=== PATIENT | female | born 1965 | race Caucasian/White ===

== ENCOUNTER 2020-07-22 09:35 | Outpatient (REF) | payer MEDICAID, SELFPAY ==
--- NOTE | 2020-07-22 09:40 | US_ITS ---
EXAMINATION: US DIAGNOSTIC ULTRASOUND BREAST, RIGHT CLINICAL INFORMATION: Reddish nipple discharge. COMPARISON: Mammography of same day. TECHNIQUE: Ultrasound of the breast is performed with real-time damon scale imaging and color Doppler. FINDINGS: Targeted ultrasound evaluation of the retroareolar region of the right breast did not demonstrate abnormal mass or region of distal sound shadowing. There are some prominent ducts present without abnormal filling defects. Results are discussed with the patient at time of visit. US/US breast RT limited IMPRESSION: 1. No suspicious mammographic or ultrasound findings to suggest malignancy. 2. Continued clinical follow up is recommended. ASSESSMENT: BI-RADS 1: Negative
--- NOTE | 2020-07-22 09:40 | MM_ITS ---
EXAMINATION: MM DIAGNOSTIC DIGITAL BREAST TOMOSYNTHESIS, BILATERAL US BREAST LIMITED, RIGHT CLINICAL INFORMATION: Bloody discharge from the right breast. Patient was questioned about her complaint and, even though the left breast was filled out on the question sheet, she repeatedly stated that it was the right breast that had the reddish discharge and not the left. She has stated that she has milky discharge bilaterally which has been for years. The lifetime risk of breast cancer based on the Tyrer-Cuzick Model is 4.4%. COMPARISON: Mammography: 07/10/2019 and studies dating back to 05/05/2011. TECHNIQUE: Digital breast tomosynthesis was performed in both the craniocaudal and mediolateral oblique views along with computer-aided detection (CAD). Synthesized 2D images were generated from the tomosynthesis. Targeted right breast ultrasound. FINDINGS: There are scattered areas of fibroglandular density (ACR BI-RADS breast composition Category b). There are no significant masses, abnormal calcifications, or other abnormalities. Targeted ultrasound evaluation of the retroareolar region of the right breast did not demonstrate abnormal mass or region of distal sound shadowing. There are some prominent ducts present without abnormal filling defects. Results are discussed with the patient at time of visit. MM/MM tomosynthesis diagnostic BI IMPRESSION: 1. No suspicious mammographic or ultrasound findings to suggest malignancy. 2. Continued clinical follow up is recommended. ASSESSMENT: BI-RADS 1: Negative RECOMMENDATION: 1. Patient should be managed based on the clinical impression. Decision to proceed with biopsy should be based on clinical grounds and degree of clinical concern. 2. Otherwise, routine annual screening mammography. This patient's information was entered into a reminder system with a target due date for their next mammogram.
== END 2020-07-22 09:36 | disposition home or self-care (01) ==
LOC: HO.MAMMO 09:35
PROVIDERS: Visit Provider General Practice
DX: N64.52 Nipple discharge (principal)
CPT/HCPCS: 76642; 77062; 77066

== ENCOUNTER → 2020-07-28 11:41 | Outpatient (BNVA) | payer MEDICAID, SELFPAY | PROVIDERS: PCP Internal Medicine; Visit Provider Urology | DX: Z76.89 Persons encountering health services in other specified circumstances (principal) ==

== ENCOUNTER 2020-08-10 14:03 | Outpatient (REF) | payer MEDICAID, SELFPAY ==
--- NOTE | 2020-08-10 14:06 | CT_ITS ---
EXAMINATION: CT ABDOMEN AND PELVIS WITHOUT CONTRAST CLINICAL INFORMATION: Renal stone. COMPARISON: Multiple priors, most recent renal ultrasound dated 03/12/2020. Most recent CT abdomen/pelvis dated 03/16/2019. TECHNIQUE: Multidetector volumetric imaging was performed from the superior aspect of the liver through the pubic symphysis. Sagittal and coronal reformatted images were obtained on the technologist's workstation. This CT examination was performed using dose optimization techniques as appropriate, variously including the following: *Automated exposure control *Adjustment of mA and/or kV according to patient size (this includes techniques or standardized protocols for targeted exams where dose is matched to indication/reason for exam; i.e. extremities or head) *Use of iterative reconstruction technique DLP: 457 mGy-cm FINDINGS: LUNG BASES: Right middle lobe 0.2 cm pulmonary nodule, likely present on the prior examination (axial image 11/19). The visualized lung bases are otherwise clear. LIVER, GALLBLADDER, AND BILIARY TREE: Mildly lobulated hepatic contour, unchanged. Findings can be seen in the setting of cirrhosis. Redemonstration of a subtle right hepatic hyperdensity (axial image ), poorly evaluated without IV contrast. No new hepatic parenchymal lesion or biliary ductal dilatation. Status post cholecystectomy. PANCREAS: Unremarkable. SPLEEN: Stable splenomegaly. Tiny parenchymal calcifications are unchanged. ADRENAL GLANDS: Unremarkable. KIDNEYS AND URETERS: The kidneys are normal in size, shape, and attenuation. Lower pole renal stone measuring 0.9 cm and 1582 Hounsfield units. This is located approximately 7.8 cm from the posterior axillary line and is not significantly changed when compared to the prior examination. There are additional bilateral 0.2 cm renal stones, similar when compared to the prior examination. No ureteral stone. No hydronephrosis or hydroureter. No perinephric stranding. BLADDER: Nondistended and unremarkable. No associated calcification. GASTROINTESTINAL TRACT: Scattered diverticula without evidence of acute diverticulitis. No bowel wall thickening or associated inflammatory change. No small or large bowel obstruction. Unremarkable appendix. ABDOMINAL WALL: No significant hernia is appreciated. LYMPH NODES: The previously seen periportal lymph node has slightly decreased in size now measuring approximately 1.7 x 0.8 cm (previously 2.1 x 0.8 cm). No new or increasing lymphadenopathy. VASCULAR: No abdominal aortic dilatation. Scattered atherosclerotic calcifications. PELVIC VISCERA: The uterus and adnexa are unremarkable. OSSEOUS STRUCTURES: Unremarkable. CT/CT abdomen pelvis wo con IMPRESSION: 1. Bilateral renal stones are redemonstrated with the largest again noted to be in the lower pole of the left kidney measuring up to 0.9 cm. No ureteral or urinary bladder stone. No hydronephrosis or hydroureter. No perinephric stranding. 2. Minimal diverticulosis without evidence of acute diverticulitis. 3. Hepatic cirrhosis. Stable hyperdense foci partially visualized within the right hepatic lobe. Ultrasound or MR imaging could help further evaluate. No new hepatic parenchymal lesion or biliary ductal dilatation. 4. Additional chronic findings are unchanged.
== END 2020-08-10 14:04 | disposition home or self-care (01) ==
LOC: HO.CT 14:03
PROVIDERS: Visit Provider Urology
DX: N20.0 Calculus of kidney (principal)
CPT/HCPCS: 74176

== ENCOUNTER → 2020-08-27 13:34 | Outpatient (BNVA) | payer MEDICAID, SELFPAY | PROVIDERS: PCP Family Medicine; Visit Provider Urology ==

== ENCOUNTER 2020-09-15 06:37 | Day surgery (SDC) | payer MEDICAID, SELFPAY ==
[2020-09-09 10:09] VITALS: BMI 29.2
--- NOTE | 2020-09-14 11:54 | HO.ANESPROP2 ---
Documented by User: Karmen Jossy 09/14/20 12:11 HPI - Anesthesia Eval Consult details Narrative: 55yo F for L ESWL No prev ESWL on record [facility] Active Problems Active Problems: All Active Problems (Updated 07/28/20 @ 13:25 by David Hawkins III, MD) Flank pain (Acute) Renal stones (Acute) Past Medical History Medical History Abdominal distension (gaseous) Anxiety Asthma Benign neoplasm of pituitary gland and craniopharyngeal duct Bipolar disorder Chronic hepatitis C without hepatic coma Cirrhosis Cirrhosis of liver without ascites Depression Diabetes mellitus, insulin dependent (IDDM), uncontrolled Flank pain GERD (gastroesophageal reflux disease) HTN (hypertension) Hyperlipidemia Kidney stone Mononeuritis Obese Other cirrhosis of liver Panic disorder Renal stones Rheumatoid arthritis Type 2 diabetes mellitus without complication Family History Family History Father No problems noted. Mother Diabetes mellitus Sister Diabetes mellitus Brother No problems noted. Paternal Uncle Colon cancer Surgical History Surgical History History of esophagogastroduodenoscopy (EGD) Hx of cholecystectomy Social History Social History Advance Directives Information Provided: No Meds Allergies Allergy/AdvReac Type Severity Reaction Status Date / Time No Known Allergies Allergy Mild NOT Verified 09/15/20 07:23 APPLICABLE Home Medications Medication Instructions Recorded Confirmed Last Taken Type albuterol sulfate 90 mcg/actuation 2 puff INHALATION Q6H PRN 07/28/20 09/09/20 Unknown History aerosol inhaler aspirin 81 mg tablet,delayed 81 mg PO DAILY 07/28/20 09/09/20 09/12/20 History release benzonatate 100 mg capsule 100 mg PO TID 07/28/20 09/09/20 Unknown History cyclobenzaprine 5 mg tablet 10 mg PO TID 07/28/20 09/09/20 Unknown History gabapentin 300 mg capsule 300 mg PO TID 07/28/20 09/09/20 Unknown History lisinopril 40 mg tablet 40 mg PO DAILY 07/28/20 09/09/20 Unknown History loperamide 2 mg tablet 2 mg PO Q6H PRN 07/28/20 09/09/20 Unknown History omeprazole 20 mg capsule,delayed 20 mg PO DAILY 07/28/20 09/09/20 Unknown History release simvastatin 20 mg tablet 20 mg PO DAILY 07/28/20 09/09/20 Unknown History trazodone 100 mg tablet 100 mg PO DAILY 07/28/20 09/09/20 Unknown History Exam Exam Date and Time: September 14, 2020 1154 Height,Weight and Vital Signs: Height 5 ft 2 in Weight 72.575 kg Narrative Narrative: Stress 01/2020 Nondiagnostic EKG d/t baseline abnormality MIBI shows shows nml perfusion without ischemia or infarction Gasted EF 68% during stress and rest Transient ischemic dilation not present Echo 12/2019 LVEF hyperdynamic, EF >70% Severely increased LV wall thickness Elevated filling pressures No signif valve or pericard pathology EKG 12/2019 SB @ 46 LVH with repol abn Assessment and Plan Assessment Anesthesia Assessment: Chart Reviewed Documented by User: Reshma Miller 09/15/20 08:49 PMFSH Past Medical History Medical History Abdominal distension (gaseous) Anxiety Asthma Benign neoplasm of pituitary gland and craniopharyngeal duct Bipolar disorder Chronic hepatitis C without hepatic coma Cirrhosis Cirrhosis of liver without ascites Depression Diabetes mellitus, insulin dependent (IDDM), uncontrolled Flank pain GERD (gastroesophageal reflux disease) HTN (hypertension) Hyperlipidemia Kidney stone Mononeuritis Obese Other cirrhosis of liver Panic disorder Renal stones Rheumatoid arthritis Type 2 diabetes mellitus without complication Family History Family History Father No problems noted. Mother Diabetes mellitus Sister Diabetes mellitus Brother No problems noted. Paternal Uncle Colon cancer Surgical History Surgical History History of esophagogastroduodenoscopy (EGD) Hx of cholecystectomy Social History Social History Advance Directives Information Provided: No Meds Allergies Allergy/AdvReac Type Severity Reaction Status Date / Time No Known Allergies Allergy Mild NOT Verified 09/15/20 07:23 APPLICABLE Home Medications Medication Instructions Recorded Confirmed Last Taken Type albuterol sulfate 90 mcg/actuation 2 puff INHALATION Q6H PRN 07/28/20 09/09/20 Unknown History aerosol inhaler aspirin 81 mg tablet,delayed 81 mg PO DAILY 07/28/20 09/09/20 09/12/20 History release benzonatate 100 mg capsule 100 mg PO TID 07/28/20 09/09/20 Unknown History cyclobenzaprine 5 mg tablet 10 mg PO TID 07/28/20 09/09/20 Unknown History gabapentin 300 mg capsule 300 mg PO TID 07/28/20 09/09/20 Unknown History lisinopril 40 mg tablet 40 mg PO DAILY 07/28/20 09/09/20 Unknown History loperamide 2 mg tablet 2 mg PO Q6H PRN 07/28/20 09/09/20 Unknown History omeprazole 20 mg capsule,delayed 20 mg PO DAILY 07/28/20 09/09/20 Unknown History release simvastatin 20 mg tablet 20 mg PO DAILY 07/28/20 09/09/20 Unknown History trazodone 100 mg tablet 100 mg PO DAILY 07/28/20 09/09/20 Unknown History Exam Airway Mallampati Class: II TM Dist: >3cm Neck ROM: Full Assessment and Plan Assessment Anesthesia Assessment: Anesthesia Plan Discussed and Chart Reviewed Final Anesthetic Review NPO: Yes ASA Class: III Final Preanesthetic Review: No Changes in Pt Med Stat, Meds/Allgs Chart Reviewed, Consent Obtained/Reviewed and Anes Risks/Benef Reviewed Patient Risk: Intermediate Procedure Risk: Low Assessment/Block/Sedation in SS: Assess/Block/Sedation-SS Anesthetic Plan Anesthetic Plan: MAC: Disposition: Standard PACU
--- NOTE | ~2020-09-15 | XR_ITS ---
EXAMINATION: XR ABDOMEN KUB CLINICAL INDICATION: Stones. COMPARISON: CT of 08/10/2020 TECHNIQUE: AP view of the abdomen. FINDINGS: The bowel gas pattern is normal with no evidence of ileus or obstruction. The bones are unremarkable. There is an approximately 9 x 7 mm calcification seen overlying the lower pole of the left kidney. Multiple vascular clips are seen about the mid right abdomen. No calcific densities are seen overlying the expected contour of the right kidney. Psoas margins are intact. No calculi seen along the expected paths of the ureters. XR/XR KUB IMPRESSION: Left nephrolithiasis without significant change.
[2020-09-15 07:17] LABS: Hematocrit 38.2 % (37-47); Mean Corpuscular Hemoglobin 28.3 pg (27.0-33.0); Mean Platelet Volume 9.9 fL (9.4-12.3); Platelet Count 157 X10*3/uL (160-400); Red Cell Distribution Width 12.7 % (11.0-16.0); White Blood Count 6.6 X10*3/uL (4.8-10.8)
[2020-09-15 07:22] LABS: Prothrombin Time 12.1 SEC (10.8-13.0)
[2020-09-15 07:24] LABS: Glucose, Whole Blood 117 mg/dL (60-115)
[2020-09-15 07:26] VITALS: BP 150/90; PULSE 53; RESP 16; TEMP 36.6; O2SAT 97
[2020-09-15] MEDS: Lactated Ringers 1,000 ML 100 ML IVCONT (07:50)
[2020-09-15 07:54] LABS: Alanine Aminotransferase 80 U/L (0-31); Albumin Level 4.1 g/dL (3.5-5.0); Alkaline Phosphatase 151 U/L (39-117); Anion Gap 10 (12-20); Aspartate Amino Transferase 62 U/L (5-31); Bilirubin Total 0.6 mg/dL (0.0-1.0); Blood Urea Nitrogen 12 mg/dL (9-16); Carbon Dioxide 27 mmol/L (22-29); Chloride 107 mmol/L (96-108); Creatinine Clr Calc Pharmacy 54.6; Estimated Glomerular Filt Rate 53; Glucose Fasting 114 mg/dL (60-99); Potassium 3.6 mmol/L (3.3-5.1); Sodium 140 mmol/L (135-145); Total Protein 7.4 g/dL (6.5-8.0)
--- NOTE | 2020-09-15 08:41 | MHC.SHP ---
Pre-Procedural Eval Section A The patient is an INPATIENT: No Changes since office visit: No Cold of Flu in the past 2 weeks, No New Medical Problems, No Changes in Medication and No Patient answered all questions The History & Physical has been completed within 30 days and I have reviewed it.: Yes Section B Chief Complaint: calculus of kidney Allergies: Allergies Allergy/AdvReac Type Severity Reaction Status Date / Time No Known Allergies Allergy Mild NOT Verified 09/15/20 07:23 APPLICABLE Plan Diagnosis/Plan: Unchanged I have reviewed the history and physical and performed a pertinent physical examination on my patient. No changes have occurred unless specified. Left ESWLl
--- NOTE | 2020-09-15 08:44 | PM.OP ---
Brief Operative Note Date of Service: 09/15/20 Pre-op diagnosis: left renal stone 9mm Post-op diagnosis: same Procedure: left ESWL Surgeon: Lee Hubbard MD Anesthesia: MAC Estimated blood loss (mL): 0 Pathology: none sent Condition: stable Disposition: same day
--- NOTE | 2020-09-15 08:54 | W.PM.OPN ---
Operative Note Operative Note Date of Service: 09/15/20 Narrative: PreOperative Diagnosis: left Renal stones Post Operative Diagnosis: left Renal stones Procedure: left ESWL Surgeon: Dr Lee Hubbard Anesthesia: mac/sedation Indications for procedure: They understand ESWL may be a staged procedure and subsequent intervention may be required based on imaging after ESWL. They also understand there is a risk of bleeding, infection, damage to adjacent organs. 9mm left lower pole Procedure: After informed consent was verified the patient was brought to the operating room and placed in a supine position. Anesthesia was performed per protocol. Safety pause time-out was performed. Imaging was in the room and laterality confirmed. ESWL was performed. The 1st 500 shocks were performed at 60 hertz. These were performed with increasing power. Once maximum power was reached the rate was increased to 180 hertz. A total of 2500 shocks were given. Fluoroscopy showed stone disintegration. They tolerated procedure well and was transferred to the recovery area upon completion.
[2020-09-15 09:12] VITALS: BP 140/68; PULSE 75; RESP 16; TEMP 36.1; O2SAT 98
[2020-09-15 09:27] VITALS: BP 138/83; PULSE 65; RESP 18; TEMP 36.6; O2SAT 99
[2020-09-15] MEDS: Phenazopyridine HCL 100 MG TABLET PO (09:41)
--- NOTE | 2020-09-15 10:07 | HO.POSTANES ---
Post Anesthesia Evaluation Post Anesthesia Evaluation Vital Signs: Vital Signs Temp Pulse Resp BP Pulse Ox 09/15/20 09:27 97.8 F 65 18 138/83 99 09/15/20 09:12 97.0 F 75 16 140/68 H 98 09/15/20 07:26 97.8 F 53 16 150/90 H 97 Anesthesia: Monitored Mental Status: Awake Pain Control: Satisfactory Nausea/Vomiting: None Hydration: Adequate Anesthesia-Related Issues: No Anes. Related Issues
== END 2020-09-15 10:33 | disposition home or self-care (01) ==
PROVIDERS: Nurse Practitioner; Visit Provider Urology
PROC: (CPT 50590; principal; 2020-09-15 08:40)
DX: N20.0 Calculus of kidney (principal); I10 Essential (primary) hypertension; E11.9 Type 2 diabetes mellitus without complications; Z79.4 Long term (current) use of insulin; Z79.82 Long term (current) use of aspirin; Z79.899 Other long term (current) drug therapy
CPT/HCPCS: 50590; 36415; 74018; 80053; 82947; 85027; 85610; J1885; J2405; J3010

== ENCOUNTER 2020-10-03 12:38 | Emergency (ER) | payer MEDICAID, SELFPAY ==
--- NOTE | ~2020-10-03 | CT_ITS ---
EXAMINATION: CT ABDOMEN AND PELVIS WITHOUT CONTRAST CLINICAL INFORMATION: Right flank pain. Status post lithotripsy left side COMPARISON: CT abdomen and pelvis 08/10/2020 TECHNIQUE: Multidetector volumetric imaging was performed from the superior aspect of the liver through the pubic symphysis. Sagittal and coronal reformatted images were obtained on the technologist's workstation. This CT examination was performed using dose optimization techniques as appropriate, variously including the following: *Automated exposure control *Adjustment of mA and/or kV according to patient size (this includes techniques or standardized protocols for targeted exams where dose is matched to indication/reason for exam; i.e. extremities or head) *Use of iterative reconstruction technique DLP: 535 mGy-cm FINDINGS: LUNG BASES: The visualized lung bases are unremarkable. There is mild right para cardiac lymph nodes, nonspecific. LIVER, GALLBLADDER, AND BILIARY TREE: The liver is normal in size, lobulated contour, and normal attenuation. No focal hepatic lesion or biliary ductal dilatation is present. The gallbladder has been surgically removed. PANCREAS: Unremarkable. SPLEEN: The spleen is unremarkable with small accessory splenule at the hilum. ADRENAL GLANDS: Unremarkable. KIDNEYS AND URETERS: The kidneys are normal in size, shape, and attenuation. There is a 1.1 cm nonobstructing radiopaque calculi lower pole calyx left kidney. No additional radiopaque calculi seen. There is no hydronephrosis. BLADDER: The bladder is nondistended with mild anterior bladder wall thickening. GASTROINTESTINAL TRACT: There is scattered stool, gas seen throughout the colon without any distention. The small bowel loops are normal caliber. Appendix is normal. There is no evidence of free fluid. No free air seen. ABDOMINAL WALL: No significant hernia is appreciated. LYMPH NODES: Normal. VASCULAR: Unremarkable. PELVIC VISCERA: The uterus is anteverted and appears unremarkable. No adnexal mass seen. There is no free fluid OSSEOUS STRUCTURES: Mild ventral spondylosis lumbar spine. No lytic or sclerotic process seen. CT/CT abdomen pelvis wo con IMPRESSION: 1.1 cm nonobstructing radiopaque calculi lower pole left kidney. There is no caliectasis or hydronephrosis. Gallbladder has been surgically removed. Mild constipation. Normal appendix.
[2020-10-03 12:41] VITALS: BP 166/68; PULSE 50; RESP 16; TEMP 36.8; BMI 29.9
--- NOTE | 2020-10-03 13:08 | ED_ITS ---
HPI - General Adult General Chief complaint: Back Pain/Injury Stated complaint: left flank pain Time Seen by Provider: 10/03/20 12:54 Source: patient Mode of arrival: ambulatory Limitations: no limitations History of Present Illness HPI narrative: Patient comes emergency room complaining of right-sided flank/back pain. Patient states it has been ongoing since the beginning of August. Patient states that on September 14 she had an ESWL on the left side by Dr. Hubbard. Patient has no pain on the left side, however she continues having pain on the right side. Patient denies fever, no chills, no dysuria or hematuria. Patient states the pain is worse, unrelated to movement, nonradiating. Patient states the pain has not changed since the beginning of August, has not gotten any worse or improved. Related Data Home Medications Medication Instructions Recorded Confirmed albuterol sulfate 90 mcg/actuation 2 puff INHALATION Q6H PRN 07/28/20 09/09/20 aerosol inhaler aspirin 81 mg tablet,delayed 81 mg PO DAILY 07/28/20 09/09/20 release benzonatate 100 mg capsule 100 mg PO TID 07/28/20 09/09/20 cyclobenzaprine 5 mg tablet 10 mg PO TID 07/28/20 09/09/20 gabapentin 300 mg capsule 300 mg PO TID 07/28/20 09/09/20 lisinopril 40 mg tablet 40 mg PO DAILY 07/28/20 09/09/20 loperamide 2 mg tablet 2 mg PO Q6H PRN 07/28/20 09/09/20 omeprazole 20 mg capsule,delayed 20 mg PO DAILY 07/28/20 09/09/20 release simvastatin 20 mg tablet 20 mg PO DAILY 07/28/20 09/09/20 trazodone 100 mg tablet 100 mg PO DAILY 07/28/20 09/09/20 Previous Rx's Medication Instructions Recorded tamsulosin 0.4 mg PO BEDTIME #14 cap 09/15/20 tramadol 50 mg PO Q6H PRN #14 tab 09/15/20 cyclobenzaprine 5 mg PO BEDTIME PRN #10 tab 10/03/20 ibuprofen 600 mg PO TID PRN #14 tab 10/03/20 Allergies Allergy/AdvReac Type Severity Reaction Status Date / Time No Known Allergies Allergy Mild NOT Verified 09/15/20 07:23 APPLICABLE Review of Systems Review of Systems: Constitutional : No Weight loss, No Fever, No Chills, No Night Sweats, No Fatigue, No Malaise ENT/Mouth : No Hearing loss, No Ear Pain, No Nasal Congestion, No Sinus Pain, No Hoarseness, No sore throat, No Rhinorrhea, No Swallowing Difficulty Eyes: No Eye Pain, No Swelling, No Redness, No Foreign Body, No Discharge, No Vision Changes Cardiovascular : No Chest Pain, No SOB, No Dyspnea on Exertion, No Orthopnea, No Edema, No Palpitations Respiratory : No Cough, No Sputum, No Wheezing, No Smoke Exposure, No Dyspnea Gastrointestinal : No Nausea, No Vomiting, No Diarrhea, No Constipation, No abdominal Pain, No Hematochezia, No Melena, complaining of right flank pain Genitourinary : no irregular bleeding, No Dysuria, No Urinary Frequency, No Hematuria, No Urinary Incontinence, No Urgency, No Flank Pain, No Urinary Flow Changes, No Hesitancy Musculoskeletal : No joint pain, complaining of right-sided back pain Skin : No Skin Lesions, No rash Neuro : No Weakness, No Numbness, No Paresthesias, No Loss of Consciousness, No Dizziness, No Headache Psych : No Anxiety/Panic, No Depression, No SI/HI/AH/VH, No Social Issues, Heme/Lymph: No Bruising, No Bleeding,No Lymphadenopathy Endocrine : No Polyuria, No Polydipsia, No Temperature Intolerance [facility] Past Medical History Medical History Abdominal distension (gaseous) Anxiety Asthma Benign neoplasm of pituitary gland and craniopharyngeal duct Bipolar disorder Chronic hepatitis C without hepatic coma Cirrhosis Cirrhosis of liver without ascites Depression Diabetes mellitus, insulin dependent (IDDM), uncontrolled Flank pain GERD (gastroesophageal reflux disease) HTN (hypertension) Hyperlipidemia Kidney stone Mononeuritis Obese Other cirrhosis of liver Panic disorder Renal stones Rheumatoid arthritis Type 2 diabetes mellitus without complication Surgical History History of esophagogastroduodenoscopy (EGD) Hx of cholecystectomy Family History Family History Father No problems noted. Mother Diabetes mellitus Sister Diabetes mellitus Brother No problems noted. Paternal Uncle Colon cancer Social History Social History Advance Directives: No Advance Directives Information Provided: No Physical Exam Vital Signs: Vital Signs: Last Vital Signs Temp 98.2 F 10/03/20 12:41 Pulse 48 L 10/03/20 15:14 Resp 16 10/03/20 15:14 BP 174/97 H 10/03/20 15:14 Pulse Ox 97 10/03/20 15:14 Body Mass Index 29.9 Appearance: Alert. Oriented X3. No acute distress. Eyes: Pupils equal, round and reactive to light. ENT: Pharynx normal. Neck: Normal inspection. Neck supple. No lymph nodes noted. No crepitus CVS: Normal heart rate and rhythm. Pulses normal. Normal S1 and S2 Respiratory: No respiratory distress. Breath sounds normal. No Wheezing. No rales Abdomen: Soft and nontender. No rigidity. No distention. good BS x4 Back: Patient able to flex and extend back, pain does not worsen. Negative CVA tenderness Skin: Skin warm and dry. Normal skin color. Normal skin turgor. Extremities: No lower extremity edema. No lower extremity edema. No Lacerations. No Rash Neuro: Oriented X 3. No motor deficit. No sensory deficit. Moving all extermities. No slurred speech. Course Course Course Narrative: I discussed the labs and CT with the patient, it is possible that the patient's source of back pain on the right side is musculoskeletal. I discussed with the patient that she has a 1.1 cm nonobstructing stone in the left kidney, unlikely to be a source of pain Medical Decision Making Lab Data Result diagrams: 10/03/20 13:18 10/03/20 13:18 Labs: Lab Results 10/03/20 10/03/20 10/03/20 Range/Units 13:18 13:18 13:18 WBC 5.5 (4.8-10.8) X10*3/uL RBC 4.53 (4.20-5.50) X10*6/uL Hgb 12.7 (12.0-16.0) g/dl Hct 38.3 (37-47) % MCV 84.5 (80-98) fL MCH 28.0 (27.0-33.0) pg MCHC 33.2 (31.0-35.0) g/dl RDW 12.6 (11.0-16.0) % Plt Count 169 (160-400) X10*3/uL MPV 10.5 (9.4-12.3) fL Immature Gran % (Auto) 0.2 (0.0-0.4) % Neut % (Auto) 47.9 (45-73) % Lymph % (Auto) 39.0 (20-40) % Hale % (Auto) 10.3 (2-11) % Eos % (Auto) 2.2 (0-4) % Baso % (Auto) 0.4 (0-2) % Lymph # (Auto) 2.1 (1.2-4.9) X10*3/uL Hale # (Auto) 0.6 (0.1-1.2) X10*3/uL Eos # (Auto) 0.1 (0.0-0.4) X10*3/uL Baso # (Auto) 0.0 (0.0-0.2) X10*3/uL Abs Immat Gran (auto) 0.01 (0.00-0.03) X10*3/uL Absolute Neuts (auto) 2.6 (2.0-8.3) X10*3/uL Absolute Nucleated RBC 0.000 (0.0-0.012) X10*3/uL Nucleated RBC % (auto) 0.0 (0.0-0.2) /100WBC Sodium 139 (135-145) mmol/L Potassium 4.1 (3.3-5.1) mmol/L Chloride 105 (96-108) mmol/L Carbon Dioxide 28 (22-29) mmol/L Anion Gap 10 L (12-20) BUN 19 H D (9-16) mg/dL Creatinine 1.19 (0.5-1.4) mg/dL Estim Creat Clear Calc 51.1 Estimated GFR 47 Random Glucose 256 H (60-115) mg/dL Calcium 9.0 (8.4-10.2) mg/dL Urine Color YELLOW Urine Appearance HAZY Urine pH 5.5 (5.0-8.0) Ur Specific [place] >= 1.030 H (1.005-1.025) Urine Protein NEG (NEG-TRACE) MG/DL Urine Glucose (UA) NEG (NEG) MG/DL Urine Ketones NEG (NEG) MG/DL Urine Blood NEG (NEG) Urine Nitrite NEG (NEG) Ur Leukocyte Esterase 1+ H (NEG) Urine RBC 0-2 (0) /HPF Urine WBC 1-4 (0-4) /HPF Ur Squamous Epith Cells 4+ /LPF Ur Renal Epithelial Cell 2+ /LPF Urine Bacteria NONE /LPF Imaging Data CT scan - abdomen: Radiologist's impression: FINDINGS: LUNG BASES: The visualized lung bases are unremarkable. There is mild right para cardiac lymph nodes, nonspecific. LIVER, GALLBLADDER, AND BILIARY TREE: The liver is normal in size, lobulated contour, and normal attenuation. No focal hepatic lesion or biliary ductal dilatation is present. The gallbladder has been surgically removed. PANCREAS: Unremarkable. SPLEEN: The spleen is unremarkable with small accessory splenule at the hilum. ADRENAL GLANDS: Unremarkable. KIDNEYS AND URETERS: The kidneys are normal in size, shape, and attenuation. There is a 1.1 cm nonobstructing radiopaque calculi lower pole calyx left kidney. No additional radiopaque calculi seen. There is no hydronephrosis. BLADDER: The bladder is nondistended with mild anterior bladder wall thickening. GASTROINTESTINAL TRACT: There is scattered stool, gas seen throughout the colon without any distention. The small bowel loops are normal caliber. Appendix is normal. There is no evidence of free fluid. No free air seen. ABDOMINAL WALL: No significant hernia is appreciated. LYMPH NODES: Normal. VASCULAR: Unremarkable. PELVIC VISCERA: The uterus is anteverted and appears unremarkable. No adnexal mass seen. There is no free fluid OSSEOUS STRUCTURES: Mild ventral spondylosis lumbar spine. No lytic or sclerotic process seen. CT/CT abdomen pelvis wo con IMPRESSION: 1.1 cm nonobstructing radiopaque calculi lower pole left kidney. There is no caliectasis or hydronephrosis. Gallbladder has been surgically removed. Mild constipation. Normal appendix. Discharge Plan Discharge Clinical Impression: Chronic back pain Qualifiers: Back pain location: low back pain Back pain laterality: right Sciatica presence: without sciatica Qualified Code(s): M54.5 - Low back pain Patient Disposition: Home, Self-Care Instructions: Chronic Back Pain (DC), Lower Back Exercises (ED) Additional Instructions: Please follow-up with your primary care physician tomorrow. If you have any worsening or new symptoms, please return to the emergency room or call 911 Prescriptions: New cyclobenzaprine 5 mg tablet 5 mg PO BEDTIME PRN (Reason: muscle spasm) Qty: 10 RF: 0 ibuprofen 600 mg tablet 600 mg PO TID PRN (Reason: pain) Qty: 14 RF: 0 No Action tramadol 50 mg tablet 50 mg PO Q6H PRN (Reason: pain) Qty: 14 RF: 0 tamsulosin 0.4 mg capsule 0.4 mg PO BEDTIME Qty: 14 RF: 0 cyclobenzaprine 5 mg tablet 10 mg PO TID RF: 0 albuterol sulfate [Ventolin HFA] 90 mcg/actuation HFA aerosol inhaler 2 puff inhalation Q6H PRN (Reason: Shortness Of Breath) RF: 0 loperamide [Imodium A-D] 2 mg tablet 2 mg PO Q6H PRN (Reason: Loose Stool) RF: 0 benzonatate [Tessalon Perles] 100 mg capsule 100 mg PO TID RF: 0 gabapentin 300 mg capsule 300 mg PO TID RF: 0 simvastatin 20 mg tablet 20 mg PO DAILY RF: 0 trazodone 100 mg tablet 100 mg PO DAILY RF: 0 omeprazole 20 mg capsule,delayed release(DR/EC) 20 mg PO DAILY RF: 0 lisinopril 40 mg tablet 40 mg PO DAILY RF: 0 aspirin [Adult Low Dose Aspirin] 81 mg tablet,delayed release (DR/EC) 81 mg PO DAILY RF: 0
[2020-10-03 13:24] LABS: MANUAL DIFF FLAG NO
[2020-10-03 13:25] LABS: Glucose Urine UA NEG (NEG); Leukocyte Esterase Urine 1+ (NEG); Nitrite Urine NEG (NEG); PH 5.5 (5.0-8.0); Specific Gravity - Urine >= 1.030 (1.005-1.025); UACC Culture Trigger YES; Urine Blood NEG (NEG); Urine Ketones NEG (NEG); Urine Protein NEG (NEG-TRACE)
[2020-10-03 13:26] LABS: Basophils Percent Auto 0.4 % (0-2); Eosinophils Absolute Auto 0.1 X10*3/uL (0.0-0.4); Eosinophils Percent Auto 2.2 % (0-4); Hematocrit 38.3 % (37-47); Hemoglobin 12.7 g/dl (12.0-16.0); Imm Gran Abs Auto 0.01 X10*3/uL (0.00-0.03); Imm Gran Pct Auto 0.2 % (0.0-0.4); Lymphocytes Absolute Auto 2.1 X10*3/uL (1.2-4.9); Mean Corpuscular HGB Conc 33.2 g/dl (31.0-35.0); Mean Corpuscular Volume 84.5 fL (80-98); Mean Platelet Volume 10.5 fL (9.4-12.3); Monocytes Absolute Auto 0.6 X10*3/uL (0.1-1.2); Monocytes Percent Auto 10.3 % (2-11); Neutrophils Absolute Auto 2.6 X10*3/uL (2.0-8.3); Neutrophils Percent Auto 47.9 % (45-73); Platelet Count 169 X10*3/uL (160-400); Red Blood Count 4.53 X10*6/uL (4.20-5.50); Red Cell Distribution Width 12.6 % (11.0-16.0); White Blood Count 5.5 X10*3/uL (4.8-10.8)
[2020-10-03 13:42] LABS: Appearance Urine HAZY; Color Urine YELLOW
[2020-10-03 13:47] LABS: Anion Gap 10 (12-20); Blood Urea Nitrogen 19 mg/dL (9-16); Carbon Dioxide 28 mmol/L (22-29); Chloride 105 mmol/L (96-108); Creatinine Clr Calc Pharmacy 51.1; Estimated Glomerular Filt Rate 47; Glucose Random 256 mg/dL (60-115); Potassium 4.1 mmol/L (3.3-5.1); Sodium 139 mmol/L (135-145)
[2020-10-03 14:05] LABS: RBC Urine 0-2 /HPF (0); Renal Epithelial Cells Urine 2+ /LPF; Squamous Epithelial Cell Urine 4+ /LPF
[2020-10-03 15:14] VITALS: BP 174/97; PULSE 48; RESP 16; O2SAT 97
== END 2020-10-03 16:05 | disposition home or self-care (01) ==
PROVIDERS: Emergency Provider Emergency Medicine
DX: R10.9 Unspecified abdominal pain (principal); K59.00 Constipation, unspecified; M54.5 Low back pain; Z79.899 Other long term (current) drug therapy
CPT/HCPCS: 36415; 74176; 80048; 81001; 81003; 85025; 87086; 96374; 99283; 99284

== ENCOUNTER 2020-10-06 13:03 | Outpatient (REF) | payer MEDICAID, SELFPAY ==
[2020-10-06 14:53] LABS: Alanine Aminotransferase 78 U/L (0-31); Albumin Level 4.3 g/dL (3.5-5.0); Alkaline Phosphatase 137 U/L (39-117); Aspartate Amino Transferase 59 U/L (5-31); Bilirubin Direct 0.2 mg/dL (0.0-0.5); Bilirubin Total 0.4 mg/dL (0.0-1.0); Total Protein 7.6 g/dL (6.5-8.0)
[2020-10-07 05:08] LABS: HBS Num1 29.26 mIU/mL (0-7.99); HBc Num1 0.32 S/CO (0.00-0.79); HIV AB/AG Nonreactive (Nonreactive); HIV Num 1 0.08 S/CO (0.00-0.99); Hepatitis B Core Antibody Nonreactive (Nonreactive); ~Hepatitis B Surface Antibody REACTIVE (Nonreactive)
[2020-10-07 05:14] LABS: Hepatitis B Surface Antigen Negative (Negative)
[2020-10-08 04:42] LABS: Hepatitis A Antibody IgG REACTIVE (Nonreactive); ~Hepatitis A Antibody IgG 8.71 S/CO (0.00-0.99)
[2020-10-08 07:57] LABS: HCV RNA PCR Qn 1390000 IU/mL (NOT DETECTED); HCV RNA PCR Qn 6.14 Log IU/mL (NOT DETECTED)
[2020-10-10 11:21] LABS: FIB-ALT 71 U/L (6-29); FIB-Alpha-2-Macroglobulin 216 mg/dL (106-279); FIB-Apolipoprotein A1 168 mg/dL (101-198); FIB-GGT 68 U/L (3-70); FIB-Haptoglobin <8 mg/dL (43-212); FIB-Total Bilirubin 0.4 mg/dL (0.2-1.2); Liver Fibrosis Score 0.59; Liver Fibrosis Stage F3; Nec Inflam Act Grade A2; Nec Inflam Act Score 0.54
[2020-10-13 09:47] LABS: HCV Genotype LiPA 1a
== END 2020-10-06 13:04 | disposition home or self-care (01) ==
LOC: HO.LAB 13:03
PROVIDERS: Visit Provider Internal Medicine
DX: B18.2 Chronic viral hepatitis C (principal)
CPT/HCPCS: 36415; 80076; 81596; 86704; 86706; 86708; 87340; 87389; 87902; 99202

== ENCOUNTER → 2020-10-07 09:28 | Outpatient (BNVA) | payer MEDICAID, SELFPAY | PROVIDERS: Visit Provider Urology | DX: N20.0 Calculus of kidney (principal) | CPT/HCPCS: 99212 ==

== ENCOUNTER → 2020-10-25 09:37 | Day surgery (SDC) | payer MEDICAID, SELFPAY ==
[2020-10-19 11:23] VITALS: BMI 29.9
[2020-10-25 10:44] LABS: Glucose, Whole Blood 146 mg/dL (60-115)
--- NOTE | 2020-10-25 10:47 | P.CONAN_ITS ---
HPI - Anesthesia Eval Consult details Narrative: 55 F p/f urinary stent laser lithotripsy. controlled asthma PMFSH Active Problems Active Problems: All Active Problems (Updated 10/06/20 @ 15:24 by April Michele MD) Hepatitis C (Acute) Flank pain (Acute) Renal stones (Acute) Past Medical History Medical History Abdominal distension (gaseous) Anxiety Asthma Benign neoplasm of pituitary gland and craniopharyngeal duct Bipolar disorder Chronic hepatitis C without hepatic coma Cirrhosis Cirrhosis of liver without ascites Depression Diabetes mellitus, insulin dependent (IDDM), uncontrolled Flank pain GERD (gastroesophageal reflux disease) Hepatitis C HTN (hypertension) Hyperlipidemia Kidney stone Mononeuritis Obese Other cirrhosis of liver Panic disorder Renal stones Rheumatoid arthritis Type 2 diabetes mellitus without complication Family History Family History Father No problems noted. Mother Diabetes mellitus Sister Diabetes mellitus Brother No problems noted. Paternal Uncle Colon cancer Surgical History Surgical History History of esophagogastroduodenoscopy (EGD) Hx of cholecystectomy Hx of lithotripsy Social History Social History Smoking Status: Current every day smoker Cigarettes Per Day: 2 Use of substances other than those prescribed or required for medical reasons: No Advance Directives: No Advance Directives Information Provided: No Advance Directives on File: No Meds Allergies Allergy/AdvReac Type Severity Reaction Status Date / Time No Known Allergies Allergy Mild NOT Verified 10/19/20 11:23 APPLICABLE Active Medications: Current Medications Generic Name Dose Route Start Last Admin Trade Name Freq PRN Reason Stop Dose Admin Lactated Ringer's 1,000 mls @ 50 mls/hr 10/25/20 07:30 Lr IV .Q20H [facility] Home Medications Medication Instructions Recorded Confirmed Last Taken Type albuterol sulfate 90 mcg/actuation 2 puff INHALATION Q6H PRN 07/28/20 10/19/20 Unknown History aerosol inhaler aspirin 81 mg tablet,delayed 81 mg PO DAILY 07/28/20 10/19/20 09/12/20 History release benzonatate 100 mg capsule 100 mg PO TID 07/28/20 10/19/20 Unknown History cyclobenzaprine 5 mg tablet 10 mg PO TID PRN 07/28/20 10/19/20 Unknown History gabapentin 300 mg capsule 300 mg PO TID 07/28/20 10/19/20 Unknown History lisinopril 40 mg tablet 40 mg PO DAILY 07/28/20 10/19/20 Unknown History loperamide 2 mg tablet 2 mg PO Q6H PRN 07/28/20 10/19/20 Unknown History omeprazole 20 mg capsule,delayed 20 mg PO DAILY 07/28/20 10/19/20 Unknown History release simvastatin 20 mg tablet 20 mg PO DAILY 07/28/20 10/19/20 Unknown History trazodone 100 mg tablet 100 mg PO DAILY 07/28/20 10/19/20 Unknown History amlodipine 1 tab PO QAM 10/19/20 10/19/20 Unknown History fluticasone propionate [Flovent 1 puff PO BID 10/19/20 10/19/20 Unknown History HFA] insulin glargine [Lantus U-100 60 unit SUBCUT BEDTIME 10/19/20 10/19/20 Unknown History Insulin] insulin lispro [Humalog U-100 20 unit SUBCUT TIDAC 10/19/20 10/19/20 Unknown History Insulin] insulin lispro [Humalog U-100 SUBCUT 10/19/20 Unknown History Insulin] Exam Exam Date and Time: October 25, 2020 1047 Height,Weight and Vital Signs: Height 5 ft 3 in Weight 76.657 kg Pertinent Lab Results Pertinent Lab Results: Laboratory Tests 10/25/20 10:40 POC Glucose 146 H Airway Mallampati Class: II TM Dist: >3cm Loose/Missing/Broken Teeth: Yes (multiple missing and decayed teeth pending extraction; poor dentition) Heart: RRR Lungs: Apical wheezing Assessment and Plan Assessment Anesthesia Assessment: Anesthesia Plan Discussed and Chart Reviewed Final Anesthetic Review NPO: Yes ASA Class: III Final Preanesthetic Review: No Changes in Pt Med Stat, Meds/Allgs Chart Reviewed, Consent Obtained/Reviewed and Anes Risks/Benef Reviewed (dental injury, asthma exacerbation) Patient Risk: Intermediate Procedure Risk: Low Anesthetic Plan Anesthetic Plan: GA Disposition: Standard PACU
[2020-10-25 10:51] VITALS: BP 159/79; PULSE 73; RESP 16; TEMP 36.8; O2SAT 96
--- NOTE | 2020-10-25 11:22 | PC.NURSE ---
Addendum entered by Margret Velásquez RN 10/25/20 11:23: PVCS. Original Note: SR ON MONITOR.
[2020-10-25] MEDS: levoFLOXacin 500 MG TABLET PO (11:26)
[2020-10-25] MEDS: Lactated Ringers 1,000 ML 50 ML IV (11:27)
[2020-10-25 12:28] LABS: Glucose, Whole Blood 139 mg/dL (60-115)
== END | disposition home or self-care (01) ==
PROVIDERS: Visit Provider Urology
DX: N20.0 Calculus of kidney (principal); Z53.8 Procedure and treatment not carried out for other reasons; E11.9 Type 2 diabetes mellitus without complications; I10 Essential (primary) hypertension
CPT/HCPCS: 82947; J1100; J2405

== ENCOUNTER → 2020-10-26 10:25 | Outpatient (BNVA) | payer MEDICAID, SELFPAY | PROVIDERS: PCP Family Medicine; Visit Provider Nurse Practitioner Family ==

== ENCOUNTER 2020-10-27 10:15 | Outpatient (REF) | payer MEDICAID, SELFPAY ==
--- NOTE | ~2020-10-27 | US_ITS ---
EXAMINATION: US ABDOMEN COMPLETE CLINICAL INFORMATION: Unspecified viral hepatitis C. COMPARISON: CT abdomen pelvis 10/03/2020. X-ray KUB 09/15/2020. Ultrasound renals 03/12/2020 and 10/02/2019. TECHNIQUE: Real-time imaging of the abdominal viscera. FINDINGS: PANCREAS: Normal. ABDOMINAL AORTA: The proximal, mid, and distal segments are normal in caliber. INFERIOR VENA CAVA: Visualized portions are normal. LIVER: Liver measures 16.5 cm in length. The liver is enlarged. The liver contour is normal. There is increased liver echogenicity with mild nodularity. No focal hepatic lesion. There is no intrahepatic biliary duct dilatation seen. GALLBLADDER: Surgically absent. COMMON BILE DUCT: Normal in caliber measuring 1.03 cm in diameter. RIGHT KIDNEY: Normal. No hydronephrosis. No renal calculi or focal parenchymal lesions. The kidney measures 9.4 cm in maximum dimension. LEFT KIDNEY: There are several echogenic stones. Lower pole stone measures 0.60 x 0.45 x 0.53 cm. Two midpole echogenic stones measure 0.2 x 0.21 x 0.20 cm and 0.18 x 0.20 x 0.1 cm. There is no caliectasis or hydronephrosis. No focal parenchymal lesions. The kidney measures 10.6 cm in maximum dimension. SPLEEN: Normal. The spleen measures 11.7 cm in maximum dimension. FREE FLUID: None. US/US abdomen complete IMPRESSION: Three echogenic nonobstructive stones left kidney. Hepatic steatosis with nodular appearance and mild hepatomegaly most suggestive of cirrhosis. Similar findings were seen on the previous ultrasound exam 12/10/2013.
== END 2020-10-27 10:16 | disposition home or self-care (01) ==
LOC: HO.US 10:15
PROVIDERS: Visit Provider Internal Medicine
DX: B19.20 Unspecified viral hepatitis C without hepatic coma (principal)
CPT/HCPCS: 76700

== ENCOUNTER 2020-10-27 10:51 | Emergency (ER) | payer MEDICAID, SELFPAY ==
--- NOTE | ~2020-10-27 | XR_ITS ---
EXAMINATION: XR CHEST CLINICAL INFORMATION: Chest pain and cough COMPARISON: Previous chest x-ray December 2019 TECHNIQUE: Frontal view of the chest was obtained. FINDINGS: The cardiac and mediastinal contours are normal. The lungs are clear. There is no pleural effusion or pneumothorax. There are degenerative changes of the spine. XR/XR chest 1V IMPRESSION: No evidence for acute disease in the chest.
[2020-10-27 11:18] VITALS: BP 175/104; PULSE 58; RESP 19; TEMP 36.6; O2SAT 98; BMI 30.1
--- NOTE | 2020-10-27 11:27 | ECG_ITS ---
Test Reason : CHEST PAIN Blood Pressure : / mmHG Vent. Rate : 056 BPM Atrial Rate : 056 BPM P-R Int : 144 ms QRS Dur : 090 ms QT Int : 442 ms P-R-T Axes : 030 -23 143 degrees QTc Int : 426 ms Sinus bradycardia with occasional Premature ventricular complexes Left ventricular hypertrophy with repolarization abnormality Cannot rule out Septal infarct , age undetermined Abnormal ECG When compared with ECG of 07-JAN-2020 15:27, Premature ventricular complexes are now Present Referred By: Marce Cook Electronically Signed By:Mamadou Zurita
--- NOTE | 2020-10-27 11:28 | ED.GENADULT ---
HPI - General Adult General Chief complaint: General Medical <QUENTIN Jain - Last Filed: 10/27/20 17:17> Stated complaint: cough, chest tightness, difficulty breathing <QUENTIN Jain - Last Filed: 10/27/20 17:17> Time Seen by Provider: 10/27/20 11:26 <QUENTIN Jain - Last Filed: 10/27/20 17:17> Source: patient <QUENTIN Jain - Last Filed: 10/27/20 17:17> Mode of arrival: ambulatory <QUENTIN Jain - Last Filed: 10/27/20 17:17> Limitations: no limitations <QUENTIN Jain Last Filed: 10/27/20 17:17> History of Present Illness HPI narrative: 55 y/o female with significant PMH including hepatitis C cirrhosis, DM, HTN, HLD, kidney stones, PA, anxiety, bipolar, asthma, GERD who presents to the ED from home with 3 day history of cough and chest tightness. She is bringing up white phlegm. She is asking for a chest x-ray to assess for pnuemonia. She was just at outpatient ultrasound for her liver and developed some right sided flank pain during the exam so she came here for evaluation. She denies fever, chills, N/V, abdominal pain, urinary symptoms including dysuria or hematuria. She has a history of kidney stones requiring intervention on the left side in the past, never on the right. Denies trauma. She reports her chest discomfort is her entire chest and mostly when she is coughing. No radiation. Worse with cough, movement and touching her chest wall. She denies difficulty breathing or SOB. <QUENTIN Jain - Last Filed: 10/27/20 17:17> MD complaint: cough and chest discomfort <QUENTIN Jain - Last Filed: 10/27/20 17:17> Onset (ago): day(s) (3) <QUENTIN Jain - Last Filed: 10/27/20 17:17> Location: head, chest and back <QUENTIN Jain Last Filed: 10/27/20 17:17> Radiation: non-radiation <QUENTIN Jain - Last Filed: 10/27/20 17:17> Severity: moderate <QUENTIN Jain - Last Filed: 10/27/20 17:17> Quality: aching and constant <QUENTIN Jain - Last Filed: 10/27/20 17:17> Pain Consistency: constant <QUENTIN Jain - Last Filed: 10/27/20 17:17> Relieving factors: rest <QUENTIN Jain - Last Filed: 10/27/20 17:17> Exacerbating factors: movement <QUENTIN Jain - Last Filed: 10/27/20 17:17> Associated symptoms: chest pain, cough, headaches and malaise <QUENTIN Jain - Last Filed: 10/27/20 17:17> Treatments prior to arrival: none <QUENTIN Jain - Last Filed: 10/27/20 17:17> Related Data Home medications: Home Medications Medication Instructions Recorded Confirmed albuterol sulfate 90 mcg/actuation 2 puff INHALATION Q6H PRN 07/28/20 10/26/20 aerosol inhaler aspirin 81 mg tablet,delayed 81 mg PO DAILY 07/28/20 10/26/20 release benzonatate 100 mg capsule 100 mg PO TID 07/28/20 10/26/20 cyclobenzaprine 5 mg tablet 10 mg PO TID PRN 07/28/20 10/26/20 gabapentin 300 mg capsule 300 mg PO TID 07/28/20 10/26/20 lisinopril 40 mg tablet 40 mg PO DAILY 07/28/20 10/26/20 loperamide 2 mg tablet 2 mg PO Q6H PRN 07/28/20 10/26/20 omeprazole 20 mg capsule,delayed 20 mg PO DAILY 07/28/20 10/26/20 release simvastatin 20 mg tablet 20 mg PO DAILY 07/28/20 10/26/20 trazodone 100 mg tablet 100 mg PO DAILY 07/28/20 10/26/20 amlodipine 1 tab PO QAM 10/19/20 10/26/20 fluticasone propionate [Flovent 1 puff PO BID 10/19/20 10/26/20 HFA] insulin glargine [Lantus U-100 60 unit SUBCUT BEDTIME 10/19/20 10/26/20 Insulin] insulin lispro [Humalog U-100 20 unit SUBCUT TIDAC 10/19/20 10/26/20 Insulin] insulin lispro [Humalog U-100 SUBCUT 10/19/20 10/26/20 Insulin] metoprolol succinate 0.5 tab PO QAM 10/25/20 10/26/20 Previous Rx's Medication Instructions Recorded tamsulosin 0.4 mg PO BEDTIME #14 cap 09/15/20 tramadol 50 mg PO Q6H PRN #14 tab 09/15/20 ibuprofen 600 mg PO TID PRN #14 tab 10/03/20 oxycodone-acetaminophen 5 mg-325 1 tab PO Q8H PRN #14 tab 10/07/20 mg tablet glecaprevir 100 mg-pibrentasvir 40 3 tab PO DAILY 56 Days #168 tab 10/26/20 mg tablet <QUENTIN Jain - Last Filed: 10/27/20 17:17> Allergies/adverse reactions: Allergies Allergy/AdvReac Type Severity Reaction Status Date / Time No Known Allergies Allergy Mild NOT Verified 10/25/20 11:30 APPLICABLE <QUENTIN Jain - Last Filed: 10/27/20 17:17> Review of Systems Review of Systems: Constitutional: No Fever, No Chills ENT/Mouth: No sore throat, No Rhinorrhea, No Swallowing Difficulty Eyes: No Eye Pain, No Swelling, No Redness Cardiovascular: + Chest Pain, No SOB, No Orthopnea, No Edema Respiratory: + Cough, + Sputum, No Wheezing, No dyspnea Gastrointestinal: No Nausea, No Vomiting, No Diarrhea, No abdominal Pain, No Hematochezia, No Melena Genitourinary: No Dysuria, No Urinary Frequency, No Hematuria Musculoskeletal: No joint pain, + Myalgias Skin: No Skin Lesions, No rash Neuro: + Weakness (mild, generalized), No Numbness, No Dizziness, + Headache Psych: No Anxiety/Panic, No Depression Heme/Lymph: No Bruising, No Lymphadenopathy Endocrine: No Polyuria, No Polydipsia <QUENTIN Jain - Last Filed: 10/27/20 17:17> [facility] Past Medical History Attestation statement: The following information was validated with the patient. <QUENTIN Jain - Last Filed: 10/27/20 17:17> Medical History: Medical History Abdominal distension (gaseous) Anxiety Asthma Asthma Benign neoplasm of pituitary gland and craniopharyngeal duct Bipolar disorder Chronic hepatitis C without hepatic coma Cirrhosis Cirrhosis of liver without ascites Depression Diabetes mellitus, insulin dependent (IDDM), uncontrolled Flank pain GERD (gastroesophageal reflux disease) Hepatitis C HTN (hypertension) Hyperlipidemia Kidney stone Mononeuritis Obese Other cirrhosis of liver Panic disorder Renal stones Rheumatoid arthritis Type 2 diabetes mellitus without complication <QUENTIN Jain - Last Filed: 10/27/20 17:17> Surgical History: Surgical History History of esophagogastroduodenoscopy (EGD) Hx of cholecystectomy Hx of lithotripsy <QUENTIN Jain - Last Filed: 10/27/20 17:17> Family History Family History: Family History Father No problems noted. Mother Diabetes mellitus Sister Diabetes mellitus Brother No problems noted. Paternal Uncle Colon cancer <QUENTIN Jain - Last Filed: 10/27/20 17:17> Social History Social History: Social History Smoking Status: Current every day smoker Cigarettes Per Day: 2 Advance Directives: No Advance Directives Information Provided: No <QUENTIN Jain - Last Filed: 10/27/20 17:17> Physical Exam Vital Signs: Vital Signs: Last Vital Signs Temp 98.6 F 10/27/20 17:51 Pulse 71 10/27/20 18:00 Resp 20 10/27/20 18:00 BP 166/91 H 10/27/20 17:51 Pulse Ox 99 10/27/20 17:51 Body Mass Index 30.1 Appearance: Alert. Oriented X3. No acute distress. Eyes: Pupils equal, round and reactive to light. ENT: Pharynx normal. Neck: Normal inspection. Neck supple. CVS: Normal heart rate and rhythm. Pulses normal. Normal S1S2. Respiratory: No respiratory distress. Breath sounds normal. Anterior chest wall tenderness throughout, mild. Abdomen: Softly distended and nontender. +BS x4. Mild CVA tenderness on the right. Skin: Skin warm and dry. Normal skin color. Normal skin turgor. No rashes. Extremities: No lower extremity edema. Negative Davy's sign. Neuro: Oriented X 3. No motor deficit. No sensory deficit. <QUENTIN Jain - Last Filed: 10/27/20 17:17> Vital Signs: Last Vital Signs Temp 98.6 F 10/27/20 17:51 Pulse 71 10/27/20 18:00 Resp 20 10/27/20 18:00 BP 166/91 H 10/27/20 17:51 Pulse Ox 99 10/27/20 17:51 Body Mass Index 30.1 <Mervat Mo NP - Last Filed: 10/27/20 18:28> Course Course Course Narrative: 55 y/o female with history of HCV cirrhosis, asthma, kidney stones who presents with 3 days of cough/chest discomfort as well as right flank pain that started today. Concern for possible COVID-19 vs pneumonia. Doubt her flank pain is due to kidney stones. Her abdominal ultrasound earlier today included the kidneys, radiology is aware that read is needed today. Will hold off on CT scan for now. She is hemodynamically stable with no respiratory distress or hypoxia. <QUENTIN Jain - Last Filed: 10/27/20 17:17> Second troponin 142 which is an improvement from 154. Prior provider discussed this case with Cardiology. Plan of care is to discharge home for prior providers instructions. <Mervat Mo NP - Last Filed: 10/27/20 18:28> Reevaluation(s) Reevaluation #1: Delay in lab work being obtained due to staffing shortage. CXR is negative. Abd U/S done earlier today Three echogenic nonobstructive stones left kidney. Hepatic steatosis with nodular appearance and mild hepatomegaly most suggestive of cirrhosis. Similar findings were seen on the previous ultrasound exam 12/10/2013. NO kidney stones on the right, no hydronephrosis noted. Urine in negative. Etiology of her flank pain is less liekly urologic and more likely due to the ultrasound exam. <QUENTIN Jain - Last Filed: 10/27/20 17:17> Reevaluation #2: Labs showing baseline transaminitis and elevation of alk phos which are chronic. Her troponin is 152.6 with NO new EKG changes. Will plan for 3 hour repeat. Upon review it appears her prior troponin levels were in similar range. This was discussed with Dr. Zurita - some patient's can have chronically elevated troponin levels with cell turnover that is not consistent with myocardial ischemia. <QUENTIN Jain - Last Filed: 10/27/20 17:17> Medical Decision Making Lab Data Result diagrams: : 10/27/20 14:03 10/27/20 14:04 <QUENTIN Jain - Last Filed: 10/27/20 17:17> Labs: Lab Results 10/27/20 10/27/20 10/27/20 Range/Units 14:03 14:03 14:03 WBC 4.3 L (4.8-10.8) X10*3/uL RBC 4.46 (4.20-5.50) X10*6/uL Hgb 12.5 (12.0-16.0) g/dl Hct 37.6 (37-47) % MCV 84.3 (80-98) fL MCH 28.0 (27.0-33.0) pg MCHC 33.2 (31.0-35.0) g/dl RDW 12.5 (11.0-16.0) % Plt Count 144 L (160-400) X10*3/uL MPV 10.3 (9.4-12.3) fL Immature Gran % (Auto) 0.2 (0.0-0.4) % Neut % (Auto) 33.8 L (45-73) % Lymph % (Auto) 45.9 H (20-40) % [place] % (Auto) 18.4 H (2-11) % Eos % (Auto) 1.2 (0-4) % Baso % (Auto) 0.5 (0-2) % Lymph # (Auto) 2.0 (1.2-4.9) X10*3/uL [place] # (Auto) 0.8 (0.1-1.2) X10*3/uL Eos # (Auto) 0.1 (0.0-0.4) X10*3/uL Baso # (Auto) 0.0 (0.0-0.2) X10*3/uL Abs Immat Gran (auto) 0.01 (0.00-0.03) X10*3/uL Absolute Neuts (auto) 1.5 L (2.0-8.3) X10*3/uL Absolute Nucleated RBC 0.000 (0.0-0.012) X10*3/uL Nucleated RBC % (auto) 0.0 (0.0-0.2) /100WBC Smear Tech's Comments Not Reportable Hold Blue Top SEE NOTE Sodium (135-145) mmol/L Potassium (3.3-5.1) mmol/L Chloride (96-108) mmol/L Carbon Dioxide (22-29) mmol/L Anion Gap (12-20) BUN (9-16) mg/dL Creatinine (0.5-1.4) mg/dL Estim Creat Clear Calc Estimated GFR POC Glucose (60-115) mg/dL Random Glucose (60-115) mg/dL Calcium (8.4-10.2) mg/dL Magnesium (1.6-2.6) mg/dL Total Bilirubin (0.0-1.0) mg/dL Direct Bilirubin (0.0-0.5) mg/dL AST (5-31) U/L ALT (0-31) U/L Alkaline Phosphatase (39-117) U/L Troponin I High Sens (<3.5-17.0) ng/L B-Natriuretic Peptide (<100) pg/mL Total Protein (6.5-8.0) g/dL Albumin (3.5-5.0) g/dL Lipase (8-78) U/L Procalcitonin ng/mL Urine Color Urine Appearance Urine pH (5.0-8.0) Ur Specific [place] (1.005-1.025) Urine Protein (NEG-TRACE) MG/DL Urine Glucose (UA) (NEG) MG/DL Urine Ketones (NEG) MG/DL Urine Blood (NEG) Urine Nitrite (NEG) Ur Leukocyte Esterase (NEG) Coronavirus (PCR) POSITIVE A (Negative) Influenza Type A (PCR) NEGATIVE (Negative) Influenza Type B (PCR) NEGATIVE (Negative) RSV RNA Qual (PCR) NEGATIVE (Negative) 10/27/20 10/27/20 10/27/20 Range/Units 14:04 14:04 14:04 WBC (4.8-10.8) X10*3/uL RBC (4.20-5.50) X10*6/uL Hgb (12.0-16.0) g/dl Hct (37-47) % MCV (80-98) fL MCH (27.0-33.0) pg MCHC (31.0-35.0) g/dl RDW (11.0-16.0) % Plt Count (160-400) X10*3/uL MPV (9.4-12.3) fL Immature Gran % (Auto) (0.0-0.4) % Neut % (Auto) (45-73) % Lymph % (Auto) (20-40) % [place] % (Auto) (2-11) % Eos % (Auto) (0-4) % Baso % (Auto) (0-2) % Lymph # (Auto) (1.2-4.9) X10*3/uL [place] # (Auto) (0.1-1.2) X10*3/uL Eos # (Auto) (0.0-0.4) X10*3/uL Baso # (Auto) (0.0-0.2) X10*3/uL Abs Immat Gran (auto) (0.00-0.03) X10*3/uL Absolute Neuts (auto) (2.0-8.3) X10*3/uL Absolute Nucleated RBC (0.0-0.012) X10*3/uL Nucleated RBC % (auto) (0.0-0.2) /100WBC Smear Tech's Comments Hold Blue Top Sodium 140 (135-145) mmol/L Potassium 3.8 (3.3-5.1) mmol/L Chloride 104 (96-108) mmol/L Carbon Dioxide 27 (22-29) mmol/L Anion Gap 13 (12-20) BUN 12 (9-16) mg/dL Creatinine 0.93 (0.5-1.4) mg/dL Estim Creat Clear Calc 65.6 Estimated GFR > 60 POC Glucose (60-115) mg/dL Random Glucose 157 H D (60-115) mg/dL Calcium 8.8 (8.4-10.2) mg/dL Magnesium 2.1 (1.6-2.6) mg/dL Total Bilirubin 0.4 (0.0-1.0) mg/dL Direct Bilirubin 0.2 (0.0-0.5) mg/dL AST 67 H (5-31) U/L ALT 96 H (0-31) U/L Alkaline Phosphatase 155 H (39-117) U/L Troponin I High Sens 152.6 H (<3.5-17.0) ng/L B-Natriuretic Peptide 40 (<100) pg/mL Total Protein 7.3 (6.5-8.0) g/dL Albumin 4.0 (3.5-5.0) g/dL Lipase 25 (8-78) U/L Procalcitonin 0.11 ng/mL Urine Color Urine Appearance Urine pH (5.0-8.0) Ur Specific [place] (1.005-1.025) Urine Protein (NEG-TRACE) MG/DL Urine Glucose (UA) (NEG) MG/DL Urine Ketones (NEG) MG/DL Urine Blood (NEG) Urine Nitrite (NEG) Ur Leukocyte Esterase (NEG) Coronavirus (PCR) (Negative) Influenza Type A (PCR) (Negative) Influenza Type B (PCR) (Negative) RSV RNA Qual (PCR) (Negative) 10/27/20 10/27/20 10/27/20 Range/Units 15:01 17:35 17:48 WBC (4.8-10.8) X10*3/uL RBC (4.20-5.50) X10*6/uL Hgb (12.0-16.0) g/dl Hct (37-47) % MCV (80-98) fL MCH (27.0-33.0) pg MCHC (31.0-35.0) g/dl RDW (11.0-16.0) % Plt Count (160-400) X10*3/uL MPV (9.4-12.3) fL Immature Gran % (Auto) (0.0-0.4) % Neut % (Auto) (45-73) % Lymph % (Auto) (20-40) % [place] % (Auto) (2-11) % Eos % (Auto) (0-4) % Baso % (Auto) (0-2) % Lymph # (Auto) (1.2-4.9) X10*3/uL [place] # (Auto) (0.1-1.2) X10*3/uL Eos # (Auto) (0.0-0.4) X10*3/uL Baso # (Auto) (0.0-0.2) X10*3/uL Abs Immat Gran (auto) (0.00-0.03) X10*3/uL Absolute Neuts (auto) (2.0-8.3) X10*3/uL Absolute Nucleated RBC (0.0-0.012) X10*3/uL Nucleated RBC % (auto) (0.0-0.2) /100WBC Smear Tech's Comments Hold Blue Top Sodium (135-145) mmol/L Potassium (3.3-5.1) mmol/L Chloride (96-108) mmol/L Carbon Dioxide (22-29) mmol/L Anion Gap (12-20) BUN (9-16) mg/dL Creatinine (0.5-1.4) mg/dL Estim Creat Clear Calc Estimated GFR POC Glucose 115 (60-115) mg/dL Random Glucose (60-115) mg/dL Calcium (8.4-10.2) mg/dL Magnesium (1.6-2.6) mg/dL Total Bilirubin (0.0-1.0) mg/dL Direct Bilirubin (0.0-0.5) mg/dL AST (5-31) U/L ALT (0-31) U/L Alkaline Phosphatase (39-117) U/L Troponin I High Sens 144.1 H (<3.5-17.0) ng/L B-Natriuretic Peptide (<100) pg/mL Total Protein (6.5-8.0) g/dL Albumin (3.5-5.0) g/dL Lipase (8-78) U/L Procalcitonin ng/mL Urine Color YELLOW Urine Appearance CLEAR Urine pH 6.0 (5.0-8.0) Ur Specific [place] 1.015 (1.005-1.025) Urine Protein NEG (NEG-TRACE) MG/DL Urine Glucose (UA) NEG (NEG) MG/DL Urine Ketones NEG (NEG) MG/DL Urine Blood NEG (NEG) Urine Nitrite NEG (NEG) Ur Leukocyte Esterase NEG (NEG) Coronavirus (PCR) (Negative) Influenza Type A (PCR) (Negative) Influenza Type B (PCR) (Negative) RSV RNA Qual (PCR) (Negative) <QUENTIN Jain - Last Filed: 10/27/20 17:17> Lab Results 10/27/20 10/27/20 10/27/20 Range/Units 14:03 14:03 14:03 WBC 4.3 L (4.8-10.8) X10*3/uL RBC 4.46 (4.20-5.50) X10*6/uL Hgb 12.5 (12.0-16.0) g/dl Hct 37.6 (37-47) % MCV 84.3 (80-98) fL MCH 28.0 (27.0-33.0) pg MCHC 33.2 (31.0-35.0) g/dl RDW 12.5 (11.0-16.0) % Plt Count 144 L (160-400) X10*3/uL MPV 10.3 (9.4-12.3) fL Immature Gran % (Auto) 0.2 (0.0-0.4) % Neut % (Auto) 33.8 L (45-73) % Lymph % (Auto) 45.9 H (20-40) % [place] % (Auto) 18.4 H (2-11) % Eos % (Auto) 1.2 (0-4) % Baso % (Auto) 0.5 (0-2) % Lymph # (Auto) 2.0 (1.2-4.9) X10*3/uL [place] # (Auto) 0.8 (0.1-1.2) X10*3/uL Eos # (Auto) 0.1 (0.0-0.4) X10*3/uL Baso # (Auto) 0.0 (0.0-0.2) X10*3/uL Abs Immat Gran (auto) 0.01 (0.00-0.03) X10*3/uL Absolute Neuts (auto) 1.5 L (2.0-8.3) X10*3/uL Absolute Nucleated RBC 0.000 (0.0-0.012) X10*3/uL Nucleated RBC % (auto) 0.0 (0.0-0.2) /100WBC Smear Tech's Comments Not Reportable Hold Blue Top SEE NOTE Sodium (135-145) mmol/L Potassium (3.3-5.1) mmol/L Chloride (96-108) mmol/L Carbon Dioxide (22-29) mmol/L Anion Gap (12-20) BUN (9-16) mg/dL Creatinine (0.5-1.4) mg/dL Estim Creat Clear Calc Estimated GFR POC Glucose (60-115) mg/dL Random Glucose (60-115) mg/dL Calcium (8.4-10.2) mg/dL Magnesium (1.6-2.6) mg/dL Total Bilirubin (0.0-1.0) mg/dL Direct Bilirubin (0.0-0.5) mg/dL AST (5-31) U/L ALT (0-31) U/L Alkaline Phosphatase (39-117) U/L Troponin I High Sens (<3.5-17.0) ng/L B-Natriuretic Peptide (<100) pg/mL Total Protein (6.5-8.0) g/dL Albumin (3.5-5.0) g/dL Lipase (8-78) U/L Procalcitonin ng/mL Urine Color Urine Appearance Urine pH (5.0-8.0) Ur Specific [place] (1.005-1.025) Urine Protein (NEG-TRACE) MG/DL Urine Glucose (UA) (NEG) MG/DL Urine Ketones (NEG) MG/DL Urine Blood (NEG) Urine Nitrite (NEG) Ur Leukocyte Esterase (NEG) Coronavirus (PCR) POSITIVE A (Negative) Influenza Type A (PCR) NEGATIVE (Negative) Influenza Type B (PCR) NEGATIVE (Negative) RSV RNA Qual (PCR) NEGATIVE (Negative) 10/27/20 10/27/20 10/27/20 Range/Units 14:04 14:04 14:04 WBC (4.8-10.8) X10*3/uL RBC (4.20-5.50) X10*6/uL Hgb (12.0-16.0) g/dl Hct (37-47) % MCV (80-98) fL MCH (27.0-33.0) pg MCHC (31.0-35.0) g/dl RDW (11.0-16.0) % Plt Count (160-400) X10*3/uL MPV (9.4-12.3) fL Immature Gran % (Auto) (0.0-0.4) % Neut % (Auto) (45-73) % Lymph % (Auto) (20-40) % [place] % (Auto) (2-11) % Eos % (Auto) (0-4) % Baso % (Auto) (0-2) % Lymph # (Auto) (1.2-4.9) X10*3/uL [place] # (Auto) (0.1-1.2) X10*3/uL Eos # (Auto) (0.0-0.4) X10*3/uL Baso # (Auto) (0.0-0.2) X10*3/uL Abs Immat Gran (auto) (0.00-0.03) X10*3/uL Absolute Neuts (auto) (2.0-8.3) X10*3/uL Absolute Nucleated RBC (0.0-0.012) X10*3/uL Nucleated RBC % (auto) (0.0-0.2) /100WBC Smear Tech's Comments Hold Blue Top Sodium 140 (135-145) mmol/L Potassium 3.8 (3.3-5.1) mmol/L Chloride 104 (96-108) mmol/L Carbon Dioxide 27 (22-29) mmol/L Anion Gap 13 (12-20) BUN 12 (9-16) mg/dL Creatinine 0.93 (0.5-1.4) mg/dL Estim Creat Clear Calc 65.6 Estimated GFR > 60 POC Glucose (60-115) mg/dL Random Glucose 157 H D (60-115) mg/dL Calcium 8.8 (8.4-10.2) mg/dL Magnesium 2.1 (1.6-2.6) mg/dL Total Bilirubin 0.4 (0.0-1.0) mg/dL Direct Bilirubin 0.2 (0.0-0.5) mg/dL AST 67 H (5-31) U/L ALT 96 H (0-31) U/L Alkaline Phosphatase 155 H (39-117) U/L Troponin I High Sens 152.6 H (<3.5-17.0) ng/L B-Natriuretic Peptide 40 (<100) pg/mL Total Protein 7.3 (6.5-8.0) g/dL Albumin 4.0 (3.5-5.0) g/dL Lipase 25 (8-78) U/L Procalcitonin 0.11 ng/mL Urine Color Urine Appearance Urine pH (5.0-8.0) Ur Specific [place] (1.005-1.025) Urine Protein (NEG-TRACE) MG/DL Urine Glucose (UA) (NEG) MG/DL Urine Ketones (NEG) MG/DL Urine Blood (NEG) Urine Nitrite (NEG) Ur Leukocyte Esterase (NEG) Coronavirus (PCR) (Negative) Influenza Type A (PCR) (Negative) Influenza Type B (PCR) (Negative) RSV RNA Qual (PCR) (Negative) 10/27/20 10/27/20 10/27/20 Range/Units 15:01 17:35 17:48 WBC (4.8-10.8) X10*3/uL RBC (4.20-5.50) X10*6/uL Hgb (12.0-16.0) g/dl Hct (37-47) % MCV (80-98) fL MCH (27.0-33.0) pg MCHC (31.0-35.0) g/dl RDW (11.0-16.0) % Plt Count (160-400) X10*3/uL MPV (9.4-12.3) fL Immature Gran % (Auto) (0.0-0.4) % Neut % (Auto) (45-73) % Lymph % (Auto) (20-40) % [place] % (Auto) (2-11) % Eos % (Auto) (0-4) % Baso % (Auto) (0-2) % Lymph # (Auto) (1.2-4.9) X10*3/uL [place] # (Auto) (0.1-1.2) X10*3/uL Eos # (Auto) (0.0-0.4) X10*3/uL Baso # (Auto) (0.0-0.2) X10*3/uL Abs Immat Gran (auto) (0.00-0.03) X10*3/uL Absolute Neuts (auto) (2.0-8.3) X10*3/uL Absolute Nucleated RBC (0.0-0.012) X10*3/uL Nucleated RBC % (auto) (0.0-0.2) /100WBC Smear Tech's Comments Hold Blue Top Sodium (135-145) mmol/L Potassium (3.3-5.1) mmol/L Chloride (96-108) mmol/L Carbon Dioxide (22-29) mmol/L Anion Gap (12-20) BUN (9-16) mg/dL Creatinine (0.5-1.4) mg/dL Estim Creat Clear Calc Estimated GFR POC Glucose 115 (60-115) mg/dL Random Glucose (60-115) mg/dL Calcium (8.4-10.2) mg/dL Magnesium (1.6-2.6) mg/dL Total Bilirubin (0.0-1.0) mg/dL Direct Bilirubin (0.0-0.5) mg/dL AST (5-31) U/L ALT (0-31) U/L Alkaline Phosphatase (39-117) U/L Troponin I High Sens 144.1 H (<3.5-17.0) ng/L B-Natriuretic Peptide (<100) pg/mL Total Protein (6.5-8.0) g/dL Albumin (3.5-5.0) g/dL Lipase (8-78) U/L Procalcitonin ng/mL Urine Color YELLOW Urine Appearance CLEAR Urine pH 6.0 (5.0-8.0) Ur Specific [place] 1.015 (1.005-1.025) Urine Protein NEG (NEG-TRACE) MG/DL Urine Glucose (UA) NEG (NEG) MG/DL Urine Ketones NEG (NEG) MG/DL Urine Blood NEG (NEG) Urine Nitrite NEG (NEG) Ur Leukocyte Esterase NEG (NEG) Coronavirus (PCR) (Negative) Influenza Type A (PCR) (Negative) Influenza Type B (PCR) (Negative) RSV RNA Qual (PCR) (Negative) <Candy Chepe, [employer] - Last Filed: 10/27/20 18:28> ECG Data Attestation: I personally reviewed and interpreted this ECG as follows: <QUENTIN Jain - Last Filed: 10/27/20 17:17> Interpretation: sinus bradycardia, HR 56 bpm, occasional PVC's, normal [place] interval, normal QTc, no ST segment elevation. <QUENTIN Jain - Last Filed: 10/27/20 17:17> Discharge Plan Discharge Clinical Impression: COVID-19, Elevated troponin <QUENTIN Jain - Last Filed: 10/27/20 17:17> Patient Disposition: Home, Self-Care <QUENTIN Jain - Last Filed: 10/27/20 17:17> Instructions: COVID-19 (Coronavirus Disease 2019) (ED) <QUENTNI Jain - Last Filed: 10/27/20 17:17> Additional Instructions: You were found to be COVID-19 POSITIVE today. Your chest x-ray and oxygen levels were normal. Rest. Drink plenty of fluids. Do not go out in public for the next 10 days. Take over the counter cold/flu medications as needed for your symptoms. Take Tylenol and/or Motrin as needed for fevers and body aches. Follow up with your doctor this week. If you shortness of breath worsens , if you develop difficulty breathing or any other concerning symptom come back to the ER for further evaluation. <QUENTIN Jain - Last Filed: 10/27/20 17:17> Prescriptions: No Action Mavyret 100-40 mg tablet 3 tab PO DAILY 56 Days Qty: 168 RF: 0 tramadol 50 mg tablet 50 mg PO Q6H PRN (Reason: pain) Qty: 14 RF: 0 tamsulosin 0.4 mg capsule 0.4 mg PO BEDTIME Qty: 14 RF: 0 ibuprofen 600 mg tablet 600 mg PO TID PRN (Reason: pain) Qty: 14 RF: 0 Lantus U-100 Insulin 100 unit/mL solution 60 unit subcut BEDTIME RF: 0 amlodipine 5 mg tablet 1 tab PO QAM RF: 0 Flovent HFA 220 mcg/actuation HFA aerosol inhaler 1 puff PO BID RF: 0 insulin lispro [Humalog U-100 Insulin] 100 unit/mL solution 20 unit subcut TIDAC RF: 0 insulin lispro [Humalog U-100 Insulin] 100 unit/mL solution subcut RF: 0 metoprolol succinate 25 mg tablet extended release 24 hr 0.5 tab PO QAM RF: 0 cyclobenzaprine 5 mg tablet 10 mg PO TID PRN (Reason: Muscle Spasm) RF: 0 albuterol sulfate [Ventolin HFA] 90 mcg/actuation HFA aerosol inhaler 2 puff inhalation Q6H PRN (Reason: Shortness Of Breath) RF: 0 loperamide [Imodium A-D] 2 mg tablet 2 mg PO Q6H PRN (Reason: Loose Stool) RF: 0 benzonatate [Tessalon Perles] 100 mg capsule 100 mg PO TID RF: 0 gabapentin 300 mg capsule 300 mg PO TID RF: 0 simvastatin 20 mg tablet 20 mg PO DAILY RF: 0 trazodone 100 mg tablet 100 mg PO DAILY RF: 0 omeprazole 20 mg capsule,delayed release(DR/EC) 20 mg PO DAILY RF: 0 lisinopril 40 mg tablet 40 mg PO DAILY RF: 0 aspirin [Adult Low Dose Aspirin] 81 mg tablet,delayed release (DR/EC) 81 mg PO DAILY RF: 0 oxycodone-acetaminophen [Percocet] 5-325 mg tablet 1 tab PO Q8H PRN (Reason: pain) Qty: 14 RF: 0 <QUENTIN Jain - Last Filed: 10/27/20 17:17>
[2020-10-27 14:00] VITALS: BP 132/61; PULSE 51
[2020-10-27 14:14] LABS: Imm Gran Abs Auto 0.01 X10*3/uL (0.00-0.03); Imm Gran Pct Auto 0.2 % (0.0-0.4); MANUAL DIFF FLAG SCAN; Mean Platelet Volume 10.3 fL (9.4-12.3); PLT CLUMP 1; Red Cell Distribution Width 12.5 % (11.0-16.0); SCAN SMEAR FLAG 1
[2020-10-27 14:16] LABS: Basophils Percent Auto 0.5 % (0-2); Eosinophils Absolute Auto 0.1 X10*3/uL (0.0-0.4); Eosinophils Percent Auto 1.2 % (0-4); Hematocrit 37.6 % (37-47); Hemoglobin 12.5 g/dl (12.0-16.0); Lymphocytes Percent Auto 45.9 % (20-40); Mean Corpuscular HGB Conc 33.2 g/dl (31.0-35.0); Mean Corpuscular Volume 84.3 fL (80-98); Monocytes Absolute Auto 0.8 X10*3/uL (0.1-1.2); Monocytes Percent Auto 18.4 % (2-11); Neutrophils Absolute Auto 1.5 X10*3/uL (2.0-8.3); Neutrophils Percent Auto 33.8 % (45-73); Platelet Count 144 X10*3/uL (160-400); Red Blood Count 4.46 X10*6/uL (4.20-5.50); White Blood Count 4.3 X10*3/uL (4.8-10.8)
[2020-10-27 14:43] LABS: Alanine Aminotransferase 96 U/L (0-31); Alkaline Phosphatase 155 U/L (39-117); Anion Gap 13 (12-20); Aspartate Amino Transferase 67 U/L (5-31); Bilirubin Direct 0.2 mg/dL (0.0-0.5); Bilirubin Total 0.4 mg/dL (0.0-1.0); Blood Urea Nitrogen 12 mg/dL (9-16); Calcium 8.8 mg/dL (8.4-10.2); Carbon Dioxide 27 mmol/L (22-29); Chloride 104 mmol/L (96-108); Creatinine Clr Calc Pharmacy 65.6; Estimated Glomerular Filt Rate > 60; Glucose Random 157 mg/dL (60-115); Lipase 25 U/L (8-78); Magnesium 2.1 mg/dL (1.6-2.6); Potassium 3.8 mmol/L (3.3-5.1); Sodium 140 mmol/L (135-145); Total Protein 7.3 g/dL (6.5-8.0)
[2020-10-27 14:54] LABS: B Type Natriuretic Peptide 40 pg/mL (<100); Troponin-I High Sensitivity 152.6 ng/L (<3.5-17.0)
[2020-10-27 15:01] LABS: Procalcitonin 0.11 ng/mL
[2020-10-27 15:15] LABS: Glucose Urine UA NEG (NEG); Leukocyte Esterase Urine NEG (NEG); Nitrite Urine NEG (NEG); Specific Gravity - Urine 1.015 (1.005-1.025); Urine Blood NEG (NEG); Urine Ketones NEG (NEG); Urine Protein NEG (NEG-TRACE)
[2020-10-27 15:17] LABS: Influenza A PCR NEGATIVE (Negative); Influenza B PCR NEGATIVE (Negative); Resp Syncy Virus RNA Qual PCR NEGATIVE (Negative); SARS COV2 PCR INHOUSE POSITIVE (Negative)
[2020-10-27 15:23] LABS: Appearance Urine CLEAR; Color Urine YELLOW
[2020-10-27 15:54] VITALS: BP 164/91; PULSE 64; RESP 18; TEMP 37; O2SAT 98
[2020-10-27] MEDS: Acetaminophen 325 MG TABLET 650 MG PO (17:46)
[2020-10-27 17:51] VITALS: BP 166/91; PULSE 54; RESP 16; TEMP 37; O2SAT 99
[2020-10-27 17:55] LABS: Glucose, Whole Blood 115 mg/dL (60-115)
[2020-10-27 18:00] VITALS: PULSE 71; RESP 20
[2020-10-27 18:28] LABS: Troponin-I High Sensitivity 144.1 ng/L (<3.5-17.0)
== END 2020-10-27 18:54 | disposition home or self-care (01) ==
PROVIDERS: Physician Assistant; Emergency Provider Emergency Medicine
DX: U07.1 COVID-19 (principal); R05 Cough; R51.9 Headache, unspecified; R53.81 Other malaise; R77.8 Other specified abnormalities of plasma proteins; Z79.899 Other long term (current) drug therapy
CPT/HCPCS: 0241U; 36415; 71045; 80048; 80076; 81003; 82947; 83690; 83735; 83880; 84145; 84484; 85025; 93005; 99284

== ENCOUNTER 2020-11-09 14:19 | Outpatient (REF) | payer MEDICAID, SELFPAY ==
[2020-11-09 14:45] LABS: COVID-19 Test Negative (Negative)
== END 2020-11-09 14:20 | disposition home or self-care (01) ==
LOC: HO.LAB 14:19
PROVIDERS: Visit Provider Internal Medicine
DX: Z20.822 Contact with and (suspected) exposure to COVID-19 (principal)
CPT/HCPCS: 36415; 87635; C9803

== ENCOUNTER → 2020-11-23 13:53 | Outpatient (BNVA) | payer MEDICAID, SELFPAY | PROVIDERS: PCP Internal Medicine; Visit Provider Internal Medicine | DX: J45.909 Unspecified asthma, uncomplicated (principal); G47.9 Sleep disorder, unspecified; Z79.899 Other long term (current) drug therapy | CPT/HCPCS: 99202 ==

== ENCOUNTER 2020-12-15 13:50 | Outpatient (REF) | payer MEDICAID, SELFPAY ==
[2020-12-18 13:12] LABS: HCV RNA PCR Qn 1940000 IU/mL (NOT DETECTED); HCV RNA PCR Qn 6.29 Log IU/mL (NOT DETECTED)
[2020-12-22 12:41] LABS: HCV Genotype LiPA 1a
[2020-12-30 20:17] LABS: FIB-ALT 97 U/L (6-29); FIB-Alpha-2-Macroglobulin 241 mg/dL (106-279); FIB-Apolipoprotein A1 152 mg/dL (101-198); FIB-GGT 107 U/L (3-70); FIB-Haptoglobin 13 mg/dL (43-212); FIB-Total Bilirubin 0.6 mg/dL (0.2-1.2); Liver Fibrosis Score 0.73; Liver Fibrosis Stage F3-F4; Nec Inflam Act Grade A3; Nec Inflam Act Score 0.71
== END 2020-12-15 13:51 | disposition home or self-care (01) ==
LOC: HO.LAB 13:50
PROVIDERS: Visit Provider Internal Medicine
DX: B19.20 Unspecified viral hepatitis C without hepatic coma (principal)
CPT/HCPCS: 36415; 81596; 87522; 87902

== ENCOUNTER 2021-01-01 23:39 | Emergency (ER) | payer MEDICAID, SELFPAY ==
[2021-01-01 23:48] VITALS: BP 148/81; PULSE 79; RESP 24; TEMP 36.6; O2SAT 99; BMI 29.9
[2021-01-02 05:24] VITALS: BP 130/70; PULSE 62; RESP 18; TEMP 37.1; O2SAT 98
[2021-01-02 06:12] LABS: MANUAL DIFF FLAG NO
[2021-01-02 06:13] LABS: Basophils Percent Auto 0.5 % (0-2); Eosinophils Percent Auto 0.7 % (0-4); Hematocrit 36.4 % (37-47); Hemoglobin 12.4 g/dl (12.0-16.0); Imm Gran Abs Auto 0.02 X10*3/uL (0.00-0.03); Imm Gran Pct Auto 0.3 % (0.0-0.4); Lymphocytes Absolute Auto 1.8 X10*3/uL (1.2-4.9); Lymphocytes Percent Auto 29.8 % (20-40); Mean Corpuscular HGB Conc 34.1 g/dl (31.0-35.0); Mean Corpuscular Hemoglobin 28.2 pg (27.0-33.0); Mean Corpuscular Volume 82.9 fL (80-98); Mean Platelet Volume 9.8 fL (9.4-12.3); Monocytes Absolute Auto 0.6 X10*3/uL (0.1-1.2); Monocytes Percent Auto 9.8 % (2-11); Neutrophils Absolute Auto 3.6 X10*3/uL (2.0-8.3); Neutrophils Percent Auto 58.9 % (45-73); Platelet Count 173 X10*3/uL (160-400); Red Blood Count 4.39 X10*6/uL (4.20-5.50); Red Cell Distribution Width 13.1 % (11.0-16.0); White Blood Count 6.2 X10*3/uL (4.8-10.8)
[2021-01-02 06:14] LABS: Glucose Urine UA NEG (NEG); Leukocyte Esterase Urine NEG (NEG); Nitrite Urine NEG (NEG); PH 5.5 (5.0-8.0); Specific Gravity - Urine 1.025 (1.005-1.025); Urine Blood NEG (NEG); Urine Ketones NEG (NEG); Urine Protein TRACE MG/DL (NEG-TRACE)
--- NOTE | 2021-01-02 06:16 | ED_ITS ---
HPI - Nausea/Vomiting/Diarrhea General Chief complaint: Nausea/Vomiting/Diarrhea Stated complaint: vomiting/headache Time Seen by Provider: 01/02/21 05:58 Source: patient Mode of arrival: ambulatory History of Present Illness HPI Narrative: This is a 55-year-old female with history of diabetes who states that she received her 2nd COVID-19 vaccine this past Sunday and then states that she had a little bit of a headache that resolved with [id number] Tylenol, but then states that she was drinking Sunday night and woke up yesterda y with a headache a few episodes of nausea and vomiting as well as persistent headache. She states she has had small amounts of diarrhea since then. Otherwise, she denies any fever, chills, shortness of breath/chest pain and denies any urinary pain/burning/frequency. Related Data Home Medications Medication Instructions Recorded Confirmed albuterol sulfate 90 mcg/actuation 2 puff INHALATION Q6H PRN 07/28/20 11/23/20 aerosol inhaler aspirin 81 mg tablet,delayed 81 mg PO DAILY 07/28/20 11/23/20 release cyclobenzaprine 5 mg tablet 10 mg PO TID PRN 07/28/20 11/23/20 gabapentin 300 mg capsule 300 mg PO TID 07/28/20 11/23/20 lisinopril 40 mg tablet 40 mg PO DAILY 07/28/20 11/23/20 loperamide 2 mg tablet 2 mg PO Q6H PRN 07/28/20 11/23/20 omeprazole 20 mg capsule,delayed 20 mg PO DAILY 07/28/20 11/23/20 release simvastatin 20 mg tablet 20 mg PO DAILY 07/28/20 11/23/20 trazodone 100 mg tablet 100 mg PO DAILY 07/28/20 11/23/20 amlodipine 1 tab PO QAM 10/19/20 11/23/20 fluticasone propionate [Flovent 1 puff PO BID 10/19/20 11/23/20 HFA] insulin glargine [Lantus U-100 60 unit SUBCUT BEDTIME 10/19/20 11/23/20 Insulin] insulin lispro [Humalog U-100 20 unit SUBCUT TIDAC 10/19/20 11/23/20 Insulin] metoprolol succinate 0.5 tab PO QAM 10/25/20 11/23/20 Previous Rx's Medication Instructions Recorded ibuprofen 600 mg PO TID PRN #14 tab 10/03/20 glecaprevir 100 mg-pibrentasvir 40 3 tab PO DAILY 56 Days #168 tab 10/26/20 mg tablet oxycodone-acetaminophen 5 mg-325 1 tab PO Q8H PRN 14 Days #30 tab 11/05/20 mg tablet inhalational spacing device #1 ea 11/23/20 Allergies Allergy/AdvReac Type Severity Reaction Status Date / Time No Known Allergies Allergy Mild NOT Verified 11/23/20 14:00 APPLICABLE Review of Systems Review of Systems: Pertinent positives and negatives as stated in HPI 10 point review of systems is otherwise negative. [facility] Past Medical History Source: nursing notes reviewed Medical History Abdominal distension (gaseous) Anxiety Asthma Benign neoplasm of pituitary gland and craniopharyngeal duct Bipolar disorder Chronic hepatitis C without hepatic coma Cirrhosis of liver without ascites Depression Diabetes mellitus, insulin dependent (IDDM), uncontrolled Flank pain GERD (gastroesophageal reflux disease) Hepatitis C HTN (hypertension) Hyperlipidemia Kidney stone Mononeuritis Obese Panic disorder Renal stones Rheumatoid arthritis Surgical History History of esophagogastroduodenoscopy (EGD) Hx of cholecystectomy Hx of lithotripsy Family History Family History Father No problems noted. Mother Diabetes mellitus Sister Diabetes mellitus Brother No problems noted. Paternal Uncle Colon cancer Social History Social History Cigarettes Per Day: 2 Advance Directives: No Advance Directives Information Provided: No Patient : No Physical Exam Vital Signs: Vital Signs: Last Vital Signs Temp 98.8 F 01/02/21 05:24 Pulse 62 01/02/21 05:24 Resp 18 01/02/21 05:24 BP 130/70 01/02/21 05:24 Pulse Ox 98 01/02/21 05:24 Body Mass Index 29.9 VITAL SIGNS: Reviewed. GENERAL: Well developed, well nourished, in no acute distress. HEAD: Normocephalic/atraumatic EYES: PERRLA, EOMI NOSE: Nares patent bilateral OROPHARYNX: no oral lesions noted, posterior pharynx clear, mildly dry mucosa NECK: Supple, no adenopathy LUNGS: Normal breath sounds. No adventitious sounds or accessory muscle use. SpO2<98> CARDIOVASCULAR: Regular rate and rhythm without noted murmurs, no JVD or lower extremity edema. ABDOMEN: Obese, Soft, non-tender, non-distended, no fluid wave with bowel sounds. NEUROLOGIC: Alert and oriented x 4. Strength and sensation to light touch were grossly intact x 4. Course Course Course Narrative: 55-year-old female with history and clinical presentation likely post vaccine in nature, but will rule out symptoms associated with hyperglycemia. Patient was provided with Tylenol for her headache. MDM - Nausea/Vomiting/Diarrhea Lab Data Result diagrams: 01/02/21 06:07 01/02/21 06:07 Labs: Lab Results 01/02/21 01/02/21 01/02/21 Range/Units 06:03 06:07 06:07 WBC 6.2 (4.8-10.8) X10*3/uL RBC 4.39 (4.20-5.50) X10*6/uL Hgb 12.4 (12.0-16.0) g/dl Hct 36.4 L (37-47) % MCV 82.9 (80-98) fL MCH 28.2 (27.0-33.0) pg MCHC 34.1 (31.0-35.0) g/dl RDW 13.1 (11.0-16.0) % Plt Count 173 (160-400) X10*3/uL MPV 9.8 (9.4-12.3) fL Immature Gran % (Auto) 0.3 (0.0-0.4) % Neut % (Auto) 58.9 (45-73) % Lymph % (Auto) 29.8 (20-40) % [place] % (Auto) 9.8 (2-11) % Eos % (Auto) 0.7 (0-4) % Baso % (Auto) 0.5 (0-2) % Lymph # (Auto) 1.8 (1.2-4.9) X10*3/uL [place] # (Auto) 0.6 (0.1-1.2) X10*3/uL Eos # (Auto) 0.0 (0.0-0.4) X10*3/uL Baso # (Auto) 0.0 (0.0-0.2) X10*3/uL Abs Immat Gran (auto) 0.02 (0.00-0.03) X10*3/uL Absolute Neuts (auto) 3.6 (2.0-8.3) X10*3/uL Absolute Nucleated RBC 0.000 (0.0-0.012) X10*3/uL Nucleated RBC % (auto) 0.0 (0.0-0.2) /100WBC Sodium 138 (135-145) mmol/L Potassium 4.2 (3.3-5.1) mmol/L Chloride 106 (96-108) mmol/L Carbon Dioxide 24 (22-29) mmol/L Anion Gap 12 (12-20) BUN 12 (9-16) mg/dL Creatinine 1.05 (0.5-1.4) mg/dL Estim Creat Clear Calc 57.9 Estimated GFR 54 POC Glucose (60-115) mg/dL Random Glucose 217 H D (60-115) mg/dL Calcium 9.2 (8.4-10.2) mg/dL Total Bilirubin 0.6 (0.0-1.0) mg/dL AST 73 H (5-31) U/L ALT 95 H (0-31) U/L Alkaline Phosphatase 182 H (39-117) U/L Total Protein 7.3 (6.5-8.0) g/dL Albumin 3.9 (3.5-5.0) g/dL Urine Color YELLOW Urine Appearance HAZY Urine pH 5.5 (5.0-8.0) Ur Specific [place] 1.025 (1.005-1.025) Urine Protein TRACE (NEG-TRACE) MG/DL Urine Glucose (UA) NEG (NEG) MG/DL Urine Ketones NEG (NEG) MG/DL Urine Blood NEG (NEG) Urine Nitrite NEG (NEG) Ur Leukocyte Esterase NEG (NEG) 01/02/21 Range/Units 06:21 WBC (4.8-10.8) X10*3/uL RBC (4.20-5.50) X10*6/uL Hgb (12.0-16.0) g/dl Hct (37-47) % MCV (80-98) fL MCH (27.0-33.0) pg MCHC (31.0-35.0) g/dl RDW (11.0-16.0) % Plt Count (160-400) X10*3/uL MPV (9.4-12.3) fL Immature Gran % (Auto) (0.0-0.4) % Neut % (Auto) (45-73) % Lymph % (Auto) (20-40) % [place] % (Auto) (2-11) % Eos % (Auto) (0-4) % Baso % (Auto) (0-2) % Lymph # (Auto) (1.2-4.9) X10*3/uL [place] # (Auto) (0.1-1.2) X10*3/uL Eos # (Auto) (0.0-0.4) X10*3/uL Baso # (Auto) (0.0-0.2) X10*3/uL Abs Immat Gran (auto) (0.00-0.03) X10*3/uL Absolute Neuts (auto) (2.0-8.3) X10*3/uL Absolute Nucleated RBC (0.0-0.012) X10*3/uL Nucleated RBC % (auto) (0.0-0.2) /100WBC Sodium (135-145) mmol/L Potassium (3.3-5.1) mmol/L Chloride (96-108) mmol/L Carbon Dioxide (22-29) mmol/L Anion Gap (12-20) BUN (9-16) mg/dL Creatinine (0.5-1.4) mg/dL Estim Creat Clear Calc Estimated GFR POC Glucose 198 H (60-115) mg/dL Random Glucose (60-115) mg/dL Calcium (8.4-10.2) mg/dL Total Bilirubin (0.0-1.0) mg/dL AST (5-31) U/L ALT (0-31) U/L Alkaline Phosphatase (39-117) U/L Total Protein (6.5-8.0) g/dL Albumin (3.5-5.0) g/dL Urine Color Urine Appearance Urine pH (5.0-8.0) Ur Specific [place] (1.005-1.025) Urine Protein (NEG-TRACE) MG/DL Urine Glucose (UA) (NEG) MG/DL Urine Ketones (NEG) MG/DL Urine Blood (NEG) Urine Nitrite (NEG) Ur Leukocyte Esterase (NEG) Discharge Plan Discharge Clinical Impression: Alcohol use, Adverse effect of COVID-19 vaccine Patient Disposition: Home, Self-Care Instructions: Acute Nausea and Vomiting (ED) Additional Instructions: Return to the ER for any worsening of symptoms. Prescriptions: No Action Mavyret 100-40 mg tablet 3 tab PO DAILY 56 Days Qty: 168 RF: 0 oxycodone-acetaminophen [Percocet] 5-325 mg tablet 1 tab PO Q8H PRN (Reason: pain) 14 Days Qty: 30 RF: 0 ibuprofen 600 mg tablet 600 mg PO TID PRN (Reason: pain) Qty: 14 RF: 0 Lantus U-100 Insulin 100 unit/mL solution 60 unit subcut BEDTIME RF: 0 amlodipine 5 mg tablet 1 tab PO QAM RF: 0 Flovent HFA 220 mcg/actuation HFA aerosol inhaler 1 puff PO BID RF: 0 insulin lispro [Humalog U-100 Insulin] 100 unit/mL solution 20 unit subcut TIDAC RF: 0 metoprolol succinate 25 mg tablet extended release 24 hr 0.5 tab PO QAM RF: 0 cyclobenzaprine 5 mg tablet 10 mg PO TID PRN (Reason: Muscle Spasm) RF: 0 albuterol sulfate [Ventolin HFA] 90 mcg/actuation HFA aerosol inhaler 2 puff inhalation Q6H PRN (Reason: Shortness Of Breath) RF: 0 loperamide [Imodium A-D] 2 mg tablet 2 mg PO Q6H PRN (Reason: Loose Stool) RF: 0 gabapentin 300 mg capsule 300 mg PO TID RF: 0 simvastatin 20 mg tablet 20 mg PO DAILY RF: 0 trazodone 100 mg tablet 100 mg PO DAILY RF: 0 omeprazole 20 mg capsule,delayed release(DR/EC) 20 mg PO DAILY RF: 0 lisinopril 40 mg tablet 40 mg PO DAILY RF: 0 aspirin [Adult Low Dose Aspirin] 81 mg tablet,delayed release (DR/EC) 81 mg PO DAILY RF: 0 (DME) inhalational spacing device Spacer See Rx Instructions .ROUTE .MEDPPLY Qty: 1 RF: 0 Referrals: Physician,Unknown [Primary Care Provider] - 2 days
[2021-01-02 06:17] LABS: Appearance Urine HAZY; Color Urine YELLOW
[2021-01-02 06:25] LABS: Glucose, Whole Blood 198 mg/dL (60-115)
[2021-01-02 06:42] LABS: Alanine Aminotransferase 95 U/L (0-31); Albumin Level 3.9 g/dL (3.5-5.0); Alkaline Phosphatase 182 U/L (39-117); Anion Gap 12 (12-20); Aspartate Amino Transferase 73 U/L (5-31); Bilirubin Total 0.6 mg/dL (0.0-1.0); Blood Urea Nitrogen 12 mg/dL (9-16); Calcium 9.2 mg/dL (8.4-10.2); Carbon Dioxide 24 mmol/L (22-29); Chloride 106 mmol/L (96-108); Creatinine Clr Calc Pharmacy 57.9; Estimated Glomerular Filt Rate 54; Glucose Random 217 mg/dL (60-115); Potassium 4.2 mmol/L (3.3-5.1); Sodium 138 mmol/L (135-145); Total Protein 7.3 g/dL (6.5-8.0)
[2021-01-02] MEDS: Acetaminophen 325 MG TABLET 975 MG PO (07:17)
== END 2021-01-02 09:32 | disposition home or self-care (01) ==
PROVIDERS: Student in an Organized Health Care Education/Training Program; Emergency Provider Emergency Medicine Emergency Medical Services
DX: R11.2 Nausea with vomiting, unspecified (principal); R51.9 Headache, unspecified; T50.B95A Adverse effect of other viral vaccines, initial encounter; Y92.039 Unspecified place in apartment as the place of occurrence of the external cause; F10.988 Alcohol use, unspecified with other alcohol-induced disorder; Y90.9 Presence of alcohol in blood, level not specified; E11.9 Type 2 diabetes mellitus without complications; I10 Essential (primary) hypertension; E78.5 Hyperlipidemia, unspecified; K21.9 Gastro-esophageal reflux disease without esophagitis; K74.60 Unspecified cirrhosis of liver; B19.20 Unspecified viral hepatitis C without hepatic coma; F17.210 Nicotine dependence, cigarettes, uncomplicated; J45.909 Unspecified asthma, uncomplicated; Z87.442 Personal history of urinary calculi; Z79.4 Long term (current) use of insulin; Z79.51 Long term (current) use of inhaled steroids; Z79.899 Other long term (current) drug therapy; Z79.82 Long term (current) use of aspirin; Z79.02 Long term (current) use of antithrombotics/antiplatelets
CPT/HCPCS: 36415; 80053; 81003; 82947; 85025; 99283; 99284

== ENCOUNTER 2021-01-13 09:30 | Outpatient (REF) | payer MEDICAID, SELFPAY ==
[2021-01-13 10:35] LABS: MANUAL DIFF FLAG NO
[2021-01-13 10:39] LABS: Basophils Percent Auto 0.4 % (0-2); Eosinophils Absolute Auto 0.1 X10*3/uL (0.0-0.4); Eosinophils Percent Auto 2.4 % (0-4); Hematocrit 38.5 % (37-47); Hemoglobin 12.7 g/dl (12.0-16.0); Imm Gran Abs Auto 0.01 X10*3/uL (0.00-0.03); Imm Gran Pct Auto 0.2 % (0.0-0.4); Lymphocytes Absolute Auto 1.8 X10*3/uL (1.2-4.9); Lymphocytes Percent Auto 33.3 % (20-40); Mean Corpuscular Hemoglobin 27.5 pg (27.0-33.0); Mean Corpuscular Volume 83.5 fL (80-98); Mean Platelet Volume 10.8 fL (9.4-12.3); Monocytes Absolute Auto 0.6 X10*3/uL (0.1-1.2); Monocytes Percent Auto 11.5 % (2-11); Neutrophils Absolute Auto 2.8 X10*3/uL (2.0-8.3); Neutrophils Percent Auto 52.2 % (45-73); Platelet Count 160 X10*3/uL (160-400); Red Blood Count 4.61 X10*6/uL (4.20-5.50); White Blood Count 5.3 X10*3/uL (4.8-10.8)
[2021-01-13 11:09] LABS: Alanine Aminotransferase 95 U/L (0-31); Albumin Level 4.1 g/dL (3.5-5.0); Alkaline Phosphatase 176 U/L (39-117); Anion Gap 11 (12-20); Aspartate Amino Transferase 68 U/L (5-31); Bilirubin Total 0.6 mg/dL (0.0-1.0); Blood Urea Nitrogen 13 mg/dL (9-16); C Reactive Protein 0.17 mg/dL (< or = 0.50); Calcium 9.6 mg/dL (8.4-10.2); Carbon Dioxide 27 mmol/L (22-29); Chloride 106 mmol/L (96-108); Creatinine Clr Calc Pharmacy 58.1; Estimated Glomerular Filt Rate 55; Glucose Random 182 mg/dL (60-115); Potassium 4.1 mmol/L (3.3-5.1); Rheumatoid Factor 29.1 IU/mL (<15.0); Sodium 140 mmol/L (135-145); Total Protein 7.6 g/dL (6.5-8.0)
[2021-01-13 11:17] LABS: Erythrocyte Sedimentation Rate 12 MM/HR (0-20)
== END 2021-01-13 09:31 | disposition home or self-care (01) ==
LOC: HO.LAB 09:30
PROVIDERS: PCP Nurse Practitioner Primary Care; Visit Provider Student in an Organized Health Care Education/Training Program
DX: M79.672 Pain in left foot (principal); M79.641 Pain in right hand; M79.642 Pain in left hand; M13.0 Polyarthritis, unspecified
CPT/HCPCS: 36415; 80053; 85025; 85652; 86140; 86200; 86431; 99202

== ENCOUNTER 2021-02-10 13:07 | Outpatient (REF) | payer MEDICAID, SELFPAY ==
--- NOTE | ~2021-02-10 | XR_ITS ---
EXAMINATION: XR HAND, RIGHT XR HAND, LEFT CLINICAL INFORMATION: Pain. COMPARISON: None TECHNIQUE: AP, oblique, and lateral views of the right and left hand. FINDINGS: Right hand: No acute fracture or dislocation. Normal carpal alignment. Mild joint space narrowing with small marginal osteophytes at the 1st metacarpophalangeal joint. No osseous erosion. No abnormal soft tissue calcification. Left hand: No acute fracture or dislocation. Normal carpal alignment. No joint space narrowing or marginal osteophytes. No osseous erosion. No abnormal soft tissue calcification. 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 Left hand: Unremarkable examination.
--- NOTE | ~2021-02-10 | XR_ITS ---
EXAMINATION: XR HAND, RIGHT XR HAND, LEFT CLINICAL INFORMATION: Pain. COMPARISON: None TECHNIQUE: AP, oblique, and lateral views of the right and left hand. FINDINGS: Right hand: No acute fracture or dislocation. Normal carpal alignment. Mild joint space narrowing with small marginal osteophytes at the 1st metacarpophalangeal joint. No osseous erosion. No abnormal soft tissue calcification. Left hand: No acute fracture or dislocation. Normal carpal alignment. No joint space narrowing or marginal osteophytes. No osseous erosion. No abnormal soft tissue calcification. 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 Left hand: Unremarkable examination.
--- NOTE | ~2021-02-10 | XR_ITS ---
EXAMINATION: XR FOOT, LEFT CLINICAL INFORMATION: Left foot pain. COMPARISON: None TECHNIQUE: AP, lateral, and oblique views of the left foot. FINDINGS: No acute fracture or dislocation. No joint space narrowing or marginal osteophytes. No osseous erosion. Small plantar and dorsal calcaneal enthesophyte. XR/XR foot LT 2V IMPRESSION: Small plantar and dorsal calcaneal spurs.
== END 2021-02-10 13:08 | disposition home or self-care (01) ==
LOC: HO.XRAY 13:07
PROVIDERS: Absent Provider Student in an Organized Health Care Education/Training Program; PCP Nurse Practitioner Primary Care; Visit Provider Internal Medicine
DX: M79.641 Pain in right hand (principal); M79.642 Pain in left hand; M79.672 Pain in left foot; J45.909 Unspecified asthma, uncomplicated; G47.9 Sleep disorder, unspecified
CPT/HCPCS: 73130; 73620; 99212

== ENCOUNTER → 2021-03-17 10:25 | Outpatient (BNVA) | payer MEDICAID, SELFPAY | PROVIDERS: PCP Nurse Practitioner Primary Care; Visit Provider Student in an Organized Health Care Education/Training Program | DX: M79.672 Pain in left foot (principal); M79.641 Pain in right hand; M77.32 Calcaneal spur, left foot; E11.9 Type 2 diabetes mellitus without complications; I10 Essential (primary) hypertension; E78.5 Hyperlipidemia, unspecified; B18.2 Chronic viral hepatitis C; F41.8 Other specified anxiety disorders; F17.210 Nicotine dependence, cigarettes, uncomplicated; Z79.82 Long term (current) use of aspirin; Z79.4 Long term (current) use of insulin; Z79.899 Other long term (current) drug therapy | CPT/HCPCS: 99212 ==

== ENCOUNTER → 2021-05-17 15:03 | Outpatient (BNVA) | payer MEDICAID, SELFPAY | PROVIDERS: Visit Provider Urology ==

== ENCOUNTER 2021-05-19 08:54 | Emergency (ER) | payer MEDICAID, SELFPAY ==
[2021-05-19 09:05] VITALS: BP 150/83; PULSE 55; RESP 20; TEMP 35.3; O2SAT 98; BMI 29.9
--- NOTE | 2021-05-19 09:35 | ED_ITS ---
HPI - Eye Problem General Chief complaint: Eye Problems Stated complaint: Eye swelling/pain Time Seen by Provider: 05/19/21 09:32 Source: patient Limitations: no limitations History of Present Illness HPI Narrative: Patient presents to the ER complaining of left eye lower lid discomfort. Patient states symptoms started approximately 4 days prior after putting some eye makeup on. Patient's nose clear discharge from a bump in the left lower lid line. An obviously some pain associated. Patient denies any vision changes. His symptoms are mild to moderate no other complaints at this time patient has had a similar episode in the past. Related Data Home Medications Medication Instructions Recorded Confirmed albuterol sulfate 90 mcg/actuation 2 puff INHALATION Q6H PRN 07/28/20 03/17/21 aerosol inhaler (Ventolin HFA) aspirin 81 mg tablet,delayed 81 mg PO DAILY 07/28/20 03/17/21 release (Adult Low Dose Aspirin) cyclobenzaprine 5 mg tablet 10 mg PO TID PRN 07/28/20 03/17/21 gabapentin 300 mg capsule 300 mg PO TID 07/28/20 03/17/21 lisinopril 40 mg tablet 40 mg PO DAILY 07/28/20 03/17/21 loperamide 2 mg tablet (Imodium 2 mg PO Q6H PRN 07/28/20 03/17/21 A-D) omeprazole 20 mg capsule,delayed 20 mg PO DAILY 07/28/20 03/17/21 release simvastatin 20 mg tablet 20 mg PO DAILY 07/28/20 03/17/21 trazodone 100 mg tablet 100 mg PO DAILY 07/28/20 03/17/21 amlodipine 5 mg tablet 1 tab PO QAM 10/19/20 03/17/21 fluticasone propionate 220 1 puff PO BID 10/19/20 03/17/21 mcg/actuation HFA aerosol inhaler (Flovent HFA) insulin glargine 100 unit/mL 60 unit SUBCUT BEDTIME 10/19/20 03/17/21 subcutaneous solution (Lantus U-100 Insulin) insulin lispro 100 unit/mL 20 unit SUBCUT TIDAC 10/19/20 03/17/21 subcutaneous solution (Humalog U-100 Insulin) metoprolol succinate 25 mg 0.5 tab PO QAM 10/25/20 03/17/21 tablet,extended release 24 hr Previous Rx's Medication Instructions Recorded ibuprofen 600 mg tablet 600 mg PO TID PRN #14 tab 10/03/20 glecaprevir 100 mg-pibrentasvir 40 3 tab PO DAILY 56 Days #168 tab 10/26/20 mg tablet (Mavyret) inhalational spacing device #1 ea 11/23/20 ondansetron 4 mg disintegrating 4 mg PO Q6-8H PRN #14 tab 01/02/21 tablet bacitracin 500 unit/gram eye 1 appl OPHTHALMIC-LEFT Q8H 7 Days 05/19/21 ointment g Allergies Allergy/AdvReac Type Severity Reaction Status Date / Time No Known Allergies Allergy Mild NOT Verified 03/17/21 10:31 APPLICABLE Review of Systems Constitutional: Constitutional: Denies chills, Denies fever(s) and Denies headache(s) Eyes: Eyes: Denies blurry vision, Denies exophthalmos, Denies change in vision and Reports eye discharge Comments: Left eye lower lid edema ENT: Denies headache(s) and Denies sore throat Cardiovascular: Cardiovascular: Denies chest pain and Denies dyspnea Respiratory: Respiratory: Denies dyspnea Neurologic: Denies headache(s) [facility] Past Medical History Medical History Abdominal distension (gaseous) Anxiety Asthma Benign neoplasm of pituitary gland and craniopharyngeal duct Bipolar disorder Chronic hepatitis C without hepatic coma Cirrhosis of liver without ascites Depression Diabetes mellitus, insulin dependent (IDDM), uncontrolled Flank pain GERD (gastroesophageal reflux disease) Hepatitis C HTN (hypertension) Hyperlipidemia Kidney stone Mononeuritis Obese Panic disorder Renal stones Rheumatoid arthritis Surgical History History of esophagogastroduodenoscopy (EGD) Hx of cholecystectomy Hx of lithotripsy Family History Family History Father No problems noted. Mother Diabetes mellitus Sister Diabetes mellitus Brother No problems noted. Paternal Uncle Colon cancer Social History Social History Household Members: None Housing: Apartment Alcohol intake: current Alcohol intake frequency: does not drink Patient Tobacco Use Status: Current everyday Tobacco user Cigarettes Per Day: 2 Years Smoked: 15 Advance Directives: No Advance Directives Information Provided: Yes Physical Exam Vital Signs: Vital Signs: Last Vital Signs Temp 95.6 F L 05/19/21 09:05 Pulse 55 05/19/21 09:05 Resp 20 05/19/21 09:05 BP 150/83 H 05/19/21 09:05 Pulse Ox 98 05/19/21 09:05 Body Mass Index 29.9 vital signs have been reviewed as normal and appeared to be correct. Blood pressure normal. Heart rate normal. Respiration rate normal. Temperature normal. Oxygen saturation normal. Appearance: Alert. Oriented X3. No acute distress. No Schneider signs noted. No raccoon eyes noted Eyes: PERRLA. EOMI. Left lower eyelid edema noted positive tenderness lateral aspect no obvious purulent discharge ENT: Pharynx normal. Uvula midline. Moist mucous membranes. Neck: Soft full range of motion CVS: Heart regular rate and rhythm no murmurs and rubs Respiratory: Breath sounds are clear to auscultation bilaterally. No accessory muscle use noted. Skin: Skin warm and dry. Normal skin color. Extremities: No lower extremity edema. Extremities exhibit normal range of motion. Extremities nontender. Neuro: Oriented X 3. No motor deficit. No sensory deficit. Reflexes normal. Course Course Course Narrative: Left eye blepharitis Stye Hordeolum Preorbital cellulitis less likely Symptoms seem consistent with blepharitis versus a stye will treat accordingly with topical antibiotics and warm compresses at this time follow-up with ophthalmology as needed. Discharge Plan Discharge Clinical Impression: Blepharitis Qualifiers: Blepharitis type: unspecified type Laterality: left Eyelid: lower Qualified Code(s): H01.005 - Unspecified blepharitis left lower eyelid Patient Disposition: Home, Self-Care Instructions: Blepharitis (ED) Additional Instructions: Warm compresses 3 to 4 times a day Antibiotics as directed use no eye makeup Return if symptoms worsen Prescriptions: New bacitracin 500 unit/gram ointment 1 appl ophthalmic-Left Q8H 7 Days RF: 0 No Action Mavyret 100-40 mg tablet 3 tab PO DAILY 56 Days Qty: 168 RF: 0 ibuprofen 600 mg tablet 600 mg PO TID PRN (Reason: pain) Qty: 14 RF: 0 Lantus U-100 Insulin 100 unit/mL solution 60 unit subcut BEDTIME RF: 0 amlodipine 5 mg tablet 1 tab PO QAM RF: 0 Flovent HFA 220 mcg/actuation HFA aerosol inhaler 1 puff PO BID RF: 0 insulin lispro [Humalog U-100 Insulin] 100 unit/mL solution 20 unit subcut TIDAC RF: 0 metoprolol succinate 25 mg tablet extended release 24 hr 0.5 tab PO QAM RF: 0 ondansetron 4 mg tablet,disintegrating 4 mg PO Q6-8H PRN (Reason: nausea and vomiting) Qty: 14 RF: 0 cyclobenzaprine 5 mg tablet 10 mg PO TID PRN (Reason: Muscle Spasm) RF: 0 albuterol sulfate [Ventolin HFA] 90 mcg/actuation HFA aerosol inhaler 2 puff inhalation Q6H PRN (Reason: Shortness Of Breath) RF: 0 loperamide [Imodium A-D] 2 mg tablet 2 mg PO Q6H PRN (Reason: Loose Stool) RF: 0 gabapentin 300 mg capsule 300 mg PO TID RF: 0 simvastatin 20 mg tablet 20 mg PO DAILY RF: 0 trazodone 100 mg tablet 100 mg PO DAILY RF: 0 omeprazole 20 mg capsule,delayed release(DR/EC) 20 mg PO DAILY RF: 0 lisinopril 40 mg tablet 40 mg PO DAILY RF: 0 aspirin [Adult Low Dose Aspirin] 81 mg tablet,delayed release (DR/EC) 81 mg PO DAILY RF: 0 (DME) inhalational spacing device Spacer See Rx Instructions .ROUTE .MEDSUPPLY Qty: 1 RF: 0 Referrals: Viktor Mauricio [Physician] - 2 days
== END 2021-05-19 09:47 | disposition home or self-care (01) ==
PROVIDERS: Emergency Provider Emergency Medicine Emergency Medical Services
DX: H01.005 Unspecified blepharitis left lower eyelid (principal); F17.210 Nicotine dependence, cigarettes, uncomplicated; Z71.6 Tobacco abuse counseling; Z79.899 Other long term (current) drug therapy
CPT/HCPCS: 99212; 99283

== ENCOUNTER → 2021-05-20 09:28 | Outpatient (BNVA) | payer MEDICAID, SELFPAY | PROVIDERS: Visit Provider Urology ==

== ENCOUNTER 2021-05-26 09:13 | Outpatient (REF) | payer MEDICAID, SELFPAY ==
--- NOTE | ~2021-05-26 | US_ITS ---
EXAMINATION: US ABDOMEN COMPLETE CLINICAL INFORMATION: Right upper quadrant pain. COMPARISON: Ultrasound abdomen complete 10/27/2020. CT abdomen and pelvis 10/03/2020. KUB 09/15/2020. Renal ultrasound 03/12/2020. TECHNIQUE: Real-time imaging of the abdominal viscera. FINDINGS: PANCREAS: Head and body of the pancreas are normal. The tail is not well seen due to bowel gas. ABDOMINAL AORTA: The proximal and mid segments are normal in caliber. The distal abdominal aorta is not well visualized due to bowel gas. INFERIOR VENA CAVA: Visualized portions are normal. LIVER: Liver echotexture is heterogeneous suggestive of hepatocellular disease. The contour of the liver appears irregular or scalloped suggestive of cirrhosis. No focal liver lesion is seen. The liver is slightly enlarged, right lobe measuring 19 cm in length. There is no intrahepatic biliary duct dilatation seen. GALLBLADDER: Surgically absent. COMMON BILE DUCT: Normal in caliber measuring 0.5 cm in diameter. RIGHT KIDNEY: No hydronephrosis. No renal calculi or focal parenchymal lesions. The kidney measures 10.0 cm in maximum dimension. LEFT KIDNEY: There is a 4 mm stone in the lower pole. No hydronephrosis or focal parenchymal lesions. The kidney measures 10.0 cm in maximum dimension. SPLEEN: Upper normal in size. The spleen measures 12.4 cm in maximum dimension. There is a splenule. FREE FLUID: None. US/US abdomen complete IMPRESSION: Cirrhotic-appearing liver. No focal liver lesion seen. Limited visualization of the tail of the pancreas and in the lower abdominal aorta. Left renal stone.
== END 2021-05-26 09:14 | disposition home or self-care (01) ==
LOC: HO.US 09:13
PROVIDERS: Visit Provider Nurse Practitioner Primary Care
DX: R10.11 Right upper quadrant pain (principal)
CPT/HCPCS: 76700

== ENCOUNTER → 2021-06-07 10:56 | Outpatient (BNVA) | payer MEDICAID, SELFPAY | PROVIDERS: PCP Nurse Practitioner Primary Care; Visit Provider Nurse Practitioner Family | DX: M79.641 Pain in right hand (principal); M79.642 Pain in left hand; M77.32 Calcaneal spur, left foot | CPT/HCPCS: 99212 ==

== ENCOUNTER → 2021-09-15 13:29 | Outpatient (BNVA) | payer MEDICAID, SELFPAY | PROVIDERS: Visit Provider Internal Medicine Gastroenterology | DX: K74.60 Unspecified cirrhosis of liver (principal); B19.20 Unspecified viral hepatitis C without hepatic coma | CPT/HCPCS: 99212 ==

== ENCOUNTER 2021-10-03 09:25 | Outpatient (REF) | payer MEDICAID, SELFPAY ==
--- NOTE | ~2021-10-03 | US_ITS ---
EXAMINATION: US RETROPERITONEAL LIMITED (RENAL ONLY) CLINICAL INFORMATION: Calculus of kidney. COMPARISON: Ultrasound abdomen complete 05/26/2021 and 10/27/2020. CT abdomen and pelvis 10/03/2020. X-ray abdomen KUB 09/15/2020. TECHNIQUE: Real-time imaging of the kidneys. FINDINGS: RIGHT KIDNEY: 9.5 x 4.0 x 5.6 cm (SAG x AP x TRV). The kidney is normal in size, contour, and echogenicity. Renal cortical thickness is normal. No focal parenchymal lesions or hydronephrosis. 2 mm nonobstructing calculus in the upper pole. LEFT KIDNEY: 10.8 x 5.8 x 5.3 cm (SAG x AP x TRV). The kidney is normal in size, contour, and echogenicity. Renal cortical thickness is normal. No focal parenchymal lesions or hydronephrosis. 3 mm nonobstructing calculus in the upper pole. US/US renal BI IMPRESSION: Bilateral renal calculi without evidence of obstruction. The 1 cm calculus in the lower pole of the left kidney on prior CT scan 10/03/2020 is not seen on the current study.
== END 2021-10-03 09:26 | disposition home or self-care (01) ==
LOC: HO.US 09:25
PROVIDERS: Visit Provider Urology
DX: N20.0 Calculus of kidney (principal)
CPT/HCPCS: 76775

== ENCOUNTER 2021-11-10 20:16 | Emergency (ER) | payer MEDICAID, SELFPAY ==
[2021-11-10 20:23] VITALS: BP 166/77; PULSE 80; RESP 16; TEMP 36.2; O2SAT 99; BMI 28.1
[2021-11-10 20:30] LABS: MANUAL DIFF FLAG NO
[2021-11-10 20:34] LABS: Glucose, Whole Blood 345 mg/dL (60-115)
[2021-11-10 20:36] LABS: Basophils Percent Auto 0.2 % (0-2); Eosinophils Absolute Auto 0.1 X10*3/uL (0.0-0.4); Eosinophils Percent Auto 2.1 % (0-4); Hematocrit 34.7 % (37.0-47.0); Hemoglobin 11.8 g/dl (12.0-16.0); Imm Gran Abs Auto 0.01 X10*3/uL (0.00-0.03); Imm Gran Pct Auto 0.2 % (0.0-0.4); Lymphocytes Absolute Auto 1.5 X10*3/uL (1.2-4.9); Lymphocytes Percent Auto 31.5 % (20-40); Mean Corpuscular Hemoglobin 27.8 pg (27.0-33.0); Mean Corpuscular Volume 81.6 fL (80.0-98.0); Mean Platelet Volume 10.6 fL (9.4-12.3); Monocytes Absolute Auto 0.5 X10*3/uL (0.1-1.2); Monocytes Percent Auto 11.2 % (2-11); Neutrophils Absolute Auto 2.6 x10*3/uL (2.0-8.3); Neutrophils Percent Auto 54.8 % (45-73); Platelet Count 134 X10*3/uL (160-400); Red Blood Count 4.25 X10*6/uL (4.20-5.50); Red Cell Distribution Width 12.5 % (11.0-16.0); White Blood Count 4.7 X10*3/uL (4.8-10.8)
[2021-11-10 20:42] LABS: Appearance Urine HAZY; Color Urine YELLOW; Glucose Urine UA >=1000 MG/DL (NEG); Leukocyte Esterase Urine NEG (NEG); Nitrite Urine NEG (NEG); Specific Gravity - Urine 1.015 (1.005-1.025); Urine Blood NEG (NEG); Urine Ketones 5 MG/DL (NEG); Urine Protein TRACE MG/DL (NEG-TRACE)
[2021-11-10 20:46] LABS: COVID-19 Test Negative (Negative); IDNOW Serial# 55D5AD1C
[2021-11-10 20:47] LABS: Influenza A Negative (Negative); Influenza B2 Negative (Negative)
[2021-11-10 20:53] LABS: Bacteria Urine 2+ /LPF; Squamous Epithelial Cell Urine 3+ /LPF
[2021-11-10 20:55] LABS: Amorphous Sediment Urine TRACE /LPF; RBC Urine 0-2 /HPF (0)
[2021-11-10 20:56] LABS: Alanine Aminotransferase 126 U/L (0-31); Albumin Level 3.8 g/dL (3.5-5.0); Alkaline Phosphatase 204 U/L (39-117); Anion Gap 13 (12-20); Aspartate Amino Transferase 93 U/L (5-31); Bilirubin Total 0.6 mg/dL (0.0-1.0); Blood Urea Nitrogen 12 mg/dL (9-16); Calcium 9.7 mg/dL (8.4-10.2); Carbon Dioxide 24 mmol/L (22-29); Chloride 105 mmol/L (96-108); Creatinine Clr Calc Pharmacy 38.1; Estimated Glomerular Filt Rate 35; Glucose Random 384 mg/dL (60-115); Potassium 3.9 mmol/L (3.3-5.1); Sodium 138 mmol/L (135-145); Total Protein 7.3 g/dL (6.5-8.0)
[2021-11-10 23:08] LABS: Acetone, serum QL Negative (Negative)
[2021-11-10] MEDS: Acetaminophen 325 MG TABLET 975 MG PO (23:11)
[2021-11-10] MEDS: Ketorolac Tromethamine 15 MG/ML VIAL IM (23:12)
[2021-11-10] MEDS: Ondansetron ODT 4 MG TAB.RAPDIS TRANSLINGU (23:12)
--- NOTE | 2021-11-10 23:14 | ED.GENADULT ---
HPI - General Adult General Chief complaint: Nausea/Vomiting/Diarrhea Stated complaint: headache/ back pain, vomitting Time Seen by Provider: 11/10/21 22:56 Source: patient and family (Daughter) Mode of arrival: ambulatory History of Present Illness HPI narrative: 56-year-old female with presentation for nausea and known history stomach ulcers and gastritis as well as sometimes alcohol drinker. The nausea has also been associated with headache but she states she has been unable to vomit and is status post cholecystectomy and otherwise denies any melena, hematochezia, diarrhea, fevers or chills. Patient does states that her headache is unilateral in the right-sided has not been associated with any speech/visual/extremity numbness/tingling/weakness. Related Data Home Medications Medication Instructions Recorded Confirmed albuterol sulfate 90 mcg/actuation 2 puff INHALATION Q6H PRN 07/28/20 09/15/21 aerosol inhaler (Ventolin HFA) aspirin 81 mg tablet,delayed 81 mg PO DAILY 07/28/20 09/15/21 release (Adult Low Dose Aspirin) cyclobenzaprine 5 mg tablet 10 mg PO TID PRN 07/28/20 09/15/21 gabapentin 300 mg capsule 300 mg PO TID 07/28/20 09/15/21 lisinopril 40 mg tablet 40 mg PO DAILY 07/28/20 09/15/21 loperamide 2 mg tablet (Imodium 2 mg PO Q6H PRN 07/28/20 09/15/21 A-D) omeprazole 20 mg capsule,delayed 20 mg PO DAILY 07/28/20 09/15/21 release simvastatin 20 mg tablet 20 mg PO DAILY 07/28/20 09/15/21 trazodone 100 mg tablet 100 mg PO DAILY 07/28/20 09/15/21 amlodipine 5 mg tablet 1 tab PO QAM 10/19/20 09/15/21 fluticasone propionate 220 1 puff PO BID 10/19/20 09/15/21 mcg/actuation HFA aerosol inhaler (Flovent HFA) insulin glargine 100 unit/mL 60 unit SUBCUT BEDTIME 10/19/20 09/15/21 subcutaneous solution (Lantus U-100 Insulin) insulin lispro 100 unit/mL 20 unit SUBCUT TIDAC 10/19/20 09/15/21 subcutaneous solution (Humalog U-100 Insulin) metoprolol succinate 25 mg 0.5 tab PO QAM 10/25/20 09/15/21 tablet,extended release 24 hr Previous Rx's Medication Instructions Recorded ibuprofen 600 mg tablet 600 mg PO TID PRN #14 tab 10/03/20 glecaprevir 100 mg-pibrentasvir 40 3 tab PO DAILY 56 Days #168 tab 10/26/20 mg tablet (Mavyret) inhalational spacing device #1 ea 11/23/20 ondansetron 4 mg disintegrating 4 mg PO Q6-8H PRN #14 tab 01/02/21 tablet ketorolac 10 mg tablet 10 mg PO Q6H PRN 5 Days #20 tab 11/11/21 Allergies Allergy/AdvReac Type Severity Reaction Status Date / Time No Known Allergies Allergy Mild NOT Verified 09/15/21 13:32 APPLICABLE Review of Systems Review of Systems: Pertinent positives and negatives as stated in HPI 10 point review of systems otherwise negative. [facility] Past Medical History Source: nursing notes reviewed Medical History Abdominal distension (gaseous) Anxiety Asthma Benign neoplasm of pituitary gland and craniopharyngeal duct Bipolar disorder Chronic hepatitis C without hepatic coma Cirrhosis of liver without ascites Depression Diabetes mellitus, insulin dependent (IDDM), uncontrolled Flank pain GERD (gastroesophageal reflux disease) Hepatitis C HTN (hypertension) Hyperlipidemia Kidney stone Mononeuritis Obese Panic disorder Renal stones Rheumatoid arthritis Surgical History History of esophagogastroduodenoscopy (EGD) Hx of cholecystectomy Hx of lithotripsy Family History Family History Father No problems noted. Mother Diabetes mellitus Sister Diabetes mellitus Brother No problems noted. Paternal Uncle Colon cancer Social History Social History Household Members: None Housing: Apartment Alcohol intake: current Alcohol intake frequency: does not drink Patient Tobacco Use Status: Current everyday Tobacco user Cigarettes Per Day: 2 Years Smoked: 15 Advance Directives: No Physical Exam ED Vital Signs: Vital Signs - 24 hr 11/10/21 20:23 Temperature 97.2 F Pulse Rate 80 Respiratory Rate 16 Blood Pressure 166/77 H Pulse Oximetry 99 BMI result Body Mass Index 28.1 VITAL SIGNS: Reviewed. GENERAL: Well developed, well nourished, in no acute distress. HEAD: Normocephalic/atraumatic EYES: PERRLA, EOMI intact without pain, no nystagmus EARS: Ext canals without abnormality OROPHARYNX: no oral lesions noted, posterior pharynx clear and non-erythematous without noted tonsillar enlargement/erythema/exudates NECK: Supple, no adenopathy LUNGS: Normal breath sounds. No adventitious sounds or accessory muscle use. SpO2<99> CARDIOVASCULAR: Regular rate and rhythm without noted murmurs, no JVD or lower extremity edema. ABDOMEN: Soft, slight epigastric pain without rebound, non-distended with bowel sounds. MUSCULOSKELETAL: No tenderness, deformities, or effusions noted on gross inspection. EXTREMITIES: No cyanosis, clubbing or edema. SKIN: Inspection of the skin reveals no rashes NEUROLOGIC: Alert and oriented x 4. Strength and sensation to light touch were grossly intact x 4. Course Course Course Narrative: 56-year-old female with history and clinical presentation suggestive of headache as well as acute on chronic gastritis/ulcer with the possibility of pancreatitis and/or renal colic. Review of all investigations negative for acute findings and on re-evaluation patient feels significantly improved and is requesting to be discharged home. She is otherwise hemodynamically stable. Patient is noted be hyperglycemic without evidence to suggest DKA or HHS and is otherwise tolerating oral intake. Medical Decision Making Lab Data Result diagrams: 11/10/21 20:25 11/10/21 20:25 Labs: Lab Results 11/10/21 11/10/21 11/10/21 Range/Units 20:25 20:25 20:25 WBC 4.7 L (4.8-10.8) X10*3/uL RBC 4.25 (4.20-5.50) X10*6/uL Hgb 11.8 L (12.0-16.0) g/dl Hct 34.7 L (37.0-47.0) % MCV 81.6 (80.0-98.0) fL MCH 27.8 (27.0-33.0) pg MCHC 34.0 (31.0-35.0) g/dl RDW 12.5 (11.0-16.0) % Plt Count 134 L (160-400) X10*3/uL MPV 10.6 (9.4-12.3) fL Immature Gran % (Auto) 0.2 (0.0-0.4) % Neut % (Auto) 54.8 (45-73) % Lymph % (Auto) 31.5 (20-40) % [place] % (Auto) 11.2 H (2-11) % Eos % (Auto) 2.1 (0-4) % Baso % (Auto) 0.2 (0-2) % Lymph # (Auto) 1.5 (1.2-4.9) X10*3/uL [place] # (Auto) 0.5 (0.1-1.2) X10*3/uL Eos # (Auto) 0.1 (0.0-0.4) X10*3/uL Baso # (Auto) 0.0 (0.0-0.2) X10*3/uL Abs Immat Gran (auto) 0.01 (0.00-0.03) X10*3/uL Absolute Neuts (auto) 2.6 (2.0-8.3) x10*3/uL Absolute Nucleated RBC 0.000 (0.0-0.012) X10*3/uL Nucleated RBC % (auto) 0.0 (0.0-0.2) /100WBC Sodium 138 (135-145) mmol/L Potassium 3.9 (3.3-5.1) mmol/L Chloride 105 (96-108) mmol/L Carbon Dioxide 24 (22-29) mmol/L Anion Gap 13 (12-20) BUN 12 (9-16) mg/dL Creatinine 1.53 H (0.5-1.4) mg/dL Estim Creat Clear Calc 38.1 Estimated GFR 35 POC Glucose (60-115) mg/dL Random Glucose 384 H* (60-115) mg/dL Calcium 9.7 (8.4-10.2) mg/dL Total Bilirubin 0.6 (0.0-1.0) mg/dL AST 93 H (5-31) U/L ALT 126 H (0-31) U/L Alkaline Phosphatase 204 H (39-117) U/L Total Protein 7.3 (6.5-8.0) g/dL Albumin 3.8 (3.5-5.0) g/dL Lipase 34 (8-78) U/L Urine Color Urine Appearance Urine pH (5.0-8.0) Ur Specific [place] (1.005-1.025) Urine Protein (NEG-TRACE) MG/DL Urine Glucose (UA) (NEG) MG/DL Urine Ketones (NEG) MG/DL Urine Blood (NEG) Urine Nitrite (NEG) Ur Leukocyte Esterase (NEG) Urine RBC (0) /HPF Urine WBC (0-4) /HPF Ur Squamous Epith Cells /LPF Amorphous Sediment /LPF Urine Bacteria /LPF Acetone, Qual Negative (Negative) COVID-19 (SAMI) (Negative) COVID-19 Clin Com Influenza Type A (FELI) Negative (Negative) Influenza Type B (FELI) Negative (Negative) Influenza A & B Note See Note 11/10/21 11/10/21 11/10/21 Range/Units 20:25 20:29 20:37 WBC (4.8-10.8) X10*3/uL RBC (4.20-5.50) X10*6/uL Hgb (12.0-16.0) g/dl Hct (37.0-47.0) % MCV (80.0-98.0) fL MCH (27.0-33.0) pg MCHC (31.0-35.0) g/dl RDW (11.0-16.0) % Plt Count (160-400) X10*3/uL MPV (9.4-12.3) fL Immature Gran % (Auto) (0.0-0.4) % Neut % (Auto) (45-73) % Lymph % (Auto) (20-40) % [place] % (Auto) (2-11) % Eos % (Auto) (0-4) % Baso % (Auto) (0-2) % Lymph # (Auto) (1.2-4.9) X10*3/uL [place] # (Auto) (0.1-1.2) X10*3/uL Eos # (Auto) (0.0-0.4) X10*3/uL Baso # (Auto) (0.0-0.2) X10*3/uL Abs Immat Gran (auto) (0.00-0.03) X10*3/uL Absolute Neuts (auto) (2.0-8.3) x10*3/uL Absolute Nucleated RBC (0.0-0.012) X10*3/uL Nucleated RBC % (auto) (0.0-0.2) /100WBC Sodium (135-145) mmol/L Potassium (3.3-5.1) mmol/L Chloride (96-108) mmol/L Carbon Dioxide (22-29) mmol/L Anion Gap (12-20) BUN (9-16) mg/dL Creatinine (0.5-1.4) mg/dL Estim Creat Clear Calc Estimated GFR POC Glucose 345 H (60-115) mg/dL Random Glucose (60-115) mg/dL Calcium (8.4-10.2) mg/dL Total Bilirubin (0.0-1.0) mg/dL AST (5-31) U/L ALT (0-31) U/L Alkaline Phosphatase (39-117) U/L Total Protein (6.5-8.0) g/dL Albumin (3.5-5.0) g/dL Lipase (8-78) U/L Urine Color YELLOW Urine Appearance HAZY Urine pH 6.0 (5.0-8.0) Ur Specific [place] 1.015 (1.005-1.025) Urine Protein TRACE (NEG-TRACE) MG/DL Urine Glucose (UA) >=1000 H (NEG) MG/DL Urine Ketones 5 (NEG) MG/DL Urine Blood NEG (NEG) Urine Nitrite NEG (NEG) Ur Leukocyte Esterase NEG (NEG) Urine RBC 0-2 (0) /HPF Urine WBC 1-4 (0-4) /HPF Ur Squamous Epith Cells 3+ /LPF Amorphous Sediment TRACE /LPF Urine Bacteria 2+ /LPF Acetone, Qual (Negative) COVID-19 (SAMI) Negative (Negative) COVID-19 Clin Com See Note Influenza Type A (FELI) (Negative) Influenza Type B (FELI) (Negative) Influenza A & B Note Discharge Plan Discharge Clinical Impression: Gastritis, GERD (gastroesophageal reflux disease), Hyperglycemia Patient Disposition: Home, Self-Care Instructions: Gastritis (ED), Diet for Stomach Ulcers and Gastritis (ED), Gastroesophageal Reflux Disease (ED), Diabetic Hyperglycemia (ED) Additional Instructions: 1. Reanudar todos los medicamentos caseros seg?n lo prescrito. 2. Le purcell recetado [place] para un alivio adicional de los s?ntomas de palmer gastritis. 3. De lo contrario, recomiende el uso de Tylenol/ibuprofeno de venta edward seg?n sea necesario para aliviar los s?ntomas. 4. [place] un seguimiento con palmer proveedor de atenci?n primaria en los pr?ximos 1 a 2 d?as. Para reevaluaci?n y manejo ambulatorio adicional. Regrese a la noelle de emergencias si los s?ntomas empeoran. Prescriptions: New ketorolac 10 mg tablet 10 mg PO Q6H PRN (Reason: pain) 5 Days Qty: 20 0RF Rx Instructions: 1. Patient received Toradol in the emergency room. 2. Patient needs to stop all other NSAIDs: Ibuprofen, Motrin, Aleve, Naprosyn, Mobic No Action Mavyret 100-40 mg tablet 3 tab PO DAILY 56 Days Qty: 168 0RF Rx Instructions: must administer with a meal/food ibuprofen 600 mg tablet 600 mg PO TID PRN (Reason: pain) Qty: 14 0RF Lantus U-100 Insulin 100 unit/mL solution 60 unit subcut BEDTIME 0RF amlodipine 5 mg tablet 1 tab PO QAM 0RF Flovent HFA 220 mcg/actuation HFA aerosol inhaler 1 puff PO BID 0RF insulin lispro [Humalog U-100 Insulin] 100 unit/mL solution 20 unit subcut TIDAC 0RF metoprolol succinate 25 mg tablet extended release 24 hr 0.5 tab PO QAM 0RF ondansetron 4 mg tablet,disintegrating 4 mg PO Q6-8H PRN (Reason: nausea and vomiting) Qty: 14 0RF cyclobenzaprine 5 mg tablet 10 mg PO TID PRN (Reason: Muscle Spasm) 0RF albuterol sulfate [Ventolin HFA] 90 mcg/actuation HFA aerosol inhaler 2 puff inhalation Q6H PRN (Reason: Shortness Of Breath) 0RF loperamide [Imodium A-D] 2 mg tablet 2 mg PO Q6H PRN (Reason: Loose Stool) 0RF gabapentin 300 mg capsule 300 mg PO TID 0RF simvastatin 20 mg tablet 20 mg PO DAILY 0RF trazodone 100 mg tablet 100 mg PO DAILY 0RF omeprazole 20 mg capsule,delayed release(DR/EC) 20 mg PO DAILY 0RF lisinopril 40 mg tablet 40 mg PO DAILY 0RF aspirin [Adult Low Dose Aspirin] 81 mg tablet,delayed release (DR/EC) 81 mg PO DAILY 0RF (DME) inhalational spacing device Spacer See Rx Instructions .ROUTE .MEDSUPPLY Qty: 1 0RF Rx Instructions: As directed Referrals: [place] [Primary Care Provider] - Print Language: Yakut
[2021-11-10] MEDS: Sucralfate Oral Suspension 1 GM/10 ML ORAL.SUSP PO (23:26)
[2021-11-10] MEDS: Lidocaine HCl Viscous 2 % 15 ML SOLUTION 10 ML MUCOUS MEM (23:26)
[2021-11-10] MEDS: Magnesium Hydrox/Alum Hydrox 30 ML ORAL.SUSP PO (23:27)
[2021-11-10 23:55] LABS: Lipase 34 U/L (8-78)
--- NOTE | 2021-11-11 00:09 | PC.NURSE ---
DR LEIGH AWARE OF POC PT WILL GO HOME AND TAKE INSULIN.
== END 2021-11-11 00:10 | disposition home or self-care (01) ==
PROVIDERS: Emergency Provider Student in an Organized Health Care Education/Training Program
DX: K29.70 Gastritis, unspecified, without bleeding (principal); K21.9 Gastro-esophageal reflux disease without esophagitis; E11.65 Type 2 diabetes mellitus with hyperglycemia; Z20.822 Contact with and (suspected) exposure to COVID-19; E78.5 Hyperlipidemia, unspecified; I10 Essential (primary) hypertension; F17.200 Nicotine dependence, unspecified, uncomplicated; Z79.82 Long term (current) use of aspirin; Z79.899 Other long term (current) drug therapy; Z79.02 Long term (current) use of antithrombotics/antiplatelets; Z79.4 Long term (current) use of insulin
CPT/HCPCS: 80053; 81001; 82009; 82947; 83690; 85025; 87502; 87635; 96372; 99284; J1885

== ENCOUNTER 2022-01-12 14:16 | Emergency (ER) | payer MEDICAID, SELFPAY ==
--- NOTE | ~2022-01-12 | CT_ITS ---
EXAMINATION: CT ABDOMEN AND PELVIS WITHOUT CONTRAST CLINICAL INFORMATION: Right flank/abdominal pain. COMPARISON: 10/03/2020 CT scan of the abdomen and pelvis. TECHNIQUE: Multidetector volumetric imaging was performed from the superior aspect of the liver through the pubic symphysis. Sagittal and coronal reformatted images were obtained on the technologist's workstation. Lack of intravenous and oral contrast limits evaluation. This CT examination was performed using dose optimization techniques as appropriate, variously including the following: *Automated exposure control *Adjustment of mA and/or kV according to patient size (this includes techniques or standardized protocols for targeted exams where dose is matched to indication/reason for exam; i.e. extremities or head) *Use of iterative reconstruction technique DLP: 751 mGy-cm FINDINGS: LUNG BASES: The visualized lung bases are unremarkable. LIVER, GALLBLADDER, AND BILIARY TREE: Hepatic cirrhosis without focal abnormality. Status post cholecystectomy. No significant biliary ductal dilatation. PANCREAS: Unremarkable. SPLEEN: 15.3 cm (image 15, series 6). Several tiny calcifications. ADRENAL GLANDS: Unremarkable. KIDNEYS AND URETERS: Left lower pole intrarenal calculus measuring 1.0 cm (image 69, series 7). Multiple punctate intrarenal calculi bilaterally. No hydronephrosis. BLADDER: Unremarkable. GASTROINTESTINAL TRACT: The stomach, small bowel and appendix are unremarkable. The colon shows minimal diverticulosis without surrounding abnormality. The rectum is unremarkable. ABDOMINAL WALL: No significant hernia is appreciated. LYMPH NODES: No lymphadenopathy. VASCULAR: Unremarkable. PELVIC VISCERA: Unremarkable. OSSEOUS STRUCTURES: Unremarkable. CT/CT abdomen pelvis wo con IMPRESSION: 1. No acute intra-abdominal/pelvic abnormality to explain the patient's pain. 2. Hepatic cirrhosis and splenomegaly. 3. Nonobstructing intrarenal calculi bilaterally. No hydronephrosis. 4. Minimal colonic diverticulosis without evidence for acute diverticulitis. Normal appendix without evidence for acute appendicitis. Fleischner guidelines were followed.
[2022-01-12 14:19] VITALS: BP 124/79; PULSE 78; RESP 20; TEMP 35.9; O2SAT 96; BMI 29.9
[2022-01-12 14:30] LABS: MANUAL DIFF FLAG NO
[2022-01-12 14:33] LABS: Basophils Percent Auto 0.2 % (0-2); Eosinophils Absolute Auto 0.1 X10*3/uL (0.0-0.4); Eosinophils Percent Auto 2.5 % (0-4); Hematocrit 36.6 % (37.0-47.0); Hemoglobin 12.1 g/dl (12.0-16.0); Imm Gran Abs Auto 0.01 X10*3/uL (0.00-0.03); Imm Gran Pct Auto 0.2 % (0.0-0.4); Lymphocytes Absolute Auto 1.8 X10*3/uL (1.2-4.9); Lymphocytes Percent Auto 32.5 % (20-40); Mean Corpuscular HGB Conc 33.1 g/dl (31.0-35.0); Mean Corpuscular Hemoglobin 27.4 pg (27.0-33.0); Mean Platelet Volume 10.9 fL (9.4-12.3); Monocytes Absolute Auto 0.5 X10*3/uL (0.1-1.2); Monocytes Percent Auto 9.2 % (2-11); Neutrophils Absolute Auto 3.2 x10*3/uL (2.0-8.3); Neutrophils Percent Auto 55.4 % (45-73); Platelet Count 123 X10*3/uL (160-400); Red Blood Count 4.41 X10*6/uL (4.20-5.50); Red Cell Distribution Width 12.4 % (11.0-16.0); White Blood Count 5.7 X10*3/uL (4.8-10.8)
[2022-01-12 15:16] LABS: Alanine Aminotransferase 121 U/L (0-31); Albumin Level 3.8 g/dL (3.5-5.0); Alkaline Phosphatase 229 U/L (39-117); Anion Gap 10 (12-20); Aspartate Amino Transferase 84 U/L (5-31); Bilirubin Total 0.4 mg/dL (0.0-1.0); Blood Urea Nitrogen 13 mg/dL (9-16); Calcium 9.2 mg/dL (8.4-10.2); Carbon Dioxide 26 mmol/L (22-29); Chloride 103 mmol/L (96-108); Creatinine Clr Calc Pharmacy 50.1; Estimated Glomerular Filt Rate 46; Glucose Random 346 mg/dL (60-115); Potassium 4.4 mmol/L (3.3-5.1); Sodium 135 mmol/L (135-145); Total Protein 7.4 g/dL (6.5-8.0)
[2022-01-12 15:19] LABS: Appearance Urine HAZY; Color Urine YELLOW; Glucose Urine UA >=1000 MG/DL (NEG); Leukocyte Esterase Urine TRACE (NEG); Nitrite Urine NEG (NEG); Urine Blood NEG (NEG); Urine Ketones NEG (NEG); Urine Protein NEG (NEG-TRACE)
[2022-01-12 15:28] LABS: Bacteria Urine 1+ /LPF; RBC Urine 0 /HPF (0); Squamous Epithelial Cell Urine 2+ /LPF; WBC Urine 0-2 /HPF (0-4)
--- NOTE | 2022-01-12 16:38 | ED_ITS ---
HPI - Abdominal Pain General Chief Complaint: Abdominal Pain Stated Complaint: abd pain Time Seen by Provider: 01/12/22 16:28 Source: patient Mode of arrival: ambulatory Limitations: no limitations History of Present Illness HPI narrative: 56 yo female with a past medical history of previous gastric ulcer, gastritis, occasional alcohol drinker, IDDM, hepatitis C cirrhosis, HTN, HLD, renal colic, anxiety, bipolar, asthma, GERD here with complaints of 1 week of right sided abdominal pain with radiation from the back which is constant described as burning and worsened with eating. No nausea, vomiting, diarrhea, constipation, urinary symptoms, fevers, chills. She has history of cholecystectomy. Does have known right sided renal stones and has appt for procedure on 01/23 with urology (Stevie). Has not seen GI in many years but is taking a PPI. No black or bloody stools. Related Data Home Medications Medication Instructions Recorded Confirmed albuterol sulfate 90 mcg/actuation 2 puff inhalation Q6H PRN 07/28/20 09/15/21 aerosol inhaler (Ventolin HFA) Shortness Of Breath aspirin 81 mg tablet,delayed 81 mg PO DAILY 07/28/20 09/15/21 release (Adult Low Dose Aspirin) cyclobenzaprine 5 mg tablet 10 mg PO TID PRN Muscle Spasm 07/28/20 09/15/21 gabapentin 300 mg capsule 300 mg PO TID 07/28/20 09/15/21 lisinopril 40 mg tablet 40 mg PO DAILY 07/28/20 09/15/21 loperamide 2 mg tablet (Imodium 2 mg PO Q6H PRN Loose Stool 07/28/20 09/15/21 A-D) omeprazole 20 mg capsule,delayed 20 mg PO DAILY 07/28/20 09/15/21 release simvastatin 20 mg tablet 20 mg PO DAILY 07/28/20 09/15/21 trazodone 100 mg tablet 100 mg PO DAILY 07/28/20 09/15/21 amlodipine 5 mg tablet 1 tab PO QAM 10/19/20 09/15/21 fluticasone propionate 220 1 puff PO BID 10/19/20 09/15/21 mcg/actuation HFA aerosol inhaler (Flovent HFA) insulin glargine 100 unit/mL 60 unit subcut BEDTIME 10/19/20 09/15/21 subcutaneous solution (Lantus U-100 Insulin) insulin lispro 100 unit/mL 20 unit subcut TIDAC 10/19/20 09/15/21 subcutaneous solution (Humalog U-100 Insulin) metoprolol succinate 25 mg 0.5 tab PO QAM 10/25/20 09/15/21 tablet,extended release 24 hr Previous Rx's Medication Instructions Recorded ibuprofen 600 mg tablet 600 mg PO TID PRN pain #14 tabs 10/03/20 glecaprevir 100 mg-pibrentasvir 40 3 tab PO DAILY 8 weeks #168 tabs 10/26/20 mg tablet (Mavyret) inhalational spacing device #1 ea 11/23/20 ondansetron 4 mg disintegrating 4 mg PO Q6-8H PRN nausea and 01/02/21 tablet vomiting #14 tabs ketorolac 10 mg tablet 10 mg PO Q6H PRN pain 5 days #20 11/11/21 tabs sucralfate 1 gram tablet (Carafate) 1 g PO TID #90 tabs 01/12/22 Allergies Allergy/AdvReac Type Severity Reaction Status Date / Time No Known Allergies Allergy Mild NOT Verified 09/15/21 13:32 APPLICABLE Review of Systems Review of Systems Yes all other systems are reviewed and are negative Constitutional: Reports no additional constitutional complaints, Denies body ache(s), Denies chills, Denies fever(s), Denies headache(s) and Denies weakness Eyes: Reports no additional eye complaints and Denies change in vision Reports system reviewed and no additional complaints, except as documented, Denies dizziness, Denies headache(s), Denies nasal congestion, Denies nasal discharge and Denies neck pain Cardiovascular: Reports no additional cardiovascular complaints, Denies chest pain, Denies leg edema and Denies dyspnea Respiratory: Reports no additional respiratory complaints, Denies cough and Denies dyspnea Gastrointestinal: Reports no additional gastrointestinal complaints, Reports abdominal pain, Denies diarrhea, Denies nausea and Denies vomiting Genitourinary: Reports no additional female genitourinary complaints and Denies urinary incontinence Musculoskeletal: Reports no additional musculoskeletal complaints, Reports back pain, Denies arthralgias, Denies joint swelling, Denies neck pain, Denies numbne ss and Denies tingling Skin/Breast: Reports system reviewed and no additional complaints, except as docu and Denies rash Reports system reviewed and no additional complaints, except as documented, Denies dizziness, Denies headache(s), Denies numbness, Denies tingling and Danny es weakness [facility] Past Medical History Attestation statement: The following information was validated with the patient. Source: old records reviewed and nursing notes reviewed Medical History Abdominal distension (gaseous) Anxiety Benign neoplasm of pituitary gland and craniopharyngeal duct Bipolar disorder Chronic hepatitis C without hepatic coma Cirrhosis of liver without ascites Depression Diabetes mellitus, insulin dependent (IDDM), uncontrolled GERD (gastroesophageal reflux disease) HTN (hypertension) Hyperlipidemia Kidney stone Mononeuritis Obese Panic disorder Rheumatoid arthritis Surgical History History of esophagogastroduodenoscopy (EGD) Hx of cholecystectomy Hx of lithotripsy Family History Family History Father No problems noted. Mother Diabetes mellitus Sister Diabetes mellitus Brother No problems noted. Paternal Uncle Colon cancer Social History Social History Household Members: None Housing: Apartment Alcohol intake: current Alcohol intake frequency: does not drink Patient Tobacco Use Status: Current everyday Tobacco user Cigarettes Per Day: 2 Years Smoked: 15 Advance Directives: No Advance Directives Information Provided: No Physical Exam ED Vital Signs: Vital Signs - 24 hr 01/12/22 14:19 01/12/22 17:14 Temperature 96.7 F L 99.3 F Pulse Rate 78 57 Respiratory Rate 20 16 Blood Pressure 124/79 134/70 Pulse Oximetry 96 97 Oxygen Delivery Method Room Air Room Air BMI result Body Mass Index 29.9 Const General: cooperative, healthy appearing and comfortable Orientation/consciousness: patient oriented x3 Limitations: no limitations HENMT Head: Yes normal to inspection Ears: hearing grossly normal bilaterally Eyes General: appearance normal, both eyes and all related structures Neck Neck: Yes normal visual inspection, Yes full ROM and Yes no lymphadenopathy Chest Chest palpation & inspection: normal inspection of the chest Resp Effort & Inspection: normal respiratory effort Auscultation: clear to auscultation bilaterally Cardio Rate: regular rate Rhythm: regular rhythm Peripheral pulses: Peripheral pulses 2+ throughout GI Inspection: Yes normal to inspection Palpation (GI): Soft to palpation and Tenderness to palpation present (GI) (right sided-no rebound or guarding ) Auscultation: normal bowel sounds Other: patient reports pain to lumbar soft tissue right side General: Yes no CVA tenderness Back/Spine/Pelvis Back: no CVA tenderness Skin General skin exam: no rashes or lesions noted Neuro General: patient oriented x3 and moves all extremities Cognition (Neuro): normal cognition Gait exam (Neuro): Normal gait present Extrem General: Yes normal to inspection Course Course Course Narrative: 56 yo female with history of known renal stones, gastritis, gastric ulcers here with 1 week of right sided low back pain with radiation to right abdomen with no other symptoms. Will check labs, UA, CT Reevaluation(s) Reevaluation #1: CT IMPRESSION: 1. No acute intra-abdominal/pelvic abnormality to explain the patient's pain. 2. Hepatic cirrhosis and splenomegaly. 3. Nonobstructing intrarenal calculi bilaterally. No hydronephrosis. 4. Minimal colonic diverticulosis without evidence for acute diverticulitis. Normal appendix without evidence for acute appendicitis. Labs at baseline. UA negative. GIven GI cocktail with improvement. Tolerating PO. Had appt recently for GI but patient missed appointment. I recommended she follow-up with them outpatient to have an endoscopy/colonoscopy outpatient. Reviewed worrisome signs/symptoms with patient and when to seek additional care. Comfortable with discharge home. Time: 17:56 MDM - Abdominal Pain MDM Narrative Medical decision making narrative: renal colic Medical Records Attestation: I reviewed the patient's medical records. Lab Data Attestation: I reviewed the patient's lab results. Result diagrams: 01/12/22 14:25 01/12/22 14:25 Labs: Lab Results 01/12/22 01/12/22 01/12/22 Range/Units 14:25 14:25 15:07 WBC 5.7 (4.8-10.8) X10*3/uL RBC 4.41 (4.20-5.50) X10*6/uL Hgb 12.1 (12.0-16.0) g/dl Hct 36.6 L (37.0-47.0) % MCV 83.0 (80.0-98.0) fL MCH 27.4 (27.0-33.0) pg MCHC 33.1 (31.0-35.0) g/dl RDW 12.4 (11.0-16.0) % Plt Count 123 L (160-400) X10*3/uL MPV 10.9 (9.4-12.3) fL Immature Gran % (Auto) 0.2 (0.0-0.4) % Neut % (Auto) 55.4 (45-73) % Lymph % (Auto) 32.5 (20-40) % Ross % (Auto) 9.2 (2-11) % Eos % (Auto) 2.5 (0-4) % Baso % (Auto) 0.2 (0-2) % Lymph # (Auto) 1.8 (1.2-4.9) X10*3/uL Ross # (Auto) 0.5 (0.1-1.2) X10*3/uL Eos # (Auto) 0.1 (0.0-0.4) X10*3/uL Baso # (Auto) 0.0 (0.0-0.2) X10*3/uL Abs Immat Gran (auto) 0.01 (0.00-0.03) X10*3/uL Absolute Neuts (auto) 3.2 (2.0-8.3) x10*3/uL Absolute Nucleated RBC 0.000 (0.0-0.012) X10*3/uL Nucleated RBC % (auto) 0.0 (0.0-0.2) /100WBC Sodium 135 (135-145) mmol/L Potassium 4.4 (3.3-5.1) mmol/L Chloride 103 (96-108) mmol/L Carbon Dioxide 26 (22-29) mmol/L Anion Gap 10 L (12-20) BUN 13 (9-16) mg/dL Creatinine 1.20 (0.5-1.4) mg/dL Estim Creat Clear Calc 50.1 Estimated GFR 46 Random Glucose 346 H (60-115) mg/dL Calcium 9.2 (8.4-10.2) mg/dL Total Bilirubin 0.4 (0.0-1.0) mg/dL AST 84 H (5-31) U/L ALT 121 H (0-31) U/L Alkaline Phosphatase 229 H (39-117) U/L Total Protein 7.4 (6.5-8.0) g/dL Albumin 3.8 (3.5-5.0) g/dL Lipase 32 (8-78) U/L Urine Color YELLOW Urine Appearance HAZY Urine pH 6.0 (5.0-8.0) Ur Specific [place] 1.020 (1.005-1.025) Urine Protein NEG (NEG-TRACE) MG/DL Urine Glucose (UA) >=1000 H (NEG) MG/DL Urine Ketones NEG (NEG) MG/DL Urine Blood NEG (NEG) Urine Nitrite NEG (NEG) Ur Leukocyte Esterase TRACE H (NEG) Urine RBC 0 (0) /HPF Urine WBC 0-2 (0-4) /HPF Ur Squamous Epith Cells 2+ /LPF Urine Bacteria 1+ /LPF Imaging Data CT scan - abdomen: Attestation: I personally reviewed and interpreted this imaging study as follows: Radiologist's impression: [place] [id number] CT Scan Report Signed Patient: Tank Max MR#: [id number] : 1965 Acct:[id number] Age/Sex: 56 / F ADM Date: 01/12/22 Loc: .ED Attending Dr: Ordering Physician: Kriss Ibarra NP Date of Service: 01/12/22 Procedure(s): CT abdomen pelvis wo con Accession Number(s): [id number] cc: Kriss Ibarra NP~ EXAMINATION: CT ABDOMEN AND PELVIS WITHOUT CONTRAST? CLINICAL INFORMATION: Right flank/abdominal pain.? COMPARISON: 10/03/2020 CT scan of the abdomen and pelvis.? TECHNIQUE: Multidetector volumetric imaging was performed from the superior aspect of the liver through the pubic symphysis. Sagittal and coronal reformatted images were obtained on the technologist's workstation. Lack of intravenous and oral contrast limits evaluation. This CT examination was performed using dose optimization techniques as appropriate, variously including the following: *Automated exposure control *Adjustment of mA and/or kV according to patient size (this includes techniques or standardized protocols for targeted exams where dose is matched to indication/reason for exam; i.e. extremities or head) *Use of iterative reconstruction technique DLP: 751 mGy-cm FINDINGS: LUNG BASES: The visualized lung bases are unremarkable.? LIVER, GALLBLADDER, AND BILIARY TREE: Hepatic cirrhosis without focal abnormality. Status post cholecystectomy. No significant biliary ductal dilatation. PANCREAS: Unremarkable.? SPLEEN: 15.3 cm (image 15, series 6). Several tiny calcifications. ADRENAL GLANDS: Unremarkable.? KIDNEYS AND URETERS: Left lower pole intrarenal calculus measuring 1.0 cm (image 69, series 7). Multiple punctate intrarenal calculi bilaterally. No hydronephrosis. BLADDER: Unremarkable.? GASTROINTESTINAL TRACT: The stomach, small bowel and appendix are unremarkable. The colon shows minimal diverticulosis without surrounding abnormality. The rectum is unremarkable.? ABDOMINAL WALL: No significant hernia is appreciated.? LYMPH NODES: No lymphadenopathy. VASCULAR: Unremarkable. PELVIC VISCERA: Unremarkable.? OSSEOUS STRUCTURES: Unremarkable.? CT/CT abdomen pelvis wo con IMPRESSION: 1. No acute intra-abdominal/pelvic abnormality to explain the patient's pain. 2. Hepatic cirrhosis and splenomegaly. 3. Nonobstructing intrarenal calculi bilaterally. No hydronephrosis. 4. Minimal colonic diverticulosis without evidence for acute diverticulitis. Normal appendix without evidence for acute appendicitis. Discharge Plan Discharge Clinical Impression: Abdominal pain Patient Disposition: Home, Self-Care Instructions: Abdominal Pain (ED) Additional Instructions: Follow-up with your scheduled appointment with urology You need to follow-up with gastroenterology [place] diet Continue your home medications Prescriptions: New sucralfate [Carafate] 1 gram tablet 1 g PO TID Qty: 90 0RF No Action Mavyret 100-40 mg tablet 3 tab PO DAILY 56 Days Qty: 168 0RF Rx Instructions: must administer with a meal/food ibuprofen 600 mg tablet 600 mg PO TID PRN (Reason: pain) Qty: 14 0RF Lantus U-100 Insulin 100 unit/mL solution 60 unit subcut BEDTIME amlodipine 5 mg tablet 1 tab PO QAM Flovent HFA 220 mcg/actuation HFA aerosol inhaler 1 puff PO BID insulin lispro [Humalog U-100 Insulin] 100 unit/mL solution 20 unit subcut TIDAC metoprolol succinate 25 mg tablet extended release 24 hr 0.5 tab PO QAM ondansetron 4 mg tablet,disintegrating 4 mg PO Q6-8H PRN (Reason: nausea and vomiting) Qty: 14 0RF ketorolac 10 mg tablet 10 mg PO Q6H PRN (Reason: pain) 5 Days Qty: 20 0RF Rx Instructions: 1. Patient received Toradol in the emergency room. 2. Patient needs to stop all other NSAIDs: Ibuprofen, Motrin, Aleve, Naprosyn, Mobic cyclobenzaprine 5 mg tablet 10 mg PO TID PRN (Reason: Muscle Spasm) albuterol sulfate [Ventolin HFA] 90 mcg/actuation HFA aerosol inhaler 2 puff inhalation Q6H PRN (Reason: Shortness Of Breath) loperamide [Imodium A-D] 2 mg tablet 2 mg PO Q6H PRN (Reason: Loose Stool) gabapentin 300 mg capsule 300 mg PO TID simvastatin 20 mg tablet 20 mg PO DAILY trazodone 100 mg tablet 100 mg PO DAILY omeprazole 20 mg capsule,delayed release(DR/EC) 20 mg PO DAILY lisinopril 40 mg tablet 40 mg PO DAILY aspirin [Adult Low Dose Aspirin] 81 mg tablet,delayed release (DR/EC) 81 mg PO DAILY (DME) inhalational spacing device Spacer See Rx Instructions .ROUTE .MEDSUPPLY Qty: 1 0RF Rx Instructions: As directed Referrals: Ashlie Maldonado MD [Physician] - 1 week Interventions: ED Discharge Assessment Last Done: 01/12/22 18:09 Discharge Date/Time: 01/12/22 18:09
[2022-01-12 17:04] LABS: Lipase 32 U/L (8-78)
[2022-01-12 17:14] VITALS: BP 134/70; PULSE 57; RESP 16; TEMP 37.4; O2SAT 97
[2022-01-12] MEDS: Lidocaine HCl Viscous 2 % 15 ML SOLUTION MUCOUS MEM (18:04)
[2022-01-12] MEDS: Magnesium Hydrox/Alum Hydrox 30 ML ORAL.SUSP PO (18:04)
== END 2022-01-12 18:09 | disposition home or self-care (01) ==
PROVIDERS: Nurse Practitioner Family; Student in an Organized Health Care Education/Training Program; Emergency Provider Emergency Medicine Emergency Medical Services
DX: R10.9 Unspecified abdominal pain (principal); N20.0 Calculus of kidney; E11.9 Type 2 diabetes mellitus without complications; I10 Essential (primary) hypertension; E78.5 Hyperlipidemia, unspecified; F17.200 Nicotine dependence, unspecified, uncomplicated; Z79.4 Long term (current) use of insulin; Z79.02 Long term (current) use of antithrombotics/antiplatelets; Z87.442 Personal history of urinary calculi
CPT/HCPCS: 36415; 74176; 80053; 81001; 83690; 85025; 99283; 99284

== ENCOUNTER → 2022-01-23 12:50 | Day surgery (SDC) | payer MEDICAID, SELFPAY ==
[2022-01-17 14:18] VITALS: BMI 29.9
--- NOTE | 2022-01-20 10:38 | HO.ANESPROP2 ---
HPI - Anesthesia Eval Consult details Narrative: 56yo F for Upper Endoscopy PMF Active Problems Active Problems: All Active Problems (Updated 01/13/22 @ 00:02 by Brandy Anthony) Cirrhosis (Acute) Calcaneal spur, left (Acute) Left foot pain (Acute) Bilateral hand pain (Acute) Adverse effect of COVID-19 vaccine (Acute) Sleep disorder, unspecified (Acute) COVID-19 (Acute) Asthma (Acute) Hepatitis C (Acute) Flank pain (Acute) Renal stones (Acute) Past Medical History Medical History Abdominal distension (gaseous) Anxiety Benign neoplasm of pituitary gland and craniopharyngeal duct Bipolar disorder Chronic hepatitis C without hepatic coma Cirrhosis of liver without ascites Depression Diabetes mellitus, insulin dependent (IDDM), uncontrolled GERD (gastroesophageal reflux disease) HTN (hypertension) Hyperlipidemia Kidney stone Mononeuritis Obese Panic disorder Rheumatoid arthritis Family History Family History Father No problems noted. Mother Diabetes mellitus Sister Diabetes mellitus Brother No problems noted. Paternal Uncle Colon cancer Surgical History Surgical History History of esophagogastroduodenoscopy (EGD) Hx of cholecystectomy Hx of lithotripsy Social History Social History Household Members: None Housing: Apartment Alcohol intake: current Alcohol intake frequency: does not drink Patient Tobacco Use Status: Current everyday Tobacco user Cigarettes Per Day: 2 Years Smoked: 15 Advance Directives: No Advance Directives Information Provided: No Meds Allergies Allergy/AdvReac Type Severity Reaction Status Date / Time No Known Allergies Allergy Mild NOT Verified 09/15/21 13:32 APPLICABLE Home Medications Medication Instructions Recorded Confirmed Last Taken Type albuterol sulfate 90 mcg/actuation 2 puff inhalation Q6H PRN 07/28/20 01/17/22 Unknown History aerosol inhaler (Ventolin HFA) Shortness Of Breath aspirin 81 mg tablet,delayed 81 mg PO DAILY 07/28/20 01/17/22 09/12/20 History release (Adult Low Dose Aspirin) cyclobenzaprine 5 mg tablet 10 mg PO TID PRN Muscle Spasm 07/28/20 01/17/22 Unknown History gabapentin 300 mg capsule 300 mg PO TID 07/28/20 01/17/22 Unknown History lisinopril 40 mg tablet 40 mg PO DAILY 07/28/20 01/17/22 10/25/20 08:00 History loperamide 2 mg tablet (Imodium 2 mg PO Q6H PRN Loose Stool 07/28/20 01/17/22 Unknown History A-D) omeprazole 20 mg capsule,delayed 20 mg PO DAILY 07/28/20 01/17/22 Unknown History release simvastatin 20 mg tablet 20 mg PO DAILY 07/28/20 01/17/22 Unknown History trazodone 100 mg tablet 100 mg PO DAILY 07/28/20 01/17/22 Unknown History amlodipine 5 mg tablet 1 tab PO QAM 10/19/20 01/17/22 10/25/20 08:00 History fluticasone propionate 220 1 puff PO BID 10/19/20 01/17/22 Unknown History mcg/actuation HFA aerosol inhaler (Flovent HFA) insulin glargine 100 unit/mL 60 unit subcut BEDTIME 10/19/20 01/17/22 Unknown History subcutaneous solution (Lantus U-100 Insulin) insulin lispro 100 unit/mL 20 unit subcut TIDAC 10/19/20 01/17/22 Unknown History subcutaneous solution (Humalog U-100 Insulin) metoprolol succinate 25 mg 0.5 tab PO QAM 10/25/20 01/17/22 10/25/20 08:00 History tablet,extended release 24 hr Exam Exam Date and Time: January 20, 2022 1038 Height,Weight and Vital Signs: Height 5 ft 3 in Weight 76.657 kg Pertinent Lab Results Pertinent Lab Results: Laboratory Tests 01/12/22 01/12/22 14:25 14:25 WBC 5.7 Hgb 12.1 Hct 36.6 L Plt Count 123 L Sodium 135 Potassium 4.4 Chloride 103 Carbon Dioxide 26 BUN 13 Creatinine 1.20 Calcium 9.2 Total Bilirubin 0.4 AST 84 H ALT 121 H Alkaline Phosphatase 229 H Total Protein 7.4 Albumin 3.8 Narrative Narrative: CT abdomen pelvis wo con 12/2021 IMPRESSION: 1. No acute intra-abdominal/pelvic abnormality to explain the patient's pain. 2. Hepatic cirrhosis and splenomegaly. 3. Nonobstructing intrarenal calculi bilaterally. No hydronephrosis. 4. Minimal colonic diverticulosis without evidence for acute diverticulitis. Normal appendix without evidence for acute appendicitis. ? Fleischner guidelines were followed. Assessment and Plan Assessment Anesthesia Assessment: Chart Reviewed
--- NOTE | 2022-01-23 13:08 | PC.NURSE ---
Patient arrived to Short Stay Surgery an hour late. Track Grinder at bedside. Patient stated I thought the appointment was at 1245 , patient apologetic. When patient was asked what procedure she was having today she stated kidney stone removal with the tall doctor, Dr. Hubbard . This nurse explained that the procedure that was scheduled today was an Upper Endoscopy with Dr. Maldonado. Patient stated She gave me medication months ago for pain in my belly that worked, I do not want this procedure . This nurse asked if she wanted to discuss this with Dr. Maldonado, patient declined. Patient adamant about not wanting upper endoscopy today. Phone number to Dr. Hubbard's office provided for patient to schedule procedure for kidney stones. Patient left to home. Dr. Maldonado aware.
== END ==
PROVIDERS: Visit Provider Internal Medicine Gastroenterology
DX: K74.60 Unspecified cirrhosis of liver (principal); Z53.29 Procedure and treatment not carried out because of patient's decision for other reasons

== ENCOUNTER → 2022-03-02 10:51 | Outpatient (BNVA) | payer MEDICAID, SELFPAY | PROVIDERS: PCP Nurse Practitioner Primary Care; Visit Provider Internal Medicine Gastroenterology | DX: K74.60 Unspecified cirrhosis of liver (principal); B19.20 Unspecified viral hepatitis C without hepatic coma | CPT/HCPCS: 99212 ==

== ENCOUNTER 2022-05-05 12:19 | Day surgery (SDC) | payer MEDICAID, SELFPAY ==
[2022-05-03 10:58] VITALS: BMI 28.8
--- NOTE | 2022-05-04 13:22 | P.CONAN_ITS ---
Documented by User: Karmen Fenton NP 05/04/22 13:29 HPI - Anesthesia Eval Consult details Narrative: 57yo F for Upper Endoscopy Cirrhosis without ascites PMFSH Active Problems Active Problems: All Active Problems (Updated 01/13/22 @ 00:02 by Brandy Anthony) Cirrhosis (Acute) Calcaneal spur, left (Acute) Left foot pain (Acute) Bilateral hand pain (Acute) Adverse effect of COVID-19 vaccine (Acute) Sleep disorder, unspecified (Acute) COVID-19 (Acute) Asthma (Acute) Hepatitis C (Acute) Flank pain (Acute) Renal stones (Acute) Past Medical History Medical History Abdominal distension (gaseous) Anxiety Benign neoplasm of pituitary gland and craniopharyngeal duct Bipolar disorder Chronic hepatitis C without hepatic coma Cirrhosis of liver without ascites Depression Diabetes mellitus, insulin dependent (IDDM), uncontrolled GERD (gastroesophageal reflux disease) HTN (hypertension) Hyperlipidemia Kidney stone Mononeuritis Obese Panic disorder Rheumatoid arthritis Family History Family History Father No problems noted. Mother Diabetes mellitus Sister Diabetes mellitus Brother No problems noted. Paternal Uncle Colon cancer Surgical History Surgical History History of esophagogastroduodenoscopy (EGD) Hx of cholecystectomy Hx of lithotripsy Social History Social History Household Members: None Housing: Apartment Alcohol intake: current Alcohol intake frequency: holidays/special occasions only Patient Tobacco Use Status: Current everyday Tobacco user Tobacco use type: Cigarette Cigarettes Per Day: 2 Years Smoked: 15 Patient Given Instructions on How to Stop Smoking: Yes Date Education Initiated: 05/05/22 Use of substances other than those prescribed or required for medical reasons: No Advance Directives: No Advance Directives Information Provided: Yes Meds Allergies Allergy/AdvReac Type Severity Reaction Status Date / Time No Known Allergies Allergy Mild NOT Verified 03/02/22 10:58 APPLICABLE Home Medications Medication Instructions Recorded Confirmed Last Taken Type albuterol sulfate 90 mcg/actuation 2 puff inhalation Q6H PRN 07/28/20 03/02/22 Unknown History aerosol inhaler (Ventolin HFA) Shortness Of Breath aspirin 81 mg tablet,delayed 81 mg PO DAILY 07/28/20 03/02/22 09/12/20 History release (Adult Low Dose Aspirin) cyclobenzaprine 5 mg tablet 10 mg PO TID PRN Muscle Spasm 07/28/20 03/02/22 Unknown History gabapentin 300 mg capsule 300 mg PO TID 07/28/20 03/02/22 Unknown History lisinopril 40 mg tablet 40 mg PO DAILY 07/28/20 03/02/22 10/25/20 08:00 History loperamide 2 mg tablet (Imodium 2 mg PO Q6H PRN Loose Stool 07/28/20 03/02/22 Unknown History A-D) omeprazole 20 mg capsule,delayed 20 mg PO DAILY 07/28/20 03/02/22 Unknown History release simvastatin 20 mg tablet 20 mg PO DAILY 07/28/20 03/02/22 Unknown History trazodone 100 mg tablet 100 mg PO DAILY 07/28/20 03/02/22 Unknown History amlodipine 5 mg tablet 1 tab PO QAM 10/19/20 03/02/22 10/25/20 08:00 History fluticasone propionate 220 1 puff PO BID 10/19/20 03/02/22 Unknown History mcg/actuation HFA aerosol inhaler (Flovent HFA) insulin glargine 100 unit/mL 60 unit subcut BEDTIME 10/19/20 03/02/22 Unknown History subcutaneous solution (Lantus U-100 Insulin) insulin lispro 100 unit/mL 20 unit subcut TIDAC 10/19/20 03/02/22 Unknown History subcutaneous solution (Humalog U-100 Insulin) metoprolol succinate 25 mg 0.5 tab PO QAM 10/25/20 03/02/22 10/25/20 08:00 History tablet,extended release 24 hr Exam Exam Date and Time: May 04, 2022 1322 Height,Weight and Vital Signs: Height 5 ft 3 in Weight 73.936 kg Pertinent Lab Results Pertinent Lab Results: Laboratory Tests 01/12/22 14:25 Sodium 135 Potassium 4.4 Chloride 103 Carbon Dioxide 26 BUN 13 Creatinine 1.20 Narrative Narrative: EKG 2020 Vent. Rate : 056 BPM ? ? Atrial Rate : 056 BPM ?? P-R Int : 144 ms? QRS Dur : 090 ms ? ? QT Int : 442 ms ? ? ? P-R-T Axes : 030 -23 143 degrees ?? QTc Int : 426 ms ? Sinus bradycardia with occasional Premature ventricular complexes Left ventricular hypertrophy with repolarization abnormality Cannot rule out Septal infarct , age undetermined Abnormal ECG When compared with ECG of 07-JAN-2020 15:27, Premature ventricular complexes are now Present CT abdomen pelvis wo con 12/2021 IMPRESSION: 1. No acute intra-abdominal/pelvic abnormality to explain the patient's pain. 2. Hepatic cirrhosis and splenomegaly. 3. Nonobstructing intrarenal calculi bilaterally. No hydronephrosis. 4. Minimal colonic diverticulosis without evidence for acute diverticulitis. Normal appendix without evidence for acute appendicitis. ? Fleischner guidelines were followed. Assessment and Plan Assessment Anesthesia Assessment: Chart Reviewed Documented by User: Lesley Ballard MD 05/05/22 13:18 [facility] Past Medical History Medical History Abdominal distension (gaseous) Anxiety Benign neoplasm of pituitary gland and craniopharyngeal duct Bipolar disorder Chronic hepatitis C without hepatic coma Cirrhosis of liver without ascites Depression Diabetes mellitus, insulin dependent (IDDM), uncontrolled GERD (gastroesophageal reflux disease) HTN (hypertension) Hyperlipidemia Kidney stone Mononeuritis Obese Panic disorder Rheumatoid arthritis Family History Family History Father No problems noted. Mother Diabetes mellitus Sister Diabetes mellitus Brother No problems noted. Paternal Uncle Colon cancer Family history of problems with anesthesia: No Surgical History Surgical History History of esophagogastroduodenoscopy (EGD) Hx of cholecystectomy Hx of lithotripsy History of Problems with Anesthesia: No Social History Social History Household Members: None Housing: Apartment Alcohol intake: current Alcohol intake frequency: holidays/special occasions only Patient Tobacco Use Status: Current everyday Tobacco user Tobacco use type: Cigarette Cigarettes Per Day: 2 Years Smoked: 15 Patient Given Instructions on How to Stop Smoking: Yes Date Education Initiated: 05/05/22 Use of substances other than those prescribed or required for medical reasons: No Advance Directives: No Advance Directives Information Provided: Yes Meds Allergies Allergy/AdvReac Type Severity Reaction Status Date / Time No Known Allergies Allergy Mild NOT Verified 03/02/22 10:58 APPLICABLE Home Medications Medication Instructions Recorded Confirmed Last Taken Type albuterol sulfate 90 mcg/actuation 2 puff inhalation Q6H PRN 07/28/20 03/02/22 Unknown History aerosol inhaler (Ventolin HFA) Shortness Of Breath aspirin 81 mg tablet,delayed 81 mg PO DAILY 07/28/20 03/02/22 09/12/20 History release (Adult Low Dose Aspirin) cyclobenzaprine 5 mg tablet 10 mg PO TID PRN Muscle Spasm 07/28/20 03/02/22 Unknown History gabapentin 300 mg capsule 300 mg PO TID 07/28/20 03/02/22 Unknown History lisinopril 40 mg tablet 40 mg PO DAILY 07/28/20 03/02/22 10/25/20 08:00 History loperamide 2 mg tablet (Imodium 2 mg PO Q6H PRN Loose Stool 07/28/20 03/02/22 Unknown History A-D) omeprazole 20 mg capsule,delayed 20 mg PO DAILY 07/28/20 03/02/22 Unknown History release simvastatin 20 mg tablet 20 mg PO DAILY 07/28/20 03/02/22 Unknown History trazodone 100 mg tablet 100 mg PO DAILY 07/28/20 03/02/22 Unknown History amlodipine 5 mg tablet 1 tab PO QAM 10/19/20 03/02/22 10/25/20 08:00 History fluticasone propionate 220 1 puff PO BID 10/19/20 03/02/22 Unknown History mcg/actuation HFA aerosol inhaler (Flovent HFA) insulin glargine 100 unit/mL 60 unit subcut BEDTIME 10/19/20 03/02/22 Unknown History subcutaneous solution (Lantus U-100 Insulin) insulin lispro 100 unit/mL 20 unit subcut TIDAC 10/19/20 03/02/22 Unknown History subcutaneous solution (Humalog U-100 Insulin) metoprolol succinate 25 mg 0.5 tab PO QAM 10/25/20 03/02/22 10/25/20 08:00 History tablet,extended release 24 hr Exam Airway Mallampati Class: II (Missing [id number] teeth) TM Dist: >3cm Neck ROM: Full Heart: rrr Lungs: cta Assessment and Plan Assessment Anesthesia Assessment: Anesthesia Plan Discussed Final Anesthetic Review Family History of Problems with Anesthesia: No History of Problems with Anesthesia: No NPO: Yes ASA Class: III Final Preanesthetic Review: No Changes in Pt Med Stat, Meds/Allgs Chart Reviewed and Consent Obtained/Reviewed Patient Risk: Intermediate Procedure Risk: Intermediate Anesthetic Plan Anesthetic Plan: MAC: Disposition: Standard PACU
[2022-05-05 12:32] VITALS: BP 155/87; PULSE 57; RESP 17; TEMP 36.2; O2SAT 97; BMI 30.9
[2022-05-05 12:41] VITALS: BMI 30.9
[2022-05-05] MEDS: Lactated Ringers 1,000 ML 50 ML IVCONT (12:53)
--- NOTE | 2022-05-05 12:55 | MHC.SHP ---
Pre-Procedural Eval Section A Date of Service: 05/08/22 The patient is an INPATIENT: No The History & Physical has been completed within 30 days and I have reviewed it.: No Section B Chief Complaint: cirrhosis screen for varices, follow-up of PUD Details of Present Illness: cirrhosis screen for varices, follow-up of PUD Relevant Family History (Specify if Yes): No Relevant Social History: Tobacco Use Present Medications: see Short Stay Collaborative assessment Medical History: Significant History (Anxiety Benign neoplasm of pituitary gland and craniopharyngeal duct Bipolar disorder Chronic hepatitis C without hepatic coma Cirrhosis of liver without ascites Depression Diabetes mellitus, insulin dependent (IDDM), uncontrolled GERD (gastroesophageal reflux disease) HTN (hypertension) Hyperlipide) History of Previous Operations: Relevant previous surgery/procedure and date(s) (History of esophagogastroduodenoscopy (EGD) Hx of cholecystectomy Hx of lithotripsy) Allergies: Allergies Allergy/AdvReac Type Severity Reaction Status Date / Time No Known Allergies Allergy Mild NOT Verified 03/02/22 10:58 APPLICABLE Review of Systems Sugical H&P ROS: Negative: Constitution, Cardiovascular, Respiratory and Gastrointestinal Exam Surgical H&P Exam: Normal: Heart, Normal: Lungs, Normal: Extremities and Normal: Abdomen Plan Diagnosis/Plan: Unchanged I have reviewed the history and physical and performed a pertinent physical examination on my patient. No changes have occurred unless specified.
--- NOTE | 2022-05-05 12:57 | P.BOP_ITS ---
Brief Operative Note Date of Service: 05/05/22 Pre-op diagnosis: cirrhosis screen for varices, follow-up of PUD Post-op diagnosis: other (Gastritis, mild portal gastropathy, diverticulum duodenal bulb) Procedure: FLEXIBLE TRANSORAL UPPER GASTROINTESTINAL ENDOSCOPY WITH BIOPSIES Consent: Indications for the procedure and potential complications of bleeding, perforation, reaction to medications and missed diagnosis were discussed with the patient and informed consent was obtained. Instrument: Olympus GIF H 190 mid size upper endoscope Monitoring: Vital signs and clinical assessment, continuous EKG monitoring, Pulse oximetry, Carbon Dioxide monitoring and blood pressure monitoring were done throughout the procedure. Procedure: The patient was placed in the left lateral decubitis position and pre-procedure medications were administered and a bite block was placed. The endoscope was inserted into the mouth and advanced under direct vision to the third part of duodenum. Endoscope was removed due to hypoxia. Pt was bagged by the anesthesiologist. Endoscope was reintroduced after patient was stabilized. A careful inspection was made as the upper endoscope was withdrawn including a retroflexed examination of the proximal stomach; Findings and interventions are described below. Findings: Larynx: Normal Esophagus: GE junction at 36 cms. No varices, esophagitis or Harrison's. Stomach: Mild portal gastropathy and antral erythema. Biopsies were obtained. No gastric varices and grade 2 flap valve on retroflexed examination of the cardia. Duodenum: A diverticulum seen in the medial wall of the bulb. Normal descending duodenum - biopsies were obtained to check for celiac sprue. Intervention: Biopsies as noted above Impression and Post Procedure Diagnosis: Endoscopy Findings: ESOPHAGUS: GE junction at 36 cms. No varices, esophagitis or Harrison's. STOMACH: Mild portal gastropathy and antral erythema. Biopsies were obtained. No gastric varices and grade 2 flap valve on retroflexed examination of the cardia. DUODENUM: A diverticulum seen in the medial wall of the bulb. Normal descending duodenum - biopsies were obtained to check for celiac sprue. Plan: Await pathology results Patient has an appointment on 07/27/22 in the GI Clinic with Ashlie Maldonado M.D.. Surgeon: Ashlie Maldonado MD Anesthesia: MAC Was an Motorcycle Technician used for this Procedure?: Yes Motorcycle Technician: Azar Egan Estimated blood loss (mL): 0 Pathology: other (A- SMALL BOWEL BXS R/O CELIAC B- GASTRIC ANTRUM BXS R/O H. PYLORI) Condition: stable Disposition: PACU
--- NOTE | 2022-05-05 12:58 | W.PM.OPN ---
Operative Note Operative Note Date of Service: 05/05/22 Narrative: Pre-op diagnosis: cirrhosis screen for varices, follow-up of PUD Post-op diagnosis:?other (Gastritis, mild portal gastropathy, diverticulum duodenal bulb) Procedure: FLEXIBLE TRANSORAL UPPER GASTROINTESTINAL ENDOSCOPY WITH BIOPSIES Consent:?Indications for the procedure and potential complications of bleeding, perforation, reaction to medications and missed diagnosis were discussed with the patient and informed consent was obtained. Instrument:?Olympus GIF H 190 mid size upper endoscope Monitoring: Vital signs and clinical assessment, continuous EKG monitoring, Pulse oximetry, Carbon Dioxide monitoring and blood pressure monitoring were done throughout the procedure. Procedure:?The patient was placed in the left lateral decubitis position and pre-procedure medications were administered and a bite block was placed. The endoscope was inserted into the mouth and advanced under direct vision to the third part of duodenum. Endoscope was removed due to hypoxia. Pt was bagged by the anesthesiologist.? Endoscope was reintroduced after patient was stabilized.? A careful inspection was made as the upper endoscope was withdrawn including a retroflexed examination of the proximal stomach; Findings and interventions are described below. Findings: Larynx:? Normal Esophagus: GE junction at 36 cms. No varices, esophagitis or Harrison's. Stomach: Mild portal gastropathy and antral erythema. Biopsies were obtained. No gastric varices and grade 2 flap valve on retroflexed examination of the cardia. Duodenum: A diverticulum seen in the medial wall of the bulb. Normal descending duodenum - biopsies were obtained to check for celiac sprue. Intervention: Biopsies as noted above Impression and Post Procedure Diagnosis: Endoscopy Findings: ESOPHAGUS: GE junction at 36 cms. No varices, esophagitis or Harrison's. STOMACH:? Mild portal gastropathy and antral erythema. Biopsies were obtained. No gastric varices and grade 2 flap valve on retroflexed examination of the cardia. DUODENUM: A diverticulum seen in the medial wall of the bulb. Normal descending duodenum - biopsies were obtained to check for celiac sprue. Plan: Await pathology results Patient has an appointment on 07/27/22 in the GI Clinic with? Ashlie Maldonado M.D. Surgeon: Ashlie Maldonado MD Anesthesia:?MAC Was an Accounting Methods Analyst used for this Procedure?:?Yes Accounting Methods Analyst:?Azar Egan Estimated blood loss (mL):?0 Pathology:?other (A- SMALL BOWEL BXS? R/O CELIAC? B- GASTRIC ANTRUM BXS? R/O H. PYLORI) Condition:?stable Disposition:?PACU
[2022-05-05 13:31] LABS: Glucose, Whole Blood 174 mg/dL (60-115)
[2022-05-05 13:45] VITALS: BP 124/74; PULSE 78; RESP 16; TEMP 36.2; O2SAT 94
[2022-05-05 13:53] LABS: Glucose, Whole Blood 153 mg/dL (60-115)
[2022-05-05 14:00] VITALS: BP 129/78; PULSE 82; RESP 18; TEMP 36.2; O2SAT 96
== END 2022-05-05 14:35 | disposition home or self-care (01) ==
PROVIDERS: Visit Provider Internal Medicine Gastroenterology
PROC: 0DJ08ZZ Inspection of Upper Intestinal Tract, Via Natural or Artificial Opening Endoscopic (ICD-10-PCS; CPT 43235; principal; 2022-05-05 12:50)
DX: K74.60 Unspecified cirrhosis of liver (principal); B18.2 Chronic viral hepatitis C; K27.9 Peptic ulcer, site unspecified, unspecified as acute or chronic, without hemorrhage or perforation; K29.50 Unspecified chronic gastritis without bleeding; K57.10 Diverticulosis of small intestine without perforation or abscess without bleeding; K21.9 Gastro-esophageal reflux disease without esophagitis; D35.2 Benign neoplasm of pituitary gland; F31.9 Bipolar disorder, unspecified; E11.9 Type 2 diabetes mellitus without complications; E78.5 Hyperlipidemia, unspecified; K59.00 Constipation, unspecified; Z79.4 Long term (current) use of insulin; Z90.49 Acquired absence of other specified parts of digestive tract; Z79.899 Other long term (current) drug therapy; Z79.82 Long term (current) use of aspirin; Z79.1 Long term (current) use of non-steroidal anti-inflammatories (NSAID)
CPT/HCPCS: 43239; 82947; 88305; 88342

== ENCOUNTER 2022-05-27 13:49 | Emergency (ER) | payer MEDICAID, SELFPAY ==
[2022-05-27 13:53] VITALS: BP 157/84; PULSE 88; RESP 18; TEMP 36.9; O2SAT 98; BMI 29.5
--- OUTSIDE RECORDS SUMMARY | 2022-05-27 14:37 | XMS_ITS | Continuity of Care Document ---
:1965 Author Organization [facility] Address [address] [place] [id number]- Care Team Providers Name Role Phone Alejo AYOUB, Jose Maria Vela Primary Care Physician Encounter [facility] Date(s): 09/26/19 - 11/25/[address] [address]- [facility] Attending Physician: Jitendra Mann MD Admitting Physician: Jitendra Mann MD Referring Physician: Jitendra Mann MD
--- OUTSIDE RECORDS SUMMARY | 2022-05-27 14:37 | XMS_ITS | Continuity of Care Document ---
:1965 Author Organization [facility] Address [address] [place] [id number]- Care Team Providers Name Role Phone Alejo AYOUB, Jose Maria Vela Primary Care Physician Encounter [facility] Date(s): 10/20/19 - 01/19/[address] [address]- [facility] Attending Physician: Not on Staff, Attending MD Admitting Physician: Not on Staff, Admitting MD Referring Physician: Not on Staff, Referring MD
--- NOTE | 2022-05-27 14:46 | ED_ITS ---
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 Patient states that over the last 3 days she has had right ear pain that is getting worse and her chronic back pain is bothering her. Patient states that her PCP started her on antibiotics 3 days ago but it does not seem to be helping. Patient denies any dizziness, lightheadedness, abdominal pain, nausea, vomiting, fever, chills, blurry vision, double vision, loss of vision, chest pain, difficulty breathing, shortness of breath, night sweats, pain with urination, increased urinary frequency, increased urinary urgency, blood in her urine or stool, syncope or a near syncopal episode, recent trauma or falls, bowel incontinence, bladder incontinence, bowel retention, bladder retention, or any other complaints at this time. Onset (ago): day(s) (3) Location: right (ear) Radiation: non-radiation Severity: mild Severity scale (1-10): 3 Quality: dull Pain Consistency: constant Relieving factors: none Exacerbating factors: none Associated symptoms: denies other symptoms Treatments prior to arrival: none Related Data Home Medications Medication Instructions Recorded Confirmed albuterol sulfate 90 mcg/actuation 2 puff inhalation Q6H PRN 07/28/20 03/02/22 aerosol inhaler (Ventolin HFA) Shortness Of Breath aspirin 81 mg tablet,delayed 81 mg PO DAILY 07/28/20 03/02/22 release (Adult Low Dose Aspirin) cyclobenzaprine 5 mg tablet 10 mg PO TID PRN Muscle Spasm 07/28/20 03/02/22 gabapentin 300 mg capsule 300 mg PO TID 07/28/20 03/02/22 lisinopril 40 mg tablet 40 mg PO DAILY 07/28/20 03/02/22 loperamide 2 mg tablet (Imodium 2 mg PO Q6H PRN Loose Stool 07/28/20 03/02/22 A-D) omeprazole 20 mg capsule,delayed 20 mg PO DAILY 12/30/20 08/04/22 release simvastatin 20 mg tablet 20 mg PO DAILY 07/28/20 03/02/22 trazodone 100 mg tablet 100 mg PO DAILY 07/28/20 03/02/22 amlodipine 5 mg tablet 1 tab PO QAM 10/19/20 03/02/22 fluticasone propionate 220 1 puff PO BID 10/19/20 03/02/22 mcg/actuation HFA aerosol inhaler (Flovent HFA) insulin glargine 100 unit/mL 60 unit subcut BEDTIME 10/19/20 03/02/22 subcutaneous solution (Lantus U-100 Insulin) insulin lispro 100 unit/mL 20 unit subcut TIDAC 10/19/20 03/02/22 subcutaneous solution (Humalog U-100 Insulin) metoprolol succinate 25 mg 0.5 tab PO QAM 10/25/20 03/02/22 tablet,extended release 24 hr Previous Rx's Medication Instructions Recorded ibuprofen 600 mg tablet 600 mg PO TID PRN pain #14 tabs 10/03/20 glecaprevir 100 mg-pibrentasvir 40 3 tab PO DAILY 8 weeks #168 tabs 10/26/20 mg tablet (Mavyret) inhalational spacing device #1 ea 11/23/20 ondansetron 4 mg disintegrating 4 mg PO Q6-8H PRN nausea and 01/02/21 tablet vomiting #14 tabs ketorolac 10 mg tablet 10 mg PO Q6H PRN pain 5 days #20 11/11/21 tabs sucralfate 1 gram tablet (Carafate) 1 g PO TID #90 tabs 01/12/22 amoxicillin 875 mg-potassium 1 tab PO BID 7 days #14 tabs 05/27/22 clavulanate 125 mg tablet naproxen 500 mg tablet 500 mg PO BID 7 days #14 tabs 05/27/22 Allergies Allergy/AdvReac Type Severity Reaction Status Date / Time No Known Allergies Allergy Mild NOT Verified 03/02/22 10:58 APPLICABLE Review of Systems Constitutional: Constitutional: Reports no additional constitutional complaints, Denies chills, Denies fever(s) and Denies night sweats Eyes: Eyes: Reports no additional eye complaints, Denies blurry vision, Denies change in vision, Denies diplopia, Denies eye discharge, Denies loss of vision and Denies eye pain ENT: Denies dizziness Comments: right ear pain Cardiovascular: Cardiovascular: Reports no additional cardiovascular complaints, Denies chest pain, Denies lightheadedness, Denies Loss of Consciousness and Denies dyspnea Respiratory: Respiratory: Reports no additional respiratory complaints and Denies dyspnea Gastrointestinal: Gastrointestinal: Reports no additional gastrointestinal complaints, Denies abdominal pain, Denies melena, Denies hematochezia, Denies change in bowel habits and Denies change in stool character Genitourinary: Genitourinary: Denies hematuria, Denies urinary frequency, Denies dysuria, Denies urinary incontinence, Denies urinary hesitancy and Denies urinary urgency Musculoskeletal: Musculoskeletal: Reports no additional musculoskeletal complaints, Reports back pain (chronic), Denies numbness and Denies tingling Neurologic: Denies dizziness, Denies loss of vision, Denies numbness and Denies tingling Psychiatric: Psychiatric: Reports no additional psychiatric complaints Endocrine: Endocrine: Reports no additional endocrine complaints Hematologic/Lymphatic: Hematologic/Lymphatic: Reports no additional hematologic/lymphatic complaints Allergic/Immunologic: Allergic/Immunologic: Reports no additional allergic/immunologic complaints [facility] Past Medical History Attestation statement: The following information was validated with the patient. Source: old records reviewed Medical History Abdominal distension (gaseous) Anxiety Asthma Benign neoplasm of pituitary gland and craniopharyngeal duct Bipolar disorder Chronic hepatitis C without hepatic coma Cirrhosis of liver without ascites Depression Diabetes mellitus, insulin dependent (IDDM), uncontrolled Flank pain GERD (gastroesophageal reflux disease) Hepatitis C HTN (hypertension) Hyperlipidemia Kidney stone Mononeuritis Obese Panic disorder Renal stones Rheumatoid arthritis Surgical History History of esophagogastroduodenoscopy (EGD) Hx of cholecystectomy Hx of lithotripsy Family History Family History Father No problems noted. Mother Diabetes mellitus Sister Diabetes mellitus Brother No problems noted. Paternal Uncle Colon cancer Social History Social History Household Members: None Housing: Apartment Alcohol intake: never Patient Tobacco Use Status: Current someday Tobacco user Tobacco use type: Cigarette Cigarettes Per Day: 2 Years Smoked: 15 Use of substances other than those prescribed or required for medical reasons: No Advance Directives: No Advance Directives Information Provided: Yes Physical Exam ED Vital Signs: Vital Signs - 24 hr 05/27/22 13:53 Temperature 98.5 F Pulse Rate 88 Respiratory Rate 18 Blood Pressure 157/84 H Pulse Oximetry 98 Oxygen Delivery Method Room Air BMI result Body Mass Index 29.5 Const General: cooperative, no acute distress, alert and awake Nutritional Appearance: well nourished Orientation/consciousness: patient oriented x3 Limitations: no limitations HENMT Head: Yes normal to inspection and Yes atraumatic Ears: hearing grossly normal bilaterally, external ears normal and TM abnormal erythematous on the right General nose exam: Normal external nose present, no nasal discharge noted and no epistaxis Face and sinus: Yes normal facial exam, No abrasion and No laceration Mouth: Normal oral and palatal mucosa present, no drooling and no muffled voice Eyes General: appearance normal, both eyes and all related structures Periorbital: periorbital findings normal Eyelids: Yes eyelids normal Conjunctivae: conjunctivae normal Pupils: Equal, round and reactive pupils present EOM: EOMs intact bilaterally Neck Neck: Yes normal visual inspection, Yes full ROM and Yes no lymphadenopathy Chest Chest palpation & inspection: normal inspection of the chest Resp Effort & Inspection: normal respiratory effort and able to speak in complete sentences Auscultation: clear to auscultation bilaterally Cardio Rate: regular rate Rhythm: regular rhythm GI Inspection: Yes normal to inspection General: Yes no CVA tenderness Back/Spine/Pelvis Back: no CVA tenderness Cervical Spine: normal cervical lordosis and cervical ROM normal Thoracic/Lumbar Spine: thoracic and lumbar spine normal to inspection and thoraco-lumbar ROM normal Pelvis: no pain with anterior-posterior compression Neuro General: patient oriented x3 and moves all extremities Cranial nerves: Yes Equal, round and reactive pupils present Cognition (Neuro): normal cognition Motor exam (neuro): 5/5 motor strength present throughout Sensory Exam: Normal double simultaneous stimulation for sensation Coordination: [id number] test normal Extrem General: Yes normal to inspection, Yes full ROM and Yes capillary refill normal Psych Appearance: grossly normal Mental Status: mental status grossly normal Affect: normal affect Attitude: cooperative Thought process: Normal thought process present Thought content: Normal thought content present Insight: Good insight present (Psych) Medical Decision Making MDM Narrative Medical decision making narrative: Patient is a 57 year old assigned female at with a history of chronic back pain presenting to the emergency department today with right ear pain and chronic back pain. Patient's physical exam showed an erythematous right TM but was otherwise unremarkable. Patient's clinical presentation is most consistent with an acute on chronic back pain episode and right otitis media. I explained my physical exam findings to the patient. I answered all questions asked by the patient. I stressed the importance of the patient taking her medication as prescribed. I stressed the importance of the patient following up with her primary care provider, ENT, and a intelligence specialist. I stressed the importance of the patient returning to the emergency department immediately if her symptoms were to worsen or if she were to develop any dizziness, shortness of breath, difficulty breathing, chest pain, blurry vision, loss of vision, nausea, vomiting, abdominal pain, fever, chills, back pain, or any other complaints. Patient verbalized agreement and understanding with this treatment plan and discharge. Medical Records Medical records reviewed: Yes I reviewed the patient's medical records. Discharge Plan Discharge Clinical Impression: Otitis media, Chronic back pain Patient Disposition: Home, Self-Care Instructions: Ear Infection (ED) Additional Instructions: Follow up with your primary care provider, an ENT, and a intelligence specialist. Return to the emergency department immediately if your symptoms worsen or if you develop any dizziness, shortness of breath, difficulty breathing, chest pain, blurry vision, loss of vision, nausea, vomiting, abdominal pain, fever, chills, back pain, or any other complaints. [place]uba un seguimiento con palmer proveedor de atenci?n primaria, un otorrinolaring?logo y un especialista en colum[place]. Regrese al departamento de emergencias de inmediato si katiuska s?ntomas empeoran o si presenta mareos, falta de aire, dificultad para respirar, dolor de pecho, visi?n borrosa, p?rdida de la visi?n, n?useas, v?mitos, dolor abdominal, fiebre, escalofr?os, dolor de espalda o cualquier otras quejas. Prescriptions: New naproxen 500 mg tablet 500 mg PO BID 7 Days Qty: 14 0RF amoxicillin-pot clavulanate 875-125 mg tablet 1 tab PO BID 7 Days Qty: 14 0RF No Action Mavyret 100-40 mg tablet 3 tab PO DAILY 56 Days Qty: 168 0RF Rx Instructions: must administer with a meal/food ibuprofen 600 mg tablet 600 mg PO TID PRN (Reason: pain) Qty: 14 0RF insulin glargine [Lantus U-100 Insulin] 100 unit/mL solution 60 unit subcut BEDTIME amlodipine 5 mg tablet 1 tab PO QAM fluticasone propionate [Flovent HFA] 220 mcg/actuation HFA aerosol inhaler 1 puff PO BID insulin lispro [Humalog U-100 Insulin] 100 unit/mL solution 20 unit subcut TIDAC metoprolol succinate 25 mg tablet extended release 24 hr 0.5 tab PO QAM ondansetron 4 mg tablet,disintegrating 4 mg PO Q6-8H PRN (Reason: nausea and vomiting) Qty: 14 0RF ketorolac 10 mg tablet 10 mg PO Q6H PRN (Reason: pain) 5 Days Qty: 20 0RF Rx Instructions: 1. Patient received Toradol in the emergency room. 2. Patient needs to stop all other NSAIDs: Ibuprofen, Motrin, Aleve, Naprosyn, Mobic sucralfate [Carafate] 1 gram tablet 1 g PO TID Qty: 90 0RF cyclobenzaprine 5 mg tablet 10 mg PO TID PRN (Reason: Muscle Spasm) albuterol sulfate [Ventolin HFA] 90 mcg/actuation HFA aerosol inhaler 2 puff inhalation Q6H PRN (Reason: Shortness Of Breath) loperamide [Imodium A-D] 2 mg tablet 2 mg PO Q6H PRN (Reason: Loose Stool) gabapentin 300 mg capsule 300 mg PO TID simvastatin 20 mg tablet 20 mg PO DAILY trazodone 100 mg tablet 100 mg PO DAILY omeprazole 20 mg capsule,delayed release(DR/EC) 20 mg PO DAILY lisinopril 40 mg tablet 40 mg PO DAILY aspirin [Adult Low Dose Aspirin] 81 mg tablet,delayed release (DR/EC) 81 mg PO DAILY (DME) inhalational spacing device Spacer See Rx Instructions .ROUTE .MEDSUPPLY Qty: 1 0RF Rx Instructions: As directed Referrals: [facility] [Provider Group] Kadeem Chairez [Physician] - Wanda Bonilla NP [Primary Care Provider] - Interventions: ED Discharge Assessment Last Done: 05/27/22 15:35 Discharge Date/Time: 05/27/22 15:35 Print Language: Indonesian
== END 2022-05-27 15:35 | disposition home or self-care (01) ==
PROVIDERS: Emergency Provider Emergency Medicine; PCP Nurse Practitioner Primary Care
DX: H66.93 Otitis media, unspecified, bilateral (principal); H92.01 Otalgia, right ear; M54.50 Low back pain, unspecified; R51.9 Headache, unspecified; Z79.899 Other long term (current) drug therapy; F17.210 Nicotine dependence, cigarettes, uncomplicated; Z71.6 Tobacco abuse counseling
CPT/HCPCS: 99283; 99284

== ENCOUNTER 2022-05-30 15:04 | Outpatient (RCR) | payer MEDICAID, SELFPAY | END 2022-06-19 16:01 | disposition home or self-care (01) | LOC: HO.PT 15:04 | PROVIDERS: PCP Nurse Practitioner Primary Care; Visit Provider Nurse Practitioner Primary Care | DX: M79.604 Pain in right leg (principal) | CPT/HCPCS: 97110; 97162 ==

== ENCOUNTER 2022-07-27 11:45 | Outpatient (REF) | payer MEDICAID, SELFPAY ==
[2022-07-27 13:24] LABS: MANUAL DIFF FLAG NO
[2022-07-27 13:42] LABS: Basophils Percent Auto 0.3 % (0-2); Eosinophils Absolute Auto 0.1 X10*3/uL (0.0-0.4); Eosinophils Percent Auto 1.9 % (0-4); Hematocrit 40.9 % (37.0-47.0); Hemoglobin 13.7 g/dl (12.0-16.0); Imm Gran Abs Auto 0.02 X10*3/uL (0.00-0.03); Imm Gran Pct Auto 0.3 % (0.0-0.4); Lymphocytes Absolute Auto 1.9 X10*3/uL (1.2-4.9); Lymphocytes Percent Auto 32.3 % (20-40); Mean Corpuscular HGB Conc 33.5 g/dl (31.0-35.0); Mean Corpuscular Volume 83.6 fL (80.0-98.0); Mean Platelet Volume 10.8 fL (9.4-12.3); Monocytes Absolute Auto 0.7 X10*3/uL (0.1-1.2); Neutrophils Absolute Auto 3.2 x10*3/uL (2.0-8.3); Neutrophils Percent Auto 54.2 % (45-73); Platelet Count 136 X10*3/uL (160-400); Red Blood Count 4.89 X10*6/uL (4.20-5.50); Red Cell Distribution Width 12.6 % (11.0-16.0); White Blood Count 5.9 X10*3/uL (4.8-10.8)
[2022-07-27 13:46] LABS: Prothrombin Time 11.2 SEC (10.0-13.1)
[2022-07-27 14:22] LABS: Alanine Aminotransferase 133 U/L (0-31); Albumin Level 4.3 g/dL (3.5-5.0); Alkaline Phosphatase 210 U/L (39-117); Anion Gap 11 (12-20); Aspartate Amino Transferase 105 U/L (5-31); Bilirubin Total 0.6 mg/dL (0.0-1.0); Blood Urea Nitrogen 14 mg/dL (9-16); Calcium 9.8 mg/dL (8.4-10.2); Carbon Dioxide 27 mmol/L (22-29); Chloride 106 mmol/L (96-108); Estimated Glomerular Filt Rate 50; Glucose Random 204 mg/dL (60-115); Lipase 29 U/L (8-78); Potassium 3.9 mmol/L (3.3-5.1); Sodium 140 mmol/L (135-145)
[2022-07-29 14:19] LABS: Immunoglobulin A 132 mg/dL (47-310)
[2022-08-01 11:49] LABS: Alpha Fetoprotein 8.2 ng/mL
[2022-08-02 09:19] LABS: Transglutaminase Ab IgG <1.0 U/mL; Transglutaminase IgA <1.0 U/mL
== END 2022-07-27 11:46 | disposition home or self-care (01) ==
LOC: HO.LAB 11:45
PROVIDERS: PCP Nurse Practitioner Primary Care; Referring Provider Nurse Practitioner Primary Care; Visit Provider Internal Medicine Gastroenterology
DX: R10.11 Right upper quadrant pain (principal); K74.60 Unspecified cirrhosis of liver; B19.20 Unspecified viral hepatitis C without hepatic coma; T50.B95A Adverse effect of other viral vaccines, initial encounter
CPT/HCPCS: 36415; 80053; 82105; 82784; 83690; 85025; 85610; 86364; 99212

== ENCOUNTER 2022-08-29 08:27 | Outpatient (REF) | payer MEDICAID, SELFPAY ==
--- NOTE | ~2022-08-29 | US_ITS ---
EXAMINATION: US ABDOMEN COMPLETE CLINICAL INFORMATION: Right upper quadrant pain. COMPARISON: CT abdomen/pelvis 01/12/2022. TECHNIQUE: Real-time imaging of the abdominal viscera. FINDINGS: PANCREAS: Normal. ABDOMINAL AORTA: The proximal, mid, and distal segments are normal in caliber. INFERIOR VENA CAVA: Visualized portions are normal. LIVER: Enlarged, nodular and heterogeneous liver most consistent with cirrhosis. No discrete focal liver lesion. No intrahepatic biliary ductal dilatation. GALLBLADDER: Cholecystectomy. COMMON BILE DUCT: Normal in caliber measuring 0.6 cm in diameter. RIGHT KIDNEY: Multiple tiny hyperechoic foci could represent nonobstructive calculi or vascular calcifications. No hydronephrosis The kidney measures 8.6 cm in maximum dimension. LEFT KIDNEY: Nonobstructive renal calculi largest measuring 0.3 cm. No hydronephrosis or focal parenchymal lesions. The kidney measures 9.6 cm in maximum dimension. SPLEEN: Borderline prostatomegaly. The spleen measures 13.7 cm in maximum dimension. FREE FLUID: None. US/US abdomen complete IMPRESSION: 1. Cirrhotic liver with borderline splenomegaly. 2. Nonobstructive left renal calculi. 3. Nonobstructive right renal calculi versus vascular calcifications. 4. Status post cholecystectomy.
== END 2022-08-29 08:28 | disposition home or self-care (01) ==
LOC: HO.US 08:27
PROVIDERS: PCP Nurse Practitioner Primary Care; Visit Provider Internal Medicine Gastroenterology
DX: R10.11 Right upper quadrant pain (principal)
CPT/HCPCS: 76700

== ENCOUNTER 2022-09-21 09:24 | Emergency (ER) | payer MEDICAID, SELFPAY ==
--- NOTE | ~2022-09-21 | US_ITS ---
EXAMINATION: US PELVIS TRANSVAGINAL CLINICAL INFORMATION: 10 days of severe pelvic pain COMPARISON: CT scan of January 12, 2022 and studies dating back to August 28, 2016 TECHNIQUE: Transcutaneous and transvaginal pelvic ultrasound. Transvaginal scanning was performed after voiding to better evaluate the endometrium and adnexa. FINDINGS: The uterus measures 7.5 x 2.4 x 4.5 cm. The uterus is anteverted. Nabothian cysts are present. No suspicious abnormalities region of the cervix. The uterine contour is smooth. The endometrium measures 0.3 cm. Multiple myometrial calcifications are present without identified circumscribed fibroids. The right ovary measures approximately 2.0 x 1.7 x 2.5 cm. The calculated right ovarian volume is approximately 4.4 mL. Within the right adnexa there is an isoechoic region containing small echogenic focus and shadowing. On prior CT scan of the adnexa. This appear to be possible fat containing structure involving the inferior aspect with the appearance of dermoid cyst without definite calcification within it. Less likely echogenic focus on the periphery may represent a papillary excrescence. No internal vascularity is seen associated with this structure. The left ovary measures 2.4 x 1.6 x 1.9 cm. The calculated left ovarian volume is approximately 3.8 mL. No suspicious left adnexal findings. There is trace fluid seen within the cul-de-sac. US/US pelvic and transvaginal IMPRESSION: Probable right adnexal dermoid tumor measuring 1.1 cm in largest dimension. This would not require follow-up. Myometrial calcifications. Small amount of free fluid within the cul-de-sac. No evidence of ovarian torsion.
[2022-09-21 09:46] VITALS: BP 168/84; PULSE 59; RESP 16; TEMP 36.1; O2SAT 97; BMI 29.9
[2022-09-21 10:03] LABS: MANUAL DIFF FLAG NO
[2022-09-21 10:06] LABS: Appearance Urine Cloudy; Color Urine Yellow; Glucose Urine UA 100 mg/dL (Negative); Leukocyte Esterase Urine Trace (Negative); Nitrite Urine Negative (Negative); PH 5.5 (5.0-9.0); Specific Gravity - Urine 1.025 (1.005-1.025); UMIC TRIGGER UACC YES; Urine Blood Negative (Negative); Urine Ketones Negative (Negative); Urine Protein 30 (1+) mg/dL (Neg-Trace)
[2022-09-21 10:07] LABS: Basophils Percent Auto 0.4 % (0-2); Eosinophils Percent Auto 3.1 % (0-4); Hematocrit 37.5 % (37.0-47.0); Hemoglobin 12.6 g/dl (12.0-16.0); Imm Gran Pct Auto 0.4 % (0.0-0.4); Lymphocytes Percent Auto 31.8 % (20-40); Mean Corpuscular HGB Conc 33.6 g/dl (31.0-35.0); Mean Corpuscular Hemoglobin 28.4 pg (27.0-33.0); Mean Corpuscular Volume 84.7 fL (80.0-98.0); Mean Platelet Volume 10.5 fL (9.4-12.3); Monocytes Percent Auto 10.5 % (2-11); Neutrophils Percent Auto 53.8 % (45-73); Platelet Count 119 X10*3/uL (160-400); Red Blood Count 4.43 X10*6/uL (4.20-5.50); Red Cell Distribution Width 12.4 % (11.0-16.0); White Blood Count 4.9 X10*3/uL (4.8-10.8)
[2022-09-21 10:08] LABS: Eosinophils Absolute Auto 0.2 X10*3/uL (0.0-0.4); Imm Gran Abs Auto 0.02 X10*3/uL (0.00-0.03); Lymphocytes Absolute Auto 1.6 X10*3/uL (1.2-4.9); Monocytes Absolute Auto 0.5 X10*3/uL (0.1-1.2); Neutrophils Absolute Auto 2.6 x10*3/uL (2.0-8.3)
[2022-09-21 10:11] LABS: Bacteria Urine 3+ (None Seen); Hyaline Casts Urine 0-2 /LPF (0-2); RBC Urine 0-2 /HPF (0-2); Squamous Epithelial Cell Urine >20 /HPF (0-2); WBC Urine 0-5 /HPF (0-5)
[2022-09-21 10:53] LABS: Anion Gap 12 (12-20); Blood Urea Nitrogen 12 mg/dL (9-16); Calcium 9.2 mg/dL (8.4-10.2); Carbon Dioxide 26 mmol/L (22-29); Chloride 108 mmol/L (96-108); Creatinine Clr Calc Pharmacy 58.7; Estimated Glomerular Filt Rate 56; Glucose Random 181 mg/dL (60-115); Potassium 4.2 mmol/L (3.3-5.1); Sodium 142 mmol/L (135-145)
[2022-09-21] MEDS: Acetaminophen 325 MG TABLET 975 MG PO (12:22)
[2022-09-21 12:23] VITALS: BP 159/79; PULSE 53; RESP 16; TEMP 36.8; O2SAT 97
--- NOTE | 2022-09-21 14:50 | ED.FEMALEGU ---
HPI - Female Genitourinary General Chief complaint: Urogenital-Female Stated complaint: lower abd groin vaginal pain Time Seen by Provider: 09/21/22 11:44 Source: patient Mode of arrival: ambulatory Limitations: no limitations History of Present Illness HPI Narrative: 57-year-old female presents with lower abdominal pain. The symptoms started approximately 10 days ago associated with urinary frequency and hesitancy. Patient describes the pain as severe in nature. The pain does not radiate. However, patient does have some chronic low back pain worse on the right than left. She reports a history kidney stones which were seen on ultrasound not too long ago. Oral antibiotics by her primary care provider but continued to have persistent and unchanged symptoms. At this time, there is no clear relieving or exacerbating features. There is no vaginal bleeding or discharge. She has no hematuria or burning with urination but does have frequency and hesitancy. She denies any diarrhea or constipation. She denies any blood in her urine. Patient describes the pain as severe and sharp with pressure sensations. Symptoms come and go as well. Related Data Home Medications Medication Instructions Recorded Confirmed albuterol sulfate 90 mcg/actuation 2 puff inhalation Q6H PRN 07/28/20 07/27/22 aerosol inhaler (Ventolin HFA) Shortness Of Breath aspirin 81 mg tablet,delayed 81 mg PO DAILY 07/28/20 07/27/22 release (Adult Low Dose Aspirin) cyclobenzaprine 5 mg tablet 10 mg PO TID PRN Muscle Spasm 07/28/20 07/27/22 gabapentin 300 mg capsule 300 mg PO TID 07/28/20 07/27/22 lisinopril 40 mg tablet 40 mg PO DAILY 07/28/20 07/27/22 loperamide 2 mg tablet (Imodium 2 mg PO Q6H PRN Loose Stool 07/28/20 07/27/22 A-D) omeprazole 20 mg capsule,delayed 20 mg PO DAILY 07/28/20 07/27/22 release simvastatin 20 mg tablet 20 mg PO DAILY 07/28/20 07/27/22 trazodone 100 mg tablet 100 mg PO DAILY 07/28/20 07/27/22 amlodipine 5 mg tablet 1 tab PO QAM 10/19/20 07/27/22 fluticasone propionate 220 1 puff PO BID 10/19/20 07/27/22 mcg/actuation HFA aerosol inhaler (Flovent HFA) insulin glargine 100 unit/mL 60 unit subcut BEDTIME 10/19/20 07/27/22 subcutaneous solution (Lantus U-100 Insulin) insulin lispro 100 unit/mL 20 unit subcut TIDAC 10/19/20 07/27/22 subcutaneous solution (Humalog U-100 Insulin) metoprolol succinate 25 mg 0.5 tab PO QAM 10/25/20 07/27/22 tablet,extended release 24 hr quetiapine 50 mg tablet (Seroquel) 50 mg PO BID PRN 05/29/22 07/27/22 Previous Rx's Medication Instructions Recorded ibuprofen 600 mg tablet 600 mg PO TID PRN pain #14 tabs 10/03/20 glecaprevir 100 mg-pibrentasvir 40 3 tab PO DAILY 8 weeks #168 tabs 10/26/20 mg tablet (Mavyret) inhalational spacing device #1 ea 11/23/20 ondansetron 4 mg disintegrating 4 mg PO Q6-8H PRN nausea and 01/02/21 tablet vomiting #14 tabs ketorolac 10 mg tablet 10 mg PO Q6H PRN pain 5 days #20 11/11/21 tabs sucralfate 1 gram tablet (Carafate) 1 g PO TID #90 tabs 01/12/22 amoxicillin 875 mg-potassium 1 tab PO BID 7 days #14 tabs 05/27/22 clavulanate 125 mg tablet naproxen 500 mg tablet 500 mg PO BID 7 days #14 tabs 05/27/22 tolterodine 2 mg capsule,extended 2 mg PO DAILY #10 caps 09/21/22 release 24 hr (Detrol LA) Allergies Allergy/AdvReac Type Severity Reaction Status Date / Time No Known Allergies Allergy Mild NOT Verified 07/27/22 11:54 APPLICABLE Review of Systems Review of Systems: CONSTITUTIONAL: Denies weight loss, fever and chills. HEENT: Denies changes in vision and hearing. RESPIRATORY: Denies SOB and cough. CV: Denies palpitations no CP. GI: Positive abdominal pain, negative for nausea, vomiting and diarrhea. : See HPI. MSK: Denies myalgia and joint pain. SKIN: Denies rash and pruritus. NEUROLOGICAL: Denies headache and syncope. PSYCHIATRIC: Denies recent changes in mood. Denies anxiety and depression. All other ROS are negative unless in HPI [facility] Past Medical History Medical History Abdominal distension (gaseous) Anxiety Asthma Benign neoplasm of pituitary gland and craniopharyngeal duct Bipolar disorder Chronic hepatitis C without hepatic coma Cirrhosis of liver without ascites Depression Diabetes mellitus, insulin dependent (IDDM), uncontrolled Flank pain GERD (gastroesophageal reflux disease) Hepatitis C HTN (hypertension) Hyperlipidemia Kidney stone Mononeuritis Obese Panic disorder Renal stones Rheumatoid arthritis Surgical History History of esophagogastroduodenoscopy (EGD) Hx of cholecystectomy Hx of lithotripsy Family History Family History Father No problems noted. Mother Diabetes mellitus Sister Diabetes mellitus Brother No problems noted. Paternal Uncle Colon cancer Social History Social History Household Members: None Housing: Apartment Alcohol intake: never Patient Tobacco Use Status: Current someday Tobacco user Tobacco use type: Cigarette Cigarettes Per Day: 2 Years Smoked: 15 Advance Directives: No Physical Exam Vital Signs: Vital Signs: Last Vital Signs Temp 98.2 F 09/21/22 12:23 Pulse 49 L 09/21/22 15:10 Resp 14 09/21/22 15:10 BP 157/77 H 09/21/22 15:10 Pulse Ox 94 09/21/22 15:10 O2 Del Method 09/21/22 15:10 BMI result Body Mass Index 29.9 GEN: Well developed, no acute distress, alert, oriented HEENT: Normocephalic, atraumatic, normal external ears, nose appears normal, no oropharyngeal edema or exudates Eyes: Normal to appearance Neck: Supple, no lymphadenopathy Respiratory: Talks in complete sentences, no respiratory distress, clear to auscultation bilaterally Cardiovascular: Regular rate and rhythm, no murmurs rubs or gallops Abdomen: Soft, nontender, nondistended, no guarding, no rebound Back: No CVA tenderness Extremities: No clubbing cyanosis or edema Neurologic: No focal neurologic deficits, cranial nerves 2-12 intact, strength is 5/5 bilaterally, gait normal Skin: No rash Course Course Course Narrative: 57-year-old female presents with pelvic pain based on location from history. Her exam was benign. There is no abdominal tenderness, rebound or guarding. There is negative Gonzalez sign negative McBurney's point tenderness. Patient did have an outpatient ultrasound recently approximately 2-3 weeks ago. Did identify bilateral nephrolithiasis, no hydronephrosis, evidence of liver cirrhosis, status post cholecystectomy. She has been on antibiotics for 10 days recently stopped for possible UTI. At this time, patient will have routine laboratory analysis, urinalysis, ultrasound pelvic drop pelvic pathology. I will give patient Tylenol as needed for pain. Reevaluation(s) Reevaluation #1: Pain is slightly improved. Discussed all results including the dermoid cyst noted on her ovary. At this point, the most likely diagnosis could be bladder spasms. I will try treating her with something similar to Detrol have her follow-up with a rehab director and primary care provider. Her abdomen remains non acute. Will discharge at this time. Time: 15:54 Medications Administered Discontinued Medications Generic Name Dose Route Start Last Admin Trade Name Freq PRN Reason Stop Dose Admin Acetaminophen 975 mg 09/21/22 12:11 09/21/22 12:22 Acetaminophen 325 Mg Tablet PO 09/21/22 12:12 975 mg ONCE ONE Administration Medical Decision Making Medical Decision Making [facility] Narrative: 57-year-old female presents with pelvic pain based on location from history. Her exam was benign. There is no abdominal tenderness, rebound or guarding. There is negative Gonzalez sign negative McBurney's point tenderness. Patient did have an outpatient ultrasound recently approximately 2-3 weeks ago. Did identify bilateral nephrolithiasis, no hydronephrosis, evidence of liver cirrhosis, status post cholecystectomy. She has been on antibiotics for 10 days recently stopped for possible UTI. At this time, patient will have routine laboratory analysis, urinalysis, ultrasound pelvic drop pelvic pathology. I will give patient Tylenol as needed for pain. Differential Diagnosis Differential Diagnoses: The differential diagnosis associated with the presentation includes (Pelvic pain, UTI, pyelonephritis, uterine pain, ovarian cyst, ovarian cyst rupture) Admission/Observation Consideration of admission/observation: Escalation of care including admission/observation considered Lab Data [facility] Lab Attestation statement: I reviewed the patient's lab results. 09/21/22 09:56 09/21/22 09:56 Labs: Lab Results 09/21/22 09/21/22 09/21/22 Range/Units 09:54 09:56 09:56 WBC 4.9 (4.8-10.8) X10*3/uL RBC 4.43 (4.20-5.50) X10*6/uL Hgb 12.6 (12.0-16.0) g/dl Hct 37.5 (37.0-47.0) % MCV 84.7 (80.0-98.0) fL MCH 28.4 (27.0-33.0) pg MCHC 33.6 (31.0-35.0) g/dl RDW 12.4 (11.0-16.0) % Plt Count 119 L (160-400) X10*3/uL MPV 10.5 (9.4-12.3) fL Immature Gran % (Auto) 0.4 (0.0-0.4) % Neut % (Auto) 53.8 (45-73) % Lymph % (Auto) 31.8 (20-40) % [place] % (Auto) 10.5 (2-11) % Eos % (Auto) 3.1 (0-4) % Baso % (Auto) 0.4 (0-2) % Lymph # (Auto) 1.6 (1.2-4.9) X10*3/uL [place] # (Auto) 0.5 (0.1-1.2) X10*3/uL Eos # (Auto) 0.2 (0.0-0.4) X10*3/uL Baso # (Auto) 0.0 (0.0-0.2) X10*3/uL Abs Immat Gran (auto) 0.02 (0.00-0.03) X10*3/uL Absolute Neuts (auto) 2.6 (2.0-8.3) x10*3/uL Absolute Nucleated RBC 0.000 (0.0-0.012) X10*3/uL Nucleated RBC % (auto) 0.0 (0.0-0.2) /100WBC Sodium 142 (135-145) mmol/L Potassium 4.2 (3.3-5.1) mmol/L Chloride 108 (96-108) mmol/L Carbon Dioxide 26 (22-29) mmol/L Anion Gap 12 (12-20) BUN 12 (9-16) mg/dL Creatinine 1.01 (0.5-1.4) mg/dL Estim Creat Clear Calc 58.7 Estimated GFR 56 Random Glucose 181 H (60-115) mg/dL Calcium 9.2 D (8.4-10.2) mg/dL Urine Color Yellow Urine Appearance Cloudy Urine pH 5.5 (5.0-9.0) Ur Specific [place] 1.025 (1.005-1.025) Urine Protein 30 (1+) H (Neg-Trace) mg/dL Urine Glucose (UA) 100 H (Negative) mg/dL Urine Ketones Negative (Negative) mg/dL Urine Blood Negative (Negative) Urine Nitrite Negative (Negative) Ur Leukocyte Esterase Trace H (Negative) Urine RBC 0-2 (0-2) /HPF Urine WBC 0-5 (0-5) /HPF Ur Squamous Epith Cells >20 (0-2) /HPF Urine Bacteria 3+ (None Seen) Hyaline Casts 0-2 (0-2) /LPF Independent Interpretation I performed an independent interpretation of an: Ultrasound (No obvious acute pelvic pathology) Radiology Impression Discussion of test interpretation with radiology: I have reviewed the radiologist's reading. (IMPRESSION: Probable right adnexal dermoid tumor measuring 1.1 cm in largest dimension. This would not require follow-up. Myometrial calcifications. Small amount of free fluid within the cul-de-sac. No evidence of ovarian torsion. Dictated By:Christopher Alexanderigned By:<Electronically) External Record Review External record reviewed: Prior outpatient radiology (July ultrasound of the abdomen) Tests considered The following testing was considered but not selected: CT abd Prescription Management I considered prescription management with: Pain Medication Chronic Conditions Patient?s care impacted by: Diabetes Discharge Plan Discharge Clinical Impression: Pelvic pain, Dermoid cyst Patient Disposition: Home, Self-Care Instructions: Overactive Bladder (DC), Pelvic Pain (ED), Urinary Urgency and Frequency (DC) Prescriptions: New tolterodine [Detrol LA] 2 mg capsule,extended release 24hr 2 mg PO DAILY Qty: 10 0RF No Action Mavyret 100-40 mg tablet 3 tab PO DAILY 56 Days Qty: 168 0RF Rx Instructions: must administer with a meal/food ibuprofen 600 mg tablet 600 mg PO TID PRN (Reason: pain) Qty: 14 0RF insulin glargine [Lantus U-100 Insulin] 100 unit/mL solution 60 unit subcut BEDTIME amlodipine 5 mg tablet 1 tab PO QAM fluticasone propionate [Flovent HFA] 220 mcg/actuation HFA aerosol inhaler 1 puff PO BID insulin lispro [Humalog U-100 Insulin] 100 unit/mL solution 20 unit subcut TIDAC metoprolol succinate 25 mg tablet extended release 24 hr 0.5 tab PO QAM ondansetron 4 mg tablet,disintegrating 4 mg PO Q6-8H PRN (Reason: nausea and vomiting) Qty: 14 0RF ketorolac 10 mg tablet 10 mg PO Q6H PRN (Reason: pain) 5 Days Qty: 20 0RF Rx Instructions: 1. Patient received Toradol in the emergency room. 2. Patient needs to stop all other NSAIDs: Ibuprofen, Motrin, Aleve, Naprosyn, Mobic sucralfate [Carafate] 1 gram tablet 1 g PO TID Qty: 90 0RF naproxen 500 mg tablet 500 mg PO BID 7 Days Qty: 14 0RF amoxicillin-pot clavulanate 875-125 mg tablet 1 tab PO BID 7 Days Qty: 14 0RF cyclobenzaprine 5 mg tablet 10 mg PO TID PRN (Reason: Muscle Spasm) albuterol sulfate [Ventolin HFA] 90 mcg/actuation HFA aerosol inhaler 2 puff inhalation Q6H PRN (Reason: Shortness Of Breath) loperamide [Imodium A-D] 2 mg tablet 2 mg PO Q6H PRN (Reason: Loose Stool) gabapentin 300 mg capsule 300 mg PO TID simvastatin 20 mg tablet 20 mg PO DAILY trazodone 100 mg tablet 100 mg PO DAILY omeprazole 20 mg capsule,delayed release(DR/EC) 20 mg PO DAILY lisinopril 40 mg tablet 40 mg PO DAILY aspirin [Adult Low Dose Aspirin] 81 mg tablet,delayed release (DR/EC) 81 mg PO DAILY (DME) inhalational spacing device Spacer See Rx Instructions .ROUTE .MEDSUPPLY Qty: 1 0RF Rx Instructions: As directed quetiapine [Seroquel] 50 mg tablet 50 mg PO BID PRN Referrals: Wanda Bonilla NP [Primary Care Provider] - 3 days Herminio Britton MD [Physician] - 1 week Print Language: Armenian
[2022-09-21 15:10] VITALS: BP 157/77; PULSE 49; RESP 14; O2SAT 94
== END 2022-09-21 16:16 | disposition home or self-care (01) ==
PROVIDERS: Emergency Provider Emergency Medicine; PCP Nurse Practitioner Primary Care
DX: R10.2 Pelvic and perineal pain (principal); D27.0 Benign neoplasm of right ovary; E11.9 Type 2 diabetes mellitus without complications; I10 Essential (primary) hypertension; E78.5 Hyperlipidemia, unspecified; Z87.442 Personal history of urinary calculi; Z79.82 Long term (current) use of aspirin; Z79.899 Other long term (current) drug therapy; Z79.02 Long term (current) use of antithrombotics/antiplatelets; Z79.4 Long term (current) use of insulin
CPT/HCPCS: 36415; 76830; 76856; 80048; 81001; 85025; 99284

== ENCOUNTER → 2022-10-12 14:51 | Outpatient (BNVA) | payer MEDICAID, SELFPAY | PROVIDERS: PCP Nurse Practitioner Primary Care; Visit Provider Urology | DX: N20.0 Calculus of kidney (principal); R10.9 Unspecified abdominal pain | CPT/HCPCS: 99212 ==

== ENCOUNTER → 2022-10-26 11:18 | Outpatient (BNVA) | payer MEDICAID, SELFPAY | PROVIDERS: Visit Provider Surgery Vascular Surgery | DX: I73.9 Peripheral vascular disease, unspecified (principal); R10.11 Right upper quadrant pain; R14.0 Abdominal distension (gaseous); K74.60 Unspecified cirrhosis of liver; B19.20 Unspecified viral hepatitis C without hepatic coma; F17.210 Nicotine dependence, cigarettes, uncomplicated; Z79.4 Long term (current) use of insulin | CPT/HCPCS: 99202; 99212 ==

== ENCOUNTER 2022-11-15 12:38 | Outpatient (REF) | payer MEDICAID, SELFPAY ==
--- NOTE | ~2022-11-15 | US_ITS ---
EXAMINATION: Noninvasive assessment of the bilateral lower extremities with ARTERIAL DUPLEX and ANKLE BRACHIAL INDICES (ABIs). CLINICAL INFORMATION: Peripheral vascular disease TECHNIQUE: Duplex Doppler techniques with waveform analysis and measurement of velocities in the bilateral common femoral, profunda femoris, superficial femoral, popliteal and tibial arteries were performed. Additionally, ankle pulse volume recordings, ankle pressure measurements and ankle brachial indices were obtained of the lower extremity arterial system bilaterally. The study was performed only at rest. COMPARISON: None FINDINGS: DIRECT DUPLEX DOPPLER FINDINGS: RIGHT LEG: Common femoral artery: 92.0 cm/s, phasicity: Triphasic Profunda femoris artery: 61.7 cm/s, phasicity: Triphasic Superficial femoral artery (proximal): 98.5 cm/s, phasicity: Triphasic Superficial femoral artery (mid): 92.6 cm/s, phasicity: Triphasic Superficial femoral artery (distal): 69.8 cm/s, phasicity: Triphasic Popliteal artery: 61.6 cm/s, phasicity: Triphasic Posterior tibial artery: 136 cm/s, phasicity: Triphasic Peroneal artery: 50.2 cm/s, phasicity: Triphasic LEFT LEG: Common femoral artery: 111 cm/s, phasicity: Triphasic Profunda femoris artery: 57.8 cm/s, phasicity: Biphasic Superficial femoral artery (proximal): 97.3 cm/s, phasicity: Triphasic Superficial femoral artery (mid): 97.3 cm/s, phasicity: Triphasic Superficial femoral artery (distal): 57.0 cm/s, phasicity: Biphasic Popliteal artery: 60.9 cm/s, phasicity: Triphasic Posterior tibial artery: 324 cm/s cm/s, phasicity: Triphasic. Within the mid segment. The distal segment demonstrates normal velocities and triphasic waveform Peroneal artery: 82.1 cm/s, phasicity: Triphasic ANKLE-BRACHIAL INDEX: Right: 1.12? Left: 1.11 ANKLE PRESSURES: Right: PT 180, DP 173 Left: PT?178, DP?176 ANKLE PVR WAVEFORMS: Right: Normal Left: Normal US/US arterial duplex LE BI IMPRESSION: Right leg: Normal ankle brachial index. Widely patent arterial flow without significant arterial stenosis or occlusion Left leg: Normal ankle brachial index. Widely patent arterial flow. There is focal elevated velocity in the posterior tibial artery consistent with stenosis with normal flow and waveforms distally CLAUDIO Reference: - >1.4 = calcified vessels - 0.9 - 1.4 = normal - no significant arterial disease - 0.7 - 0.89 = mild peripheral arterial disease - 0.51 - 0.69 = moderate peripheral arterial disease - ? 0.50 = severe peripheral arterial disease - < .30 = critical arterial disease
== END 2022-11-15 12:39 | disposition home or self-care (01) ==
LOC: HO.US 12:38
PROVIDERS: Visit Provider Surgery Vascular Surgery
DX: I70.213 Atherosclerosis of native arteries of extremities with intermittent claudication, bilateral legs (principal)
CPT/HCPCS: 93923; 93925

== ENCOUNTER 2022-11-23 08:25 | Outpatient (REF) | payer MEDICAID, SELFPAY ==
--- NOTE | ~2022-11-23 | CT_ITS ---
EXAMINATION: CT ABDOMEN AND PELVIS WITHOUT CONTRAST CLINICAL INFORMATION: [place] of kidney. COMPARISON: CT abdomen and pelvis 01/12/2022. TECHNIQUE: Multidetector volumetric imaging was performed from the superior aspect of the liver through the pubic symphysis. Sagittal and coronal reformatted images were obtained on the technologist's workstation. This CT examination was performed using dose optimization techniques as appropriate, variously including the following: *Automated exposure control *Adjustment of mA and/or kV according to patient size (this includes techniques or standardized protocols for targeted exams where dose is matched to indication/reason for exam; i.e. extremities or head) *Use of iterative reconstruction technique DLP: 367 mGy-cm FINDINGS: LUNG BASES: The visualized lung bases are unremarkable. LIVER, GALLBLADDER, AND BILIARY TREE: Cirrhotic liver. No biliary ductal dilatation. Cholecystectomy. PANCREAS: No pancreatic mass. No ductal dilatation SPLEEN: Spleen is not enlarged. ADRENAL GLANDS: No adrenal mass. KIDNEYS AND URETERS: 7 x 6 mm 1000 Hounsfield unit calculus in the lower pole left kidney 7.8 cm from the posterior skin. No right renal calculi. Bilateral vascular calcifications. No hydroureteronephrosis. No suspicious renal mass. BLADDER: Decompressed GASTROINTESTINAL TRACT: Small bowel is normal in caliber. No mesenteric mass or fluid. The appendix is normal. The large bowel is normal in caliber. No significant diverticular disease. No inflammatory changes. ABDOMINAL WALL: No significant hernia is appreciated. LYMPH NODES: No lymphadenopathy. VASCULAR: No aortic aneurysm. Mild aortoiliac atherosclerosis. PELVIC VISCERA: The uterus and adnexa are unremarkable. OSSEOUS STRUCTURES: No suspicious osseous lesions. CT/CT abdomen pelvis wo IV con IMPRESSION: 7 x 6 mm nonobstructing calculus in the lower left kidney. Cirrhosis. Fleischner guidelines were followed.
== END 2022-11-23 08:26 | disposition home or self-care (01) ==
LOC: HO.CT 08:25
PROVIDERS: Visit Provider Urology
DX: N20.0 Calculus of kidney (principal); R10.9 Unspecified abdominal pain
CPT/HCPCS: 74176

== ENCOUNTER → 2022-11-30 10:36 | Outpatient (BNVA) | payer MEDICAID, SELFPAY | PROVIDERS: Visit Provider Surgery Vascular Surgery | DX: I73.9 Peripheral vascular disease, unspecified (principal) | CPT/HCPCS: 99212 ==

== ENCOUNTER 2022-12-02 08:11 | Outpatient (REF) | payer MEDICAID, SELFPAY ==
--- NOTE | ~2022-12-02 | MM_ITS ---
EXAMINATION: MM SCREENING DIGITAL BREAST TOMOSYNTHESIS, BILATERAL CLINICAL INFORMATION: Screening exam. Technologist notes bloody discharge right nipple during imaging. Patient confirms similar symptoms in past. TC score 6%. COMPARISON: Mammography: 07/22/2020, 07/10/2019, 06/02/2016 TECHNIQUE: Digital breast tomosynthesis is performed in both the craniocaudal and mediolateral oblique views along with computer-aided detection (CAD). Synthesized 2D images are generated from the tomosynthesis. Additional right CC view is provided. Case discussed with registered radiologic technologist. FINDINGS: There are scattered areas of fibroglandular density (ACR BI-RADS breast composition Category b). Parenchymal pattern is similar to prior studies. There is chronic bilateral nipple retraction. There is no interval developing density or significant mass or architectural abnormality. No abnormal calcifications. The axilla are unremarkable. MM/MM tomosynthesis screening BI IMPRESSION: -No significant changes from prior studies. -Bloody nipple discharge on right noted during imaging. ASSESSMENT: BI-RADS 0: Incomplete - Need Additional Imaging Evaluation RECOMMENDATION: 1. Additional views right breast (spot CC nipple in profile; spot ML nipple in profile). 2. Targeted ultrasound right breast. 3. Radiology department staff will contact the patient for additional imaging. This patient's information was entered into a reminder system with a target due date for their next mammogram.
== END 2022-12-02 08:12 | disposition home or self-care (01) ==
LOC: HO.MAMMO 08:11
PROVIDERS: PCP Nurse Practitioner Primary Care; Visit Provider Nurse Practitioner Primary Care
DX: Z12.31 Encounter for screening mammogram for malignant neoplasm of breast (principal)
CPT/HCPCS: 77063; 77067

== ENCOUNTER 2022-12-22 09:39 | Outpatient (REF) | payer MEDICAID, SELFPAY ==
--- NOTE | ~2022-12-22 | MM_ITS ---
EXAMINATION: MM DIAGNOSTIC DIGITAL BREAST TOMOSYNTHESIS, RIGHT US BREAST TARGETED, RIGHT CLINICAL INFORMATION: Right breast discharge which is milky and red. Patient states that it has been there for many years and has been mentioned in previous mammography reports. COMPARISON: Mammography: 10/02/2022 and studies dating back to 06/02/2016 TECHNIQUE: Digital breast tomosynthesis is performed. 2D images are generated from the tomosynthesis. The following views are obtained: Full-field 90 degree right mediolateral view and right spot compression craniocaudal view. Targeted right breast ultrasound. FINDINGS: The breasts are heterogeneously dense, which may obscure small masses (ACR BI-RADS breast composition Category c). There is question of abnormal density about the lateral aspect of the right breast for which spot compression view demonstrated to represent superimposition of fibroglandular tissue. No retroareolar abnormality was appreciated. Targeted right breast ultrasound did not demonstrate any abnormal ducts. No abnormal filling defect within the duct is appreciated. No abnormal cystic or solid mass identified. No edematous change within the parenchyma noted. Results are discussed with the patient at time of visit. MM/MM tomosynthesis added views R IMPRESSION: No significant changes from prior imaging. ASSESSMENT: BI-RADS 1: Negative RECOMMENDATION: 1. Patient should be managed based on the clinical impression. Decision to proceed with biopsy should be based on clinical grounds and degree of clinical concern. The nipple discharge has been chronic. 2. Otherwise, routine annual screening mammography. This patient's information was entered into a reminder system with a target due date for their next mammogram.
== END 2022-12-22 09:40 | disposition home or self-care (01) ==
LOC: HO.MAMMO 09:39
PROVIDERS: PCP Nurse Practitioner Primary Care; Visit Provider Nurse Practitioner Primary Care
DX: N64.52 Nipple discharge (principal)
CPT/HCPCS: 76642; 77061; 77065

== ENCOUNTER → 2023-01-10 13:30 | Outpatient (BNVA) | payer MEDICAID, SELFPAY | PROVIDERS: PCP Nurse Practitioner Primary Care; Visit Provider Internal Medicine | DX: J45.909 Unspecified asthma, uncomplicated (principal); G47.9 Sleep disorder, unspecified; R40.0 Somnolence | CPT/HCPCS: 99212 ==

== ENCOUNTER 2023-01-18 09:28 | Outpatient (AMB) | payer MEDICAID, SELFPAY ==
--- NOTE | 2023-01-18 09:45 | A.OFFVIS_ITS ---
Intake Vital Signs 01/18/23 09:59 Height 5 ft 3 in Weight 170 lb BMI 30.1 BP 144/85 H Blood Pressure Location Lt brachial Position Sitting Pulse 50 Intake Visit Reasons: 6wk f/u hep c treatment Intake Note: Patient follow up for HCV treatment. Patient cc: abdominal pain/bloating, GERD with burning sensation and diarrhea on and off. 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 12/01/22 patient reports she started takin g the Mavyret on November 06 and d/c'd it on November 13 due to throbbing headaches she was constantly getting. patient reports that she was advised to continue taking medication and that headache would subside. patient reports that this was not the case. patient reports that she was taking Tylenol 650mg and there was no improvement. she states that she cannot take too much Tylenol due to her Cirrhosis. patient states she was awaiting appointment to further discuss and receive your recommendation/suggestions. patient also reported fatigue, and trouble sleeping. IMAGING STUDIES:? 07/2022 ABD US SHOWED: 1.? Cirrhotic liver with borderline sple nomegaly. 2.? Nonobstructive left renal calculi. 3.? Nonobstructive right renal calculi v ersus vascular calcifications. 4.? Status post cholecystectomy. 10/27/20 ABD US SHOWED: Three echogenic nonobstructive stones left kidney. Hepatic steatosis with nodular appearance and mild hepatomegaly most suggestive of cirrhosis. Similar findings were seen on the previous ultrasound exam 12/10/2013. ENDOSCOPIC STUDIES:?05/05/22 EGD SHOWED: ESOPHAGUS: GE junction at 36 cms. No varices, esophagitis or Harrison's. STOMACH:? Mild portal gastropathy and antral erythema. Biopsies were obtained. No gastric varices and grade 2 flap valve on retroflexed examination of the ca rdia. DUODENUM: A diverticulum seen in the medial wall of the bulb. Normal descending duodenum - biopsies were obtained to check for celiac sprue. Plan:? Patient has an appointment on 07/27/22 in the GI Clinic with? Ashlie Maldonado M.D. BIOPSES SHOWED: A.? Small bowel, biopsy:? Small intestinal mucosa with focal mildly increased intraepithelial lymphocytes and preserved villous architecture.? See comment. B.? Stomach, antrum, biopsy:? Antral-type and oxyntic mucosa with moderate chronic, focally active, inflammation and focal intestinal metaplasia; no dysplasia identified; no Helicobacter organisms seen. COMMENT: The findings in the duodenum are non-specific.? The differential diagnosis is broad and includes infection (e.g. viral or H. pylori), medication/drugs (e.g. NSAIDs), gluten sensitivity/celiac disease, bacterial overgrowth, tropical sprue, immunodeficiency syndromes (e.g. IgA deficiency, CVID), autoimmune enteropathy, Crohns and collagen vascular disease, among others.? Please correlate with clinical and other laboratory findings. 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 GOMEZ got worse after she started the Mavyret. Usually has HAs at night when she is trying to go to sleep. Takes Tyelenol with partial improvement. Wakes up with GOMEZ the following day. Takes a shower and the GMOEZ goes away. Denies dysphagia to food Takes Esomeprazole twice daily. Pt is being scheduled in [place] for a breast bx due to bleeding from the rt nipple. PAST VISITS: Denies any change in GI symptoms Continues to have burning, bloating, constipation and diarrhea Complains of RUQ pain radiating to the back. Pain is constant and takes tylenol. Notes intermittent diarrhea - usually once a week. Hx of PUD.? No ulcer on FU EGD. Complains of difficulty urinating and advised to schedule a FU appt with Dr Hubbard Complains of right flank pain for the past 4 to 5 days radiating anteriorly - has a hx of renal stones and was advised to FU with Urology. Intermittent abdominal bloating. Has a BM daily and notes occasional diarrhea Scheduled for an EGD in 07/19 and did not come for the appt since she was not feeling good. She would like to reschedule. Pt was seen by Dr Michele (ID) for Hepatitis C and she was prescribed Mavyret x 8 weeks Pt states she unable to start treatment since ? medication was not covered. She will fax the letter from her Insurance to the GI clinic Noted GOMEZ and diarrhea after she was prescribed medications for DM. Diagnosed with Hepatitis C ? 10 yrs ago. Denies IVDA.? Had blood transfusion several yrs ago. Intermittent fatigue and GOMEZ. Patient denies symptoms of heartburn, dysphagia, nausea, vomiting, change in appetite.? Weight fluctuates. Chronic constipation and diet related diarrhea. Denies recent change in bowel habits, black stools or rectal bleeding. Patient denies major cardiac or pulmonary problems, loud snoring or sleep apnea Denies problems with anesthesia in the past. Denies being on chronic anticoagulation. Patient denies known family history of liver disease, colon polyps, or other GI malignancies. Paternal uncle had colon cancer and of the disease. PAST EGD/COLONOSCOPY:? EGD a long time ago showed stomach ulcers. Never had a colonoscopy. PAST GI HISTORY BY REVIEW OF MEDICAL RECORDS: 04/2018 Pt was seen in the GI clinic by QUENTIN Branch: 53 yo female returns for a scheduled off ice visit for cirrhosis and hepatitis? C. ?occupational therapy manager Ingrid Miller interprets for todays'? visit. ?Patient has been seen in the past for treatment of hepatitis C? but was inconsistent in keeping appointments and never received treatment. She? had been scheduled for an EGD in 2016 but study was cancelled due to blood? sugars too high. Has not been seen since 2016. ?Patient comes today as? she is asking for an EGD and colonoscopy to be performed. States that the clinic? she attends has ordered Amanda to treat her Hepatitis C but patient requests? that the EGD be performed before she starts the treatment. States that she's had? an ulcer in the past and wants to make sure her stomach was ok. Additionally she? states that she hasn't had a colonoscopy and would like that to be performed? before starting treatment. ?Patient states that she was recently seen? in the ER for back pain and was told that she had a pinched nerve. Reviewing the? CT notes that she had two kidney stones- a 2 and a 3mm on the right and an 8mm? on the left. Her WBC count was at 17 and there was blood in her urine. The Ct? also noted that the surface of her liver was c/w cirrhosis. Is aware that she? needs a repeat diagnostic study every 6 months for HCC surveillance. Liver labs? reveal AST 41, ALT 54, GGT 55, alk phos 155. ?The CT also reveal that? she has diverticulosis and was unaware. States that she moves her bowels nearly? every day but does have intermittent straining and will have blood on the? tissue. ?No previous colonoscopy. No family h/o colon cancer. Patient? is diabetic and states that she lost a lot of weight and remarks that her? diabetes is better controlled. 1.?Cirrhosis of liver without ascites, u nspecified hepatic cirrhosis? type? Notes: Patient has cirrhosis- most likely from Hep C. Is aware? that she will need q6 months HCC surveillance.?? 2.?H/O gastric ulcer? Notes: Patient has a h/o gastric ulcer? in 2000- is concerned that she wants to make sure her stomach is healthy before? starting Harvoni. 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 Mother Diabetes mellitus Sister Diabetes mellitus Brother No problems noted. Paternal Uncle Colon cancer Social History Household Members: None Housing: Apartment Do you presently have visiting nurse or other home services: No Alcohol intake: current Alcohol intake frequency: a few times a month Alcohol type: beer Patient Tobacco Use Status: Current someday Tobacco user Tobacco use type: Cigarette Cigarettes Per Day: 3 Years Smoked: 15 service: No Review of Systems Const All systems reviewed & are unremarkable except as noted in HPI and below Physical Exam Vital Signs: Last Vital Signs Pulse 50 01/18/23 09:59 BP 144/85 H 01/18/23 09:59 BMI result Body Mass Index 30.1 Const General: healthy appearing and no acute distress Nutritional Appearance: obese Orientation/consciousness: patient oriented x3 Limitations: language barrier HEENT Head: Yes normal to inspection Ears: hearing grossly normal bilaterally Eyes Sclerae: sclerae normal Pupils: Equal, round and reactive pupils present Neck Neck: Yes normal visual inspection Chest Chest palpation & inspection: normal inspection of the chest Resp Effort & Inspection: normal respiratory effort Auscultation: clear to auscultation bilaterally Cardio Palpation: normal PMI Rate: regular rate Rhythm: regular rhythm Heart sounds: S1 normal heart sound present, S2 normal heart sound present and no murmurs GI Palpation (GI): Soft to palpation, nontender and No hepatosplenomegaly present Auscultation: normal bowel sounds Rectal Exam - Female: deferred Skin General skin exam: no rashes or lesions noted Neuro General: patient oriented x3, gait normal and moves all extremities Cranial nerves: Yes Equal, round and reactive pupils present Psych Appearance: grossly normal Mental Status: mental status grossly normal Assessment & Plan Assessment & Plan (1) RUQ abdominal pain: Code(s): R10.11 - Right upper quadrant pain (2) Cirrhosis: Code(s): K74.60 - Unspecified cirrhosis of liver (3) Hepatitis C: Comment: She has chronic active hepatitis-C. She has not completed any treatment. She is concerned about trouble swallowing pills and duration of treatment course. I did explain the severity of hepatitis C and the lack of any intramuscular or IV treatment options so patient said she would try to swallow pills and take pills with food. She is also medication for hypercholesterolemia which may have some interaction with glecaprevir/pibrentasvir which is Mavyret She has no evidence of prior liver damage Code(s): B19.20 - Unspecified viral hepatitis C without hepatic coma (4) Chronic headaches: Code(s): R51.9 - Headache, unspecified; G89.29 - Other chronic pain Plan 57 YF with asthma, Htn, DM followed in GI for cirrhosis complicated by mild thrombocytopenia (Liver Fibrosis score 0.73, Liver Fibrosis stage F3- F4) due to hepatitis-C infection (possibly acquired by a blood transfusion several yrs ago). Patient denies having a colonoscopy in the past. Patient has not had treatment for hepatitis-C since she has trouble swallowing pills. On 12/01/22 @ 13:29 Sarah Haddad Wrote To Ashlie Maldonado telephone call was placed to patient to inquire about below. patient reports she started taking the Mavyret on November 06 and d/c'd it on November 13 due to throbbing headaches she was constantly getting. patient reports that she was advised to continue taking medication and that headache would subside. patient reports that this was not the case. patient reports that she was taking Tylenol 650mg and there was no improvement. she states that she cannot take too much Tylenol due to her Cirrhosis. patient states she was awaiting appointment to further discuss and receive your recommendation/suggestions. patient also reported fatigue, and trouble sleeping. 05/05/22 EGD was performed (FU of PUD) and findings as noted above Pt was seen by Dr Michele (ID) for Hepatitis C and she was prescribed Mavyret x 8 weeks Pt states she unable to start treatment since she is unable to swallow large pills/ ? medication was not covered. (Checked with [facility] pharmacist - Mavyret is available in pellet form containing Glecaprevir 50 mg and pibrentasvir 20 mg Pt can mix with peanut butter or irish yogurt - she will need to take 6 packets daily. New prescription was sent for Mavyret. REDUCING THE RISK OF LIVER PROGRESSION:? patient was advised to completely avoid use of alcohol and lose weight. ?HCC SURVEILLANCE: ? the patient is at risk of developing hepatocellular carcinoma given the presence of cirrhosis and need 6 monthly imaging surveillance with either abdominal ultrasound (US) or multiphase cross-sectional imaging (CT or MRI).? Last Abd CT SCAN in 12/2021 and abd US in Jul, 2022 had shown no focal liver lesions suspicious of HCC.? SURVEILLANCE FOR GASTROESOPHAGEAL VARICES: No varices noted on EGD in 04/2022. QUESTION OF LIVER TRANSPLANTATION: ? As she has never had any hepatic decompensation, and continues to have good hepatic synthetic function with meld score of 7, liver transplantation does not need to be considered at this time. Pt? will be scheduled for a colonoscopy for colon cancer screening. FU in 3 months ? ? ? Medications: New glecaprevir-pibrentasvir 100-40 mg (Mavyret) ?? must administer with a meal/food 3 tabs? PO DAILY 8 weeks 168 tabs 0RF Orders: Referrals Neurology Referral R51.9 - Headache, unspecified, G89.29 - Other chronic pain Coding Level of Care Code Est Pt Level 4 (02529) Diagnoses RUQ abdominal pain R10.11 Cirrhosis K74.60 Hepatitis C B19.20 Chronic headaches R51.9; G89.29 Time Spent (min) 22
[2023-01-18 09:59] VITALS: BP 144/85; PULSE 50; BMI 30.1
== END 2023-01-18 10:53 | disposition home or self-care (01) ==
PROVIDERS: PCP Nurse Practitioner Primary Care; Visit Provider Internal Medicine Gastroenterology
DX: R10.11 Right upper quadrant pain (principal); K74.60 Unspecified cirrhosis of liver; B19.20 Unspecified viral hepatitis C without hepatic coma; R51.9 Headache, unspecified; G89.29 Other chronic pain
CPT/HCPCS: 99499

== ENCOUNTER → 2023-01-18 09:28 | Outpatient (BNVA) | payer MEDICAID, SELFPAY | PROVIDERS: PCP Nurse Practitioner Primary Care; Visit Provider Internal Medicine Gastroenterology ==

== ENCOUNTER → 2023-02-14 14:25 | Outpatient (REF) | payer MEDICAID, SELFPAY | LOC: HO.SL 14:25 | PROVIDERS: PCP Nurse Practitioner Primary Care; Visit Provider Internal Medicine | DX: Z13.89 Encounter for screening for other disorder (principal) ==

== ENCOUNTER 2023-02-16 18:01 | Outpatient (REF) | payer MEDICAID, SELFPAY | END 2023-02-16 18:02 | disposition home or self-care (01) | LOC: HO.HHCLNP 18:01 | PROVIDERS: Visit Provider Internal Medicine Geriatric Medicine | DX: R30.0 Dysuria (principal) | CPT/HCPCS: 87086 ==

== ENCOUNTER 2023-02-23 19:50 | Outpatient (REF) | payer MEDICAID, SELFPAY ==
[2023-02-24 14:35] LABS: BV Int Neg Control Negative (Negative); BV Int Pos Control Positive (Positive)
== END 2023-02-23 19:51 | disposition home or self-care (01) ==
LOC: HO.HHCLNP 19:50
PROVIDERS: Visit Provider Nurse Practitioner Primary Care
DX: N76.0 Acute vaginitis (principal); R30.0 Dysuria
CPT/HCPCS: 87480; 87510; 87660

== ENCOUNTER 2023-02-25 10:55 | Emergency (ER) | payer MEDICAID, SELFPAY ==
--- NOTE | ~2023-02-25 | CT_ITS ---
EXAMINATION: CT ABDOMEN AND PELVIS WITHOUT CONTRAST CLINICAL INFORMATION: History of stones, pain COMPARISON: CT abdomen pelvis 11/23/2022 TECHNIQUE: Multidetector volumetric imaging was performed from the superior aspect of the liver through the pubic symphysis. Sagittal and coronal reformatted images were obtained on the technologist's workstation. This CT examination was performed using dose optimization techniques as appropriate, variously including the following: *Automated exposure control *Adjustment of mA and/or kV according to patient size (this includes techniques or standardized protocols for targeted exams where dose is matched to indication/reason for exam; i.e. extremities or head) *Use of iterative reconstruction technique DLP: 584 mGy-cm FINDINGS: LUNG BASES: Unremarkable. ABDOMINAL AND PELVIC WALL: Minimal subcutaneous fat stranding in the ventral abdominal wall may reflect sequelae of prior injections. LIVER AND BILIARY TREE: Nodular hepatic contour compatible with cirrhosis. Liver is enlarged measuring 20.8 cm in span. GALLBLADDER: Status post cholecystectomy. PANCREAS: Unremarkable. SPLEEN: Few calcified splenic granulomas. Spleen measures 12.3 cm in span which is within upper limits of normal. Accessory splenules. ADRENAL GLANDS: Unremarkable. KIDNEYS AND URETERS: 8 mm nonobstructing left lower pole renal stone. No hydronephrosis or obstructive ureterolithiasis. GASTROINTESTINAL TRACT: Colonic diverticulosis without evidence of diverticulitis. Normal appendix. VASCULAR: Unremarkable. LYMPH NODES/PERITONEUM: No lymphadenopathy. FREE FLUID: None. BLADDER: Urinary bladder is under distended however appears thick-walled relative to degree of underdistention, recommend correlation with symptoms of cystitis. PELVIC VISCERA: Unremarkable. OSSEOUS STRUCTURES: Unremarkable. CT/CT abdomen pelvis wo IV con IMPRESSION: 1. An 8 mm nonobstructing left lower pole renal stone. No hydronephrosis or obstructive ureterolithiasis. 2. Urinary bladder is under distended however appears thick-walled relative to degree of underdistention, recommend correlation with symptoms of cystitis. 3. Hepatomegaly and nodular hepatic contour compatible with cirrhosis.
[2023-02-25 11:00] VITALS: BP 124/76; PULSE 65; RESP 20; TEMP 36.4; O2SAT 95; BMI 31.7
[2023-02-25 11:40] LABS: Appearance Urine Turbid; Color Urine Dark Yellow; Glucose Urine UA 100 mg/dL (Negative); Leukocyte Esterase Urine Small (1+) (Negative); Nitrite Urine Negative (Negative); PH 5.5 (5.0-9.0); Specific Gravity - Urine 1.025 (1.005-1.025); UMIC TRIGGER UACC YES; Urine Blood Trace (Negative); Urine Ketones Trace mg/dL (Negative); Urine Protein 30 (1+) mg/dL (Neg-Trace)
[2023-02-25 11:45] LABS: MANUAL DIFF FLAG NO
--- NOTE | 2023-02-25 11:47 | PC.NURSE ---
pt a&o x4, pleasant, calm, and cooperative. mostly luxembourgish speaking. reports 9/10 abdominal pain. UA obtained, IV established, labs drawn. rr even/unlabored. wctm
--- NOTE | 2023-02-25 11:48 | ED.GENADULT ---
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 Patient states that she is having lower abdominal pain and foul smelling urine. Patient states that she is also having burning pain of the vaginal area. Patient denies any dizziness, lightheadedness, nausea, vomiting, fever, chills, blurry vision, double vision, loss of vision, chest pain, difficulty breathing, shortness of breath, back pain, night sweats, pain with urination, increased urinary frequency, increased urinary urgency, blood in her urine or stool, syncope or a near syncopal episode, recent trauma or falls, bowel incontinence, bladder incontinence, bowel retention, bladder retention, or any other complaints at this time. Onset (ago): day(s) Location: abdomen Radiation: non-radiation Severity: mild Severity scale (1-10): 3 Quality: aching and dull Pain Consistency: constant Relieving factors: none Exacerbating factors: none Associated symptoms: denies other symptoms Treatments prior to arrival: none Related Data Home Medications Medication Instructions Recorded Confirmed albuterol sulfate 90 mcg/actuation 2 puff inhalation Q6H PRN 07/28/20 01/10/23 aerosol inhaler (Ventolin HFA) Shortness Of Breath aspirin 81 mg tablet,delayed 81 mg PO DAILY 07/28/20 01/10/23 release (Adult Low Dose Aspirin) gabapentin 300 mg capsule 300 mg PO TID 07/28/20 01/10/23 lisinopril 40 mg tablet 40 mg PO DAILY 07/28/20 01/10/23 loperamide 2 mg tablet (Imodium 2 mg PO Q6H PRN Loose Stool 07/28/20 01/10/23 A-D) simvastatin 20 mg tablet 20 mg PO DAILY 07/28/20 01/10/23 amlodipine 5 mg tablet 1 tab PO QAM 10/19/20 01/10/23 fluticasone propionate 220 1 puff PO BID 10/19/20 01/10/23 mcg/actuation HFA aerosol inhaler (Flovent HFA) metoprolol succinate 25 mg 0.5 tab PO QAM 10/25/20 01/10/23 tablet,extended release 24 hr albuterol sulfate 2.5 mg/3 mL mg inhalation TID PRN wheezing 10/12/22 01/10/23 (0.083 %) solution for nebulization cholecalciferol (vitamin D3) 25 25 mcg PO QAM 10/12/22 01/10/23 mcg (1,000 unit) capsule (Vitamin D3) insulin glargine 100 unit/mL (3 60 unit subcut DAILY 10/12/22 01/10/23 mL) subcutaneous pen (Lantus Solostar U-100 Insulin) insulin lispro 100 unit/mL 20 unit subcut TID 10/12/22 01/10/23 subcutaneous pen lidocaine 5 % topical patch 0 patch topical 10/12/22 01/10/23 pen needle, diabetic 31 gauge x #1,200 ea 10/12/22 01/10/2312/12 (UltiCare Pen Needle) pioglitazone 15 mg tablet 15 mg PO QAM 10/12/22 01/10/23 prazosin 2 mg capsule 2 mg PO BEDTIME 10/12/22 01/10/23 quetiapine 200 mg tablet 200 mg PO BEDTIME 10/12/22 01/10/23 trazodone 150 mg tablet 150 mg PO BEDTIME PRN insomnia 10/12/22 01/10/23 Previous Rx's Medication Instructions Recorded ibuprofen 600 mg tablet 600 mg PO TID PRN pain #14 tabs 10/03/20 ketorolac 10 mg tablet 10 mg PO Q6H PRN pain 5 days #20 11/11/21 tabs sucralfate 1 gram tablet (Carafate) 1 g PO TID #90 tabs 01/12/22 naproxen 500 mg tablet 500 mg PO BID 7 days #14 tabs 05/27/22 tolterodine 2 mg capsule,extended 2 mg PO DAILY #10 caps 09/21/22 release 24 hr (Detrol LA) pyridoxine (vitamin B6) 100 mg 100 mg PO DAILY #90 tabs 10/12/22 tablet esomeprazole magnesium 20 mg 20 mg PO BID 30 days #60 caps 10/26/22 capsule,delayed release glecaprevir 100 mg-pibrentasvir 40 3 tab PO DAILY 8 weeks #168 tabs 10/26/22 mg tablet (Mavyret) cefdinir 300 mg capsule 300 mg PO BID 7 days #14 caps 02/25/23 fluconazole 150 mg tablet 150 mg PO Q3D 2 doses #2 tabs 02/25/23 (Diflucan) Allergies Allergy/AdvReac Type Severity Reaction Status Date / Time No Known Allergies Allergy Mild NOT Verified 02/25/23 11:04 APPLICABLE Review of Systems Constitutional: Constitutional: Reports no additional constitutional complaints, Denies chills, Denies fever(s) and Denies night sweats Eyes: Eyes: Reports no additional eye complaints, Denies blurry vision, Denies change in vision, Denies diplopia, Denies eye discharge, Denies loss of vision and Denies eye pain ENT: Denies dizziness Cardiovascular: Cardiovascular: Reports no additional cardiovascular complaints, Denies chest pain, Denies lightheadedness, Denies Loss of Consciousness and Denies dyspnea Respiratory: Respiratory: Reports no additional respiratory complaints and Denies dyspnea Gastrointestinal: Gastrointestinal: Reports no additional gastrointestinal complaints, Reports abdominal pain, Denies melena, Denies hematochezia, Denies change in bowel habits and Denies change in stool character Genitourinary: Genitourinary: Denies hematuria, Denies urinary frequency, Denies dysuria, Denies urinary incontinence, Denies urinary hesitancy and Denies urinary urgency Musculoskeletal: Musculoskeletal: Reports no additional musculoskeletal complaints, Denies numbness and Denies tingling Neurologic: Denies dizziness, Denies loss of vision, Denies numbness and Denies tingling Psychiatric: Psychiatric: Reports no additional psychiatric complaints Endocrine: Endocrine: Reports no additional endocrine complaints Hematologic/Lymphatic: Hematologic/Lymphatic: Reports no additional hematologic/lymphatic complaints Allergic/Immunologic: Allergic/Immunologic: Reports no additional allergic/immunologic complaints PMFSH Past Medical History Attestation statement: The following information was validated with the patient. Source: old records reviewed and nursing notes reviewed Medical History Abdominal distension (gaseous) Anxiety Asthma Benign neoplasm of pituitary gland and craniopharyngeal duct Bilateral hand pain Bipolar disorder Chronic hepatitis C without hepatic coma Cirrhosis of liver without ascites COVID-19 Depression Diabetes mellitus, insulin dependent (IDDM), uncontrolled Flank pain Flank pain GERD (gastroesophageal reflux disease) Hepatitis C HTN (hypertension) Hyperlipidemia Kidney stone Left foot pain Mononeuritis Obese Panic disorder Renal stones Rheumatoid arthritis RUQ abdominal pain Somnolence, daytime Surgical History History of esophagogastroduodenoscopy (EGD) Hx of cholecystectomy Hx of lithotripsy Family History Family History Father No problems noted. Mother Diabetes mellitus Sister Diabetes mellitus Brother No problems noted. Paternal Uncle Colon cancer Social History Social History Household Members: None Housing: Apartment Alcohol intake: never Patient Tobacco Use Status: Current someday Tobacco user Tobacco use type: Cigarette Cigarettes Per Day: 2 Years Smoked: 15 Smoked in Last 30 Days: Yes Use of substances other than those prescribed or required for medical reasons: No Advance Directives: No Advance Directives Information Provided: Yes Physical Exam ED Vital Signs: Vital Signs - 24 hr 02/25/23 11:00 02/25/23 12:00 Temperature 97.5 F 97.9 F Pulse Rate 65 53 Respiratory Rate 20 16 Blood Pressure 124/76 137/64 Pulse Oximetry 95 96 Oxygen Delivery Method Room Air Room Air BMI result Body Mass Index 31.7 Const General: cooperative, no acute distress, alert and awake Nutritional Appearance: well nourished Orientation/consciousness: patient oriented x3 Limitations: no limitations [facility] Head: Yes normal to inspection and Yes atraumatic Ears: hearing grossly normal bilaterally and external ears normal General nose exam: Normal external nose present, no nasal discharge noted and no epistaxis Face and sinus: Yes normal facial exam, No abrasion and No laceration Mouth: Normal oral and palatal mucosa present, no drooling and no muffled voice Eyes General: appearance normal, both eyes and all related structures Periorbital: periorbital findings normal Eyelids: Yes eyelids normal Conjunctivae: conjunctivae normal Pupils: Equal, round and reactive pupils present EOM: EOMs intact bilaterally Neck Neck: Yes normal visual inspection, Yes full ROM and Yes no lymphadenopathy Chest Chest palpation & inspection: normal inspection of the chest Resp Effort & Inspection: normal respiratory effort and able to speak in complete sentences Auscultation: clear to auscultation bilaterally Cardio Rate: regular rate Rhythm: regular rhythm GI Inspection: Yes normal to inspection Palpation (GI): Soft to palpation, not firm, nontender and no guarding Neuro General: patient oriented x3 and moves all extremities Cranial nerves: Yes Equal, round and reactive pupils present Cognition (Neuro): normal cognition Motor exam (neuro): 5/5 motor strength present throughout Sensory Exam: Normal double simultaneous stimulation for sensation Coordination: [id number] test normal Extrem General: Yes normal to inspection, Yes full ROM and Yes capillary refill normal Psych Appearance: grossly normal Mental Status: mental status grossly normal Affect: normal affect Attitude: cooperative Thought process: Normal thought process present Thought content: Normal thought content present Insight: Good insight present (Psych) Medications Administered Discontinued Medications Generic Name Dose Route Start Last Admin Trade Name Freq PRN Reason Stop Dose Admin Sodium Chloride 1,000 mls @ 999 mls/hr 02/25/23 12:15 02/25/23 13:38 Ns IV 02/25/23 13:15 Infused .Q1H1M ELISE Infusion Ketorolac Tromethamine 15 mg 02/25/23 12:07 02/25/23 12:28 Ketorolac Tromethamine 15 Mg/Ml Vial IVPUSH 02/25/23 12:08 15 mg ONCE ONE Administration Medical Decision Making Medical Decision Making MDM Narrative: Patient is a 57 year old assigned female at with a history of asthma, PAD, and kidney stones presenting to the emergency department today with lower abdominal pain and foul smelling urine. Patient's physical exam was unremarkable. Patient's blood work was unremarkable. Patient's urine showed an acute infection. Patient's abdomen/pelvis CT showed non-obstructing kidney stones and evidence of cystitis. I explained my physical exam findings as well as all test results to the patient. I answered all questions asked by the patient. I stressed the importance of the patient taking her medication as prescribed. I stressed the importance of the patient following up with her primary care provider and a urologist. I stressed the importance of the patient returning to the emergency department immediately if her symptoms were to worsen or if she were to develop any dizziness, shortness of breath, difficulty breathing, chest pain, blurry vision, loss of vision, nausea, vomiting, abdominal pain, fever, chills, back pain, or any other complaints. Patient verbalized agreement and understanding with this treatment plan and discharge. Differential Diagnosis Differential Diagnoses: The differential diagnosis associated with the presentation includes UTI Cystitis Pyelonephritis Kidney stone Admission/Observation Consideration of admission/observation: Escalation of care including admission/observation considered Patient would have been admitted to the hospital had her work up had any findings where hospital admission was appropriate and her clinical presentation warranted hospital admission. Lab Data MDM Lab Attestation statement: I reviewed the patient's lab results. My interpretation of these studies and their corresponding values is that they are grossly normal with the exception of the evidence of a urinary tract infection. 02/25/23 11:39 02/25/23 11:39 Labs: Lab Results 02/25/23 02/25/23 02/25/23 Range/Units 11:33 11:39 11:39 WBC 5.1 (4.8-10.8) X10*3/uL RBC 4.21 (4.20-5.50) X10*6/uL Hgb 11.9 L (12.0-16.0) g/dl Hct 36.1 L (37.0-47.0) % MCV 85.7 (80.0-98.0) fL MCH 28.3 (27.0-33.0) pg MCHC 33.0 (31.0-35.0) g/dl RDW 12.7 (11.0-16.0) % Plt Count 117 L (160-400) X10*3/uL MPV 9.9 (9.4-12.3) fL Immature Gran % (Auto) 0.2 (0.0-0.4) % Neut % (Auto) 53.0 (45-73) % Lymph % (Auto) 31.8 (20-40) % [place] % (Auto) 12.2 H (2-11) % Eos % (Auto) 2.4 (0-4) % Baso % (Auto) 0.4 (0-2) % Lymph # (Auto) 1.6 (1.2-4.9) X10*3/uL [place] # (Auto) 0.6 (0.1-1.2) X10*3/uL Eos # (Auto) 0.1 (0.0-0.4) X10*3/uL Baso # (Auto) 0.0 (0.0-0.2) X10*3/uL Abs Immat Gran (auto) 0.01 (0.00-0.03) X10*3/uL Absolute Neuts (auto) 2.7 (2.0-8.3) x10*3/uL Absolute Nucleated RBC 0.000 (0.0-0.012) X10*3/uL Nucleated RBC % (auto) 0.0 (0.0-0.2) /100WBC Sodium 139 (135-145) mmol/L Potassium 3.8 (3.3-5.1) mmol/L Chloride 107 (96-108) mmol/L Carbon Dioxide 21 L (22-29) mmol/L Anion Gap 15 (12-20) BUN 12 (9-16) mg/dL Creatinine 0.92 (0.5-1.4) mg/dL Estim Creat Clear Calc 66.4 Estimated GFR > 60 Random Glucose 198 H (60-115) mg/dL Calcium 9.5 (8.4-10.2) mg/dL Magnesium 2.0 (1.6-2.6) mg/dL Total Bilirubin 0.5 (0.0-1.0) mg/dL Direct Bilirubin 0.2 (0.0-0.5) mg/dL AST 64 H (5-31) U/L ALT 73 H (0-31) U/L Alkaline Phosphatase 167 H (39-117) U/L Total Protein 7.2 (6.5-8.0) g/dL Albumin 3.7 (3.5-5.0) g/dL Urine Color Dark Yellow Urine Appearance Turbid Urine pH 5.5 (5.0-9.0) Ur Specific [place] 1.025 (1.005-1.025) Urine Protein 30 (1+) H (Neg-Trace) mg/dL Urine Glucose (UA) 100 H (Negative) mg/dL Urine Ketones Trace (Negative) mg/dL Urine Blood Trace H (Negative) Urine Nitrite Negative (Negative) Ur Leukocyte Esterase Small (1+) H (Negative) Urine RBC 11-20 H (0-2) /HPF Urine WBC 11-20 H (0-5) /HPF Ur Squamous Epith Cells >20 (0-2) /HPF Urine Bacteria 4+ (None Seen) Hyaline Casts 11-20 (0-2) /LPF Independent Interpretation I performed an independent interpretation of an: CT Scan Interpretation: My interpretation is in agreement with the radiologist's impression of this imaging study. EXAMINATION: CT ABDOMEN AND PELVIS WITHOUT CONTRAST? CLINICAL INFORMATION: History of stones, pain? COMPARISON: CT abdomen pelvis 11/23/2022 TECHNIQUE: Multidetector volumetric imaging was performed from the superior aspect of the liver through the pubic symphysis. Sagittal and coronal reformatted images were obtained on the technologist's workstation.? This CT examination was performed using dose optimization techniques as appropriate, variously including the following: *Automated exposure control *Adjustment of mA and/or kV according to patient size (this includes techniques or standardized protocols for targeted exams where dose is matched to indication/reason for exam; i.e. extremities or head) *Use of iterative reconstruction technique DLP: 584 mGy-cm FINDINGS: LUNG BASES: Unremarkable.? ABDOMINAL AND PELVIC WALL:? Minimal subcutaneous fat stranding in the ventral abdominal wall may reflect sequelae of prior injections.? LIVER AND BILIARY TREE: Nodular hepatic contour compatible with cirrhosis. Liver is enlarged measuring 20.8 cm in span.? GALLBLADDER: Status post cholecystectomy.? PANCREAS: Unremarkable.? SPLEEN: Few calcified splenic granulomas. Spleen measures 12.3 cm in span which is within upper limits of normal. Accessory splenules.? ADRENAL GLANDS: Unremarkable.? KIDNEYS AND URETERS: 8 mm nonobstructing left lower pole renal stone. No hydronephrosis or obstructive ureterolithiasis. GASTROINTESTINAL TRACT: Colonic diverticulosis without evidence of diverticulitis.? Normal appendix. VASCULAR: Unremarkable. LYMPH NODES/PERITONEUM: No lymphadenopathy. FREE FLUID: None. BLADDER: Urinary bladder is under distended however appears thick-walled relative to degree of underdistention, recommend correlation with symptoms of cystitis.? PELVIC VISCERA: Unremarkable. OSSEOUS STRUCTURES: Unremarkable.? CT/CT abdomen pelvis wo IV con IMPRESSION: 1.? An 8 mm nonobstructing left lower pole renal stone. No hydronephrosis or obstructive ureterolithiasis. 2.? Urinary bladder is under distended however appears thick-walled relative to degree of underdistention, recommend correlation with symptoms of cystitis. 3.? Hepatomegaly and nodular hepatic contour compatible with cirrhosis. Dictated By: Shruthi Velasco MD Signed By: Electronically signed by Shruthi Velasco MD 02/25/23 7958 Radiology Impression Discussion of test interpretation with radiology: I have reviewed the radiologist's reading. Prescription Management I considered prescription management with: Antibiotic (patient prescribed an antibiotic) Discharge Plan Discharge Clinical Impression: Urinary tract infection Patient Disposition: Home, Self-Care Instructions: Urinary Tract Infection in Women (DC) Additional Instructions: Follow up with your primary care provider and your urologist for your kidney stones. Return to the emergency department immediately if your symptoms worsen or if you develop any dizziness, shortness of breath, difficulty breathing, chest pain, blurry vision, loss of vision, nausea, vomiting, abdominal pain, fever, chills, back pain, or any other complaints. Luba un seguimiento con palmer proveedor de atenci?n primaria y palmer ur?logo para [place] c?lculos renales. Regrese al departamento de emergencias de inmediato si [place] s?ntomas empeoran o si presenta mareos, falta de aire, dificultad para respirar, dolor de pecho, visi?n borrosa, p?rdida de la visi?n, n?useas, v?mitos, dolor abdominal, fiebre, escalofr?os, dolor de espalda o cualquier otras quejas. Prescriptions: New fluconazole [Diflucan] 150 mg tablet 150 mg PO Q3D Qty: 2 0RF cefdinir 300 mg capsule 300 mg PO BID 7 Days Qty: 14 0RF No Action ibuprofen 600 mg tablet 600 mg PO TID PRN (Reason: pain) Qty: 14 0RF amlodipine 5 mg tablet 1 tab PO QAM fluticasone propionate [Flovent HFA] 220 mcg/actuation HFA aerosol inhaler 1 puff PO BID metoprolol succinate 25 mg tablet extended release 24 hr 0.5 tab PO QAM ketorolac 10 mg tablet 10 mg PO Q6H PRN (Reason: pain) 5 Days Qty: 20 0RF Rx Instructions: 1. Patient received Toradol in the emergency room. 2. Patient needs to stop all other NSAIDs: Ibuprofen, Motrin, Aleve, Naprosyn, Mobic sucralfate [Carafate] 1 gram tablet 1 g PO TID Qty: 90 0RF naproxen 500 mg tablet 500 mg PO BID 7 Days Qty: 14 0RF tolterodine [Detrol LA] 2 mg capsule,extended release 24hr 2 mg PO DAILY Qty: 10 0RF albuterol sulfate [Ventolin HFA] 90 mcg/actuation HFA aerosol inhaler 2 puff inhalation Q6H PRN (Reason: Shortness Of Breath) loperamide [Imodium A-D] 2 mg tablet 2 mg PO Q6H PRN (Reason: Loose Stool) gabapentin 300 mg capsule 300 mg PO TID simvastatin 20 mg tablet 20 mg PO DAILY lisinopril 40 mg tablet 40 mg PO DAILY aspirin [Adult Low Dose Aspirin] 81 mg tablet,delayed release (DR/EC) 81 mg PO DAILY esomeprazole magnesium 20 mg capsule,delayed release(DR/EC) 20 mg PO BID 30 Days Qty: 60 3RF Mavyret 100-40 mg tablet 3 tab PO DAILY 56 Days Qty: 168 0RF Rx Instructions: must administer with a meal/food insulin glargine [Lantus Solostar U-100 Insulin] 100 unit/mL (3 mL) insulin pen 60 unit subcut DAILY (DME) pen needle, diabetic [UltiCare Pen Needle] 31 gauge x 5/16 needle See Rx Instructions .ROUTE QID Qty: 1200 Rx Instructions: As directed insulin lispro 100 unit/mL insulin pen 20 unit subcut TID prazosin 2 mg capsule 2 mg PO BEDTIME lidocaine 5 % adhesive patch,medicated 0 patch topical trazodone 150 mg tablet 150 mg PO BEDTIME PRN (Reason: insomnia) quetiapine 200 mg tablet 200 mg PO BEDTIME pioglitazone 15 mg tablet 15 mg PO QAM albuterol sulfate 2.5 mg /3 mL (0.083 %) solution for nebulization inhalation TID PRN (Reason: wheezing) cholecalciferol (vitamin D3) [Vitamin D3] 25 mcg (1,000 unit) capsule 25 mcg PO QAM pyridoxine (vitamin B6) 100 mg tablet 100 mg PO DAILY Qty: 90 3RF Referrals: [facility] [place] [facility] [Provider Group] (Call to establish and follow up with a urologist for your kidney stones. Llame para establecer y hacer un seguimiento con un ur?logo para [place] c?lculos renales.) Wanda Bonilla NP [Primary Care Provider] - Interventions: ED Discharge Assessment Last Done: 02/25/23 13:56 Discharge Date/Time: 02/25/23 13:56 Print Language: Vietnamese
[2023-02-25 11:49] LABS: Basophils Percent Auto 0.4 % (0-2); Eosinophils Absolute Auto 0.1 X10*3/uL (0.0-0.4); Eosinophils Percent Auto 2.4 % (0-4); Hematocrit 36.1 % (37.0-47.0); Hemoglobin 11.9 g/dl (12.0-16.0); Imm Gran Abs Auto 0.01 X10*3/uL (0.00-0.03); Imm Gran Pct Auto 0.2 % (0.0-0.4); Lymphocytes Absolute Auto 1.6 X10*3/uL (1.2-4.9); Lymphocytes Percent Auto 31.8 % (20-40); Mean Corpuscular Hemoglobin 28.3 pg (27.0-33.0); Mean Corpuscular Volume 85.7 fL (80.0-98.0); Mean Platelet Volume 9.9 fL (9.4-12.3); Monocytes Absolute Auto 0.6 X10*3/uL (0.1-1.2); Monocytes Percent Auto 12.2 % (2-11); Neutrophils Absolute Auto 2.7 x10*3/uL (2.0-8.3); Platelet Count 117 X10*3/uL (160-400); Red Blood Count 4.21 X10*6/uL (4.20-5.50); Red Cell Distribution Width 12.7 % (11.0-16.0); White Blood Count 5.1 X10*3/uL (4.8-10.8)
[2023-02-25 11:49] LABS: Bacteria Urine 4+ (None Seen); Squamous Epithelial Cell Urine >20 /HPF (0-2); UACC Culture Trigger YES
[2023-02-25 11:58] LABS: Anion Gap 15 (12-20); Blood Urea Nitrogen 12 mg/dL (9-16); Calcium 9.5 mg/dL (8.4-10.2); Carbon Dioxide 21 mmol/L (22-29); Chloride 107 mmol/L (96-108); Creatinine Clr Calc Pharmacy 66.4; Estimated Glomerular Filt Rate > 60; Glucose Random 198 mg/dL (60-115); Potassium 3.8 mmol/L (3.3-5.1); Sodium 139 mmol/L (135-145)
[2023-02-25 12:00] VITALS: BP 137/64; PULSE 53; RESP 16; TEMP 36.6; O2SAT 96
[2023-02-25] MEDS: 0.9 % Sodium Chloride 1,000 ML 999 ML IV (12:28)
[2023-02-25] MEDS: Ketorolac Tromethamine 15 MG/ML VIAL IVPUSH (12:28)
[2023-02-25 12:40] LABS: Alanine Aminotransferase 73 U/L (0-31); Albumin Level 3.7 g/dL (3.5-5.0); Alkaline Phosphatase 167 U/L (39-117); Aspartate Amino Transferase 64 U/L (5-31); Bilirubin Direct 0.2 mg/dL (0.0-0.5); Bilirubin Total 0.5 mg/dL (0.0-1.0); Total Protein 7.2 g/dL (6.5-8.0)
== END 2023-02-25 13:56 | disposition home or self-care (01) ==
PROVIDERS: Physician Assistant Medical; Emergency Provider Student in an Organized Health Care Education/Training Program; PCP Nurse Practitioner Primary Care
DX: N39.0 Urinary tract infection, site not specified (principal); R10.2 Pelvic and perineal pain; F17.210 Nicotine dependence, cigarettes, uncomplicated; Z71.6 Tobacco abuse counseling; Z79.899 Other long term (current) drug therapy
CPT/HCPCS: 36415; 74176; 80048; 80076; 81001; 83735; 85025; 87086; 96361; 96374; 99284; 99285; J1885

== ENCOUNTER 2023-03-09 19:38 | Outpatient (REF) | payer MEDICAID, SELFPAY | END 2023-03-09 19:39 | disposition home or self-care (01) | LOC: HO.HHCLNP 19:38 | PROVIDERS: Visit Provider Internal Medicine | DX: N39.0 Urinary tract infection, site not specified (principal) | CPT/HCPCS: 87086 ==

== ENCOUNTER 2023-03-14 13:39 | Outpatient (AMB) | payer MEDICAID, SELFPAY ==
--- NOTE | 2023-03-14 13:47 | MHC.OFFVIS ---
Intake Vital Signs 03/14/23 13:48 Weight 177 lb 7.554 oz BP 148/70 H Blood Pressure Location Rt brachial Position Sitting Pulse 60 Pulse Source Pulse Oximeter Pulse Oximetry (%) 98 Oxygen Delivery Method Room Air Intake Visit Reasons: Asthma Allergies No Known Allergies Allergy (Mild, Verified 03/14/23 14:22) NOT APPLICABLE Medication List - Last Reconciled 03/14/23 by Jennifer Amaya MD albuterol sulfate 90 mcg/actuation (Ventolin HFA) 2 puffs inhalation Q6H PRN albuterol sulfate mg inhalation TID PRN amlodipine 1 tab PO QAM aspirin (Adult Low Dose Aspirin) 81 mg PO DAILY cefdinir 300 mg PO BID 7 days cholecalciferol (vitamin D3) (Vitamin D3) 25 mcg PO QAM esomeprazole magnesium 20 mg PO BID 30 days fluconazole (Diflucan) 150 mg PO Q3D 2 doses fluticasone propionate 220 mcg/actuation (Flovent HFA) 1 puff PO BID gabapentin 300 mg PO TID glecaprevir-pibrentasvir 100-40 mg (Mavyret) 3 tabs PO DAILY 8 weeks ibuprofen 600 mg PO TID PRN insulin glargine (Lantus Solostar U-100 Insulin) 60 units subcut DAILY insulin lispro 20 units subcut TID ketorolac 10 mg PO Q6H PRN 5 days lidocaine 5% 0 patches topical lisinopril 40 mg PO DAILY loperamide (Imodium A-D) 2 mg PO Q6H PRN metoprolol succinate ER 0.5 tabs PO QAM naproxen 500 mg PO BID 7 days pen needle, diabetic (UltiCare Pen Needle) As directed pioglitazone 15 mg PO QAM prazosin 2 mg PO BEDTIME pyridoxine (vitamin B6) 100 mg PO DAILY quetiapine 200 mg PO BEDTIME simvastatin 20 mg PO DAILY sucralfate (Carafate) 1 g PO TID tolterodine ER (Detrol LA) 2 mg PO DAILY trazodone 150 mg PO BEDTIME PRN Do you need a note to return to daycare/school/sports/work: No HPI Asthma HPI Details This 57 years old female is here for follow-up for her bronchial asthma, and sleep apnea. She claims that her breathing is fair as long as she uses Flovent 2 puffs twice a day, and she rarely needs to use the rescue inhaler. She was supposed to have a home-based sleep study, she took the study device home, but never used it. She tells me that she is trying to sleep on her sides and sleep s good. She is not interested in completing the sleep test. she still smokes a few cigarettes daily on some days of the week. [facility] Medical History Abdominal distension (gaseous) Anxiety Asthma Benign neoplasm of pituitary gland and craniopharyngeal duct Bilateral hand pain Bipolar disorder Chronic hepatitis C without hepatic coma Cirrhosis of liver without ascites COVID-19 Depression Diabetes mellitus, insulin dependent (IDDM), uncontrolled Flank pain Flank pain GERD (gastroesophageal reflux disease) Hepatitis C HTN (hypertension) Hyperlipidemia Kidney stone Left foot pain Mononeuritis Obese Panic disorder Renal stones Rheumatoid arthritis RUQ abdominal pain Somnolence, daytime Surgical History History of esophagogastroduodenoscopy (EGD) Hx of cholecystectomy Hx of lithotripsy Family History Father No problems noted. Mother Diabetes mellitus Sister Diabetes mellitus Brother No problems noted. Paternal Uncle Colon cancer Social History Household Members: None Housing: Apartment Alcohol intake: current Alcohol intake frequency: a few times a month Alcohol type: beer Patient Tobacco Use Status: Current someday Tobacco user Tobacco use type: Cigarette Cigarettes Per Day: 2 Years Smoked: 15 Review of Systems Const All systems reviewed & are unremarkable except as noted in HPI and below Eyes Reports no additional complaints ENT Reports no additional complaints Card Denies chest pain, Denies irregular heart rhythm and Denies leg edema Resp Reports as per HPI GI Reports dyspepsia and Reports heartburn Reports no additional complaints Musc Reports back pain Skin/Breast Reports system reviewed and no additional complaints, except as documented Neuro Reports no additional complaints Psych Reports no additional complaints Endo Reports other (IDDM ) Aller/Immun Reports no additional complaints Physical Exam Vital Signs: Last Vital Signs Pulse 60 03/14/23 13:48 BP 148/70 H 03/14/23 13:48 Pulse Ox 98 03/14/23 13:48 Oxygen Delivery Method Room Air 03/14/23 13:48 Const General: healthy appearing (except for being slightly over weight ), comfortable, no acute distress, alert and awake Orientation/consciousness: patient oriented x3 HEENT Head: Yes normal to inspection General nose exam: No nasal polyps present and No nasal discharge present Face and sinus: Yes sinuses nontender Mouth: oropharynx normal (Mallampatti class=3) Throat: Yes posterior oropharynx normal Eyes General: appearance normal, both eyes and all related structures Neck Neck: Yes normal visual inspection, Yes no lymphadenopathy, Yes trachea midline, Yes no JVD and Yes other (Neck circumference=15.5 ) Thyroid: Thyroid normal Chest Chest palpation & inspection: normal inspection of the chest, normal palpation of entire chest wall and no tenderness Resp Effort & Inspection: normal respiratory effort Auscultation: no crackles, no wheezes and diminished lung sounds (slightly distant ) Cardio Palpation: normal PMI Rate: regular rate Rhythm: regular rhythm Heart sounds: no gallops and no murmurs Peripheral pulses: Peripheral pulses 2+ throughout GI Palpation (GI): Soft to palpation, nontender, No hepatosplenomegaly present and no masses Auscultation: normal bowel sounds Back/Spine/Pelvis Thoracic/Lumbar Spine: thoracic and lumbar spine normal to inspection Skin General skin exam: no rashes or lesions noted Neuro General: patient oriented x3 and no focal motor deficits Cranial nerves: Yes CN's II-XII intact bilaterally Extrem General: Yes normal to inspection, Yes no clubbing, cyanosis or edema and Yes no calf tenderness Psych Appearance: grossly normal and well kempt Speech and movement: Normal speech and movement present Assessment & Plan Assessment & Plan (1) Asthma: Comment: ASTHMA /COPD, NEEDS TO HAVE PFT s TO SEE IF SHE WILL NEED SOME STRONGER AGENTS . HOWEVER PATIENT HAS NOT BEEN ABLE TO DO THE TEST . TX: CONT. USING FLOVENT-220 2 PUFFS BID ,AND PROAIR 2 PUFFS Q 6 HRS ONLY PRN . Code(s): J45.909 - Unspecified asthma, uncomplicated (2) Sleep disorder, unspecified: Comment: HISTORY OF SNORING, FREQUENT AWAKENING AT NIGHT WITH SHORTNESS OF BREATH,, DAYTIME FATIGUE/SLEEPINESS, OBSTRUCTIVE SLEEP APNEA IS SUSPECTED . PATIENT DID TAKE THE SLEEP TEST DEVICE AT HOME, BUT YOLY DID THE TEST . TODAY SHE TELLS ME THAT SHE IS NOT INTERESTED IN DOING ANY SLEEP, TEST AND SHE IS RETURNING THE TEST DEVICE. SLEEP HYGIENE IS DISCUSSED WITH THE PATIENT, AND SHE WILL CONTINUE TO SLEEP IN LATERAL POSITION. Code(s): G47.9 - Sleep disorder, unspecified Coding Level of Care Code Est Pt Level 3 (50352) Diagnoses Asthma J45.909 Sleep disorder, unspecified G47.9
[2023-03-14 13:48] VITALS: BP 148/70; PULSE 60; O2SAT 98
== END 2023-03-14 14:20 | disposition home or self-care (01) ==
PROVIDERS: PCP Nurse Practitioner Primary Care; Visit Provider Internal Medicine
DX: J45.909 Unspecified asthma, uncomplicated (principal); G47.9 Sleep disorder, unspecified
CPT/HCPCS: 99213

== ENCOUNTER → 2023-03-14 13:39 | Outpatient (BNVA) | payer MEDICAID, SELFPAY | PROVIDERS: PCP Nurse Practitioner Primary Care; Visit Provider Internal Medicine | DX: J45.909 Unspecified asthma, uncomplicated (principal); G47.9 Sleep disorder, unspecified | CPT/HCPCS: 99212 ==

== ENCOUNTER 2023-03-28 14:12 | Outpatient (AMB) | payer MEDICAID, SELFPAY ==
--- NOTE | 2023-03-28 14:18 | A.OFFVIS_ITS ---
Intake Intake Visit Reasons: ER Follow up/ recurrent UTI/cystitis Intake Note: Patient is present for ER follow up/recurrent uti/cystitis Urology Medications: tolterodine Blood Thinner: none Fish Bait Picker Required: Yes Accompanied by: Self / Same As Patient Allergies No Known Allergies Allergy (Mild, Verified 03/28/23 15:04) NOT APPLICABLE Medication List - Last Reconciled 03/28/23 by ADRIANNE Gar-TIGRE albuterol sulfate 90 mcg/actuation (Ventolin HFA) 2 puffs inhalation Q6H PRN albuterol sulfate mg inhalation TID PRN amlodipine 1 tab PO QAM aspirin (Adult Low Dose Aspirin) 81 mg PO DAILY cefdinir 300 mg PO BID 7 days cholecalciferol (vitamin D3) (Vitamin D3) 25 mcg PO QAM esomeprazole magnesium 20 mg PO BID 30 days fluconazole (Diflucan) 150 mg PO Q3D 2 doses fluticasone propionate 220 mcg/actuation (Flovent HFA) 1 puff PO BID gabapentin 300 mg PO TID glecaprevir-pibrentasvir 100-40 mg (Mavyret) 3 tabs PO DAILY 8 weeks ibuprofen 600 mg PO TID PRN insulin glargine (Lantus Solostar U-100 Insulin) 60 units subcut DAILY insulin lispro 20 units subcut TID ketorolac 10 mg PO Q6H PRN 5 days lidocaine 5% 0 patches topical lisinopril 40 mg PO DAILY loperamide (Imodium A-D) 2 mg PO Q6H PRN metoprolol succinate ER 0.5 tabs PO QAM naproxen 500 mg PO BID 7 days pen needle, diabetic (UltiCare Pen Needle) As directed pioglitazone 15 mg PO QAM prazosin 2 mg PO BEDTIME pyridoxine (vitamin B6) 100 mg PO DAILY quetiapine 200 mg PO BEDTIME simvastatin 20 mg PO DAILY sucralfate (Carafate) 1 g PO TID tolterodine ER (Detrol LA) 2 mg PO DAILY trazodone 150 mg PO BEDTIME PRN HPI HPI Comments History of Present Illness Details Tank is a 57-year-old Wolof-speaking female patient of Dr. Bonilla. She has a past medical history of anxiety, asthma, bipolar disorder, chronic hep C, cirrhosis of the liver, depression, diabetes, GERD, hyperlipidemia, rheumatoid arthritis, and kidney stones. She presents to the office today for a follow up of her nephrolithiasis. When asked she reports to be doing and feeling well. Of note, patient was previously seen approximately [address] Miller at which time a CT was ordered for further assessment evaluation and recommendations were made for 8 week follow up however patient reports she was unable to keep scheduled follow up. Recent CT results reviewed with the patient today. 8 mm nonobstructing left lower pole renal stone. No hydronephrosis or obstructive ureterolithiasis. Urinary bladder is under distended however appears thick-walled relative to degree of underdistention, recommend correlation with symptoms of cystitis. When asked she does report having chronic lower back pain. She does report feeling bilateral flank pain. However, no CVA tenderness noted on exam today bilaterally. Discussed surveillance monitoring versus left-sided ESWL. Discussed risks and benefits of surveillance monitoring verses further surgical intervention. In office urinalysis results reviewed with the patient today. She denies urinary urgency, urinary frequency, incontinence, nocturia, hematuria, dysuria, foul smelling urine, changes to urinary stream, flank pain, fever, and or chills. She is happy with her current voiding parameters. Discussed at length importance of drinking plenty of water daily as well as following up as recommended. PFSH Medical History Abdominal distension (gaseous) Anxiety Asthma Benign neoplasm of pituitary gland and craniopharyngeal duct Bilateral hand pain Bipolar disorder Chronic hepatitis C without hepatic coma Cirrhosis of liver without ascites COVID-19 Depression Diabetes mellitus, insulin dependent (IDDM), uncontrolled Flank pain Flank pain GERD (gastroesophageal reflux disease) Hepatitis C HTN (hypertension) Hyperlipidemia Kidney stone Left foot pain Mononeuritis Obese Panic disorder Renal stones Rheumatoid arthritis RUQ abdominal pain Somnolence, daytime Surgical History History of esophagogastroduodenoscopy (EGD) Hx of cholecystectomy Hx of lithotripsy Family History Father No problems noted. Mother Diabetes mellitus Sister Diabetes mellitus Brother No problems noted. Paternal Uncle Colon cancer Social History Household Members: None Housing: Apartment Alcohol intake: current Alcohol intake frequency: a few times a month Alcohol type: beer Patient Tobacco Use Status: Current someday Tobacco user Tobacco use type: Cigarette Cigarettes Per Day: 2 Years Smoked: 15 Review of Systems Const Reports as per [facility] Eyes Reports no additional complaints ENT Reports no additional complaints Card Reports as per HPI Resp Reports as per HPI GI Reports as per HPI Reports as per [facility] Musc Reports as per [facility] Neuro Reports as per [facility] Psych Reports as per HPI Endo Reports as per HPI Physical Exam Const General: cooperative, comfortable, no acute distress, well developed, alert and awake Orientation/consciousness: patient oriented x3 Limitations: no limitations HEENT Head: Yes normal to inspection, Yes normocephalic and Yes atraumatic Ears: hearing grossly normal bilaterally Eyes General: appearance normal, both eyes and all related structures Neck Neck: Yes normal visual inspection and Yes trachea midline Chest Chest palpation & inspection: normal inspection of the chest Resp Effort & Inspection: normal respiratory effort and able to speak in complete sentences Cardio Rate: regular rate GI Inspection: Yes normal to inspection General: Yes no CVA tenderness Back/Spine/Pelvis Back: no CVA tenderness Skin General skin exam: no rashes or lesions noted Neuro General: patient oriented x3 Extrem General: Yes normal to inspection Psych Appearance: grossly normal and well kempt Mental Status: mental status grossly normal Speech and movement: Normal speech and movement present and Clear speech present Affect: normal affect Attitude: cooperative Thought process: Normal thought process present Thought content: Normal thought content present Insight: Fair insight present (Psych) Judgement: Fair judgement present (Psych) Office Procedures Post Void Residual Post Residual Void Post Void Residual (PVR): 23 [id number] Void Residual by ultrasound Results AMB Urinalysis, Automated UA Leukoctes 15 Cailin/uL Last Edit by Lluvia Olson on 03/28/23 14:51 UA Nitrite Negative Last Edit by Chartbeatzhane Olson on 03/28/23 14:51 UA Urobilinogen 0.2 mg/dL Last Edit by Array Bridgepeyman Olson on 03/28/23 14:51 UA Protein 15 mg/dL Last Edit by Lluvia Olson on 03/28/23 14:51 UA pH 6.0 Last Edit by Lluvia Olson on 03/28/23 14:51 UA Blood 10 Chris/uL Last Edit by Lluvia Olson on 03/28/23 14:51 UA Specific [place] 1.020 Last Edit by Lluvia Olson on 03/28/23 14:51 UA Ketone Negative Last Edit by Lluvia Olson on 03/28/23 14:51 UA Bilirubin 0 mg/dL Last Edit by Lluvia Olson on 03/28/23 14:51 UA Glucose 0 mg/dL Last Edit by Lluvia Olson on 03/28/23 14:51 Results Reviewed Results Reviewed: Laboratory Last Values Urine pH (Auto) 6.0 03/28/23 14:49 Specific [place] (Auto) 1.020 03/28/23 14:49 Urine Protein (Auto) 15 mg/dL 03/28/23 14:49 Glucose (UA)(Auto) 0 mg/dL 03/28/23 14:49 Urine Ketones (Auto) Negative 03/28/23 14:49 Urine Blood (Auto) 10 Chris/uL 03/28/23 14:49 Urine Nitrite (Auto) Negative 03/28/23 14:49 Urine Bilirubin (Auto) 0 mg/dL 03/28/23 14:49 Urine Urobilinogen (Auto) 0.2 mg/dL 03/28/23 14:49 Leukocyte Esterase (Auto) 15 Cailin/uL 03/28/23 14:49 Ordering Physician: Eve Desai Date of Service: 02/25/23 Procedure(s): CT abdomen pelvis wo IV con Accession Number(s): [id number] cc: Eve Desai~ EXAMINATION: CT ABDOMEN AND PELVIS WITHOUT CONTRAST? CLINICAL INFORMATION: History of stones, pain? COMPARISON: CT abdomen pelvis 11/23/2022 TECHNIQUE: Multidetector volumetric imaging was performed from the superior aspect of the liver through the pubic symphysis. Sagittal and coronal reformatted images were obtained on the technologist's workstation.? This CT examination was performed using dose optimization techniques as appropriate, variously including the following: *Automated exposure control *Adjustment of mA and/or kV according to patient size (this includes techniques or standardized protocols for targeted exams where dose is matched to indication/reason for exam; i.e. extremities or head) *Use of iterative reconstruction technique DLP: 584 mGy-cm FINDINGS: LUNG BASES: Unremarkable.? ABDOMINAL AND PELVIC WALL:? Minimal subcutaneous fat stranding in the ventral abdominal wall may reflect sequelae of prior injections.? LIVER AND BILIARY TREE: Nodular hepatic contour compatible with cirrhosis. Liver is enlarged measuring 20.8 cm in span.? GALLBLADDER: Status post cholecystectomy.? PANCREAS: Unremarkable.? SPLEEN: Few calcified splenic granulomas. Spleen measures 12.3 cm in span which is within upper limits of normal. Accessory splenules.? ADRENAL GLANDS: Unremarkable.? KIDNEYS AND URETERS: 8 mm nonobstructing left lower pole renal stone. No hydronephrosis or obstructive ureterolithiasis. GASTROINTESTINAL TRACT: Colonic diverticulosis without evidence of diverticulitis.? Normal appendix. VASCULAR: Unremarkable. LYMPH NODES/PERITONEUM: No lymphadenopathy. FREE FLUID: None. BLADDER: Urinary bladder is under distended however appears thick-walled relative to degree of underdistention, recommend correlation with symptoms of cystitis.? PELVIC VISCERA: Unremarkable. OSSEOUS STRUCTURES: Unremarkable.? CT/CT abdomen pelvis wo IV con IMPRESSION: 1.? An 8 mm nonobstructing left lower pole renal stone. No hydronephrosis or obstructive ureterolithiasis. 2.? Urinary bladder is under distended however appears thick-walled relative to degree of underdistention, recommend correlation with symptoms of cystitis. 3.? Hepatomegaly and nodular hepatic contour compatible with cirrhosis. Assessment & Plan Assessment & Plan (1) Flank pain: Comment: CT scan Code(s): R10.9 - Unspecified abdominal pain (2) Renal stones: Code(s): N20.0 - Calculus of kidney Plan: Plan Extracorporeal Shock Wave Lithotripsy We discussed the nature of the decision and reasonable alternatives for performing the above surgery. Interventions include chemical dissolution, ESWL, ureteroscopy with laser lithotripsy and stent placement, PCNL. ? Options such as medical therapy were discussed. The relative uncertainties and benefits related to each alternate procedure were adequately discussed. General surgical risks including, but not limited to, pain, bleeding, infection, myocardial infarction, pulmonary embolus, deep vein thrombosis and cerebrovascular accident which may result in further hospitalization were discussed.? Full disclosure of the procedure as well as all major risks, benefits and complications were discussed including but not limited to risks of bleeding, injury to the kidney with hematoma or dane-hematoma, failure to fragments stone, potential for ureteric obstruction from stone passage and need for secondary procedures.? There is a small long-term risk of hypertension and a question saurav of diabetes.? Success rate of fragmentation and passage is approximately 70- 75%.? This is compared to the risks and benefits for ureteroscopy which has a higher success rate but is a more invasive procedure. The success rate of the procedure was discussed. Success of the procedure in the short-term does not necessarily guarantee that long-term success will be maintained. Suitable follow up will need to be maintained. The patient showed understanding of the discussion as well as the typical recovery time, and the outpatient nature of this procedure. Opportunity was given for questions. Repeat-back protocol used to confirm understanding. They wish to proceed with Left sided ESWL Plan In office urinalysis results reviewed with the patient today; as noted above. Recent CT KUB results reviewed with the patient today; as noted above. Discussed at length surveillance monitoring verses further surgical intervention; discussed risks versus benefits of surveillance monitoring versus surgical intervention. ESWL information pamphlet provided Patient reporting bilateral flank pain however no CVA tenderness noted on exam today Discussed, educated, instructed on the importance of drinking plenty of water daily. All questions were answered. Will schedule for left-sided ESWL with Dr. Flores as discussed and planned Follow-up left-sided ESWL per Dr. Flores's orders and or sooner with any issues, concerns, and or questions. Orders: Orders AMB Urinalysis Automated Today Z13.9 - Encounter for screening, unspecified AMB Post Void Residual by ultrasound Today N20.0 - Calculus of kidney Patient Instructions: The patient had an opportunity to ask questions regarding the treatment plan. All questions were answered. Physical exam, labs, and imaging were discussed and reviewed in detail. As well as risks, benefits, and discussion of treatment choices. No major barriers to understanding were identified. The patient expressed understanding and agreement with the above treatment plan. The patient was made aware they should contact our office by phone for worsening of their current condition, the appearance of new symptoms, or with any questions or concerns. Compliance is encouraged with any medications and follow up testing that is ordered. It is a privilege to be allowed the opportunity to participate in? your urological care.? Again, if you have any questions or concerns If you have any questions or concerns please do not hesitate to contact me. The office is [phone]. This note is constructed using voice recognition software. While every effort has been made to ensure accuracy histological illustrator errors may have been included. Yours sincerely, ADRIANNE Gar-TIGRE Coding Level of Care Code Est Pt Level 4 (13620) Diagnoses Flank pain R10.9 Renal stones N20.0 CPT Codes Post Residual Void - PVR CPT Code: 41318-[place]oyk Void Residual by ultrasound ([id number])
== END 2023-03-28 15:04 | disposition home or self-care (01) ==
PROVIDERS: PCP Nurse Practitioner Primary Care; Visit Provider Nurse Practitioner Family
DX: N20.0 Calculus of kidney (principal); Z13.9 Encounter for screening, unspecified
CPT/HCPCS: 99214

== ENCOUNTER → 2023-03-28 14:12 | Outpatient (BNVA) | payer MEDICAID, SELFPAY | PROVIDERS: PCP Nurse Practitioner Primary Care; Visit Provider Nurse Practitioner Family | DX: N20.0 Calculus of kidney (principal) | CPT/HCPCS: 51798; 81003; 99212 ==

== ENCOUNTER 2023-05-01 11:28 | Outpatient (REF) | payer MEDICAID, SELFPAY ==
[2023-05-01 13:55] LABS: Cholesterol 188 mg/dL (<200); HDL Cholesterol 53 mg/dL (>40); LDL Cholesterol Calculated 98 mg/dL (<100); Triglycerides 189 mg/dL (<150)
[2023-05-01 14:04] LABS: Creatinine Urine 302.38 mg/dL; Microalbum/Creatinine Ratio Ur 35.3 ug/mg cr (<30)
== END 2023-05-01 11:29 | disposition home or self-care (01) ==
LOC: HO.HHCL 11:28
PROVIDERS: Visit Provider Nurse Practitioner Primary Care
DX: E11.69 Type 2 diabetes mellitus with other specified complication (principal); E78.5 Hyperlipidemia, unspecified
CPT/HCPCS: 36415; 80061; 82043; 82570

== ENCOUNTER 2023-05-02 09:34 | Day surgery (SDC) | payer MEDICAID, SELFPAY ==
--- OUTSIDE RECORDS SUMMARY | 2023-05-02 09:38 | XMS_ITS | Continuity of Care Document ---
Author Name Unknown Organization [facility] Address [address] [address]- Care Team Providers Care Direct Service Provider Name Role Phone Wanda Bonilla NP Primary Care Physician Encounter [facility] Date(s): 02/08/23 - 03/10/23 [facility] [address] [address]- Attending Physician: Paulina Mercado Admitting Physician: AdmtrPaulina Referring Physician: Admtr, Ar8 Allergies, Adverse Reactions, Alerts No Known Allergies Medications Amlodipine By Mouth, Daily, 0 Refills, Maintenance, 01/15/23 11:03:00 EDT, Partial fill upon patient request if the prescription is for a schedule II opioid drug. Start Date: 01/15/23 Status: Ordered aspirin 81 mg oral capsule 1 capsule = 81 mg, By Mouth, Every 4 hours, 0 Refills, Maintenance, 01/15/23 11:03:00 EDT, Partial fill upon patient request if the prescription is for a schedule II opioid drug. Start Date: 01/15/23 Status: Ordered Gabapentin By Mouth, 0 Refills, Maintenance, 01/15/23 11:03:00 EDT, Partial fill upon patient request if the prescription is for a schedule II opioid drug. Start Date: 01/15/23 Status: Ordered Humalog 100 u/ml subcutaneous injection = 1 units, Subcutaneous Infusion, 0 Refills, Maintenance, 01/15/23 11:05:00 EDT, Partial fill upon patient request if the prescription is for a schedule II opioid drug. Start Date: 01/15/23 Status: Ordered Lisinopril By Mouth, Daily, 0 Refills, Maintenance, 01/15/23 11:04:00 EDT, Partial fill upon patient request if the prescription is for a schedule II opioid drug. Start Date: 01/15/23 Status: Ordered metoprolol 25 mg oral tablet 25 mg, 1, tablet, By Mouth, 2 times a day, Refills 0, Maintenance, 01/15/23 11:04:00 EDT, Partial fill upon patient request if the prescription is for a schedule II opioid drug. Start Date: 01/15/23 Status: Ordered Pioglitazone By Mouth, Daily, 0 Refills, Maintenance, 01/15/23 11:04:00 EDT, Partial fill upon patient request if the prescription is for a schedule II opioid drug. Start Date: 01/15/23 Status: Ordered Quetiapine By Mouth, Refills 0, Maintenance, 01/15/23 11:04:00 EDT, Partial fill upon patient request if the prescription is for a schedule II opioid drug. Start Date: 01/15/23 Status: Ordered Simvastatin By Mouth, 0 Refills, Maintenance, 01/15/23 11:05:00 EDT, Partial fill upon patient request if the prescription is for a schedule II opioid drug. Start Date: 01/15/23 Status: Ordered Vitamin B6 Daily, 0 Refills, Maintenance, 01/15/23 11:05:00 EDT, Partial fill upon patient request if the prescription is for a schedule II opioid drug. Start Date: 01/15/23 Status: Ordered Vitamin D3 1000 intl units oral capsule 1 capsule = 25 mcg, By Mouth, Daily, 0 Refills, Maintenance, 01/15/23 11:05:00 EDT, Partial fill upon patient request if the prescription is for a schedule II opioid drug. Start Date: 01/15/23 Status: Ordered Social History Social History Type Response Tobacco Use: 4 or less cigar ettes(less than 1/4 pack)/day in last 30 days. Sex Patient Care team information Care Team Personnel Name: Wanda Bonilla NP Position: S Outreach Member Role: PCP Address: Address: [address] [place] [address]- Care Team Related Persons Name: NICHO MART Address: home [address] [place] [address]
--- NOTE | 2023-05-02 10:30 | P.CONAN_ITS ---
[facility] Active Problems Active Problems: All Active Problems (Updated 03/14/23 @ 14:31 by Jennifer Amaya MD) Chronic headaches (Acute) Somnolence, daytime (Acute) PAD (peripheral artery disease) (Acute) Bilateral kidney stones (Acute) Cirrhosis (Acute) Calcaneal spur, left (Acute) Adverse effect of COVID-19 vaccine (Acute) Sleep disorder, unspecified (Acute) Asthma (Acute) Hepatitis C (Acute) Flank pain (Acute) Renal stones (Acute) Past Medical History Medical History Abdominal distension (gaseous) Anxiety Asthma Benign neoplasm of pituitary gland and craniopharyngeal duct Bilateral hand pain Bipolar disorder Chronic hepatitis C without hepatic coma Cirrhosis of liver without ascites COVID-19 Depression Diabetes mellitus, insulin dependent (IDDM), uncontrolled Flank pain Flank pain GERD (gastroesophageal reflux disease) Hepatitis C HTN (hypertension) Hyperlipidemia Kidney stone Left foot pain Mononeuritis Obese Panic disorder Renal stones Rheumatoid arthritis RUQ abdominal pain Somnolence, daytime Family History Family History Father No problems noted. Mother Diabetes mellitus Sister Diabetes mellitus Brother No problems noted. Paternal Uncle Colon cancer Family history of problems with anesthesia: No Surgical History Surgical History History of esophagogastroduodenoscopy (EGD) Hx of cholecystectomy Hx of lithotripsy History of Problems with Anesthesia: No Social History Social History Household Members: None Housing: Apartment Alcohol intake: current Alcohol intake frequency: a few times a month Alcohol type: beer Patient Tobacco Use Status: Current someday Tobacco user Tobacco use type: Cigarette Cigarettes Per Day: 2 Years Smoked: 15 Advance Directives: No Advance Directives Information Provided: Yes Meds Allergies Allergy/AdvReac Type Severity Reaction Status Date / Time No Known Allergies Allergy Mild NOT Verified 03/28/23 15:04 APPLICABLE Home Medications Medication Instructions Recorded Confirmed Last Taken Type albuterol sulfate 90 mcg/actuation 2 puff inhalation Q6H PRN 07/28/20 01/10/23 Unknown History aerosol inhaler (Ventolin HFA) Shortness Of Breath aspirin 81 mg tablet,delayed 81 mg PO DAILY 07/28/20 01/10/23 05/03/22 History release (Adult Low Dose Aspirin) gabapentin 300 mg capsule 300 mg PO TID 07/28/20 01/10/23 Unknown History lisinopril 40 mg tablet 40 mg PO DAILY 07/28/20 01/10/23 10/25/20 08:00 History loperamide 2 mg tablet (Imodium 2 mg PO Q6H PRN Loose Stool 07/28/20 01/10/23 Unknown History A-D) simvastatin 20 mg tablet 20 mg PO DAILY 07/28/20 01/10/23 Unknown History amlodipine 5 mg tablet 1 tab PO QAM 10/19/20 01/10/23 05/02/23 10:26 History fluticasone propionate 220 1 puff PO BID 10/19/20 01/10/23 Unknown History mcg/actuation HFA aerosol inhaler (Flovent HFA) metoprolol succinate 25 mg 0.5 tab PO QAM 10/25/20 01/10/23 10/25/20 08:00 History tablet,extended release 24 hr albuterol sulfate 2.5 mg/3 mL mg inhalation TID PRN wheezing 10/12/22 01/10/23 Unknown History (0.083 %) solution for nebulization cholecalciferol (vitamin D3) 25 25 mcg PO QAM 10/12/22 01/10/23 Unknown History mcg (1,000 unit) capsule (Vitamin D3) insulin glargine 100 unit/mL (3 60 unit subcut DAILY 10/12/22 01/10/23 Unknown History mL) subcutaneous pen (Lantus Solostar U-100 Insulin) insulin lispro 100 unit/mL 20 unit subcut TID 10/12/22 01/10/23 Unknown History subcutaneous pen lidocaine 5 % topical patch 0 patch topical 10/12/22 01/10/23 Unknown History pen needle, diabetic 31 gauge x #1,200 ea 10/12/22 01/10/23 Unknown History 12/12 (UltiCare Pen Needle) pioglitazone 15 mg tablet 15 mg PO QAM 10/12/22 01/10/23 Unknown History prazosin 2 mg capsule 2 mg PO BEDTIME 10/12/22 01/10/23 Unknown History quetiapine 200 mg tablet 200 mg PO BEDTIME 10/12/22 01/10/23 Unknown History trazodone 150 mg tablet 150 mg PO BEDTIME PRN insomnia 10/12/22 01/10/23 Unknown History Exam Exam Date and Time: May 02, 2023 1030 Height,Weight and Vital Signs: Height 5 ft 4 in Weight 79.379 kg Airway Mallampati Class: III TM Dist: >3cm Neck ROM: Full Assessment and Plan Assessment Anesthesia Assessment: Anesthesia Plan Discussed and Chart Reviewed Final Anesthetic Review Family History of Problems with Anesthesia: No History of Problems with Anesthesia: No NPO: Yes ASA Class: III Final Preanesthetic Review: No Changes in Pt Med Stat, Meds/Allgs Chart Reviewed, Consent Obtained/Reviewed and Anes Risks/Benef Reviewed Patient Risk: Intermediate Procedure Risk: Low Anesthetic Plan Anesthetic Plan: GA Disposition: Standard PACU
[2023-05-02 10:46] VITALS: BP 156/84; PULSE 56; RESP 16; TEMP 36.2; O2SAT 96
[2023-05-02 11:13] LABS: Glucose, Whole Blood 131 mg/dL (60-115)
[2023-05-02] MEDS: Lactated Ringers 500 ML 999 ML IV (11:19)
--- NOTE | 2023-05-02 13:48 | W.PM.OPN ---
Operative Note Operative Note Date of Service: 05/02/23 Narrative: PreOperative Diagnosis:? ? Left Renal stone Post Operative Diagnosis:?Left? Renal stone Procedure:?Left? ESWL Surgeon:?Dr Vianey Miller Anesthesia:? General Indications for procedure: The patient understands there is a risk of bruising or hematoma to the kidney, infection, and stone migration following the procedure and subsequent intervention may be required.? - Imaging Pre-procedure KUB Left kidney 9 mm stone lower pole Procedure: After informed consent was verified the patient was brought to the operating room and placed in a supine position.? Anesthesia was performed per protocol. Safety pause time-out was performed. Imaging was displayed in the room and laterality confirmed. ESWL was performed.?The stone was visualized on both fluoroscopy and ultrasound.? Shockwave lithotripsy was performed, the first 300 shocks at 60 hertz.? A pause for 2 minutes.? A total of 2500 shocks to a maximum of power of 18 with a maximum rate of 120 hertz.? Some fragmentation of the stone was appreciated. The patient tolerated the procedure well and was transferred to the recovery area upon completion. Complications: None
[2023-05-02 13:59] VITALS: BP 153/77; PULSE 61; RESP 20; TEMP 36.5; O2SAT 97
[2023-05-02 14:04] VITALS: BP 153/78; PULSE 60; RESP 20; O2SAT 98
[2023-05-02 14:09] VITALS: BP 159/88; PULSE 77; RESP 20; O2SAT 99
[2023-05-02 14:14] VITALS: BP 169/76; PULSE 57; RESP 20; TEMP 36.5; O2SAT 96
[2023-05-02 14:29] VITALS: BP 175/84; PULSE 60; RESP 16; TEMP 36.5; O2SAT 97
== END 2023-05-02 15:30 | disposition home or self-care (01) ==
PROVIDERS: PCP Nurse Practitioner Primary Care; Visit Provider Urology
PROC: (CPT 50590; principal; 2023-05-02 11:30)
DX: N20.0 Calculus of kidney (principal); E11.9 Type 2 diabetes mellitus without complications; E78.5 Hyperlipidemia, unspecified; B18.2 Chronic viral hepatitis C; K74.60 Unspecified cirrhosis of liver; J45.909 Unspecified asthma, uncomplicated; F31.9 Bipolar disorder, unspecified; F17.210 Nicotine dependence, cigarettes, uncomplicated; Z87.440 Personal history of urinary (tract) infections; Z90.49 Acquired absence of other specified parts of digestive tract; Z79.899 Other long term (current) drug therapy; Z79.82 Long term (current) use of aspirin; Z79.4 Long term (current) use of insulin
CPT/HCPCS: 50590; 74018; 82947; J0131; J0690; J1100; J2405

== ENCOUNTER → 2023-05-02 09:34 | Outpatient (BNV) | payer MEDICAID, SELFPAY | PROVIDERS: PCP Nurse Practitioner Primary Care; Visit Provider Urology | DX: N20.0 Calculus of kidney (principal) | CPT/HCPCS: 50590 ==

== ENCOUNTER 2023-05-04 21:17 | Observation (INO) | payer MEDICAID, SELFPAY ==
[2023-05-04 21:30] VITALS: BP 160/76; PULSE 71; RESP 18; O2SAT 98; BMI 31.2
[2023-05-04 22:00] VITALS: BP 145/76; PULSE 60; O2SAT 98
--- NOTE | 2023-05-04 22:19 | PC.NURSE ---
pt a&ox3. respirations even and unlabored. pt reporting lower abdominal pain and left flank pain since yesterday. pt reports having a lithotripsy done for kidney stones on may 02. pt reports urgency to urinate, trouble starting a stream, blood and burining with urination. pt reports pain when palpating the left flank and tenderness in the middle lower abdomen. abdomen soft. active bowel sounds in all 4 quadrants. urine and labs obtained and sent at this time. iv placed in right AC.
[2023-05-05] VITALS (8 sets, daily range): BP systolic 140–161; BP diastolic 61–80; PULSE 50–74; RESP 16–18; TEMP 36.1–37.1; O2SAT 93–98; BMI 31.4
--- NOTE | 2023-05-05 01:06 | ED.ABDPAIN ---
HPI - Abdominal Pain General Chief Complaint: Abdominal Pain Stated Complaint: kidney stone? 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 Patient states that she has been able to passed 2 small stones which she has an a cup, she denies any associated fevers or chills but describes significant discomfort on urination. Related Data Home Medications Medication Instructions Recorded Confirmed albuterol sulfate 90 mcg/actuation 2 puff inhalation Q6H PRN 07/28/20 01/10/23 aerosol inhaler (Ventolin HFA) Shortness Of Breath aspirin 81 mg tablet,delayed 81 mg PO DAILY 07/28/20 01/10/23 release (Adult Low Dose Aspirin) gabapentin 300 mg capsule 300 mg PO TID 07/28/20 01/10/23 lisinopril 40 mg tablet 40 mg PO DAILY 07/28/20 01/10/23 loperamide 2 mg tablet (Imodium 2 mg PO Q6H PRN Loose Stool 07/28/20 01/10/23 A-D) simvastatin 20 mg tablet 20 mg PO DAILY 07/28/20 01/10/23 amlodipine 5 mg tablet 1 tab PO QAM 10/19/20 01/10/23 fluticasone propionate 220 1 puff PO BID 10/19/20 01/10/23 mcg/actuation HFA aerosol inhaler (Flovent HFA) metoprolol succinate 25 mg 0.5 tab PO QAM 10/25/20 01/10/23 tablet,extended release 24 hr albuterol sulfate 2.5 mg/3 mL mg inhalation TID PRN wheezing 10/12/22 01/10/23 (0.083 %) solution for nebulization cholecalciferol (vitamin D3) 25 25 mcg PO QAM 10/12/22 01/10/23 mcg (1,000 unit) capsule (Vitamin D3) insulin glargine 100 unit/mL (3 60 unit subcut DAILY 10/12/22 01/10/23 mL) subcutaneous pen (Lantus Solostar U-100 Insulin) insulin lispro 100 unit/mL 20 unit subcut TID 10/12/22 01/10/23 subcutaneous pen lidocaine 5 % topical patch 0 patch topical 10/12/22 01/10/23 pen needle, diabetic 31 gauge x #1,200 ea 10/12/22 01/10/23/16 (UltiCare Pen Needle) pioglitazone 15 mg tablet 15 mg PO QAM 10/12/22 01/10/23 prazosin 2 mg capsule 2 mg PO BEDTIME 10/12/22 01/10/23 quetiapine 200 mg tablet 200 mg PO BEDTIME 10/12/22 01/10/23 trazodone 150 mg tablet 150 mg PO BEDTIME PRN insomnia 10/12/22 01/10/23 Previous Rx's Medication Instructions Recorded ibuprofen 600 mg tablet 600 mg PO TID PRN pain #14 tabs 10/03/20 sucralfate 1 gram tablet (Carafate) 1 g PO TID #90 tabs 01/12/22 naproxen 500 mg tablet 500 mg PO BID 7 days #14 tabs 05/27/22 tolterodine 2 mg capsule,extended 2 mg PO DAILY #10 caps 09/21/22 release 24 hr (Detrol LA) pyridoxine (vitamin B6) 100 mg 100 mg PO DAILY #90 tabs 10/12/22 tablet esomeprazole magnesium 20 mg 20 mg PO BID 30 days #60 caps 10/26/22 capsule,delayed release glecaprevir 100 mg-pibrentasvir 40 3 tab PO DAILY 8 weeks #168 tabs 10/26/22 mg tablet (Mavyret) cefdinir 300 mg capsule 300 mg PO BID 7 days #14 caps 02/25/23 fluconazole 150 mg tablet 150 mg PO Q3D 2 doses #2 tabs 02/25/23 (Diflucan) hydromorphone 2 mg tablet 2 mg PO Q6H PRN pain 2 days #8 tabs 05/02/23 (Dilaudid) Allergies Allergy/AdvReac Type Severity Reaction Status Date / Time No Known Allergies Allergy Mild NOT Verified 05/04/23 21:30 APPLICABLE Review of Systems Review of Systems Pertinent positives and negatives as stated in [facility] [place] Past Medical History Source: nursing notes reviewed Medical History Somnolence, daytime Flank pain RUQ abdominal pain Left foot pain Bilateral hand pain COVID-19 Hepatitis C Rheumatoid arthritis Flank pain Renal stones Bipolar disorder Panic disorder Depression Anxiety Abdominal distension (gaseous) Asthma Hyperlipidemia 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 Mother Diabetes mellitus Sister Diabetes mellitus Brother No problems noted. Paternal Uncle Colon cancer Social History Social History Household Members: None Housing: Apartment Alcohol intake: current Alcohol intake frequency: a few times a month Alcohol type: beer Patient Tobacco Use Status: Current everyday Tobacco user Tobacco use type: Cigarette Cigarettes Per Day: 3 Years Smoked: 15 Smoked in Last 30 Days: No Use of substances other than those prescribed or required for medical reasons: No Advance Directives: No Advance Directives Information Provided: No Physical Exam ED Vital Signs: Vital Signs - 24 hr 05/04/23 21:30 05/04/23 22:00 05/05/23 00:26 Temperature 98.8 F Pulse Rate 71 60 60 Respiratory Rate 18 16 Blood Pressure 160/76 H 145/76 H 144/71 H Pulse Oximetry 98 98 94 Oxygen Delivery Method Room Air Room Air Room Air BMI result Body Mass Index 31.2 VITAL SIGNS: Reviewed. GENERAL: Well developed, well nourished, in mild distress. HEAD: Normocephalic/atraumatic EYES: PERRLA, EOMI EARS: Ext canals without abnormality NOSE: Nares patent bilateral OROPHARYNX: no oral lesions noted, posterior pharynx clear NECK: Supple, no adenopathy LUNGS: Normal breath sounds. No adventitious sounds or accessory muscle use. SpO2<98> CARDIOVASCULAR: Regular rate and rhythm without noted murmurs ABDOMEN: Soft, non-tender, non-distended with bowel sounds. MUSCULOSKELETAL: No tenderness, deformities, or effusions noted on gross inspection. EXTREMITIES: No cyanosis, clubbing or edema. SKIN: Inspection of the skin reveals no rashes NEUROLOGIC: Alert and oriented x 4. Strength and sensation to light touch were grossly intact x 4. Medical Decision Making Medical Decision Making [facility] Narrative: 58-year-old female with history and clinical presentation, DDX: Renal colic, hydronephrosis, UTI Reviewed all investigations and hematologic indices are negative for leukocytosis or left shift, there is a stable normocytic anemia and stable chronic thrombocytopenia. Chemistry indices are negative for BELLA and otherwise there is no electrolyte or T bili derangements but ALT and alkaline phosphatase are chronically elevated. Urinalysis is significant for gross hematuria, patient offered Toradol which did improve her pain slightly but she still endorses significant discomfort. CT scan consistent for multiple small stones in the left distal ureter with proximal dilatation, there is also a noted subcapsular hematoma with a stable H/H. 0115: I discussed case with Urology, Dr. Miller, who recommends dilaudid and has reviewed the imaging studies and will accept patient as an admission to follow for pain management and stone passage. 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 Please see the discussion above 05/04/23 22:07 05/04/23 22:07 Labs: Lab Results 05/04/23 05/04/23 Range/Units 22:07 22:12 WBC 4.8 (4.8-10.8) X10*3/uL RBC 3.85 L (4.20-5.50) X10*6/uL Hgb 11.3 L (12.0-16.0) g/dl Hct 32.7 L (37.0-47.0) % MCV 84.9 (80.0-98.0) fL MCH 29.4 (27.0-33.0) pg MCHC 34.6 (31.0-35.0) g/dl RDW 12.7 (11.0-16.0) % Plt Count 105 L (160-400) X10*3/uL MPV 10.1 (9.4-12.3) fL Immature Gran % (Auto) 0.2 (0.0-0.4) % Neut % (Auto) 49.3 (45-73) % Lymph % (Auto) 36.9 (20-40) % [place] % (Auto) 11.7 H (2-11) % Eos % (Auto) 1.7 (0-4) % Baso % (Auto) 0.2 (0-2) % Lymph # (Auto) 1.8 (1.2-4.9) X10*3/uL [place] # (Auto) 0.6 (0.1-1.2) X10*3/uL Eos # (Auto) 0.1 (0.0-0.4) X10*3/uL Baso # (Auto) 0.0 (0.0-0.2) X10*3/uL Abs Immat Gran (auto) 0.01 (0.00-0.03) X10*3/uL Absolute Neuts (auto) 2.4 (2.0-8.3) x10*3/uL Absolute Nucleated RBC 0.000 (0.0-0.012) X10*3/uL Nucleated RBC % (auto) 0.0 (0.0-0.2) /100WBC Sodium 141 (135-145) mmol/L Potassium 3.8 (3.3-5.1) mmol/L Chloride 109 H (96-108) mmol/L Carbon Dioxide 23 (22-29) mmol/L Anion Gap 13 (12-20) BUN 12 (9-16) mg/dL Creatinine 1.15 (0.5-1.4) mg/dL Estim Creat Clear Calc 52.0 Estimated GFR 48 Random Glucose 217 H (60-115) mg/dL Calcium 9.1 (8.4-10.2) mg/dL Total Bilirubin 0.3 (0.0-1.0) mg/dL AST 28 (5-31) U/L ALT 35 H (0-31) U/L Alkaline Phosphatase 135 H (39-117) U/L Total Protein 7.0 (6.5-8.0) g/dL Albumin 3.7 (3.5-5.0) g/dL Urine Color Red A Urine Appearance Cloudy Urine pH 5.5 (5.0-9.0) Ur Specific [place] 1.010 (1.005-1.025) Urine Protein 100 (2+) H (Neg-Trace) mg/dL Urine Glucose (UA) Negative (Negative) mg/dL Urine Ketones Negative (Negative) mg/dL Urine Blood Large (3+) H (Negative) Urine Nitrite Negative (Negative) Ur Leukocyte Esterase Small (1+) H (Negative) Urine RBC >20 H (0-2) /HPF Urine WBC 11-20 H (0-5) /HPF Ur Squamous Epith Cells 3-5 (0-2) /HPF Urine Bacteria Trace (None Seen) Hyaline Casts 0-2 (0-2) /LPF Radiology Impression Discussion of test interpretation with radiology: I have reviewed the radiologist's reading. Radiologist Impression: Please see the discussion above External Record Review External record reviewed: Office record, Outpatient record, Prior outpatient labs and Prior outpatient radiology Chronic Conditions Patient?s care impacted by: Diabetes, Hypertension and Other Medications Administered Discontinued Medications Generic Name Dose Route Start Last Admin Trade Name Freq PRN Reason Stop Dose Admin Ketorolac Tromethamine 15 mg 05/05/23 00:24 05/05/23 00:40 Ketorolac Tromethamine 15 Mg/Ml Vial IVPUSH 05/05/23 00:25 15 mg ONCE ONE Administration Critical Care Time Critical Care Time Critical Care Time: Yes Total Critical Care Time: 30 Attestation: I personally attest to this time spent taking care of the patient. Discharge Plan Discharge Clinical Impression: Renal stones, Hematoma of kidney Patient Disposition: Admitted As Inpatient Prescriptions: No Action ibuprofen 600 mg tablet 600 mg PO TID PRN (Reason: pain) Qty: 14 0RF amlodipine 5 mg tablet 1 tab PO QAM fluticasone propionate [Flovent HFA] 220 mcg/actuation HFA aerosol inhaler 1 puff PO BID metoprolol succinate 25 mg tablet extended release 24 hr 0.5 tab PO QAM sucralfate [Carafate] 1 gram tablet 1 g PO TID Qty: 90 0RF naproxen 500 mg tablet 500 mg PO BID 7 Days Qty: 14 0RF tolterodine [Detrol LA] 2 mg capsule,extended release 24hr 2 mg PO DAILY Qty: 10 0RF fluconazole [Diflucan] 150 mg tablet 150 mg PO Q3D Qty: 2 0RF cefdinir 300 mg capsule 300 mg PO BID 7 Days Qty: 14 0RF hydromorphone [Dilaudid] 2 mg tablet 2 mg PO Q6H MDD 4 PRN (Reason: pain) 2 Days Qty: 8 0RF Rx Instructions: Partial Fill upon patient request. albuterol sulfate [Ventolin HFA] 90 mcg/actuation HFA aerosol inhaler 2 puff inhalation Q6H PRN (Reason: Shortness Of Breath) loperamide [Imodium A-D] 2 mg tablet 2 mg PO Q6H PRN (Reason: Loose Stool) gabapentin 300 mg capsule 300 mg PO TID simvastatin 20 mg tablet 20 mg PO DAILY lisinopril 40 mg tablet 40 mg PO DAILY aspirin [Adult Low Dose Aspirin] 81 mg tablet,delayed release (DR/EC) 81 mg PO DAILY esomeprazole magnesium 20 mg capsule,delayed release(DR/EC) 20 mg PO BID 30 Days Qty: 60 3RF Mavyret 100-40 mg tablet 3 tab PO DAILY 56 Days Qty: 168 0RF Rx Instructions: must administer with a meal/food insulin glargine [Lantus Solostar U-100 Insulin] 100 unit/mL (3 mL) insulin pen 60 unit subcut DAILY (DME) pen needle, diabetic [UltiCare Pen Needle] 31 gauge x 5/16 needle See Rx Instructions .ROUTE QID Qty: 1200 Rx Instructions: As directed insulin lispro 100 unit/mL insulin pen 20 unit subcut TID prazosin 2 mg capsule 2 mg PO BEDTIME lidocaine 5 % adhesive patch,medicated 0 patch topical trazodone 150 mg tablet 150 mg PO BEDTIME PRN (Reason: insomnia) quetiapine 200 mg tablet 200 mg PO BEDTIME pioglitazone 15 mg tablet 15 mg PO QAM albuterol sulfate 2.5 mg /3 mL (0.083 %) solution for nebulization inhalation TID PRN (Reason: wheezing) cholecalciferol (vitamin D3) [Vitamin D3] 25 mcg (1,000 unit) capsule 25 mcg PO QAM pyridoxine (vitamin B6) 100 mg tablet 100 mg PO DAILY Qty: 90 3RF
--- NOTE | 2023-05-05 01:13 | PC.NURSE ---
Pt reports minimal pain relief, 7/10. Reports lower abd pain. MD aware.
--- NOTE | 2023-05-05 01:30 | PC.NURSE ---
pt ambultaed to bathroom, pt had steady gait. no dizziness or SOB reported.
--- NOTE | 2023-05-05 01:50 | PM.HPGS ---
History of Present Illness History of Present Illness Date of Service: 05/05/23 Chief complaint: Left flank pain left nephrolithiasis Narrative: Tank Max is a 58 year old female presented to the ED for left flank pain and hematuria. S/P Left ESWL on 05/02/23. On exam minimal flank pain, tenderness Left lower quadrant. On review of CT imaging, small pericapsular hematoma not significant, approximatedly 3 left ureteral stones distal ureter largest. The patient passed a stone overnight which I evaluated, was about 3-4 mm. Patient states she is feeling better this morning. Evaluation with Certified purchasing intern. Plan: IV fluid hydration, pain management. Reevaluate with renal sono tomorrow. CT imaging KIDNEYS AND URETERS: There is a small left pericapsular hematoma. Multiple small stone fragments are present in the distal left ureter, the largest measuring about 4 mm, and this is associated with ureteral dilatation and left-sided pelvocaliectasis. Additional intrarenal calculi are seen the largest measuring 0.7 cm on the left. Calcification near the right renal pelvis may be vascular. 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 Mother Diabetes mellitus Sister Diabetes mellitus Brother No problems noted. Paternal Uncle Colon cancer Surgical History Surgical History Hx of lithotripsy History of esophagogastroduodenoscopy (EGD) Hx of cholecystectomy Social History Social History Household Members: None Housing: Apartment Do you presently have visiting nurse or other home services: No Alcohol intake: current Alcohol intake frequency: a few times a month Alcohol type: beer Patient Tobacco Use Status: Current someday Tobacco user Tobacco use type: Cigarette Cigarettes Per Day: 3 Years Smoked: 15 Smoked in Last 30 Days: No Use of substances other than those prescribed or required for medical reasons: No Have you been hit, kicked, punched, or otherwise hurt by someone within the past year? If so, by whom?: No Do you feel safe in your current relationship?: No Current Relationship Is there a partner from a previous relationship who is making you feel unsafe now?: No Are you made to feel afraid or neglected: No Advance Directives: No Advance Directives Information Provided: No Do you have thoughts of harming others: None Do you have a plan to hurt others: No Plan Recently lost weight without trying: No Nutrition Risks: No Nutritional Risk Patient : No : No Poor oral hygiene: No Meds Allergies Allergy/AdvReac Type Severity Reaction Status Date / Time No Known Allergies Allergy Mild NOT Verified 05/04/23 21:30 APPLICABLE Active Medications: Current Medications Acetaminophen (Acetaminophen 325 Mg Tablet) 650 mg PO Q6H PRN PRN Reason: Pain, Mild (Pain Scale 1-3) Docusate Sodium (Docusate Sodium 100 Mg Capsule) 100 mg PO DAILY PRN PRN Reason: Constipation Hydromorphone HCl (Hydromorphone Hcl 0.5 Mg/0.5 Ml Syringe) 0.5 mg IVPUSH Q3H PRN; Protocol PRN Reason: Pain, Moderate(Pain Scale 4-6) Sodium Chloride (Ns) 1,000 mls @ 999 mls/hr IV .Q1H1M [facility] Stop: 05/05/23 02:30 Last Admin: 05/05/23 01:29 Dose: 999 mls/hr Sodium Chloride (Ns) 1,000 mls @ 100 mls/hr IVCONT .Q10H [facility] Magnesium Hydroxide (Milk Of Magnesia 30 Ml Oral.Susp) 30 ml PO DAILY PRN PRN Reason: Constipation Senna (Sennosides 8.6 Mg Tablet) 17.2 mg PO BEDTIME PRN PRN Reason: Constipation Sodium Chloride (0.9 % Sodium Chloride Flush 3 Ml Syringe) [address] [facility] Home Medications Medication Instructions Recorded Confirmed Last Taken Type albuterol sulfate 90 mcg/actuation 2 puff inhalation Q6H PRN 07/28/20 05/05/23 Unknown History aerosol inhaler (Ventolin HFA) Shortness Of Breath gabapentin 300 mg capsule 300 mg PO BID 07/28/20 05/05/23 Unknown History lisinopril 40 mg tablet 40 mg PO DAILY 07/28/20 05/05/23 10/25/20 08:00 History simvastatin 20 mg tablet 20 mg PO DAILY 07/28/20 05/05/23 Unknown History amlodipine 5 mg tablet 1 tab PO QAM 10/19/20 05/05/23 05/02/23 10:26 History fluticasone propionate 220 1 puff PO BID 10/19/20 05/05/23 Unknown History mcg/actuation HFA aerosol inhaler (Flovent HFA) metoprolol succinate 25 mg 0.5 tab PO QAM 10/25/20 05/05/23 10/25/20 08:00 History tablet,extended release 24 hr cholecalciferol (vitamin D3) 25 25 mcg PO QAM 10/12/22 05/05/23 Unknown History mcg (1,000 unit) capsule (Vitamin D3) insulin glargine 100 unit/mL (3 60 unit subcut DAILY 10/12/22 05/05/23 Unknown History mL) subcutaneous pen (Lantus Solostar U-100 Insulin) insulin lispro 100 unit/mL 20 unit subcut TID 10/12/22 05/05/23 Unknown History subcutaneous pen lidocaine 5 % topical patch 1 patch topical BID PRN Pain 10/12/22 05/05/23 Unknown History pen needle, diabetic 31 gauge x #1,200 ea 10/12/22 01/10/23 Unknown History 12/12 (UltiCare Pen Needle) pioglitazone 15 mg tablet 15 mg PO QAM 10/12/22 05/05/23 Unknown History prazosin 2 mg capsule 2 mg PO BEDTIME 10/12/22 05/05/23 Unknown History quetiapine 100 mg tablet 150 mg PO BEDTIME 05/05/23 05/05/23 Unknown History quetiapine 25 mg tablet 25 mg PO BID PRN Sleep 05/05/23 05/05/23 Unknown History Physical Exam Vital Signs: Vital Signs: Last Vital Signs Temp 98.8 F 05/05/23 00:26 Pulse 60 05/05/23 00:26 Resp 16 05/05/23 00:26 BP 144/71 H 05/05/23 00:26 Pulse Ox 94 05/05/23 00:26 O2 Del Method Room Air 05/05/23 00:26 BMI result Body Mass Index 31.2 Const: General: cooperative, healthy appearing and no acute distress Orientation/consciousness: patient oriented x3 HEENT: Head: Yes normal to inspection, Yes normocephalic and Yes atraumatic Eyes: Conjunctivae: conjunctivae normal Neck: Neck: Yes normal visual inspection and Yes trachea midline Chest: Chest palpation & inspection: normal inspection of the chest Resp: Effort & Inspection: normal respiratory effort Cardio: Rate: regular rate GI: Inspection: Yes normal to inspection Palpation (GI): Soft to palpation and Tenderness to palpation present (GI) in the LLQ : General: Yes CVA tenderness (mild left ) Back/Spine/Pelvis: Back: CVA tenderness (mild left ) Skin: General skin exam: no rashes or lesions noted Neuro: General: patient oriented x3 Extrem: General: No edema Psych: Appearance: grossly normal Results Results Labs: Short CBC 05/04/23 Range/Units 22:07 WBC 4.8 (4.8-10.8) X10*3/uL Hgb 11.3 L (12.0-16.0) g/dl Hct 32.7 L (37.0-47.0) % Plt Count 105 L (160-400) X10*3/uL BMP 05/04/23 22:07 Sodium 141 Potassium 3.8 Chloride 109 H Carbon Dioxide 23 BUN 12 Creatinine 1.15 Calcium 9.1 Liver Function 05/04/23 Range/Units 22:07 Total Bilirubin 0.3 (0.0-1.0) mg/dL AST 28 (5-31) U/L ALT 35 H (0-31) U/L Alkaline Phosphatase 135 H (39-117) U/L Albumin 3.7 (3.5-5.0) g/dL Urine 05/04/23 Range/Units 22:12 Urine Color Red A Urine Appearance Cloudy Urine pH 5.5 (5.0-9.0) Ur Specific [place] 1.010 (1.005-1.025) Urine Protein 100 (2+) H (Neg-Trace) mg/dL Urine Glucose (UA) Negative (Negative) mg/dL CT scan - pelvis: report reviewed and image reviewed Abdominal ultrasound report/results: report reviewed and image reviewed Additional studies: Date of Service: 05/04/23 EXAMINATION: CT ABDOMEN AND PELVIS WITHOUT CONTRAST CLINICAL INFORMATION: Flank pain COMPARISON: CT abdomen pelvis 02/25/2023 TECHNIQUE: Multidetector volumetric imaging was performed from the superior aspect of the liver through the pubic symphysis. Sagittal and coronal reformatted images were obtained on the technologist's workstation. This CT examination was performed using dose optimization techniques as appropriate, variously including the following: *Automated exposure control *Adjustment of mA and/or kV according to patient size (this includes techniques or standardized protocols for targeted exams where dose is matched to indication/reason for exam; i.e. extremities or head) *Use of iterative reconstruction technique DLP: 722 mGy-cm FINDINGS: LUNG BASES: The visualized lung bases are unremarkable. LIVER, GALLBLADDER, AND BILIARY TREE: The liver is cirrhotic in appearance with a nodular border and is mildly enlarged. No liver masses or bile duct dilatation. Status post cholecystectomy PANCREAS: Unremarkable. SPLEEN: Spleen is enlarged at 14.9 cm. ADRENAL GLANDS: Unremarkable. KIDNEYS AND URETERS: There is a small left pericapsular hematoma. Multiple small stone fragments are present in the distal left ureter, the largest measuring about 4 mm, and this is associated with ureteral dilatation and left-sided pelvocaliectasis. Additional intrarenal calculi are seen the largest measuring 0.7 cm on the left. Calcification near the right renal pelvis may be vascular. BLADDER: Other than above, unremarkable GASTROINTESTINAL TRACT: The small and large bowel are unremarkable. The appendix is unremarkable. ABDOMINAL WALL: No significant hernia is appreciated. LYMPH NODES: No retroperitoneal lymphadenopathy VASCULAR: Unremarkable. PELVIC VISCERA: The uterus and adnexa are unremarkable. OSSEOUS STRUCTURES: Unremarkable. IMPRESSION: 1. Multiple small stone fragments in the distal left ureter with associated ureteral dilatation and left-sided pelvocaliectasis. There is a small left pericapsular hematoma. Although history of ESWL was not provided, these findings could be secondary to that if that was in fact performed 2. Additional intrarenal calculi are seen on the left. 3. Cirrhotic appearing liver with splenomegaly. 4. Other incidental findings as described above. Assessment and Plan (1) Flank pain: Status: Acute (2) Renal stones: Status: Acute (3) Left ureteral stone: Status: Acute Plan Plan: The patient was NPO. Will start diet. IV fluid hydration, pain management. Reevaluate with renal sono tomorrow. Time Spent With Patient Time: Total time managing care of this patient today ____ minutes. Quality Stroke Does the patient have a stroke diagnosis?: No VTE Prior VTE?: No VTE Risk Level:: Surgical - low VTE Device Contraindication: N/A - Device Ordered VTE Drug Contraindication: Treatment Not Indicated Procedures Date of Service Date of Service: 05/05/23
--- NOTE | 2023-05-05 02:40 | PC.NURSE ---
Nursing report given to nurse Pineda. Patient being transferred to room 347 and aware of plan of care.
--- NOTE | 2023-05-05 08:36 | PHA.MEDREC ---
Pharmacy Consult ? Medication Reconciliation Pharmacy has completed the medication reconciliation.Med rec completed by nursing, reviewed with patient and pharmacy claim history.
--- NOTE | 2023-05-05 12:49 | PC.NURSE ---
Pt voiding in BR- pink urine. Urine strained, calculi noted and sent to lab. Medicated once this shift with Dilaudid for pain with good effect
[2023-05-05 15:24] LABS: Anion Gap 13 (12-20); Blood Urea Nitrogen 7 mg/dL (9-16); Calcium 9.3 mg/dL (8.4-10.2); Carbon Dioxide 23 mmol/L (22-29); Chloride 110 mmol/L (96-108); Creatinine Clr Calc Pharmacy 72.3; Estimated Glomerular Filt Rate > 60; Glucose Random 143 mg/dL (60-115); Sodium 142 mmol/L (135-145)
--- NOTE | 2023-05-05 18:11 | PC.NURSE ---
Pt passed one stone this shift, sent to lab for analysis
[2023-05-06 03:33] VITALS: RESP 16
[2023-05-06 03:46] VITALS: BP 141/76; PULSE 77; RESP 18; TEMP 36.5; O2SAT 94
[2023-05-06 06:53] VITALS: BP 152/76; PULSE 54; RESP 17; TEMP 36.1; O2SAT 96
--- NOTE | 2023-05-06 09:31 | MHC.CM.PN ---
Interview conducted w/daughter. Pt lives alone in [facility], has elevator access. Pt's daughter is her [employer] TE[employer] 17.5 hrs per week, and transports Pt where she needs to go (appts., groceries, etc). Pt owns a cane. She has never been to a SNF. D/C plan is return to home via daughter/[employer]AD [employer] transport. CM to follow.
--- NOTE | 2023-05-06 09:48 | PM.UROPN ---
Subjective Subjective Date of Service: 05/06/23 Patient reports: feels better, pain is less and tolerating a regular diet Interval history: 58 year old female with c/os left flank pain and hematuria. S/P Left ESWL on 05/02/23. On review of CT imaging, small pericapsular hematoma not significant, approximatedly 3 left ureteral stones distal ureter largest. The patient passed a stone yesterday which was sent for stone analysis. Patient states she is feeling better this morning. Evaluation with Certified french cord binder. Exam is improved. Plan- D/C home, out patient renal US, PO pain meds prn, push fluids, flomax Physical Exam Vital Signs: Vital Signs: Last Vital Signs Temp 97 F 05/06/23 06:53 Pulse 54 05/06/23 06:53 Resp 17 05/06/23 06:53 BP 152/76 H 05/06/23 06:53 Pulse Ox 96 05/06/23 06:53 O2 Del Method Room Air 05/06/23 06:53 BMI result Body Mass Index 31.4 Const: General: cooperative, healthy appearing and no acute distress Orientation/consciousness: patient oriented x3 HEENT: Head: Yes normal to inspection, Yes normocephalic and Yes atraumatic Eyes: Conjunctivae: conjunctivae normal Neck: Neck: Yes normal visual inspection and Yes trachea midline Chest: Chest palpation & inspection: normal inspection of the chest Resp: Effort & Inspection: normal respiratory effort Cardio: Rate: regular rate GI: Other: left lower quadrant tenderness mild Inspection: Yes normal to inspection Palpation (GI): Soft to palpation Skin: General skin exam: no rashes or lesions noted Neuro: General: patient oriented x3 Extrem: General: No edema Psych: Appearance: grossly normal Urology Results Labs 05/04/23 22:07 05/05/23 14:59 Labs: Laboratory Results - last 24 hr 05/05/23 05/05/23 05/05/23 10:51 14:59 16:17 Sodium 142 Potassium 4.0 Chloride 110 H Carbon Dioxide 23 Anion Gap 13 BUN 7 L Creatinine 0.83 Estim Creat Clear Calc 72.3 Estimated GFR > 60 POC Glucose 169 H 140 H Random Glucose 143 H Calcium 9.3 05/05/23 05/06/23 20:05 06:52 Sodium Potassium Chloride Carbon Dioxide Anion Gap BUN Creatinine Estim Creat Clear Calc Estimated GFR POC Glucose 160 H 174 H Random Glucose Calcium Progress Note: A&P Assessment and plan (1) Left ureteral stone: Status: Acute (2) Flank pain: Status: Acute (3) Renal stones: Status: Acute Assessment and Plan: Plan- D/C home, out patient renal US, PO pain meds prn, push fluids, flomax Time Spent With Patient Time: Total time managing care of this patient today ____ minutes. Progress Note: Quality Stroke Does the patient have a stroke diagnosis?: No
--- NOTE | 2023-05-06 10:12 | MHC.CM.PN ---
order for home, self care. CM acknowledge.
[2023-05-16 19:28] LABS: Stone Source KIDNEY STONE
--- NOTE | 2023-09-10 17:27 | PM.DS ---
DS: Providers Provider Date of Service: 05/06/23 Date of admission: 05/05/23 01:28 Date of discharge: 05/06/23 Primary care physician: Wanda Bonilla NP Admitting clinician: Vianey Miller Attending physician on admission: Vianey Miller Attending physician on discharge: Vianey Miller Discharging clinician: Vianey Miller DS: Diagnosis Discharge Diagnosis (1) Left ureteral stone: Status: Resolved (2) Flank pain: Status: Acute (3) Renal stones: Status: Acute DS: Summary Hospital Course Hospital Course: 58 year old female with c/o's left flank pain and hematuria. S/P Left ESWL on 05/02/23. On review of CT imaging, 3 left distal ureteral stones, also small pericapsular hematoma not felt to be clinically significant. The patient passed a one stone during admission, which was sent for stone analysis. The Patient had improvement in pain. Plan- D/C home, out patient renal US, PO pain meds prn, push PO fluids, flomax Status at Discharge Cognitive/behavioral status at discharge: Within normal limits Functional status at discharge: independent ambulation Overall status at discharge: patient is back to baseline Time Attestation Discharge coordination time: Greater than 30 minutes Quality: Safe Use of Opioids Does Pt have an Active Cancer Diagnosis on the Problem List?: No Quality: Stroke Does the patient have a stroke diagnosis?: No Physical Exam Vital Signs: Vital Signs: Last Vital Signs Temp 97 F 05/06/23 06:53 Pulse 54 05/06/23 06:53 Resp 17 05/06/23 06:53 BP 152/76 H 05/06/23 06:53 Pulse Ox 96 05/06/23 06:53 O2 Del Method Room Air 05/06/23 06:53 BMI result Body Mass Index 31.4 Discharge Plan Discharge Patient Disposition: Home, Self-Care Discharge Diagnosis: Left Nephrolithiasis, left ureteral stones Referrals: Wanda Bonilla NP [Primary Care Provider] - 1 Week Discharge Medications: New hydromorphone [Dilaudid] 2 mg tablet 2 mg PO Q4-6H PRN (Reason: pain) Qty: 10 0RF Rx Instructions: Partial Fill upon patient request. Continued amlodipine 5 mg tablet 1 tab PO QAM fluticasone propionate [Flovent HFA] 220 mcg/actuation HFA aerosol inhaler 1 puff PO BID metoprolol succinate 25 mg tablet extended release 24 hr 0.5 tab PO QAM quetiapine 25 mg tablet 25 mg PO BID PRN (Reason: Sleep) quetiapine 100 mg Tablet 150 mg PO BEDTIME albuterol sulfate [Ventolin HFA] 90 mcg/actuation HFA aerosol inhaler 2 puff inhalation Q6H PRN (Reason: Shortness Of Breath) gabapentin 300 mg capsule 300 mg PO BID simvastatin 20 mg tablet 20 mg PO DAILY lisinopril 40 mg tablet 40 mg PO DAILY esomeprazole magnesium 20 mg capsule,delayed release(DR/EC) 20 mg PO BID 30 Days Qty: 60 3RF insulin glargine [Lantus Solostar U-100 Insulin] 100 unit/mL (3 mL) insulin pen 60 unit subcut DAILY (DME) pen needle, diabetic [UltiCare Pen Needle] 31 gauge x 5/16 needle See Rx Instructions .ROUTE QID Qty: 1200 Rx Instructions: As directed insulin lispro 100 unit/mL insulin pen 20 unit subcut TID prazosin 2 mg capsule 2 mg PO BEDTIME lidocaine 5 % adhesive patch,medicated 1 patch topical BID PRN (Reason: Pain) pioglitazone 15 mg tablet 15 mg PO QAM cholecalciferol (vitamin D3) [Vitamin D3] 25 mcg (1,000 unit) capsule 25 mcg PO QAM pyridoxine (vitamin B6) 100 mg tablet 100 mg PO DAILY Qty: 90 3RF Held ibuprofen 600 mg tablet 600 mg PO TID PRN (Reason: pain) Qty: 14 0RF Hold Instructions: Resume on 06/09/23. No Action tamsulosin [Flomax] 0.4 mg capsule 0.4 mg PO DAILY Qty: 14 0RF ketorolac 10 mg tablet 10 mg PO TID PRN (Reason: pain) 5 Days Qty: 15 0RF doxycycline hyclate 100 mg capsule 100 mg PO BID Qty: 14 0RF albuterol sulfate 2.5 mg /3 mL (0.083 %) solution for nebulization 2.5 mg inhalation Q4-6H PRN Discharge Orders: Discharge Order (Routine); Ordered 05/06/23 Ordered By: Vianey Miller Diet: Advance to usual diet Activity on Discharge: No heavy lifting Stand Alone Forms: Patient Portal Discharge page Care Plan Goals: Follow up renal US as outpatient Health Concerns: No heavy lifting over 25 pounds for 2 weeks, drink 32 - 48 ounces water daily, low sodium diet, monitor finger sticks Plan of Treatment: Out patient follow up with Urology, Dr. Antoine Flores Assessment: Left lower pole renal stone, left ureteral stones Discharge Date/Time: 05/06/23 12:39
== END 2023-05-06 12:39 | disposition home or self-care (01) ==
LOC: HO.ED 05-05 01:27 → HO.EDOVER 05-05 01:43 → HO.S3 05-05 02:28
PROVIDERS: Admitting Provider Urology; Emergency Provider Student in an Organized Health Care Education/Training Program; PCP Nurse Practitioner Primary Care; Visit Provider Urology
DX: N20.2 Calculus of kidney with calculus of ureter (principal); S37.019A Minor contusion of unspecified kidney, initial encounter; X58.XXXA Exposure to other specified factors, initial encounter; Y93.9 Activity, unspecified; Y92.9 Unspecified place or not applicable; R10.9 Unspecified abdominal pain; Z98.890 Other specified postprocedural states; R31.9 Hematuria, unspecified; Z79.899 Other long term (current) drug therapy
CPT/HCPCS: 36415; 74176; 80048; 80053; 81001; 82365; 82947; 85025; 87086; 88300; 94640; 96361; 96374; 96375; 96376; 99221; 99285; J1170; J1885

== ENCOUNTER → 2023-05-05 01:28 | Outpatient (BNV) | payer MEDICAID, SELFPAY | PROVIDERS: Admitting Provider Urology; Emergency Provider Student in an Organized Health Care Education/Training Program; PCP Nurse Practitioner Primary Care; Visit Provider Urology | DX: N20.1 Calculus of ureter (principal); R10.9 Unspecified abdominal pain; N20.0 Calculus of kidney | CPT/HCPCS: 99024 ==

== ENCOUNTER 2023-05-16 18:08 | Outpatient (REF) | payer MEDICAID, SELFPAY | END 2023-05-16 18:09 | disposition home or self-care (01) | LOC: HO.HHCLNP 18:08 | PROVIDERS: Visit Provider Internal Medicine | DX: R30.0 Dysuria (principal) | CPT/HCPCS: 87086 ==

== ENCOUNTER 2023-06-22 09:55 | Outpatient (REF) | payer MEDICAID, SELFPAY | END 2023-06-22 09:56 | disposition home or self-care (01) | LOC: HO.US 09:55 | PROVIDERS: PCP Nurse Practitioner Primary Care; Visit Provider Urology | DX: Z13.89 Encounter for screening for other disorder (principal) ==

== ENCOUNTER 2023-06-27 10:27 | Emergency (ER) | payer MEDICAID, SELFPAY ==
--- NOTE | ~2023-06-27 | US_ITS ---
EXAMINATION: US RETROPERITONEAL LIMITED (RENAL ONLY) CLINICAL INFORMATION: Bilateral flank pain. COMPARISON: Baseline CT scan 05/04/2023. TECHNIQUE: Standard bilateral renal ultrasound FINDINGS: RIGHT KIDNEY: 9.6 x 4.8 x 5.4 cm (SAG x AP x TRV). The kidney is normal in size, contour, and echogenicity. Renal cortical thickness is normal. No calculi or focal parenchymal lesions. No hydronephrosis. Vascular calcifications noted. LEFT KIDNEY: 10.7 x 4.8 x 5.5 cm (SAG x AP x TRV). The kidney is normal in size, contour, and echogenicity. Renal cortical thickness is normal. Previous noted perinephric collection has resolved. Low pole stone measures up to 5 mm. US/US renal BI IMPRESSION: Resolved left-sided perinephric collection. Nonobstructing left-sided renal calculus.
[2023-06-27 10:41] VITALS: BP 134/88; PULSE 73; RESP 19; TEMP 36.6; O2SAT 98; BMI 29.7
[2023-06-27 11:52] LABS: MANUAL DIFF FLAG NO
[2023-06-27 11:53] LABS: Appearance Urine Cloudy; Color Urine Yellow; Glucose Urine UA Negative (Negative); Leukocyte Esterase Urine Trace (Negative); Nitrite Urine Negative (Negative); UMIC TRIGGER UACC YES; Urine Blood Negative (Negative); Urine Ketones Negative (Negative); Urine Protein 30 (1+) mg/dL (Neg-Trace)
[2023-06-27 11:55] LABS: Basophils Percent Auto 0.5 % (0-2); Eosinophils Absolute Auto 0.1 X10*3/uL (0.0-0.4); Eosinophils Percent Auto 2.4 % (0-4); Hematocrit 34.9 % (37.0-47.0); Hemoglobin 11.8 g/dl (12.0-16.0); Imm Gran Abs Auto 0.01 X10*3/uL (0.00-0.03); Imm Gran Pct Auto 0.2 % (0.0-0.4); Lymphocytes Absolute Auto 1.4 X10*3/uL (1.2-4.9); Lymphocytes Percent Auto 33.7 % (20-40); Mean Corpuscular HGB Conc 33.8 g/dl (31.0-35.0); Mean Corpuscular Hemoglobin 28.7 pg (27.0-33.0); Mean Corpuscular Volume 84.9 fL (80.0-98.0); Mean Platelet Volume 9.8 fL (9.4-12.3); Monocytes Absolute Auto 0.4 X10*3/uL (0.1-1.2); Monocytes Percent Auto 9.4 % (2-11); Neutrophils Absolute Auto 2.3 x10*3/uL (2.0-8.3); Neutrophils Percent Auto 53.8 % (45-73); Platelet Count 121 X10*3/uL (160-400); Red Blood Count 4.11 X10*6/uL (4.20-5.50); Red Cell Distribution Width 12.5 % (11.0-16.0); White Blood Count 4.2 X10*3/uL (4.8-10.8)
[2023-06-27 12:03] LABS: Bacteria Urine None Seen (None Seen); Hyaline Casts Urine 0-2 /LPF (0-2); WBC Urine 0-5 /HPF (0-5)
[2023-06-27 12:09] LABS: Alanine Aminotransferase 47 U/L (0-31); Albumin Level 3.8 g/dL (3.5-5.0); Alkaline Phosphatase 132 U/L (39-117); Anion Gap 8 (12-20); Aspartate Amino Transferase 40 U/L (5-31); Bilirubin Direct 0.1 mg/dL (0.0-0.5); Bilirubin Total 0.4 mg/dL (0.0-1.0); Blood Urea Nitrogen 12 mg/dL (9-16); Calcium 9.2 mg/dL (8.4-10.2); Carbon Dioxide 26 mmol/L (22-29); Chloride 109 mmol/L (96-108); Creatinine Clr Calc Pharmacy 59.6; Estimated Glomerular Filt Rate 58; Glucose Random 189 mg/dL (60-115); Lipase 29 U/L (8-78); Potassium 3.8 mmol/L (3.3-5.1); Sodium 139 mmol/L (135-145); Total Protein 7.3 g/dL (6.5-8.0)
--- NOTE | 2023-06-27 17:50 | ED.FEMALEGU ---
HPI - Female Genitourinary General Chief complaint: Urogenital-Female Stated complaint: Back pain - kidney stones (?) Time Seen by Provider: 06/27/23 17:49 Source: patient, RN notes reviewed and old records reviewed Mode of arrival: ambulatory History of Present Illness HPI Narrative: 58-year-old female with a past medical history of asthma, HLD, HTN, diabetes, GERD, hepatitis-C, renal stones s/p left ESWL on 05/02/23, w/hospital admission on 05/05 for continued flank pain s/p procedure presenting to the ED today complaining of right flank pain radiating to suprapubic region x3-5 days. Admits has had pain for years however worsened over the past few days. Denies fever, chills, nausea, vomiting, dysuria/hematuria, difficulty or inability to urinate Related Data Home Medications Medication Instructions Recorded Confirmed albuterol sulfate 90 mcg/actuation 2 puff inhalation Q6H PRN 07/28/20 05/05/23 aerosol inhaler (Ventolin HFA) Shortness Of Breath gabapentin 300 mg capsule 300 mg PO BID 07/28/20 05/05/23 lisinopril 40 mg tablet 40 mg PO DAILY 07/28/20 05/05/23 simvastatin 20 mg tablet 20 mg PO DAILY 07/28/20 05/05/23 amlodipine 5 mg tablet 1 tab PO QAM 10/19/20 05/05/23 fluticasone propionate 220 1 puff PO BID 10/19/20 05/05/23 mcg/actuation HFA aerosol inhaler (Flovent HFA) metoprolol succinate 25 mg 0.5 tab PO QAM 10/25/20 05/05/23 tablet,extended release 24 hr cholecalciferol (vitamin D3) 25 25 mcg PO QAM 10/12/22 05/05/23 mcg (1,000 unit) capsule (Vitamin D3) insulin glargine 100 unit/mL (3 60 unit subcut DAILY 10/12/22 05/05/23 mL) subcutaneous pen (Lantus Solostar U-100 Insulin) insulin lispro 100 unit/mL 20 unit subcut TID 10/12/22 05/05/23 subcutaneous pen lidocaine 5 % topical patch 1 patch topical BID PRN Pain 10/12/22 05/05/23 pen needle, diabetic 31 gauge x #1,200 ea 10/12/22 01/10/2316 (UltiCare Pen Needle) pioglitazone 15 mg tablet 15 mg PO QAM 10/12/22 05/05/23 prazosin 2 mg capsule 2 mg PO BEDTIME 10/12/22 05/05/23 quetiapine 100 mg tablet 150 mg PO BEDTIME 05/05/23 05/05/23 quetiapine 25 mg tablet 25 mg PO BID PRN Sleep 05/05/23 05/05/23 Previous Rx's Medication Instructions Recorded ibuprofen 600 mg tablet 600 mg PO TID PRN pain #14 tabs 10/03/20 pyridoxine (vitamin B6) 100 mg 100 mg PO DAILY #90 tabs 10/12/22 tablet esomeprazole magnesium 20 mg 20 mg PO BID 30 days #60 caps 10/26/22 capsule,delayed release hydromorphone 2 mg tablet 2 mg PO Q4-6H PRN pain #10 tabs 05/06/23 (Dilaudid) tamsulosin 0.4 mg capsule (Flomax) 0.4 mg PO DAILY #10 caps 05/06/23 ketorolac 10 mg tablet 10 mg PO TID PRN pain 5 days #15 06/27/23 tabs tamsulosin 0.4 mg capsule (Flomax) 0.4 mg PO DAILY #14 caps 06/27/23 Allergies Allergy/AdvReac Type Severity Reaction Status Date / Time No Known Allergies Allergy Mild NOT Verified 06/27/23 10:41 APPLICABLE Review of Systems Review of Systems: Constitutional: No Fever, No Chills, No Fatigue, No Malaise ENT/Mouth: No Ear Pain, No Nasal Congestion, No sore throat, No Rhinorrhea, No Swallowing Difficulty Eyes: No Eye Pain, No Swelling, No Redness, No Vision Changes Cardiovascular: No Chest Pain, No SOB, No Edema, No Palpitations Respiratory: No Cough, No Sputum, No Dyspnea Gastrointestinal: No Nausea, No Vomiting, No Diarrhea, No Constipation, + Abdominal pain Genitourinary: No irregular bleeding, No Dysuria, No Urinary Frequency, No Hematuria, No Urinary Incontinence/retention, No Urgency, + Flank Pain Musculoskeletal: No joint pain, No Myalgias, No Joint Swelling Skin: No Skin Lesions, No rash Neuro: No Weakness, No Numbness, No Dizziness, No Headache Yes all other systems are reviewed and are negative Constitutional: Constitutional: Reports as per [facility] Past Medical History Attestation statement: The following information was validated with the patient. 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 Mother Diabetes mellitus Sister Diabetes mellitus Brother No problems noted. Paternal Uncle Colon cancer Social History Social History Household Members: None Housing: Apartment Do you presently have visiting nurse or other home services: No Alcohol intake: current Alcohol intake frequency: a few times a month Alcohol type: beer Patient Tobacco Use Status: Current someday Tobacco user Tobacco use type: Cigarette Cigarettes Per Day: 3 Years Smoked: 15 Advance Directives: No service: No Physical Exam Vital Signs: Vital Signs: Last Vital Signs Temp 97.9 F 06/27/23 20:00 Pulse 66 06/27/23 20:00 Resp 16 06/27/23 20:00 BP 148/77 H 06/27/23 20:00 Pulse Ox 96 06/27/23 20:00 O2 Del Method Room Air 06/27/23 20:00 BMI result Body Mass Index 29.7 Const: General: cooperative, healthy appearing and no acute distress Orientation/consciousness: patient oriented x3 Limitations: no limitations HEENT: Head: Yes normal to inspection and Yes atraumatic Ears: hearing grossly normal bilaterally General nose exam: Normal external nose present Face and sinus: Yes normal facial exam Eyes: General: appearance normal, both eyes and all related structures EOM: EOMs intact bilaterally Neck: Neck: Yes normal visual inspection and Yes no meningeal signs Resp: Effort & Inspection: normal respiratory effort and no respiratory distress Auscultation: clear to auscultation bilaterally Cardio: Rate: regular rate Heart sounds: S1 normal heart sound present and S2 normal heart sound present GI: Inspection: Yes normal to inspection Palpation (GI): Soft to palpation, nontender, no guarding and not rigid : General: Yes no CVA tenderness Back/Spine/Pelvis: Back: no CVA tenderness Skin: Rashes: no rashes Wounds: no wounds Neuro: General: patient oriented x3, tone normal and no meningeal signs Cranial nerves: Yes CN's II-XII intact bilaterally Gait exam (Neuro): Normal gait present Extrem: General: Yes normal to inspection Course Course Course Narrative: 1840--chronically leukopenic. H&H at patient's baseline. AST/ALT and alk loss chronically elevated -UA with RBCs, contaminated, not infected US renal BI IMPRESSION: Resolved left-sided perinephric collection. Nonobstructing left-sided renal calculus. --on re-evaluation patient reports symptomatic improvement. Stressed importance of close Urology follow-up. Will discharge home with Toradol and Flomax. Encourage p.o. liquid intake Medications Administered Discontinued Medications Generic Name Dose Route Start Last Admin Trade Name Freq PRN Reason Stop Dose Admin Sodium Chloride 1,000 mls @ 999 mls/hr 06/27/23 18:30 06/27/23 20:13 Ns IV 06/27/23 19:30 Infused .Q1H1M ELISE Infusion Ketorolac Tromethamine 15 mg 06/27/23 18:27 06/27/23 18:55 Ketorolac Tromethamine 15 Mg/Ml Vial IVPUSH 06/27/23 18:28 15 mg ONCE ONE Administration Tamsulosin HCl 0.4 mg 06/27/23 18:32 06/27/23 18:55 Tamsulosin Hcl 0.4 Mg Capsule PO 06/27/23 18:33 0.4 mg ONCE ONE Administration Medical Decision Making Medical Decision Making [facility] Narrative: 58-year-old female with a past medical history of asthma, HLD, HTN, diabetes, GERD, hepatitis-C, renal stones s/p left ESWL on 05/02/23, w/hospital admission on 05/05 for continued flank pain s/p procedure presenting to the ED today complaining of right flank pain radiating to suprapubic region x3-5 days. On exam vital signs stable, NAD, nontoxic appearing, abdomen soft/nontender, no CVAT. Concern for renal colic/stone vs UTI or pyelo. Lower suspicion for appendicitis/diverticulitis or cholecystitis/lithiasis Plan: Labs, UA, renal ultrasound, IVF, pain management Please refer to course for remaining clinical decision making, interpretation of labs/imaging results, and discussions with consultants and/or family members. Differential Diagnosis Differential Diagnoses: The differential diagnosis associated with the presentation includes As above Admission/Observation Consideration of admission/observation: Escalation of care including admission/observation considered Lab Data MDM Lab Attestation statement: I reviewed the patient's lab results. 06/27/23 11:46 06/27/23 11:46 Labs: Lab Results 06/27/23 Range/Units 11:46 WBC 4.2 L (4.8-10.8) X10*3/uL RBC 4.11 L (4.20-5.50) X10*6/uL Hgb 11.8 L (12.0-16.0) g/dl Hct 34.9 L (37.0-47.0) % MCV 84.9 (80.0-98.0) fL MCH 28.7 (27.0-33.0) pg MCHC 33.8 (31.0-35.0) g/dl RDW 12.5 (11.0-16.0) % Plt Count 121 L (160-400) X10*3/uL MPV 9.8 (9.4-12.3) fL Immature Gran % (Auto) 0.2 (0.0-0.4) % Neut % (Auto) 53.8 (45-73) % Lymph % (Auto) 33.7 (20-40) % Edmunds % (Auto) 9.4 (2-11) % Eos % (Auto) 2.4 (0-4) % Baso % (Auto) 0.5 (0-2) % Lymph # (Auto) 1.4 (1.2-4.9) X10*3/uL Edmunds # (Auto) 0.4 (0.1-1.2) X10*3/uL Eos # (Auto) 0.1 (0.0-0.4) X10*3/uL Baso # (Auto) 0.0 (0.0-0.2) X10*3/uL Abs Immat Gran (auto) 0.01 (0.00-0.03) X10*3/uL Absolute Neuts (auto) 2.3 (2.0-8.3) x10*3/uL Absolute Nucleated RBC 0.000 (0.0-0.012) X10*3/uL Nucleated RBC % (auto) 0.0 (0.0-0.2) /100WBC Sodium 139 (135-145) mmol/L Potassium 3.8 (3.3-5.1) mmol/L Chloride 109 H (96-108) mmol/L Carbon Dioxide 26 (22-29) mmol/L Anion Gap 8 L (12-20) BUN 12 (9-16) mg/dL Creatinine 0.98 (0.5-1.4) mg/dL Estim Creat Clear Calc 59.6 Estimated GFR 58 Random Glucose 189 H (60-115) mg/dL Calcium 9.2 (8.4-10.2) mg/dL Total Bilirubin 0.4 (0.0-1.0) mg/dL Direct Bilirubin 0.1 (0.0-0.5) mg/dL AST 40 H (5-31) U/L ALT 47 H (0-31) U/L Alkaline Phosphatase 132 H (39-117) U/L Total Protein 7.3 (6.5-8.0) g/dL Albumin 3.8 (3.5-5.0) g/dL Lipase 29 (8-78) U/L Urine Color Yellow Urine Appearance Cloudy Urine pH 6.0 (5.0-9.0) Ur Specific [place] 1.020 (1.005-1.025) Urine Protein 30 (1+) H (Neg-Trace) mg/dL Urine Glucose (UA) Negative (Negative) mg/dL Urine Ketones Negative (Negative) mg/dL Urine Blood Negative (Negative) Urine Nitrite Negative (Negative) Ur Leukocyte Esterase Trace H (Negative) Urine RBC 3-5 H (0-2) /HPF Urine WBC 0-5 (0-5) /HPF Ur Squamous Epith Cells 6-10 (0-2) /HPF Urine Bacteria None Seen (None Seen) Hyaline Casts 0-2 (0-2) /LPF Radiology Impression Discussion of test interpretation with radiology: I have reviewed the radiologist's reading. External Record Review External record reviewed: Inpatient record, Office record, Outpatient record, Prior outpatient labs, Prior outpatient radiology, Primary care record and Outside ED record Tests considered The following testing was considered but not selected: As above Prescription Management I considered prescription management with: Pain Medication Chronic Conditions Patient?s care impacted by: Other (Renal stones, cirrhosis) Discharge Plan Discharge Clinical Impression: Renal calculi Patient Disposition: Home, Self-Care Instructions: Kidney Stones (ED) Additional Instructions: Your blood work is reassuring. Your ultrasound shows improvement of your left-sided kidney collection. You do have some nonobstructing stones inside her left kidney Flomax to help dilate the ureter to aid with passage of the stones Please drink lots of fluids Toradol as an anti-inflammatory/pain medication, take with food YOU NEED TO FOLLOW-UP WITH THE UROLOGIST. CALL TOMORROW TO MAKE AN APPOINTMENT If symptoms persist or worsen, your unable to urinate, persistent nausea/vomiting return to the emergency department Tu an?lisis de maury es tranquilizador. Hernadez ultrasonido muestra sasha mejora de hernadez colecci?n de ri??n del lado fernanda. Tienes algunos c?lculos que no obstruyen dentro de hernadez ri??n fernanda. Flomax para ayudar a dilatar el ur?ter y facilitar el paso de los c?lculos. Por favor dannie muchos l?quidos. Toradol chris analg?sico/antiinflamatorio, fabiola con alimentos NECESITAS SEGUIMIENTO CON EL UR?LOGO. LLAMA MA?LINDA PARA PEDIR BUCK Si los s?ntomas persisten o empeoran, no puede orinar, n?useas/v?mitos persistentes, regrese al departamento de emergencias. Prescriptions: New tamsulosin [Flomax] 0.4 mg capsule 0.4 mg PO DAILY Qty: 14 0RF ketorolac 10 mg tablet 10 mg PO TID PRN (Reason: pain) 5 Days Qty: 15 0RF No Action ibuprofen 600 mg tablet 600 mg PO TID PRN (Reason: pain) Qty: 14 0RF Hold Instructions: Resume on 06/09/23. amlodipine 5 mg tablet 1 tab PO QAM fluticasone propionate [Flovent HFA] 220 mcg/actuation HFA aerosol inhaler 1 puff PO BID metoprolol succinate 25 mg tablet extended release 24 hr 0.5 tab PO QAM quetiapine 25 mg tablet 25 mg PO BID PRN (Reason: Sleep) quetiapine 100 mg Tablet 150 mg PO BEDTIME hydromorphone [Dilaudid] 2 mg tablet 2 mg PO Q4-6H PRN (Reason: pain) Qty: 10 0RF Rx Instructions: Partial Fill upon patient request. tamsulosin [Flomax] 0.4 mg capsule 0.4 mg PO DAILY Qty: 10 0RF Rx Instructions: take daily at 6 pm albuterol sulfate [Ventolin HFA] 90 mcg/actuation HFA aerosol inhaler 2 puff inhalation Q6H PRN (Reason: Shortness Of Breath) gabapentin 300 mg capsule 300 mg PO BID simvastatin 20 mg tablet 20 mg PO DAILY lisinopril 40 mg tablet 40 mg PO DAILY esomeprazole magnesium 20 mg capsule,delayed release(DR/EC) 20 mg PO BID 30 Days Qty: 60 3RF insulin glargine [Lantus Solostar U-100 Insulin] 100 unit/mL (3 mL) insulin pen 60 unit subcut DAILY (DME) pen needle, diabetic [UltiCare Pen Needle] 31 gauge x 5/16 needle See Rx Instructions .ROUTE QID Qty: 1200 Rx Instructions: As directed insulin lispro 100 unit/mL insulin pen 20 unit subcut TID prazosin 2 mg capsule 2 mg PO BEDTIME lidocaine 5 % adhesive patch,medicated 1 patch topical BID PRN (Reason: Pain) pioglitazone 15 mg tablet 15 mg PO QAM cholecalciferol (vitamin D3) [Vitamin D3] 25 mcg (1,000 unit) capsule 25 mcg PO QAM pyridoxine (vitamin B6) 100 mg tablet 100 mg PO DAILY Qty: 90 3RF [place] [facility] [place] [facility] - 3 days Print Language: Singaporean
[2023-06-27] MEDS: Ketorolac Tromethamine 15 MG/ML VIAL IVPUSH (18:55)
[2023-06-27] MEDS: Tamsulosin HCL 0.4 MG CAPSULE PO (18:55)
[2023-06-27] MEDS: 0.9 % Sodium Chloride 1,000 ML 999 ML IV (18:55)
[2023-06-27 20:00] VITALS: BP 148/77; PULSE 66; RESP 16; TEMP 36.6; O2SAT 96
== END 2023-06-27 21:20 | disposition home or self-care (01) ==
PROVIDERS: Emergency Provider Emergency Medicine; PCP Nurse Practitioner Primary Care
DX: N20.0 Calculus of kidney (principal); R10.9 Unspecified abdominal pain; F17.210 Nicotine dependence, cigarettes, uncomplicated; Z71.6 Tobacco abuse counseling; Z79.899 Other long term (current) drug therapy
CPT/HCPCS: 36415; 76775; 80048; 80076; 81001; 83690; 85025; 96361; 96374; 99284; J1885

== ENCOUNTER 2023-07-05 11:16 | Outpatient (REF) | payer MEDICAID, SELFPAY | END 2023-07-05 11:17 | disposition home or self-care (01) | LOC: HO.HMGCX 11:16 | PROVIDERS: PCP Nurse Practitioner Primary Care; Visit Provider Urology | DX: Z13.89 Encounter for screening for other disorder (principal) ==

== ENCOUNTER 2023-07-10 11:28 | Outpatient (REF) | payer MEDICAID, SELFPAY ==
--- NOTE | ~2023-07-10 | US_ITS ---
EXAMINATION: US PELVIS LIMITED (BLADDER) CLINICAL INFORMATION: Calculus of ureter status post left ESWL on May 02, 2023. CT abdomen and pelvis showed a small left pericapsular hematoma not clinically significant, left ureteral stones, [address]; patient has passed some stones, follow-up imaging. COMPARISON: None available. TECHNIQUE: Real-time imaging of the bladder. FINDINGS: BLADDER: Well distended. Bilateral ureteral jets are demonstrated. Prevoid bladder volume is 329 mL. Postvoid bladder volume is 83 mL. No gross bladder calculi are appreciated. Limited visualization due to bowel gas. US/US bladder IMPRESSION: 1. Postvoid bladder volume is 83 mL. 2. No gross bladder calculi are appreciated. Limited visualization due to bowel gas. This study was presented today July 10, 2023 at 1:00 PM for interpretation. Stat results provided at this time as requested by referring provider.
== END 2023-07-10 11:29 | disposition home or self-care (01) ==
LOC: HO.US 11:28
PROVIDERS: PCP Nurse Practitioner Primary Care; Visit Provider Urology
DX: N20.1 Calculus of ureter (principal); N20.0 Calculus of kidney
CPT/HCPCS: 76857

== ENCOUNTER 2023-07-13 11:30 | Outpatient (AMB) | payer MEDICAID, SELFPAY ==
--- NOTE | 2023-07-13 11:30 | A.OFFVIS_ITS ---
Intake Intake Visit Reasons: follow up/ US Intake Note: Patient is present via telephone for US Results: Urology Medications: Prazosin, Flomax & Vitamin B6 Allergies to Antibiotic: No Known Allergies Blood Thinner: None Cycle Touring Guide Required: Yes Accompanied by: Self / Same As Patient Allergies No Known Allergies Allergy (Mild, Verified 07/13/23 11:32) NOT APPLICABLE HPI HPI Comments History of Present Illness Details Tank is a 58-year-old female patient who presents to the clinic for follow-up of kidney stones. 07/13/23--Telehealth visit - I have revi ewed renal and bladder US results, she was passing left kidney stone fragments, discussed left hydronephrosis is resolved, and fragments passed. 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 Review of chart: s/p Left ESWL on 05/02/23 Results: Abdomen USG results reviewed--08/29/2022- Suggestive of nonobstructive left renal calculi and nonobstructive renal calculi largest measuring 0.3 cm. CAT scan results reviewed--01/12/2022- Showed left lower pole stone 1 cm and bilateral punctuate stones. Evaluation today: Urine blood-0 Chris/uL, Leukocyte Esterase-0 Cailin/uL Plan: 24-hour urine collection. 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 Mother Diabetes mellitus Sister Diabetes mellitus Brother No problems noted. Paternal Uncle Colon cancer Social History Household Members: None Housing: Apartment Do you presently have visiting nurse or other home services: No Alcohol intake: current Alcohol intake frequency: a few times a month Alcohol type: beer Patient Tobacco Use Status: Current someday Tobacco user Tobacco use type: Cigarette Cigarettes Per Day: 3 Years Smoked: 15 service: No Review of Systems Const All systems reviewed & are unremarkable except as noted in HPI and below Reports no additional complaints Eyes Reports no additional complaints ENT Reports no additional complaints Card Denies dyspnea Resp Denies cough and Denies dyspnea GI Reports no additional complaints Reports no additional complaints Musc Reports no additional complaints Skin/Breast Denies rash and Denies unusual bruising Neuro Reports no additional complaints Psych Reports no additional complaints Endo Reports no additional complaints Ayden/Lymph Reports no additional complaints Aller/Immun Reports no additional complaints Results Reviewed Results Reviewed: Date of Service: 05/04/23 EXAMINATION: CT ABDOMEN AND PELVIS WITHOUT CONTRAST CLINICAL INFORMATION: Flank pain COMPARISON: CT abdomen pelvis 02/25/2023 FINDINGS: LUNG BASES: The visualized lung bases are unremarkable. LIVER, GALLBLADDER, AND BILIARY TREE: The liver is cirrhotic in appearance with a nodular border and is mildly enlarged. No liver masses or bile duct dilatation. Status post cholecystectomy PANCREAS: Unremarkable. SPLEEN: Spleen is enlarged at 14.9 cm. ADRENAL GLANDS: Unremarkable. KIDNEYS AND URETERS: There is a small left pericapsular hematoma. Multiple small stone fragments are present in the distal left ureter, the largest measuring about 4 mm, and this is associated with ureteral dilatation and left-sided pelvocaliectasis. Additional intrarenal calculi are seen the largest measuring 0.7 cm on the left. Calcification near the right renal pelvis may be vascular. BLADDER: Other than above, unremarkable GASTROINTESTINAL TRACT: The small and large bowel are unremarkable. The appendix is unremarkable. ABDOMINAL WALL: No significant hernia is appreciated. LYMPH NODES: No retroperitoneal lymphadenopathy VASCULAR: Unremarkable. PELVIC VISCERA: The uterus and adnexa are unremarkable. OSSEOUS STRUCTURES: Unremarkable. IMPRESSION: 1. Multiple small stone fragments in the distal left ureter with associated ureteral dilatation and left-sided pelvocaliectasis. There is a small left pericapsular hematoma. Although history of ESWL was not provided, these findings could be secondary to that if that was in fact performed 2. Additional intrarenal calculi are seen on the left. EXAMINATION: US RETROPERITONEAL LIMITED (RENAL ONLY) CLINICAL INFORMATION: Bilateral flank pain. COMPARISON: Baseline CT scan 05/04/2023. TECHNIQUE: Standard bilateral renal ultrasound FINDINGS: RIGHT KIDNEY: 9.6 x 4.8 x 5.4 cm (SAG x AP x TRV). The kidney is normal in size, contour, and echogenicity. Renal cortical thickness is normal. No calculi or focal parenchymal lesions. No hydronephrosis. Vascular calcifications noted. LEFT KIDNEY: 10.7 x 4.8 x 5.5 cm (SAG x AP x TRV). The kidney is normal in size, contour, and echogenicity. Renal cortical thickness is normal. Previous noted perinephric collection has resolved. Low pole stone measures up to 5 mm. IMPRESSION: Resolved left-sided perinephric collection. Nonobstructing left-sided renal calculus. Date of Service: 07/10/23 EXAMINATION: US PELVIS LIMITED (BLADDER) CLINICAL INFORMATION: Calculus of ureter status post left ESWL on May 02, 2023. CT abdomen and pelvis showed a small left pericapsular hematoma not clinically significant, left ureteral stones, [address]; patient has passed some stones, follow-up imaging. COMPARISON: None available. TECHNIQUE: Real-time imaging of the bladder. FINDINGS: BLADDER: Well distended. Bilateral ureteral jets are demonstrated. Prevoid bladder volume is 329 mL. Postvoid bladder volume is 83 mL. No gross bladder calculi are appreciated. Limited visualization due to bowel gas. IMPRESSION: 1. Postvoid bladder volume is 83 mL. 2. No gross bladder calculi are appreciated. Limited visualization due to bowel gas. Assessment & Plan Assessment & Plan (1) Kidney stone on left side: Code(s): N20.0 - Calculus of kidney (2) Left ureteral stone: Code(s): N20.1 - Calculus of ureter (3) Hydronephrosis: Code(s): N13.30 - Unspecified hydronephrosis Plan 24-hour urine collection. Patient Instructions: The patient had an opportunity to ask questions regarding treatment plan. All questions were answered. Imaging, Laboratory studies and physical exam results were discussed and reviewed in detail. No major barriers to understanding were identified. The patient expressed understanding and agreement with the above treatment plan. The patient is aware they should contact our office by phone for worsening of their current condition or the appearance of new symptoms. Compliance is encouraged with any medications and followup testing that is ordered. It is a privilege to be allowed the opportunity to participate in the urologic care of your patient. If you have any questions or concerns regarding treatment for the above conditions please do not hesitate to contact me. The office telephone contact is [phone]. This note is constructed in part using voice recognition software. While every effort has been made to ensure accuracy buttonhole facer errors may have been included. Yours sincerely, Vianey Miller MD Telehealth Telehealth Location of provider rendering services: practice address Location of patient: address on file Patient Identification confirmed using: Name, : Yes Telehealth method: voice only Patient verbally consented to treatment: Yes Patient verbally consented to billing insurance company: Yes Patient informed of any privacy concerns related to visit: Yes Minutes spent on Phone/Video with Pt.: 15 Coding Level of Care Code Tele Est Pt Level 3 (62728) Diagnoses Kidney stone on left side N20.0 Left ureteral stone N20.1 Hydronephrosis N13.30
== END 2023-07-13 11:40 ==
PROVIDERS: PCP Nurse Practitioner Primary Care; Visit Provider Urology
DX: N20.0 Calculus of kidney (principal); N20.1 Calculus of ureter; N13.30 Unspecified hydronephrosis
CPT/HCPCS: 99024

== ENCOUNTER → 2023-07-13 11:30 | Outpatient (BNVA) | payer MEDICAID, SELFPAY | PROVIDERS: PCP Nurse Practitioner Primary Care; Visit Provider Urology ==

== ENCOUNTER 2023-08-02 13:42 | Outpatient (REF) | payer MEDICAID, SELFPAY | END 2023-08-02 13:43 | disposition home or self-care (01) | LOC: HO.HHCLNP 13:42 | PROVIDERS: Visit Provider Family Medicine | DX: N39.0 Urinary tract infection, site not specified (principal) | CPT/HCPCS: 87086 ==

== ENCOUNTER 2023-08-15 18:55 | Outpatient (REF) | payer MEDICAID, SELFPAY ==
[2023-08-15 19:05] LABS: Appearance Urine Cloudy; Color Urine Yellow; Glucose Urine UA 100 mg/dL (Negative); Leukocyte Esterase Urine Negative (Negative); Nitrite Urine Negative (Negative); PH 5.5 (5.0-9.0); Specific Gravity - Urine >= 1.030 (1.005-1.025); Urine Blood Negative (Negative); Urine Ketones Trace mg/dL (Negative); Urine Protein Trace mg/dL (Neg-Trace)
[2023-08-15 19:51] LABS: Bacteria Urine 3+ (None Seen); RBC Urine 0-2 /HPF (0-2); WBC Urine 0-5 /HPF (0-5)
== END 2023-08-15 18:56 | disposition home or self-care (01) ==
LOC: HO.HHCLNP 18:55
PROVIDERS: Visit Provider Nurse Practitioner Primary Care
DX: R39.11 Hesitancy of micturition (principal)
CPT/HCPCS: 81001; 87086

== ENCOUNTER 2023-08-21 09:25 | Emergency (ER) | payer MEDICAID, SELFPAY ==
[2023-08-21 09:52] VITALS: BP 139/85; PULSE 63; RESP 19; TEMP 36.6; O2SAT 98; BMI 29.9
--- NOTE | 2023-08-21 11:53 | PC.NURSE ---
pt from home reporting onset of a small wound under the right armpit that is causing pain when touching clothes. pt denies nausea, vomiting, fever and chills. pt noted to have small, chung sized wound under the right armpit.
--- NOTE | 2023-08-21 12:14 | ED_ITS ---
HPI - General Adult General Chief complaint: Wound/Laceration Stated complaint: Lump Under R Arm Time Seen by Provider: 08/21/23 11:33 Source: patient Mode of arrival: ambulatory Limitations: no limitations History of Present Illness HPI narrative: Patient is a 58-year-old female with history of DM presenting to the emergency department with complaint of abscess to right axilla which she noted on Sunday. Patient reports the area began to spontaneously drain purulent fluid on its own. Patient is concerned as the area has not fully resolved and she is diabetic. She denies any fevers/chills/body aches. MD complaint: Abscess Onset (ago): day(s) Severity: mild Quality: aching Pain Consistency: colicky Associated symptoms: denies other symptoms Treatments prior to arrival: none Related Data Home Medications Medication Instructions Recorded Confirmed albuterol sulfate 90 mcg/actuation 2 puff inhalation Q6H PRN 07/28/20 05/05/23 aerosol inhaler (Ventolin HFA) Shortness Of Breath gabapentin 300 mg capsule 300 mg PO BID 07/28/20 05/05/23 lisinopril 40 mg tablet 40 mg PO DAILY 07/28/20 05/05/23 simvastatin 20 mg tablet 20 mg PO DAILY 07/28/20 05/05/23 amlodipine 5 mg tablet 1 tab PO QAM 10/19/20 05/05/23 fluticasone propionate 220 1 puff PO BID 10/19/20 05/05/23 mcg/actuation HFA aerosol inhaler (Flovent HFA) metoprolol succinate 25 mg 0.5 tab PO QAM 10/25/20 05/05/23 tablet,extended release 24 hr cholecalciferol (vitamin D3) 25 25 mcg PO QAM 10/12/22 05/05/23 mcg (1,000 unit) capsule (Vitamin D3) insulin glargine 100 unit/mL (3 60 unit subcut DAILY 10/12/22 05/05/23 mL) subcutaneous pen (Lantus Solostar U-100 Insulin) insulin lispro 100 unit/mL 20 unit subcut TID 10/12/22 05/05/23 subcutaneous pen lidocaine 5 % topical patch 1 patch topical BID PRN Pain 10/12/22 05/05/23 pen needle, diabetic 31 gauge x #1,200 ea 10/12/22 01/10/23 5/16 (UltiCare Pen Needle) pioglitazone 15 mg tablet 15 mg PO QAM 10/12/22 05/05/23 prazosin 2 mg capsule 2 mg PO BEDTIME 10/12/22 05/05/23 quetiapine 100 mg tablet 150 mg PO BEDTIME 05/05/23 05/05/23 quetiapine 25 mg tablet 25 mg PO BID PRN Sleep 05/05/23 05/05/23 Previous Rx's Medication Instructions Recorded ibuprofen 600 mg tablet 600 mg PO TID PRN pain #14 tabs 10/03/20 pyridoxine (vitamin B6) 100 mg 100 mg PO DAILY #90 tabs 10/12/22 tablet esomeprazole magnesium 20 mg 20 mg PO BID 30 days #60 caps 10/26/22 capsule,delayed release hydromorphone 2 mg tablet 2 mg PO Q4-6H PRN pain #10 tabs 05/06/23 (Dilaudid) ketorolac 10 mg tablet 10 mg PO TID PRN pain 5 days #15 06/27/23 tabs tamsulosin 0.4 mg capsule (Flomax) 0.4 mg PO DAILY #14 caps 06/27/23 cephalexin 500 mg capsule 500 mg PO QID #28 caps 08/21/23 doxycycline hyclate 100 mg capsule 100 mg PO BID #14 caps 08/21/23 Allergies Allergy/AdvReac Type Severity Reaction Status Date / Time No Known Allergies Allergy Mild NOT Verified 07/13/23 11:32 APPLICABLE Review of Systems Review of Systems: As per HPI. 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 Mother Diabetes mellitus Sister Diabetes mellitus Brother No problems noted. Paternal Uncle Colon cancer Social History Social History Household Members: None Housing: Apartment Do you presently have visiting nurse or other home services: No Alcohol intake: current Alcohol intake frequency: a few times a month Alcohol type: beer Patient Tobacco Use Status: Current someday Tobacco user Tobacco use type: Cigarette Cigarettes Per Day: 3 Years Smoked: 15 Smoked in Last 30 Days: No Use of substances other than those prescribed or required for medical reasons: No Advance Directives: No Advance Directives Information Provided: Yes service: No Physical Exam ED Vital Signs: Vital Signs - 24 hr 08/21/23 09:52 Temperature 98 F Pulse Rate 63 Respiratory Rate 19 Blood Pressure 139/85 Pulse Oximetry 98 Oxygen Delivery Method Room Air BMI result Body Mass Index 29.9 Vital signs have been reviewed and appear to be correct. Blood pressure normal. Heart rate normal. Respiratory rate normal. Temperature normal. Oxygen saturation normal. Const General: cooperative, healthy appearing and no acute distress Orientation/consciousness: oriented to person, oriented to place, oriented to time and patient oriented x3 Limitations: no limitations HENMT Head: Yes normocephalic and Yes atraumatic Ears: external ears normal General nose exam: Normal external nose present Face and sinus: Yes face symmetric Mouth: oropharynx normal and moist mucous membranes Throat: Yes uvula midline Eyes Pupils: Equal, round and reactive pupils present Neck Neck: Yes normal visual inspection and Yes supple Resp Effort & Inspection: normal respiratory effort and able to speak in complete sentences Auscultation: clear to auscultation bilaterally Cardio Rate: regular rate Rhythm: regular rhythm Heart sounds: S1 normal heart sound present and S2 normal heart sound present GI Palpation (GI): Soft to palpation and nontender Auscultation: normoactive bowel sounds General: Yes no CVA tenderness Back/Spine/Pelvis Back: no CVA tenderness Skin Other: 1cm indurated abscess noted to right axilla spontaneously draining scant amount of purulent fluid, no surrounding erythema, warmth, fluctuance General skin exam: elasticity normal and turgor normal Neuro General: oriented to person, oriented to place, oriented to time, patient oriented x3, moves all extremities, no focal motor deficits and CN's II-XI intact bilaterally Cranial nerves: Yes Equal, round and reactive pupils present Cognition (Neuro): normal cognition Extrem General: Yes full ROM, Yes no pedal edema and Yes no calf tenderness Psych Mental Status: mental status grossly normal Affect: normal affect Thought process: Normal thought process present Medical Decision Making Medical Decision Making [facility] [place] Narrative: Patient is a 58-year-old female with history of DM presenting to the emergency department with complaint of abscess to right axilla which she noted on Sunday. On exam patient is awake, A+Ox3, VS WNL, afebrile, normal neurological exam without focal deficits, physical exam findings as above. Given reported symptoms and physical exam findings, initial differential includes abscess, cellulitis. Given the areas draining spontaneously and is indurated, incision and drainage not indicated this time. Will treat patient with doxycycline and Keflex given her history of diabetes. Patient questioning having entire area removed. Will refer to General surgery for further evaluation of this. Return precautions discussed at bedside. Patient verbalized understanding of and agreement with plan. Differential Diagnosis Differential Diagnoses: The differential diagnosis associated with the presentation includes As per [facility] [place] External Record Review External record reviewed: Inpatient record, Office record and Outpatient record Prescription Management I considered prescription management with: Antibiotic Discharge Plan Discharge Clinical Impression: Abscess of axilla, right Patient Disposition: Home, Self-Care Instructions: Abscess (ED), Abscess Follow-up (ED) Additional Instructions: You were evaluated in the ER for an abscess. Please keep the area surrounding the abscess clean and dry. You were given a prescription for antibiotics, please take the antibiotics as directed for the full course of the medication. You should perform a skin check of the area daily. If the abscess progresses you may have to have the abscess incised and drained. You can use Tylenol or ibuprofen per package directions as needed for pain. If necessary, you can alternate these medications so that you take one medication every 3 hours. For instance, at noon take ibuprofen, then at 3:00 p.m. take Tylenol, then at 6:00 p.m. take ibuprofen. Please schedule an appointment with your primary care physician as soon as possible for follow-up. Return to the emergency department if you experience fevers greater than 100.4? F, increased in area of redness or swelling, increasing amount of discharge from the area, increased tenderness around the area, or any other concerning symptoms. Prescriptions: New doxycycline hyclate 100 mg capsule 100 mg PO BID Qty: 14 0RF cephalexin 500 mg capsule 500 mg PO QID Qty: 28 0RF No Action ibuprofen 600 mg tablet 600 mg PO TID PRN (Reason: pain) Qty: 14 0RF Hold Instructions: Resume on 06/09/23. amlodipine 5 mg tablet 1 tab PO QAM fluticasone propionate [Flovent HFA] 220 mcg/actuation HFA aerosol inhaler 1 puff PO BID metoprolol succinate 25 mg tablet extended release 24 hr 0.5 tab PO QAM quetiapine 25 mg tablet 25 mg PO BID PRN (Reason: Sleep) quetiapine 100 mg Tablet 150 mg PO BEDTIME hydromorphone [Dilaudid] 2 mg tablet 2 mg PO Q4-6H PRN (Reason: pain) Qty: 10 0RF Rx Instructions: Partial Fill upon patient request. tamsulosin [Flomax] 0.4 mg capsule 0.4 mg PO DAILY Qty: 14 0RF ketorolac 10 mg tablet 10 mg PO TID PRN (Reason: pain) 5 Days Qty: 15 0RF albuterol sulfate [Ventolin HFA] 90 mcg/actuation HFA aerosol inhaler 2 puff inhalation Q6H PRN (Reason: Shortness Of Breath) gabapentin 300 mg capsule 300 mg PO BID simvastatin 20 mg tablet 20 mg PO DAILY lisinopril 40 mg tablet 40 mg PO DAILY esomeprazole magnesium 20 mg capsule,delayed release(DR/EC) 20 mg PO BID 30 Days Qty: 60 3RF insulin glargine [Lantus Solostar U-100 Insulin] 100 unit/mL (3 mL) insulin pen 60 unit subcut DAILY (DME) pen needle, diabetic [UltiCare Pen Needle] 31 gauge x 5/16 needle See Rx Instructions .ROUTE QID Qty: 1200 Rx Instructions: As directed insulin lispro 100 unit/mL insulin pen 20 unit subcut TID prazosin 2 mg capsule 2 mg PO BEDTIME lidocaine 5 % adhesive patch,medicated 1 patch topical BID PRN (Reason: Pain) pioglitazone 15 mg tablet 15 mg PO QAM cholecalciferol (vitamin D3) [Vitamin D3] 25 mcg (1,000 unit) capsule 25 mcg PO QAM pyridoxine (vitamin B6) 100 mg tablet 100 mg PO DAILY Qty: 90 3RF Referrals: [facility] General Surgeons [Provider Group]
[2023-08-21 12:31] VITALS: BP 133/75; PULSE 59; RESP 15; TEMP 37.2; O2SAT 96
== END 2023-08-21 12:34 | disposition home or self-care (01) ==
PROVIDERS: Emergency Provider Emergency Medicine Emergency Medical Services; PCP Nurse Practitioner Primary Care
DX: L02.411 Cutaneous abscess of right axilla (principal); E11.9 Type 2 diabetes mellitus without complications; I10 Essential (primary) hypertension; E78.5 Hyperlipidemia, unspecified; B19.20 Unspecified viral hepatitis C without hepatic coma; F17.210 Nicotine dependence, cigarettes, uncomplicated
CPT/HCPCS: 99283; 99284

== ENCOUNTER 2023-08-30 08:27 | Outpatient (REF) | payer MEDICAID, SELFPAY ==
--- NOTE | ~2023-08-30 | US_ITS ---
EXAMINATION: US ABDOMEN COMPLETE CLINICAL INFORMATION: HCV. Cirrhosis. COMPARISON: Renal ultrasound 06/27/2023. CT abdomen and pelvis 05/04/2023. X-ray abdomen KUB 05/02/2023. Ultrasound abdomen 08/29/2022. TECHNIQUE: Real-time imaging of the abdominal viscera. FINDINGS: PANCREAS: No abnormal mass or peripancreatic inflammatory change. ABDOMINAL AORTA: The proximal, mid, and distal segments are normal in caliber. INFERIOR VENA CAVA: Visualized portions are normal. LIVER: The liver has a coarsened echotexture without focal mass identified. There is a lobular contour to the liver. This has the appearance of cirrhosis. There is no intrahepatic biliary duct dilatation seen. GALLBLADDER: Surgically absent. COMMON BILE DUCT: Normal in caliber measuring 0.3 cm in diameter. RIGHT KIDNEY: Normal. No hydronephrosis. No renal calculi or focal parenchymal lesions. The kidney measures 8.6 cm in maximum dimension. LEFT KIDNEY: Normal. No hydronephrosis. No renal calculi or focal parenchymal lesions. The kidney measures 10.0 cm in maximum dimension. SPLEEN: The spleen measures 11.2 cm in maximum dimension. Splenic varices are present. ADDITIONAL FINDINGS: There appears to be a left pleural effusion present. US/US abdomen complete IMPRESSION: Findings consistent with hepatic cirrhosis with elevated portal pressures and varices. No focal hepatic mass identified. Left pleural effusion.
== END 2023-08-30 08:28 | disposition home or self-care (01) ==
LOC: HO.US 08:27
PROVIDERS: PCP Nurse Practitioner Primary Care; Visit Provider Nurse Practitioner Primary Care
DX: K74.69 Other cirrhosis of liver (principal); B19.20 Unspecified viral hepatitis C without hepatic coma
CPT/HCPCS: 76700

== ENCOUNTER 2023-09-10 13:44 | Outpatient (AMB) | payer MEDICAID, SELFPAY ==
--- NOTE | 2023-09-10 13:50 | MHC.OFFVIS ---
Intake Vital Signs 09/10/23 13:51 Height 5 ft 3 in Weight 175 lb BMI 31.0 BP 124/72 Blood Pressure Location Lt brachial Position Sitting Pulse 63 Pulse Source Pulse Oximeter Pulse Oximetry (%) 98 Oxygen Delivery Method Room Air Intake Visit Reasons: asthma Intake Note: pt is here for follow up and states she did have a flare of asthma, went to walk in and given prednisone., feeling better Roll Builder Required: No Allergies No Known Allergies Allergy (Mild, Verified 09/10/23 14:03) NOT APPLICABLE Medication List - Last Reconciled 09/10/23 by Jennifer Amaya MD albuterol sulfate 90 mcg/actuation (Ventolin HFA) 2 puffs inhalation Q6H PRN albuterol sulfate 2.5 mg inhalation Q4-6H PRN amlodipine 1 tab PO QAM cholecalciferol (vitamin D3) (Vitamin D3) 25 mcg PO QAM doxycycline hyclate 100 mg PO BID esomeprazole magnesium 20 mg PO BID 30 days fluticasone propionate 220 mcg/actuation (Flovent HFA) 1 puff PO BID gabapentin 300 mg PO BID hydromorphone (Dilaudid) 2 mg PO Q4-6H PRN ibuprofen 600 mg PO TID PRN insulin glargine (Lantus Solostar U-100 Insulin) 60 units subcut DAILY insulin lispro 20 units subcut TID ketorolac 10 mg PO TID PRN 5 days lidocaine 5% 1 patch topical BID PRN lisinopril 40 mg PO DAILY metoprolol succinate ER 0.5 tabs PO QAM pen needle, diabetic (UltiCare Pen Needle) As directed pioglitazone 15 mg PO QAM prazosin 2 mg PO BEDTIME pyridoxine (vitamin B6) 100 mg PO DAILY quetiapine 150 mg PO BEDTIME quetiapine 25 mg PO BID PRN simvastatin 20 mg PO DAILY tamsulosin (Flomax) 0.4 mg PO DAILY Do you need a note to return to daycare/school/sports/work: No HPI asthma HPI Details 58 YEARS OLD FEMALE KNOWN CASE OF BRONCHIAL ASTHMA/ALLERGIC RHINITIS. IS HERE FOR FOLLOW-UP AFTER 6 MONTHS. HER ASTHMA REMAINED UNDER GOOD CONTROL EXCEPT LAST WEEK SHE HAD AN ACUTE EXACERBATION. SHE WAS SEEN IN A WALK-IN CLINIC AND PRESCRIBED A SHORT COURSE OF PREDNISONE, NO ANTIBIOTIC. SHE IS ALREADY GETTING BETTER. DOES NOT HAVE TO USE THE NEBULIZER ARE ALBUTEROL HFA FOR MORE THAN ONCE OR TWICE A DAY. NORMALLY WHEN HER ASTHMA IS UNDER GOOD CONTROL SHE USES THE ALBUTEROL IN THE NEBULIZER ABOUT ONCE A DAY. SHE IS ALSO ON FLOVENT-220 WHICH SHE USES 2 PUFFS TWICE A DAY. TODAY SHE CLAIMS THAT SHE IS DOING WELL EXCEPT FOR ONLY. MILD INTERMITTENT COUGH SHE DENIES ANY WHEEZING. SHE STILL SMOKES ABOUT 3 CIGARETTES A DAY. [facility]LY [facility] Medical History Somnolence, daytime Flank pain RUQ abdominal pain Left foot pain Bilateral hand pain COVID-19 Hepatitis C Rheumatoid arthritis Flank pain Renal stones Bipolar disorder Panic disorder Depression Anxiety Abdominal distension (gaseous) Asthma Hyperlipidemia Benign neoplasm of pituitary gland and craniopharyngeal duct Mononeuritis HTN (hypertension) Diabetes mellitus, insulin dependent (IDDM), uncontrolled Obese GERD (gastroesophageal reflux disease) Kidney stone Chronic hepatitis C without hepatic coma Cirrhosis of liver without ascites Surgical History Hx of lithotripsy History of esophagogastroduodenoscopy (EGD) Hx of cholecystectomy Family History Father No problems noted. Mother Diabetes mellitus Sister Diabetes mellitus Brother No problems noted. Paternal Uncle Colon cancer Social History Household Members: None Housing: Apartment Do you presently have visiting nurse or other home services: No Alcohol intake: current Alcohol intake frequency: a few times a month Alcohol type: beer Patient Tobacco Use Status: Current someday Tobacco user Tobacco use type: Cigarette Cigarettes Per Day: 3 Years Smoked: 15 service: No Review of Systems Const All systems reviewed & are unremarkable except as noted in HPI and below Eyes Reports no additional complaints ENT Reports no additional complaints Card Denies chest pain, Denies irregular heart rhythm and Denies leg edema Resp Reports as per HPI GI Reports dyspepsia and Reports heartburn Reports no additional complaints Musc Reports back pain Skin/Breast Reports system reviewed and no additional complaints, except as documented Neuro Reports no additional complaints Psych Reports no additional complaints Endo Reports other (IDDM ) Aller/Immun Reports no additional complaints Physical Exam Vital Signs: Last Vital Signs Pulse 63 09/10/23 13:51 BP 124/72 09/10/23 13:51 Pulse Ox 98 09/10/23 13:51 Oxygen Delivery Method Room Air 09/10/23 13:51 BMI result Body Mass Index 31.0 Const General: healthy appearing (except for being slightly over weight ), comfortable, no acute distress, alert and awake Orientation/consciousness: patient oriented x3 HEENT Head: Yes normal to inspection General nose exam: No nasal polyps present and No nasal discharge present Face and sinus: Yes sinuses nontender Mouth: oropharynx normal (Mallampatti class=3) Throat: Yes posterior oropharynx normal Eyes General: appearance normal, both eyes and all related structures Neck Neck: Yes normal visual inspection, Yes no lymphadenopathy, Yes trachea midline, Yes no JVD and Yes other (Neck circumference=15.5 ) Thyroid: Thyroid normal Chest Chest palpation & inspection: normal inspection of the chest, normal palpation of entire chest wall and no tenderness Resp Effort & Inspection: normal respiratory effort Auscultation: no crackles, no wheezes and diminished lung sounds (slightly distant ) Cardio Palpation: normal PMI Rate: regular rate Rhythm: regular rhythm Heart sounds: no gallops and no murmurs Peripheral pulses: Peripheral pulses 2+ throughout GI Palpation (GI): Soft to palpation, nontender, No hepatosplenomegaly present and no masses Auscultation: normal bowel sounds Back/Spine/Pelvis Thoracic/Lumbar Spine: thoracic and lumbar spine normal to inspection Skin General skin exam: no rashes or lesions noted Neuro General: patient oriented x3 and no focal motor deficits Cranial nerves: Yes CN's II-XII intact bilaterally Extrem General: Yes normal to inspection, Yes no clubbing, cyanosis or edema and Yes no calf tenderness Psych Appearance: grossly normal and well kempt Speech and movement: Normal speech and movement present Office Procedures Spirometry Testing Spirometry Comments: In office spirometry completed. Results to Dr Amaya. [id number]- Spirometry Results Reviewed Results Reviewed: Spirometry in the office. Patient was able to do the test without any difficulty. FVC= 74 % FEV1==69 % FEV1/FVC= 73 FEF 25-75 = 61 % C/W MILD RESTRICTIVE LUNG DISORDER. MILD OBSTRUCTIVE AIRWAY DISORDER. Assessment & Plan Assessment & Plan (1) Asthma: Comment: ASTHMA /COPD, NEEDS TO HAVE PFT s TO SEE IF SHE WILL NEED SOME STRONGER AGENTS . HOWEVER PATIENT HAS NOT BEEN ABLE TO DO THE TEST . Code(s): J45.909 - Unspecified asthma, uncomplicated Plan: TX: CONT. USING FLOVENT-220 2 PUFFS BID ,AND PROAIR 2 PUFFS Q 6 HRS ONLY PRN . ALTERNATIVELY MAY USE ALBUTEROL SOLUTION IN THE NEBULIZER Q 6 HOURS ONLY P.R.N.. (2) Sleep disorder, unspecified: Comment: HISTORY OF SNORING, FREQUENT AWAKENING AT NIGHT WITH SHORTNESS OF BREATH,, DAYTIME FATIGUE/SLEEPINESS, OBSTRUCTIVE SLEEP APNEA IS SUSPECTED . PATIENT DID TAKE THE SLEEP TEST DEVICE AT HOME, BUT YOLY DID THE TEST . SUBSEQUENTLY PATIENT DECIDED, NOT TO UNDERGO ANY SLEEP TEST AND RETURNED THE SLEEP STUDY DEVICE . SHE TELLS US THAT SHE IS NOW SLEEPING GOOD AND SHE DOES NOT NEED ANY ADDITIONAL HELP. Code(s): G47.9 - Sleep disorder, unspecified Plan: ADVISED TO CONTINUE FOLLOWING SLEEP HYGIENE MEASURES. ADVISED TO ALWAYS SLEEP IN LATERAL POSITION. Orders: Orders AMB Spirometry Testing Today J45.909 - Unspecified asthma, uncomplicated Coding Level of Care Code Est Pt Level 3 (20001) Diagnoses Asthma J45.909 Sleep disorder, unspecified G47.9 CPT Codes Spirometry - CPT: 15453- Spirometry ([id number])
[2023-09-10 13:51] VITALS: BP 124/72; PULSE 63; O2SAT 98; BMI 31.0
== END 2023-09-10 14:25 | disposition home or self-care (01) ==
PROVIDERS: PCP Nurse Practitioner Primary Care; Referring Provider Nurse Practitioner Primary Care; Visit Provider Internal Medicine
DX: J45.909 Unspecified asthma, uncomplicated (principal); G47.9 Sleep disorder, unspecified
CPT/HCPCS: 94010; 99213

== ENCOUNTER → 2023-09-10 13:44 | Outpatient (BNVA) | payer MEDICAID, SELFPAY | PROVIDERS: PCP Nurse Practitioner Primary Care; Visit Provider Internal Medicine | DX: J45.909 Unspecified asthma, uncomplicated (principal); G47.9 Sleep disorder, unspecified | CPT/HCPCS: 94010; 99212 ==

== ENCOUNTER 2023-09-20 11:19 | Outpatient (REF) | payer MEDICAID, SELFPAY ==
--- NOTE | ~2023-09-20 | XR_ITS ---
EXAMINATION: XR CHEST CLINICAL INFORMATION: Question pleural effusion on abdominal ultrasound. COMPARISON: Abdominal ultrasound 08/30/2023, CT chest 10/27/2020. TECHNIQUE: 2 views of the chest were obtained. FINDINGS: Lungs are well expanded. No consolidation or effusion. Mild degenerative changes in the spine. Cholecystectomy. XR/XR chest 2V IMPRESSION: No pleural effusion.
[2023-09-20 13:26] LABS: Basophils Percent Auto 0.3 % (0-2); Eosinophils Absolute Auto 0.2 X10*3/uL (0.0-0.4); Eosinophils Percent Auto 2.4 % (0-4); Hematocrit 37.9 % (37.0-47.0); Hemoglobin 12.5 g/dl (12.0-16.0); Imm Gran Abs Auto 0.03 X10*3/uL (0.00-0.03); Imm Gran Pct Auto 0.5 % (0.0-0.4); Lymphocytes Absolute Auto 1.9 X10*3/uL (1.2-4.9); Lymphocytes Percent Auto 30.2 % (20-40); MANUAL DIFF FLAG SCAN; Mean Corpuscular Hemoglobin 28.2 pg (27.0-33.0); Mean Corpuscular Volume 85.4 fL (80.0-98.0); Monocytes Absolute Auto 0.7 X10*3/uL (0.1-1.2); Monocytes Percent Auto 11.5 % (2-11); Neutrophils Absolute Auto 3.4 x10*3/uL (2.0-8.3); Neutrophils Percent Auto 55.1 % (45-73); PLT CLUMP 1; Red Blood Count 4.44 X10*6/uL (4.20-5.50); Red Cell Distribution Width 13.1 % (11.0-16.0); SCAN SMEAR FLAG 1
[2023-09-20 13:27] LABS: White Blood Count 6.2 X10*3/uL (4.8-10.8)
[2023-09-20 13:29] LABS: Rheumatoid Factor 28.9 IU/mL (<15.0)
[2023-09-20 13:34] LABS: Estimated Average Glucose 166 mg/dL; Hemoglobin A1c % 7.4 % (<6.0)
[2023-09-20 13:51] LABS: Alanine Aminotransferase 78 U/L (0-31); Alkaline Phosphatase 169 U/L (39-117); Anion Gap 13 (12-20); Aspartate Amino Transferase 55 U/L (5-31); Bilirubin Total 0.4 mg/dL (0.0-1.0); Blood Urea Nitrogen 10 mg/dL (9-16); C Reactive Protein 0.18 mg/dL (< or = 0.50); Calcium 9.8 mg/dL (8.4-10.2); Carbon Dioxide 28 mmol/L (22-29); Chloride 105 mmol/L (96-108); Estimated Glomerular Filt Rate > 60; Glucose Random 106 mg/dL (60-115); Potassium 3.9 mmol/L (3.3-5.1); Sodium 142 mmol/L (135-145); Total Protein 7.9 g/dL (6.5-8.0)
[2023-09-20 14:03] LABS: Platelet Count 140 X10*3/uL (160-400)
[2023-09-20 14:04] LABS: SLIDE REVIEW VERIFIED
[2023-09-20 14:07] LABS: TSH reflex Free T4 2.67 uIU/mL (0.32-4.0)
[2023-09-20 14:17] LABS: Erythrocyte Sedimentation Rate 17 MM/HR (0-20)
[2023-09-29 18:28] LABS: ANA Pattern 3 Mitotic, Centrosome; ANA Titer 3 1:40 titer; Anti Nuclear Antibody Pattern Nuclear, Homogeneous; Anti Nuclear Antibody Screen POSITIVE (NEGATIVE)
== END 2023-09-20 11:20 | disposition home or self-care (01) ==
LOC: HO.HHCL 11:19
PROVIDERS: Visit Provider Nurse Practitioner Primary Care
DX: M25.50 Pain in unspecified joint (principal); E11.69 Type 2 diabetes mellitus with other specified complication; E78.5 Hyperlipidemia, unspecified; J90 Pleural effusion, not elsewhere classified
CPT/HCPCS: 36415; 71046; 80053; 83036; 84443; 85025; 85652; 86038; 86039; 86140; 86431

== ENCOUNTER 2023-09-24 07:32 | Outpatient (AMB) | payer MEDICAID, SELFPAY ==
--- NOTE | 2023-09-24 07:36 | A.OFFVIS_ITS ---
Vital Signs 09/24/23 07:43 Height 5 ft 3 in Weight 176 lb 5.917 oz BMI 31.2 BP 149/79 H Blood Pressure Location Lt brachial Position Sitting Pulse 72 Intake Visit Reasons: follow up for results Intake Note: Tank presents in the office as a follow up for her test results. CC: She states that she is here because she is having problems with her intestines. She was told something is going on with her bowels. She feels urgency to go to urine. She is having a burning sensation and she is having pressure around her gall bladder. She was told that her symptoms are due to kidney stones and she feels as though this is something different. 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 12/01/22 patient reports she started taking the Mavyret on November 06 and d/c'd it on November 13 due to throbbing headaches she was constantly getting. patient reports that she was advised to continue taking medication and that headache w ould subside. patient reports that this was not the case. patient reports that she was taking Tylenol 650mg and there was no improvement. she states that she cannot take too much Tylenol due to her Cirrhosis. patient states she was awaiting appointment to further discuss and receive your recommendation/suggestions. patient also reported fatigue, and trouble sleeping. IMAGING STUDIES:? 08/30/23 ABD US SHOWED: Findings consistent with hepatic cirrhosis with elevated portal pressures and varices. No focal hepatic mass identified. Left pleural effusion. 07/2022 ABD US SHOWED: 1.? Cirrhotic liver with borderline splenomegaly. 2.? Nonobstructive left renal calculi. 3.? Nonobstructive right renal calculi versus vascular calcifications. 4.? Status post cholecystectomy. 10/27/20 ABD US SHOWED:Three echogenic nonobstructive stones left kidney. Hepatic steatosis with nodular appearance and mild hepatomegaly most suggestive of cirrhosis. Similar findings were seen on the previous ultrasound exam 12/10/2013. ENDOSCOPIC STUDIES:?05/05/22 EGD SHOWED: ESOPHAGUS: GE junction at 36 cms. No varices, esophagitis or Harrison's. STOMACH:? Mild portal gastropathy and antral erythema. Biopsies were obtained. No gastric varices and grade 2 flap valve on retroflexed examination of the cardia. DUODENUM: A diverticulum seen in the medial wall of the bulb. Normal descending duodenum - biopsies were obtained to check for celiac sprue. Plan:? Patient has an appointment on 07/27/22 in the GI Clinic with? Ashlie Maldonado M.D. BIOPSES SHOWED: A.? Small bowel, biopsy:? Small intestinal mucosa with focal mildly increased intraepithelial lymphocytes and preserved villous architecture.? See comment. B.? Stomach, antrum, biopsy:? Antral-type and oxyntic mucosa with moderate chronic, focally active, inflammation and focal intestinal metaplasia; no dysplasia identified; no Helicobacter organisms seen. COMMENT: The findings in the duodenum are non-specific.? The differential diagnosis is broad and includes infection (e.g. viral or H. pylori), medication/drugs (e.g. NSAIDs), gluten sensitivity/celiac disease, bacterial overgrowth, tropical sprue, immunodeficiency syndromes (e.g. IgA deficiency, CVID), autoimmune enteropathy, Crohns and collagen vascular disease, among others.? Please correlate with clinical and other laboratory findings. TODAY'S VISIT: [facility] [place] [facility] Health ClinicianSharon Pt tearful due to abdominal pain - 04/08 RUQ pain radiating down into the augustus dder. Complains of pain and pressure when she urinates - hx of urinary obstruction due to renal stones. Pt complains of pain since she had a cystoscopy in 05/21. PAST VISITS: Took Mavyret for 1 week and stopped due to persistent GOMEZ's Has a hx of HAs before starting Mavyret. GOMEZ got worse after she started the Mavyret. Usually has HAs at night when she is trying to go to sleep. Takes Tyelenol with partial improvement. Wakes up with GOMEZ the following day. Takes a shower and the GOMEZ goes away. Denies dysphagia to food Takes Esomeprazole twice daily. Pt is being scheduled in [place] for a breast bx due to bleeding from the rt nipple. Denies any change in GI symptoms Continues to have burning, bloating, constipation and diarrhea Complains of RUQ pain radiating to the back. Pain is constant and takes tylenol. Notes intermittent diarrhea - usually once a week. Hx of PUD.? No ulcer on FU EGD. Complains of difficulty urinating and advised to schedule a FU appt with Dr Hubbard Complains of right flank pain for the past 4 to 5 days radiating anteriorly - has a hx of renal stones and was advised to FU with Urology. Intermittent abdominal bloating. Has a BM daily and notes occasional diarrhea Scheduled for an EGD in 07/19 and did not come for the appt since she was not feeling good. She would like to reschedule. Pt was seen by Dr Michele (ID) for Hepatitis C and she was prescribed Mavyret x 8 weeks Pt states she unable to start treatment since ? medication was not covered. She will fax the letter from her Insurance to the GI clinic Noted GOMEZ and diarrhea after she was prescribed medications for DM. Diagnosed with Hepatitis C ? 10 yrs ago. Denies IVDA.? Had blood transfusion several yrs ago. Intermittent fatigue and GOMEZ. Patient denies symptoms of heartburn, dysphagia, nausea, vomiting, change in appetite.? Weight fluctuates. Chronic constipation and diet related diarrhea. Denies recent change in bowel habits, black stools or rectal bleeding. Patient denies major cardiac or pulmonary problems, loud snoring or sleep apnea Denies problems with anesthesia in the past. Denies being on chronic anticoagulation. Patient denies known family history of liver disease, colon polyps, or other GI malignancies. Paternal uncle had colon cancer and of the disease. PAST EGD/COLONOSCOPY:? EGD a long time ago showed stomach ulcers. Never had a colonoscopy. PAST GI HISTORY BY REVIEW OF MEDICAL RECORDS: 04/2018 Pt was seen in the GI clinic by QUENTIN Branch: 53 yo female returns for a scheduled office visit for cirrhosis and hepatitis? C.?manager oncology Ingrid Miller interprets for todays'? visit. ?Patient has been seen in the past for treatment of hepatitis C? but was inconsistent in keeping appointments and never received treatment. She? had been scheduled for an EGD in 2015 but study was cancelled due to blood? sugars too high. Has not been seen since 2016. ?Patient comes today as? she is asking for an EGD and colonoscopy to be performed. States that the clinic? she attends has ordered Harvoni to treat her Hepatitis C but patient requests? that the EGD be performed before she starts the treatment. States that she's had? an ulcer in the past and wants to make sure her stomach was ok. Additionally she? states that she hasn't had a colonoscopy and would like that to be performed? before starting treatment. ?Patient states that she was recently seen? in the ER for back pain and was told that she had a pinched nerve. Reviewing the? CT notes that she had two kidney stones- a 2 and a 3mm on the right and an 8mm? on the left. Her WBC count was at 17 and there was blood in her urine. The Ct? also noted that the surface of her liver was c/w cirrhosis. Is aware that she? needs a repeat diagnostic study every 6 months for HCC surveillance. Liver labs? reveal AST 41, ALT 54, GGT 55, alk phos 155. ?The CT also reveal that? she has diverticulosis and was unaware. States that she moves her bowels nearly? every day but does have intermittent straining and will have blood on the? tissue. ?No previous colonoscopy. No family h/o colon cancer. Patient? is diabetic and states that she lost a lot of weight and remarks that her? diabetes is better controlled. 1.?Cirrhosis of liver without ascites, unspecified hepatic cirrhosis? type ?Notes: Patient has cirrhosis- most likely from Hep C. Is aware? that she will need q6 months HCC surveillance.?? 2.?H/O gastric ulcer?Notes: Patient has a h/o gastric ulcer? in 2000- is concerned that she wants to make sure her stomach is healthy before? starting Harvoni. 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 Mother Diabetes mellitus Sister Diabetes mellitus Brother No problems noted. Paternal Uncle Colon cancer Social History Household Members: None Housing: Apartment Do you presently have visiting nurse or other home services: Yes Alcohol intake: current Alcohol intake frequency: former alcohol drinker Alcohol type: beer Patient Tobacco Use Status: Current everyday Tobacco user Tobacco use type: Cigarette Cigarettes Per Day: 2 Years Smoked: 15 service: No Review of Systems Const All systems reviewed & are unremarkable except as noted in HPI and below Physical Exam Vital Signs: Last Vital Signs Pulse 72 09/24/23 07:43 BP 149/79 H 09/24/23 07:43 BMI result Body Mass Index 31.2 Const General: healthy appearing and no acute distress Nutritional Appearance: obese Orientation/consciousness: patient oriented x3 Limitations: language barrier HEENT Head: Yes normal to inspection Ears: hearing grossly normal bilaterally Eyes Sclerae: sclerae normal Pupils: Equal, round and reactive pupils present Neck Neck: Yes normal visual inspection Chest Chest palpation & inspection: normal inspection of the chest Resp Effort & Inspection: normal respiratory effort Auscultation: clear to auscultation bilaterally Cardio Palpation: normal PMI Rate: regular rate Rhythm: regular rhythm Heart sounds: S1 normal heart sound present, S2 normal heart sound present and no murmurs GI Palpation (GI): Soft to palpation, nontender and No hepatosplenomegaly present Auscultation: normal bowel sounds Rectal Exam - Female: deferred Skin General skin exam: no rashes or lesions noted Neuro General: patient oriented x3, gait normal and moves all extremities Cranial nerves: Yes Equal, round and reactive pupils present Psych Appearance: grossly normal Mental Status: mental status grossly normal Assessment & Plan Assessment & Plan (1) Hepatitis C: Comment: She has chronic active hepatitis-C. She has not completed any treatment. She is concerned about trouble swallowing pills and duration of treatment course. I did explain the severity of hepatitis C and the lack of any intramuscular or IV treatment options so patient said she would try to swallow pills and take pills with food. She is also medication for hypercholesterolemia which may have some interaction with glecaprevir/pibrentasvir which is Mavyret She has no evidence of prior liver damage Code(s): B19.20 - Unspecified viral hepatitis C without hepatic coma Category: Medical (2) Cirrhosis: Code(s): K74.60 - Unspecified cirrhosis of liver Category: Medical (3) Dysuria: Code(s): R30.0 - Dysuria Category: Medical Plan 58 YF with asthma, Htn, DM followed in GI for cirrhosis complicated by mild thrombocytopenia (Liver Fibrosis score 0.73, Liver Fibrosis stage F3- F4) due to hepatitis-C infection (possibly acquired by a blood transfusion several yrs ago). Patient denies having a colonoscopy in the past. Patient has not had treatment for hepatitis-C since she has trouble swallowing pills. On 12/01/22 @ 13:29 Sarah Haddad Wrote To Ashlie Maldonado telephone call was placed to patient to inquire about below. patient reports she started taking the Mavyret on November 06 and d/c'd it on November 13 due to throbbing headaches she was constantly getting. patient reports that she was advised to continue taking medication and that headache would subside. patient reports that this was not the case. patient reports that she was taking Tylenol 650mg and there was no improvement. she states that she cannot take too much Tylenol due to her Cirrhosis. patient states she was awaiting appointment to further discuss and receive your recommendation/suggestions. patient also reported fatigue, and trouble sleeping. 05/05/22 EGD was performed (FU of PUD) and findings as noted above Pt was seen by Dr Michele (ID) for Hepatitis C and she was prescribed Mavyret x 8 weeks Pt states she unable to start treatment since she is unable to swallow large pills/ ? medication was not covered. (Checked with [facility] [place] pharmacist - Mavyret is available in pellet form containing Glecaprevir 50 mg and pibrentasvir 20 mg Pt can mix with peanut butter or tuvaluan yogurt - she will need to take 6 packets daily. New prescription was sent for Mavyret. REDUCING THE RISK OF LIVER PROGRESSION:? patient was advised to completely avoid use of alcohol and lose weight. ?HCC SURVEILLANCE: ? the patient is at risk of developing hepatocellular carcinoma given the presence of cirrhosis and need 6 monthly imaging surveillance with either abdominal ultrasound (US) or multiphase cross-sectional imaging (CT or MRI).? Last Abd CT SCAN in 12/2021 and abd US in Jul, 2022 had shown no focal liver lesions suspicious of HCC.? SURVEILLANCE FOR GASTROESOPHAGEAL VARICES: No varices noted on EGD in 04/2022. QUESTION OF LIVER TRANSPLANTATION: ? As she has never had any hepatic decompensation, and continues to have good hepatic synthetic function with meld score of 7, liver transplantation does not need to be considered at this time. 09/24/23 Complains of pain and pressure when she urinates - hx of urinary obstruction due to renal stones. Pt complains of pain since she had a cystoscopy in 05/21. Pt advised to FU with Urology. Pt? will be scheduled for a colonoscopy for colon cancer screening. FU in 2 months Orders: Orders UA CC w/rflx Micro + Cult 09/24/23 R30.0 - Dysuria Coding Level of Care Code Est Pt Level 4 (32518) Diagnoses Hepatitis C B19.20 Cirrhosis K74.60 Dysuria R30.0 Time Spent (min) 21
[2023-09-24 07:43] VITALS: BP 149/79; PULSE 72; BMI 31.2
== END 2023-09-24 08:26 | disposition home or self-care (01) ==
PROVIDERS: PCP Nurse Practitioner Primary Care; Visit Provider Internal Medicine Gastroenterology
DX: B19.20 Unspecified viral hepatitis C without hepatic coma (principal); K74.60 Unspecified cirrhosis of liver; R30.0 Dysuria
CPT/HCPCS: 99499

== ENCOUNTER 2023-09-24 07:32 | Outpatient (REF) | payer MEDICAID, SELFPAY ==
[2023-09-24 09:59] LABS: Appearance Urine Clear; Color Urine Yellow; Glucose Urine UA Negative (Negative); Leukocyte Esterase Urine Negative (Negative); Nitrite Urine Negative (Negative); PH 5.5 (5.0-9.0); Urine Blood Negative (Negative); Urine Ketones Negative (Negative); Urine Protein Negative (Neg-Trace)
== END 2023-09-24 07:33 | disposition home or self-care (01) ==
LOC: HO.LAB 07:32
PROVIDERS: PCP Nurse Practitioner Primary Care; Visit Provider Internal Medicine Gastroenterology
DX: K74.60 Unspecified cirrhosis of liver (principal); B19.20 Unspecified viral hepatitis C without hepatic coma; R30.0 Dysuria
CPT/HCPCS: 81003

== ENCOUNTER 2023-09-25 09:22 | Emergency (ER) | payer MEDICAID, SELFPAY ==
--- NOTE | ~2023-09-25 | CT_ITS ---
EXAMINATION: CT ABDOMEN AND PELVIS WITHOUT CONTRAST CLINICAL INFORMATION: Right flank pain COMPARISON: 05/04/2023 TECHNIQUE: Multidetector volumetric imaging was performed from the superior aspect of the liver through the pubic symphysis. Sagittal and coronal reformatted images were obtained on the technologist's workstation. This CT examination was performed using dose optimization techniques as appropriate, variously including the following: *Automated exposure control *Adjustment of mA and/or kV according to patient size (this includes techniques or standardized protocols for targeted exams where dose is matched to indication/reason for exam; i.e. 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 Nonobstructive bowel pattern. LUNG BASES: Hyperinflation. Right basilar atelectasis. Nonspecific precardiac lymph nodes. Coronary calcifications. LIVER, GALLBLADDER, AND BILIARY TREE: Liver is enlarged with nodular contour. No focal hepatic lesion on noncontrast enhanced study. No biliary ductal dilatation is present. The gallbladder has been surgically removed. PANCREAS: Unremarkable. SPLEEN: Spleen is enlarged to 15.3 cm with multiple splenules. Splenic calcification. ADRENAL GLANDS: Unremarkable. KIDNEYS AND URETERS: The kidneys are normal in size, shape, and attenuation. No hydronephrosis or hydroureter. Vascular calcifications. Nonobstructing left lower pole calculus/calculi measuring 7 mm in aggregate. These have decreased from prior. No perinephric stranding. BLADDER: Decompressed. GASTROINTESTINAL TRACT: Moderately distended unremarkable stomach. Nonobstructive bowel pattern. Unremarkable appendix. Diverticulosis without diverticulitis.. ABDOMINAL WALL: Likely injection sites anterior abdominal wall. Small fat filled umbilical hernia. LYMPH NODES: No pathologic lymphadenopathy. VASCULAR: Atherosclerotic calcifications nonaneurysmal aorta. Normal caliber inferior vena cava. PELVIC VISCERA: Unremarkable. OSSEOUS STRUCTURES: No suspicious osseous. CT/CT abdomen pelvis wo IV con IMPRESSION: Nonobstructing left renal calculi. Cirrhosis and portal hypertension/splenomegaly. Diverticulosis without diverticulitis. Fleischner guidelines were followed.
[2023-09-25 09:28] VITALS: BP 140/89; PULSE 86; RESP 20; TEMP 37; O2SAT 98; BMI 30.7
--- NOTE | 2023-09-25 10:24 | ED.ABDPAIN ---
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 She comes in again with the same pain and states she cannot take it anymore. No fevers, n/v/d. Notes her bladder hurts and she pees herself all the time. MD elicited complaint: abdominal pain and flank pain Pertinent past history: kidney stones Onset (ago): year(s) (1) Pain Consistency: constant Location: RLQ, R flank and suprapubic Severity: moderate Quality: aching Radiation: none Migration to: no migration Exacerbating factors: other (urination) Relieving factors: nothing Context: history of similar episodes Associated symptoms: dysuria Related Data Home Medications Medication Instructions Recorded Confirmed gabapentin 300 mg capsule 300 mg PO BID 07/28/20 05/05/23 lisinopril 40 mg tablet 40 mg PO DAILY 07/28/20 05/05/23 amlodipine 5 mg tablet 1 tab PO QAM 10/19/20 05/05/23 fluticasone propionate 220 1 puff PO BID 10/19/20 05/05/23 mcg/actuation HFA aerosol inhaler (Flovent HFA) metoprolol succinate 25 mg 0.5 tab PO QAM 10/25/20 05/05/23 tablet,extended release 24 hr cholecalciferol (vitamin D3) 25 25 mcg PO QAM 10/12/22 05/05/23 mcg (1,000 unit) capsule (Vitamin D3) insulin glargine 100 unit/mL (3 60 unit subcut DAILY 10/12/22 05/05/23 mL) subcutaneous pen (Lantus Solostar U-100 Insulin) insulin lispro 100 unit/mL 20 unit subcut TID 10/12/22 05/05/23 subcutaneous pen lidocaine 5 % topical patch 1 patch topical BID PRN Pain 10/12/22 05/05/23 pen needle, diabetic 31 gauge x #1,200 ea 10/12/22 01/10/2312/12 (UltiCare Pen Needle) pioglitazone 15 mg tablet 15 mg PO QAM 10/12/22 05/05/23 prazosin 2 mg capsule 2 mg PO BEDTIME 10/12/22 05/05/23 quetiapine 100 mg tablet 150 mg PO BEDTIME 05/05/23 05/05/23 quetiapine 25 mg tablet 25 mg PO BID PRN Sleep 05/05/23 05/05/23 albuterol sulfate 2.5 mg/3 mL 2.5 mg inhalation Q4-6H PRN 09/10/23 (0.083 %) solution for nebulization aspirin 81 mg tablet,delayed 81 mg PO QPM 09/24/23 release ropinirole 0.5 mg tablet 0.5 mg PO BEDTIME 09/24/23 rosuvastatin 5 mg tablet 5 mg PO QPM 09/24/23 semaglutide 0.25 mg or 0.5 mg (2 0.5 mg subcut QWEEK 09/24/23 mg/3 mL) subcutaneous pen injector ([employer]ars) Previous Rx's Medication Instructions Recorded pyridoxine (vitamin B6) 100 mg 100 mg PO DAILY #90 tabs 10/12/22 tablet esomeprazole magnesium 20 mg 20 mg PO BID 30 days #60 caps 10/26/22 capsule,delayed release hydromorphone 2 mg tablet 2 mg PO Q4-6H PRN pain #10 tabs 05/06/23 (Dilaudid) ketorolac 10 mg tablet 10 mg PO TID PRN pain 5 days #15 06/27/23 tabs tamsulosin 0.4 mg capsule (Flomax) 0.4 mg PO DAILY #14 caps 06/27/23 doxycycline hyclate 100 mg capsule 100 mg PO BID #14 caps 08/21/23 nitrofurantoin 100 mg PO BID 5 days #10 caps 09/25/23 monohydrate/macrocrystals 100 mg capsule (Macrobid) phenazopyridine 100 mg tablet 100 mg PO TID PRN pain 6 doses #6 09/25/23 (Pyridium) tabs Allergies Allergy/AdvReac Type Severity Reaction Status Date / Time morphine AdvReac Abdominal Verified 09/25/23 09:32 Pain Review of Systems Review of Systems Constitutional : No Fever, No Chills ENT/Mouth : No sore throat Eyes: No Eye Pain, No Swelling, No Redness Cardiovascular : No Chest Pain, No SOB Respiratory : No Cough, No Sputum, No Wheezing Gastrointestinal : no Nausea, no Vomiting, No Diarrhea, positive abdominal pain Genitourinary : positive Dysuria, positive urinary frequency, no Hematuria, positive Flank Pain Musculoskeletal : No joint pain, No Myalgias Skin : No Skin Lesions, No rash Neuro : No Weakness, No Numbness, No Headache Psych : No Anxiety/Panic, No Depression Heme/Lymph: No Bruising, No Lymphadenopathy Endocrine : No Polyuria, No Polydipsia All other systems reviewed and are negative [facility] Past Medical History Attestation statement: The following information was validated with the patient. 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 Mother Diabetes mellitus Sister Diabetes mellitus Brother No problems noted. Paternal Uncle Colon cancer Social History Social History Household Members: None Housing: Apartment Do you presently have visiting nurse or other home services: No Alcohol intake: current Alcohol intake frequency: a few times a month Alcohol type: beer Patient Tobacco Use Status: Current someday Tobacco user Tobacco use type: Cigarette Cigarettes Per Day: 3 Years Smoked: 15 Advance Directives: No Advance Directives Information Provided: Yes service: No Physical Exam ED Vital Signs: Vital Signs - 24 hr 09/25/23 09:28 Temperature 98.6 F Pulse Rate 86 Respiratory Rate 20 Blood Pressure 140/89 H Pulse Oximetry 98 Oxygen Delivery Method Room Air BMI result Body Mass Index 30.7 Appearance: Alert. Oriented X3. No acute distress. Eyes: Pupils equal, round and reactive to light. ENT: Pharynx normal. Neck: Normal inspection. Neck supple. CVS: Normal heart rate and rhythm. Pulses normal. Respiratory: No respiratory distress. Breath sounds normal. Abdomen: Soft and moderate suprapubic ttp no rebound or guarding Skin: Skin warm and dry. Normal skin color. Normal skin turgor. Extremities: No lower extremity edema. No calf ttp Neuro: Oriented X 3. No motor deficit. No sensory deficit. Medical Decision Making Medical Decision Making MDM Narrative: PMH of hep C, opiate use disorder, aspiration pneumona, asthma, PUD, anemia, HTN here with 1 year of suprapubic pain, bladder pain, R flank pain at this time labs, UA for infection given her dysuria and urinary frequency along with CT scan for renal colic. Differential Diagnosis Differential Diagnoses: The differential diagnosis associated with the presentation includes chronic pain, chronic cystitis, renal colic Admission/Observation Consideration of admission/observation: Escalation of care including admission/observation considered labs other than plts which we talked about work up reassuring will start on bladder spasm meds and macrobid just in case of cystitis Lab Data [facility] Lab Attestation statement: I reviewed the patient's lab results. Independent Interpretation I performed an independent interpretation of an: CT Scan (no acute cause of her pain) Radiology Impression Discussion of test interpretation with radiology: I have reviewed the radiologist's reading. External Record Review External record reviewed: Inpatient record and Office record Prescription Management I considered prescription management with: Other Discharge Plan Discharge Clinical Impression: Cystitis, Bladder spasms Patient Disposition: Home, Self-Care Instructions: Pelvic Pain in Women (ED) Additional Instructions: return for fevers, worsening pain, no improvement, inability to eat or drink, bleeding, easy bruising. your platelets were low please make sure your doctor monitors this. Regresa por fiebre, empeoramiento del dolor, falta de mejor?a, incapacidad para comer o beber, sangrado y aparici?n de moretones con facilidad. katiuska plaquetas estaban bajas, aseg?rese de que palmer m?dico controle esto. Prescriptions: New nitrofurantoin monohyd/m-cryst [Macrobid] 100 mg capsule 100 mg PO BID 5 Days Qty: 10 0RF Rx Instructions: must administer with a meal/food phenazopyridine [Pyridium] 100 mg tablet 100 mg PO TID PRN (Reason: pain) Qty: 6 0RF No Action amlodipine 5 mg tablet 1 tab PO QAM fluticasone propionate [Flovent HFA] 220 mcg/actuation HFA aerosol inhaler 1 puff PO BID metoprolol succinate 25 mg tablet extended release 24 hr 0.5 tab PO QAM quetiapine 25 mg tablet 25 mg PO BID PRN (Reason: Sleep) quetiapine 100 mg Tablet 150 mg PO BEDTIME hydromorphone [Dilaudid] 2 mg tablet 2 mg PO Q4-6H PRN (Reason: pain) Qty: 10 0RF Rx Instructions: Partial Fill upon patient request. tamsulosin [Flomax] 0.4 mg capsule 0.4 mg PO DAILY Qty: 14 0RF ketorolac 10 mg tablet 10 mg PO TID PRN (Reason: pain) 5 Days Qty: 15 0RF doxycycline hyclate 100 mg capsule 100 mg PO BID Qty: 14 0RF gabapentin 300 mg capsule 300 mg PO BID lisinopril 40 mg tablet 40 mg PO DAILY esomeprazole magnesium 20 mg capsule,delayed release(DR/EC) 20 mg PO BID 30 Days Qty: 60 3RF insulin glargine [Lantus Solostar U-100 Insulin] 100 unit/mL (3 mL) insulin pen 60 unit subcut DAILY (DME) pen needle, diabetic [UltiCare Pen Needle] 31 gauge x 5/16 needle See Rx Instructions .ROUTE QID Qty: 1200 Rx Instructions: As directed insulin lispro 100 unit/mL insulin pen 20 unit subcut TID prazosin 2 mg capsule 2 mg PO BEDTIME lidocaine 5 % adhesive patch,medicated 1 patch topical BID PRN (Reason: Pain) pioglitazone 15 mg tablet 15 mg PO QAM cholecalciferol (vitamin D3) [Vitamin D3] 25 mcg (1,000 unit) capsule 25 mcg PO QAM pyridoxine (vitamin B6) 100 mg tablet 100 mg PO DAILY Qty: 90 3RF albuterol sulfate 2.5 mg /3 mL (0.083 %) solution for nebulization 2.5 mg inhalation Q4-6H PRN ropinirole 0.5 mg tablet 0.5 mg PO BEDTIME Ozempic 0.25 mg or 0.5 mg (2 mg/3 mL) pen injector 0.5 mg subcut QWEEK rosuvastatin 5 mg tablet 5 mg PO QPM aspirin 81 mg tablet,delayed release (DR/EC) 81 mg PO QPM Print Language: Turkmen
[2023-09-25 11:09] VITALS: BP 146/70; PULSE 74; RESP 18; TEMP 36.2; O2SAT 97
[2023-09-25 11:11] LABS: MANUAL DIFF FLAG NO
[2023-09-25 11:12] LABS: Appearance Urine Cloudy; Basophils Percent Auto 0.5 % (0-2); Color Urine Yellow; Eosinophils Absolute Auto 0.1 X10*3/uL (0.0-0.4); Eosinophils Percent Auto 2.4 % (0-4); Glucose Urine UA Negative (Negative); Hematocrit 34.3 % (37.0-47.0); Hemoglobin 11.6 g/dl (12.0-16.0); Imm Gran Abs Auto 0.01 X10*3/uL (0.00-0.03); Imm Gran Pct Auto 0.3 % (0.0-0.4); Leukocyte Esterase Urine Trace (Negative); Lymphocytes Absolute Auto 1.2 X10*3/uL (1.2-4.9); Lymphocytes Percent Auto 31.7 % (20-40); Mean Corpuscular HGB Conc 33.8 g/dl (31.0-35.0); Mean Corpuscular Hemoglobin 28.3 pg (27.0-33.0); Mean Corpuscular Volume 83.7 fL (80.0-98.0); Mean Platelet Volume 9.9 fL (9.4-12.3); Monocytes Absolute Auto 0.5 X10*3/uL (0.1-1.2); Monocytes Percent Auto 13.2 % (2-11); Neutrophils Percent Auto 51.9 % (45-73); Nitrite Urine Negative (Negative); Red Cell Distribution Width 13.2 % (11.0-16.0); Specific Gravity - Urine 1.025 (1.005-1.025); UMIC TRIGGER UACC YES; Urine Blood Negative (Negative); Urine Ketones Negative (Negative); Urine Protein Trace mg/dL (Neg-Trace); White Blood Count 3.8 X10*3/uL (4.8-10.8)
[2023-09-25 11:15] LABS: Bacteria Urine 4+ (None Seen); RBC Urine 0-2 /HPF (0-2); Squamous Epithelial Cell Urine >20 /HPF (0-2); WBC Urine 0-5 /HPF (0-5)
[2023-09-25 11:19] LABS: Platelet Count 96 X10*3/uL (160-400)
[2023-09-25 11:27] LABS: Anion Gap 8 (12-20); Blood Urea Nitrogen 14 mg/dL (9-16); Calcium 9.2 mg/dL (8.4-10.2); Carbon Dioxide 27 mmol/L (22-29); Chloride 108 mmol/L (96-108); Creatinine Clr Calc Pharmacy 64.9; Estimated Glomerular Filt Rate > 60; Glucose Random 153 mg/dL (60-115); Potassium 3.4 mmol/L (3.3-5.1); Sodium 140 mmol/L (135-145)
[2023-09-25 11:28] LABS: Alanine Aminotransferase 61 U/L (0-31); Albumin Level 3.5 g/dL (3.5-5.0); Alkaline Phosphatase 149 U/L (39-117); Aspartate Amino Transferase 45 U/L (5-31); Bilirubin Direct 0.1 mg/dL (0.0-0.5); Bilirubin Total 0.3 mg/dL (0.0-1.0); Lipase 19 U/L (8-78)
== END 2023-09-25 12:41 | disposition home or self-care (01) ==
PROVIDERS: Emergency Provider Emergency Medicine; PCP Nurse Practitioner Primary Care
DX: N30.90 Cystitis, unspecified without hematuria (principal); N32.89 Other specified disorders of bladder; Z79.899 Other long term (current) drug therapy
CPT/HCPCS: 36415; 74176; 80048; 80076; 81001; 83690; 85025; 99283; 99284

== ENCOUNTER 2023-10-22 18:07 | Outpatient (REF) | payer MEDICAID, SELFPAY ==
[2023-10-23 11:56] LABS: BV Int Neg Control Negative (Negative); BV Int Pos Control Positive (Positive)
== END 2023-10-22 18:08 | disposition home or self-care (01) ==
LOC: HO.HHCLNP 18:07
PROVIDERS: Visit Provider Advanced Practice Midwife
DX: N94.9 Unspecified condition associated with female genital organs and menstrual cycle (principal); R35.0 Frequency of micturition
CPT/HCPCS: 87086; 87480; 87510; 87660

== ENCOUNTER 2023-11-01 09:30 | Outpatient (AMB) | payer MEDICAID, SELFPAY ==
--- NOTE | 2023-11-01 09:43 | A.OFFVIS_ITS ---
Vital Signs 11/01/23 09:44 Height 5 ft 4 in Weight 176 lb BMI 30.2 BP 131/73 Blood Pressure Location Lt brachial Position Sitting Pulse 71 Intake Visit Reasons: Gastroesophageal reflux disease (GERD) Intake Note: Patient follow up for GERD, Cirrhosis and UA results. Patient cc: GERD with burning sensation, N/V on and off, abdominal pain with bloating, between diarrhea and constipation. Surgical Brace Maker Required: Yes Surgical Brace Maker Name: [facility] interpeter Accompanied by: Self / Same As Patient Allergies morphine Adverse Reaction (Verified 02/15/24 13:29) Abdominal Pain Medication List - Last Reconciled 11/01/23 by Ashlie Maldonado MD albuterol sulfate 2.5 mg inhalation Q4-6H PRN amlodipine 1 tab PO QAM aspirin 81 mg PO QPM cholecalciferol (vitamin D3) (Vitamin D3) 25 mcg PO QAM doxycycline hyclate 100 mg PO BID esomeprazole magnesium 20 mg PO BID 30 days fluticasone propionate 220 mcg/actuation (Flovent HFA) 1 puff PO BID gabapentin 300 mg PO BID hydromorphone (Dilaudid) 2 mg PO Q4-6H PRN insulin glargine (Lantus Solostar U-100 Insulin) 60 units subcut DAILY insulin lispro 20 units subcut TID ketorolac 10 mg PO TID PRN 5 days lidocaine 5% 1 patch topical BID PRN lisinopril 40 mg PO DAILY metoprolol succinate ER 0.5 tabs PO QAM nitrofurantoin monohyd/m-cryst 100 mg (Macrobid) 100 mg PO BID 5 days pen needle, diabetic (UltiCare Pen Needle) As directed phenazopyridine (Pyridium) 100 mg PO TID PRN 6 doses pioglitazone 15 mg PO QAM prazosin 2 mg PO BEDTIME pyridoxine (vitamin B6) 100 mg PO DAILY quetiapine 150 mg PO BEDTIME quetiapine 25 mg PO BID PRN ropinirole 0.5 mg PO BEDTIME rosuvastatin 5 mg PO QPM semaglutide (Ozempic) 0.5 mg subcut QWEEK tamsulosin (Flomax) 0.4 mg PO DAILY HPI HPI Gastroesophageal reflux disease (GERD): Details: GI clinic visit for this 58 year old Sudanese speaking F (refuses seismic interpreter)for FU of 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 12/01/22 patient reports she started taking the Mavyret on November 06 and d/c'd it on November 13 due to throbbing headaches she was constantly getting. patient r eports that she was advised to continue taking medication and that headache would subside. patient reports that this was not the case. patient reports that she was taking Tylenol 650mg and there was no improvement. she states that she cannot take too much Tylenol due to her Cirrhosis. patient states she was awaiting appointment to further discuss and receive your recommendation/suggestions. patient also reported fatigue, and trouble sleeping. IMAGING STUDIES:? 08/30/23 ABD US SHOWED: Findings consistent with hepatic cirrhosis with elevated portal pressures and varices. No focal hepatic mass identified. Left pleural effusion. 07/2022 ABD US SHOWED: 1.? Cirrhotic liver with borderline splenomegaly. 2.? Nonobstructive left renal calculi. 3.? Nonobstructive right renal calculi versus vascular calcifications. 4.? Status post cholecystectomy. 10/27/20 ABD US SHOWED:Three echogenic nonobstructive stones left kidney.Hepatic steatosis with nodular appearance and mild hepatomegaly most suggestive of cirrhosis. Similar findings were seen on the previous ultrasound exam 12/10/2013. ENDOSCOPIC STUDIES:?05/05/22 EGD SHOWED: ESOPHAGUS: GE junction at 36 cms. No varices, esophagitis or Harrison's. STOMACH:? Mild portal gastropathy and antral erythema. Biopsies were obtained. No gastric varices and grade 2 flap valve on retroflexed examination of the cardia. DUODENUM: A diverticulum seen in the medial wall of the bulb. Normal descending duodenum - biopsies were obtained to check for celiac sprue. Plan:? Patient has an appointment on 07/27/22 in the GI Clinic with? Ashlie Maldonado M.D. BIOPSES SHOWED: A.? Small bowel, biopsy:? Small intestinal mucosa with focal mildly increased intraepithelial lymphocytes and preserved villous architecture.? See comment. B.? Stomach, antrum, biopsy:? Antral-type and oxyntic mucosa with moderate chronic, focally active, inflammation and focal intestinal metaplasia; no dysplasia identified; no Helicobacter organisms seen. COMMENT: The findings in the duodenum are non-specific.? The differential diagnosis is broad and includes infection (e.g. viral or H. pylori), medication/drugs (e.g. NSAIDs), gluten sensitivity/celiac disease, bacterial overgrowth, tropical sprue, immunodeficiency syndromes (e.g. IgA deficiency, CVID), autoimmune enteropathy, Crohns and collagen vascular disease, among others.? Please correlate with clinical and other laboratory findings. TODAY'S VISIT: [facility] Nurses Educator, Macho Patient cc: GERD with burning sensation, N/V on and off, abdominal pain with bloating, between diarrhea and constipation. Not doing too good - burning in the opening of the stomach. Complains of RUQ pain. Prescribed Famotidine which has been helping Takes it in the morning and the afternoon when she notes burning in the stomach - does not take it every day Pain improves after she has a BM She takes a medication if no BM x 3 days. Pt tearful due to abdominal pain - 04/08 RUQ pain radiating down into the bladder. Complains of pain and pressure when she urinates - hx of urinary obstruction due to renal stones. Pt complains of pain since she had a cystoscopy in 05/21. PAST VISITS: Took Mavyret for 1 week and stopped due to persistent GOMEZ's Has a hx of HAs before starting Mavyret. GOMEZ got worse after she started the Mavyret. Usually has HAs at night when she is trying to go to sleep. Takes Tyelenol with partial improvement. Wakes up with GOMEZ the following day. Takes a shower and the GOMEZ goes away. Denies dysphagia to food Takes Esomeprazole twice daily. Pt is being scheduled in [place] for a breast bx due to bleeding from the rt nipple. Denies any change in GI symptoms Continues to have burning, bloating, constipation and diarrhea Complains of RUQ pain radiating to the back. Pain is constant and takes tylenol. Notes intermittent diarrhea - usually once a week. Hx of PUD.? No ulcer on FU EGD. Complains of difficulty urinating and advised to schedule a FU appt with Dr Hubbard Complains of right flank pain for the past 4 to 5 days radiating anteriorly - has a hx of renal stones and was advised to FU with Urology. Intermittent abdominal bloating. Has a BM daily and notes occasional diarrhea Scheduled for an EGD in 07/19 and did not come for the appt since she was not feeling good. She would like to reschedule. Pt was seen by Dr Michele (ID) for Hepatitis C and she was prescribed Mavyret x 8 weeks Pt states she unable to start treatment since ? medication was not covered. She will fax the letter from her Insurance to the GI clinic Noted GOMEZ and diarrhea after she was prescribed medications for DM. Diagnosed with Hepatitis C ? 10 yrs ago. Denies IVDA.? Had blood transfusion several yrs ago. Intermittent fatigue and GOMEZ. Patient denies symptoms of heartburn, dysphagia, nausea, vomiting, change in appetite.? Weight fluctuates. Chronic constipation and diet related diarrhea. Denies recent change in bowel habits, black stools or rectal bleeding. Patient denies major cardiac or pulmonary problems, loud snoring or sleep apnea Denies problems with anesthesia in the past. Denies being on chronic anticoagulation. Patient denies known family history of liver disease, colon polyps, or other GI malignancies. Paternal uncle had colon cancer and of the disease. PAST EGD/COLONOSCOPY:? EGD a long time ago showed stomach ulcers. Never had a colonoscopy. PAST GI HISTORY BY REVIEW OF MEDICAL RECORDS: 04/2018 Pt was seen in the GI clinic by QUENTIN Branch: 53 yo female returns for a scheduled office visit for cirrhosis and hepatitis? C.?track manager Ingrid Miller interprets for todays'? visit.?Patient has been seen in the past for treatment of hepatitis C? but was inconsistent in keeping appointments and never received treatment. She? had been scheduled for an EGD in 2016 but study was cancelled due to blood? sugars too high. Has not been seen since 2016. ?Patient comes today as? she is asking for an EGD and colonoscopy to be performed. States that the clinic? she attends has ordered Amanda to treat her Hepatitis C but patient requests? that the EGD be performed before she starts the treatment. States that she's had? an ulcer in the past and wants to make sure her stomach was ok. Additionally she? states that she hasn't had a colonoscopy and would like that to be performed? before starting treatment. ?Patient states that she was recently seen? in the ER for back pain and was told that she had a pinched nerve. Reviewing the? CT notes that she had two kidney stones- a 2 and a 3mm on the right and an 8mm? on the left. Her WBC count was at 17 and there was blood in her urine. The Ct? also noted that the surface of her liver was c/w cirrhosis. Is aware that she? needs a repeat diagnostic study every 6 months for HCC surveillance. Liver labs? reveal AST 41, ALT 54, GGT 55, alk phos 155. ?The CT also reveal that? she has diverticulosis and was unaware. States that she moves her bowels nearly? every day but does have intermittent straining and will have blood on the? tissue. ?No previous colonoscopy. No family h/o colon cancer. Patient? is diabetic and states that she lost a lot of weight and remarks that her? diabetes is better controlled. 1.?Cirrhosis of liver without ascites, unspecified hepatic cirrhosis? type ?Notes: Patient has cirrhosis- most likely from Hep C. Is aware? that she will need q6 months HCC surveillance.?? 2.?H/O gastric ulcer?Notes: Patient has a h/o gastric ulcer? in 2000- is concerned that she wants to make sure her stomach is healthy before? [facility]. 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 Mother Diabetes mellitus Sister Diabetes mellitus Brother No problems noted. Paternal Uncle Colon cancer Social History Household Members: None Housing: Apartment Do you presently have visiting nurse or other home services: Yes Alcohol intake: current Alcohol intake frequency: former alcohol drinker Alcohol type: beer Patient Tobacco Use Status: Current everyday Tobacco user Tobacco use type: Cigarette Cigarettes Per Day: 2 Years Smoked: 15 service: No Physical Exam Vital Signs: Last Vital Signs Pulse 71 11/01/23 09:44 BP 131/73 11/01/23 09:44 BMI result Body Mass Index 30.2 Const General: healthy appearing and no acute distress Nutritional Appearance: obese Orientation/consciousness: patient oriented x3 Limitations: language barrier HEENT Head: Yes normal to inspection Ears: hearing grossly normal bilaterally Eyes Sclerae: sclerae normal Pupils: Equal, round and reactive pupils present Neck Neck: Yes normal visual inspection Chest Chest palpation & inspection: normal inspection of the chest Resp Effort & Inspection: normal respiratory effort Auscultation: clear to auscultation bilaterally Cardio Palpation: normal PMI Rate: regular rate Rhythm: regular rhythm Heart sounds: S1 normal heart sound present, S2 normal heart sound present and no murmurs GI Palpation (GI): Soft to palpation, nontender and No hepatosplenomegaly present Auscultation: normal bowel sounds Rectal Exam - Female: deferred Skin General skin exam: no rashes or lesions noted Neuro General: patient oriented x3, gait normal and moves all extremities Cranial nerves: Yes Equal, round and reactive pupils present Psych Appearance: grossly normal Mental Status: mental status grossly normal Assessment & Plan Assessment & Plan (1) Hepatitis C: Comment: She has chronic active hepatitis-C. She has not completed any treatment. She is concerned about trouble swallowing pills and duration of treatment course. I did explain the severity of hepatitis C and the lack of any intramuscular or IV treatment options so patient said she would try to swallow pills and take pills with food. She is also medication for hypercholesterolemia which may have some interaction with glecaprevir/pibrentasvir which is Mavyret She has no evidence of prior liver damage Code(s): B19.20 - Unspecified viral hepatitis C without hepatic coma Category: Medical (2) Cirrhosis: Code(s): K74.60 - Unspecified cirrhosis of liver Category: Medical Plan 58 YF with asthma, Htn, DM followed in GI for cirrhosis complicated by mild thrombocytopenia (Liver Fibrosis score 0.73, Liver Fibrosis stage F3- F4) due to hepatitis-C infection (possibly acquired by a blood transfusion several yrs ago). Patient denies having a colonoscopy in the past. Patient has not had treatment for hepatitis-C since she has trouble swallowing pills. On 12/01/22 @ 13:29 Sarah Haddad Wrote To Ashlie Maldonado telephone call was placed to patient to inquire about below. patient reports she started taking the Mavyret on November 06 and d/c'd it on November 13 due to throbbing headaches she was constantly getting. patient repor ts that she was advised to continue taking medication and that headache would subside. patient reports that this was not the case. patient reports that she was taking Tylenol 650mg and there was no improvement. she states that she cannot take too much Tylenol due to her Cirrhosis. patient states she was awaiting appointment to further discuss and receive your recommendation/suggestions. patient also reported fatigue, and trouble sleeping. 05/05/22 EGD was performed (FU of PUD) and findings as noted above Pt was seen by Dr Michele (ID) for Hepatitis C and she was prescribed Mavyret x 8 weeks Pt states she unable to start treatment since she is unable to swallow large pills/ ? medication was not covered. (Checked with [facility] pharmacist - Mavyret is available in pellet form containing Glecaprevir 50 mg and pibrentasvir 20 mg Pt can mix with peanut butter or [place] yogurt - she will need to take 6 packets daily. New prescription was sent for Mavyret. REDUCING THE RISK OF LIVER PROGRESSION:? patient was advised to completely avoid use of alcohol and lose weight. ?HCC SURVEILLANCE: ? the patient is at risk of developing hepatocellular carcinoma given the presence of cirrhosis and need 6 monthly imaging surveillance with either abdominal ultrasound (US) or multiphase cross-sectional imaging (CT or MRI).? Last Abd CT SCAN in 12/2021 and abd US in Jul, 2022 had shown no focal liver lesions suspicious of HCC.? SURVEILLANCE FOR GASTROESOPHAGEAL VARICES: No varices noted on EGD in 04/2022. QUESTION OF LIVER TRANSPLANTATION: ? As she has never had any hepatic decompensation, and continues to have good hepatic synthetic function with meld score of 7, liver transplantation does not need to be considered at this time. 11/01/23 Not doing too good - burning in the opening of the stomach and RUQ pain. Prescribed Famotidine which has been helping - does not take it every day Pt? will be scheduled for a colonoscopy for colon cancer screening - scheduled 02/15/24 FU in 4 month Medications: New famotidine 20 mg PO BID 180 tabs 3RF 90 days K21.9 - Gastro-esophageal reflux disease without esophagitis sennosides-docusate sodium 8.6-50 mg (Senna Plus) 2 tab-caps (2 x 8.6-50 mg) PO BEDTIME 120 caps 1RF 60 days Coding Level of Care Code Est Pt Level 4 (13373) Diagnoses Hepatitis C B19.20 Cirrhosis K74.60 Time Spent (min) 23
[2023-11-01 09:44] VITALS: BP 131/73; PULSE 71; BMI 30.2
== END 2023-11-01 11:19 | disposition home or self-care (01) ==
PROVIDERS: PCP Nurse Practitioner Primary Care; Visit Provider Internal Medicine Gastroenterology
DX: B19.20 Unspecified viral hepatitis C without hepatic coma (principal); K74.60 Unspecified cirrhosis of liver
CPT/HCPCS: 99499

== ENCOUNTER → 2023-11-01 09:30 | Outpatient (BNVA) | payer MEDICAID, SELFPAY | PROVIDERS: PCP Nurse Practitioner Primary Care; Visit Provider Internal Medicine Gastroenterology ==

== ENCOUNTER 2023-11-12 10:45 | Inpatient (IN) | payer MEDICAID, SELFPAY ==
--- NOTE | ~2023-11-12 | XR_ITS ---
EXAMINATION: XR CHEST CLINICAL INFORMATION: NSTEMI. COMPARISON: 09/20/2023. TECHNIQUE: Frontal view of the chest was obtained. FINDINGS: Lung volumes are low. Heart size is normal. There is no gross pneumothorax. No pleural effusion. No focal consolidation to suggest pneumonia. XR/XR chest 1V IMPRESSION: Low lung volumes. No gross evidence of pneumonia.
--- NOTE | ~2023-11-12 | CT_ITS ---
EXAMINATION: CT ABDOMEN AND PELVIS WITHOUT CONTRAST CLINICAL INFORMATION: Left flank pain. History of kidney stone. COMPARISON: CT abdomen pelvis dated 09/25/2023. TECHNIQUE: Multidetector volumetric imaging was performed from the superior aspect of the liver through the pubic symphysis. Sagittal and coronal reformatted images were obtained on the technologist's workstation. This CT examination was performed using dose optimization techniques as appropriate, variously including the following: *Automated exposure control *Adjustment of mA and/or kV according to patient size (this includes techniques or standardized protocols for targeted exams where dose is matched to indication/reason for exam; i.e. extremities or head) *Use of iterative reconstruction technique DLP: 606 mGy-cm FINDINGS: LUNG BASES: There is a 2 mm nodule within the right middle lobe. No consolidation at the lung bases. No pleural effusion. LIVER, GALLBLADDER, AND BILIARY TREE: The liver is cirrhotic. No intrahepatic biliary ductal dilation. The gallbladder is surgically absent. PANCREAS: Unremarkable. SPLEEN: The spleen remains enlarged. ADRENAL GLANDS: Unremarkable. KIDNEYS AND URETERS: The kidneys are normal in size, shape, and attenuation. No hydronephrosis or hydroureter. There is a stable calculus versus cluster of calculi within the lower pole of the left kidney measuring up to 5.4 mm. No perinephric stranding. BLADDER: Unremarkable. GASTROINTESTINAL TRACT: The small bowel and colon are normal in caliber. There is no pericolonic inflammatory stranding. The appendix is normal in appearance. ABDOMINAL WALL: Small fat-containing umbilical hernia. LYMPH NODES: No lymphadenopathy. VASCULAR: No abdominal aortic aneurysm. PELVIC VISCERA: Unremarkable. No adnexal mass. OSSEOUS STRUCTURES: Degenerative changes of the spine are redemonstrated. CT/CT abdomen pelvis wo IV con IMPRESSION: There is a stable nonobstructive calculus versus cluster of calculi within the lower pole of the left kidney measuring up to 5.4 mm. The liver is cirrhotic. There is splenomegaly. There is a 2 mm nodule within the right middle lobe. According to the UPDATED 2017 Fleischner Society recommendations, the advised follow-up imaging for solid nodules < 6 mm is: LOW RISK PATIENT: No routine follow-up. HIGH RISK PATIENT: Optional CT at 12 months. Fleischner guidelines were followed.
--- NOTE | ~2023-11-12 | NM_ITS ---
Myocardial perfusion study Indication: Atypical chest pain with elevated troponins to evaluate for myocardial ischemia Technique: The patient was brought in for a Lexiscan perfusion study on 11/14/2023. Patient performed low-level exercise and was injected 0.4 mg of Lexiscan intravenously. Within a minute of injection, 25 mCi of sestamibi was given intravenously. Images were obtained using the SPECT gamma camera interlaced with the gating device. Images were obtained in supine position. Resting perfusion study was performed on 11/13/2023. Patient was administered 25 mCi of sestamibi intravenously at rest. Images were then obtained in supine position. Images obtained with and without CT attenuation. Total DLP 154 mGy-cm. Images were processed with the software and compared side to side in short axis, horizontal long axis and vertical long axis views. Findings: The stress perfusion study showed non attenuated images show normal uptake of radiotracer in all segments of LV myocardium. Attenuated corrected images show minimal thinning of the distal septum of the LV myocardium. There is suggestion of left ventricle hypertrophy.. The gated study shows reduced LV systolic function with calculated LVEF of 45%, although visually LV ejection fraction appears to be within normal range. LV cavity is normal in size. The gated study shows normal systolic wall thickening and contraction of segments. Resting study shows no change in perfusion compared to stress perfusion study. Gating at rest reveals O systolic wall motion with ejection fraction at 36%. The findings are consistent with normal myocardial perfusion. NM/NM javier perf SPECT rest & str Impression: 1. Myocardial perfusion imaging study shows normal myocardial perfusion 2. Gated LVEF is 45%, although visually there are LV systolic function appears to be within normal range 3. Transient ischemic dilatation not present EKG is nondiagnostic for ischemia
[2023-11-12 10:55] VITALS: BP 171/80; PULSE 69; RESP 18; TEMP 36.6; O2SAT 98; BMI 30.9
--- NOTE | 2023-11-12 10:58 | ECG_ITS ---
Test Reason : CP Blood Pressure : / mmHG Vent. Rate : 058 BPM Atrial Rate : 058 BPM P-R Int : 150 ms QRS Dur : 084 ms QT Int : 428 ms P-R-T Axes : 040 -25 140 degrees QTc Int : 420 ms Sinus bradycardia Left ventricular hypertrophy with repolarization abnormality ( R in aVL , Marquez product , Romhilt-Putnam ) Cannot rule out Septal infarct (cited on or before 27-OCT-2020) Abnormal ECG When compared with ECG of 27-OCT-2020 12:17, Premature ventricular complexes are no longer Present Referred By: Generic ED Physician Electronically Signed By:JENNIE ARCHER
[2023-11-12 14:29] VITALS: BP 146/77; PULSE 66; RESP 13; O2SAT 98
--- NOTE | 2023-11-12 14:40 | ED.CHESTPAIN ---
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 1. Left flank pain that radiates to the right flank and goes around abdomen for few weeks, patient stated she had history of kidney stone that she feels that is moving now, no dysuria, no frequency urination, no hematuria, no fever, chills. 2. Been having pain to bilateral arms mostly at nighttime and feels like Pins and needles affecting the whole arm bilaterally,declined any weakness or numbness, no trauma, no heavy lifting, no neck pain or injury. 3. Headache that is intermittent for the past few months, no slurred speech, no weakness, no numbness, no blurry vision, no syncope or LOC. Patient was evaluated at [facility] 3 weeks ago reported unremarkable ER workup at [facility]. Related Data Home Medications ?Medication ?Instructions ?Recorded ?Confirmed gabapentin 300 mg capsule 300 mg PO BID 07/28/20 11/01/23 lisinopril 40 mg tablet 40 mg PO DAILY 07/28/20 11/01/23 amlodipine 5 mg tablet 1 tab PO QAM 10/19/20 11/01/23 fluticasone propionate 220 1 puff PO BID 10/19/20 11/01/23 mcg/actuation HFA aerosol inhaler (Flovent HFA) metoprolol succinate 25 mg 0.5 tab PO QAM 10/25/20 11/01/23 tablet,extended release 24 hr cholecalciferol (vitamin D3) 25 25 mcg PO QAM 10/12/22 11/01/23 mcg (1,000 unit) capsule (Vitamin D3) insulin glargine 100 unit/mL (3 60 unit subcut DAILY 10/12/22 11/01/23 mL) subcutaneous pen (Lantus Solostar U-100 Insulin) insulin lispro 100 unit/mL 20 unit subcut TID 10/12/22 11/01/23 subcutaneous pen lidocaine 5 % topical patch 1 patch topical BID PRN Pain 10/12/22 11/01/23 pen needle, diabetic 31 gauge x #1,200 ea 10/12/22 11/01/2312/12 (UltiCare Pen Needle) pioglitazone 15 mg tablet 15 mg PO QAM 10/12/22 11/01/23 prazosin 2 mg capsule 2 mg PO BEDTIME 10/12/22 11/01/23 quetiapine 100 mg tablet 150 mg PO BEDTIME 05/05/23 11/01/23 quetiapine 25 mg tablet 25 mg PO BID PRN Sleep 05/05/23 11/01/23 albuterol sulfate 2.5 mg/3 mL 2.5 mg inhalation Q4-6H PRN 09/10/23 11/01/23 (0.083 %) solution for nebulization aspirin 81 mg tablet,delayed 81 mg PO QPM 09/24/23 11/01/23 release ropinirole 0.5 mg tablet 0.5 mg PO BEDTIME 09/24/23 11/01/23 rosuvastatin 5 mg tablet 5 mg PO QPM 09/24/23 11/01/23 semaglutide 0.25 mg or 0.5 mg (2 0.5 mg subcut QWEEK 09/24/23 11/01/23 mg/3 mL) subcutaneous pen injector (Ozempic) Previous Rx's ?Medication ?Instructions ?Recorded pyridoxine (vitamin B6) 100 mg 100 mg PO DAILY #90 tabs 10/12/22 tablet esomeprazole magnesium 20 mg 20 mg PO BID 30 days #60 caps 10/26/22 capsule,delayed release hydromorphone 2 mg tablet 2 mg PO Q4-6H PRN pain #10 tabs 05/06/23 (Dilaudid) ketorolac 10 mg tablet 10 mg PO TID PRN pain 5 days #15 06/27/23 tabs tamsulosin 0.4 mg capsule (Flomax) 0.4 mg PO DAILY #14 caps 06/27/23 doxycycline hyclate 100 mg capsule 100 mg PO BID #14 caps 08/21/23 nitrofurantoin 100 mg PO BID 5 days #10 caps 09/25/23 monohydrate/macrocrystals 100 mg capsule (Macrobid) phenazopyridine 100 mg tablet 100 mg PO TID PRN pain 6 doses #6 09/25/23 (Pyridium) tabs famotidine 20 mg tablet 20 mg PO BID 90 days #180 tabs 11/01/23 sennosides 8.6 mg-docusate sodium 2 tab-cap (2 x 8.6-50 mg) PO 11/01/23 50 mg capsule (Senna Plus) BEDTIME 60 days #120 caps Allergies Allergy/AdvReac Type Severity Reaction Status Date / Time morphine AdvReac Abdominal Verified 11/12/23 10:56 Pain Review of Systems Review of Systems: All other systems are reviewed and are negative Constitutional: Reports as per HPI and Reports no additional constitutional complaints Eyes: Reports as per HPI and Reports no additional eye complaints Reports system reviewed and no additional complaints, except as documented Cardiovascular: Reports as per HPI and Reports no additional cardiovascular complaints Respiratory: Reports as per HPI and Reports no additional respiratory complaints Gastrointestinal: Reports as per HPI and Reports no additional gastrointestinal complaints Genitourinary: Reports no additional female genitourinary complaints Musculoskeletal: Reports no additional musculoskeletal complaints Skin/Breast: Reports system reviewed and no additional complaints, except as docu Psychiatric: Reports no additional psychiatric complaints Endocrine: Reports no additional endocrine complaints Hematologic/Lymphatic: Reports no additional hematologic/lymphatic complaints Allergic/Immunologic: Reports no additional allergic/immunologic complaints Reports system reviewed and no additional complaints, except as documented and Reports Abnormal speech present [facility] Past Medical History Medical History Somnolence, daytime Flank pain RUQ abdominal pain Left foot pain Bilateral hand pain COVID-19 Hepatitis C Rheumatoid arthritis Flank pain Renal stones Bipolar disorder Panic disorder Depression Anxiety Abdominal distension (gaseous) Asthma Hyperlipidemia 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 Mother Diabetes mellitus Sister Diabetes mellitus Brother No problems noted. Paternal Uncle Colon cancer Social History Social History Household Members: None Housing: Apartment Do you presently have visiting nurse or other home services: No Alcohol intake: current Alcohol intake frequency: does not drink Alcohol type: beer Patient Tobacco Use Status: Current someday Tobacco user Tobacco use type: Cigarette Cigarettes Per Day: 3 Years Smoked: 15 Smoked in Last 30 Days: No Use of substances other than those prescribed or required for medical reasons: No Advance Directives: No Advance Directives Information Provided: Yes service: No Physical Exam Vital Signs: Vital Signs: Last Vital Signs Temp 98.4 F 11/12/23 20:00 Pulse 58 11/12/23 20:00 Resp 16 11/12/23 20:00 BP 131/73 11/12/23 20:00 Pulse Ox 97 11/12/23 20:00 O2 Del Method Room Air 11/12/23 20:00 BMI result Body Mass Index 30.9 Vital signs have been reviewed and appear to be correct. Blood pressure elevated. Heart rate normal. Respiratory rate normal. Temperature normal. Oxygen saturation normal. Appearance: Alert. Oriented X3. No acute distress. Head: Normal external exam. Normocephalic. Atraumatic. No Schneider signs noted. No raccoon eyes noted Eyes: PERRLA. EOMI. Conjunctiva and sclera normal. Eyelids normal. ENT: TM's Normal. Pharynx normal. Uvula midline. Moist mucous membranes. No trismus noted. No drooling noted. No muffled voice noted. Neck: Normal inspection. Neck supple. FROM. No adenopathy. Thyroid Normal. No meningeal signs. No neck mass noted. CVS: Normal heart rate and rhythm. Heart sound normal. No murmurs noted. Pulses normal throughout. Respiratory: No respiratory distress. Painless inspiration. Breath sounds normal. No wheezes/rales/rhonchi noted. Chest nontender. No accessory muscle usage noted or decreased air movement noted. Abdomen: Soft and nontender. Bowel sounds normal in all 4 quadrants. No distention noted. No organomegaly noted. No visible injury noted. Back: No CVA tenderness. Full range of motion noted. Skin: Skin warm and dry. Normal skin color. Normal skin turgor. No rashes/lesions/lacerations noted. Extremities: No lower extremity edema. Extremities exhibit normal range of motion. Extremities nontender. Neuro: Oriented X 3. Cranial nerve exam: II-XII are grossly intact No motor deficit. No sensory deficit. Reflexes normal. Course Reevaluation(s) Reevaluation #1: patient feels much improved, VSS, labs are unremarkable, CT of the abdomen and pelvis is unremarkable for acute finding, patient has no chest pain EKG shows no indication for acute ischemic change with 3 troponin value elevated with no delta change. patient has a history of chronic troponin elevation in the past. Bilateral arm pins and needles pain is likely due to uncontrolled diabetes and peripheral neuropathy will start the patient on gabapentin patient was reassured and will be discharged to follow-up with PCP. Time: 20:20 Reevaluation #2: the case was discussed with Dr. Lu who recommended to start the patient on low dose heparin and keep for observation for further cardiology evaluation and stress test. Discussed with the patient agreed to stay in the hospital. Time: 21:10 Medications Administered Discontinued Medications Generic Name Dose Route Start Last Admin Trade Name Freq PRN Reason Stop Dose Admin Aspirin 81 mg 11/12/23 15:18 11/12/23 15:36 Aspirin 81 Mg Tab.Chew PO 11/12/23 15:19 81 mg ONCE ONE Administration Gabapentin 100 mg 11/12/23 20:31 11/12/23 21:09 Gabapentin 100 Mg Capsule PO 11/12/23 20:32 Not Given ONCE ONE Medical Decision Making Differential Diagnosis Differential Diagnoses: The differential diagnosis associated with the presentation includes ( Acute appendicitis, colitis, diverticulitis, acute cholecystitis, pyelonephritis, UTI, electrolyte derangement, severe anemia, ACS, peripheral neuropathy, uncontrolled diabetes.) Admission/Observation Consideration of admission/observation: Escalation of care including admission/observation considered Lab Data MDM Lab Attestation statement: I reviewed the patient's lab results. 11/12/23 14:46 11/12/23 14:46 Labs: Lab Results 11/12/23 11/12/23 11/12/23 Range/Units 14:46 15:32 17:51 WBC 4.8 (4.8-10.8) X10*3/uL RBC 4.32 (4.20-5.50) X10*6/uL Hgb 12.4 (12.0-16.0) g/dl Hct 36.3 L (37.0-47.0) % MCV 84.0 (80.0-98.0) fL MCH 28.7 (27.0-33.0) pg MCHC 34.2 (31.0-35.0) g/dl RDW 12.9 (11.0-16.0) % Plt Count 112 L (160-400) X10*3/uL MPV 9.5 (9.4-12.3) fL Immature Gran % (Auto) 0.2 (0.0-0.4) % Neut % (Auto) 52.9 (45-73) % Lymph % (Auto) 33.6 (20-40) % [place] % (Auto) 11.0 (2-11) % Eos % (Auto) 2.1 (0-4) % Baso % (Auto) 0.2 (0-2) % Lymph # (Auto) 1.6 (1.2-4.9) X10*3/uL [place] # (Auto) 0.5 (0.1-1.2) X10*3/uL Eos # (Auto) 0.1 (0.0-0.4) X10*3/uL Baso # (Auto) 0.0 (0.0-0.2) X10*3/uL Abs Immat Gran (auto) 0.01 (0.00-0.03) X10*3/uL Absolute Neuts (auto) 2.6 (2.0-8.3) x10*3/uL Absolute Nucleated RBC 0.000 (0.0-0.012) X10*3/uL Nucleated RBC % (auto) 0.0 (0.0-0.2) /100WBC Sodium 139 (135-145) mmol/L Potassium 3.6 (3.3-5.1) mmol/L Chloride 106 (96-108) mmol/L Carbon Dioxide 24 (22-29) mmol/L Anion Gap 13 (12-20) BUN 13 (9-16) mg/dL Creatinine 0.92 (0.5-1.4) mg/dL Estim Creat Clear Calc 64.8 Estimated GFR > 60 Random Glucose 274 H (60-115) mg/dL Calcium 9.6 (8.4-10.2) mg/dL Total Bilirubin 0.4 (0.0-1.0) mg/dL Direct Bilirubin 0.1 (0.0-0.5) mg/dL AST 62 H (5-31) U/L ALT 75 H (0-31) U/L Alkaline Phosphatase 161 H (39-117) U/L Total Creatine Kinase 272 H (26-140) U/L Troponin I High Sens 211.3 H* 210.0 H* 226.2 H* (<3.5-17.0) ng/L Total Protein 7.6 (6.5-8.0) g/dL Albumin 3.8 (3.5-5.0) g/dL Lipase 17 (8-78) U/L Urine Color Yellow Urine Appearance Turbid Urine pH 5.5 (5.0-9.0) Ur Specific [place] 1.020 (1.005-1.025) Urine Protein Trace (Neg-Trace) mg/dL Urine Glucose (UA) 250 H (Negative) mg/dL Urine Ketones Negative (Negative) mg/dL Urine Blood Negative (Negative) Urine Nitrite Negative (Negative) Ur Leukocyte Esterase Trace H (Negative) Urine RBC 0-2 (0-2) /HPF Urine WBC 11-20 H (0-5) /HPF Ur Squamous Epith Cells >20 (0-2) /HPF Urine Bacteria 4+ (None Seen) Hyaline Casts 0-2 (0-2) /LPF Independent Interpretation I performed an independent interpretation of an: EKG ( sinus bradycardia at 55 beats per minute, left axis deviation, normal intervals, LVH.) and CT Scan (There is a stable nonobstructive calculus versus cluster of calculi within the lower pole of the left kidney measuring up to 5.4 mm. The liver is cirrhotic. There is splenomegaly. There is a 2 mm nodule within the right middle lobe. ) Radiology Impression Discussion of test interpretation with radiology: I have reviewed the radiologist's reading. Discharge Plan Discharge Clinical Impression: Peripheral neuropathy, Elevated troponin Patient Disposition: Admitted As Inpatient Instructions: Peripheral Neuropathy (ED) Prescriptions: No Action amlodipine 5 mg tablet 1 tab PO QAM fluticasone propionate [Flovent HFA] 220 mcg/actuation HFA aerosol inhaler 1 puff PO BID metoprolol succinate 25 mg tablet extended release 24 hr 0.5 tab PO QAM quetiapine 25 mg tablet 25 mg PO BID PRN (Reason: Sleep) quetiapine 100 mg Tablet 150 mg PO BEDTIME hydromorphone [Dilaudid] 2 mg tablet 2 mg PO Q4-6H PRN (Reason: pain) Qty: 10 0RF Rx Instructions: Partial Fill upon patient request. tamsulosin [Flomax] 0.4 mg capsule 0.4 mg PO DAILY Qty: 14 0RF ketorolac 10 mg tablet 10 mg PO TID PRN (Reason: pain) 5 Days Qty: 15 0RF doxycycline hyclate 100 mg capsule 100 mg PO BID Qty: 14 0RF nitrofurantoin monohyd/m-cryst [Macrobid] 100 mg capsule 100 mg PO BID 5 Days Qty: 10 0RF Rx Instructions: must administer with a meal/food phenazopyridine [Pyridium] 100 mg tablet 100 mg PO TID PRN (Reason: pain) Qty: 6 0RF gabapentin 300 mg capsule 300 mg PO BID lisinopril 40 mg tablet 40 mg PO DAILY esomeprazole magnesium 20 mg capsule,delayed release(DR/EC) 20 mg PO BID 30 Days Qty: 60 3RF insulin glargine [Lantus Solostar U-100 Insulin] 100 unit/mL (3 mL) insulin pen 60 unit subcut DAILY (DME) pen needle, diabetic [UltiCare Pen Needle] 31 gauge x 5/16 needle See Rx Instructions .ROUTE QID Qty: 1200 Rx Instructions: As directed insulin lispro 100 unit/mL insulin pen 20 unit subcut TID prazosin 2 mg capsule 2 mg PO BEDTIME lidocaine 5 % adhesive patch,medicated 1 patch topical BID PRN (Reason: Pain) pioglitazone 15 mg tablet 15 mg PO QAM cholecalciferol (vitamin D3) [Vitamin D3] 25 mcg (1,000 unit) capsule 25 mcg PO QAM pyridoxine (vitamin B6) 100 mg tablet 100 mg PO DAILY Qty: 90 3RF albuterol sulfate 2.5 mg /3 mL (0.083 %) solution for nebulization 2.5 mg inhalation Q4-6H PRN famotidine 20 mg tablet 20 mg PO BID 90 Days Qty: 180 3RF Senna Plus 8.6-50 mg capsule 2 tab-cap PO BEDTIME 60 Days Qty: 120 1RF ropinirole 0.5 mg tablet 0.5 mg PO BEDTIME Ozempic 0.25 mg or 0.5 mg (2 mg/3 mL) pen injector 0.5 mg subcut QWEEK rosuvastatin 5 mg tablet 5 mg PO QPM aspirin 81 mg tablet,delayed release (DR/EC) 81 mg PO QPM Print Language: [place]
[2023-11-12 14:50] LABS: MANUAL DIFF FLAG NO
[2023-11-12 14:57] LABS: Basophils Percent Auto 0.2 % (0-2); Eosinophils Absolute Auto 0.1 X10*3/uL (0.0-0.4); Eosinophils Percent Auto 2.1 % (0-4); Hematocrit 36.3 % (37.0-47.0); Hemoglobin 12.4 g/dl (12.0-16.0); Imm Gran Abs Auto 0.01 X10*3/uL (0.00-0.03); Imm Gran Pct Auto 0.2 % (0.0-0.4); Lymphocytes Absolute Auto 1.6 X10*3/uL (1.2-4.9); Lymphocytes Percent Auto 33.6 % (20-40); Mean Corpuscular HGB Conc 34.2 g/dl (31.0-35.0); Mean Corpuscular Hemoglobin 28.7 pg (27.0-33.0); Mean Platelet Volume 9.5 fL (9.4-12.3); Monocytes Absolute Auto 0.5 X10*3/uL (0.1-1.2); Neutrophils Absolute Auto 2.6 x10*3/uL (2.0-8.3); Neutrophils Percent Auto 52.9 % (45-73); Platelet Count 112 X10*3/uL (160-400); Red Blood Count 4.32 X10*6/uL (4.20-5.50); Red Cell Distribution Width 12.9 % (11.0-16.0); White Blood Count 4.8 X10*3/uL (4.8-10.8)
[2023-11-12 15:03] LABS: Anion Gap 13 (12-20); Blood Urea Nitrogen 13 mg/dL (9-16); Calcium 9.6 mg/dL (8.4-10.2); Carbon Dioxide 24 mmol/L (22-29); Chloride 106 mmol/L (96-108); Creatinine Clr Calc Pharmacy 64.8; Estimated Glomerular Filt Rate > 60; Glucose Random 274 mg/dL (60-115); Potassium 3.6 mmol/L (3.3-5.1); Sodium 139 mmol/L (135-145)
[2023-11-12 15:04] LABS: Alanine Aminotransferase 75 U/L (0-31); Albumin Level 3.8 g/dL (3.5-5.0); Alkaline Phosphatase 161 U/L (39-117); Aspartate Amino Transferase 62 U/L (5-31); Bilirubin Direct 0.1 mg/dL (0.0-0.5); Bilirubin Total 0.4 mg/dL (0.0-1.0); Lipase 17 U/L (8-78); Total Protein 7.6 g/dL (6.5-8.0)
[2023-11-12 15:12] LABS: Troponin-I High Sensitivity 211.3 ng/L (<3.5-17.0)
--- NOTE | 2023-11-12 15:18 | ECG_ITS ---
Test Reason : ELEVATED TROP Blood Pressure : / mmHG Vent. Rate : 056 BPM Atrial Rate : 056 BPM P-R Int : 162 ms QRS Dur : 094 ms QT Int : 440 ms P-R-T Axes : 047 -31 136 degrees QTc Int : 424 ms Sinus bradycardia Left axis deviation Left ventricular hypertrophy with repolarization abnormality ( R in aVL , [place] product , [place] ) Abnormal ECG When compared with ECG of 12-NOV-2023 11:21, No significant change was found Referred By: Miguel Durán Electronically Signed By:JENNIE ARCHER
[2023-11-12] MEDS: Aspirin 81 MG TAB.CHEW PO (15:36)
[2023-11-12 15:51] VITALS: BP 157/79; PULSE 61; RESP 16; TEMP 36.8; O2SAT 99
[2023-11-12 15:51] LABS: Appearance Urine Turbid; Color Urine Yellow; Glucose Urine UA 250 mg/dL (Negative); Leukocyte Esterase Urine Trace (Negative); Nitrite Urine Negative (Negative); PH 5.5 (5.0-9.0); UMIC TRIGGER UACC YES; Urine Blood Negative (Negative); Urine Ketones Negative (Negative); Urine Protein Trace mg/dL (Neg-Trace)
[2023-11-12 15:56] LABS: Bacteria Urine 4+ (None Seen); Hyaline Casts Urine 0-2 /LPF (0-2); RBC Urine 0-2 /HPF (0-2); Squamous Epithelial Cell Urine >20 /HPF (0-2); UACC Culture Trigger YES
[2023-11-12 18:09] VITALS: BP 156/73; PULSE 56; RESP 16; TEMP 36.8; O2SAT 99
[2023-11-12 18:32] LABS: Troponin-I High Sensitivity 226.2 ng/L (<3.5-17.0)
[2023-11-12 20:00] VITALS: BP 131/73; PULSE 58; RESP 16; TEMP 36.9; O2SAT 97
--- NOTE | 2023-11-12 21:40 | P.HPHOSP_ITS ---
History of Present Illness Date of Service: 11/12/23 Attending physician on admission: Louis Cortes Chief Complaint: upper extremities pain Tank Max is a 58 years old woman with past medical history significant for type 2 diabetes mellitus on insulin, hypertension, liver cirrhosis, chronic hepatitis-C infection (untreated) and hyperlipidemia presents to the emergency department complaining of 3 days' history of upper extremity pain. Patient also reported shortness on breath at nighttime and occasional dizziness (loss of balance). She also reported some occasional right-sided headache. She denied nausea, vomiting, fever, chills or diarrhea. She denies abdominal pain, pain with urination or bloody urine. She is a former tobacco smoker. Denies alcohol or illicit drug use. In the ED, she was found to have normal vital signs. Blood workup showed no leukocytosis. There is mild thrombocytopenia and hemoglobin is normal. There are no electrolyte imbalances. Glucose is 274. Transaminases and alk-phos are elevated. Bilirubin is normal. Lipase and albumin are normal. CK is 272. Troponin elevated (211.3--> 210.0--> 226.2. Urinalysis showed trace leukocyte steroids, RBCs 0-2 and WBC 11-20, however there is abundant squamous cells. ECG showed no ischemic changes. Abdomen and pelvis CT scan showed stable nonobstructive calculus versus cluster of calculi within the lower pole of the left kidney and 2 mm nodule within the right middle lobe. It also showed finding consistent with liver cirrhosis and splenomegaly. ED tx: Aspirin 81 mg PO, gabapentin 100 mg PO and heparin infusion. Review of Systems 2 Review of Systems: All 12 systems were reviewed and normal except as noted in HPI. 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 Mother Diabetes mellitus Sister Diabetes mellitus Brother No problems noted. Paternal Uncle Colon cancer Surgical History Hx of lithotripsy History of esophagogastroduodenoscopy (EGD) Hx of cholecystectomy Social History Household Members: None Housing: Apartment Do you presently have visiting nurse or other home services: No Alcohol intake: current Alcohol intake frequency: does not drink Alcohol type: beer Patient Tobacco Use Status: Current someday Tobacco user Tobacco use type: Cigarette Cigarettes Per Day: 3 Years Smoked: 15 Smoked in Last 30 Days: No Use of substances other than those prescribed or required for medical reasons: No Advance Directives: No Advance Directives Information Provided: Yes service: No Meds Allergies Allergy/AdvReac Type Severity Reaction Status Date / Time morphine AdvReac Abdominal Verified 11/12/23 10:56 Pain Active Medications: Current Medications Aspirin (Aspirin Enteric Coated 81 Mg Tablet.Dr) 81 mg PO QPM [facility] Heparin Sodium (Porcine) (Heparin Sodium,Porcine 5,000 Unit/Ml Vial) 3,200 unit 40 unit/kg (3200 unit) IVPUSH PROTOCOL BOLUS PRN; Protocol PRN Reason: 40 unit/kg - Heparin Protocol Heparin Sodium (Porcine) (Heparin Sodium,Porcine 5,000 Unit/Ml Vial) 6,300 unit 80 unit/kg (6300 unit) IVPUSH PROTOCOL BOLUS PRN; Protocol PRN Reason: 80 unit/kg - Heparin Protocol Heparin Sodium/Sodium Chloride (Heparin Sodium,Porcine/1/2ns) 25,000 unit in 250 mls @ 0 mls/hr IVCONT .Q0M [facility]; Protocol Insulin Glargine (Insulin Glargine,Hum.Rec.Anlog 100 Unit/Ml 10 Ml Vial) 60 unit SUBCUT DAILY [facility] Sodium Chloride (0.9 % Sodium Chloride Flush 3 Ml Syringe) 3 ml IVFLUSH QSHIFT [facility] Home Medications ?Medication ?Instructions ?Recorded ?Confirmed ?Last Taken ?Type gabapentin 300 mg capsule 300 mg PO BID 07/28/20 11/01/23 Unknown History lisinopril 40 mg tablet 40 mg PO DAILY 07/28/20 11/01/23 10/25/20 08:00 History amlodipine 5 mg tablet 1 tab PO QAM 10/19/20 11/01/23 05/02/23 10:26 History fluticasone propionate 220 1 puff PO BID 10/19/20 11/01/23 Unknown History mcg/actuation HFA aerosol inhaler (Flovent HFA) metoprolol succinate 25 mg 0.5 tab PO QAM 10/25/20 11/01/23 10/25/20 08:00 History tablet,extended release 24 hr cholecalciferol (vitamin D3) 25 25 mcg PO QAM 10/12/22 11/01/23 Unknown History mcg (1,000 unit) capsule (Vitamin D3) insulin glargine 100 unit/mL (3 60 unit subcut DAILY 10/12/22 11/01/23 Unknown History mL) subcutaneous pen (Lantus Solostar U-100 Insulin) insulin lispro 100 unit/mL 20 unit subcut TID 10/12/22 11/01/23 Unknown History subcutaneous pen lidocaine 5 % topical patch 1 patch topical BID PRN Pain 10/12/22 11/01/23 Unknown History pen needle, diabetic 31 gauge x #1,200 ea 10/12/22 11/01/23 Unknown History 12/12 (UltiCare Pen Needle) pioglitazone 15 mg tablet 15 mg PO QAM 10/12/22 11/01/23 Unknown History prazosin 2 mg capsule 2 mg PO BEDTIME 10/12/22 11/01/23 Unknown History quetiapine 100 mg tablet 150 mg PO BEDTIME 05/05/23 11/01/23 Unknown History quetiapine 25 mg tablet 25 mg PO BID PRN Sleep 05/05/23 11/12/23 Unknown History albuterol sulfate 2.5 mg/3 mL 2.5 mg inhalation Q4-6H PRN 09/10/23 11/01/23 Unknown History (0.083 %) solution for nebulization aspirin 81 mg tablet,delayed 81 mg PO QPM 09/24/23 11/12/23 Unknown History release ropinirole 0.5 mg tablet 0.5 mg PO BEDTIME 09/24/23 11/01/23 Unknown History rosuvastatin 5 mg tablet 5 mg PO QPM 09/24/23 11/01/23 Unknown History semaglutide 0.25 mg or 0.5 mg (2 0.5 mg subcut QWEEK 09/24/23 11/01/23 Unknown History mg/3 mL) subcutaneous pen injector (Ozempic) amlodipine 10 mg tablet 10 mg PO QAM 11/12/23 11/12/23 Unknown History gabapentin 300 mg capsule mg PO 11/12/23 Unknown History insulin glargine 100 unit/mL (3 60 unit subcut DAILY 11/12/23 11/12/23 Unknown History mL) subcutaneous pen (Lantus Solostar U-100 Insulin) lisinopril 40 mg tablet 40 mg PO QPM 11/12/23 11/12/23 Unknown History metoprolol succinate 25 mg 12.5 mg PO QAM 11/12/23 11/12/23 Unknown History tablet,extended release 24 hr quetiapine 100 mg tablet 150 mg PO BEDTIME 11/12/23 11/12/23 Unknown History ropinirole 0.5 mg tablet 0.5 mg PO BEDTIME 11/12/23 11/12/23 Unknown History rosuvastatin 5 mg tablet 5 mg PO QPM 11/12/23 11/12/23 Unknown History Physical Exam 2 Vital Signs and Narrative: Vital Signs: Last Vital Signs Temp 98.4 F 11/12/23 20:00 Pulse 58 11/12/23 20:00 Resp 16 11/12/23 20:00 BP 131/73 11/12/23 20:00 Pulse Ox 97 11/12/23 20:00 O2 Del Method Room Air 11/12/23 20:00 BMI result Body Mass Index 30.9 Constitutional - Awake and Alert, No apparent distress. Afebrile. HEENT - Pupils equally round, normal sclerae. Moist oral mucosa. Heart - S1S2, RRR. Lungs - Normal lung expansion, Normal respiratory effort, No respiratory distress, CTA bilaterally Abdomen - NT / ND; +BS; No rebound or guarding - No CVA tenderness Extremities - no calf tenderness bilaterally, no swelling Musculoskeletal - Normal inspection, normal ROM Skin - Warm/Dry. No pallor. No jaundice. Neurological - Alert & oriented x3. No focal weakness. Normal speech. Psychological - Appropriate affect Results Labs 11/12/23 21:43 11/12/23 14:46 Labs: Laboratory Results - last 24 hr 11/12/23 11/12/23 11/12/23 14:46 15:32 17:51 MCV 84.0 MCH 28.7 MCHC 34.2 RDW 12.9 Plt Count 112 L MPV 9.5 Immature Gran % (Auto) 0.2 Neut % (Auto) 52.9 Lymph % (Auto) 33.6 [place] % (Auto) 11.0 Eos % (Auto) 2.1 Baso % (Auto) 0.2 Lymph # (Auto) 1.6 [place] # (Auto) 0.5 Eos # (Auto) 0.1 Baso # (Auto) 0.0 Abs Immat Gran (auto) 0.01 Absolute Neuts (auto) 2.6 Absolute Nucleated RBC 0.000 Nucleated RBC % (auto) 0.0 Anion Gap 13 Estim Creat Clear Calc 64.8 Estimated GFR > 60 Random Glucose 274 H Calcium 9.6 Total Bilirubin 0.4 Direct Bilirubin 0.1 AST 62 H ALT 75 H Alkaline Phosphatase 161 H Total Creatine Kinase 272 H Troponin I High Sens 211.3 H* 210.0 H* 226.2 H* Total Protein 7.6 Albumin 3.8 Lipase 17 Urine Color Yellow Urine Appearance Turbid Urine pH 5.5 Ur Specific [place] 1.020 Urine Protein Trace Urine Glucose (UA) 250 H Urine Ketones Negative Urine Blood Negative Urine Nitrite Negative Ur Leukocyte Esterase Trace H Urine RBC 0-2 Urine WBC 11-20 H Ur Squamous Epith Cells >20 Urine Bacteria 4+ Hyaline Casts 0-2 Imaging Radiologist's Impressions: Impressions Abdomen/Pelvis CT 11/12/23 15:06 IMPRESSION: There is a stable nonobstructive calculus versus cluster of calculi within the lower pole of the left kidney measuring up to 5.4 mm. The liver is cirrhotic. There is splenomegaly. There is a 2 mm nodule within the right middle lobe. According to the UPDATED 2017 Fleischner Society recommendations, the advised follow-up imaging for solid nodules < 6 mm is: LOW RISK PATIENT: No routine follow-up. HIGH RISK PATIENT: Optional CT at 12 months. Fleischner guidelines were followed. Assessment and Plan (1) NSTEMI (non-ST elevated myocardial infarction): Status: Acute (2) Hepatitis C: Qualifiers: Viral hepatitis chronicity: chronic Hepatic coma status: without hepatic coma Qualified Code(s): B18.2 - Chronic viral hepatitis C Status: Acute (3) Cirrhosis: Qualifiers: Hepatic cirrhosis type: unspecified hepatic cirrhosis Ascites presence: without ascites Qualified Code(s): K74.60 - Unspecified cirrhosis of liver Status: Acute (4) Hyperlipidemia: Qualifiers: Hyperlipidemia type: unspecified Qualified Code(s): E78.5 - Hyperlipidemia, unspecified Status: Acute (5) HTN (hypertension): Qualifiers: Hypertension type: primary hypertension Qualified Code(s): I10 - Essential (primary) hypertension Status: Acute (6) Diabetes mellitus, insulin dependent (IDDM), uncontrolled: Status: Acute Plan Tank Max is a 58 years old woman admitted with: * NSTEMI. Admit to hospitalist service. Telemetry. Continue treatment with aspirin, statin, ACEI and BB. Continue treatment with heparin IV infusion. Obtain TTE. Check lipid panel and hemoglobin A1c. Recheck troponin. Cardiology consult. * Type 2 diabetes mellitus. Continue Lantus and insulin sliding scale. Diabetic diet. Uses Ozempic. * Essential hypertension. Continue metoprolol, Lasix and amlodipine. * Hyperlipidemia. Continue statin. * Chronic thrombocytopenia, at baseline. Likely due to cirrhosis. Continue to monitor. * Chronic hepatitis-C infection. Untreated (pt stated she did not tolerate Hep C tx). * Elevated LFTs. Likely secondary to chronic hepatitis-C infection. Continue to monitor * ?UTI. Abundant epitelial cells. Likely contaminant. Avoid antibiotics for now -will follow urine culture. * Hx of liver cirrhosis. No evidence encephalopathy, ascites or GI bleeding. * GERD. Continue PPI. * Bipolar disorder. Continue Seroquel. * Hx of nephrolithiasis. No microscopic hematuria. No evidence of obstruction on CT scan. DVT prophylaxis: Heparin infusion GI prophylaxis: PPI Code status: Full Patient will need hospitalization for at least 2 midnights for NSTEMI treatment with aspirin, heparin IV infusion, statin, LUKE inhibitor and beta blockers. She will need close monitoring of vital signs and blood workup as well as evaluation by subspecialty. Quality Stroke Does the patient have a stroke diagnosis?: No VTE Prior VTE?: No VTE Risk Level:: Medical - moderate - high VTE Device Contraindication: Treatment Not Indicated VTE Drug Contraindication: N/A - Med Ordered
[2023-11-12 21:49] VITALS: BP 170/81; PULSE 55; RESP 16; TEMP 36.7; O2SAT 95
[2023-11-12 21:55] LABS: INTERNATIONAL NORM RATIO 0.9 (0.9-1.1); Prothrombin Time 11.3 SEC (11.1-13.3)
[2023-11-12 21:58] LABS: PTT Heparin Drip 40.6 SEC (53-77.9)
[2023-11-12 22:01] LABS: Hematocrit 36.8 % (37.0-47.0); Hemoglobin 12.7 g/dl (12.0-16.0); Mean Corpuscular HGB Conc 34.5 g/dl (31.0-35.0); Mean Corpuscular Hemoglobin 28.6 pg (27.0-33.0); Mean Corpuscular Volume 82.9 fL (80.0-98.0); Mean Platelet Volume 10.2 fL (9.4-12.3); Platelet Count 108 X10*3/uL (160-400); Red Blood Count 4.44 X10*6/uL (4.20-5.50); Red Cell Distribution Width 12.9 % (11.0-16.0); White Blood Count 4.5 X10*3/uL (4.8-10.8)
[2023-11-12] MEDS: Heparin Sodium,Porcine 5,000 UNIT/ML VIAL 4000 UNIT IVPUSH (22:03)
[2023-11-12] MEDS: Heparin Sodium,Porcine/1/2NS 25,000 UNIT/250 ML IV.SOLN 9.5 UNIT IVCONT (22:09)
[2023-11-12 22:15] LABS: Glucose, Whole Blood 126 mg/dL (60-115)
[2023-11-12] MEDS: Acetaminophen 325 MG TABLET 650 MG PO (22:18)
[2023-11-13] VITALS (8 sets, daily range): BP systolic 109–159; BP diastolic 69–89; PULSE 54–78; RESP 11–20; TEMP 36.1–36.8; O2SAT 95–99; BMI 31.1
--- NOTE | 2023-11-13 | ECG_ITS ---
Test Reason : ?rythm Blood Pressure : / mmHG Vent. Rate : 050 BPM Atrial Rate : 050 BPM P-R Int : 150 ms QRS Dur : 092 ms QT Int : 440 ms P-R-T Axes : 051 -29 142 degrees QTc Int : 401 ms Sinus bradycardia Left ventricular hypertrophy with repolarization abnormality ( R in aVL , Marquez product , Romhilt-Putnam ) Abnormal ECG When compared with ECG of 12-NOV-2023 15:25, No significant change was found Referred By: Keesha Gillespie Electronically Signed By:JENNIE ARCHER
[2023-11-13] MEDS: Ibuprofen 400 MG TABLET PO ×2 (03:07→20:46)
[2023-11-13 04:42] LABS: Basophils Percent Auto 0.2 % (0-2); Eosinophils Absolute Auto 0.1 X10*3/uL (0.0-0.4); Eosinophils Percent Auto 3.1 % (0-4); Hematocrit 35.5 % (37.0-47.0); Imm Gran Abs Auto 0.01 X10*3/uL (0.00-0.03); Imm Gran Pct Auto 0.2 % (0.0-0.4); Lymphocytes Percent Auto 46.9 % (20-40); MANUAL DIFF FLAG NO; Mean Corpuscular HGB Conc 33.8 g/dl (31.0-35.0); Mean Corpuscular Hemoglobin 28.6 pg (27.0-33.0); Mean Corpuscular Volume 84.5 fL (80.0-98.0); Mean Platelet Volume 9.9 fL (9.4-12.3); Monocytes Absolute Auto 0.5 X10*3/uL (0.1-1.2); Monocytes Percent Auto 11.1 % (2-11); Neutrophils Absolute Auto 1.6 x10*3/uL (2.0-8.3); Neutrophils Percent Auto 38.5 % (45-73); Red Cell Distribution Width 12.9 % (11.0-16.0); White Blood Count 4.2 X10*3/uL (4.8-10.8)
[2023-11-13 04:44] LABS: Platelet Count 98 X10*3/uL (160-400)
[2023-11-13 04:48] LABS: Prothrombin Time 12.1 SEC (11.1-13.3)
[2023-11-13 04:59] LABS: Anion Gap 11 (12-20); Blood Urea Nitrogen 11 mg/dL (9-16); Calcium 9.2 mg/dL (8.4-10.2); Carbon Dioxide 24 mmol/L (22-29); Chloride 107 mmol/L (96-108); Cholesterol 174 mg/dL (<200); Creatinine Clr Calc Pharmacy 69.3; Estimated Glomerular Filt Rate > 60; Glucose Random 166 mg/dL (60-115); HDL Cholesterol 52 mg/dL (>40); LDL Cholesterol Calculated 68 mg/dL (<100); Potassium 3.6 mmol/L (3.3-5.1); Sodium 138 mmol/L (135-145); Triglycerides 274 mg/dL (<150)
[2023-11-13 05:03] LABS: PTT Heparin Drip 119.7 SEC (53-77.9)
--- NOTE | 2023-11-13 05:17 | PC.NURSE ---
PTT 119.7, Heparin drip paused per protocol. Redraw ordered for 06:05. Dr. Smallwood made aware.
[2023-11-13 06:36] LABS: PTT Heparin Drip 63.4 SEC (53-77.9)
--- NOTE | 2023-11-13 07:00 | CA_ITS ---
Transthoracic Echocardiogram Patient (Last, First, Middle): Tank Max, Gender: Female Date of : 1965 Age: 58 Procedure Date: 11/13/2023 Procedure Type: Transthoracic Echocardiogram Location: ER Height: 160.02 cm Weight: 79.38 kg BSA: 1.83 m2 Heart Rate: bpm BP: 124 / 71 mmHg Cytology Manager: Referring MD: Louis Cortes MD Symptoms: NSTEMI Study Quality: Good ECG Rhythm: Sinus Conclusions: - The left ventricular systolic function is normal. The calculated ejection fraction is 60% by biplane method. - There is severely increased left ventricular wall thickness. - No obvious valvular pathology seen on this study. - There is mild dilatation of the ascending aorta measuring 4.00 cm. Findings Left Ventricle Normal left ventricular cavity size. There is severely increased left ventricular wall thickness. The left ventricular systolic function is normal. The calculated ejection fraction is 60% by biplane method. There is no evidence of regional wall motion abnormalities. Evidence suggests grade I (mild) diastolic dysfunction. LV peak GLS -16%. Right Ventricle Normal right ventricular cavity size and systolic function. Atria Both atria are normal in size. Aortic Valve There is a normal trileaflet aortic valve. There is no aortic valve stenosis. There is trace (trivial) aortic valve regurgitation. Mitral Valve The mitral valve appears normal. There is no mitral valve regurgitation. There is no mitral valve stenosis. Pulmonic Valve The pulmonic valve is likely normal. Tricuspid Valve There is no tricuspid valve regurgitation. There is no evidence of pulmonary hypertension. Great Vessels There is mild dilatation of the ascending aorta measuring 4.00 cm. Venous The inferior vena cava is normal in size and collapses greater than 50% with inspiration. Pericardium/Pleural There is no evidence of pericardial effusion. Prior Study Comparison No significant change compared to prior study dated: 01/08/2020. Recommendations, Care & Conclusions No obvious valvular pathology seen on this study. Measurements 2D Linear Measurements IVSd: 2.07 0.6-0.9/0.6-1.0 cm LVIDd: 3.91 3.9-5.3/4.2-5.9 cm LVIDd Index: 2.14 2.4-3.2/2.2-3.1 cm/m2 LVIDs: 2.53 2.0-3.6 cm LVPWd: 1.88 0.7-1.1 cm Ao Root: 3.30 2.1-3.5 cm LA Diam: 3.90 2.7-3.8/3.0-4.0 cm LAIDs Index: 2.13 1.5-2.3 cm/m2 LV Mass: 442.84 67-162/88-224 g LV Mass Index: 241.99 43-95/49-115 g/m2 LVOT Diam: 2.20 3.0+(-)1.3 cm 2D Systolic Function EF 4C: 55.10 >55% EF 2C: 61.70 >55% EF BiP: 59.90 >55% Mitral Valve MV Pk E: 0.69 MV PK A: 1.00 MV Decel Time: 233.00 E/A: 0.70 E'Lateral: 6.20 E'Medial: 3.48 E/E' Med: 19.90 E/E' Lat: 11.20 PHT: 68.00 MVA PHT: 3.24 Decel [place]: 2.98 Aortic Valve AoV Pk Brian: 1.69 AoV Mn Brian: 1.03 AoV VTI: 0.40 AoV Pk Grad: 11.00 Aov Mn Grad: 5.00 AMY Cont.VTI: 2.69 LVOT LVOT Pk Brian: 1.15 LVOT Mn Brian: 0.71 LVOT VTI: 0.28 LVOT Pk Grad: 5.00 LVOT Mn Grad: 3.00 LVOT Diam: 2.20 LVOT Area: 3.80 Diastolic Function MV Pk E: 0.69 MV Pk A: 1.00 E/A: 0.70 E'Medial: 3.48 E/E' Med: 19.90 E' Laterial: 6.20 E/E' Lat: 11.20 Right Ventricle TAPSE (mm): 24.00 TVS' Brian: 11.00 Tricuspid Valve TR Pk Brian: 1.42 TR Pk Grad: 8.00 Great Vessels Aorta Ao Root-2D: 3.30 2.0-3.7 cm Ao Asc: 4.00 2.1-3.4 cm Pulmonary Valve PV Pk Brian: 1.03 Peak PV Grad: 4.00 Updated in Other Vendor System with Status of Final Messi Lu MD electronically signed on 11/13/2023 11:34:30 AM with status of Final
[2023-11-13 07:17] LABS: Glucose, Whole Blood 155 mg/dL (60-115)
[2023-11-13 07:46] LABS: Estimated Average Glucose 174 mg/dL; Hemoglobin A1c % 7.7 % (<6.0)
[2023-11-13] MEDS: Pantoprazole Sodium 40 MG/10 ML VIAL IVPUSH (09:49)
[2023-11-13] MEDS: amLODIPine Besylate 10 MG TABLET PO (09:49)
--- NOTE | 2023-11-13 09:52 | P.CONCA_ITS ---
History of Present Illness History of Present Illness Date of Service: 11/13/23 Chief complaint: NSTEMI Narrative: This is a cardiology consultation regarding elevated troponins and question of non ST elevation myocardial infarction. Patient has history of type 2 diabetes on insulin, hypertension, cirrhosis/hepatitis-C and dyslipidemia. Basically she is here because of bilateral arm discomfort. She states that she has discomfort from both shoulders all the way up to the hands. Sometimes she also feels some tingling/numbness type sensations in the hence. At nights, she has to keep moving hence as otherwise they are bothersome. Seems somewhat neuropathy in nature. She does not have any clear-cut anginal-type symptoms. No known coronary disease. Any case, troponins were checked and they were on the higher side and hence patient is admitted. Currently, she is somewhat tearful and she is worried why she she is having all these symptoms. Otherwise, no angina or other cardiac sounding symptoms at the present time. Nothing in the past either. Review of Systems 2 Review of Systems: Yes all other systems are reviewed and are negative Constitutional: Constitutional: Reports as per HPI and Reports no additional constitutional complaints Eyes: Eyes: Reports as per HPI and Denies no additional eye complaints ENT: Denies system reviewed and no additional complaints, except as documented and Reports as per HPI Cardiovascular: Cardiovascular: Reports as per HPI, Reports no additional cardiovascular complaints, Denies acrocyanosis, Denies cool extremities, Denies chest pain, Denies leg edema, Denies lightheadedness, Denies palpitations and Denies dyspnea Respiratory: Respiratory: Reports as per HPI, Denies no additional respiratory complaints and Denies dyspnea Gastrointestinal: Gastrointestinal: Reports as per HPI and Denies no additional gastrointestinal complaints Genitourinary: Genitourinary: Reports as per HPI Musculoskeletal: Musculoskeletal: Reports no additional musculoskeletal complaints and Reports as per HPI Integumentary/Breasts: Skin/Breast: Reports system reviewed and no additional complaints, except as docu Neurologic: Reports system reviewed and no additional complaints, except as documented and Reports as per HPI Psychiatric: Psychiatric: Reports no additional psychiatric complaints and Reports as per HPI Endocrine: Endocrine: Reports no additional endocrine complaints, Reports as per HPI and Denies palpitations Hematologic/Lymphatic: Hematologic/Lymphatic: Reports no additional hematologic/lymphatic complaints and Reports as per HPI Allergic/Immunologic: Allergic/Immunologic: Reports no additional allergic/immunologic complaints and Reports as per HPI PMFSH Past Medical History Medical History (Updated 11/12/23 @ 22:33 by Loius Cortes MD) HTN (hypertension) Somnolence, daytime Flank pain RUQ abdominal pain Left foot pain Bilateral hand pain COVID-19 Hepatitis C Rheumatoid arthritis Flank pain Renal stones Bipolar disorder Panic disorder Depression Anxiety Abdominal distension (gaseous) Asthma Hyperlipidemia 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 Mother Diabetes mellitus Sister Diabetes mellitus Brother No problems noted. Paternal Uncle Colon cancer Surgical History Surgical History Hx of lithotripsy History of esophagogastroduodenoscopy (EGD) Hx of cholecystectomy Social History Social History Household Members: None Housing: Apartment Do you presently have visiting nurse or other home services: No Alcohol intake: current Alcohol intake frequency: does not drink Alcohol type: beer Patient Tobacco Use Status: Current someday Tobacco user Tobacco use type: Cigarette Cigarettes Per Day: 3 Years Smoked: 15 Smoked in Last 30 Days: No Use of substances other than those prescribed or required for medical reasons: No Advance Directives: No Advance Directives Information Provided: Yes service: No Meds Allergies Allergy/AdvReac Type Severity Reaction Status Date / Time morphine AdvReac Abdominal Verified 11/12/23 10:56 Pain Active Medications: Current Medications Amlodipine Besylate (Amlodipine Besylate 10 Mg Tablet) 10 mg PO DAILY ELISE; Protocol Last Admin: 11/13/23 09:49 Dose: 10 mg Aspirin (Aspirin Enteric Coated 81 Mg Tablet.) 81 mg PO BEDTIME [facility]ISE Atorvastatin Calcium (Atorvastatin Calcium 20 Mg Tablet) 20 mg PO BEDTIME [facility]ISE Glucose (Glucose Gel 15 Gm Gel..Gram.) 15 gm PO Q15M PRN; Protocol PRN Reason: per Hypoglycemia Standing Ord. Heparin Sodium (Porcine) (Heparin Sodium,Porcine 5,000 Unit/Ml Vial) 3,200 unit 40 unit/kg (3200 unit) IVPUSH PROTOCOL BOLUS PRN; Protocol PRN Reason: 40 unit/kg - Heparin Protocol Heparin Sodium (Porcine) (Heparin Sodium,Porcine 5,000 Unit/Ml Vial) 6,300 unit 80 unit/kg (6300 unit) IVPUSH PROTOCOL BOLUS PRN; Protocol PRN Reason: 80 unit/kg - Heparin Protocol Heparin Sodium/Sodium Chloride (Heparin Sodium,Porcine/1/2ns) 25,000 unit in 250 mls @ 0 mls/hr IVCONT .Q0M ELISE; Protocol Last Titration: 11/13/23 07:10 Dose: 8 units/kg/hr, 6.34 mls/hr Dextrose (D10) 250 mls @ 750 mls/hr IV Q15M PRN; Protocol PRN Reason: per Hypoglycemia Standing Ord. Insulin Glargine (Insulin Glargine,Hum.Rec.Anlog 100 Unit/Ml 10 Ml Vial) 60 unit SUBCUT DAILY [facility] Insulin Human Lispro (Insulin Lispro 100 Unit/Ml 3 Ml Vial) 0 unit SUBCUT QIDACHS [facility]; Protocol Last Admin: 11/13/23 07:16 Dose: Not Given Lisinopril (Lisinopril 40 Mg Tablet) 40 mg PO BEDTIME [facility]; Protocol Metoprolol Succinate (Metoprolol Succinate Er 12.5 Mg Halftab.Er.24h) 12.5 mg PO DAILY [facility]; Protocol Pantoprazole Sodium (Pantoprazole Sodium 40 Mg/10 Ml Vial) 40 mg IVPUSH DAILY [facility] Last Admin: 11/13/23 09:49 Dose: 40 mg Quetiapine Fumarate (Quetiapine Fumarate 50 Mg Tablet) 150 mg PO BEDTIME [facility] Last Admin: 11/12/23 23:38 Dose: Not Given Ropinirole HCl (Ropinirole Hcl 0.5 Mg Tablet) 0.5 mg PO BEDTIME PRN PRN Reason: Restless legs Sodium Chloride (0.9 % Sodium Chloride Flush 3 Ml Syringe) 3 ml IVFLUSH QSHIFT [facility] Last Admin: 11/13/23 07:03 Dose: Not Given Home Medications ?Medication ?Instructions ?Recorded ?Confirmed ?Last Taken ?Type gabapentin 300 mg capsule 300 mg PO BID 07/28/20 11/01/23 Unknown History lisinopril 40 mg tablet 40 mg PO DAILY 07/28/20 11/01/23 10/25/20 08:00 History amlodipine 5 mg tablet 1 tab PO QAM 10/19/20 11/01/23 05/02/23 10:26 History fluticasone propionate 220 1 puff PO BID 10/19/20 11/01/23 Unknown History mcg/actuation HFA aerosol inhaler (Flovent HFA) metoprolol succinate 25 mg 0.5 tab PO QAM 10/25/20 11/01/23 10/25/20 08:00 History tablet,extended release 24 hr cholecalciferol (vitamin D3) 25 25 mcg PO QAM 10/12/22 11/01/23 Unknown History mcg (1,000 unit) capsule (Vitamin D3) insulin glargine 100 unit/mL (3 60 unit subcut DAILY 10/12/22 11/01/23 Unknown History mL) subcutaneous pen (Lantus Solostar U-100 Insulin) insulin lispro 100 unit/mL 20 unit subcut TID 10/12/22 11/01/23 Unknown History subcutaneous pen lidocaine 5 % topical patch 1 patch topical BID PRN Pain 10/12/22 11/01/23 Unknown History pen needle, diabetic 31 gauge x #1,200 ea 10/12/22 11/01/23 Unknown History 12/12 (UltiCare Pen Needle) pioglitazone 15 mg tablet 15 mg PO QAM 10/12/22 11/01/23 Unknown History prazosin 2 mg capsule 2 mg PO BEDTIME 10/12/22 11/01/23 Unknown History quetiapine 100 mg tablet 150 mg PO BEDTIME 05/05/23 11/01/23 Unknown History quetiapine 25 mg tablet 25 mg PO BID PRN Sleep 05/05/23 11/12/23 Unknown History albuterol sulfate 2.5 mg/3 mL 2.5 mg inhalation Q4-6H PRN 09/10/23 11/01/23 Unknown History (0.083 %) solution for nebulization aspirin 81 mg tablet,delayed 81 mg PO QPM 09/24/23 11/12/23 Unknown History release ropinirole 0.5 mg tablet 0.5 mg PO BEDTIME 09/24/23 11/01/23 Unknown History rosuvastatin 5 mg tablet 5 mg PO QPM 09/24/23 11/01/23 Unknown History semaglutide 0.25 mg or 0.5 mg (2 0.5 mg subcut QWEEK 09/24/23 11/01/23 Unknown History mg/3 mL) subcutaneous pen injector (Ozempic) amlodipine 10 mg tablet 10 mg PO QAM 11/12/23 11/12/23 Unknown History gabapentin 300 mg capsule mg PO 11/12/23 Unknown History insulin glargine 100 unit/mL (3 60 unit subcut DAILY 11/12/23 11/12/23 Unknown History mL) subcutaneous pen (Lantus Solostar U-100 Insulin) lisinopril 40 mg tablet 40 mg PO QPM 11/12/23 11/12/23 Unknown History metoprolol succinate 25 mg 12.5 mg PO QAM 11/12/23 11/12/23 Unknown History tablet,extended release 24 hr quetiapine 100 mg tablet 150 mg PO BEDTIME 11/12/23 11/12/23 Unknown History ropinirole 0.5 mg tablet 0.5 mg PO BEDTIME 11/12/23 11/12/23 Unknown History rosuvastatin 5 mg tablet 5 mg PO QPM 11/12/23 11/12/23 Unknown History Physical Exam 2 Vital Signs: Vital Signs: Last Vital Signs Temp 98.2 F 11/13/23 08:22 Pulse 56 11/13/23 08:22 Resp 13 11/13/23 08:22 BP 151/85 H 11/13/23 08:22 Pulse Ox 95 11/13/23 08:22 O2 Del Method Room Air 11/13/23 08:22 BMI result Body Mass Index 30.9 Const: General: comfortable and no acute distress O rientation/consciousness: patient oriented x3 HEENT: Other: Unremarkable Head: Yes normal to inspection Neck: Neck: Yes normal visual inspection Chest: Chest palpation & inspection: normal inspection of the chest Resp: Auscultation: clear to auscultation bilaterally Cardio: Palpation: normal PMI Heart sounds: S1 normal heart sound present, S2 normal heart sound present, no gallops, Murmur heart sound present systolic II/ and at the right sternal border and no rubs GI: Palpation (GI): Soft to palpation Back/Spine/Pelvis: Other: unremarkable Skin: General skin exam: no rashes or lesions noted Neuro: General: patient oriented x3 Extrem: General: Yes normal to inspection Psych: Mental Status: mental status grossly normal Objective Labs and Meds 11/13/23 04:30 11/13/23 04:30 Lab results: Laboratory Results - last 24 hr 11/12/23 11/12/23 11/12/23 14:46 15:32 17:51 WBC 4.8 RBC 4.32 Hgb 12.4 Hct 36.3 L MCV 84.0 MCH 28.7 MCHC 34.2 RDW 12.9 Plt Count 112 L MPV 9.5 Immature Gran % (Auto) 0.2 Neut % (Auto) 52.9 Lymph % (Auto) 33.6 [place] % (Auto) 11.0 Eos % (Auto) 2.1 Baso % (Auto) 0.2 Lymph # (Auto) 1.6 [place] # (Auto) 0.5 Eos # (Auto) 0.1 Baso # (Auto) 0.0 Abs Immat Gran (auto) 0.01 Absolute Neuts (auto) 2.6 Absolute Nucleated RBC 0.000 Nucleated RBC % (auto) 0.0 PT INR aPTT Heparin Protocol Sodium 139 Potassium 3.6 Chloride 106 Carbon Dioxide 24 Anion Gap 13 BUN 13 Creatinine 0.92 Estim Creat Clear Calc 64.8 Estimated GFR > 60 POC Glucose Random Glucose 274 H Estimat Average Glucose Hemoglobin A1c % Calcium 9.6 Total Bilirubin 0.4 Direct Bilirubin 0.1 AST 62 H ALT 75 H Alkaline Phosphatase 161 H Total Creatine Kinase 272 H Troponin I High Sens 211.3 H* 210.0 H* 226.2 H* Total Protein 7.6 Albumin 3.8 Triglycerides Cholesterol LDL Cholesterol, Calc HDL Cholesterol Lipase 17 Urine Color Yellow Urine Appearance Turbid Urine pH 5.5 Ur Specific [place] 1.020 Urine Protein Trace Urine Glucose (UA) 250 H Urine Ketones Negative Urine Blood Negative Urine Nitrite Negative Ur Leukocyte Esterase Trace H Urine RBC 0-2 Urine WBC 11-20 H Ur Squamous Epith Cells >20 Urine Bacteria 4+ Hyaline Casts 0-2 11/12/23 11/12/23 11/13/23 21:43 22:12 04:30 WBC 4.5 L 4.2 L RBC 4.44 4.20 Hgb 12.7 12.0 Hct 36.8 L 35.5 L MCV 82.9 84.5 MCH 28.6 28.6 MCHC 34.5 33.8 RDW 12.9 12.9 Plt Count 108 L 98 L MPV 10.2 9.9 Immature Gran % (Auto) 0.2 Neut % (Auto) 38.5 L Lymph % (Auto) 46.9 H [place] % (Auto) 11.1 H Eos % (Auto) 3.1 Baso % (Auto) 0.2 Lymph # (Auto) 2.0 [place] # (Auto) 0.5 Eos # (Auto) 0.1 Baso # (Auto) 0.0 Abs Immat Gran (auto) 0.01 Absolute Neuts (auto) 1.6 L Absolute Nucleated RBC 0.000 0.000 Nucleated RBC % (auto) 0.0 0.0 PT 11.3 12.1 INR 0.9 1.0 aPTT Heparin Protocol 40.6 L 119.7 H* D Sodium 138 Potassium 3.6 Chloride 107 Carbon Dioxide 24 Anion Gap 11 L BUN 11 Creatinine 0.86 Estim Creat Clear Calc 69.3 Estimated GFR > 60 POC Glucose 126 H Random Glucose 166 H Estimat Average Glucose 174 Hemoglobin A1c % 7.7 H Calcium 9.2 Total Bilirubin Direct Bilirubin AST ALT Alkaline Phosphatase Total Creatine Kinase Troponin I High Sens Total Protein Albumin Triglycerides 274 H Cholesterol 174 LDL Cholesterol, Calc 68 HDL Cholesterol 52 Lipase Urine Color Urine Appearance Urine pH Ur Specific [place] Urine Protein Urine Glucose (UA) Urine Ketones Urine Blood Urine Nitrite Ur Leukocyte Esterase Urine RBC Urine WBC Ur Squamous Epith Cells Urine Bacteria Hyaline Casts 11/13/23 11/13/23 06:19 07:14 WBC RBC Hgb Hct MCV MCH MCHC RDW Plt Count MPV Immature Gran % (Auto) Neut % (Auto) Lymph % (Auto) [place] % (Auto) Eos % (Auto) Baso % (Auto) Lymph # (Auto) [place] # (Auto) Eos # (Auto) Baso # (Auto) Abs Immat Gran (auto) Absolute Neuts (auto) Absolute Nucleated RBC Nucleated RBC % (auto) PT INR aPTT Heparin Protocol 63.4 D Sodium Potassium Chloride Carbon Dioxide Anion Gap BUN Creatinine Estim Creat Clear Calc Estimated GFR POC Glucose 155 H Random Glucose Estimat Average Glucose Hemoglobin A1c % Calcium Total Bilirubin Direct Bilirubin AST ALT Alkaline Phosphatase Total Creatine Kinase Troponin I High Sens Total Protein Albumin Triglycerides Cholesterol LDL Cholesterol, Calc HDL Cholesterol Lipase Urine Color Urine Appearance Urine pH Ur Specific [place] Urine Protein Urine Glucose (UA) Urine Ketones Urine Blood Urine Nitrite Ur Leukocyte Esterase Urine RBC Urine WBC Ur Squamous Epith Cells Urine Bacteria Hyaline Casts ECG Interpretation: EKG with sinus bradycardia 58/Min; left ventricle hypertrophy with repolarization changes. Similar to prior EKG. Imaging Radiologist's impression: Impressions Abdomen/Pelvis CT 11/12/23 15:06 IMPRESSION: There is a stable nonobstructive calculus versus cluster of calculi within the lower pole of the left kidney measuring up to 5.4 mm. The liver is cirrhotic. There is splenomegaly. There is a 2 mm nodule within the right middle lobe. According to the UPDATED 2017 Fleischner Society recommendations, the advised follow-up imaging for solid nodules < 6 mm is: LOW RISK PATIENT: No routine follow-up. HIGH RISK PATIENT: Optional CT at 12 months. Fleischner guidelines were followed. Assessment and Plan (1) NSTEMI (non-ST elevated myocardial infarction): Status: Acute Plan Atypical symptoms which could be from peripheral neuropathy rather than anginal. She does have elevated troponins which are 211, 210 and 226. She does have a history of elevated troponins and they were elevated even in 2020 and 2019. She does have risk factors for coronary disease but the presentation does not sound clearly like ACS. The arm discomfort is more likely from neuropathy than cardiac in nature. Considering her risk factors, may still warrant noninvasive workup. She does have a history of cirrhosis and hence they will be elevated bleeding risk with any invasive procedures and hence that will have to be taken into consideration. Will check echocardiogram. Then consider stress test. May stop heparin drip. Procedures Date of Service Date of Service: 11/13/23
--- NOTE | 2023-11-13 10:08 | PC.NURSE ---
assumed care of pt at 0700. pt a&o x4, calm, and cooperative. heparin drip currently infusing at 8/hr. pt uses bedside commode for bleeding risk. pharmacy called and lantus rescheduled for before bedtime per pt request. metoprolol not in ED pyxis. per pharmacy, is on [facility]. inpatient report complete. awaiting transport to room. plan of care ongoing.
--- NOTE | 2023-11-13 11:28 | PHA.MEDREC ---
Pharmacy Consult ? Medication Reconciliation Pharmacy has completed the medication reconciliation. Spoke to patient and confirmed medication list. Patient said she takes Flovent 1 puff BID and Asmanex prn. She injects lantus 60 units qhs and humalog 20 units tid. She takes famotidine 20 mg tid and 2 patches of lidocaine qd.
--- NOTE | 2023-11-13 11:35 | CA_ITS ---
Acquisition Time: 2023-11-14 09:06:11 Total Exercise Time: 00:02:28 Test Indications: nstemi, sob Medications: see h Protocol: SARITHA Max HR: 111 BPM 69% of Pred: 160 BPM Max BP: 158/084 mmHG Max Work Load: 3.8 METS Exercise stress test exercise 2 min 28 sec of Saritha protocol achieving 61% with request to stop due to too fast and mild to moderate SOB, no chest discomfort, with isolated PVCs, with normotensive response to exercise, with nondiagnostic EKGs. Test changed to pharmacological stress test once breathing resolved. Pharmacological stress test with Lexiscan injection while sitting and kicking her legs, with mild SOB, no chest discomfort, with uisolated PVC, with normotensive response to injection, with nondiagnoisitic EKGs. Aminophylline 75mg IVP given to reverse Lexiscan., Nuclear images pending. Test reviewed with Dr. Lu. Referred By: Keesha Gillespie Overread By: Lizzy England
[2023-11-13 12:06] LABS: Glucose, Whole Blood 193 mg/dL (60-115)
[2023-11-13] MEDS: Cholecalciferol (Vitamin D3) 25 MCG TABLET PO (12:17)
[2023-11-13] MEDS: Pyridoxine HCl (Vitamin B6) 50 MG TABLET 100 MG PO (12:17)
[2023-11-13] MEDS: Insulin Lispro 100 UNIT/ML 3 ML VIAL SUBCUT ×3 (12:18→20:35)
[2023-11-13] MEDS: Heparin Sodium,Porcine 5,000 UNIT/ML VIAL 5000 UNIT SUBCUT ×2 (12:18→20:35)
[2023-11-13 13:26] LABS: PTT Heparin Drip 39.4 SEC (53-77.9)
--- NOTE | 2023-11-13 15:04 | MHC.CM.PN ---
Met with pt with assistance from analysis engineer. Pt lives alone at home, she receives ANIMAL TRAINER services from her daughter 17.5hrs/week, and uses a cane. Pts daughter will transport her home at D/C. Pt declined to make a HCP at this time. PCP: Wanda HARTMANN
--- NOTE | 2023-11-13 15:15 | HO.PM.IMPN ---
Subjective Subjective Date of Service: 11/13/23 Interval History: chest pain Review of Systems chest pain seems improving no sob Physical Exam Vital Signs: Vital Signs: Last Vital Signs Temp 97.0 F 11/13/23 11:23 Pulse 56 11/13/23 11:23 Resp 18 11/13/23 11:23 BP 159/89 H 11/13/23 11:23 Pulse Ox 99 11/13/23 11:23 O2 Del Method Room Air 11/13/23 11:23 BMI result Body Mass Index 31.1 Appearance: Alert.? Oriented X3.? cvs: rrr, [id number] , no murmur res: clear to auscultation ,no rhonchii or wheezing abd: no rebound or guarding ,nt, bs present. ext pulses present , no cyanosis . neuro: axo3 , nonfocal. Objective Data Active Medications Albuterol Sulfate (Albuterol Sulfate (0.083%) 2.5 Mg/3 Ml Vial.Neb) 2.5 mg INHALE Q4H PRN PRN Reason: sob Amlodipine Besylate (Amlodipine Besylate 10 Mg Tablet) 10 mg PO DAILY [facility]; Protocol Last Admin: 11/13/23 09:49 Dose: 10 mg Documented By: TONIO Aspirin (Aspirin Enteric Coated 81 Mg Tablet.) 81 mg PO BEDTIME [facility] Atorvastatin Calcium (Atorvastatin Calcium 20 Mg Tablet) 20 mg PO BEDTIME ELISE Famotidine (Famotidine 20 Mg Tablet) 20 mg PO TID [facility] Fluticasone Propionate (Fluticasone Propionate 100 Mcg Blst.W.Dev) 1 puff INHALE RBID [facility] Fluticasone Propionate (Fluticasone Propionate 100 Mcg Blst.W.Dev) 2 puff INHALE Q12H PRN PRN Reason: sob Gabapentin (Gabapentin 300 Mg Capsule) 300 mg PO BID [facility] Glucose (Glucose Gel 15 Gm Gel..Gram.) 15 gm PO Q15M PRN; Protocol PRN Reason: per Hypoglycemia Standing Ord. Heparin Sodium (Porcine) (Heparin Sodium,Porcine 5,000 Unit/Ml Vial) 5,000 unit SUBCUT Q8H [facility] Last Admin: 11/13/23 12:18 Dose: 5,000 unit Documented By: PAULA Dextrose (D10) 250 mls @ 750 mls/hr IV Q15M PRN; Protocol PRN Reason: per Hypoglycemia Standing Ord. Insulin Glargine (Insulin Glargine,Hum.Rec.Anlog 100 Unit/Ml 10 Ml Vial) 60 unit SUBCUT BEDTIME [facility] Insulin Human Lispro (Insulin Lispro 100 Unit/Ml 3 Ml Vial) 0 unit SUBCUT QIDACHS [facility]; Protocol Last Admin: 11/13/23 12:18 Dose: 2 unit Documented By: PAULA Lidocaine (Lidocaine 4 % Patch Adh..Patch) 2 patch TRANSDERMA DAILY PRN PRN Reason: Pain Lisinopril (Lisinopril 40 Mg Tablet) 40 mg PO BEDTIME [facility]; Protocol Metoprolol Succinate (Metoprolol Succinate Er 12.5 Mg Halftab.Er.24h) 12.5 mg PO DAILY [facility]; Protocol Last Admin: 11/13/23 11:10 Dose: Not Given Documented By: PAULA Non-Admin Reason: HR 50 Non-Formulary Medication (Semaglutide [Ozempic]) 0.5 mg SUBCUT MO [facility] Omeprazole (Omeprazole 20 Mg Capsule.) 20 mg PO BID@0630,1630 [facility] Pantoprazole Sodium (Pantoprazole Sodium 40 Mg/10 Ml Vial) 40 mg IVPUSH DAILY [facility] Last Admin: 11/13/23 09:49 Dose: 40 mg Documented By: TONIO Pioglitazone HCl (Pioglitazone Hcl 15 Mg Tablet) 15 mg PO DAILY [facility] Last Admin: 11/13/23 12:17 Dose: 15 mg Documented By: PAULA Pyridoxine HCl (Pyridoxine Hcl (Vitamin B6) 50 Mg Tablet) 100 mg PO DAILY [facility] Last Admin: 11/13/23 12:17 Dose: 100 mg Documented By: PAULA Quetiapine Fumarate (Quetiapine Fumarate 50 Mg Tablet) 150 mg PO BEDTIME [facility] Last Admin: 11/12/23 23:38 Dose: Not Given Documented By: GUZMAN Non-Admin Reason: Patient Refused Quetiapine Fumarate (Quetiapine Fumarate 25 Mg Tablet) 25 mg PO BID PRN PRN Reason: Sleep Ropinirole HCl (Ropinirole Hcl 0.5 Mg Tablet) 0.5 mg PO BEDTIME PRN PRN Reason: Restless legs Senna/Docusate Sodium (Sennosides/Docusate Sodium Tablet) 2 tab PO BEDTIME PRN PRN Reason: Constipation Sodium Chloride (0.9 % Sodium Chloride Flush 3 Ml Syringe) 3 ml IVFLUSH QSHIFT [facility] Last Admin: 11/13/23 07:03 Dose: Not Given Documented By: TONIO Non-Admin Reason: Med Not Available Trazodone HCl (Trazodone Hcl 50 Mg Tablet) 150 mg PO BEDTIME PRN PRN Reason: Sleep Vitamin D (Cholecalciferol (Vitamin D3) 25 Mcg Tablet) 25 mcg PO DAILY [facility] Last Admin: 11/13/23 12:17 Dose: 25 mcg Documented By: PAULA Labs 11/13/23 04:30 11/13/23 04:30 Labs: Laboratory Results - last 24 hr 11/12/23 11/12/23 11/12/23 15:32 17:51 21:43 MCV 82.9 MCH 28.6 MCHC 34.5 RDW 12.9 Plt Count 108 L MPV 10.2 Immature Gran % (Auto) Neut % (Auto) Lymph % (Auto) [place] % (Auto) Eos % (Auto) Baso % (Auto) Lymph # (Auto) [place] # (Auto) Eos # (Auto) Baso # (Auto) Abs Immat Gran (auto) Absolute Neuts (auto) Absolute Nucleated RBC 0.000 Nucleated RBC % (auto) 0.0 PT 11.3 INR 0.9 aPTT Heparin Protocol 40.6 L Anion Gap Estim Creat Clear Calc Estimated GFR POC Glucose Random Glucose Estimat Average Glucose 174 Hemoglobin A1c % 7.7 H Calcium Troponin I High Sens 210.0 H* 226.2 H* Triglycerides Cholesterol LDL Cholesterol, Calc HDL Cholesterol Urine Color Yellow Urine Appearance Turbid Urine pH 5.5 Ur Specific [place] 1.020 Urine Protein Trace Urine Glucose (UA) 250 H Urine Ketones Negative Urine Blood Negative Urine Nitrite Negative Ur Leukocyte Esterase Trace H Urine RBC 0-2 Urine WBC 11-20 H Ur Squamous Epith Cells >20 Urine Bacteria 4+ Hyaline Casts 0-2 11/12/23 11/13/23 11/13/23 22:12 04:30 06:19 MCV 84.5 MCH 28.6 MCHC 33.8 RDW 12.9 Plt Count 98 L MPV 9.9 Immature Gran % (Auto) 0.2 Neut % (Auto) 38.5 L Lymph % (Auto) 46.9 H [place] % (Auto) 11.1 H Eos % (Auto) 3.1 Baso % (Auto) 0.2 Lymph # (Auto) 2.0 [place] # (Auto) 0.5 Eos # (Auto) 0.1 Baso # (Auto) 0.0 Abs Immat Gran (auto) 0.01 Absolute Neuts (auto) 1.6 L Absolute Nucleated RBC 0.000 Nucleated RBC % (auto) 0.0 PT 12.1 INR 1.0 aPTT Heparin Protocol 119.7 H* D 63.4 D Anion Gap 11 L Estim Creat Clear Calc 69.3 Estimated GFR > 60 POC Glucose 126 H Random Glucose 166 H Estimat Average Glucose Hemoglobin A1c % Calcium 9.2 Troponin I High Sens Triglycerides 274 H Cholesterol 174 LDL Cholesterol, Calc 68 HDL Cholesterol 52 Urine Color Urine Appearance Urine pH Ur Specific [place] Urine Protein Urine Glucose (UA) Urine Ketones Urine Blood Urine Nitrite Ur Leukocyte Esterase Urine RBC Urine WBC Ur Squamous Epith Cells Urine Bacteria Hyaline Casts 11/13/23 11/13/23 11/13/23 07:14 11:39 12:58 MCV MCH MCHC RDW Plt Count MPV Immature Gran % (Auto) Neut % (Auto) Lymph % (Auto) [place] % (Auto) Eos % (Auto) Baso % (Auto) Lymph # (Auto) [place] # (Auto) Eos # (Auto) Baso # (Auto) Abs Immat Gran (auto) Absolute Neuts (auto) Absolute Nucleated RBC Nucleated RBC % (auto) PT INR aPTT Heparin Protocol 39.4 L D Anion Gap Estim Creat Clear Calc Estimated GFR POC Glucose 155 H 193 H Random Glucose Estimat Average Glucose Hemoglobin A1c % Calcium Troponin I High Sens Triglycerides Cholesterol LDL Cholesterol, Calc HDL Cholesterol Urine Color Urine Appearance Urine pH Ur Specific [place] Urine Protein Urine Glucose (UA) Urine Ketones Urine Blood Urine Nitrite Ur Leukocyte Esterase Urine RBC Urine WBC Ur Squamous Epith Cells Urine Bacteria Hyaline Casts Microbiology Microbiology Results: Microbiology 11/12/23 Unknown Urine Culture - Final Urine clean catch - Urine damon top No growth. Assessment and Plan (1) NSTEMI (non-ST elevated myocardial infarction): Status: Acute Assessment and Plan: 58 years old woman admitted with: elevated troponins: moniter on Telemetry. trops in 200;s range flat Check lipid panel noted and hemoglobin A1c: 7.7 echo added Cardiology consult-seems chest pain atypical, stop heparin drip , may need stress test. aspirin, statin, ACEI and BB. stop heparin IV infusion,may need stress test . Type 2 diabetes mellitus. Continue Lantus and insulin sliding scale. Diabetic diet. Uses Ozempic. Essential hypertension. Continue metoprolol, Lasix and amlodipine. Hyperlipidemia. Continue statin. Chronic thrombocytopenia, at baseline. Likely due to cirrhosis. Continue to monitor. Chronic hepatitis-C infection. Untreated (pt stated she did not tolerate Hep C tx). Elevated LFTs. Likely secondary to chronic hepatitis-C infection. Continue to monitor. ?UTI. Abundant epitelial cells. Likely contaminant. Avoid antibiotics for now -will follow urine culture-negative. Hx of liver cirrhosis. No evidence encephalopathy, ascites or GI bleeding. GERD. Continue PPI. Bipolar disorder. Continue Seroquel. Hx of nephrolithiasis. No microscopic hematuria. No evidence of obstruction on CT scan. ongoing need for hospitisation- for chest pain/elevated trop-need cardiac workup incuding stress test and tele monitering,expert follow up. Quality Stroke Does the patient have a stroke diagnosis?: No VTE Prior VTE?: No VTE Risk Level:: Medical - moderate - high VTE Device Contraindication: Treatment Not Indicated VTE Drug Contraindication: N/A - Med Ordered
[2023-11-13] MEDS: Famotidine 20 MG TABLET PO ×2 (15:33→20:28)
[2023-11-13 16:05] LABS: Glucose, Whole Blood 162 mg/dL (60-115)
--- NOTE | 2023-11-13 16:26 | PC.NURSE ---
Patient arrived to unit from ED on stretcher able to ambulate steady to bed. Refusing bed alarm even with education, Dr Gillespie aware. Pt A&OX4. QUARLES to command 4/5 per pt baseline numbness/tingling to BUE and BLE occasionally, c/o intermittent pain to bilat arms ongoing. [facility] [place] denies SOB or CP. SB on tele in low 50's metoprolol held per parameter. Approximately 1400 patient had few brief episodes junctional rhythm in low 30's while asleep Dr Gillespie notified and EKG completed per order. Off unit for testing in afternoon.
[2023-11-13] MEDS: Omeprazole 20 MG CAPSULE.DR PO (17:00)
[2023-11-13] MEDS: 0.9 % Sodium Chloride Flush 3 ML SYRINGE IVFLUSH (17:01)
[2023-11-13 17:43] LABS: Thyroid Stimulating Hormone 3.15 uIU/mL (0.32-4.0)
[2023-11-13] MEDS: Fluticasone Propionate 100 MCG BLST.W.DEV 1 PUFF INHALE (19:39)
[2023-11-13 19:48] LABS: Glucose, Whole Blood 168 mg/dL (60-115)
[2023-11-13] MEDS: Aspirin Enteric Coated 81 MG TABLET.DR PO (20:28)
[2023-11-13] MEDS: lisinopriL 40 MG TABLET PO (20:30)
[2023-11-13] MEDS: Atorvastatin Calcium 20 MG TABLET PO (20:34)
[2023-11-13] MEDS: Insulin Glargine,Hum.rec.anlog 100 UNIT/ML 10 ML VIAL 60 UNIT SUBCUT (20:36)
--- NOTE | 2023-11-13 22:16 | MHC.PIE ---
p; pt refusing gabapentin and seroquel asking for tylenol for pain and sleep i; dr patton notified; new order - motrin 400 mg po - hx of cirrhosis e; will cont to monitor
[2023-11-14 03:07] VITALS: BP 117/85; PULSE 67; RESP 20; TEMP 35.8; O2SAT 95
[2023-11-14] MEDS: Heparin Sodium,Porcine 5,000 UNIT/ML VIAL 5000 UNIT SUBCUT ×2 (03:44→11:21)
[2023-11-14] MEDS: Omeprazole 20 MG CAPSULE.DR PO (05:56)
[2023-11-14 07:19] VITALS: BP 117/68; PULSE 56; RESP 18; TEMP 36.1; O2SAT 94
[2023-11-14] MEDS: Cholecalciferol (Vitamin D3) 25 MCG TABLET PO (08:00)
[2023-11-14] MEDS: Famotidine 20 MG TABLET PO (08:00)
[2023-11-14 08:01] VITALS: BP 117/68
[2023-11-14] MEDS: amLODIPine Besylate 10 MG TABLET PO (08:01)
[2023-11-14] MEDS: Pyridoxine HCl (Vitamin B6) 50 MG TABLET 100 MG PO (08:01)
[2023-11-14] MEDS: Pantoprazole Sodium 40 MG/10 ML VIAL IVPUSH (08:01)
[2023-11-14] MEDS: 0.9 % Sodium Chloride Flush 3 ML SYRINGE IVFLUSH ×2 (08:04)
[2023-11-14] MEDS: Fluticasone Propionate 100 MCG BLST.W.DEV 1 PUFF INHALE (08:07)
[2023-11-14 08:08] VITALS: PULSE 70; RESP 16; O2SAT 97
--- NOTE | 2023-11-14 10:37 | P.PNCA_ITS ---
Subjective Subjective Date of Service: 11/14/23 Interval history: She states she feels okay. She still gets some tingling in the hands when she is lying down in certain positions that sounds neurological. However, no clear- cut angina. Review of Systems Review of Systems Yes all other systems are reviewed and are negative Constitutional: Reports as per HPI and Reports no additional constitutional complaints Eyes: Reports as per HPI and Denies no additional eye complaints Denies system reviewed and no additional complaints, except as documented and Reports as per HPI Cardiovascular: Reports as per HPI, Reports no additional cardiovascular complaints, Denies acrocyanosis, Denies cool extremities, Denies chest pain, Denies leg edema, Denies lightheadedness, Denies palpitations and Denies dyspnea Respiratory: Reports as per HPI, Denies no additional respiratory complaints and Denies dyspnea Gastrointestinal: Reports as per HPI and Denies no additional gastrointestinal complaints Genitourinary: Reports as per HPI Musculoskeletal: Reports no additional musculoskeletal complaints and Reports as per HPI Skin/Breast: Reports system reviewed and no additional complaints, except as docu Reports system reviewed and no additional complaints, except as documented and Reports as per HPI Psychiatric: Reports no additional psychiatric complaints and Reports as per HPI Endocrine: Reports no additional endocrine complaints, Reports as per HPI and Denies palpitations Hematologic/Lymphatic: Reports no additional hematologic/lymphatic complaints and Reports as per HPI Allergic/Immunologic: Reports no additional allergic/immunologic complaints and Reports as per HPI Physical Exam Vital Signs: Last Vital Signs Temp 97.0 F 11/14/23 07:19 Pulse 70 11/14/23 08:08 Resp 16 11/14/23 08:08 BP 117/68 11/14/23 08:01 Pulse Ox 94 11/14/23 07:19 O2 Del Method Room Air 11/14/23 07:19 BMI result Body Mass Index 31.1 Const General: comfortable and no acute distress Orientation/consciousness: patient oriented x3 HEENT Other: Unremarkable Head: Yes normal to inspection Neck Neck: Yes normal visual inspection Chest Chest palpation & inspection: normal inspection of the chest Resp Auscultation: clear to auscultation bilaterally Cardio Palpation: normal PMI Heart sounds: S1 normal heart sound present, S2 normal heart sound present, no gallops, no murmurs and no rubs GI Palpation (GI): Soft to palpation Back/Spine/Pelvis Other: unremarkable Skin General skin exam: no rashes or lesions noted Neuro General: patient oriented x3 Extrem General: Yes normal to inspection Psych Mental Status: mental status grossly normal Objective Labs and Meds 11/13/23 04:30 11/13/23 04:30 Lab results: Laboratory Results - last 24 hr 11/13/23 11/13/23 11/13/23 04:30 11:39 12:58 aPTT Heparin Protocol 39.4 L D POC Glucose 193 H TSH 3.15 11/13/23 11/13/23 16:00 19:42 aPTT Heparin Protocol POC Glucose 162 H 168 H TSH Imaging Radiologist's impression: Impressions Chest X-Ray 11/12/23 21:55 IMPRESSION: Low lung volumes. No gross evidence of pneumonia. Progress Note: A&P Assessment and plan (1) NSTEMI (non-ST elevated myocardial infarction): Status: Acute Plan Elevated troponins; risk factors; atypical symptoms. Echocardiogram with LVEF of 60%; severe left ventricular hypertrophy. Ascending aortic size 4 cm. Left ventricular hypertrophy could also additionally contrinute to elevated troponins due to increased mass. Await stress perfusion imaging study. Otherwise, she has a history of cirrhosis which will increase bleeding risk and this will need to be taken into account before any invasive plans-if necessary. Time Spent With Patient Time: Total time managing care of this patient today ____ minutes. Progress Note: Quality Stroke Does the patient have a stroke diagnosis?: No Procedures Date of Service Date of Service: 11/14/23
[2023-11-14 11:09] LABS: Glucose, Whole Blood 138 mg/dL (60-115)
[2023-11-14 11:09] LABS: Glucose, Whole Blood 239 mg/dL (60-115)
[2023-11-14 11:17] VITALS: BP 127/73; PULSE 63; RESP 20; TEMP 36.2; O2SAT 96
[2023-11-14] MEDS: Insulin Lispro 100 UNIT/ML 3 ML VIAL SUBCUT (11:20)
--- NOTE | 2023-11-14 14:13 | PM.DS ---
DS: Providers Provider Date of Service: 11/14/23 Date of admission: 11/12/23 21:33 Date of discharge: 11/14/23 Primary care physician: Wanda Bonilla NP Consults: 11/12/23 21:35 Consult to Cardiology Routine Consulting Provider: [facility] Reason for consultation: NSTEMI Has provider been notified: Yes Attending physician on discharge: Keesha Gillespie Discharging clinician: Keesha Gillespie DS: Diagnosis Discharge Diagnosis (1) NSTEMI (non-ST elevated myocardial infarction): Status: Acute DS: Summary Hospital Course Hospital Course: 58 years old woman with past medical history significant for type 2 diabetes mellitus on insulin, hypertension, liver cirrhosis, chronic hepatitis-C infection (untreated) and hyperlipidemia presents to the emergency department complaining of 3 days' history of upper extremity pain. Patient also reported shortness on breath at nighttime and occasional dizziness (loss of balance). She also reported some occasional right-sided headache. She denied nausea, vomiting, fever, chills or diarrhea. She denies abdominal pain, pain with urination or bloody urine. She is a former tobacco smoker. Denies alcohol or illicit drug use. In the ED, she was found to have normal vital signs. Blood workup showed no leukocytosis. There is mild thrombocytopenia and hemoglobin is normal. There are no electrolyte imbalances. Glucose is 274. Transaminases and alk-phos are elevated. Bilirubin is normal. Lipase and albumin are normal. CK is 272. Troponin elevated (211.3--> 210.0--> 226.2. Urinalysis showed trace leukocyte steroids, RBCs 0-2 and WBC 11-20, however there is abundant squamous cells. ECG showed no ischemic changes. Abdomen and pelvis CT scan showed stable nonobstructive calculus versus cluster of calculi within the lower pole of the left kidney and 2 mm nodule within the right middle lobe. It also showed finding consistent with liver cirrhosis and splenomegaly. ED tx: Aspirin 81 mg PO, gabapentin 100 mg PO and heparin infusion. Hospital course: Patient was admitted to the hospital because of chest pain found to have mild elevation troponin: Initially started on heparin drip, troponin flat, echo was done : ef 60% ,no evidence of regional wall motion abnormalities. Myocardial perfusion imaging study shows normal myocardial perfusion. Chest pain seems to be resolved,Left ventricular hypertrophy could also additionally contrinute to elevated troponins . Patient will be going home-continue aspirin, statin, beta-blockers at home. Follow-up with PCP ,consider outpatient cardiology follow-up. Above management discussed with the patient detail length she understand and in agreement with the plan, time spent 40 minute. Time Attestation Total time managing care of this patient today: 40 mintues. Discharge Coordination Time (in mins): 40 min Quality: Safe Use of Opioids Does Pt have an Active Cancer Diagnosis on the Problem List?: No Quality: Stroke Does the patient have a stroke diagnosis?: No Physical Exam Vital Signs: Vital Signs: Last Vital Signs Temp 97.1 F 11/14/23 11:17 Pulse 63 11/14/23 11:17 Resp 20 11/14/23 11:17 BP 127/73 11/14/23 11:17 Pulse Ox 96 11/14/23 11:17 O2 Del Method Room Air 11/14/23 11:17 BMI result Body Mass Index 31.1 Appearance: Alert.? Oriented X3.? cvs: rrr, [id number] , no murmur res: clear to auscultation ,no rhonchii or wheezing abd: no rebound or guarding ,nt, bs present. ext pulses present , no cyanosis . neuro: axo3 , nonfocal. DS: Data Data Completed and Pending Labs on day of discharge: Laboratory Results - last 24 hr 11/13/23 11/13/23 11/13/23 04:30 16:00 19:42 POC Glucose 162 H 168 H TSH 3.15 11/14/23 11/14/23 07:08 11:05 POC Glucose 138 H 239 H TSH Imaging Chest x-ray: Radiologist's impression: ITS Impressions Abdomen/Pelvis CT 11/12/23 15:06 IMPRESSION: There is a stable nonobstructive calculus versus cluster of calculi within the lower pole of the left kidney measuring up to 5.4 mm. The liver is cirrhotic. There is splenomegaly. There is a 2 mm nodule within the right middle lobe. According to the UPDATED 2017 Fleischner Society recommendations, the advised follow-up imaging for solid nodules < 6 mm is: LOW RISK PATIENT: No routine follow-up. HIGH RISK PATIENT: Optional CT at 12 months. Fleischner guidelines were followed. Chest X-Ray 11/12/23 21:55 IMPRESSION: Low lung volumes. No gross evidence of pneumonia. Myocardial Perfusion Scan Nuc Med 11/14/23 10:36 Impression: 1. Myocardial perfusion imaging study shows normal myocardial perfusion 2. Gated LVEF is 45%, although visually there are LV systolic function appears to be within normal range 3. Transient ischemic dilatation not present EKG is nondiagnostic for ischemia echo: The left ventricular systolic function is normal. The calculated ejection fraction is 60% by biplane method. - There is severely increased left ventricular wall thickness. - No obvious valvular pathology seen on this study. - There is mild dilatation of the ascending aorta measuring 4.00 cm. Discharge Plan Discharge Anticipated Discharge Date/Time: 11/14/23 14:06 Patient Disposition: Home, Self-Care Discharge Diagnosis: elevated tropnins and chest pain Referrals: Wanda Bonilla, WHAT JOB TITLES MEAN [Primary Care Provider] - 1 Week Discharge Medications: Continued quetiapine 25 mg tablet 25 mg PO BID PRN (Reason: Sleep) insulin glargine [Lantus Solostar U-100 Insulin] 100 unit/mL (3 mL) insulin pen 60 unit subcut BEDTIME quetiapine 100 mg tablet 150 mg PO BEDTIME lisinopril 40 mg tablet 40 mg PO QPM amlodipine 10 mg tablet 10 mg PO QAM metoprolol succinate 25 mg tablet extended release 24 hr 12.5 mg PO QAM ropinirole 0.5 mg tablet 0.5 mg PO BEDTIME rosuvastatin 5 mg tablet 5 mg PO BEDTIME famotidine 20 mg tablet 20 mg PO TID pyridoxine (vitamin B6) 100 mg tablet 100 mg PO QAM Senna Plus 8.6-50 mg capsule 2 cap PO BEDTIME PRN (Reason: Constipation) fluticasone propionate 110 mcg/actuation HFA aerosol inhaler 1 puff INHALATION Q12H Asmanex HFA 100 mcg/actuation HFA aerosol inhaler 2 puff INHALATION Q12H PRN (Reason: sob) trazodone 150 mg Tablet 150 mg PO BEDTIME PRN (Reason: Sleep) gabapentin 300 mg capsule 300 mg PO BID esomeprazole magnesium 20 mg capsule,delayed release(DR/EC) 20 mg PO BID 30 Days Qty: 60 3RF (DME) pen needle, diabetic [UltiCare Pen Needle] 31 gauge x 5/16 needle See Rx Instructions .ROUTE QID Qty: 1200 Rx Instructions: As directed insulin lispro 100 unit/mL insulin pen 20 unit subcut TID lidocaine 5 % adhesive patch,medicated 2 patch topical DAILY PRN (Reason: Pain) pioglitazone 15 mg tablet 15 mg PO QAM cholecalciferol (vitamin D3) [Vitamin D3] 25 mcg (1,000 unit) capsule 25 mcg PO QAM albuterol sulfate 2.5 mg /3 mL (0.083 %) solution for nebulization 2.5 mg inhalation Q4H PRN (Reason: sob) Ozempic 0.25 mg or 0.5 mg (2 mg/3 mL) pen injector 0.5 mg subcut MO aspirin 81 mg tablet,delayed release (DR/EC) 81 mg PO QPM Discharge Orders: Discharge Order (Routine); Ordered 11/14/23 Ordered By: Keesha Gillespie Diet: Advance to usual diet Activity on Discharge: As tolerated Stand Alone Forms: Patient Portal Discharge page Print Language: Pashto Care Plan Goals: Patient was admitted to the hospital because of chest pain found to have mild elevation troponin: Initially started on heparin drip, troponin flat, echo was done : ef 60% ,no evidence of regional wall motion abnormalities. Myocardial perfusion imaging study shows normal myocardial perfusion. Chest pain seems to be resolved,Left ventricular hypertrophy could also additionally contrinute to elevated troponins . Patient will be going home-continue aspirin, statin, beta-blockers at home. Follow-up with PCP ,consider outpatient cardiology follow-up. Health Concerns: As above. Plan of Treatment: As above. Assessment: As above. Patient Instructions: Peripheral Neuropathy (ED)
== END 2023-11-14 15:15 | disposition home or self-care (01) | DRG 203 ==
LOC: HO.ED 21:13 → HO.EDOVER 21:49 → HO.IMC 11-13 07:53
PROVIDERS: Admitting Provider Internal Medicine; Emergency Provider Emergency Medicine; PCP Nurse Practitioner Primary Care; Visit Provider Internal Medicine
DX: R07.9 Chest pain, unspecified (principal); E11.42 Type 2 diabetes mellitus with diabetic polyneuropathy; D69.59 Other secondary thrombocytopenia; B18.2 Chronic viral hepatitis C; E78.5 Hyperlipidemia, unspecified; K74.60 Unspecified cirrhosis of liver; K21.9 Gastro-esophageal reflux disease without esophagitis; F31.9 Bipolar disorder, unspecified; R79.89 Other specified abnormal findings of blood chemistry; Z87.442 Personal history of urinary calculi; Z79.4 Long term (current) use of insulin; Z79.82 Long term (current) use of aspirin; Z79.85 Long-term (current) use of injectable non-insulin antidiabetic drugs; Z79.899 Other long term (current) drug therapy
CPT/HCPCS: 36415; 71045; 74176; 78452; 80048; 80061; 80076; 81001; 82550; 82947; 83036; 83690; 84443; 84484; 85025; 85027; 85610; 85730; 87086; 93005; 93017; 93306; 93356; 99285; A9500; C9113; J0280; J1644; J2785; Q9957

== ENCOUNTER 2023-11-12 21:33 | Outpatient (BNV) | payer MEDICAID, SELFPAY | END 2023-11-13 07:00 | PROVIDERS: Admitting Provider Internal Medicine; Emergency Provider Emergency Medicine; PCP Nurse Practitioner Primary Care; Visit Provider Internal Medicine | DX: R06.02 Shortness of breath (principal); I49.3 Ventricular premature depolarization; R07.9 Chest pain, unspecified | CPT/HCPCS: 78452; 93010; 93016; 93018; 93306; 93356 ==

== ENCOUNTER → 2023-11-12 21:33 | Outpatient (BNV) | payer MEDICAID, SELFPAY | PROVIDERS: Admitting Provider Internal Medicine; Emergency Provider Emergency Medicine; PCP Nurse Practitioner Primary Care; Visit Provider Internal Medicine | DX: I21.4 Non-ST elevation (NSTEMI) myocardial infarction (principal) | CPT/HCPCS: 99223; 99231; 99239 ==

== ENCOUNTER → 2023-11-12 21:33 | Outpatient (BNV) | payer MEDICAID, SELFPAY | PROVIDERS: Admitting Provider Internal Medicine; Emergency Provider Emergency Medicine; PCP Nurse Practitioner Primary Care; Visit Provider Internal Medicine | DX: I21.4 Non-ST elevation (NSTEMI) myocardial infarction (principal) | CPT/HCPCS: 93010; 99223; 99233 ==

== ENCOUNTER 2023-12-20 13:34 | Outpatient (AMB) | payer MEDICAID, SELFPAY ==
--- NOTE | 2023-12-20 14:16 | A.OFFVIS_ITS ---
Vital Signs 12/20/23 14:17 Height 5 ft 3 in Weight 176 lb 5.917 oz BMI 31.2 BP 130/68 Blood Pressure Location Lt brachial Position Sitting Pulse 61 Pulse Source Pulse Oximeter Intake Visit Reasons: [facility] f/u per HS Allergies morphine Adverse Reaction (Verified 11/12/23 10:56) Abdominal Pain Medication List - Last Reconciled 12/21/23 by Lizzy England NP albuterol sulfate 2.5 mg inhalation Q4H PRN amlodipine 10 mg PO QAM aspirin 81 mg PO QPM carvedilol 6.25 mg PO cholecalciferol (vitamin D3) (Vitamin D3) 25 mcg PO QAM esomeprazole magnesium 20 mg PO BID 30 days famotidine 20 mg PO TID fluticasone propionate 110 mcg/actuation 1 puff inhalation Q12H gabapentin 300 mg PO BID insulin glargine (Lantus Solostar U-100 Insulin) 60 units subcut BEDTIME insulin lispro 20 units subcut TID lidocaine 5% 2 patches topical DAILY PRN lisinopril 40 mg PO QPM mometasone 100 mcg/actuation (Asmanex HFA) 2 puffs inhalation Q12H PRN pen needle, diabetic (UltiCare Pen Needle) As directed pioglitazone 15 mg PO QAM pyridoxine (vitamin B6) 100 mg PO QAM quetiapine 25 mg PO BID PRN quetiapine 150 mg PO BEDTIME ropinirole 0.5 mg PO BEDTIME rosuvastatin 5 mg PO BEDTIME semaglutide (Ozempic) 0.5 mg subcut MO sennosides-docusate sodium 8.6-50 mg (Senna Plus) 2 caps PO BEDTIME PRN trazodone 150 mg PO BEDTIME PRN HPI Comments Details: 58-year-old female presents today for a follow-up after being at [facility] on 11/13. She had a NSTEMI. Echo showed severe LV hypertrophy. She had myocardial perfusion imaging which shows normal perfusion. She has a medical history of type 2 diabetes, hypertension, and dyslipidemia. She reports she overall feels good. No chest pains or shortness of breath. She reports she has a lot of neuropathy pain. Sates her blood pressures are up and down a lot. 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 Mother Diabetes mellitus Sister Diabetes mellitus Brother No problems noted. Paternal Uncle Colon cancer Social History Household Members: None Housing: Apartment Do you presently have visiting nurse or other home services: Yes Alcohol intake: current Alcohol intake frequency: does not drink Alcohol type: beer Patient Tobacco Use Status: Former Tobacco user Tobacco use type: Cigarette Cigarettes Per Day: 3 Years Smoked: 15 service: No Review of Systems Const Denies weakness ENT Denies dizziness Card Denies chest pain, Denies chest pain with activity, Denies syncope, Denies rapid heart rate, Denies pedal edema, Denies edema, Denies leg edema, Denies lighthe adedness, Denies palpitations, Denies dyspnea, Denies dyspnea on exertion and Denies orthopnea Resp Denies cough, Denies dyspnea and Denies dyspnea on exertion GI Denies hematochezia and Denies change in stool character Musc Denies abnormal gait, Denies muscle cramps, Denies muscle weakness, Denies numbness, Denies radiating pain into limb and Denies tingling Neuro Denies abnormal gait, Denies dizziness, Denies syncope, Denies numbness, Denies tingling and Denies weakness Endo Denies palpitations Physical Exam Vital Signs: Last Vital Signs Pulse 61 12/20/23 14:17 BP 130/68 12/20/23 14:17 BMI result Body Mass Index 31.2 Assessment & Plan Assessment & Plan (1) NSTEMI (non-ST elevated myocardial infarction): Code(s): I21.4 - Non-ST elevation (NSTEMI) myocardial infarction Category: Medical Plan Elevated troponins while in-patient. Myocardial perfusion showed normal perfusion. Echocardiogram showed LV hypertrophy. Will order sleep study to assess for PANDA and hypersomnia. Possibly causing stress to the heart. She was stopped on metoprolol and started on coreg 3.125mg BID at [facility] [place]. Patient states she is going to follow up with us. Advised to monitor blood pressures and record them to bring to the next appointment as tight blood pressure control is important. Patient reports understanding. Orders: Orders RT home sleep study 12/20/23 G47.10 - Hypersomnia, unspecified Coding Level of Care Code Est Pt Level 3 (75286) Diagnoses NSTEMI (non-ST elevated myocardial infarction) I21.4
[2023-12-20 14:17] VITALS: BP 130/68; PULSE 61; BMI 31.2
== END 2023-12-20 14:45 | disposition home or self-care (01) ==
PROVIDERS: PCP Nurse Practitioner Primary Care; Visit Provider Nurse Practitioner
DX: I21.4 Non-ST elevation (NSTEMI) myocardial infarction (principal)
CPT/HCPCS: 99213

== ENCOUNTER → 2023-12-20 13:34 | Outpatient (BNVA) | payer MEDICAID, SELFPAY | PROVIDERS: PCP Nurse Practitioner Primary Care; Visit Provider Nurse Practitioner | DX: I21.4 Non-ST elevation (NSTEMI) myocardial infarction (principal) | CPT/HCPCS: 99212 ==

== ENCOUNTER 2024-01-09 09:25 | Emergency (ER) | payer MEDICAID, SELFPAY ==
--- NOTE | ~2024-01-09 | CT_ITS ---
EXAMINATION: CT ABDOMEN AND PELVIS WITH CONTRAST CLINICAL INFORMATION: Right lower quadrant pain and epigastric pain COMPARISON: 11/12/2023 TECHNIQUE: Multidetector volumetric images were obtained from the superior aspect of the liver through the pubic symphysis following administration 85 mL of Omnipaque 350 intravenous contrast. Sagittal and coronal reformatted images were obtained on the technologist's workstation. Oral contrast: No This CT examination was performed using dose optimization techniques as appropriate, variously including the following: *Automated exposure control *Adjustment of mA and/or kV according to patient size (this includes techniques or standardized protocols for targeted exams where dose is matched to indication/reason for exam; i.e. extremities or head) *Use of iterative reconstruction technique DLP: 584 mGy-cm FINDINGS: LUNG BASES: The visualized lung bases are unremarkable. LIVER, GALLBLADDER, AND BILIARY TREE: Moderate hepatic steatosis with a nodular contour suggestive of underlying cirrhotic change. No focal hepatic mass. No intrahepatic biliary dilatation. The gallbladder is absent. Surgical clips seen along the inferior margin of the liver as well as in the gallbladder fossa. PANCREAS: Unremarkable. SPLEEN: Enlarged spleen indicative of splenomegaly. No splenic masses or perisplenic collection. A few tiny subcentimeter splenule's are seen near the hilum. ADRENAL GLANDS: Unremarkable. KIDNEYS AND URETERS: Punctate stones in the left kidney and near the left and right renal pelvis are observed the latter possibly vascular. No suspicious mass. 2 mm probable cyst in the left mid kidney. No hydronephrosis or perinephric collection. BLADDER: Decompressed. GASTROINTESTINAL TRACT: Appendix normal. No bowel obstruction or right or left lower quadrant inflammatory change. Stomach is thick walled but decompressed. There appears to be circumferential thickening in the region of the duodenum and pylorus. I would recommend endoscopy. ABDOMINAL WALL: No significant hernia is appreciated. LYMPH NODES: Normal. VASCULAR: Aorta atherosclerotic but nonaneurysmal. PELVIC VISCERA: Uterus appears heterogeneous. No adnexal masses. OSSEOUS STRUCTURES: Mild spondylitic change in the lower lumbar spine but no fracture or destructive process. CT/CT abdomen pelvis w IV con IMPRESSION: No appendicitis. There is however, thickening of the stomach and in particular the region of the pylorus and duodenum. I would recommend endoscopy given the patient's symptoms. Other comments as above regarding the liver and spleen. Fleischner guidelines were followed.
[2024-01-09 09:27] VITALS: BP 112/75; PULSE 64; RESP 18; TEMP 35.8; O2SAT 98; BMI 30.8
--- OUTSIDE RECORDS SUMMARY | 2024-01-09 09:35 | XMS_ITS | Continuity of Care Document ---
Author Organization [facility] Address [address] [place] [address]- Care Team Providers Care Vamp Liner Name Role Phone Wanda Bonilla NP Primary Care Physician En[place] [facility] [place] Date(s): 05/08/23 - 06/07/23 [facility] [address] [place] [address]- Allergies, Adverse Reactions, Alerts No Known Allergies [...] opioid drug. Start Date: 01/15/23 Status: Ordered Flovent HFA 110 mcg/inh inhalation aerosol INHALE 2 PUFFS EVERY TWELVE HOURS. RINSE MOUTH AFTER USING. Start Date: 04/11/23 Status: Ordered Gabapentin By Mouth, 0 Refills, [...] opioid drug. Start Date: 01/15/23 Status: Ordered Lantus Solostar Pen 100 units/mL subcutaneous solution INJECT 60 UNITS SUBCUTANEOUSLY ONCE DAILY Start Date: 04/11/23 Status: Ordered Lisinopril By Mouth, Daily, 0 Refills, Maintenance, 01/15/23 11:04:00 EDT, Partial fill upon patient request if the prescription is for a schedule II opioid drug. Start Date: 01/15/23 Status: Ordered lisinopril 40 mg oral tablet TAKE 1 TABLET BY MOUTH EVERY MORNING Start Date: 04/11/23 Status: Ordered metoprolol 25 mg oral tablet 25 mg, 1, tablet, By Mouth, 2 times a day, Refills 0, Maintenance, 01/15/23 11:04:00 EDT, Partial fill upon patient request if the prescription is for a schedule II opioid drug. Start Date: 01/15/23 Status: Ordered naproxen 250 mg oral tablet TAKE 1 TABLET BY MOUTH TWICE DAILY IN THE MORNING AND IN THE EVENING WITH FOOD FOR PAIN OR FOR FEVER Start Date: 04/11/23 Status: Ordered prazosin 2 mg oral capsule TAKE 1 CAPSULE BY MOUTH AT BEDTIME Start Date: 04/11/23 Status: Ordered Quetiapine By Mouth, Refills 0, Maintenance, 01/15/23 11:04:00 EDT, Partial fill upon patient request if the prescription is for a schedule II opioid drug. Start Date: 01/15/23 Status: Ordered Simvastatin By Mouth, 0 Refills, Maintenance, 01/15/23 11:05:00 EDT, Partial fill upon patient request if the prescription is for a schedule II opioid drug. Start Date: 01/15/23 Status: Ordered traMADol 50 mg oral tablet 1 tablet = 50 mg, By Mouth, Every 6 hours, PRN Pain , Severe, # 12 tablet, 0 Refills, Acute 06/10/23 15:40:00 EST, 06/06/23 15:40:00 EST, [facility]/pharmacy #[id number], Partial fill upon patient request if the prescription is for a schedule II opioid drug., 160,... Start Date: 06/06/23 Stop Date: 06/10/23 Status: Ordered traZODone 150 mg oral tablet TAKE 1 TABLET BY MOUTH AT BEDTIME NEEDED FOR SLEEP Start Date: 04/11/23 Status: Ordered Vitamin B6 Daily, 0 Refills, [...] opioid drug. Start Date: 01/15/23 Status: Ordered Problem List Condition Confirmation Course Effective Dates Status H ealth Status Informant Anxiety Confirmed Active Asthma Confirmed Active Bipolar disease in Confirmed Active Breast mass Confirmed Active Chronic hepatitis Confirmed Active Cirrhosis Confirmed Active Hyperlipidemia Confirmed Active Hypertension Confirmed Active Renal stones Confirmed Active Obese class I Confirmed Active Diabetic retinopathy Confirmed Active Insulin dependent type 1 diabetes mellitus Confirmed Active UTI symptoms Confirmed Active Social History Social History Type Response Tobacco Use: 4 or less cigar ettes(less than 1/4 pack)/day in last 30 days. Sex Patient Care team information Care Team Personnel Name: Wanda Bonilla NP Position: S Outreach Member Role: PCP Address: Address: [address] [place] [address]- Care Team Related Persons Name: NICHO MART Address: home [address] [place] [address] Name: DASIA MART
--- OUTSIDE RECORDS SUMMARY | 2024-01-09 09:38 | XMS_ITS | Continuity of Care Document ---
Author Organization [facility] Address [address] [facility] [place] [address]- Care Team Providers Care Data Integrity Consultant Name Role Phone Wanda Bonilla NP Primary Care Physician [phone] Encounter [facility] [id number] Date(s): 06/19/23 - 07/19/23 [facility] [address] [facility] [place] [address]- Attending Physician: Paulina Mercado Admitting Physician: AdmPaulina clayton Referring Physician: Admtr ArCandida Allergies, Adverse Reactions, Alerts No Known Allergies [...] opioid drug. Start Date: 01/15/23 Status: Ordered traZODone 150 mg oral tablet [...] Team Personnel Name: Wanda Bonilla NP Position: [facility] Outreach Member Role: PCP Address: Address: [address] [place] [address]- Care Team Related Persons Name: NICHO MART Address: [address] [place] [address] Name: DASIA MART
--- OUTSIDE RECORDS SUMMARY | 2024-01-09 09:40 | XMS_ITS | Continuity of Care Document ---
Author Organization [facility] Address [address] [place] [address]- Care Team Providers Care Professor/Nurse Anesthetist Name Role Phone Wanda Bonilla NP Primary Care Physician [phone] Encounter [facility] [place] Date(s): 04/11/23 - 05/11/23 [facility] [address] [place] [address]- Attending Physician: Paulina Mercado Admitting Physician: AdmtrPaulina [...] Outreach Member Role: PCP Address: Address: [address] [place] [address]- [place] Care Team Related Persons Name: NICHO MART Address: [address] [place] [address] Name: DASIA MART
--- OUTSIDE RECORDS SUMMARY | 2024-01-09 09:40 | XMS_ITS | Continuity of Care Document ---
Author Organization [facility] ter Address [address] [place] [address]- Care Team Providers Care Clinical Data Assistant Name Role Phone Irene HARTMANN, Wanda Deras Primary Care Physician Encounter [facility] Date(s): 08/07/23 - 09/17/[address] [address] Attending Physician: Nuvia Qiu DO Admitting Physician: Nuvia Qiu DO Referring Physician: Nuvia Qiu DO Allergies, Adverse Reactions, Alerts No Known Allergies [...] Team Personnel Name: Wanda Bonilla NP Position: [facility] Outreach Member Role: PCP Address: Address: [address] [place] [address]- Care Team Related Persons Name: NICHO MART Address: home [address] [place] [address] Name: DASIA MART
--- OUTSIDE RECORDS SUMMARY | 2024-01-09 09:41 | XMS_ITS | Continuity of Care Document ---
Author Organization [facility] Address [address] [place] [address]- Care Team Providers Care Geopolitics Teacher Name Role Phone Irene HARTMANN, Wanda Deras Primary Care Physician [place] [facility] [place]23 [place] 07/05/23 [facility] [address] [place] [address]- Allergies, Adverse Reactions, Alerts No Known Allergies [...] Team Personnel Name: Wanda Bonilla NP Position: [facility] Outreach Member Role: PCP Address: Address: [address] [place] [address]- Care Team Related Persons Name: NICHO MART Address: [address] [place] [address] Name: DASIA MART
--- OUTSIDE RECORDS SUMMARY | 2024-01-09 09:42 | XMS_ITS | Continuity of Care Document ---
Author Organization [facility] ter Address [address] [place] [address]- Care Team Providers Care Burner Hand Name Role Phone Wanda Bonilla NP Primary Care Physician [place] [facility] [place]23 - 10/22/[address] [address]- Encounter Diagnosis Chest pain(Final) - 10/22/23 Chest pain(Final) - 10/22/23 Chest pain(Final) - 10/22/23 Discharge Disposition: A-D/C Home Attending Physician: Iwona Gay DO Admitting Physician: Iwona Gay DO Referring Physician: Not on Staff, Referring MD Allergies, Adverse Reactions, Alerts No Known Allergies [...] mellitus Confirmed Active UTI symptoms Confirmed Active Results Radiology Reports * Exam Date Time Procedure Performing Provider Status 10/22/23 10:59 AM Chest 2 Views Frontal and Lat Edmundo , Gisella; Auth (Verified) Notes: (Chest 2 Views Frontal and Lat) Reason For Exam: Chest Pain;Other: RESULT: Chest 2 Views Frontal and Lat Chest 2 Views Frontal and Lat HX OF PRESENT ILLNESS: Pt states she has had chest pain for 2 days, went to pcp today and was told to come to the ED due to an abnormal EKG. Got ASA x4 and nitro x1 at pcp office; Reason: Chest pain COMPARISON: None. FINDINGS: LINES AND TUBES: None. LUNGS AND PLEURA: Clear lungs. Normal pulmonary vascularity. No pleural effusion. No pneumothorax. HEART, MEDIASTINUM AND STACEY: Heart is normal in size. Normal mediastinal and hilar contour. BONES AND SOFT TISSUES: No acute abnormality. There are surgical clips in the right upper quadrant. IMPRESSION: No evidence of acute abnormality. WSN: [id number] Ordering Physician: Gio Basurto Dictated By: Mario Mari MD Dictated Date/Time: 10/22/23 11:02 a Reviewed By: Mario Mari MD Signed By: Mario Mari MD Signed Date/Time: 10/22/23 11:02 am Transcribed By: PETEY Transcribed Date/Time: 10/22/23 11:01 am Vital Signs Most recent to oldest [Reference Range]: 1 2 3 Oxygen Saturation [94-100 %] 100 % (10/22/23 4:57 PM) 100 % (10/22/23 1:49 PM) 100 % (10/22/23 11:38 AM) Pulse Rate [55-90 bpm] 55 bpm (10/22/23 4:57 PM) 64 bpm (10/22/23 1:49 PM) 57 bpm (10/22/23 11:38 AM) Blood Pressure [90-138/55-84 mm Hg] 132/69mm Hg (3/25/24 4:57 PM) 104/63mm Hg (10/22/23 1:49 PM) 153/79mm Hg *H* (10/22/23 11:38 AM) Respiratory Rate [16-30 br/min] 16 br/min (10/22/23 4:57 PM) 21 br/min (10/22/23 1:49 PM) 20 br/min (10/22/23 11:38 AM) Temperature [96.8-100.4 DegF] 98.2 DegF (10/22/23 11:38 AM) Mode of Delivery (Oxygen) Room air (10/22/23 4:57 PM) Room air (10/22/23 1:49 PM) Room air (10/22/23 11:38 AM) Temperature Route Oral (10/22/23 11:38 AM) Social History Social History Type Response Tobacco Use: 4 or less cigar ettes(less than 1/4 pack)/day in last 30 days. Sex EKG study * Event Display: ECG 12-Lead Authored Date: Please click on pdf link to open report * Event Display: ECG 12-Lead Authored Date: Ventricular Rate: 55 BPM Atrial Rate: 55 BPM P-R Interval: 144 ms QRS Duration: 86 ms Q-T Interval: 418 ms QTC Calculation(Bazett): 399 ms P [place]: 44 degrees R [place]: -13 degrees T [place]: 136 degrees Sinus bradycardia Left ventricular hypertrophy with repolarization abnormality ( R in aVL , Marquez product ) Cannot rule out Septal infarct (cited on or before 11-APR-2023) Abnormal ECG Confirmed by EMERITA CASTILLO ([id number]) on 10/22/2023 10:51:57 AM [place]: EMERITA CASTILLO Note * Americo Escoto DO W: PERFORM Event Display: Patient Education Leaflets Authored Date: Chest Pain, Uncertain Cause ?? [id number] Causas inciertas de dolor de pecho El dolor de pecho puede producirse por numerosas razones. En algunos casos, no se puede determinar la causa. Si palmer afecci??n no parece grave y el dolor no parece venir del coraz??n, palmer proveedor de atenci??n m??dica puede recomendar un seguimiento de cerca. A veces, los signos de un problema grave tardan m??s en aparecer. Muchas afecciones no relacionadas con el coraz??n pueden causar dolor de pecho. Por ejemplo: ??? Musculoesquel??terence. Costocondritis, sasha inflamaci??n de los tejidos alrededor de las costillas que puede ocurrir por trauma o lesiones por uso excesivo, o sasha distensi??n de los m??sculos de lapared tor??cica. ??? Respiratorias. Neumon??a, pulm??n colapsado (neumot??rax) o inflamaci??n del re vestimiento del pecho y los pulmones (pleuritis). ??? Gastrointestinales. Reflujo esof??gico, acidez estomacal, ??lceras o enfermedad de la ves??cula biliar. ??? Ansiedad y ataques de p??toñito ??? Compresi??n e inflamaci??n de un nervio ??? Afecciones poco frecuentes chris aneurisma a??rtico o disecci??n a??rtica (sasha hinchaz??n de la arteria alessandro que sale del coraz??n o un desgarro en la pared de la arteria) o embolia pulmonar (co??gulos de maury en los pulmones). Cuidados en el hogar Luego de palmer visita, preste atenci??n a las siguientes recomendaciones: ??? Descanse hoy y evite toda actividad agotadora. ??? [place] el medicamento recetado seg??n le hayan indicado. ??? Est?? atento acualquier dolor de pecho recurrente y observe cualquier cambio ?? Visita de seguimiento Programe sasha visita de control con palmer proveedor de atenci??n m??dica si no empieza a sentirse mejoren las siguientes 24??horas, o seg??n lo que le indiquen. ?? Cu??ndo llamar al?? 911 Llame al?? 911 si ocurre algo de lo siguiente: ??? Cambio en el tipo de dolor: se siente diferente,se kaur vuelto m??s grave, dura m??s o comienza a esparcirse hacia el hombro, el brazo, el debra, lamand??bula o la espalda ??? Falta de aire o dolor creciente al respirar ??? Debilidad, mareos o desmayos ??? Ritmo card??aco acelerado ??? Sensaci??n de aplastamiento en el pecho ??? Tos con cantidadabundante de maury ?? Cu??ndo buscar atenci??n m??dica Llame a palmer proveedor de atenci??n m??dica de inmediato ante cualquiera de los siguientes signos o s??ntomas: ??? Tos con expulsi??n de esputo (flema) de color oscuro o con un poco de maury ??? Fiebre de 100.4?F (38?C) o superior, o seg??n le haya indicado palmer proveedor de atenci??n m??dica ??? Dolor, enrojecimiento o hinchaz??n de sasha pierna ?? Last Reviewed Date: 2021 ?? [id number] [employer]. Todos los derechos reservados. Esta informaci??n no pretende sustituir la atenci??n m??dica profesional. S??lo palmer m??dico puede diagnosticar y tratar un problema de janett. ?? Patient Care team information Care Team Personnel Name: Wanda Bonilla NP Position: [facility] Outreach Member Role: PCP Address: Address: [address] [place] [address]- Care Team Related Persons Name: NICHO MART Address: [address] [place] [address] Name: DASIA MART
[2024-01-09 09:54] LABS: MANUAL DIFF FLAG NO
[2024-01-09 09:57] LABS: Basophils Percent Auto 0.4 % (0-2); Eosinophils Absolute Auto 0.1 X10*3/uL (0.0-0.4); Eosinophils Percent Auto 2.7 % (0-4); Hematocrit 35.7 % (37.0-47.0); Hemoglobin 12.2 g/dl (12.0-16.0); Imm Gran Abs Auto 0.02 X10*3/uL (0.00-0.03); Imm Gran Pct Auto 0.4 % (0.0-0.4); Lymphocytes Absolute Auto 1.8 X10*3/uL (1.2-4.9); Lymphocytes Percent Auto 33.3 % (20-40); Mean Corpuscular HGB Conc 34.2 g/dl (31.0-35.0); Monocytes Absolute Auto 0.6 X10*3/uL (0.1-1.2); Monocytes Percent Auto 10.5 % (2-11); Neutrophils Absolute Auto 2.8 x10*3/uL (2.0-8.3); Neutrophils Percent Auto 52.7 % (45-73); Platelet Count 131 X10*3/uL (160-400); Red Cell Distribution Width 12.9 % (11.0-16.0); White Blood Count 5.3 X10*3/uL (4.8-10.8)
[2024-01-09 10:11] LABS: Alanine Aminotransferase 45 U/L (0-31); Albumin Level 3.9 g/dL (3.5-5.0); Alkaline Phosphatase 142 U/L (39-117); Anion Gap 10 (12-20); Aspartate Amino Transferase 37 U/L (5-31); Bilirubin Total 0.5 mg/dL (0.0-1.0); Blood Urea Nitrogen 13 mg/dL (9-16); Calcium 9.5 mg/dL (8.4-10.2); Carbon Dioxide 27 mmol/L (22-29); Chloride 110 mmol/L (96-108); Creatinine Clr Calc Pharmacy 53.1; Estimated Glomerular Filt Rate 50; Glucose Random 143 mg/dL (60-115); Potassium 4.2 mmol/L (3.3-5.1); Sodium 143 mmol/L (135-145); Total Protein 7.5 g/dL (6.5-8.0)
[2024-01-09 12:01] VITALS: BP 144/64; PULSE 59; RESP 16; O2SAT 98
--- NOTE | 2024-01-09 12:24 | ED.GENADULT ---
HPI - General Adult General Chief complaint: Abdominal Pain Stated complaint: Abd pain Time Seen by Provider: 01/09/24 11:59 History of Present Illness ED Provider: Dr. Soto HPI narrative: 58 y/o F patient; PMH T2DM, HTN, HLD, hx NSTEMI, PAD, asthma, liver cirrhosis, chronic hepatitis C, cholecystectomy; presenting from home with report of two days of epigastric and RLQ abdominal pain. The patient states this is associated with constipation and rectal bleeding that is possibly hemorrhoidal. She denies: fever or chills, chest pain, SOB, cough/congestion, nausea/vomiting, syncope. Patient is not anti-coagulated. Related Data Home Medications ?Medication ?Instructions ?Recorded ?Confirmed gabapentin 300 mg capsule 300 mg PO BID 07/28/20 12/21/23 cholecalciferol (vitamin D3) 25 25 mcg PO QAM 10/12/22 12/21/23 mcg (1,000 unit) capsule (Vitamin D3) insulin lispro 100 unit/mL 20 unit subcut TID 10/12/22 12/21/23 subcutaneous pen lidocaine 5 % topical patch 2 patch topical DAILY PRN Pain 10/12/22 12/21/23 pen needle, diabetic 31 gauge x #1,200 ea 10/12/22 12/21/2312/12 (UltiCare Pen Needle) pioglitazone 15 mg tablet 15 mg PO QAM 10/12/22 12/21/23 quetiapine 25 mg tablet 25 mg PO BID PRN Sleep 05/05/23 12/21/23 albuterol sulfate 2.5 mg/3 mL 2.5 mg inhalation Q4H PRN sob 09/10/23 12/21/23 (0.083 %) solution for nebulization aspirin 81 mg tablet,delayed 81 mg PO QPM 09/24/23 12/21/23 release semaglutide 0.25 mg or 0.5 mg (2 0.5 mg subcut MO 09/24/23 12/21/23 mg/3 mL) subcutaneous pen injector (Ozempic) amlodipine 10 mg tablet 10 mg PO QAM 11/12/23 12/21/23 insulin glargine 100 unit/mL (3 60 unit subcut BEDTIME 11/12/23 12/21/23 mL) subcutaneous pen (Lantus Solostar U-100 Insulin) lisinopril 40 mg tablet 40 mg PO QPM 11/12/23 12/21/23 quetiapine 100 mg tablet 150 mg PO BEDTIME 11/12/23 12/21/23 ropinirole 0.5 mg tablet 0.5 mg PO BEDTIME 11/12/23 12/21/23 rosuvastatin 5 mg tablet 5 mg PO BEDTIME 11/12/23 12/21/23 famotidine 20 mg tablet 20 mg PO TID 11/13/23 12/21/23 fluticasone propionate 110 1 puff inhalation Q12H 11/13/23 12/21/23 mcg/actuation HFA aerosol inhaler mometasone 100 mcg/actuation HFA 2 puff inhalation Q12H PRN sob 11/13/23 12/21/23 aerosol inhaler (Asmanex HFA) sennosides 8.6 mg-docusate sodium 2 cap PO BEDTIME PRN Constipation 11/13/23 12/21/23 50 mg capsule (Senna Plus) trazodone 150 mg tablet 150 mg PO BEDTIME PRN Sleep 11/13/23 12/21/23 carvedilol 6.25 mg tablet 6.25 mg PO 12/21/23 12/21/23 Previous Rx's ?Medication ?Instructions ?Recorded esomeprazole magnesium 20 mg 20 mg PO BID 30 days #60 caps 10/26/22 capsule,delayed release pyridoxine (vitamin B6) 100 mg 100 mg PO QAM #90 tabs 12/31/23 tablet Allergies Allergy/AdvReac Type Severity Reaction Status Date / Time morphine AdvReac Abdominal Verified 01/09/24 09:30 Pain Review of Systems Review of Systems: Yes all other systems are reviewed and are negative [facility] Past Medical History Attestation statement: The following information was validated with the patient. 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 Mother Diabetes mellitus Sister Diabetes mellitus Brother No problems noted. Paternal Uncle Colon cancer Social History Social History Household Members: None Housing: Apartment Do you presently have visiting nurse or other home services: Yes Alcohol intake: current Alcohol intake frequency: does not drink Alcohol type: beer Patient Tobacco Use Status: Former Tobacco user Tobacco use type: Cigarette Cigarettes Per Day: 3 Years Smoked: 15 Advance Directives: No Advance Directives Information Provided: Yes service: No Physical Exam ED Vital Signs: Vital Signs - 24 hr 01/09/24 09:27 01/09/24 12:01 01/09/24 14:26 Temperature 96.5 F L Pulse Rate 64 59 55 Respiratory Rate 18 16 18 Blood Pressure 112/75 144/64 H 128/65 Pulse Oximetry 98 98 96 Oxygen Delivery Method Room Air Room Air Room Air 01/09/24 16:11 Temperature Pulse Rate 62 Respiratory Rate 15 Blood Pressure 142/75 H Pulse Oximetry 95 Oxygen Delivery Method Room Air BMI result Body Mass Index 30.8 Patient is afebrile, hemodynamically stable. Const General: cooperative HENMT Head: Yes normal to inspection and Yes atraumatic Eyes Pupils: Equal, round and reactive pupils present EOM: EOMs intact bilaterally Neck Neck: Yes full ROM, Yes supple and No tender Chest Chest palpation & inspection: normal inspection of the chest and normal palpation of entire chest wall Resp Effort & Inspection: normal respiratory effort, able to speak in complete sentences and no respiratory distress Auscultation: clear to auscultation bilaterally Cardio Rate: regular rate Rhythm: regular rhythm GI Other: Epigastric abdominal tenderness, RUQ tenderness, RLQ tenderness Inspection: No distended Palpation (GI): Soft to palpation, not firm, Tenderness to palpation present (GI), no guarding and not rigid Auscultation: normal bowel sounds Neuro Cranial nerves: Yes Equal, round and reactive pupils present Course Course Course Narrative: Patient is afebrile and hemodynamically stable. Reviewed triage work up. Baseline thrombocytopenia. No leukocytosis. No significant anemia. Mild baseline transaminitis. UA unremarkable. Will obtain CT Abdomen/Pelvis W IV Contrast and perform rectal examination looking for anal fissures/hemorrhoids. Rectal exam with multiple external hemorrhoids without clear source of trauma/bleeding. No significant erythema to rectum or surrounding area. CT with evidence of thickening of the stomach in the region of the pylrus and duodenum. Endoscopy was recommended. Patient currently follows with GI for pending EGD on 01/16/2024. Last seen in office 11/01/2023. She was started on Famotidine 20mg BID at that time. Last endoscopy on record was 05/05/2022 with mild portal gastropathy and antral erythema. Despite described mild rectal bleeding, patient is hemodynamically stable with appropriate Hgb and without symptomatic anemia. She is appropriate for outpatient endoscopy/colonoscopy with GI which she already has planned for 01/16/2024. Patient voiced understanding and agreement with this plan. Patient is tolerating PO at this time. Ambulating without difficulty. Plan: Discharge to home with PCP and GI follow up within the next 24 - 48 hours Condition: stable Medications Administered Discontinued Medications Generic Name Dose Route Start Last Admin Trade Name Freq PRN Reason Stop Dose Admin Iohexol 100 ml 01/09/24 13:55 01/09/24 13:56 Iohexol 350 Mg/Ml 100 Ml Infus..Btl IV 01/09/24 13:56 85 ml ONCE ONE Administration Medical Decision Making Lab Data 01/09/24 09:49 01/09/24 09:49 Labs: Lab Results 01/09/24 01/09/24 01/09/24 Range/Units 09:49 12:26 16:16 WBC 5.3 (4.8-10.8) X10*3/uL RBC 4.20 (4.20-5.50) X10*6/uL Hgb 12.2 (12.0-16.0) g/dl Hct 35.7 L (37.0-47.0) % MCV 85.0 (80.0-98.0) fL MCH 29.0 (27.0-33.0) pg MCHC 34.2 (31.0-35.0) g/dl RDW 12.9 (11.0-16.0) % Plt Count 131 L D (160-400) X10*3/uL MPV 10.0 (9.4-12.3) fL Immature Gran % (Auto) 0.4 (0.0-0.4) % Neut % (Auto) 52.7 (45-73) % Lymph % (Auto) 33.3 (20-40) % [place] % (Auto) 10.5 (2-11) % Eos % (Auto) 2.7 (0-4) % Baso % (Auto) 0.4 (0-2) % Lymph # (Auto) 1.8 (1.2-4.9) X10*3/uL [place] # (Auto) 0.6 (0.1-1.2) X10*3/uL Eos # (Auto) 0.1 (0.0-0.4) X10*3/uL Baso # (Auto) 0.0 (0.0-0.2) X10*3/uL Abs Immat Gran (auto) 0.02 (0.00-0.03) X10*3/uL Absolute Neuts (auto) 2.8 (2.0-8.3) x10*3/uL Absolute Nucleated RBC 0.000 (0.0-0.012) X10*3/uL Nucleated RBC % (auto) 0.0 (0.0-0.2) /100WBC Sodium 143 (135-145) mmol/L Potassium 4.2 (3.3-5.1) mmol/L Chloride 110 H (96-108) mmol/L Carbon Dioxide 27 (22-29) mmol/L Anion Gap 10 L (12-20) BUN 13 (9-16) mg/dL Creatinine 1.12 (0.5-1.4) mg/dL Estim Creat Clear Calc 53.1 Estimated GFR 50 POC Glucose 83 (60-115) mg/dL Random Glucose 143 H (60-115) mg/dL Calcium 9.5 (8.4-10.2) mg/dL Total Bilirubin 0.5 (0.0-1.0) mg/dL AST 37 H (5-31) U/L ALT 45 H (0-31) U/L Alkaline Phosphatase 142 H (39-117) U/L Total Protein 7.5 (6.5-8.0) g/dL Albumin 3.9 (3.5-5.0) g/dL Lipase 17 (8-78) U/L Urine Color Yellow Urine Appearance Clear Urine pH 7.5 (5.0-9.0) Ur Specific [place] 1.020 (1.005-1.025) Urine Protein Trace (Neg-Trace) mg/dL Urine Glucose (UA) Negative (Negative) mg/dL Urine Ketones Negative (Negative) mg/dL Urine Blood Small (1+) H (Negative) Urine Nitrite Negative (Negative) Ur Leukocyte Esterase Small (1+) H (Negative) Urine RBC 0-2 (0-2) /HPF Urine WBC 0-5 (0-5) /HPF Ur Squamous Epith Cells 11-20 (0-2) /HPF Urine Bacteria 1+ (None Seen) Hyaline Casts 0-2 (0-2) /LPF Discharge Plan Discharge Clinical Impression: Abdominal pain Patient Disposition: Home, Self-Care Instructions: Abdominal Pain (ED) Additional Instructions: As we discussed, you were seen today for abdominal pain. Your labs did not show any new changes - you have mildly low platelets and mildly elevated liver function tests at baseline. Your CT showed a thickened area in part of your stomach - you have been recommended to get an endoscopy with GI. Called Dr. Maldonado for an appointment within the next 2 days. Return to the emergency department for: Worsening abdominal pain Passing out Nausea/vomiting Prescriptions: No Action pyridoxine (vitamin B6) 100 mg tablet 100 mg PO QAM Qty: 90 3RF quetiapine 25 mg tablet 25 mg PO BID PRN (Reason: Sleep) insulin glargine [Lantus Solostar U-100 Insulin] 100 unit/mL (3 mL) insulin pen 60 unit subcut BEDTIME quetiapine 100 mg tablet 150 mg PO BEDTIME lisinopril 40 mg tablet 40 mg PO QPM amlodipine 10 mg tablet 10 mg PO QAM ropinirole 0.5 mg tablet 0.5 mg PO BEDTIME rosuvastatin 5 mg tablet 5 mg PO BEDTIME famotidine 20 mg tablet 20 mg PO TID Senna Plus 8.6-50 mg capsule 2 cap PO BEDTIME PRN (Reason: Constipation) fluticasone propionate 110 mcg/actuation HFA aerosol inhaler 1 puff INHALATION Q12H Asmanex HFA 100 mcg/actuation HFA aerosol inhaler 2 puff INHALATION Q12H PRN (Reason: sob) trazodone 150 mg Tablet 150 mg PO BEDTIME PRN (Reason: Sleep) gabapentin 300 mg capsule 300 mg PO BID esomeprazole magnesium 20 mg capsule,delayed release(DR/EC) 20 mg PO BID 30 Days Qty: 60 3RF (DME) pen needle, diabetic [UltiCare Pen Needle] 31 gauge x 5/16 needle See Rx Instructions .ROUTE QID Qty: 1200 Rx Instructions: As directed insulin lispro 100 unit/mL insulin pen 20 unit subcut TID lidocaine 5 % adhesive patch,medicated 2 patch topical DAILY PRN (Reason: Pain) pioglitazone 15 mg tablet 15 mg PO QAM cholecalciferol (vitamin D3) [Vitamin D3] 25 mcg (1,000 unit) capsule 25 mcg PO QAM albuterol sulfate 2.5 mg /3 mL (0.083 %) solution for nebulization 2.5 mg inhalation Q4H PRN (Reason: sob) carvedilol 6.25 mg tablet 6.25 mg PO Ozempic 0.25 mg or 0.5 mg (2 mg/3 mL) pen injector 0.5 mg subcut MO aspirin 81 mg tablet,delayed release (DR/EC) 81 mg PO QPM Referrals: Ashlie Maldonado MD [Physician] - 2 days Print Language: Djiboutian
[2024-01-09 12:32] LABS: Appearance Urine Clear; Color Urine Yellow; Glucose Urine UA Negative (Negative); Leukocyte Esterase Urine Small (1+) (Negative); Nitrite Urine Negative (Negative); PH 7.5 (5.0-9.0); UMIC TRIGGER UACC YES; Urine Blood Small (1+) (Negative); Urine Ketones Negative (Negative); Urine Protein Trace mg/dL (Neg-Trace)
[2024-01-09 12:39] LABS: Bacteria Urine 1+ (None Seen); Hyaline Casts Urine 0-2 /LPF (0-2); RBC Urine 0-2 /HPF (0-2); UACC Culture Trigger YES; WBC Urine 0-5 /HPF (0-5)
[2024-01-09 13:08] LABS: Lipase 17 U/L (8-78)
[2024-01-09] MEDS: iohexoL 350 MG/ML 100 ML INFUS..BTL IV (13:56)
[2024-01-09 14:26] VITALS: BP 128/65; PULSE 55; RESP 18; O2SAT 96
[2024-01-09 16:11] VITALS: BP 142/75; PULSE 62; RESP 15; O2SAT 95
[2024-01-09 16:20] LABS: Glucose, Whole Blood 83 mg/dL (60-115)
[2024-01-09 17:06] VITALS: BP 142/75; PULSE 62; RESP 15; TEMP 35.8; O2SAT 95
== END 2024-01-09 17:08 | disposition home or self-care (01) ==
PROVIDERS: Emergency Provider Emergency Medicine; PCP Nurse Practitioner Primary Care
DX: R10.31 Right lower quadrant pain (principal); K62.5 Hemorrhage of anus and rectum; K59.00 Constipation, unspecified; I10 Essential (primary) hypertension; E11.9 Type 2 diabetes mellitus without complications; B19.20 Unspecified viral hepatitis C without hepatic coma; Z79.899 Other long term (current) drug therapy
CPT/HCPCS: 36415; 74177; 80053; 81001; 82947; 83690; 85025; 87086; 99284; Q9967

== ENCOUNTER 2024-01-17 08:57 | Outpatient (AMB) | payer MEDICAID, SELFPAY ==
[2024-01-17 08:58] VITALS: BP 126/62; PULSE 55; O2SAT 97; BMI 30.6
--- NOTE | 2024-01-17 08:58 | A.OFFVIS_ITS ---
Vital Signs 01/17/24 08:58 Height 5 ft 3 in Weight 172 lb 13.478 oz BMI 30.6 BP 126/62 Blood Pressure Location Rt brachial Position Sitting Pulse 55 Pulse Source Pulse Oximeter Pulse Oximetry (%) 97 Oxygen Delivery Method Room Air Intake Visit Reasons: Polyarthralgia/CM Allergies morphine Adverse Reaction (Verified 01/17/24 09:01) Abdominal Pain Medication List - Last Reconciled 01/17/24 by Erasmo Hall MD albuterol sulfate 2.5 mg inhalation Q4H PRN amlodipine 10 mg PO QAM aspirin 81 mg PO QPM carvedilol 6.25 mg PO cholecalciferol (vitamin D3) (Vitamin D3) 25 mcg PO QAM esomeprazole magnesium 20 mg PO BID 30 days famotidine 20 mg PO TID fluticasone propionate 110 mcg/actuation 1 puff inhalation Q12H gabapentin 300 mg PO BID insulin glargine (Lantus Solostar U-100 Insulin) 60 units subcut BEDTIME insulin lispro 20 units subcut TID lidocaine 5% 2 patches topical DAILY PRN lisinopril 40 mg PO QPM mometasone 100 mcg/actuation (Asmanex HFA) 2 puffs inhalation Q12H PRN pen needle, diabetic (UltiCare Pen Needle) As directed pioglitazone 15 mg PO QAM pyridoxine (vitamin B6) 100 mg PO QAM quetiapine 25 mg PO BID PRN quetiapine 150 mg PO BEDTIME ropinirole 0.5 mg PO BEDTIME rosuvastatin 5 mg PO BEDTIME semaglutide (Ozempic) 0.5 mg subcut MO sennosides-docusate sodium 8.6-50 mg (Senna Plus) 2 caps PO BEDTIME PRN trazodone 150 mg PO BEDTIME PRN HPI Comments Details: This is a 58-year-old female with history of chronic hepatitis-C who presents as a new patient for me. She was last seen by Kelsie Tsai 05/2021. She was initially evaluated for a positive rheumatoid factor and polyarthralgias. Patient states that she gets pain and stiffness in her hands, feet as well as numbness. Tylenol almost daily as needed for joint pain. Patient was evaluated by Infectious Disease in the past and was advised to start hepatitis C antiviral treatment but she could not tolerate it as the pills were too big. 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 Mother Diabetes mellitus Sister Diabetes mellitus Brother No problems noted. Paternal Uncle Colon cancer Social History Household Members: None Housing: Apartment Do you presently have visiting nurse or other home services: Yes Alcohol intake: current Alcohol intake frequency: does not drink Alcohol type: beer Patient Tobacco Use Status: Former Tobacco user Tobacco use type: Cigarette Cigarettes Per Day: 3 Years Smoked: 15 service: No Review of Systems Const Reports headache(s) Eyes Reports blurry vision ENT Reports headache(s) and Reports tinnitus Card Reports chest pain and Reports dyspnea Resp Reports dyspnea and Reports wheezing GI Reports nausea Musc Reports arthralgias, Reports joint swelling, Reports numbness, Reports stiffness and Reports tingling Neuro Reports headache(s), Reports numbness and Reports tingling Psych Reports abnormal sleep pattern, Reports anxiety and Reports depression Aller/Immun Reports wheezing Physical Exam Vital Signs: Last Vital Signs Pulse 55 01/17/24 08:58 BP 126/62 01/17/24 08:58 Pulse Ox 97 01/17/24 08:58 Oxygen Delivery Method Room Air 01/17/24 08:58 BMI result Body Mass Index 30.6 Const General: cooperative, healthy appearing and comfortable Nutritional Appearance: obese Orientation/consciousness: patient oriented x3 Limitations: no limitations HEENT Head: Yes normocephalic and Yes atraumatic Mouth: moist mucous membranes Resp Effort & Inspection: normal respiratory effort and able to speak in complete sentences Auscultation: clear to auscultation bilaterally Cardio Rate: regular rate Rhythm: regular rhythm Skin General skin exam: no rashes or lesions noted Neuro General: patient oriented x3 Extrem Other: Osteoarthritic changes of both hands with prominent Heberden's and Jaiden's nodes No swollen joints noted Minimal bilateral wrist pain with full flexion and extension Bilateral diffusely tender MCPs, PIPs and DIPs Normal range of motion without pain No knee pain with full flexion extension No ankle swelling or tenderness Negative MTP squeeze test Normal nailfold capillaroscopy Assessment & Plan Assessment & Plan (1) Rheumatoid factor positive: Code(s): R76.8 - Other specified abnormal immunological findings in serum Category: Medical Plan: This is a 58-year-old female who presents for evaluation of polyarthralgias in the setting of chronic untreated hepatitis-C with low titer positive rheumatoid factor and LINDA. On exam I do not see any clarence inflammatory arthritis, symptoms are likely related to chronic immune stimulation related to chronic untreated hepatitis-C. This can also cause positive rheumatoid factor and positive LINDA. Patient could not tolerate hepatitis-C treatment in the past as she stated that the tablets were too large I suggest re-evaluation by Infectious Disease/film processing shift supervisor Follow-up p.r.n. Plan I spent 20 minutes reviewing patient's chart, evaluating patient, counseling patient and documenting in the chart Coding Level of Care Code Est Pt Level 4 (43363) Diagnoses Rheumatoid factor positive R76.8
--- OUTSIDE RECORDS SUMMARY | 2024-01-24 06:10 | XMS_ITS | Continuity of Care Document ---
Author Organization [facility] Address [address] [place] [id number]- Care Team Providers Care Marketing Systems Analyst Name Role Phone Irene HARTMANN, Wanda Deras Primary Care Physician [phone] Encounter [facility] ACCT R [id number] Date(s): 11/30/23 - 01/05/24 [facility] [address] [place] [id number]- Attending Physician: Twin Becker MD Admitting Physician: Twin Becker MD Referring Physician: Wanda Bonilla NP Allergies, Adverse Reactions, Alerts No Known Allergies Medications amLODIPine 10 mg oral tablet TAKE 1 TABLET BY MOUTH EVERY MORNING Start Date: 11/28/23 Status: Ordered Asmanex HFA 100 mcg/inh inhalation aerosol INHALE 2 PUFFS BY MOUTH EVERY TWELVE HOURS DIRECTED Start Date: 11/28/23 Status: Ordered aspirin 81 mg oral capsule 1 capsule = 81 mg, By Mouth, Every 4 hours, 0 Refills, Maintenance, 01/15/23 11:03:00 EDT, Partial fill upon patient request if the prescription is for a schedule II opioid drug. Start Date: 01/15/23 Status: Ordered carvedilol 6.25 mg oral tablet 6.25 mg, 1, tablet, By Mouth, 2 times a day, # 60 tablet, Refills 6, Tot. Refills 6, Maintenance, 11/28/23 13:55:00 EDT, Route to Pharmacy Electronically, [facility], Partial fillupon patient request if the prescription is for a s... Start Date: 11/28/23 Stop Date: 06/25/24 Status: Ordered estradiol 0.1 mg/g vaginal cream INSERT 1 GRAM VAGINALLY IN THE MORNING. THEN USE 2 TIMES PER WEEK DIRECTED. Start Date: 11/28/23 Status: Ordered famotidine 20 mg oral tablet TAKE 1 TABLET BY MOUTH TWICE DAILY NEEDED HEARTBURN Start Date: 11/28/23 Status: Ordered Flovent HFA 110 mcg/inh inhalation [...] EVERY MORNING Start Date: 04/11/23 Status: Ordered naproxen 250 mg oral tablet TAKE 1 TABLET BY MOUTH TWICE DAILY IN THE MORNING AND IN THE EVENING WITH FOOD FOR PAIN OR FOR FEVER Start Date: 04/11/23 Status: Ordered Ozempic 2 mg/3 mL (0.25 mg or 0.5 mg dose) subcutaneous solution INJECT 0.5 MG SUBCUTANEOUSLY ONCE A WEEK Start Date: 11/28/23 Status: Ordered prazosin 2 mg oral capsule TAKE 1 CAPSULE BY MOUTH AT BEDTIME Start Date: 04/11/23 Status: Ordered QUEtiapine 25 mg oral tablet TAKE 1 TABLET BY MOUTH TWICE DAILY NEEDED Start Date: 11/28/23 Status: Ordered rOPINIRole 0.5 mg oral tablet TAKE 1 TABLET BY MOUTH 1-3 HOURS BEFORE BEDTIME Start Date: 11/28/23 Status: Ordered Simvastatin By Mouth, 0 Refills, [...] Team Personnel Name: Wanda Bonilla NP Position: [facility] Outreach Member Role: PCP Address: Address: [address], [place] [address]- Care Team Related Persons Name: NICHO MART Address: home [address] [place] [address] Name: DASIA MART Name: JEREMY CEDILLO Address: home [address] [address]
--- OUTSIDE RECORDS SUMMARY | 2024-01-24 06:10 | XMS_ITS | Continuity of Care Document ---
Author Organization [facility] ter Address [address] [place] [address]- Care Team Providers Care Fire Sprinkler Designer Name Role Phone Wanda Bonilla NP Primary Care Physician Encounter [facility] Date(s): 06/06/23 - 06/06/[address] [address]- Discharge Disposition: A-D/C Home Attending Physician: Jonathan Delgado DO Admitting Physician: Jonathan Delgado DO Referring Physician: Jonathan Delgado DO Allergies, Adverse Reactions, Alerts No Known [...] Acute 06/10/23 15:40:00 EST, 06/06/23 15:40:00 EST, [facility]/pharmacy #[id number], Partial fill upon patient request if the [...] mellitus Confirmed Active UTI symptoms Confirmed Active Vital Signs Most recent to oldest [Reference Range]: 1 2 3 Weight 75.7 kg (06/06/23 12:57 PM) Oxygen Saturation [94-100 %] 98 % (06/06/23 4:45 PM) 96 % (06/06/23 4:30 PM) 100 % (06/06/23 4:15 PM) Pulse Rate [55-90 bpm] 53 bpm *L* (06/06/23 12:57 PM) Blood Pressure [90-138/55-84 mm Hg] 166/81mm Hg *H* (06/06/23 4:30 PM) 179/93mm Hg *H* (06/06/23 4:15 PM) 167/85mm Hg *H* (06/06/23 4:00 PM) Respiratory Rate [16-30 br/min] 14 br/min *L* (06/06/23 4:45 PM) 16 br/min (06/06/23 4:30 PM) 16 br/min (06/06/23 4:15 PM) Temperature [96.8-100.4 DegF] 97.2 DegF (06/06/23 3:45 PM) 97.6 DegF (06/06/23 12:57 PM) Liters per Minute 6 L/min (06/06/23 3:45 PM) Mode of Delivery (Oxygen) Room air (06/06/23 4:45 PM) Room air (06/06/23 4:30 PM) Room air (06/06/23 4:00 PM) Blood pressure sites Arm, left (06/06/23 3:45 PM) Arm, right (06/06/23 12:57 PM) Temperature Route Temporal (06/06/23 3:45 PM) Temporal (06/06/23 12:57 PM) Dry Weight 75.7 kg (06/06/23 12:57 PM) Social History Social History Type Response Tobacco Use: 4 or less cigar ettes(less than 1/4 pack)/day in last 30 days. Sex Note * Iwona Dhaliwal RN: PERFORM Event Display: Discharge/Transfer Note Hospital Authored Date: [id number] Nursing Discharge Note Entered On: 06/06/2023 17:34 EST Performed On: 06/06/2023 17:34 EST by Iwona Dhaliwal RN Nursing Discharge Note 2 Discharge Time : 06/06/2023 17:31 EST Discharge Level of Care at Discharge : Home/Snf/Foster Care Patient Left Unit Via : Wheelchair Patient Accompanied Off Unit with : Significant other DC Instructions Provided & Signed by Pt : Yes Patient Understands D/C Instructions : Yes Patient Instructions Discharge Signed : Yes Did Pt have Specialty Bed or Wound Vac : No Iwona Dhaliwal RN - 06/06/2023 17:34 EST * Iwona Dhaliwal RN: MODIFY, PERFORM Event Display: Patient Education/Instruction Authored Date: [id number] Inpatient Adult Discharge Instructions [address] [address] Name: CHARLENE MART : 1965 Visit: 06/06/2023 11:50:00 Current Date: 06/06/2023 16:06 Account: [id number] Inpatient Adult Discharge Instructions We would like to thank you for allowing us to assist you with your healthcare needs. The following includes patient education materials and information regarding your injury/illness. Our entire staffstrives to provide an excellent experience for our patients and their families. PLEASE ENSURE YOU FOLLOW-UP PER THE INSTRUCTIONS BELOW! ?? YOUR OPINION IS IMPORTANT TO US! Please complete the survey you may receive by mail or email. Your feedback will be used to make improvements to the healthcare experiences of our patients and their families. Surveys are administered by [employer] ?? If further treatment with your primary care physician or another doctor is recommended, it is important for you to keep the appointment. Call your primary care physician or return to the Emergency Department immediately if your condition worsens, fails to improve, or new symptoms develop. If you need to find a doctor, you can call [facility] Link for a referral at [phone] or toll free at [phone] ([phone]) or log in to [email or web address].. ?? [facility], in keeping with [facility] guidance, no longer requires face masks for staff, patientsor visitors in most situations. Similiar to time spent indoors at other locations, there is the chance that you were exposed to repiratory viruses during your time with us (such as flu or COVID-19). If you develop symptoms concerning for a viral respiratory infection, please seek testing (and treatment if indicated) from your medical provider or home test kit. ?? You can view and manage your care through the patient portal or by using a health care matias of your choosing. [employer] is a website that allows you to securely view your medical information including your hospital discharge summary, office visit summaries, medications and follow-up visits. You can also request appointments, renew medications, and request access to your medical information using a health care matias of your choosing, or just ask a question. You can enroll at [email or web address] or register during your next office visit. You have been discharged from [facility], Patient Care Unit: [facility]. If you have any questions regarding these instructions after you leave, please call us and we will be happy to assist you. [facility] Your Care Team Attending Physician Jonathan Delgado DO Discharging Providers Jonathan Delgado DO Reason for Admission NIPPLE DISCHARGE CS DS Tests Performed Below is a partial list of the tests performed during your hospitalization. You may have had other tests and procedures not included in this list. Please discuss all test results with your provider. GLUCOSE POC Primary Care Provider Wanda Bonilla NP Advance Directive Health Care Proxy on File No Discharge Vitals Temperature: 97.2 DegF Weight: 75.7 kg Pulse Rate:??53 bpm??Low ?? Respiratory Rate:??7 br/min??Low ?? Systolic Blood Pressure:??180 mm Hg??High ?? Diastolic Blood Pressure:??87 mm Hg??High ?? Oxygen Saturation: 100 % ?? Studies Pending All tests and labs ordered during this hospital stay have been completed unless listed below. Please discuss all pending results with your provider listed above in these instructions. ?? No incomplete studies found What to do next Instructions From Your Doctor Discharge Orders Scheduled Follow-Up Appointments Sunday 10:30 AM EST ?? With: Karmen Davison NP Where: [facility] [address] [place] [address]- Status: Pending You Need to Schedule the Following Appointments Follow Up with??Jonathan Delgado Where: [address] [facility] [address] [facility] [place] [address]- Business (1) Follow Up with??Wanda Bonilla When:??In 0 days Where: [address] [place] [address]- Business (1) Discharge Medications CHARLENE MART :1965 Visit Date:06/06/2023 Medications: Please continue your medications until treatment is completed or stopped by your provider. Medications not listed below should be discontinued. Discuss any questions related to medications with your provider. What How Much When Instructions Next Dose New Tramadol (traMADol 50 mg oral tablet) 1 tab(s) Oral Every 6 hours as needed for Pain , Severe Pickup at [facility]/pharmacy #[id number] Unchanged Amlodipine Oral Daily Unchanged Aspirin (aspirin 81 mg oral capsule) 1 capsule Oral Every 4 hours Unchanged Cholecalciferol (Vitamin D3 1000 intl units oral capsule) 1 capsule Oral Daily Unchanged Fluticasone (Flovent HFA 110 mcg/ inh inhalation aerosol) INHALE 2 PUFFS EVERY TWELVE HOURS. RINSE MOUTH AFTER USING. ?? Unchanged Gabapentin Oral Unchanged Insulin Glargine (Lantus Solostar Pen 100 units/ mL subcutaneous solution) INJECT 60 UNITS SUBCUTANEOUSLY ONCE DAILY ?? Unchanged Insulin Lispro (Humalog 100 u/ ml subcutaneous injection) 1 unit(s) Subcutaneous Infusion Unchanged Lisinopril Oral Daily Unchanged Lisinopril (lisinopril 40 mg oral tablet) TAKE 1 TABLET BY MOUTH EVERY MORNING ?? Unchanged Metoprolol (metoprolol 25 mg oral tablet) 1 tab(s) Oral Twice a day Unchanged Naproxen (naproxen 250 mg oral tablet) TAKE 1 TABLET BY MOUTH TWICE DAILY IN THE MORNING AND IN THE EVENING WITH FOOD FOR PAIN OR FOR FEVER ?? Unchanged Prazosin (prazosin 2 mg oral capsule) TAKE 1 CAPSULE BY MOUTH AT BEDTIME ?? Unchanged Pyridoxine (Vitamin B6) Daily Unchanged Quetiapine Oral Unchanged Simvastatin Oral Unchanged Trazodone (traZODone 150 mg oral tablet) TAKE 1 TABLET BY MOUTH AT BEDTIME NEEDED FOR SLEEP ?? Pharmacy Information [facility]/pharmacy #[id number]: [address] [place], [place] [id number] [phone] Test Results Below is a partial list of the most recent Laboratory test results done prior to this discharge. You may have had other tests and procedures not included in this list. Please discuss all test resultswith your provider. GLUCOSE POC (06/06/2023) ???Glucose, POC - 99 mg/dL Allergies (NKA means No Known Allergies) NKA Problems Active Problems??(13) Anxiety?? Asthma?? Bipolar disease in ?? Breast mass?? Chronic hepatitis?? Cirrhosis?? Diabetic retinopathy?? Hyperlipidemia?? Hypertension?? Insulin dependent type 1 diabetes mellitus?? Obese class I?? Renal stones?? UTI symptoms?? Education Materials Below is the list of Educational Leaflet Providered with your Discharge Instructions. Surgery Medical Daystay Surgical Overnight Discharge Instructions?? Valuables and Belongings I fully understand and agree that [facility] accepts no responsibility for all my personal property including clothing, toilet articles, radios, jewelry, dentures, hearing aids, rings, money, or any other property that is in my possession or is brought to me after admission. I understand certain valuables may be placed in a hospital safe for a short period of time. I understand that the hospital is not liable for loss or damage due to accident, fire, or other natural occurrence while said property is in the safe. I accept full responsibility for any personal property that I keep with me, and will not hold the hospital responsible in case of loss or disappearance. I acknowledge that i have been encouraged to send valuables and belongings home. ? Other Discharge Information ? Pulmonary Rehab Status?? Pulmonary Rehab Discharge Status?? Respiratory Rate:??7 br/min??Low ? Common Emergency Awareness Tips IS IT A STROKE? Act FAST and Check for these signs: FACE Does the face look uneven? ARM Does one arm drift down? SPEECH Does their speech sound strange? TIME Call at any sign of stroke ?? Heart Attack Signs Chest discomfort: Most heart attacks involve discomfort in the center of the chest and lasts more than a few minutes, or goes away and comes back. It can feel like uncomfortable pressure, squeezing, fullness or pain. Discomfort in upper body: Symptoms can include pain or discomfort in one or both arms, back, neck, jaw or stomach. Shortness of breath: With or without discomfort. Other signs: Breaking out in a cold sweat, nausea, or lightheaded. Remember, MINUTES DO MATTER. If you experience any of these heart attack warning signs, call to get immediate medical attention! ?? Smoking can increase your chances of developing chronic health problems and can cause harmful effects to other family members in your house. If you smoke, you are strongly encouraged to quit. Please call [facility] Link at [phone] or 2-919-185-[employer].com ([phone]) or log in to [email or web address] for referrals to smoking cessation programs. ?? 267 Suicide & Crisis Lifeline is available 19/02 if you or someone you know needs to find a reason to keep living. By calling 106 you'll be connected to a skilled, trained counselor at a crisis center in your area. INPATIENT DISCHARGE INSTRUCTIONS SIGNATURE CHARLENE MCKEON Location:[facility] Registration Date and Time:06/06/2023 11:50 EST Primary Care Physician: Wanda Bonilla NP, Attending Physician: Jonathan Delgado DO, CHARLENE LOWE, have received the above patient education materials/instructions and have verbalized understanding. If ambulance or transport services are being used I further acknowledge being givena choice of service. ?? If you need to contact me, please call me at this number: CIS . Patient/Bunk House Worker Name: Milsa Colon Patient/Bunk House Worker Signature: Relationship to Patient: Patient Witness Name/Signature: Date: 06/06/23 * Iwona Dhaliwal RN: PERFORM, SIGN, VERIFY Event Display: Patient Education Handout Authored Date: [id number] * Iwona Dhaliwal RN: PERFORM Event Display: Patient Education Leaflets Authored Date: [id number] Surgery Medical Daystay Surgical Overnight Discharge Instructions ?? 295 Medical Daystay/Surgical Overnight Discharge Instructions ? Since your coordination and judgment may be altered by medication and/or anesthesia, a responsible adult must drive you home from the hospital. ? If you have received medication for pain or sedation while under our care, you should not drive, operate machinery, drink alcohol, or sign any legal documents for 24 hours.?? You should have someone with you at home tonight. ? Remain at home the day of discharge.?? You may be up and about unless otherwise instructed by your physician. ? You may resume your daily prescription medication schedule.?? Any depressant medication should be avoided for 24 hours unless otherwise instructed by your surgeon or anesthesiologist. ? Call your physician for a follow-up appointment.? If you experience unusual or severe pain not relied by your pain medication, excessive bleedingor drainage, persistent nausea and vomiting, excessive swelling or redness, foul odor from incisionsite or fever over 100.6F, you need to call your physician. ? A follow-up phone call by a nurse will be made the day after your procedure.?? If you have stayed with us over night, you will not be receiving a follow-up phone call. ? Nausea and vomiting are a common side effect of prescription pain medication.?? We recommend that pills are not taken on an empty stomach.?? While taking any prescription pain medication you should not drive or drink alcohol. ? Patient Care team information Care Team Personnel Name: Wanda Bonilla NP Position: S Outreach Member Role: PCP Address: Address: [address] [facility] [address], [place] [address]- Care Team Related Persons Name: NICHO MART Address: home [address] [place] [address] Name: DASIA MART
--- OUTSIDE RECORDS SUMMARY | 2024-01-24 06:10 | XMS_ITS | Continuity of Care Document ---
Author Organization [facility] Address [address] [place] [address]- Care Team Providers Care Electronic Semiconductor Processor Name Role Phone Wanda Bonilla NP Primary Care Physician En[place] [facility] [id number] Date(s): 09/05/23 - 10/05/23 [facility] [address] [place] [address]- Attending Physician: Paulina Mercado Admitting Physician: AdmPaulina [place] Referring Physician: AdmtrPaulina Allergies, Adverse Reactions, Alerts No Known Allergies [...] Team Personnel Name: Wanda Bonilla NP Position: [facility] Outreach Member Role: PCP Address: Address: [address] [place] [address]- Care Team Related Persons Name: NICHO MART Address: home [address] [place] [address] Name: DASIA MART
--- OUTSIDE RECORDS SUMMARY | 2024-01-24 06:10 | XMS_ITS | Continuity of Care Document ---
Author Organization [facility] ter Address [address] [place] [address]- Care Team Providers Care Ecological Risk Assessor Name Role Phone Wanda Bonilla NP Primary Care Physician [place] [facility] [place] Date[place] 04/24/23 - 06/08/[address] [address]- Attending Physician: Jonathan Delgado DO Admitting Physician: Jonathan Delgado DO Allergies, Adverse Reactions, [...] 06/10/23 15:40:00 EST, 06/06/23 15:40:00 EST, [facility]/pharmacy #[id number], Partial fill upon patient request if the [...] Team Personnel Name: Wanda Bonilla NP Position: [facility] Outreach Member Role: PCP Address: Address: [address] [place] [address]- Care Team Related Persons Name: NICHO MART Address: home [address] [place] [address] Name: DASIA MART
--- OUTSIDE RECORDS SUMMARY | 2024-01-24 06:10 | XMS_ITS | Continuity of Care Document ---
Author Organization [facility] Address [address] [facility] [place] [address]- Care Team Providers Care Gyro Mechanic Name Role Phone Irene HARTMANN, Wanda Deras Primary Care Physician En[place] [facility] [place] [place] [id number] Date(s): 04/20/23 - 06/21/23 [facility] [address] [place] [address]- Attending Physician: Saman HARTMANN, Karmen Admitting Physician: Saman HARTMANN, Karmen Referring Physician: Jonathan Delgado DO Allergies, Adverse [...] Team Personnel Name: Wanda Bonilla NP Position: [facility] Outreach Member Role: PCP Address: Address: [address] [place] [address]- Care Team Related Persons Name: NICHO MART Address: home [address] [place] [address] Name: DASIA MART
--- OUTSIDE RECORDS SUMMARY | 2024-01-24 06:10 | XMS_ITS | Continuity of Care Document ---
Author Organization [facility] Address [address] [place] [address]- Care Team Providers Care Emergency Medical Tech Name Role Phone Irene HARTMANN, Wanda Deras Primary Care Physician Encounter [facility] [place] Date(s): 10/31/23 - 11/30/23 [facility] [address] [place] [address] [place] Allergies, Adverse Reactions, Alerts No Known Allergies [...] 11/28/23 13:55:00 EDT, Route to Pharmacy Electronically, [facility], Partial fillupon patient request if [...] Team Personnel Name: Wanda Bonilla NP Position: [facility] Outreach Member Role: PCP Address: Address: [address] [facility], [place] [address]- Care Team Related Persons Name: NICHO MART Address: home [address] [place] [address] Name: DASIA MART Name: JEREMY CEDILLO Address: home [address] [address]
== END 2024-01-17 09:20 | disposition home or self-care (01) ==
LOC: HO.RHE 08:58
PROVIDERS: PCP Nurse Practitioner Primary Care; Visit Provider Student in an Organized Health Care Education/Training Program
DX: R76.8 Other specified abnormal immunological findings in serum (principal)
CPT/HCPCS: 99214

== ENCOUNTER → 2024-01-17 08:57 | Outpatient (BNVA) | payer MEDICAID, SELFPAY | PROVIDERS: PCP Nurse Practitioner Primary Care; Visit Provider Student in an Organized Health Care Education/Training Program | DX: R76.8 Other specified abnormal immunological findings in serum (principal) | CPT/HCPCS: 99212 ==

== ENCOUNTER 2024-02-15 13:01 | Day surgery (SDC) | payer MEDICAID, SELFPAY ==
--- NOTE | 2024-02-14 08:54 | P.CONAN_ITS ---
HPI - Anesthesia Eval Consult details Narrative: 58yo F for Upper Endoscopy [facility] admit 10/2023 with CP. Negative cardiac w/u. Likely r/t neuropathy and chest pain had resolved completely with brandin at time of [facility] cardiology outpatient f/u.. Cirrhosis d/t hep C. No paracentesis on record. Anesthesia Pre-Procedure Meds Is the patient on any of the following meds?: GLP1/DPP4 PMFSH Active Problems Active Problems: All Active Problems Rheumatoid factor positive (Acute) Diabetes mellitus, insulin dependent (IDDM), uncontrolled (Acute) Hyperlipidemia (Acute) NSTEMI (non-ST elevated myocardial infarction) (Acute) Elevated troponin (Acute) Peripheral neuropathy (Acute) Dysuria (Acute) Hydronephrosis (Acute) Kidney stone on left side (Acute) Hematoma of kidney (Acute) Chronic headaches (Acute) Somnolence, daytime (Acute) PAD (peripheral artery disease) (Acute) Bilateral kidney stones (Acute) Cirrhosis (Acute) Calcaneal spur, left (Acute) Adverse effect of COVID-19 vaccine (Acute) Sleep disorder, unspecified (Acute) Asthma (Acute) Hepatitis C (Acute) Flank pain (Acute) Renal stones (Acute) Past Medical History Medical History (Updated 02/28/24 @ 13:54 by Ashlie Maldonado MD) Neuropathy Somnolence, daytime Flank pain RUQ abdominal pain Left foot pain Bilateral hand pain COVID-19 Hepatitis C Rheumatoid arthritis Flank pain Renal stones Bipolar disorder Panic disorder Depression Anxiety Abdominal distension (gaseous) Asthma Hyperlipidemia Benign neoplasm of pituitary gland and craniopharyngeal duct Mononeuritis HTN (hypertension) Diabetes mellitus, insulin dependent (IDDM), uncontrolled Obese GERD (gastroesophageal reflux disease) Kidney stone Chronic hepatitis C without hepatic coma Cirrhosis of liver without ascites Family History Family History Father No problems noted. Mother Diabetes mellitus Sister Diabetes mellitus Brother No problems noted. Paternal Uncle Colon cancer Family history of problems with anesthesia: No Surgical History Surgical History (Updated 02/28/24 @ 12:55 by Shelli García) H/O colonoscopy Hx of lithotripsy History of esophagogastroduodenoscopy (EGD) Hx of cholecystectomy History of Problems with Anesthesia: No Social History Social History Household Members: None Housing: Apartment Do you presently have visiting nurse or other home services: Yes Alcohol intake: current Alcohol intake frequency: former alcohol drinker Alcohol type: beer Patient Tobacco Use Status: Current everyday Tobacco user Tobacco use type: Cigarette Cigarettes Per Day: 2 Years Smoked: 15 service: No Meds Allergies Allergy/AdvReac Type Severity Reaction Status Date / Time morphine AdvReac Abdominal Verified 02/15/24 13:29 Pain Home Medications ?Medication ?Instructions ?Recorded ?Confirmed ?Last Taken ?Type gabapentin 300 mg capsule 300 mg PO BID 07/28/20 01/17/24 11/12/23 History cholecalciferol (vitamin D3) 25 25 mcg PO QAM 10/12/22 01/17/24 11/12/23 History mcg (1,000 unit) capsule (Vitamin D3) insulin lispro 100 unit/mL 20 unit subcut TID 10/12/22 01/17/24 11/12/23 History subcutaneous pen lidocaine 5 % topical patch 2 patch topical DAILY PRN Pain 10/12/22 01/17/24 Unknown History pen needle, diabetic 31 gauge x #1,200 ea 10/12/22 01/17/24 Unknown History 12/12 (UltiCare Pen Needle) pioglitazone 15 mg tablet 15 mg PO QAM 10/12/22 01/17/24 11/12/23 History quetiapine 25 mg tablet 25 mg PO BID PRN Sleep 05/05/23 01/17/24 Unknown History albuterol sulfate 2.5 mg/3 mL 2.5 mg inhalation Q4H PRN sob 09/10/23 01/17/24 Unknown History (0.083 %) solution for nebulization aspirin 81 mg tablet,delayed 81 mg PO QPM 09/24/23 01/17/24 11/11/23 History release semaglutide 0.25 mg or 0.5 mg (2 0.5 mg subcut MO 09/24/23 01/17/24 02/04/24 History mg/3 mL) subcutaneous pen injector (Ozempic) amlodipine 10 mg tablet 10 mg PO QAM 11/12/23 01/17/24 02/15/24 09:00 History insulin glargine 100 unit/mL (3 60 unit subcut BEDTIME 11/12/23 01/17/2424 History mL) subcutaneous pen (Lantus Solostar U-100 Insulin) lisinopril 40 mg tablet 40 mg PO QPM 11/12/23 01/17/24 Unknown History quetiapine 100 mg tablet 150 mg PO BEDTIME 11/12/23 01/17/24 11/11/23 History ropinirole 0.5 mg tablet 0.5 mg PO BEDTIME 11/12/23 01/17/24 11/11/23 History rosuvastatin 5 mg tablet 5 mg PO BEDTIME 11/12/23 01/17/24 11/11/23 History famotidine 20 mg tablet 20 mg PO TID 11/13/23 01/17/24 11/12/23 History fluticasone propionate 110 1 puff inhalation Q12H 11/13/23 01/17/24 11/11/23 History mcg/actuation HFA aerosol inhaler mometasone 100 mcg/actuation HFA 2 puff inhalation Q12H PRN sob 11/13/23 01/17/24 Unknown History aerosol inhaler (Asmanex HFA) sennosides 8.6 mg-docusate sodium 2 cap PO BEDTIME PRN Constipation 11/13/23 01/17/24 Unknown History 50 mg capsule (Senna Plus) trazodone 150 mg tablet 150 mg PO BEDTIME PRN Sleep 11/13/23 01/17/24 Unknown History carvedilol 6.25 mg tablet 6.25 mg PO 12/21/23 01/17/24 02/15/24 09:00 History Exam Pertinent Lab Results Pertinent Lab Results: Laboratory Tests 01/09/24 09:49 WBC 5.3 Hgb 12.2 Hct 35.7 L Plt Count 131 L D Sodium 143 Potassium 4.2 Chloride 110 H Carbon Dioxide 27 BUN 13 Creatinine 1.12 Narrative Narrative: EKG 10/2023 Vent. Rate : 056 BPM Atrial Rate : 056 BPM P-R Int : 162 ms QRS Dur : 094 ms QT Int : 440 ms P-R-T Axes : 047 -31 136 degrees QTc Int : 424 ms Sinus bradycardia Left axis deviation Left ventricular hypertrophy with repolarization abnormality ( R in aVL , Marquez product , Romhilt-Putnam ) Abnormal ECG When compared with ECG of 12-NOV-2023 11:21, No significant change was found NM javier perf SPECT rest & str 10/2023 Impression: 1. Myocardial perfusion imaging study shows normal myocardial perfusion 2. Gated LVEF is 45%, although visually there are LV systolic function appears to be within normal range 3. Transient ischemic dilatation not present ECHO 10/2023 Conclusions: - The left ventricular systolic function is normal. The calculated ejection fraction is 60% by biplane method. - There is severely increased left ventricular wall thickness. - No obvious valvular pathology seen on this study. - There is mild dilatation of the ascending aorta measuring 4.00 cm. US abdomen complete 08/2023 IMPRESSION: Findings consistent with hepatic cirrhosis with elevated portal pressures and varices. No focal hepatic mass identified. Assessment and Plan Assessment Anesthesia Assessment: Chart Reviewed Final Anesthetic Review Family History of Problems with Anesthesia: No History of Problems with Anesthesia: No
--- OUTSIDE RECORDS SUMMARY | 2024-02-15 13:05 | XMS_ITS | Continuity of Care Document ---
Author Organization [facility] Janelle Rdoarte [facility] Address [address] [facility] [address] [place] [address]- Care Team Providers Care Atm Manager Name Role Phone Wanda Bonilla NP Primary Care Physician Encounter [facility] Date(s): 12/22/23 - 01/21/[address] [address]- Allergies, Adverse Reactions, Alerts No Known Allergies [...] 11/28/23 13:55:00 EDT, Route to Pharmacy Electronically, [facility], Partial fillupon patient request if [...] Team Personnel Name: Wanda Bonilla NP Position: [facility] Outreach Member Role: PCP Address: Address: [address] [facility], [place] [address]- Care Team Related Persons Name: NICHO MART Address: home [address] [place] [address] Name: DASIA MART Name: JEREMY CEDILLO Address: home [address] [address]
--- OUTSIDE RECORDS SUMMARY | 2024-02-15 13:05 | XMS_ITS | Continuity of Care Document ---
Author Organization [facility] Address [address] [place] [address]- Care Team Providers Care Hand Carver Name Role Phone Irene HARTMANN, Wanda Deras Primary Care Physician Encounter [facility] Date(s): 12/18/23 - 01/17/24 [facility] [address] [place] [address]- [place] Allergies, Adverse Reactions, Alerts No Known [...] 11/28/23 13:55:00 EDT, Route to Pharmacy Electronically, [facility], Partial fillupon patient request if the [...] Team Personnel Name: Wanda Bonilla NP Position: [facility] Outreach Member Role: PCP Address: Address: [address] [facility], [place] [address]- Care Team Related Persons Name: NICHO MART Address: home [address] [place] [address] Name: DASIA MART Name: JEREMY CEDILLO Address: home [address] [address]
--- OUTSIDE RECORDS SUMMARY | 2024-02-15 13:05 | XMS_ITS | Continuity of Care Document ---
Author Organization [facility] Address [address] [place] [address]- Care Team Providers Care Vocational Rehabilitation Technician Name Role Phone Irene HARTMANN, Wanda Deras Primary Care Physician Encounter [facility] ACCT R [id number] Date(s): 12/18/23 - 01/26/24 [facility] [address] [place] [address]- Attending Physician: Twin Becker MD Admitting Physician: [...] 11/28/23 13:55:00 EDT, Route to Pharmacy Electronically, [facility], Partial fillupon patient request if [...] Team Personnel Name: Wanda Bonilla NP Position: [facility] Outreach Member Role: PCP Address: Address: [address] [facility], [place] [address]- Care Team Related Persons Name: NICHO MART Address: home [address] [place] [address] Name: DASIA MART Name: JEREMY CEDILLO Address: home [address] [address]
--- OUTSIDE RECORDS SUMMARY | 2024-02-15 13:05 | XMS_ITS | Continuity of Care Document ---
Author Organization [facility] Address [address] [place] [address]- Care Team Providers Care Pastry Cook Name Role Phone Irene HARTMANN, Wanda Deras Primary Care Physician [phone] Encounter [facility] ACCT R [id number] Date(s): 12/27/23 - 01/26/24 [facility] [address] [place] [address]- Attending Physician: Paulina Mercado Admitting Physician: Paulina Mercado Referring Physician: Paulina Mercado Allergies, Adverse Reactions, Alerts No Known Allergies [...] 11/28/23 13:55:00 EDT, Route to Pharmacy Electronically, [facility], Partial fillupon patient request if [...] days. Sex EKG study * Event Display: EKG Authored Date: Patient Care team information Care Team Personnel Name: Irene HARTMANN, Wanda Deras Position: [facility] Outreach Member Role: PCP Address: Address: [address] [facility], [place] [address]- Care Team Related Persons Name: NICHO MART Address: home [address] [place] [address] Name: DASIA MART Name: JEREMY CEDILLO Address: home [address] [address]
[2024-02-15 13:33] VITALS: BMI 29.4
[2024-02-15 13:56] VITALS: BP 165/46; PULSE 40; RESP 16; TEMP 35.9; O2SAT 97
[2024-02-15 13:57] LABS: Glucose, Whole Blood 120 mg/dL (60-115)
[2024-02-15] MEDS: Lactated Ringers 1,000 ML 100 ML IVCONT (13:57)
--- NOTE | 2024-02-15 14:08 | P.HPSUR_ITS ---
Pre-Procedural Eval Section A - 24 Hr Update-Section A only Date of Service: 02/15/24 The patient is an INPATIENT: No The patient has been examined within 24 hours of the surgical procedure. The History & Physical has been completed within 30 days and I have reviewed it.: No Section B - Complete if H&P > 30 days Chief Complaint: screening Details of Present Illness: cirrhosis screen for varices, follow-up of PUD Relevant Family History (Specify if Yes): No Relevant Social History: Tobacco Use Present Medications: see Short Stay Collaborative assessment Medical History: Significant History (Anxiety Benign neoplasm of pituitary gland and craniopharyngeal duct Bipolar disorder Chronic hepatitis C without hepatic coma Cirrhosis of liver without ascites Depression Diabetes mellitus, insulin dependent (IDDM), uncontrolled GERD (gastroesophageal reflux disease) HTN (hypertension) Hyperlipide) History of Previous Operations: Relevant previous surgery/procedure and date(s) (History of esophagogastroduodenoscopy (EGD) Hx of cholecystectomy Hx of lithotripsy) Allergies: Allergies Allergy/AdvReac Type Severity Reaction Status Date / Time morphine AdvReac Abdominal Verified 02/15/24 13:29 Pain Review of Systems Sugical H&P ROS: Negative: Constitution, Cardiovascular, Respiratory and Gastrointestinal Exam Surgical H&P Exam: Normal: Heart, Normal: Lungs, Normal: Extremities and Normal: Abdomen Plan Diagnosis/Plan: Change (Proceed with EGD. Pt requested to reschedule her col onoscopy for a later date) I have reviewed the history and physical and performed a pertinent physical examination on my patient. No changes have occurred unless specified. Time Spent With Patient Time: Total time managing care of this patient today ____ minutes.
--- NOTE | 2024-02-15 14:24 | PC.NURSE ---
when pt first placed on monitor, heart rate in 50's. upon resting for a few minutes, heart rate went all the way down to 39. anesthesia made aware and ok'd to proceed. per pt request, info written on paper what her heart rate was in preop. anes assured pt they could give her meds to increase heart rate during procedure. encouraged to possibly get montiroed at night with holter.
--- NOTE | 2024-02-15 14:52 | HO.ANESPROP2 ---
[facility] Active Problems Active Problems: All Active Problems Rheumatoid factor positive (Acute) NSTEMI (non-ST elevated myocardial infarction) (Acute) Elevated troponin (Acute) Peripheral neuropathy (Acute) Dysuria (Acute) Hydronephrosis (Acute) Kidney stone on left side (Acute) Hematoma of kidney (Acute) Chronic headaches (Acute) PAD (peripheral artery disease) (Acute) Bilateral kidney stones (Acute) Cirrhosis (Acute) Calcaneal spur, left (Acute) Adverse effect of COVID-19 vaccine (Acute) Sleep disorder, unspecified (Acute) Diabetes mellitus, insulin dependent (IDDM), uncontrolled (Acute) Hyperlipidemia (Acute) Somnolence, daytime (Acute) Asthma (Acute) Hepatitis C (Acute) Flank pain (Acute) Renal stones (Acute) Past Medical History Medical History Neuropathy Somnolence, daytime Flank pain RUQ abdominal pain Left foot pain Bilateral hand pain COVID-19 Hepatitis C Rheumatoid arthritis Flank pain Renal stones Bipolar disorder Panic disorder Depression Anxiety Abdominal distension (gaseous) Asthma Hyperlipidemia Benign neoplasm of pituitary gland and craniopharyngeal duct Mononeuritis HTN (hypertension) Diabetes mellitus, insulin dependent (IDDM), uncontrolled Obese GERD (gastroesophageal reflux disease) Kidney stone Chronic hepatitis C without hepatic coma Cirrhosis of liver without ascites Functional capacity: independent ambulation Patient : No Family History Family History Father No problems noted. Mother Diabetes mellitus Sister Diabetes mellitus Brother No problems noted. Paternal Uncle Colon cancer Family history of problems with anesthesia: No Surgical History Surgical History H/O colonoscopy Hx of lithotripsy History of esophagogastroduodenoscopy (EGD) Hx of cholecystectomy History of Problems with Anesthesia: No Social History Social History Household Members: None Housing: Apartment Do you presently have visiting nurse or other home services: Yes Alcohol intake: current Alcohol intake frequency: former alcohol drinker Alcohol type: beer Patient Tobacco Use Status: Current everyday Tobacco user Tobacco use type: Cigarette Cigarettes Per Day: 2 Years Smoked: 15 Use of substances other than those prescribed or required for medical reasons: No Are you DNR?: No Advance Directives: No Advance Directives Information Provided: Yes service: No Meds Allergies Allergy/AdvReac Type Severity Reaction Status Date / Time morphine AdvReac Abdominal Verified 02/15/24 13:29 Pain Active Medications: Current Medications Albuterol Sulfate (Albuterol Sulfate (0.083%) 2.5 Mg/3 Ml Vial.Neb) 2.5 mg INHALE ONCE PRN PRN Reason: Shortness of Breath/Wheezing Lactated Ringer's (Lr) 1,000 mls @ 100 mls/hr IVCONT .Q10H ELISE Last Admin: 02/15/24 13:57 Dose: 100 mls/hr Home Medications ?Medication ?Instructions ?Recorded ?Confirmed ?Last Taken ?Type gabapentin 300 mg capsule 300 mg PO BID 07/28/20 01/17/24 11/12/23 History cholecalciferol (vitamin D3) 25 25 mcg PO QAM 10/12/22 01/17/24 11/12/23 History mcg (1,000 unit) capsule (Vitamin D3) insulin lispro 100 unit/mL 20 unit subcut TID 10/12/22 01/17/24 11/12/23 History subcutaneous pen lidocaine 5 % topical patch 2 patch topical DAILY PRN Pain 10/12/22 01/17/24 Unknown History pen needle, diabetic 31 gauge x #1,200 ea 10/12/22 01/17/24 Unknown History 12/12 (UltiCare Pen Needle) pioglitazone 15 mg tablet 15 mg PO QAM 10/12/22 01/17/24 11/12/23 History quetiapine 25 mg tablet 25 mg PO BID PRN Sleep 05/05/23 01/17/24 Unknown History albuterol sulfate 2.5 mg/3 mL 2.5 mg inhalation Q4H PRN sob 09/10/23 01/17/24 Unknown History (0.083 %) solution for nebulization aspirin 81 mg tablet,delayed 81 mg PO QPM 09/24/23 01/17/24 11/11/23 History release semaglutide 0.25 mg or 0.5 mg (2 0.5 mg subcut MO 09/24/23 01/17/24 02/04/24 History mg/3 mL) subcutaneous pen injector (Ozempic) amlodipine 10 mg tablet 10 mg PO QAM 11/12/23 01/17/24 02/15/24 09:00 History insulin glargine 100 unit/mL (3 60 unit subcut BEDTIME 11/12/23 01/17/24 11/11/23 History mL) subcutaneous pen (Lantus Solostar U-100 Insulin) lisinopril 40 mg tablet 40 mg PO QPM 11/12/23 01/17/24 Unknown History quetiapine 100 mg tablet 150 mg PO BEDTIME 11/12/23 01/17/24 11/11/23 History ropinirole 0.5 mg tablet 0.5 mg PO BEDTIME 11/12/23 01/17/24 11/11/23 History rosuvastatin 5 mg tablet 5 mg PO BEDTIME 11/12/23 01/17/24 11/11/23 History famotidine 20 mg tablet 20 mg PO TID 11/13/23 01/17/24 11/12/23 History fluticasone propionate 110 1 puff inhalation Q12H 11/13/23 01/17/24 11/11/23 History mcg/actuation HFA aerosol inhaler mometasone 100 mcg/actuation HFA 2 puff inhalation Q12H PRN sob 11/13/23 01/17/24 Unknown History aerosol inhaler (Asmanex HFA) sennosides 8.6 mg-docusate sodium 2 cap PO BEDTIME PRN Constipation 11/13/23 01/17/24 Unknown History 50 mg capsule (Senna Plus) trazodone 150 mg tablet 150 mg PO BEDTIME PRN Sleep 11/13/23 01/17/24 Unknown History carvedilol 6.25 mg tablet 6.25 mg PO 12/21/23 01/17/24 02/15/24 09:00 History Exam Height,Weight and Vital Signs: Height 5 ft 3 in Weight 75.296 kg Last Vital Signs Temp 96.6 F L 02/15/24 13:56 Pulse 40 L 02/15/24 13:56 Resp 16 02/15/24 13:56 BP 165/46 H 02/15/24 13:56 Pulse Ox 97 02/15/24 13:56 O2 Del Method Room Air 02/15/24 13:56 Pertinent Lab Results Pertinent Lab Results: Laboratory Tests 02/15/24 13:45 POC Glucose 120 H Airway Mallampati Class: III TM Dist: >3cm Neck ROM: Full Heart: RRR Lungs: CT Assessment and Plan Assessment Anesthesia Assessment: Anesthesia Plan Discussed and Smoking Cess. Discussed Final Anesthetic Review Family History of Problems with Anesthesia: No History of Problems with Anesthesia: No NPO: Yes ASA Class: III Final Preanesthetic Review: Meds/Allgs Chart Reviewed, Consent Obtained/Reviewed and Anes Risks/Benef Reviewed Patient Risk: Intermediate Procedure Risk: Low Anesthetic Plan Anesthetic Plan: MAC: Disposition: Standard PACU
--- NOTE | 2024-02-15 15:56 | W.PM.OPN ---
Operative Note Operative Note Date of Service: 02/15/24 Narrative: FLEXIBLE TRANSORAL UPPER GASTROINTESTINAL ENDOSCOPY Pre-op diagnosis: Cirrhosis - screen for varices Post-op diagnosis: Gastritis, Endoscopist:? Ashlie Maldonado MD Anesthesia:?MAC (Dr Payton) UPPER ENDOSCOPY Consent: Indications for the procedure and potential complications of bleeding, perforation, reaction to medications and missed diagnosis were discussed with the patient and informed consent was obtained. Instrument: Olympus GIF H 190 mid size upper endoscope Monitoring: Vital signs and clinical assessment, continuous EKG monitoring, Pulse oximetry, Carbon Dioxide monitoring and blood pressure monitoring were done throughout the procedure. Pt had bradycardia with HR ranging between 40 and 50 prior to the procedure and denied any symptoms She was given glyco 0.2 mg with improvement in HR to 70. Pt developed hypoxia and an LMA was placed with resolution of hypoxia Procedure: The patient was placed in the left lateral decubitis position and pre-procedure medications were administered and a bite block was placed. The endoscope was inserted into the mouth and advanced under direct vision to the third part of duodenum. A careful inspection was made as the upper endoscope was withdrawn including a retroflexed examination of the proximal stomach; Pt desaturated during the EGD before any biopsies could be obtained. The upper endoscope was removed and an LMA was placed with resolution of hypoxia Findings and interventions are described below. Findings: Larynx: Normal Esophagus: GE junction at 36 cms. No varices, esophagitis or Harrison's. Stomach: Mild portal gastropathy and antral erythema. No gastric varices and grade 2 flap valve on retroflexed examination of the cardia. Duodenum: A diverticulum seen in the medial wall of the bulb. Intervention: None Impression and Post Procedure Diagnosis: Endoscopy Findings: ESOPHAGUS: No varices, esophagitis or Harrison's. STOMACH: Gastritis DUODENUM: A large diverticulum seen in the medial wall of the bulb. Plan: Pt has a FU appointment on 02/28/[address] Maldonado She will be scheduled for a colonoscopy (Needs GA with endotracheal intubation for future procedures). Above findings were reviewed with the patient and relevant handouts were given and the discharge area.
[2024-02-15 16:06] VITALS: BP 146/71; PULSE 76; RESP 16; TEMP 36.2; O2SAT 95
[2024-02-15 16:11] VITALS: BP 151/63; PULSE 77; RESP 16; O2SAT 97
[2024-02-15 16:16] VITALS: BP 155/96; PULSE 74; RESP 16; O2SAT 97
[2024-02-15 16:21] VITALS: BP 143/89; PULSE 75; RESP 18; TEMP 36.3; O2SAT 97
--- NOTE | 2024-02-15 18:45 | HO.POSTANES ---
Post Anesthesia Evaluation Post Anesthesia Evaluation Date of Service: 02/15/24 Vital Signs: Vital Signs Temp Pulse Resp BP Pulse Ox O2 Del Method 02/15/24 16:21 97.4 F 75 18 143/89 H 97 Room Air 02/15/24 16:16 74 16 155/96 H 97 Room Air 02/15/24 16:11 77 16 151/63 H 97 Room Air 02/15/24 16:06 97.2 F 76 16 146/71 H 95 Room Air 02/15/24 13:56 96.6 F L 40 L 16 165/46 H 97 Room Air Anesthesia: Monitored Mental Status: Awake Pain Control: Satisfactory Nausea/Vomiting: None Hydration: Adequate Anesthesia-Related Issues: No Anes. Related Issues
== END 2024-02-15 16:33 | disposition home or self-care (01) ==
PROVIDERS: PCP Nurse Practitioner Primary Care; Visit Provider Internal Medicine Gastroenterology
PROC: 0DJ08ZZ Inspection of Upper Intestinal Tract, Via Natural or Artificial Opening Endoscopic (ICD-10-PCS; CPT 43235; principal; 2024-02-15 14:10)
DX: K91.81 Other intraoperative complications of digestive system (principal); Y65.8 Other specified misadventures during surgical and medical care; Y73.0 Diagnostic and monitoring gastroenterology and urology devices associated with adverse incidents; Y92.234 Operating room of hospital as the place of occurrence of the external cause; R09.02 Hypoxemia; R00.1 Bradycardia, unspecified; K31.89 Other diseases of stomach and duodenum; K57.10 Diverticulosis of small intestine without perforation or abscess without bleeding; K21.9 Gastro-esophageal reflux disease without esophagitis; K74.60 Unspecified cirrhosis of liver; B18.2 Chronic viral hepatitis C; K29.70 Gastritis, unspecified, without bleeding; K31.9 Disease of stomach and duodenum, unspecified; J45.909 Unspecified asthma, uncomplicated; I10 Essential (primary) hypertension; E11.9 Type 2 diabetes mellitus without complications; Z79.4 Long term (current) use of insulin; Z79.85 Long-term (current) use of injectable non-insulin antidiabetic drugs; Z79.82 Long term (current) use of aspirin; Z79.51 Long term (current) use of inhaled steroids; Z79.899 Other long term (current) drug therapy; Z88.5 Allergy status to narcotic agent; F17.210 Nicotine dependence, cigarettes, uncomplicated
CPT/HCPCS: 43235; 82947; J1596; J2704

== ENCOUNTER → 2024-02-15 13:01 | Outpatient (BNV) | payer MEDICAID, SELFPAY | PROVIDERS: PCP Nurse Practitioner Primary Care; Visit Provider Internal Medicine Gastroenterology | DX: K29.70 Gastritis, unspecified, without bleeding (principal); K31.89 Other diseases of stomach and duodenum; K57.11 Diverticulosis of small intestine without perforation or abscess with bleeding | CPT/HCPCS: 43235 ==

== ENCOUNTER 2024-02-25 13:48 | Outpatient (REF) | payer MEDICAID, SELFPAY ==
--- NOTE | ~2024-02-25 | XR_ITS ---
EXAMINATION: XR ABDOMEN KUB CLINICAL INDICATION: Pain, low back pain COMPARISON: CT scan abdomen and pelvis 01/09/2024 TECHNIQUE: AP view of the abdomen. FINDINGS: The bowel gas pattern is normal with no evidence of ileus or obstruction. Several calcifications project over the left kidney. Question of punctate calcifications in the left upper ureter. Surgical clips in right upper quadrant are likely consistent with prior cholecystectomy. No acute osseous abnormality. XR/XR KUB IMPRESSION: 1. Nonobstructive bowel gas pattern. 2. Several calcifications project over the left kidney. Question of punctate calcifications in the left upper ureter.
== END 2024-02-25 13:49 | disposition home or self-care (01) ==
LOC: HO.HHCX 13:48
PROVIDERS: Visit Provider Student in an Organized Health Care Education/Training Program
DX: M54.50 Low back pain, unspecified (principal)
CPT/HCPCS: 74018

== ENCOUNTER 2024-03-07 16:10 | Outpatient (REF) | payer MEDICAID, SELFPAY ==
[2024-03-07 16:23] LABS: Appearance Urine Clear; Color Urine Yellow; Glucose Urine UA 100 mg/dL (Negative); Leukocyte Esterase Urine Trace (Negative); Nitrite Urine Negative (Negative); Specific Gravity - Urine 1.025 (1.005-1.025); UMIC TRIGGER UACC YES; Urine Blood Negative (Negative); Urine Ketones Trace mg/dL (Negative); Urine Protein Trace mg/dL (Neg-Trace)
[2024-03-07 16:26] LABS: Bacteria Urine 1+ (None Seen); Hyaline Casts Urine 0-2 /LPF (0-2); RBC Urine 0-2 /HPF (0-2); WBC Urine 0-5 /HPF (0-5)
[2024-03-12 11:45] LABS: Bacterial Vaginosis PCR NEGATIVE (Negative); Candida Group PCR NOT DETECTED (Not Detect); Candida glab krusei PCR NOT DETECTED (Not Detect); Trichomonas vaginalis PCR NOT DETECTED (Not Detect)
== END 2024-03-07 16:11 | disposition home or self-care (01) ==
LOC: HO.HHCLNP 16:10
PROVIDERS: Visit Provider Nurse Practitioner Primary Care
DX: N89.8 Other specified noninflammatory disorders of vagina (principal)
CPT/HCPCS: 0352U; 81001

== ENCOUNTER → 2024-03-13 12:45 | Outpatient (BNVA) | payer MEDICAID, SELFPAY | PROVIDERS: PCP Nurse Practitioner Primary Care; Visit Provider Nurse Practitioner | DX: Z13.89 Encounter for screening for other disorder (principal) ==

== ENCOUNTER 2024-03-24 14:23 | Outpatient (AMB) | payer MEDICAID, SELFPAY ==
--- NOTE | 2024-03-24 14:19 | A.OFFVIS_ITS ---
Vital Signs 03/24/24 14:25 Height 5 ft 3 in Weight 175 lb BMI 31.0 Pulse 65 Pulse Source Pulse Oximeter Pulse Oximetry (%) 97 Oxygen Delivery Method Room Air Intake Visit Reasons: reff c hep c treatment Photographer Still Required: Yes Photographer Still Services: Photographer Still Present Photographer Still Name: Leticia Haddad CMA Information Interpreted: clinical only International Exchange Coordinator: International Exchange Coordinator Present Allergies morphine Adverse Reaction (Verified 03/24/24 14:26) Abdominal Pain HPI HPI reff [facility] hep c treatment: Details: She has been doing well. She has Hepatitis C viral load undetectable on 03/07. She has no Hepatitis C treatment now. [facility] Medical History Neuropathy Somnolence, daytime Flank pain RUQ abdominal pain Left foot pain Bilateral hand pain COVID-19 Hepatitis C Rheumatoid arthritis Flank pain Renal stones Bipolar disorder Panic disorder Depression Anxiety Abdominal distension (gaseous) Asthma Hyperlipidemia Benign neoplasm of pituitary gland and craniopharyngeal duct Mononeuritis HTN (hypertension) Diabetes mellitus, insulin dependent (IDDM), uncontrolled Obese GERD (gastroesophageal reflux disease) Kidney stone Chronic hepatitis C without hepatic coma Cirrhosis of liver without ascites Surgical History (Updated 02/28/24 @ 12:55 by Shelli García) H/O colonoscopy Hx of lithotripsy History of esophagogastroduodenoscopy (EGD) Hx of cholecystectomy Family History Father No problems noted. Mother Diabetes mellitus Sister Diabetes mellitus Brother No problems noted. Paternal Uncle Colon cancer Social History Household Members: None Housing: Apartment Do you presently have visiting nurse or other home services: Yes Alcohol intake: current Alcohol intake frequency: former alcohol drinker Alcohol type: beer Patient Tobacco Use Status: Current everyday Tobacco user Tobacco use type: Cigarette Cigarettes Per Day: 2 Years Smoked: 15 service: No Review of Systems Const All systems reviewed & are unremarkable except as noted in HPI and below Physical Exam Vital Signs: Last Vital Signs Pulse 65 03/24/24 14:25 Pulse Ox 97 03/24/24 14:25 Oxygen Delivery Method Room Air 03/24/24 14:25 BMI result Body Mass Index 31.0 Const General: cooperative Orientation/consciousness: patient oriented x3 HEENT Head: Yes normal to inspection Mouth: Normal oral and palatal mucosa present Eyes General: appearance normal, both eyes and all related structures Pupils: Equal, round and reactive pupils present Resp Effort & Inspection: normal respiratory effort Cardio Rate: regular rate Rhythm: regular rhythm GI Palpation (GI): Soft to palpation and nontender General: Yes no CVA tenderness Back/Spine/Pelvis Back: no CVA tenderness Skin General skin exam: no rashes or lesions noted Neuro General: patient oriented x3 Cranial nerves: Yes CN's II-XII intact bilaterally and Yes Equal, round and reactive pupils present Extrem General: Yes normal to inspection Psych Appearance: grossly normal Assessment & Plan Assessment & Plan (1) Hepatitis C: Comment: She has viral load undetectable Code(s): B19.20 - Unspecified viral hepatitis C without hepatic coma Category: Medical Qualifiers: Hepatic coma status: without hepatic coma Viral hepatitis chronicity: chronic Qualified Code(s): B18.2 - Chronic viral hepatitis C Plan: no further treatment Check hepatitis c viral load in six months Orders: Orders Liver Fibrosis Pnl 03/24/24 B18.2 - Chronic viral hepatitis C Prothrombin Time INR 03/24/24 B18.2 - Chronic viral hepatitis C HIV Ab/Ag 03/24/24 B18.2 - Chronic viral hepatitis C Hepatitis C Viral Load 03/24/24 B18.2 - Chronic viral hepatitis C Hepatitis C Genotype 03/24/24 B18.2 - Chronic viral hepatitis C Coding Level of Care Code Est Pt Level 3 (36940) Diagnoses Chronic hepatitis C without hepatic coma B18.2 Hepatic coma status: without hepatic coma Viral hepatitis chronicity: chronic
[2024-03-24 14:25] VITALS: PULSE 65; O2SAT 97; BMI 31.0
--- OUTSIDE RECORDS SUMMARY | 2024-03-24 14:25 | XMS_ITS | Continuity of Care Document ---
Author Organization [facility] Address [address] [place] [id number]- Care Team Providers Care Bronze Chaser Name Role Phone Irene HARTMANN, Wanda Deras Primary Care Physician [phone] Encounter [facility] [place] Date(s): 02/18/24 - 03/19/24 [facility] [address] [place] [id number]- Allergies, Adverse Reactions, Alerts No Known Allergies [...] 11/28/23 13:55:00 EDT, Route to Pharmacy Electronically, [facility], Partial fillupon patient request if [...] opioid drug. Start Date: 01/15/23 Status: Ordered gabapentin 300 mg oral capsule TAKE 1 CAPSULE BY MOUTH TWICE DAILY IN THE MORNING AND IN THE EVENING and TAKE 2 CAPSULES EVERY DAYAT BEDTIME Start Date: 03/12/24 Status: Ordered Humalog 100 u/ml subcutaneous injection [...] EVERY MORNING Start Date: 04/11/23 Status: Ordered lisinopril 40 mg oral tablet TAKE 1 TABLET BY MOUTH EVERY EVENING Start Date: 03/12/24 Status: Ordered naproxen 250 mg oral tablet [...] Outreach Member Role: PCP Address: Address: [address] [facility], [place] [address]- Care Team Related Persons Name: NICHO MART Address: home [address] [place] [address] Name: DASIA MART Name: JEREMY CEDILLO Address: home [address] [address]
== END 2024-03-24 15:22 | disposition home or self-care (01) ==
LOC: HO.HID 14:23
PROVIDERS: PCP Nurse Practitioner Primary Care; Visit Provider Internal Medicine
DX: B18.2 Chronic viral hepatitis C (principal)
CPT/HCPCS: 99213

== ENCOUNTER 2024-03-24 14:23 | Outpatient (REF) | payer MEDICAID, SELFPAY ==
[2024-03-24 15:55] LABS: Prothrombin Time 12.1 SEC (11.1-13.3)
[2024-03-25 04:59] LABS: HIV AB/AG Nonreactive (Nonreactive); HIV Num 1 0.09 S/CO (0.00-0.99)
[2024-03-25 15:23] LABS: HCV Log PCR 6.21 Log IU/mL (NOT DETECTED); HepC Viral Load 1620000 IU/mL (NOT DETECTED)
[2024-03-28 10:44] LABS: Hepatitis C Genotype 1a
[2024-04-01 16:43] LABS: FIB-ALT 46 U/L (6-29); FIB-Alpha-2-Macroglobulin 246 mg/dL (106-279); FIB-Apolipoprotein A1 171 mg/dL (101-198); FIB-GGT 83 U/L (3-65); FIB-Haptoglobin <8 mg/dL (43-212); FIB-Total Bilirubin 0.4 mg/dL (0.2-1.2); Liver Fibrosis Score 0.69; Liver Fibrosis Stage F3; Nec Inflam Act Grade A1-A2; Nec Inflam Act Score 0.39
== END 2024-03-24 14:24 | disposition home or self-care (01) ==
LOC: HO.LAB 14:23
PROVIDERS: PCP Nurse Practitioner Primary Care; Visit Provider Internal Medicine
DX: B18.2 Chronic viral hepatitis C (principal)
CPT/HCPCS: 36415; 81596; 85610; 87389; 87522; 87902; 99212

== ENCOUNTER 2024-04-01 10:26 | Outpatient (REF) | payer MEDICAID, SELFPAY ==
--- NOTE | ~2024-04-01 | US_ITS ---
EXAMINATION: US PELVIS CLINICAL INFORMATION: Pelvic pain. COMPARISON: CT abdomen and pelvis 01/09/2024. TECHNIQUE: Ultrasound of the pelvis is performed using both transabdominal and transvaginal transducers along with Doppler. Transvaginal imaging is performed due to inadequate visualization transabdominally. FINDINGS: Uterus: The uterus is anteverted and measures 6.6 x 2.6 x 3.2 cm. The double wall endometrial thickness is 4 mm. The uterus is smooth in contour and has normal myometrial echogenicity. No visible fibroid. Adnexa: Both ovaries are visualized. There is normal color flow to the adnexa. There is no ovarian torsion. There is no pelvic ascites or fluid collection. Right ovary measures 2.2 x 1.3 x 2.1 cm for a volume of 3.1 mL. There is an isoechoic mass present measuring 1.9 x 1.2 x 1.7 cm with some areas of shadowing, possibly a dermoid. Left ovary measures 2.1 x 1.5 x 1.2 cm for a volume of 2.0 mL. US/US pelvic and transvaginal IMPRESSION: 1. Normal-appearing uterus and left ovary. 2. Right ovarian mass with some areas of shadowing, possibly a dermoid. Pelvic MRI is recommended for further evaluation. Electronically signed by: Elgin Arevalo MD 04/03/2024 09:57 PM EDT
== END 2024-04-01 10:27 | disposition home or self-care (01) ==
LOC: HO.NEURO 10:26
PROVIDERS: PCP Nurse Practitioner Primary Care; Visit Provider Nurse Practitioner Primary Care
DX: R10.2 Pelvic and perineal pain (principal)
CPT/HCPCS: 76830; 76856

== ENCOUNTER 2024-04-22 17:41 | Outpatient (REF) | payer MEDICAID, SELFPAY | END 2024-04-22 17:42 | disposition home or self-care (01) | LOC: HO.HHCLNP 17:41 | PROVIDERS: Visit Provider Nurse Practitioner Primary Care | DX: R39.9 Unspecified symptoms and signs involving the genitourinary system (principal) | CPT/HCPCS: 87086 ==

== ENCOUNTER 2024-05-01 12:36 | Outpatient (REF) | payer MEDICAID, SELFPAY ==
--- NOTE | 2024-05-01 12:41 | EMG_ITS ---
Chief complaint: Bilateral hand pain and numbness History of poorly-controlled diabetes with neuropathy Reason for referral: Evaluate for Carpal Tunnel Syndrome Referred by: Wanda Bonilla NP Procedure done: Bilateral upper extremities NCS/EMG Precautions and/or limitations: None The limb temperature was monitored continuously and remained between 32-36 degrees C during the performance of the NCS. Nerve Conduction Studies Anti Sensory Summary Table ?Stim Site NR Onset (ms) Norm Onset (ms) Peak (ms) Norm Peak (ms) O-P Amp (?V) Norm O-P Amp Site1 Site2 Delta-0 (ms) Dist (cm) Brian (m/s) Norm Brian (m/s) Left Median Anti Sensory (2nd Digit) Wrist ? 3.9 4.7 <3.6 10.0 >10 Wrist 2nd Digit 3.9 14.0 36 Right Median Anti Sensory (2nd Digit) Wrist ? 4.6 5.2 <3.6 4.1 >10 Wrist 2nd Digit 4.6 14.0 30 Left Radial Anti Sensory (Thumb) Forearm NR <3.1 Forearm Thumb 0.0 Right Radial Anti Sensory (Thumb) Forearm NR <3.1 Forearm Thumb 0.0 Left Ulnar Anti Sensory (5th Digit) Wrist ? 2.3 3.1 <3.7 24.9 >15.0 Wrist 5th Digit 2.3 14.0 61 Right Ulnar Anti Sensory (5th Digit) Wrist ? 2.2 3.1 <3.7 17.3 >15.0 Wrist 5th Digit 2.2 14.0 64 Motor Summary Table ?Stim Site NR Onset (ms) Norm Onset (ms) O-P Amp (mV) Norm O-P Amp iAmp (mV) Amp (1st) (%) Site1 Site2 Delta-0 (ms) Dist (cm) Brian (m/s) Norm Brian (m/s) Left Median Motor (Abd Poll Brev) Wrist ? 5.1 <3.9 9.3 >4.5 11.3 100.0 Elbow Wrist 3.8 18.0 47 >45 Elbow ? 8.9 7.1 9.2 76.3 Right Median Motor (Abd Poll Brev) Wrist ? 5.4 <3.9 7.9 >4.5 10.0 100.0 Elbow Wrist 4.1 20.0 49 >45 Elbow ? 9.5 7.2 9.0 91.1 Left Radial Motor (Arm) Wrist ? 13.8 <2.5 0.0 >1.7 0.0 100.0 Wrist Arm 13.8 0.0 Left Ulnar Motor (Abd Dig Minimi) Wrist ? 3.0 <3.0 9.2 >5 11.7 100.0 B Elbow Wrist 2.9 16.0 55 >45 B Elbow ? 5.9 9.1 11.7 98.9 A Elbow B Elbow 2.0 10.0 50 >45 A Elbow ? 7.9 8.4 11.1 91.3 Right Ulnar Motor (Abd Dig Minimi) Wrist ? 2.9 <3.0 9.5 >5 11.7 100.0 B Elbow Wrist 3.0 17.0 57 >45 B Elbow ? 5.9 9.4 11.8 98.9 A Elbow B Elbow 1.9 10.0 53 >45 A Elbow ? 7.8 9.2 11.5 96.8 EMG ?Side Muscle Nerve Root Ins Act Fibs Psw Amp Dur Poly Recrt Int Pat Comment Right 1stDorInt Ulnar C8-T1 Nml Nml Nml Nml Nml 0 Nml Complete Right FlexCarRad Median C6-7 Nml Nml Nml Nml Nml 0 Nml Complete Right Biceps Musculocut C5-6 Nml Nml Nml Nml Nml 0 Nml Complete Right Triceps Radial C6-7-8 Nml Nml Nml Nml Nml 0 Nml Complete Right Deltoid Axillary C5-6 Nml Nml Nml Nml Nml 0 Nml Complete Left 1stDorInt Ulnar C8-T1 Nml Nml Nml Nml Nml 0 Nml Complete Left FlexCarRad Median C6-7 Nml Nml Nml Nml Nml 0 Nml Complete Left Biceps Musculocut C5-6 Nml Nml Nml Nml Nml 0 Nml Complete Left Triceps Radial C6-7-8 Nml Nml Nml Nml Nml 0 Nml Complete Left Deltoid Axillary C5-6 Nml Nml Nml Nml Nml 0 Nml Complete FINDINGS: Bilateral median motor nerves showed prolonged distal latency, normal amplitude and normal conduction velocity. Right median sensory nerve showed prolonged peak latency and small amplitude. Left median sensory nerve showed prolonged peak latency. Bilateral radial sensory nerves no response. All other nerves tested were within normal. Concentric needle EMG was performed in selected muscles of the bilateral upper extremities. Study did not reveal signs of electric abnormalities as shown in the table above. IMPRESSION: 1. This is an abnormal study. 2. There is electrodiagnostic evidence for bilateral moderate-severe median neuropathy at the wrist, consistent with carpal tunnel syndrome. 3. There is no electrodiagnostic evidence for ulnar neuropathy, brachial plexopathy, or cervical radiculopathy. 4. Absent radial sensory nerves could be consistent with underlying diabetic polyneuropathy. CLINICAL COMMENT: Known diabetic neuropathy per patient. Can send patient for bilateral lower extremity EMG for confirmation. Thank you for your kind referral. Carina Morgan MD, ADITI Board Certified, [place] [employer] and [employer] (ABPMR) Board Certified, [place] Board of Electro[employer]ostic Medicine (ABEM) CODIN 30677 x 2 MTDD
== END 2024-05-01 12:37 | disposition home or self-care (01) ==
LOC: HO.NEURO 12:36
PROVIDERS: PCP Nurse Practitioner Primary Care; Visit Provider Nurse Practitioner Primary Care
DX: M79.641 Pain in right hand (principal); M79.642 Pain in left hand
CPT/HCPCS: 95886; 95911

== ENCOUNTER → 2024-05-01 12:41 | Outpatient (BNV) | payer MEDICAID, SELFPAY | PROVIDERS: PCP Nurse Practitioner Primary Care; Visit Provider Physical Medicine & Rehabilitation | DX: G56.03 Carpal tunnel syndrome, bilateral upper limbs (principal) | CPT/HCPCS: 95886; 95912 ==

== ENCOUNTER 2024-05-13 10:49 | Outpatient (REF) | payer MEDICAID, SELFPAY | END 2024-05-13 10:50 | disposition home or self-care (01) | LOC: HO.MRI 10:49 | PROVIDERS: PCP Nurse Practitioner Primary Care; Visit Provider Nurse Practitioner Primary Care | DX: Z13.89 Encounter for screening for other disorder (principal) ==

== ENCOUNTER 2024-05-20 09:27 | Emergency (ER) | payer MEDICAID, SELFPAY ==
--- NOTE | ~2024-05-20 | US_ITS ---
STUDY: Pelvic ultrasound with color Doppler and spectral waveform analysis INDICATION: Rule out torsion TECHNIQUE: Transabdominal and transvaginal technique was employed. Permanent documented images obtained. FINDINGS: Uterus is anteverted measuring 6.6 x 2.5 x 4.1 cm. Endometrium measures 0.2 cm. There is limited evaluation of the right ovary/adnexa due to dirty shadowing. Right ovary measures 2.4 x 1.8 x 2.7 cm for volume of 6.1 mm. Previous measurement was 2.2 x 1.3 x 1.2 cm. On previous study, right ovarian dermoid was questioned and MRI follow-up recommended. Finding not reproduced on today's limited study. Venous and arterial flow documented in the right adnexa but it is not entirely clear if right adnexal arterial flow is within or adjacent to the right ovary due to study limitations. Left ovary measures 2.1 x 1.3 x 1.6 cm for volume of 0.3 mL. Left ovary seen transabdominally only. Previous measurement was 2.15 x 1.2 cm. Left venous flow seen. Arterial flow to the left ovary not documented. No free fluid seen. US/US pelvic and transvaginal IMPRESSION: 1. Limited study due to dirty shadowing. 2. Consider MRI and/or short term follow-up ultrasound. Electronically signed by: Nancy Burt MD 05/20/2024 01:15 PM EDT
--- NOTE | ~2024-05-20 | US_ITS ---
STUDY: Pelvic ultrasound with color Doppler and spectral waveform analysis INDICATION: Rule out torsion TECHNIQUE: Transabdominal and transvaginal technique was employed. Permanent documented images obtained. FINDINGS: Uterus is anteverted measuring 6.6 x 2.5 x 4.1 cm. Endometrium measures 0.2 cm. There is limited evaluation of the right ovary/adnexa due to dirty shadowing. Right ovary measures 2.4 x 1.8 x 2.7 cm for volume of 6.1 mm. Previous measurement was 2.2 x 1.3 x 1.2 cm. On previous study, right ovarian dermoid was questioned and MRI follow-up recommended. Finding not reproduced on today's limited study. Venous and arterial flow documented in the right adnexa but it is not entirely clear if right adnexal arterial flow is within or adjacent to the right ovary due to study limitations. Left ovary measures 2.1 x 1.3 x 1.6 cm for volume of 0.3 mL. Left ovary seen transabdominally only. Previous measurement was 2.15 x 1.2 cm. Left venous flow seen. Arterial flow to the left ovary not documented. No free fluid seen. US/US pelvic ovarian doppler IMPRESSION: 1. Limited study due to dirty shadowing. 2. Consider MRI and/or short term follow-up ultrasound. Electronically signed by: Nancy Burt MD 05/20/2024 01:15 PM EDT
--- NOTE | ~2024-05-20 | CT_ITS ---
EXAMINATION: CT ABDOMEN AND PELVIS WITHOUT IV CONTRAST CLINICAL INFORMATION: Right-sided pain, questionable stone COMPARISON: CT abdomen/pelvis January 09, 2024 TECHNIQUE: Multiple axial images were obtained from the superior aspect of the liver through the pubic symphysis without intravenous contrast. Images were evaluated on independent dedicated 3-D workstation and 3-D images were reconstructed with concurrent radiologist supervision and subsequently interpreted. Oral contrast was not administered. This CT examination was performed using dose optimization techniques as appropriate, variously including the following: *Automated exposure control *Adjustment of mA and/or kV according to patient size (this includes techniques or standardized protocols for targeted exams where dose is matched to indication/reason for exam; i.e. extremities or head) *Use of iterative reconstruction technique DLP: 517 mGy-cm FINDINGS: LUNG BASES: The visualized lung bases are clear. CARDIOMEDIASTINUM: The visualized heart is normal in size without pericardial effusion. No coronary artery calcification. LIVER: Nodular in contour. Homogeneous in attenuation. Enlarged in size measuring 19 cm in the midclavicular line. GALLBLADDER: Absent BILIARY SYSTEM: No intrahepatic or extrahepatic biliary dilation. PANCREAS: Homogeneous in attenuation. SPLEEN: Normal in size. GENITOURINARY: No contour deforming masses. No perinephric fluid collection. Left lower pole 3 mm nonobstructing renal calculus. No hydroureteronephrosis. ADRENAL GLANDS: Unremarkable. REPRODUCTIVE: Uterus and and bilateral adnexa are unremarkable. GASTROINTESTINAL: The visualized alimentary tract is normal in course. No evidence of obstruction. APPENDIX: The appendix is not visualized; however, no pericecal inflammatory changes are seen in the right lower quadrant. PERITONEUM: No pneumoperitoneum. No intra-abdominal fluid collection. VASCULATURE: No abdominal aortic aneurysm. LYMPH NODES: No pathologically enlarged abdominal or pelvic lymph nodes. SOFT TISSUES/MUSCULOSKELETAL: There is no acute fracture or significant focal osseous lesion. CT/CT abdomen pelvis wo IV con IMPRESSION: Left lower pole 3 mm nonobstructing renal calculus. Fleischner guidelines were followed. Electronically signed by: Soren Presley DO 05/20/2024 01:30 PM EDT
[2024-05-20 09:48] VITALS: BP 143/62; PULSE 62; RESP 16; TEMP 35.9; O2SAT 94; BMI 26.6
[2024-05-20 10:13] LABS: MANUAL DIFF FLAG NO
[2024-05-20 10:17] LABS: Appearance Urine Cloudy; Color Urine Yellow; Glucose Urine UA Negative (Negative); Leukocyte Esterase Urine Small (1+) (Negative); Nitrite Urine Negative (Negative); UMIC TRIGGER UACC YES; Urine Blood Negative (Negative); Urine Ketones Trace mg/dL (Negative); Urine Protein Trace mg/dL (Neg-Trace)
[2024-05-20 10:23] LABS: Bacteria Urine 4+ (None Seen); Hyaline Casts Urine 0-2 /LPF (0-2); RBC Urine 0-2 /HPF (0-2); Squamous Epithelial Cell Urine >20 /HPF (0-2); UACC Culture Trigger YES
[2024-05-20 10:30] LABS: Basophils Percent Auto 0.3 % (0-2); Eosinophils Absolute Auto 0.1 X10*3/uL (0.0-0.4); Eosinophils Percent Auto 2.3 % (0-4); Hematocrit 35.4 % (37.0-47.0); Hemoglobin 11.9 g/dl (12.0-16.0); Imm Gran Abs Auto 0.01 X10*3/uL (0.00-0.03); Imm Gran Pct Auto 0.3 % (0.0-0.4); Lymphocytes Absolute Auto 1.2 X10*3/uL (1.2-4.9); Lymphocytes Percent Auto 30.4 % (20-40); Mean Corpuscular HGB Conc 33.6 g/dl (31.0-35.0); Mean Corpuscular Hemoglobin 28.4 pg (27.0-33.0); Mean Corpuscular Volume 84.5 fL (80.0-98.0); Mean Platelet Volume 10.1 fL (9.4-12.3); Monocytes Absolute Auto 0.5 X10*3/uL (0.1-1.2); Monocytes Percent Auto 13.3 % (2-11); Neutrophils Absolute Auto 2.1 x10*3/uL (2.0-8.3); Neutrophils Percent Auto 53.4 % (45-73); Platelet Count 101 X10*3/uL (160-400); Red Blood Count 4.19 X10*6/uL (4.20-5.50); Red Cell Distribution Width 13.4 % (11.0-16.0)
[2024-05-20 10:34] LABS: Alanine Aminotransferase 56 U/L (0-31); Albumin Level 3.9 g/dL (3.5-5.0); Alkaline Phosphatase 134 U/L (39-117); Anion Gap 10 (12-20); Aspartate Amino Transferase 44 U/L (5-31); Bilirubin Total 0.4 mg/dL (0.0-1.0); Blood Urea Nitrogen 12 mg/dL (9-16); Calcium 9.8 mg/dL (8.4-10.2); Carbon Dioxide 27 mmol/L (22-29); Chloride 109 mmol/L (96-108); Creatinine Clr Calc Pharmacy 58.8; Estimated Glomerular Filt Rate > 60; Glucose Random 171 mg/dL (60-115); Potassium 3.9 mmol/L (3.3-5.1); Sodium 142 mmol/L (135-145); Total Protein 7.3 g/dL (6.5-8.0)
--- OUTSIDE RECORDS SUMMARY | 2024-05-20 11:02 | XMS_ITS | Continuity of Care Document ---
Author Organization [facility] Address [address] [place] [address]- Care Team Providers Care Ladle Pourer Name Role Phone Irene HARTMANN, Wanda Deras Primary Care Physician [phone] Encounter [facility] [place] Date(s): 03/19/24 - 04/18/24 [facility] [address] [place] [id number]- Allergies, Adverse Reactions, Alerts No Known Allergies [...] 11/28/23 13:55:00 EDT, Route to Pharmacy Electronically, [facility], Partial fillupon patient request if the [...] Team Personnel Name: Wanda Bonilla NP Position: [facility] Outreach Member Role: PCP Address: Address: [address] [facility], [place] [address]- Care Team Related Persons Name: NICHO MART Address: [address] [place] [address] Name: DASIA MART Name: JEREMY CEDILLO Address: home [address] [address]
--- NOTE | 2024-05-20 11:11 | ED_ITS ---
HPI - General Adult General Chief complaint: General Medical Stated complaint: Back pain, pain upon urination Time Seen by Provider: 05/20/24 11:04 Source: patient Mode of arrival: ambulatory Limitations: no limitations History of Present Illness HPI narrative: THIS IS 59 YEARS OLD FEMALE PRESENTED TO THE EMERGENCY DEPARTMENT WITH A CHIEF COMPLAINT OF ABDOMINAL PAIN SHE HAS BEEN HAVING ABDOMINAL PAIN FOR WEEKS SHE WAS DIAGNOSED WITH OVARIASN MASS, SHE DENIES ANY FEVER CHILLS VOMITING OR DIARRHEA SHE HAS MULTIPLE COMORBIDITY INCLUDING DIABETES, HYPERTENSION, CAD, CHRONIC HEP C Onset (ago): week(s) Location: abdomen Radiation: non-radiation Severity: moderate Quality: burning Pain Consistency: constant Relieving factors: none Exacerbating factors: none Related Data Home Medications ?Medication ?Instructions ?Recorded ?Confirmed gabapentin 300 mg capsule 300 mg PO BID 07/28/20 01/17/24 cholecalciferol (vitamin D3) 25 25 mcg PO QAM 10/12/22 01/17/24 mcg (1,000 unit) capsule (Vitamin D3) insulin lispro 100 unit/mL 20 unit subcut TID 10/12/22 01/17/24 subcutaneous pen lidocaine 5 % topical patch 2 patch topical DAILY PRN Pain 10/12/22 01/17/24 pen needle, diabetic 31 gauge x #1,200 ea 10/12/22 01/17/2412/12 (UltiCare Pen Needle) pioglitazone 15 mg tablet 15 mg PO QAM 10/12/22 01/17/24 quetiapine 25 mg tablet 25 mg PO BID PRN Sleep 05/05/23 01/17/24 albuterol sulfate 2.5 mg/3 mL 2.5 mg inhalation Q4H PRN sob 09/10/23 01/17/24 (0.083 %) solution for nebulization aspirin 81 mg tablet,delayed 81 mg PO QPM 09/24/23 01/17/24 release semaglutide 0.25 mg or 0.5 mg (2 0.5 mg subcut MO 09/24/23 01/17/24 mg/3 mL) subcutaneous pen injector (Ozempic) amlodipine 10 mg tablet 10 mg PO QAM 11/12/23 01/17/24 insulin glargine 100 unit/mL (3 60 unit subcut BEDTIME 11/12/23 01/17/24 mL) subcutaneous pen (Lantus Solostar U-100 Insulin) lisinopril 40 mg tablet 40 mg PO QPM 11/12/23 01/17/24 quetiapine 100 mg tablet 150 mg PO BEDTIME 11/12/23 01/17/24 ropinirole 0.5 mg tablet 0.5 mg PO BEDTIME 11/12/23 01/17/24 rosuvastatin 5 mg tablet 5 mg PO BEDTIME 11/12/23 01/17/24 famotidine 20 mg tablet 20 mg PO TID 11/13/23 01/17/24 fluticasone propionate 110 1 puff inhalation Q12H 11/13/23 01/17/24 mcg/actuation HFA aerosol inhaler mometasone 100 mcg/actuation HFA 2 puff inhalation Q12H PRN sob 11/13/23 01/17/24 aerosol inhaler (Asmanex HFA) sennosides 8.6 mg-docusate sodium 2 cap PO BEDTIME PRN Constipation 11/13/23 01/17/24 50 mg capsule (Senna Plus) trazodone 150 mg tablet 150 mg PO BEDTIME PRN Sleep 11/13/23 01/17/24 carvedilol 6.25 mg tablet 6.25 mg PO 12/21/23 01/17/24 Previous Rx's ?Medication ?Instructions ?Recorded esomeprazole magnesium 20 mg 20 mg PO BID 30 days #60 caps 10/26/22 capsule,delayed release pyridoxine (vitamin B6) 100 mg 100 mg PO QAM #90 tabs 12/31/23 tablet bisacodyl 5 mg tablet,delayed 10 mg (2 x 5 mg) PO ONCE Colon 02/07/24 release (Dulcolax (bisacodyl)) prep 2 days #4 tabs polyethylene glycol 3350 17 17 g PO DAILY 1 day #238 grams 02/07/24 gram/dose oral powder (Miralax) oxycodone 5 mg capsule 5 mg PO Q8H PRN pain #12 caps 05/20/24 Allergies Allergy/AdvReac Type Severity Reaction Status Date / Time morphine AdvReac Abdominal Verified 05/20/24 09:53 Pain Review of Systems 2 Constitutional: Constitutional: Reports no additional constitutional complaints Cardiovascular: Cardiovascular: Reports no additional cardiovascular complaints Neurologic: Reports system reviewed and no additional complaints, except as documented PMFSH Past Medical History Source: unable to obtain Medical History Neuropathy Somnolence, daytime Flank pain RUQ abdominal pain Left foot pain Bilateral hand pain COVID-19 Hepatitis C Rheumatoid arthritis Flank pain Renal stones Bipolar disorder Panic disorder Depression Anxiety Abdominal distension (gaseous) Asthma Hyperlipidemia 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 Mother Diabetes mellitus Sister Diabetes mellitus Brother No problems noted. Paternal Uncle Colon cancer Social History Social History Household Members: None Housing: Apartment Do you presently have visiting nurse or other home services: Yes Alcohol intake: current Alcohol intake frequency: former alcohol drinker Alcohol type: beer Patient Tobacco Use Status: Current everyday Tobacco user Tobacco use type: Cigarette Cigarettes Per Day: 2 Years Smoked: 15 Smoked in Last 30 Days: No Advance Directives: No Advance Directives Information Provided: Yes Do you have a plan to hurt others: No Plan Patient : No service: No Physical Exam ED Vital Signs: Vital Signs - 24 hr 05/20/24 09:48 05/20/24 14:00 Temperature 96.6 F L 98.7 F Pulse Rate 62 64 Respiratory Rate 16 15 Blood Pressure 143/62 H 137/69 Pulse Oximetry 94 92 Oxygen Delivery Method Room Air Room Air BMI result Body Mass Index 26.6 SHE IS NOT TOXIC-APPEARING SHE LOOKS WELL Const General: cooperative and well developed Nutritional Appearance: well nourished Orientation/consciousness: patient oriented x3 HENMT Head: Yes normal to inspection General nose exam: Normal external nose present Face and sinus: Yes normal facial exam Mouth: Normal oral and palatal mucosa present Throat: Yes posterior oropharynx normal Neck Neck: Yes normal visual inspection and Yes full ROM Chest Chest palpation & inspection: normal inspection of the chest Resp Effort & Inspection: normal respiratory effort Cardio Jugular venous distension: no JVD Palpation: normal PMI Rate: regular rate GI Other: SOFT NO PERITONEAL SIGN NO GUARDING NO REBOUND Palpation (GI): Soft to palpation Skin General skin exam: no rashes or lesions noted Neuro General: patient oriented x3 Course Reevaluation(s) Reevaluation #1: Patient remain stable normotensive afebrile, a pelvic ultrasound the day showed right ovary 2 x 1.8 x 2.7 cm appear to be flow documented, in the radiology today the finding from prior ultrasound not reproduced on today study. CT scan of the abdomen and pelvis showed no inflammatory changes in the right lower quadrant the appendix is not visualized (but she has a normal white count she is afebrile and no inflammation in the right lower quadrant) It is interesting that by CT the bilateral adnexa are unremarkable. At this point I think the patient can be safely discharged home follow-up with the primary care physician Time: 14:18 Medications Administered Discontinued Medications Generic Name Dose Route Start Last Admin Trade Name Freq PRN Reason Stop Dose Admin Acetaminophen 975 mg 05/20/24 11:14 05/20/24 12:24 Acetaminophen 325 Mg Tablet PO 05/20/24 11:15 Not Given ONCE ONE Medical Decision Making Medical Decision Making [facility] Narrative: PATIENT PRESENTED WITH ABDOMINAL PAIN WILL OBTAIN LABS UA IMAGING Differential Diagnosis Differential Diagnoses: The differential diagnosis associated with the presentation includes OVARIAN TORSION/KIDNEY STONE/SMALL BOWEL OBSTRUCTION Lab Data [facility] Lab Attestation statement: I reviewed the patient's lab results. 05/20/24 10:09 05/20/24 10:09 Labs: Lab Results 05/20/24 Range/Units 10:09 WBC 4.0 L (4.8-10.8) X10*3/uL RBC 4.19 L (4.20-5.50) X10*6/uL Hgb 11.9 L (12.0-16.0) g/dl Hct 35.4 L (37.0-47.0) % MCV 84.5 (80.0-98.0) fL MCH 28.4 (27.0-33.0) pg MCHC 33.6 (31.0-35.0) g/dl RDW 13.4 (11.0-16.0) % Plt Count 101 L (160-400) X10*3/uL MPV 10.1 (9.4-12.3) fL Immature Gran % (Auto) 0.3 (0.0-0.4) % Neut % (Auto) 53.4 (45-73) % Lymph % (Auto) 30.4 (20-40) % [place] % (Auto) 13.3 H (2-11) % Eos % (Auto) 2.3 (0-4) % Baso % (Auto) 0.3 (0-2) % Lymph # (Auto) 1.2 (1.2-4.9) X10*3/uL [place] # (Auto) 0.5 (0.1-1.2) X10*3/uL Eos # (Auto) 0.1 (0.0-0.4) X10*3/uL Baso # (Auto) 0.0 (0.0-0.2) X10*3/uL Abs Immat Gran (auto) 0.01 (0.00-0.03) X10*3/uL Absolute Neuts (auto) 2.1 (2.0-8.3) x10*3/uL Absolute Nucleated RBC 0.000 (0.0-0.012) X10*3/uL Nucleated RBC % (auto) 0.0 (0.0-0.2) /100WBC Sodium 142 (135-145) mmol/L Potassium 3.9 (3.3-5.1) mmol/L Chloride 109 H (96-108) mmol/L Carbon Dioxide 27 (22-29) mmol/L Anion Gap 10 L (12-20) BUN 12 (9-16) mg/dL Creatinine 0.93 (0.5-1.4) mg/dL Estim Creat Clear Calc 58.8 Estimated GFR > 60 Random Glucose 171 H (60-115) mg/dL Calcium 9.8 (8.4-10.2) mg/dL Total Bilirubin 0.4 (0.0-1.0) mg/dL AST 44 H (5-31) U/L ALT 56 H (0-31) U/L Alkaline Phosphatase 134 H (39-117) U/L Total Protein 7.3 (6.5-8.0) g/dL Albumin 3.9 (3.5-5.0) g/dL Urine Color Yellow Urine Appearance Cloudy Urine pH 6.0 (5.0-9.0) Ur Specific [place] 1.020 (1.005-1.025) Urine Protein Trace (Neg-Trace) mg/dL Urine Glucose (UA) Negative (Negative) mg/dL Urine Ketones Trace (Negative) mg/dL Urine Blood Negative (Negative) Urine Nitrite Negative (Negative) Ur Leukocyte Esterase Small (1+) H (Negative) Urine RBC 0-2 (0-2) /HPF Urine WBC 6-10 H (0-5) /HPF Ur Squamous Epith Cells >20 (0-2) /HPF Urine Bacteria 4+ (None Seen) Hyaline Casts 0-2 (0-2) /LPF Independent Interpretation I performed an independent interpretation of an: Ultrasound and CT Scan Interpretation: No SBO no free air Radiology Impression Discussion of test interpretation with radiology: I have reviewed the radiologist's reading. External Record Review External record reviewed: Inpatient record Prescription Management I considered prescription management with: Pain Medication Discharge Plan Discharge Clinical Impression: Abdominal pain Qualifiers: Abdominal location: right lower quadrant Qualified Code(s): R10.31 - Right lower quadrant pain Patient Disposition: Home, Self-Care Instructions: Abdominal Pain (ED) Prescriptions: New oxycodone 5 mg capsule 5 mg PO Q8H PRN (Reason: pain) Qty: 12 0RF Rx Instructions: Partial Fill upon patient request. No Action pyridoxine (vitamin B6) 100 mg tablet 100 mg PO QAM Qty: 90 3RF bisacodyl [Dulcolax (bisacodyl)] 5 mg tablet,delayed release (DR/EC) 10 mg PO ONCE 2 Days Qty: 4 0RF Rx Instructions: Take 2 tablets at 12 pm daily starting 2 days before colonoscopy appointment polyethylene glycol 3350 [Miralax] 17 gram/dose powder 17 g PO DAILY 1 Days Qty: 238 0RF Rx Instructions: Mix Miralax with 64 oz(8 cups) of Crystal light. Take 2 tablets of Dulcolax qt 12 pm. Wait to have your 1st bowel movement, then begin drinking Miralax. Drink a glass of Miralax every 10-15 minutes until you are finished. You will drink at least another 4 cups of clear liquid of your choice over the next 2 hours. Please drink as many clear liquids as possible You may have clear liquids up to four hours before your procedure quetiapine 25 mg tablet 25 mg PO BID PRN (Reason: Sleep) insulin glargine [Lantus Solostar U-100 Insulin] 100 unit/mL (3 mL) insulin pen 60 unit subcut BEDTIME quetiapine 100 mg tablet 150 mg PO BEDTIME lisinopril 40 mg tablet 40 mg PO QPM amlodipine 10 mg tablet 10 mg PO QAM ropinirole 0.5 mg tablet 0.5 mg PO BEDTIME rosuvastatin 5 mg tablet 5 mg PO BEDTIME famotidine 20 mg tablet 20 mg PO TID Senna Plus 8.6-50 mg capsule 2 cap PO BEDTIME PRN (Reason: Constipation) fluticasone propionate 110 mcg/actuation HFA aerosol inhaler 1 puff INHALATION Q12H Asmanex HFA 100 mcg/actuation HFA aerosol inhaler 2 puff INHALATION Q12H PRN (Reason: sob) trazodone 150 mg Tablet 150 mg PO BEDTIME PRN (Reason: Sleep) gabapentin 300 mg capsule 300 mg PO BID esomeprazole magnesium 20 mg capsule,delayed release(DR/EC) 20 mg PO BID 30 Days Qty: 60 3RF (DME) pen needle, diabetic [UltiCare Pen Needle] 31 gauge x 5/16 needle See Rx Instructions .ROUTE QID Qty: 1200 Rx Instructions: As directed insulin lispro 100 unit/mL insulin pen 20 unit subcut TID lidocaine 5 % adhesive patch,medicated 2 patch topical DAILY PRN (Reason: Pain) pioglitazone 15 mg tablet 15 mg PO QAM cholecalciferol (vitamin D3) [Vitamin D3] 25 mcg (1,000 unit) capsule 25 mcg PO QAM albuterol sulfate 2.5 mg /3 mL (0.083 %) solution for nebulization 2.5 mg inhalation Q4H PRN (Reason: sob) carvedilol 6.25 mg tablet 6.25 mg PO Ozempic 0.25 mg or 0.5 mg (2 mg/3 mL) pen injector 0.5 mg subcut MO aspirin 81 mg tablet,delayed release (DR/EC) 81 mg PO QPM Print Language: Icelandic
--- NOTE | 2024-05-20 11:11 | ED_ITS ---
HPI - General Adult General Chief complaint: General Medical Stated complaint: Back pain, pain upon urination Time Seen by Provider: 05/20/24 11:04 Related Data Home Medications ?Medication ?Instructions ?Recorded ?Confirmed gabapentin 300 mg capsule 300 mg PO BID 07/28/20 01/17/24 cholecalciferol (vitamin D3) 25 25 mcg PO QAM 10/12/22 01/17/24 mcg (1,000 unit) capsule (Vitamin D3) insulin lispro 100 unit/mL 20 unit subcut TID 10/12/22 01/17/24 subcutaneous pen lidocaine 5 % topical patch 2 patch topical DAILY PRN Pain 10/12/22 01/17/24 pen needle, diabetic 31 gauge x #1,200 ea 10/12/22 01/17/2412/12 (UltiCare Pen Needle) pioglitazone 15 mg tablet 15 mg PO QAM 10/12/22 01/17/24 quetiapine 25 mg tablet 25 mg PO BID PRN Sleep 05/05/23 01/17/24 albuterol sulfate 2.5 mg/3 mL 2.5 mg inhalation Q4H PRN sob 09/10/23 01/17/24 (0.083 %) solution for nebulization aspirin 81 mg tablet,delayed 81 mg PO QPM 09/24/23 01/17/24 release semaglutide 0.25 mg or 0.5 mg (2 0.5 mg subcut MO 09/24/23 01/17/24 mg/3 mL) subcutaneous pen injector (Ozempic) amlodipine 10 mg tablet 10 mg PO QAM 11/12/23 01/17/24 insulin glargine 100 unit/mL (3 60 unit subcut BEDTIME 11/12/23 01/17/24 mL) subcutaneous pen (Lantus Solostar U-100 Insulin) lisinopril 40 mg tablet 40 mg PO QPM 11/12/23 01/17/24 quetiapine 100 mg tablet 150 mg PO BEDTIME 11/12/23 01/17/24 ropinirole 0.5 mg tablet 0.5 mg PO BEDTIME 11/12/23 01/17/24 rosuvastatin 5 mg tablet 5 mg PO BEDTIME 11/12/23 01/17/24 famotidine 20 mg tablet 20 mg PO TID 11/13/23 01/17/24 fluticasone propionate 110 1 puff inhalation Q12H 11/13/23 01/17/24 mcg/actuation HFA aerosol inhaler mometasone 100 mcg/actuation HFA 2 puff inhalation Q12H PRN sob 11/13/23 01/17/24 aerosol inhaler (Asmanex HFA) sennosides 8.6 mg-docusate sodium 2 cap PO BEDTIME PRN Constipation 11/13/23 01/17/24 50 mg capsule (Senna Plus) trazodone 150 mg tablet 150 mg PO BEDTIME PRN Sleep 11/13/23 01/17/24 carvedilol 6.25 mg tablet 6.25 mg PO 12/21/23 01/17/24 Previous Rx's ?Medication ?Instructions ?Recorded esomeprazole magnesium 20 mg 20 mg PO BID 30 days #60 caps 10/26/22 capsule,delayed release pyridoxine (vitamin B6) 100 mg 100 mg PO QAM #90 tabs 12/31/23 tablet bisacodyl 5 mg tablet,delayed 10 mg (2 x 5 mg) PO ONCE Colon 02/07/24 release (Dulcolax (bisacodyl)) prep 2 days #4 tabs polyethylene glycol 3350 17 17 g PO DAILY 1 day #238 grams 02/07/24 gram/dose oral powder (Miralax) Allergies Allergy/AdvReac Type Severity Reaction Status Date / Time morphine AdvReac Abdominal Verified 05/20/24 09:53 Pain PMFSH Past Medical History Medical History Neuropathy Somnolence, daytime Flank pain RUQ abdominal pain Left foot pain Bilateral hand pain COVID-19 Hepatitis C Rheumatoid arthritis Flank pain Renal stones Bipolar disorder Panic disorder Depression Anxiety Abdominal distension (gaseous) Asthma Hyperlipidemia 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 Mother Diabetes mellitus Sister Diabetes mellitus Brother No problems noted. Paternal Uncle Colon cancer Social History Social History Household Members: None Housing: Apartment Do you presently have visiting nurse or other home services: Yes Alcohol intake: current Alcohol intake frequency: former alcohol drinker Alcohol type: beer Patient Tobacco Use Status: Current everyday Tobacco user Tobacco use type: Cigarette Cigarettes Per Day: 2 Years Smoked: 15 Advance Directives: No Advance Directives Information Provided: Yes Do you have a plan to hurt others: No Plan service: No Physical Exam ED Vital Signs: Vital Signs - 24 hr 05/20/24 09:48 Temperature 96.6 F L Pulse Rate 62 Respiratory Rate 16 Blood Pressure 143/62 H Pulse Oximetry 94 Oxygen Delivery Method Room Air BMI result Body Mass Index 26.6 Medical Decision Making Lab Data 05/20/24 10:09 05/20/24 10:09 Labs: Lab Results 05/20/24 Range/Units 10:09 WBC 4.0 L (4.8-10.8) X10*3/uL RBC 4.19 L (4.20-5.50) X10*6/uL Hgb 11.9 L (12.0-16.0) g/dl Hct 35.4 L (37.0-47.0) % MCV 84.5 (80.0-98.0) fL MCH 28.4 (27.0-33.0) pg MCHC 33.6 (31.0-35.0) g/dl RDW 13.4 (11.0-16.0) % Plt Count 101 L (160-400) X10*3/uL MPV 10.1 (9.4-12.3) fL Immature Gran % (Auto) 0.3 (0.0-0.4) % Neut % (Auto) 53.4 (45-73) % Lymph % (Auto) 30.4 (20-40) % [place] % (Auto) 13.3 H (2-11) % Eos % (Auto) 2.3 (0-4) % Baso % (Auto) 0.3 (0-2) % Lymph # (Auto) 1.2 (1.2-4.9) X10*3/uL [place] # (Auto) 0.5 (0.1-1.2) X10*3/uL Eos # (Auto) 0.1 (0.0-0.4) X10*3/uL Baso # (Auto) 0.0 (0.0-0.2) X10*3/uL Abs Immat Gran (auto) 0.01 (0.00-0.03) X10*3/uL Absolute Neuts (auto) 2.1 (2.0-8.3) x10*3/uL Absolute Nucleated RBC 0.000 (0.0-0.012) X10*3/uL Nucleated RBC % (auto) 0.0 (0.0-0.2) /100WBC Sodium 142 (135-145) mmol/L Potassium 3.9 (3.3-5.1) mmol/L Chloride 109 H (96-108) mmol/L Carbon Dioxide 27 (22-29) mmol/L Anion Gap 10 L (12-20) BUN 12 (9-16) mg/dL Creatinine 0.93 (0.5-1.4) mg/dL Estim Creat Clear Calc 58.8 Estimated GFR > 60 Random Glucose 171 H (60-115) mg/dL Calcium 9.8 (8.4-10.2) mg/dL Total Bilirubin 0.4 (0.0-1.0) mg/dL AST 44 H (5-31) U/L ALT 56 H (0-31) U/L Alkaline Phosphatase 134 H (39-117) U/L Total Protein 7.3 (6.5-8.0) g/dL Albumin 3.9 (3.5-5.0) g/dL Urine Color Yellow Urine Appearance Cloudy Urine pH 6.0 (5.0-9.0) Ur Specific [place] 1.020 (1.005-1.025) Urine Protein Trace (Neg-Trace) mg/dL Urine Glucose (UA) Negative (Negative) mg/dL Urine Ketones Trace (Negative) mg/dL Urine Blood Negative (Negative) Urine Nitrite Negative (Negative) Ur Leukocyte Esterase Small (1+) H (Negative) Urine RBC 0-2 (0-2) /HPF Urine WBC 6-10 H (0-5) /HPF Ur Squamous Epith Cells >20 (0-2) /HPF Urine Bacteria 4+ (None Seen) Hyaline Casts 0-2 (0-2) /LPF Discharge Plan Discharge Prescriptions: No Action pyridoxine (vitamin B6) 100 mg tablet 100 mg PO QAM Qty: 90 3RF bisacodyl [Dulcolax (bisacodyl)] 5 mg tablet,delayed release (DR/EC) 10 mg PO ONCE 2 Days Qty: 4 0RF Rx Instructions: Take 2 tablets at 12 pm daily starting 2 days before colonoscopy appointment polyethylene glycol 3350 [Miralax] 17 gram/dose powder 17 g PO DAILY 1 Days Qty: 238 0RF Rx Instructions: Mix Miralax with 64 oz(8 cups) of Crystal light. Take 2 tablets of Dulcolax qt 12 pm. Wait to have your 1st bowel movement, then begin drinking Miralax. Drink a glass of Miralax every 10-15 minutes until you are finished. You will drink at least another 4 cups of clear liquid of your choice over the next 2 hours. Please drink as many clear liquids as possible You may have clear liquids up to four hours before your procedure quetiapine 25 mg tablet 25 mg PO BID PRN (Reason: Sleep) insulin glargine [Lantus Solostar U-100 Insulin] 100 unit/mL (3 mL) insulin pen 60 unit subcut BEDTIME quetiapine 100 mg tablet 150 mg PO BEDTIME lisinopril 40 mg tablet 40 mg PO QPM amlodipine 10 mg tablet 10 mg PO QAM ropinirole 0.5 mg tablet 0.5 mg PO BEDTIME rosuvastatin 5 mg tablet 5 mg PO BEDTIME famotidine 20 mg tablet 20 mg PO TID Senna Plus 8.6-50 mg capsule 2 cap PO BEDTIME PRN (Reason: Constipation) fluticasone propionate 110 mcg/actuation HFA aerosol inhaler 1 puff INHALATION Q12H Asmanex HFA 100 mcg/actuation HFA aerosol inhaler 2 puff INHALATION Q12H PRN (Reason: sob) trazodone 150 mg Tablet 150 mg PO BEDTIME PRN (Reason: Sleep) gabapentin 300 mg capsule 300 mg PO BID esomeprazole magnesium 20 mg capsule,delayed release(DR/EC) 20 mg PO BID 30 Days Qty: 60 3RF (DME) pen needle, diabetic [UltiCare Pen Needle] 31 gauge x 5/16 needle See Rx Instructions .ROUTE QID Qty: 1200 Rx Instructions: As directed insulin lispro 100 unit/mL insulin pen 20 unit subcut TID lidocaine 5 % adhesive patch,medicated 2 patch topical DAILY PRN (Reason: Pain) pioglitazone 15 mg tablet 15 mg PO QAM cholecalciferol (vitamin D3) [Vitamin D3] 25 mcg (1,000 unit) capsule 25 mcg PO QAM albuterol sulfate 2.5 mg /3 mL (0.083 %) solution for nebulization 2.5 mg inhalation Q4H PRN (Reason: sob) carvedilol 6.25 mg tablet 6.25 mg PO Ozempic 0.25 mg or 0.5 mg (2 mg/3 mL) pen injector 0.5 mg subcut MO aspirin 81 mg tablet,delayed release (DR/EC) 81 mg PO QPM Print Language: Wolof
[2024-05-20 14:00] VITALS: BP 137/69; PULSE 64; RESP 15; TEMP 37.1; O2SAT 92
[2024-05-20 14:39] VITALS: BP 137/69; PULSE 64; RESP 15; TEMP 37.1; O2SAT 92
== END 2024-05-20 14:40 | disposition home or self-care (01) ==
PROVIDERS: Emergency Provider Emergency Medicine; PCP Nurse Practitioner Primary Care
DX: R10.31 Right lower quadrant pain (principal); M54.50 Low back pain, unspecified; R30.0 Dysuria; E11.9 Type 2 diabetes mellitus without complications; R10.2 Pelvic and perineal pain; Z79.4 Long term (current) use of insulin; Z79.899 Other long term (current) drug therapy
CPT/HCPCS: 36415; 74176; 76830; 76856; 80053; 81001; 85025; 87086; 93975; 99284

== ENCOUNTER 2024-06-08 11:23 | Emergency (ER) | payer MEDICAID, SELFPAY ==
--- NOTE | 2024-06-08 11:25 | ECG_ITS ---
Test Reason : ARM PAIN Blood Pressure : / mmHG Vent. Rate : 067 BPM Atrial Rate : 067 BPM P-R Int : 150 ms QRS Dur : 088 ms QT Int : 410 ms P-R-T Axes : 034 -22 141 degrees QTc Int : 433 ms Normal sinus rhythm with sinus arrhythmia Left ventricular hypertrophy with repolarization abnormality ( R in aVL , Marquez product , Romhilt-Putnam ) Cannot rule out Septal infarct , age undetermined Abnormal ECG When compared with ECG of 13-NOV-2023 14:01, Minimal criteria for Septal infarct are now Present Referred By: Generic ED Physician Electronically Signed By:Mamadou Zurita
[2024-06-08 11:26] VITALS: BP 109/71; PULSE 69; RESP 18; TEMP 36.2; O2SAT 99; BMI 30.5
--- NOTE | 2024-06-08 12:08 | ED_ITS ---
HPI - General Adult General Chief complaint: General Medical Stated complaint: cp-l shoulder pain-l face pain Time Seen by Provider: 06/08/24 11:39 Source: patient Mode of arrival: ambulatory Limitations: no limitations History of Present Illness ED Provider: Kriss Deluca APRN HPI narrative: 59 y/o F patient; PMH T2DM, HTN, HLD, hx NSTEMI, PAD, asthma, liver cirrhosis, chronic hepatitis C, cholecystectomy presents to the ER with multiple complaints. Patient reports for the last 4 days she has had pain in her left ear and left jaw which is worsened with chewing. She feels clicking at times. She denies any drainage from the ear. She denies any tinnitus. Denies any injury or trauma. She reports she was seen by her primary care doctor for this pain and was told she did not have an ear infection. She was referred to see ear nose and throat and she has an appointment on Sunday with ENT on [facility] in [place], [place]. She has been taking a antibiotic that she had left over at home. She denies any recent upper respiratory symptoms. No coughing, sneezing, sore throat. No fevers or chills. She has not tried any euvv-kow-bbvbmel medications for this. She also reports some left upper extremity pain which is worsened in the morning. She feels that this pain may be secondary to sleeping on her left side. She denies any injury or trauma. No associated weakness, numbness or tingling of the extremity. She is right-hand dominant. Declined clinical lab assistant Related Data Home Medications ?Medication ?Instructions ?Recorded ?Confirmed gabapentin 300 mg capsule 300 mg PO BID 07/28/20 01/17/24 cholecalciferol (vitamin D3) 25 25 mcg PO QAM 10/12/22 01/17/24 mcg (1,000 unit) capsule (Vitamin D3) insulin lispro 100 unit/mL 20 unit subcut TID 10/12/22 01/17/24 subcutaneous pen lidocaine 5 % topical patch 2 patch topical DAILY PRN Pain 10/12/22 01/17/24 pen needle, diabetic 31 gauge x #1,200 ea 10/12/22 01/17/2416 (UltiCare Pen Needle) pioglitazone 15 mg tablet 15 mg PO QAM 10/12/22 01/17/24 quetiapine 25 mg tablet 25 mg PO BID PRN Sleep 05/05/23 01/17/24 albuterol sulfate 2.5 mg/3 mL 2.5 mg inhalation Q4H PRN sob 09/10/23 01/17/24 (0.083 %) solution for nebulization aspirin 81 mg tablet,delayed 81 mg PO QPM 09/24/23 01/17/24 release semaglutide 0.25 mg or 0.5 mg (2 0.5 mg subcut MO 09/24/23 01/17/24 mg/3 mL) subcutaneous pen injector (Ozempic) amlodipine 10 mg tablet 10 mg PO QAM 11/12/23 01/17/24 insulin glargine 100 unit/mL (3 60 unit subcut BEDTIME 11/12/23 01/17/24 mL) subcutaneous pen (Lantus Solostar U-100 Insulin) lisinopril 40 mg tablet 40 mg PO QPM 11/12/23 01/17/24 quetiapine 100 mg tablet 150 mg PO BEDTIME 11/12/23 01/17/24 ropinirole 0.5 mg tablet 0.5 mg PO BEDTIME 11/12/23 01/17/24 rosuvastatin 5 mg tablet 5 mg PO BEDTIME 11/12/23 01/17/24 famotidine 20 mg tablet 20 mg PO TID 11/13/23 01/17/24 fluticasone propionate 110 1 puff inhalation Q12H 11/13/23 01/17/24 mcg/actuation HFA aerosol inhaler mometasone 100 mcg/actuation HFA 2 puff inhalation Q12H PRN sob 11/13/23 01/17/24 aerosol inhaler (Asmanex HFA) sennosides 8.6 mg-docusate sodium 2 cap PO BEDTIME PRN Constipation 11/13/23 01/17/24 50 mg capsule (Senna Plus) trazodone 150 mg tablet 150 mg PO BEDTIME PRN Sleep 11/13/23 01/17/24 carvedilol 6.25 mg tablet 6.25 mg PO 12/21/23 01/17/24 Previous Rx's ?Medication ?Instructions ?Recorded esomeprazole magnesium 20 mg 20 mg PO BID 30 days #60 caps 10/26/22 capsule,delayed release pyridoxine (vitamin B6) 100 mg 100 mg PO QAM #90 tabs 12/31/23 tablet bisacodyl 5 mg tablet,delayed 10 mg (2 x 5 mg) PO ONCE Colon 02/07/24 release (Dulcolax (bisacodyl)) prep 2 days #4 tabs polyethylene glycol 3350 17 17 g PO DAILY 1 day #238 grams 02/07/24 gram/dose oral powder (Miralax) oxycodone 5 mg capsule 5 mg PO Q8H PRN pain #12 caps 05/20/24 cyclobenzaprine 10 mg tablet 10 mg PO TID PRN muscle spasm #15 06/08/24 tabs loratadine 10 mg tablet (Claritin) 10 mg PO DAILY #30 tabs 06/08/24 naproxen 500 mg tablet 500 mg PO BID PRN pain #14 tabs 06/08/24 Allergies Allergy/AdvReac Type Severity Reaction Status Date / Time morphine AdvReac Abdominal Verified 06/08/24 11:29 Pain Review of Systems Review of Systems: Yes all other systems are reviewed and are negative Constitutional: Constitutional: Reports no additional constitutional complaints, Denies body ache(s), Denies chills, Denies fever(s), Denies headache(s) and Denies weakness Eyes: Eyes: Reports no additional eye complaints and Denies change in vision ENT: Reports system reviewed and no additional complaints, except as documented, Denies dizziness, Denies ear discharge, Reports otalgia, Reports facial pain, Denies headache(s), Denies nasal congestion, Denies nasal discharge, Denies neck pain and Denies tinnitus Cardiovascular: Cardiovascular: Reports no additional cardiovascular complaints, Denies chest pain, Denies leg edema and Denies dyspnea Respiratory: Respiratory: Reports no additional respiratory complaints, Denies cough and Denies dyspnea Gastrointestinal: Gastrointestinal: Reports no additional gastrointestinal complaints, Denies abdominal pain, Denies diarrhea, Denies nausea and Denies vomiting Genitourinary: Genitourinary: Reports no additional female genitourinary complaints and Denies urinary incontinence Musculoskeletal: Musculoskeletal: Reports no additional musculoskeletal complaints, Denies back pain, Reports arthralgias, Denies joint swelling, Denies limited range of motion, Denies neck pain, Denies numbness and Denies tingling Integumentary/Breasts: Skin/Breast: Reports system reviewed and no additional complaints, except as docu and Denies rash Neurologic: Reports system reviewed and no additional complaints, except as documented, Denies Abnormal speech present, Denies dizziness, Denies headache(s), Denies numbness, Denies tingling and Denies weakness PMFSH Past Medical History Attestation statement: The following information was validated with the patient. Source: old records reviewed and nursing notes reviewed Medical History Neuropathy Somnolence, daytime Flank pain RUQ abdominal pain Left foot pain Bilateral hand pain COVID-19 Hepatitis C Rheumatoid arthritis Flank pain Renal stones Bipolar disorder Panic disorder Depression Anxiety Abdominal distension (gaseous) Asthma Hyperlipidemia 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 Mother Diabetes mellitus Sister Diabetes mellitus Brother No problems noted. Paternal Uncle Colon cancer Social History Social History Household Members: None Housing: Apartment Do you presently have visiting nurse or other home services: Yes Alcohol intake: current Alcohol intake frequency: former alcohol drinker Alcohol type: beer Patient Tobacco Use Status: Current everyday Tobacco user Tobacco use type: Cigarette Cigarettes Per Day: 2 Years Smoked: 15 Advance Directives: No Advance Directives Information Provided: Yes service: No Physical Exam ED Vital Signs: Vital Signs - 24 hr 06/08/24 11:26 06/08/24 12:27 06/08/24 12:34 Temperature 97.2 F 97.9 F 97.9 F Pulse Rate 69 67 67 Respiratory Rate 18 20 20 Blood Pressure 109/71 122/61 122/61 Pulse Oximetry 99 95 95 Oxygen Delivery Method Room Air Room Air Room Air BMI result Body Mass Index 30.5 Const General: cooperative, healthy appearing, comfortable and no acute distress Orientation/consciousness: patient oriented x3 Limitations: no limitations HENMT Other: No trismus Head: Yes normal to inspection Ears: hearing grossly normal bilaterally, TM normal on the right, mastoids normal, no periauricular adenopathy and TM abnormal bulging on the left; not erythematous General nose exam: Normal external nose present Face and sinus: Yes normal facial exam Mouth: Normal oral and palatal mucosa present and abnormal TMJ (Discomfort over L TMJ, clicking felt with mastication ) Throat: Yes posterior oropharynx normal Eyes General: appearance normal, both eyes and all related structures Pupils: Equal, round and reactive pupils present Neck Neck: Yes normal visual inspection Chest Chest palpation & inspection: normal inspection of the chest Resp Effort & Inspection: normal respiratory effort Auscultation: clear to auscultation bilaterally Cardio Rate: regular rate Rhythm: regular rhythm Peripheral pulses: Peripheral pulses 2+ throughout GI Inspection: Yes normal to inspection Palpation (GI): Soft to palpation and nontender Auscultation: normal bowel sounds Back/Spine/Pelvis Thoracic/Lumbar Spine: thoracic and lumbar spine normal to inspection Skin General skin exam: no rashes or lesions noted Neuro General: patient oriented x3, no focal motor deficits and normal sensation to monofilament Cranial nerves: Yes Equal, round and reactive pupils present Cognition (Neuro): normal cognition Speech: No Abnormal speech present Gait exam (Neuro): Normal gait present Motor exam (neuro): 5/5 motor strength present throughout Extrem Other: Unable to illicit any tenderness on exam over the LUE. Full active/passive ROM. 2+radial/ulnar pulses. Normal sensation General: Yes normal to inspection, Yes no pedal edema and Yes no calf tenderness Medical Decision Making Medical Decision Making MDM Narrative: 59 yo female here with multiple complaints 1. Left otalgia with jaw pain. Exam is not c/w with AOM, otitis externa, malignant otitis externa or mastoiditis. She does have a small effusion in the ear. She does have tenderness over the TMJ. Will discharge with claritin, NSAID, muscle relaxant. She is seeing ENT in 3 days. 2. Atraumatic LUE pain-vague, unable to illicit pain, patient more focused on her ear and jaw and as I am examining her she states it doesn't even hurt, don't worry about it. CMS is normal. ROM normal. Offered x-ray but declined by patient. She feels it is secondary to laying on the affected side. Will review EKG from triage however this does not sound like an ischemic story. Differential Diagnosis Differential Diagnoses: The differential diagnosis associated with the presentation includes See discussion above Admission/Observation Consideration of admission/observation: Escalation of care including admission/observation considered Low concern for mastoiditis, malignant otitis externa requiring advanced imaging, urgent ENT consultation from the emergency room. Low concern for ACS with with vague symptoms, no exertional quality and an EKG unchanged from baseline Independent Interpretation I performed an independent interpretation of an: EKG Interpretation: I independently reviewed the EKG which shows normal sinus rhythm with a rate of 67, LVH, patient does have some flipped T-waves in leads 1 V5 and V6 which is unchanged from her EKG in October of 2023. Tests considered The following testing was considered but not selected: see course of care Prescription Management I considered prescription management with: Pain Medication Discharge Plan Discharge Clinical Impression: Eustachian tube dysfunction, TMJ (temporomandibular joint disorder) Patient Disposition: Home, Self-Care Instructions: Temporomandibular Disorder (ED), Earache (ED) Additional Instructions: Keep your appointment with your ear nose and throat doctor on Sunday Take the medications as prescribed Follow-up with your primary care for any continued symptoms Prescriptions: New loratadine [Claritin] 10 mg tablet 10 mg PO DAILY Qty: 30 0RF naproxen 500 mg tablet 500 mg PO BID PRN (Reason: pain) Qty: 14 0RF cyclobenzaprine 10 mg tablet 10 mg PO TID PRN (Reason: muscle spasm) Qty: 15 0RF No Action pyridoxine (vitamin B6) 100 mg tablet 100 mg PO QAM Qty: 90 3RF bisacodyl [Dulcolax (bisacodyl)] 5 mg tablet,delayed release (DR/EC) 10 mg PO ONCE 2 Days Qty: 4 0RF Rx Instructions: Take 2 tablets at 12 pm daily starting 2 days before colonoscopy appointment polyethylene glycol 3350 [Miralax] 17 gram/dose powder 17 g PO DAILY 1 Days Qty: 238 0RF Rx Instructions: Mix Miralax with 64 oz(8 cups) of Crystal light. Take 2 tablets of Dulcolax qt 12 pm. Wait to have your 1st bowel movement, then begin drinking Miralax. Drink a glass of Miralax every 10-15 minutes until you are finished. You will drink at least another 4 cups of clear liquid of your choice over the next 2 hours. Please drink as many clear liquids as possible You may have clear liquids up to four hours before your procedure quetiapine 25 mg tablet 25 mg PO BID PRN (Reason: Sleep) insulin glargine [Lantus Solostar U-100 Insulin] 100 unit/mL (3 mL) insulin pen 60 unit subcut BEDTIME quetiapine 100 mg tablet 150 mg PO BEDTIME lisinopril 40 mg tablet 40 mg PO QPM amlodipine 10 mg tablet 10 mg PO QAM ropinirole 0.5 mg tablet 0.5 mg PO BEDTIME rosuvastatin 5 mg tablet 5 mg PO BEDTIME famotidine 20 mg tablet 20 mg PO TID Senna Plus 8.6-50 mg capsule 2 cap PO BEDTIME PRN (Reason: Constipation) fluticasone propionate 110 mcg/actuation HFA aerosol inhaler 1 puff INHALATION Q12H Asmanex HFA 100 mcg/actuation HFA aerosol inhaler 2 puff INHALATION Q12H PRN (Reason: sob) trazodone 150 mg Tablet 150 mg PO BEDTIME PRN (Reason: Sleep) oxycodone 5 mg capsule 5 mg PO Q8H PRN (Reason: pain) Qty: 12 0RF Rx Instructions: Partial Fill upon patient request. gabapentin 300 mg capsule 300 mg PO BID esomeprazole magnesium 20 mg capsule,delayed release(DR/EC) 20 mg PO BID 30 Days Qty: 60 3RF (DME) pen needle, diabetic [UltiCare Pen Needle] 31 gauge x 5/16 needle See Rx Instructions .ROUTE QID Qty: 1200 Rx Instructions: As directed insulin lispro 100 unit/mL insulin pen 20 unit subcut TID lidocaine 5 % adhesive patch,medicated 2 patch topical DAILY PRN (Reason: Pain) pioglitazone 15 mg tablet 15 mg PO QAM cholecalciferol (vitamin D3) [Vitamin D3] 25 mcg (1,000 unit) capsule 25 mcg PO QAM albuterol sulfate 2.5 mg /3 mL (0.083 %) solution for nebulization 2.5 mg inhalation Q4H PRN (Reason: sob) carvedilol 6.25 mg tablet 6.25 mg PO Ozempic 0.25 mg or 0.5 mg (2 mg/3 mL) pen injector 0.5 mg subcut MO aspirin 81 mg tablet,delayed release (DR/EC) 81 mg PO QPM Referrals: Wanda Bonilla, UNIFORM CAP OPERATOR [Primary Care Provider] - 1 week Interventions: ED Discharge Assessment Last Done: 06/08/24 12:34 Discharge Date/Time: 06/08/24 12:34 Print Language: Iranian
[2024-06-08 12:27] VITALS: BP 122/61; PULSE 67; RESP 20; TEMP 36.6; O2SAT 95
[2024-06-08 12:34] VITALS: BP 122/61; PULSE 67; RESP 20; TEMP 36.6; O2SAT 95
== END 2024-06-08 12:34 | disposition home or self-care (01) ==
PROVIDERS: Emergency Provider Emergency Medicine; PCP Nurse Practitioner Primary Care
DX: H68.102 Unspecified obstruction of Eustachian tube, left ear (principal); M26.602 Left temporomandibular joint disorder, unspecified; R07.89 Other chest pain; E11.9 Type 2 diabetes mellitus without complications; I10 Essential (primary) hypertension; Z79.899 Other long term (current) drug therapy
CPT/HCPCS: 93005; 99284

== ENCOUNTER → 2024-06-08 11:25 | Outpatient (BNV) | payer MEDICAID, SELFPAY | PROVIDERS: Emergency Provider Emergency Medicine; PCP Nurse Practitioner Primary Care; Visit Provider Internal Medicine Cardiovascular Disease | DX: I49.8 Other specified cardiac arrhythmias (principal); R94.31 Abnormal electrocardiogram [ECG] [EKG] | CPT/HCPCS: 93010 ==

== ENCOUNTER 2024-06-17 09:46 | Outpatient (AMB) | payer MEDICAID, SELFPAY ==
[2024-06-17 09:50] VITALS: BP 126/80; BMI 30.5
--- NOTE | 2024-06-17 09:50 | MHC.OFFVIS ---
Vital Signs 06/17/24 09:50 Height 5 ft 3 in Weight 171 lb 15.369 oz BMI 30.5 BP 126/80 Intake Visit Reasons: pelvic pain/Referral Health Policy Manager Required: Yes Health Policy Manager Language: Housekeeper Supervisor Services: Health Policy Manager Present (in person) Health Policy Manager Name: Jesi DIEGO Information Interpreted: non-clinical & clinical Electro Mechanical Technician: Electro Mechanical Technician Present (Jesi DIEGO) Accompanied by: Self / Same As Patient Allergies morphine Adverse Reaction (Verified 06/17/24 09:51) Abdominal Pain Post menopausal: Yes HPI Comments Details: Presenting referred from PCP regarding right sided pelvic pain with no associated vaginal bleeding nausea or vomiting or other GI or symptoms. 04/22 pelvic ultrasound showed the following: IMPRESSION: 1. Normal-appearing uterus and left ovary. 2. Right ovarian mass with some areas of shadowing, possibly a dermoid. Pelvic MRI is recommended for further evaluation. 05/22 CT scan of abdomen and pelvis showed the following: IMPRESSION: Left lower pole 3 mm nonobstructing renal calculus. Pelvic viscera portion of the CT scan was unremarkable Last mammogram was in 12/19 was BI-RADS 1 Last co testing? [facility], [facility]–1983 Medical History Neuropathy Somnolence, daytime Flank pain RUQ abdominal pain Left foot pain Bilateral hand pain COVID-19 Hepatitis C Rheumatoid arthritis Flank pain Renal stones Bipolar disorder Panic disorder Depression Anxiety Abdominal distension (gaseous) Asthma Hyperlipidemia 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 Mother Diabetes mellitus Sister Diabetes mellitus Brother No problems noted. Paternal Uncle Colon cancer Social History Household Members: None Housing: Apartment Do you presently have visiting nurse or other home services: Yes Alcohol intake: current Alcohol intake frequency: former alcohol drinker Alcohol type: beer Patient Tobacco Use Status: Current everyday Tobacco user Tobacco use type: Cigarette Cigarettes Per Day: 2 Years Smoked: 15 service: No Review of Systems Const All systems reviewed & are unremarkable except as noted in HPI and below Physical Exam Vital Signs: Last Vital Signs BP 126/80 06/17/24 09:50 BMI result Body Mass Index 30.5 General: Yes no CVA tenderness External Female Exam: normal external appearance and normal appearance of the urethra Speculum Exam - Vagina: normal appearance of the vagina, normal palpation, no lesions and no masses Speculum Exam - Cervix: normal appearance of the cervix, normal palpation, no lesions, no masses and nontender Bimanual exam- vagina & uterus: normal bimanual exam, normal palpation, uterine size normal, normal palpation, uterine shape normal, No Cervical tenderness present and non-tender Bimanual Exam- Adnexa, other: normal adnexae Back/Spine/Pelvis Back: no CVA tenderness Assessment & Plan Assessment & Plan (1) Complex ovarian cyst: Code(s): N83.299 - Other ovarian cyst, unspecified side Category: Medical Plan: Since ultrasound showed the right adnexal complex cyst possible dermoid and CT scan pelvic viscera portion was unremarkable will proceed with MRI of the pelvis with and without contrast. Screening mammogram ordered Instructions given the patient to schedule pelvic MRI in mammogram and follow-up appointment within a week Orders: Orders MM screening mammo BI Today Z12.31 - Encounter for screening mammogram for malignant neoplasm of breast MR pelvis wo/w con Today N83.299 - Other ovarian cyst, unspecified side Coding Level of Care Code New Pt Level 3 (11038) Diagnoses Complex ovarian cyst N83.299
== END 2024-06-17 10:30 | disposition home or self-care (01) ==
LOC: HO.HWS 09:46
PROVIDERS: PCP Nurse Practitioner Primary Care; Visit Provider Obstetrics & Gynecology
DX: N83.299 Other ovarian cyst, unspecified side (principal)
CPT/HCPCS: 99203

== ENCOUNTER 2024-06-17 09:46 | Outpatient (REF) | payer MEDICAID, SELFPAY ==
[2024-06-18 11:19] LABS: HPV 16,18/45 See PAP report
== END 2024-06-17 09:47 | disposition home or self-care (01) ==
LOC: HO.LNP 09:46
PROVIDERS: PCP Nurse Practitioner Primary Care; Visit Provider Obstetrics & Gynecology
DX: N83.299 Other ovarian cyst, unspecified side (principal); R10.2 Pelvic and perineal pain; Z12.4 Encounter for screening for malignant neoplasm of cervix; Z11.51 Encounter for screening for human papillomavirus (HPV)
CPT/HCPCS: 87624; 88175; 99202

== ENCOUNTER 2024-06-20 13:51 | Outpatient (AMB) | payer MEDICAID, SELFPAY ==
--- NOTE | 2024-06-20 12:15 | A.OFFVIS_ITS ---
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 She was treated with Left ESWL last year. She was in the ED on 05/20/24--for abdominal and back pain, ovarian cyst was discussed with the patient at that time as well. Currently she is asymptomatic. 05/20/24--CTAP--report stated Left lower pole 3 mm nonobstructing renal calculus. However in review of imaging --- Review of imaging 05/20/2024--2 stones visualized in the left kidney about 4 mm upper pole and 3 mm lower pole. Discussed treatment options to include repeat ESWL versus ureteroscopy and laser lithotripsy. The patient would like to proceed with repeat ESWL at this time. Review of chart 07/13/23--Telehealth visit - I have reviewed renal and bladder US results, she was passing left kidney stone fragments, discussed left hydronephrosis is resolved, and fragments passed. 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 s/p Left ESWL on 05/02/23 Results: Abdomen USG results reviewed--08/29/2022- Suggestive of nonobstructive left renal calculi and nonobstructive renal calculi largest measuring 0.3 cm. CAT scan results reviewed--01/12/2022- Showed left lower pole stone 1 cm and bilateral punctuate stones. Evaluation today: Urine blood-0 Chris/uL, Leukocyte Esterase-0 Cailin/uL PFSH Medical History Neuropathy Somnolence, daytime Flank pain RUQ abdominal pain Left foot pain Bilateral hand pain COVID-19 Hepatitis C Rheumatoid arthritis Flank pain Renal stones Bipolar disorder Panic disorder Depression Anxiety Abdominal distension (gaseous) Asthma Hyperlipidemia 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 Mother Diabetes mellitus Sister Diabetes mellitus Brother No problems noted. Paternal Uncle Colon cancer Social History Household Members: None Housing: Apartment Do you presently have visiting nurse or other home services: Yes Alcohol intake: current Alcohol intake frequency: former alcohol drinker Alcohol type: beer Patient Tobacco Use Status: Current everyday Tobacco user Tobacco use type: Cigarette Cigarettes Per Day: 2 Years Smoked: 15 service: No Review of Systems Const All systems reviewed & are unremarkable except as noted in HPI and below Reports no additional complaints Eyes Reports no additional complaints ENT Reports no additional complaints Card Reports no additional complaints Resp Reports no additional complaints GI Reports no additional complaints Reports as per HPI Musc Reports no additional complaints Skin/Breast Reports system reviewed and no additional complaints, except as documented Neuro Reports no additional complaints Psych Reports no additional complaints Endo Reports no additional complaints Ayden/Lymph Reports no additional complaints Aller/Immun Reports no additional complaints Office Procedures Post Void Residual Post Residual Void Post Void Residual (PVR): 0 [id number] Void Residual by ultrasound Results Reviewed Results Reviewed: Date of Service: 05/20/24 CT ABDOMEN AND PELVIS WITHOUT IV CONTRAST CLINICAL INFORMATION: Right-sided pain, questionable stone COMPARISON: CT abdomen/pelvis January 09, 2024 TECHNIQUE: Multiple axial images were obtained from the superior aspect of the liver through the pubic symphysis without intravenous contrast. Images were evaluated on independent dedicated 3-D workstation and 3-D images were reconstructed with concurrent radiologist supervision and subsequently interpreted. Oral contrast was not administered. This CT examination was performed using dose optimization techniques as appropriate, variously including the following: *Automated exposure control *Adjustment of mA and/or kV according to patient size (this includes techniques or standardized protocols for targeted exams where dose is matched to indication/reason for exam; i.e. extremities or head) *Use of iterative reconstruction technique DLP: 517 mGy-cm FINDINGS: LUNG BASES: The visualized lung bases are clear. CARDIOMEDIASTINUM: The visualized heart is normal in size without pericardial effusion. No coronary artery calcification. LIVER: Nodular in contour. Homogeneous in attenuation. Enlarged in size measuring 19 cm in the midclavicular line. GALLBLADDER: Absent BILIARY SYSTEM: No intrahepatic or extrahepatic biliary dilation. PANCREAS: Homogeneous in attenuation. SPLEEN: Normal in size. GENITOURINARY: No contour deforming masses. No perinephric fluid collection. Left lower pole 3 mm nonobstructing renal calculus. No hydroureteronephrosis. ADRENAL GLANDS: Unremarkable. REPRODUCTIVE: Uterus and and bilateral adnexa are unremarkable. GASTROINTESTINAL: The visualized alimentary tract is normal in course. No evidence of obstruction. APPENDIX: The appendix is not visualized; however, no pericecal inflammatory changes are seen in the right lower quadrant. PERITONEUM: No pneumoperitoneum. No intra-abdominal fluid collection. VASCULATURE: No abdominal aortic aneurysm. LYMPH NODES: No pathologically enlarged abdominal or pelvic lymph nodes. SOFT TISSUES/MUSCULOSKELETAL: There is no acute fracture or significant focal osseous lesion. IMPRESSION: Left lower pole 3 mm nonobstructing renal calculus. Date of Service: 05/04/23 EXAMINATION: CT ABDOMEN AND PELVIS WITHOUT CONTRAST CLINICAL INFORMATION: Flank pain COMPARISON: CT abdomen pelvis 02/25/2023 FINDINGS: LUNG BASES: The visualized lung bases are unremarkable. LIVER, GALLBLADDER, AND BILIARY TREE: The liver is cirrhotic in appearance with a nodular border and is mildly enlarged. No liver masses or bile duct dilatation. Status post cholecystectomy PANCREAS: Unremarkable. SPLEEN: Spleen is enlarged at 14.9 cm. ADRENAL GLANDS: Unremarkable. KIDNEYS AND URETERS: There is a small left pericapsular hematoma. Multiple small stone fragments are present in the distal left ureter, the largest measuring about 4 mm, and this is associated with ureteral dilatation and left-sided pelvocaliectasis. Additional intrarenal calculi are seen the largest measuring 0.7 cm on the left. Calcification near the right renal pelvis may be vascular. BLADDER: Other than above, unremarkable GASTROINTESTINAL TRACT: The small and large bowel are unremarkable. The appendix is unremarkable. ABDOMINAL WALL: No significant hernia is appreciated. LYMPH NODES: No retroperitoneal lymphadenopathy VASCULAR: Unremarkable. PELVIC VISCERA: The uterus and adnexa are unremarkable. OSSEOUS STRUCTURES: Unremarkable. IMPRESSION: 1. Multiple small stone fragments in the distal left ureter with associated ureteral dilatation and left-sided pelvocaliectasis. There is a small left pericapsular hematoma. Although history of ESWL was not provided, these findings could be secondary to that if that was in fact performed 2. Additional intrarenal calculi are seen on the left. EXAMINATION: US RETROPERITONEAL LIMITED (RENAL ONLY) CLINICAL INFORMATION: Bilateral flank pain. COMPARISON: Baseline CT scan 05/04/2023. TECHNIQUE: Standard bilateral renal ultrasound FINDINGS: RIGHT KIDNEY: 9.6 x 4.8 x 5.4 cm (SAG x AP x TRV). The kidney is normal in size, contour, and echogenicity. Renal cortical thickness is normal. No calculi or focal parenchymal lesions. No hydronephrosis. Vascular calcifications noted. LEFT KIDNEY: 10.7 x 4.8 x 5.5 cm (SAG x AP x TRV). The kidney is normal in size, contour, and echogenicity. Renal cortical thickness is normal. Previous noted perinephric collection has resolved. Low pole stone measures up to 5 mm. IMPRESSION: Resolved left-sided perinephric collection. Nonobstructing left-sided renal calculus. Date of Service: 07/10/23 EXAMINATION: US PELVIS LIMITED (BLADDER) CLINICAL INFORMATION: Calculus of ureter status post left ESWL on May 02, 2023. CT abdomen and pelvis showed a small left pericapsular hematoma not clinically significant, left ureteral stones, Stein[address]; patient has passed some stones, follow-up imaging. COMPARISON: None available. TECHNIQUE: Real-time imaging of the bladder. FINDINGS: BLADDER: Well distended. Bilateral ureteral jets are demonstrated. Prevoid bladder volume is 329 mL. Postvoid bladder volume is 83 mL. No gross bladder calculi are appreciated. Limited visualization due to bowel gas. IMPRESSION: 1. Postvoid bladder volume is 83 mL. 2. No gross bladder calculi are appreciated. Limited visualization due to bowel gas. Assessment & Plan Assessment & Plan (1) Kidney stone on left side: Code(s): N20.0 - Calculus of kidney Category: Medical Plan Left ESWL. The patient states she is having w/u for ovarian cyst and wants to wait until that is done. Orders: Orders AMB Urinalysis Automated 06/20/24 Z13.9 - Encounter for screening, unspecified Patient Instructions: The patient had an opportunity to ask questions regarding treatment plan. The patient expressed understanding and agreement with the above treatment plan. The patient is aware they should contact our office by phone for worsening of their current condition or the appearance of new symptoms. Compliance is encouraged with any medications and followup testing that is ordered. It is a privilege to be allowed the opportunity to participate in the urologic care of your patient. If you have any questions or concerns regarding treatment for the above conditions please do not hesitate to contact me. The office telephone contact is [phone]. This note is constructed in part using voice recognition software. While every effort has been made to ensure accuracy side trimmer errors may have been included. Yours sincerely, Vianey Miller MD Coding Level of Care Code Est Pt Level 4 (33457) Diagnoses Kidney stone on left side N20.0 CPT Codes Post Residual Void - PVR CPT Code: 11649-Sjgg Void Residual by ultrasound ([id number])
== END 2024-06-20 14:38 | disposition home or self-care (01) ==
PROVIDERS: PCP Nurse Practitioner Primary Care; Visit Provider Urology
DX: N20.0 Calculus of kidney (principal)
CPT/HCPCS: 99214

== ENCOUNTER → 2024-06-20 13:51 | Outpatient (BNVA) | payer MEDICAID, SELFPAY | PROVIDERS: PCP Nurse Practitioner Primary Care; Visit Provider Urology | DX: N20.0 Calculus of kidney (principal) | CPT/HCPCS: 51798; 99212 ==

== ENCOUNTER 2024-07-03 09:50 | Outpatient (REF) | payer MEDICAID, SELFPAY ==
--- NOTE | ~2024-07-03 | MM_ITS ---
EXAMINATION: MM SCREENING DIGITAL BREAST TOMOSYNTHESIS, BILATERAL CLINICAL INFORMATION: Screening. Asymptomatic. COMPARISON: Mammography: Comparison is made with available priors TECHNIQUE: Digital breast mammography with tomosynthesis is performed in both the craniocaudal and mediolateral oblique views along with computer-aided detection (CAD). FINDINGS: The breasts are heterogeneously dense, which may obscure small masses (ACR BI-RADS breast composition Category c). There are no significant masses, abnormal calcifications, or other abnormalities. MM/MM tomosynthesis screening BI IMPRESSION: No mammographic evidence of malignancy. ASSESSMENT: BI-RADS BI-RADS 1 - Negative RECOMMENDATION: Routine annual mammography screening. 1 year F/U This examination should not preclude the clinical evaluation of a suspicious palpable abnormality. This patient's information was entered into a reminder system with a target due date for their next mammogram. Electronically signed by: Alysa Faith DO 07/09/2024 10:54 AM DOTTIE
== END 2024-07-03 09:51 | disposition home or self-care (01) ==
LOC: HO.MAMMO 09:50
PROVIDERS: PCP Nurse Practitioner Primary Care; Visit Provider Obstetrics & Gynecology
DX: Z12.31 Encounter for screening mammogram for malignant neoplasm of breast (principal)
CPT/HCPCS: 77063; 77067

== ENCOUNTER → 2024-07-03 09:53 | Outpatient (BNV) | payer MEDICAID, SELFPAY | PROVIDERS: PCP Nurse Practitioner Primary Care; Visit Provider Internal Medicine | DX: Z12.31 Encounter for screening mammogram for malignant neoplasm of breast (principal) | CPT/HCPCS: 77063; 77067 ==

== ENCOUNTER 2024-07-04 10:28 | Outpatient (AMB) | payer MEDICAID, SELFPAY ==
[2024-07-04 10:32] VITALS: BP 134/80; BMI 30.3
--- NOTE | 2024-07-04 10:32 | MHC.OFFVIS ---
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 MRI of the pelvis done on 06/25/2024 showed no ovarian cyst or masses identified, normal uterus. The patient had a pelvic ultrasound in 04/22 which showed the followin/24 pelvic ultrasound showed the following: IMPRESSION: 1. Normal-appearing uterus and left ovary. 2. Right ovarian mass with some areas of shadowing, possibly a dermoid. Pelvic MRI is recommended for further evaluation. Follow-up ultrasound in 05/22 showed the following IMPRESSION: 1. Limited study due to dirty shadowing. 2. Consider MRI and/or short term follow-up ultrasound. REPLACED BY [facility] Medical History Neuropathy Somnolence, daytime Flank pain RUQ abdominal pain Left foot pain Bilateral hand pain COVID-19 Hepatitis C Rheumatoid arthritis Flank pain Renal stones Bipolar disorder Panic disorder Depression Anxiety Abdominal distension (gaseous) Asthma Hyperlipidemia 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 Mother Diabetes mellitus Sister Diabetes mellitus Brother No problems noted. Paternal Uncle Colon cancer Social History Household Members: None Housing: Apartment Do you presently have visiting nurse or other home services: Yes Alcohol intake: current Alcohol intake frequency: former alcohol drinker Alcohol type: beer Patient Tobacco Use Status: Current everyday Tobacco user Tobacco use type: Cigarette Cigarettes Per Day: 2 Years Smoked: 15 service: No Review of Systems Const All systems reviewed & are unremarkable except as noted in HPI and below Reports as per HPI and Reports no additional complaints GI Reports no additional complaints Reports no additional complaints Assessment & Plan Assessment & Plan (1) Complex ovarian cyst: Code(s): N83.299 - Other ovarian cyst, unspecified side Category: Medical Plan: Discussed with the patient the results the MRI showing normal bilateral ovaries with no ovarian cyst or masses and normal uterus. The patient was reassured. All questions answered, the patient verbalized understanding Coding Level of Care Code Est Pt Level 3 (57917) Diagnoses Complex ovarian cyst N83.299
== END 2024-07-04 10:42 | disposition home or self-care (01) ==
LOC: HO.HWS 10:28
PROVIDERS: PCP Nurse Practitioner Primary Care; Visit Provider Obstetrics & Gynecology
DX: N83.299 Other ovarian cyst, unspecified side (principal)
CPT/HCPCS: 99213

== ENCOUNTER → 2024-07-04 10:28 | Outpatient (BNVA) | payer MEDICAID, SELFPAY | PROVIDERS: PCP Nurse Practitioner Primary Care; Visit Provider Obstetrics & Gynecology | DX: N83.299 Other ovarian cyst, unspecified side (principal) | CPT/HCPCS: 99212 ==

== ENCOUNTER 2024-07-24 17:53 | Outpatient (REF) | payer MEDICAID, SELFPAY ==
[2024-07-24 18:17] LABS: Appearance Urine Cloudy; Color Urine Dark Yellow; Glucose Urine UA 100 mg/dL (Negative); Leukocyte Esterase Urine Small (1+) (Negative); Nitrite Urine Negative (Negative); PH 5.5 (5.0-9.0); Specific Gravity - Urine 1.025 (1.005-1.025); UMIC TRIGGER UACC YES; Urine Blood Negative (Negative); Urine Ketones Trace mg/dL (Negative); Urine Protein Trace mg/dL (Neg-Trace)
[2024-07-24 18:51] LABS: Bacteria Urine 4+ (None Seen); Calcium Oxalate Crystals Urine Present; RBC Urine 0-2 /HPF (0-2); Squamous Epithelial Cell Urine >20 /HPF (0-2); UACC Culture Trigger YES
== END 2024-07-24 17:54 | disposition home or self-care (01) ==
LOC: HO.HHCLNP 17:53
PROVIDERS: Visit Provider Nurse Practitioner Primary Care
DX: R30.0 Dysuria (principal)
CPT/HCPCS: 81001; 87086

== ENCOUNTER 2024-08-07 10:35 | Outpatient (AMB) | payer MEDICAID, SELFPAY ==
--- NOTE | 2024-08-07 10:53 | MHC.OFFVIS ---
Vital Signs 08/07/24 10:55 Height 5 ft 3 in Weight 175 lb BMI 31.0 BP 108/57 L Blood Pressure Location Lt brachial Position Sitting Pulse 65 Intake Visit Reasons: S/P [place]; Dr. Maldonado Intake Note: Patient followup for GERD and EGD results Patient cc: abdominal pain/bloating on and off, acid reflex with burning sensation come and go, some diarrhea andshe denies any other GI issues for today. Patient is going to start with Epclusa/HCV treatment soon. Kid Club Attendant Required: Yes Kid Club Attendant Name: [facility] Accompanied by: Self / Same As Patient Allergies morphine Adverse Reaction (Verified 03/19/25 11:03) Abdominal Pain Medication List - Last Reconciled 08/07/24 by Ashlie Maldonado MD albuterol sulfate 2.5 mg inhalation Q4H PRN amlodipine 10 mg PO QAM aspirin 81 mg PO QPM carvedilol 6.25 mg PO cholecalciferol (vitamin D3) (Vitamin D3) 25 mcg PO QAM cyclobenzaprine 10 mg PO TID PRN famotidine 20 mg PO TID fluticasone propionate 110 mcg/actuation 1 puff inhalation Q12H gabapentin 300 mg PO BID insulin glargine (Lantus Solostar U-100 Insulin) 60 units subcut BEDTIME insulin lispro 20 units subcut TID lidocaine 5% 2 patches topical DAILY PRN lisinopril 40 mg PO QPM loratadine (Claritin) 10 mg PO DAILY mometasone 100 mcg/actuation (Asmanex HFA) 2 puffs inhalation Q12H PRN naproxen 500 mg PO BID PRN oxycodone 5 mg PO Q8H PRN pen needle, diabetic (UltiCare Pen Needle) As directed pioglitazone 15 mg PO QAM polyethylene glycol 3350 (Miralax) 17 grams PO DAILY 1 day pyridoxine (vitamin B6) 100 mg PO QAM quetiapine 25 mg PO BID PRN quetiapine 150 mg PO BEDTIME ropinirole 0.5 mg PO BEDTIME rosuvastatin 5 mg PO BEDTIME semaglutide (Ozempic) 0.5 mg subcut MO sennosides-docusate sodium 8.6-50 mg (Senna Plus) 2 caps PO BEDTIME PRN sofosbuvir-velpatasvir 400-100 mg (Epclusa) 1 tab PO DAILY 12 weeks trazodone 150 mg PO BEDTIME PRN HPI HPI S/P [place]; Dr. 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 12/01/22 patient reports she started taking the Mavyret on November 06 and d/c'd it on November 13 due to throbbing headaches she was constantly getting. patient reports that she was advised to continue taking medication and that headache would subside. patient reports that this was not the case. patient reports that she was taking Tylenol 650mg and there was no improvement. she states that she cannot take too much Tylenol due to her Cirrhosis. patient states she was awaiting appointment to further discuss and receive your recommendation/suggestions. patient also reported fatigue, and trouble sleeping. TODAY'S VISIT: [facility] Remod[employer], Patient cc: abdominal pain/bloating on and off, acid reflex with burning sensation come and go, some diarrhea and she denies any other GI issues for today Intermittent abdominal pain - when she eats foods that she is not supposed to eat. waiting to start Epclusa for Hep C - prescribed by Dr Harding Concerned about taking the prep for the colon - advised to have a Cologuard test instead. PAST VISITS: Not doing too good - burning in the opening of the stomach. Complains of RUQ pain. Prescribed Famotidine which has been helping Takes it in the morning and the afternoon when she notes burning in the stomach - does not take it every day Pain improves after she has a BM She takes a medication if no BM x 3 days. Pt tearful due to abdominal pain - 04/08 RUQ pain radiating down into the bladder. Complains of pain and pressure when she urinates - hx of urinary obstruction due to renal stones. Pt complains of pain since she had a cystoscopy in 05/21. PAST VISITS: Took Mavyret for 1 week and stopped due to persistent GOMEZ's Has a hx of HAs before starting Mavyret. GOMZE got worse after she started the Mavyret. Usually has HAs at night when she is trying to go to sleep. Takes Tyelenol with partial improvement. Wakes up with GOMEZ the following day. Takes a shower and the GOMEZ goes away. Denies dysphagia to food Takes Esomeprazole twice daily. Pt is being scheduled in [place] for a breast bx due to bleeding from the rt nipple. Denies any change in GI symptoms Continues to have burning, bloating, constipation and diarrhea Complains of RUQ pain radiating to the back. Pain is constant and takes tylenol. Notes intermittent diarrhea - usually once a week. Hx of PUD.? No ulcer on FU EGD. Complains of difficulty urinating and advised to schedule a FU appt with Dr Hubbard Complains of right flank pain for the past 4 to 5 days radiating anteriorly - has a hx of renal stones and was advised to FU with Urology. Intermittent abdominal bloating. Has a BM daily and notes occasional diarrhea Scheduled for an EGD in 07/19 and did not come for the appt since she was not feeling good. She would like to reschedule. Pt was seen by Dr Michele (ID) for Hepatitis C and she was prescribed Mavyret x 8 weeks Pt states she unable to start treatment since ? medication was not covered. She will fax the letter from her Insurance to the GI clinic Noted GOMEZ and diarrhea after she was prescribed medications for DM. Diagnosed with Hepatitis C ? 10 yrs ago. Denies IVDA.? Had blood transfusion several yrs ago. Intermittent fatigue and GOMEZ. Patient denies symptoms of heartburn, dysphagia, nausea, vomiting, change in appetite.? Weight fluctuates. Chronic constipation and diet related diarrhea. Denies recent change in bowel habits, black stools or rectal bleeding. Patient denies major cardiac or pulmonary problems, loud snoring or sleep apnea Denies problems with anesthesia in the past. Denies being on chronic anticoagulation. Patient denies known family history of liver disease, colon polyps, or other GI malignancies. Paternal uncle had colon cancer and of the disease. PAST EGD/COLONOSCOPY:? EGD a long time ago showed stomach ulcers. Never had a colonoscopy. PAST GI HISTORY BY REVIEW OF MEDICAL RECORDS: 04/2018 Pt was seen in the GI clinic by QUENTIN Branch: 53 yo female returns for a scheduled office visit for cirrhosis and hepatitis? C.? accounting office manager Ingrid Miller interprets for todays'? visit.? Patient has been seen in the past for treatment of hepatitis C? but was inconsistent in keeping appointments and never received treatment. She? had been scheduled for an EGD in 2016 but study was cancelled due to blood? sugars too high. Has not been seen since 2016. Patient comes today as? she is asking for an EGD and colonoscopy to be performed. States that the clinic? she attends has ordered Harvoni to treat her Hepatitis C but patient requests? that the EGD be performed before she starts the treatment. States that she's had? an ulcer in the past and wants to make sure her stomach was ok. Additionally she? states that she hasn't had a colonoscopy and would like that to be performed? before starting treatment. Patient states that she was recently seen? in the ER for back pain and was told that she had a pinched nerve. Reviewing the? CT notes that she had diverculosis and two kidney stones- a 2 and a 3mm on the right and an 8mm? on the left. The Ct? also noted that the surface of her liver was c/w cirrhosis. Is aware that she? needs a repeat diagnostic study every 6 months for HCC surveillance. Liver labs? reveal AST 41, ALT 54, GGT 55, alk phos 155. Her WBC count was at 17 and there was blood in her urine. States that she moves her bowels nearly? every day but does have intermittent straining and will have blood on the? tissue. No previous colonoscopy. No family h/o colon cancer. Patient? is diabetic and states that she lost a lot of weight and remarks that her? diabetes is better controlled. 1.?Cirrhosis of liver without ascites, unspecified hepatic cirrhosis? type?Notes: Patient has cirrhosis- most likely from Hep C. Is aware? that she will need q6 months HCC surveillance.?? 2.?H/O gastric ulcer?Notes: Patient has a h/o gastric ulcer? in 2000- is concerned that she wants to make sure her stomach is healthy before? starting Harvoni. Will schedule an?EGD IMAGING STUDIES:? 08/30/23 ABD US SHOWED: Findings consistent with hepatic cirrhosis with elevated portal pressures and varices. No focal hepatic mass identified. Left pleural effusion. 07/2022 ABD US SHOWED: 1.? Cirrhotic liver with borderline splenomegaly. 2.? Nonobstructive left renal calculi. 3.? Nonobstructive right renal calculi versus vascular calcifications. 4.? Status post cholecystectomy. 10/27/20 ABD US SHOWED:Three echogenic nonobstructive stones left kidney.Hepatic steatosis with nodular appearance and mild hepatomegaly most suggestive of cirrhosis. Similar findings were seen on the previous ultrasound exam 12/10/2013. ENDOSCOPIC STUDIES:?05/05/22 EGD SHOWED: ESOPHAGUS: GE junction at 36 cms. No varices, esophagitis or Harrison's. STOMACH:? Mild portal gastropathy and antral erythema. Biopsies were obtained. No gastric varices and grade 2 flap valve on retroflexed examination of the cardia. DUODENUM: A diverticulum seen in the medial wall of the bulb. Normal descending duodenum - biopsies were obtained to check for celiac sprue. Plan:? Patient has an appointment on 07/27/22 in the GI Clinic with? Ashlie Maldonado M.D. BIOPSES SHOWED: A.? Small bowel, biopsy:? Small intestinal mucosa with focal mildly increased intraepithelial lymphocytes and preserved villous architecture.? See comment. B.? Stomach, antrum, biopsy:? Antral-type and oxyntic mucosa with moderate chronic, focally active, inflammation and focal intestinal metaplasia; no dysplasia identified; no Helicobacter organisms seen. COMMENT: The findings in the duodenum are non-specific.? The differential diagnosis is broad and includes infection (e.g. viral or H. pylori), medication/drugs (e.g. NSAIDs), gluten sensitivity/celiac disease, bacterial overgrowth, tropical sprue, immunodeficiency syndromes (e.g. IgA deficiency, CVID), autoimmune enteropathy, Crohns and collagen vascular disease, among others.? Please correlate with clinical and other laboratory findings. [facility] Medical History Bilateral hand pain Disc disease, degenerative, cervical Neuropathy Somnolence, daytime Flank pain RUQ abdominal pain Left foot pain COVID-19 Hepatitis C Rheumatoid arthritis Flank pain Renal stones Bipolar disorder Panic disorder Depression Anxiety Abdominal distension (gaseous) Asthma Hyperlipidemia 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 Mother Diabetes mellitus Sister Diabetes mellitus Brother No problems noted. Paternal Uncle Colon cancer Social History Household Members: None Housing: Apartment Do you presently have visiting nurse or other home services: Yes Unable to assess alcohol history related to: Unknown Alcohol intake: current Alcohol intake frequency: former alcohol drinker Alcohol type: beer Patient Tobacco Use Status: Current everyday Tobacco user Tobacco use type: Cigarette Cigarettes Per Day: 2 Years Smoked: 15 service: No Review of Systems Const All systems reviewed & are unremarkable except as noted in HPI and below Physical Exam Vital Signs: Last Vital Signs Pulse 65 08/07/24 10:55 BP 108/57 L 08/07/24 10:55 BMI result Body Mass Index 31.0 Const General: healthy appearing and no acute distress Nutritional Appearance: obese Orientation/consciousness: patient oriented x3 Limitations: language barrier HEENT Head: Yes normal to inspection Ears: hearing grossly normal bilaterally Eyes Sclerae: sclerae normal Pupils: Equal, round and reactive pupils present Neck Neck: Yes normal visual inspection Chest Chest palpation & inspection: normal inspection of the chest Resp Effort & Inspection: normal respiratory effort Auscultation: clear to auscultation bilaterally Cardio Palpation: normal PMI Rate: regular rate Rhythm: regular rhythm Heart sounds: S1 normal heart sound present, S2 normal heart sound present and no murmurs GI Palpation (GI): Soft to palpation, nontender and No hepatosplenomegaly present Auscultation: normal bowel sounds Rectal Exam - Female: deferred Skin General skin exam: no rashes or lesions noted Neuro General: patient oriented x3, gait normal and moves all extremities Cranial nerves: Yes Equal, round and reactive pupils present Psych Appearance: grossly normal Mental Status: mental status grossly normal Assessment & Plan Assessment & Plan (1) Hepatitis C: Comment: She has viral load undetectable Code(s): B19.20 - Unspecified viral hepatitis C without hepatic coma Category: Medical Qualifiers: Hepatic coma status: without hepatic coma Viral hepatitis chronicity: chronic Qualified Code(s): B18.2 - Chronic viral hepatitis C (2) Cirrhosis: Code(s): K74.60 - Unspecified cirrhosis of liver Category: Medical Qualifiers: Ascites presence: without ascites Hepatic cirrhosis type: unspecified hepatic cirrhosis Qualified Code(s): K74.60 - Unspecified cirrhosis of liver Plan 59 YF with asthma, Htn, DM followed in GI for cirrhosis complicated by mild thrombocytopenia (Liver Fibrosis score 0.73, Liver Fibrosis stage F3- F4) due to hepatitis-C infection (possibly acquired by a blood transfusion several yrs ago). Patient denies having a colonoscopy in the past. Patient has not had treatment for hepatitis-C since she has trouble swallowing pills. On 12/01/22 @ 13:29 Sarah Haddad Wrote To Ashlie Maldonado telephone call was placed to patient to inquire about below. patient reports she started taking the Mavyret on November 06 and d/c'd it on November 13 due to throbbing headaches she was constantly getting. patient reports that she was advised to continue taking medication and that headache would subside. patient reports that this was not the case. patient reports that she was taking Tylenol 650mg and there was no improvement. she states that she cannot take too much Tylenol due to her Cirrhosis. patient states she was awaiting appointment to further discuss and receive your recommendation/suggestions. patient also reported fatigue, and trouble sleeping. 05/05/22 EGD was performed (FU of PUD) and findings as noted above Pt was seen by Dr Michele (ID) for Hepatitis C and she was prescribed Mavyret x 8 weeks Pt states she unable to start treatment since she is unable to swallow large pills/ ? medication was not covered. (Checked with [facility] [place] - Mavyret is available in pellet form containing Glecaprevir 50 mg and pibrentasvir 20 mg Pt can mix with peanut butter or sao tomean yogurt - she will need to take 6 packets daily. New prescription was sent for Mavyret. REDUCING THE RISK OF LIVER PROGRESSION:? patient was advised to completely avoid use of alcohol and lose weight. ?HCC SURVEILLANCE: ? the patient is at risk of developing hepatocellular carcinoma given the presence of cirrhosis and need 6 monthly imaging surveillance with either abdominal ultrasound (US) or multiphase cross-sectional imaging (CT or MRI).? Last Abd CT SCAN in 12/2021 and abd US in Jul, 2022 had shown no focal liver lesions suspicious of HCC.? SURVEILLANCE FOR GASTROESOPHAGEAL VARICES: No varices noted on EGD in 04/2022. QUESTION OF LIVER TRANSPLANTATION: ? As she has never had any hepatic decompensation, and continues to have good hepatic synthetic function with meld score of 7, liver transplantation does not need to be considered at this time. 11/01/23 Not doing too good - burning in the opening of the stomach and RUQ pain. Prescribed Famotidine which has been helping - does not take it every day Pt? will be scheduled for a colonoscopy for colon cancer screening - scheduled 02/15/24 EGD showed gastritis, no esophageal varices and a large duodenal diverticulum. Pt did not want same day colon 08/07/24 Intermittent abdominal pain - when she eats foods that she is not supposed to eat. waiting to start Epclusa for Hep C - prescribed by Dr Harding Concerned about taking the prep for the colon - advised to have a Cologuard test instead. Pt advised to check a stool cologard and schedule an abd US for Fu of cirrhosis FU in 4 months Orders: Orders US abdomen limited 08/07/24 K74.60 - Unspecified cirrhosis of liver Referrals Cologuard Test Z12.11 - Encounter for screening for malignant neoplasm of colon Coding Level of Care Code Est Pt Level 4 (73633) Diagnoses Chronic hepatitis C without hepatic coma B18.2 Hepatic coma status: without hepatic coma Viral hepatitis chronicity: chronic Cirrhosis of liver without ascites, unspecified hepatic cirrhosis type K74.60 Ascites presence: without ascites Hepatic cirrhosis type: unspecified hepatic cirrhosis Time Spent (min) 21
[2024-08-07 10:55] VITALS: BP 108/57; PULSE 65; BMI 31.0
== END 2024-08-07 12:11 | disposition home or self-care (01) ==
PROVIDERS: PCP Nurse Practitioner Primary Care; Visit Provider Internal Medicine Gastroenterology
DX: B18.2 Chronic viral hepatitis C (principal); K74.60 Unspecified cirrhosis of liver
CPT/HCPCS: 99499

== ENCOUNTER 2024-08-29 09:26 | Outpatient (REF) | payer MEDICAID, SELFPAY ==
--- NOTE | ~2024-08-29 | US_ITS ---
CLINICAL HISTORY: K74.60 - Unspecified cirrhosis of liver US abdomen limited Comparison: None Findings: The visualized pancreas is normal. The aorta and inferior vena cava are normal caliber. Coarse hepatic echotexture with lobulated contour ccompatible with known cirrhosis. Mild hepatomegaly measuring 16.7 cm in length. No hepatic mass lesion seen. There is no intrahepatic bile duct dilatation. The common duct is 7 mm in diameter. Cholecystectomy. The main portal vein is antegrade. The right kidney is 9.3 cm in length. Unremarkable right kidney. No ascites. IMPRESSION: Hepatic cirrhosis. No hepatic mass lesion. This document has been electronically signed by: Della Hand MD on 09/03/2024 09:53:53
--- OUTSIDE RECORDS SUMMARY | 2024-08-29 09:53 | XMS_ITS | Encounter Summary ---
Author Organization [employer] Address [address] [place] [address] Care Team Providers Care Code Inspector Name Role Phone Wanda Bonilla Primary Care Provider [phone] Reason for Visit * Reason Onset Date Comments Appointment Request 06/12/2023 Encounter Details Date Type Department Care Team ([facility] Contact Info) Description 06/12/2023 Telephone [facility] [address] [place] [address] Wanda Bonilla ANP [address] [place] [address] Appointment Request Social History Tobacco Use Types Packs/Day Years Used Date Smoking Tobacco: Every Day Cigarettes Passive Smoke Exposure: Current Smokeless Tobacco: Never Alcohol Use Standard Drinks/Week Comments Not Currently 0 (1 standard drink = 0.6 oz pur e alcohol) Depression Answer Date Recorded Patient Health Questionnaire-9 Score 0 08/25/2022 Housing Stability Answer Date Recorded What is your housing situation today? I have dhaval lozada 05/14/[address] you li ve. Do you have problems with any of the following? None of the above 05/14/2023 Food Insecurity Answer Date Recorded Within the past 12 months, y ou worried that your food would run out before you got money to buy more: Never True 05/14/2023 Within the past 12 months,th e food you bought just didn't last and you didn't have enough money to get more: Never True Transportation Answer Date Recorded In the past 12 months, has l ack of transportation kept you from medical appts, meetings, work or from getting things needed for daily living? No 05/14/2023 Utilities Answer Date Recorded In the past 12 months, has t he electric, gas, oil or water company threatened to shut off services in your home? No 05/14/2023 Depression Answer Date Recorded Patient Health Questionnaire-2 Score 0 08/25/2022 Comments Unknown Sex and Gender Information Value Date Recorded Sex Assigned at Female 05/29/2022 10:15 AM EDT Legal Sex Female 10:15 AM EDT Gender Identity Female 05/29/2022 10:15 AM EDT Sexual Orientation Straight 05/29/2022 10 :15 AM EDT documented as of this encounter Miscellaneous Notes * Telephone Encounter - Pita Call - 06/12/2023 8:34 AM EST Tc from pt requesting f/u appt with PCP in regards 06/06/2023 biopsy. documented in this encounter Plan of Treatment Upcoming Encounters Date Type Department Care Team (Late st Contact Info) Description 09/25/2024 2:00 PM EST Office Visit [facility] [address] [place] [id number] Wanda Bonilla ANP [address] [place] [address] 10/21/2024 10:00 AM EDT Office Visit [address] [address] Shivani Small CNM [address] [place] [address] documented as of this encounter Visit Diagnoses Not on filedocumented in this encounter Additional Health Concerns Assessment Noted Time PHQ-9 Depression Total Score: 0 08/25/19 23 1:48 PM EST documented as of this encounter Care Teams Code Inspector Relationship Specialty Start Date End Date Wanda Bonilla ANP [address] [place] [id number] PCP - General Family Medicine 09/03/20 documented as of this encounter
--- OUTSIDE RECORDS SUMMARY | 2024-08-29 09:53 | XMS_ITS | Encounter Summary ---
Author Organization [employer] Address [address] [place] [address] Care Team Providers Care Criminal Psychologist Name Role Phone Wanda Bonilla Primary Care Provider [phone] Reason for Visit * Reason Onset Date Comments Referral 08/30/2022 Encounter Details Date Type Department Care Team ([facility] st Contact Info) Description 08/30/2022 Telephone [facility] [address] [place] [address] Wanda Bonilla ANP [address] [place] [address] Referral Social History Tobacco Use Types Packs/Day Years Used Date Smoking Tobacco: Every Day Cigarettes Passive Smoke Exposure: Current Smokeless Tobacco: Never Alcohol Use Standard Drinks/Week Comments Never 0 (1 standard drink = 0.6 oz pur e alcohol) Depression Answer Date Recorded Patient Health Questionnaire-9 Score 0 08/25/2022 Depression Answer Date Recorded Patient Health Questionnaire-2 Score 0 08/25/2022 Comments Unknown Sex and Gender Information Value Date Recorded Sex Assigned at Female 05/29/2022 10:15 AM EDT Legal Sex Female 10:15 AM EDT Gender Identity Female 05/29/2022 10:15 AM EDT Sexual Orientation Straight 05/29/2022 10 :15 AM EDT COVID-19 Exposure Response Date Recorded In the last 10 days, have yo u been in contact with someone who was confirmed or suspected to have Coronavirus/COVID-19? No / Unsure 08/25/2022 1:32 PM EST documented as of this encounter Miscellaneous Notes * Telephone Encounter - Ish Cartwright - 08/30/2022 11:27 AM EST Tc from pt requesting a referral to see a neurologist Please contact pt at [phone] documented in this encounter Plan of Treatment Upcoming Encounters Date Type Department Care Team (Late st Contact Info) Description 09/25/2024 2:00 PM EST Office Visit [address] [address] Wanda Bonilla ANP [address] [place] [address] 10/21/2024 10:00 AM EDT Office Visit [address] [address] Shivani Small CNM [address] [place] [address] documented as of this encounter Visit Diagnoses Not on filedocumented in this encounter Additional Health Concerns Assessment Noted Time PHQ-9 Depression Total Score: 0 08/25/19 23 1:48 PM EST documented as of this encounter Care Teams Criminal Psychologist Relationship Specialty Start Date End Date Wanda Bonilla ANP [address] [place] [address] [id number] PCP - General Family Medicine 09/03/20 documented as of this encounter
--- OUTSIDE RECORDS SUMMARY | 2024-08-29 09:53 | XMS_ITS | Encounter Summary ---
Author Organization [employer] Address [address] [facility] 7t [place] [address] Care Team Providers Care Manager Audit Name Role Phone Wanda Bonilla Primary Care Provider [phone] Encounter Details Date Type Department Care Team (Late st Contact Info) Description 08/28/2023 Orders Only [facility] MEDICINE 230 [place] [address] Wanda Bonilla ANP 230 [place] [address] Social History Tobacco Use Types Packs/Day Years [...] before you got money to buy more: Sometimes True 2023 Within the past 12 months,th e food you bought just didn't last and you didn't have enough money to get more: Sometimes True 08/30/2023 Transportation Answer Date Recorded In the past 12 months, has l ack of transportation kept you from medical appts, meetings, work or from getting things needed for daily living? No 05/14/2023 Utilities Answer Date Recorded In the past 12 months, has t he [employer], gas, oil or water [employer] threatened to shut off services in your home? No 05/14/2023 Depression Answer Date Recorded Patient Health Questionnaire-2 Score 0 08/25/2022 Comments Unknown Sex and Gender Information Value Date Recorded Sex Assigned at Female 05/29/2022 10:15 AM EDT Legal Sex Female 10:15 AM EDT Gender Identity Female 05/29/2022 10:15 AM EDT Sexual Orientation Straight 05/29/2022 10 :15 AM EDT documented as of this encounter Plan of Treatment Upcoming Encounters Date Type Department Care Team (Late st Contact Info) Description 09/25/2024 2:00 PM EST Office Visit [address] [address] Wanda Bonilla ANP 230 [place] [address] 10/21/2024 10:00 AM EDT Office Visit [address] [address] Shivani Small CNM 230 [place] [address] documented as of this encounter Visit Diagnoses Not on filedocumented in this encounter Additional Health Concerns Assessment Noted Time PHQ-9 Depression Total Score: 0 08/25/19 23 1:48 PM EST documented as of this encounter Care Teams Manager Audit Relationship Specialty Start Date End Date Wanda Bonilla ANP [address] [place] [address] PCP - General Family Medicine 09/03/20 documented as of this encounter
--- OUTSIDE RECORDS SUMMARY | 2024-08-29 09:53 | XMS_ITS | Encounter Summary ---
Author Organization [employer] Address [address] [facility] 7t [place] [address] Care Team Providers Care Enrollment Processor Name Role Phone Wanda Bonilla Primary Care Provider Reason for Visit * Reason Onset Date Comments Med Refill 08/28/2023 Encounter Details Date Type Department Care Team ([facility] st Contact Info) Description 08/28/2023 Telephone [facility] MEDICINE 230 [place] [address] Wanda Bonilla ANP 230 [place] [address] Med Refill Social History Tobacco Use Types Packs/Day Years [...] encounter Miscellaneous Notes * Telephone Encounter - Shanna Lopez LPN - 08/28/2023 1:06 PM EST Med not pended as she has an appointment tomorrow.Please review * Telephone Encounter - Antonio Haddad - 08/28/2023 12:39 PM EST TC from pt requesting medication refill. Medications needing refill: semaglutide (Ozempic) 2 MG/1.5ML solution pen-injector To be sent to: [facility] documented in this encounter Plan of Treatment Upcoming Encounters Date Type Department Care Team (Late st Contact Info) Description 09/25/2024 2:00 PM EST Office Visit [facility] [address] [place] [address] Wanda Bonilla ANP 230 [place] [address] 10/21/2024 10:00 AM EDT Office Visit [facility] [address] [place] [address] Shivani Small CNM 230 [place] [address] documented as of this encounter Visit Diagnoses Not on filedocumented in this encounter Additional Health Concerns Assessment Noted Time PHQ-9 Depression Total Score: 0 08/25/19 23 1:48 PM EST documented as of this encounter Care Teams Enrollment Processor Relationship Specialty Start Date End Date Wanda Bonilla ANP [address] [place] [address] PCP - General Family Medicine 09/03/20 documented as of this encounter
--- OUTSIDE RECORDS SUMMARY | 2024-08-29 09:53 | XMS_ITS | Encounter Summary ---
Author Organization [employer] Address 75 [facility] 7t [place] [address] Care Team Providers Care Print Room Worker Name Role Phone Wanda Bonilla TAHIR Primary Care Provider [phone] Reason for Visit * Reason Comments Med Refill Encounter Details Date Type Department Care Team ([facility] st Contact Info) Description 03/20/2024 Refill [facility] MEDICINE 230 [place], [place] [phone] Shivani Small CNM 230 [place] [address] Social History Tobacco Use Types Packs/Day Years Used Date Smoking Tobacco: Some Days Cigarettes Passive Smoke Exposure: Past Smokeless Tobacco: Never Alcohol Use Standard Drinks/Week Comments Not Currently 0 (1 standard drink = 0.6 oz pur e alcohol) Depression Answer Date Recorded Patient Health Questionnaire-9 Score 5 11/23/2023 Patient Health Questionnaire-9 Score 5 11/23/2023 Last PHQ-9: Questionnaire Data Not on file 0 11/23/2023 Housing Stability Answer Date Recorded What is [...] Answer Date Recorded Patient Health Questionnaire-2 Score 2 11/23/2023 Comments No Sex and Gender Information Value Date Recorded Sex Assigned at Female 05/29/2022 10:15 AM EDT Legal Sex Female 10:15 AM EDT Gender Identity Female 05/29/2022 10:15 AM EDT Sexual Orientation Straight 05/29/2022 10 :15 AM EDT documented as of this encounter Plan of Treatment Upcoming Encounters Date Type Department Care Team (Late st Contact Info) Description 09/25/2024 2:00 PM EST Office Visit [facility] MED[facility]INE [address] [place] [address] Wanda Bonilla ANP [address] [place] [address] 10/21/2024 10:00 AM EDT Office Visit [facility] [address] [place] [address] Shivani Small CNM [address] [place] [address] documented as of this encounter Visit Diagnoses Not on filedocumented in this encounter Additional Health Concerns Assessment Noted Time PHQ-9 Depression Total Score: 5 11/23/19 24 1:33 PM EDT documented as of this encounter Care Teams Print Room Worker Relationship Specialty Start Date End Date Wanda Bonilla ANP [address] [place] [address] PCP - General Family Medicine 09/03/20 documented as of this encounter
--- OUTSIDE RECORDS SUMMARY | 2024-08-29 09:53 | XMS_ITS | Encounter Summary ---
Author Organization [employer] Address 75 [facility] 7t [place] [address] Care Team Providers Care Structural Drafter Name Role Phone Wanda Bonilla TAHIR Primary Care Provider [phone] Reason for Visit * Reason Comments Med Refill Encounter Details Date Type Department Care Team ([facility] st Contact Info) Description 03/14/2024 Refill [facility] MEDICINE 230 [place], [place] [phone] Shivani Small CNM 230 [place] [address] Social History Tobacco Use Types Packs/Day Years [...] Description 09/25/2024 2:00 PM EST Office Visit [facility] MED[facility]INE [address] [place] [address] Wanda Bonilla ANP [address] [place] [address] 10/21/2024 10:00 AM EDT Office Visit [facility] [address] [place] [address] Shivani Small CNM [address] [place] [address] documented as of this encounter Visit Diagnoses Not on filedocumented in this encounter Additional Health Concerns Assessment Noted Time PHQ-9 Depression Total Score: 5 11/23/19 24 1:33 PM EDT documented as of this encounter Care Teams Structural Drafter Relationship Specialty Start Date End Date Wanda Bonilla ANP [address] [place] [address] PCP - General Family Medicine 09/03/20 documented as of this encounter
--- OUTSIDE RECORDS SUMMARY | 2024-08-29 09:53 | XMS_ITS | Encounter Summary ---
Author Organization [employer] Address 75 [facility] 7t [place] [address] Care Team Providers Care Lay Out Carpenter Name Role Phone Wanda Bonilla Primary Care Provider [phone] Reason for Visit * Reason Comments Med Refill Encounter Details Date Type Department Care Team ([facility] st Contact Info) Description 08/26/2024 Refill [facility] MEDICINE [address] [place] [address] Wanda Bonilla ANP [address] [place] [address] Primary hypertension Social History Tobacco Use Types Packs/Day Years [...] Description 09/25/2024 2:00 PM EST Office Visit [facility] MEDICINE [address] [place] [address] Wanda Bonilla ANP [address] [place] [address] 10/21/2024 10:00 AM EDT Office Visit [facility] MED[facility]INE [address] [place] [address] Shivani Small CNM [address] [place] [address] documented as of this encounter Visit Diagnoses Diagnosis Primary hypertension Unspecified essential hypertension documented in this encounter Additional Health Concerns Assessment Noted Time PHQ-9 Depression Total Score: 5 11/23/19 24 1:33 PM EDT documented as of this encounter Care Teams Lay Out Carpenter Relationship Specialty Start Date End Date Wanda Bonilla ANP [address] [place] [address] PCP - General Family Medicine 09/03/20 documented as of this encounter
--- OUTSIDE RECORDS SUMMARY | 2024-08-29 09:53 | XMS_ITS | Encounter Summary ---
Author Organization [employer] Address 75 [facility] 7t [place] [address] Care Team Providers Care Fuller Brush Worker Name Role Phone Wanda Bonilla Primary Care Provider [phone] Reason for Visit * Reason Onset Date Comments dx order 03/19/2024 Encounter Details Date Type Department Care Team ([facility] st Contact Info) Description 03/19/2024 Telephone [facility] MEDICINE [address] [place] [address] Wanda Bonilla ANP 230 [place] [address] dx order Social History Tobacco Use Types Packs/Day Years [...] encounter Miscellaneous Notes * Telephone Encounter - Seanbipin Chance - 03/19/2024 10:31 AM EDT Tc from pt requesting a call back in regards to MRI order, states they received a call to confirm ascheduled appt [place] [facility] [place] however pt attempted to call to confirm appt again and was advised pt does not have an appt and does not have any orders for MRI. Please contact at [phone] Icelandic documented in this encounter Plan of Treatment Upcoming Encounters Date Type Department Care Team (Late st Contact Info) Description 09/25/2024 2:00 PM EST Office Visit [facility] MED[facility]INE [address] [place] [address] Wanda Bonilla ANP 230 [place] [address] 10/21/2024 10:00 AM EDT Office Visit [facility] MEDICINE [address] [place] [address] Shivani Small CNM [address] [place] [address] documented as of this encounter Visit Diagnoses Not on filedocumented in this encounter Additional Health Concerns Assessment Noted Time PHQ-9 Depression Total Score: 5 11/23/19 24 1:33 PM EDT documented as of this encounter Care Teams Fuller Brush Worker Relationship Specialty Start Date End Date Wanda Bonilla ANP 230 [place] [address] PCP - General Family Medicine 09/03/20 documented as of this encounter
--- OUTSIDE RECORDS SUMMARY | 2024-08-29 09:54 | XMS_ITS | Encounter Summary ---
Author Organization [employer] Address 75 [facility] 7t [place] [address] Care Team Providers Care Strap Folding Machine Operator Name Role Phone Wanda Bonilla Primary Care Provider [phone] Reason for Visit * Reason Comments Med Refill Encounter Details Date Type Department Care Team ([facility] st Contact Info) Description 08/01/2024 Refill [facility] MEDICINE 230 [place] [address] Wanda Bonilla ANP 230 [place] [address] Diabetic polyneuropathy associated with type 2 diabetes mellitus (CMS/HCC) Social History Tobacco Use Types Packs/Day Years [...] Description 09/25/2024 2:00 PM EST Office Visit [address] [address] Wanda Bonilla ANP [address] [place] [address] 10/21/2024 10:00 AM EDT Office Visit [address] [address] Shivani Small CNM [address] [place] [address] documented as of this encounter Visit Diagnoses Diagnosis Diabetic polyneuropathy associated with type 2 diabetes mellitus (CMS/HCC) documented in this encounter Additional Health Concerns Assessment Noted Time PHQ-9 Depression Total Score: 5 11/23/19 24 1:33 PM EDT documented as of this encounter Care Teams Strap Folding Machine Operator Relationship Specialty Start Date End Date Wanda Bonilla ANP [address] [place] [address] PCP - General Family Medicine 09/03/20 documented as of this encounter
--- OUTSIDE RECORDS SUMMARY | 2024-08-29 09:54 | XMS_ITS | Encounter Summary ---
Author Organization [employer] Address [address] [facility] 7t [place] [address] Care Team Providers Care Wire Technician Name Role Phone Wanda Bonilla TAHIR Primary Care Provider [phone] Reason for Visit * Reason Comments Cough Nasal Congestion Encounter Details Date Type Department Care Team ([facility] st Contact Info) Description 08/04/2024 9:40 AM EST Office Visit [facility] 230 [place], [place] [phone] Adolfo Benitez MD 230 [place], [place] [phone] Mild persistent asthma with acute exacerbation (Primary Dx); Hypertension, unspecified type; Viral URI Social History Tobacco Use Types Packs/Day Years [...] AM EDT documented as of this encounter Last Filed Vital Signs Vital Sign Reading Time Taken Comments Blood Pressure 161/90 08/04/2024 9:32 AM EST Pulse 80 08/04/2024 9:32 AM EST Temperature 36.3 ??C (97.4 ??F) 08/04/2024 9:32 AM ES T Respiratory Rate 18 08/04/2024 9:32 AM EST Oxygen Saturation 97% 08/04/2024 9:32 AM EST Inhaled Oxygen Concentration - - Weight 79.6 kg (175 lb 6.4 oz) 08/04/2024 9:32 A M EST Height - - Body Mass Index 31.07 04/30/2024 2:48 PM EDT documented in this encounter Progress Notes * Adolfo Benitez MD - 08/04/2024 9:40 AM EST Subjective Patient ID: Tank Max is a 59 y.o. female. HPI Tank has 2 day h/o productive cough with pain over left lower chest only when cough, wheezing, occasional SOB. Has no pain with inspiration. No fever, Albuterol HFA 2x/day, albuterol neb 2x/day, budesonide. Lives alone. Not employed. Smokes 2 cigarettes/day. Declines NRT. 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) Type 2 diabetes mellitus, uncontrolled Perforating dermatosis History of prolactinoma Bloody discharge from right nipple Adverse effect of COVID-19 vaccine Calcaneal spur, left Renal stones Chronic headaches PAD (peripheral artery disease) ([facility]) Sleep disorder, unspecified Somnolence, daytime Class 1 obesity Diabetic retinopathy ([facility]/HCC) Carpal tunnel syndrome Benign neoplasm of pituitary gland ([facility]) Type 2 diabetes mellitus with hyperlipidemia ([facility]/HCC) ([facility]) Chest pain Other microscopic hematuria Dysuria The following portions of the chart were reviewed this encounter and updated as appropriate: Tobacco Allergies Meds Problems Med Hx Surg Hx Fam Hx Review of Systems Constitutional: Negative for fever. Respiratory: Positive for cough, shortness of breath and wheezing. Cardiovascular: Positive for chest pain. Gastrointestinal: Negative for abdominal pain. Skin: Negative for rash. Neurological: Negative for headaches. Objective Physical Exam Constitutional: Appearance: Normal appearance. HENT: Right Ear: Tympanic membrane, ear canal and external ear normal. Left Ear: Tympanic membrane, ear canal and external ear normal. Nose: Nose normal. Mouth/Throat: Mouth: Mucous membranes are moist. Pharynx: Oropharynx is clear. Eyes: Conjunctiva/sclera: Conjunctivae normal. Pupils: Pupils are equal, round, and reactive to light. Cardiovascular: Rate and Rhythm: Normal rate and regular rhythm. Heart sounds: No murmur heard. Pulmonary: Effort: Pulmonary effort is normal. Breath sounds: Normal breath sounds. Chest: Comments: Mild tenderness over left lower posterolat chest wall. Musculoskeletal: General: Normal range of motion. Cervical back: No tenderness. Skin: Findings: No rash. Neurological: Mental Status: She is alert. Gait: Gait is intact. Psychiatric: Mood and Affect: Mood normal. Behavior: Behavior normal. Procedures Assessment/Plan Diagnoses and all orders for this visit: Mild persistent asthma with acute exacerbation Negative rapid Covid and Influenza tests. Covid PCR and Flu tests pending. Prescribed prednisone, monitor BG levels. Continue albuterol and budesonide. Uses lidocaine patches for LBP; advised may used for left chest wall pain. Rtc if not improving. Hypertension, unspecified type Prescribed home BP monitor. Reviewed BP parameters, given written BP log that includes BP parameters, to keep daily. Call if BP readings are elevated. - POCT Rapid COVID Ag - Influenza A (ID NOW Rapid Molecular) - Influenza B (ID NOW Rapid Molecular) Other orders - predniSONE (Deltasone) 20 MG tablet; Take 2 tablets (40 mg) by mouth Once per day for 5 days. documented in this encounter Plan of Treatment Upcoming Encounters Date Type Department Care Team (Late st Contact Info) Description 09/25/2024 2:00 PM EST Office Visit [facility] [address] [place] [address] Wanda Bonilla ANP 230 [place] [address] 10/21/2024 10:00 AM EDT Office Visit [facility] [address] [place] [address] Shivani Small CNM [address] [place] [address] documented as of this encounter Procedures Procedure Name Priority Date/Time Associated Diagnosis Comments POCT INFLUENZA B (ID NOW RAPID MOLECULAR) Routine 08/04/2024 9:46 AM EST Viral URI POCT INFLUENZA A (ID NOW RAPID MOLECULAR) Routine 08/04/2024 9:46 AM EST Viral URI POCT RAPID COVID ANTIGEN Routine 08/04/2024 9:46 AM EST Viral URI documented in this encounter Results * Influenza B (ID NOW Rapid Molecular) (08/04/2024 9:46 AM EST) Influenza B Negative Negative, Indeterminate [facility] Swab 08/04/2024 9:46 AM EST us Adolfo Benitez MD POINT OF CARE TEST ENTER/EDIT OR DERABLES Final Result [facility] [address] [place] [address] [phone] * Influenza A (ID NOW Rapid Molecular) (08/04/2024 9:46 AM EST) Influenza A Negative Negative, Indeterminate [facility] Swab 08/04/2024 9:46 AM EST us Adolfo Benitez MD POINT OF CARE TEST ENTER/EDIT OR DERABLES Final Result Performing Organization Address [facility] de Phone Number [facility] [address] [place] [address] [phone] * POCT Rapid COVID Ag (08/04/2024 9:46 AM EST) Rapid COVID Ag Negative [facility] Swab 08/04/2024 9:46 AM EST us Adolfo Benitez MD POINT OF CARE TEST ENTER/EDIT OR DERABLES Final Result Performing Organization Address [facility] de Phone Number [facility] [address] [place] [phone] documented in this encounter Visit Diagnoses Diagnosis Mild persistent asthma with acute exacerbation- Primary Hypertension, unspecified type Viral URI Acute upper respiratory infections of unspecified site documented in this encounter Additional Health Concerns Assessment Noted Time PHQ-9 Depression Total Score: 5 11/23/19 24 1:33 PM EDT documented as of this encounter Care Teams Wire Technician Relationship Specialty Start Date End Date Wanda Bonilla ANP [address] [place] [address] PCP - General Family Medicine 09/03/20 documented as of this encounter
--- OUTSIDE RECORDS SUMMARY | 2024-08-29 09:54 | XMS_ITS | Encounter Summary ---
Author Organization [employer] Address [address] [facility] 7t [place] [address] Care Team Providers Care Experience Planning Strategist Name Role Phone Wanda Bonilla Primary Care Provider [phone] Reason for Visit * Reason Comments Med Refill Encounter Details Date Type Department Care Team ([facility] st Contact Info) Description 08/13/2024 Refill [facility] MEDICINE [address] [place] [address] Wanda Bonilla ANP [address] [place] [address] Type 2 diabetes mellitus with hyperglycemia, with long-term current use of insulin ([facility]) Social History Tobacco Use Types Packs/Day Years [...] Description 09/25/2024 2:00 PM EST Office Visit [facility] [address] [place] [address] Wanda Bonilla ANP [address] [place] [address] 10/21/2024 10:00 AM EDT Office Visit [address] [address] Shivani Small CNM [address] [place] [address] documented as of this encounter Visit Diagnoses Diagnosis Type 2 diabetes mellitus with hyperglycemia, with long-term current use of insulin ([facility]) documented in this encounter Additional Health Concerns Assessment Noted Time PHQ-9 Depression Total Score: 5 11/23/19 24 1:33 PM EDT documented as of this encounter Care Teams Experience Planning Strategist Relationship Specialty Start Date End Date Wanda Bonilla ANP [address] [place] [address] PCP - General Family Medicine 09/03/20 documented as of this encounter
--- OUTSIDE RECORDS SUMMARY | 2024-08-29 09:54 | XMS_ITS | Encounter Summary ---
Author Organization [employer] Address 75 [facility] 7t [place] [address] Care Team Providers Care Automotive Parts Coordinator Name Role Phone Wanda Bonilla Primary Care Provider [phone] Reason for Visit * Reason Comments Med Refill Encounter Details Date Type Department Care Team ([facility] st Contact Info) Description 08/11/2024 Refill [facility] MEDICINE 230 [place] [address] Wanda Bonilla ANP 230 [place] [address] Diabetic polyneuropathy associated with type 2 diabetes [...] Description 09/25/2024 2:00 PM EST Office Visit [address] [address] Wanda Bonilla ANP [address] [place] [address] 10/21/2024 10:00 AM EDT Office Visit [address] [address] Shivani Small CNM [address] [place] [address] documented as of this encounter Visit Diagnoses Diagnosis Diabetic polyneuropathy associated with type 2 diabetes mellitus (CMS/HCC) documented in this encounter Additional Health Concerns Assessment Noted Time PHQ-9 Depression Total Score: 5 11/23/19 24 1:33 PM EDT documented as of this encounter Care Teams Automotive Parts Coordinator Relationship Specialty Start Date End Date Wanda Bonilla ANP [address] [place] [address] PCP - General Family Medicine 09/03/20 documented as of this encounter
--- OUTSIDE RECORDS SUMMARY | 2024-08-29 09:54 | XMS_ITS | Encounter Summary ---
Author Organization [employer] Address [address] 7t [place] [address] Care Team Providers Care Music Rehabilitation Therapist Name Role Phone Wanda Bonilla Primary Care Provider [phone] Encounter Details Date Type Department Care Team (Late st Contact Info) Description 08/14/2024 Telephone [facility] MEDICINE [address] [place], [place] [phone] Adolfo Fernando, VishnuD Social History Tobacco Use Types Packs/Day Years [...] t he electric, gas, oil or water [employer] threatened to shut off services in your [...] encounter Miscellaneous Notes * Telephone Encounter - Adolfo Fernando PharmD - 08/14/2024 10:27 AM EST .Patient picked up 1st refill of Epclusa on 08/14/2024. Patient received their medication today despite claiming they will be starting on the 30 of August. Went over the correct method of storage and administration, possible side effects, and the importance of adherence. Thanks Justino documented in this encounter Plan of Treatment Upcoming Encounters Date Type Department Care Team (Late st Contact Info) Description 09/25/2024 2:00 PM EST Office Visit [address] [address] Wanda Bonilla ANP 230 [place] [address] 10/21/2024 10:00 AM EDT Office Visit [address] [address] Shivani Small CNM 230 [place] [address] documented as of this encounter Visit Diagnoses Not on filedocumented in this encounter Additional Health Concerns Assessment Noted Time PHQ-9 Depression Total Score: 5 11/23/19 24 1:33 PM EDT documented as of this encounter Care Teams Music Rehabilitation Therapist Relationship Specialty Start Date End Date Wanda Bonilla ANP [address] [place] [address] PCP - General Family Medicine 09/03/20 documented as of this encounter
--- OUTSIDE RECORDS SUMMARY | 2024-08-29 09:54 | XMS_ITS | Encounter Summary ---
Author Organization [employer] Address [address] [facility] 7t [place] [address] Care Team Providers Care Parts Cataloger Name Role Phone Wanda Bonilla Primary Care Provider [phone] Reason for Visit * Reason Comments Med Refill Encounter Details Date Type Department Care Team ([facility] st Contact Info) Description 08/03/2024 Refill [facility] MEDICINE 230 [place] [address] Wanda Bonilla ANP 230 [place] [address] Essential hypertension Social History Tobacco Use Types Packs/Day [...] Description 09/25/2024 2:00 PM EST Office Visit [facility] [address] [place] [address] Wanda Bonilla ANP [address] [place] [address] 10/21/2024 10:00 AM EDT Office Visit [facility]INE [address] [place] [address] Shivani Small CNM [address] [place] [address] documented as of this encounter Visit Diagnoses Diagnosis Essential hypertension Unspecified essential hypertension documented in this encounter Additional Health Concerns Assessment Noted Time PHQ-9 Depression Total Score: 5 11/23/19 24 1:33 PM EDT documented as of this encounter Care Teams Parts Cataloger Relationship Specialty Start Date End Date Wanda Bonilla ANP [address] [place] [address] PCP - General Family Medicine 09/03/20 documented as of this encounter
--- OUTSIDE RECORDS SUMMARY | 2024-08-29 09:54 | XMS_ITS | Encounter Summary ---
Author Organization [employer] Address [address] [facility] 7t [place] [address] Care Team Providers Care Drying Supervisor Name Role Phone Wanda Bonilla Primary Care Provider [phone] Reason for Visit * Reason Onset Date Comments Nurse Triage 08/04/2024 Encounter Details Date Type Department Care Team ([facility] st Contact Info) Description 08/04/2024 Telephone [facility] MEDICINE 230 [place] [address] Wanda Bonilla ANP 230 [place] [address] Nurse Triage Social History Tobacco Use Types Packs/Day Years [...] encounter Miscellaneous Notes * Telephone Encounter - Kristin Dias LPN - 08/04/2024 9:02 AM EST Triage call returned to patient who reports onset of cough and wheezing two days ago. Patient is onher way into walk in center at [facility] at time of call. Sounds SOB. Has used inhalers this morning reports only that phlegm is yellow. Call ended with patient approaching [facility]. Protocol Used: Asthma Attack (Adult) Protocol-Based Disposition: Go to Office or Video Visit Now Video visit not offered Positive Triage Question: * Quick-relief asthma medicine (e.g., albuterol /salbutamol, levalbuterol by inhaler or nebulizer) is needed more frequently than every 4 hours to keep you comfortable * All higher-acuity triage questions were negative * Telephone Encounter - Liv Marrero - 08/04/2024 8:27 AM EST Symptom: Wheezing, Phlegm Outcome: Talk to a nurse or provider within 15 minutes Reason: Any trouble breathing through the mouth The caller accepted this outcome. [phone] documented in this encounter Plan of Treatment Upcoming Encounters Date Type Department Care Team (Late st Contact Info) Description 09/25/2024 2:00 PM EST Office Visit [facility] MEDICINE [address] [place] [address] Wanda Bonilla ANP 230 [place], [place] [phone] 10/21/2024 10:00 AM EDT Office Visit [facility] 230 [place], [place] [phone] Shivani Small CNM 230 [place], [place] [phone] documented as of this encounter Visit Diagnoses Not on filedocumented in this encounter Additional Health Concerns Assessment Noted Time PHQ-9 Depression Total Score: 5 11/23/19 24 1:33 PM EDT documented as of this encounter Care Teams Drying Supervisor Relationship Specialty Start Date End Date Wanda Bonilla ANP [address] [place] [phone] PCP - General Family Medicine 09/03/20 documented as of this encounter
--- OUTSIDE RECORDS SUMMARY | 2024-08-29 09:54 | XMS_ITS | Encounter Summary ---
Author Organization [employer] Address [address] [facility] 7t [place] [address] Care Team Providers Care Intravenous Therapy Nurse Name Role Phone Wanda Bonilla Primary Care Provider [phone] Encounter Details Date Type Department Care Team (Latest Contact Info) Description 08/15/2024 Travel Social History Tobacco Use Types Packs/Day Years [...] Description 09/25/2024 2:00 PM EST Office Visit [address] [address] Wanda Bonilla ANP 230 [place] [address] 10/21/2024 10:00 AM EDT Office Visit [address] [address] Shivani Small CNM 230 [place] [address] documented as of this encounter Visit Diagnoses Not on filedocumented in this encounter Additional Health Concerns Assessment Noted Time PHQ-9 Depression Total Score: 5 11/23/19 24 1:33 PM EDT documented as of this encounter Care Teams Intravenous Therapy Nurse Relationship Specialty Start Date End Date Wanda Bonilla ANP [address] [place] [address] PCP - General Family Medicine 09/03/20 documented as of this encounter
--- OUTSIDE RECORDS SUMMARY | 2024-08-29 09:54 | XMS_ITS | Encounter Summary ---
Author Organization [employer] Address [address] [facility] 7t [place] [address] Care Team Providers Care Buoy Tender Name Role Phone Wanda Bonilla Primary Care Provider [phone] Reason for Visit * Reason Onset Date Comments Returning Call 01/08/2024 Encounter Details Date Type Department Care Team ([facility] st Contact Info) Description 01/08/2024 Telephone [facility] MEDICINE 230 [place] [address] Wanda Bonilla ANP 230 [place] [address] Returning Call Social History Tobacco Use Types Packs/Day Years [...] encounter Miscellaneous Notes * Telephone Encounter - Antonio Haddad - 01/08/2024 9:44 AM EDT Tc from pt stated she received a call from child care coordinator regarding new program in [facility], typewriter mechanic did not see anything documented but advised will forward message. documented in this encounter Plan of Treatment Upcoming Encounters Date Type Department Care Team (Late st Contact Info) Description 09/25/2024 2:00 PM EST Office Visit [facility] MEDICINE [address] [place] [address] Wanda Bonilla ANP 230 [place] [address] 10/21/2024 10:00 AM EDT Office Visit [facility]INE [address] [place] [address] Shivani Small CNM [address] [place] [address] documented as of this encounter Visit Diagnoses Not on filedocumented in this encounter Additional Health Concerns Assessment Noted Time PHQ-9 Depression Total Score: 5 11/23/19 24 1:33 PM EDT documented as of this encounter Care Teams Buoy Tender Relationship Specialty Start Date End Date Wanda Bonilla ANP [address] [place] [address] PCP - General Family Medicine 09/03/20 documented as of this encounter
--- OUTSIDE RECORDS SUMMARY | 2024-08-29 09:54 | XMS_ITS | Encounter Summary ---
Author Organization [employer] [facility] Address [address] [place] [address] 7t [place] [address] Care Team Providers Care Pattern Gater Name Role Phone Wanda Bonilla Primary Care Provider [phone] Reason for Visit * Reason Onset Date Comments triage 07/13/2022 Encounter Details Date Type Department Care Team (Late st Contact Info) Description 07/13/2022 Telephone [facility] MEDICINE [address] [place] [address] Wanda Bonilla ANP [address] [place] [address] triage Social History Tobacco Use Types Packs/Day Years Used Date Smoking Tobacco: Never Assessed Comments Unknown Sex and Gender Information Value Date Recorded Sex Assigned at Female 05/29/2022 10:15 AM EDT Legal Sex Female 10:15 AM EDT Gender Identity Female 05/29/2022 10:15 AM EDT Sexual Orientation Straight 05/29/2022 10 :15 AM EDT documented as of this encounter Miscellaneous Notes * Telephone Encounter - Ish Cartwright - 07/13/2022 4:27 PM EST Symptom: Medication Question Outcome: Schedule a same-day appointment or talk to a nurse or provider today Reason: No high acuity concerns reported by caller The caller accepted this outcome speaks vietnamese documented in this encounter Plan of Treatment Upcoming Encounters Date Type Department Care Team (Late st Contact Info) Description 09/25/2024 2:00 PM EST Office Visit [facility] MEDICINE [address] [place] [address] Wanda Bonilla ANP 230 [place] [address] 10/21/2024 10:00 AM EDT Office Visit [facility] MEDICINE 230 [place], [place] [phone] Shivani Small CNM 230 [place], [place] [phone] documented as of this encounter Visit Diagnoses Not on filedocumented in this encounter Care Teams Pattern Gater Relationship Specialty Start Date End Date Wanda Bonilla ANP [address] [place] [address] PCP - General Family Medicine 09/03/20 documented as of this encounter
--- OUTSIDE RECORDS SUMMARY | 2024-08-29 09:54 | XMS_ITS | Encounter Summary ---
Author Organization [employer] Address [address] 7t [place] [address] Care Team Providers Care Rn Correctional Name Role Phone Wanda Bonilla Primary Care Provider [phone] Reason for Visit * Reason Comments Med Refill Encounter Details Date Type Department Care Team ([facility] st Contact Info) Description 08/16/2024 Refill [facility] 230 [place], [place] [phone] Wanda Bonilla ANP 230 [place], [place] [phone] Restless legs Social History Tobacco Use Types Packs/Day Years [...] Description 09/25/2024 2:00 PM EST Office Visit [facility] MED[facility]INE [address] [place] [address] Wanda Bonilla ANP 230 [place] [address] 10/21/2024 10:00 AM EDT Office Visit [facility] MED[facility]INE [address] [place] [address] Shivani Small CNM [address] [place] [address] documented as of this encounter Visit Diagnoses Diagnosis Restless legs Restless legs syndrome (RLS) documented in this encounter Additional Health Concerns Assessment Noted Time PHQ-9 Depression Total Score: 5 11/23/19 24 1:33 PM EDT documented as of this encounter Care Teams Rn Correctional Relationship Specialty Start Date End Date Wanda Bonilla ANP [address] [place] [phone] PCP - General Family Medicine 09/03/20 documented as of this encounter
--- OUTSIDE RECORDS SUMMARY | 2024-08-29 09:54 | XMS_ITS | Encounter Summary ---
Author Organization [employer] [facility] Address [address] [place] [address] 7t [place] [address] Care Team Providers Care Float Tender Name Role Phone Wanda Bonilla Primary Care Provider [phone] Encounter Details Date Type Department Care Team (Late st Contact Info) Description 08/09/2022 Orders Only [facility] MEDICINE [address] [place] [address] Shanna Lopez LPN Social History Tobacco Use Types Packs/Day Years [...] Description 09/25/2024 2:00 PM EST Office Visit [facility] MEDICINE [address] [place] [address] Wanda Bonilla ANP [address] [place] [address] 10/21/2024 10:00 AM EDT Office Visit [facility] MEDICINE [address] [place] [address] Shivani Small CNM [address] [place] [address] documented as of this encounter Visit Diagnoses Not on filedocumented in this encounter Care Teams Float Tender Relationship Specialty Start Date End Date Wanda Bonilla ANP [address] [place] [address] PCP - General Family Medicine 09/03/20 documented as of this encounter
--- OUTSIDE RECORDS SUMMARY | 2024-08-29 09:55 | XMS_ITS | Encounter Summary ---
Author Organization [facility] Address [address] [place] [address] 7t [place] [address] Care Team Providers Care Medical Records Coordinator Name Role Phone Wanda Bonilla Primary Care Provider [phone] Reason for Visit * Reason Comments Med Refill Encounter Details Date Type Department Care Team (Late Contact Info) Description 01/11/2023 Refill [facility] MEDICINE [address] [place] [address] Wanda Bonilla ANP [address] [place] [address] Social History Tobacco Use Types Packs/Day Years [...] suspected to have Coronavirus/COVID-19? No / Unsure 12/29/2022 10:49 AM EDT documented as of this encounter Plan of Treatment Upcoming Encounters Date Type Department Care Team (Late Contact Info) Description 09/25/2024 2:00 PM EST Office Visit [facility] MEDICINE 230 [place] [address] Wanda Bonilla ANP 230 [place], [place] [phone] 10/21/2024 10:00 AM EDT Office Visit [facility] MEDICINE 230 [place], [place] [phone] Shivani Small CNM 230 [place], [place] [phone] documented as of this encounter Visit Diagnoses Not on filedocumented in this encounter Additional Health Concerns Assessment Noted Time PHQ-9 Depression Total Score: 0 08/25/19 23 1:48 PM EST documented as of this encounter Care Teams Medical Records Coordinator Relationship Specialty Start Date End Date Wanda Bonilla ANP [address] [place] [phone] PCP - General Family Medicine 09/03/20 documented as of this encounter
--- OUTSIDE RECORDS SUMMARY | 2024-08-29 09:55 | XMS_ITS | Encounter Summary ---
Author Organization [employer] Address [address] [facility] 7t [place] [address] Care Team Providers Care Magnetic Tape Winder Name Role Phone Wanda Bonilla Primary Care Provider Reason for Visit * Reason Onset Date Comments Med Refill 10/01/2023 Encounter Details Date Type Department Care Team ([facility] st Contact Info) Description 10/01/2023 Telephone [facility] MEDICINE 230 [place] [address] Wanda Bonilla ANP 230 [place] [address] Med Refill Social History Tobacco Use Types [...] Patient Health Questionnaire-2 Score 0 08/25/2022 Comments No Sex and Gender Information Value Date Recorded Sex Assigned at Female 05/29/2022 10:15 AM EDT Legal Sex Female 10:15 AM EDT Gender Identity Female 05/29/2022 10:15 AM EDT Sexual Orientation Straight 05/29/2022 10 :15 AM EDT documented as of this encounter Miscellaneous Notes * Telephone Encounter - Nuvia Guardado LPN - 10/01/2023 9:34 AM EST Medication pended to PCP. * Telephone Encounter - Antonio Haddad - 10/01/2023 9:18 AM EST TC from pt requesting medication refill. Medications needing refill: naproxen (Naprosyn) 250 MG tablet To be sent to: [facility] pharmacy documented in this encounter Plan of Treatment Upcoming Encounters Date Type Department Care Team (Late st Contact Info) Description 09/25/2024 2:00 PM EST Office Visit [facility] MEDICINE [address] [place] [address] Wanda Bonilla ANP 230 [place] [address] 10/21/2024 10:00 AM EDT Office Visit [facility] MEDICINE [address] [place] [address] Shivani Small CNM 230 [place] [address] documented as of this encounter Visit Diagnoses Not on filedocumented in this encounter Additional Health Concerns Assessment Noted Time PHQ-9 Depression Total Score: 0 08/25/19 23 1:48 PM EST documented as of this encounter Care Teams Magnetic Tape Winder Relationship Specialty Start Date End Date Wanda Bonilla ANP 230 [place] [address] PCP - General Family Medicine 09/03/20 documented as of this encounter
--- OUTSIDE RECORDS SUMMARY | 2024-08-29 09:55 | XMS_ITS | Encounter Summary ---
Author Organization [employer] Address [address] [facility] 7t [place] [address] Care Team Providers Care Global Director Air And Climate Change Name Role Phone Wanda Bonilla Primary Care Provider [phone] Reason for Visit * Reason Onset Date Comments Nurse Triage 03/09/2023 Encounter Details Date Type Department Care Team ([facility] st Contact Info) Description 03/09/2023 Telephone [facility] MEDICINE 230 [place] [address] Wanda Bonilla ANP 230 [place] [address] Nurse Triage Social History Tobacco Use Types [...] Patient Health Questionnaire-2 Score 2 11/23/2023 Comments Unknown Sex and Gender Information Value Date Recorded Sex Assigned at Female 05/29/2022 10:15 AM EDT Legal Sex Female 10:15 AM EDT Gender Identity Female 05/29/2022 10:15 AM EDT Sexual Orientation Straight 05/29/2022 10 :15 AM EDT documented as of this encounter Miscellaneous Notes * Telephone Encounter - Karen King RN - 03/09/2023 9:53 AM EDT Triage call with [employer] Glass Cleaning Machine Tender ID [id number] Pt was seen in ED 02/25 for UTI and started on fluconazole and cefdinir 300mg for 7 days. Pt is finished with antibiotics and is reporting bladder discomfort , burning with urination and frequency which continues. Pt is advised to come to [facility] today open till 4pm to be seen by provider and to check urine again. Pt agrees with disposition. Pt only drinks juice no water. Pt just got some cranberry juice but, doesn't like the taste. Pt will mix cranberry with pineapple juice to be able to drink it more. Advised to cut juices with water as well. Pt also reports pain with insertion of vag gel Pt hasn't been using that gel appropriately and advised to insert gel into vaginal area for most effectiveness. Pt agrees to try. Home care reviewed. Insurance is verified as active prior to booking. Protocol Used: Urinary Tract Infection on Antibiotic Follow-up Call - Female (Adult) Protocol-Based Disposition: See in Office or Video Visit Today or Tomorrow Positive Triage Questions: * Taking antibiotic > 72 hours (3 days) for UTI and painful urination or frequency not improved * Patient wants to be seen * All higher-acuity triage questions were negative Care Advice Discussed: * Reassurance and Education - Urinary Tract Infection * Drink Extra Fluids * Fluids - Extra Notes and Warnings * Phenazopyridine for Severe Urination Pain and Frequency * Phenazopyridine - Extra Notes and Warnings * Pain Medicines * Pain Medicines - Extra Notes and Warnings * Reasons To Call Back - Fever lasts over 24 hours on antibiotics - Pain does not improve by day 4 on antibiotics - Urine symptoms do not improve by day 4 on antibiotics - You become worse. * Telephone Encounter - Kermit Chance - 03/09/2023 8:56 AM EDT Symptom: Urination Pain Outcome: Schedule an urgent appointment (within 1 hour) or talk to a nurse or provider soon Reason: Severe pain now, ( bladder Pain ) pt stated finished all antibiotics. The caller accepted this outcome Please contact at [phone] Malian documented in this encounter Plan of Treatment Upcoming Encounters Date Type Department Care Team (Late st Contact Info) Description 09/25/2024 2:00 PM EST Office Visit [address] [address] Wanda Bonilla ANP [address] [place] [address] 10/21/2024 10:00 AM EDT Office Visit [address] [address] Shivani Small CNM 230 [place] [address] documented as of this encounter Visit Diagnoses Not on filedocumented in this encounter Additional Health Concerns Assessment Noted Time PHQ-9 Depression Total Score: 0 08/25/19 23 1:48 PM EST documented as of this encounter Care Teams Global Director Air And Climate Change Relationship Specialty Start Date End Date Wanda Bonilla ANP [address] [place] [address] PCP - General Family Medicine 09/03/20 documented as of this encounter
--- OUTSIDE RECORDS SUMMARY | 2024-08-29 09:55 | XMS_ITS | Encounter Summary ---
Author Organization [employer] Address [address] [facility] 7t [place] [address] Care Team Providers Care Bench Assembler Operator Name Role Phone Wanda Bonilla Primary Care Provider [phone] Reason for Visit * Reason Comments Med Refill Encounter Details Date Type Department Care Team ([facility] st Contact Info) Description 12/03/2023 Telephone [facility] MEDICINE 230 [place], [place] [phone] Shelli Vo MD 230 [place], [place] [phone] Med Refill Social History Tobacco Use Types [...] encounter Miscellaneous Notes * Telephone Encounter - Flora Meyers - 12/06/2023 8:19 AM EDT Tc from pt requesting status on meds. documented in this encounter Plan of Treatment Upcoming Encounters Date Type Department Care Team (Late st Contact Info) Description 09/25/2024 2:00 PM EST Office Visit [facility] MEDICINE [address] [place] [address] Wanda Bonilla ANP 230 [place] [address] 10/21/2024 10:00 AM EDT Office Visit [facility] MED[facility]INE [address] [place] [address] Shivani Small CNM 230 [place] [address] documented as of this encounter Visit Diagnoses Diagnosis Asthma, unspecified asthma severity, unspecified whether complicated, unspecified whether persistent documented in this encounter Additional Health Concerns Assessment Noted Time PHQ-9 Depression Total Score: 5 11/23/19 24 1:33 PM EDT documented as of this encounter Care Teams Bench Assembler Operator Relationship Specialty Start Date End Date Wanda Bonilla ANP [address] [place] [address] PCP - General Family Medicine 09/03/20 documented as of this encounter
--- OUTSIDE RECORDS SUMMARY | 2024-08-29 09:55 | XMS_ITS | Encounter Summary ---
Author Organization [employer] Address [address] [facility] [address] [place] [address] Care Team Providers Care Network/Telecom Engineer Name Role Phone Wanda Bonilla Primary Care Provider [phone] Reason for Visit * Reason Onset Date Comments Results 09/12/2023 Encounter Details Date Type Department Care Team ([facility] st Contact Info) Description 09/12/2023 Telephone [facility] [address] [place] [address] Wanda Bonilla ANP [address] [place] [address] Results Social History Tobacco Use Types Packs/Day Years [...] encounter Miscellaneous Notes * Telephone Encounter - Sarah Tovar - 09/13/2023 9:24 AM EST Pt called in requesting status on last message . * Telephone Encounter - Rose Mary García - 09/12/2023 9:27 AM EST TC from pt requesting call back regarding Results. Type of results: US abdomen (in chart) Date when done: 08/30 [place] [facility] [place] of results: [place] neck Date when done: sometime last week per pt Facility: [facility] Please contact pt at [phone] documented in this encounter Plan of Treatment Upcoming Encounters Date Type Department Care Team (Late st Contact Info) Description 09/25/2024 2:00 PM EST Office Visit [facility] [address] [place] [address] Wanda Bonilla ANP [address] [place] [address] 10/21/2024 10:00 AM EDT Office Visit [facility] [address] [place] [address] Shivani Small CNM [address] [place] [address] documented as of this encounter Visit Diagnoses Not on filedocumented in this encounter Additional Health Concerns Assessment Noted Time PHQ-9 Depression Total Score: 0 08/25/19 23 1:48 PM EST documented as of this encounter Care Teams Network/Telecom Engineer Relationship Specialty Start Date End Date Wanda Bonilla ANP [address] [place] [address] PCP - General Family Medicine 09/03/20 documented as of this encounter
--- OUTSIDE RECORDS SUMMARY | 2024-08-29 09:55 | XMS_ITS | Clinical Summary ---
Author Organization [address] [facility] Address [address] [place] [address] Phone Care Team Providers Care Curriculum Coordinator Name Role Phone Regina Su ADRIANNE Primary Care Provider [phone] Allergies No known active allergies Medications Medication Sig Dispensed Refills Start Date End Date Status insulin glargine,hum.rec.anlo g (INSULIN GLARGINE SUBQ) Active omeprazole (PriLOSEC) [address] capsule Take 1 capsule (20 mg total) by mouth 1 (one) time each day. Active omega-3 fatty acids 1,000 mg capsule Take by mouth 2 times daily. 2 capsules BID Active albuterol HFA (Proventil HFA) 90 mcg/actuation inhaler Inhale 2 puffs by mouth every 4 (four) hours if needed. Active fluticasone HFA (FLOVENT HFA) 110 mcg/actuation inhaler Inhale 1 puff by mouth 2 (two) times a day. Active insulin lispro (HUMALOG PEN SUBQ) Inject under the skin. Active lisinopriL (PRINIVIL,ZESTRIL) 10 mg tablet Take 1 tablet (10 mg total) by mouth 1 (one) time each day. Active amLODIPine (NORVASC) 10 mg tablet Take by mouth 1 (one) time each day. Active ibuprofen (ADVIL,MOTRIN) 800 mg tablet Take 1 tablet (800 mg total) by mouth every 8 (eight) hours if needed. Active aspirin 81 mg chewable tablet Chew 1 tablet (81 mg total) 1 (one) time each day. Active Active Problems Problem Noted Date Diagnosed Date Asthma Benign neoplasm of pituitary gland and craniopharyngeal duct Carpal tunnel syndrome DM2 (diabetes mellitus, type 2) Hepatitis C Hyperlipidemia LDL goal <70 Hypertension Obesity Social History Tobacco Use Types Packs/Day Years Used Date Smoking Tobacco: Never Assessed Sex and Gender Information Value Date Recorded Sex Assigned at Not on file Gender Identity Not on file Sexual Orientation Not on file Plan of Treatment Upcoming Encounters Date Type Department Care Team ([facility] Contact Info) Description 09/22/2024 3:30 PM EST Office Visit [facility] - [place] [address] [id number] Mario Robbins, DPM [address] [address] Health Maintenance Due Date Last Done Comments Breast Cancer Screening 1965 Diabetes: Annual GFR (Glomer ular Filtration Rate) 1963 Pneumococcal Vaccine: Pediat rics (0 to 5 Years) and At-Risk Patients (6 to 64 Years) (1 of 2 - PCV) 1969 Diabetes: Annual Foot Exam 1973 Diabetes: Annual Retina Eye Exam 1973 DTaP,Tdap,and Td Vaccines (1 - Tdap) 1982 Cervical Cancer Screening: P ap Smear 1984 Zoster Vaccines (1 of 2) 2013 RSV Immunization Patients 60 + Years Old (1 - Risk 60-74 years 1-dose series) 2023 COVID-19 Vaccine (1 - 2023-2 5 season) 2024 Influenza Vaccine (#1) 2024 Cholesterol Screening (Lipid Panel) 06/13/2024 Colorectal Cancer Screening: Colonoscopy 06/13/2024 Depression Screening 06/13/2024 HIV Screening 06/13/2024 Hepatitis C Screening 06/13/2024 Social Influencers of Health Screening 06/13/2024 Diabetes: Annual Urine Albumin-Creatinine Ratio (uACR) 07/11/2024 Diabetes: Blood Sugar Contro l Test (HGBA1C) 07/11/2024 Hypertension/CHF/CAD Annual BMP Blood Test 07/11/2024 HIB Vaccines Aged Out No longer eligi ble based on patient's age to complete this topic HPV Vaccines Aged Out No longer eligi ble based on patient's age to complete this topic Hepatitis A Vaccines Aged Out No long er eligible based on patient's age to complete this topic Hepatitis B Vaccines Aged Out No long er eligible based on patient's age to complete this topic IPV Vaccines Aged Out No longer eligi ble based on patient's age to complete this topic MMR Vaccines Aged Out No longer eligi ble based on patient's age to complete this topic Meningococcal ACWY Vaccine Aged Out N o longer eligible based on patient's age to complete this topic RSV Immunization Patients Un tamera 20 months Aged Out No longer eligible b ased on patient's age to complete this topic Varicella Vaccines Aged Out No longer eligible based on patient's age to complete this topic Care Teams Curriculum Coordinator Relationship Specialty Start Date End Date Regina Su FNP [address] [place] [address] PCP - General Nurse Practitioner 07/11/24
--- OUTSIDE RECORDS SUMMARY | 2024-08-29 09:55 | XMS_ITS | Encounter Summary ---
Author Organization [employer] Address [address] [facility] [address] [place] [address] Care Team Providers Care Pool Cleaner Name Role Phone Wanda Bonilla Primary Care Provider [phone] Encounter Details Date Type Department Care Team (Late st Contact Info) Description 09/26/2023 Telephone [facility] [address] [place] [address] Wanda Bonilla ANP [address] [place] [address] Social History Tobacco Use Types Packs/Day Years [...] * Telephone Encounter - Antonio Haddad - 09/26/2023 10:51 AM EST Tc from pt stated received a call but when they picked up the call hung up, pt unsure on who called. documented in this encounter Plan of Treatment Upcoming Encounters Date Type Department Care Team (Late st Contact Info) Description 09/25/2024 2:00 PM EST Office Visit [facility] [address] [place] [address] Wanda Bonilla ANP [address] [place] [address] 10/21/2024 10:00 AM EDT Office Visit [address] [address] Shivani Small CNM [address] [place] [address] documented as of this encounter Visit Diagnoses Not on filedocumented in this encounter Additional Health Concerns Assessment Noted Time PHQ-9 Depression Total Score: 0 08/25/19 23 1:48 PM EST documented as of this encounter Care Teams Pool Cleaner Relationship Specialty Start Date End Date Wanda Bonilla ANP [address] [place] [address] PCP - General Family Medicine 09/03/20 documented as of this encounter
--- OUTSIDE RECORDS SUMMARY | 2024-08-29 09:55 | XMS_ITS | Encounter Summary ---
Author Organization [employer] Address [address] [facility] 7t [place] [address] Care Team Providers Care Reducing Machine Operator Name Role Phone Wanda Bonilla Primary Care Provider Reason for Visit * Reason Onset Date Comments Hospital Follow-up 11/15/2023 Encounter Details Date Type Department Care Team ([facility] st Contact Info) Description 11/15/2023 Telephone [facility] [address] [place] [address] Wanda Bonilla ANP [address] [place] [address] Hospital Follow-up Social History Tobacco Use Types Packs/Day Years Used Date Smoking Tobacco: Former Cigarettes Passive Smoke Exposure: Past Smokeless Tobacco: [...] * Telephone Encounter - Antonio Haddad - 11/15/2023 9:25 AM EDT Tc from pt requesting a HDF appt. Hospital: [facility] Date of admission: 11/09 Discharge date: 11/13 Diagnosed: Neuropathy documented in this encounter Plan of Treatment Upcoming Encounters Date Type Department Care Team (Late st Contact Info) Description 09/25/2024 2:00 PM EST Office Visit [address] [address] Wanda Bonilla ANP [address] [place] [address] 10/21/2024 10:00 AM EDT Office Visit [address] [address] Shivani Small CNM [address] [place] [address] documented as of this encounter Visit Diagnoses Not on filedocumented in this encounter Additional Health Concerns Assessment Noted Time PHQ-9 Depression Total Score: 0 08/25/19 23 1:48 PM EST documented as of this encounter Care Teams Reducing Machine Operator Relationship Specialty Start Date End Date Wanda Bonilla ANP [address] [place] [address] PCP - General Family Medicine 09/03/20 documented as of this encounter
--- OUTSIDE RECORDS SUMMARY | 2024-08-29 09:55 | XMS_ITS | Encounter Summary ---
Author Organization [employer] Address [address] [facility] [address] [place] [address] Care Team Providers Care Hspt Tutor Name Role Phone Wanda Bonilla Primary Care Provider [phone] Reason for Visit * Reason Comments Med Refill Encounter Details Date Type Department Care Team ([facility] st Contact Info) Description 11/05/2023 Refill [facility] [address] [place] [address] Wanda Bonilla ANP [address] [place] [address] Social History Tobacco Use Types Packs/Day Years [...] Description 09/25/2024 2:00 PM EST Office Visit [address] [address] Wanda Bonilla ANP [address] [place] [address] 10/21/2024 10:00 AM EDT Office Visit [address] [address] Shivani Small CNM [address] [place] [address] documented as of this encounter Visit Diagnoses Not on filedocumented in this encounter Additional Health Concerns Assessment Noted Time PHQ-9 Depression Total Score: 0 08/25/19 23 1:48 PM EST documented as of this encounter Care Teams Hspt Tutor Relationship Specialty Start Date End Date Wanda Bonilla ANP [address] [place] [address] PCP - General Family Medicine 09/03/20 documented as of this encounter
--- OUTSIDE RECORDS SUMMARY | 2024-08-29 09:55 | XMS_ITS | Encounter Summary ---
Author Organization [employer] Address [address] [facility] [address] [place] [address] Care Team Providers Care Trade Clerk Name Role Phone Wanda Bonilla Primary Care Provider [phone] Reason for Visit * Reason Onset Date Comments Appointment Request 02/04/2024 Encounter Details Date Type Department Care Team ([facility] st Contact Info) Description 02/04/2024 Telephone [facility] [address] [place] [address] Wanda Bonilla ANP [address] [place] [address] Appointment Request Social History Tobacco Use Types [...] encounter Miscellaneous Notes * Telephone Encounter - Kermit Chance - 02/04/2024 10:47 AM EDT Tc from pt requesting a sooner appt with PCP, pt is scheduled for 03/07/24, pt stated spoke to RN fora sooner date. Appt is still expected. Please contact at [phone] documented in this encounter Plan of Treatment Upcoming Encounters Date Type Department Care Team (Late st Contact Info) Description 09/25/2024 2:00 PM EST Office Visit [facility] [address] [place] [address] Wanda Bonilla ANP [address] [place] [address] 10/21/2024 10:00 AM EDT Office Visit [facility] [address] [place] [address] Shivani Small CNM [address] [place] [address] documented as of this encounter Visit Diagnoses Not on filedocumented in this encounter Additional Health Concerns Assessment Noted Time PHQ-9 Depression Total Score: 5 11/23/19 24 1:33 PM EDT documented as of this encounter Care Teams Trade Clerk Relationship Specialty Start Date End Date Wanda Bonilla ANP [address] [place] [address] PCP - General Family Medicine 09/03/20 documented as of this encounter
--- OUTSIDE RECORDS SUMMARY | 2024-08-29 09:55 | XMS_ITS | Clinical Summary ---
Author Organization [employer] Address [address] [place] [address] Care Team Providers Care Legal Cashier Name Role Phone Sandra Vieira Primary Care Provider [phone] Allergies Active Allergy Reactions Criticality Noted Date Comments Dulaglutide 04/21/2021 Other reaction(s): GI Problems Morphine Abdominal Pain 02/15/2024 Medications Emollient (Eucerin Original Healing) lotion use twice daily 022 Active traZODone (Desyrel) 150 MG tablet take 1 tablet by oral route at bedtime as needed Active triamcinolone (Kenalog) 0.1 % creamIndications: Perforating dermatosis Apply topically if needed in the morning and at bedtime (pain and swelling). 45 g 2 023 Active hydrOXYzine HCl (Atarax) 25 MG tablet TAKE 1 TABLET BY MOUTH THREE TIMES DAILY IN THE MORNING, AT NOON, AND AT BEDTIME FOR ITCHING 90 tablet 023 Active albuterol (2.5 MG/3ML) 0.083% nebulizer solutionIndicatio ns:Asthma, unspecified asthma severity, unspecified whether complicated, unspecified whether persistent INHALE 1 AMPULE USING A NEBULIZER THREE TIMES DAILY NEEDED FOR WHEEZING OR SHORTNESS OF BREATH 90 mL 023 Active tamsulosin (Flomax) 0.4 MG 24 hr capsule TAKE 1 CAPSULE BY MOUTH EVERY DAY AT 6 IN THE EVENING 30 capsule 023 Active albuterol (Ventolin HFA) 108 (90 Base) MCG/ACT inhalerIndication s:Moderate persistent asthma without complication INHALE 2 PUFFS EVERY 4 TO 6 HOURS NEEDED 18 g 1 Active prazosin (Minipress) 2 MG capsule Take 2 mg by mouth at bedtime. Active pyridoxine (Vitamin B-6) 100 MG tablet Take 100 mg by mouth in the morning. Active QUEtiapine (SEROquel) 100 MG tablet Take 150 mg by mouth at bedtime. Active QUEtiapine (SEROquel) 25 MG tablet Take 25 mg by mouth if needed in the morning and at bedtime. Active meclizine (Antivert) 25 MG tablet TAKE 1 TABLET BY MOUTH THREE TIMES DAILY IN THE MORNING, EVENING, AND BEDTIME NEEDED FOR DIZZINESS 30 tablet Active famotidine (Pepcid) 20 MG tabletIndications :Heartburn Take 1 tablet twice daily as needed for acid reflux 60 tablet Active insulin lispro (HumaLOG) 100 UNIT/ML injectionIndicati ons:Type 2 diabetes mellitus with hyperlipidemia ([facility]/HCC) ([facility]) INJECT 20 UNITS SUBCUTANEOUSLY THREE TIMES DAILY WITH MEALS 15 mL Active estradiol (Estrace) 0.1 MG/GM vaginal cream Insert 1 g into the vagina in the morning. 1g vaginally x 14d, then twice weekly thereafter 45 g Active Blood Pressure Monitoring (Omron 3 Series BP Monitor) device USE TO CHECK BLOOD PRESSURE DIRECTED Active hydrocortisone 1 % creamIndications: Rash Apply topically 2 times daily. 45 g Active FREESTYLE LITE test strip TEST BLOOD SUGAR THREE TIMES DAILY 100 strip Active budesonide (Pulmicort Flexhaler) 180 MCG/ACT inhalerIndication s:Asthma, unspecified asthma severity, unspecified whether complicated, unspecified whether persistent Inhale 2 puffs 2 times daily. Rinse mouth after use. 1 each 024 2024 Active lansoprazole (Prevacid) [address] capsuleIndication s:Heartburn TAKE 1 CAPSULE BY MOUTH EVERY DAY BEFORE BREAKFAST. DO NOT BREAK, CRUSH, DISSOLVE OR CHEW 90 capsule Active Stool Softener/Laxative 50-8.6 MG tablet TAKE 2 TABLETS BY MOUTH EVERY DAY AT BEDTIME Active Diclofenac Sodium 1 % gel APPLY 2 GRAMS TOPICALLY EVERY 6 HOURS 100 g 024 Active D3-1000 25 MCG (1000 UT) capsuleIndication s:Low vitamin D level TAKE 1 CAPSULE BY MOUTH EVERY MORNING 90 capsule 2 024 Active rosuvastatin (Crestor) 5 MG tabletIndications :Type 2 diabetes mellitus with hyperlipidemia (CMS/HCC) ([facility]) TAKE 1 TABLET BY MOUTH EVERY EVENING 90 tablet 3 024 Active pioglitazone (Actos) 15 MG tabletIndications :Type 2 diabetes mellitus with hyperlipidemia (CMS/HCC) ([facility]) TAKE 1 TABLET BY MOUTH EVERY MORNING 90 tablet 3 024 Active lisinopril 40 MG tablet TAKE 1 TABLET BY MOUTH EVERY EVENING 90 tablet 3 024 Active Aspirin Low Dose 81 MG EC tablet TAKE 1 TABLET BY MOUTH EVERY EVENING 90 tablet 3 024 Active TRUEplus Lancets 33G [facility] [place] BLOOD SUGAR THREE TIMES DAILY 100 each 11 024 Active lidocaine (Lidoderm) 5 % patchIndications: Pain APPLY 1 PATCH TOPICALLY TO SKIN, LEAVE ON FOR 12 HOURS AND OFF FOR 12 HOURS DIRECTED 30 patch 2 024 Active amLODIPine (Norvasc) 10 MG tabletIndications :Essential hypertension TAKE 1 TABLET BY MOUTH EVERYDAY AT NOON 90 tablet 3 024 Active Ozempic, 0.25 or 0.5 MG/DOSE, 2 MG/3ML solution pen-injectorIndic ations:Diabetic polyneuropathy associated with type 2 diabetes mellitus ([facility]) INJECT 0.5 MG SUBCUTANEOUSLY EVERY 7 DAYS IN THE ABDOMEN, THIGHS, OR UPPER ARM, ROTATE INJECTION SITES. 3 mL 1 025 Active insulin pen needle (Easy Touch Pen [place]) 31G X 8 mm miscIndications:D iabetic polyneuropathy associated with type 2 diabetes mellitus ([facility]) USE DIRECTED FOUR TIMES DAILY 100 each 025 Active Lantus SoloStar 100 UNIT/ML penIndications:Ty pe 2 diabetes mellitus with hyperglycemia, with long-term current use of insulin ([facility]) INJECT 54 UNITS SUBCUTANEOUSLY EVERY DAY 15 mL 3 025 Active gabapentin (Neurontin) 300 MG capsule TAKE 1 CAPSULE BY MOUTH TWICE DAILY IN THE MORNING AND IN THE EVENING and TAKE 2 CAPSULES BY MOUTH EVERY DAY AT BEDTIME 120 capsule 3 025 Active rOPINIRole (Requip) 0.5 MG tabletIndications :Restless legs TAKE 1 TABLET BY MOUTH AT BEDTIME 1-3 HOURS BEFORE BEDTIME 30 tablet 2 025 Active carvedilol (Coreg) 6.25 MG tabletIndications :Primary hypertension TAKE 1 TABLET BY MOUTH TWICE DAILY AT NOON AND BEDTIME 180 tablet 025 Active insulin pen needle (UltiCare Short Pen [place]) 31G X 8 mm miscIndications:D iabetic polyneuropathy associated with type 2 diabetes mellitus (CMS/HCC) USE FOUR TIMES DAILY WITH INSULIN 100 each 11 024 2024 Discontinued insulin glargine (Lantus SoloStar) 100 UNIT/ML penIndications:Ty pe 2 diabetes mellitus with hyperglycemia, with long-term current use of insulin (CMS/HCC) INJECT 54 UNITS SUBCUTANEOUSLY EVERY DAY 15 mL 3 024 2024 Discontinued gabapentin (Neurontin) 300 MG capsule TAKE 1 CAPSULE BY MOUTH TWICE DAILY IN THE MORNING AND IN THE EVENING and TAKE 2 CAPSULES BY MOUTH EVERY DAY AT BEDTIME 120 capsule 3 024 2024 Discontinued Ozempic, 0.25 or 0.5 MG/DOSE, 2 MG/3ML solution pen-injectorIndic ations:Diabetic polyneuropathy associated with type 2 diabetes mellitus (CMS/HCC) INJECT 0.5 MG SUBCUTANEOUSLY EVERY 7 DAYS IN THE ABDOMEN, THIGHS, OR UPPER ARM, ROTATE INJECTION SITES. 3 mL 1 024 2024 Discontinued rOPINIRole (Requip) 0.5 MG tabletIndications :Restless legs TAKE 1 TABLET BY MOUTH 1 TO 3 HOURS BEFORE BEDTIME 30 tablet 2 024 2024 Discontinued carvedilol (Coreg) 6.25 MG tabletIndications :Primary hypertension Take 1 tablet (6.25 mg) by mouth 2 times daily. 60 tablet 2 024 2024 Discontinued predniSONE (Deltasone) 20 MG tablet Take 2 tablets (40 mg) by mouth Once per day for 5 days. 10 tablet 025 2024 Hospital, Clinic, or Other Facility Administered Medication Ordered Dose Route Frequency Start Date End Date Status nitroglycerin (Nitrostat) SL tablet 0.4 mgIndications:Chest pain, unspecified type 0.4 mg SL Every 5 min PRN 10/22/2023 Active Active Problems Problem Noted Date Diagnosed Date Other microscopic hematuria 04/30/2024 Assessment & Plan (04/30/2024 3:29 PM EDT): Given recurrent UTI sxs and significant bacteriuria, I will rx with Cipro x 5d for UTI. I will send a rx clotrimazole vaginal cream x 7 nights prn vaginitis sxs associated to abs use. Encouraged to increase PO water, cranberry juice I told her that she should filter urine in case of kidney stone , I will refer to urology She will fu with PCP after MRI to fu on ovarian mass Dysuria 04/30/2024 Chest pain 12/07/2023 Overview (12/07/2023): [place] [facility] [place] ?NSTEMI Optimize BP, DM, minimize risk of recurrence She tells me she has cards follow-up in place. Continue aspirin, statin, beta-blockers. She is not on DAPT nor was she sent for cath while admitted as far as I can tell. I will wait for her to see cards b/f adding ticagrelor or similar, as I suspect there was a reason. Perhaps cirrhosis? Will hold off on adding NSTEMI dx to be reflected on her list. Type 2 diabetes mellitus with hyperlipidemia ([facility]/HCC) 08/29/2023 Class 1 obesity 08/02/2023 08/02/2023 Diabetic retinopathy 08/02/2023 08/02/2023 Adverse effect of COVID-19 vaccine 04/24/2023 Calcaneal spur, left 04/24/2023 Renal stones 04/24/2023 Chronic headaches 04/24/2023 PAD (peripheral artery disease) 04/24/2023 Sleep disorder, unspecified 04/24/2023 Somnolence, daytime 04/24/2023 Bloody discharge from right nipple 02/23/2023 Overview (08/02/2023): [facility]ADS 0 mammo 12/02/22, then diag mammo and R breast US 12/22/22. These did not reveal concerning findings, but they also did not provide explanation for discharge. Psychiatrist decreased seroquel. She was referred to [facility] for further eval. History of prolactinoma 12/19/2022 Overview (12/19/2022): From original endo referral made in 2014 patient w/ elevated prolactin, per paper chart MRI 2000, 2001 not definitive for defined microadenoma but suggested by persistent enlargement of right side of pituitary patient refuses additional imaging, ? could benefit from cabergoline. Perforating dermatosis 08/18/2022 Assessment & Plan (08/18/2022 9:37 AM EST): Informed patient this may be related to her diabetes, recommended Triamcinolone 0.1% ointment 2x daily, -Patient to RTC in 3 months Onychomycosis 05/13/2018 Anxiety 02/04/2018 Depressed bipolar I disorder 12/21/2017 Cirrhosis of liver 07/27/2017 Overview (10/01/2023): [facility] D/t HCV (suspect s/p blood transfusion years ago) Has not been able to tolerate HCV medications thus far tried incl mavyret. EGD 04/2022 GE junction at 36 cms. No varices, esophagitis or Harrison's. stomach w/ Mild portal gastropathy and antral erythema. Then had US 08/30/23 IMPRESSION: Findings consistent with hepatic cirrhosis with elevated portal pressures and [splenic] varices. No focal hepatic mass identified. Dystrophia unguium 05/12/2015 Prolactinoma 05/12/2015 Diabetic polyneuropathy 07/09/2014 Carpal tunnel syndrome 06/03/2013 4 Benign neoplasm of pituitary gland 06/03/2013 08/29/2023 Hyperlipidemia 04/29/2013 Type 2 diabetes mellitus, uncontrolled 3 Panic disorder without agoraphobia 02/25/2013 Asthma 02/28/2012 Assessment & Plan (09/05/2023 2:48 PM EST): Rapid viral tests are negative. Has acute bronchospasm despite albuterol nebs Start medrol pack, continue albuterol neb q6h x 5d then prn Counseled to quit smoking Use Tylenol bid Or diclofenac gel bid prn pleuritic CP. Chronic hepatitis C 01/02/2012 Overview (02/23/2023): Last US 07/2022 ABD US SHOWED: 1. Cirrhotic liver with borderline splenomegaly. 2. Nonobstructive left renal calculi. 3. Nonobstructive right renal calculi versus vascular calcifications. 4. Status post cholecystectomy. Hypertension 12/14/2011 Resolved Problems Problem Noted Date Diagnosed Date Resolved Date Bipolar disease in 08/02/2023 08/02/2023 08/02/2023 Breast mass 08/02/2023 08/02/2023 08/02/2023 UTI symptoms 08/02/2023 08/02/2023 08/02/2023 Flank pain 04/24/2023 08/02/2023 Hepatitis C 04/24/2023 08/02/2023 Urinary tract infection 04/24/2023 01/0 10/2023 Chronic hepatitis 04/24/2023 08/02/2023 UTI (urinary tract infection) 03/09/2023 08/02/2023 Assessment & Plan (03/09/2023 2:36 PM EDT): Drink plenty of water Do not hold the urine Insulin dependent type 1 diabetes mellitus 09/24/2018 08/02/2023 Encounters Date Type Department Care Team Description 08/26/2024 Refill [facility] [address] [place] [address] Sandra Vieira ANP Primary hypertension 08/16/2024 Refill [facility] [address] [place], [place] [phone] Sandra Vieira ANP Restless legs 08/15/2024 Travel 08/14/2024 Telephone [facility] [address] [place], [place] [phone] Adolfo Fernando, PharmD 08/13/2024 Refill [facility] [address] [place] [address] Sandra Vieira ANP Type 2 diabetes mellitus with hyperglycemia, with long-term current use of insulin ([facility]) 08/11/2024 Refill [facility] [address] [place] [address] Sandra Vieira ANP Diabetic polyneuropathy associated with type 2 diabetes mellitus ([facility]/HCC) 08/04/2024 9:40 AM EST Office Visit [facility] [address] Adolfo Benitez MD Mild persistent asthma with acute exacerbation (Primary Dx); Hypertension, unspecified type; Viral URI 08/04/2024 Telephone [facility] [place] [place] [address] Sandra Vieira ANP Nurse Triage 08/03/2024 Refill [facility] [place] [place] [address] Sandra Vieira ANP Essential hypertension 08/01/2024 Refill [facility] [place] [place] [address] Sandra Vieira ANP Diabetic polyneuropathy associated with type 2 diabetes mellitus ([facility]) 07/28/2024 Telephone [facility] [place] [place] [address] Erika Rosa [place] August recall 07/28/2024 Refill [facility] [place] [address] Sandra Vieira ANP Essential hypertension 07/25/2024 Telephone [facility] [place] [place] [address] Sandra Vieira ANP Results 07/24/2024 1:15 PM EST Office Visit [facility] [place] [place] [address] Sandra Vieira ANP Diabetic polyneuropathy associated with type 2 diabetes mellitus ([facility]) (Primary Dx); Primary hypertension; Renal stones; Dysuria 07/24/2024 Orders Only [facility] [address] [place] [address] Sandra Vieira ANP 07/24/2024 Travel 07/18/2024 Refill [facility] [place] [place] [address] Sandra Vieira ANP Pain 07/08/2024 Telephone [facility] [address] [facility] [place] [address] Sandra Vieira ANP Appointment Request 07/03/2024 Orders Only [facility] External Provider, [facility] 06/30/2024 Telephone [facility] [address] [facility] [place] [address] Sandra Vieira ANP Results 06/18/2024 Telephone [facility] [address] [place] [address] Sandra Vieira ANP c/b requested 06/17/2024 Orders Only GENERIC EXTERNAL DATA DEPARTMENT Provider, Generic External Data 06/16/2024 Telephone [facility] [address] [place] [address] Smiley Scott, OD 06/11/2024 Telephone [facility] [place] [address] Sandra Vieira ANP 06/10/2024 Telephone [facility] [place] [address] Erika Rosa MA PA for Ozempic 2mg/3ml 06/09/2024 Telephone [facility] [place] [address] Sandra Vieira ANP 06/06/2024 Telephone [facility] [place] [address] Janelle Cordova RN Ozempic PA 06/05/2024 2:30 PM EST Office Visit [facility] [place] [address] Sandra Vieira ANP Diabetic polyneuropathy associated with type 2 diabetes mellitus (CMS/HCC) (Primary Dx); Chronic hepatitis C without hepatic coma (CMS/HCC); UTI symptoms; Bilateral carpal tunnel syndrome; Foot mass, left; Low back pain at multiple sites; Ovarian mass, right; Pituitary microadenoma (CMS/HCC) 06/05/2024 Travel 06/05/2024 Refill [facility] [address] [place] [address] Sandra Vieira ANP 06/04/2024 Orders Only [facility] [address] [place] [id number] Sandra Vieira, TAHIR Primary hypertension (Primary Dx) from Last 3 Months Immunizations Name Administration Dates Next Due Hep A, Adult 02/26/2020 Hep A, ped/adol, 2 dose 07/08/2009,07/14/2008 Hep B, Adolescent or Pediatric 07/14/2008,2007,01/26/2004 Hep B, adult 02/26/2020, 7,11/10/2016,03/05 Influenza injectable quadriv alent IIV4 with preservative 05/13/2018 Influenza injectable quadriv alent preservative free 07/20/2017 Moderna Covid-19 Vaccine 12+ 12/29/2020,12/02/19 21 Pneumococcal Polysaccharide PPSV23 07/09/2014 TD (adult), 2 Lf tetanus tox oid, preservative free, adsorbed 07/24/2024,01/25/2004 Tdap 07/09/2014 Family History Medical History Relation Name Comments Colon cancer Father's Brother Relation Name Status Comments Father's Brother Social History Tobacco Use Types Packs/Day Years Used Date Smoking Tobacco: Some Days Cigarettes Passive Smoke Exposure: Past Smokeless Tobacco: Never Tobacco Cessation:Ready to Q uit: Not Asked; Counseling Given: Not Answered Alcohol Use Standard Drinks/Week Comments Not Currently [...] Orientation Straight 05/29/2022 10 :15 AM EDT Last Filed Vital Signs Vital Sign Reading [...] oz) 08/04/2024 9:32 A M EST Height 160 cm (5' 3 ) 04/30/2024 2:48 PM EDT Body Mass Index 31.07 04/30/2024 2:48 PM EDT Plan of Treatment Upcoming Encounters Date Type Department Care Team (Late st Contact Info) Description 09/25/2024 2:00 PM EST Office Visit [facility] [address] [place] [phone] Sandra Vieira ANP [address] [place] [phone] 10/21/2024 10:00 AM EDT Office Visit [facility] [address] [place] [phone] Shivani Small CNM [address] [place] [address] Health Maintenance Due Date Last Done Comments CT Colonography 1963 Colonoscopy 1963 Colorectal Cancer Screening 1963 FIT DNA/Cologuard 1963 FIT 1963 FOBT 1963 Sigmoidoscopy 1963 Zoster Vaccines (1 of 2) 2013 Pneumococcal Vaccine: 50+ Years (2 of 2 - PCV) 07/09/2015 07/09/2014 Pneumococcal Vaccine: Pediatrics (0 to 5 Years) and At-Risk Patients (6 to 49) Years) (2 of 2 - PCV) 07/09/2015 07/09/2014 Hepatitis A Vaccines (2 of 2 - Risk 2-dose series) 08/28/2020 02/26/2020, 07/08/2009, 07/14/2008 RSV Patients and Patients Aged 60 years or older (1 - Risk 60-74 years 1-dose series) 2023 COVID-19 Vaccine ( - season) 2024 12/29/2020, 12/01/2020 Influenza Vaccine (#1) 2024 05/13/2018, 2016 Diabetes: Foot Exam 04/26/2024 04/26/2023, 04/26/2023, 04/26/2023, Additional history exists Diabetes: Urine Protein Screening 05/01/2024 05/01/2023, 04/30/2023, 04/13/2022, Additional history exists Lipid Panel 05/01/2024 05/01/2023, 05/20/2021 SDOH Screening 08/30/2024 08/30/2023 Diabetes: Hemoglobin A1C 09/05/2024 024, 03/07/2024, 09/20/2023, Additional history exists Eye Exam 09/26/2024 09/27/2023, 08/31, 09/27/2023, Additional history exists Depression Screening 11/22/2024 11/23/2023, 11/23/19 24 Alcohol/Substance Use Screening 07/24/2025 07/24/2024 Tobacco Screening 08/04/2025 08/04/2024 Cervical Cancer Screening 05/02/2026 HPV/Cotest 05/02/2026 05/02/2021 Mammogram 07/03/2026 07/03/2024, 11/2023, 01/04/2024, Additional history exists Pap Smear 06/17/2029 06/17/2024, 05/02/2021 DTaP/Tdap/Td Vaccines (3 - Td or Tdap) 07/24/2034 07/24/2024, 07/09/2014, 01/25/2004 Hepatitis B Vaccines Completed 02/26/2020, 07/20/2017, 11/10/2016, Additional history exists HIV Screening Completed 03/24/2024, 04/30, 10/06/2020 HIB Vaccines Aged Out No longer eligi ble based on patient's age to complete this topic HPV Vaccines Aged Out No longer eligi ble based on patient's age to complete this topic IPV Vaccines Aged Out No longer eligi ble based on patient's age to complete this topic Meningococcal Vaccine Aged Out No willy tona eligible based on patient's age to complete this topic RSV under 20 months Aged Out No longe r eligible based on patient's age to complete this topic Rotavirus Vaccines Aged Out No longer eligible based on patient's age to complete this topic Procedures Procedure Name Priority Date/Time Associated Diagnosis Comments POCT INFLUENZA B (ID NOW RAPID MOLECULAR) Routine 08/04/2024 9:46 AM EST Viral URI POCT INFLUENZA A (ID NOW RAPID MOLECULAR) Routine 08/04/2024 9:46 AM EST Viral URI POCT RAPID COVID ANTIGEN Routine 08/04/2024 9:46 AM EST Viral URI CULTURE, URINE, ROUTINE Routine 07/24/2024 9:51 PM EST URINALYSIS, COMPLETE, WITH REFLEX TO CULTURE Routine 07/24/2024 2:48 PM EST Dysuria BI MAMMOGRAM SCREENING TOMOSYNTHESIS BILATERAL Routine 07/03/2024 9:53 AM EST PAP SMEAR Routine 06/17/2024 10:30 AM EST POCT URINALYSIS DIPSTICK Routine 06/05/2024 3:34 PM EST UTI symptoms POCT GLYCATED HEMOGLOBIN, TOTAL Routine 06/05/2024 3:27 PM EST Diabetic polyneuropathy associated with type 2 diabetes mellitus (CMS/HCC) POCT GLUCOSE Routine 06/05/2024 3:26 PM EST Diabetic polyneuropathy associated with type 2 diabetes mellitus (CMS/HCC) HIV 1/2 ANTIGEN/ANTIBODY, FOURTH GENERATION W/RFL Routine 03/24/2024 3:20 PM EDT ALBUMIN, RANDOM URINE W/CREATININE Routine 05/01/2023 11:30 AM EDT Type 2 diabetes mellitus with hyperlipidemia (CMS/HCC) LIPID PANEL, STANDARD Routine 05/01/2023 11:30 AM EDT Type 2 diabetes mellitus with hyperlipidemia (CMS/HCC) HPV MRNA E6/E7 Routine 05/02/2021 12:00 AM EDT from Last 3 Months or Most Recently Relevant to Health Maintenance Results * Influenza B (ID NOW Rapid Molecular) (08/04/2024 9:46 AM EST) Pathologist [facility] Influenza B Negative Negative, Indeterminate [facility] Swab 08/04/2024 9:46 AM EST us Adolfo Benitez MD POINT OF CARE TEST ENTER/EDIT OR DERABLES Final Result Performing Organization Address [facility] Co de Phone Number [facility] [address] [place] [phone] * Influenza A (ID NOW Rapid Molecular) (08/04/2024 9:46 AM EST) Pathologist [facility] Influenza A Negative Negative, Indeterminate [facility] Swab 08/04/2024 9:46 AM EST us Adolfo Benitez MD POINT OF CARE TEST ENTER/EDIT OR DERABLES Final Result [facility] [address] [place] [address] [phone] * POCT Rapid COVID Ag (08/04/2024 9:46 AM EST) Rapid COVID Ag Negative [facility] Swab 08/04/2024 9:46 AM EST Adolfo Benitez MD POINT OF CARE TEST ENTER/EDIT OR DERABLES Final Result Performing Organization Address City/[facility]/ZIP Co de Phone Number [facility] [address] [place] [address] [phone] * Culture, Urine, Routine (07/24/2024 9:51 PM EST) Urine Urine specimen obtained by clean catch procedure / Unknown 07/24/2024 9:51 PM EST 07/24/2024 9:51 PM EST Comment:UACC Narrative [facility] - 07/26/2024 11:19 AM EST Urine Culture Report Result Urine Culture > 100,000 cfu/ml Urine Culture Mixed bacterial nova characteristic of Urine Culture urogenital contamination. Specimen Source: Urine clean catch Sandra [facility] MICROBIOLOGY - GENERAL ORDER RAY Final Result Performing Organization Address [facility] Co de Phone Number [facility] [address] [place] [address] [phone] * (ABNORMAL) Urinalysis, Complete, with Reflex to Culture (07/24/2024 2:48 PM EST) Color Urine Dark Yellow [facility] Appearance Urine Cloudy [facility] PH 5.5 5.0 - 9.0 [facility] Glucose Urine UA 100(A) Negative mg/dL [facility] Urine Blood Negative Negative [facility] Specific [place] - Urine 1.025 1.005 - 1.025 [facility] Urine Protein Trace Neg-Trace mg/dL [facility] Urine Ketones Trace Negative mg/dL [facility] Nitrite Urine Negative Negative [facility] Leukocyte Esterase Urine Small (1+)(A) Negative [facility] RBC Urine 0-2 0 - 2 /HPF [facility] Urine WBC 11-20(A) 0 - 5 /HPF [facility] Urine Squamous Epithelial Cell >20 0 - 2 /HPF [facility] CALCIUM OXALATE CRYSTAL, UR Present [facility] Urine Bacteria 4+ None Seen [facility] Hyaline Casts, Urine 3-5 0 - 2 /LPF [facility] Urine 07/24/2024 2:48 PM EST 07/24/2024 6:01 PM EST Narrative [facility] - 07/24/2024 6:55 PM EST Urine, Clean Catch us Sandra Vieira [facility] URINE ORDERABLES Final Resul t [facility] [address] [place] [address] [phone] * BI Mammogram Screening Tomosynthesis Bilateral (07/03/2024 9:53 AM EST) Anatomical Region Laterality Modality Breast Bilateral Mammography 07/03/2024 9:53 AM EST Narrative 07/09/2024 10:57 AM EST ? [facility] [place] ? [address] ?[place] [address] ? Mammography Report ? Signed ? Patient: Colon,Milsa ?MR#: [id number] ? : 1965 ?Acct:[id number] ? Age/Sex: 59 / F ?ADM Date: 12/05/24 ? Loc: HO.MAMMO ? Attending Dr: Herminio Britton MD ? Ordering Physician: Herminio Britton MD ?Results: 1Negativ ?? e ? Date of Service: 07/03/24 ?Follow Up: 1 Year From Orig ?? inal Mammogram ? Procedure(s): MM tomosynthesis screening BI ?? Accession Number(s): [id number] ? cc: SANDRA VIEIRA NP; Herminio Britton MD ? EXAMINATION: ?? MM SCREENING DIGITAL BREAST TOMOSYNTHESIS, BILATERAL ? CLINICAL INFORMATION: ? Screening. Asymptomatic. ? COMPARISON: ?? Mammography: Comparison is made with available priors ? TECHNIQUE: ?? Digital breast mammography with tomosynthesis is performed in both the ?? craniocaudal and mediolateral oblique views along with computer-aided ?? detection (CAD). ? FINDINGS: ?? The breasts are heterogeneously dense, which may obscure small masses ?? (ACR BI-RADS breast composition Category c). ? There are no significant masses, abnormal calcifications, or other ?? abnormalities. ? MM/MM tomosynthesis screening BI ?? IMPRESSION: ?? No mammographic evidence of malignancy. ? ASSESSMENT: ? BI-RADS BI-RADS 1 - Negative ? RECOMMENDATION: ?? Routine annual mammography screening. ? 1 year F/U ? This examination should not preclude the clinical evaluation of a ?? suspicious palpable abnormality. ? This patient's information was entered into a reminder system with a ?? target due date for their next mammogram. ? Electronically signed by: ??Alysa Faith DO ??07/09/2024 10:54 AM EST ?? RP ? Dictated By: ?Alysa Faith DO ? Signed By: ?<Electronically signed by Alysa Faith, DO in OV> ? 07/09/24 1054 ? DD/ 0953 ? TD/TT: 07/03/24 1018 ? Coding Coordinator: ? Procedure Note Donotuseinterpreter, Image - 07/09/2024 [facility] [address] [place], [place] [address] Mammography Report Signed Patient: Barrera Max#: [id number] : 1965Acct:[id number] Age/Sex: 59 / FADM Date: 07/03/24 Loc: HO.MAMMO Attending Dr: Herminio Britton MD Ordering Physician: Herminio Britton MDResults: 1Negativ e Date of Service: 07/03/24Follow Up: 1 Year From Orig inal Mammogram Procedure(s): MM tomosynthesis screening BI Accession Number(s): [id number] cc: SANDRA VIEIRA CHARGE ACCOUNTS AUDIT CLERK; Herminio Britton MD EXAMINATION: MM SCREENING DIGITAL BREAST TOMOSYNTHESIS, BILATERAL CLINICAL INFORMATION: Screening. Asymptomatic. COMPARISON: Mammography: Comparison is made with available priors TECHNIQUE: Digital breast mammography with tomosynthesis is performed in both the craniocaudal and mediolateral oblique views along with computer-aided detection (CAD). FINDINGS: The breasts are heterogeneously dense, which may obscure small masses (ACR BI-RADS breast composition Category c). There are no significant masses, abnormal calcifications, or other abnormalities. MM/MM tomosynthesis screening BI IMPRESSION: No mammographic evidence of malignancy. ASSESSMENT: BI-RADS BI-RADS 1 - Negative RECOMMENDATION: Routine annual mammography screening. 1 year F/U This examination should not preclude the clinical evaluation of a suspicious palpable abnormality. This patient's information was entered into a reminder system with a target due date for their next mammogram. Electronically signed by: Alysa Faith DO 07/09/2024 10:54 AM EST Dictated By: Alysa Faith DO Signed By: <Electronically signed by Alysa Faith DO in OV> 07/09/24 1054 DD/ 0953 TD/TT: 07/03/24 1018 Coding Coordinator: [facility] External Provider IMG BI PROCEDURES Edited Result - Final * Pap Smear (06/17/2024 10:30 AM EST) 06/17/2024 10:3 0 AM EST 06/18/2024 9:15 AM EST [facility] - 06/20/2024 9:28 AM EST ----- ------- Name: Colon,Milsa ?Age/Sex: 59/F ? : 1965 Unit#: [id number] ?? Attend Dr: Herminio Britton MD ?Re06/17/24 ?Status: DEP REF ? Location: HO.LNP ?Disch: ? ----- ------- SPEC : [id number] ?RECD: 06/18/24-914 ? STATUS: ??SOUT ? REQ NUM: [id number] ? MILY: 06/17/24-1030 ? SUBM DR: Herminio Britton MD ? ENTERED: ??06/18/24-1104 ?SP TYPE: Pap Smr ?OTHR DR: SANDRA VIEIRA NP ? ORDERED: ??Pap Smear ? Interpretation ?? Satisfactory for evaluation. ?? Negative for intraepithelial lesion or malignancy. ?? No endocervical cells seen. ? HPV High Risk: ??Negative ? HPV Genotyping 16: ??Negative ?? HPV Genotyping 18: ??Negative ?Clinical Information LMP: Postmenopausal Previous PAP test: Unknown date/findings ? Material Received ?? ThinPrep-Cervical Copies To: ?? SANDRA VIEIRA NP ?? [facility] ?? [address] ?? [place] [address] ?? [phone] ?? Herminio Britton MD ?? [facility] ?? [address] ?? [place] [address] ?? [phone] ----- ------- Signed (signature on file) AVELINO Romero (ASCP) 06/20/24 0928 ? ----- ------- ? END OF REPORT ? Generic External Data Provider LAB CYTOLOGY ORDE RABLES Final Result [facility] [address] [place] [address] [phone] * POCT Urinalysis (06/05/2024 3:34 PM EST) Color, UA Yellow Clarity, UA Clear Glucose, UA Negative Bilirubin, UA Negative Ketones, UA Negative Spec Grav, UA 1.030 Blood, UA Negative Negative, None Detected pH, UA 6.0 Protein, UA Trace Urobilinogen, UA 0.2 Leukocytes, UA Negative Negative, Rare, Trace Nitrite, UA Negative Negative, None Detected Appearance, UA yellow QC Media Lot # [id number] Lot# Expiration Date ,025 Urine 06/05/2024 3:34 PM EST Sandra HARO POINT OF CARE TEST ENTER/EDIT OR DERABLES Final Result * (ABNORMAL) POCT HGB A1C (06/05/2024 3:27 PM EST) Hemoglobin A1C 7.6(A) 4.0 - 6.0 % QC Media Lot # [id number] Lot# Expiration Date , Blood 06/05/2024 3:27 PM EST Sandra HARO POINT OF CARE TEST ENTER/EDIT OR DERABLES Final Result * POCT Glucose (06/05/2024 3:26 PM EST) Pathologist [facility] Glucose Blood, POC 137 60 - 200 mg/dL QC Media Lot # [id number] Lot# Expiration Date Blood Capillary blood specimen / Unknown 06/05/2024 3:26 PM EST Count includes the [facility] POINT OF CARE TEST ENTER/EDIT OR DERABLES Final Result * HIV-1/2 Antigen and Antibodies, Fourth Generation, with Reflexes (03/24/2024 3:20 PM EDT) Pathologist [facility] HIV AB/AG Nonreactive Nonreactive [facility] Comment:HIV-1 p24 Ag and/or HIV-1/HIV-2 Ab not detected.A test result that is nonreactive does not exclude thepossibility of exposure to or infection with HIV-1 and/orHIV-2. Nonreactive results in this assay for individualswith prior exposure to HIV-1 and/or HIV-2 may be due toantigen and antibody levels that are below the limit ofdetection of this assay.The [employer] HIV Ag/Ab Combo assay result andsupplemental assay results should be interpreted inconjunction with the patient's clinical presentation,history and other laboratory results. If the results areinconsistent with clinical evidence, additional testing issuggested to confirm the result. 03/24/2024 3:20 PM EDT 03/24/2024 3:20 PM EDT Generic External Data Provider LAB BLOOD ORDERAB LES Final Result [facility] [address] [place] [address] [phone] * (ABNORMAL) Albumin, Random Urine W/Creatinine (05/01/2023 11:30 AM EDT) Pathologist [facility] Creatinine, Urine 302.38 mg/dL [facility] Microalbumin Urine 107.0 mg/L [facility] Microalbum Creatinine Ratio Ur 35.3(H) <30 ug/mg cr [facility] Comment:Albumin/Creatinine R atio Reference Ranges: Normal: < 30 ug/mg creatinine Microalbuminuria: 30 - 300 ug/mg creatinineClinical Albuminuria: > 300 ug/mg creatinine Urine (Urine, Random) 05/01/2023 11:30 AM EDT 05/01/2023 1:17 PM EDT Sandra Vieira ANP LAB URINE ORDERABLES Final Resul t Performing Organization Address [facility] de Phone Number [facility] [address] [place] [phone] * (ABNORMAL) Lipid Panel, Standard (05/01/2023 11:30 AM EDT) Triglycerides 189(H) <150 mg/dL [facility] Comment:Desirable Triglyceri de: less than 150 mg/dLBorderline High Triglyceride 150-199 mg/dLHigh Triglyceride: 200-499 mg/dLVery High Triglyceride: greater than or equal to 5OO mg/dL Cholesterol 188 <200 mg/dL [facility] Comment:Desirable Cholestero l: less than 200 mg/dLBorderline High Cholesterol: 200-239 mg/dLHigh Cholesterol: greater than 239 mg/dL LDL Cholesterol Calculated 98 <100 mg/dL [facility] Comment:Desirable LDL: less than 100 mg/dLNear Optimal/Above Optimal LDL: 110- 129 mg/dLBorderline High LDL: 130-159 mg/dLHigh LDL: 160-189 mg/dLVery High LDL: greater than or equal to 190 mg/dL HDL Cholesterol 53 >40 mg/dL [facility] Comment:Desirable HDL: great er than 40 mg/dL Note: This HDL assay may give artificially low results in patients with liver disease. Blood Venous blood specimen / Unknown 05/01/2023 11:30 AM EDT 05/01/2023 1:23 PM EDT us Sandra Vieira ANP LAB BLOOD ORDERABLES Final Resul t Performing Organization Address [facility] Co de Phone Number [facility] [address] [place] [address] [phone] * HPV mRNA E6/E7 (05/02/2021 12:00 AM EDT) HPV nRNA E6/E7 Not Detected Not Detected [facility] Comment: Methodology: Material Mover-Mediated Amplification This assay detects E6/E7 viral messenger RNA (mRNA) from 14 high-risk HPV types (16,18,31,33,35,39,45,51,52,56,58,59,66,68). ? The analytical performance characteristics of this assay have been determined by [employer]. The modifications have not been cleared or approved by the FDA. This assay has been validated pursuant to the CLIA regulations and is used for clinical purposes. ?? For additional information, please refer to http://education.Trumin[employer]/faq/UNH940q5 (This link if provided for information/ educational purposes only.) 05/02/2021 Count includes the [facility] LAB BLOOD ORDERABLES Final Resul t [facility] [address] from Last 3 Months or Most Recently Relevant to Health Maintenance [place] [address] [place] [address] C3 Care Teams Legal Cashier Relationship Specialty Start Date End Date Sandra Vieira ANP [address] [place] [phone] PCP - General Family Medicine 09/03/20
--- OUTSIDE RECORDS SUMMARY | 2024-08-29 09:55 | XMS_ITS | Encounter Summary ---
Author Organization [facility] Address [address] [place] [address] [address] [place] [address] Care Team Providers Care Log Chipper Name Role Phone Irene Wanda HARO Primary Care Provider [phone] Reason for Visit * Reason Comments Med Refill Encounter Details Date Type Department Care Team (Late Contact Info) Description 04/03/2023 Refill [facility] [address] [place] [address] [phone] Brenda Lopez MD [address] [place] [address] [phone] Social History Tobacco Use Types Packs/Day Years [...] Description 09/25/2024 2:00 PM EST Office Visit [facility] [address] [place] [address] [phone] Wanda Bonilla ANP [address] [place], [place] [phone] 10/21/2024 10:00 AM EDT Office Visit [facility] [address] [place] [address] Shivani Small CNM [address] [place] [address] documented as of this encounter Visit Diagnoses Not on filedocumented in this encounter Additional Health Concerns Assessment Noted Time PHQ-9 Depression Total Score: 0 08/25/19 23 1:48 PM EST documented as of this encounter Care Teams Log Chipper Relationship Specialty Start Date End Date Wanda Bonilla ANP [address] [place], [place] [phone] PCP - General Family Medicine 09/03/20 documented as of this encounter
== END 2024-08-29 09:27 | disposition home or self-care (01) ==
LOC: HO.US 09:26
PROVIDERS: PCP Nurse Practitioner Primary Care; Visit Provider Internal Medicine Gastroenterology
DX: K74.60 Unspecified cirrhosis of liver (principal)
CPT/HCPCS: 76705

== ENCOUNTER → 2024-08-29 09:29 | Outpatient (BNV) | payer MEDICAID, SELFPAY | PROVIDERS: PCP Nurse Practitioner Primary Care; Visit Provider Radiology Diagnostic Radiology | DX: K74.60 Unspecified cirrhosis of liver (principal); N20.0 Calculus of kidney; Z95.5 Presence of coronary angioplasty implant and graft | CPT/HCPCS: 76705 ==

== ENCOUNTER 2024-09-01 13:22 | Emergency (ER) | payer MEDICAID, SELFPAY ==
--- NOTE | 2024-09-01 | ECG_ITS ---
Test Reason : chest pain Blood Pressure : */* mmHG Vent. Rate : 84 BPM Atrial Rate : 84 BPM P-R Int : 148 ms QRS Dur : 82 ms QT Int : 402 ms P-R-T Axes : 37 -23 129 degrees QTcB Int : 475 ms Normal sinus rhythm Left ventricular hypertrophy with repolarization abnormality ( R in aVL , Marquez product , Romhilt-Putnam ) Cannot rule out Septal infarct (cited on or before 08-Jun-2024) Abnormal ECG When compared with ECG of 08-Jun-2024 11:25, Questionable change in initial forces of Septal leads Referred By: Generic ED Physician Electronically Signed By: Mamadou Zurita
--- NOTE | ~2024-09-01 | XR_ITS ---
EXAMINATION: XR CHEST CLINICAL INFORMATION: cp COMPARISON: None available. TECHNIQUE: 2 views of the chest were obtained. FINDINGS: The cardiac, hilar, and mediastinal contours are normal. Mild aortic calcification. The lungs are clear bilaterally. There is no pneumothorax or pleural effusion. There is no focal soft tissue abnormality. Cholecystectomy clips noted. Slightly abnormal appearance to the right greater than left shoulder joints, new from prior. This may be projectional from technique. XR/XR chest 2V IMPRESSION: 1. No active pulmonary disease. 2. Abnormal appearance to both shoulder joints which is new from prior, possibly secondary to technical differences/positioning, although developing AVN is a concern. Consider correlating with dedicated shoulder plain films. Electronically signed by: Mundo England MD 09/01/2024 02:20 PM DOTTIE GUSTAFSON
[2024-09-01 13:47] VITALS: BP 155/79; PULSE 90; RESP 18; TEMP 36.4; O2SAT 97; BMI 30.7
--- NOTE | 2024-09-01 13:47 | ED.URI ---
HPI - URI/Sore Throat General Chief Complaint: General Medical Stated Complaint: Chest pain, SOB, back pain Time Seen by Provider: 09/01/24 16:43 Source: patient, RN notes reviewed and old records reviewed Mode of arrival: ambulatory Limitations: no limitations (Declined Angolan interpreting services) History of Present Illness ED Provider: Alexandre HPI Narrative: 59-year-old female with a past medical history significant for coronary artery disease, chronic headaches, peripheral artery disease, diabetes, liver cirrhosis due to and she had hepatitis-C presents for evaluation of right-sided headache and chest pain. Patient reports that she has had pain for the last 2-3 days. She has most pain in the right side of her head. She was mild right-sided neck pain and some pain in the chest She reports that she occasionally feels short of breath but denies any coughing, fevers, chills She reports some nausea but no vomiting or diarrhea She has a history of asthma and reports that her symptoms are unrelieved with her inhalers Denies any recent travel or leg swelling Related Data Home Medications ?Medication ?Instructions ?Recorded ?Confirmed gabapentin 300 mg capsule 300 mg PO BID 07/28/20 08/07/24 cholecalciferol (vitamin D3) 25 25 mcg PO QAM 10/12/22 08/07/24 mcg (1,000 unit) capsule (Vitamin D3) insulin lispro 100 unit/mL 20 unit subcut TID 10/12/22 08/07/24 subcutaneous pen lidocaine 5 % topical patch 2 patch topical DAILY PRN Pain 10/12/22 08/07/24 pen needle, diabetic 31 gauge x #1,200 ea 10/12/22 08/07/24/16 (UltiCare Pen Needle) pioglitazone 15 mg tablet 15 mg PO QAM 10/12/22 08/07/24 quetiapine 25 mg tablet 25 mg PO BID PRN Sleep 05/05/23 08/07/24 albuterol sulfate 2.5 mg/3 mL 2.5 mg inhalation Q4H PRN sob 09/10/23 08/07/24 (0.083 %) solution for nebulization aspirin 81 mg tablet,delayed 81 mg PO QPM 09/24/23 08/07/24 release semaglutide 0.25 mg or 0.5 mg (2 0.5 mg subcut MO 09/24/23 08/07/24 mg/3 mL) subcutaneous pen injector (Ozempic) amlodipine 10 mg tablet 10 mg PO QAM 11/12/23 08/07/24 insulin glargine 100 unit/mL (3 60 unit subcut BEDTIME 11/12/23 08/07/24 mL) subcutaneous pen (Lantus Solostar U-100 Insulin) lisinopril 40 mg tablet 40 mg PO QPM 11/12/23 08/07/24 quetiapine 100 mg tablet 150 mg PO BEDTIME 11/12/23 08/07/24 ropinirole 0.5 mg tablet 0.5 mg PO BEDTIME 11/12/23 08/07/24 rosuvastatin 5 mg tablet 5 mg PO BEDTIME 11/12/23 08/07/24 famotidine 20 mg tablet 20 mg PO TID 11/13/23 08/07/24 fluticasone propionate 110 1 puff inhalation Q12H 11/13/23 08/07/24 mcg/actuation HFA aerosol inhaler mometasone 100 mcg/actuation HFA 2 puff inhalation Q12H PRN sob 11/13/23 08/07/24 aerosol inhaler (Asmanex HFA) sennosides 8.6 mg-docusate sodium 2 cap PO BEDTIME PRN Constipation 11/13/23 08/07/24 50 mg capsule (Senna Plus) trazodone 150 mg tablet 150 mg PO BEDTIME PRN Sleep 11/13/23 08/07/24 carvedilol 6.25 mg tablet 6.25 mg PO 12/21/23 08/07/24 Previous Rx's ?Medication ?Instructions ?Recorded pyridoxine (vitamin B6) 100 mg 100 mg PO QAM #90 tabs 12/31/23 tablet polyethylene glycol 3350 17 17 g PO DAILY 1 day #238 grams 02/07/24 gram/dose oral powder (Miralax) oxycodone 5 mg capsule 5 mg PO Q8H PRN pain #12 caps 05/20/24 cyclobenzaprine 10 mg tablet 10 mg PO TID PRN muscle spasm #15 06/08/24 tabs loratadine 10 mg tablet (Claritin) 10 mg PO DAILY #30 tabs 06/08/24 naproxen 500 mg tablet 500 mg PO BID PRN pain #14 tabs 06/08/24 sofosbuvir 400 mg-velpatasvir 100 1 tab PO DAILY 12 weeks #84 tabs 07/28/24 mg tablet (Epclusa) Allergies Allergy/AdvReac Type Severity Reaction Status Date / Time morphine AdvReac Abdominal Verified 09/01/24 13:51 Pain Review of Systems Constitutional: Constitutional: Denies body ache(s), Denies chills, Denies fever(s) and Reports headache(s) Eyes: Eyes: Denies blurry vision ENT: Reports headache(s) Cardiovascular: Cardiovascular: Reports chest pain and Reports dyspnea Respiratory: Respiratory: Denies cough and Reports dyspnea Gastrointestinal: Gastrointestinal: Denies nausea and Denies vomiting Musculoskeletal: Musculoskeletal: Reports back pain Integumentary/Breasts: Skin/Breast: Denies rash Neurologic: Reports headache(s) [facility] Past Medical History Medical History Neuropathy Somnolence, daytime Flank pain RUQ abdominal pain Left foot pain Bilateral hand pain COVID-19 Hepatitis C Rheumatoid arthritis Flank pain Renal stones Bipolar disorder Panic disorder Depression Anxiety Abdominal distension (gaseous) Asthma Hyperlipidemia 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 Mother Diabetes mellitus Sister Diabetes mellitus Brother No problems noted. Paternal Uncle Colon cancer Social History Social History Household Members: None Housing: Apartment Do you presently have visiting nurse or other home services: Yes Alcohol intake: current Alcohol intake frequency: former alcohol drinker Alcohol type: beer Patient Tobacco Use Status: Current everyday Tobacco user Tobacco use type: Cigarette Cigarettes Per Day: 2 Years Smoked: 15 Advance Directives: No Advance Directives Information Provided: No Do you have a plan to hurt others: No Plan service: No Physical Exam Vital Signs: Vital Signs: Last Vital Signs Temp 98.6 F 09/01/24 17:59 Pulse 70 09/01/24 17:59 Resp 18 09/01/24 17:59 BP 168/83 H 09/01/24 17:59 Pulse Ox 98 09/01/24 17:59 O2 Del Method Room Air 09/01/24 17:59 BMI result Body Mass Index 30.7 Const: General: healthy appearing, comfortable, no acute distress, alert and awake Nutritional Appearance: well nourished Orientation/consciousness: patient oriented x3 HEENT: Head: Yes normocephalic and Yes atraumatic Eyes: Eyelids: Yes eyelids normal Conjunctivae: conjunctivae normal Sclerae: sclerae normal Corneas: corneas normal Pupils: Equal, round and reactive pupils present EOM: EOMs intact bilaterally Neck: Neck: Yes full ROM Resp: Effort & Inspection: normal respiratory effort, able to speak in complete sentences, no audible wheezes and not labored Auscultation: clear to auscultation bilaterally Cardio: Rate: regular rate Rhythm: regular rhythm Skin: General skin exam: elasticity normal Neuro: General: patient oriented x3 Cranial nerves: Yes CN's II-XII intact bilaterally, Yes Equal, round and reactive pupils present and Yes Bilaterally intact EOM present Cognition (Neuro): normal cognition Course Course Course Narrative: This is a Rapid Medical Exam performed in triage by Angela Reyes PA-C. Full HPI, ROS and PE to be performed by primary ED provider. 59-year-old female with a past medical history of NSTEMI, PAD, cirrhosis, HLD, diabetes, asthma, hepatitis-C presenting to the ED c/o headache, chest pain, abdominal pain, SOB, nausea, back pain x3 days. +chills. denies fever PE: Talking in complete sentences, ambulating with steady gait, nontoxic appeaering Plan: EKG, labs, UA, CXR, viral testing Reevaluation(s) Reevaluation #1: Patient reports that her symptoms have improved greatly, she still has a mild headache but otherwise has symptoms have resolved. Time: 18:47 Medications Administered Discontinued Medications Generic Name Dose Route Start Last Admin Trade Name Freq PRN Reason Stop Dose Admin Ketorolac Tromethamine 15 mg 09/01/24 16:59 09/01/24 17:36 Ketorolac Tromethamine 15 Mg/Ml Vial IVPUSH 09/01/24 17:00 15 mg ONCE ONE Administration Medical Decision Making Medical Decision Making [facility] Narrative: 59-year-old female with past medical history as documented above presents for evaluation of headache and right-sided chest pain. She does have a history of chronic headaches, she has no focal neuro deficits, there was no trauma. No indication for emergent imaging at this time. Plan to treat her headache with Toradol. This may be related to her chronic headaches. She also has some right-sided neck pain, her headache may be related to a tension headache. Given her significant past medical history and complaints of right-sided chest pain a cardiac workup was ordered. She would have an elevated troponin but has a chronically elevated troponin. We will repeat the troponin to assess for a delta change. The patient's EKG is normal sinus rhythm with LVH. The rate is 84 beats minute. No significant change when compared to previous from June 08, 2024. The patient's chest x-ray shows abnormal appearance of the both showed was which is new from prior. This could be related to positional changes versus developing avascular necrosis. This is less likely to be bilateral avascular necrosis. The patient has no current shoulder pain. She has a history of arthritis Differential Diagnosis Differential Diagnoses: The differential diagnosis associated with the presentation includes Chest pain ACS Muscle strain DVT PE Tension headache Admission/Observation Consideration of admission/observation: Escalation of care including admission/observation considered Patient ruled out for ACS with a flat troponin Lab Data [facility] Lab Attestation statement: I reviewed the patient's lab results. No leukocytosis. No significant anemia. Platelet count is 110 and likely related to the liver cirrhosis. No significant chemistry abnormalities with the exception of an elevated troponin to 143.5. Again, she has a history of this 09/01/24 15:51 09/01/24 15:51 Labs: Lab Results 09/01/24 09/01/24 Range/Units 15:51 18:13 WBC 4.9 (4.8-10.8) X10*3/uL RBC 4.25 (4.20-5.50) X10*6/uL Hgb 12.0 (12.0-16.0) g/dl Hct 34.9 L (37.0-47.0) % MCV 82.1 (80.0-98.0) fL MCH 28.2 (27.0-33.0) pg MCHC 34.4 (31.0-35.0) g/dl RDW 12.6 (11.0-16.0) % Plt Count 110 L (160-400) X10*3/uL MPV 10.3 (9.4-12.3) fL Immature Gran % (Auto) 0.2 (0.0-0.4) % Neut % (Auto) 61.2 (45-73) % Lymph % (Auto) 26.4 (20-40) % Cataño % (Auto) 11.0 (2-11) % Eos % (Auto) 1.0 (0-4) % Baso % (Auto) 0.2 (0-2) % Lymph # (Auto) 1.3 (1.2-4.9) X10*3/uL Cataño # (Auto) 0.5 (0.1-1.2) X10*3/uL Eos # (Auto) 0.1 (0.0-0.4) X10*3/uL Baso # (Auto) 0.0 (0.0-0.2) X10*3/uL Abs Immat Gran (auto) 0.01 (0.00-0.03) X10*3/uL Absolute Neuts (auto) 3.0 (2.0-8.3) x10*3/uL Absolute Nucleated RBC 0.000 (0.0-0.012) X10*3/uL Nucleated RBC % (auto) 0.0 (0.0-0.2) /100WBC PT 11.5 (10.9-12.4) SEC INR 1.0 (0.9-1.1) D-Dimer High Sensitivty < 150 NG/ML Sodium 141 (135-145) mmol/L Potassium 3.9 (3.3-5.1) mmol/L Chloride 110 H (96-108) mmol/L Carbon Dioxide 26 (22-29) mmol/L Anion Gap 9 L (12-20) BUN 12 (9-16) mg/dL Creatinine 0.93 (0.5-1.4) mg/dL Estim Creat Clear Calc 63.0 Estimated GFR > 60 Random Glucose 112 (60-115) mg/dL Calcium 9.5 (8.4-10.2) mg/dL Magnesium 2.1 (1.6-2.6) mg/dL Total Bilirubin 0.4 (0.0-1.0) mg/dL Direct Bilirubin 0.1 (0.0-0.5) mg/dL AST 54 H (5-31) U/L ALT 65 H (0-31) U/L Alkaline Phosphatase 159 H (39-117) U/L Troponin I High Sens 143.5 H* 142.2 H* (<3.5-17.0) ng/L B-Natriuretic Peptide 104 H (<100) pg/mL Total Protein 7.7 (6.5-8.0) g/dL Albumin 3.8 (3.5-5.0) g/dL Lipase 13 (8-78) U/L Urine Color Yellow Urine Appearance Cloudy Urine pH 7.0 (5.0-9.0) Ur Specific [place] 1.015 (1.005-1.025) Urine Protein Negative (Neg-Trace) mg/dL Urine Glucose (UA) Negative (Negative) mg/dL Urine Ketones Negative (Negative) mg/dL Urine Blood Negative (Negative) Urine Nitrite Negative (Negative) Ur Leukocyte Esterase Negative (Negative) Influenza Type A (PCR) NEGATIVE (Negative) Influenza Type B (PCR) NEGATIVE (Negative) RSV RNA Qual (PCR) NEGATIVE (Negative) SARS-CoV-2 RNA (RT-PCR) NEGATIVE (Negative) Independent Interpretation I performed an independent interpretation of an: EKG Interpretation: As above Radiology Impression Discussion of test interpretation with radiology: I have reviewed the radiologist's reading. Radiologist Impression: FINDINGS: The cardiac, hilar, and mediastinal contours are normal. Mild aortic calcification. The lungs are clear bilaterally. There is no pneumothorax or pleural effusion. There is no focal soft tissue abnormality. Cholecystectomy clips noted. Slightly abnormal appearance to the right greater than left shoulder joints, new from prior. This may be projectional from technique. XR/XR chest 2V IMPRESSION: 1. No active pulmonary disease. 2. Abnormal appearance to both shoulder joints which is new from prior, possibly secondary to technical differences/positioning, although developing AVN is a concern. Consider correlating with dedicated shoulder plain films. Electronically signed by: Mundo England MD 09/01/2024 02:20 PM [facility] Workstation: [id number] Discharge Plan Discharge Clinical Impression: Acute headache Patient Disposition: Home, Self-Care Instructions: Acute Headache (ED) Additional Instructions: Your workup in the ER today was reassuring. Use ibuprofen/Tylenol as needed for your headaches. Follow-up with your primary doctor, return for new or worsening symptom Prescriptions: No Action pyridoxine (vitamin B6) 100 mg tablet 100 mg PO QAM Qty: 90 3RF polyethylene glycol 3350 [Miralax] 17 gram/dose powder 17 g PO DAILY 1 Days Qty: 238 0RF Rx Instructions: Mix Miralax with 64 oz(8 cups) of Crystal light. Take 2 tablets of Dulcolax qt 12 pm. Wait to have your 1st bowel movement, then begin drinking Miralax. Drink a glass of Miralax every 10-15 minutes until you are finished. You will drink at least another 4 cups of clear liquid of your choice over the next 2 hours. Please drink as many clear liquids as possible You may have clear liquids up to four hours before your procedure sofosbuvir-velpatasvir [Epclusa] 400-100 mg tablet 1 tab PO DAILY 84 Days Qty: 84 0RF quetiapine 25 mg tablet 25 mg PO BID PRN (Reason: Sleep) insulin glargine [Lantus Solostar U-100 Insulin] 100 unit/mL (3 mL) insulin pen 60 unit subcut BEDTIME quetiapine 100 mg tablet 150 mg PO BEDTIME lisinopril 40 mg tablet 40 mg PO QPM amlodipine 10 mg tablet 10 mg PO QAM ropinirole 0.5 mg tablet 0.5 mg PO BEDTIME rosuvastatin 5 mg tablet 5 mg PO BEDTIME famotidine 20 mg tablet 20 mg PO TID Senna Plus 8.6-50 mg capsule 2 cap PO BEDTIME PRN (Reason: Constipation) fluticasone propionate 110 mcg/actuation HFA aerosol inhaler 1 puff INHALATION Q12H Asmanex HFA 100 mcg/actuation HFA aerosol inhaler 2 puff INHALATION Q12H PRN (Reason: sob) trazodone 150 mg Tablet 150 mg PO BEDTIME PRN (Reason: Sleep) oxycodone 5 mg capsule 5 mg PO Q8H PRN (Reason: pain) Qty: 12 0RF Rx Instructions: Partial Fill upon patient request. loratadine [Claritin] 10 mg tablet 10 mg PO DAILY Qty: 30 0RF naproxen 500 mg tablet 500 mg PO BID PRN (Reason: pain) Qty: 14 0RF cyclobenzaprine 10 mg tablet 10 mg PO TID PRN (Reason: muscle spasm) Qty: 15 0RF gabapentin 300 mg capsule 300 mg PO BID (DME) pen needle, diabetic [UltiCare Pen Needle] 31 gauge x 5/16 needle See Rx Instructions .ROUTE QID Qty: 1200 Rx Instructions: As directed insulin lispro 100 unit/mL insulin pen 20 unit subcut TID lidocaine 5 % adhesive patch,medicated 2 patch topical DAILY PRN (Reason: Pain) pioglitazone 15 mg tablet 15 mg PO QAM cholecalciferol (vitamin D3) [Vitamin D3] 25 mcg (1,000 unit) capsule 25 mcg PO QAM albuterol sulfate 2.5 mg /3 mL (0.083 %) solution for nebulization 2.5 mg inhalation Q4H PRN (Reason: sob) carvedilol 6.25 mg tablet 6.25 mg PO Ozempic 0.25 mg or 0.5 mg (2 mg/3 mL) pen injector 0.5 mg subcut MO aspirin 81 mg tablet,delayed release (DR/EC) 81 mg PO QPM Print Language: Angolan
[2024-09-01 15:55] LABS: MANUAL DIFF FLAG NO
[2024-09-01 16:00] LABS: Basophils Percent Auto 0.2 % (0-2); Eosinophils Absolute Auto 0.1 X10*3/uL (0.0-0.4); Hematocrit 34.9 % (37.0-47.0); Imm Gran Abs Auto 0.01 X10*3/uL (0.00-0.03); Imm Gran Pct Auto 0.2 % (0.0-0.4); Lymphocytes Absolute Auto 1.3 X10*3/uL (1.2-4.9); Lymphocytes Percent Auto 26.4 % (20-40); Mean Corpuscular HGB Conc 34.4 g/dl (31.0-35.0); Mean Corpuscular Hemoglobin 28.2 pg (27.0-33.0); Mean Corpuscular Volume 82.1 fL (80.0-98.0); Mean Platelet Volume 10.3 fL (9.4-12.3); Monocytes Absolute Auto 0.5 X10*3/uL (0.1-1.2); Neutrophils Percent Auto 61.2 % (45-73); Platelet Count 110 X10*3/uL (160-400); Red Blood Count 4.25 X10*6/uL (4.20-5.50); Red Cell Distribution Width 12.6 % (11.0-16.0); White Blood Count 4.9 X10*3/uL (4.8-10.8)
[2024-09-01 16:17] LABS: Prothrombin Time 11.5 SEC (10.9-12.4)
[2024-09-01 16:21] LABS: B Type Natriuretic Peptide 104 pg/mL (<100)
[2024-09-01 16:26] LABS: Alanine Aminotransferase 65 U/L (0-31); Albumin Level 3.8 g/dL (3.5-5.0); Anion Gap 9 (12-20); Aspartate Amino Transferase 54 U/L (5-31); Bilirubin Direct 0.1 mg/dL (0.0-0.5); Bilirubin Total 0.4 mg/dL (0.0-1.0); Blood Urea Nitrogen 12 mg/dL (9-16); Calcium 9.5 mg/dL (8.4-10.2); Carbon Dioxide 26 mmol/L (22-29); Chloride 110 mmol/L (96-108); Estimated Glomerular Filt Rate > 60; Glucose Random 112 mg/dL (60-115); Lipase 13 U/L (8-78); Magnesium 2.1 mg/dL (1.6-2.6); Potassium 3.9 mmol/L (3.3-5.1); Sodium 141 mmol/L (135-145); Total Protein 7.7 g/dL (6.5-8.0)
[2024-09-01 16:29] LABS: Troponin-I High Sensitivity 143.5 ng/L (<3.5-17.0)
[2024-09-01 16:38] LABS: Influenza A PCR NEGATIVE (Negative); Influenza B PCR NEGATIVE (Negative); Resp Syncy Virus RNA Qual PCR NEGATIVE (Negative); SARS COV2 PCR INHOUSE NEGATIVE (Negative)
[2024-09-01 16:44] VITALS: BP 173/77; PULSE 69; RESP 16; O2SAT 98
--- OUTSIDE RECORDS SUMMARY | 2024-09-01 17:22 | XMS_ITS | Encounter Summary ---
Author Organization [employer] Address [address] [facility] [address] [place] [address] Care Team Providers Care Apprentice Funeral Director Name Role Phone Wanda Bonilla Primary Care Provider [phone] Encounter Details Date Type Department Care Team (Late st Contact Info) Description 08/28/2023 Orders Only [facility] [address] [place] [address] Wanda Bonilla ANP [address] [place] [address] Social History Tobacco Use Types Packs/Day Years [...] the past 12 months, has t he [employer], gas, oil or water [employer] threatened to shut off services in your [...] Description 09/25/2024 2:00 PM EST Office Visit [address] [address] Wanda Bonilla ANP [address] [place] [address] 10/21/2024 10:00 AM EDT Office Visit [address] [address] Shivani Small CNM [address] [place] [address] documented as of this encounter Visit Diagnoses Not on filedocumented in this encounter Additional Health Concerns Assessment Noted Time PHQ-9 Depression Total Score: 0 08/25/19 23 1:48 PM EST documented as of this encounter Care Teams Apprentice Funeral Director Relationship Specialty Start Date End Date Wanda Bonilla ANP [address] [place] [phone] PCP - General Family Medicine 09/03/20 documented as of this encounter
--- OUTSIDE RECORDS SUMMARY | 2024-09-01 17:22 | XMS_ITS | Encounter Summary ---
Author Organization [employer] Address [address] [facility] 7[address] [place] [address] Care Team Providers Care Refrigeration Operator Name Role Phone Wanda Bonilla Primary Care Provider [phone] Reason for Visit * Reason Onset Date Comments Med Refill 08/28/2023 Encounter Details Date Type Department Care Team ([facility] st Contact Info) Description 08/28/2023 Telephone [facility] [address] [place] [address] Wanda Bonilla ANP [address] [place] [address] Med Refill Social History Tobacco Use Types [...] MG/1.5ML solution pen-injector To be sent to: [facility] documented in this encounter Plan of Treatment Upcoming Encounters Date Type Department Care Team (Late st Contact Info) Description 09/25/2024 2:00 PM EST Office Visit [facility] [address] [place] [address] Wanda Bonilla ANP [address] [place] [address] 10/21/2024 10:00 AM EDT Office Visit [facility] [address] [place] [address] Shivani Small CNM [address] [place] [address] documented as of this encounter Visit Diagnoses Not on filedocumented in this encounter Additional Health Concerns Assessment Noted Time PHQ-9 Depression Total Score: 0 08/25/19 23 1:48 PM EST documented as of this encounter Care Teams Refrigeration Operator Relationship Specialty Start Date End Date Wanda Bonilla ANP [address] [place] [address] PCP - General Family Medicine 09/03/20 documented as of this encounter
--- OUTSIDE RECORDS SUMMARY | 2024-09-01 17:22 | XMS_ITS | Encounter Summary ---
Author Organization [employer] [facility] Address [address] [place] [address] 7t [place] [address] Care Team Providers Care Admissions Representative Name Role Phone Wanda Bonilla Primary Care Provider [phone] Encounter Details Date Type Department Care Team (Late st Contact Info) Description 08/09/2022 Orders Only [facility] [address] [place] [phone] Shanna Lopez LPN Social History Tobacco Use [...] Description 09/25/2024 2:00 PM EST Office Visit [facility] [address] [place] [phone] Wanda Bonilla ANP [address] [place] [address] 10/21/2024 10:00 AM EDT Office Visit [facility] [address] [place] [address] Shivani Small CNM [address] [place] [phone] documented as of this encounter Visit Diagnoses Not on filedocumented in this encounter Care Teams Admissions Representative Relationship Specialty Start Date End Date Wanda Bonilla ANP [address] [place] [phone] PCP - General Family Medicine 09/03/20 documented as of this encounter
--- OUTSIDE RECORDS SUMMARY | 2024-09-01 17:22 | XMS_ITS | Encounter Summary ---
Author Organization [employer] Address [address] [facility] 7t [place] [address] Care Team Providers Care Printer Assistant Name Role Phone Wanda Bonilla Primary Care Provider [phone] Reason for Visit * Reason Onset Date Comments dx order 03/19/2024 Encounter Details Date Type Department Care Team ([facility] st Contact Info) Description 03/19/2024 Telephone [facility] [address] [place] [address] Wanda Bonilla ANP [address] [place] [address] dx order Social History Tobacco Use Types [...] a call to confirm ascheduled appt at [facility] for 03/28/24 however pt attempted to call to confirm appt again and was advised pt does not have an appt and does not have any orders for MRI. Please contact at [phone] Syri[place] documented in this encounter Plan of Treatment Upcoming Encounters Date Type Department Care Team (Late st Contact Info) Description 09/25/2024 2:00 PM EST Office Visit [facility] [address] [place] [address] Wanda Bonilla ANP [address] [place] [address] 10/21/2024 10:00 AM EDT Office Visit [facility] [address] [place] [address] Shivani Small CNM [address] [place] [address] documented as of this encounter Visit Diagnoses Not on filedocumented in this encounter Additional Health Concerns Assessment Noted Time PHQ-9 Depression Total Score: 5 11/23/19 24 1:33 PM EDT documented as of this encounter Care Teams Printer Assistant Relationship Specialty Start Date End Date Wanda Bonilla ANP [address] [place] [address] PCP - General Family Medicine 09/03/20 documented as of this encounter
--- OUTSIDE RECORDS SUMMARY | 2024-09-01 17:22 | XMS_ITS | Encounter Summary ---
Author Organization [employer] Address [address] [facility] 7t [place] [address] Care Team Providers Care Fire Alarm Installer Name Role Phone Wanda Bonilla Primary Care Provider [phone] Reason for Visit * Reason Onset Date Comments Referral 08/30/2022 Encounter Details Date Type Department Care Team ([facility] st Contact Info) Description 08/30/[address] [facility] MED[facility]INE [address] [place] [address] Wanda Bonilla ANP [address] [place] [address] Referral Social History Tobacco Use Types Packs/Day [...] see a neurologist Please contact pt at [phone] documented in this encounter Plan of Treatment Upcoming Encounters Date Type Department Care Team (Late st Contact Info) Description 09/25/2024 2:00 PM EST Office Visit [address] [address] Wanda Bonilla ANP [address] [place] [address] 10/21/2024 10:00 AM EDT Office Visit [address] [address] Shivani Small CNM [address] [place] [address] documented as of this encounter Visit Diagnoses Not on filedocumented in this encounter Additional Health Concerns Assessment Noted Time PHQ-9 Depression Total Score: 0 08/25/19 23 1:48 PM EST documented as of this encounter Care Teams Fire Alarm Installer Relationship Specialty Start Date End Date Wanda Bonilla ANP [address] [place] [id number] PCP - General Family Medicine 09/03/20 documented as of this encounter
--- OUTSIDE RECORDS SUMMARY | 2024-09-01 17:22 | XMS_ITS | Encounter Summary ---
Author Organization [employer] Address 75 [facility] 7t [place] [address] Care Team Providers Care Parachute Manufacturing Supervisor Name Role Phone Wanda Bonilla Primary Care Provider [phone] Reason for Visit * Reason Comments Med Refill Encounter Details Date Type Department Care Team ([facility] st Contact Info) Description 08/11/2024 Refill [facility] MEDICINE [address] [place] [address] Wanda Bonilla ANP 230 [place] [address] Diabetic polyneuropathy associated with type 2 diabetes [...] Description 09/25/2024 2:00 PM EST Office Visit [address] [address] Wanda Bonilla ANP [address] [place] [address] 10/21/2024 10:00 AM EDT Office Visit [address] [address] Shivani Small CNM [address] [place] [address] documented as of this encounter Visit Diagnoses Diagnosis Diabetic polyneuropathy associated with type 2 diabetes mellitus (CMS/HCC) documented in this encounter Additional Health Concerns Assessment Noted Time PHQ-9 Depression Total Score: 5 11/23/19 24 1:33 PM EDT documented as of this encounter Care Teams Parachute Manufacturing Supervisor Relationship Specialty Start Date End Date Wanda Bonilla ANP [address] [place] [address] PCP - General Family Medicine 09/03/20 documented as of this encounter
--- OUTSIDE RECORDS SUMMARY | 2024-09-01 17:22 | XMS_ITS | Encounter Summary ---
Author Organization [employer] Address 75 [facility] 7t [place] [address] Care Team Providers Care Transportation Operations Manager Name Role Phone Wanda Bonilla Primary Care Provider [phone] Reason for Visit * Reason Comments Med Refill Encounter Details Date Type Department Care Team ([facility] st Contact Info) Description 08/26/2024 Refill [facility] MEDICINE 230 [place] [address] Wanda Bonilla ANP 230 [place] [address] Primary hypertension Social History Tobacco Use Types [...] 2:00 PM EST Office Visit [facility] MED[facility]INE [address] [place] [address] Wanda Bonilla ANP [address] [place] [address] 10/21/2024 10:00 AM EDT Office Visit [facility] MED[facility]INE [address] [place] [address] Shivani Small CNM [address] [place] [address] documented as of this encounter Visit Diagnoses Diagnosis Primary hypertension Unspecified essential hypertension documented in this encounter Additional Health Concerns Assessment Noted Time PHQ-9 Depression Total Score: 5 11/23/19 24 1:33 PM EDT documented as of this encounter Care Teams Transportation Operations Manager Relationship Specialty Start Date End Date Wanda Bonilla ANP [address] [place] [address] PCP - General Family Medicine 09/03/20 documented as of this encounter
--- OUTSIDE RECORDS SUMMARY | 2024-09-01 17:22 | XMS_ITS | Encounter Summary ---
Author Organization [employer] Address 75 [facility] 7t [place] [address] Care Team Providers Care Telegraphic Service Dispatcher Name Role Phone Wanda Bonilla TAHIR Primary Care Provider [phone] Reason for Visit * Reason Comments Cough Nasal Congestion Encounter Details Date Type Department Care Team ([facility] st Contact Info) Description 08/04/2024 9:40 AM EST Office Visit [facility] 230 [place], [place] [phone] Adolfo Benitez MD 230 [place], [place] [phone] Mild persistent asthma with acute exacerbation (Primary [...] Hyperlipidemia Onychomycosis Panic disorder without agoraphobia 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) Sleep disorder, unspecified Somnolence, daytime Class 1 obesity Diabetic retinopathy ([facility]/HCC) Carpal tunnel syndrome Benign neoplasm of pituitary gland ([facility]) Type 2 diabetes mellitus with hyperlipidemia ([facility]/HCC) ([facility]) Chest pain Other microscopic hematuria Dysuria The [...] Description 09/25/2024 2:00 PM EST Office Visit [facility] [address] [place] [address] Wanda Bonilla ANP 230 [place] [address] 10/21/2024 10:00 AM EDT Office Visit [facility] [address] [place] [address] Shivani Small CNM 230 [place] [address] documented as of this encounter Procedures Procedure [...] AM EST) Influenza B Negative Negative, Indeterminate [facility] Swab 08/04/2024 9:46 AM EST us Adolfo Benitez MD POINT OF CARE TEST ENTER/EDIT OR DERABLES Final Result [facility] [address] [place] [address] [phone] * Influenza A (ID NOW Rapid Molecular) (08/04/2024 9:46 AM EST) Influenza A Negative Negative, Indeterminate [facility] Swab 08/04/2024 9:46 AM EST us Adolfo Benitez MD POINT OF CARE TEST ENTER/EDIT OR DERABLES Final Result Performing Organization Address [facility] de Phone Number [facility] [address] [place] [address] [phone] * POCT Rapid COVID Ag (08/04/2024 9:46 AM EST) Rapid COVID Ag Negative [facility] Swab 08/04/2024 9:46 AM EST us Adolfo Benitez MD POINT OF CARE TEST ENTER/EDIT OR DERABLES Final Result Performing Organization Address [facility] de Phone Number [facility] [address] [place] [phone] documented in this encounter Visit Diagnoses Diagnosis Mild persistent asthma with acute exacerbation- Primary Hypertension, unspecified type Viral URI Acute upper respiratory infections of unspecified site documented in this encounter Additional Health Concerns Assessment Noted Time PHQ-9 Depression Total Score: 5 11/23/19 24 1:33 PM EDT documented as of this encounter Care Teams Telegraphic Service Dispatcher Relationship Specialty Start Date End Date Wanda Bonilla ANP [address] [place] [phone] PCP - General Family Medicine 09/03/20 documented as of this encounter
--- OUTSIDE RECORDS SUMMARY | 2024-09-01 17:22 | XMS_ITS | Encounter Summary ---
Author Organization [employer] Address 75 [facility] 7t [place] [address] Care Team Providers Care Food Service Substitute Name Role Phone Wanda Bonilla Primary Care Provider [phone] Reason for Visit * Reason Onset Date Comments Appointment Request 06/12/2023 Encounter Details Date Type Department Care Team ([facility] Contact Info) Description 06/12/2023 Telephone [facility] MEDICINE 230 [place] [address] Wanda Bonilla ANP 230 [place] [address] Appointment Request Social History Tobacco Use Types [...] Description 09/25/2024 2:00 PM EST Office Visit [facility] [address] [place] [address] Wanda Bonilla ANP 230 [place] [address] 10/21/2024 10:00 AM EDT Office Visit [address] [address] Shivani Small CNM 230 [place] [address] documented as of this encounter Visit Diagnoses Not on filedocumented in this encounter Additional Health Concerns Assessment Noted Time PHQ-9 Depression Total Score: 0 08/25/19 23 1:48 PM EST documented as of this encounter Care Teams Food Service Substitute Relationship Specialty Start Date End Date Wanda Bonilla ANP [address] [place] [phone] PCP - General Family Medicine 09/03/20 documented as of this encounter
--- OUTSIDE RECORDS SUMMARY | 2024-09-01 17:22 | XMS_ITS | Encounter Summary ---
Author Organization [employer] Address 75 [facility] 7t [place] [address] Care Team Providers Care Cosmetology Professor Name Role Phone Wanda Bonilla Primary Care Provider [phone] Reason for Visit * Reason Onset Date Comments Returning Call 01/08/2024 Encounter Details Date Type Department Care Team ([facility] st Contact Info) Description 01/08/2024 Telephone [facility] MEDICINE 230 [place] [address] Wanda Bonilla ANP 230 [place] [address] Returning Call Social History Tobacco Use Types [...] pt stated she received a call from vp care management regarding new program in [facility], comic writer did not see anything documented but advised will forward message. documented in this encounter Plan of Treatment Upcoming Encounters Date Type Department Care Team (Late st Contact Info) Description 09/25/2024 2:00 PM EST Office Visit [facility] MED[facility] [address] [place] [address] Wanda Bonilla ANP 230 [place] [address] 10/21/2024 10:00 AM EDT Office Visit [facility] [address] [place] [address] Shivani Small CNM [address] [place] [address] documented as of this encounter Visit Diagnoses Not on filedocumented in this encounter Additional Health Concerns Assessment Noted Time PHQ-9 Depression Total Score: 5 11/23/19 24 1:33 PM EDT documented as of this encounter Care Teams Cosmetology Professor Relationship Specialty Start Date End Date Wanda Bonilla ANP [address] [place] [address] PCP - General Family Medicine 09/03/20 documented as of this encounter
--- OUTSIDE RECORDS SUMMARY | 2024-09-01 17:22 | XMS_ITS | Encounter Summary ---
Author Organization [employer] Address [address] [facility] 7t [place] [address] Care Team Providers Care Decorator Inspector Name Role Phone Wanda Bonilla Primary Care Provider [phone] Encounter Details Date Type Department Care Team [...] Description 09/25/2024 2:00 PM EST Office Visit [address] [address] Wanda Bonilla ANP 230 [place] [address] 10/21/2024 10:00 AM EDT Office Visit [address] [address] Shivani Small CNM 230 [place] [address] documented as of this encounter Visit Diagnoses Not on filedocumented in this encounter Additional Health Concerns Assessment Noted Time PHQ-9 Depression Total Score: 5 11/23/19 24 1:33 PM EDT documented as of this encounter Care Teams Decorator Inspector Relationship Specialty Start Date End Date Wanda Bonilla ANP [address] [place] [phone] PCP - General Family Medicine 09/03/20 documented as of this encounter
--- OUTSIDE RECORDS SUMMARY | 2024-09-01 17:22 | XMS_ITS | Encounter Summary ---
Author Organization [employer] Address 75 [facility] 7t [place] [address] Care Team Providers Care Picking Table Worker Name Role Phone Wanda Bonilla Primary Care Provider [phone] Reason for Visit * Reason Comments Med Refill Encounter Details Date Type Department Care Team ([facility] st Contact Info) Description 08/03/2024 Refill [facility] MEDICINE 230 [place] [address] Wanda Bonilla ANP 230 [place] [address] Essential hypertension Social History Tobacco Use Types [...] Description 09/25/2024 2:00 PM EST Office Visit [facility] MEDICINE [address] [place] [address] Wanda Bonilla ANP [address] [place] [address] 10/21/2024 10:00 AM EDT Office Visit [facility] MEDICINE [address] [place] [address] Shivani Small CNM [address] [place] [address] documented as of this encounter Visit Diagnoses Diagnosis Essential hypertension Unspecified essential hypertension documented in this encounter Additional Health Concerns Assessment Noted Time PHQ-9 Depression Total Score: 5 11/23/19 24 1:33 PM EDT documented as of this encounter Care Teams Picking Table Worker Relationship Specialty Start Date End Date Wanda Bonilla ANP [address] [place] [address] PCP - General Family Medicine 09/03/20 documented as of this encounter
--- OUTSIDE RECORDS SUMMARY | 2024-09-01 17:22 | XMS_ITS | Encounter Summary ---
Author Organization [employer] Address 75 [facility] 7t [place] [address] Care Team Providers Care Multifold Operator Name Role Phone Wanda Bonilla Primary Care Provider [phone] Reason for Visit * Reason Onset Date Comments Nurse Triage 08/04/2024 Encounter Details Date Type Department Care Team ([facility] st Contact Info) Description 08/04/2024 Telephone [facility] MEDICINE 230 [place] [address] Wanda Bonilla ANP 230 [place] [address] Nurse Triage Social History Tobacco Use Types [...] onher way into walk in center at [facility] at time of call. Sounds SOB. Has used inhalers this morning reports only that phlegm is yellow. Call ended with patient approaching [facility]. Protocol Used: Asthma Attack (Adult) Protocol-Based Disposition: [...] the mouth The caller accepted this outcome. [phone] documented in this encounter Plan of Treatment Upcoming Encounters Date Type Department Care Team (Late st Contact Info) Description 09/25/2024 2:00 PM EST Office Visit [facility] MEDICINE [address] [place] [address] Wanda Bonilla ANP 230 [place], [place] [phone] 10/21/2024 10:00 AM EDT Office Visit [facility] 230 [place], [place] [phone] Shivani Small CNM 230 [place], [place] [phone] documented as of this encounter Visit Diagnoses Not on filedocumented in this encounter Additional Health Concerns Assessment Noted Time PHQ-9 Depression Total Score: 5 11/23/19 24 1:33 PM EDT documented as of this encounter Care Teams Multifold Operator Relationship Specialty Start Date End Date Wanda Bonilla ANP [address] [place] [phone] PCP - General Family Medicine 09/03/20 documented as of this encounter
--- OUTSIDE RECORDS SUMMARY | 2024-09-01 17:22 | XMS_ITS | Encounter Summary ---
Author Organization [employer] Address [address] [place] [address] 7t [place] [address] Care Team Providers Care Supervisor [address] Name Role Phone Wanda Bonilla Primary Care Provider [phone] Reason for Visit * Reason Onset Date Comments triage 07/13/2022 Encounter Details Date Type Department Care Team (Late st Contact Info) Description 07/13/2022 Telephone [facility] MEDICINE [address] [place] [address] Wanda Bonilla ANP [address] [place] [phone] triage Social History Tobacco Use Types Packs/Day [...] caller The caller accepted this outcome speaks croatian documented in this encounter Plan of Treatment Upcoming Encounters Date Type Department Care Team (Late st Contact Info) Description 09/25/2024 2:00 PM EST Office Visit [facility] MEDICINE [address] [place] [address] Wanda Bonilla ANP 230 [place] [address] 10/21/2024 10:00 AM EDT Office Visit [facility] MEDICINE [address] [place], [place] [phone] Shivani Small CNM [address] [place], [place] [phone] documented as of this encounter Visit Diagnoses Not on filedocumented in this encounter Care Teams Supervisor [address] Relationship Specialty Start Date End Date Wanda Bonilla ANP [address] [place] [address] PCP - General Family Medicine 09/03/20 documented as of this encounter
--- OUTSIDE RECORDS SUMMARY | 2024-09-01 17:22 | XMS_ITS | Encounter Summary ---
Author Organization [employer] Address 75 [facility] 7t [place] [address] Care Team Providers Care Repairer Maintenance Building Name Role Phone Wanda Bonilla TAHIR Primary Care Provider [phone] Reason for Visit * Reason Comments Med Refill Encounter Details Date Type Department Care Team ([facility] st Contact Info) Description 03/20/2024 Refill [facility] MEDICINE 230 [place], [place] [phone] Shivani Small CNM [address] [place] [address] Social History Tobacco Use Types Packs/Day Years [...] 09/25/2024 2:00 PM EST Office Visit [facility] MEDICINE [address] [place] [address] Wanda Bonilla ANP [address] [place] [address] 10/21/2024 10:00 AM EDT Office Visit [facility] MEDICINE [address] [place] [address] Shivani Small CNM [address] [place] [address] documented as of this encounter Visit Diagnoses Not on filedocumented in this encounter Additional Health Concerns Assessment Noted Time PHQ-9 Depression Total Score: 5 11/23/19 24 1:33 PM EDT documented as of this encounter Care Teams Repairer Maintenance Building Relationship Specialty Start Date End Date Wanda Bonilla ANP [address] [place] [address] PCP - General Family Medicine 09/03/20 documented as of this encounter
--- OUTSIDE RECORDS SUMMARY | 2024-09-01 17:22 | XMS_ITS | Encounter Summary ---
Author Organization [employer] Address [address] [facility] [address] 7t [place] [address] Care Team Providers Care Integrated Circuits Inspector Name Role Phone Sandra Vieira Primary Care Provider [phone] Encounter Details Date Type Department Care Team (Late st Contact Info) Description 09/01/2024 Orders Only [facility] External Provider, [facility] Social History Tobacco Use Types Packs/Day Years [...] Description 09/25/2024 2:00 PM EST Office Visit [facility] [address] [place], [place] [phone] Sandra Vieira, ANP [address] [place], [place] [phone] 10/21/2024 10:00 AM EDT Office Visit [facility] [address] [place], [place] [phone] Shivani Small, XIMENAM [address] [place], [place] [phone] Pending Results Name Type Priority Associated Diagnoses Date /Time Hepatic Function Panel Lab Routine 3:51 PM EST Basic Metabolic Panel Lab Routine 09/2024 3:51 PM EST Magnesium Lab Routine 09/01/2024 3:5 1 PM EST Lipase Lab Routine 09/01/2024 3:5 1 PM EST documented as of this encounter Procedures Procedure Name Priority Date/Time Associated Diagnosis Comments HIGH SENSITIVITY TROPONIN I Routine 09/01/2024 3:51 PM EST SARS COV2/INFLUENZA A/B AND RSV RNA QL NAAT Routine 09/01/2024 3:51 PM EST CBC WITH AUTO DIFFERENTIAL Routine 09/01/2024 3:51 PM EST PROTHROMBIN TIME-INR Routine 09/01/2024 3:51 PM EST B TYPE NATRIURETIC PEPTIDE (BNP) Routine 09/01/2024 3:51 PM EST MAGNESIUM Routine 09/01/2024 3:51 PM EST LIPASE Routine 09/01/2024 3:51 PM EST HEPATIC FUNCTION PANEL Routine 09/01/2024 3:51 PM EST BASIC METABOLIC PANEL Routine 09/01/2024 3:51 PM EST XR CHEST 2 VIEWS Routine 09/01/2024 1:48 PM EST documented in this encounter Results * SARS-CoV-2 RNA, Influenza A/B, and RSV RNA, Ql NAAT (09/01/2024 3:51 PM EST) Pathologist [facility] Influenza A PCR NEGATIVE Negative [facility] Influenza B PCR NEGATIVE Negative [facility] Resp Syncy Virus RNA Qual PCR NEGATIVE Negative [facility] SARS COV2 PCR NEGATIVE Negative [facility] Comment:All test results mus t be correlated with clinical findings.Negative results do not preclude SARS-CoV2, influenza Avirus, influenza B virus and/or RSV infectionand should not be used as the sole basis for treatment orother patient management decisions. Negative results must becombined with clinical observations, patient history, andepidemiological information.This test has not been evaluated for monitoring treatment ofinfection.This test has been authorized by the FDA under an EmergencyUse Authorization (EUA) for use by authorized laboratories.Testing performed on the [employer] GeneXpert utilizingreal-time RT-PCR.All SARS CoV2 and positive influenza A/B results arereported to [facility]. 09/01/2024 3:51 PM EST 09/01/2024 3:53 PM EST us Generic External Data Provider LAB MICROBIOLOGY - GENERAL ORDERABLES Final Result [facility] [address] [place] [phone] * (ABNORMAL) High Sensitivity Troponin I (09/01/2024 3:51 PM EST) Pathologist [facility] TROPONIN I HIGH SENSITIVITY 143.5(HH) <3.5 - 17.0 ng/L [facility] Comment:Critical value for t est(s):TROP-IHS Results called to em back by: RENNY Person calling:DOROTHY Date:[id number] Jimenes high sensitivity Troponin-I results should beused in conjunction with other diagnostic information suchas ECG, clinical observations and information, and patientsymptoms to aid in the diagnosis of NV. 09/01/2024 3:51 PM EST 09/01/2024 3:53 PM EST Generic External Data Provider LAB BLOOD ORDERAB LES Final Result Performing Organization Address [facility]/ZIP Co de Phone Number [facility] [address] [place] [phone] * (ABNORMAL) B Type Natriuretic Peptide (BNP) (09/01/2024 3:51 PM EST) Pathologist [facility] B Type Natriuretic Peptide 104(H) <100 pg/mL [facility] Comment:For those patients w ho are being treated with Natrecor(nesiritide, recombinant BNP), BNP testing should beperformed at least two hours post treatment in order toensure that only endogenous levels of BNP are detected. 09/01/2024 3:51 PM EST 09/01/2024 3:53 PM EST Generic External Data Provider LAB BLOOD ORDERAB LES Final Result Performing Organization Address [facility] Co de Phone Number [facility] [address] [place] [phone] * Prothrombin Time-INR (09/01/2024 3:51 PM EST) Prothrombin Time 11.5 10.9 - 12.4 SEC [facility] INTERNATIONAL NORM RATIO 1.0 0.9 - 1.1 [facility] Comment:INTERNATIONAL NORMAL IZED RATIO (INR) REFERENCE RANGES Reference RangeFor patients not on anticoagulant therapy: 0.9 - 1.1INR ranges for oral anticoagulanttherapy:For prevention and treatment of venous thrombosis and pulmonary embolism: 2.0 - 3.0For acute myocardial infarction with aspirin therapy: 2.0 - 3.0For acute myocardial infarction without aspirin therapy: 3.0 - 4.0For patients with mechanical prosthetic heart valves: 2.5 - 3.5 09/01/2024 3:51 PM EST 09/01/2024 3:53 PM EST us Generic External Data Provider LAB BLOOD ORDERAB LES Final Result [facility] [address] [place] [phone] * (ABNORMAL) CBC auto differential (09/01/2024 3:51 PM EST) White Blood Count 4.9 4.8 - 10.8 X10*3/uL [facility] Red Blood Count 4.25 4.20 - 5.50 X10*6/uL [facility] Hemoglobin 12.0 12.0 - 16.0 g/dl [facility] Hematocrit 34.9(L) 37.0 - 47.0 % [facility] Mean Corpuscular Volume 82.1 80.0 - 98.0 fL [facility] Mean Corpuscular Hemoglobin 28.2 27.0 - 33.0 pg [facility] Mean Corpuscular HGB Conc 34.4 31.0 - 35.0 g/dl [facility] Red Cell Distribution Width 12.6 11.0 - 16.0 % [facility] Platelet Count 110(L) 160 - 400 X10*3/uL [facility] Mean Platelet Volume 10.3 9.4 - 12.3 fL [facility] Neutrophils Percent Auto 61.2 45 - 73 % [facility] Imm Gran Pct Auto 0.2 0.0 - 0.4 % [facility] Lymphocytes Percent Auto 26.4 20 - 40 % [facility] Monocytes Percent Auto 11.0 2 - 11 % [facility] Eosinophils Percent Auto 1.0 0 - 4 % [facility] Basophils Percent Auto 0.2 0 - 2 % [facility] NRBC Pct Auto 0.0 0.0 - 0.2 /100WBC [facility] Neutrophils Absolute Auto 3.0 2.0 - 8.3 x10*3/uL [facility] Imm Gran Abs Auto 0.01 0.00 - 0.03 X10*3/uL [facility] Lymphocytes Absolute Auto 1.3 1.2 - 4.9 X10*3/uL [facility] Monocytes Absolute Auto 0.5 0.1 - 1.2 X10*3/uL [facility] Eosinophils Absolute Auto 0.1 0.0 - 0.4 X10*3/uL [facility] Basophils Absolute Auto 0.0 0.0 - 0.2 X10*3/uL [facility] NRBC Abs Auto 0.000 0.0 - 0.012 X10*3/uL [facility] 09/01/2024 3:51 PM EST 09/01/2024 3:53 PM EST us Generic External Data Provider LAB BLOOD ORDERAB LES Final Result [facility] [address] [place] [phone] * XR Chest 2 Views (09/01/2024 1:48 PM EST) Anatomical Region Laterality Modality Chest Radiographic Nina ging 09/01/2024 1:48 PM EST Narrative 09/01/2024 2:23 PM EST ? [facility] ?[address] ?[place] [address] ?XRay Report ? Signed ? Patient: Colon,Milsa ?MR#: [id number] ? : 1965 ?Acct:[id number] ? Age/Sex: 59 / F ?ADM Date: 02/03/25 ? Loc: HO.ED ? Attending Dr: ? Ordering Physician: Angela Reyes ?? Date of Service: 09/01/24 ?? Procedure(s): XR chest 2V ?? Accession Number(s): [id number] ? cc: Angela Reyes; SANDRA VIEIRA NP ? EXAMINATION: ?? XR CHEST ? CLINICAL INFORMATION: ?? cp ? COMPARISON: ?? None available. ? TECHNIQUE: ?? 2 views of the chest were obtained. ? FINDINGS: ?? The cardiac, hilar, and mediastinal contours are normal. Mild aortic ?? calcification. ? The lungs are clear bilaterally. There is no pneumothorax or pleural ?? effusion. ? There is no focal soft tissue abnormality. Cholecystectomy clips noted. ? Slightly abnormal appearance to the right greater than left shoulder ?? joints, new from prior. This may be projectional from technique. ? XR/XR chest 2V ?? IMPRESSION: ?? 1. No active pulmonary disease. ?? 2. Abnormal appearance to both shoulder joints which is new from prior, ?? possibly secondary to technical differences/positioning, although ?? developing AVN is a concern. Consider correlating with dedicated ?? shoulder plain films. ? Electronically signed by: ??Mundo England MD ??09/01/2024 02:20 PM EST RP ? Dictated By: ?Mundo England MD ? Signed By: ?<Electronically signed by Mundo England MD in OV> ?09/01/24 1420 ? DD/ 1348 ? TD/TT: 09/01/24 1410 ? Baccarat Manager: ? Procedure Note Concepción Ndiaye - 09/01/2024 [place] [address] XRay Report Signed Patient: Barrera Max#: [id number] : 1965Acct:[id number] Age/Sex: 59 / FADM Date: 09/01/24 Loc: HO.ED Attending Dr: Ordering Physician: Angela Reyes Date of Service: 09/01/24 Procedure(s): XR chest 2V Accession Number(s): [id number] cc: Angela Reyes; SANDRA VIEIRA NP EXAMINATION: XR CHEST CLINICAL INFORMATION: cp COMPARISON: None available. TECHNIQUE: 2 views of the chest were obtained. FINDINGS: The cardiac, hilar, and mediastinal contours are normal. Mild aortic calcification. The lungs are clear bilaterally. There is no pneumothorax or pleural effusion. There is no focal soft tissue abnormality. Cholecystectomy clips noted. Slightly abnormal appearance to the right greater than left shoulder joints, new from prior. This may be projectional from technique. XR/XR chest 2V IMPRESSION: 1. No active pulmonary disease. 2. Abnormal appearance to both shoulder joints which is new from prior, possibly secondary to technical differences/positioning, although developing AVN is a concern. Consider correlating with dedicated shoulder plain films. Electronically signed by: Mundo England MD 09/01/2024 02:20 PM EST Dictated By: Mundo England MD Signed By: <Electronically signed by Mundo England MD in OV> 09/01/24 1420 DD/ 1348 TD/TT: 09/01/24 1410 Baccarat Manager: [facility] External Provider IMG XR PROCEDURES Final Result documented in this encounter Visit Diagnoses Not on filedocumented in this encounter Additional Health Concerns Assessment Noted Time PHQ-9 Depression Total Score: 5 11/23/19 24 1:33 PM EDT documented as of this encounter Care Teams Integrated Circuits Inspector Relationship Specialty Start Date End Date Sandra Vieira ANP [address] [place] [address] PCP - General Family Medicine 09/03/20 documented as of this encounter
--- OUTSIDE RECORDS SUMMARY | 2024-09-01 17:22 | XMS_ITS | Encounter Summary ---
Author Organization [employer] Address [address] [facility] [address] 7[address] [place] [address] Care Team Providers Care Cooker Soda Name Role Phone Wanda Bonilla Primary Care Provider [phone] Reason for Visit * Reason Comments Med Refill Encounter Details Date Type Department Care Team ([facility] st Contact Info) Description 08/16/2024 Refill [facility] [address] [place], [place] [phone] Wanda Bonilla ANP [address] [place], [place] [phone] Restless legs Social History Tobacco Use Types [...] 09/25/2024 2:00 PM EST Office Visit [facility] [address] [place] [phone] Wanda Bonilla ANP [address] [place] [address] 10/21/2024 10:00 AM EDT Office Visit [facility] [address] [place] [phone] Shivani Small CNM [address] [place] [phone] documented as of this encounter Visit Diagnoses Diagnosis Restless legs Restless legs syndrome (RLS) documented in this encounter Additional Health Concerns Assessment Noted Time PHQ-9 Depression Total Score: 5 11/23/19 24 1:33 PM EDT documented as of this encounter Care Teams Cooker Soda Relationship Specialty Start Date End Date Wanda Bonilla ANP [address] [place] [phone] PCP - General Family Medicine 09/03/20 documented as of this encounter
--- OUTSIDE RECORDS SUMMARY | 2024-09-01 17:22 | XMS_ITS | Encounter Summary ---
Author Organization [employer] Address [address] [facility] [address] 7[address] Floor [address] Care Team Providers Care Baby Counselor Name Role Phone Wanda Bonilla Primary Care Provider [phone] Encounter Details Date Type Department Care Team (Late st Contact Info) Description 08/14/2024 Telephone [facility] [address] [place], [place] [phone] Adolfo Fernando, VishnuD Social History Tobacco Use [...] t he electric, gas, oil or water [employer] threatened to shut off services in your [...] Description 09/25/2024 2:00 PM EST Office Visit [address] [phone] Wanda Bonilla ANP [address] [place] [address] 10/21/2024 10:00 AM EDT Office Visit [address] [address] Shivani Small CNM [address] [place] [address] documented as of this encounter Visit Diagnoses Not on filedocumented in this encounter Additional Health Concerns Assessment Noted Time PHQ-9 Depression Total Score: 5 11/23/19 24 1:33 PM EDT documented as of this encounter Care Teams Baby Counselor Relationship Specialty Start Date End Date Wanda Bonilla ANP [address] [place] [phone] PCP - General Family Medicine 09/03/20 documented as of this encounter
--- OUTSIDE RECORDS SUMMARY | 2024-09-01 17:22 | XMS_ITS | Encounter Summary ---
Author Organization [employer] Address [address] [facility] 7t [place] [address] Care Team Providers Care Tariff Inspector Name Role Phone Wanda Bonilla Primary Care Provider [phone] Reason for Visit * Reason Comments Med Refill Encounter Details Date Type Department Care Team ([facility] st Contact Info) Description 08/13/2024 Refill [facility] [address] [place] [address] Wanda Bonilla ANP [address] [place] [address] Type 2 diabetes mellitus with hyperglycemia, with long-term current use of insulin ([facility]) Social History Tobacco Use Types Packs/Day [...] Description 09/25/2024 2:00 PM EST Office Visit [facility] [address] [place] [address] Wanda Bonilla ANP [address] [place] [address] 10/21/2024 10:00 AM EDT Office Visit [address] [address] Shivani Small CNM [address] [place] [phone] documented as of this encounter Visit Diagnoses Diagnosis Type 2 diabetes mellitus with hyperglycemia, with long-term current use of insulin ([facility]) documented in this encounter Additional Health Concerns Assessment Noted Time PHQ-9 Depression Total Score: 5 11/23/19 24 1:33 PM EDT documented as of this encounter Care Teams Tariff Inspector Relationship Specialty Start Date End Date Wanda Bonilla ANP [address] [place] [address] PCP - General Family Medicine 09/03/20 documented as of this encounter
--- OUTSIDE RECORDS SUMMARY | 2024-09-01 17:22 | XMS_ITS | Encounter Summary ---
Author Organization [employer] Address [address] [facility] 7t [place] [address] Care Team Providers Care Business Services Officer Name Role Phone Wanda Bonilla TAHIR Primary Care Provider [phone] Reason for Visit * Reason Comments Med Refill Encounter Details Date Type Department Care Team ([facility] st Contact Info) Description 03/14/2024 Refill [facility] [address] [place], [place] [phone] Shivani Small CNM [address] [place] [address] Social History Tobacco Use Types Packs/Day Years [...] 2:00 PM EST Office Visit [facility] [address] [place] [phone] Wanda Bonilla ANP [address] [place] [phone] 10/21/2024 10:00 AM EDT Office Visit [facility] [address] [place] [address] Shivani Small CNM [address] [place] [address] documented as of this encounter Visit Diagnoses Not on filedocumented in this encounter Additional Health Concerns Assessment Noted Time PHQ-9 Depression Total Score: 5 11/23/19 24 1:33 PM EDT documented as of this encounter Care Teams Business Services Officer Relationship Specialty Start Date End Date Wanda Bonilla ANP [address] [place] [phone] PCP - General Family Medicine 09/03/20 documented as of this encounter
--- OUTSIDE RECORDS SUMMARY | 2024-09-01 17:23 | XMS_ITS | Clinical Summary ---
Author Organization [address] [facility] Address [address] [place] [address] Phone Care Team Providers Care Semiconductor Manufacturing Technician Name Role Phone Regina Su ADRIANNE Primary Care Provider [phone] Allergies No known active allergies Medications Medication [...] Upcoming Encounters Date Type Department Care Team ([facility] Contact Info) Description 09/22/2024 3:30 PM EST Office Visit [facility] - [place] [address] [phone] Mario Robbins, DPM [address] [address] Health Maintenance Due Date Last Done Comments [...] age to complete this topic Care Teams Semiconductor Manufacturing Technician Relationship Specialty Start Date End Date Regina Su FNP [address] [place] [address] PCP - General Nurse Practitioner 07/11/24
--- OUTSIDE RECORDS SUMMARY | 2024-09-01 17:23 | XMS_ITS | Encounter Summary ---
Author Organization [employer] Address [address] [facility] 7t [place] [address] Care Team Providers Care Event Decorator And Designer Name Role Phone Wanda Bonilla Primary Care Provider [phone] Reason for Visit * Reason Comments Female Dysuria Encounter Details Date Type Department Care Team ([facility] st Contact Info) Description 08/29/2024 11:20 AM EST Office Visit [facility] [address] [place] [phone] Name, MD Jaxson [address] [place], [place] [phone] Dysuria (Primary Dx); Suprapubic discomfort; History of hematuria Social History Tobacco Use Types Packs/Day Years [...] Sign Reading Time Taken Comments Blood Pressure 151/89 08/29/2024 11:18 AM EST Pulse 67 08/29/2024 11:18 AM EST Temperature 36.7 ??C (98 ??F) 08/29/2024 11:18 AM EST Respiratory Rate 18 08/29/2024 11:18 AM EST Oxygen Saturation - - Inhaled Oxygen Concentration - - Weight 80.9 kg (178 lb 6.4 oz) 08/29/2024 11:18 AM EST Height 160 cm (5' 3 ) 08/29/2024 11:18 AM EST Body Mass Index 31.6 08/29/2024 11:18 AM EST documented in this encounter Progress Notes * Jaxson Roman MD - 08/29/2024 11:20 AM EST Subjective Patient ID: Tank Max is a 59 y.o. female who presents for Female Dysuria. Patient comes for a sick visit. She complains of several days of dysuria, suprapubic discomfort, low back discomfort. No fever or chills. Symptoms with the patient are a chronic recurrent problem forher. She has personal history of kidney stones and atrophic vaginitis. The patient follows regularly with urology. The patient has vaginal estrogens that she does not use regularly. She is not sexually active. Urine dip today is normal but she described having hematuria last week. Female Dysuria Pertinent negatives include no abdominal pain, chills or fever. Review of Systems Constitutional: Negative for chills and fever. Gastrointestinal: Negative for abdominal pain. Genitourinary: Positive for difficulty urinating and dysuria. Negative for flank pain, vaginal bleeding and vaginal discharge. Visit Vitals BP (!) 151/89 (BP Location: Left arm, Patient Position: Sitting, BP Cuff Size: Adult) Pulse 67 Temp 98 ??F (36.7 ??C) (Oral) Resp 18 Ht 5' 3 (1.6 m) Wt 178 lb 6.4 oz (80.9 kg) BMI 31.60 kg/m?? OB Status Postmenopausal Smoking Status Some Days BSA 1.9 m?? Objective Physical Exam Constitutional: General: She is not in acute distress. Appearance: She is not toxic-appearing. Cardiovascular: Rate and Rhythm: Normal rate and regular rhythm. Pulmonary: Effort: Pulmonary effort is normal. No respiratory distress. Abdominal: Tenderness: There is no abdominal tenderness. Assessment/Plan Diagnoses and all orders for this visit: Dysuria Comments: Urine dip is not suggestive of UTI. Symptoms could be secondary to atrophic vaginitis or passing renal stone. She is recommended to restart using her vaginal estrogen. I recommended to drink plenty of water. I recommended to restart Flomax to facilitate passage of kidney stones. Keep upcoming appointment with urology. Call or come back if symptoms persist next week. Suprapubic discomfort History of hematuria Other orders - tamsulosin (Flomax) 0.4 MG 24 hr capsule; Take 1 capsule (0.4 mg) by mouth Once per day. - estradiol (Estrace) 0.1 MG/GM vaginal cream; Insert 1 g into the vagina Once per day. 1g vaginally x 14d, then twice weekly thereafter documented in this encounter Miscellaneous Notes * Addendum Note - Verona Robb MA - 08/29/2024 11:20 AM ESTAddended by: VERONA ROBB on: 08/29/2024 11:38 AM Modules accepted: Orders documented in this encounter Plan of Treatment Upcoming Encounters Date Type Department Care Team (Late st Contact Info) Description 09/25/2024 2:00 PM EST Office Visit [facility] [address] [place] [phone] Wanda Bonilla ANP [address] [place] [address] 10/21/2024 10:00 AM EDT Office Visit [address] [phone] Shivani Small, CINTHIA [address] [place] [address] documented as of this encounter Procedures Procedure Name Priority Date/Time Associated Diagnosis Comments POCT URINALYSIS DIPSTICK Routine 08/29/2024 11:38 AM EST Dysuria documented in this encounter Results * POCT urinalysis dipstick manually resulted (08/29/2024 11:38 AM EST) Color, UA Yellow Clarity, UA Clear Glucose, UA Negative Bilirubin, UA Negative Ketones, UA Negative Spec Grav, UA 1.025 Blood, UA Negative Negative, None Detected pH, UA 5.5 Protein, UA Trace Comment:30 mg/dl Urobilinogen, UA 0.2 Leukocytes, UA Negative Negative, Rare, Trace Nitrite, UA Negative Negative, None Detected Urine 08/29/2024 11:3 8 AM EST [facility] Name POINT OF CARE TEST ENTER/EDIT OR DERABLES Final Result documented in this encounter Visit Diagnoses Diagnosis Dysuria- Primary Suprapubic discomfort Abdominal pain, other specified site History of hematuria Personal history of other disorder of urinary system documented in this encounter Additional Health Concerns Assessment Noted Time PHQ-9 Depression Total Score: 5 11/23/19 24 1:33 PM EDT documented as of this encounter Care Teams Event Decorator And Designer Relationship Specialty Start Date End Date Wanda Bonilla ANP [address] [place] [phone] PCP - General Family Medicine 09/03/20 documented as of this encounter
--- OUTSIDE RECORDS SUMMARY | 2024-09-01 17:23 | XMS_ITS | Encounter Summary ---
Author Organization [facility] [employer] Address [address] [facility] [address] [place] [address] Care Team Providers Care Process Manager Name Role Phone Wanda Bonilla Primary Care Provider Reason for Visit * Reason Onset Date Comments Hospital Follow-up 11/15/2023 Encounter Details Date Type Department Care Team ([facility] st Contact Info) Description 11/15/2023 Telephone [facility] [address] [place] [address] Wanda Bonilla ANP [address] [place] [address] Hospital Follow-up Social History Tobacco Use Types [...] from pt requesting a HDF appt. Hospital: [facility] Date of admission: 11/09 Discharge date: 11/13 Diagnosed: Neuropathy documented in this encounter Plan of Treatment Upcoming Encounters Date Type Department Care Team (Late st Contact Info) Description 09/25/2024 2:00 PM EST Office Visit [address] [address] Wanda Bonilla ANP [address] [place] [address] 10/21/2024 10:00 AM EDT Office Visit [address] [address] Shivani Small CNM [address] [place] [address] documented as of this encounter Visit Diagnoses Not on filedocumented in this encounter Additional Health Concerns Assessment Noted Time PHQ-9 Depression Total Score: 0 08/25/19 23 1:48 PM EST documented as of this encounter Care Teams Process Manager Relationship Specialty Start Date End Date Wanda Bonilla ANP [address] [place] [id number] PCP - General Family Medicine 09/03/20 documented as of this encounter
--- OUTSIDE RECORDS SUMMARY | 2024-09-01 17:23 | XMS_ITS | Encounter Summary ---
Author Organization [employer] Address [address] 7[address] [place] [address] Care Team Providers Care It Analyst Name Role Phone Wanda Bonilla Primary Care Provider [phone] Encounter Details Date Type Department Care Team (Late st Contact Info) Description 09/26/2023 Telephone [facility] [address] [place] [address] Wanda Bonilla ANP [address] [place] [address] Social History Tobacco Use Types Packs/Day Years [...] 2:00 PM EST Office Visit [facility] [address] [place] [phone] Wanda Bonilla ANP [address] [place] [address] 10/21/2024 10:00 AM EDT Office Visit [address] [address] Shivani Small CNM [address] [place] [address] documented as of this encounter Visit Diagnoses Not on filedocumented in this encounter Additional Health Concerns Assessment Noted Time PHQ-9 Depression Total Score: 0 08/25/19 23 1:48 PM EST documented as of this encounter Care Teams It Analyst Relationship Specialty Start Date End Date Wanda Bonilla ANP [address] [place] [id number] PCP - General Family Medicine 09/03/20 documented as of this encounter
--- OUTSIDE RECORDS SUMMARY | 2024-09-01 17:23 | XMS_ITS | Encounter Summary ---
Author Organization [employer] Address [address] [facility] [address] [place] [address] Care Team Providers Care Sponsorship Manager Name Role Phone Wanda Bonilla Primary Care Provider [phone] Reason for Visit * Reason Onset Date Comments Appointment Request 02/04/2024 Encounter Details Date Type Department Care Team ([facility] st Contact Info) Description 02/04/2024 Telephone [facility] [address] [place] [address] Wanda Bonilla ANP [address] [place] [address] Appointment Request Social History Tobacco Use Types [...] Appt is still expected. Please contact at [phone] documented in this encounter Plan of Treatment Upcoming Encounters Date Type Department Care Team (Late st Contact Info) Description 09/25/2024 2:00 PM EST Office Visit [facility] [address] [place] [phone] Wanda Bonilla ANP [address] [place] [address] 10/21/2024 10:00 AM EDT Office Visit [facility] [address] [place] [address] Shivani Small CNM [address] [place] [address] documented as of this encounter Visit Diagnoses Not on filedocumented in this encounter Additional Health Concerns Assessment Noted Time PHQ-9 Depression Total Score: 5 11/23/19 24 1:33 PM EDT documented as of this encounter Care Teams Sponsorship Manager Relationship Specialty Start Date End Date Wanda Bonilla ANP [address] [place] [address] PCP - General Family Medicine 09/03/20 documented as of this encounter
--- OUTSIDE RECORDS SUMMARY | 2024-09-01 17:23 | XMS_ITS | Clinical Summary ---
Author Organization [employer] Address [address] [facility] [address] [place] [address] Care Team Providers Care Repairer Switchgear Name Role Phone Sandra Vieira Primary Care Provider [phone] Allergies Active Allergy Reactions Criticality Noted Date Comments Dulaglutide 04/21/2021 Other reaction(s): GI Problems Morphine Abdominal Pain 02/15/2024 Medications Emollient (Eucerin Original Healing) lotion use twice daily 022 Active traZODone (Desyrel) 150 MG tablet take 1 tablet by oral route at bedtime as needed Active triamcinolone (Kenalog) 0.1 % creamIndications :Perforating dermatosis Apply topically if needed in the morning and at bedtime (pain and swelling). 45 g 2 023 Active hydrOXYzine HCl (Atarax) 25 MG tablet TAKE 1 TABLET BY MOUTH THREE TIMES DAILY IN THE MORNING, AT NOON, AND AT BEDTIME FOR ITCHING 90 tablet 023 Active albuterol (2.5 MG/3ML) 0.083% nebulizer solutionIndicati ons:Asthma, unspecified asthma severity, unspecified whether complicated, unspecified whether persistent INHALE 1 AMPULE USING A NEBULIZER THREE TIMES DAILY NEEDED FOR WHEEZING OR SHORTNESS OF BREATH 90 mL 023 Active tamsulosin (Flomax) 0.4 MG 24 hr capsule TAKE 1 CAPSULE BY MOUTH EVERY DAY AT 6 IN THE EVENING 30 capsule 023 Active albuterol (Ventolin HFA) 108 (90 Base) MCG/ACT inhalerIndicatio ns:Moderate persistent asthma without complication INHALE 2 PUFFS [...] 30 tablet Active famotidine (Pepcid) 20 MG tabletIndication s:Heartburn Take 1 tablet twice daily as needed for acid reflux 60 tablet 1 Active insulin lispro (HumaLOG) 100 UNIT/ML injectionIndicat ions:Type 2 diabetes mellitus with hyperlipidemia (CMS/HCC) ([facility]) INJECT 20 UNITS SUBCUTANEOUSLY THREE TIMES DAILY WITH MEALS 15 mL Active Blood Pressure Monitoring (Omron 3 Series BP Monitor) device USE TO CHECK BLOOD PRESSURE DIRECTED Active hydrocortisone 1 % creamIndications :Rash Apply topically 2 times daily. 45 g Active FREESTYLE LITE test strip TEST BLOOD SUGAR THREE TIMES DAILY 100 strip Active budesonide (Pulmicort Flexhaler) 180 MCG/ACT inhalerIndicatio ns:Asthma, unspecified asthma severity, unspecified whether complicated, unspecified whether persistent Inhale 2 puffs 2 times daily. Rinse mouth after use. 1 each 2024 Active lansoprazole (Prevacid) [address] capsuleIndicatio ns:Heartburn TAKE 1 CAPSULE BY MOUTH EVERY DAY BEFORE BREAKFAST. DO NOT BREAK, CRUSH, DISSOLVE OR CHEW 90 capsule 1 Active Stool Softener/Laxativ e 50-8.6 MG tablet TAKE 2 TABLETS BY MOUTH EVERY DAY AT BEDTIME Active Diclofenac Sodium 1 % gel APPLY 2 GRAMS TOPICALLY EVERY 6 HOURS 100 g Active D3-1000 25 MCG (1000 UT) capsuleIndicatio ns:Low vitamin D level TAKE 1 CAPSULE BY MOUTH EVERY MORNING 90 capsule 2 024 Active rosuvastatin (Crestor) 5 MG tabletIndication s:Type 2 diabetes mellitus with hyperlipidemia ([facility]/HCC) ([facility]) TAKE 1 TABLET BY MOUTH EVERY EVENING 90 tablet 3 024 Active pioglitazone (Actos) 15 MG tabletIndication s:Type 2 diabetes mellitus with hyperlipidemia ([facility]/HCC) ([facility]) TAKE 1 TABLET BY MOUTH EVERY MORNING 90 tablet 3 024 Active lisinopril 40 MG tablet TAKE 1 TABLET BY MOUTH EVERY EVENING 90 tablet 3 024 Active Aspirin Low Dose 81 MG EC tablet TAKE 1 TABLET BY MOUTH EVERY EVENING 90 tablet 3 024 Active TRUEplus Lancets 33G [facility] TEST BLOOD SUGAR THREE TIMES DAILY 100 each 11 024 Active lidocaine (Lidoderm) 5 % patchIndications :Pain APPLY 1 PATCH TOPICALLY TO SKIN, LEAVE ON FOR 12 HOURS AND OFF FOR 12 HOURS DIRECTED 30 patch 2 024 Active amLODIPine (Norvasc) 10 MG tabletIndication s:Essential hypertension TAKE 1 TABLET BY MOUTH EVERYDAY AT NOON 90 tablet 3 024 Active Ozempic, 0.25 or 0.5 MG/DOSE, 2 MG/3ML solution pen-injectorIndi cations:Diabetic polyneuropathy associated with type 2 diabetes mellitus ([facility]) INJECT 0.5 MG SUBCUTANEOUSLY EVERY 7 DAYS IN THE ABDOMEN, THIGHS, OR UPPER ARM, ROTATE INJECTION SITES. 3 mL 1 025 Active insulin pen needle (Easy Touch Pen Tolstoy) 31G X 8 mm miscIndications: Diabetic polyneuropathy associated with type 2 diabetes mellitus ([facility]) USE DIRECTED FOUR TIMES DAILY 100 each 025 Active Lantus SoloStar 100 UNIT/ML penIndications:T ype 2 diabetes mellitus with hyperglycemia, with long-term current use of insulin ([facility]) INJECT 54 UNITS SUBCUTANEOUSLY EVERY DAY 15 mL 3 025 Active gabapentin (Neurontin) 300 MG capsule TAKE 1 CAPSULE BY MOUTH TWICE DAILY IN THE MORNING AND IN THE EVENING and TAKE 2 CAPSULES BY MOUTH EVERY DAY AT BEDTIME 120 capsule 3 025 Active rOPINIRole (Requip) 0.5 MG tabletIndication s:Restless legs TAKE 1 TABLET BY MOUTH AT BEDTIME 1-3 HOURS BEFORE BEDTIME 30 tablet 2 025 Active carvedilol (Coreg) 6.25 MG tabletIndication s:Primary hypertension TAKE 1 TABLET BY MOUTH TWICE DAILY AT NOON AND BEDTIME 180 tablet 025 Active tamsulosin (Flomax) 0.4 MG 24 hr capsule Take 1 capsule (0.4 mg) by mouth Once per day. 30 capsule 025 Active estradiol (Estrace) 0.1 MG/GM vaginal cream Insert 1 g into the vagina Once per day. 1g vaginally x 14d, then twice weekly thereafter 45 g 2 025 Active insulin pen needle (UltiCare Short Pen Tolstoy) 31G X 8 mm miscIndications: Diabetic polyneuropathy associated with type 2 diabetes mellitus ([facility]) USE FOUR TIMES DAILY WITH INSULIN 100 each 11 024 2024 Discontinued estradiol (Estrace) 0.1 MG/GM vaginal cream Insert 1 g into the vagina in the morning. 1g vaginally x 14d, then twice weekly thereafter 45 g 2 024 2024 Discontinued(R eorder (will not trigger notification to Pharmacy)) insulin glargine (Lantus SoloStar) 100 UNIT/ML penIndications:T ype 2 diabetes mellitus with hyperglycemia, with long-term current use of insulin ([facility]) INJECT 54 UNITS SUBCUTANEOUSLY EVERY DAY 15 mL 3 024 2024 Discontinued gabapentin (Neurontin) 300 MG capsule TAKE 1 CAPSULE BY MOUTH TWICE DAILY IN THE MORNING AND IN THE EVENING and TAKE 2 CAPSULES BY MOUTH EVERY DAY AT BEDTIME 120 capsule 3 024 2024 Discontinued rOPINIRole (Requip) 0.5 MG tabletIndication s:Restless legs TAKE 1 TABLET BY MOUTH 1 TO 3 HOURS BEFORE BEDTIME 30 tablet 2 024 2024 Discontinued carvedilol (Coreg) 6.25 MG tabletIndication s:Primary hypertension Take 1 tablet (6.25 mg) by mouth 2 times daily. 60 tablet 2 024 01/28/ 2025 Discontinued predniSONE (Deltasone) 20 MG tablet Take [...] Chest pain 12/07/2023 Overview (12/07/2023): Admitted at [facility] 11/11/-11/14/23 ?NSTEMI Optimize BP, DM, minimize risk [...] Psychiatrist decreased seroquel. She was referred to [facility] for further eval. History [...] 12/21/2017 Cirrhosis of liver 07/27/2017 Overview (10/01/2023): [facility] GI D/t HCV (suspect s/p blood transfusion years ago) Has not been able to tolerate HCV medications thus far tried incl meli. EGD 04/2022 GE junction at 36 cms. [...] Hepatitis C 04/24/2023 08/02/2023 Urinary tract infection 04/24/202310/2023 Chronic hepatitis 04/24/2023 08/02/2023 UTI (urinary tract infection) 03/09/2023 08/02/2023 Assessment & Plan (03/09/2023 2:36 PM EDT): Drink plenty of water Do not hold the urine Insulin dependent type 1 diabetes mellitus 09/24/2018 08/02/2023 Encounters Date Type Department Care Team Description 09/01/2024 Orders Only [facility] External Provider, [facility] 08/29/2024 11:20 AM EST Office Visit [facility] [address] [place] [phone] Name, MD Jaxson Dysuria (Primary Dx); Suprapubic discomfort; History of hematuria 08/26/2024 Refill [facility] [address] [place] [address] Sandra Vieira ANP Primary hypertension 08/16/2024 Refill [facility] [address] [place] [address] Sandra Vieira ANP Restless legs 08/15/2024 Travel 08/14/2024 Telephone [facility] [address] [place] [address] Adolfo Fernando, Carine 08/13/2024 Refill [facility] [address] [place] [address] Sandra Vieira ANP Type 2 diabetes mellitus with hyperglycemia, with long-term current use of insulin ([facility]) 08/11/2024 Refill [facility] [address] [place] [address] Sandra Vieira ANP Diabetic polyneuropathy associated with type 2 diabetes mellitus ([facility]) 08/04/2024 9:40 AM EST Office Visit [facility] [address] [place] [address] Adolfo Benitez MD Mild persistent asthma with acute exacerbation (Primary Dx); Hypertension, unspecified type; Viral URI 08/04/2024 Telephone [facility] [address] [place] [address] Sandra Vieira ANP Nurse Triage 08/03/2024 Refill [facility] [address] [place] [address] Sandra Vieira ANP Essential hypertension 08/01/2024 Refill [facility] [address] [place] [address] Sandra Vieira ANP Diabetic polyneuropathy associated with type 2 diabetes mellitus ([facility]) 07/28/2024 Telephone [facility] [address] [place] [phone] Erika Rosa, [place] August recall 07/28/2024 Refill [facility] [address] [place] [address] Sandra Vieira ANP Essential hypertension 07/25/2024 Telephone [facility] [address] [place] [address] Sandra Vieira ANP Results 07/24/2024 1:15 PM EST Office Visit [facility] [address] [place] [address] Sandra Vieira ANP Diabetic polyneuropathy associated with type 2 diabetes mellitus (CMS/HCC) (Primary Dx); Primary hypertension; Renal stones; Dysuria 07/24/2024 Orders Only [facility] [address] [place] [phone] Sandra Vieira ANP 07/24/2024 Travel 07/18/2024 Refill [facility] [address] [place] [phone] Sandra Vieira ANP Pain 07/08/2024 Telephone [facility] [address] [place] [phone] Sandra Vieira ANP Appointment Request 07/03/2024 Orders Only [facility] External Provider, [facility] 06/30/2024 Telephone [facility] [address] [place] [phone] Sandra Vieira ANP Results 06/18/2024 Telephone [facility] [address] [place] [address] Sandra Vieira ANP c/b requested 06/17/2024 Orders Only GENERIC EXTERNAL DATA DEPARTMENT Provider, Generic External Data 06/16/2024 Telephone [facility] [address] [place] [address] Smiley Scott, OD 06/11/2024 Telephone [facility] [address] [place] [phone] Sandra Vieira ANP 06/10/2024 Telephone [facility] [address] [place] [address] Erika Rosa MA PA for Ozempic 2mg/3ml 06/09/2024 Telephone [facility] [address] [place] [address] Sandra Vieira ANP 06/06/2024 Telephone [facility] [address] [place] [phone] Janelle Cordova RN Ozempic PA 06/05/2024 2:30 PM EST Office Visit [facility] [address] [place] [phone] Sandra Vieira ANP Diabetic polyneuropathy associated with type 2 diabetes mellitus (CMS/HCC) (Primary Dx); Chronic hepatitis C without hepatic coma (CMS/HCC); UTI symptoms; Bilateral carpal tunnel syndrome; Foot mass, left; Low back pain at multiple sites; Ovarian mass, right; Pituitary microadenoma (CMS/HCC) 06/05/2024 Travel 06/05/2024 Refill [facility] [address] [place] [address] Sandra Vieira ANP 06/04/2024 Orders Only [facility] [address] [place] [address] Sandra Vieira ANP Primary hypertension (Primary Dx) from Last 3 [...] 18 08/29/2024 11:18 AM EST Oxygen Saturation 97% 08/04/2024 9:32 AM EST Inhaled Oxygen Concentration - - Weight 80.9 kg (178 lb 6.4 oz) 08/29/2024 11:18 AM EST Height 160 cm (5' 3 ) 08/29/2024 11:18 AM EST Body Mass Index 31.6 08/29/2024 11:18 AM EST Plan of Treatment Upcoming Encounters Date Type Department Care Team (Late st Contact Info) Description 09/25/2024 2:00 PM EST Office Visit [facility] [address] [place] [address] Sandra Vieira ANP [address] [place] [address] 10/21/2024 10:00 AM EDT Office Visit [facility] [address] [place] [address] Staci Shivani, CNM [address] [place] [address] Health Maintenance Due Date Last Done Comments [...] years 1-dose series) 2023 COVID-19 Vaccine ( season) 2024 12/29/2020, 12/01/2020 Influenza Vaccine (#1) [...] Alcohol/Substance Use Screening 07/24/2025 07/24/2024 Tobacco Screening 08/29/2025 08/29/2024 Cervical Cancer Screening 05/02/2026 HPV/Cotest 05/02/2026 05/02/2021 [...] TROPONIN I Routine 09/01/2024 3:51 PM EST LIPASE Routine 09/01/2024 3:51 PM EST MAGNESIUM Routine 09/01/2024 3:51 PM EST BASIC METABOLIC PANEL Routine 09/01/2024 3:51 PM EST HEPATIC FUNCTION PANEL Routine 09/01/2024 3:51 PM EST B TYPE NATRIURETIC PEPTIDE (BNP) Routine 09/01/2024 3:51 PM EST PROTHROMBIN TIME-INR Routine 09/01/2024 3:51 PM EST CBC WITH AUTO DIFFERENTIAL Routine 09/01/2024 3:51 PM EST SARS COV2/INFLUENZA A/B AND RSV RNA QL NAAT Routine 09/01/2024 3:51 PM EST XR CHEST 2 VIEWS Routine 09/01/2024 1:48 PM EST POCT URINALYSIS DIPSTICK Routine 08/29/2024 11:38 AM EST Dysuria POCT INFLUENZA B (ID NOW RAPID MOLECULAR) [...] Recently Relevant to Health Maintenance Results * (ABNORMAL) High Sensitivity Troponin I (09/01/2024 3:51 PM EST) Pathologist [facility] TROPONIN I HIGH SENSITIVITY 143.5(HH) <3.5 - 17.0 ng/L [facility] Comment:Critical value for t est(s):TROP-IHS Results called to em back by: RENNY Person calling:[email or web address] Date:[id number]:[id number] [place] high sensitivity Troponin-I results should beused in conjunction with other diagnostic information suchas ECG, clinical observations and information, and patientsymptoms to aid in the diagnosis of AR. 09/01/2024 3:51 PM EST 09/01/2024 3:53 PM EST us Generic External Data Provider LAB BLOOD ORDERAB LES Final Result [facility] [address] [place] [phone] * SARS-CoV-2 RNA, Influenza A/B, and RSV RNA, Ql NAAT (09/01/2024 3:51 PM EST) [facility] Influenza A PCR NEGATIVE Negative [facility] Influenza B PCR NEGATIVE Negative [facility] Resp Syncy Virus RNA Qual PCR NEGATIVE Negative [facility] SARS COV2 PCR NEGATIVE Negative [facility] Comment:All test results mus t be [...] use by authorized laboratories.Testing performed on the [employer] GeneXpert utilizingreal-time RT-PCR.All SARS CoV2 and positive influenza A/B results arereported to [facility]. 09/01/2024 3:51 PM EST 09/01/2024 3:53 PM EST us Generic External Data Provider LAB MICROBIOLOGY - GENERAL ORDERABLES Final Result [facility] [address] [place] [address] [phone] * (ABNORMAL) CBC auto differential (09/01/2024 3:51 PM EST) White Blood Count 4.9 4.8 - 10.8 X10*3/uL [facility] Red Blood Count 4.25 4.20 - 5.50 X10*6/uL [facility] Hemoglobin 12.0 12.0 - 16.0 g/dl [facility] Hematocrit 34.9(L) 37.0 - 47.0 % [facility] Mean Corpuscular Volume 82.1 80.0 - 98.0 fL [facility] Mean Corpuscular Hemoglobin 28.2 27.0 - 33.0 pg [facility] Mean Corpuscular HGB Conc 34.4 31.0 - 35.0 g/dl [facility] Red Cell Distribution Width 12.6 11.0 - 16.0 % [facility] Platelet Count 110(L) 160 - 400 X10*3/uL [facility] Mean Platelet Volume 10.3 9.4 - 12.3 fL [facility] Neutrophils Percent Auto 61.2 45 - 73 % [facility] Imm Gran Pct Auto 0.2 0.0 - 0.4 % [facility] Lymphocytes Percent Auto 26.4 20 - 40 % [facility] Monocytes Percent Auto 11.0 2 - 11 % [facility] Eosinophils Percent Auto 1.0 0 - 4 % [facility] Basophils Percent Auto 0.2 0 - 2 % [facility] NRBC Pct Auto 0.0 0.0 - 0.2 /100WBC [facility] Neutrophils Absolute Auto 3.0 2.0 - 8.3 x10*3/uL [facility] Imm Gran Abs Auto 0.01 0.00 - 0.03 X10*3/uL [facility] Lymphocytes Absolute Auto 1.3 1.2 - 4.9 X10*3/uL [facility] Monocytes Absolute Auto 0.5 0.1 - 1.2 X10*3/uL [facility] Eosinophils Absolute Auto 0.1 0.0 - 0.4 X10*3/uL [facility] Basophils Absolute Auto 0.0 0.0 - 0.2 X10*3/uL [facility] NRBC Abs Auto 0.000 0.0 - 0.012 X10*3/uL [facility] 09/01/2024 3:51 PM EST 09/01/2024 3:53 PM EST us Generic External Data Provider LAB BLOOD ORDERAB LES Final Result Performing Organization Address City/State/[facility] Co de Phone Number [facility] [address] [place] [phone] * Prothrombin Time-INR (09/01/2024 3:51 PM EST) Prothrombin Time 11.5 10.9 - 12.4 SEC [facility] INTERNATIONAL NORM RATIO 1.0 0.9 - 1.1 [facility] Comment:INTERNATIONAL NORMAL IZED RATIO (INR) [...] ORDERAB LES Final Result Performing Organization Address [facility] de Phone Number [facility] [address] [place] [address] [phone] * (ABNORMAL) B Type Natriuretic Peptide (BNP) (09/01/2024 3:51 PM EST) B Type Natriuretic Peptide 104(H) <100 pg/mL [facility] Comment:For those patients w ho are being treated with Natrecor(nesiritide, recombinant BNP), BNP testing should beperformed at least two hours post treatment in order toensure that only endogenous levels of BNP are detected. 09/01/2024 3:51 PM EST 09/01/2024 3:53 PM EST Generic External Data Provider LAB BLOOD ORDERAB LES Final Result Performing Organization Address [facility] de Phone Number [facility] [address] [place] [phone] [phone] * XR Chest 2 Views (09/01/2024 1:48 PM EST) Anatomical Region Laterality Modality Chest Radiographic Nina ging 09/01/2024 1:48 PM EST Narrative 09/01/2024 2:23 PM EST ? [facility] ?[address] ?[place] [address] ?XRay Report ? Signed ? Patient: Colon,Milsa ?MR#: [id number] ? : 1965 ?Acct:[id number] ? Age/Sex: 59 / F ?ADM Date: 02/03/25 ? Loc: HO.ED ? Attending Dr: ? Ordering Physician: Angela Reyes ?? Date of Service: 09/01/24 ?? Procedure(s): XR chest 2V ?? Accession Number(s): [id number] ? cc: Angela Reyes; SANDRA VIEIRA NP [...] shoulder plain films. ? Electronically signed by: ??Mudno England MD ??09/01/2024 02:20 PM EST RP ? Dictated By: ?Mundo England MD ? Signed By: ?<Electronically signed by Mundo England MD in OV> ?09/01/24 1420 ? DD/ 1348 ? TD/TT: 09/01/24 1410 ? Container Finishing Inspector: ? Procedure Note Concepción Ndiaye - 09/01/2024 [place] [address] XRay Report Signed Patient: Tank MaxMR#: [id number] : 1965Acct:[id number] Age/Sex: 59 / FADM Date: 09/01/24 Loc: HO.ED Attending Dr: Ordering Physician: Angela Reyes Date of Service: 09/01/24 Procedure(s): XR chest 2V Accession Number(s): [id number] cc: Angela Reyes; SANDRA VIEIRA NP EXAMINATION: [...] 09/01/24 1420 DD/ 1348 TD/TT: 09/01/24 1410 Container Finishing Inspector: [facility] External Provider IMG XR PROCEDURES Final Result * POCT urinalysis dipstick manually resulted (08/29/2024 11:38 AM EST) Only the most recent of2 resultswithin the time period is included. Color, UA Yellow Clarity, UA Clear Glucose, UA Negative Bilirubin, UA Negative Ketones, UA Negative Spec Grav, UA 1.025 Blood, UA Negative Negative, None Detected pH, UA 5.5 Protein, UA Trace Comment:30 mg/dl Urobilinogen, UA 0.2 Leukocytes, UA Negative Negative, Rare, Trace Nitrite, UA Negative Negative, None Detected Urine 08/29/2024 11:3 8 AM EST Jaxson Roman MD POINT OF CARE TEST ENTER/EDIT OR DERABLES Final Result * Influenza B (ID NOW Rapid Molecular) (08/04/2024 9:46 AM EST) Influenza B Negative Negative, Indeterminate [facility] Swab 08/04/2024 9:46 AM EST Adolfo Benitez MD POINT OF CARE TEST ENTER/EDIT OR DERABLES Final Result [facility] [address] [place] [phone] * Influenza A (ID NOW Rapid Molecular) (08/04/2024 9:46 AM EST) Influenza A Negative Negative, Indeterminate [facility] Swab 08/04/2024 9:46 AM EST us Adolfo Benitez MD POINT OF CARE TEST ENTER/EDIT OR DERABLES Final Result Performing Organization Address [facility] Co de Phone Number [facility] [address] [place] [phone] * POCT Rapid COVID Ag (08/04/2024 9:46 AM EST) Rapid COVID Ag Negative [facility] Swab 08/04/2024 9:46 AM EST us Adolfo Benitez MD POINT OF CARE TEST ENTER/EDIT OR DERABLES Final Result Performing Organization Address [facility] Phone Number [facility] [address] [place] [phone] * Culture, Urine, Routine (07/24/2024 9:51 PM EST) Urine Urine specimen obtained by clean catch procedure / Unknown 07/24/2024 9:51 PM EST 07/24/2024 9:51 PM EST Comment:UACC Narrative [facility] - 07/26/2024 11:19 AM EST Urine Culture Report Result Urine Culture > 100,000 cfu/ml Urine Culture Mixed bacterial nova characteristic of Urine Culture urogenital contamination. Specimen Source: Urine clean catch us Sandra HARO LAB MICROBIOLOGY - GENERAL ORDER RAY Final Result Performing Organization Address [facility] Co de Phone Number [facility] [address] [place] [phone] * (ABNORMAL) Urinalysis, Complete, with Reflex to Culture (07/24/2024 2:48 PM EST) Color Urine Dark Yellow [facility] Appearance Urine Cloudy [facility] PH 5.5 5.0 - 9.0 [facility] Glucose Urine UA 100(A) Negative mg/dL [facility] Urine Blood Negative Negative [facility] Specific Palmer - Urine 1.025 1.005 - 1.025 [facility] Urine Protein Trace Neg-Trace mg/dL [facility] Urine Ketones Trace Negative mg/dL [facility] Nitrite Urine Negative Negative [facility] Leukocyte Esterase Urine Small (1+)(A) Negative [facility] RBC Urine 0-2 0 - 2 /HPF [facility] Urine WBC 11-20(A) 0 - 5 /HPF [facility] Urine Squamous Epithelial Cell >20 0 - 2 /HPF [facility] CALCIUM OXALATE CRYSTAL, UR Present [facility] Urine Bacteria 4+ None Seen [facility] Hyaline Casts, Urine 3-5 0 - 2 /LPF [facility] Urine 07/24/2024 2:48 PM EST 07/24/2024 6:01 PM EST Narrative [facility] - 07/24/2024 6:55 PM EST Urine, Clean Catch Sandra Vieira [facility] URINE ORDERABLES Final Resul t Performing Organization Address City/State/[facility] Co de Phone Number [facility] [address] [place] [phone] * BI Mammogram Screening Tomosynthesis Bilateral (07/03/2024 9:53 AM EST) Anatomical Region Laterality Modality Breast Bilateral Mammography 07/03/2024 9:53 AM EST Narrative 07/09/2024 10:57 AM EST ? [facility] ? [address] ?[place] [address] ? Mammography Report ? Signed ? Patient: Colon,Milsa ?MR#: [id number] ? : 1965 ?Acct:[id number] ? Age/Sex: 59 / F ?ADM Date: 12/05/24 ? Loc: HO.MAMMO ? Attending Dr: Herminio Britton MD ? Ordering Physician: Herminio Britton MD ?Results: 1Negativ ?? e ? Date of Service: 07/03/24 ?Follow Up: 1 Year From Orig ?? inal Mammogram ? Procedure(s): MM tomosynthesis screening BI ?? Accession Number(s): [id number] ? cc: SANDRA VIEIRA NP; Herminio Britton [...] by Alysa Faith, DO in OV> ? 07/09/241053 ? DD/ 0953 ? TD/TT: 07/03/24 1018 ? Container Finishing Inspector: ? Procedure Note Donotuseinterpreter, Image - 07/09/2024 [facility] [address] [place], [place] [address] Mammography Report Signed Patient: Barrera Max#: [id number] : 1965Acct:[id number] Age/Sex: 59 / FADM Date: 07/03/24 Loc: HO.MAMMO Attending Dr: Herminio Britton MD Ordering Physician: Herminio Britton MDResults: 1Negativ e Date of Service: 07/03/24Follow Up: 1 Year From Orig inal Mammogram Procedure(s): MM tomosynthesis screening BI Accession Number(s): [id number] cc: SANDRA VIEIRA NP; Herminio Britton MD EXAMINATION: MM SCREENING DIGITAL [...] 07/09/24 1054 DD/ 0953 TD/TT: 07/03/24 1018 Container Finishing Inspector: [facility] External Provider IMG BI PROCEDURES Edited Result - Final * Pap Smear (06/17/2024 10:30 AM EST) 06/17/2024 10:3 0 AM EST 06/18/2024 9:15 AM EST [facility] - 06/20/2024 9:28 AM EST ----- ------- Name: Colon,Milsa ?Age/Sex: 59/F ? : 1965 Unit#: [id number] ?? Attend Dr: Herminio Britton MD ?Re06/17/24 ?Status: DEP REF ? Location: HO.LNP ?Disch: ? ----- ------- SPEC : [id number] ?RECD: 06/18/24 ? STATUS: ??SOUT ? REQ NUM: [id number] ? MILY: 06/17/24 ? SUBM DR: Herminio Britton MD ? ENTERED: ??06/18/24 ?SP TYPE: Pap Smr ?OTHR DR: SANDRA [...] Copies To: ?? SANDRA VIEIRA NP ?? [facility] ?? [address] ?? [place] [address] ?? [phone] ?? Herminio Britton MD ?? [facility] ?? [address] ?? [place] [address] ?? [phone] ----- ------- Signed (signature on file) AVELINO Romero (ASCP) 06/20/2428 ? ----- ------- ? END OF REPORT ? Generic External Data Provider LAB CYTOLOGY ORDE RABLES Final Result [facility] [address] [place] [phone] * (ABNORMAL) POCT HGB A1C (06/05/2024 3:27 PM EST) Pathologist [facility] Hemoglobin A1C 7.6(A) 4.0 - 6.0 % QC Media Lot # [id number] Lot# Expiration Date , Blood 06/05/2024 3:27 PM EST Sandra Vieira [facility] POINT OF CARE TEST ENTER/EDIT OR DERABLES Final Result * POCT Glucose (06/05/2024 3:26 PM EST) Pathologist [facility] Glucose Blood, POC 137 60 - 200 mg/dL QC Media Lot # [id number] Lot# Expiration Date ,025 Blood Capillary blood specimen / Unknown 06/05/2024 3:26 PM EST [facility] POINT OF CARE TEST ENTER/EDIT OR DERABLES Final Result * HIV-1/2 Antigen and Antibodies, Fourth Generation, with Reflexes (03/24/2024 3:20 PM EDT) HIV AB/AG Nonreactive Nonreactive [facility] Comment:HIV-1 p24 Ag and/or HIV-1/HIV-2 Ab not detected.A test result that is nonreactive does not exclude thepossibility of exposure to or infection with HIV-1 and/orHIV-2. Nonreactive results in this assay for individualswith prior exposure to HIV-1 and/or HIV-2 may be due toantigen and antibody levels that are below the limit ofdetection of this assay.The Adreima HIV Ag/Ab Combo assay result andsupplemental assay results should be interpreted inconjunction with the patient's clinical presentation,history and other laboratory results. If the results areinconsistent with clinical evidence, additional testing issuggested to confirm the result. 03/24/2024 3:20 PM EDT 03/24/2024 3:20 PM EDT Generic External Data Provider LAB BLOOD ORDERAB LES Final Result [facility] [address] [place] [phone] * (ABNORMAL) Albumin, Random Urine W/Creatinine (05/01/2023 11:30 AM EDT) Creatinine, Urine 302.38 mg/dL [facility] Microalbumin Urine 107.0 mg/L H [facility] Microalbum Creatinine Ratio Ur 35.3(H) <30 ug/mg cr [facility] Comment:Albumin/Creatinine R atio Reference Ranges: Normal: < 30 ug/mg creatinine Microalbuminuria: 30 - 300 ug/mg creatinineClinical Albuminuria: > 300 ug/mg creatinine Urine (Urine, Random) 05/01/2023 11:30 AM EDT 05/01/2023 1:17 PM EDT Sandra Vieira [facility] URINE ORDERABLES Final Resul t Performing Organization Address [facility] de Phone Number [facility] [address] [place] [phone] * (ABNORMAL) Lipid Panel, Standard (05/01/2023 11:30 AM EDT) Triglycerides 189(H) <150 mg/dL [facility] Comment:Desirable Triglyceri de: less than 150 mg/dLBorderline High Triglyceride 150-199 mg/dLHigh Triglyceride: 200-499 mg/dLVery High Triglyceride: greater than or equal to 5OO mg/dL Cholesterol 188 <200 mg/dL [facility] Comment:Desirable Cholestero l: less than 200 mg/dLBorderline High Cholesterol: 200-239 mg/dLHigh Cholesterol: greater than 239 mg/dL LDL Cholesterol Calculated 98 <100 mg/dL [facility] Comment:Desirable LDL: less than 100 mg/dLNear Optimal/Above Optimal LDL: 110- 129 mg/dLBorderline High LDL: 130-159 mg/dLHigh LDL: 160-189 mg/dLVery High LDL: greater than or equal to 190 mg/dL HDL Cholesterol 53 >40 mg/dL [facility] Comment:Desirable HDL: great er than 40 mg/dL Note: This HDL assay may give artificially low results in patients with liver disease. Blood Venous blood specimen / Unknown 05/01/2023 11:30 AM EDT 05/01/2023 1:23 PM EDT us Sandra Vieira ANP LAB BLOOD ORDERABLES Final Resul t Performing Organization Address [facility] Co de Phone Number [facility] [address] [place] [phone] * HPV mRNA E6/E7 (05/02/2021 12:00 AM EDT) HPV nRNA E6/E7 Not Detected Not Detected [facility] Comment: Methodology: Power Chisel Operator-Mediated Amplification This assay detects E6/E7 viral messenger RNA (mRNA) from 14 high-risk HPV types (16,18,31,33,35,39,45,51,52,56,58,59,66,68). ? The analytical performance characteristics of this assay have been determined by [employer]. The modifications have not been cleared or approved by the FDA. This assay has been validated pursuant to the CLIA regulations and is used for clinical purposes. ?? For additional information, please refer to http://education.Wiser (formerly [employer])/faq/UTS664y9 (This link if provided for information/ educational purposes only.) 05/02/2021 [facility] Vieira [facility] BLOOD ORDERABLES Final Resul t Performing Organization Address City/State/[facility] Co de Phone Number [facility] [address] from Last 3 Months or Most Recently Relevant to Health Maintenance Insurance [address] [place], [place] [address]Widdle C3 Care Teams Repairer Switchgear Relationship Specialty Start Date End Date Sandra Vieira ANP [address] [place] [address] PCP - General Family Medicine 09/03/20
--- OUTSIDE RECORDS SUMMARY | 2024-09-01 17:23 | XMS_ITS | Encounter Summary ---
Author Organization [employer] Address [address] [facility] 7t [place] [address] Care Team Providers Care Fire Equipment Repairer Inspector Name Role Phone Wanda Bonilla Primary Care Provider [phone] Reason for Visit * Reason Comments Med Refill Encounter Details Date Type Department Care Team ([facility] st Contact Info) Description 12/03/2023 Telephone [facility] [address] [place], [place] [phone] Shelli Vo MD [address] [place], [place] [phone] Med Refill Social History Tobacco Use Types [...] your housing situation today? I have dhaval lozaad 05/14/[address] you li [...] 2:00 PM EST Office Visit [facility] [address] [place] [address] Wanda Bonilla ANP [address] [place] [address] 10/21/2024 10:00 AM EDT Office Visit [facility] [address] [place] [address] Shivani Small CNM [address] [place] [address] documented as of this encounter Visit Diagnoses Diagnosis Asthma, unspecified asthma severity, unspecified whether complicated, unspecified whether persistent documented in this encounter Additional Health Concerns Assessment Noted Time PHQ-9 Depression Total Score: 5 11/23/19 24 1:33 PM EDT documented as of this encounter Care Teams Fire Equipment Repairer Inspector Relationship Specialty Start Date End Date Wanda Bonilla ANP [address] [place] [phone] PCP - General Family Medicine 09/03/20 documented as of this encounter
--- OUTSIDE RECORDS SUMMARY | 2024-09-01 17:23 | XMS_ITS | Encounter Summary ---
Author Organization [employer] [facility] Address [address] [place] [address] 7 [place] [address] Care Team Providers Care Food Safety Officer Name Role Phone Irene Wanda HARO Primary Care Provider [phone] Reason for Visit * Reason Comments Med Refill Encounter Details Date Type Department Care Team (Late Contact Info) Description 04/03/[address] [facility] MED[facility]INE [address] [place] [address] [phone] Brenda Lopez MD [address] [place] [address] [phone] Social History Tobacco Use Types Packs/Day Years [...] Description 09/25/2024 2:00 PM EST Office Visit [facility] [address] [place] [address] [phone] Wanda Bonilla ANP 230 [place], [place] [phone] 10/21/2024 10:00 AM EDT Office Visit [facility] [address] [place] [address] Shivani Small CNM [address] [place] [address] documented as of this encounter Visit Diagnoses Not on filedocumented in this encounter Additional Health Concerns Assessment Noted Time PHQ-9 Depression Total Score: 0 08/25/19 23 1:48 PM EST documented as of this encounter Care Teams Food Safety Officer Relationship Specialty Start Date End Date Wanda Bonilla ANP [address] [place], [place] [phone] PCP - General Family Medicine 09/03/20 documented as of this encounter
--- OUTSIDE RECORDS SUMMARY | 2024-09-01 17:23 | XMS_ITS | Encounter Summary ---
Author Organization [employer] Address [address] [facility] 7t [place] [address] Care Team Providers Care Stone Layout Marker Name Role Phone Wanda Bonilla Primary Care Provider [phone] Reason for Visit * Reason Onset Date Comments Nurse Triage 03/09/2023 Encounter Details Date Type Department Care Team ([facility] st Contact Info) Description 03/09/2023 Telephone [facility] MED[facility]INE 230 [place] [address] Wanda Bonilla ANP 230 [place] [address] Nurse Triage Social History Tobacco Use Types [...] 03/09/2023 9:53 AM EDT Triage call with [employer] Nursing Program Coordinator ID [id number] Pt was seen in ED 02/25 for UTI and started on fluconazole and cefdinir 300mg for 7 days. Pt is finished with antibiotics and is reporting bladder discomfort , burning with urination and frequency which continues. Pt is advised to come to [facility] today open till 4pm to be seen [...] caller accepted this outcome Please contact at [phone] Ghanaian documented in this encounter Plan of Treatment Upcoming Encounters Date Type Department Care Team (Late st Contact Info) Description 09/25/2024 2:00 PM EST Office Visit [address] [address] Wanda Bonilla ANP [address] [place] [address] 10/21/2024 10:00 AM EDT Office Visit [address] [address] Shivani Small CNM [address] [place] [address] documented as of this encounter Visit Diagnoses Not on filedocumented in this encounter Additional Health Concerns Assessment Noted Time PHQ-9 Depression Total Score: 0 08/25/19 23 1:48 PM EST documented as of this encounter Care Teams Stone Layout Marker Relationship Specialty Start Date End Date Wanda Bonilla ANP [address] [place] [phone] PCP - General Family Medicine 09/03/20 documented as of this encounter
--- OUTSIDE RECORDS SUMMARY | 2024-09-01 17:23 | XMS_ITS | Encounter Summary ---
Author Organization [employer] Address [address] [facility] 7t [place] [address] Care Team Providers Care Mandrel Cleaner Name Role Phone Wanda Bonilla Primary Care Provider [phone] Reason for Visit * Reason Comments Med Refill Encounter Details Date Type Department Care Team ([facility] st Contact Info) Description 11/05/2023 Refill [facility]INE [address] [place] [address] Wanda Bonilla ANP 230 [place] [address] Social History Tobacco Use Types Packs/Day Years [...] Description 09/25/2024 2:00 PM EST Office Visit [address] [address] Wanda Bonilla ANP [address] [place] [address] 10/21/2024 10:00 AM EDT Office Visit [address] [address] Shivani Small CNM [address] [place] [address] documented as of this encounter Visit Diagnoses Not on filedocumented in this encounter Additional Health Concerns Assessment Noted Time PHQ-9 Depression Total Score: 0 08/25/19 23 1:48 PM EST documented as of this encounter Care Teams Mandrel Cleaner Relationship Specialty Start Date End Date Wanda Bonilla ANP [address] [place] [phone] PCP - General Family Medicine 09/03/20 documented as of this encounter
--- OUTSIDE RECORDS SUMMARY | 2024-09-01 17:23 | XMS_ITS | Encounter Summary ---
Author Organization [employer] Address [address] [facility] 7t [place] [address] Care Team Providers Care Whipper Name Role Phone Wanda Bonilla Primary Care Provider [phone] Reason for Visit * Reason Onset Date Comments Results 09/12/2023 Encounter Details Date Type Department Care Team ([facility] st Contact Info) Description 09/12/2023 Telephone [facility] [address] [place] [address] Wanda Bonilla ANP [address] [place] [address] Results Social History Tobacco Use Types Packs/Day [...] (in chart) Date when done: 08/30 Facility: [facility] Type of results: US neck Date when done: sometime last week per pt Facility: [facility] Please contact pt at [phone] documented in this encounter Plan of Treatment Upcoming Encounters Date Type Department Care Team (Late st Contact Info) Description 09/25/2024 2:00 PM EST Office Visit [facility] [address] [place] [address] Wanda Bonilla ANP [address] [place] [address] 10/21/2024 10:00 AM EDT Office Visit [facility] [address] [place] [address] Shivani Small CNM 230 [place] [address] documented as of this encounter Visit Diagnoses Not on filedocumented in this encounter Additional Health Concerns Assessment Noted Time PHQ-9 Depression Total Score: 0 08/25/19 23 1:48 PM EST documented as of this encounter Care Teams Whipper Relationship Specialty Start Date End Date Wanda Bonilla ANP 230 [place] [address] PCP - General Family Medicine 09/03/20 documented as of this encounter
--- OUTSIDE RECORDS SUMMARY | 2024-09-01 17:23 | XMS_ITS | Encounter Summary ---
Author Organization [employer] [facility] Address [address] [place] [address] 7t [place] [address] Care Team Providers Care Mold Press Operator Name Role Phone Wanda Bonilla Primary Care Provider [phone] Reason for Visit * Reason Comments Med Refill Encounter Details Date Type Department Care Team (Late Contact Info) Description 01/11/2023 Refill [facility] MED[facility]INE [address] [place] [address] Wanda Bonilla ANP [address] [place] [phone] Social History Tobacco Use Types Packs/Day Years [...] Description 09/25/2024 2:00 PM EST Office Visit [facility] [address] [place] [address] Wanda Bonilla ANP [address] [place], [place] [phone] 10/21/2024 10:00 AM EDT Office Visit [facility] 230 [place], [place] [phone] Shivani Small CNM [address] [place], [place] [phone] documented as of this encounter Visit Diagnoses Not on filedocumented in this encounter Additional Health Concerns Assessment Noted Time PHQ-9 Depression Total Score: 0 08/25/19 23 1:48 PM EST documented as of this encounter Care Teams Mold Press Operator Relationship Specialty Start Date End Date Wanda Bonilla ANP [address] [place] [address] [phone] PCP - General Family Medicine 09/03/20 documented as of this encounter
--- OUTSIDE RECORDS SUMMARY | 2024-09-01 17:23 | XMS_ITS | Encounter Summary ---
Author Organization [employer] Address [address] [facility] 7t [place] [address] Care Team Providers Care Tufting Machine Fixer Name Role Phone Wanda Bonilla Primary Care Provider [phone] Reason for Visit * Reason Onset Date Comments Med Refill 10/01/2023 Encounter Details Date Type Department Care Team ([facility] st Contact Info) Description 10/01/2023 Telephone [facility] MEDICINE 230 [place] [address] Wanda Bonilla ANP [address] [place] [address] Med Refill Social History Tobacco Use Types [...] 250 MG tablet To be sent to: [facility] pharmacy documented in this encounter Plan of Treatment Upcoming Encounters Date Type Department Care Team (Late st Contact Info) Description 09/25/2024 2:00 PM EST Office Visit [facility] MEDICINE [address] [place] [address] Wanda Bonilla ANP [address] [place] [address] 10/21/2024 10:00 AM EDT Office Visit [facility] MED[facility] [address] [place] [address] Shivani Small CNM 230 [place] [address] documented as of this encounter Visit Diagnoses Not on filedocumented in this encounter Additional Health Concerns Assessment Noted Time PHQ-9 Depression Total Score: 0 08/25/19 23 1:48 PM EST documented as of this encounter Care Teams Tufting Machine Fixer Relationship Specialty Start Date End Date Wanda Bonilla ANP [address] [place] [address] PCP - General Family Medicine 09/03/20 documented as of this encounter
[2024-09-01 17:36] LABS: D Dimer High Sensitivity < 150 NG/ML
[2024-09-01] MEDS: Ketorolac Tromethamine 15 MG/ML VIAL IVPUSH (17:36)
--- NOTE | 2024-09-01 17:41 | PC.NURSE ---
pt ambulated with brisk steady gait to tx area @approx 1700. pt has a symmetrical face and is moving all ext = and brisk she reports her chest discomfort is nonreporducable but localized to her R shoulder. she has a strong and regular radial pulse, nonlabored resps and wpd skin.
[2024-09-01 17:59] VITALS: BP 168/83; PULSE 70; RESP 18; TEMP 37; O2SAT 98
[2024-09-01 18:19] LABS: Alkaline Phosphatase 159 U/L (39-117)
[2024-09-01 18:21] LABS: Appearance Urine Cloudy; Color Urine Yellow; Glucose Urine UA Negative (Negative); Leukocyte Esterase Urine Negative (Negative); Nitrite Urine Negative (Negative); Specific Gravity - Urine 1.015 (1.005-1.025); Urine Blood Negative (Negative); Urine Ketones Negative (Negative); Urine Protein Negative (Neg-Trace)
[2024-09-01 18:41] LABS: Troponin-I High Sensitivity 142.2 ng/L (<3.5-17.0)
[2024-09-01 18:55] VITALS: BP 168/65; PULSE 78; RESP 16; TEMP 36.9; O2SAT 98
== END 2024-09-01 18:56 | disposition home or self-care (01) ==
PROVIDERS: Physician Assistant; Emergency Provider Emergency Medicine; PCP Nurse Practitioner Primary Care
DX: J06.9 Acute upper respiratory infection, unspecified (principal); R51.9 Headache, unspecified; R06.02 Shortness of breath; M54.50 Low back pain, unspecified; R07.89 Other chest pain; E11.9 Type 2 diabetes mellitus without complications; I25.10 Atherosclerotic heart disease of native coronary artery without angina pectoris; M54.2 Cervicalgia; Z03.818 Encounter for observation for suspected exposure to other biological agents ruled out; Z79.899 Other long term (current) drug therapy; Z79.4 Long term (current) use of insulin
CPT/HCPCS: 0241U; 36415; 71046; 80048; 80076; 81003; 83690; 83735; 83880; 84484; 85025; 85379; 85610; 93005; 96374; 99284; J1885

== ENCOUNTER → 2024-09-01 13:48 | Outpatient (BNV) | payer MEDICAID, SELFPAY | PROVIDERS: PCP Nurse Practitioner Primary Care; Visit Provider Radiology Diagnostic Radiology | DX: R07.9 Chest pain, unspecified (principal) | CPT/HCPCS: 71046 ==

== ENCOUNTER 2024-09-08 13:28 | Outpatient (REF) | payer MEDICAID, SELFPAY ==
--- OUTSIDE RECORDS SUMMARY | 2024-09-08 14:35 | XMS_ITS | Encounter Summary ---
Author Organization [employer] Address [address] [facility] 7t [place] [address] Care Team Providers Care Shot Coat Tender Name Role Phone Wanda Bonilla Primary Care Provider [phone] Reason for Visit * Reason Comments Med Refill Encounter Details Date Type Department Care Team ([facility] st Contact Info) Description 08/13/2024 Refill [facility] MED[facility]INE [address] [place] [address] Wanda Bonilla ANP [address] [place] [address] Type 2 diabetes mellitus with hyperglycemia, with long-term current use of insulin ([facility]) Social History Tobacco Use Types Packs/Day [...] Care Team (Late st Contact Info) Description 09/23/2024 11:15 AM EST Office Visit [facility] MEDICINE [address] [place] [address] Wanda Bonilla ANP [address] [place] [address] 10/21/2024 10:00 AM EDT Office Visit [address] [address] Shivani Small CNM [address] [place] [phone] documented as of this encounter Visit Diagnoses Diagnosis Type 2 diabetes mellitus with hyperglycemia, with long-term current use of insulin ([facility]) documented in this encounter Additional Health Concerns Assessment Noted Time PHQ-9 Depression Total Score: 5 11/23/19 24 1:33 PM EDT documented as of this encounter Care Teams Shot Coat Tender Relationship Specialty Start Date End Date Wanda Bonilla ANP [address] [place] [address] PCP - General Family Medicine 09/03/20 documented as of this encounter
--- OUTSIDE RECORDS SUMMARY | 2024-09-08 14:35 | XMS_ITS | Encounter Summary ---
Author Organization [employer] Address [address] [facility] 7t [place] [address] Care Team Providers Care Psych Nurse Name Role Phone Wanda Bonilla Primary Care Provider [phone] Encounter Details Date Type Department Care Team (Late st Contact Info) Description 08/28/2023 Orders Only [facility] MEDICINE [address] [place] [address] Wanda Bonilla ANP [address] [place] [address] Social History Tobacco Use Types Packs/Day Years [...] the past 12 months, has t he [employer], gas, oil or water [employer] threatened to shut off services in your [...] Description 09/23/2024 11:15 AM EST Office Visit [address] [address] Wanda Bonilla ANP [address] [place] [address] 10/21/2024 10:00 AM EDT Office Visit [address] [address] Shivani Small CNM [address] [place] [address] documented as of this encounter Visit Diagnoses Not on filedocumented in this encounter Additional Health Concerns Assessment Noted Time PHQ-9 Depression Total Score: 0 08/25/19 23 1:48 PM EST documented as of this encounter Care Teams Psych Nurse Relationship Specialty Start Date End Date Wanda Bonilla ANP [address] [place] [address] PCP - General Family Medicine 09/03/20 documented as of this encounter
--- OUTSIDE RECORDS SUMMARY | 2024-09-08 14:35 | XMS_ITS | Encounter Summary ---
Author Organization [employer] Address 75 [facility] 7t [place] [address] Care Team Providers Care Hydrologic Modeler Name Role Phone Wanda Bonilla Primary Care Provider [phone] Reason for Visit * Reason Comments Med Refill Encounter Details Date Type Department Care Team ([facility] st Contact Info) Description 08/26/2024 Refill [facility] [address] [place] [address] Wanda Bonilla ANP 230 [place] [address] Primary hypertension Social History Tobacco Use Types [...] Description 09/23/2024 11:15 AM EST Office Visit [facility] [address] [place] [address] Wanda Bonilla ANP [address] [place] [address] 10/21/2024 10:00 AM EDT Office Visit [facility] [address] [place] [address] Shivani Small CNM [address] [place] [address] documented as of this encounter Visit Diagnoses Diagnosis Primary hypertension Unspecified essential hypertension documented in this encounter Additional Health Concerns Assessment Noted Time PHQ-9 Depression Total Score: 5 11/23/19 24 1:33 PM EDT documented as of this encounter Care Teams Hydrologic Modeler Relationship Specialty Start Date End Date Wanda Bonilla ANP [address] [place] [address] PCP - General Family Medicine 09/03/20 documented as of this encounter
--- OUTSIDE RECORDS SUMMARY | 2024-09-08 14:35 | XMS_ITS | Encounter Summary ---
Author Organization [employer] Address [address] [facility] [address] 7t [place] [address] Care Team Providers Care Artist'S Representative Name Role Phone Wanda Bonilla Primary Care Provider [phone] Reason for Visit * Reason Comments Med Refill Encounter Details Date Type Department Care Team ([facility] st Contact Info) Description 08/16/2024 Refill [facility] 230 [place], [place] [phone] Wanda Bonilla ANP 230 [place], [place] [phone] Restless legs Social History Tobacco Use Types [...] Description 09/23/2024 11:15 AM EST Office Visit [facility] [address] [place] [address] Wanda Bonilla ANP 230 [place] [address] 10/21/2024 10:00 AM EDT Office Visit [facility] [address] [place] [address] Shivani Small CNM [address] [place] [address] documented as of this encounter Visit Diagnoses Diagnosis Restless legs Restless legs syndrome (RLS) documented in this encounter Additional Health Concerns Assessment Noted Time PHQ-9 Depression Total Score: 5 11/23/19 24 1:33 PM EDT documented as of this encounter Care Teams Artist'S Representative Relationship Specialty Start Date End Date Wanda Bonilla ANP [address] [place] [address] PCP - General Family Medicine 09/03/20 documented as of this encounter
--- OUTSIDE RECORDS SUMMARY | 2024-09-08 14:35 | XMS_ITS | Encounter Summary ---
Author Organization [employer] Address 75 [facility] 7t [place] [address] Care Team Providers Care Branch Service Leader Name Role Phone Wanda Bonilla Primary Care Provider [phone] Reason for Visit * Reason Comments Med Refill Encounter Details Date Type Department Care Team ([facility] st Contact Info) Description 08/03/2024 Refill [facility] 230 [place] [address] Wanda Bonilla ANP 230 [place] [address] Essential hypertension Social History Tobacco Use Types [...] Description 09/23/2024 11:15 AM EST Office Visit [facility] [address] [place] [address] Wanda Bonilla ANP [address] [place] [address] 10/21/2024 10:00 AM EDT Office Visit [facility] [address] [place] [address] Shivani Small CNM [address] [place] [address] documented as of this encounter Visit Diagnoses Diagnosis Essential hypertension Unspecified essential hypertension documented in this encounter Additional Health Concerns Assessment Noted Time PHQ-9 Depression Total Score: 5 11/23/19 24 1:33 PM EDT documented as of this encounter Care Teams Branch Service Leader Relationship Specialty Start Date End Date Wanda Bonilla ANP [address] [place] [address] PCP - General Family Medicine 09/03/20 documented as of this encounter
--- OUTSIDE RECORDS SUMMARY | 2024-09-08 14:35 | XMS_ITS | Encounter Summary ---
Author Organization [facility] Address [address] [place] [address] 7t [place] [address] Care Team Providers Care Children'S Program Coordinator Name Role Phone Wanda Bonilla Primary Care Provider [phone] Encounter Details Date Type Department Care Team (Late st Contact Info) Description 08/09/2022 Orders Only [facility] [address] [place] [address] Shanna Lopez LPN Social History Tobacco Use [...] Description 09/23/2024 11:15 AM EST Office Visit [facility] [address] [place] [address] Wanda Bonilla ANP [address] [place] [address] 10/21/2024 10:00 AM EDT Office Visit [facility] [address] [place] [address] Shivani Small CNM [address] [place] [address] documented as of this encounter Visit Diagnoses Not on filedocumented in this encounter Care Teams Children'S Program Coordinator Relationship Specialty Start Date End Date Wanda Bonilla ANP [address] [place] [address] PCP - General Family Medicine 09/03/20 documented as of this encounter
--- OUTSIDE RECORDS SUMMARY | 2024-09-08 14:35 | XMS_ITS | Encounter Summary ---
Author Organization [employer] Address [address] [facility] [address] 7t [place] [address] Care Team Providers Care Railroad Repairer Name Role Phone Wanda Bonilla Primary Care Provider [phone] Encounter Details Date Type Department Care Team (Late st Contact Info) Description 08/14/2024 Telephone [facility] 230 [place], [place] [phone] Adolfo Fernando, VishnuD Social History Tobacco Use [...] t he electric, gas, oil or water [employer] threatened to shut off services in your [...] Description 09/23/2024 11:15 AM EST Office Visit [facility] [address] [place] [address] Wanda Bonilla ANP 230 [place] [address] 10/21/2024 10:00 AM EDT Office Visit [address] [address] Shivani Small CNM 230 [place] [address] documented as of this encounter Visit Diagnoses Not on filedocumented in this encounter Additional Health Concerns Assessment Noted Time PHQ-9 Depression Total Score: 5 11/23/19 24 1:33 PM EDT documented as of this encounter Care Teams Railroad Repairer Relationship Specialty Start Date End Date Wanda Bonilla ANP [address] [place] [address] PCP - General Family Medicine 09/03/20 documented as of this encounter
--- OUTSIDE RECORDS SUMMARY | 2024-09-08 14:35 | XMS_ITS | Encounter Summary ---
Author Organization [employer] Address [address] [facility] [address] [address] 7t [place] [address] Care Team Providers Care Tie Presser Name Role Phone Sandra Vieira Primary Care Provider [phone] Encounter Details Date Type Department Care Team (Late st Contact Info) Description 08/29/2024 Orders Only [facility] External Provider, [facility] Social History Tobacco Use Types [...] Description 09/23/2024 11:15 AM EST Office Visit [facility] [address] [employer], [place] [phone] Sandra Vieira, ANP 230 [place] [address] 10/21/2024 10:00 AM EDT Office Visit [facility] [address] [place] [address] Shivani Small, CINTHIA [address] [place] [address] documented as of this encounter Procedures Procedure Name Priority Date/Time Associated Diagnosis Comments US ABDOMEN LIMITED Routine 09/03/2024 9: 53 AM EST documented in this encounter Results * US Abdomen Limited (09/03/2024 9:53 AM EST) Anatomical Region Laterality Modality Abdomen Ultrasound 09/03/2024 9:53 AM EST Narrative 09/03/2024 9:55 AM EST ? [facility] ?[address] ?[place] [address] ? Ultrasound Report ? Signed ? Patient: Colon,Milsa ?MR#: [id number] ? : 1965 ?Acct:[id number] ? Age/Sex: 59 / F ?ADM Date: 01/31/25 ? Loc: HO.US ? Attending Dr: Ashlie Maldonado MD ? Ordering Physician: Ashlie Maldonado MD ?? Date of Service: 08/29/24 ?? Procedure(s): US abdomen limited ?? Accession Number(s): [id number] ? cc: Ashlie Maldonado MD; SANDRA VIEIRA NP ? CLINICAL HISTORY: K74.60 - Unspecified cirrhosis of liver ? US abdomen limited ? Comparison: None ? Findings: ?? The visualized pancreas is normal. ?? The aorta and inferior vena cava are normal caliber. ? Coarse hepatic echotexture with lobulated contour ccompatible with known ?? cirrhosis. Mild hepatomegaly measuring 16.7 cm in length. No hepatic mass ?? lesion seen. ?? There is no intrahepatic bile duct dilatation. ?? The common duct is 7 mm in diameter. ?? Cholecystectomy. ?? The main portal vein is antegrade. ? The right kidney is 9.3 cm in length. Unremarkable right kidney. ?? No ascites. ? IMPRESSION: ?? Hepatic cirrhosis. No hepatic mass lesion. ? This document has been electronically signed by: Della Hand MD on ?? 09/03/2024 09:53:53 ? Dictated By: ?Della Hand MD ? Signed By: ?<Electronically signed by Della Hand MD in OV> ? 09/03/24 0955 ? DD/ 2 ? TD/TT: 09/03/24952 ? Impregnator And Drier: ? Procedure Note Concepción Ndiaye - 09/03/2024 [place] [address] Ultrasound Report Signed Patient: Barrera Max#: [id number] : 1965Acct:[id number] Age/Sex: 59 / FADM Date: 08/29/24 Loc: HO.US Attending Dr: Ashlie Maldonado MD Ordering Physician: Ashlie Maldonado MD Date of Service: 08/29/24 Procedure(s): US abdomen limited Accession Number(s): [id number] cc: Ashlie Maldonado MD; SANDRA VIEIRA NP CLINICAL HISTORY: K74.60 - Unspecified cirrhosis of liver US abdomen limited Comparison: None Findings: The visualized pancreas is normal. The aorta and inferior vena cava are normal caliber. Coarse hepatic echotexture with lobulated contour ccompatible with known cirrhosis. Mild hepatomegaly measuring 16.7 cm in length. No hepatic mass lesion seen. There is no intrahepatic bile duct dilatation. The common duct is 7 mm in diameter. Cholecystectomy. The main portal vein is antegrade. The right kidney is 9.3 cm in length. Unremarkable right kidney. No ascites. IMPRESSION: Hepatic cirrhosis. No hepatic mass lesion. This document has been electronically signed by: Della Hand MD on 09/03/2024 09:53:53 Dictated By: Della Hand MD Signed By: <Electronically signed by Della Hand MD in OV> 09/03/2455 DD/ 2 TD/TT: 09/03/24952 Impregnator And Drier: [facility] External Provider IMG US PROCEDURES Edited Result - Final documented in this encounter Visit Diagnoses Not on filedocumented in this encounter Additional Health Concerns Assessment Noted Time PHQ-9 Depression Total Score: 5 11/23/19 24 1:33 PM EDT documented as of this encounter Care Teams Tie Presser Relationship Specialty Start Date End Date Sandra Vieira ANP [address] [place] [address] PCP - General Family Medicine 09/03/20 documented as of this encounter
--- OUTSIDE RECORDS SUMMARY | 2024-09-08 14:35 | XMS_ITS | Encounter Summary ---
Author Organization [employer] Address 75 [facility] 7t [place] [address] Care Team Providers Care Director Of Quality Improvement Name Role Phone Wanda Bonilla Primary Care Provider [phone] Reason for Visit * Reason Onset Date Comments Appointment Request 06/12/2023 Encounter Details Date Type Department Care Team ([facility] Contact Info) Description 06/12/2023 Telephone [facility] 230 [place] [address] Wanda Bonilla ANP 230 [place] [address] Appointment Request Social History Tobacco Use Types [...] Description 09/23/2024 11:15 AM EST Office Visit [facility] [address] [place] [address] Wanda Bonilla ANP 230 [place] [address] 10/21/2024 10:00 AM EDT Office Visit [address] [address] Shivani Small CNM 230 [place] [address] documented as of this encounter Visit Diagnoses Not on filedocumented in this encounter Additional Health Concerns Assessment Noted Time PHQ-9 Depression Total Score: 0 08/25/19 23 1:48 PM EST documented as of this encounter Care Teams Director Of Quality Improvement Relationship Specialty Start Date End Date Wanda Bonilla ANP [address] [place] [address] PCP - General Family Medicine 09/03/20 documented as of this encounter
--- OUTSIDE RECORDS SUMMARY | 2024-09-08 14:35 | XMS_ITS | Encounter Summary ---
Author Organization [employer] Address 75 [facility] 7t [place] [address] Care Team Providers Care Oiler Helper Name Role Phone Wanda Bonilla Primary Care Provider [phone] Reason for Visit * Reason Onset Date Comments Med Refill 08/28/2023 Encounter Details Date Type Department Care Team ([facility] st Contact Info) Description 08/28/2023 Telephone [facility] 230 [place] [address] Wanda Bonilla ANP 230 [place] [address] Med Refill Social History Tobacco Use Types [...] MG/1.5ML solution pen-injector To be sent to: [facility] documented in this encounter Plan of Treatment Upcoming Encounters Date Type Department Care Team (Late st Contact Info) Description 09/23/2024 11:15 AM EST Office Visit [facility] [address] [place] [address] Wanda Bonilla ANP 230 [place] [address] 10/21/2024 10:00 AM EDT Office Visit [facility] [address] [place] [address] Shivani Small CNM 230 [place] [address] documented as of this encounter Visit Diagnoses Not on filedocumented in this encounter Additional Health Concerns Assessment Noted Time PHQ-9 Depression Total Score: 0 08/25/19 23 1:48 PM EST documented as of this encounter Care Teams Oiler Helper Relationship Specialty Start Date End Date Wanda Bonilla ANP 230 [place] [address] PCP - General Family Medicine 09/03/20 documented as of this encounter
--- OUTSIDE RECORDS SUMMARY | 2024-09-08 14:35 | XMS_ITS | Encounter Summary ---
Author Organization [employer] Address 75 [facility] 7t [place] [address] Care Team Providers Care Shower Maid Name Role Phone Wanda Bonilla TAHIR Primary Care Provider [phone] Reason for Visit * Reason Comments Med Refill Encounter Details Date Type Department Care Team ([facility] st Contact Info) Description 03/14/[address] [facility] 230 [place], [place] [phone] Shivani Small CNM 230 [place] [address] Social History Tobacco Use Types Packs/Day Years [...] Description 09/23/2024 11:15 AM EST Office [address] [facility] [address] [place] [address] Wanda Bonilla ANP [address] [place] [address] 10/21/2024 10:00 AM EDT Office Visit [facility] [address] [place] [address] Shivani Small CNM [address] [place] [address] documented as of this encounter Visit Diagnoses Not on filedocumented in this encounter Additional Health Concerns Assessment Noted Time PHQ-9 Depression Total Score: 5 11/23/19 24 1:33 PM EDT documented as of this encounter Care Teams Shower Maid Relationship Specialty Start Date End Date Wanda Bonilla ANP [address] [place] [address] PCP - General Family Medicine 09/03/20 documented as of this encounter
--- OUTSIDE RECORDS SUMMARY | 2024-09-08 14:35 | XMS_ITS | Encounter Summary ---
Author Organization [employer] Address 75 [facility] 7t [place] [address] Care Team Providers Care Reimbursement Director Name Role Phone Wanda Bonilla Primary Care Provider [phone] Reason for Visit * Reason Comments Care Coordination CM/CHW outreach Encounter Details Date Type Department Care Team (Latest Contact Info) Description 09/02/2024 Patient Outreach [facility]INE 230 [place] [address] Wanda Bonilla ANP [address] [place] [address] Care Coordination (CM/CHW outreach) Social History Tobacco Use Types Packs/Day Years [...] AM EDT documented as of this encounter Progress Notes * La Haddad - 09/02/2024 9:05 AM EST CHW La Haddad, placed outbound call to patient introducing herself from [facility] CM Department, in regard to offering services. Patient's name and was confirmed. Patient agrees to participate in program. Appt. for initial assessment scheduled for 09/18/24 @ 1PM tele appt with CM Rajni García RN. CHW reinforced direct contact information or CM [phone] for any additional questions or concerns and extended clinic hours on Mondays and Wednesdays, and Walk-In Urgent Care Located in [facility]. Patient provided with after-hours line for [facility], , which offer nighttime triage service and option to transfer to maori liaison adviser provider if needed. Patient verbalizes understanding, and able to repeat back to automobile and property underwriter. documented in this encounter Plan of Treatment Upcoming Encounters Date Type Department Care Team (Late st Contact Info) Description 09/23/2024 11:15 AM EST Office Visit [facility] MED[facility]INE [address] [place] [address] Wanda Bonilla ANP 230 [place] [address] 10/21/2024 10:00 AM EDT Office Visit [facility]INE 230 [place] [address] Shivani Small CNM 230 [place] [address] documented as of this encounter Visit Diagnoses Not on filedocumented in this encounter Additional Health Concerns Assessment Noted Time PHQ-9 Depression Total Score: 5 11/23/19 24 1:33 PM EDT documented as of this encounter Care Teams Reimbursement Director Relationship Specialty Start Date End Date Wanda Bonilla ANP [address] [place] [address] PCP - General Family Medicine 09/03/20 documented as of this encounter
--- OUTSIDE RECORDS SUMMARY | 2024-09-08 14:35 | XMS_ITS | Encounter Summary ---
Author Organization [employer] Address 75 [facility] 7t [place] [address] Care Team Providers Care Diamond Wheel Edger Name Role Phone Wanda Bonilla Primary Care Provider [phone] Reason for Visit * Reason Onset Date Comments ER Follow-up 09/03/2024 Encounter Details Date Type Department Care Team ([facility] Contact Info) Description 09/03/2024 Telephone [facility] MEDICINE 230 [place] [address] Wanda Bonilla ANP 230 [place] [address] ER Follow-up Social History Tobacco Use Types Packs/Day [...] encounter Miscellaneous Notes * Telephone Encounter - Yola Smallwood RN - 09/03/2024 9:55 AM EST Per chart review pt seen at [facility] 09/01/24 for GOMEZ and Right sided CP. Per notes CXR XR/XR chest 2V IMPRESSION: 1. No active pulmonary disease. 2. Abnormal appearance to both shoulder joints which is new from prior, possibly secondary to technical differences/positioning, although developing AVN is a concern. Consider correlating with dedicated shoulder plain films. Pt discharged home with dx of acute GOMEZ. To use Tylenol and Motrin PRN for pain. PCP follow up PRN if sx do not improve. Call returned to [facility] via [employer] Capacity Planning Manager as this journalists and other writers is working remote to triage below. No answer, LVM to return call to [facility] prn. No spanish medical interpreter needed as this journalists and other writers speaks Georgian. * Telephone Encounter - Antonio Haddad - 09/03/2024 9:47 AM EST Patient calling to report ED visit on : Date: 09/02/24 Hospital: [facility] Seen for: Chest Pain Symptomatic Yes *if yes message should go to Triage Symptom: Chest Pain - Adult Outcome: Transfer to a nurse or provider NOW! Reason: Severe pain now Please contact pt at [phone]. (Georgian Speaker) documented in this encounter Plan of Treatment Upcoming Encounters Date Type Department Care Team (Late st Contact Info) Description 09/23/2024 11:15 AM EST Office Visit [address] [address] Wanda Bonilla ANP [address] [place] [address] 10/21/2024 10:00 AM EDT Office Visit [address] [address] Shivani Small CNM [address] [place] [address] documented as of this encounter Visit Diagnoses Not on filedocumented in this encounter Additional Health Concerns Assessment Noted Time PHQ-9 Depression Total Score: 5 11/23/19 24 1:33 PM EDT documented as of this encounter Care Teams Diamond Wheel Edger Relationship Specialty Start Date End Date Wanda Bonilla ANP [address] [place] [address] PCP - General Family Medicine 09/03/20 documented as of this encounter
--- OUTSIDE RECORDS SUMMARY | 2024-09-08 14:35 | XMS_ITS | Encounter Summary ---
Author Organization [employer] Address [address] [facility] 7t [place] [address] Care Team Providers Care Digital Product Specialist Name Role Phone Wanda Bonilla Primary Care Provider [phone] Reason for Visit * Reason Comments Shortness of Breath Headache Encounter Details Date Type Department Care Team ([facility] st Contact Info) Description 09/08/2024 9:00 AM EST Office Visit [facility] [address] [place] [address] Brenda Lopez MD [address] [place], [place] [phone] KAY (dyspnea on exertion) (Primary Dx); Primary hypertension; Other microscopic hematuria Social History Tobacco Use Types Packs/Day [...] Sign Reading Time Taken Comments Blood Pressure 120/90 09/08/2024 11:48 AM EST Pulse 66 09/08/2024 8:43 AM EST Temperature 36.8 ??C (98.3 ??F) 09/08/2024 8:43 AM ES T Respiratory Rate 21 09/08/2024 8:43 AM EST Oxygen Saturation 96% 09/08/2024 8:43 AM EST Inhaled Oxygen Concentration - - Weight 78.7 kg (173 lb 9.6 oz) 09/08/2024 8:43 A M EST Height 160 cm (5' 3 ) 09/08/2024 8:43 AM EST Body Mass Index 30.75 09/08/2024 8:43 AM EST documented in this encounter Progress Notes * Brenda Lopez MD - 09/08/2024 9:00 AM EST SUBJECTIVE: Tank Max is a 59 y.o. year old female who presents for Walk In Center/KAY/GOMEZ . Denies recent illness, injury, or hospitalization. Acute Concerns: Patient here for follow-up on ED visit on 09 01 related to shortness of breath, chest pain. She was found with high troponins which apparently had been chronically elevated on the 200 (unclear if she had an and NSTEMI last year). She tells me that she has continued with intermittent right sided and central chest pain not related to exertion. She also complains of lower abdominal pain and some back pain on and off for couple of months, she denies dysuria, fever, chills but does say that the back pain is radiated to the right leg. Labs on 09/01/2024 showed troponins 142 and 143 with a BNP of 106.previous troponins last year were in the 200s, she did not have any other EKG changes. She had normal GFR and in general normal labs except for mildly elevated (stable from previous) LFTs She has not been taking amlodipine for the past few weeks due to leg swelling, cardiology was supposed to be sending another medication to pharmacy but she has not gotten it yet. Otherwise she is taking lisinopril and carvedilol Social History Social History Narrative Not on file Patient Active Problem List Diagnosis Anxiety Asthma Chronic hepatitis C (CMS/HCC) Cirrhosis of liver (CMS/HCC) Depressed bipolar I disorder (CMS/HCC) Diabetic polyneuropathy (CMS/HCC) Dystrophia unguium Hypertension Hyperlipidemia Onychomycosis Panic disorder without agoraphobia Prolactinoma (CMS/HCC) Type 2 diabetes mellitus, uncontrolled Perforating dermatosis History of prolactinoma Bloody discharge from right nipple Adverse effect of COVID-19 vaccine Calcaneal spur, left Renal stones Chronic headaches PAD (peripheral artery disease) (CMS/HCC) Sleep disorder, unspecified Somnolence, daytime Class 1 obesity Diabetic retinopathy (CMS/HCC) Carpal tunnel syndrome Benign neoplasm of pituitary gland (CMS/HCC) Type 2 diabetes mellitus with hyperlipidemia (CMS/HCC) (CMS/HCC) Chest pain Other microscopic hematuria Dysuria KAY (dyspnea on exertion) Family History Problem Relation Name Age of Onset Colon cancer Father's Brother Review of Systems Constitutional: Negative for chills, fatigue and fever. HENT: Negative for congestion, ear pain, nosebleeds, rhinorrhea, sinus pressure, sore throat and trouble swallowing. Eyes: Negative for pain and discharge. Respiratory: Positive for shortness of breath. Negative for cough and chest tightness. Cardiovascular: Negative for chest pain, palpitations and leg swelling. Gastrointestinal: Negative for abdominal pain, blood in stool, constipation, diarrhea and nausea. Endocrine: Negative for polydipsia and polyuria. Genitourinary: Negative for dysuria, frequency, genital sores, pelvic pain and vaginal discharge. Musculoskeletal: Positive for arthralgias and back pain. Negative for neck pain. Skin: Negative for rash. Allergic/Immunologic: Negative for environmental allergies. Neurological: Positive for headaches. Negative for dizziness, seizures, weakness and light-headedness. Hematological: Negative for adenopathy. Psychiatric/Behavioral: Negative for agitation, behavioral problems, self-injury and suicidal ideas. OBJECTIVE: Vitals: 09/08/24 0843 09/08/24 1148 BP: (!) 152/90 (!) 120/90 BP Location: Left arm Right arm Patient Position: Sitting Sitting BP Cuff Size: Adult Adult Pulse: 66 Resp: 21 Temp: 98.3 ??F (36.8 ??C) TempSrc: Oral SpO2: 96% Weight: 173 lb 9.6 oz (78.7 kg) Height: 5' 3 (1.6 m) Physical Exam HENT: Right Ear: Tympanic membrane and ear canal normal. Left Ear: Tympanic membrane and ear canal normal. Mouth/Throat: Mouth: Mucous membranes are moist. Pharynx: No oropharyngeal exudate or posterior oropharyngeal erythema. Eyes: Pupils: Pupils are equal, round, and reactive to light. Cardiovascular: Rate and Rhythm: Regular rhythm. Pulses: Normal pulses. Heart sounds: Normal heart sounds. No murmur heard. Pulmonary: Breath sounds: Normal breath sounds. Abdominal: General: Bowel sounds are normal. Palpations: Abdomen is soft. Tenderness: There is abdominal tenderness in the suprapubic area. There is left CVA tenderness. Musculoskeletal: General: Normal range of motion. Cervical back: Neck supple. Skin: General: Skin is warm. Neurological: General: No focal deficit present. Mental Status: She is alert and oriented to person, place, and time. Psychiatric: Mood and Affect: Mood normal. Behavior: Behavior normal. Problem List Items Addressed This Visit Hypertension - Primary Slightly uncontrolled, likely to pain Advised to take all meds including amlodipine until she sees cardiology. Take tylenol + ibuprofen bid then tylenol q8h prn pain. Other microscopic hematuria Unclear if related to kidney stone or UTI? Will rx w bactrim bid and she will continue Flomax for now. Encouraged to increase PO water, cranberry juice I told her that she should filter urine in case of kidney stone, fu w urology Relevant Orders POCT urinalysis dipstick manually resulted (Completed) Culture, Urine, Routine KAY (dyspnea on exertion) Unclear if related to pain, probably from kidney stones or uncontrolled hypertension. Patient had cardiac workup in the emergency room recently and ACS was ruled out. Advised regarding tight control of hypertension and pain (unfortunately she is allergic to opiates)with Tylenol and ibuprofen I called [facility] cardiology clinic and they will call patient back for an earlier appointment regarding abnormally elevated troponins. Follow Up: Current Outpatient Medications on File Prior to Visit Medication Sig Dispense Refill albuterol (2.5 MG/3ML) 0.083% nebulizer solution INHALE 1 AMPULE USING A NEBULIZER THREE TIMES DAILY NEEDED FOR WHEEZING OR SHORTNESS OF BREATH 90 mL 0 albuterol (Ventolin HFA) 108 (90 Base) MCG/ACT inhaler INHALE 2 PUFFS EVERY 4 TO 6 HOURS NEEDED 18 g 1 amLODIPine (Norvasc) 10 MG tablet TAKE 1 TABLET BY MOUTH EVERYDAY AT NOON 90 tablet 3 Aspirin Low Dose 81 MG EC tablet TAKE 1 TABLET BY MOUTH EVERY EVENING 90 tablet 3 budesonide (Pulmicort Flexhaler) 180 MCG/ACT inhaler Inhale 2 puffs 2 times daily. Rinse mouth after use. 1 each 11 carvedilol (Coreg) 6.25 MG tablet TAKE 1 TABLET BY MOUTH TWICE DAILY AT NOON AND BEDTIME 180 tablet0 D3-1000 25 MCG (1000 UT) capsule TAKE 1 CAPSULE BY MOUTH EVERY MORNING 90 capsule 2 Diclofenac Sodium 1 % gel APPLY 2 GRAMS TOPICALLY EVERY 6 HOURS 100 g 0 Emollient (Eucerin Original Healing) lotion use twice daily estradiol (Estrace) 0.1 MG/GM vaginal cream Insert 1 g into the vagina Once per day. 1g vaginally x14d, then twice weekly thereafter 45 g 2 famotidine (Pepcid) 20 MG tablet Take 1 tablet twice daily as needed for acid reflux 60 tablet 1 FREESTYLE LITE test strip TEST BLOOD SUGAR THREE TIMES DAILY 100 strip 11 gabapentin (Neurontin) 300 MG capsule TAKE 1 CAPSULE BY MOUTH TWICE DAILY IN THE MORNING AND IN THEEVENING and TAKE 2 CAPSULES BY MOUTH EVERY DAY AT BEDTIME 120 capsule 3 hydrocortisone 1 % cream Apply topically 2 times daily. 45 g 0 hydrOXYzine HCl (Atarax) 25 MG tablet TAKE 1 TABLET BY MOUTH THREE TIMES DAILY IN THE MORNING, AT NOON, AND AT BEDTIME FOR ITCHING 90 tablet 0 insulin lispro (HumaLOG) 100 UNIT/ML injection INJECT 20 UNITS SUBCUTANEOUSLY THREE TIMES DAILY WITH MEALS 15 mL 11 insulin pen needle (Easy Touch Pen [place]) 31G X 8 mm [facility] USE DIRECTED FOUR TIMES DAILY 100 each 11 lansoprazole (Prevacid) [address] capsule TAKE 1 CAPSULE BY MOUTH EVERY DAY BEFORE BREAKFAST. DO NOTBREAK, CRUSH, DISSOLVE OR CHEW 90 capsule 1 Lantus SoloStar 100 UNIT/ML pen INJECT 54 UNITS SUBCUTANEOUSLY EVERY DAY 15 mL 3 lidocaine (Lidoderm) 5 % patch APPLY 1 PATCH TOPICALLY TO SKIN, LEAVE ON FOR 12 HOURS AND OFF FOR 12 HOURS DIRECTED 30 patch 2 lisinopril 40 MG tablet TAKE 1 TABLET BY MOUTH EVERY EVENING 90 tablet 3 meclizine (Antivert) 25 MG tablet TAKE 1 TABLET BY MOUTH THREE TIMES DAILY IN THE MORNING, EVENING,AND BEDTIME NEEDED FOR DIZZINESS 30 tablet 1 Ozempic, 0.25 or 0.5 MG/DOSE, 2 MG/3ML solution pen-injector INJECT 0.5 MG SUBCUTANEOUSLY EVERY 7 DAYS IN THE ABDOMEN, THIGHS, OR UPPER ARM, ROTATE INJECTION SITES. 3 mL 1 pioglitazone (Actos) 15 MG tablet TAKE 1 TABLET BY MOUTH EVERY MORNING 90 tablet 3 prazosin (Minipress) 2 MG capsule Take 2 mg by mouth at bedtime. pyridoxine (Vitamin B-6) 100 MG tablet Take 100 mg by mouth in the morning. QUEtiapine (SEROquel) 100 MG tablet Take 150 mg by mouth at bedtime. QUEtiapine (SEROquel) 25 MG tablet Take 25 mg by mouth if needed in the morning and at bedtime. rOPINIRole (Requip) 0.5 MG tablet TAKE 1 TABLET BY MOUTH AT BEDTIME 1-3 HOURS BEFORE BEDTIME 30 tablet 2 rosuvastatin (Crestor) 5 MG tablet TAKE 1 TABLET BY MOUTH EVERY EVENING 90 tablet 3 Stool Softener/Laxative 50-8.6 MG tablet TAKE 2 TABLETS BY MOUTH EVERY DAY AT BEDTIME tamsulosin (Flomax) 0.4 MG 24 hr capsule TAKE 1 CAPSULE BY MOUTH EVERY DAY AT 6 IN THE EVENING 30 capsule 0 tamsulosin (Flomax) 0.4 MG 24 hr capsule Take 1 capsule (0.4 mg) by mouth Once per day. 30 capsule 0 traZODone (Desyrel) 150 MG tablet take 1 tablet by oral route at bedtime as needed triamcinolone (Kenalog) 0.1 % cream Apply topically if needed in the morning and at bedtime (pain and swelling). 45 g 2 TRUEplus Lancets 33G misc TEST BLOOD SUGAR THREE TIMES DAILY 100 each 11 [DISCONTINUED] Blood Pressure Monitoring (Omron 3 Series BP Monitor) device USE TO CHECK BLOOD PRESSURE DIRECTED Current Facility-Administered Medications on File Prior to Visit Medication Dose Route Frequency Provider Last Rate Last Admin nitroglycerin (Nitrostat) SL tablet 0.4 mg 0.4 mg Sublingual q5 min PRN Brittany Frazier MD 0.4 mg at 10/22/23 1008 documented in this encounter Miscellaneous Notes * Assessment & Plan Note - Brenda Lopez MD - 09/08/2024 11:55 AM EST Associated Problem(s): KAY (dyspnea on exertion) Unclear if related to pain, probably from kidney stones or uncontrolled hypertension. Patient had cardiac workup in the emergency room recently and ACS was ruled out. Advised regarding tight control of hypertension and pain (unfortunately she is allergic to opiates)with Tylenol and ibuprofen I called [facility] cardiology clinic and they will call patient back for an earlier appointment regarding abnormally elevated troponins. * Assessment & Plan Note - Brenda Lopez MD - 09/08/2024 11:50 AM EST Associated Problem(s): Hypertension Slightly uncontrolled, likely to pain Advised to take all meds including amlodipine until she sees cardiology. Take tylenol + ibuprofen bid then tylenol q8h prn pain. * Assessment & Plan Note - Brenda Lopez MD - 09/08/2024 11:47 AM EST Associated Problem(s): Other microscopic hematuria Unclear if related to kidney stone or UTI? Will rx w bactrim bid and she will continue Flomax for now. Encouraged to increase PO water, cranberry juice I told her that she should filter urine in case of kidney stone, fu w urology documented in this encounter Plan of Treatment Upcoming Encounters Date Type Department Care Team (Late st Contact Info) Description 09/23/2024 11:15 AM EST Office Visit [facility] [address] [place], [place] [phone] Wanda Bonilla, ANP [address] [place] [address] 10/21/2024 10:00 AM EDT Office Visit [facility] [address] [place] [address] Shivani Small CNM [address] [place] [address] Scheduled Orders Name Type Priority Associated Diagnoses Orde r Schedule Culture, Urine, Routine Microbiology Routine Other microscopic hematuria Ordered: 09/08/2024 documented as of this encounter Procedures Procedure Name Priority Date/Time Associated Diagnosis Comments POCT URINALYSIS DIPSTICK Routine 09/08/2024 9:21 AM EST Other microscopic hematuria documented in this encounter Results * POCT urinalysis dipstick manually resulted (09/08/2024 9:21 AM EST) Color, UA Yellow Clarity, UA Clear Glucose, UA Negative Bilirubin, UA Negative Ketones, UA Negative Spec Grav, UA 1.025 Blood, UA Negative Negative, None Detected pH, UA 5.5 Protein, UA Trace Urobilinogen, UA 0.2 Leukocytes, UA Trace Negative, Rare, Trace Nitrite, UA Negative Negative, None Detected Urine 09/08/2024 9:21 AM EST us Brenda Lopez MD POINT OF CARE TEST ENTER /EDIT ORDERABLES Final Result documented in this encounter Visit Diagnoses Diagnosis KAY (dyspnea on exertion)- Primary Other dyspnea and respiratory abnormality Primary hypertension Unspecified essential hypertension Other microscopic hematuria documented in this encounter Additional Health Concerns Assessment Noted Time PHQ-9 Depression Total Score: 5 11/23/19 24 1:33 PM EDT documented as of this encounter Care Teams Digital Product Specialist Relationship Specialty Start Date End Date Wanda Bonilla ANP [address] [place] [address] PCP - General Family Medicine 09/03/20 documented as of this encounter
--- OUTSIDE RECORDS SUMMARY | 2024-09-08 14:35 | XMS_ITS | Encounter Summary ---
Author Organization [employer] Address [address] [facility] 7t [place] [address] Care Team Providers Care Professor Computer Science Name Role Phone Wanda Bonilla Primary Care Provider [phone] Reason for Visit * Reason Onset Date Comments dx order 03/19/2024 Encounter Details Date Type Department Care Team ([facility] st Contact Info) Description 03/19/2024 Telephone [facility] [address] [place] [address] Wanda Bonilla ANP [address] [place] [address] dx order Social History Tobacco Use Types [...] a call to confirm ascheduled appt at [facility] for 03/28/24 however pt attempted to call to confirm appt again and was advised pt does not have an appt and does not have any orders for MRI. Please contact at [phone] Italian documented in this encounter Plan of Treatment Upcoming Encounters Date Type Department Care Team (Late st Contact Info) Description 09/23/2024 11:15 AM EST Office Visit [facility] [address] [place] [phone] Wanda Bonilla ANP [address] [place] [address] 10/21/2024 10:00 AM EDT Office Visit [facility] [address] [place] [address] Shivani Small CNM [address] [place] [address] documented as of this encounter Visit Diagnoses Not on filedocumented in this encounter Additional Health Concerns Assessment Noted Time PHQ-9 Depression Total Score: 5 11/23/19 24 1:33 PM EDT documented as of this encounter Care Teams Professor Computer Science Relationship Specialty Start Date End Date Wanda Bonilla ANP [address] [place] [address] PCP - General Family Medicine 09/03/20 documented as of this encounter
--- OUTSIDE RECORDS SUMMARY | 2024-09-08 14:35 | XMS_ITS | Encounter Summary ---
Author Organization [employer] Address [address] [facility] [address] [place] [address] Care Team Providers Care Rail Doweling Machine Operator Name Role Phone Wanda Bonilla Primary Care Provider [phone] Reason for Visit * Reason Onset Date Comments Care Management 09/02/2024 [facility]- chart revi ew Encounter Details Date Type Department Care Team ([facility] st Contact Info) Description 09/02/[address] [facility] [address] [place] [address] Rajni García RN [address] [place], [place] [phone] Care Management ([facility]- chart review) Social History Tobacco Use Types Packs/Day Years [...] encounter Miscellaneous Notes * Telephone Encounter - Rajni García RN - 09/02/2024 8:29 AM EST KAREN García RN, performed chart review, in anticipation of initial assessment with patient, as patient has stratified for Adult Complex Care through the ADT feed. History significant for anxiety, asthma, chronic Hep C, cirrhosis of liver, depressed bipolar 1 disorder, diabetic polyneuropathy, dystrophia unguium, HTN, hyperlipidemia, onychomycosis, panic disorder without agoraphobia, prolactinoma, Type 2 DM, perforating dermatosis, bloody discharge from right nipple, adverse effect of COVID-19 vaccine, calcaneal spur, renal stones, chronic headaches, PAD, sleep disorder, somnolence, class 1 obesity, diabetic retinopathy, carpal tunnel syndrome, benign neoplasm of pituitary gland, Type 2 DM, chest pain, hematuria, and dysuria. Specialists include Orthopedic Surgery, Podiatry, [facility], [facility]YS[facility], Infectious Disease, Rheumatology, ENT, Optometry, [facility], Dermatology, and Vascular Surgery. ED visits within the last 12 months include [facility] 09/01/24. Last appointment in PCP office on 08/29/24. Next appointment scheduled for 09/22/24 at 3:30pm with Podiatry and 09/25/24 at2:00pm with PCP for follow up. documented in this encounter Plan of Treatment Upcoming Encounters Date Type Department Care Team (Perri Contact Info) Description 09/23/2024 11:15 AM EST Office Visit [facility] [address] [place] [address] Wanda Bonilla ANP [address] [place] [address] 10/21/2024 10:00 AM EDT Office Visit [facility] [address] [place], [place] [phone] Shivani Small CNM [address] [place] [address] documented as of this encounter Visit Diagnoses Not on filedocumented in this encounter Additional Health Concerns Assessment Noted Time PHQ-9 Depression Total Score: 5 11/23/19 24 1:33 PM EDT documented as of this encounter Care Teams Rail Doweling Machine Operator Relationship Specialty Start Date End Date Wanda Bonilla ANP [address] [place] [phone] PCP - General Family Medicine 09/03/20 documented as of this encounter
--- OUTSIDE RECORDS SUMMARY | 2024-09-08 14:35 | XMS_ITS | Encounter Summary ---
Author Organization [employer] Address [address] [facility] 7t [place] [address] Care Team Providers Care Dust Operator Name Role Phone Wanda Bonilla Primary Care Provider [phone] Encounter Details Date Type Department Care Team [...] Description 09/23/2024 11:15 AM EST Office Visit [address] [address] Wanda Bonilla ANP [address] [place] [address] 10/21/2024 10:00 AM EDT Office Visit [address] [address] Shivani Small CNM [address] [place] [address] documented as of this encounter Visit Diagnoses Not on filedocumented in this encounter Additional Health Concerns Assessment Noted Time PHQ-9 Depression Total Score: 5 11/23/19 24 1:33 PM EDT documented as of this encounter Care Teams Dust Operator Relationship Specialty Start Date End Date Wanda Bonilla ANP [address] [place] [phone] PCP - General Family Medicine 09/03/20 documented as of this encounter
--- OUTSIDE RECORDS SUMMARY | 2024-09-08 14:35 | XMS_ITS | Encounter Summary ---
Author Organization [employer] Address [address] [facility] 7t [place] [address] Care Team Providers Care Military Technology Manager Name Role Phone Wanda Bonilla Primary Care Provider [phone] Reason for Visit * Reason Comments Med Refill Encounter Details Date Type Department Care Team ([facility] st Contact Info) Description 08/11/2024 Refill [facility] [address] [place] [address] Wanda Bonilla ANP [address] [place] [address] Diabetic polyneuropathy associated with type 2 diabetes [...] Description 09/23/2024 11:15 AM EST Office Visit [address] [address] Wanda Bonilla ANP [address] [place] [phone] 10/21/2024 10:00 AM EDT Office Visit [address] [address] Shivani Small CNM [address] [place] [phone] documented as of this encounter Visit Diagnoses Diagnosis Diabetic polyneuropathy associated with type 2 diabetes mellitus (CMS/HCC) documented in this encounter Additional Health Concerns Assessment Noted Time PHQ-9 Depression Total Score: 5 11/23/19 24 1:33 PM EDT documented as of this encounter Care Teams Military Technology Manager Relationship Specialty Start Date End Date Wanda Bonilla ANP [address] [place] [phone] PCP - General Family Medicine 09/03/20 documented as of this encounter
--- OUTSIDE RECORDS SUMMARY | 2024-09-08 14:35 | XMS_ITS | Encounter Summary ---
Author Organization [employer] Address [address] [facility] 7t [place] [address] Care Team Providers Care Community Services Coordinator Name Role Phone Wanda Bonilla TAHIR Primary Care Provider [phone] Reason for Visit * Reason Comments Med Refill Encounter Details Date Type Department Care Team ([facility] st Contact Info) Description 03/20/2024 Refill [facility] [address] [place], [place] [phone] Shivani Small CNM [address] [place] [address] Social History Tobacco Use Types Packs/Day Years [...] Description 09/23/2024 11:15 AM EST Office Visit [facility] [address] [place] [address] Wanda Bonilla ANP [address] [place] [address] 10/21/2024 10:00 AM EDT Office Visit [facility] [address] [place] [address] Shivani Small CNM [address] [place] [address] documented as of this encounter Visit Diagnoses Not on filedocumented in this encounter Additional Health Concerns Assessment Noted Time PHQ-9 Depression Total Score: 5 11/23/19 24 1:33 PM EDT documented as of this encounter Care Teams Community Services Coordinator Relationship Specialty Start Date End Date Wanda Bonilla ANP [address] [place] [phone] PCP - General Family Medicine 09/03/20 documented as of this encounter
--- OUTSIDE RECORDS SUMMARY | 2024-09-08 14:35 | XMS_ITS | Encounter Summary ---
Author Organization [employer] Address [address] [facility] 7t [place] [address] Care Team Providers Care Relief Salesperson Name Role Phone Wanda Bonilla Primary Care Provider [phone] Reason for Visit * Reason Onset Date Comments Referral 08/30/2022 Encounter Details Date Type Department Care Team ([facility] st Contact Info) Description 08/30/2022 Telephone [facility] MEDICINE [address] [place] [address] Wanda Bonilla ANP 230 [place] [address] Referral Social History Tobacco Use Types Packs/Day [...] see a neurologist Please contact pt at [phone] documented in this encounter Plan of Treatment Upcoming Encounters Date Type Department Care Team (Late st Contact Info) Description 09/23/2024 11:15 AM EST Office Visit [address] [address] Wanda Bonilla ANP [address] [place] [phone] 10/21/2024 10:00 AM EDT Office Visit [address] [address] Shivani Small CNM [address] [place] [address] documented as of this encounter Visit Diagnoses Not on filedocumented in this encounter Additional Health Concerns Assessment Noted Time PHQ-9 Depression Total Score: 0 08/25/19 23 1:48 PM EST documented as of this encounter Care Teams Relief Salesperson Relationship Specialty Start Date End Date Wanda Bonilla ANP [address] [place] [phone] PCP - General Family Medicine 09/03/20 documented as of this encounter
--- OUTSIDE RECORDS SUMMARY | 2024-09-08 14:36 | XMS_ITS | Encounter Summary ---
Author Organization [employer] Address [address] [facility] [address] 7t [place] [address] Care Team Providers Care Home Economist Consumer Service Name Role Phone Sandra Vieira Primary Care Provider [phone] Encounter Details Date Type Department Care Team (Late st Contact Info) Description 09/01/2024 Orders Only [facility] External Provider, [facility] Social History Tobacco Use Types Packs/Day Years [...] Description 09/23/2024 11:15 AM EST Office Visit [facility] MEDICINE [address] [place], [place] [phone] Sandra Vieira, ANP [address] [place], [place] [phone] 10/21/2024 10:00 AM EDT Office Visit [facility] MEDICINE [address] [place], [place] [phone] Shivani Small, CNM [address] [place], [place] [phone] documented as of this encounter Procedures Procedure Name Priority Date/Time Associated Diagnosis Comments HIGH SENSITIVITY TROPONIN I Routine 09/01/2024 6:13 PM EST URINALYSIS WITH REFLEX MICROSCOPIC Routine 09/01/2024 6:13 PM EST D DIMER HIGH SENSITIVITY Routine 09/01/2024 3:51 PM EST HIGH SENSITIVITY TROPONIN I Routine 09/01/2024 3:51 [...] EST documented in this encounter Results * (ABNORMAL) High Sensitivity Troponin I (09/01/2024 6:13 PM EST) TROPONIN I HIGH SENSITIVITY 142.2(HH) <3.5 - 17.0 ng/L [facility] Comment:Critical value for t est(s): TROP-IHS Results called to em back by:BOWEN Person calling: WANDERSF Date:56-10-14Nsez:1839The Jimenes high sensitivity Troponin-I results should beused in conjunction with other diagnostic information suchas ECG, clinical observations and information, and patientsymptoms to aid in the diagnosis of [place]. 09/01/2024 6:13 PM EST 09/01/2024 6:17 PM EST us Generic External Data Provider LAB BLOOD ORDERAB LES Final Result [facility] [address] [place] [phone] * Urinalysis w/reflex microscopic (09/01/2024 6:13 PM EST) Color Urine Yellow [facility] Appearance Urine Cloudy [facility] PH 7.0 5.0 - 9.0 [facility] Glucose Urine UA Negative Negative mg/dL [facility] Urine Blood Negative Negative [facility] Specific [place] - Urine 1.015 1.005 - 1.025 [facility] Urine Protein Negative Neg-Trace mg/dL [facility] Urine Ketones Negative Negative mg/dL [facility] Nitrite Urine Negative Negative [facility] Leukocyte Esterase Urine Negative Negative [facility] 09/01/2024 6:13 PM EST 09/01/2024 6:17 PM EST Narrative [facility] - 09/01/2024 6:25 PM EST [id number], Clean Catch Generic External Data Provider LAB URINE ORDERAB LES Final Result Performing Organization Address [facility] de Phone Number [facility] [address] [place] [phone] * D Dimer High Sensitivity (09/01/2024 3:51 PM EST) [facility] D Dimer High Sensitivity <150 NG/ML [facility] Comment:D-DIMER HS REFERENCE RANGENote: Our assay reports D-Dimer Units (D- DU).The cut-off value for venous thromboembolic (VTE) disease is230 ng/mL. This value has a very high negative predictivevalue when the patient has a low to moderate clinicalprobability of VTE.The upper limit of normal is 243 ng/mL. 09/01/2024 3:51 PM EST 09/01/2024 3:53 PM EST Generic External Data Provider LAB BLOOD ORDERAB LES Final Result Performing Organization Address [facility] de Phone Number [facility] [address] [place] [phone] * SARS-CoV-2 RNA, Influenza A/B, and RSV RNA, Ql NAAT (09/01/2024 3:51 PM EST) [facility] Influenza A PCR NEGATIVE Negative [facility] Influenza B PCR NEGATIVE Negative [facility] Resp Syncy Virus RNA Qual PCR NEGATIVE Negative [facility] SARS COV2 PCR NEGATIVE Negative [facility] Comment:All test results mus t [...] use by authorized laboratories.Testing performed on the [employer] GeneXpert utilizingreal-time RT-PCR.All SARS CoV2 and positive influenza A/B results arereported to [facility]. 09/01/2024 3:51 PM EST 09/01/2024 3:53 PM EST Generic External Data Provider LAB MICROBIOLOGY - GENERAL ORDERABLES Final Result Performing Organization Address [facility] Co de Phone Number [facility] [address] [place] [phone] * (ABNORMAL) High Sensitivity Troponin I (09/01/2024 3:51 PM EST) [facility] TROPONIN I HIGH SENSITIVITY 143.5(HH) <3.5 - 17.0 ng/L [facility] Comment:Critical value for t est(s):TROP-IHS Results called to em back by: RENNY Person calling:KUS Date:09-03-56Qyvm:1627The Jimenes high sensitivity Troponin-I results should beused in conjunction with other diagnostic information suchas ECG, clinical observations and information, and patientsymptoms to aid in the diagnosis of [place]. 09/01/2024 3:51 PM EST 09/01/2024 3:53 PM EST Generic External Data Provider LAB BLOOD ORDERAB LES Final Result Performing Organization Address [facility] Co de Phone Number [facility] [address] [place] [phone] * Lipase (09/01/2024 3:51 PM EST) Pathologist [facility] Lipase 13 8 - 78 U/L [facility] 09/01/2024 3:51 PM EST 09/01/2024 3:53 PM EST Generic External Data Provider LAB BLOOD ORDERAB LES Final Result Performing Organization Address [facility]/ZIP Co de Phone Number [facility] [address] [place] [phone] * Magnesium (09/01/2024 3:51 PM EST) [facility] Magnesium 2.1 1.6 - 2.6 mg/dL [facility] 09/01/2024 3:51 PM EST 09/01/2024 3:53 PM EST Serus External Data Provider LAB BLOOD ORDERAB LES Final Result Performing Organization Address [facility] Co de Phone Number [facility] [address] [place] [phone] * (ABNORMAL) Basic Metabolic Panel (09/01/2024 3:51 PM EST) [facility] Sodium 141 135 - 145 mmol/L [facility] Potassium 3.9 3.3 - 5.1 mmol/L [facility] Chloride 110(H) 96 - 108 mmol/L [facility] Carbon Dioxide 26 22 - 29 mmol/L [facility] Anion Gap 9(L) 12 - 20 [facility] Urea Nitrogen (BUN) 12 9 - 16 mg/dL [facility] Creatinine, Serum 0.93 0.5 - 1.4 mg/dL [facility] Creatinine Clr Calc Pharmacy 63.0 [facility] Comment:Provided height and weight: 160.02 cm,78.6 kg.eGFR (calculated from the MDRD study equation) and eCrCl(calculated from the Cockcroft-Gault equation) are based ondifferent parameters and may not yield comparable results.If eCrCl result is absurd, please check patient'sheight/weight. Estimated Glomerular Filt Rate >60 [facility] Comment:Chronic Kidney Disea se: Estimated GFR < 60 mL/min/1.89m3Hgkvrr Kidney Disease: Estimated GFR < 15 mL/min/1.73m2 Glucose 112 60 - 115 mg/dL [facility] Calcium 9.5 8.4 - 10.2 mg/dL [facility] 09/01/2024 3:51 PM EST 09/01/2024 3:53 PM EST Generic External Data Provider LAB BLOOD ORDERAB LES Final Result Performing Organization Address [facility]/ZIP Co de Phone Number [facility] [address] [place] [phone] * (ABNORMAL) Hepatic Function Panel (09/01/2024 3:51 PM EST) Bilirubin, Total 0.4 0.0 - 1.0 mg/dL [facility] Bilirubin, Direct 0.1 0.0 - 0.5 mg/dL [facility] Aspartate Amino Transferase 54(H) 5 - 31 U/L [facility] Alanine Aminotransferase 65(H) 0 - 31 U/L [facility] Total Protein 7.7 6.5 - 8.0 g/dL [facility] Albumin Level 3.8 3.5 - 5.0 g/dL [facility] Alkaline Phosphatase 159(H) 39 - 117 U/L [facility] 09/01/2024 3:51 PM EST 09/01/2024 3:53 PM EST us Generic External Data Provider LAB BLOOD ORDERAB LES Final Result Performing Organization Address [facility] Co de Phone Number [facility] [address] [place] [phone] * (ABNORMAL) B Type Natriuretic Peptide (BNP) (09/01/2024 3:51 PM EST) B Type Natriuretic Peptide 104(H) <100 pg/mL [facility] Comment:For those patients w ho are being treated with Natrecor(nesiritide, recombinant BNP), BNP testing should beperformed at least two hours post treatment in order toensure that only endogenous levels of BNP are detected. 09/01/2024 3:51 PM EST 09/01/2024 3:53 PM EST Generic External Data Provider LAB BLOOD ORDERAB LES Final Result Performing Organization Address [facility] de Phone Number [facility] [address] [place] [phone] * Prothrombin Time-INR (09/01/2024 3:51 PM EST) Pathologist [facility] Prothrombin Time 11.5 10.9 - 12.4 SEC [facility] INTERNATIONAL NORM RATIO 1.0 0.9 - 1.1 [facility] Comment:INTERNATIONAL NORMAL IZED RATIO (INR) [...] 3:51 PM EST 09/01/2024 3:53 PM EST Serus External Data Provider LAB BLOOD ORDERAB LES Final Result Performing Organization Address [facility] de Phone Number [facility] [address] [place] [phone] * (ABNORMAL) CBC auto differential (09/01/2024 3:51 PM EST) Pathologist [facility] White Blood Count 4.9 4.8 - 10.8 X10*3/uL [facility] Red Blood Count 4.25 4.20 - 5.50 X10*6/uL [facility] Hemoglobin 12.0 12.0 - 16.0 g/dl [facility] Hematocrit 34.9(L) 37.0 - 47.0 % [facility] Mean Corpuscular Volume 82.1 80.0 - 98.0 fL [facility] Mean Corpuscular Hemoglobin 28.2 27.0 - 33.0 pg [facility] Mean Corpuscular HGB Conc 34.4 31.0 - 35.0 g/dl [facility] Red Cell Distribution Width 12.6 11.0 - 16.0 % [facility] Platelet Count 110(L) 160 - 400 X10*3/uL [facility] Mean Platelet Volume 10.3 9.4 - 12.3 fL [facility] Neutrophils Percent Auto 61.2 45 - 73 % [facility] Imm Gran Pct Auto 0.2 0.0 - 0.4 % [facility] Lymphocytes Percent Auto 26.4 20 - 40 % [facility] Monocytes Percent Auto 11.0 2 - 11 % [facility] Eosinophils Percent Auto 1.0 0 - 4 % [facility] Basophils Percent Auto 0.2 0 - 2 % [facility] NRBC Pct Auto 0.0 0.0 - 0.2 /100WBC [facility] Neutrophils Absolute Auto 3.0 2.0 - 8.3 x10*3/uL [facility] Imm Gran Abs Auto 0.01 0.00 - 0.03 X10*3/uL [facility] Lymphocytes Absolute Auto 1.3 1.2 - 4.9 X10*3/uL [facility] Monocytes Absolute Auto 0.5 0.1 - 1.2 X10*3/uL [facility] Eosinophils Absolute Auto 0.1 0.0 - 0.4 X10*3/uL [facility] Basophils Absolute Auto 0.0 0.0 - 0.2 X10*3/uL [facility] NRBC Abs Auto 0.000 0.0 - 0.012 X10*3/uL [facility] 09/01/2024 3:51 PM EST 09/01/2024 3:53 PM EST us Generic External Data Provider LAB BLOOD ORDERAB LES Final Result [facility] [address] [place] [phone] [phone] * XR Chest 2 Views (09/01/2024 1:48 PM EST) Anatomical Region Laterality Modality Chest Radiographic Nina ging 09/01/2024 1:48 PM EST Narrative 09/01/2024 2:23 PM EST ? [facility] ?[address] ?[place] [address] ?XRay Report ? Signed ? Patient: Colon,Milsa ?MR#: [id number] ? : 1965 ?Acct:[id number] ? Age/Sex: 59 / F ?ADM Date: 09/01/24 ? Loc: HO.ED ? Attending Dr: ? Ordering Physician: Angela Reyes ?? Date of Service: 09/01/24 ?? Procedure(s): XR chest 2V ?? Accession Number(s): [id number] ? cc: Angela Reyes; SANDRA VIEIRA NP [...] DD/ 1348 ? TD/TT: 09/01/24 1410 ? Applier: ? Procedure Note Donotuseinterpreter, Image - 09/01/[address] [address] XRay Report Signed Patient: Barrera Max#: [id number] : 1965Acct:[id number] Age/Sex: 59 / FADM Date: 09/01/24 Loc: .ED Attending Dr: Ordering Physician: Angela Reyes Date of Service: 09/01/24 Procedure(s): XR chest 2V Accession Number(s): [id number] cc: Angela Reyes; SANDRA VIEIRA NP EXAMINATION: [...] by: Mundo England MD 09/01/2024 02:20 PM [facility] Dictated By: Mundo England MD Signed By: <Electronically signed by Mundo England MD in OV> 09/01/24 1420 DD/ 1348 TD/TT: 09/01/24 1410 Applier: [facility] External Provider IMG XR PROCEDURES Final Result documented in this encounter Visit Diagnoses Not on filedocumented in this encounter Additional Health Concerns Assessment Noted Time PHQ-9 Depression Total Score: 5 11/23/19 24 1:33 PM EDT documented as of this encounter Care Teams Home Economist Consumer Service Relationship Specialty Start Date End Date Sandra Vieira ANP [address] [place] [address] PCP - General Family Medicine 09/03/20 documented as of this encounter
--- OUTSIDE RECORDS SUMMARY | 2024-09-08 14:36 | XMS_ITS | Encounter Summary ---
Author Organization [employer] Address [address] [facility] 7t [place] [address] Care Team Providers Care Robotic Welding Operator Name Role Phone Wanda Bonilla Primary Care Provider [phone] Reason for Visit * Reason Onset Date Comments Nurse Triage 03/09/2023 Encounter Details Date Type Department Care Team ([facility] st Contact Info) Description 03/09/2023 Telephone [facility] MEDICINE [address] [place] [address] Wanda Bonilla ANP 230 [place] [address] Nurse Triage Social History Tobacco Use Types [...] 03/09/2023 9:53 AM EDT Triage call with [employer] [place] [id number] Pt was seen in ED 02/25 for UTI and started on fluconazole and cefdinir 300mg for 7 days. Pt is finished with antibiotics and is reporting bladder discomfort , burning with urination and frequency which continues. Pt is advised to come to [facility] today open till 4pm to be [...] caller accepted this outcome Please contact at [phone] Sinhala documented in this encounter Plan of Treatment Upcoming Encounters Date Type Department Care Team (Late st Contact Info) Description 09/23/2024 11:15 AM EST Office Visit [address] [address] Wanda Bonilla ANP [address] [place] [address] 10/21/2024 10:00 AM EDT Office Visit [address] [address] Shivani Small CNM [address] [place] [phone] documented as of this encounter Visit Diagnoses Not on filedocumented in this encounter Additional Health Concerns Assessment Noted Time PHQ-9 Depression Total Score: 0 08/25/19 23 1:48 PM EST documented as of this encounter Care Teams Robotic Welding Operator Relationship Specialty Start Date End Date Wanda Bonilla ANP [address] [place] [phone] PCP - General Family Medicine 09/03/20 documented as of this encounter
--- OUTSIDE RECORDS SUMMARY | 2024-09-08 14:36 | XMS_ITS | Encounter Summary ---
Author Organization [employer] Address [address] [facility] [address] 7t [place] [address] Care Team Providers Care Line Patroller Name Role Phone Wanda Bonilla Primary Care Provider [phone] Encounter Details Date Type Department Care Team ([facility] st Contact Info) Description 09/26/2023 Telephone [facility] MEDICINE [address] [place] [address] Wanda Bonilla ANP [address] [place] [address] Social History Tobacco Use Types Packs/Day Years [...] Description 09/23/2024 11:15 AM EST Office Visit [facility] [address] [place] [address] Wanda Bonilla ANP [address] [place] [address] 10/21/2024 10:00 AM EDT Office Visit [address] [address] Shivani Small CNM [address] [place] [address] documented as of this encounter Visit Diagnoses Not on filedocumented in this encounter Additional Health Concerns Assessment Noted Time PHQ-9 Depression Total Score: 0 08/25/19 23 1:48 PM EST documented as of this encounter Care Teams Line Patroller Relationship Specialty Start Date End Date Wanda Bonilla ANP [address] [place] [address] PCP - General Family Medicine 09/03/20 documented as of this encounter
--- OUTSIDE RECORDS SUMMARY | 2024-09-08 14:36 | XMS_ITS | Encounter Summary ---
Author Organization [employer] Address [address] [facility] 7t [place] [address] Care Team Providers Care Point Of Sale Associate Name Role Phone Wanda Bonilla Primary Care Provider Reason for Visit * Reason Onset Date Comments Med Refill 10/01/2023 Encounter Details Date Type Department Care Team ([facility] st Contact Info) Description 10/01/2023 Telephone [facility] MEDICINE [address] [place] [address] Wanda Bonilla ANP [address] [place] [address] Med Refill Social History Tobacco Use Types [...] 250 MG tablet To be sent to: [facility] pharmacy documented in this encounter Plan of Treatment Upcoming Encounters Date Type Department Care Team (Late st Contact Info) Description 09/23/2024 11:15 AM EST Office Visit [facility] MEDICINE [address] [place] [address] Wanda Bonilla ANP [address] [place] [address] 10/21/2024 10:00 AM EDT Office Visit [facility] MEDICINE [address] [place] [address] Shivani Small CNM 230 [place] [address] documented as of this encounter Visit Diagnoses Not on filedocumented in this encounter Additional Health Concerns Assessment Noted Time PHQ-9 Depression Total Score: 0 08/25/19 23 1:48 PM EST documented as of this encounter Care Teams Point Of Sale Associate Relationship Specialty Start Date End Date Wanda Bonilla ANP [address] [place] [address] PCP - General Family Medicine 09/03/20 documented as of this encounter
--- OUTSIDE RECORDS SUMMARY | 2024-09-08 14:36 | XMS_ITS | Encounter Summary ---
Author Organization [employer] Address [address] [facility] 7t [place] [address] Care Team Providers Care Screen Vent Binder Name Role Phone Wanda Bonilla Primary Care Provider [phone] Reason for Visit * Reason Comments Female Dysuria Encounter Details Date Type Department Care Team ([facility] st Contact Info) Description 08/29/2024 11:20 AM EST Office Visit [facility] [address] [place] [phone] Name, MD Jaxson [address] [place], [place] [phone] Dysuria (Primary Dx); Suprapubic discomfort; History of [...] Description 09/23/2024 11:15 AM EST Office Visit [facility] MEDICINE [address] [place] [address] Wanda Bonilla ANP [address] [place] [address] 10/21/2024 10:00 AM EDT Office Visit [address] [address] Shivani Small, CINTHIA [address] [place] [address] documented as of this encounter Procedures Procedure [...] Detected Urine 08/29/2024 11:3 8 AM EST [facility] Name POINT OF CARE TEST ENTER/EDIT [...] documented as of this encounter Care Teams Screen Vent Binder Relationship Specialty Start Date End Date Wanda Bonilla ANP [address] [place] [phone] PCP - General Family Medicine 09/03/20 documented as of this encounter
--- OUTSIDE RECORDS SUMMARY | 2024-09-08 14:36 | XMS_ITS | Encounter Summary ---
Author Organization [employer] [facility] Address [address] [place] [address] 7t [place] [address] Care Team Providers Care Rivet Passer Name Role Phone Wanda Bonilla Primary Care Provider [phone] Reason for Visit * Reason Onset Date Comments triage 07/13/2022 Encounter Details Date Type Department Care Team (Late st Contact Info) Description 07/13/2022 Telephone [facility] MEDICINE [address] [place] [address] Wanda Bonilla ANP [address] [place] [phone] triage Social History Tobacco Use Types Packs/Day [...] caller The caller accepted this outcome speaks kazakh documented in this encounter Plan of Treatment Upcoming Encounters Date Type Department Care Team (Late st Contact Info) Description 09/23/2024 11:15 AM EST Office Visit [facility] MEDICINE [address] [place] [address] Wanda Bonilla ANP [address] [place] [address] 10/21/2024 10:00 AM EDT Office Visit [facility] MEDICINE [address] [place], [place] [phone] Shivani Small CNM [address] [place], [place] [phone] documented as of this encounter Visit Diagnoses Not on filedocumented in this encounter Care Teams Rivet Passer Relationship Specialty Start Date End Date Wanda Bonilla ANP [address] [place] [phone] PCP - General Family Medicine 09/03/20 documented as of this encounter
--- OUTSIDE RECORDS SUMMARY | 2024-09-08 14:36 | XMS_ITS | Encounter Summary ---
Author Organization [employer] Address 75 [facility] 7t [place] [address] Care Team Providers Care Supervisor Electronics Testing Name Role Phone Wanda Bonilla Primary Care Provider Reason for Visit * Reason Onset Date Comments Appointment Request 02/04/2024 Encounter Details Date Type Department Care Team ([facility] st Contact Info) Description 02/04/2024 Telephone [facility] MED[facility]INE [address] [place] [address] Wanda Bonilla ANP 230 [place] [address] Appointment Request Social History Tobacco Use Types [...] Appt is still expected. Please contact at [phone] documented in this encounter Plan of Treatment Upcoming Encounters Date Type Department Care Team (Late st Contact Info) Description 09/23/2024 11:15 AM EST Office Visit [facility] MEDICINE [address] [place] [address] Wnada Bonilla ANP [address] [place] [address] 10/21/2024 10:00 AM EDT Office Visit [facility] MED[facility]INE [address] [place] [address] Shivani Small CNM [address] [place] [address] documented as of this encounter Visit Diagnoses Not on filedocumented in this encounter Additional Health Concerns Assessment Noted Time PHQ-9 Depression Total Score: 5 11/23/19 24 1:33 PM EDT documented as of this encounter Care Teams Supervisor Electronics Testing Relationship Specialty Start Date End Date Wanda Bonilla ANP [address] [place] [address] PCP - General Family Medicine 09/03/20 documented as of this encounter
--- OUTSIDE RECORDS SUMMARY | 2024-09-08 14:36 | XMS_ITS | Encounter Summary ---
Author Organization [employer] Address 75 [facility] 7t [place] [address] Care Team Providers Care Animal Husbandry Worker Name Role Phone Wanda Bonilla Primary Care Provider [phone] Reason for Visit * Reason Onset Date Comments Hospital Follow-up 11/15/2023 Encounter Details Date Type Department Care Team ([facility] st Contact Info) Description 11/15/2023 Telephone [facility]INE [address] [place] [address] Wanda Bonilla ANP [address] [place] [address] Hospital Follow-up Social History Tobacco Use Types [...] from pt requesting a HDF appt. Hospital: [facility] Date of admission: 11/09 Discharge date: 11/13 Diagnosed: Neuropathy documented in this encounter Plan of Treatment Upcoming Encounters Date Type Department Care Team (Late st Contact Info) Description 09/23/2024 11:15 AM EST Office Visit [address] [address] Wanda Bonilla ANP [address] [place] [address] 10/21/2024 10:00 AM EDT Office Visit [address] [address] Shivani Small CNM [address] [place] [address] documented as of this encounter Visit Diagnoses Not on filedocumented in this encounter Additional Health Concerns Assessment Noted Time PHQ-9 Depression Total Score: 0 08/25/19 23 1:48 PM EST documented as of this encounter Care Teams Animal Husbandry Worker Relationship Specialty Start Date End Date Wanda Bonilla ANP [address] [place] [address] PCP - General Family Medicine 09/03/20 documented as of this encounter
--- OUTSIDE RECORDS SUMMARY | 2024-09-08 14:36 | XMS_ITS | Clinical Summary ---
Author Organization 175 [facility] Address 175 [place] [address] Phone Care Team Providers Care Surveillance Agent Name Role Phone Regina Su PLASTICS PATTERNMAKER Primary Care Provider [phone] Allergies No known active allergies Medications insulin glargine,hum.re c.anlog (INSULIN GLARGINE SUBQ) Activ e omeprazole (PriLOSEC) [address] capsule Take [...] SUBQ) Inject under the skin. Active lisinopriL (PRINIVIL,ZESTR IL) 10 mg tablet Take 1 tablet (10 [...] Recorded Sex Assigned at Not on file Legal Sex Female 3:47 PM EST Gender Identity Not on file Sexual Orientation Not on file Plan of Treatment Upcoming Encounters Date Type Department Care Team ([facility] st Contact Info) Description 09/22/2024 3:30 PM EST Office Visit [facility] [place] [address] [phone] Mario Robbins, DPM [address] [address] Health Maintenance Due Date Last Done Comments Breast Cancer Screening 1963 Diabetes: Annual GFR (Glomer ular Filtration Rate) 1963 DTaP,Tdap,and Td Vaccines (1 - Tdap) 1970 Diabetes: Annual Foot Exam 1973 Diabetes: Annual Retina Eye Exam 1973 Pneumococcal Vaccine: 50+ Ye ars (1 of 2 - PCV) 1982 Pneumococcal Vaccine: Pediat rics (0 to 5 Years) and At-Risk Patients (6 to 64 Years) (1 of 2 - PCV) 1982 Cervical Cancer Screening: P ap Smear 1984 Zoster Vaccines (1 of 2) 2013 RSV Immunization Patients 60 + Years Old (1 - Risk 60-74 years 1-dose series) 2023 COVID-19 Vaccine ( - 2023-2 5 season) 2024 Influenza Vaccine [...] patient's age to complete this topic Meningococcal B Vacine Aged Out No lo nger eligible based on patient's age to complete this topic RSV Immunization Patients Un tamera 20 months Aged Out No longer eligible b ased on patient's age to complete this topic Varicella Vaccines Aged Out No longer eligible based on patient's age to complete this topic Insurance MEDICAID - [place] Care Teams Surveillance Agent Relationship Specialty Start Date End Date Regina Su FNP [address] [place] [address] PCP - General Nurse Practitioner 07/11/24
--- OUTSIDE RECORDS SUMMARY | 2024-09-08 14:36 | XMS_ITS | Encounter Summary ---
Author Organization [employer] Address 75 [facility] 7t [place] [address] Care Team Providers Care Machine Hose Cutter Name Role Phone Wanda Bonilla Primary Care Provider [phone] Reason for Visit * Reason Comments Med Refill Encounter Details Date Type Department Care Team ([facility] st Contact Info) Description 12/03/[address] [facility] MEDICINE 230 [place], [place] [phone] Shelli Vo MD [address] [place], [place] [phone] Med Refill Social History Tobacco Use Types [...] Description 09/23/2024 11:15 AM EST Office Visit [facility] MEDICINE [address] [place] [address] Wanda Bonilla ANP [address] [place] [address] 10/21/2024 10:00 AM EDT Office Visit [facility] MEDICINE [address] [place] [address] Shivani Small CNM [address] [place] [address] documented as of this encounter Visit Diagnoses Diagnosis Asthma, unspecified asthma severity, unspecified whether complicated, unspecified whether persistent documented in this encounter Additional Health Concerns Assessment Noted Time PHQ-9 Depression Total Score: 5 11/23/19 24 1:33 PM EDT documented as of this encounter Care Teams Machine Hose Cutter Relationship Specialty Start Date End Date Wanda Bonilla ANP [address] [place] [phone] PCP - General Family Medicine 09/03/20 documented as of this encounter
--- OUTSIDE RECORDS SUMMARY | 2024-09-08 14:36 | XMS_ITS | Encounter Summary ---
Author Organization [employer] Address 75 [facility] 7t [place] [address] Care Team Providers Care Fire Captain Name Role Phone Wanda Bonilla Primary Care Provider [phone] Reason for Visit * Reason Onset Date Comments Results 09/12/2023 Encounter Details Date Type Department Care Team ([facility] st Contact Info) Description 09/12/2023 Telephone [facility] MEDICINE [address] [place] [address] Wanda Bonilla ANP 230 [place] [address] Results Social History Tobacco Use Types Packs/Day [...] (in chart) Date when done: 08/30 Facility: [facility] Type of results: US neck Date when done: sometime last week per pt Facility: [facility] Please contact pt at [phone] documented in this encounter Plan of Treatment Upcoming Encounters Date Type Department Care Team (Late st Contact Info) Description 09/23/2024 11:15 AM EST Office Visit [facility] MED[facility]INE [address] [place] [address] Wanda Bonilla ANP [address] [place] [address] 10/21/2024 10:00 AM EDT Office Visit [facility] [address] [place] [address] Shivani Small CNM [address] [place] [address] documented as of this encounter Visit Diagnoses Not on filedocumented in this encounter Additional Health Concerns Assessment Noted Time PHQ-9 Depression Total Score: 0 08/25/19 23 1:48 PM EST documented as of this encounter Care Teams Fire Captain Relationship Specialty Start Date End Date Wanda Bonilla ANP [address] [place] [address] PCP - General Family Medicine 09/03/20 documented as of this encounter
--- OUTSIDE RECORDS SUMMARY | 2024-09-08 14:36 | XMS_ITS | Encounter Summary ---
Author Organization [facility] Address [address] [place] [address] 7t [place] [address] Care Team Providers Care Air Conditioner Installer Helper Name Role Phone Wanda Bonilla Primary Care Provider [phone] Reason for Visit * Reason Comments Med Refill Encounter Details Date Type Department Care Team (Late Contact Info) Description 01/11/2023 Refill [facility] MEDICINE [address] [place] [address] Wanda Bonilla ANP [address] [place] [address] Social History Tobacco Use Types Packs/Day Years [...] Department Care Team (Late Contact Info) Description 09/23/2024 11:15 AM EST Office Visit [facility] MEDICINE [address] [place] [address] Wanda Bonilla ANP [address] [place], [place] [phone] 10/21/2024 10:00 AM EDT Office Visit [facility] [address] [place], [place] [phone] Shivani Small CNM [address] [place], [place] [phone] documented as of this encounter Visit Diagnoses Not on filedocumented in this encounter Additional Health Concerns Assessment Noted Time PHQ-9 Depression Total Score: 0 08/25/19 23 1:48 PM EST documented as of this encounter Care Teams Air Conditioner Installer Helper Relationship Specialty Start Date End Date Wanda Bonilla ANP [address] [place] [phone] PCP - General Family Medicine 09/03/20 documented as of this encounter
--- OUTSIDE RECORDS SUMMARY | 2024-09-08 14:36 | XMS_ITS | Encounter Summary ---
Author Organization [employer] [facility] Address [address] [place] [address] 7 [place] [address] Care Team Providers Care Guest Service Supervisor Name Role Phone Irene Wanda HARO Primary Care Provider [phone] Reason for Visit * Reason Comments Med Refill Encounter Details Date Type Department Care Team (Late Contact Info) Description 04/03/2023 Refill [facility] [address] [place] [address] [phone] Brenda Lopez MD [address] [place] [address] [phone] Social History Tobacco Use Types Packs/Day Years [...] Description 09/23/2024 11:15 AM EST Office Visit [facility] [address] [place] [phone] Wanda Bonilla ANP [address] [place], [place] [phone] 10/21/2024 10:00 AM EDT Office Visit [facility] [address] [place] [address] Shivani Small CNM [address] [place] [address] documented as of this encounter Visit Diagnoses Not on filedocumented in this encounter Additional Health Concerns Assessment Noted Time PHQ-9 Depression Total Score: 0 08/25/19 23 1:48 PM EST documented as of this encounter Care Teams Guest Service Supervisor Relationship Specialty Start Date End Date Wanda Bonilla ANP [address] [place], [place] [phone] PCP - General Family Medicine 09/03/20 documented as of this encounter
--- OUTSIDE RECORDS SUMMARY | 2024-09-08 14:36 | XMS_ITS | Encounter Summary ---
Author Organization [employer] Address 75 [facility] 7t [place] [address] Care Team Providers Care Metal Dealer Name Role Phone Wanda Bonilla Primary Care Provider [phone] Reason for Visit * Reason Onset Date Comments Returning Call 01/08/2024 Encounter Details Date Type Department Care Team ([facility] st Contact Info) Description 01/08/2024 Telephone [facility] MEDICINE [address] [place] [address] Wanda Bonilla ANP 230 [place] [address] Returning Call Social History Tobacco Use Types [...] pt stated she received a call from day care director regarding new program in [facility], commercial lines underwriter did not see anything documented but advised will forward message. documented in this encounter Plan of Treatment Upcoming Encounters Date Type Department Care Team (Late st Contact Info) Description 09/23/2024 11:15 AM EST Office Visit [facility] MEDICINE [address] [place] [address] Wanda Bonilla ANP [address] [place] [address] 10/21/2024 10:00 AM EDT Office Visit [facility] MEDICINE [address] [place] [address] Shivani Small CNM [address] [place] [address] documented as of this encounter Visit Diagnoses Not on filedocumented in this encounter Additional Health Concerns Assessment Noted Time PHQ-9 Depression Total Score: 5 11/23/19 24 1:33 PM EDT documented as of this encounter Care Teams Metal Dealer Relationship Specialty Start Date End Date Wanda Bonilla ANP [address] [place] [address] PCP - General Family Medicine 09/03/20 documented as of this encounter
--- OUTSIDE RECORDS SUMMARY | 2024-09-08 14:36 | XMS_ITS | Encounter Summary ---
Author Organization [employer] Address 75 [facility] 7t [place] [address] Care Team Providers Care Legal Analyst Name Role Phone Wanda Bonilla Primary Care Provider [phone] Reason for Visit * Reason Comments Med Refill Encounter Details Date Type Department Care Team ([facility] st Contact Info) Description 11/05/2023 Refill [facility] MEDICINE [address] [place] [address] Wanda Bonilla ANP [address] [place] [address] Social History Tobacco Use Types Packs/Day Years [...] Description 09/23/2024 11:15 AM EST Office Visit [address] [address] Wanda Bonilla ANP [address] [place] [address] 10/21/2024 10:00 AM EDT Office Visit [address] [address] Shivani Small CNM [address] [place] [address] documented as of this encounter Visit Diagnoses Not on filedocumented in this encounter Additional Health Concerns Assessment Noted Time PHQ-9 Depression Total Score: 0 08/25/19 23 1:48 PM EST documented as of this encounter Care Teams Legal Analyst Relationship Specialty Start Date End Date Wanda Bonilla ANP [address] [place] [phone] PCP - General Family Medicine 09/03/20 documented as of this encounter
--- OUTSIDE RECORDS SUMMARY | 2024-09-08 14:36 | XMS_ITS | Clinical Summary ---
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 Name Role Phone Sandra Vieira Primary Care Provider [phone] Allergies Active Allergy Reactions Criticality Noted Date [...] AND BEDTIME NEEDED FOR DIZZINESS 30 tablet 1 Active famotidine (Pepcid) 20 MG tabletIndication s:Heartburn Take 1 tablet twice daily as needed for acid reflux 60 tablet 1 Active insulin lispro (HumaLOG) 100 UNIT/ML injectionIndicat ions:Type 2 diabetes mellitus with hyperlipidemia (CMS/HCC) ([facility]) INJECT 20 UNITS SUBCUTANEOUSLY THREE TIMES DAILY WITH MEALS 15 mL Active hydrocortisone 1 % creamIndications :Rash Apply [...] tabletIndication s:Type 2 diabetes mellitus with hyperlipidemia ([facility]/HCC) ([facility]) TAKE 1 TABLET BY MOUTH EVERY EVENING 90 tablet 3 024 Active pioglitazone (Actos) 15 MG tabletIndication s:Type 2 diabetes mellitus with hyperlipidemia ([facility]/HCC) ([facility]) TAKE 1 TABLET BY MOUTH [...] polyneuropathy associated with type 2 diabetes mellitus ([facility]) INJECT 0.5 MG SUBCUTANEOUSLY EVERY 7 DAYS IN THE ABDOMEN, THIGHS, OR UPPER ARM, ROTATE INJECTION SITES. 3 mL 1 025 Active insulin pen needle (Easy Touch Pen [place]) 31G X 8 mm miscIndications: Diabetic polyneuropathy associated with type 2 diabetes mellitus ([facility]) USE DIRECTED FOUR TIMES DAILY 100 each 025 Active Lantus SoloStar 100 UNIT/ML penIndications:T ype 2 diabetes mellitus with hyperglycemia, with long-term current use of insulin ([facility]) INJECT 54 UNITS SUBCUTANEOUSLY EVERY [...] weekly thereafter 45 g 2 025 Active sulfamethoxazole -trimethoprim (Bactrim DS) 800-160 MG tablet Take 1 tablet by mouth 2 times daily for 5 days. 10 tablet 025 2024 Active Blood Pressure Monitoring (Omron 3 Series BP Monitor) device Use as directed 1x/d 1 each 025 Active Blood Glucose Monitoring Suppl (Expedit.us Lite) w/Device kit Use to test blood sugar 1x times daily 1 kit Active insulin pen needle (UltiCare Short Pen [place]) 31G X 8 mm miscIndications: Diabetic polyneuropathy associated with type 2 diabetes mellitus ([facility]) USE FOUR TIMES DAILY WITH INSULIN 100 each 11 024 2024 Discontinued estradiol (Estrace) 0.1 MG/GM vaginal cream Insert 1 g into the vagina in the morning. 1g vaginally x 14d, then twice weekly thereafter 45 g 2 024 2024 Discontinued(R eorder (will not trigger notification to Pharmacy)) Blood Pressure Monitoring (Omron 3 Series BP Monitor) device USE TO CHECK BLOOD PRESSURE DIRECTED 024 2024 Discontinued(R eorder (will not trigger notification to Pharmacy)) insulin glargine (Lantus SoloStar) 100 UNIT/ML penIndications:T ype 2 diabetes mellitus with hyperglycemia, with long-term current use of insulin ([facility]) INJECT 54 UNITS SUBCUTANEOUSLY EVERY DAY 15 mL 3 04/28/ 024 2024 Discontinued gabapentin (Neurontin) 300 MG [...] Active Problems Problem Noted Date Diagnosed Date KAY (dyspnea on exertion) 09/08/2024 Assessment & Plan (09/08/2024 11:55 AM EST): Unclear if related to pain, probably from kidney stones or uncontrolled hypertension. Patient had cardiac workup in the emergency room recently and ACS was ruled out. Advised regarding tight control of hypertension and pain (unfortunately she is allergic to opiates) with Tylenol and ibuprofen I called [facility] cardiology clinic and they will call patient back for an earlier appointment regarding abnormally elevated troponins. Other microscopic hematuria 04/30/2024 Assessment & Plan (09/08/2024 11:47 AM EST): Unclear if related to kidney stone or UTI? Will rx w bactrim bid and she will continue Flomax for now. Encouraged to increase PO water, cranberry juice I told her that she should filter urine in case of kidney stone, fu w urology Assessment & Plan (04/30/2024 3:29 PM EDT): [...] Chest pain 12/07/2023 Overview (12/07/2023): Admitted at [facility] 11/11/-11/14/23 ?NSTEMI Optimize BP, DM, minimize risk [...] Psychiatrist decreased seroquel. She was referred to [facility] for further eval. History [...] 12/21/2017 Cirrhosis of liver 07/27/2017 Overview (10/01/2023): [facility] D/t HCV (suspect s/p blood transfusion [...] calcifications. 4. Status post cholecystectomy. Hypertension 12/14/2011 Assessment & Plan (09/08/2024 11:50 AM EST): Slightly uncontrolled, likely to pain Advised to take all meds including amlodipine until she sees cardiology. Take tylenol + ibuprofen bid then tylenol q8h prn pain. Resolved Problems Problem Noted Date Diagnosed Date [...] Encounters Date Type Department Care Team Description 09/08/2024 9:00 AM EST Office Visit [address] [address] Brenda Lopez MD DOE (dyspnea on exertion) (Primary Dx); Primary hypertension; Other microscopic hematuria 09/03/[address] [address] Sandra Vieira ANP ER Follow-up 09/02/2024 Patient Outreach [address] [address] Sandra Vieira ANP Care Coordination (CM/CHW outreach) 09/02/[address] [address] Rajni García, TIM Care Management (C3CM- chart review) 09/01/2024 Orders Only [facility] External Provider, [facility] 08/29/2024 11:20 AM EST Office Visit [facility] [address] [place] [phone] Jaxson Roman MD Dysuria (Primary Dx); Suprapubic discomfort; History of hematuria 08/29/2024 Orders Only [facility] External Provider, [facility] 08/26/2024 Refill [facility] [address] [place] [address] Sandra Vieira ANP Primary hypertension 08/16/2024 Refill [facility] [address] [place] [phone] Sandra Vieira ANP Restless legs 08/15/2024 Travel 08/14/2024 Telephone [facility] [address] [place] [phone] Adolfo Fernando, PharmD 08/13/2024 Refill [facility] [address] [place] [phone] Sandra Vieira ANP Type 2 diabetes mellitus with hyperglycemia, with long-term current use of insulin ([facility]) 08/11/2024 Refill [facility] [address] [place] [phone] Sandra Vieira ANP Diabetic polyneuropathy associated with type 2 diabetes mellitus (CMS/[facility]) 08/04/2024 9:40 AM EST Office Visit [facility] [address] [place] [phone] Adolfo Benitez MD Mild persistent asthma with acute exacerbation (Primary Dx); Hypertension, unspecified type; Viral URI 08/04/2024 Telephone [facility] [address] [place] [phone] Sandra Vieira ANP Nurse Triage 08/03/2024 Refill [facility] [address] [place] [address] Sandra Vieira ANP Essential hypertension 08/01/2024 Refill [facility] [address] [place] [phone] Sandra Vieira ANP Diabetic polyneuropathy associated with type 2 diabetes mellitus ([facility]/HCC) 07/28/2024 Telephone [facility] [address] [place] [phone] Erika Rosa MA February recall 07/28/2024 Refill [facility] [address] [facility] [place] [address] Sandra Vieira ANP Essential hypertension 07/25/2024 Telephone [facility] [address] [facility] [place] [address] Sandra Vieira ANP Results 07/24/2024 1:15 PM EST Office Visit [facility] [address] [facility] [place] [address] Sandra Vieira ANP Diabetic polyneuropathy associated with type 2 diabetes mellitus ([facility]/HCC) (Primary Dx); Primary hypertension; Renal stones; Dysuria 07/24/2024 Orders Only [facility] [address] [place] [address] Sandra Vieira ANP 07/24/2024 Travel 07/18/2024 Refill [facility] [place] [address] Sandra Vieira ANP Pain 07/08/2024 Telephone [facility] [place] [address] Sandra Vieira ANP Appointment Request 07/03/2024 Orders Only [facility] External Provider, [facility] 06/30/2024 Telephone [facility] [place] [address] Sandra Vieira ANP Results 06/18/2024 Telephone [facility] [place] [address] Sandra Vieira ANP c/b requested 06/17/2024 Orders Only GENERIC EXTERNAL DATA DEPARTMENT Provider, Generic External Data 06/16/2024 Telephone [facility] [address] [place] [address] TylerSmiley rowe, OD 06/11/2024 Telephone [facility] [address] [place] [address] Sandra Vieira ANP 06/10/2024 Telephone [facility] [address] [place] [address] Erika Rosa MA PA for Ozempic 2mg/3ml 06/09/2024 Telephone [facility] [address] [place] [address] Sandra Vieira ANP from Last 3 Months Immunizations Name Administration [...] Mass Index 30.75 09/08/2024 8:43 AM EST Plan of Treatment Upcoming Encounters Date Type Department Care Team (Late st Contact Info) Description 09/23/2024 11:15 AM EST Office Visit [facility] [address] [place] [phone] Sandra Vieira ANP [address] [place] [address] 10/21/2024 10:00 AM EDT Office Visit [facility] [address] [place] [phone] Shivani Small, CINTHIA [address] [place] [address] Health Maintenance Due Date Last Done Comments [...] 60-74 years 1-dose series) 2023 COVID-19 Vaccine (3 - season) 2024 12/29/2020, 12/01/2020 Influenza Vaccine [...] Alcohol/Substance Use Screening 07/24/2025 07/24/2024 Tobacco Screening 09/08/2025 09/08/2024 Cervical Cancer Screening 05/02/2026 HPV/Cotest 05/02/2026 05/02/2021 [...] 09/08/2024 9:21 AM EST Other microscopic hematuria US ABDOMEN LIMITED Routine 09/03/2024 9: 53 AM EST HIGH SENSITIVITY TROPONIN I Routine 09/01/2024 6:13 [...] SMEAR Routine 06/17/2024 10:30 AM EST POCT GLYCATED HEMOGLOBIN, TOTAL Routine 06/05/2024 3:27 [...] Recently Relevant to Health Maintenance Results * POCT urinalysis dipstick manually resulted (09/08/2024 9:21 AM EST) Only the most recent of2 [...] CARE TEST ENTER /EDIT ORDERABLES Final Result * US Abdomen Limited (09/03/2024 9:53 AM EST) Anatomical Region Laterality Modality Abdomen Ultrasound 09/03/2024 9:53 AM EST Narrative 09/03/2024 9:55 AM EST ? [facility] ?[address] ?[place] [address] ? Ultrasound Report ? Signed ? Patient: Colon,Milsa ?MR#: [id number] ? : 1965 ?Acct:[id number] ? Age/Sex: 59 / F ?ADM Date: /31/25 ? Loc: HO.US ? Attending Dr: Ashlie Maldonado MD ? Ordering Physician: Ashlie Maldonado MD ?? Date of Service: 08/29/24 ?? Procedure(s): US abdomen limited ?? Accession Number(s): [id number] ? cc: Ashlie Maldonado MD; SANDRA VIEIRA [...] in OV> ? 09/03/24 0955 ? DD/ ? TD/TT: 09/03/2453 ? Door Person: ? Procedure Note Dondylan, Image - 09/03/2024 [place] [address] Ultrasound Report Signed Patient: Barrera Max#: [id number] : 1965Acct:[id number] Age/Sex: 59 / FADM Date: 08/29/24 Loc: HO.US Attending Dr: Ashlie Maldonado MD Ordering Physician: Ashlie Maldonado MD Date of Service: 08/29/24 Procedure(s): US abdomen limited Accession Number(s): [id number] cc: Ashlie Maldonado MD; SANDRA VIEIRA NP [...] in OV> 09/03/2455 DD/ 2 TD/TT: 09/03/24952 Door Person: us [facility] External Provider IMG US PROCEDURES Edited Result - Final * (ABNORMAL) High Sensitivity Troponin I (09/01/2024 6:13 PM EST) Only the most recent of2 resultswithin the time period is included. TROPONIN I HIGH SENSITIVITY 142.2(HH) <3.5 - 17.0 ng/L [facility] Comment:Critical value for t est(s): TROP-IHS Results called to manniearnie back by:BOWEN Person calling: KUSF Date:[id number]:1839The [place] high sensitivity Troponin-I results should beused in conjunction with other diagnostic information suchas ECG, clinical observations and information, and patientsymptoms to aid in the diagnosis of [place]. 09/01/2024 6:13 PM EST 09/01/2024 6:17 PM EST Generic External Data Provider LAB BLOOD ORDERAB LES Final Result [facility] [address] [place] [address] [phone] * Urinalysis w/reflex microscopic (09/01/2024 6:13 PM EST) Color Urine Yellow [facility] Appearance Urine Cloudy [facility] PH 7.0 5.0 - 9.0 [facility] Glucose Urine UA Negative Negative mg/dL [facility] Urine Blood Negative Negative [facility] Specific [place] - Urine 1.015 1.005 - 1.025 [facility] Urine Protein Negative Neg-Trace mg/dL [facility] Urine Ketones Negative Negative mg/dL [facility] Nitrite Urine Negative Negative [facility] Leukocyte Esterase Urine Negative Negative [facility] 09/01/2024 6:13 PM EST 09/01/2024 6:17 PM EST Narrative [facility] - 09/01/2024 6:25 PM EST [id number], Clean Catch Generic External Data Provider LAB URINE ORDERAB LES Final Result Performing Organization Address [facility] Phone Number [facility] [address] [place] [phone] * D Dimer High Sensitivity (09/01/2024 3:51 PM EST) D Dimer High Sensitivity <150 NG/ML [facility] Comment:D-DIMER HS REFERENCE RANGENote: Our [...] Performing Organization Address [facility] Number [facility] [address] [place] [phone] * SARS-CoV-2 RNA, Influenza A/B, and RSV RNA, Ql NAAT (09/01/2024 3:51 PM EST) Influenza A PCR NEGATIVE Negative [facility] Influenza B PCR NEGATIVE Negative [facility] Resp Syncy Virus RNA Qual PCR NEGATIVE Negative [facility] SARS COV2 PCR NEGATIVE Negative [facility] Comment:All test results mus t [...] use by authorized laboratories.Testing performed on the [employer] GeneXpert utilizingreal-time RT-PCR.All SARS CoV2 and positive influenza A/B results arereported to [facility]. 09/01/2024 3:51 PM EST 09/01/2024 3:53 PM EST us Generic External Data Provider LAB MICROBIOLOGY - GENERAL ORDERABLES Final Result [facility] [address] [place] [phone] * (ABNORMAL) CBC auto differential (09/01/2024 3:51 PM EST) White Blood Count 4.9 4.8 - 10.8 X10*3/uL [facility] Red Blood Count 4.25 4.20 - 5.50 X10*6/uL [facility] Hemoglobin 12.0 12.0 - 16.0 g/dl [facility] Hematocrit 34.9(L) 37.0 - 47.0 % [facility] Mean Corpuscular Volume 82.1 80.0 - 98.0 fL [facility] Mean Corpuscular Hemoglobin 28.2 27.0 - 33.0 pg [facility] Mean Corpuscular HGB Conc 34.4 31.0 - 35.0 g/dl [facility] Red Cell Distribution Width 12.6 11.0 - 16.0 % [facility] Platelet Count 110(L) 160 - 400 X10*3/uL [facility] Mean Platelet Volume 10.3 9.4 - 12.3 fL [facility] Neutrophils Percent Auto 61.2 45 - 73 % [facility] Imm Gran Pct Auto 0.2 0.0 - 0.4 % [facility] Lymphocytes Percent Auto 26.4 20 - 40 % [facility] Monocytes Percent Auto 11.0 2 - 11 % [facility] Eosinophils Percent Auto 1.0 0 - 4 % [facility] Basophils Percent Auto 0.2 0 - 2 % [facility] NRBC Pct Auto 0.0 0.0 - 0.2 /100WBC [facility] Neutrophils Absolute Auto 3.0 2.0 - 8.3 x10*3/uL [facility] Imm Gran Abs Auto 0.01 0.00 - 0.03 X10*3/uL [facility] Lymphocytes Absolute Auto 1.3 1.2 - 4.9 X10*3/uL [facility] Monocytes Absolute Auto 0.5 0.1 - 1.2 X10*3/uL [facility] Eosinophils Absolute Auto 0.1 0.0 - 0.4 X10*3/uL [facility] Basophils Absolute Auto 0.0 0.0 - 0.2 X10*3/uL [facility] NRBC Abs Auto 0.000 0.0 - 0.012 X10*3/uL [facility] 09/01/2024 3:51 PM EST 09/01/2024 3:53 PM EST us Generic External Data Provider LAB BLOOD ORDERAB LES Final Result Performing Organization Address City/State/[facility] Co de Phone Number [facility] [address] [place] [phone] * Prothrombin Time-INR (09/01/2024 3:51 PM EST) Prothrombin Time 11.5 10.9 - 12.4 SEC [facility] INTERNATIONAL NORM RATIO 1.0 0.9 - 1.1 [facility] Comment:INTERNATIONAL NORMAL IZED RATIO [...] ORDERAB LES Final Result Performing Organization Address [facility]/ZIP Co de Phone Number [facility] [address] [place] [phone] * (ABNORMAL) B Type Natriuretic Peptide (BNP) (09/01/2024 3:51 PM EST) Pathologist [facility] B Type Natriuretic Peptide 104(H) <100 pg/mL [facility] Comment:For those patients w ho are being treated with Natrecor(nesiritide, recombinant BNP), BNP testing should beperformed at least two hours post treatment in order toensure that only endogenous levels of BNP are detected. 09/01/2024 3:51 PM EST 09/01/2024 3:53 PM EST us Generic External Data Provider LAB BLOOD ORDERAB LES Final Result Performing Organization Address [facility] Phone Number [facility] [address] [place] [phone] * Magnesium (09/01/2024 3:51 PM EST) Pathologist [facility] Magnesium 2.1 1.6 - 2.6 mg/dL [facility] 09/01/2024 3:51 PM EST 09/01/2024 3:53 PM EST Generic External Data Provider LAB BLOOD ORDERAB LES Final Result Performing Organization Address [facility] Co de Phone Number [facility] [address] [place] [phone] * Lipase (09/01/2024 3:51 PM EST) Lipase 13 8 - 78 U/L [facility] 09/01/2024 3:51 PM EST 09/01/2024 3:53 PM EST us Generic External Data Provider LAB BLOOD ORDERAB LES Final Result Performing Organization Address [facility]/ZIP Co de Phone Number [facility] [address] [place] [phone] * (ABNORMAL) Hepatic Function Panel (09/01/2024 3:51 PM EST) Bilirubin, Total 0.4 0.0 - 1.0 mg/dL [facility] Bilirubin, Direct 0.1 0.0 - 0.5 mg/dL [facility] Aspartate Amino Transferase 54(H) 5 - 31 U/L [facility] Alanine Aminotransferase 65(H) 0 - 31 U/L [facility] Total Protein 7.7 6.5 - 8.0 g/dL [facility] Albumin Level 3.8 3.5 - 5.0 g/dL [facility] Alkaline Phosphatase 159(H) 39 - 117 U/L [facility] 09/01/2024 3:51 PM EST 09/01/2024 3:53 PM EST us Generic External Data Provider LAB BLOOD ORDERAB LES Final Result Performing Organization Address [facility]/ZIP Co de Phone Number [facility] [address] [place] [phone] * (ABNORMAL) Basic Metabolic Panel (09/01/2024 3:51 PM EST) Sodium 141 135 - 145 mmol/L [facility] Potassium 3.9 3.3 - 5.1 mmol/L [facility] Chloride 110(H) 96 - 108 mmol/L [facility] Carbon Dioxide 26 22 - 29 mmol/L [facility] Anion Gap 9(L) 12 - 20 [facility] Urea Nitrogen (BUN) 12 9 - 16 mg/dL [facility] Creatinine, Serum 0.93 0.5 - 1.4 mg/dL [facility] Creatinine Clr Calc Pharmacy 63.0 [facility] Comment:Provided height and weight: 160.02 cm,78.6 kg.eGFR (calculated from the MDRD study equation) and eCrCl(calculated from the Cockcroft-Gault equation) are based ondifferent parameters and may not yield comparable results.If eCrCl result is absurd, please check patient'sheight/weight. Estimated Glomerular Filt Rate >60 [facility] Comment:Chronic Kidney Disea se: Estimated GFR < 60 mL/min/1.03l2Kqguie Kidney Disease: Estimated GFR < 15 mL/min/1.73m2 Glucose 112 60 - 115 mg/dL [facility] Calcium 9.5 8.4 - 10.2 mg/dL [facility] 09/01/2024 3:51 PM EST 09/01/2024 3:53 PM EST us Generic External Data Provider LAB BLOOD ORDERAB LES Final Result [facility] [address] [place] [phone] * XR Chest 2 Views (09/01/2024 1:48 PM EST) Anatomical Region Laterality Modality Chest Radiographic Nina ging 09/01/2024 1:48 PM EST Narrative 09/01/2024 2:23 PM EST ? [facility] ?[address] ?[place] [address] ?XRay Report ? Signed ? Patient: Colon,Milsa ?MR#: [id number] ? : 1965 ?Acct:[id number] ? Age/Sex: 59 / F ?ADM Date: 02/03/25 ? Loc: HO.ED ? Attending Dr: ? Ordering Physician: Angela Reyes ?? Date of Service: 09/01/24 ?? Procedure(s): XR chest 2V ?? Accession Number(s): [id number] ? cc: Angela Reyes; SANDRA VIEIRA NP [...] DD/ 1348 ? TD/TT: 09/01/24 1410 ? Door Person: ? Procedure Note Concepción Ndiaye - 09/01/2024 [place] [address] XRay Report Signed Patient: Barrera Max#: [id number] : 1965Acct:[id number] Age/Sex: 59 / FADM Date: 09/01/24 Loc: HO.ED Attending Dr: Ordering Physician: Angela Reyes Date of Service: 09/01/24 Procedure(s): XR chest 2V Accession Number(s): [id number] cc: Angela Reyes; SANDRA VIEIRA NP EXAMINATION: [...] 09/01/24 1420 DD/ 1348 TD/TT: 09/01/24 1410 Door Person: [facility] External Provider IMG XR PROCEDURES Final Result * Influenza B (ID NOW Rapid Molecular) (08/04/2024 9:46 AM EST) Influenza B Negative Negative, Indeterminate [facility] Swab 08/04/2024 9:46 AM EST Adolfo Benitez MD POINT OF CARE TEST ENTER/EDIT OR DERABLES Final Result Performing Organization Address [facility] Co de Phone Number [facility] [address] [place] [phone] * Influenza A (ID NOW Rapid Molecular) (08/04/2024 9:46 AM EST) Influenza A Negative Negative, Indeterminate [facility] Swab 08/04/2024 9:46 AM EST Adolfo Benitez MD POINT OF CARE TEST ENTER/EDIT OR DERABLES Final Result Performing Organization Address [facility]/ZIP Co de Phone Number [facility] [address] [place] [phone] * POCT Rapid COVID Ag (08/04/2024 9:46 AM EST) Rapid COVID Ag Negative [facility] Swab 08/04/2024 9:46 AM EST Adolfo Benitez MD POINT OF CARE TEST ENTER/EDIT OR DERABLES Final Result [facility] [address] [place] [phone] * Culture, Urine, Routine (07/24/2024 9:51 PM EST) Urine Urine specimen obtained by clean catch procedure / Unknown 07/24/2024 9:51 PM EST 07/24/2024 9:51 PM EST Comment:UACC Narrative [facility] - 07/26/2024 11:19 AM EST Urine Culture Report Result Urine Culture > 100,000 cfu/ml Urine Culture Mixed bacterial nova characteristic of Urine Culture urogenital contamination. Specimen Source: Urine clean catch Sandra Vieira [facility] MICROBIOLOGY - GENERAL ORDER RAY Final Result Performing Organization Address City/[facility]/ZIP Co de Phone Number [facility] [address] [place] [phone] * (ABNORMAL) Urinalysis, Complete, with Reflex to Culture (07/24/2024 2:48 PM EST) Color Urine Dark Yellow [facility] Appearance Urine Cloudy [facility] PH 5.5 5.0 - 9.0 [facility] Glucose Urine UA 100(A) Negative mg/dL [facility] Urine Blood Negative Negative [facility] Specific [place] - Urine 1.025 1.005 - 1.025 [facility] Urine Protein Trace Neg-Trace mg/dL [facility] Urine Ketones Trace Negative mg/dL [facility] Nitrite Urine Negative Negative [facility] Leukocyte Esterase Urine Small (1+)(A) Negative [facility] RBC Urine 0-2 0 - 2 /HPF [facility] Urine WBC 11-20(A) 0 - 5 /HPF [facility] Urine Squamous Epithelial Cell >20 0 - 2 /HPF [facility] CALCIUM OXALATE CRYSTAL, UR Present [facility] Urine Bacteria 4+ None Seen [facility] Hyaline Casts, Urine 3-5 0 - 2 /LPF [facility] Urine 07/24/2024 2:48 PM EST 07/24/2024 6:01 PM EST Narrative [facility] - 07/24/2024 6:55 PM EST Urine, Clean Catch us Sandra [facility] URINE ORDERABLES Final Resul t [facility] [address] [place] [address] [phone] * BI Mammogram Screening Tomosynthesis Bilateral (07/03/2024 9:53 AM EST) Anatomical Region Laterality Modality Breast Bilateral Mammography 07/03/2024 9:53 AM EST Narrative 07/09/2024 10:57 AM EST ? [facility] ? [address] ?[place] [address] ? Mammography Report ? Signed ? Patient: Colon,Milsa ?MR#: [id number] ? : 1965 ?Acct:[id number] ? Age/Sex: 59 / F ?ADM Date: 12/05/24 ? Loc: HO.MAMMO ? Attending Dr: Herminio Britton MD ? Ordering Physician: Herminio Britton MD ?Results: 1Negativ ?? e ? Date of Service: 07/03/24 ?Follow Up: 1 Year From Orig ?? inal Mammogram ? Procedure(s): MM tomosynthesis screening BI ?? Accession Number(s): [id number] ? cc: SANDRA VIEIRA NP; Herminio Britton [...] DD/ 0953 ? TD/TT: 07/03/24 1018 ? Door Person: ? Procedure Note Zelda, Image - 07/09/2024 [facility] [address] [place], [place] [address] Mammography Report Signed Patient: Barrera Max#: [id number] : 1965Acct:[id number] Age/Sex: 59 / FADM Date: 07/03/24 Loc: HO.MAMMO Attending Dr: Herminio Britton MD Ordering Physician: Herminio Britton MDResults: 1Negativ e Date of Service: 07/03/24Follow Up: 1 Year From Orig inal Mammogram Procedure(s): MM tomosynthesis screening BI Accession Number(s): [id number] cc: SANDRA VIEIRA STATUARY PAINTER; Herminio Britton MD EXAMINATION: MM SCREENING DIGITAL [...] 07/09/24 1054 DD/ 0953 TD/TT: 07/03/24 1018 Door Person: [facility] External Provider IMG BI PROCEDURES Edited Result - Final * Pap Smear (06/17/2024 10:30 AM EST) 06/17/2024 10:3 0 AM EST 06/18/2024 9:15 AM EST Narrative [facility] - 06/20/2024 9:28 AM EST ----- ------- Name: Colon,Milsa ?Age/Sex: 59/F ? : 1965 Unit#: [id number] ?? Attend Dr: Herminio Britton MD ?Re06/17/24 ?Status: DEP REF ? Location: HO.LNP ?Disch: ? ----- ------- SPEC : [id number] ?RECD: 06/18/24-914 ? STATUS: ??SOUT ? REQ NUM: [id number] ? MILY: 06/17/24-1030 ? SUBM DR: Herminio [...] Copies To: ?? SANDRA VIEIRA NP ?? [facility] ?? [address] ?? [place] [address] ?? [phone] ?? Herminio Britton MD ?? [facility] ?? [address] ?? [place] [address] ?? [phone] ----- ------- Signed (signature on file) AVELINO Romero (ASCP) 06/20/24 0928 ? ----- ------- ? END OF REPORT ? Generic External Data Provider LAB CYTOLOGY ORDE RABLES Final Result [facility] [address] [place] [phone] * (ABNORMAL) POCT HGB A1C (06/05/2024 3:27 PM EST) Pathologist [facility] Hemoglobin A1C 7.6(A) 4.0 - 6.0 % QC Media Lot # [id number] Lot# Expiration Date Blood 06/05/2024 3:27 PM EST [facility] POINT OF CARE TEST ENTER/EDIT OR DERABLES Final Result * HIV-1/2 Antigen and Antibodies, Fourth Generation, with Reflexes (03/24/2024 3:20 PM EDT) Pathologist [facility] HIV AB/AG Nonreactive Nonreactive [facility] Comment:HIV-1 p24 Ag and/or HIV-1/HIV-2 Ab not detected.A test result that is nonreactive does not exclude thepossibility of exposure to or infection with HIV-1 and/orHIV-2. Nonreactive results in this assay for individualswith prior exposure to HIV-1 and/or HIV-2 may be due toantigen and antibody levels that are below the limit ofdetection of this assay.The Smart [email or web address] HIV Ag/Ab Combo assay result andsupplemental assay results should be interpreted inconjunction with the patient's clinical presentation,history and other laboratory results. If the results areinconsistent with clinical evidence, additional testing issuggested to confirm the result. 03/24/2024 3:20 PM EDT 03/24/2024 3:20 PM EDT Generic External Data Provider LAB BLOOD ORDERAB LES Final Result Performing Organization Address [facility] Co de Phone Number [facility] [address] [place] [phone] * (ABNORMAL) Albumin, Random Urine W/Creatinine (05/01/2023 11:30 AM EDT) Creatinine, Urine 302.38 mg/dL [facility] Microalbumin Urine 107.0 mg/L H [facility] Microalbum Creatinine Ratio Ur 35.3(H) <30 ug/mg cr [facility] Comment:Albumin/Creatinine R atio Reference Ranges: Normal: < 30 ug/mg creatinine Microalbuminuria: 30 - 300 ug/mg creatinineClinical Albuminuria: > 300 ug/mg creatinine Urine (Urine, Random) 05/01/2023 11:30 AM EDT 05/01/2023 1:17 PM EDT us [facility] ANP LAB URINE ORDERABLES Final Resul t Performing Organization Address [facility] Co de Phone Number [facility] [address] [place] [phone] * (ABNORMAL) Lipid Panel, Standard (05/01/2023 11:30 AM EDT) Triglycerides 189(H) <150 mg/dL [facility] Comment:Desirable Triglyceri de: less than 150 mg/dLBorderline High Triglyceride 150-199 mg/dLHigh Triglyceride: 200-499 mg/dLVery High Triglyceride: greater than or equal to 5OO mg/dL Cholesterol 188 <200 mg/dL [facility] Comment:Desirable Cholestero l: less than 200 mg/dLBorderline High Cholesterol: 200-239 mg/dLHigh Cholesterol: greater than 239 mg/dL LDL Cholesterol Calculated 98 <100 mg/dL [facility] Comment:Desirable LDL: less than 100 mg/dLNear Optimal/Above Optimal LDL: 110- 129 mg/dLBorderline High LDL: 130-159 mg/dLHigh LDL: 160-189 mg/dLVery High LDL: greater than or equal to 190 mg/dL HDL Cholesterol 53 >40 mg/dL [facility] Comment:Desirable HDL: great er than 40 mg/dL Note: This HDL assay may give artificially low results in patients with liver disease. Blood Venous blood specimen / Unknown 05/01/2023 11:30 AM EDT 05/01/2023 1:23 PM EDT Sandra Vieira ANP LAB BLOOD ORDERABLES Final Resul t [facility] [address] [place] [address] [phone] * HPV mRNA E6/E7 (05/02/2021 12:00 AM EDT) HPV nRNA E6/E7 Not Detected Not Detected [facility] Comment: Methodology: Floor Renovator-Mediated Amplification This assay detects E6/E7 viral messenger RNA (mRNA) from 14 high-risk HPV types (16,18,31,33,35,39,45,51,52,56,58,59,66,68). ? The analytical performance characteristics of this assay have been determined by [employer]. The modifications have not been cleared or approved by the FDA. This assay has been validated pursuant to the CLIA regulations and is used for clinical purposes. ?? For additional information, please refer to http://education.[employer] / TLL[employer]/faq/LYH744t2 (This link if provided for information/ educational purposes only.) 05/02/2021 Sandra Vieira ANP LAB BLOOD ORDERABLES Final Resul t Performing Organization Address City/[facility]/ZIP Co de Phone Number [facility] [address] from Last 3 Months or Most Recently Relevant to Health Maintenance Insurance [facility] C3 Care Teams Industrial Boilermaker Relationship Specialty Start Date End Date Sandra Vieira ANP [address] [place] [address] PCP - General Family Medicine 09/03/20
== END 2024-09-08 13:29 | disposition home or self-care (01) ==
LOC: HO.HHCLNP 13:28
PROVIDERS: Visit Provider Internal Medicine
DX: R31.29 Other microscopic hematuria (principal)
CPT/HCPCS: 87086

== ENCOUNTER 2024-09-23 12:46 | Outpatient (REF) | payer MEDICAID, SELFPAY ==
--- NOTE | ~2024-09-23 | XR_ITS ---
EXAMINATION: XR CERVICAL SPINE CLINICAL INFORMATION: neck pain radiating to shoulders/arms COMPARISON: None available. TECHNIQUE: 6 views of the cervical spine, inclusive of flexion and extension views, were obtained. FINDINGS: No significant scoliosis. Normal lordosis. Normal sagittal alignment. No subluxations. No fracture, compression deformities, or suspicious bone lesions. Craniocervical junction and C1-2 articulation intact and aligned. Mild degenerative disc change C3-C7, without significant loss of disc height. Normal facet alignment. No significant facet arthrosis. Oblique views demonstrate no significant bony neural foraminal narrowing bilaterally. Prevertebral soft tissues are normal. There are bilateral mild carotid bulb calcifications. Imaged lung apices clear. XR/XR cervical spine 4V IMPRESSION: 1. No acute finding of the cervical spine. 2. Mild multilevel disc degeneration. Electronically signed by: Mundo England MD 09/23/2024 02:02 PM DOTTIE GUSTAFSON
--- NOTE | ~2024-09-23 | XR_ITS ---
EXAMINATION: XR SHOULDER, LEFT CLINICAL INFORMATION: r/o AVN, question of AVN on XR from ED 09/03/24 COMPARISON: Chest x-ray dated 09/01/2024 TECHNIQUE: AP external rotation, Grashey, scapular Y, and axillary views of the left shoulder. FINDINGS: Normal bone mineralization. No fracture, dislocation, or suspicious bone lesion. Normal alignment. The glenohumeral joint is normal. No evidence of AVN. The AC joint is normal. Mild spurring of the greater tuberosity. There is a neutral lateral acromion. No undersurface spurring. The subacromial space is preserved. Remainder of the soft tissue and bony structures appear normal. XR/XR shoulder LT min 2V IMPRESSION: Essentially normal left shoulder. No evidence of AVN. Electronically signed by: Mundo England MD 09/23/2024 01:57 PM DOTTIE
--- NOTE | ~2024-09-23 | XR_ITS ---
EXAMINATION: XR SHOULDER, RIGHT CLINICAL INFORMATION: r/o AVN, question of AVN on XR from ED 09/03/24 COMPARISON: 09/01/24 chest x-ray. TECHNIQUE: AP external rotation, Grashey, scapular Y, and axillary views of the right shoulder. FINDINGS: Normal bone mineralization. No fracture, dislocation, or suspicious bone lesion. Normal alignment. The glenohumeral joint is normal. No evidence of AVN. The AC joint is normal. Mild spurring of the greater tuberosity. There is a neutral lateral acromion. No undersurface spurring. The subacromial space is preserved. Remainder of the soft tissue and bony structures appear normal. XR/XR shoulder RT min 2V IMPRESSION: Essentially normal right shoulder. No evidence of AVN. Electronically signed by: Mundo England MD 09/23/2024 01:55 PM EST
--- OUTSIDE RECORDS SUMMARY | 2024-09-23 15:29 | XMS_ITS | Encounter Summary ---
Author Organization [employer] Address [address] [facility] [address] [place] [address] Care Team Providers Care Casting Trucker Name Role Phone Wanda Bonilla Primary Care Provider [phone] Rajni García RN Unavailable [phone] Encounter Details Date Type Department Care Team (Latest Contact Info) Description 09/23/2024 Travel Social History Tobacco Use Types Packs/Day [...] housing situation today? I have dhaval lozada 09/23/[address] you li ve. Do you have problems with any of the following? Not on file 09/23/2024 Food Insecurity Answer Date Recorded Within the past 12 months, y ou worried that your food would run out before you got money to buy more: Sometimes True 2024 Within the past 12 months,th e food you bought just didn't last and you didn't have enough money to get more: Sometimes True 09/23/2024 Transportation Answer Date Recorded In the past [...] Recorded Patient Health Questionnaire-2 Score 2 11/23/2023 Internet Access Answer Date Recorded Internet Access Q1 Yes 09/23/2024 Internet Access Q2 Not on file 09/23/2024 Comments No Sex and Gender Information Value Date Recorded Sex Assigned at Female 05/29/2022 10:15 AM EDT Legal Sex Female 10:15 AM EDT Gender Identity Female 05/29/2022 10:15 AM EDT Sexual Orientation Straight 05/29/2022 10 :15 AM EDT documented as of this encounter Plan of Treatment Upcoming Encounters Date Type Department Care Team (Late st Contact Info) Description 10/21/2024 10:00 AM EDT Office Visit [facility] [address] [place] [address] Shivani Small CNM [address] [place] [address] 12/08/2024 1:00 PM EDT Office Visit [facility] OPTOMETRY [address] [place] [address] Tyler, Smiley, OD [address] [place] [address] documented as of this encounter Visit Diagnoses Not on filedocumented in this encounter Additional Health Concerns Assessment Noted Time PHQ-9 Depression Total Score: 5 11/23/19 24 1:33 PM EDT documented as of this encounter Care Teams Casting Trucker Relationship Specialty Start Date End Date Wanda Bonilla ANP [address] [place] [address] PCP - General Family Medicine 09/03/20 Rajni García, TIM [address] [place] [phone] Director Of Vocational GuidancePlaster Caster 09/18/24 documented as of this encounter
--- OUTSIDE RECORDS SUMMARY | 2024-09-23 15:29 | XMS_ITS | Encounter Summary ---
Author Organization [employer] Address [address] [facility] [address] [place] [address] Care Team Providers Care Medical Resident Name Role Phone Wanda Bonilla Primary Care Provider [phone] Reason for Visit * Reason Comments Care Coordination CM/CHW appt reminder Encounter Details Date Type Department Care Team (Latest Contact Info) Description 09/17/2024 Patient Outreach [facility] [address] [place] [address] Wanda Bonilla ANP [address] [place] [address] Care Coordination (CM/CHW appt reminder) Social History Tobacco Use Types Packs/Day Years [...] encounter Progress Notes * La Haddad - 09/17/2024 11:14 AM EST CHW [place]ad placed outbound call to patient introducing herself from [facility] CM Department, in regard to remind patient of Adult Complex Care program initial assessment appt for tomorrow 09/18/24 @ 1PM via telephone with CM Rajni García RN. Patient's name and was confirmed. Patient is aware and confirmed will be available for call and has no barriers on attending call. Patient verbalized understanding and agreed with plan. documented in this encounter Plan of Treatment Upcoming Encounters Date Type Department Care Team (Late st Contact Info) Description 10/21/2024 10:00 AM EDT Office Visit [facility] [address] [place] [address] Shivani Small CNM [address] [place] [address] 12/08/2024 1:00 PM EDT Office Visit [facility] OPTOMETRY [address] [place] [address] Smiley Scott, OD [address] [place] [address] documented as of this encounter Visit Diagnoses Not on filedocumented in this encounter Additional Health Concerns Assessment Noted Time PHQ-9 Depression Total Score: 5 04/26/20 24 1:33 PM EDT documented as of this encounter Care Teams Medical Resident Relationship Specialty Start Date End Date Wanda Bonilla ANP [address] [place] [address] PCP - General Family Medicine 09/03/20 documented as of this encounter
--- OUTSIDE RECORDS SUMMARY | 2024-09-23 15:29 | XMS_ITS | Encounter Summary ---
Author Organization [email or web address] Address [address] [facility] 7t [place] [address] Care Team Providers Care Nut Sorter Name Role Phone Sandra Vieira Primary Care Provider [phone] Rajni García RN Unavailable [phone] Reason for Visit * Reason Comments Follow-up Encounter Details Date Type Department Care Team (Latest Contact Info) Description 09/23/2024 11:15 AM EST Office Visit [facility] MEDICINE [address] [place] [address] Sandra Vieira ANP [address] [place] [address] Chronic pain of both shoulders (Primary Dx); Type 2 diabetes mellitus with hyperlipidemia (CMS/HCC) (CMS/HCC); Neck pain; Nonintractable episodic headache, unspecified headache type Social History Tobacco Use Types Packs/Day Years [...] the past 12 months, has t he [employer] gas, oil or water company threatened to [...] Sign Reading Time Taken Comments Blood Pressure 108/67 09/23/2024 11:53 AM EST Pulse 63 09/23/2024 11:53 AM EST Temperature 36.3 ??C (97.4 ??F) 09/23/2024 11:[address] Respiratory Rate 14 09/23/2024 11:53 AM EST Oxygen Saturation 97% 09/23/2024 11:53 AM EST Inhaled Oxygen Concentration - - Weight 78.9 kg (174 lb) 09/23/2024 11:53 AM EST Height - - Body Mass Index 30.82 09/08/2024 8:43 AM EST documented in this encounter Miscellaneous Notes * Result Encounter Note - TAHIR Garcia - 09/23/2024 11:15 AM EST Please let Tank know that her XR of her shoulders and her neck looks good - mild arthritis but no concerning findings. Would recommend PT or possibly ortho eval for her shoulders if she would like. Sandra Bentley documented in this encounter Plan of Treatment Upcoming Encounters Date Type Department Care Team (Late st Contact Info) Description 10/21/2024 10:00 AM EDT Office Visit [facility] [address] [place] [address] Shivani Small, CNM [address] [place] [address] 12/08/2024 1:00 PM EDT Office Visit [facility] OPTOMETRY [address] [place] [address] Tyler, Smiley, OD [address] [place] [address] documented as of this encounter Procedures Procedure Name Priority Date/Time Associated Diagnosis Comments XR CERVICAL SPINE 4V Routine 09/23/2024 12:46 PM EST Neck pain XR SHOULDER 2+ VIEWS RIGHT Routine 09/23/2024 12:46 PM EST Chronic pain of both shoulders XR SHOULDER 2+ VIEWS LEFT Routine 09/23/2024 12:46 PM EST Chronic pain of both shoulders POCT GLYCATED HEMOGLOBIN, TOTAL Routine 09/23/2024 11:59 AM EST Type 2 diabetes mellitus with hyperlipidemia (CMS/HCC) (CMS/HCC) POCT GLUCOSE Routine 09/23/2024 11:54 AM EST Type 2 diabetes mellitus with hyperlipidemia (CMS/HCC) (CMS/HCC) documented in this encounter Results * XR CERVICAL SPINE 4V (09/23/2024 12:46 PM EST) Anatomical Region Laterality Modality Abdomen Radiographic Nina ging 09/23/2024 12:4 6 PM EST Narrative 09/23/2024 2:05 PM EST ?[facility] ?[address] ?[place] [address] ?XRay Report ? Signed ? Patient: Colon,Milsa ?MR#: [id number] ? : 1965 ?Acct:[id number] ? Age/Sex: 59 / F ?ADM Date: 09/23/24 ? Loc: HO.HHCX ? Attending Dr: Sandra Vieira FIRST GRADE TEACHER ? Ordering Physician: SANDRA VIEIRA NP ?? Date of Service: 09/23/24 ?? Procedure(s): XR cervical spine 4V ?? Accession Number(s): [id number] ? cc: SANDRA VIEIRA NP ? EXAMINATION: ?? XR CERVICAL SPINE ? CLINICAL INFORMATION: ?? neck pain radiating to shoulders/arms ? COMPARISON: ?? None available. ? TECHNIQUE: ?? 6 views of the cervical spine, inclusive of flexion and extension ?? views, were obtained. ? FINDINGS: ?? No significant scoliosis. Normal lordosis. ?? Normal sagittal alignment. No subluxations. ?? No fracture, compression deformities, or suspicious bone lesions. ?? Craniocervical junction and C1-2 articulation intact and aligned. ? Mild degenerative disc change C3-C7, without significant loss of disc ?? height. ?? Normal facet alignment. No significant facet arthrosis. ? Oblique views demonstrate no significant bony neural foraminal ?? narrowing bilaterally. ? Prevertebral soft tissues are normal. There are bilateral mild carotid ?? bulb calcifications. Imaged lung apices clear. ? XR/XR cervical spine 4V ?? IMPRESSION: ?? 1. No acute finding of the cervical spine. ?? 2. Mild multilevel disc degeneration. ? Electronically signed by: ??Mundo England MD ??09/23/2024 02:02 PM EST RP ? Dictated By: ?Mundo England MD ? Signed By: ?<Electronically signed by Mundo England MD in OV> ?09/23/24 1402 ? DD/ 1246 ? TD/TT: 09/23/24 1300 ? Account Resolution Analyst: ? Procedure Note Zelda, Concepción - 09/23/[address] [address] XRay Report Signed Patient: Barrera Max#: [id number] : 1965Acct:[id number] Age/Sex: 59 / FADM Date: 09/23/24 [facility] Dr: Sandra Vieira FIRST GRADE TEACHER Ordering Physician: SANDRA VIEIRA NP Date of Service: 09/23/24 Procedure(s): XR cervical spine 4V Accession Number(s): [id number] cc: SANDRA VIEIRA NP EXAMINATION: XR CERVICAL SPINE CLINICAL INFORMATION: neck pain radiating to shoulders/arms COMPARISON: None available. TECHNIQUE: 6 views of the cervical spine, inclusive of flexion and extension views, were obtained. FINDINGS: No significant scoliosis. Normal lordosis. Normal sagittal alignment. No subluxations. No fracture, compression deformities, or suspicious bone lesions. Craniocervical junction and C1-2 articulation intact and aligned. Mild degenerative disc change C3-C7, without significant loss of disc height. Normal facet alignment. No significant facet arthrosis. Oblique views demonstrate no significant bony neural foraminal narrowing bilaterally. Prevertebral soft tissues are normal. There are bilateral mild carotid bulb calcifications. Imaged lung apices clear. XR/XR cervical spine 4V IMPRESSION: 1. No acute finding of the cervical spine. 2. Mild multilevel disc degeneration. Electronically signed by: Mundo England MD 09/23/2024 02:02 PM EST Dictated By: Mundo England MD Signed By: <Electronically signed by Mundo England MD in OV> 09/23/24 1402 DD/ 1246 TD/TT: 09/23/24 1300 Account Resolution Analyst: Sandra Vieira ANP IMG XR PROCEDURES Final Result * XR Shoulder 2+ Views Left (09/23/2024 12:46 PM EST) Anatomical Region Laterality Modality Upper Extremities, Shoulder Left Radi ographic Imaging 09/23/2024 12:4 6 PM EST Narrative 09/23/2024 2:00 PM EST ?[facility] ?[address] ?[place] [address] ?XRay Report ? Signed ? Patient: Colon,Milsa ?MR#: [id number] ? : 1965 ?Acct:[id number] ? Age/Sex: 59 / F ?ADM Date: 02/25/25 ? Loc: HO.HHCX ? Attending Dr: Sandra Vieira FIRST GRADE TEACHER ? Ordering Physician: SANDRA VIEIRA NP ?? Date of Service: 09/23/24 ?? Procedure(s): XR shoulder LT min 2V ?? Accession Number(s): [id number] ? cc: SANDRA VIEIRA NP ? EXAMINATION: ?? XR SHOULDER, LEFT ? CLINICAL INFORMATION: ?? r/o AVN, question of AVN on XR from ED 09/03/24 ? COMPARISON: ?? Chest x-ray dated 09/01/2024 ? TECHNIQUE: ?? AP external rotation, Grashey, scapular Y, and axillary views of the ?? left shoulder. ? FINDINGS: ?? Normal bone mineralization. No fracture, dislocation, or suspicious ?? bone lesion. Normal alignment. ?? The glenohumeral joint is normal. No evidence of AVN. ?? The AC joint is normal. ?? Mild spurring of the greater tuberosity. ?? There is a neutral lateral acromion. No undersurface spurring. ?? The subacromial space is preserved. ? Remainder of the soft tissue and bony structures appear normal. ? XR/XR shoulder LT min 2V ?? IMPRESSION: ?? Essentially normal left shoulder. No evidence of AVN. ? Electronically signed by: ??Mundo England MD ??09/23/2024 01:57 PM EST RP ? Dictated By: ?Mundo England MD ? Signed By: ?<Electronically signed by Mundo England MD in OV> ?09/23/24 1357 ? DD/ 1246 ? TD/TT: 09/23/24 1300 ? Account Resolution Analyst: ? Procedure Note Concepción Ndiaye - 09/23/2024 [facility] [address] [place] [address] XRay Report Signed Patient: Barrera Max#: [id number] : 1965Acct:[id number] Age/Sex: 59 / FADM Date: 09/23/24 Loc: HO.HHCX Attending Dr: Sandra Vieira FIRST GRADE TEACHER Ordering Physician: SANDRA VIEIRA NP Date of Service: 09/23/24 Procedure(s): XR shoulder LT min 2V Accession Number(s): [id number] cc: SANDRA VIEIRA FIRST GRADE TEACHER EXAMINATION: XR SHOULDER, LEFT CLINICAL INFORMATION: r/o AVN, question of AVN on XR from ED 09/03/24 COMPARISON: Chest x-ray dated 09/01/2024 TECHNIQUE: AP external rotation, Grashey, scapular Y, and axillary views of the left shoulder. FINDINGS: Normal bone mineralization. No fracture, dislocation, or suspicious bone lesion. Normal alignment. The glenohumeral joint is normal. No evidence of AVN. The AC joint is normal. Mild spurring of the greater tuberosity. There is a neutral lateral acromion. No undersurface spurring. The subacromial space is preserved. Remainder of the soft tissue and bony structures appear normal. XR/XR shoulder LT min 2V IMPRESSION: Essentially normal left shoulder. No evidence of AVN. Electronically signed by: Mundo England MD 09/23/2024 01:57 PM EST RP Dictated By: Mundo England MD Signed By: <Electronically signed by Mundo England MD in OV> 09/23/24 1357 DD/ 1246 TD/TT: 09/23/24 1300 Account Resolution Analyst: Sandra Vieira ANP IMG XR PROCEDURES Final Result * XR Shoulder 2+ Views Right (09/23/2024 12:46 PM EST) Anatomical Region Laterality Modality Upper Extremities, Shoulder Right Radi ographic Imaging 09/23/2024 12:4 6 PM EST Narrative 09/23/2024 1:58 PM EST ?[facility] ?[address] ?[place] [address] ?XRay Report ? Signed ? Patient: Colon,Milsa ?MR#: [id number] ? : 1965 ?Acct:[id number] ? Age/Sex: 59 / F ?ADM Date: 02/25/25 ? Loc: HO.HHCX ? Attending Dr: Sandra Vieira FIRST GRADE TEACHER ? Ordering Physician: SANDRA VIEIRA NP ?? Date of Service: 09/23/24 ?? Procedure(s): XR shoulder RT min 2V ?? Accession Number(s): [id number] ? cc: SANDRA VIEIRA NP ? EXAMINATION: ?? XR SHOULDER, RIGHT ? CLINICAL INFORMATION: ?? r/o AVN, question of AVN on XR from ED 09/03/24 ? COMPARISON: ?? 09/01/24 chest x-ray. ? TECHNIQUE: ?? AP external rotation, Grashey, scapular Y, and axillary views of the ?? right shoulder. ? FINDINGS: ?? Normal bone mineralization. No fracture, dislocation, or suspicious ?? bone lesion. Normal alignment. ?? The glenohumeral joint is normal. No evidence of AVN. ?? The AC joint is normal. ?? Mild spurring of the greater tuberosity. ?? There is a neutral lateral acromion. No undersurface spurring. ?? The subacromial space is preserved. ? Remainder of the soft tissue and bony structures appear normal. ? XR/XR shoulder RT min 2V ?? IMPRESSION: ?? Essentially normal right shoulder. No evidence of AVN. ? Electronically signed by: ??Mundo England MD ??09/23/2024 01:55 PM EST RP ? Dictated By: ?Mundo England MD ? Signed By: ?<Electronically signed by Mundo England MD in OV> ?09/23/24 1355 ? DD/ 1246 ? TD/TT: 09/23/24 1300 ? Account Resolution Analyst: ? Procedure Note Donwilliamter, Image - 09/23/[address] [address] XRay Report Signed Patient: Barrera Max#: [id number] : 1965Acct:[id number] Age/Sex: 59 / FADM Date: 09/23/24 Loc: HO.HHCX Attending Dr: Sandra Vieira NP Ordering Physician: SANDRA VIEIRA NP Date of Service: 09/23/24 Procedure(s): XR shoulder RT min 2V Accession Number(s): [id number] cc: SANDRA VIEIRA NP EXAMINATION: XR SHOULDER, RIGHT CLINICAL INFORMATION: r/o AVN, question of AVN on XR from ED 09/03/24 COMPARISON: 09/01/24 chest x-ray. TECHNIQUE: AP external rotation, Grashey, scapular Y, and axillary views of the right shoulder. FINDINGS: Normal bone mineralization. No fracture, dislocation, or suspicious bone lesion. Normal alignment. The glenohumeral joint is normal. No evidence of AVN. The AC joint is normal. Mild spurring of the greater tuberosity. There is a neutral lateral acromion. No undersurface spurring. The subacromial space is preserved. Remainder of the soft tissue and bony structures appear normal. XR/XR shoulder RT min 2V IMPRESSION: Essentially normal right shoulder. No evidence of AVN. Electronically signed by: Mundo England MD 09/23/2024 01:55 PM EST Dictated By: Mundo England MD Signed By: <Electronically signed by Mundo England MD in OV> 09/23/24 1355 DD/ 1246 TD/TT: 09/23/24 1300 Account Resolution Analyst: us Sandra HARO IMG XR PROCEDURES Final Result * (ABNORMAL) POCT HGB A1C (09/23/2024 11:59 AM EST) Hemoglobin A1C 7.5(A) 4.0 - 6.0 % QC Media Lot # [id number] Lot# Expiration Date Blood 09/23/2024 11:5 9 AM EST us Sandra HARO POINT OF CARE TEST ENTER/EDIT OR DERABLES Final Result * (ABNORMAL) POCT Glucose (09/23/2024 11:54 AM EST) Glucose Blood, POC 288(A) 60 - 200 mg/dL QC Media Lot # [id number] Lot# Expiration Date Blood Capillary blood specimen / Unknown 09/23/2024 11:54 AM EST us Sandra HARO POINT OF CARE TEST ENTER/EDIT OR DERABLES Final Result documented in this encounter Visit Diagnoses Diagnosis Chronic pain of both shoulders- Primary Type 2 diabetes mellitus with hyperlipidemia (CMS/HCC) (CMS/HCC) Neck pain Cervicalgia Nonintractable episodic headache, unspecified headache type documented in this encounter Additional Health Concerns Assessment Noted Time PHQ-9 Depression Total Score: 5 11/23/19 24 1:33 PM EDT documented as of this encounter Care Teams Nut Sorter Relationship Specialty Start Date End Date Sandra Vieira ANP [address] [place] [address] PCP - General Family Medicine 09/03/20 Rajni García RN [address] [place] [address] Multineedle ShirrerCommunity Manager 09/18/24 documented as of this encounter
--- OUTSIDE RECORDS SUMMARY | 2024-09-23 15:29 | XMS_ITS | Encounter Summary ---
Author Organization [employer] Address [address] [facility] 7t [place] [address] Care Team Providers Care Thermo Processor Name Role Phone Wanda Bonilla Primary Care Provider [phone] Reason for Visit * Reason Onset Date Comments Med Refill 09/11/2024 Encounter Details Date Type Department Care Team ([facility] Contact Info) Description 09/11/2024 Telephone [facility] [address] [place] [address] Wanda Bonilla ANP [address] [place] [address] Med Refill Social History Tobacco Use Types [...] encounter Miscellaneous Notes * Telephone Encounter - Massiel Peterson RN - 09/11/2024 10:00 AM EST Called [facility], pt has 1 refill on file. First filled 08/29/24. Called pt to advise, pt verbalized understanding, to leaf size picker today. * Telephone Encounter - Nuvia Guardado LPN - 09/11/2024 9:40 AM EST Medication was sent to [facility] on 07/18/24 #30 with 2 refills. * Telephone Encounter - Anne Max - 09/11/2024 9:28 AM EST TC from pt requesting medication refill. Medications needing refill : lidocaine (Lidoderm) 5 % patch To be sent to: [facility] pharmacy documented in this encounter Plan of Treatment Upcoming Encounters Date Type Department Care Team (Late st Contact Info) Description 10/21/2024 10:00 AM EDT Office Visit [facility] [address] [place] [address] Shivani Small CNM [address] [place], [place] [phone] 12/08/2024 1:00 PM EDT Office Visit [facility] [address] [place], [place] [phone] Smiley Scott, OD [address] [place], [place] [phone] documented as of this encounter Visit Diagnoses Not on filedocumented in this encounter Additional Health Concerns Assessment Noted Time PHQ-9 Depression Total Score: 5 11/23/19 24 1:33 PM EDT documented as of this encounter Care Teams Thermo Processor Relationship Specialty Start Date End Date Wanda Bonilla ANP [address] [place], [place] [phone] PCP - General Family Medicine 09/03/20 documented as of this encounter
--- OUTSIDE RECORDS SUMMARY | 2024-09-23 15:29 | XMS_ITS | Encounter Summary ---
Author Organization [employer] Address [address] [place] [address] Care Team Providers Care Sat Math Tutor Name Role Phone Wanda Bonilla Primary Care Provider Rajni García RN Unavailable [phone] Reason for Visit * Reason Onset Date Comments Results 09/23/2024 Encounter Details Date Type Department Care Team ([facility] st Contact Info) Description 09/23/[address] [facility] MEDICINE [address] [place] [address] Janelle Cordova RN Results Social History Tobacco Use Types Packs/Day [...] encounter Miscellaneous Notes * Telephone Encounter - Janelle Cordova RN - 09/23/2024 3:13 PM EST TC placed to pt with S glass fitter Cristiana #[id number] to inform of Wanda Bonilla's message below regarding pt most recent shoulder XR results. Pt advised of the findings showing mild arthritis and recommendations by Wanda include possible physical therapy or an orthopedics evaluation to help with pt ongoing shoulder discomfort. Pt was agreeable to the referral for physical therapy and advised that Wanda willbe informed to place this. Pt stated understanding and had no further questions or concerns. ----- Message from Wanda Bonilla sent at 09/23/2024 3:08 PM EST ----- Please let Tank know that her XR of her shoulders and her neck looks good - mild arthritis but no concerning findings. Would recommend PT or possibly ortho eval for her shoulders if she would like. Thanks, Wanda documented in this encounter Plan of Treatment Upcoming Encounters Date Type Department Care Team (Late st Contact Info) Description 10/21/2024 10:00 AM EDT Office Visit [facility]ICINE [address] [place] [address] Shivani Small CNM [address] [place] [address] 12/08/2024 1:00 PM EDT Office Visit [facility] OPTOMETRY [address] [place], [place] [phone] Smiley Scott, OD [address] [place] [address] documented as of this encounter Visit Diagnoses Not on filedocumented in this encounter Additional Health Concerns Assessment Noted Time PHQ-9 Depression Total Score: 5 11/23/19 24 1:33 PM EDT documented as of this encounter Care Teams Sat Math Tutor Relationship Specialty Start Date End Date Wanda Bonilla ANP [address] [place] [address] PCP - General Family Medicine 09/03/20 Rajni García, TIM [address] [place] [address] Clinical Resource CoordinatorRail Grinder 09/18/24 documented as of this encounter
--- OUTSIDE RECORDS SUMMARY | 2024-09-23 15:29 | XMS_ITS | Encounter Summary ---
Author Organization [employer] Address [address] [facility] 7t [place] [address] Care Team Providers Care Yarn Worker Name Role Phone Wanda Bonilla TAHIR Primary Care Provider [phone] Reason for Visit * Reason Comments Med Refill Encounter Details Date Type Department Care Team ([facility] st Contact Info) Description 09/10/2024 Refill [facility] [address] [place], [place] [phone] Celina Salas MD [address] [place], [place] [phone] Type 2 diabetes mellitus with hyperlipidemia ([facility]/HCC) ([facility]) Social History Tobacco Use Types Packs/Day [...] Description 10/21/2024 10:00 AM EDT Office Visit [facility] [address] [place] [address] Shivani Small CNM [address] [place] [address] 12/08/2024 1:00 PM EDT Office Visit [facility] OPTOMETRY [address] [place] [address] Smiley Scott, OD [address] [place] [address] documented as of this encounter Visit Diagnoses Diagnosis Type 2 diabetes mellitus with hyperlipidemia (CMS/HCC) (CMS/HCC) documented in this encounter Additional Health Concerns Assessment Noted Time PHQ-9 Depression Total Score: 5 11/23/19 24 1:33 PM EDT documented as of this encounter Care Teams Yarn Worker Relationship Specialty Start Date End Date Wanda Bonilla ANP [address] [place] [address] PCP - General Family Medicine 09/03/20 documented as of this encounter
--- OUTSIDE RECORDS SUMMARY | 2024-09-23 15:29 | XMS_ITS | Encounter Summary ---
Author Organization [employer] Address [address] [facility] [address] [place] [address] Care Team Providers Care Film Mounter Name Role Phone Wanda Bonilla Primary Care Provider [phone] Reason for Visit * Reason Onset Date Comments Chart Prep 09/17/2024 Encounter Details Date Type Department Care Team ([facility] st Contact Info) Description 09/17/2024 Telephone [facility] MEDICINE [address] [place] [address] Wanda Bonilla ANP [address] [place] [address] Chart Prep Social History Tobacco Use Types Packs/Day Years [...] encounter Miscellaneous Notes * Telephone Encounter - Maida Quinones MA - 09/17/2024 12:51 PM EST Chart Prep Labs: done Images: not applicable Vaccines due: Covid Due, Hep A Due, PCV20 Due, Flu Due, RSV in Pharmacy Due, and Shingles in pharmacy Due Referrals: Podiatry Pending appointment on 09/22/2024 Screenings: Colonoscopy and Eye Exam Overdue care gaps: A1C, Glucose, SDOH, PHQ-9, and Oral Health documented in this encounter Plan of Treatment Upcoming Encounters Date Type Department Care Team (Late st Contact Info) Description 10/21/2024 10:00 AM EDT Office Visit [facility] MED[facility]INE [address] [place] [address] Shivani Small CNM [address] [place] [address] 12/08/2024 1:00 PM EDT Office Visit [facility] OPTOMETRY [address] [place] [address] Smiley Scott, JUDITH [address] [place] [address] documented as of this encounter Visit Diagnoses Not on filedocumented in this encounter Additional Health Concerns Assessment Noted Time PHQ-9 Depression Total Score: 5 11/23/19 24 1:33 PM EDT documented as of this encounter Care Teams Film Mounter Relationship Specialty Start Date End Date Wanda Bonilla ANP [address] [place] [address] PCP - General Family Medicine 09/03/20 documented as of this encounter
--- OUTSIDE RECORDS SUMMARY | 2024-09-23 15:29 | XMS_ITS | Encounter Summary ---
Author Organization [employer] Address [address] [facility] [address] [place] [address] Care Team Providers Care Manager Registration Name Role Phone Wanda Bonilla Primary Care Provider [phone] Rajni García RN Unavailable [phone] Reason for Visit * Reason Comments Med Refill Encounter Details Date Type Department Care Team ([facility] Contact Info) Description 09/23/2024 Refill [facility] [address] [place] [address] Wanda Bonilla ANP [address] [place] [address] Heartburn Social History Tobacco Use Types Packs/Day Years [...] Description 10/21/2024 10:00 AM EDT Office Visit [facility] [address] [place] [address] Shivani Small CNM [address] [place] [address] 12/08/2024 1:00 PM EDT Office Visit [facility] OPTOMETRY [address] [place] [address] Tyler, Smiley, OD [address] [place] [address] documented as of this encounter Visit Diagnoses Diagnosis Heartburn documented in this encounter Additional Health Concerns Assessment Noted Time PHQ-9 Depression Total Score: 5 11/23/19 24 1:33 PM EDT documented as of this encounter Care Teams Manager Registration Relationship Specialty Start Date End Date Wanda Bonilla ANP [address] [place] [address] PCP - General Family Medicine 09/03/20 Rajni García RN [address] [place] [address] Food ExpeditorOutboard Motors Experimental Mechanic 09/18/24 documented as of this encounter
--- OUTSIDE RECORDS SUMMARY | 2024-09-23 15:29 | XMS_ITS | Encounter Summary ---
Author Organization [employer] Address [address] [facility] 7t [place] [address] Care Team Providers Care Power Plant Superintendent Name Role Phone Wanda Bonilla Primary Care Provider [phone] Rajni García RN Unavailable Reason for Visit * Reason Comments Care Coordination Appt reminders Encounter Details Date Type Department Care Team (Latest Contact Info) Description 09/19/2024 Patient Outreach [facility] MEDICINE [address] [place] [address] Wanda Bonilla ANP [address] [place] [address] Care Coordination (Appt reminders) Social History Tobacco Use Types Packs/Day Years [...] encounter Progress Notes * La Haddad - 09/19/2024 9:44 AM EST CHW La Haddad placed call to patient, no answer at this time LVM with details of upcoming appts Podiatry 09/22 at 3:30pm [address] [place] [address]. PCP f/u 09/23 at 11:15am. documented in this encounter Plan of Treatment Upcoming Encounters Date Type Department Care Team (Late st Contact Info) Description 10/21/2024 10:00 AM EDT Office Visit [facility] MEDICINE [address] [place] [address] Shivani Small, CINTHIA [address] [place] [address] 12/08/2024 1:00 PM EDT Office Visit [facility] OPTOMETRY [address] [place] [address] Smiley Scott, OD [address] [place] [address] documented as of this encounter Visit Diagnoses Not on filedocumented in this encounter Additional Health Concerns Assessment Noted Time PHQ-9 Depression Total Score: 5 11/23/19 24 1:33 PM EDT documented as of this encounter Care Teams Power Plant Superintendent Relationship Specialty Start Date End Date Wanda Bonilla ANP [address] [place] [address] PCP - General Family Medicine 09/03/20 Rajni García RN [address] [place] [address] Account Support SpecialistBaccarat Manager 09/18/24 documented as of this encounter
--- OUTSIDE RECORDS SUMMARY | 2024-09-23 15:29 | XMS_ITS | Encounter Summary ---
Author Organization [employer] Address 75 [facility] 7t [place] [address] Care Team Providers Care Baggage Checker Name Role Phone Wanda Bonilla Primary Care Provider [phone] Rajni García RN Unavailable [phone] Reason for Visit * Reason Onset Date Comments Care Management 09/18/2024 C3CM- initial as sessment/ enrollment Encounter Details Date Type Department Care Team ([facility] st Contact Info) Description 09/18/2024 Telephone [facility] MEDICINE [address] [place] [address] Wanda Bonilla ANP [address] [place] [address] Care Management (C3CM- initial assessment/ enrollment) Social History Tobacco Use Types Packs/Day Years [...] Telephone Encounter - Rajni García RN - 09/18/2024 2:49 PM EST KAREN García RN, provided notification to PCP TAHIR Garcia of patient's enrollment into [facility]3 Complex Care Program. KAREN García RN, completed care plan and sent to HIM to be scanned into the medical record. PCP notified and awaiting review from provider. CM plan: -assist with scheduling visits with specialists and ensuring compliance to visits -provide patient with appt reminders and transportation to visits as needed -provide education on disease processes and management of chronic conditions -provide patient with resources based on positive SDOH needs * Telephone Encounter - Rajni García RN - 09/18/2024 2:47 PM EST KAREN García RN placed outbound call to patient for agreed upon time for initial assessment for enrollment into Adult Care Management Program. Patient's name, , and address were verified. Tank is a 59 year old female with Hx DM type 2, diabetic polyneuropathy, chronic headaches, sleep disorder, asthma, PAD, chronic Hep C, cirrhosis of liver, anxiety, depressed bipolar 1 disorder, panic disorder without agoraphobia, and prolactinoma. Patient reports following several specialists such [facility], [facility], [facility]iat[facility], [facility] Pul[facility], and [facility] Urology. Patient also reports following up with behavioral health at [facility]. Patient states she sees a therapist and a psychiatrist once a week or more often as needed. Per patient, is scheduled to see psych on 10/08. Per patient, doing well emotionally. She denies SI/HI and confirms having the number to crisis. Patient reports recent visit to [facility] ED for eval of chest pain and elevated troponin. She states she then f/u with [facility]iology on 09/11/24. Per patient, plan is to complete a CTA. She states she was informed that she will be contacted with an appt once scheduled. Per patient, taking all medications as prescribed. CM unable to reconcile meds as patient is not home now and does not have her meds or med list with her. Will reconcile at next f/u call. Per patient, no side effects or concerns with current regimen. Patient states she has a working BP monitor and glucometer. She states she knowsBP parameters as well as glucose parameters. Per patient, able to recognize s/s of hypo/hypertension and hypo/hyperglycemia. She states she monitors her sugars TID and confirms having all of the supplies that she needs. Patient states she has a nebulizer machine as well as inhalers for her asthma. S he also states she has a cane and walker which she uses for ambulation. Patient has not yet picked up the wrist braces from [facility]. CM provided her with the office contact information. She agrees tof/u with [facility]. Per patient, not sure if she suffers from sleep apnea. She states her provider ordered a sleep study for her which she has not yet completed. Per patient, not sure that she would like to complete the sleep study at this time. CM provided education and informed patient that we can assist with scheduling when she is ready to complete it. She agrees. Per patient, receving SENIOR ELECTRONICS DESIGN ENGINEER services through [employer]. She states her daughter in law is her SENIOR ELECTRONICS DESIGN ENGINEER. Per patient, SENIOR ELECTRONICS DESIGN ENGINEER assists herwith ADLs and accompanies her to all of her visits. She states she is happy with the services that are currently in place. She denies having a VNA. Patient is aware of her upcoming visits with Podiatry (09/22), PCP 09/23, and Urology (09/26). She reports having transportation and denies any barriers to attending these visits. Patient denies any immediate needs or concerns at this time. Care management program explained and contact information given. Patient verbalizes understanding, and able to repeat back to senior grant writer. A follow up call will be placed within 10 days, patient agrees with plan. documented in this encounter Plan of Treatment Upcoming Encounters Date Type Department Care Team (Late st Contact Info) Description 10/21/2024 10:00 AM EDT Office Visit [facility] MEDICINE [address] [place] [address] Shivani Small CNM [address] [place] [address] 12/08/2024 1:00 PM EDT Office Visit [facility] OPTOMETRY [address] [place], [place] [phone] Smiley Scott, OD 230 [place] [address] documented as of this encounter Visit Diagnoses Not on filedocumented in this encounter Additional Health Concerns Assessment Noted Time PHQ-9 Depression Total Score: 5 11/23/19 24 1:33 PM EDT documented as of this encounter Care Teams Baggage Checker Relationship Specialty Start Date End Date Wanda Bonilla ANP [address] [place] [address] PCP - General Family Medicine 09/03/20 Rajni García, TIM [address] [place] [address] Cigar BinderImplementation Specialist Payroll 09/18/24 documented as of this encounter
--- OUTSIDE RECORDS SUMMARY | 2024-09-23 15:29 | XMS_ITS | Encounter Summary ---
Author Organization [employer] Address [address] [facility] [address] 7t [place] [address] Care Team Providers Care Tire Repairman Name Role Phone Wanda Bonilla Primary Care Provider Rajni García RN Unavailable [phone] Reason for Visit * Reason Comments Med Refill Encounter Details Date Type Department Care Team ([facility] st Contact Info) Description 09/23/2024 Refill [facility] [address] [place] [address] Name, MD Jaxson [address] [place] [address] Social History Tobacco Use Types Packs/Day Years [...] Description 10/21/2024 10:00 AM EDT Office Visit [facility] MED[facility]INE [address] [place] [address] Shivani Small CNM [address] [place] [address] 12/08/2024 1:00 PM EDT Office Visit [facility] OPTOMETRY [address] [place] [address] Tyler, Smiley, OD [address] [place] [address] documented as of this encounter Visit Diagnoses Not on filedocumented in this encounter Additional Health Concerns Assessment Noted Time PHQ-9 Depression Total Score: 5 11/23/19 24 1:33 PM EDT documented as of this encounter Care Teams Tire Repairman Relationship Specialty Start Date End Date Wanda Bonilla ANP [address] [place] [address] PCP - General Family Medicine 09/03/20 Rajni García RN [address] [place] [address] Residential Lawn SpecialistPolice Commanding Officer 09/18/24 documented as of this encounter
--- OUTSIDE RECORDS SUMMARY | 2024-09-23 15:30 | XMS_ITS | Encounter Summary ---
Author Organization [employer] Address 75 [facility] 7t [place] [address] Care Team Providers Care Pantograph Ii Engraver Name Role Phone Wanda Bonilla Primary Care Provider Reason for Visit * Reason Comments Female Dysuria Encounter Details Date Type Department Care Team ([facility] st Contact Info) Description 08/29/2024 11:20 AM EST Office Visit [facility] [address] [place] [id number] Name, MD Jaxson [address] [place], [place] [phone] Dysuria (Primary Dx); Suprapubic discomfort; History of [...] 10:00 AM EDT Office Visit [facility] MED[facility] [address] [place] [address] Staci Shivani, CNM [address] [place] [address] 12/08/2024 1:00 PM EDT Office Visit [facility] OPTOMETRY [address] [place] [address] Tyler, Smiley, OD [address] [place] [address] documented as of this encounter Procedures Procedure [...] Detected Urine 08/29/2024 11:3 8 AM EST [facility] Name POINT OF CARE TEST ENTER/EDIT [...] documented as of this encounter Care Teams Pantograph Ii Engraver Relationship Specialty Start Date End Date Wanda Bonilla ANP [address] [place] [address] PCP - General Family Medicine 09/03/20 documented as of this encounter
--- OUTSIDE RECORDS SUMMARY | 2024-09-23 15:30 | XMS_ITS | Encounter Summary ---
Author Organization [employer] Address 75 [facility] 7t [place] [address] Care Team Providers Care Dietary Director Name Role Phone Wanda Bonilla Primary Care Provider [phone] Reason for Visit * Reason Comments Med Refill Encounter Details Date Type Department Care Team ([facility] st Contact Info) Description 09/15/2024 Refill [facility] MEDICINE [address] [place] [address] Wanda Bonilla ANP [address] [place] [address] Diabetic polyneuropathy associated with type 2 diabetes [...] Description 10/21/2024 10:00 AM EDT Office Visit [facility] MEDICINE [address] [place] [address] Shivani Small CNM [address] [place] [address] 12/08/2024 1:00 PM EDT Office Visit [facility] OPTOMETRY [address] [place] [address] Smiley Scott, OD 230 [place] [address] documented as of this encounter Visit Diagnoses Diagnosis Diabetic polyneuropathy associated with type 2 diabetes mellitus (CMS/HCC) documented in this encounter Additional Health Concerns Assessment Noted Time PHQ-9 Depression Total Score: 5 11/23/19 24 1:33 PM EDT documented as of this encounter Care Teams Dietary Director Relationship Specialty Start Date End Date Wanda Bonilla ANP [address] [place] [address] PCP - General Family Medicine 09/03/20 documented as of this encounter
--- OUTSIDE RECORDS SUMMARY | 2024-09-23 15:30 | XMS_ITS | Encounter Summary ---
Author Organization [employer] Address [address] [facility] 7t [place] [address] Care Team Providers Care Managing Attorney Name Role Phone Wanda Bonilla Primary Care Provider [phone] Rajni García RN Unavailable [phone] Reason for Visit * Reason Comments Med Refill Encounter Details Date Type Department Care Team ([facility] st Contact Info) Description 11/05/2023 Refill [facility] MEDICINE [address] [place], [place] [phone] Wanda Bonilla ANP [address] [place] [address] Social History Tobacco Use Types Packs/Day Years [...] 10:00 AM EDT Office Visit [facility] MEDICINE [address] [place] [address] Shivani Small CNM [address] [place] [address] 12/08/2024 1:00 PM EDT Office Visit [facility] OPTOMETRY [address] [place] [address] Tyler, Smiley, OD [address] [place] [address] documented as of this encounter Visit Diagnoses Not on filedocumented in this encounter Additional Health Concerns Assessment Noted Time PHQ-9 Depression Total Score: 0 08/25/19 23 1:48 PM EST documented as of this encounter Care Teams Managing Attorney Relationship Specialty Start Date End Date Wanda Bonilla ANP [address] [place] [address] PCP - General Family Medicine 09/03/20 Rajni García, TIM [address] [place] [address] Sandwich ArtistStatistical Assistant 09/18/24 documented as of this encounter
--- OUTSIDE RECORDS SUMMARY | 2024-09-23 15:30 | XMS_ITS | Encounter Summary ---
Author Organization [employer] Address [address] [facility] 7t [place] [address] Care Team Providers Care Appeals Reviewer Veteran Name Role Phone Wanda Bonilla Primary Care Provider [phone] Rajni García RN Unavailable [phone] Reason for Visit * Reason Onset Date Comments Results 09/12/2023 Encounter Details Date Type Department Care Team ([facility] Contact Info) Description 09/12/2023 Telephone [facility] MEDICINE [address] [place] [address] Wanda Bonilla ANP [address] [place] [address] Results Social History Tobacco Use Types Packs/Day [...] (in chart) Date when done: 08/30 Facility[place] [facility] Type of results: US neck Date when done: sometime last week per pt Facility: [facility] Please contact pt at [phone] documented in this encounter Plan of Treatment Upcoming Encounters Date Type Department Care Team (Late st Contact Info) Description 10/21/2024 10:00 AM EDT Office Visit [facility] MEDICINE [address] [place] [address] Shivani Small, CINTHIA 230 [place] [address] 12/08/2024 1:00 PM EDT Office Visit [facility] OPTOMETRY [address] [place] [address] Smiley Scott, OD [address] [place] [address] documented as of this encounter Visit Diagnoses Not on filedocumented in this encounter Additional Health Concerns Assessment Noted Time PHQ-9 Depression Total Score: 0 08/25/19 23 1:48 PM EST documented as of this encounter Care Teams Appeals Reviewer Veteran Relationship Specialty Start Date End Date Wanda Bonilla ANP [address] [place] [address] PCP - General Family Medicine 09/03/20 Rajni García RN [address] [place] [address] Teacher CitizenshipHemmer Lockstitch 09/18/24 documented as of this encounter
--- OUTSIDE RECORDS SUMMARY | 2024-09-23 15:30 | XMS_ITS | Encounter Summary ---
Author Organization [employer] Address [address] [facility] [address] 7t [place] [address] Care Team Providers Care Lead Injection Mold Technician Name Role Phone Wanda Bonilla Primary Care Provider [phone] Rajni García RN Unavailable [phone] Reason for Visit * Reason Comments Med Refill Encounter Details Date Type Department Care Team ([facility] st Contact Info) Description 03/20/2024 Refill [facility] MEDICINE [address] [place] [address] Shivani Small, CINTHIA [address] [place] [address] Social History Tobacco Use Types Packs/Day Years [...] Office Visit [facility] MEDICINE [address] [place] [address] Shivani Small CNM [address] [place] [address] 12/08/2024 1:00 PM EDT Office Visit [facility] OPTOMETRY [address] [place] [address] Smiley Scott, OD [address] [place] [address] documented as of this encounter Visit Diagnoses Not on filedocumented in this encounter Additional Health Concerns Assessment Noted Time PHQ-9 Depression Total Score: 5 11/23/19 24 1:33 PM EDT documented as of this encounter Care Teams Lead Injection Mold Technician Relationship Specialty Start Date End Date Wanda Bonilla ANP [address] [place] [address] PCP - General Family Medicine 09/03/20 Rajni García, TIM [address] [place] [address] Music ManagerConstruction Rigger 09/18/24 documented as of this encounter
--- OUTSIDE RECORDS SUMMARY | 2024-09-23 15:30 | XMS_ITS | Encounter Summary ---
Author Organization [employer] Address [address] [facility] 7t [place] [address] Care Team Providers Care Check Out Cashier Name Role Phone Wanda Bonilla Primary Care Provider [phone] Rajni García RN Unavailable [phone] Reason for Visit * Reason Onset Date Comments Returning Call 01/08/2024 Encounter Details Date Type Department Care Team ([facility] st Contact Info) Description 01/08/2024 Telephone [facility] MEDICINE [address] [place] [address] Wanda Bonilla ANP [address] [place] [address] Returning Call Social History Tobacco Use Types [...] Miscellaneous Notes * Telephone Encounter - Antonio Boo - 01/08/2024 9:44 AM EDT Tc from pt stated she received a call from manager long term care regarding new program in [facility], grant writer did not see anything documented but advised will forward message. documented in this encounter Plan of Treatment Upcoming Encounters Date Type Department Care Team (Late st Contact Info) Description 10/21/2024 10:00 AM EDT Office Visit [facility] MEDICINE [address] [place] [address] Shivani Small, CNM [address] [place] [address] 12/08/2024 1:00 PM EDT Office Visit [facility] OPTOMETRY [address] [place] [address] Tyler, Smiley, OD [address] [place] [address] documented as of this encounter Visit Diagnoses Not on filedocumented in this encounter Additional Health Concerns Assessment Noted Time PHQ-9 Depression Total Score: 5 11/23/19 24 1:33 PM EDT documented as of this encounter Care Teams Check Out Cashier Relationship Specialty Start Date End Date Wanda Bonilla ANP [address] [place] [address] PCP - General Family Medicine 09/03/20 Rajni García RN [address] [place] [address] Mixing Machine Tender Cork RodDeveloping Machine Operator 09/18/24 documented as of this encounter
--- OUTSIDE RECORDS SUMMARY | 2024-09-23 15:30 | XMS_ITS | Encounter Summary ---
Author Organization [employer] Address [address] [facility] [address]t [place] [address] Care Team Providers Care Transverse Abdominal Muscle Surgeon Name Role Phone Wanda Bonilla Primary Care Provider [phone] Rajni García RN Unavailable [phone] Reason for Visit * Reason Comments Med Refill Encounter Details Date Type Department Care Team ([facility] st Contact Info) Description 03/14/2024 Refill [facility] MEDICINE [address] [place] [address] Shivani Small, CINTHIA [address] [place] [address] Social History Tobacco Use Types Packs/Day Years [...] Description 10/21/2024 10:00 AM EDT Office Visit [facility] MEDICINE [address] [place] [address] Shivani Small CNM [address] [place] [address] 12/08/2024 1:00 PM EDT Office Visit [facility] OPTOMETRY [address] [place] [address] Smiley Scott, OD [address] [place] [address] documented as of this encounter Visit Diagnoses Not on filedocumented in this encounter Additional Health Concerns Assessment Noted Time PHQ-9 Depression Total Score: 5 11/23/19 24 1:33 PM EDT documented as of this encounter Care Teams Transverse Abdominal Muscle Surgeon Relationship Specialty Start Date End Date Wanda Bonilla ANP [address] [place] [address] PCP - General Family Medicine 09/03/20 Rajni García, TIM [address] [place] [address] Communications ConsultantAsbestos Cloth Inspector 09/18/24 documented as of this encounter
--- OUTSIDE RECORDS SUMMARY | 2024-09-23 15:30 | XMS_ITS | Encounter Summary ---
Author Organization [employer] Address [address] [facility] [address] [place] [address] Care Team Providers Care Clerk Entry Level Name Role Phone Wanda Bonilla Primary Care Provider [phone] Rajni García RN Unavailable [phone] Encounter Details Date Type Department Care Team ([facility] st Contact Info) Description 08/14/2024 Telephone [facility] MEDICINE [address] [place], [place] [phone] Adolfo Fernando, VishnuD Social History Tobacco Use [...] side effects, and the importance of adherence. Mc Badillo documented in this encounter Plan of Treatment Upcoming Encounters Date Type Department Care Team (Late st Contact Info) Description 10/21/2024 10:00 AM EDT Office Visit [facility] MEDICINE [address] [place] [address] Shivani Small CNM [address] [place] [address] 12/08/2024 1:00 PM EDT Office Visit [facility] OPTOMETRY [address] [place] [address] Smiley Scott, OD [address] [place] [address] documented as of this encounter Visit Diagnoses Not on filedocumented in this encounter Additional Health Concerns Assessment Noted Time PHQ-9 Depression Total Score: 5 11/23/19 24 1:33 PM EDT documented as of this encounter Care Teams Clerk Entry Level Relationship Specialty Start Date End Date Wanda Bonilla ANP [address] [place] [address] PCP - General Family Medicine 09/03/20 Rajni García RN [address] [place] [id number] Boring Machine Operator ProductionGamb Cutter 09/18/24 documented as of this encounter
--- OUTSIDE RECORDS SUMMARY | 2024-09-23 15:30 | XMS_ITS | Encounter Summary ---
Author Organization [employer] Address [address] [facility] 7t [place] [address] Care Team Providers Care Cloth Mercerizing Supervisor Name Role Phone Wanda Bonilla Primary Care Provider [phone] Rajni García RN Unavailable [phone] Reason for Visit * Reason Onset Date Comments triage 07/13/2022 Encounter Details Date Type Department Care Team (Late st Contact Info) Description 07/13/[address] [facility] MEDICINE [address] [place] [address] Wanda Bonilla ANP [address] [place] [address] triage Social History Tobacco Use Types Packs/Day [...] caller The caller accepted this outcome speaks [email or web address] documented in this encounter Plan of Treatment Upcoming Encounters Date Type Department Care Team (Late st Contact Info) Description 10/21/2024 10:00 AM EDT Office Visit [facility] MEDICINE [address] [place] [address] Shivani Small, CINTHIA [address] [place] [address] 12/08/2024 1:00 PM EDT Office Visit [facility] OPTOMETRY [address] [place] [address] Smiley Scott, OD [address] [place] [address] documented as of this encounter Visit Diagnoses Not on filedocumented in this encounter Care Teams Cloth Mercerizing Supervisor Relationship Specialty Start Date End Date Wanda Bonilla ANP [address] [place] [address] PCP - General Family Medicine 09/03/20 Rajni García, TIM [address] [place] [address] Circle Shear OperatorFurniture Painter 09/18/24 documented as of this encounter
--- OUTSIDE RECORDS SUMMARY | 2024-09-23 15:30 | XMS_ITS | Clinical Summary ---
Author Organization [employer] Address [address] [facility] [address] [place] [address] Care Team Providers Care Design Project Manager Name Role Phone Irene Sandra HARO Primary Care Provider Rajni García RN Unavailable [phone] Allergies Active Allergy Reactions Criticality Noted Date [...] TO 6 HOURS NEEDED 18 g 1 023 Active prazosin (Minipress) 2 MG capsule Take 2 mg by mouth at bedtime. 023 Active pyridoxine (Vitamin B-6) 100 MG tablet Take 100 mg by mouth in the morning. 023 Active QUEtiapine (SEROquel) 100 MG tablet Take 150 mg by mouth at bedtime. 023 Active QUEtiapine (SEROquel) 25 MG tablet Take 25 mg by mouth if needed in the morning and at bedtime. 023 Active meclizine (Antivert) 25 MG tablet TAKE 1 TABLET BY MOUTH THREE TIMES DAILY IN THE MORNING, EVENING, AND BEDTIME NEEDED FOR DIZZINESS 30 tablet 1 024 Active famotidine (Pepcid) 20 MG tabletIndication s:Heartburn Take 1 tablet twice daily as needed for acid reflux 60 tablet 1 024 Active hydrocortisone 1 % creamIndications :Rash Apply topically 2 times daily. 45 g 024 Active FREESTYLE LITE test strip TEST BLOOD SUGAR THREE TIMES DAILY 100 strip 11 024 Active budesonide (Pulmicort Flexhaler) 180 MCG/ACT inhalerIndicatio ns:Asthma, unspecified asthma severity, unspecified whether complicated, unspecified whether persistent Inhale 2 puffs 2 times daily. Rinse mouth after use. 1 each 024 2024 Active lansoprazole (Prevacid) [address] capsuleIndicatio ns:Heartburn TAKE 1 CAPSULE BY MOUTH EVERY DAY BEFORE BREAKFAST. DO NOT BREAK, CRUSH, DISSOLVE OR CHEW 90 capsule 1 024 Active Stool Softener/Laxativ e 50-8.6 MG tablet TAKE 2 TABLETS BY MOUTH EVERY DAY AT BEDTIME 024 Active Diclofenac Sodium 1 % gel APPLY 2 GRAMS TOPICALLY EVERY 6 HOURS 100 g 024 Active D3-1000 25 MCG (1000 UT) capsuleIndicatio ns:Low vitamin D level TAKE 1 CAPSULE BY MOUTH EVERY MORNING 90 capsule 2 024 Active rosuvastatin (Crestor) 5 MG tabletIndication s:Type 2 diabetes mellitus with hyperlipidemia (CMS/HCC) (CMS/HCC) TAKE 1 TABLET BY MOUTH EVERY EVENING 90 tablet 3 024 Active pioglitazone (Actos) 15 MG tabletIndication s:Type 2 diabetes mellitus with hyperlipidemia ([facility]) ([facility]) TAKE 1 TABLET BY MOUTH EVERY MORNING 90 tablet 3 024 Active lisinopril 40 MG tablet TAKE 1 TABLET BY MOUTH EVERY EVENING 90 tablet 3 024 Active Aspirin Low Dose 81 MG EC tablet TAKE 1 TABLET BY MOUTH EVERY EVENING 90 tablet 3 024 Active TRUEplus Lancets 33G misc TEST BLOOD SUGAR THREE TIMES DAILY 100 each 11 024 Active lidocaine (Lidoderm) 5 % patchIndications :Pain APPLY 1 PATCH TOPICALLY TO SKIN, LEAVE ON FOR 12 HOURS AND OFF FOR 12 HOURS DIRECTED 30 patch 2 024 Active amLODIPine (Norvasc) 10 MG tabletIndication s:Essential hypertension TAKE 1 TABLET BY MOUTH EVERYDAY AT NOON 90 tablet 3 024 Active insulin pen needle (Easy Touch Pen [place]) 31G X 8 mm miscIndications: Diabetic polyneuropathy associated with type 2 diabetes mellitus ([facility]) USE DIRECTED FOUR TIMES DAILY 100 each 11 025 Active Lantus SoloStar 100 UNIT/ML penIndications:T ype 2 diabetes mellitus with hyperglycemia, with long-term current use of insulin ([facility]) INJECT 54 UNITS SUBCUTANEOUSLY EVERY DAY 15 [...] weekly thereafter 45 g 2 025 Active Blood Pressure Monitoring (Omron 3 Series BP Monitor) device Use as directed 1x/d 1 each Active Blood Glucose Monitoring Suppl (FreeStyle [place] Lite) w/Device kit Use to test blood sugar 1x times daily 1 kit Active insulin lispro (HumaLOG) 100 UNIT/ML injectionIndicat ions:Type 2 diabetes mellitus with hyperlipidemia ([facility]/HCC) ([facility]) INJECT 20 UNITS SUBCUTANEOUSLY THREE TIMES DAILY WITH MEALS 15 mL 11 025 Active Ozempic, 0.25 or 0.5 MG/DOSE, 2 MG/3ML solution pen-injectorIndi cations:Diabetic polyneuropathy associated with type 2 diabetes mellitus ([facility]) INJECT 0.5 MG SUBCUTANEOUSLY EVERY 7 DAYS IN THE ABDOMEN, THIGHS, OR UPPER ARM, ROTATE INJECTION SITES. 3 mL 1 025 Active butalbital-aceta minophen-caffein e 50-325-40 MG tabletIndication s:Nonintractable episodic headache, unspecified headache type Take 1 tablet as needed for migraine once, can repeat after 2 hours, do not exceed more than 4 tablets in 24 hours or use more than 3 days in 1 month 18 tablet Active insulin lispro (HumaLOG) 100 UNIT/ML injectionIndicat ions:Type 2 diabetes mellitus with hyperlipidemia ([facility]/HCC) ([facility]) INJECT 20 UNITS SUBCUTANEOUSLY THREE TIMES DAILY WITH MEALS 15 mL 024 2024 Discontinued estradiol (Estrace) 0.1 MG/GM [...] eorder (will not trigger notification to Pharmacy)) carvedilol (Coreg) 6.25 MG tabletIndication s:Primary hypertension Take 1 tablet (6.25 mg) by mouth 2 times daily. 60 tablet 2 024 2024 Discontinued Ozempic, 0.25 or 0.5 MG/DOSE, 2 MG/3ML solution pen-injectorIndi cations:Diabetic polyneuropathy associated with type 2 diabetes mellitus (CMS/HCC) INJECT 0.5 MG SUBCUTANEOUSLY EVERY 7 DAYS IN THE ABDOMEN, THIGHS, OR UPPER ARM, ROTATE INJECTION SITES. 3 mL 1 025 2024 Discontinued sulfamethoxazole -trimethoprim (Bactrim DS) 800-160 MG tablet [...] opiates) with Tylenol and ibuprofen I called [facility] cardiology clinic and they will call [...] Chest pain 12/07/2023 Overview (12/07/2023): Admitted at [facility] 11/11/-11/14/23 ?NSTEMI Optimize BP, [...] Psychiatrist decreased seroquel. She was referred to [facility] Breast Specialist for further eval. [...] 12/21/2017 Cirrhosis of liver 07/27/2017 Overview (10/01/2023): [facility] GI D/t HCV (suspect [...] Hepatitis C 04/24/2023 08/02/2023 Urinary tract infection 04/24/2023/10/2023 Chronic hepatitis 04/24/2023 08/02/2023 UTI (urinary tract infection) 03/09/2023 08/02/2023 Assessment & Plan (03/09/2023 2:36 PM EDT): Drink plenty of water Do not hold the urine Insulin dependent type 1 diabetes mellitus 09/24/2018 08/02/2023 Encounters Date Type Department Care Team Description 09/23/2024 11:15 AM EST Office Visit [facility] [address] [place] [phone] Sandra Vieira ANP Chronic pain of both shoulders (Primary Dx); Type 2 diabetes mellitus with hyperlipidemia (CMS/HCC) ([facility]/HCC); Neck pain; Nonintractable episodic headache, unspecified headache type 09/23/[address] [address] aJnelle Cordova RN Results 09/23/2024 Travel 09/23/2024 Refill [facility] [address] [place] [phone] Name, MD Jaxson 09/23/2024 Refill [facility] [address] [place] [phone] Sandra Vieira ANP Heartburn 09/19/2024 Patient Outreach [address] [address] Sandra Vieira ANP Care Coordination (Appt reminders) 09/18/[address] [address] Sandra Vieira ANP Care Management (C3- initial assessment/ enrollment) 09/17/[address] [address] Sandra Vieira ANP Chart Prep 09/17/2024 Patient Outreach [address] [address] Sandra Vieira ANP Care Coordination (CM/CHW appt reminder) 09/15/[address] [address] Sandra Vieira ANP Diabetic polyneuropathy associated with type 2 diabetes mellitus ([facility]) 09/11/[address] [address] Sandra Vieira ANP Med Refill 09/10/[address] [address] Celina Salas MD Type 2 diabetes mellitus with hyperlipidemia ([facility]) ([facility]) 09/08/2024 9:00 AM EST [facility] [address] [address] Brenda Lopez MD DOE (dyspnea on exertion) (Primary Dx); Primary hypertension; Other microscopic hematuria 09/03/[address] [address] Sandra Vieira ANP ER Follow-up 09/02/2024 Patient Outreach [address] [address] Sandra Vieira ANP Care Coordination (CM/CHW outreach) 09/02/[address] [address] Rajni García RN Care Management (C3- chart review) 09/01/2024 Orders Only [facility] External Provider, [facility] 08/29/2024 11:20 AM EST [facility] [address] [address] Jaxson Roman MD Dysuria (Primary Dx); Suprapubic discomfort; History of hematuria 08/29/2024 Orders Only [facility] External Provider, [facility] 08/26/2024 Refill [facility] [address] [place] [address] Sandra Vieira ANP Primary hypertension 08/16/2024 Refill [facility] [address] [place] [address] Sandra Vieira ANP Restless legs 08/15/2024 Travel 08/14/2024 Telephone [facility] [address] [place] [address] Adolfo Fernando PharmD 08/13/2024 Refill [facility] [address] [place] [address] Sandra Vieira ANP Type 2 diabetes mellitus with hyperglycemia, with long-term current use of insulin ([facility]) 08/11/2024 Refill [facility] [address] [place] [address] Sandra Vieira ANP Diabetic polyneuropathy associated with type 2 diabetes mellitus ([facility]) 08/04/2024 9:40 AM EST Office Visit [facility] [address] [place] [address] Adolfo Benitez MD Mild persistent asthma with acute exacerbation (Primary Dx); Hypertension, unspecified type; Viral URI 08/04/2024 Telephone [facility] [address] [place] [address] Sandra Vieira ANP Nurse Triage 08/03/2024 Refill [facility] [address] [place] [address] Sandra Vieira ANP Essential hypertension 08/01/2024 Refill [facility] [address] [place] [address] Sandra Vieira ANP Diabetic polyneuropathy associated with type 2 diabetes mellitus ([facility]) 07/28/2024 Telephone [facility] [address] [place] [phone] Erika Rosa [place] February recall 07/28/2024 Refill [facility] [address] [place] [address] Sandra Vieira ANP Essential hypertension 07/25/[address] [address] Sandra Vieira ANP Results 07/24/2024 1:15 PM EST Office Visit [address] [address] Sandra Vieira ANP Diabetic polyneuropathy associated with type 2 diabetes mellitus (CMS/HCC) (Primary Dx); Primary hypertension; Renal stones; Dysuria 07/24/2024 Orders Only [facility] [address] [place] [phone] Sandra Vieira ANP 07/24/2024 Travel 07/18/[address] [address] Sandra Vieira ANP Pain 07/08/[address] [address] Sandra Vieira ANP Appointment Request 07/03/2024 Orders Only [facility] External Provider, [facility] 06/30/[address] [address] Sandra Vieira ANP Results from Last 3 Months Immunizations Name Administration [...] (174 lb) 09/23/2024 11:53 AM EST Height 160 cm (5' 3 ) 09/08/2024 8:43 AM EST Body Mass Index 30.82 09/08/2024 8:43 AM EST Plan of Treatment Upcoming Encounters Date Type Department Care Team (Late st Contact Info) Description 10/21/2024 10:00 AM EDT Office Visit [facility] [address] [place] [address] Shivani Small, CNM [address] [place] [address] 12/08/2024 1:00 PM EDT Office Visit [facility] [address] [place] [address] Tyler, Smiley, OD [address] [place] [address] Health Maintenance Due Date Last Done Comments [...] 05/01/2024 05/01/2023, 05/20/2021 SDOH Screening 08/30/2024 08/30/2023 Eye Exam 09/26/2024 09/27/2023, 08/31, 09/27/2023, Additional history exists Depression Screening 11/22/2024 11/23/2023, 11/23/19 24 Diabetes: Hemoglobin A1C 12/21/2024 025, 06/05/2024, 03/07/2024, Additional history exists Alcohol/Substance Use Screening 07/24/2025 07/24/2024 Tobacco Screening 09/23/2025 09/23/2024 Cervical Cancer Screening 05/02/2026 HPV/Cotest 05/02/2026 05/02/2021 Mammogram 07/03/2026 07/03/2024, 1211/2023, 01/04/2024, Additional history exists Pap Smear 06/17/2029 [...] EST Neck pain XR SHOULDER 2+ VIEWS LEFT Routine 09/23/2024 12:46 PM EST Chronic pain of both shoulders XR SHOULDER 2+ VIEWS RIGHT Routine 09/23/2024 12:46 PM EST Chronic pain of both shoulders POCT GLYCATED HEMOGLOBIN, TOTAL Routine 09/23/2024 11:59 AM EST Type 2 diabetes mellitus with hyperlipidemia (CMS/HCC) (CMS/HCC) POCT GLUCOSE Routine 09/23/2024 11:54 AM EST Type 2 diabetes mellitus with hyperlipidemia (CMS/HCC) (CMS/HCC) POCT URINALYSIS DIPSTICK Routine 09/08/2024 9:21 AM EST Other microscopic hematuria CULTURE, URINE, ROUTINE Routine 09/08/2024 9:21 AM EST Other microscopic [...] PAP SMEAR Routine 06/17/2024 10:30 AM EST HIV 1/2 ANTIGEN/ANTIBODY, FOURTH GENERATION W/RFL Routine 03/24/2024 3:20 PM EDT ALBUMIN, RANDOM URINE W/CREATININE Routine 05/01/2023 11:30 AM EDT Type 2 diabetes mellitus with hyperlipidemia (CMS/HCC) LIPID PANEL, STANDARD Routine 05/01/2023 11:30 AM EDT Type 2 diabetes mellitus with hyperlipidemia (CMS/HCC) HPV MRNA E6/E7 Routine 05/02/2021 12:00 AM EDT from Last 3 Months or Most Recently Relevant to Health Maintenance Results * XR CERVICAL SPINE 4V (09/23/2024 12:46 PM EST) Anatomical Region Laterality Modality Abdomen Radiographic Nina ging 09/23/2024 12:4 6 PM EST Narrative 09/23/2024 2:05 PM EST ?[facility] ?[address] ?[place] [address] ?XRay Report ? Signed ? Patient: Colon,Milsa ?MR#: [id number] ? : 1965 ?Acct:[id number] ? Age/Sex: 59 / F ?ADM Date: 09/23/24 ? Loc: HO.HHCX ? Attending Dr: Sandra Vieira NP ? Ordering Physician: SANDRA VIEIRA NP ?? Date of Service: 09/23/24 ?? Procedure(s): XR cervical spine 4V ?? Accession Number(s): [id number] ? cc: SANDRA VIEIRA NP ? EXAMINATION: [...] DD/ 1246 ? TD/TT: 09/23/24 1300 ? Coke Drawer: ? Procedure Note Donotuseinterpreter, Image - 09/23/[address] [address] XRay Report Signed Patient: Barrera Max#: [id number] : 1965Acct:[id number] Age/Sex: 59 / FADM Date: 09/23/24 Loc: HO.HHCX Attending Dr: Sandra Vieira NP Ordering Physician: SANDRA VIEIRA NP Date of Service: 09/23/24 Procedure(s): XR cervical spine 4V Accession Number(s): [id number] cc: SANDRA VIEIRA NP EXAMINATION: XR CERVICAL [...] by: Mundo England MD 09/23/2024 02:02 PM [facility] Dictated By: Mundo England MD Signed By: <Electronically signed by Mundo England MD in OV> 09/23/24 1402 DD/ 1246 TD/TT: 09/23/24 1300 Coke Drawer: Sandra Vieira ANP IMG XR PROCEDURES Final Result * XR Shoulder 2+ Views Right (09/23/2024 12:46 PM EST) Anatomical Region Laterality Modality Upper Extremities, Shoulder Right Radi ographic Imaging 09/23/2024 12:4 6 PM EST Narrative 09/23/2024 1:58 PM EST ?[facility] ?[address] ?[place] [address] ?XRay Report ? Signed ? Patient: Colon,Milsa ?MR#: [id number] ? : 1965 ?Acct:[id number] ? Age/Sex: 59 / F ?ADM Date: 09/23/24 ? Loc: HO.HHCX ? Attending Dr: Sandra Vieira NP ? Ordering Physician: SANDRA VIEIRA NP ?? Date of Service: 09/23/24 ?? Procedure(s): XR shoulder RT min 2V ?? Accession Number(s): [id number] ? cc: SANDRA VIEIRA NP ? EXAMINATION: [...] DD/ 1246 ? TD/TT: 09/23/24 1300 ? Coke Drawer: ? Procedure Note Donotuseinterpreter, Image - 09/23/2024 [facility] [address] [place] [address] XRay Report Signed Patient: Barrera Max#: [id number] : 1965Acct:[id number] Age/Sex: 59 / FADM Date: 09/23/24 Loc: HO.HHCX Attending Dr: Sandra Vieira RECOVERY OPERATOR Ordering Physician: SANDRA VIEIRA NP Date of Service: 09/23/24 Procedure(s): XR shoulder RT min 2V Accession Number(s): [id number] cc: SANDRA VIEIRA NP EXAMINATION: XR SHOULDER, [...] 09/23/24 1355 DD/ 1246 TD/TT: 09/23/24 1300 Coke Drawer: Sandra Vieira ANP IMG XR PROCEDURES Final Result * XR Shoulder 2+ Views Left (09/23/2024 12:46 PM EST) Anatomical Region Laterality Modality Upper Extremities, Shoulder Left Radi ographic Imaging 09/23/2024 12:4 6 PM EST Narrative 09/23/2024 2:00 PM EST ?[facility] ?[address] ?[place] [address] ?XRay Report ? Signed ? Patient: Colon,Milsa ?MR#: [id number] ? : 1965 ?Acct:[id number] ? Age/Sex: 59 / F ?ADM Date: 09/23/24 ? Loc: HO.HHCX ? Attending Dr: Sandra Vieira NP ? Ordering Physician: SANDRA VIEIRA NP ?? Date of Service: 09/23/24 ?? Procedure(s): XR shoulder LT min 2V ?? Accession Number(s): [id number] ? cc: SANDRA VIEIRA NP ? EXAMINATION: [...] DD/ 1246 ? TD/TT: 09/23/24 1300 ? Coke Drawer: ? Procedure Note Zelda, Image - 09/23/2024 [facility] [address] [place] [address] XRay Report Signed Patient: Barrera Max#: [id number] : 1965Acct:[id number] Age/Sex: 59 / FADM Date: 09/23/24 Loc: HO.HHCX Attending Dr: Sandra Vieira RECOVERY OPERATOR Ordering Physician: SANDRA VIEIRA NP Date of Service: 09/23/24 Procedure(s): XR shoulder LT min 2V Accession Number(s): [id number] cc: SANDRA VIEIRA NP EXAMINATION: XR SHOULDER, LEFT CLINICAL INFORMATION: r/o [...] Mundo England MD 09/23/2024 01:57 PM EST Dictated By: Mundo England MD Signed By: <Electronically signed by Mundo England MD in OV> 09/23/24 1357 DD/ 1246 TD/TT: 09/23/24 1300 Coke Drawer: Sandra Vieira ANP IMG XR PROCEDURES Final Result * (ABNORMAL) POCT HGB A1C (09/23/2024 11:59 AM EST) Hemoglobin A1C 7.5(A) 4.0 - 6.0 % QC Media Lot # [id number] Lot# Expiration Date Blood 09/23/2024 11:5 9 AM EST Sandra Vieira ANP POINT OF CARE TEST ENTER/EDIT OR DERABLES Final Result * (ABNORMAL) POCT Glucose (09/23/2024 11:54 AM EST) Glucose Blood, POC 288(A) 60 - 200 mg/dL QC Media Lot # [id number] Lot# Expiration Date Blood Capillary blood specimen / Unknown 09/23/2024 11:54 AM EST Sandra Vieira ANP POINT OF CARE TEST ENTER/EDIT OR DERABLES Final Result * POCT urinalysis dipstick manually resulted (09/08/2024 [...] None Detected Urine 09/08/2024 9:21 AM EST Brenda Lopez MD POINT OF CARE TEST ENTER /EDIT ORDERABLES Final Result * Culture, Urine, Routine (09/08/2024 9:21 AM EST) Only the most recent of2 resultswithin the time period is included. Urine Urine specimen obtained by clean catch procedure / Unknown 09/08/2024 9:21 AM EST 09/08/2024 1:29 PM EST Comment:UACC Narrative [facility] - 09/09/2024 9:54 AM EST Urine Culture Report Result Urine Culture < 10,000 cfu/ml Specimen Source: Urine clean catch Brenda Lopez MD LAB MICROBIOLOGY - GENER AL ORDERABLES Final Result [facility] [address] [place] [address] [phone] * US Abdomen Limited (09/03/2024 9:53 AM EST) Anatomical Region Laterality Modality Abdomen Ultrasound 09/03/2024 9:53 AM EST Narrative 09/03/2024 9:55 AM EST ? [facility] ?[address] ?[place] [address] ? Ultrasound Report ? Signed ? Patient: Colon,Milsa ?MR#: [id number] ? : 1965 ?Acct:[id number] ? Age/Sex: 59 / F ?ADM Date: 08/29/24 ? Loc: HO.US ? Attending Dr: Ashlie Maldonado MD ? Ordering Physician: Ashlie Maldonado MD ?? Date of Service: 08/29/24 ?? Procedure(s): US abdomen limited ?? Accession Number(s): [id number] ? cc: Ashlie Maldonado MD; SANDRA VIEIRA [...] Della Hand MD in OV> ? 09/03/24 09 ? DD/ 0953 ? TD/TT: 09/03/24 09 ? Coke Drawer: ? Procedure Note Concepción Ndiaye - 09/03/[address] [place] [address] Ultrasound Report Signed Patient: Barrera Max#: [id number] : 1965Acct:[id number] Age/Sex: 59 / FADM Date: 08/29/24 Loc: HO.US Attending Dr: Ashlie Maldonado MD Ordering Physician: Ashlie Maldonado MD Date of Service: 08/29/24 Procedure(s): US abdomen limited Accession Number(s): [id number] cc: Ashlie Maldonado MD; SANDRA VIEIRA NP [...] signed by Della Hand MD in OV> 09/03/24 0955 DD/ 2 TD/TT: 09/03/24952 Coke Drawer: [facility] External Provider IMG US PROCEDURES Edited Result - Final * (ABNORMAL) High Sensitivity Troponin I (09/01/2024 6:13 PM EST) Only the most recent of2 resultswithin the time period is included. TROPONIN I HIGH SENSITIVITY 142.2(HH) <3.5 - 17.0 ng/L [facility] Comment:Critical value for t est(s): TROP-IHS Results called to em back by:BOWEN Person calling: KUSF Date:72-26-37Rocd:1840The [place] high sensitivity Troponin-I results should beused in conjunction with other diagnostic information suchas ECG, clinical observations and information, and patientsymptoms to aid in the diagnosis of [place]. 09/01/2024 6:13 PM EST 09/01/2024 6:17 PM EST Generic External Data Provider LAB BLOOD ORDERAB LES Final Result Performing Organization Address [facility] de Phone Number [facility] [address] [place] [phone] * Urinalysis w/reflex microscopic (09/01/2024 6:13 PM EST) Color Urine Yellow [facility] Appearance Urine Cloudy [facility] PH 7.0 5.0 - 9.0 [facility] Glucose Urine UA Negative Negative mg/dL [facility] Urine Blood Negative Negative [facility] Specific [place] - Urine 1.015 1.005 - 1.025 [facility] Urine Protein Negative Neg-Trace mg/dL [facility] Urine Ketones Negative Negative mg/dL [facility] Nitrite Urine Negative Negative [facility] Leukocyte Esterase Urine Negative Negative [facility] 09/01/2024 6:13 PM EST 09/01/2024 6:17 PM EST Narrative [facility] - 09/01/2024 6:25 PM EST [id number], Clean Catch Generic External Data Provider LAB URINE ORDERAB LES Final Result Performing Organization Address [facility] Co de Phone Number [facility] [address] [place] [phone] * D Dimer High Sensitivity (09/01/2024 3:51 PM EST) Pathologist [facility] D Dimer High Sensitivity <150 NG/ML [facility] Comment:D-DIMER HS REFERENCE RANGENote: Our [...] ORDERAB LES Final Result Performing Organization Address [facility] Co de Phone Number [facility] [address] [place] [phone] * SARS-CoV-2 RNA, Influenza A/B, and RSV RNA, Ql NAAT (09/01/2024 3:51 PM EST) [facility] Influenza A PCR NEGATIVE Negative [facility] Influenza B PCR NEGATIVE Negative [facility] Resp Syncy Virus RNA Qual PCR NEGATIVE Negative [facility] SARS COV2 PCR NEGATIVE Negative [facility] Comment:All test results mus t [...] use by authorized laboratories.Testing performed on the [employer] GeneXpert utilizingreal-time RT-PCR.All SARS CoV2 and positive influenza A/B results arereported to [facility]. 09/01/2024 3:51 PM EST 09/01/2024 3:53 PM EST Generic External Data Provider LAB MICROBIOLOGY - GENERAL ORDERABLES Final Result Performing Organization Address [facility] de Phone Number [facility] [address] [place] [phone] * (ABNORMAL) CBC auto differential (09/01/2024 3:51 PM EST) [facility] White Blood Count 4.9 4.8 - 10.8 X10*3/uL [facility] Red Blood Count 4.25 4.20 - 5.50 X10*6/uL [facility] Hemoglobin 12.0 12.0 - 16.0 g/dl [facility] Hematocrit 34.9(L) 37.0 - 47.0 % [facility] Mean Corpuscular Volume 82.1 80.0 - 98.0 fL [facility] Mean Corpuscular Hemoglobin 28.2 27.0 - 33.0 pg [facility] [facility] Mean Corpuscular HGB Conc 34.4 31.0 - 35.0 g/dl [facility] Red Cell Distribution Width 12.6 11.0 - 16.0 % [facility] Platelet Count 110(L) 160 - 400 X10*3/uL [facility] Mean Platelet Volume 10.3 9.4 - 12.3 fL [facility] Neutrophils Percent Auto 61.2 45 - 73 % [facility] Imm Gran Pct Auto 0.2 0.0 - 0.4 % [facility] Lymphocytes Percent Auto 26.4 20 - 40 % [facility] Monocytes Percent Auto 11.0 2 - 11 % [facility] Eosinophils Percent Auto 1.0 0 - 4 % [facility] Basophils Percent Auto 0.2 0 - 2 % [facility] NRBC Pct Auto 0.0 0.0 - 0.2 /100WBC [facility] Neutrophils Absolute Auto 3.0 2.0 - 8.3 x10*3/uL [facility] Imm Gran Abs Auto 0.01 0.00 - 0.03 X10*3/uL [facility] Lymphocytes Absolute Auto 1.3 1.2 - 4.9 X10*3/uL [facility] Monocytes Absolute Auto 0.5 0.1 - 1.2 X10*3/uL [facility] Eosinophils Absolute Auto 0.1 0.0 - 0.4 X10*3/uL [facility] Basophils Absolute Auto 0.0 0.0 - 0.2 X10*3/uL [facility] NRBC Abs Auto 0.000 0.0 - 0.012 X10*3/uL [facility] 09/01/2024 3:51 PM EST 09/01/2024 3:53 PM EST Generic External Data Provider LAB BLOOD ORDERAB LES Final Result Performing Organization Address [facility] Co de Phone Number [facility] [address] [place] [phone] * Prothrombin Time-INR (09/01/2024 3:51 PM EST) Prothrombin Time 11.5 10.9 - 12.4 SEC [facility] INTERNATIONAL NORM RATIO 1.0 0.9 - 1.1 [facility] Comment:INTERNATIONAL NORMAL IZED RATIO (INR) [...] ORDERAB LES Final Result Performing Organization Address [facility] Co de Phone Number [facility] [address] [place] [phone] * (ABNORMAL) B Type Natriuretic Peptide (BNP) (09/01/2024 3:51 PM EST) B Type Natriuretic Peptide 104(H) <100 pg/mL [facility] Comment:For those patients w ho are being treated with Natrecor(nesiritide, recombinant BNP), BNP testing should beperformed at least two hours post treatment in order toensure that only endogenous levels of BNP are detected. 09/01/2024 3:51 PM EST 09/01/2024 3:53 PM EST us Generic External Data Provider LAB BLOOD ORDERAB LES Final Result Performing Organization Address [facility] Phone Number [facility] [address] [place] [phone] * Magnesium (09/01/2024 3:51 PM EST) Magnesium 2.1 1.6 - 2.6 mg/dL [facility] 09/01/2024 3:51 PM EST 09/01/2024 3:53 PM EST Generic External Data Provider LAB BLOOD ORDERAB LES Final Result Performing Organization Address [facility] Phone Number [facility] [address] [place] [phone] * Lipase (09/01/2024 3:51 PM EST) Lipase 13 8 - 78 U/L [facility] 09/01/2024 3:51 PM EST 09/01/2024 3:53 PM EST Generic External Data Provider LAB BLOOD ORDERAB LES Final Result Performing Organization Address [facility] Phone Number [facility] [address] [place] [phone] * (ABNORMAL) Hepatic Function Panel (09/01/2024 3:51 PM EST) Bilirubin, Total 0.4 0.0 - 1.0 mg/dL [facility] Bilirubin, Direct 0.1 0.0 - 0.5 mg/dL [facility] Aspartate Amino Transferase 54(H) 5 - 31 U/L [facility] Alanine Aminotransferase 65(H) 0 - 31 U/L [facility] Total Protein 7.7 6.5 - 8.0 g/dL [facility] Albumin Level 3.8 3.5 - 5.0 g/dL [facility] Alkaline Phosphatase 159(H) 39 - 117 U/L [facility] 09/01/2024 3:51 PM EST 09/01/2024 3:53 PM EST us Generic External Data Provider LAB BLOOD ORDERAB LES Final Result [facility] [address] [place] [phone] [phone] * (ABNORMAL) Basic Metabolic Panel (09/01/2024 3:51 PM EST) Sodium 141 135 - 145 mmol/L [facility] Potassium 3.9 3.3 - 5.1 mmol/L [facility] Chloride 110(H) 96 - 108 mmol/L [facility] Carbon Dioxide 26 22 - 29 mmol/L [facility] Anion Gap 9(L) 12 - 20 [facility] Urea Nitrogen (BUN) 12 9 - 16 mg/dL [facility] Creatinine, Serum 0.93 0.5 - 1.4 mg/dL [facility] Creatinine Clr Calc Pharmacy 63.0 [facility] Comment:Provided height and weight: 160.02 cm,78.6 kg.eGFR (calculated from the MDRD study equation) and eCrCl(calculated from the Cockcroft-Gault equation) are based ondifferent parameters and may not yield comparable results.If eCrCl result is absurd, please check patient'sheight/weight. Estimated Glomerular Filt Rate >60 [facility] Comment:Chronic Kidney Disea se: Estimated GFR < 60 mL/min/1.09l5Dmiafe Kidney Disease: Estimated GFR < 15 mL/min/1.73m2 Glucose 112 60 - 115 mg/dL [facility] Calcium 9.5 8.4 - 10.2 mg/dL [facility] 09/01/2024 3:51 PM EST 09/01/2024 3:53 PM EST us Generic External Data Provider LAB BLOOD ORDERAB LES Final Result [facility] [address] [facility] [place] [phone] * XR Chest 2 Views (09/01/2024 1:48 PM EST) Anatomical Region Laterality Modality Chest Radiographic Nina ging 09/01/2024 1:48 PM EST Narrative 09/01/2024 2:23 PM EST ? [facility] ?[address] ?[place] [address] ?XRay Report ? Signed ? Patient: Colon,Milsa ?MR#: [id number] ? : 1965 ?Acct:[id number] ? Age/Sex: 59 / F ?ADM Date: 09/01/24 ? Loc: HO.ED ? Attending Dr: ? Ordering Physician: Angela Reyes ?? Date of Service: 09/01/24 ?? Procedure(s): XR chest 2V ?? Accession Number(s): [id number] ? cc: Angela Reyes; SANDRA VIEIRA NP [...] DD/ 1348 ? TD/TT: 09/01/24 1410 ? Coke Drawer: ? Procedure Note Zelda, Concepción - 09/01/[address] [address] XRay Report Signed Patient: Barrera Max#: [id number] : 1965Acct:[id number] Age/Sex: 59 / FADM Date: 09/01/24 Loc: HO.ED Attending Dr: Ordering Physician: Angela Reyes Date of Service: 09/01/24 Procedure(s): XR chest 2V Accession Number(s): [id number] cc: Angela Reyes; SANDRA VIEIRA NP EXAMINATION: [...] 09/01/24 1420 DD/ 1348 TD/TT: 09/01/24 1410 Coke Drawer: [facility] External Provider IMG XR PROCEDURES Final Result * Influenza B (ID NOW Rapid Molecular) (08/04/2024 9:46 AM EST) Pathologist [facility] Influenza B Negative Negative, Indeterminate [facility] Swab 08/04/2024 9:46 AM EST us Adolfo Bneitez MD POINT OF CARE TEST ENTER/EDIT OR DERABLES Final Result Performing Organization Address [facility] de Phone Number [facility] [address] [place] [phone] * Influenza A (ID NOW Rapid Molecular) (08/04/2024 9:46 AM EST) [facility] Influenza A Negative Negative, Indeterminate [facility] Swab 08/04/2024 9:46 AM EST us Adolfo Benitez MD POINT OF CARE TEST ENTER/EDIT OR DERABLES Final Result Performing Organization Address [facility] Phone Number [facility] [address] [place] [phone] * POCT Rapid COVID Ag (08/04/2024 9:46 AM EST) [facility] Rapid COVID Ag Negative [facility] Swab 08/04/2024 9:46 AM EST us Adolfo Benitez MD POINT OF CARE TEST ENTER/EDIT OR DERABLES Final Result Performing Organization Address [facility] de Phone Number [facility] [address] [place] [phone] * (ABNORMAL) Urinalysis, Complete, with Reflex to Culture (07/24/2024 2:48 PM EST) [facility] Color Urine Dark Yellow [facility] Appearance Urine Cloudy [facility] PH 5.5 5.0 - 9.0 [facility] Glucose Urine UA 100(A) Negative mg/dL [facility] Urine Blood Negative Negative [facility] Specific [place] - Urine 1.025 1.005 - 1.025 [facility] Urine Protein Trace Neg-Trace mg/dL [facility] Urine Ketones Trace Negative mg/dL [facility] Nitrite Urine Negative Negative [facility] Leukocyte Esterase Urine Small (1+)(A) Negative [facility] RBC Urine 0-2 0 - 2 /HPF [facility] Urine WBC 11-20(A) 0 - 5 /HPF [facility] Urine Squamous Epithelial Cell >20 0 - 2 /HPF [facility] CALCIUM OXALATE CRYSTAL, UR Present [facility] Urine Bacteria 4+ None Seen [facility] Hyaline Casts, Urine 3-5 0 - 2 /LPF [facility] Urine 07/24/2024 2:48 PM EST 07/24/2024 6:01 PM EST Narrative [facility] - 07/24/2024 6:55 PM EST Urine, Clean Catch [facility] URINE ORDERABLES Final Resul t [facility] [address] [place] [phone] * BI Mammogram Screening Tomosynthesis Bilateral (07/03/2024 9:53 AM EST) Anatomical Region Laterality Modality Breast Bilateral Mammography 07/03/2024 9:53 AM EST Narrative 07/09/2024 10:57 AM EST ? [facility] [place] ? [address] ?[place] [address] ? Mammography Report ? Signed ? Patient: Colon,Milsa ?MR#: [id number] ? : 1965 ?Acct:[id number] ? Age/Sex: 59 / F ?ADM Date: 12/05/24 ? Loc: HO.MAMMO ? Attending Dr: Herminio Britton MD ? Ordering Physician: Herminio Britton MD ?Results: 1Negativ ?? e ? Date of Service: 07/03/24 ?Follow Up: 1 Year From Orig ?? inal Mammogram ? Procedure(s): MM tomosynthesis screening BI ?? Accession Number(s): [id number] ? cc: SANDRA VIEIRA NP; Herminio Britton [...] by Alysa Faith, DO in OV> ? 07/09/244 ? DD/ 2 ? TD/TT: 07/03/24 1018 ? Coke Drawer: ? Procedure Note Donotsammieter, Image - 07/09/2024 [facility] [address] [place] [address] Mammography Report Signed Patient: Barrera Max#: [id number] : 1965Acct:[id number] Age/Sex: 59 / FADM Date: 07/03/24 Loc: HO.MAMMO Attending Dr: Herminio Britton MD Ordering Physician: Herminio Brittonesults: 1Negativ e Date of Service: 07/03/24Follow Up: 1 Year From Orig inal Mammogram Procedure(s): MM tomosynthesis screening BI Accession Number(s): [id number] cc: SANDRA VIEIRA NP; Herminio Britton MD [...] 07/09/24 1054 DD/ 0953 TD/TT: 07/03/24 1018 Coke Drawer: [facility] External Provider IMG BI PROCEDURES Edited Result - Final * Pap Smear (06/17/2024 10:30 AM EST) 06/17/2024 10:3 0 AM EST 06/18/2024 9:15 AM EST Narrative [facility] - 06/20/2024 9:28 AM EST ----- ------- Name: Colon,Milsa ?Age/Sex: 59/F ? : 1965 Unit#: [id number] ?? Attend Dr: Herminio Britton MD ?Re06/17/24 ?Status: DEP REF ? Location: HO.LNP ?Disch: ? ----- ------- SPEC : [id number] ?RECD: 06/18/24-914 ? STATUS: ??SOUT ? REQ NUM: [id number] ? MILY: 06/17/24-0 ? SUBM DR: Herminio Britton MD ? [...] Copies To: ?? SANDRA VIEIRA NP ?? [facility] ?? [address] ?? [place] [address] ?? [phone] ?? Herminio Britton MD ?? [facility] ?? [address] ?? [place] [address] ?? [phone] ----- ------- Signed (signature on file) Azar AVELINO Franklin (ASCP) 06/20/24 0928 ? ----- ------- ? END OF REPORT ? Generic External Data Provider LAB CYTOLOGY ORDE RABLES Final Result Performing Organization Address [facility] de Phone Number [facility] [address] [place] [phone] * HIV-1/2 Antigen and Antibodies, Fourth Generation, with Reflexes (03/24/2024 3:20 PM EDT) [facility] HIV AB/AG Nonreactive Nonreactive [facility] Comment:HIV-1 p24 Ag and/or HIV-1/HIV-2 Ab not detected.A test result that is nonreactive does not exclude thepossibility of exposure to or infection with HIV-1 and/orHIV-2. Nonreactive results in this assay for individualswith prior exposure to HIV-1 and/or HIV-2 may be due toantigen and antibody levels that are below the limit ofdetection of this assay.The [employer] HIV Ag/Ab Combo assay result andsupplemental assay results should be interpreted inconjunction with the patient's clinical presentation,history and other laboratory results. If the results areinconsistent with clinical evidence, additional testing issuggested to confirm the result. 03/24/2024 3:20 PM EDT 03/24/2024 3:20 PM EDT us Generic External Data Provider LAB BLOOD ORDERAB LES Final Result Performing Organization Address [facility] de Phone Number [facility] [address] [place] [phone] * (ABNORMAL) Albumin, Random Urine W/Creatinine (05/01/2023 11:30 AM EDT) Creatinine, Urine 302.38 mg/dL [facility] Microalbumin Urine 107.0 mg/L H [facility] Microalbum Creatinine Ratio Ur 35.3(H) <30 ug/mg cr [facility] Comment:Albumin/Creatinine R atio Reference Ranges: Normal: < 30 ug/mg creatinine Microalbuminuria: 30 - 300 ug/mg creatinineClinical Albuminuria: > 300 ug/mg creatinine Urine (Urine, Random) 05/01/2023 11:30 AM EDT 05/01/2023 1:17 PM EDT [facility] URINE ORDERABLES Final Resul t Performing Organization Address [facility] de Phone Number [facility] [address] [place] [phone] * (ABNORMAL) Lipid Panel, Standard (05/01/2023 11:30 AM EDT) Triglycerides 189(H) <150 mg/dL [facility] Comment:Desirable Triglyceri de: less than 150 mg/dLBorderline High Triglyceride 150-199 mg/dLHigh Triglyceride: 200-499 mg/dLVery High Triglyceride: greater than or equal to 5OO mg/dL Cholesterol 188 <200 mg/dL [facility] Comment:Desirable Cholestero l: less than 200 mg/dLBorderline High Cholesterol: 200-239 mg/dLHigh Cholesterol: greater than 239 mg/dL LDL Cholesterol Calculated 98 <100 mg/dL [facility] Comment:Desirable LDL: less than 100 mg/dLNear Optimal/Above Optimal LDL: 110- 129 mg/dLBorderline High LDL: 130-159 mg/dLHigh LDL: 160-189 mg/dLVery High LDL: greater than or equal to 190 mg/dL HDL Cholesterol 53 >40 mg/dL [facility] Comment:Desirable HDL: great er than 40 mg/dL Note: This HDL assay may give artificially low results in patients with liver disease. Blood Venous blood specimen / Unknown 05/01/2023 11:30 AM EDT 05/01/2023 1:23 PM EDT Sandra Vieira [facility] BLOOD ORDERABLES Final Resul t Performing Organization Address [facility]/ZIP Co de Phone Number [facility] [address] [place] [phone] * HPV mRNA E6/E7 (05/02/2021 12:00 AM EDT) HPV nRNA E6/E7 Not Detected Not Detected [facility] Comment: Methodology: Collection Analyst-Mediated Amplification This assay detects E6/E7 viral messenger RNA (mRNA) from 14 high-risk HPV types (16,18,31,33,35,39,45,51,52,56,58,59,66,68). ? The analytical performance characteristics of this assay have been determined by [employer]. The modifications have not been cleared or approved by the FDA. This assay has been validated pursuant to the CLIA regulations and is used for clinical purposes. ?? For additional information, please refer to http://education.[employer]/faq/FAA063e8 (This link if provided for information/ educational purposes only.) 05/02/2021 Sandra Vieira ANP LAB BLOOD ORDERABLES Final Resul t [facility] [address] from Last 3 Months or Most Recently Relevant to Health Maintenance Insurance [facility] Care Teams Design Project Manager Relationship Specialty Start Date End Date Sandra Vieira ANP [address] [place] [phone] PCP - General Family Medicine 09/03/20 Rajni García RN [address] [place] [phone] Flotation TenderPrinter Floor Covering Assistant 09/18/24
--- OUTSIDE RECORDS SUMMARY | 2024-09-23 15:30 | XMS_ITS | Encounter Summary ---
Author Organization [facility] Address [address] [place] [address] Care Team Providers Care Senior Validation Engineer Name Role Phone Regina Su DRIVER TRAINEE Primary Care Provider [phone] Reason for Visit * Reason Comments DM Foot Care Heel Pain * Orthopedic (Routine) - Closed Specialty Diagnoses / Procedures Referred By Contact Referred To Contact Podiatry / Orthopaedic Surgery Diagnoses Localized swelling, mass and lump, left lower limb Type 2 diabetes mellitus with diabetic polyneuropathy Procedures AMB Referral to Podiatry. Wanda Bonilla NP [address] [address] Phone: tel:[phone] Mario Robbins DPM [address] [address] Phone: tel: fax: Referral ID Status Reason Start Date Expiration Date V isits Requested Visits Authorized [id number] Closed Consult and Treat 06/11/2024 06/11/2025 6 6 Encounter Details Date Type Department Care Team (Late st Contact Info) Description 09/22/2024 3:30 PM EST Office Visit Orthopedic Surgery - [place] [address] [address] Mario Robbins DPM [address] [address] Mass of left foot (Primary Dx); Dermatophytosis of nail; Pain in toe of right foot; Pain in toe of left foot; Diabetic mononeuropathy simplex (CMS/HCC); Type II diabetes mellitus with peripheral circulatory disorder (CMS/HCC) Social History Tobacco Use Types Packs/Day Years Used Date Smoking Tobacco: Never Assessed Comments Unknown Sex and Gender Information Value Date Recorded Sex Assigned at Not on file Legal Sex Female 3:47 PM EST Gender Identity Not on file Sexual Orientation Not on file documented as of this encounter Last Filed Vital Signs Vital Sign Reading Time Taken Comments Blood Pressure - - Pulse - - Temperature - - Respiratory Rate - - Oxygen Saturation - - Inhaled Oxygen Concentration - - Weight 79.4 kg (175 lb) 09/22/2024 2:52 PM EST Height 160 cm (5' 3 ) 09/22/2024 2:52 PM EST Body Mass Index 31 09/22/2024 2:52 PM EST documented in this encounter Progress Notes * Mario Robbins DPM - 09/22/2024 3:30 PM EST Last PCP visit:Referring MD: Wanda Bonilla NP 09/08/24 IDENTIFIER: Dong is a 59 y.o. year old female who presents for consultation. CC: Foot pain HPI: Patient presents with multiple complaints reports a type II diabetic reports that she has a soft tissue mass of her left heel she states she has had this on other parts of her body they were removed diagnosis lipomas states that been slowly growing painful achy states she like to know if it can be removed also reports her nails are longer painful thickened she is a type II diabetic reports numbness burning tingling to her feet last A1c was 7.4 ROS: GENERAL: Pt denies nausea, fever, vomiting, chills, or shortness of breath. Pt in NAD. CARDIOLOGY: pt denies chest pain, palpitations LUNGS: pt denies shortness of breath MUSCULOSKELETAL: See HPI, otherwise no joint pain or swelling, back pain, or muscle pain. 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 ALLERGIES: Allergies Allergen Reactions Morphine PHYSICAL EXAM: Visit Vitals Ht 1.6 m (63 ) Wt 79.4 kg (175 lb) BMI 31.00 kg/m?? BSA 1.83 m?? PODIATRIC EXAMINATION: GENERAL: Patient appears well nourished, with NAD. VASCULAR: Dorsalis pedis pulses are 1/4 bilaterally and Posterior tibial pulses are 1/4 bilaterally. Capillary filling time within normal limits the digits. No pallor on elevation or rubor on dependency. No varicosities. Denies rest pain or claudication pain. NEUROLOGICAL: Sharp/dull sensation diminished, protective sensation intact 10/10 with 5.07 semmes paola bilaterally, vibratory sensation with tuning fork intact to the tibial tuberosity. ORTHOPEDIC: Good muscle strength 5/5 of all flexors and extensors. Dorsi flexion of ankle ,10 degrees, plantar flexion WNL. No muscle atrophy. DERMATOLOGICAL:. Toenails: Left Toenail(s) 1-5: Crumbling upon debridement, subungual debris, discoloration, dystrophy, elongation, mycotic appearance, onychomycosis, pain and thickening. Right Toenail(s) 1-5: Crumbling upon debridement, subungual debris, discoloration, dystrophy, elongation, mycotic appearance, onychomycosis, pain and thickening. Annular scaling bilateral feet moccasin distribution Skin thinning texture shiny appearance diffuse hyperpigmentation bilaterally pedal hair decreased Soft tissue mass left foot heel measures 2.3 cm x 1.7 cm rased non tender non firm BIOMECHANICS: Ankle ROM WNL, STJ ROM wnl, MTJ ROM wnl, 1st MPJ ROM wnl. IMAGING: IMPRESSION: 1. Mass of left foot 2. Dermatophytosis of nail 3. Pain in toe of right foot 4. Pain in toe of left foot 5. Diabetic mononeuropathy simplex (CMS/HCC) 6. Type II diabetes mellitus with peripheral circulatory disorder (CMS/HCC) PLAN: Pt was seen and examined, history reviewed. X-ray order left foot 3 views Discussed further workup including MRI Soft tissue mass measurements taken During today???s visit we discussed at great length the etiology, prognosis, and treatment options for the patient???s condition. Risks and benefits of operative and non operative treatment options were discussed. Treatment options for surgical excision soft tissue mass left foot correction were discussed, non-operative treatment would involve monitoring accommodative shoe gear. Surgery has added risks including but not limited to infection, incision pain, neuritis or numbness reoccurance of deformity, scar tissue contracture, worsening of deformity and loss of limb or life. surgical excision soft tissue mass left foot healing was discussed in relation to operative treatment. Recovery and post operative immobilization was discussed based on the various treatment options. Weight bearing status: NWB x 4 weeks followed Pain medication: Tylenol Oxycodone Discussed with patient regarding proper glucose control, exercise, and diet. Explained to patient proper shoe gear, and importance of daily foot checks. I reviewed neuropathy and why it occurs in diabetics. I educated the patient on proper blood sugar control and the importance of an HgBA1c of less than 7.0%. I reviewed the signs and symptoms of neuropathy with the patient Pt to return for another evaluation in 3 months. Debridement of mycotic toenails 6-10: Verbal informed consent was obtained from the patient. Greater than 6 nails were aseptically debrided in thickness and length with nail nippers Mario Robbins DPM documented in this encounter Plan of Treatment Upcoming Encounters Date Type Department Care Team (Late st Contact Info) Description 12/23/2024 11:00 AM EDT Office Visit Orthopedic Surgery - [place] [address] [phone] Mario Robbins DPM [address] [address] documented as of this encounter Visit Diagnoses Diagnosis Mass of left foot- Primary Dermatophytosis of nail Pain in toe of right foot Pain in soft tissues of limb Pain in toe of left foot Pain in soft tissues of limb Diabetic mononeuropathy simplex (CMS/HCC) Type II or unspecified type diabetes mellitus with neurological manifestations, not stated as uncontrolled Type II diabetes mellitus with peripheral circulatory disorder (CMS/HCC) Type II or unspecified type diabetes mellitus with peripheral circulatory disorders, not stated as uncontrolled documented in this encounter Care Teams Senior Validation Engineer Relationship Specialty Start Date End Date Regina Su FNP [address] [place] [address] PCP - General Nurse Practitioner 07/11/24 documented as of this encounter
--- OUTSIDE RECORDS SUMMARY | 2024-09-23 15:30 | XMS_ITS | Encounter Summary ---
Author Organization [employer] Address [address] [place] [address] Care Team Providers Care Field Service Technician Poultry Name Role Phone Sandra Vieira Primary Care Provider Encounter Details Date Type Department Care Team (Late st Contact Info) Description 08/29/2024 Orders Only [facility] External Provider, [facility] Social History Tobacco Use Types Packs/Day [...] Description 10/21/2024 10:00 AM EDT Office Visit [facility] [address] [place] [address] Shivani Small, XIMENAM [address] [place] [address] 12/08/2024 1:00 PM EDT Office Visit [facility] [address] [place] [address] Smiley Scott, OD [address] [place] [address] documented as of this encounter Procedures Procedure Name Priority Date/Time Associated Diagnosis Comments US ABDOMEN LIMITED Routine 09/03/2024 9: 53 AM EST documented in this encounter Results * US Abdomen Limited (09/03/2024 9:53 AM EST) Anatomical Region Laterality Modality Abdomen Ultrasound 09/03/2024 9:53 AM EST Narrative 09/03/2024 9:55 AM EST ? [facility] ?[address] ?[place] [address] ? Ultrasound Report ? Signed ? Patient: Colon,Milsa ?MR#: [id number] ? : 1965 ?Acct:[id number] ? Age/Sex: 59 / F ?ADM Date: 01/31/25 ? Loc: HO.US ? Attending Dr: Ashlie Maldonado MD ? Ordering Physician: Ashlie Maldonado MD ?? Date of Service: 08/29/24 ?? Procedure(s): US abdomen limited ?? Accession Number(s): [id number] ? cc: Ashlie Maldonado MD; SANDRA VIEIRA [...] ? DD/ 2 ? TD/TT: 09/03/24952 ? Cae Engineer: ? Procedure Note Concepción Ndiaye - 09/03/2024 [place] [address] Ultrasound Report Signed Patient: Barrera Max#: [id number] : 1965Acct:[id number] Age/Sex: 59 / FADM Date: 08/29/24 Loc: HO.US Attending Dr: Ashlie Maldonado MD Ordering Physician: Ashlie Maldonado MD Date of Service: 08/29/24 Procedure(s): US abdomen limited Accession Number(s): [id number] cc: Ashlie Maldonado MD; SANDRA VIEIRA NP [...] in OV> 09/03/2455 DD/ 2 TD/TT: 09/03/24952 Cae Engineer: [facility] External Provider IMG US PROCEDURES Edited Result - Final documented in this encounter Visit Diagnoses Not on filedocumented in this encounter Additional Health Concerns Assessment Noted Time PHQ-9 Depression Total Score: 5 11/23/19 24 1:33 PM EDT documented as of this encounter Care Teams Field Service Technician Poultry Relationship Specialty Start Date End Date Sandra Vieria ANP [address] [place] [address] PCP - General Family Medicine 09/03/20 documented as of this encounter
--- OUTSIDE RECORDS SUMMARY | 2024-09-23 15:30 | XMS_ITS | Encounter Summary ---
Author Organization [employer] Address [address] [facility] [address] [place] [address] Care Team Providers Care Supervisor Customer Records Division Name Role Phone Wanda Bonilla Primary Care Provider [phone] Rajin García RN Unavailable [phone] Reason for Visit * Reason Onset Date Comments Hospital Follow-up 11/15/2023 Encounter Details Date Type Department Care Team ([facility] st Contact Info) Description 11/15/2023 Telephone [facility] [address] [place] [address] Wanda Bonilla ANP 230 [place] [address] Hospital Follow-up Social History Tobacco Use Types [...] pt requesting a HDF appt. Hospital: [facility] Date of admission: 11/09 Discharge date: 11/13 Diagnosed: Neuropathy documented in this encounter Plan of Treatment Upcoming Encounters Date Type Department Care Team (Late st Contact Info) Description 10/21/2024 10:00 AM EDT Office Visit [facility] [address] [place] [address] Shivani Small CNM [address] [place] [address] 12/08/2024 1:00 PM EDT Office Visit [facility] [address] [place] [address] Tyler, Smiley, OD [address] [place] [address] documented as of this encounter Visit Diagnoses Not on filedocumented in this encounter Additional Health Concerns Assessment Noted Time PHQ-9 Depression Total Score: 0 08/25/19 23 1:48 PM EST documented as of this encounter Care Teams Supervisor Customer Records Division Relationship Specialty Start Date End Date Wanda Bonilla ANP [address] [place] [address] PCP - General Family Medicine 09/03/20 Rajni García RN [address] [place] [address] [employer]er BlastingClay Grinder 09/18/24 documented as of this encounter
--- OUTSIDE RECORDS SUMMARY | 2024-09-23 15:30 | XMS_ITS | Encounter Summary ---
Author Organization [employer] Address [address] [facility] [address] 7[address] [place] [address] Care Team Providers Care Powerhouse Electrician Name Role Phone Sandra Vieira Primary Care Provider [phone] Encounter Details Date Type Department Care Team (Late st Contact Info) Description 09/01/2024 Orders Only [facility] External Provider, [facility] Social History Tobacco Use Types Packs/Day [...] Description 10/21/2024 10:00 AM EDT Office Visit [facility] MEDICINE [address] [place], [place] [phone] Shivani Small, XIMENAM [address] [place] [address] 12/08/2024 1:00 PM EDT Office Visit [facility] OPTOMETRY [address] [place], [place] [phone] TylerSmiley rowe, OD [address] [place] [address] documented as of this encounter Procedures Procedure [...] HIGH SENSITIVITY 142.2(HH) <3.5 - 17.0 ng/L [facility] Comment:Critical value for t est(s): TROP-IHS Results called to em back by:BOWEN Person calling: DOROTHY Date:07-73-04Qphb:1839The Jimenes high sensitivity Troponin-I results should beused in conjunction with other diagnostic information suchas ECG, clinical observations and information, and patientsymptoms to aid in the diagnosis of [place]. 09/01/2024 6:13 PM EST 09/01/2024 6:17 PM EST us Generic External Data Provider LAB BLOOD ORDERAB LES Final Result [facility] [address] [place] [phone] * Urinalysis w/reflex microscopic (09/01/2024 6:13 PM EST) Color Urine Yellow [facility] Appearance Urine Cloudy [facility] PH 7.0 5.0 - 9.0 [facility] Glucose Urine UA Negative Negative mg/dL [facility] Urine Blood Negative Negative [facility] Specific Jonancy - Urine 1.015 1.005 - 1.025 [facility] Urine Protein Negative Neg-Trace mg/dL [facility] Urine Ketones Negative Negative mg/dL [facility] Nitrite Urine Negative Negative [facility] Leukocyte Esterase Urine Negative Negative [facility] 09/01/2024 6:13 PM EST 09/01/2024 6:17 PM EST Narrative [facility] - 09/01/2024 6:25 PM EST [id number], Clean Catch Generic External Data Provider LAB URINE ORDERAB LES Final Result Performing Organization Address [facility] de Phone Number [facility] [address] [place] [address] [phone] * D Dimer High Sensitivity (09/01/2024 3:51 PM EST) [facility] D Dimer High Sensitivity <150 NG/ML [facility] Comment:D-DIMER HS REFERENCE RANGENote: Our [...] ORDERAB LES Final Result Performing Organization Address [facility] Co de Phone Number [facility] [address] [place] [address] [phone] * SARS-CoV-2 RNA, Influenza A/B, and RSV RNA, Ql NAAT (09/01/2024 3:51 PM EST) [facility] Influenza A PCR NEGATIVE Negative [facility] Influenza B PCR NEGATIVE Negative [facility] Resp Syncy Virus RNA Qual PCR NEGATIVE Negative [facility] SARS COV2 PCR NEGATIVE Negative [facility] Comment:All test results mus t [...] use by authorized laboratories.Testing performed on the fypio GeneXpert utilizingreal-time RT-PCR.All SARS CoV2 and positive influenza A/B results arereported to [facility]. 09/01/2024 3:51 PM EST 09/01/2024 3:53 PM EST Generic External Data Provider LAB MICROBIOLOGY - GENERAL ORDERABLES Final Result Performing Organization Address [facility] Co de Phone Number [facility] [address] [place] [phone] * (ABNORMAL) High Sensitivity Troponin I (09/01/2024 3:51 PM EST) Pathologist [facility] TROPONIN I HIGH SENSITIVITY 143.5(HH) <3.5 - 17.0 ng/L [facility] Comment:Critical value for t est(s):TROP-IHS Results called to em back by: RENNY Person calling:KUS Date:05-14-73Duvs:1627The Jimenes high sensitivity Troponin-I results should beused in conjunction with other diagnostic information suchas ECG, clinical observations and information, and patientsymptoms to aid in the diagnosis of [place]. 09/01/2024 3:51 PM EST 09/01/2024 3:53 PM EST Generic External Data Provider LAB BLOOD ORDERAB LES Final Result Performing Organization Address [facility]/ZIP Co de Phone Number [facility] [address] [place] [address] [phone] * Lipase (09/01/2024 3:51 PM EST) Lipase 13 8 - 78 U/L [facility] 09/01/2024 3:51 PM EST 09/01/2024 3:53 PM EST Generic External Data Provider LAB BLOOD ORDERAB LES Final Result Performing Organization Address [facility]/ZIP Co de Phone Number [facility] [address] [place] [address] [phone] * Magnesium (09/01/2024 3:51 PM EST) [facility] Magnesium 2.1 1.6 - 2.6 mg/dL [facility] 09/01/2024 3:51 PM EST 09/01/2024 3:53 PM EST Generic External Data Provider LAB BLOOD ORDERAB LES Final Result Performing Organization Address [facility] de Phone Number [facility] [address] [place] [address] [phone] * (ABNORMAL) Basic Metabolic Panel (09/01/2024 3:51 PM EST) [facility] Sodium 141 135 - 145 mmol/L [facility] Potassium 3.9 3.3 - 5.1 mmol/L [facility] Chloride 110(H) 96 - 108 mmol/L [facility] Carbon Dioxide 26 22 - 29 mmol/L [facility] Anion Gap 9(L) 12 - 20 [facility] Urea Nitrogen (BUN) 12 9 - 16 mg/dL [facility] Creatinine, Serum 0.93 0.5 - 1.4 mg/dL [facility] Creatinine Clr Calc Pharmacy 63.0 [facility] Comment:Provided height and weight: 160.02 cm,78.6 kg.eGFR (calculated from the MDRD study equation) and eCrCl(calculated from the Cockcroft-Gault equation) are based ondifferent parameters and may not yield comparable results.If eCrCl result is absurd, please check patient'sheight/weight. Estimated Glomerular Filt Rate >60 [facility] Comment:Chronic Kidney Disea se: Estimated GFR < 60 mL/min/1.10c3Vqsowh Kidney Disease: Estimated GFR < 15 mL/min/1.73m2 Glucose 112 60 - 115 mg/dL [facility] Calcium 9.5 8.4 - 10.2 mg/dL [facility] 09/01/2024 3:51 PM EST 09/01/2024 3:53 PM EST us Generic External Data Provider LAB BLOOD ORDERAB LES Final Result Performing Organization Address [facility]/ZIP Co de Phone Number [facility] [address] [place] [phone] * (ABNORMAL) Hepatic Function Panel (09/01/2024 3:51 PM EST) Bilirubin, Total 0.4 0.0 - 1.0 mg/dL [facility] Bilirubin, Direct 0.1 0.0 - 0.5 mg/dL [facility] Aspartate Amino Transferase 54(H) 5 - 31 U/L [facility] Alanine Aminotransferase 65(H) 0 - 31 U/L [facility] Total Protein 7.7 6.5 - 8.0 g/dL [facility] Albumin Level 3.8 3.5 - 5.0 g/dL [facility] Alkaline Phosphatase 159(H) 39 - 117 U/L [facility] 09/01/2024 3:51 PM EST 09/01/2024 3:53 PM EST us Generic External Data Provider LAB BLOOD ORDERAB LES Final Result Performing Organization Address [facility] Co de Phone Number [facility] [address] [place] [address] [phone] * (ABNORMAL) B Type Natriuretic Peptide (BNP) (09/01/2024 3:51 PM EST) B Type Natriuretic Peptide 104(H) <100 pg/mL [facility] Comment:For those patients w ho are being treated with Natrecor(nesiritide, recombinant BNP), BNP testing should beperformed at least two hours post treatment in order toensure that only endogenous levels of BNP are detected. 09/01/2024 3:51 PM EST 09/01/2024 3:53 PM EST Generic External Data Provider LAB BLOOD ORDERAB LES Final Result Performing Organization Address [facility] de Phone Number [facility] [address] [place] [address] [phone] * Prothrombin Time-INR (09/01/2024 3:51 PM EST) Prothrombin Time 11.5 10.9 - 12.4 SEC [facility] INTERNATIONAL NORM RATIO 1.0 0.9 - 1.1 [facility] Comment:INTERNATIONAL NORMAL IZED RATIO (INR) [...] 3:51 PM EST 09/01/2024 3:53 PM EST [employer] External Data Provider LAB BLOOD ORDERAB LES Final Result Performing Organization Address [facility] de Phone Number [facility] [address] [place] [address] [phone] * (ABNORMAL) CBC auto differential (09/01/2024 3:51 PM EST) White Blood Count 4.9 4.8 - 10.8 X10*3/uL [facility] Red Blood Count 4.25 4.20 - 5.50 X10*6/uL [facility] Hemoglobin 12.0 12.0 - 16.0 g/dl [facility] Hematocrit 34.9(L) 37.0 - 47.0 % [facility] Mean Corpuscular Volume 82.1 80.0 - 98.0 fL [facility] Mean Corpuscular Hemoglobin 28.2 27.0 - 33.0 pg [facility] Mean Corpuscular HGB Conc 34.4 31.0 - 35.0 g/dl [facility] Red Cell Distribution Width 12.6 11.0 - 16.0 % [facility] Platelet Count 110(L) 160 - 400 X10*3/uL [facility] Mean Platelet Volume 10.3 9.4 - 12.3 fL [facility] Neutrophils Percent Auto 61.2 45 - 73 % [facility] Imm Gran Pct Auto 0.2 0.0 - 0.4 % [facility] Lymphocytes Percent Auto 26.4 20 - 40 % [facility] Monocytes Percent Auto 11.0 2 - 11 % [facility] Eosinophils Percent Auto 1.0 0 - 4 % [facility] Basophils Percent Auto 0.2 0 - 2 % [facility] NRBC Pct Auto 0.0 0.0 - 0.2 /100WBC [facility] Neutrophils Absolute Auto 3.0 2.0 - 8.3 x10*3/uL [facility] Imm Gran Abs Auto 0.01 0.00 - 0.03 X10*3/uL [facility] Lymphocytes Absolute Auto 1.3 1.2 - 4.9 X10*3/uL [facility] Monocytes Absolute Auto 0.5 0.1 - 1.2 X10*3/uL [facility] Eosinophils Absolute Auto 0.1 0.0 - 0.4 X10*3/uL [facility] Basophils Absolute Auto 0.0 0.0 - 0.2 X10*3/uL [facility] NRBC Abs Auto 0.000 0.0 - 0.012 X10*3/uL [facility] 09/01/2024 3:51 PM EST 09/01/2024 3:53 PM EST us Generic External Data Provider LAB BLOOD ORDERAB LES Final Result [facility] [address] [facility] [place] [phone] * XR Chest 2 Views (09/01/2024 1:48 PM EST) Anatomical Region Laterality Modality Chest Radiographic Nina ging 09/01/2024 1:48 PM EST Narrative 09/01/2024 2:23 PM EST ? [facility] ?[address] ?[place] [address] ?XRay Report ? Signed ? Patient: Colon,Milsa ?MR#: [id number] ? : 1965 ?Acct:[id number] ? Age/Sex: 59 / F ?ADM Date: 09/01/24 ? Loc: HO.ED ? Attending Dr: ? Ordering Physician: Angela Reyes ?? Date of Service: 09/01/24 ?? Procedure(s): XR chest 2V ?? Accession Number(s): [id number] ? cc: Angela Reyes; SANDRA VIEIRA NP [...] DD/ 1348 ? TD/TT: 09/01/24 1410 ? Ophthalmic Medical Technologist: ? Procedure Note Donotuseinterpreter, Image - 09/01/[address] [address] XRay Report Signed Patient: Barrera Max#: [id number] : 1965Acct:[id number] Age/Sex: 59 / FADM Date: 09/01/24 Loc: HO.ED Attending Dr: Ordering Physician: Angela Reyes Date of Service: 09/01/24 Procedure(s): XR chest 2V Accession Number(s): [id number] cc: Angela Reyes; SANDRA VIEIRA NP EXAMINATION: [...] by: Mundo England MD 09/01/2024 02:20 PM [facility] Dictated By: Mundo England MD Signed By: <Electronically signed by Mundo England MD in OV> 09/01/24 1420 DD/ 1348 TD/TT: 09/01/24 1410 Ophthalmic Medical Technologist: [facility] External Provider IMG XR PROCEDURES Final Result documented in this encounter Visit Diagnoses Not on filedocumented in this encounter Additional Health Concerns Assessment Noted Time PHQ-9 Depression Total Score: 5 11/23/19 24 1:33 PM EDT documented as of this encounter Care Teams Powerhouse Electrician Relationship Specialty Start Date End Date Sandra Vieira ANP [address] [place] [address] PCP - General Family Medicine 09/03/20 documented as of this encounter
--- OUTSIDE RECORDS SUMMARY | 2024-09-23 15:30 | XMS_ITS | Encounter Summary ---
Author Organization [employer] Address [address] [place] [address] 7t [place] [address] Care Team Providers Care Treating Engineer Helper Name Role Phone Bonilla Wanda HARO Primary Care Provider [phone] Rajni García RN Unavailable [phone] Encounter Details Date Type Department Care Team (Late st Contact Info) Description 08/09/2022 Orders Only [facility] MEDICINE [address] [place] [address] Shanna Lopez LPN Social History Tobacco Use [...] Description 10/21/2024 10:00 AM EDT Office Visit [facility] MEDICINE [address] [place] [address] Shivani Small CNM [address] [place] [address] 12/08/2024 1:00 PM EDT Office Visit [facility] OPTOMETRY [address] [place] [address] Tyler, Smiley, OD [address] [place] [address] documented as of this encounter Visit Diagnoses Not on filedocumented in this encounter Care Teams Treating Engineer Helper Relationship Specialty Start Date End Date Wanda Bonilla ANP [address] [place] [address] PCP - General Family Medicine 09/03/20 Rajni García RN [address] [place] [address] [employer] DirectorJava Programmer 09/18/24 documented as of this encounter
--- OUTSIDE RECORDS SUMMARY | 2024-09-23 15:30 | XMS_ITS | Encounter Summary ---
Author Organization [employer] Address [address] [facility] 7t [place] [address] Care Team Providers Care Industrial Engineering Manager Name Role Phone Wanda Bonilla Primary Care Provider [phone] Rajni García RN Unavailable [phone] Reason for Visit * Reason Comments Med Refill Encounter Details Date Type Department Care Team (Late Contact Info) Description 01/11/2023 Refill [facility] MEDICINE [address] [place] [address] Wanda Bonilla ANP [address] [place] [address] Social History Tobacco Use Types Packs/Day Years [...] Description 10/21/2024 10:00 AM EDT Office Visit [facility] MEDICINE [address] [place] [address] Shivani Small CNM [address] [place] [address] 12/08/2024 1:00 PM EDT Office Visit [facility] OPTOMETRY [address] [place] [address] Smiley Scott, OD [address] [place] [address] documented as of this encounter Visit Diagnoses Not on filedocumented in this encounter Additional Health Concerns Assessment Noted Time PHQ-9 Depression Total Score: 0 08/25/19 23 1:48 PM EST documented as of this encounter Care Teams Industrial Engineering Manager Relationship Specialty Start Date End Date Wanda Bonilla ANP [address] [place] [address] PCP - General Family Medicine 09/03/20 Rajni García, TIM [address] [place] [address] Finish PainterSorting Machine Attendant 09/18/24 documented as of this encounter
--- OUTSIDE RECORDS SUMMARY | 2024-09-23 15:30 | XMS_ITS | Encounter Summary ---
Author Organization [employer] Address [address] [facility] 7t [place] [address] Care Team Providers Care Top Frame Fitter Name Role Phone Wanda Bonilla Primary Care Provider [phone] Reason for Visit * Reason Comments Med Refill Encounter Details Date Type Department Care Team ([facility] st Contact Info) Description 08/26/2024 Refill [facility] MEDICINE [address] [place] [address] Wanda Bonilla ANP [address] [place] [address] Primary hypertension Social History Tobacco Use Types [...] Office Visit [facility] MEDICINE [address] [place] [address] Shivani Small CNM [address] [place] [address] 12/08/2024 1:00 PM EDT Office Visit [facility] OPTOMETRY [address] [place] [address] Tyler, Smiley, OD [address] [place] [address] documented as of this encounter Visit Diagnoses Diagnosis Primary hypertension Unspecified essential hypertension documented in this encounter Additional Health Concerns Assessment Noted Time PHQ-9 Depression Total Score: 5 11/23/19 24 1:33 PM EDT documented as of this encounter Care Teams Top Frame Fitter Relationship Specialty Start Date End Date Wanda Bonilla ANP [address] [place] [address] PCP - General Family Medicine 09/03/20 documented as of this encounter
--- OUTSIDE RECORDS SUMMARY | 2024-09-23 15:30 | XMS_ITS | Encounter Summary ---
Author Organization [employer] Address [address] [facility] [address] 7t [place] [address] Care Team Providers Care Investigator Narcotics Name Role Phone Wanda Bonilla Primary Care Provider [phone] Reason for Visit * Reason Onset Date Comments Care Management 09/02/2024 [facility]- chart revi ew Encounter Details Date Type Department Care Team ([facility] st Contact Info) Description 09/02/2024 Telephone [facility] MEDICINE [address] [place] [address] Rajni García RN [address] [place], [place] [phone] Care Management ([facility]- chart review) Social History Tobacco [...] and dysuria. Specialists include Orthopedic Surgery, Podiatry, [facility] Urology, [facility] ESE TEACHER, Infectious Disease, Rheumatology, ENT, Optometry, [facility], Dermatology, and Vascular Surgery. ED visits within the last 12 months include [facility] ED 09/01/24. Last appointment in PCP office on 08/29/24. Next appointment scheduled for 09/22/24 at 3:30pm with Podiatry and 09/25/24 at2:00pm with PCP for follow up. documented in this encounter Plan of Treatment Upcoming Encounters Date Type Department Care Team (Perri Contact Info) Description 10/21/2024 10:00 AM EDT Office Visit [facility] MEDICINE [address] [place] [address] Shivani Small CNM [address] [place] [address] 12/08/2024 1:00 PM EDT Office Visit [facility] OPTOMETRY [address] [place] [address] Smiley Scott, OD [address] [place] [address] documented as of this encounter Visit Diagnoses Not on filedocumented in this encounter Additional Health Concerns Assessment Noted Time PHQ-9 Depression Total Score: 5 11/23/19 24 1:33 PM EDT documented as of this encounter Care Teams Investigator Narcotics Relationship Specialty Start Date End Date Wanda Bonilla ANP [address] [place], [place] [phone] PCP - General Family Medicine 09/03/20 documented as of this encounter
--- OUTSIDE RECORDS SUMMARY | 2024-09-23 15:30 | XMS_ITS | Encounter Summary ---
Author Organization [employer] Address [address] [facility] 7t [place] [address] Care Team Providers Care Scientific Database Curator Name Role Phone Wanda Bonilla Primary Care Provider [phone] Reason for Visit * Reason Onset Date Comments ER Follow-up 09/03/2024 Encounter Details Date Type Department Care Team ([facility] Contact Info) Description 09/03/2024 Telephone [facility] MEDICINE [address] [place] [address] Wanda Bonilla ANP [address] [place] [address] ER Follow-up Social History Tobacco Use Types [...] EST Per chart review [place] [facility] [place] for GOMEZ and Right sided CP. [...] sx do not improve. Call returned to [facility] via [employer] Program Scheduler as this medical technical writer is working remote to triage below. No answer, LVM to return call to [facility] prn. No wellhead pumper needed as this medical technical writer speaks Serbian. * Telephone Encounter - Antonio Haddad - 09/03/2024 9:47 AM EST Patient calling to report ED visit on : Date: 09/02/24 Hospital: [facility] Seen for: Chest Pain Symptomatic Yes *if yes message should go to Triage Symptom: Chest Pain - Adult Outcome: Transfer to a nurse or provider NOW! Reason: Severe pain now Please contact pt at [phone]. (Serbian Speaker) documented in this encounter Plan of Treatment Upcoming Encounters Date Type Department Care Team (Late st Contact Info) Description 10/21/2024 10:00 AM EDT Office Visit [facility] MEDICINE [address] [place] [address] Shivani Small CNM [address] [place] [address] 12/08/2024 1:00 PM EDT Office Visit [facility] OPTOMETRY [address] [place], [place] [phone] Smiley Scott, OD [address] [place] [address] documented as of this encounter Visit Diagnoses Not on filedocumented in this encounter Additional Health Concerns Assessment Noted Time PHQ-9 Depression Total Score: 5 11/23/19 24 1:33 PM EDT documented as of this encounter Care Teams Scientific Database Curator Relationship Specialty Start Date End Date Wanda Bonilla ANP [address] [place], [place] [phone] PCP - General Family Medicine 09/03/20 documented as of this encounter
--- OUTSIDE RECORDS SUMMARY | 2024-09-23 15:30 | XMS_ITS | Encounter Summary ---
Author Organization [employer] Address [address] [facility] 7t [place] [address] Care Team Providers Care Firmware Test Engineer Name Role Phone Wanda Bonilla Primary Care Provider [phone] Rajni García RN Unavailable [phone] Reason for Visit * Reason Onset Date Comments Med Refill 08/28/2023 Encounter Details Date Type Department Care Team ([facility] st Contact Info) Description 08/28/2023 Telephone [facility] MEDICINE [address] [place] [address] Wanda Bonilla ANP [address] [place] [address] Med Refill Social History Tobacco Use Types [...] MG/1.5ML solution pen-injector To be sent to: [facility] documented in this encounter Plan of Treatment Upcoming Encounters Date Type Department Care Team (Late st Contact Info) Description 10/21/2024 10:00 AM EDT Office Visit [facility] MEDICINE [address] [place] [address] Shivani Small CNM [address] [place] [address] 12/08/2024 1:00 PM EDT Office Visit [facility] OPTOMETRY [address] [place] [address] Smiley Scott, OD [address] [place] [address] documented as of this encounter Visit Diagnoses Not on filedocumented in this encounter Additional Health Concerns Assessment Noted Time PHQ-9 Depression Total Score: 0 08/25/19 23 1:48 PM EST documented as of this encounter Care Teams Firmware Test Engineer Relationship Specialty Start Date End Date Wanda Bonilla ANP [address] [place] [address] PCP - General Family Medicine 09/03/20 Rajni García RN [address] [place] [address] Outdoor Adventure LeaderEmergency Worker 09/18/24 documented as of this encounter
--- OUTSIDE RECORDS SUMMARY | 2024-09-23 15:30 | XMS_ITS | Encounter Summary ---
Author Organization [employer] Address [address] [facility] 7t [place] [address] Care Team Providers Care Pasting Inspector Name Role Phone Wanda Bonilla Primary Care Provider [phone] Rajni García RN Unavailable [phone] Reason for Visit * Reason Onset Date Comments Appointment Request 06/12/2023 Encounter Details Date Type Department Care Team ([facility] Contact Info) Description 06/12/2023 Telephone [facility] MEDICINE [address] [place] [address] Wanda Bonilla ANP 230 [place] [address] Appointment Request Social History Tobacco Use Types [...] 10/21/2024 10:00 AM EDT Office Visit [facility] MEDICINE [address] [place] [address] Shivani Small CNM 230 [place] [address] 12/08/2024 1:00 PM EDT Office Visit [facility] OPTOMETRY [address] [place] [address] Tyler, Smiley, OD 230 [place] [address] documented as of this encounter Visit Diagnoses Not on filedocumented in this encounter Additional Health Concerns Assessment Noted Time PHQ-9 Depression Total Score: 0 08/25/19 23 1:48 PM EST documented as of this encounter Care Teams Pasting Inspector Relationship Specialty Start Date End Date Wanda Bonilla ANP 230 [place] [address] PCP - General Family Medicine 09/03/20 Rajni García RN [address] [place] [address] Tubing Mill SetterTeacher Visually Impaired 09/18/24 documented as of this encounter
--- OUTSIDE RECORDS SUMMARY | 2024-09-23 15:30 | XMS_ITS | Encounter Summary ---
Author Organization [employer] Address [address] [facility] 7t [place] [address] Care Team Providers Care Human Resource Consultant Name Role Phone Wanda Bonilla Primary Care Provider [phone] Rajni García RN Unavailable [phone] Reason for Visit * Reason Onset Date Comments Referral 08/30/2022 Encounter Details Date Type Department Care Team ([facility] st Contact Info) Description 08/30/2022 Telephone [facility] MEDICINE 230 [place] [address] Wanda Bonilla ANP 230 [place] [address] Referral Social History Tobacco Use Types Packs/Day [...] see a neurologist Please contact pt at [phone] documented in this encounter Plan of Treatment Upcoming Encounters Date Type Department Care Team (Late st Contact Info) Description 10/21/2024 10:00 AM EDT Office Visit [facility] MEDICINE [address] [place] [address] Shivani Small CNM [address] [place] [address] 12/08/2024 1:00 PM EDT Office Visit [facility] OPTOMETRY [address] [place] [address] Tyler, Smiley, OD 230 [place] [address] documented as of this encounter Visit Diagnoses Not on filedocumented in this encounter Additional Health Concerns Assessment Noted Time PHQ-9 Depression Total Score: 0 08/25/19 23 1:48 PM EST documented as of this encounter Care Teams Human Resource Consultant Relationship Specialty Start Date End Date Wanda Bonilla ANP 230 [place] [address] PCP - General Family Medicine 09/03/20 Rajni García RN [address] [place] [address] Supervising DeputyPerishable Freight Inspector 09/18/24 documented as of this encounter
--- OUTSIDE RECORDS SUMMARY | 2024-09-23 15:30 | XMS_ITS | Encounter Summary ---
Author Organization [employer] Address 75 [facility] 7t [place] [address] Care Team Providers Care Steam Hoist Operator Name Role Phone Wanda Bonilla Primary Care Provider Rajni García RN Unavailable [phone] Encounter Details Date Type Department Care Team ([facility] st Contact Info) Description 08/28/2023 Orders Only [facility] MEDICINE [address] [place] [address] Wanda Bonilla ANP [address] [place] [address] Social History Tobacco Use Types Packs/Day Years [...] Description 10/21/2024 10:00 AM EDT Office Visit [facility] MEDICINE [address] [place] [address] Shivani Small CNM 230 [place] [address] 12/08/2024 1:00 PM EDT Office Visit [facility] OPTOMETRY [address] [place] [address] Tyler, Smiley, OD 230 [place] [address] documented as of this encounter Visit Diagnoses Not on filedocumented in this encounter Additional Health Concerns Assessment Noted Time PHQ-9 Depression Total Score: 0 08/25/19 23 1:48 PM EST documented as of this encounter Care Teams Steam Hoist Operator Relationship Specialty Start Date End Date Wanda Bonilla ANP 230 [place] [address] PCP - General Family Medicine 09/03/20 Rajni García, TIM [address] [place] [address] Radiation EngineerBitumen Plant Operator 09/18/24 documented as of this encounter
--- OUTSIDE RECORDS SUMMARY | 2024-09-23 15:30 | XMS_ITS | Encounter Summary ---
Author Organization [employer] Address 75 [facility] 7t [place] [address] Care Team Providers Care Adobe Architect Name Role Phone Wanda Bonilla Primary Care Provider [phone] Rajni García RN Unavailable [phone] Reason for Visit * Reason Comments Med Refill Encounter Details Date Type Department Care Team ([facility] Contact Info) Description 12/03/2023 Telephone [facility] MEDICINE 230 [place] [address] Shelli Vo MD 230 [place], [place] [phone] Med Refill Social History Tobacco Use Types [...] Description 10/21/2024 10:00 AM EDT Office Visit [facility] MEDICINE [address] [place] [address] Shivani Small CNM 230 [place] [address] 12/08/2024 1:00 PM EDT Office Visit [facility] OPTOMETRY [address] [place] [address] Tyler, Smiley, OD 230 [place] [address] documented as of this encounter Visit Diagnoses Diagnosis Asthma, unspecified asthma severity, unspecified whether complicated, unspecified whether persistent documented in this encounter Additional Health Concerns Assessment Noted Time PHQ-9 Depression Total Score: 5 11/23/19 24 1:33 PM EDT documented as of this encounter Care Teams Adobe Architect Relationship Specialty Start Date End Date Wanda Bonilla ANP [address] [place] [address] PCP - General Family Medicine 09/03/20 Rajni García RN [address] [place] [address] Salon LeaderCafe Operator 09/18/24 documented as of this encounter
--- OUTSIDE RECORDS SUMMARY | 2024-09-23 15:30 | XMS_ITS | Encounter Summary ---
Author Organization [employer] Address 75 [facility] 7t [place] [address] Care Team Providers Care Supervisor Cutting And Sewing Room Name Role Phone Wanda Bonilla Primary Care Provider [phone] Reason for Visit * Reason Comments Care Coordination CM/CHW outreach Encounter Details Date Type Department Care Team (Latest Contact Info) Description 09/02/2024 Patient Outreach [facility] MEDICINE 230 [place] [address] Wanda Bonilla ANP 230 [place] [address] Care Coordination (CM/CHW outreach) Social History Tobacco [...] outbound call to patient introducing herself from [facility] CM Department, in regard to offering services. Patient's name and was confirmed. Patient agrees to participate in program. Appt. for initial assessment scheduled for 09/18/24 @ 1PM tele appt with CM Rajni García RN. CHW reinforced direct contact information or CM [phone] for any additional questions or concerns and extended clinic hours on Mondays and Wednesdays, and Walk-In Urgent Care Located in [facility] of [facility]. Patient provided with after-hours line for [facility], , which offer nighttime triage service and option to transfer to regional administrative assistant provider if needed. Patient verbalizes understanding, and able to repeat back to senior grant writer. documented in this encounter Plan of Treatment Upcoming Encounters Date Type Department Care Team (Late st Contact Info) Description 10/21/2024 10:00 AM EDT Office Visit [facility] MEDICINE 230 [place], [place] [phone] Shivani Small CNM 230 [place], [place] [phone] 12/08/2024 1:00 PM EDT Office Visit [facility] OPTOMETRY [address] [place] [address] Smiley Scott, JUDITH 230 [place] [address] documented as of this encounter Visit Diagnoses Not on filedocumented in this encounter Additional Health Concerns Assessment Noted Time PHQ-9 Depression Total Score: 5 11/23/19 24 1:33 PM EDT documented as of this encounter Care Teams Supervisor Cutting And Sewing Room Relationship Specialty Start Date End Date Wanda Bonilla ANP 230 [place] [address] PCP - General Family Medicine 09/03/20 documented as of this encounter
--- OUTSIDE RECORDS SUMMARY | 2024-09-23 15:30 | XMS_ITS | Encounter Summary ---
Author Organization [employer] Address 75 [facility] 7t [place] [address] Care Team Providers Care In Flight Technician Name Role Phone Wanda Bonilla Primary Care Provider [phone] Rajni García RN Unavailable [phone] Reason for Visit * Reason Comments Med Refill Encounter Details Date Type Department Care Team ([facility] st Contact Info) Description 08/03/2024 Refill [facility] MEDICINE 230 [place], [place] [phone] Wanda Bonilla ANP 230 [place] [address] Essential hypertension Social History Tobacco Use Types [...] Description 10/21/2024 10:00 AM EDT Office Visit [facility] MEDICINE [address] [place] [address] Shivani Small CNM 230 [place] [address] 12/08/2024 1:00 PM EDT Office Visit [facility] OPTOMETRY [address] [place] [address] Smiley Scott, OD 230 [place] [address] documented as of this encounter Visit Diagnoses Diagnosis Essential hypertension Unspecified essential hypertension documented in this encounter Additional Health Concerns Assessment Noted Time PHQ-9 Depression Total Score: 5 11/23/19 24 1:33 PM EDT documented as of this encounter Care Teams In Flight Technician Relationship Specialty Start Date End Date Wanda Bonilla ANP 230 [place] [address] PCP - General Family Medicine 09/03/20 Rajni García RN 505 [place] [address] Rn Physician OfficeShading Painter 09/18/24 documented as of this encounter
--- OUTSIDE RECORDS SUMMARY | 2024-09-23 15:30 | XMS_ITS | Encounter Summary ---
Author Organization [employer] Address [address] [place] [address] 7t [place] [address] Care Team Providers Care Coke Worker Name Role Phone Irene Wanda HARO Primary Care Provider [phone] Rajni García RN Unavailable [phone] Reason for Visit * Reason Comments Med Refill Encounter Details Date Type Department Care Team (Late st Contact Info) Description 04/03/[address] [facility] MEDICINE [address] [place] [address] Brenda Lopez MD [address] [place], [place] [phone] Social History Tobacco Use Types Packs/Day Years [...] Description 10/21/2024 10:00 AM EDT Office Visit [facility] MEDICINE [address] [place] [phone] Shivani Small CNM 230 [place], [place] [phone] 12/08/2024 1:00 PM EDT Office Visit [facility] OPTOMETRY [address] [place], [place] [phone] Smiley Scott, OD 230 [place] [address] documented as of this encounter Visit Diagnoses Not on filedocumented in this encounter Additional Health Concerns Assessment Noted Time PHQ-9 Depression Total Score: 0 08/25/19 23 1:48 PM EST documented as of this encounter Care Teams Coke Worker Relationship Specialty Start Date End Date Wanda Bonilla ANP [address] [place], [place] [phone] PCP - General Family Medicine 09/03/20 Rajni García RN [address] [place] [address] Manager Real EstateMechanical Integrity Specialist 09/18/24 documented as of this encounter
--- OUTSIDE RECORDS SUMMARY | 2024-09-23 15:30 | XMS_ITS | Clinical Summary ---
Author Organization [facility] Address [address] [place] [address] Phone Care Team Providers Care Licensed Physical Therapist Name Role Phone Regina Su ADRIANNE Primary Care Provider [phone] Allergies Active Allergy Reactions Criticality Noted Date Comments Morphine 09/22/2024 Medications insulin glargine,hum.re c.anlog (INSULIN GLARGINE SUBQ) [...] C Hyperlipidemia LDL goal <70 Hypertension Obesity Encounters Date Type Department Care Team Description 09/22/2024 3:30 PM EST Office Visit Orthopedic Surgery [facility] [address] [phone] Mario Robbins DPM Mass of left foot (Primary Dx); Dermatophytosis of nail; Pain in toe of right foot; Pain in toe of left foot; Diabetic mononeuropathy simplex (CMS/HCC); Type II diabetes mellitus with peripheral circulatory disorder (CMS/HCC) from Last 3 Months Social History Tobacco Use Types Packs/Day Years Used Date Smoking Tobacco: Never Assessed Comments Unknown Sex and Gender Information Value Date Recorded Sex Assigned at Not on file Legal Sex Female 3:47 PM EST Gender Identity Not on file Sexual Orientation Not on file Last Filed Vital Signs Vital Sign Reading Time Taken Comments Blood Pressure - - Pulse - - Temperature - - Respiratory Rate - - Oxygen Saturation - - Inhaled Oxygen Concentration - - Weight 79.4 kg (175 lb) 09/22/2024 2:52 PM EST Height 160 cm (5' 3 ) 09/22/2024 2:52 PM EST Body Mass Index 31 09/22/2024 2:52 PM EST Plan of Treatment Upcoming Encounters Date Type Department Care Team (Late st Contact Info) Description 12/23/2024 11:00 AM EDT Office Visit Orthopedic [facility] [address] [phone] Mario Robbins DPM [address] [address] Health Maintenance Due Date Last Done Comments Breast Cancer Screening 1963 Diabetes: Annual Foot Exam 1973 Diabetes: Annual Retina Eye Exam 1973 Zoster Vaccines (1 of 2) 2013 Pneumococcal Vaccine: 50+ Years (2 of 2 - PCV) 07/09/2015 07/09/2014 Pneumococcal Vaccine: Pediatrics (0 to 5 Years) and At-Risk Patients (6 to 64 Years) (2 of 2 - PCV) 07/09/2015 07/09/2014 Hepatitis A Vaccines (2 of 2 - Risk 2-dose series) 08/28/2020 02/26/2020, 07/08/2009, 07/14/2008 RSV Immunization Patients 60+ Years Old (1 - Risk 60-74 years 1-dose series) 2023 COVID-19 Vaccine ( season) 2024 12/29/2020, 12/01/2020 Influenza Vaccine (#1) 2024 05/13/2018, 2016 Colorectal Cancer Screening: Colonoscopy 06/13/2024 Hepatitis C Screening 06/13/2024 Social Influencers of Health Screening 06/13/2024 Diabetes: Annual Urine Albumin-Creatinine Ratio (uACR) 07/11/2024 Depression Screening 11/22/2024 11/23/2023 Diabetes: Blood Sugar Control Test (HGBA1C) 12/03/2024 06/05/2024 Diabetes: Annual GFR (Glomerular Filtration Rate) 09/01/2025 09/01/2024 Hypertension/CHF/CAD Annual BMP Blood Test 09/01/2025 09/01/2024 Cervical Cancer Screening: Pap Smear 06/17/2027 06/17/2024 Cholesterol Screening (Lipid Panel) 05/01/2028 05/01/2023 DTaP,Tdap,and Td Vaccines (4 - Td or Tdap) 07/24/2034 07/24/2024, 07/09/2014, 01/25/2004 Hepatitis B Vaccines Completed 02/26/2020, 07/20/2017, 11/10/2016, Additional history exists HIV Screening Completed 03/24/2024 HIB Vaccines Aged Out No longer eligi [...] to complete this topic RSV Immunization Patients Under 20 months Aged Out No longer eligible based on patient's age to complete this topic Varicella Vaccines Aged Out No longer eligible based on patient's age to complete this topic Insurance MEDICAID - [place] Care Teams Licensed Physical Therapist Relationship Specialty Start Date End Date Regina Su FNP [address] [place] [address] PCP - General Nurse Practitioner 07/11/24
--- OUTSIDE RECORDS SUMMARY | 2024-09-23 15:30 | XMS_ITS | Encounter Summary ---
Author Organization [employer] Address 75 [facility] 7t [place] [address] Care Team Providers Care Chain Saw Driver Name Role Phone Wanda Bonilla Primary Care Provider [phone] Rajni García RN Unavailable [phone] Reason for Visit * Reason Onset Date Comments Med Refill 10/01/2023 Encounter Details Date Type Department Care Team ([facility] st Contact Info) Description 10/01/2023 Telephone [facility] MEDICINE [address] [place] [address] Wanda Bonilla ANP [address] [place] [address] Med Refill Social History Tobacco Use Types [...] 250 MG tablet To be sent to: [facility] pharmacy documented in this encounter Plan of Treatment Upcoming Encounters Date Type Department Care Team (Late st Contact Info) Description 10/21/2024 10:00 AM EDT Office Visit [facility] MEDICINE [address] [place] [address] Shivani Small CNM [address] [place] [address] 12/08/2024 1:00 PM EDT Office Visit [facility] OPTOMETRY [address] [place] [address] Smiley Scott OD 230 [place] [address] documented as of this encounter Visit Diagnoses Not on filedocumented in this encounter Additional Health Concerns Assessment Noted Time PHQ-9 Depression Total Score: 0 08/25/19 23 1:48 PM EST documented as of this encounter Care Teams Chain Saw Driver Relationship Specialty Start Date End Date Wanda Bonilla ANP [address] [place] [address] PCP - General Family Medicine 09/03/20 Rajni García RN [address] [place] [address] Legger Press OperatorVascular Neurologist 09/18/24 documented as of this encounter
--- OUTSIDE RECORDS SUMMARY | 2024-09-23 15:30 | XMS_ITS | Encounter Summary ---
Author Organization [employer] Address 75 [facility] 7t [place] [address] Care Team Providers Care Catering Sales Manager Name Role Phone Wanda Bonilla Primary Care Provider [phone] Reason for Visit * Reason Comments Shortness of Breath Headache Encounter Details Date Type Department Care Team ([facility] st Contact Info) Description 09/08/2024 9:00 AM EST Office Visit [facility] 230 [place] [address] Brenda Lopez MD 230 [place], [place] [phone] KAY (dyspnea on exertion) (Primary Dx); Primary [...] to opiates)with Tylenol and ibuprofen I called [facility] and they will call patient [...] 11 insulin pen needle (Easy Touch Pen Hale) 31G X 8 mm [facility] USE DIRECTED FOUR TIMES DAILY 100 each [...] to opiates)with Tylenol and ibuprofen I called [facility] and they will call patient [...] Description 10/21/2024 10:00 AM EDT Office Visit [facility] MEDICINE [address] [place] [address] Shivani Small, CINTHIA [address] [place] [address] 12/08/2024 1:00 PM EDT Office Visit [facility] OPTOMETRY [address] [place] [address] Smiley Scott, OD 230 [place] [address] documented as of this encounter Procedures Procedure Name Priority Date/Time Associated Diagnosis Comments POCT URINALYSIS DIPSTICK Routine 09/08/2024 9:21 AM EST Other microscopic hematuria CULTURE, URINE, ROUTINE Routine 09/08/2024 9:21 AM EST Other microscopic hematuria documented in this encounter Results * Culture, Urine, Routine (09/08/2024 9:21 AM EST) Urine Urine specimen obtained by clean catch procedure / Unknown 09/08/2024 9:21 AM EST 09/08/2024 1:29 PM EST Comment:[facility] LABS - 09/09/2024 9:54 AM EST Urine Culture Report Result Urine Culture < 10,000 cfu/ml Specimen Source: Urine clean catch us Brenda Lopez MD LAB MICROBIOLOGY - GENER AL ORDERABLES Final Result [facility] [address] [place] [address] [phone] * POCT urinalysis dipstick manually resulted (09/08/2024 [...] documented as of this encounter Care Teams Catering Sales Manager Relationship Specialty Start Date End Date Wanda Bonilla ANP [address] [place] [address] PCP - General Family Medicine 09/03/20 documented as of this encounter
--- OUTSIDE RECORDS SUMMARY | 2024-09-23 15:31 | XMS_ITS | Encounter Summary ---
Author Organization [employer] Address [address] [facility] [address] 7[address] [place] [address] Care Team Providers Care Php Mysql Web Developer Name Role Phone Wanda Bonilla Primary Care Provider [phone] Rajni García RN Unavailable [phone] Encounter Details Date Type Department Care Team ([facility] st Contact Info) Description 09/26/2023 Telephone [facility] MEDICINE [address] [place] [address] Wanda Bonilla ANP [address] [place] [address] Social History Tobacco Use Types Packs/Day Years [...] * Telephone Encounter - Antonio Boo - 09/26/2023 10:51 AM EST Tc from pt stated received a call but when they picked up the call hung up, pt unsure on who called. documented in this encounter Plan of Treatment Upcoming Encounters Date Type Department Care Team (Late st Contact Info) Description 10/21/2024 10:00 AM EDT Office Visit [facility] MEDICINE [address] [place] [address] Shivani Small, CNM 230 [place] [address] 12/08/2024 1:00 PM EDT Office Visit [facility] OPTOMETRY [address] [place] [address] TylerSmiley rowe, OD [address] [place] [address] documented as of this encounter Visit Diagnoses Not on filedocumented in this encounter Additional Health Concerns Assessment Noted Time PHQ-9 Depression Total Score: 0 08/25/19 23 1:48 PM EST documented as of this encounter Care Teams Php Mysql Web Developer Relationship Specialty Start Date End Date Wanda Bonilla ANP [address] [place] [address] PCP - General Family Medicine 09/03/20 Rajni García, TIM [address] [place] [address] Waste Water OperatorMaking Machine Operator 09/18/24 documented as of this encounter
== END 2024-09-23 12:47 | disposition home or self-care (01) ==
LOC: HO.HHCX 12:46
PROVIDERS: Visit Provider Nurse Practitioner Primary Care
DX: G89.29 Other chronic pain (principal); M25.511 Pain in right shoulder; M25.512 Pain in left shoulder; M54.2 Cervicalgia
CPT/HCPCS: 72050; 73030

== ENCOUNTER → 2024-09-23 12:46 | Outpatient (BNV) | payer MEDICAID, SELFPAY | PROVIDERS: Visit Provider Radiology Diagnostic Radiology | DX: Z03.89 Encounter for observation for other suspected diseases and conditions ruled out (principal); M54.2 Cervicalgia | CPT/HCPCS: 72050; 73030 ==

== ENCOUNTER 2024-10-20 08:26 | Emergency (ER) | payer MEDICAID, SELFPAY ==
--- NOTE | ~2024-10-20 | CT_ITS ---
CLINICAL HISTORY: History of kidney stones, evaluate for hydronephro CT abdomen and pelvis with contrast Comparison: CT - CT ABDOMEN PELVIS W IV CON - 10/20/24 19:19 EDT Findings: The lung bases are clear. Status post cholecystectomy. Extensive nodularity of the liver with mild atrophic changes concerning for hepatic cirrhosis. No hydronephrosis. Stable 3-4 mm left kidney lower pole nonobstructing stones. No bowel obstruction, pneumoperitoneum, or pneumatosis. Pelvic contents unremarkable. Normal appendix. No acute fracture. IMPRESSION: No acute findings. No hydronephrosis. Stable 3-4 mm left kidney lower pole nonobstructing stones. Extensive nodularity of the liver with mild atrophic changes concerning for hepatic cirrhosis. Status post cholecystectomy. This document has been electronically signed by: Devan Mata MD on 10/20/2024 20:32:45
[2024-10-20 09:10] VITALS: BP 158/68; PULSE 54; RESP 16; TEMP 36.1; O2SAT 98; BMI 30.6
[2024-10-20 10:01] LABS: MANUAL DIFF FLAG NO
[2024-10-20 10:02] LABS: Appearance Urine Clear; Color Urine Yellow; Glucose Urine UA Negative (Negative); Leukocyte Esterase Urine Negative (Negative); Nitrite Urine Negative (Negative); Urine Blood Negative (Negative); Urine Ketones Negative (Negative); Urine Protein Trace mg/dL (Neg-Trace)
[2024-10-20 10:06] LABS: Basophils Percent Auto 0.2 % (0-2); Eosinophils Absolute Auto 0.1 X10*3/uL (0.0-0.4); Eosinophils Percent Auto 2.2 % (0-4); Hematocrit 35.4 % (37.0-47.0); Hemoglobin 12.1 g/dl (12.0-16.0); Imm Gran Abs Auto 0.01 X10*3/uL (0.00-0.03); Imm Gran Pct Auto 0.2 % (0.0-0.4); Lymphocytes Absolute Auto 1.4 X10*3/uL (1.2-4.9); Lymphocytes Percent Auto 32.5 % (20-40); Mean Corpuscular HGB Conc 34.2 g/dl (31.0-35.0); Mean Corpuscular Hemoglobin 28.3 pg (27.0-33.0); Mean Corpuscular Volume 82.9 fL (80.0-98.0); Mean Platelet Volume 10.2 fL (9.4-12.3); Monocytes Absolute Auto 0.5 X10*3/uL (0.1-1.2); Monocytes Percent Auto 11.6 % (2-11); Neutrophils Absolute Auto 2.2 x10*3/uL (2.0-8.3); Neutrophils Percent Auto 53.3 % (45-73); Platelet Count 100 X10*3/uL (160-400); Red Blood Count 4.27 X10*6/uL (4.20-5.50); Red Cell Distribution Width 13.2 % (11.0-16.0); White Blood Count 4.2 X10*3/uL (4.8-10.8)
[2024-10-20 10:22] LABS: Alanine Aminotransferase 60 U/L (0-31); Albumin Level 3.8 g/dL (3.5-5.0); Alkaline Phosphatase 151 U/L (39-117); Anion Gap 11 (12-20); Aspartate Amino Transferase 50 U/L (5-31); Bilirubin Total 0.5 mg/dL (0.0-1.0); Blood Urea Nitrogen 10 mg/dL (9-16); Carbon Dioxide 25 mmol/L (22-29); Chloride 110 mmol/L (96-108); Creatinine Clr Calc Pharmacy 66.5; Estimated Glomerular Filt Rate > 60; Glucose Random 138 mg/dL (60-115); Potassium 4.1 mmol/L (3.3-5.1); Sodium 142 mmol/L (135-145); Total Protein 7.3 g/dL (6.5-8.0)
--- NOTE | 2024-10-20 11:21 | ED_ITS ---
HPI - Female Genitourinary General Chief complaint: Urogenital-Female Stated complaint: back and abd pain Time Seen by Provider: 10/20/24 17:21 Source: patient Mode of arrival: ambulatory Limitations: no limitations History of Present Illness ED Provider: Elgin Escobar DO HPI Narrative: 59-year-old female with past medical history of ureteral stones treated with lithotripsy without stenting in the past, complex ovarian cyst, insulin- dependent diabetes, hyperlipidemia, asthma and cirrhosis secondary to hepatitis- C presents to the ED due to persistent and progressively worsening right-sided flank pain that radiates to the groin on the right side for the past 2 months. Patient states the symptoms worsened over the past few days and reports dark urine with small void volumes without dysuria, fevers, chills or other symptoms including chest pain, difficulty breathing or cough. Patient states symptoms are similar to previous kidney stones. She has been taking ibuprofen and acetaminophen at home without relief. She has not taken any opiates. History obtained with the assistance of in-person registered pharmacy technician, Good. Related Data Home Medications ?Medication ?Instructions ?Recorded ?Confirmed gabapentin 300 mg capsule 300 mg PO BID 07/28/20 08/07/24 cholecalciferol (vitamin D3) 25 25 mcg PO QAM 10/12/22 08/07/24 mcg (1,000 unit) capsule (Vitamin D3) insulin lispro 100 unit/mL 20 unit subcut TID 10/12/22 08/07/24 subcutaneous pen lidocaine 5 % topical patch 2 patch topical DAILY PRN Pain 10/12/22 08/07/24 pen needle, diabetic 31 gauge x #1,200 ea 10/12/22 08/07/24/16 (UltiCare Pen Needle) pioglitazone 15 mg tablet 15 mg PO QAM 10/12/22 08/07/24 quetiapine 25 mg tablet 25 mg PO BID PRN Sleep 05/05/23 08/07/24 albuterol sulfate 2.5 mg/3 mL 2.5 mg inhalation Q4H PRN sob 09/10/23 08/07/24 (0.083 %) solution for nebulization aspirin 81 mg tablet,delayed 81 mg PO QPM 09/24/23 08/07/24 release semaglutide 0.25 mg or 0.5 mg (2 0.5 mg subcut MO 09/24/23 08/07/24 mg/3 mL) subcutaneous pen injector (Ozempic) amlodipine 10 mg tablet 10 mg PO QAM 11/12/23 08/07/24 insulin glargine 100 unit/mL (3 60 unit subcut BEDTIME 11/12/23 08/07/24 mL) subcutaneous pen (Lantus Solostar U-100 Insulin) lisinopril 40 mg tablet 40 mg PO QPM 11/12/23 08/07/24 quetiapine 100 mg tablet 150 mg PO BEDTIME 11/12/23 08/07/24 ropinirole 0.5 mg tablet 0.5 mg PO BEDTIME 11/12/23 08/07/24 rosuvastatin 5 mg tablet 5 mg PO BEDTIME 11/12/23 08/07/24 famotidine 20 mg tablet 20 mg PO TID 11/13/23 08/07/24 fluticasone propionate 110 1 puff inhalation Q12H 11/13/23 08/07/24 mcg/actuation HFA aerosol inhaler mometasone 100 mcg/actuation HFA 2 puff inhalation Q12H PRN sob 11/13/23 08/07/24 aerosol inhaler (Asmanex HFA) sennosides 8.6 mg-docusate sodium 2 cap PO BEDTIME PRN Constipation 11/13/23 08/07/24 50 mg capsule (Senna Plus) trazodone 150 mg tablet 150 mg PO BEDTIME PRN Sleep 11/13/23 08/07/24 carvedilol 6.25 mg tablet 6.25 mg PO 12/21/23 08/07/24 Previous Rx's ?Medication ?Instructions ?Recorded pyridoxine (vitamin B6) 100 mg 100 mg PO QAM #90 tabs 12/31/23 tablet polyethylene glycol 3350 17 17 g PO DAILY 1 day #238 grams 02/07/24 gram/dose oral powder (Miralax) oxycodone 5 mg capsule 5 mg PO Q8H PRN pain #12 caps 05/20/24 cyclobenzaprine 10 mg tablet 10 mg PO TID PRN muscle spasm #15 06/08/24 tabs loratadine 10 mg tablet (Claritin) 10 mg PO DAILY #30 tabs 06/08/24 naproxen 500 mg tablet 500 mg PO BID PRN pain #14 tabs 06/08/24 sofosbuvir 400 mg-velpatasvir 100 1 tab PO DAILY 12 weeks #84 tabs 07/28/24 mg tablet (Epclusa) Allergies Allergy/AdvReac Type Severity Reaction Status Date / Time morphine AdvReac Abdominal Verified 10/20/24 09:11 Pain Review of Systems 2 Review of Systems: Yes all other systems are reviewed and are negative [facility] Past Medical History Medical History Neuropathy Somnolence, daytime Flank pain RUQ abdominal pain Left foot pain Bilateral hand pain COVID-19 Hepatitis C Rheumatoid arthritis Flank pain Renal stones Bipolar disorder Panic disorder Depression Anxiety Abdominal distension (gaseous) Asthma Hyperlipidemia 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 Mother Diabetes mellitus Sister Diabetes mellitus Brother No problems noted. Paternal Uncle Colon cancer Social History Social History Household Members: None Housing: Apartment Do you presently have visiting nurse or other home services: Yes Alcohol intake: current Alcohol intake frequency: former alcohol drinker Alcohol type: beer Patient Tobacco Use Status: Current everyday Tobacco user Tobacco use type: Cigarette Cigarettes Per Day: 2 Years Smoked: 15 service: No Physical Exam 2 Vital Signs: Vital Signs: Last Vital Signs Temp 98.7 F 10/20/24 21:12 Pulse 56 10/20/24 21:12 Resp 16 10/20/24 21:12 BP 156/88 H 10/20/24 21:12 Pulse Ox 98 10/20/24 21:12 O2 Del Method Room Air 10/20/24 21:12 BMI result Body Mass Index 30.6 Constitutional: ?Alert, oriented, speaking in full sentences HEENT: ?Normocephalic, atraumatic. ?Moist mucous membranes Eyes: ?PERRL, EOMI Neck: ?Supple, nontender Chest: ?No chest wall tenderness Respiratory: ?Lungs clear to auscultation, no increased work of breathing Cardio: ?Regular rate and rhythm, no murmur, 2+ radial and DP pulses symmetrically GI: ?Soft, nondistended, nontender Back: ?Normal range of motion, no midline tenderness, mild right-sided CVA tenderness to palpation and percussion. Skin: ?No rash, no lesions Neuro: ?Alert and oriented to person, place and time, moves all 4 extremities, no focal deficits Extremities: ?No swelling or tenderness, full range of motion Psych: ?Calm, alert and cooperative, appropriate behavior Medications Administered Discontinued Medications Generic Name Dose Route Start Last Admin Trade Name Freq PRN Reason Stop Dose Admin Acetaminophen 1,000 mg in 100 mls @ 400 mls/hr 10/20/24 17:51 10/20/24 18:03 Ofirmev IV 10/20/24 18:05 400 mls/hr ONCE ONE Administration Iohexol 85 ml 10/20/24 19:30 10/20/24 19:39 Iohexol 350 Mg/Ml 100 Ml Infus..Btl IV 10/20/24 19:31 85 ml ONCE ONE Administration Ketorolac Tromethamine 15 mg 10/20/24 17:51 10/20/24 18:02 Ketorolac Tromethamine 15 Mg/Ml Vial IVPUSH 10/20/24 17:52 15 mg ONCE ONE Administration Medical Decision Making Medical Decision Making MDM Narrative: This is a well-appearing patient presenting with concerns for right-sided flank pain and urinary symptoms consistent with previous ureteral stones. Although she does not appear uncomfortable, she is reporting 7/10 pain and is treated with ketorolac and acetaminophen here. Given her age and comorbidities, she will be further evaluated with CT imaging of the abdomen and pelvis with contrast to search for other potential causes of flank pain including pyelonephritis or perinephric abscess. However, low likelihood of these etiologies and more likely pain is secondary to ureteral stone, especially due to the waxing and waning component of pain. Her labs were reviewed and show no concerning findings including an unremarkable CBC, unremarkable BMP with no renal impairment, baseline mild elevation in LFTs, and unremarkable urine without blood. Given the lack of microscopic hematuria, this raises the possibility of other etiologies of the patient's symptoms. CT imaging shows no remarkable findings and the patient has no recurrence of her pain. At this time it is unclear as to the etiology of the patient's symptoms but given her well appearance, stable vital signs and improvement in pain with unremarkable labs and CT imaging, she is stable for discharge and is encouraged to follow up with her primary care provider and return here as soon as possible if she has any other changes at home. Patient agrees with this plan. Admission/Observation Consideration of admission/observation: Escalation of care including admission/observation considered Lab Data MDM Lab Attestation statement: I reviewed the patient's lab results. 10/20/24 09:50 10/20/24 09:50 Labs: Lab Results 10/20/24 10/20/24 Range/Units 09:50 09:53 WBC 4.2 L (4.8-10.8) X10*3/uL RBC 4.27 (4.20-5.50) X10*6/uL Hgb 12.1 (12.0-16.0) g/dl Hct 35.4 L (37.0-47.0) % MCV 82.9 (80.0-98.0) fL MCH 28.3 (27.0-33.0) pg MCHC 34.2 (31.0-35.0) g/dl RDW 13.2 (11.0-16.0) % Plt Count 100 L (160-400) X10*3/uL MPV 10.2 (9.4-12.3) fL Immature Gran % (Auto) 0.2 (0.0-0.4) % Neut % (Auto) 53.3 (45-73) % Lymph % (Auto) 32.5 (20-40) % [place] % (Auto) 11.6 H (2-11) % Eos % (Auto) 2.2 (0-4) % Baso % (Auto) 0.2 (0-2) % Lymph # (Auto) 1.4 (1.2-4.9) X10*3/uL [place] # (Auto) 0.5 (0.1-1.2) X10*3/uL Eos # (Auto) 0.1 (0.0-0.4) X10*3/uL Baso # (Auto) 0.0 (0.0-0.2) X10*3/uL Abs Immat Gran (auto) 0.01 (0.00-0.03) X10*3/uL Absolute Neuts (auto) 2.2 (2.0-8.3) x10*3/uL Absolute Nucleated RBC 0.000 (0.0-0.012) X10*3/uL Nucleated RBC % (auto) 0.0 (0.0-0.2) /100WBC Sodium 142 (135-145) mmol/L Potassium 4.1 (3.3-5.1) mmol/L Chloride 110 H (96-108) mmol/L Carbon Dioxide 25 (22-29) mmol/L Anion Gap 11 L (12-20) BUN 10 (9-16) mg/dL Creatinine 0.88 (0.5-1.4) mg/dL Estim Creat Clear Calc 66.5 Estimated GFR > 60 Random Glucose 138 H (60-115) mg/dL Calcium 9.0 (8.4-10.2) mg/dL Total Bilirubin 0.5 (0.0-1.0) mg/dL AST 50 H (5-31) U/L ALT 60 H (0-31) U/L Alkaline Phosphatase 151 H (39-117) U/L Total Protein 7.3 (6.5-8.0) g/dL Albumin 3.8 (3.5-5.0) g/dL Urine Color Yellow Urine Appearance Clear Urine pH 6.0 (5.0-9.0) Ur Specific [place] 1.020 (1.005-1.025) Urine Protein Trace (Neg-Trace) mg/dL Urine Glucose (UA) Negative (Negative) mg/dL Urine Ketones Negative (Negative) mg/dL Urine Blood Negative (Negative) Urine Nitrite Negative (Negative) Ur Leukocyte Esterase Negative (Negative) Radiology Impression Discussion of test interpretation with radiology: I have reviewed the radiologist's reading. Radiologist Impression: IMPRESSION: No acute findings. No hydronephrosis. Stable 3-4 mm left kidney lower pole nonobstructing stones. Extensive nodularity of the liver with mild atrophic changes concerning for hepatic cirrhosis. Status post cholecystectomy. Discharge Plan Discharge Clinical Impression: Abdominal pain Patient Disposition: Home, Self-Care Instructions: Flank Pain (ED) Additional Instructions: Le evaluamos por dolor en el costado y dolor abdominal. Los an?lisis de maury y orina y el TAC no mostraron anomal?as que explicaran [place] s?ntomas. Le tratamos con medicamentos rhoda paracetamol y ketorolaco. Rhoda ya hemos comentado, llame ma?lina a palmer m?dico de cabecera para concertar un seguimiento estrecho y vuelva aqu? lo antes posible si empeora el dolor o aparecen otros s?ntomas rhoda fiebre, escalofr?os, ardor al orinar o cualquier otro problema dusty. Traducci?n realizada con la versi?n gratuita del traductor [email or web address] Prescriptions: No Action pyridoxine (vitamin B6) 100 mg tablet 100 mg PO QAM Qty: 90 3RF polyethylene glycol 3350 [Miralax] 17 gram/dose powder 17 g PO DAILY 1 Days Qty: 238 0RF Rx Instructions: Mix Miralax with 64 oz(8 cups) of Crystal light. Take 2 tablets of Dulcolax qt 12 pm. Wait to have your 1st bowel movement, then begin drinking Miralax. Drink a glass of Miralax every 10-15 minutes until you are finished. You will drink at least another 4 cups of clear liquid of your choice over the next 2 hours. Please drink as many clear liquids as possible You may have clear liquids up to four hours before your procedure sofosbuvir-velpatasvir [Epclusa] 400-100 mg tablet 1 tab PO DAILY 84 Days Qty: 84 0RF quetiapine 25 mg tablet 25 mg PO BID PRN (Reason: Sleep) insulin glargine [Lantus Solostar U-100 Insulin] 100 unit/mL (3 mL) insulin pen 60 unit subcut BEDTIME quetiapine 100 mg tablet 150 mg PO BEDTIME lisinopril 40 mg tablet 40 mg PO QPM amlodipine 10 mg tablet 10 mg PO QAM ropinirole 0.5 mg tablet 0.5 mg PO BEDTIME rosuvastatin 5 mg tablet 5 mg PO BEDTIME famotidine 20 mg tablet 20 mg PO TID Senna Plus 8.6-50 mg capsule 2 cap PO BEDTIME PRN (Reason: Constipation) fluticasone propionate 110 mcg/actuation HFA aerosol inhaler 1 puff INHALATION Q12H Asmanex HFA 100 mcg/actuation HFA aerosol inhaler 2 puff INHALATION Q12H PRN (Reason: sob) trazodone 150 mg Tablet 150 mg PO BEDTIME PRN (Reason: Sleep) oxycodone 5 mg capsule 5 mg PO Q8H PRN (Reason: pain) Qty: 12 0RF Rx Instructions: Partial Fill upon patient request. loratadine [Claritin] 10 mg tablet 10 mg PO DAILY Qty: 30 0RF naproxen 500 mg tablet 500 mg PO BID PRN (Reason: pain) Qty: 14 0RF cyclobenzaprine 10 mg tablet 10 mg PO TID PRN (Reason: muscle spasm) Qty: 15 0RF gabapentin 300 mg capsule 300 mg PO BID (DME) pen needle, diabetic [UltiCare Pen Needle] 31 gauge x 5/16 needle See Rx Instructions .ROUTE QID Qty: 1200 Rx Instructions: As directed insulin lispro 100 unit/mL insulin pen 20 unit subcut TID lidocaine 5 % adhesive patch,medicated 2 patch topical DAILY PRN (Reason: Pain) pioglitazone 15 mg tablet 15 mg PO QAM cholecalciferol (vitamin D3) [Vitamin D3] 25 mcg (1,000 unit) capsule 25 mcg PO QAM albuterol sulfate 2.5 mg /3 mL (0.083 %) solution for nebulization 2.5 mg inhalation Q4H PRN (Reason: sob) carvedilol 6.25 mg tablet 6.25 mg PO Ozempic 0.25 mg or 0.5 mg (2 mg/3 mL) pen injector 0.5 mg subcut MO aspirin 81 mg tablet,delayed release (DR/EC) 81 mg PO QPM Interventions: ED Discharge Assessment Last Done: 10/20/24 21:12 Discharge Date/Time: 10/20/24 21:13 Print Language: Panamanian
[2024-10-20] MEDS: Ketorolac Tromethamine 15 MG/ML VIAL IVPUSH (18:02)
[2024-10-20] MEDS: Acetaminophen 1,000 MG/100 ML PIGGYBACK 400 MG IV (18:03)
[2024-10-20] MEDS: iohexoL 350 MG/ML 100 ML INFUS..BTL 85 ML IV (19:39)
[2024-10-20 21:10] VITALS: BP 156/88; PULSE 56; RESP 16; TEMP 37.1; O2SAT 98
[2024-10-20 21:12] VITALS: BP 156/88; PULSE 56; RESP 16; TEMP 37.1; O2SAT 98
== END 2024-10-20 21:13 | disposition home or self-care (01) ==
PROVIDERS: Emergency Medicine Emergency Medical Services; Emergency Provider Emergency Medicine; PCP Nurse Practitioner Primary Care
DX: M54.50 Low back pain, unspecified (principal); R10.2 Pelvic and perineal pain; E11.9 Type 2 diabetes mellitus without complications; Z79.899 Other long term (current) drug therapy; Z79.4 Long term (current) use of insulin
CPT/HCPCS: 36415; 74177; 80053; 81003; 85025; 87086; 96374; 96375; 99284; J0131; J1885; Q9967

== ENCOUNTER → 2024-10-20 17:51 | Outpatient (BNV) | payer MEDICAID, SELFPAY | PROVIDERS: Emergency Provider Emergency Medicine; PCP Nurse Practitioner Primary Care; Visit Provider Student in an Organized Health Care Education/Training Program | DX: N20.0 Calculus of kidney (principal) | CPT/HCPCS: 74177 ==

== ENCOUNTER 2024-12-16 13:52 | Outpatient (REF) | payer MEDICAID, SELFPAY ==
--- OUTSIDE RECORDS SUMMARY | 2024-12-16 15:11 | XMS_ITS | Encounter Summary ---
Author Organization [employer] Address [address] [facility] 7t [place] [address] Care Team Providers Care Sport Psychologist Name Role Phone Wanda Bonilla Primary Care Provider [phone] Rajni García RN Unavailable [phone] April Michele MD Unavailable [phone] Lee Hubbard MD Unavailable [phone] Reason for Visit * Reason Onset Date Comments Med Refill 08/28/2023 Encounter Details Date Type Department Care Team (Late st Contact Info) Description 08/28/2023 Telephone [facility] MEDICINE [address] [place], [place] [phone] Wanda Bonilla ANP [address] [place], [place] [phone] Med Refill Social History Tobacco Use Types [...] MG/1.5ML solution pen-injector To be sent to: [facility] documented in this encounter Plan of Treatment Upcoming Encounters Date Type Department Care Team (Late st Contact Info) Description 12/25/2024 11:00 AM EDT Office Visit [facility] MEDICINE [address] [place], [place] [phone] Wanda Bonilla ANP [address] [place] [address] 04/20/2025 2:30 PM EDT Office Visit [facility] OPTOMETRY [address] [place] [address] Smiley Scott, OD [address] [place] [address] documented as of this encounter Visit Diagnoses Not on filedocumented in this encounter Additional Health Concerns Assessment Noted Time PHQ-9 Depression Total Score: 0 08/25/19 23 1:48 PM EST documented as of this encounter Care Teams Sport Psychologist Relationship Specialty Start Date End Date Wanda Bonilla ANP [address] [place] [address] PCP - General Family Medicine 09/03/20 Rajni García, TIM [address] [place] [address] Casket TrimmerLuster Repairer 09/18/24 12/15/24 April Michele MD [address] [facility] [place] [address] Referring Physician Infectious Diseases 10/09/24 Lee Hubbard MD [address] [place] [address] Urology 10/09/24 [facility] cardiology 11/12/23 documented as of this encounter
--- OUTSIDE RECORDS SUMMARY | 2024-12-16 15:11 | XMS_ITS | Encounter Summary ---
Author Organization [employer] Address [address] [place] [address] 7t [place] [address] Care Team Providers Care Leadership Coach Name Role Phone Wanda Bonilla Primary Care Provider Rajni García RN Unavailable [phone] April Michele MD Unavailable [phone] Lee Hubbard MD Unavailable [phone] Reason for Visit * Reason Onset Date Comments Referral 08/30/2022 Encounter Details Date Type Department Care Team ([facility] st Contact Info) Description 08/30/2022 Telephone [facility] MEDICINE [address] [place], [place] [phone] Wanda Bonilla ANP [address] [place], [place] [phone] Referral Social History Tobacco Use Types Packs/Day [...] see a neurologist Please contact pt at [phone] documented in this encounter Plan of Treatment Upcoming Encounters Date Type Department Care Team (Late st Contact Info) Description 12/25/2024 11:00 AM EDT Office Visit [facility] MEDICINE [address] [place] [address] Wanda Bonilla ANP [address] [place] [address] 04/20/2025 2:30 PM EDT Office Visit [facility] OPTOMETRY [address] [place] [address] Tyler, Smiley, OD [address] [place] [address] documented as of this encounter Visit Diagnoses Not on filedocumented in this encounter Additional Health Concerns Assessment Noted Time PHQ-9 Depression Total Score: 0 08/25/19 23 1:48 PM EST documented as of this encounter Care Teams Leadership Coach Relationship Specialty Start Date End Date Wanda Bonilla ANP [address] [place] [address] PCP - General Family Medicine 09/03/20 Rajni García, TIM [address] [place] [address] Filler InViolin Maker Hand 09/18/24 12/15/24 April Michele MD [address] [facility] [address] [place] [address] Referring Physician Infectious Diseases 10/09/24 Lee Hubbard MD [address] [place] [address] Urology 10/09/24 [facility] cardiology 11/12/23 documented as of this encounter
--- OUTSIDE RECORDS SUMMARY | 2024-12-16 15:12 | XMS_ITS | Encounter Summary ---
Author Organization [employer] Address [address] [place] [address] Care Team Providers Care Clothing Cutter Name Role Phone Irene Wanda HARO Primary Care Provider [phone] Rajni García RN Unavailable [phone] April Michele MD Unavailable [phone] Lee Hubbard MD Unavailable [phone] Encounter Details Date Type Department Care Team (Late st Contact Info) Description 11/25/2024 Orders Only [facility] MED & PEDS [address] [place] [address] Dina Crawford Social History Tobacco Use Types Packs/Day Years [...] Description 12/25/2024 11:00 AM EDT Office Visit [facility] MEDICINE [address] [place] [address] Wanda Bonilla, ANP [address] [place] [address] 04/20/2025 2:30 PM EDT Office Visit [facility] OPTOMETRY [address] [place] [address] Tyler, Smiley, OD [address] [place] [address] documented as of this encounter Procedures Procedure Name Priority Date/Time Associated Diagnosis Comments HPV MRNA E6/E7 REFLEX TO HPV 16, 18/45 Routine 06/17/2024 12:00 AM EST documented in this encounter Results * HPV mRNA E6/E7 w/Reflex to HPV Genotypes 16, 18/45 (06/17/2024 12:00 AM EST) us Historical Provider LAB CYTOLOGY ORDERABLES F inal Result [facility] [address] [place] [address] [phone] documented in this encounter Visit Diagnoses Not on filedocumented in this encounter Additional Health Concerns Assessment Noted Time PHQ-9 Depression Total Score: 5 11/23/19 24 1:33 PM EDT documented as of this encounter Care Teams Clothing Cutter Relationship Specialty Start Date End Date Wanda Bonilla ANP [address] [place] [address] PCP - General Family Medicine 09/03/20 Rajni García RN [address] [place] [address] Heel GummerDirector Records Management 09/18/24 12/15/24 April Michele MD [address] [facility] [address] [place] [address] Referring Physician Infectious Diseases 10/09/24 Lee Hubbard MD [address] [place] [address] Urology 10/09/24 [facility] cardiology 11/12/23 documented as of this encounter
--- OUTSIDE RECORDS SUMMARY | 2024-12-16 15:12 | XMS_ITS | Encounter Summary ---
Author Organization [employer] Address [address] [facility] 7t [place] [address] Care Team Providers Care Pyridine Operator Name Role Phone Irene Wanda HARO Primary Care Provider Rajni García RN Unavailable [phone] April Michele MD Unavailable [phone] Lee Hubbard MD Unavailable [phone] Reason for Visit * Reason Comments Med Refill Encounter Details Date Type Department Care Team (Late st Contact Info) Description 03/14/2024 Refill [facility] MEDICINE [address] [place] [address] Shivani Small CNM [address] [place], [place] [phone] Social History Tobacco Use Types Packs/Day Years [...] Description 12/25/2024 11:00 AM EDT Office Visit [facility] MEDICINE [address] [place] [address] Wanda Bonilla ANP [address] [place] [address] 04/20/2025 2:30 PM EDT Office Visit [facility] OPTOMETRY [address] [place] [address] Tyler, Smiley, OD [address] [place] [address] documented as of this encounter Visit Diagnoses Not on filedocumented in this encounter Additional Health Concerns Assessment Noted Time PHQ-9 Depression Total Score: 5 11/23/19 24 1:33 PM EDT documented as of this encounter Care Teams Pyridine Operator Relationship Specialty Start Date End Date Wanda Bonilla ANP [address] [place] [address] PCP - General Family Medicine 09/03/20 Rajni García RN [address] [place] [address] Transportation Project ManagerMarketing Traffic Manager 09/18/24 12/15/24 April Michele MD [address] [facility] [address] [place] [address] Referring Physician Infectious Diseases 10/09/24 Lee Hubbard MD [address] [facility] [address] [place] [address] Urology 10/09/24 [facility] cardiology 11/12/23 documented as of this encounter
--- OUTSIDE RECORDS SUMMARY | 2024-12-16 15:12 | XMS_ITS | Encounter Summary ---
Author Organization [employer] Address [address] [facility] 7t [place] [address] Care Team Providers Care Power Line Installer Name Role Phone Wanda Bonilla Primary Care Provider [phone] Rajni García RN Unavailable [phone] April Michele MD Unavailable [phone] Lee Hubbard MD Unavailable [phone] Reason for Visit * Reason Comments Med Refill Encounter Details Date Type Department Care Team (Late st Contact Info) Description 12/13/2024 Refill [facility] [address] [place] [address] Wanda Bonilla ANP 230 [place], [place] [phone] Social History Tobacco Use Types Packs/Day Years [...] Description 12/25/2024 11:00 AM EDT Office Visit [facility] [address] [place] [address] Wanda Bonilla ANP 230 [place] [address] 04/20/2025 2:30 PM EDT Office Visit [facility] [address] [place] [address] Tyler, Smiley, OD 230 [place] [address] documented as of this encounter Visit Diagnoses Not on filedocumented in this encounter Additional Health Concerns Assessment Noted Time PHQ-9 Depression Total Score: 5 11/23/19 24 1:33 PM EDT documented as of this encounter Care Teams Power Line Installer Relationship Specialty Start Date End Date Wanda Bonilla ANP 230 [place] [address] PCP - General Family Medicine 09/03/20 Rajni García, RN 505 [place] [address] Aircraft Cleaning SupervisorTax Director 09/18/24 12/15/24 April Michele MD [address] [facility] [address] [place] [address] Referring Physician Infectious Diseases 10/09/24 Lee Hubbard MD [address] [place] [address] Urology 10/09/24 [facility] cardiology 11/12/23 documented as of this encounter
--- OUTSIDE RECORDS SUMMARY | 2024-12-16 15:12 | XMS_ITS | Encounter Summary ---
Author Organization [employer] Address [address] [facility] [address] 7t [place] [address] Care Team Providers Care Cutting Machine Fixer Name Role Phone Irene Wanda HARO Primary Care Provider [phone] Rajni García RN Unavailable [phone] April Michele MD Unavailable [phone] Lee Hubbard MD Unavailable [phone] Encounter Details Date Type Department Care Team (Late st Contact Info) Description 08/14/2024 Telephone [facility] [address] [place] [address] Adolfo Fernando, VishnuD Social History Tobacco Use [...] Description 12/25/2024 11:00 AM EDT Office Visit [facility] [address] [place] [address] Wanda Bonilla ANP 230 [place] [address] 04/20/2025 2:30 PM EDT Office Visit [facility] [address] [place] [address] Smiley Scott, OD 230 [place] [address] documented as of this encounter Visit Diagnoses Not on filedocumented in this encounter Additional Health Concerns Assessment Noted Time PHQ-9 Depression Total Score: 5 11/23/19 24 1:33 PM EDT documented as of this encounter Care Teams Cutting Machine Fixer Relationship Specialty Start Date End Date Wanda Bonilla ANP [address] [place] [address] PCP - General Family Medicine 09/03/20 Rajni García, RN 505 [place] [address] Transformation CoachMexican Food Machine Tender 09/18/24 12/15/24 April Michele MD [address] [facility] [address] [place] [address] Referring Physician Infectious Diseases 10/09/24 Lee Hubbard MD [address] [place] [address] Urology 10/09/24 [facility] cardiology 11/12/23 documented as of this encounter
--- OUTSIDE RECORDS SUMMARY | 2024-12-16 15:12 | XMS_ITS | Encounter Summary ---
Author Organization [employer] Address [address] [facility] 7t [place] [address] Care Team Providers Care Communications Administrator Name Role Phone Wanda Bonilla Primary Care Provider [phone] Rajni García RN Unavailable [phone] April Michele MD Unavailable [phone] Lee Hubbard MD Unavailable [phone] Reason for Visit * Reason Onset Date Comments Appointment Request 06/12/2023 Encounter Details Date Type Department Care Team ([facility] st Contact Info) Description 06/12/2023 Telephone [facility] [address] [place], [place] [phone] Wanda Bonilla ANP 230 [place], [place] [phone] Appointment Request Social History Tobacco Use Types Packs/Day Years Used Date Smoking Tobacco: Every Day Cigarettes Passive Smoke Exposure: Current Smokeless Tobacco: Never Alcohol Use Standard Drinks/Week Comments Not Currently 0 (1 standard drink = 0.6 oz pur e alcohol) Depression Answer Date Recorded Patient Health Questionnaire-9 Score 0 08/25/2022 Housing Stability Answer Date Recorded What is your housing situation today? I have dhavalmana lozada 05/14/[address] you [...] Description 12/25/2024 11:00 AM EDT Office Visit [facility] [address] [place] [address] Wanda Bonilla ANP [address] [place] [address] 04/20/2025 2:30 PM EDT Office Visit [facility] OPT[facility] [address] [place] [address] Tyler, Smiley, OD 230 [place] [address] documented as of this encounter Visit Diagnoses Not on filedocumented in this encounter Additional Health Concerns Assessment Noted Time PHQ-9 Depression Total Score: 0 08/25/19 23 1:48 PM EST documented as of this encounter Care Teams Communications Administrator Relationship Specialty Start Date End Date Wanda Bonilla ANP [address] [place] [address] PCP - General Family Medicine 09/03/20 Rajni García, RN [address] [place] [address] Motion Graphics DesignerHead Of Digital Advertising & Integration 09/18/24 12/15/24 April Michele MD [address] [place] [address] [address] [place] [address] Referring Physician Infectious Diseases 10/09/24 Lee Hubbard MD [address] [place] [address] Drive [address] [place] [address] Urology 10/09/24 [facility] cardiology 11/12/23 documented as of this encounter
--- OUTSIDE RECORDS SUMMARY | 2024-12-16 15:12 | XMS_ITS | Encounter Summary ---
Author Organization [employer] Address [address] [facility] 7t [place] [address] Care Team Providers Care Clinical Training Specialist Name Role Phone Wanda Bonilla Primary Care Provider [phone] Rajni García RN Unavailable [phone] April Michele MD Unavailable [phone] Lee Hubbard MD Unavailable Reason for Visit * Reason Comments Med Refill Encounter Details Date Type Department Care Team (Late st Contact Info) Description 12/10/2024 Refill [facility] 230 [place] [address] Wanda Bonilla ANP 230 [place] [address] Type 2 diabetes mellitus with hyperglycemia, with long-term current use of insulin ([facility]) Social History Tobacco Use Types [...] Description 12/25/2024 11:00 AM EDT Office Visit [facility] [address] [place] [address] Wanda Bonilla ANP [address] [place] [address] 04/20/2025 2:30 PM EDT Office Visit [facility] [address] [place] [address] Tyler, Smiley, OD 230 [place] [address] documented as of this encounter Visit Diagnoses Diagnosis Type 2 diabetes mellitus with hyperglycemia, with long-term current use of insulin ([facility]) documented in this encounter Additional Health Concerns Assessment Noted Time PHQ-9 Depression Total Score: 5 11/23/19 24 1:33 PM EDT documented as of this encounter Care Teams Clinical Training Specialist Relationship Specialty Start Date End Date Wanda Bonilla ANP [address] [place] [address] PCP - General Family Medicine 09/03/20 Rajni García RN 505 [facility] [place] [address] Healthcare Risk Control ConsultantManager Transportation 09/18/24 12/15/24 April Michele MD [address] [facility] [address] [place] [address] Referring Physician Infectious Diseases 10/09/24 Lee Hubbard MD [address] [place] [address] Urology 10/09/24 [facility] cardiology 11/12/23 documented as of this encounter
--- OUTSIDE RECORDS SUMMARY | 2024-12-16 15:12 | XMS_ITS | Encounter Summary ---
Author Organization [employer] Address [address] [facility] 7t [place] [address] Care Team Providers Care Track Production Engineer Name Role Phone Wanda Bonilla Primary Care Provider [phone] April Michele MD Unavailable [phone] Lee Hubbard MD Unavailable [phone] Reason for Visit * Reason Comments Care Coordination SDOH/graduate Encounter Details Date Type Department Care Team (Latest Contact Info) Description 12/16/2024 Patient Outreach [facility] [address] [place] [address] Wanda Bonilla ANP [address] [place] [address] Care Coordination (SDOH/graduate) Social History Tobacco Use Types Packs/Day Years [...] encounter Progress Notes * [place] - 12/16/2024 11:50 AM EDT CHW [place]/CM Rajni García RN placed outbound call to patient for follow up on SDOH needs. Patient's name, and address confirmed. Patient states is doing well. Patient is aware of upcoming appts but will still like to have appt reminders. Patient is aware that program will close today, but will like to continue, patient will ask PCP for another referral to CM program. No further questions or concerns. CHW reinforced direct contact information for any additional questions or concerns and extended clinic hours on Mondays and Wednesdays, and Walk-In Urgent Care Located in [facility]. Patient provided with after-hours line for [facility], , which offer nighttime triage service and option to transfer to retail center receptionist provider if needed. CHW discussed with the patient progress made in the CHW Program. Patient notified is being graduated from the Care Management-CHW Program. Patient was educated on how to receive SDOH services in the future. Patient agrees with the plan and will contact us if any future needs arise. documented in this encounter Plan of Treatment Upcoming Encounters Date Type Department Care Team (Late st Contact Info) Description 12/25/2024 11:00 AM EDT Office Visit [facility] [address] [place] [address] Wanda Bonilla ANP [address] [place] [address] 04/20/2025 2:30 PM EDT Office Visit [facility] OPT[facility] [address] [place] [address] Tyler, Smiley, OD 230 [place] [address] documented as of this encounter Visit Diagnoses Not on filedocumented in this encounter Additional Health Concerns Assessment Noted Time PHQ-9 Depression Total Score: 5 11/23/19 24 1:33 PM EDT documented as of this encounter Care Teams Track Production Engineer Relationship Specialty Start Date End Date Wanda Bonilla ANP [address] [place] [address] PCP - General Family Medicine 09/03/20 April Michele MD [address] [facility] [address] [place] [address] Referring Physician Infectious Diseases 10/09/24 Lee Hubbard MD [address] [place] [address] Urology 10/09/24 [facility] cardiology 11/12/23 documented as of this encounter
--- OUTSIDE RECORDS SUMMARY | 2024-12-16 15:12 | XMS_ITS | Encounter Summary ---
Author Organization [employer] Address [address] 7t [place] [address] Care Team Providers Care Instructional Technology Coach Name Role Phone Wanda Bonilla Primary Care Provider [phone] Rajni García RN Unavailable [phone] April Michele MD Unavailable [phone] Lee Hubbard MD Unavailable [phone] Encounter Details Date Type Department Care Team (Late st Contact Info) Description 09/26/2023 Telephone [facility] 230 [place] [address] Wanda Bonilla ANP 230 [place] [address] Social History Tobacco Use Types Packs/Day Years [...] Description 12/25/2024 11:00 AM EDT Office Visit [facility] [address] [place] [address] Wanda Bonilla ANP 230 [place] [address] 04/20/2025 2:30 PM EDT Office Visit [facility] OPT[facility] [address] [place] [address] Smiley Scott, OD 230 [place] [address] documented as of this encounter Visit Diagnoses Not on filedocumented in this encounter Additional Health Concerns Assessment Noted Time PHQ-9 Depression Total Score: 0 08/25/19 23 1:48 PM EST documented as of this encounter Care Teams Instructional Technology Coach Relationship Specialty Start Date End Date Wanda Bonilla ANP 230 [place] [address] PCP - General Family Medicine 09/03/20 Rajni García, RN 505 [place] [address] Resistor WinderElevator Operator 09/18/24 12/15/24 April Michele MD [address] [facility] [address] [place] [address] Referring Physician Infectious Diseases 10/09/24 Lee Hubbard MD [address] [place] [address] Drive [address] [place] [address] Urology 10/09/24 [facility] cardiology 11/12/23 documented as of this encounter
--- OUTSIDE RECORDS SUMMARY | 2024-12-16 15:12 | XMS_ITS | Encounter Summary ---
Author Organization [employer] Address [address] [place] [address] 7t [place] [address] Care Team Providers Care Iv Technician Name Role Phone Wanda Bonilla Primary Care Provider [phone] Rajni García RN Unavailable [phone] April Michele MD Unavailable [phone] Lee Hubbard MD Unavailable [phone] Reason for Visit * Reason Onset Date Comments Med Refill 10/01/2023 Encounter Details Date Type Department Care Team (Late st Contact Info) Description 10/01/2023 Telephone [facility] 230 [place], [place] [phone] Wanda Bonilla ANP 230 [place], [place] [phone] Med Refill Social History Tobacco Use Types [...] 250 MG tablet To be sent to: [facility] pharmacy documented in this encounter Plan of Treatment Upcoming Encounters Date Type Department Care Team (Late st Contact Info) Description 12/25/2024 11:00 AM EDT Office Visit [facility] [address] [place] [address] Wanda Bonilla ANP [address] [place] [address] 04/20/2025 2:30 PM EDT Office Visit [facility] [address] [place] [address] Smiley Scott, OD 230 [place] [address] documented as of this encounter Visit Diagnoses Not on filedocumented in this encounter Additional Health Concerns Assessment Noted Time PHQ-9 Depression Total Score: 0 08/25/19 23 1:48 PM EST documented as of this encounter Care Teams Iv Technician Relationship Specialty Start Date End Date Wanda Bonilla ANP 230 [place] [address] PCP - General Family Medicine 09/03/20 Rajni García, TIM 505 [place] [address] Facing End TrimmerCasing Trimmer 09/18/24 12/15/24 April Michele MD [address] [place] [address] [address] [place] [address] Referring Physician Infectious Diseases 10/09/24 Lee Hubbard MD [address] [place] [address] Urology 10/09/24 [facility] cardiology 11/12/23 documented as of this encounter
--- OUTSIDE RECORDS SUMMARY | 2024-12-16 15:12 | XMS_ITS | Encounter Summary ---
Author Organization [employer] Address [address] [facility] 7t [place] [address] Care Team Providers Care Forklift Wheel Loader Name Role Phone Wanda Bonilla Primary Care Provider Rajni García RN Unavailable [phone] April Michele MD Unavailable [phone] Lee Hubbard MD Unavailable [phone] Reason for Visit * Reason Onset Date Comments Returning Call 01/08/2024 Encounter Details Date Type Department Care Team (Late st Contact Info) Description 01/08/2024 Telephone [facility] [address] [place], [place] [phone] Wanda Bonilla ANP [address] [place], [place] [phone] Returning Call Social History Tobacco Use Types [...] she received a call from day care supervisor regarding new program in [facility], bond writer did not see anything documented but advised will forward message. documented in this encounter Plan of Treatment Upcoming Encounters Date Type Department Care Team (Late st Contact Info) Description 12/25/2024 11:00 AM EDT Office Visit [facility] 230 [place] [address] Wanda Bonilla, ANP [address] [place] [address] 04/20/2025 2:30 PM EDT Office Visit [facility] [address] [place], [place] [phone] Smiley Scott OD 230 [place] [address] documented as of this encounter Visit Diagnoses Not on filedocumented in this encounter Additional Health Concerns Assessment Noted Time PHQ-9 Depression Total Score: 5 11/23/19 24 1:33 PM EDT documented as of this encounter Care Teams Forklift Wheel Loader Relationship Specialty Start Date End Date Wanda Bonilla ANP 230 [place] [address] PCP - General Family Medicine 09/03/20 Rajni García, TIM 505 [place] [address] Pst SpecialistLime Burner 09/18/24 12/15/24 April Michele MD [address] [facility] [address] [place] [address] Referring Physician Infectious Diseases 10/09/24 Lee Hubbard MD [address] [place] [address] Urology 10/09/24 [facility] cardiology 11/12/23 documented as of this encounter
--- OUTSIDE RECORDS SUMMARY | 2024-12-16 15:12 | XMS_ITS | Encounter Summary ---
Author Organization [employer] Address [address] [facility] 7t [place] [address] Care Team Providers Care Flow Floor Attendant Name Role Phone Wanda Bonilla Primary Care Provider Rajni García RN Unavailable [phone] April Michele MD Unavailable [phone] Lee Hubbard MD Unavailable [phone] Reason for Visit * Reason Comments Med Refill Encounter Details Date Type Department Care Team (Late st Contact Info) Description 08/03/2024 Refill [facility] MED[facility]INE 230 [place] [address] Wanda Bonilla ANP 230 [place] [address] Essential hypertension Social History Tobacco Use Types [...] Description 12/25/2024 11:00 AM EDT Office Visit [facility] MEDICINE [address] [place] [address] Wanda Bonilla ANP 230 [place] [address] 04/20/2025 2:30 PM EDT Office Visit [facility] OPTOMETRY [address] [place] [address] Tyler, Smiley, OD 230 [place] [address] documented as of this encounter Visit Diagnoses Diagnosis Essential hypertension Unspecified essential hypertension documented in this encounter Additional Health Concerns Assessment Noted Time PHQ-9 Depression Total Score: 5 11/23/19 24 1:33 PM EDT documented as of this encounter Care Teams Flow Floor Attendant Relationship Specialty Start Date End Date Wanda Bonilla ANP 230 [place] [address] PCP - General Family Medicine 09/03/20 Rajni García RN [address] [place] [address] Filling Machine TenderFood Inspector 09/18/24 12/15/24 April Michele MD [address] [facility] [address] [place] [address] Referring Physician Infectious Diseases 10/09/24 Lee Hubbard MD [address] [facility] [address] [place] [address] Urology 10/09/24 [facility] cardiology 11/12/23 documented as of this encounter
--- OUTSIDE RECORDS SUMMARY | 2024-12-16 15:12 | XMS_ITS | Encounter Summary ---
Author Organization [employer] Address [address] [facility] 7t [place] [address] Care Team Providers Care Furniture Removalist Name Role Phone Wanda Bonilla Primary Care Provider [phone] Rajni García RN Unavailable [phone] April Michele MD Unavailable [phone] Lee Hubbard MD Unavailable [phone] Reason for Visit * Reason Onset Date Comments Results 09/12/2023 Encounter Details Date Type Department Care Team ([facility] st Contact Info) Description 09/12/[address] [facility] MEDICINE [address] [place], [place] [phone] Wanda Bonilla ANP 230 [place], [place] [phone] Results Social History Tobacco Use Types Packs/Day [...] (in chart) Date when done: 08/30 Facility: [facility] Type of results: US neck Date when done: sometime last week per pt Facility: [facility] vascular services Please contact pt at [phone] documented in this encounter Plan of Treatment Upcoming Encounters Date Type Department Care Team (Late st Contact Info) Description 12/25/2024 11:00 AM EDT Office Visit [facility] MEDICINE [address] [place], [place] [phone] Wanda Bonilla ANP 230 [place] [address] 04/20/2025 2:30 PM EDT Office Visit [facility] OPTOMETRY [address] [place] [address] Smiley Scott, OD 230 [place] [address] documented as of this encounter Visit Diagnoses Not on filedocumented in this encounter Additional Health Concerns Assessment Noted Time PHQ-9 Depression Total Score: 0 08/25/19 23 1:48 PM EST documented as of this encounter Care Teams Furniture Removalist Relationship Specialty Start Date End Date Wanda Bonilla ANP 230 [place] [address] PCP - General Family Medicine 09/03/20 Rajni García, TIM [address] [place] [address] Lining InserterJunior Linux Systems Administrator 09/18/24 12/15/24 April Michele MD [address] [facility] [address] [place] [address] Referring Physician Infectious Diseases 10/09/24 Lee Hubbard MD [address] [place] [address] Urology 10/09/24 [facility] cardiology 11/12/23 documented as of this encounter
--- OUTSIDE RECORDS SUMMARY | 2024-12-16 15:12 | XMS_ITS | Encounter Summary ---
Author Organization [employer] Address [address] [place] [address] [address] [place] [address] Care Team Providers Care Greens Or Grounds Superintendent Name Role Phone Bonilla Wanda HARO Primary Care Provider [phone] April Michele MD Unavailable [phone] Lee Hubbard MD Unavailable [phone] Reason for Referral * Consultation (Routine) - Authorized Specialty Diagnoses / Procedures Referred By Contac t Referred To Contact Pain Medicine Diagnoses Chronic pain of both shoulders Adolfo Benitez MD [address] [place] [address] Phone: tel: fax: [address] Phone: tel: fax: Referral ID Status Reason Start Date Expiration Date Visits Requested Visits Authorized [id number] Authorized Specialty Services Required 12/16/2024 12/16/2025 6 6 Reason for Visit * Reason Comments Arthritis pain when urinating Earache Encounter Details Date Type Department Care Team (Late st Contact Info) Description 12/16/2024 8:40 AM EDT Office Visit [facility] [address] [place] [address] Adolfo Benitez MD [address] [place] [address] Chronic pain of both shoulders (Primary Dx); Acute otitis externa of right ear, unspecified type; Dysuria; Hypertension, unspecified type; Pain Social History Tobacco Use Types Packs/Day Years [...] your housing situation today? I have dhaval [place] 09/23/[address] you li [...] Sign Reading Time Taken Comments Blood Pressure 149/84 12/16/2024 8:42 AM EDT Pulse 65 12/16/2024 8:42 AM EDT Temperature 37.1 ??C (98.7 ??F) 12/16/2024 8:42 AM ED T Respiratory Rate 20 12/16/2024 8:42 AM EDT Oxygen Saturation 98% 12/16/2024 8:42 AM EDT Inhaled Oxygen Concentration - - Weight 78.7 kg (173 lb 9.6 oz) 12/16/2024 8:42 A M EDT Height - - Body Mass Index 30.75 09/08/2024 8:43 AM EST documented in this encounter Progress Notes * Adolfo Benitez MD - 12/16/2024 8:40 AM EDT Subjective Patient ID: Tank Max is a 59 y.o. female. Visitor Services Information Assistant: Lawrence. NATIVIDAD Zacarias came to [facility] today with several concerns: 1) Bilat shoulder pain started months ago due to arthritis and neuropathy , tried Tylenol, Tramadol with no relief, unable to sleep, pain also worse with ROM of shoulders that radiates to hands. 2) right ear pain that started 2 days ago, stabbing, radiates down the right side of body. No hearing deficit or ear drainage. Does not use Q-tips. 3) Starting 1 week ago, she had onset of burning on urination, no urgency, frequency, hematuria, flank pain, fever, chills, n/v. States has had vaginal swabs done several times, and no infections were found. PCP office note from 09/23/2024 included dx chronic pain of both shoulders . X-rays of bilat shoulders done 09/23/2024 read as essentially normal Cervical spine x-rays read as: IMPRESSION: 1. No acute finding of the cervical spine. 2. Mild multilevel disc degeneration. Lives alone. Not employed. Smokes 2 cigarettes/day. Declines NRT. Patient Active Problem List Diagnosis Date Noted Elevated troponin 10/09/2024 KAY (dyspnea on exertion) 09/08/2024 Other microscopic hematuria 04/30/2024 Dysuria 04/30/2024 Chest pain 12/07/2023 Type 2 diabetes mellitus with hyperlipidemia ([facility]) ([facility]) 08/29/2023 Adverse effect of COVID-19 vaccine 04/24/2023 Calcaneal spur, left 04/24/2023 Renal stones 04/24/2023 Chronic headaches 04/24/2023 PAD (peripheral artery disease) ([facility]) 04/24/2023 Sleep disorder, unspecified 04/24/2023 Somnolence, daytime 04/24/2023 Onychomycosis 05/13/2018 Anxiety 02/04/2018 Depressed bipolar I disorder ([facility]) 12/21/2017 Cirrhosis of liver ([facility]) 07/27/2017 Dystrophia unguium 05/12/2015 Prolactinoma ([facility]) 05/12/2015 Diabetic polyneuropathy ([facility]) 07/09/2014 Carpal tunnel syndrome 06/03/2013 Benign neoplasm of pituitary gland ([facility]) 06/03/2013 Hyperlipidemia 04/29/2013 Type 2 diabetes mellitus, uncontrolled 04/29/2013 Panic disorder without agoraphobia 02/25/2013 Asthma 02/28/2012 Chronic hepatitis C ([facility]) 01/02/2012 Hypertension 12/14/2011 Class 1 obesity 08/02/2023 Diabetic retinopathy ([facility]) 08/02/2023 Bloody discharge from right nipple 02/23/2023 History of prolactinoma 12/19/2022 Perforating dermatosis 08/18/2022 The following portions of the chart were reviewed this encounter and updated as appropriate: Tobacco Allergies Meds Problems Med Hx Surg Hx Fam Hx Review of Systems Constitutional: Negative for fever. HENT: Positive for ear pain. Respiratory: Negative for shortness of breath. Cardiovascular: Negative for chest pain. Gastrointestinal: Negative for abdominal pain. Musculoskeletal: Positive for arthralgias. Skin: Negative for rash. Neurological: Negative for headaches. Objective Physical Exam Constitutional: Appearance: Normal appearance. HENT: Right Ear: Tympanic membrane and external ear normal. Left Ear: Tympanic [...] is normal. Breath sounds: Normal breath sounds. Musculoskeletal: General: Normal range of motion. Cervical back: No tenderness. Comments: Abduction of both shoulders limited to 90 degrees due to pain. Skin: Findings: No rash. Neurological: Mental Status: She is alert. Sensory: Sensation is intact. Motor: Motor function is intact. Gait: Gait is intact. Psychiatric: Mood and Affect: Mood normal. Behavior: Behavior normal. Procedures Assessment/Plan Diagnoses and all orders for this visit: Chronic pain of both shoulders Prescribed lidocaine patches, which she states has helped in the past. Continue Tylenol. Try ice or heat. Referred to pain management. Acute otitis externa of right ear, unspecified type Prescribed Cipro HC eardrops. Return to clinic if not improving Dysuria Urine C&S is pending. She declined vaginal swabbing to check for vaginitis. Return to clinic if not improving Hypertension, unspecified type She did not take her BP meds this morning. States home BP readings are normal with systolics in the 120s and diastolics in the 70s. Advised to take her medication when she returns home. - lidocaine (Lidoderm) 5 % patch; APPLY 1 PATCH TOPICALLY TO SKIN, LEAVE ON FOR 12 HOURS AND OFF FOR 12 HOURS DIRECTED. May use 2 patches at once. - POCT urinalysis dipstick manually resulted - Culture, Urine, Routine Other orders - ciprofloxacin-hydrocortisone (Cipro HC Otic) otic suspension; Administer 3 drops into the right ear 2 times daily for 7 days. documented in this encounter Plan of Treatment Upcoming Encounters Date Type Department Care Team (Late st Contact Info) Description 12/25/2024 11:00 AM EDT Office Visit [facility] [address] [place] [address] Wanda Bonilla ANP [address] [place] [address] 04/20/2025 2:30 PM EDT Office Visit [facility] [address] [place] [address] Smiley Scott, OD [address] [place] [address] Scheduled Orders Name Type Priority Associated Diagnoses Orde r Schedule Culture, Urine, Routine Microbiology Routine Pain Ordered: 12/16/2024 Scheduled Referrals Name Type Priority Associated Diagnoses Orde r Schedule Referral to Pain Medicine Outpatient Referral Routine Chronic pain of both shoulders Expected: 12/16/2024 (Approximate), Expires: 12/16/2025 documented as of this encounter Procedures Procedure Name Priority Date/Time Associated Diagnosis Comments POCT URINALYSIS DIPSTICK Routine 12/16/2024 9:12 AM EDT Pain documented in this encounter Results * POCT urinalysis dipstick manually resulted (12/16/2024 9:12 AM EDT) Color, UA Yellow Clarity, UA Clear Glucose, UA Negative Bilirubin, UA Negative Ketones, UA Negative Spec Grav, UA 1.015 Blood, UA Negative Negative, None Detected pH, UA 6.5 Protein, UA Trace Urobilinogen, UA 0.2 Leukocytes, UA Negative Negative, Rare, Trace Nitrite, UA Negative Negative, None Detected Urine 12/16/2024 9:12 AM EDT Adolfo Benitez MD POINT OF CARE TEST ENTER/EDIT OR DERABLES Final Result documented in this encounter Visit Diagnoses Diagnosis Chronic pain of both shoulders- Primary Acute otitis externa of right ear, unspecified type Dysuria Hypertension, unspecified type Pain Generalized pain documented in this encounter Additional Health Concerns Assessment Noted Time PHQ-9 Depression Total Score: 5 11/23/19 24 1:33 PM EDT documented as of this encounter Care Teams Greens Or Grounds Superintendent Relationship Specialty Start Date End Date Wanda Bonilla ANP [address] [place] [address] PCP - General Family Medicine 09/03/20 April Michele MD [address] [place] [address] Referring Physician Infectious Diseases 10/09/24 Lee Hubbard MD [address] [place] [address] Urology 10/09/24 [facility] cardiology 11/12/23 documented as of this encounter
--- OUTSIDE RECORDS SUMMARY | 2024-12-16 15:12 | XMS_ITS | Encounter Summary ---
Author Organization [employer] Address [address] [facility] [address] [place] [address] Care Team Providers Care Pearl Digger Name Role Phone Irene Wanda HARO Primary Care Provider [phone] Rajni García RN Unavailable [phone] April Michele MD Unavailable [phone] Lee Hubbard MD Unavailable [phone] Reason for Visit * Reason Comments Med Refill Encounter Details Date Type Department Care Team (Late st Contact Info) Description 03/20/2024 Refill [facility] [address] [place] [address] Shivani Small CNM [address] [place], [place] [id number] Social History Tobacco Use Types Packs/Day Years [...] Description 12/25/2024 11:00 AM EDT Office Visit [facility] [address] [place] [address] Wanda Bonilla ANP [address] [place] [address] 04/20/2025 2:30 PM EDT Office Visit [facility] [address] [place] [address] Tyler, Smiley, OD [address] [place] [address] documented as of this encounter Visit Diagnoses Not on filedocumented in this encounter Additional Health Concerns Assessment Noted Time PHQ-9 Depression Total Score: 5 11/23/19 24 1:33 PM EDT documented as of this encounter Care Teams Pearl Digger Relationship Specialty Start Date End Date Wanda Bonilla ANP [address] [place] [address] PCP - General Family Medicine 09/03/20 Rajni García RN [address] [place] [id number] [employer] 09/18/24 12/15/24 April Michele MD [address] [facility] [address] [place] [address] Referring Physician Infectious Diseases 10/09/24 Lee Hubbard MD [address] [facility] [address] [place] [address] Urology 10/09/24 [facility] cardiology 11/12/23 documented as of this encounter
--- OUTSIDE RECORDS SUMMARY | 2024-12-16 15:12 | XMS_ITS | Clinical Summary ---
Author Organization [employer] Address [address] [place] [address] [address] [place] [address] Care Team Providers Care Gypsum Roofer Name Role Phone Irene Sandra HARO Primary Care Provider [phone] April Michele MD Unavailable Lee Hubbard MD Unavailable [phone] Allergies Active Allergy Reactions Criticality Noted Date Comments Dulaglutide 04/21/2021 Other reaction(s): GI Problems Morphine Abdominal Pain 02/15/2024 Tramadol Other Low 10/09/2024 nightmares Medications Emollient (Eucerin Original Healing) lotion use [...] SHORTNESS OF BREATH 90 mL 023 Active albuterol (Ventolin HFA) 108 (90 [...] for acid reflux 60 tablet 1 Active hydrocortisone 1 % creamIndications :Rash Apply topically 2 times daily. 45 g 024 Active budesonide (Pulmicort Flexhaler) 180 MCG/ACT inhalerIndicatio ns:Asthma, unspecified asthma severity, unspecified whether complicated, unspecified whether persistent Inhale 2 puffs 2 times daily. Rinse mouth after use. 1 each 024 2024 Active Stool Softener/Laxativ e 50-8.6 MG tablet TAKE 2 TABLETS BY MOUTH EVERY DAY AT BEDTIME Active Diclofenac Sodium 1 % gel APPLY 2 GRAMS TOPICALLY EVERY 6 HOURS 100 g 024 Active rosuvastatin (Crestor) 5 MG tabletIndication s:Type 2 diabetes mellitus with hyperlipidemia (CMS/HCC) ([facility]) TAKE 1 TABLET BY MOUTH EVERY EVENING 90 tablet 3 024 Active pioglitazone (Actos) 15 MG tabletIndication s:Type 2 diabetes mellitus with hyperlipidemia (CMS/HCC) ([facility]) TAKE 1 TABLET BY MOUTH EVERY MORNING 90 tablet 3 024 Active lisinopril 40 MG tablet TAKE 1 TABLET BY MOUTH EVERY EVENING 90 tablet 3 Active Aspirin Low Dose 81 MG EC tablet TAKE 1 TABLET BY MOUTH EVERY EVENING 90 tablet 3 024 Active TRUEplus Lancets 33G misc TEST BLOOD SUGAR THREE TIMES DAILY 100 each 11 024 Active amLODIPine (Norvasc) 10 MG tabletIndication s:Essential hypertension TAKE 1 TABLET BY MOUTH EVERYDAY AT NOON 90 tablet 3 024 Active insulin pen needle (Easy Touch Pen [place]) 31G X 8 mm miscIndications: Diabetic polyneuropathy associated with type 2 diabetes mellitus ([facility]) USE DIRECTED FOUR TIMES DAILY 100 each 11 025 Active estradiol (Estrace) 0.1 MG/GM vaginal cream Insert 1 g into the vagina Once per day. 1g vaginally x 14d, then twice weekly thereafter 45 g 2 025 Active Blood Pressure Monitoring (Omron 3 Series BP Monitor) device Use as directed 1x/d 1 each 025 Active Blood Glucose Monitoring Suppl (LearnSprout [place] Lite) w/Device kit Use to test blood sugar 1x times daily 1 kit 025 Active insulin lispro (HumaLOG) 100 UNIT/ML injectionIndicat ions:Type 2 diabetes mellitus with hyperlipidemia (CMS/HCC) ([facility]) INJECT 20 UNITS SUBCUTANEOUSLY THREE TIMES DAILY WITH MEALS 15 mL 11 025 Active lansoprazole (Prevacid) [address] capsuleIndicatio ns:Heartburn TAKE 1 CAPSULE BY MOUTH EVERY MORNING BEFORE BREAKFAST DO NOT BREAK, CRUSH, DISSOLVE OR CHEW 90 capsule 1 025 Active butalbital-aceta minophen-caffein e 50-325-40 MG tabletIndication s:Nonintractable episodic headache, unspecified headache type Take 1 tablet as needed for migraine once, can repeat after 2 hours, do not exceed more than 4 tablets in 24 hours or use more than 3 days in 1 month 18 tablet 025 Active Ozempic, 0.25 or 0.5 MG/DOSE, 2 MG/3ML solution pen-injectorIndi cations:Diabetic polyneuropathy associated with type 2 diabetes mellitus ([facility]/HCC) INJECT 0.5 MG SUBCUTANEOUSLY EVERY 7 DAYS IN THE ABDOMEN, THIGHS, OR UPPER ARM, ROTATE INJECTION SITES. ROTATE INJECTION SITES 3 mL 1 025 Active rOPINIRole (Requip) 0.5 MG tabletIndication s:Restless legs TAKE 1 TABLET BY MOUTH AT BEDTIME 1-3 HOURS BEFORE BEDTIME 30 tablet 2 Active carvedilol (Coreg) 6.25 MG tabletIndication s:Primary hypertension TAKE 1 TABLET BY MOUTH TWICE DAILY AT NOON AND BEDTIME 180 tablet Active tamsulosin (Flomax) 0.4 MG 24 hr capsule TAKE 1 CAPSULE BY MOUTH EVERY DAY 30 capsule Active glucose blood (FREESTYLE LITE) test strip TEST BLOOD SUGAR THREE TIMES DAILY 100 strip 11 Active Lantus SoloStar 100 UNIT/ML penIndications:T ype 2 diabetes mellitus with hyperglycemia, with long-term current use of insulin ([facility]) INJECT 54 UNITS SUBCUTANEOUSLY EVERY DAY 15 mL 3 Active gabapentin (Neurontin) 300 MG capsule TAKE 1 CAPSULE BY MOUTH TWICE DAILY IN THE MORNING AND IN THE EVENING and TAKE 2 CAPSULES BY MOUTH EVERY DAY AT BEDTIME 120 capsule 3 Active D3-1000 25 MCG (1000 UT) capsuleIndicatio ns:Low vitamin D level TAKE 1 CAPSULE BY MOUTH EVERY MORNING 90 capsule 2 Active lidocaine (Lidoderm) 5 % patchIndications :Pain APPLY 1 PATCH TOPICALLY TO SKIN, LEAVE ON FOR 12 HOURS AND OFF FOR 12 HOURS DIRECTED. May use 2 patches at once. 60 patch 2 Active ciprofloxacin-hy drocortisone (Cipro HC Otic) otic suspension Administer 3 drops into the right ear 2 times daily for 7 days. 10 mL 025 2024 Active FREESTYLE LITE test strip TEST BLOOD SUGAR THREE TIMES DAILY 100 strip 11 024 2024 Discontinued(R eorder (will not trigger notification to Pharmacy)) D3-1000 25 MCG (1000 UT) capsuleIndicatio ns:Low vitamin D level TAKE 1 CAPSULE BY MOUTH EVERY MORNING 90 capsule 2 024 2024 Discontinued Lantus SoloStar 100 UNIT/ML penIndications:T ype 2 diabetes mellitus with hyperglycemia, with long-term current use of insulin (CMS/HCC) INJECT 54 UNITS SUBCUTANEOUSLY EVERY DAY 15 mL 3 025 2024 Discontinued gabapentin (Neurontin) 300 MG capsule TAKE 1 CAPSULE BY MOUTH TWICE DAILY IN THE MORNING AND IN THE EVENING and TAKE 2 CAPSULES BY MOUTH EVERY DAY AT BEDTIME 120 capsule 3 025 2024 Discontinued carvedilol (Coreg) 6.25 MG tabletIndication s:Primary hypertension TAKE 1 TABLET BY MOUTH TWICE DAILY AT NOON AND BEDTIME 180 tablet 025 2024 Discontinued tamsulosin (Flomax) 0.4 MG 24 hr capsule Take 1 capsule (0.4 mg) by mouth Once per day. 30 capsule 025 2024 Discontinued lidocaine (Lidoderm) 5 % patchIndications :Pain APPLY 1 PATCH TOPICALLY TO SKIN, LEAVE ON FOR 12 HOURS AND OFF FOR 12 HOURS DIRECTED 30 patch 2 025 2024 Discontinued(R eorder (will not trigger notification to Pharmacy)) Hospital, Clinic, or Other Facility Administered Medication Ordered Dose Route Frequency Start Date End Date Status nitroglycerin (Nitrostat) SL tablet 0.4 mgIndications:Chest pain, unspecified type 0.4 mg SL Every 5 min PRN 10/22/2023 Active Active Problems Problem Noted Date Diagnosed Date Elevated troponin 10/09/2024 Overview (10/09/2024): Regarding her elevated troponins she was briefly hospitalized in October 2023 for this in context of chest pain and discharge diagnosis was NSTEMI however they did not give patient DAPT nor send her for cardiac cath so I am not confident in this diagnosis. She did have stress test while admitted. She did get established with [facility] cardiology. I will request updated notes. Patient was admitted to the hospital because of chest pain found to have mild elevation troponin: Initially started on heparin drip, troponin flat, echo was done : ef 60% ,no evidence of regional wall motion abnormalities. Myocardial perfusion imaging study shows normal myocardial perfusion. Chest pain seems to be resolved,Left ventricular hypertrophy could also additionally contribute to elevated troponins . Patient will be going home-continue aspirin, statin, beta-blockers at home. Follow-up with PCP ,consider outpatient cardiology follow-up. She had a stress test I believe inpatient at time of admission 11/12/2023. Had stress test inpt Myocardial Perfusion Scan Nuc Med 11/14/23 10:36 Impression: 1. Myocardial perfusion imaging study shows normal myocardial perfusion 2. Gated LVEF is 45%, although visually there are LV systolic function appears to be within normal range 3. Transient ischemic dilatation not present EKG is nondiagnostic for ischemia echo: The left ventricular systolic function is normal. The calculated ejection fraction is 60% by biplane method. - There is severely increased left ventricular wall thickness. - No obvious valvular pathology seen on this study. - There is mild dilatation of the ascending aorta measuring 4.00 cm. KAY (dyspnea on exertion) 09/08/2024 Assessment & Plan (09/08/2024 11:55 AM EST): Unclear if related to pain, probably from kidney stones or uncontrolled hypertension. Patient had cardiac workup in the emergency room recently and ACS was ruled out. Advised regarding tight control of hypertension and pain (unfortunately she is allergic to opiates) with Tylenol and ibuprofen I called [facility] cardiology clinic and they will call [...] Chest pain 12/07/2023 Overview (12/07/2023): Admitted at [facility] 11/11/-11/14/23 ?NSTEMI Optimize BP, DM, minimize risk [...] Psychiatrist decreased seroquel. She was referred to [facility] Breast Specialist for further eval. History [...] 12/21/2017 Cirrhosis of liver 07/27/2017 Overview (10/01/2023): [facility] GI D/t HCV (suspect s/p blood transfusion [...] Encounters Date Type Department Care Team Description 12/16/2024 8:40 AM EDT Office Visit [facility] WALK-IN [address] [address] Adolfo Benitez MD Chronic pain of both shoulders (Primary Dx); Acute otitis externa of right ear, unspecified type; Dysuria; Hypertension, unspecified type; Pain 12/16/2024 Patient Outreach [address] [address] Sandra Vieira ANP Care Coordination (SDOH/graduate) 12/16/[address] [address] Sandra Vieira ANP Care Management (C3CM- f/u call) 12/15/2024 Refill [facility] MEDICINE [address] [place] [phone] Sandra Vieira ANP Low vitamin D level 12/13/2024 Refill [facility] W[facility]-IN [address] [address] Sandra Vieira ANP 12/11/2024 Patient Outreach [facility] [address] [place] [phone] Sandra Vieira ANP Care Coordination (Appt reminder) 12/10/2024 Refill [facility] [address] [place] [phone] Sandra Vieira ANP Type 2 diabetes mellitus with hyperglycemia, with long-term current use of insulin ([facility]) 12/05/2024 Telephone [facility] [address] [place] [phone] Sandra Vieira ANP Care Management (C3CM- f/u call lvm) 12/04/2024 Refill [facility] [address] [place] [phone] Sandra Vieira ANP 12/02/2024 Patient Outreach [address] [address] Sandra Vieira ANP Care Coordination (Appt reminder) 11/25/2024 Orders Only [facility] PEDS [address] [place] [address] Yvette, Dina 11/20/2024 Refill [facility] [address] [place] [phone] Sandra Vieira ANP Primary hypertension 11/20/[address] [address] Sandra Vieira ANP Care Management (C3CM- f/u call) 11/18/2024 Patient Outreach [address] [address] Sandra Vieira ANP Care Coordination (Appt reminder) 11/14/2024 Refill [facility] W[facility] CENTER [address] [place] [phone] Sandra Vieira ANP Restless legs 11/12/2024 Refill [facility] [address] [place] [phone] Celina Salas MD Diabetic polyneuropathy associated with type 2 diabetes mellitus ([facility]) 11/07/[address] [address] Sandra Vieira ANP Care Management (C3CM- f/u call) 11/06/2024 Patient Outreach [address] [address] Sandra Vieira ANP Care Coordination (SDOH f/u) 10/27/2024 Patient Outreach [address] [address] Sandra Vieira ANP Care Coordination (SDOH) 10/27/[address] [address] Sandra Vieira ANP Care Management (C3CM- f/u call lvm) 10/20/2024 Orders Only GENERIC EXTERNAL DATA DEPARTMENT Provider, Generic External Data 10/20/2024 Patient Outreach [facility] [address] [place] [phone] Sandra Vieira ANP Care Coordination (Appt reminder) 10/15/2024 Refill [facility] [address] [place] [phone] Sandra Vieira ANP Pain 10/10/[address] [address] Sandra Vieira ANP 10/10/2024 Telephone [facility] [address] [place] [phone] Sandra Vieira ANP Care Management (C3CM- f/u call) 10/10/2024 Patient Outreach [facility] [address] [place] [address] Sandra Vieira ANP Care Coordination (SDOH) 10/10/2024 Population Health Risk Score [facility] () Department [address] [place] [phone] Provider, Population Health Generic 10/01/2024 Telephone [facility] [address] [place] [phone] Sandra Vieira ANP Care Management (C3CM- f/u call lvm) 09/25/2024 Patient Outreach [address] [address] Sandra Vieira ANP Care Coordination (Appt reminder) 09/23/2024 11:15 AM EST Office Visit [address] [address] Sandra Vieira ANP Chronic pain of both shoulders (Primary Dx); Type 2 diabetes mellitus with hyperlipidemia (CMS/HCC) (CMS/HCC); Neck pain; Nonintractable episodic headache, unspecified headache type; Elevated troponin; Chronic nonintractable headache, unspecified headache type 09/23/2024 Telephone [facility] [address] [place] [phone] Janelle Cordova RN Results 09/23/2024 Travel 09/23/2024 Refill [facility] WALK[facility]IN CENTER [address] [place] [phone] Name, MD Jaxson 09/23/2024 Refill [facility] W[facility]-IN CENTER [address] [place] [address] Sandra Vieira ANP Heartburn 09/19/2024 Patient Outreach [facility] [address] [place] [phone] Sandar Vieira ANP Care Coordination (Appt reminders) 09/18/2024 Telephone [facility] [address] [place] [phone] Sandra Vieira ANP Care Management (C3CM- initial assessment/ enrollment) from Last 3 Months Immunizations Immunization Administration Dates Next Due Hep A, Adult [...] oz) 12/16/2024 8:42 A M EDT Height 160 cm (5' 3 ) 09/08/2024 8:43 AM EST Body Mass Index 30.75 09/08/2024 8:43 AM EST Plan of Treatment Upcoming Encounters Date Type Department Care Team (Late st Contact Info) Description 12/25/2024 11:00 AM EDT Office Visit [facility] MEDICINE [address] [place] [address] Sandra Vieira, ANP [address] [place] [address] 04/20/2025 2:30 PM EDT Office Visit [facility] OPTOMETRY [address] [place] [address] Smiley Scott, OD [address] [place] [address] Health Maintenance Due Date Last Done Comments CT Colonography 1965 Colonoscopy 1965 Colorectal Cancer Screening 1965 FIT DNA/Cologuard 1965 FIT 1965 FOBT 1965 Sigmoidoscopy 1965 Disability Screening 1965 Zoster Vaccines (1 of 2) 2013 [...] Alcohol/Substance Use Screening 07/24/2025 07/24/2024 Tobacco Screening 12/16/2025 12/16/2024 Mammogram 07/03/2026 07/03/2024, 1211/2023, 01/04/2024, Additional history exists Cervical Cancer Screening 06/17/2029 HPV/Cotest 06/17/2029 06/17/2024, 05/02/2021 Pap Smear 06/17/2029 06/17/2024, 05/02/2021 DTaP/Tdap/Td Vaccines [...] age to complete this topic Meningococcal B Vaccine Aged Out No l onger eligible based on patient's age to complete [...] DIPSTICK Routine 12/16/2024 9:12 AM EDT Pain AMB REFERRAL TO CARDIOLOGY Urgent 12/03/2024 Abnormal EKG Chest pain, unspecified type CT ABDOMEN PELVIS W CONTRAST Routine 10/20/2024 8:32 PM EDT URINALYSIS WITH REFLEX MICROSCOPIC Routine 10/20/2024 9:53 AM EDT CULTURE, URINE, ROUTINE Routine 10/20/2024 9:53 AM EDT COMPREHENSIVE METABOLIC PANEL Routine 10/20/2024 9:50 AM EDT CBC WITH AUTO DIFFERENTIAL Routine 10/20/2024 9:50 AM EDT XR CERVICAL SPINE 4V Routine 09/23/2024 12:46 [...] 2 diabetes mellitus with hyperlipidemia (CMS/HCC) (CMS/HCC) BI MAMMOGRAM SCREENING TOMOSYNTHESIS BILATERAL Routine 07/03/2024 9:53 AM EST PAP SMEAR Routine 06/17/2024 10:30 AM EST HPV MRNA E6/E7 REFLEX TO HPV 16, 18/45 Routine 06/17/2024 12:00 AM EST HIV 1/2 ANTIGEN/ANTIBODY, FOURTH GENERATION W/RFL Routine 03/24/2024 3:20 PM EDT ALBUMIN, RANDOM URINE W/CREATININE Routine 05/01/2023 11:30 AM EDT Type 2 diabetes mellitus with hyperlipidemia (CMS/HCC) LIPID PANEL, STANDARD Routine 05/01/2023 11:30 AM EDT Type 2 diabetes mellitus with hyperlipidemia (CMS/HCC) from Last 3 Months or Most Recently [...] None Detected Urine 12/16/2024 9:12 AM EDT us Adolfo Benitez MD POINT OF CARE TEST ENTER/EDIT OR DERABLES Final Result * Referral to Cardiology (12/03/2024) us Sandra HARO OUTPATIENT REFERRAL ORDERABLES F inal Result * CT Abdomen Pelvis w/ Contrast (10/20/2024 8:32 PM EDT) Anatomical Region Laterality Modality Body, Pelvis, Abdomen Computed T omography 10/20/2024 8:32 PM EDT Narrative 10/20/2024 8:34 PM EDT ? [facility] ?[address] ?[place] [address] ? CT Scan Report ? Signed ? Patient: Colon,Milsa ?MR#: [id number] ? : 1965 ?Acct:[id number] ? Age/Sex: 59 / F ?ADM Date: 10/20/24 ? Loc: HO.ED ? Attending Dr: ? Ordering Physician: Elgin Escobar DO ?? Date of Service: 10/20/24 ?? Procedure(s): CT abdomen pelvis w IV con ?? Accession Number(s): [id number] ? cc: Elgin Escobar DO; SANDRA VIEIRA NP ? Report Number: ?? [id number]: Total DLP = ??572.00 mGy-cm ? CLINICAL HISTORY: History of kidney stones, evaluate for hydronephro ? CT abdomen and pelvis with contrast ? Comparison: CT - CT ABDOMEN PELVIS W IV CON - 10/20/24 19:19 EDT ? Findings: ?? The lung bases are clear. ? Status post cholecystectomy. Extensive nodularity of the liver with mild ?? atrophic changes concerning for hepatic cirrhosis. No hydronephrosis. ?? Stable 3-4 mm left kidney lower pole nonobstructing stones. ?? No bowel obstruction, pneumoperitoneum, or pneumatosis. ? Pelvic contents unremarkable. Normal appendix. ?? No acute fracture. ? IMPRESSION: ?? No acute findings. No hydronephrosis. Stable 3-4 mm left kidney lower pole ?? nonobstructing stones. ?? Extensive nodularity of the liver with mild atrophic changes concerning ?? for hepatic cirrhosis. ?? Status post cholecystectomy. ? This document has been electronically signed by: Devan Mata MD on ?? 10/20/2024 20:32:45 ? Dictated By: ?Devan Mata MD ? Signed By: ?<Electronically signed by Devan Mata MD in OV> ?10/20/242033 ? DD/ 31 ? TD/TT: 10/20/242031 ? [employer]isher: ? Procedure Note Donotuseinterpreter, Image - 10/20/[address] [place] [address] [address] Scan Report Signed Patient: Barrera Max#: [id number] : 1965Acct:[id number] Age/Sex: 59 / FADM Date: 10/20/24 Loc: HO.ED Attending Dr: Ordering Physician: Elgin Escobar DO Date of Service: 10/20/24 Procedure(s): CT abdomen pelvis w IV con Accession Number(s): [id number] cc: Elgin Escobar DO; SANDRA VIEIRA NP Report Number: [id number]: Total DLP = 572.00 mGy-cm CLINICAL HISTORY: History of kidney stones, evaluate for hydronephro CT abdomen and pelvis with contrast Comparison: CT - CT ABDOMEN PELVIS W IV CON - 10/20/24 19:19 EDT Findings: The lung bases are clear. Status post cholecystectomy. Extensive nodularity of the liver with mild atrophic changes concerning for hepatic cirrhosis. No hydronephrosis. Stable 3-4 mm left kidney lower pole nonobstructing stones. No bowel obstruction, pneumoperitoneum, or pneumatosis. Pelvic contents unremarkable. Normal appendix. No acute fracture. IMPRESSION: No acute findings. No hydronephrosis. Stable 3-4 mm left kidney lower pole nonobstructing stones. Extensive nodularity of the liver with mild atrophic changes concerning for hepatic cirrhosis. Status post cholecystectomy. This document has been electronically signed by: Devan Mata MD on 10/20/2024 20:32:45 Dictated By: Devan Mata MD Signed By: <Electronically signed by Devan Mata MD in OV> 10/20/242033 DD/ 31 TD/TT: 10/20/242031 [employer]isher: us [facility] External Provider IMG CT PROCEDURES Edited Result - Final * Urinalysis w/reflex microscopic (10/20/2024 9:53 AM EDT) Color Urine Yellow [facility] Appearance Urine Clear [facility] PH 6.0 5.0 - 9.0 [facility] Glucose Urine UA Negative Negative mg/dL [facility] Urine Blood Negative Negative [facility] Specific [place] - Urine 1.020 1.005 - 1.025 [facility] Urine Protein Trace Neg-Trace mg/dL [facility] Urine Ketones Negative Negative mg/dL [facility] Nitrite Urine Negative Negative [facility] Leukocyte Esterase Urine Negative Negative [facility] 10/20/2024 9:53 AM EDT 10/20/2024 9:58 AM EDT Narrative [facility] - 10/20/2024 10:04 AM EDT [id number], Clean Catch Generic External Data Provider LAB URINE ORDERAB LES Final Result [facility] [address] [place] [phone] * Culture, Urine, Routine (10/20/2024 9:53 AM EDT) Urine Urine specimen obtained by clean catch procedure / Unknown 10/20/2024 9:53 AM EDT 10/20/2024 5:58 PM EDT Comment:UACC Narrative [facility] - 10/22/2024 11:14 AM EDT Urine Culture No growth. Specimen Source: Urine clean catch us Generic External Data Provider LAB MICROBIOLOGY - GENERAL ORDERABLES Final Result [facility] [address] [place] [address] [phone] * (ABNORMAL) CBC auto differential (10/20/2024 9:50 AM EDT) White Blood Count 4.2(L) 4.8 - 10.8 X10*3/uL [facility] Red Blood Count 4.27 4.20 - 5.50 X10*6/uL [facility] Hemoglobin 12.1 12.0 - 16.0 g/dl [facility] Hematocrit 35.4(L) 37.0 - 47.0 % [facility] Mean Corpuscular Volume 82.9 80.0 - 98.0 fL [facility] Mean Corpuscular Hemoglobin 28.3 27.0 - 33.0 pg [facility] Mean Corpuscular HGB Conc 34.2 31.0 - 35.0 g/dl [facility] Red Cell Distribution Width 13.2 11.0 - 16.0 % [facility] Platelet Count 100(L) 160 - 400 X10*3/uL [facility] Mean Platelet Volume 10.2 9.4 - 12.3 fL [facility] Neutrophils Percent Auto 53.3 45 - 73 % [facility] Imm Gran Pct Auto 0.2 0.0 - 0.4 % [facility] Lymphocytes Percent Auto 32.5 20 - 40 % [facility] Monocytes Percent Auto 11.6(H) 2 - 11 % [facility] Eosinophils Percent Auto 2.2 0 - 4 % [facility] Basophils Percent Auto 0.2 0 - 2 % [facility] NRBC Pct Auto 0.0 0.0 - 0.2 /100WBC [facility] Neutrophils Absolute Auto 2.2 2.0 - 8.3 x10*3/uL [facility] Imm Gran Abs Auto 0.01 0.00 - 0.03 X10*3/uL [facility] Lymphocytes Absolute Auto 1.4 1.2 - 4.9 X10*3/uL [facility] Monocytes Absolute Auto 0.5 0.1 - 1.2 X10*3/uL [facility] Eosinophils Absolute Auto 0.1 0.0 - 0.4 X10*3/uL [facility] Basophils Absolute Auto 0.0 0.0 - 0.2 X10*3/uL [facility] NRBC Abs Auto 0.000 0.0 - 0.012 X10*3/uL [facility] 10/20/2024 9:50 AM EDT 10/20/2024 10:00 AM EDT us Generic External Data Provider LAB BLOOD ORDERAB LES Final Result [facility] [address], [place] [phone] * (ABNORMAL) Comprehensive Metabolic Panel (10/20/2024 9:50 AM EDT) Sodium 142 135 - 145 mmol/L [facility] Potassium 4.1 3.3 - 5.1 mmol/L [facility] Chloride 110(H) 96 - 108 mmol/L [facility] Carbon Dioxide 25 22 - 29 mmol/L [facility] Anion Gap 11(L) 12 - 20 [facility] Urea Nitrogen (BUN) 10 9 - 16 mg/dL [facility] Creatinine, Serum 0.88 0.5 - 1.4 mg/dL [facility] Creatinine Clr Calc Pharmacy 66.5 [facility] Comment:Provided height and weight: 160.02 cm,78.3 kg.eGFR (calculated from the MDRD study equation) and eCrCl(calculated from the Cockcroft-Gault equation) are based ondifferent parameters and may not yield comparable results.If eCrCl result is absurd, please check patient'sheight/weight. Estimated Glomerular Filt Rate >60 [facility] Comment:Chronic Kidney Disea se: Estimated GFR < 60 mL/min/1.83j8Slckxz Kidney Disease: Estimated GFR < 15 mL/min/1.73m2 Glucose 138(H) 60 - 115 mg/dL [facility] Calcium 9.0 8.4 - 10.2 mg/dL [facility] Bilirubin, Total 0.5 0.0 - 1.0 mg/dL [facility] Aspartate Amino Transferase 50(H) 5 - 31 U/L [facility] Alanine Aminotransferase 60(H) 0 - 31 U/L [facility] Total Protein 7.3 6.5 - 8.0 g/dL [facility] Albumin Level 3.8 3.5 - 5.0 g/dL [facility] Alkaline Phosphatase 151(H) 39 - 117 U/L [facility] 10/20/2024 9:50 AM EDT 10/20/2024 10:00 AM EDT us Generic External Data Provider LAB BLOOD ORDERAB LES Final Result Performing Organization Address [facility]/State/[facility] Co de Phone Number [facility] [address] [place] [phone] * XR CERVICAL SPINE 4V (09/23/2024 12:46 PM EST) Anatomical Region Laterality Modality Abdomen Radiographic Nina ging 09/23/2024 12:4 6 PM EST Narrative 09/23/2024 2:05 PM EST ?[facility] ?[address] ?[place] [address] ?XRay Report ? Signed ? Patient: Colon,Milsa ?MR#: [id number] ? : 1965 ?Acct:[id number] ? Age/Sex: 59 / F ?ADM Date: 02/25/25 ? Loc: HO.HHCX ? Attending Dr: Sandra Vieira HOUSEPERSON ? Ordering Physician: SANDRA VIEIRA NP ?? Date of Service: 09/23/24 ?? Procedure(s): XR cervical spine 4V ?? Accession Number(s): [id number] ? cc: SANDRA VIEIRA NP ? EXAMINATION: [...] DD/ 1246 ? TD/TT: 09/23/24 1300 ? Fiberglass Boat Finisher: ? Procedure Note Concepción Ndiaye - 09/23/[address] [address] XRay Report Signed Patient: Barrera Max#: [id number] : 1965Acct:[id number] Age/Sex: 59 / FADM Date: 09/23/24 Loc: HO.HHCX Attending Dr: Sandra Vieira HOUSEPERSON Ordering Physician: SANDRA VIEIRA NP Date of Service: 09/23/24 Procedure(s): XR cervical spine 4V Accession Number(s): [id number] cc: SANDRA VIEIRA HOUSEPERSON EXAMINATION: XR CERVICAL SPINE CLINICAL INFORMATION: neck [...] Mundo England MD 09/23/2024 02:02 PM EST RP Dictated By: Mundo England MD Signed By: <Electronically signed by Mundo England MD in OV> 09/23/24 1402 DD/ 1246 TD/TT: 09/23/24 1300 Fiberglass Boat Finisher: Sandra HARO IMLia XR PROCEDURES Final Result * XR Shoulder 2+ Views Right (09/23/2024 12:46 PM EST) Anatomical Region Laterality Modality Upper Extremities, Shoulder Right Radi ographic Imaging 09/23/2024 12:4 6 PM EST Narrative 09/23/2024 1:58 PM EST ?[facility] ?[address] ?[place] [address] ?XRay Report ? Signed ? Patient: Colon,Milsa ?MR#: [id number] ? : 1965 ?Acct:[id number] ? Age/Sex: 59 / F ?ADM Date: 02/25/25 ? Loc: HO.HHCX ? Attending Dr: Sandra Vieira HOUSEPERSON ? Ordering Physician: SANDRA VIEIRA NP ?? Date of Service: 09/23/24 ?? Procedure(s): XR shoulder RT min 2V ?? Accession Number(s): [id number] ? cc: SANDRA VIEIRA NP ? EXAMINATION: [...] DD/ 1246 ? TD/TT: 09/23/24 1300 ? Fiberglass Boat Finisher: ? Procedure Note Zelda, Concepción - 09/23/2024 [place] [address] XRay Report Signed Patient: Tank Max#: [id number] : 1965Acct:[id number] Age/Sex: 59 / FADM Date: 09/23/24 Loc: HO.HHCX Attending Dr: Sandra Vieira NP Ordering Physician: SANDRA VIEIRA NP Date of Service: 09/23/24 Procedure(s): XR shoulder RT min 2V Accession Number(s): [id number] cc: SANDRA VIIERA NP EXAMINATION: XR SHOULDER, RIGHT CLINICAL INFORMATION: [...] Mundo England MD 09/23/2024 01:55 PM EST RP Dictated By: Mundo England MD Signed By: <Electronically signed by Mundo England MD in OV> 09/23/24 1355 DD/ 1246 TD/TT: 09/23/24 1300 Fiberglass Boat Finisher: Sandra HARO IMLia XR PROCEDURES Final Result * XR Shoulder 2+ Views Left (09/23/2024 12:46 PM EST) Anatomical Region Laterality Modality Upper Extremities, Shoulder Left Radi ographic Imaging 09/23/2024 12:4 6 PM EST Narrative 09/23/2024 2:00 PM EST ?[facility] ?[address] ?[place] [address] ?XRay Report ? Signed ? Patient: Colon,Milsa ?MR#: [id number] ? : 1965 ?Acct:[id number] ? Age/Sex: 59 / F ?ADM Date: 09/23/24 ? Loc: HO.HHCX ? Attending Dr: Sandra Vieira HOUSEPERSON ? Ordering Physician: SANDRA VIEIRA NP ?? Date of Service: 09/23/24 ?? Procedure(s): XR shoulder LT min 2V ?? Accession Number(s): [id number] ? cc: SANDRA VIEIRA NP ? EXAMINATION: [...] DD/ 1246 ? TD/TT: 09/23/24 1300 ? Fiberglass Boat Finisher: ? Procedure Note Donwilliamter, Image - 09/23/2024 [place] [address] XRay Report Signed Patient: Barrera Max#: [id number] : 1965Acct:[id number] Age/Sex: 59 / FADM Date: 09/23/24 Loc: HO.HHCX Attending Dr: Sandra Vieira NP Ordering Physician: SANDRA VIEIRA NP Date of Service: 09/23/24 Procedure(s): XR shoulder LT min 2V Accession Number(s): [id number] cc: SANDRA VIEIRA NP EXAMINATION: XR SHOULDER, [...] 09/23/24 1357 DD/ 1246 TD/TT: 09/23/24 1300 Fiberglass Boat Finisher: us Sandra Vieira ANP IMG XR PROCEDURES Final Result * (ABNORMAL) POCT HGB A1C (09/23/2024 11:59 AM EST) Hemoglobin A1C 7.5(A) 4.0 - 6.0 % QC [employer] Lot # [id number] Lot# Expiration Date Blood 09/23/2024 11:5 9 AM EST us Sandra Vieira ANP POINT OF CARE TEST ENTER/EDIT OR DERABLES Final Result * (ABNORMAL) POCT Glucose (09/23/2024 11:54 AM EST) Glucose Blood, POC 288(A) 60 - 200 mg/dL QC [employer] Lot # [id number] Lot# Expiration Date 197910 Blood Capillary blood specimen / Unknown 09/23/2024 11:54 AM EST us Sandra Vieira ANP POINT OF CARE TEST ENTER/EDIT OR DERABLES Final Result * BI Mammogram Screening Tomosynthesis Bilateral (07/03/2024 9:53 AM EST) Anatomical Region Laterality Modality Breast Bilateral Mammography 07/03/2024 9:53 AM EST Narrative 07/09/2024 10:57 AM EST ? [place] [facility] ? [address] ?[place] [address] ? Mammography Report ? Signed ? Patient: Colon,Milsa ?MR#: [id number] ? : 1965 ?Acct:[id number] ? Age/Sex: 59 / F ?ADM Date: 07/03/24 ? Loc: HO.MAMMO ? Attending Dr: Herminio Britton MD ? Ordering Physician: Herminio Britton MD ?Results: 1Negativ ?? e ? Date of Service: 07/03/24 ?Follow Up: 1 Year From Orig ?? inal Mammogram ? Procedure(s): MM tomosynthesis screening BI ?? Accession Number(s): [id number] ? cc: SANDRA VIEIRA NP; Herminio Britton [...] next mammogram. ? Electronically signed by: ??Alysa Fatih DO ??07/09/2024 10:54 AM EST ?? RP ? Dictated By: ?Alysa Faith DO ? Signed By: ?<Electronically signed by Alysa Faith, DO in OV> ? 07/09/241053 ? DD/ 0953 ? TD/TT: 07/03/24 1018 ? Fiberglass Boat Finisher: ? Procedure Note Donotcherylinterpreter, Image - 07/09/2024 [place] [facility] [address] [place] [address] Mammography Report Signed Patient: Barrera Max#: [id number] : 1965Acct:[id number] Age/Sex: 59 / FADM Date: 07/03/24 Loc: HO.MAMMO Attending Dr: Herminio Britton MD Ordering Physician: Herminio Britton MDResults: 1Negativ e Date of Service: 07/03/24Follow Up: 1 Year From Orig inal Mammogram Procedure(s): MM tomosynthesis screening BI Accession Number(s): [id number] cc: SANDRA VIEIRA HOUSEPERSON; Herminio Britton MD EXAMINATION: MM SCREENING DIGITAL [...] 07/09/24 1054 DD/ 0953 TD/TT: 07/03/24 1018 Fiberglass Boat Finisher: [facility] External Provider IMG BI PROCEDURES Edited Result - Final * Pap Smear (06/17/2024 10:30 AM EST) 06/17/2024 10:3 0 AM EST 06/18/2024 9:15 AM EST [facility] - 06/20/2024 9:28 AM EST ----- ------- Name: Colon,Milsa ?Age/Sex: 59/F ? : 1965 Unit#: [id number] ?? Attend Dr: Herminio Britton MD ?Re06/17/24 ?Status: DEP REF ? Location: HO.LNP ?Disch: ? ----- ------- SPEC : [id number] ?RECD: 06/18/24 ? STATUS: ??SOUT ? REQ NUM: [id number] ? MILY: 06/17/24 ? SUBM DR: Herminio [...] Copies To: ?? SANDRA VIEIRA NP ?? [facility] ?? [address] ?? [place] [address] ?? [phone] ?? Herminio Britton MD ?? [facility] ?? [address] ?? [place] [address] ?? [phone] ----- ------- Signed (signature on file) AVELINO Romero (ASCP) 06/20/24927 ? ----- ------- ? END OF REPORT ? us Generic External Data Provider LAB CYTOLOGY ORDE RABLES Final Result Performing Organization Address [facility] Co de Phone Number [facility] [address] [place], [place] [phone] * HPV mRNA E6/E7 w/Reflex to HPV Genotypes 16, 18/45 (06/17/2024 12:00 AM EST) us Historical Provider MD LAB CYTOLOGY ORDERABLES F inal Result Performing Organization Address [facility] Co de Phone Number [facility] [address] [place], [place] [phone] * HIV-1/2 Antigen and Antibodies, Fourth Generation, with Reflexes (03/24/2024 3:20 PM EDT) Pathologist [facility] HIV AB/AG Nonreactive Nonreactive [facility] Comment:HIV-1 p24 Ag and/or HIV-1/HIV-2 Ab not detected.A test result that is nonreactive does not exclude thepossibility of exposure to or infection with HIV-1 and/orHIV-2. Nonreactive results in this assay for individualswith prior exposure to HIV-1 and/or HIV-2 may be due toantigen and antibody levels that are below the limit ofdetection of this assay.The [email or web address] HIV Ag/Ab Combo assay result andsupplemental assay results should be interpreted inconjunction with the patient's clinical presentation,history and other laboratory results. If the results areinconsistent with clinical evidence, additional testing issuggested to confirm the result. 03/24/2024 3:20 PM EDT 03/24/2024 3:20 PM EDT Generic External Data Provider LAB BLOOD ORDERAB LES Final Result Performing Organization Address City/[facility]/ZIP Co de Phone Number [facility] [address] [place] [phone] * (ABNORMAL) Albumin, Random Urine W/Creatinine (05/01/2023 11:30 AM EDT) Creatinine, Urine 302.38 mg/dL [facility] Microalbumin Urine 107.0 mg/L [facility] Microalbum Creatinine Ratio Ur 35.3(H) <30 ug/mg cr [facility] Comment:Albumin/Creatinine R atio Reference Ranges: Normal: < 30 ug/mg creatinine Microalbuminuria: 30 - 300 ug/mg creatinineClinical Albuminuria: > 300 ug/mg creatinine Urine (Urine, Random) 05/01/2023 11:30 AM EDT 05/01/2023 1:17 PM EDT us Sandra Vieira [facility] URINE ORDERABLES Final Resul t Performing Organization Address City/[facility]/ZIP Co de Phone Number [facility] [address] [place] [phone] * (ABNORMAL) Lipid Panel, Standard (05/01/2023 11:30 AM EDT) Triglycerides 189(H) <150 mg/dL [facility] Comment:Desirable Triglyceri de: less than 150 mg/dLBorderline High Triglyceride 150-199 mg/dLHigh Triglyceride: 200-499 mg/dLVery High Triglyceride: greater than or equal to 5OO mg/dL Cholesterol 188 <200 mg/dL [facility] Comment:Desirable Cholestero l: less than 200 mg/dLBorderline High Cholesterol: 200-239 mg/dLHigh Cholesterol: greater than 239 mg/dL LDL Cholesterol Calculated 98 <100 mg/dL [facility] Comment:Desirable LDL: less than 100 mg/dLNear Optimal/Above Optimal LDL: 110- 129 mg/dLBorderline High LDL: 130-159 mg/dLHigh LDL: 160-189 mg/dLVery High LDL: greater than or equal to 190 mg/dL HDL Cholesterol 53 >40 mg/dL [facility] Comment:Desirable HDL: great er than 40 mg/dL Note: This HDL assay may give artificially low results in patients with liver disease. Blood Venous blood specimen / Unknown 05/01/2023 11:30 AM EDT 05/01/2023 1:23 PM EDT Sandra Vieira [facility] BLOOD ORDERABLES Final Resul t [facility] [address] [place] [address] [phone] from Last 3 Months or Most Recently Relevant to Health Maintenance Insurance [facility] C3 Care Teams Gypsum Roofer Relationship Specialty Start Date End Date Sandra Vieira ANP [address] [place] [address] PCP - General Family Medicine 09/03/20 April Michele MD [address] [place] [address] Referring Physician Infectious Diseases 10/09/24 Lee Hubbard MD [address] [place] [address] Urology 10/09/24 [facility] cardiology 11/12/23
--- OUTSIDE RECORDS SUMMARY | 2024-12-16 15:12 | XMS_ITS | Encounter Summary ---
Author Organization [employer] Address [address] [place] [address] 7[address] [place] [address] Care Team Providers Care Construction Ironworker Name Role Phone Wanad Bonilla Primary Care Provider [phone] Rajni García RN Unavailable [phone] April Michele MD Unavailable [phone] Lee Hubbard MD Unavailable Reason for Visit * Reason Comments Med Refill Encounter Details Date Type Department Care Team (Late st Contact Info) Description 01/11/[address] [facility] [address] [place] [address] Wanda Bonilla ANP [address] [place] [address] Social History Tobacco Use Types Packs/Day Years [...] Description 12/25/2024 11:00 AM EDT Office [address] [facility] [address] [place] [address] Wanda Bonilla ANP [address] [place] [address] 04/20/2025 2:30 PM EDT Office Visit [facility] [address] [place] [address] Tyler, Smiley, OD [address] [place] [address] documented as of this encounter Visit Diagnoses Not on filedocumented in this encounter Additional Health Concerns Assessment Noted Time PHQ-9 Depression Total Score: 0 08/25/19 23 1:48 PM EST documented as of this encounter Care Teams Construction Ironworker Relationship Specialty Start Date End Date Wanda Bonilla ANP [address] [place] [address] PCP - General Family Medicine 09/03/20 Rajni García, TIM [address] [place] [address] Rn CirculatingHelicopter Pilot Instructor 09/18/24 12/15/24 April Michele MD [address] [place] [address] Referring Physician Infectious Diseases 10/09/24 Lee Hubbard MD [address] [place] [address] Urology 10/09/24 [facility] cardiology 11/12/23 documented as of this encounter
--- OUTSIDE RECORDS SUMMARY | 2024-12-16 15:12 | XMS_ITS | Encounter Summary ---
Author Organization [employer] Address [address] [place] [address] 7t [place] [address] Care Team Providers Care Retail Loss Prevention Specialist Name Role Phone Wanda Bonilla Primary Care Provider Rajni García RN Unavailable [phone] April Michele MD Unavailable [phone] Lee Hubbard MD Unavailable [phone] Encounter Details Date Type Department Care Team (Late st Contact Info) Description 08/09/2022 Orders Only [facility] MEDICINE [address] [place] [phone] Shanna Lopez LPN Social History Tobacco Use [...] Description 12/25/2024 11:00 AM EDT Office Visit [facility] [address] [place] [address] [phone] Wanda Bonilla ANP [address] [place] [address] 04/20/2025 2:30 PM EDT Office Visit [facility] OPTOMETRY [address] [place] [phone] Smiley Scott, OD [address] [place] [address] documented as of this encounter Visit Diagnoses Not on filedocumented in this encounter Care Teams Retail Loss Prevention Specialist Relationship Specialty Start Date End Date Wanda Bonilla ANP [address] [place] [address] PCP - General Family Medicine 09/03/20 Rajni García, TIM [address] [place] [address] Mill Roll OperatorHand Screen Printer 09/18/24 12/15/24 April Michele MD [address] [place] [address] Referring Physician Infectious Diseases 10/09/24 Lee Hubbard MD [address] [place] [address] Urology 10/09/24 [facility] cardiology 11/12/23 documented as of this encounter
--- OUTSIDE RECORDS SUMMARY | 2024-12-16 15:12 | XMS_ITS | Encounter Summary ---
Author Organization [employer] Address [address] [place] [address] 7[address] [place] [address] Care Team Providers Care Plywood Factory Worker Name Role Phone Wanda Bonilla Primary Care Provider [phone] April Michele MD Unavailable [phone] Lee Hubbard MD Unavailable [phone] Reason for Visit * Reason Onset Date Comments Care Management 12/16/2024 C3CM- f/u call Encounter Details Date Type Department Care Team ([facility] st Contact Info) Description 12/16/2024 Telephone [facility] MEDICINE [address] [place] [address] Wanda Bonilla ANP [address] [place] [address] Care Management (C3CM- f/u call) Social History Tobacco Use Types Packs/Day Years [...] Telephone Encounter - Rajni García RN - 12/16/2024 12:11 PM EDT KAREN García RN, sent notification to PCP TAHIR Garcia to inform that patient has completed C3 Adult Complex Care program with goals partially/fully met at this time. * Telephone Encounter - Rajni García RN - 12/16/2024 11:49 AM EDT KAREN García RN and YULIANA Haddad placed outbound call to patient. Patient's name, and address confirmed. Patient states she was seen at the walk in center today for eval of arthritic pain, dysuria, and ear pain. Per patient, prescribed drops for her ear which she reports picking up from her pharmacy. Patient agrees to take Rx as directed and will follow up if no improvement. Patient also completed a Urine C&S and is awaiting results. Patient states she is aware of the referral that was placed to pain medicine today. KAREN advised she will be contacted with appt details once the visit is scheduled. She agrees. Per patient, visit with Urology from 12/12 was rescheduled to another date. [facility] visit scheduled for 12/25/24 at 2:30pm. Patient also scheduled to see GI on 12/25 at 11:00am and PCP f/u on 12/25 at 11:00am. patient states she intends on attending the visits with PCP and Urology. She is requesting to reschedule the appt with GI. CM called the office. Patient is scheduled for the next available GI visit on 03/19/25 at 11:00am. CM also reminded patient of her scheduled f/u with Podiatry on 12/23/24 at 11:00am. Patient verbalizes understanding and states she isaware of the visit and denies any barriers to attending. Patient will be contacted with appt reminders the day prior. Patient confirms attending the visit with Cardiology as scheduled on 12/03/24. She is scheduled for CTA on 01/01/25 at 2:00pm at [address] [facility]- light meal prior to test, no caffeine or decaf prior to testing no smoking 24 hours prior to procedure, and Cardiology f/u on 01/07/25 at 3:45pm at [address] [facility] [place] [address]. No further questions or concerns. CM reinforced direct contact information or CHW for any additional questions or concerns. Education provided on Walk-In Urgent Care located in [facility] of [facility]. Patient provided with after-hours line for [facility], , which offer night time triage service and option to transfer to motion picture camera lens technician provider if needed. CM discussed with the patient progress made towards established goals. Patient notified is being graduated from the Care Management Program. Patient was educated on how to receive care management services in the future. Patient agrees with the plan and will contact us if any future needs arise. documented in this encounter Plan of Treatment Upcoming Encounters Date Type Department Care Team ([facility] st Contact Info) Description 12/25/2024 11:00 AM EDT Office Visit [facility] [address] [place] [address] Wanda Bonilla ANP [address] [place] [address] 04/20/2025 2:30 PM EDT Office Visit [facility] OPTOMETRY [address] [place] [address] Smiley Scott, OD [address] [place] [address] documented as of this encounter Visit Diagnoses Not on filedocumented in this encounter Additional Health Concerns Assessment Noted Time PHQ-9 Depression Total Score: 5 11/23/19 24 1:33 PM EDT documented as of this encounter Care Teams Plywood Factory Worker Relationship Specialty Start Date End Date Wanda Bonilla ANP [address] [place] [address] PCP - General Family Medicine 09/03/20 April Michele MD [address] [place] [address] Referring Physician Infectious Diseases 10/09/24 Lee Hubbard MD [address] [place] [address] Urology 10/09/24 [facility] cardiology 11/12/23 documented as of this encounter
--- OUTSIDE RECORDS SUMMARY | 2024-12-16 15:12 | XMS_ITS | Encounter Summary ---
Author Organization [employer] Address [address] [place] [address] Care Team Providers Care Program Engagement Director Name Role Phone Wanda Bonilla Primary Care Provider [phone] Rajni García RN Unavailable [phone] April Michele MD Unavailable [phone] Lee Hubbard MD Unavailable [phone] Encounter Details Date Type Department Care Team (Late st Contact Info) Description 08/28/2023 Orders Only [facility] [address] [place] [address] Wanda Bonilla ANP [address] [place] [address] Social History Tobacco Use Types Packs/Day Years [...] Description 12/25/2024 11:00 AM EDT Office Visit [facility] [address] [place] [address] Wanda Bonilla ANP [address] [place] [address] 04/20/2025 2:30 PM EDT Office Visit [facility] OPTOMETRY [address] [place] [address] Tyler, Smiley, OD [address] [place] [address] documented as of this encounter Visit Diagnoses Not on filedocumented in this encounter Additional Health Concerns Assessment Noted Time PHQ-9 Depression Total Score: 0 08/25/19 23 1:48 PM EST documented as of this encounter Care Teams Program Engagement Director Relationship Specialty Start Date End Date Wanda Bonilla ANP [address] [place] [address] PCP - General Family Medicine 09/03/20 Rajni García RN [address] [place] [address] Supervisor Assembly StockCashier General 09/18/24 12/15/24 April Michele MD [address] [facility] [address] [facility] [address] [place] [address] Referring Physician Infectious Diseases 10/09/24 Lee Hubbard MD [address] [place] [address] [address] [place] [address] Urology 10/09/24 [facility] cardiology 11/12/23 documented as of this encounter
--- OUTSIDE RECORDS SUMMARY | 2024-12-16 15:12 | XMS_ITS | Encounter Summary ---
Author Organization [employer] Address [address] [facility] 7t [place] [address] Care Team Providers Care Software Tools Developer Name Role Phone Wanda Bonilla Primary Care Provider Rajni García RN Unavailable [phone] April Michele MD Unavailable [phone] Lee Hubbard MD Unavailable [phone] Reason for Visit * Reason Comments Med Refill Encounter Details Date Type Department Care Team (Late st Contact Info) Description 12/15/2024 Refill [facility] MEDICINE [address] [place] [address] Wanda Bonilla ANP 230 [place] [address] Low vitamin D level Social History Tobacco Use Types Packs/Day Years [...] Description 12/25/2024 11:00 AM EDT Office Visit [facility] MEDICINE [address] [place] [address] Wanda Bonilla ANP [address] [place] [address] 04/20/2025 2:30 PM EDT Office Visit [facility] OPTOMETRY [address] [place] [address] Tyler, Smiley, OD 230 [place] [address] documented as of this encounter Visit Diagnoses Diagnosis Low vitamin D level documented in this encounter Additional Health Concerns Assessment Noted Time PHQ-9 Depression Total Score: 5 11/23/19 24 1:33 PM EDT documented as of this encounter Care Teams Software Tools Developer Relationship Specialty Start Date End Date Wanda Bonilla ANP 230 [place] [address] PCP - General Family Medicine 09/03/20 Rajni García RN [address] [place] [address] Chef ManagerManager Community Relations 09/18/24 12/15/24 April Michele MD [address] [facility] [address] [place] [address] Referring Physician Infectious Diseases 10/09/24 Lee Hubbard MD [address] [place] [address] Urology 10/09/24 [facility] cardiology 11/12/23 documented as of this encounter
--- OUTSIDE RECORDS SUMMARY | 2024-12-16 15:12 | XMS_ITS | Encounter Summary ---
Author Organization [employer] Address [address] [place] [address] 7t [place] [address] Care Team Providers Care Medical Imaging Technician Name Role Phone Wanda Bonilla Primary Care Provider [phone] Rajni García RN Unavailable [phone] April Michele MD Unavailable [phone] Lee Hubbard MD Unavailable Reason for Visit * Reason Onset Date Comments triage 07/13/2022 Encounter Details Date Type Department Care Team (Late st Contact Info) Description 07/13/2022 Telephone [facility] MEDICINE 230 [place] [address] Wanda Bonilla ANP [address] [place], [place] [phone] triage Social History Tobacco Use Types Packs/Day [...] caller The caller accepted this outcome speaks greek documented in this encounter Plan of Treatment Upcoming Encounters Date Type Department Care Team (Late st Contact Info) Description 12/25/2024 11:00 AM EDT Office Visit [facility] MEDICINE [address] [place] [address] Wanda Bonilla ANP [address] [place] [address] 04/20/2025 2:30 PM EDT Office Visit [facility] OPTOMETRY [address] [place] [address] Tyler, Smiley, OD 230 [place] [address] documented as of this encounter Visit Diagnoses Not on filedocumented in this encounter Care Teams Medical Imaging Technician Relationship Specialty Start Date End Date Wanda Bonilla ANP [address] [place] [address] PCP - General Family Medicine 09/03/20 Rajni García RN 505 [place] [address] Education ConsultantNozzle Cement Sprayer Helper 09/18/24 12/15/24 April Michele MD [address] [facility] [address] [place] [address] Referring Physician Infectious Diseases 10/09/24 Lee Hubbard MD [address] [place] [address] Urology 10/09/24 [facility] cardiology 11/12/23 documented as of this encounter
--- OUTSIDE RECORDS SUMMARY | 2024-12-16 15:12 | XMS_ITS | Encounter Summary ---
Author Organization [employer] Address [address] [place] [address] 7t h Floor [place] [id number] Care Team Providers Care Benefits Representative Name Role Phone Irene Wanda HARO Primary Care Provider [phone] Rajni García RN Unavailable [phone] April Michele MD Unavailable [phone] Lee Hubbard MD Unavailable [phone] Reason for Visit * Reason Comments Med Refill Encounter Details Date Type Department Care Team (Late Contact Info) Description 04/03/2023 Refill [facility] MEDICINE [address] [place] [address] Brenda Lopez MD 230 [place] [address] Social History Tobacco Use Types Packs/Day Years [...] Department Care Team (Late Contact Info) Description 12/25/2024 11:00 AM EDT Office Visit [facility] MEDICINE 230 [place] [address] Wanda Bonilla ANP 230 [place] [address] 04/20/2025 2:30 PM EDT Office Visit [facility] OPTOMETRY [address] [place] [address] Tyler, Smiley, OD 230 [place] [address] documented as of this encounter Visit Diagnoses Not on filedocumented in this encounter Additional Health Concerns Assessment Noted Time PHQ-9 Depression Total Score: 0 08/25/19 23 1:48 PM EST documented as of this encounter Care Teams Benefits Representative Relationship Specialty Start Date End Date Wanda Bonilla ANP 230 [place] [address] PCP - General Family Medicine 09/03/20 Rajni García, TIM [address] [place] [address] Rn SpineCarton Inspector 09/18/24 12/15/24 April Michele MD [address] [facility] [address] [place] [address] Referring Physician Infectious Diseases 10/09/24 Lee Hubbard MD [address] [place] [address] Urology 10/09/24 [facility] cardiology 11/12/23 documented as of this encounter
--- OUTSIDE RECORDS SUMMARY | 2024-12-16 15:12 | XMS_ITS | Encounter Summary ---
Author Organization [employer] Address [address] [facility] 7t [place] [address] Care Team Providers Care Harm Reduction Worker Name Role Phone Wanda Bonilla Primary Care Provider [phone] Rajni García RN Unavailable [phone] April Michele MD Unavailable [phone] Lee Hubbard MD Unavailable [phone] Reason for Visit * Reason Onset Date Comments Hospital Follow-up 11/15/2023 Encounter Details Date Type Department Care Team (Late st Contact Info) Description 11/15/2023 Telephone [facility] MEDICINE 230 [place], [place] [phone] Wanda Bonilla ANP 230 [place], [place] [phone] Hospital Follow-up Social History Tobacco Use Types [...] from pt requesting a HDF appt. Hospital: [facility] Date of admission: 11/09 Discharge date: 11/13 Diagnosed: Neuropathy documented in this encounter Plan of Treatment Upcoming Encounters Date Type Department Care Team (Late st Contact Info) Description 12/25/2024 11:00 AM EDT Office Visit [facility] MEDICINE 230 [place] [address] Wanda Bonilla ANP [address] [place] [address] 04/20/2025 2:30 PM EDT Office Visit [facility] OPTOMETRY [address] [place] [address] Tyler, Smiley, OD 230 [place] [address] documented as of this encounter Visit Diagnoses Not on filedocumented in this encounter Additional Health Concerns Assessment Noted Time PHQ-9 Depression Total Score: 0 08/25/19 23 1:48 PM EST documented as of this encounter Care Teams Harm Reduction Worker Relationship Specialty Start Date End Date Wanda Bonilla ANP 230 [place] [address] PCP - General Family Medicine 09/03/20 Rajni García, RN 505 [place] [address] Computer Game TesterHospital Monitor 09/18/24 12/15/24 April Michele MD [address] [place] [address] 404 [place] [address] Referring Physician Infectious Diseases 10/09/24 Lee Hubbard MD [address] [place] [address] Urology 10/09/24 [facility] cardiology 11/12/23 documented as of this encounter
--- OUTSIDE RECORDS SUMMARY | 2024-12-16 15:12 | XMS_ITS | Encounter Summary ---
Author Organization [employer] Address [address] [facility] 7t [place] [address] Care Team Providers Care Agricultural Extension Agent Name Role Phone Wanda Bonilla Primary Care Provider [phone] Rajni García RN Unavailable [phone] April Michele MD Unavailable [phone] Lee Hubbard MD Unavailable [phone] Reason for Visit * Reason Comments Med Refill Encounter Details Date Type Department Care Team (Late st Contact Info) Description 11/05/2023 Refill [facility] MEDICINE 230 [place] [address] Wanda Bonilla ANP [address] [place] [address] Social History Tobacco Use Types Packs/Day Years [...] Description 12/25/2024 11:00 AM EDT Office Visit [facility] MEDICINE 230 [place] [address] Wanda Bonilla ANP [address] [place] [address] 04/20/2025 2:30 PM EDT Office Visit [facility] OPTOMETRY [address] [place] [address] Tyler, Smiley, OD 230 [place] [address] documented as of this encounter Visit Diagnoses Not on filedocumented in this encounter Additional Health Concerns Assessment Noted Time PHQ-9 Depression Total Score: 0 08/25/19 23 1:48 PM EST documented as of this encounter Care Teams Agricultural Extension Agent Relationship Specialty Start Date End Date Wanda Bonilla ANP [address] [place] [address] PCP - General Family Medicine 09/03/20 Rajni García RN [address] [place] [address] Subgrade TesterLifter 09/18/24 12/15/24 April Michele MD [address] [facility] [address] [place] [address] Referring Physician Infectious Diseases 10/09/24 Lee Hubbard MD [address] [facility] [address] [place] [address] Urology 10/09/24 [facility] cardiology 11/12/23 documented as of this encounter
--- OUTSIDE RECORDS SUMMARY | 2024-12-16 15:12 | XMS_ITS | Clinical Summary ---
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 (CMS/HCC V24, CMS/HCC V28) Carpal tunnel syndrome DM2 (diabetes mellitus, type 2) (CMS/HCC V24, S/[facility] V28) Hepatitis C Hyperlipidemia LDL goal <70 Hypertension Obesity Encounters Date Type Department Care Team Description 09/22/2024 3:30 PM EST Office Visit [facility] [address] [phone] Mario Robbins DPM Mass of left foot (Primary Dx); Dermatophytosis of nail; Pain in toe of right foot; Pain in toe of left foot; Diabetic mononeuropathy simplex ([facility] V24, [facility] V28); Type II diabetes mellitus with peripheral circulatory disorder ([facility] V24, [facility] V28) from Last 3 Months Social History Tobacco [...] 12/23/2024 11:00 AM EDT Office Visit [facility] [address] [phone] Mario Robbins DPM [address] [address] Health Maintenance Due Date Last Done Comments [...] series) 08/28/2020 02/26/2020, 07/08/2009, 07/14/2008 RSV Immunization Adult Patients (1 - Risk 60-74 years 1-dose series) 2023 COVID-19 Vaccine ( - season) 2024 12/29/2020, 12/01/2020 Colorectal Cancer Screening: Colonoscopy 06/13/2024 Hepatitis C Screening 06/13/2024 Social Influencers of Health Screening 06/13/2024 Diabetes: Annual Urine Albumin-Creatinine Ratio (uACR) 07/11/2024 Depression Screening 11/22/2024 11/23/2023 Diabetes: Blood Sugar Control Test (HGBA1C) 12/03/2024 06/05/2024 Influenza Vaccine (Season Ended) 2025 05/13/2018, 07/20/2017 Diabetes: Annual GFR (Glomerular Filtration Rate) 09/01/2025 [...] topic Insurance MEDICAID - [place] Care Teams Floor Grinder Relationship Specialty Start Date End Date Regina Su FNP [address] [place] [address] PCP - General Nurse Practitioner 07/11/24
--- OUTSIDE RECORDS SUMMARY | 2024-12-16 15:12 | XMS_ITS | Encounter Summary ---
Author Organization [employer] Address [address] [place] [address] 7t [place] [address] Care Team Providers Care Collection Administrator Name Role Phone Wanda Bonilla Primary Care Provider Rajni García RN Unavailable [phone] April Michele MD Unavailable [phone] Lee Hubbard MD Unavailable [phone] Reason for Visit * Reason Comments Care Coordination Appt reminder Encounter Details Date Type Department Care Team (Latest Contact Info) Description 12/11/2024 Patient Outreach [facility] MEDICINE [address] [place] [address] Wanda Bonilla ANP [address] [place] [address] Care Coordination (Appt reminder) Social History Tobacco Use Types Packs/Day [...] encounter Progress Notes * [place] - 12/11/2024 9:20 AM EDT [facility]W [place] placed call to patient to remind of appt for [facility] 12/12/24 at 10:15am, patient stated she has r/s her appt and she will get a reminder letter from them in the mail. No concerns at this time. documented in this encounter Plan of Treatment Upcoming Encounters Date Type Department Care Team (Late st Contact Info) Description 12/25/2024 11:00 AM EDT Office Visit [facility] MEDICINE [address] [place] [address] Wanda Bonilla, TAHIR [address] [place] [address] 04/20/2025 2:30 PM EDT Office Visit [facility] OPTOMETRY [address] [place] [address] Smiley Scott, OD 230 [place] [address] documented as of this encounter Visit Diagnoses Not on filedocumented in this encounter Additional Health Concerns Assessment Noted Time PHQ-9 Depression Total Score: 5 11/23/19 24 1:33 PM EDT documented as of this encounter Care Teams Collection Administrator Relationship Specialty Start Date End Date Wanda Bonilla ANP [address] [place] [address] PCP - General Family Medicine 09/03/20 Rajni García, TIM [address] [place] [address] Detective Automobile SectionSnack Steward 09/18/24 12/15/24 April Michele MD [address] [facility] [address] [place] [address] Referring Physician Infectious Diseases 10/09/24 Lee Hubbard MD [address] [place] [address] Urology 10/09/24 [facility] cardiology 11/12/23 documented as of this encounter
--- OUTSIDE RECORDS SUMMARY | 2024-12-16 15:12 | XMS_ITS | Encounter Summary ---
Author Organization [employer] Address [address] [facility] 7t [place] [address] Care Team Providers Care Business Process Expert Name Role Phone Irene Wanda HARO Primary Care Provider Rajni García RN Unavailable [phone] April Michele MD Unavailable [phone] Lee Hubbard MD Unavailable [phone] Reason for Visit * Reason Comments Med Refill Encounter Details Date Type Department Care Team ([facility] st Contact Info) Description 12/03/2023 Telephone [facility] MEDICINE 230 [place] [address] Shelli Vo MD 230 [place], [place] [phone] Med Refill Social History Tobacco Use Types [...] Description 12/25/2024 11:00 AM EDT Office Visit [facility] MEDICINE [address] [place] [address] Wanda Bonilla, TAHIR 230 [place] [address] 04/20/2025 2:30 PM EDT Office Visit [facility] OPTOMETRY [address] [place] [address] Smiley Scott, JUDITH 230 [place] [address] documented as of this encounter Visit Diagnoses Diagnosis Asthma, unspecified asthma severity, unspecified whether complicated, unspecified whether persistent documented in this encounter Additional Health Concerns Assessment Noted Time PHQ-9 Depression Total Score: 5 11/23/19 24 1:33 PM EDT documented as of this encounter Care Teams Business Process Expert Relationship Specialty Start Date End Date Wanda Bonilla ANP 230 [place] [address] PCP - General Family Medicine 09/03/20 Rajni García RN 505 [place] [address] Instrument AssemblerOracle Fusion Middleware Developer 09/18/24 12/15/24 April Michele MD [address] [facility] [address] [place] [address] Referring Physician Infectious Diseases 10/09/24 Lee Hubbard MD [address] [facility] [place] [address] Urology 10/09/24 [facility] cardiology 11/12/23 documented as of this encounter
== END 2024-12-16 13:53 | disposition home or self-care (01) ==
LOC: HO.LNP 13:52
PROVIDERS: Visit Provider Emergency Medicine
DX: R52 Pain, unspecified (principal)
CPT/HCPCS: 87086

== ENCOUNTER 2024-12-25 15:30 | Outpatient (AMB) | payer MEDICAID, SELFPAY ==
--- OUTSIDE RECORDS SUMMARY | 2024-12-25 15:33 | XMS_ITS | Encounter Summary ---
Author Organization [employer] Address [address] [place] [address] 7t [place] [address] Care Team Providers Care Paper Handler Name Role Phone Wanda Bonilla Primary Care Provider Rajni García RN Unavailable [phone] April Michele MD Unavailable [phone] Lee Hubbard MD Unavailable Reason for Visit * Reason Onset Date Comments Referral 08/30/2022 Encounter Details Date Type Department Care Team ([facility] st Contact Info) Description 08/30/2022 Telephone [facility] MEDICINE 230 [place], [place] [phone] Wanda Bonilla ANP 230 [place], [place] [phone] Referral Social History Tobacco Use Types Packs/Day [...] see a neurologist Please contact pt at [phone] documented in this encounter Plan of Treatment Upcoming Encounters Date Type Department Care Team (Late st Contact Info) Description 04/20/2025 2:30 PM EDT Office Visit [facility] OPTOMETRY [address] [place] [address] TylerSmiley rowe, OD 230 [place] [address] documented as of this encounter Visit Diagnoses Not on filedocumented in this encounter Additional Health Concerns Assessment Noted Time PHQ-9 Depression Total Score: 0 08/25/19 23 1:48 PM EST documented as of this encounter Care Teams Paper Handler Relationship Specialty Start Date End Date Wanda Bonilla ANP [address] [place] [address] PCP - General Family Medicine 09/03/20 Rajni García, RN 505 [place] [address] Open Hearth HelperDirector Of Maternity Services 09/18/24 12/15/24 April Michele MD [address] [facility] [address] [place] [address] Referring Physician Infectious Diseases 10/09/24 Lee Hubbard MD [address] [place] [address] Urology 10/09/24 [facility] cardiology 11/12/23 documented as of this encounter
--- NOTE | 2024-12-25 15:44 | MHC.OFFVIS ---
Intake Visit Reasons: ESWL discussion(reschedule 2x) Intake Note: Patient is present for ESWL Discussion Urology Medication:VITAMIN B6 Antibiotic Allergy:NONE Blood Thinner:ASPIRIN TODAY'S PVR: 10ML'S Etl Architect Paper Folder Required: Yes Paper Folder Name: Virgil--[id number] Information Interpreted: non-clinical & clinical Allergies morphine Adverse Reaction (Verified 10/20/24 09:11) Abdominal Pain Medication List - Last Reconciled 12/25/24 by Vianey Miller MD albuterol sulfate 2.5 mg inhalation Q4H PRN amlodipine 10 mg PO QAM aspirin 81 mg PO QPM carvedilol 6.25 mg PO cholecalciferol (vitamin D3) (Vitamin D3) 25 mcg PO QAM cyclobenzaprine 10 mg PO TID PRN famotidine 20 mg PO TID fluticasone propionate 110 mcg/actuation 1 puff inhalation Q12H gabapentin 300 mg PO BID insulin glargine (Lantus Solostar U-100 Insulin) 60 units subcut BEDTIME insulin lispro 20 units subcut TID lidocaine 5% 2 patches topical DAILY PRN lisinopril 40 mg PO QPM loratadine (Claritin) 10 mg PO DAILY mometasone 100 mcg/actuation (Asmanex HFA) 2 puffs inhalation Q12H PRN naproxen 500 mg PO BID PRN naproxen 500 mg PO BID oxycodone 5 mg PO Q8H PRN pen needle, diabetic (UltiCare Pen Needle) As directed pioglitazone 15 mg PO QAM polyethylene glycol 3350 (Miralax) 17 grams PO DAILY 1 day pyridoxine (vitamin B6) 100 mg PO QAM quetiapine 25 mg PO BID PRN quetiapine 150 mg PO BEDTIME ropinirole 0.5 mg PO BEDTIME rosuvastatin 5 mg PO BEDTIME semaglutide (Ozempic) 0.5 mg subcut MO sennosides-docusate sodium 8.6-50 mg (Senna Plus) 2 caps PO BEDTIME PRN sofosbuvir-velpatasvir 400-100 mg (Epclusa) 1 tab PO DAILY 12 weeks tamsulosin (Flomax) 0.4 mg PO BEDTIME trazodone 150 mg PO BEDTIME PRN HPI Comments Details: 12/25/24-- Jovanna is a 59-year-old female who has been followed for kidney stones she is here in follow-up she had a CT scan which notes persistent 3 mm stone in the left kidney. History of Present Illness The patient is a 59-year-old female presenting with nephrolithiasis and hematuria. She has a history of kidney stones, with a recent CT scan confirming a 3 mm stone in the left kidney. The patient reports blood in her urine for a few days and significant back and left flank pain. She was informed previously that there was no urinary infection. No blood was noted in the urine sample provided earlier in the day. Urinary Symptoms Review - Blood in urine for the past couple of days - Significant back pain - Occasional left flank and ovarian area pain - No blood noted in urine sample provided earlier in the day - Use of cream for vaginal discomfort Results - CT scan: Persistent 3 mm stone in the left kidney Discussion Notes I discussed with the patient the presence of a small 3 mm stone in the left kidney, as revealed by the CT scan. We reviewed the symptoms of hematuria and her back pain. I explained that the small size of the stone typically does not cause severe symptoms but may lead to hematuria. I recommended prescribing Flomax to facilitate the passage of the stone and Naproxen to manage her discomfort. We agreed upon a follow-up visit in a few months to reassess her condition. I also addressed her concerns about the staff at the check-in desk and assured her that the matter would be looked into. Plan I will prescribe Tamsulosin (Flomax) to assist with the passage of the kidney stone and Naproxen for pain management. The patient will be monitored for symptom changes. A urine sample will be analyzed for any signs of infection. Follow-up is planned in a few months to evaluate her condition and treatment effectiveness. Patient Instructions - Take prescribed medications as directed: Flomax for stone passage and Naproxen for pain. - Monitor for changes in symptoms and report any increased pain or difficulty urinating. - Provide a urine sample today before leaving for further analysis. - Follow up in a few months to reassess condition. - Report any issues with staff to the truck leasing manager if needed. Patient was informed and verbally consented to the use of an ambient scribe for clinic note documentation during this visit. 06/20/24--Tank is a 59-year-old female patient who presents to the clinic for follow-up of kidney stones. She was treated with Left ESWL last year. She was in the ED on 05/20/24--for abdominal and back pain, ovarian cyst was discussed with the patient at that time as well. Currently she is asymptomatic. 05/20/24--CTAP--report stated Left lower pole 3 mm nonobstructing renal calculus. However in review of imaging --- Review of imaging 05/20/2024--2 stones visualized in the left kidney about 4 mm upper pole and 3 mm lower pole. Discussed treatment options to include repeat ESWL versus ureteroscopy and laser lithotripsy. The patient would like to proceed with repeat ESWL at this time. Review of chart 07/13/23--Telehealth visit - I have reviewed renal and bladder US results, she was passing left kidney stone fragments, discussed left hydronephrosis is resolved, and fragments passed. 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 historic interpreter present. s/p Left ESWL on 05/02/23 Results: Abdomen USG results reviewed--08/29/2022- Suggestive of nonobstructive left renal calculi and nonobstructive renal calculi largest measuring 0.3 cm. CAT scan results reviewed--01/12/2022- Showed left lower pole stone 1 cm and bilateral punctuate stones. Evaluation today: Urine blood-0 Chris/uL, Leukocyte Esterase-0 Cailin/uL PFSH Medical History Neuropathy Somnolence, daytime Flank pain RUQ abdominal pain Left foot pain Bilateral hand pain COVID-19 Hepatitis C Rheumatoid arthritis Flank pain Renal stones Bipolar disorder Panic disorder Depression Anxiety Abdominal distension (gaseous) Asthma Hyperlipidemia 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 Mother Diabetes mellitus Sister Diabetes mellitus Brother No problems noted. Paternal Uncle Colon cancer Social History Household Members: None Housing: Apartment Do you presently have visiting nurse or other home services: Yes Alcohol intake: current Alcohol intake frequency: former alcohol drinker Alcohol type: beer Patient Tobacco Use Status: Current everyday Tobacco user Tobacco use type: Cigarette Cigarettes Per Day: 2 Years Smoked: 15 service: No Results AMB Urinalysis, Automated UA Leukoctes 0 Cailin/uL Last Edit by Amber Ruiz CMA on 12/25/24 15:49 UA Nitrite Negative Last Edit by Amber Ruiz, [employer]ER on 12/25/24 15:49 UA Urobilinogen 0.2 mg/dL Last Edit by Amber Ruiz, FRANCO on 12/25/24 15:49 UA Protein 15 mg/dL Last Edit by Amber Ruiz, [employer]ER on 12/25/24 15:49 UA pH 5.5 Last Edit by Amber Ruiz, [employer] OFFICER on 12/25/24 15:49 UA Blood 0 Chris/uL Last Edit by Amber Ruiz, [facility] on 12/25/24 15:49 UA Specific Blanchard 1.020 Last Edit by Amber Ruiz, FRANCO on 12/25/24 15:49 UA Ketone Negative Last Edit by Amber Ruiz CMA on 12/25/24 15:49 UA Bilirubin 0 mg/dL Last Edit by Amber Ruiz, FRANCO on 12/25/24 15:49 UA Glucose 0 mg/dL Last Edit by Amber Ruiz, [facility] on 12/25/24 15:49 Results Reviewed Results Reviewed: Laboratory Last Values Urine pH (Auto) 5.5 12/25/24 15:43 Specific Blanchard (Auto) 1.020 12/25/24 15:43 Urine Protein (Auto) 15 mg/dL 12/25/24 15:43 Glucose (UA)(Auto) 0 mg/dL 12/25/24 15:43 Urine Ketones (Auto) Negative 12/25/24 15:43 Urine Blood (Auto) 0 Chris/uL 12/25/24 15:43 Urine Nitrite (Auto) Negative 12/25/24 15:43 Urine Bilirubin (Auto) 0 mg/dL 12/25/24 15:43 Urine Urobilinogen (Auto) 0.2 mg/dL 12/25/24 15:43 Leukocyte Esterase (Auto) 0 Cailin/uL 12/25/24 15:43 Date of Service: 10/20/24 CLINICAL HISTORY: History of kidney stones, evaluate for hydronephro CT abdomen and pelvis with contrast Comparison: CT - CT ABDOMEN PELVIS W IV CON - 10/20/24 19:19 EDT Findings: The lung bases are clear. Status post cholecystectomy. Extensive nodularity of the liver with mild atrophic changes concerning for hepatic cirrhosis. No hydronephrosis. Stable 3-4 mm left kidney lower pole nonobstructing stones. No bowel obstruction, pneumoperitoneum, or pneumatosis. Pelvic contents unremarkable. Normal appendix. No acute fracture. IMPRESSION: No acute findings. No hydronephrosis. Stable 3-4 mm left kidney lower pole nonobstructing stones. Extensive nodularity of the liver with mild atrophic changes concerning for hepatic cirrhosis. Status post cholecystectomy. Date of Service: 05/20/24 CT ABDOMEN AND PELVIS WITHOUT IV CONTRAST CLINICAL INFORMATION: Right-sided pain, questionable stone COMPARISON: CT abdomen/pelvis January 09, 2024 TECHNIQUE: Multiple axial images were obtained from the superior aspect of the liver through the pubic symphysis without intravenous contrast. Images were evaluated on independent dedicated 3-D workstation and 3-D images were reconstructed with concurrent radiologist supervision and subsequently interpreted. Oral contrast was not administered. This CT examination was performed using dose optimization techniques as appropriate, variously including the following: *Automated exposure control *Adjustment of mA and/or kV according to patient size (this includes techniques or standardized protocols for targeted exams where dose is matched to indication/reason for exam; i.e. extremities or head) *Use of iterative reconstruction technique DLP: 517 mGy-cm FINDINGS: LUNG BASES: The visualized lung bases are clear. CARDIOMEDIASTINUM: The visualized heart is normal in size without pericardial effusion. No coronary artery calcification. LIVER: Nodular in contour. Homogeneous in attenuation. Enlarged in size measuring 19 cm in the midclavicular line. GALLBLADDER: Absent BILIARY SYSTEM: No intrahepatic or extrahepatic biliary dilation. PANCREAS: Homogeneous in attenuation. SPLEEN: Normal in size. GENITOURINARY: No contour deforming masses. No perinephric fluid collection. Left lower pole 3 mm nonobstructing renal calculus. No hydroureteronephrosis. ADRENAL GLANDS: Unremarkable. REPRODUCTIVE: Uterus and and bilateral adnexa are unremarkable. GASTROINTESTINAL: The visualized alimentary tract is normal in course. No evidence of obstruction. APPENDIX: The appendix is not visualized; however, no pericecal inflammatory changes are seen in the right lower quadrant. PERITONEUM: No pneumoperitoneum. No intra-abdominal fluid collection. VASCULATURE: No abdominal aortic aneurysm. LYMPH NODES: No pathologically enlarged abdominal or pelvic lymph nodes. SOFT TISSUES/MUSCULOSKELETAL: There is no acute fracture or significant focal osseous lesion. IMPRESSION: Left lower pole 3 mm nonobstructing renal calculus. Date of Service: 05/04/23 EXAMINATION: CT ABDOMEN AND PELVIS WITHOUT CONTRAST CLINICAL INFORMATION: Flank pain COMPARISON: CT abdomen pelvis 02/25/2023 FINDINGS: LUNG BASES: The visualized lung bases are unremarkable. LIVER, GALLBLADDER, AND BILIARY TREE: The liver is cirrhotic in appearance with a nodular border and is mildly enlarged. No liver masses or bile duct dilatation. Status post cholecystectomy PANCREAS: Unremarkable. SPLEEN: Spleen is enlarged at 14.9 cm. ADRENAL GLANDS: Unremarkable. KIDNEYS AND URETERS: There is a small left pericapsular hematoma. Multiple small stone fragments are present in the distal left ureter, the largest measuring about 4 mm, and this is associated with ureteral dilatation and left-sided pelvocaliectasis. Additional intrarenal calculi are seen the largest measuring 0.7 cm on the left. Calcification near the right renal pelvis may be vascular. BLADDER: Other than above, unremarkable GASTROINTESTINAL TRACT: The small and large bowel are unremarkable. The appendix is unremarkable. ABDOMINAL WALL: No significant hernia is appreciated. LYMPH NODES: No retroperitoneal lymphadenopathy VASCULAR: Unremarkable. PELVIC VISCERA: The uterus and adnexa are unremarkable. OSSEOUS STRUCTURES: Unremarkable. IMPRESSION: 1. Multiple small stone fragments in the distal left ureter with associated ureteral dilatation and left-sided pelvocaliectasis. There is a small left pericapsular hematoma. Although history of ESWL was not provided, these findings could be secondary to that if that was in fact performed 2. Additional intrarenal calculi are seen on the left. EXAMINATION: US RETROPERITONEAL LIMITED (RENAL ONLY) CLINICAL INFORMATION: Bilateral flank pain. COMPARISON: Baseline CT scan 05/04/2023. TECHNIQUE: Standard bilateral renal ultrasound FINDINGS: RIGHT KIDNEY: 9.6 x 4.8 x 5.4 cm (SAG x AP x TRV). The kidney is normal in size, contour, and echogenicity. Renal cortical thickness is normal. No calculi or focal parenchymal lesions. No hydronephrosis. Vascular calcifications noted. LEFT KIDNEY: 10.7 x 4.8 x 5.5 cm (SAG x AP x TRV). The kidney is normal in size, contour, and echogenicity. Renal cortical thickness is normal. Previous noted perinephric collection has resolved. Low pole stone measures up to 5 mm. IMPRESSION: Resolved left-sided perinephric collection. Nonobstructing left-sided renal calculus. Date of Service: 07/10/23 EXAMINATION: US PELVIS LIMITED (BLADDER) CLINICAL INFORMATION: Calculus of ureter status post left ESWL on May 02, 2023. CT abdomen and pelvis showed a small left pericapsular hematoma not clinically significant, left ureteral stones, Stein[address]; patient has passed some stones, follow-up imaging. COMPARISON: None available. TECHNIQUE: Real-time imaging of the bladder. FINDINGS: BLADDER: Well distended. Bilateral ureteral jets are demonstrated. Prevoid bladder volume is 329 mL. Postvoid bladder volume is 83 mL. No gross bladder calculi are appreciated. Limited visualization due to bowel gas. IMPRESSION: 1. Postvoid bladder volume is 83 mL. 2. No gross bladder calculi are appreciated. Limited visualization due to bowel gas. Assessment & Plan Assessment & Plan Orders: Orders AMB Urinalysis Automated Today Z13.9 - Encounter for screening, unspecified Medications: New tamsulosin (Flomax) 0.4 mg PO BEDTIME 20 caps 0RF to help pass kidney stones naproxen 500 mg PO BID 40 tabs 0RF pain Coding
== END 2024-12-25 16:24 | disposition home or self-care (01) ==
LOC: HO.HUSH 15:30
PROVIDERS: PCP Nurse Practitioner Primary Care; Visit Provider Urology
DX: Z13.9 Encounter for screening, unspecified (principal)

== ENCOUNTER 2024-12-25 16:06 | Outpatient (REF) | payer MEDICAID, SELFPAY ==
[2024-12-25 21:30] LABS: Bacterial Vaginosis PCR POSITIVE (Negative); Candida Group PCR NOT DETECTED (Not Detect); Candida glab krusei PCR NOT DETECTED (Not Detect); Trichomonas vaginalis PCR NOT DETECTED (Not Detect)
== END 2024-12-25 16:07 | disposition home or self-care (01) ==
LOC: HO.HHCLNP 16:06
PROVIDERS: Visit Provider Nurse Practitioner Primary Care
DX: N20.0 Calculus of kidney (principal); R31.9 Hematuria, unspecified; N89.8 Other specified noninflammatory disorders of vagina; Z13.9 Encounter for screening, unspecified
CPT/HCPCS: 81003; 81515

== ENCOUNTER 2024-12-30 12:54 | Outpatient (AMB) | payer MEDICAID, SELFPAY ==
--- NOTE | 2024-12-30 13:01 | A.OFFVIS_ITS ---
Vital Signs 12/30/24 13:02 Height 5 ft 3 in Weight 175 lb BMI 31.0 BP 137/76 Blood Pressure Location Lt brachial Position Sitting Respiration 16 Pulse 55 Pulse Source Pulse Oximeter Pulse Oximetry (%) 97 Oxygen Delivery Method Room Air Intake Visit Reasons: Chronic pain of both shoulders Casting Supervisor Required: No Casting Supervisor Services: Casting Supervisor Offered & Declined Allergies morphine Adverse Reaction (Verified 12/30/24 13:08) Abdominal Pain HPI Comments Details: The patient is a 59-year-old female presenting with chronic shoulder and neck pain. Her primary concern is bilateral hand pain which she attributes to diabetic neuropathy and arthritis. I have informed patient that she also has moderate to severe bilateral carpal tunnel syndrome as indicated by a nerve conduction test last year. The pain often radiates up her upper arms, impairing her ability to perform daily functions and disturbing her sleep, especially at night. She also experiences pain due to arthritic changes and cervical disc degeneration in the neck, which is most painful when looking upward and to sides. The presence of diabetic polyneuropathy adds to her pain complexity. Despite using Tylenol, ibuprofen, and gabapentin for pain management, she reports limited relief and side effects affecting her quality of life. She has tried cyclobenzaprine in the past but reports it caused her significant drowsiness. Attempts at physical therapy have not been pursued consistently due to significant and disabling pain. Denies prevous hand, shoulder or spine surgery or injections or evaluation by Hand Specialist. - Pain onset: Chronic; significant for over a year - Quality and character: Moderate to severe; radiating from hands to neck; stabbing, tingling, numbness, burning, pinching, aching - Primary location: Hands, with radiation towards neck and shoulders; constant 9/10 - Exacerbating factors: Nighttime, specific neck movements (looking upward) - Relieving factors: None notably effective, tried wrist bracing, no relief - Interference: Daily activities, hand function, sleep - Affect: Pain impacts the patient's mood due to sleep disturbances and functional limitations - Analgesia: Currently using Tylenol, ibuprofen, gabapentin, though reports limited relief - Adverse Effects: Experience side effects impairing daily function - Activities of Daily Living: Pain hinders daily activities, particularly with hand functions and sleep - Aberrant Drug-Related Behaviors: No signs of medication misuse reported ON LICENSE OF [facility] Medical History (Updated 12/30/24 @ 13:41 by ADRIANNE Siddiqui) Bilateral hand pain Disc disease, degenerative, cervical Neuropathy Somnolence, daytime Flank pain RUQ abdominal pain Left foot pain COVID-19 Hepatitis C Rheumatoid arthritis Flank pain Renal stones Bipolar disorder Panic disorder Depression Anxiety Abdominal distension (gaseous) Asthma Hyperlipidemia 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 Mother Diabetes mellitus Sister Diabetes mellitus Brother No problems noted. Paternal Uncle Colon cancer Social History Household Members: None Housing: Apartment Do you presently have visiting nurse or other home services: Yes Alcohol intake: current Alcohol intake frequency: former alcohol drinker Alcohol type: beer Patient Tobacco Use Status: Current everyday Tobacco user Tobacco use type: Cigarette Cigarettes Per Day: 2 Years Smoked: 15 service: No Review of Systems Const Details: - Musculoskeletal: Reports neck pain with certain movements; denies significant shoulder pain - Neurological: Reports bilateral hand pain, impaired function - Endocrine: Reports managing blood sugar with insulin - General: Reports disrupted sleep due to pain All systems reviewed & are unremarkable except as noted in HPI and below Reports as per HPI, Denies body aches, Denies chills, Reports difficulty sleeping, Reports fatigue, Denies fever(s), Denies headache(s), Denies malaise, Reports weakness (both hands) and Denies weight loss ENT Denies headache(s) Neuro Denies headache(s) and Reports weakness (both hands) Endo Reports fatigue Physical Exam Vital Signs: Last Vital Signs Pulse 55 12/30/24 13:02 Resp 16 12/30/24 13:02 BP 137/76 12/30/24 13:02 Pulse Ox 97 12/30/24 13:02 Oxygen Delivery Method Room Air 12/30/24 13:02 General: Appears afebrile. Moderate distress due to pain. Alert and oriented. Mood and affect appropriate. Follows and participates in conversation appropriately. Respiratory effort is unlabored. No cough. Able to transition from sit to stand unassisted. Ambulates with bilaterally normal heel strike and toe off. Neck Other: Patient with decreased cervical ROM in all planes/especially with bilateral lateral rotation. Reports increased pain with cervical extension. Spurling compression test negative. Pain is unchanged by Spurling maneuver with retraction. Elvey's tension test positive bilaterally, with radiation of pain from neck to wrist. Lhermitte's test was negative. DTRs diminished. Patient demonstrated 4/5 motor strength of bilateral upper extremities due to pain. 2 + radial pulses. Significant tightness throughout right upper trapezius as well as TTP throughout bilateral upper trapezius muscles. No paravertebral tenderness over facet joints bilaterally. Multiple taut bands palpated throughout bilateral upper trapezius muscles. +Tinel's, +Phalen's tests positive bilaterally. Neck: Yes normal visual inspection, Yes no lymphadenopathy, Yes supple, No anterior neck swelling, Yes no JVD, No prominent supraclavicular fat pad and Yes prominent dorsocervical fat pad Back/Spine/Pelvis Cervical Spine: No collar present, No Lhermitte's sign positive, loss of normal cervical lordosis, cervical muscular tenderness, pain with cervical ROM, No Cervical spine scars present, cervical spasm (bilateral), No Cervical spine tenderness and No step off deformity Extrem Right upper extremity: shoulder/upper arm Details: normal to inspection, tenderness Location: over the subacromial bursa, normal ROM and warmth; no swelling, no ecchymosis and no crepitus Left upper extremity: shoulder/upper arm Details: inspection abnormal, tenderness Location: of the A-C joint and over the subacromial bursa and normal ROM; no ecchymosis, no crepitus and no unsual warmth Results Reviewed Results Reviewed: XR SHOULDER, RIGHT 09/23/24 CLINICAL INFORMATION: r/o AVN, question of AVN on XR from ED 09/03/24 COMPARISON: 09/01/24 chest x-ray. TECHNIQUE: AP external rotation, Grashey, scapular Y, and axillary views of the right shoulder. FINDINGS: Normal bone mineralization. No fracture, dislocation, or suspicious bone lesion. Normal alignment. The glenohumeral joint is normal. No evidence of AVN. The AC joint is normal. Mild spurring of the greater tuberosity. There is a neutral lateral acromion. No undersurface spurring. The subacromial space is preserved. Remainder of the soft tissue and bony structures appear normal. IMPRESSION: Essentially normal right shoulder. No evidence of AVN. XR SHOULDER, LEFT 09/23/24 CLINICAL INFORMATION: r/o AVN, question of AVN on XR from ED 09/03/24 COMPARISON: Chest x-ray dated 09/01/2024 TECHNIQUE: AP external rotation, Grashey, scapular Y, and axillary views of the left shoulder. FINDINGS: Normal bone mineralization. No fracture, dislocation, or suspicious bone lesion. Normal alignment. The glenohumeral joint is normal. No evidence of AVN. The AC joint is normal. Mild spurring of the greater tuberosity. There is a neutral lateral acromion. No undersurface spurring. The subacromial space is preserved. Remainder of the soft tissue and bony structures appear normal. IMPRESSION: Essentially normal left shoulder. No evidence of AVN. XR CERVICAL SPINE 09/23/24 CLINICAL INFORMATION: neck pain radiating to shoulders/arms COMPARISON: None available. TECHNIQUE: 6 views of the cervical spine, inclusive of flexion and extension views, were obtained. FINDINGS: No significant scoliosis. Normal lordosis. Normal sagittal alignment. No subluxations. No fracture, compression deformities, or suspicious bone lesions. Craniocervical junction and C1-2 articulation intact and aligned. Mild degenerative disc change C3-C7, without significant loss of disc height. Normal facet alignment. No significant facet arthrosis. Oblique views demonstrate no significant bony neural foraminal narrowing bilaterally. Prevertebral soft tissues are normal. There are bilateral mild carotid bulb calcifications. Imaged lung apices clear. IMPRESSION: 1. No acute finding of the cervical spine. 2. Mild multilevel disc degeneration. NE electromyogram (EMG); NE nerve conduction velocity 05/01/24 FINDINGS: Bilateral median motor nerves showed prolonged distal latency, normal amplitude and normal conduction velocity. Right median sensory nerve showed prolonged peak latency and small amplitude. Left median sensory nerve showed prolonged peak latency. Bilateral radial sensory nerves no response. All other nerves tested were within normal. Concentric needle EMG was performed in selected muscles of the bilateral upper extremities. Study did not reveal signs of electric abnormalities as shown in the table above. IMPRESSION: 1. This is an abnormal study. 2. There is electrodiagnostic evidence for bilateral moderate-severe median neuropathy at the wrist, consistent with carpal tunnel syndrome. 3. There is no electrodiagnostic evidence for ulnar neuropathy, brachial plexopathy, or cervical radiculopathy. 4. Absent radial sensory nerves could be consistent with underlying diabetic polyneuropathy. Assessment & Plan Assessment & Plan (1) Cervical spondylosis: Code(s): M47.812 - Spondylosis without myelopathy or radiculopathy, cervical region Category: Medical (2) Bilateral carpal tunnel syndrome: Code(s): G56.03 - Carpal tunnel syndrome, bilateral upper limbs Category: Medical (3) Bilateral hand pain: Code(s): M79.641 - Pain in right hand; M79.642 - Pain in left hand Category: Medical (4) Bilateral shoulder pain: Code(s): M25.511 - Pain in right shoulder; M25.512 - Pain in left shoulder Category: Medical (5) Disc disease, degenerative, cervical: Code(s): M50.30 - Other cervical disc degeneration, unspecified cervical region Category: Medical Plan Patient will be referred to a Hand Specialist for further evaluation and management of her bilateral carpal tunnel syndrome, considering significant and disabling bilateral hand pain. Continue bracing especially at night, gabapentin, NSAIDs short term, and avoid painful repetitive wrist movements. For her neck pain attributed to arthritis and disc degeneration, we will schedule diagnostic neck injections to confirm axial cervical spine pain for potential Sprint PNS trial vs RFA procedures. Alleviating strategies including acupuncture via [facility] may offer additional benefit. For diabetic polyneuropathy, tight glycemic control with insulin and dietary guidance will be reinforced. Schedule Bilateral Diagnostic C4-C5-C6 MBB with local and fluoroscopy. Expectations, risks and benefits were reviewed. Patient is aware she will be contacted to schedule this procedure. We will pause Aspirin for 7 days with prescribing physician permission. All questions and concerns have been answered and patient agreed with the plan. Follow up after injections and sooner as needed. Patient was informed and verbally consented to the use of an ambient scribe for clinic note documentation during this visit. Orders: Referrals Hand Surgery Referral G56.03 - Carpal tunnel syndrome, bilateral upper limbs Medications: New lidocaine 5% 2 patches topical DAILY PRN 30 ea 0RF Pain M47.812 - Spondylosis without myelopathy or radiculopathy, cervical region Patient Instructions: - Attend the appointment with the Hand Specialist for carpal tunnel release evaluation. - Schedule diagnostic neck injections for arthritis pain assessment. - Continue managing diabetes with diet, regular physical activity and insulin as instructed. - Consider acupuncture for additional musculoskeletal relief via [facility]. - Monitor for any changes in symptoms and report if they worsen. Coding Level of Care Code New Pt Level 4 (82028) Diagnoses Cervical spondylosis M47.812 Bilateral carpal tunnel syndrome G56.03 Bilateral hand pain M79.641; M79.642 Bilateral shoulder pain M25.511; M25.512 Disc disease, degenerative, cervical M50.30
[2024-12-30 13:02] VITALS: BP 137/76; PULSE 55; RESP 16; O2SAT 97; BMI 31.0
--- OUTSIDE RECORDS SUMMARY | 2024-12-30 14:13 | XMS_ITS | Encounter Summary ---
Author Organization [employer] Address [address] [place] [address] [address] [place] [address] Care Team Providers Care Nail Tech Name Role Phone Wanda Bonilla Primary Care Provider Rajni García RN Unavailable [phone] April Michele MD Unavailable [phone] Lee Hubbard MD Unavailable [phone] Reason for Visit * Reason Onset Date Comments Referral 08/30/2022 Encounter Details Date Type Department Care Team ([facility] st Contact Info) Description 08/30/[address] [facility] MEDICINE [address] [place], [place] [id number] Wanda Bonilla ANP [address] [place], [place] [id number] Referral Social History Tobacco Use Types Packs/Day [...] see a neurologist Please contact pt at [phone] documented in this encounter Plan of Treatment Upcoming Encounters Date Type Department Care Team (Late st Contact Info) Description 01/20/2025 3:00 PM EDT Clinical Support [facility] MEDICINE [address] [place] [address] 04/20/2025 2:30 PM EDT Office Visit [facility] OPTOMETRY [address] [place] [address] Tyler, Smiley, OD [address] [place] [address] documented as of this encounter Visit Diagnoses Not on filedocumented in this encounter Additional Health Concerns Assessment Noted Time PHQ-9 Depression Total Score: 0 08/25/19 23 1:48 PM EST documented as of this encounter Care Teams Nail Tech Relationship Specialty Start Date End Date Wanda Bonilla ANP [address] [place] [address] PCP - General Family Medicine 09/03/20 Rajni García RN [address] [place] [address] Electric WelderAgricultural Engineering Teacher 09/18/24 12/15/24 April Michele MD [address] [place] [address] Referring Physician Infectious Diseases 10/09/24 Lee Hubbard MD [address] [place] [address] Urology 10/09/24 [facility] cardiology 11/12/23 documented as of this encounter
== END 2024-12-30 13:35 | disposition home or self-care (01) ==
PROVIDERS: PCP Nurse Practitioner Primary Care; Referring Provider Emergency Medicine; Visit Provider Nurse Practitioner Family
DX: M47.812 Spondylosis without myelopathy or radiculopathy, cervical region (principal); G56.03 Carpal tunnel syndrome, bilateral upper limbs; M79.641 Pain in right hand; M79.642 Pain in left hand; M25.511 Pain in right shoulder; M25.512 Pain in left shoulder; M50.30 Other cervical disc degeneration, unspecified cervical region
CPT/HCPCS: 99204

== ENCOUNTER → 2024-12-30 12:54 | Outpatient (BNVA) | payer MEDICAID, SELFPAY | PROVIDERS: PCP Nurse Practitioner Primary Care; Referring Provider Emergency Medicine; Visit Provider Nurse Practitioner Family | DX: M47.812 Spondylosis without myelopathy or radiculopathy, cervical region (principal); M50.30 Other cervical disc degeneration, unspecified cervical region; M25.512 Pain in left shoulder; M79.641 Pain in right hand; M79.642 Pain in left hand; M25.511 Pain in right shoulder; E11.40 Type 2 diabetes mellitus with diabetic neuropathy, unspecified; G56.03 Carpal tunnel syndrome, bilateral upper limbs | CPT/HCPCS: 99212 ==

== ENCOUNTER 2025-01-19 08:30 | Emergency (ER) | payer MEDICAID, SELFPAY ==
--- NOTE | ~2025-01-19 | CT_ITS ---
EXAMINATION: CT ABDOMEN PELVIS WITHOUT IV CONTRAST HISTORY: right flank pain rad to groin COMPARISON: Comparison is made with the prior examination dated 10/20/2024. TECHNIQUE: CT scan of the abdomen and pelvis was performed without contrast using standard departmental protocol. Coronal and sagittal reformatted images were generated and reviewed. Oral contrast material was not administered per department protocol. This CT exam was performed with one or more of the following dose reduction techniques: automated exposure control, adjustment of the mA and/or kV according to patient size, use of iterative reconstruction technique. DLP: 517 mGy-cm FINDINGS: LOWER CHEST: The visualized lung bases are clear. There is no pleural effusion. CARDIOVASCULATURE: The heart is normal in size. There is no pericardial effusion. LIVER: The liver again demonstrates a nodular contour, consistent with cirrhosis. There is a recannulized paraumbilical vein. Evaluation for masses is limited by lack of intravenous contrast material. GALLBLADDER / BILE DUCTS: The gallbladder is surgically absent. There is no intra or extrahepatic biliary ductal dilatation. SPLEEN: Spleen is enlarged. PANCREAS: The pancreas has an unremarkable unenhanced appearance. ADRENAL GLANDS: Unremarkable. KIDNEYS/RETROPERITONEUM: Again seen is a 3 mm nonobstructing calculus at the lower pole of the left kidney. No right renal calculi are identified. There is no hydronephrosis or hydroureter. No ureteral calculi are identified.. LYMPH NODES: No retroperitoneal lymphadenopathy is identified in the abdomen or pelvis. VASCULATURE: The abdominal aorta demonstrates atherosclerotic calcification, but is normal in caliber. MESENTERY/PERITONEUM: No free fluid. No masses. There is no free intraperitoneal gas. STOMACH: The stomach is collapsed, limiting evaluation. SMALL BOWEL: The small bowel is normal in caliber. COLON: The colon is unremarkable. APPENDIX: Normal. URINARY BLADDER/PELVIC ORGANS: The urinary bladder is collapsed, limiting evaluation. The uterus and ovaries have an unremarkable unenhanced appearance. BONES / SOFT TISSUES: No suspicious bony or soft tissue abnormalities. CT/CT abdomen pelvis wo IV con IMPRESSION: 1. 3 mm nonobstructing left lower pole renal calculus. No evidence of right nephrolithiasis or ureteral obstruction. 2. Cirrhosis of the liver with splenomegaly. 4. The urinary bladder is collapsed, limiting evaluation. 5. The uterus and ovaries have an unremarkable unenhanced appearance. Electronically signed by: Javier Landin MD 01/19/2025 10:06 AM EDT
[2025-01-19 08:38] VITALS: BP 155/84; PULSE 67; RESP 18; TEMP 35.9; O2SAT 97; BMI 31.0
--- NOTE | 2025-01-19 09:07 | ED.BACK ---
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 No radiation. Denies fever, chills, N/V, urinary sx. No blunt injury/trauma. No bowel bladder incontinence or retention, saddle anesthesia, numbness/tingling/weakness of the LEs. [facility] supervisor pastry utilized throughout visit to communicate with patient. Related Data Home Medications ?Medication ?Instructions ?Recorded ?Confirmed gabapentin 300 mg capsule 300 mg PO BID 07/28/20 01/22/25 cholecalciferol (vitamin D3) 25 25 mcg PO QAM 10/12/22 01/22/25 mcg (1,000 unit) capsule (Vitamin D3) insulin lispro 100 unit/mL 20 unit subcut TID 10/12/22 01/22/25 subcutaneous pen pen needle, diabetic 31 gauge x #1,200 ea 10/12/22 01/22/2512/12 (UltiCare Pen Needle) pioglitazone 15 mg tablet 15 mg PO QAM 10/12/22 01/22/25 quetiapine 25 mg tablet 25 mg PO BID PRN Sleep 05/05/23 01/22/25 albuterol sulfate 2.5 mg/3 mL 2.5 mg inhalation Q4H PRN sob 09/10/23 01/22/25 (0.083 %) solution for nebulization aspirin 81 mg tablet,delayed 81 mg PO QPM 09/24/23 01/22/25 release semaglutide 0.25 mg or 0.5 mg (2 0.5 mg subcut MO 09/24/23 01/22/25 mg/3 mL) subcutaneous pen injector (Ozempic) amlodipine 10 mg tablet 10 mg PO QAM 11/12/23 01/22/25 insulin glargine 100 unit/mL (3 60 unit subcut BEDTIME 11/12/23 01/22/25 mL) subcutaneous pen (Lantus Solostar U-100 Insulin) lisinopril 40 mg tablet 40 mg PO QPM 11/12/23 01/22/25 quetiapine 100 mg tablet 150 mg PO BEDTIME 11/12/23 01/22/25 ropinirole 0.5 mg tablet 0.5 mg PO BEDTIME 11/12/23 01/22/25 rosuvastatin 5 mg tablet 5 mg PO BEDTIME 11/12/23 01/22/25 famotidine 20 mg tablet 20 mg PO TID 11/13/23 01/22/25 fluticasone propionate 110 1 puff inhalation Q12H 11/13/23 01/22/25 mcg/actuation HFA aerosol inhaler sennosides 8.6 mg-docusate sodium 2 cap PO BEDTIME PRN Constipation 11/13/23 01/22/25 50 mg capsule (Senna Plus) trazodone 150 mg tablet 150 mg PO BEDTIME PRN Sleep 11/13/23 01/22/25 carvedilol 6.25 mg tablet 6.25 mg PO 12/21/23 01/22/25 Previous Rx's ?Medication ?Instructions ?Recorded polyethylene glycol 3350 17 17 g PO DAILY 1 day #238 grams 02/07/24 gram/dose oral powder (Miralax) cyclobenzaprine 10 mg tablet 10 mg PO TID PRN muscle spasm #15 06/08/24 tabs loratadine 10 mg tablet (Claritin) 10 mg PO DAILY #30 tabs 06/08/24 naproxen 500 mg tablet 500 mg PO BID PRN pain #14 tabs 06/08/24 sofosbuvir 400 mg-velpatasvir 100 1 tab PO DAILY 12 weeks #84 tabs 07/28/24 mg tablet (Epclusa) naproxen 500 mg tablet 500 mg PO BID pain #40 tabs 12/25/24 tamsulosin 0.4 mg capsule (Flomax) 0.4 mg PO BEDTIME to help pass 12/25/24 kidney stones #20 caps oxycodone 5 mg tablet 5 mg PO Q8H PRN pain (scale score 01/19/25 7-10) 3 days #9 tabs lidocaine 5 % topical patch 2 patch topical DAILY PRN Pain #30 01/29/25 ea pyridoxine (vitamin B6) 100 mg 100 mg PO QAM #90 tabs 02/11/25 tablet Allergies Allergy/AdvReac Type Severity Reaction Status Date / Time morphine AdvReac Abdominal Verified 01/22/25 14:17 Pain Review of Systems Review of Systems: Yes all other systems are reviewed and are negative PMFSH Past Medical History Attestation statement: The following information was validated with the patient. Source: old records reviewed and nursing notes reviewed Medical History Bilateral hand pain Disc disease, degenerative, cervical Neuropathy Somnolence, daytime Flank pain RUQ abdominal pain Left foot pain COVID-19 Hepatitis C Rheumatoid arthritis Flank pain Renal stones Bipolar disorder Panic disorder Depression Anxiety Abdominal distension (gaseous) Asthma Hyperlipidemia 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 Mother Diabetes mellitus Sister Diabetes mellitus Brother No problems noted. Paternal Uncle Colon cancer Social History Social History Household Members: None Housing: Apartment Do you presently have visiting nurse or other home services: Yes Unable to assess alcohol history related to: Unknown Alcohol intake: current Alcohol intake frequency: former alcohol drinker Alcohol type: beer Patient Tobacco Use Status: Current everyday Tobacco user Tobacco use type: Cigarette Cigarettes Per Day: 2 Years Smoked: 15 service: No Physical Exam Vital Signs: Vital Signs: Last Vital Signs Temp 98.7 F 01/19/25 12:42 Pulse 53 01/19/25 12:42 Resp 18 01/19/25 12:42 BP 186/77 H 01/19/25 12:42 Pulse Ox 98 01/19/25 12:42 O2 Del Method Room Air 01/19/25 12:42 BMI result Body Mass Index 31.0 Hypertensive, vitals are otherwise WNL General: Well appearing, in no acute distress. Skin: Warm, dry, intact. No rashes or lesions. Head: Normocephalic, atraumatic. EENT: Hearing is intact b/l. Conjunctiva clear. Sclera is anicteric. PERRLA. EOM intact. Moist mucous membranes.? Neck: Supple without LAD Cardiac: Chest wall symmetric. RRR Lungs: Normal respiratory effort without accessory muscle use. CTA bilaterally Abdomen: Soft, non-tender, non-distended. No rebound tenderness or guarding. Positive BS x4. no cvat. Back: No midline spinous tenderness or step-off deformity. No paraspinal muscle tenderness to palpation. Ext: Upper and lower extremities atraumatic, without tenderness, deformity, swelling or erythema Neuro: AOx3. Normal speech. Strength 5/5 intact throughout. No saddle anesthesia. Sensation intact to light touch. NV intact distally. Ambulating with steady gait. Course Course Course Narrative: 1233 -- CBC with slight leukopenia to 3.6, appears to be around patient's baseline. Normocytic anemia, H&H above transfusion threshold. Chemistry without acute electrolyte abnormality requiring intervention. No BELLA. Random glucose 140. Liver function around patient's baseline. Total bilirubin WNL at 0.4. Urine negative for infection, blood. CT abdomen/pelvis showing 3 mm nonobstructing left lower pole renal calculi without evidence of obstruction. No right nephrolithiasis or ureteral obstruction. There is cirrhosis of the liver with splenomegaly, evident on prior scans. Unremarkable uterus/ovaries. > patient reports resolution of pain after receiving IV Tylenol and lidocaine patch. At this time, there is no clear etiology for her symptoms. I feel she is stable for discharge with outpatient follow up. Patient has remained stable throughout ED visit today. Discussed worrisome signs and symptoms and when to return to the ED. All questions answered at this time. Patient is agreeable with disposition and stable for discharge. Medications Administered Discontinued Medications Generic Name Dose Route Start Last Admin Trade Name Freq PRN Reason Stop Dose Admin Sodium Chloride 1,000 mls @ 999 mls/hr 01/19/25 11:00 01/19/25 12:26 Ns IV 01/19/25 12:00 Infused .Q1H1M ELISE Infusion Acetaminophen 1,000 mg in 100 mls @ 400 mls/hr 01/19/25 10:55 01/19/25 11:44 Ofirmev IV 01/19/25 11:09 Infused ONCE ONE Infusion Lidocaine 1 patch 01/19/25 10:56 01/19/25 11:19 Lidocaine 4 % Patch Adh..Patch TRANSDERMA 01/19/25 10:57 1 patch ONCE ONE Administration Protocol Medical Decision Making Medical Decision Making [facility] Narrative: 59 year old Argentine speaking female with pmhx significant for ureteral stones treated with lithotripsy without stenting in the past, complex ovarian cyst, insulin-dependent diabetes, hyperlipidemia, asthma, and 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 Hypertensive, vitals are otherwise WNL. exam is benign. Differential diagnosis includes MSK sprain/strain, renal colic, nephrolithiasis, hydronephrosis. Less likely pyelonephritis. Unlikely cauda equina, Guillain-Quinton, epidural abscess, cord compression. Plan for labs, imaging, pain control, re-evaluation. Differential Diagnosis Differential Diagnoses: The differential diagnosis associated with the presentation includes as above. Admission/Observation not indicated. Lab Data [facility] Lab Attestation statement: I reviewed the patient's lab results. as above. 01/19/25 10:02 01/19/25 10:02 Labs: Lab Results 01/19/25 01/19/25 Range/Units 10:02 10:19 WBC 3.6 L (4.8-10.8) X10*3/uL RBC 3.80 L (4.20-5.50) X10*6/uL Hgb 11.0 L (12.0-16.0) g/dl Hct 32.1 L (37.0-47.0) % MCV 84.5 (80.0-98.0) fL MCH 28.9 (27.0-33.0) pg MCHC 34.3 (31.0-35.0) g/dl RDW 13.2 (11.0-16.0) % Plt Count 89 L (160-400) X10*3/uL MPV 10.0 (9.4-12.3) fL Immature Gran % (Auto) 0.3 (0.0-0.4) % Neut % (Auto) 50.1 (45-73) % Lymph % (Auto) 34.3 (20-40) % [place] % (Auto) 12.5 H (2-11) % Eos % (Auto) 2.5 (0-4) % Baso % (Auto) 0.3 (0-2) % Lymph # (Auto) 1.2 (1.2-4.9) X10*3/uL [place] # (Auto) 0.5 (0.1-1.2) X10*3/uL Eos # (Auto) 0.1 (0.0-0.4) X10*3/uL Baso # (Auto) 0.0 (0.0-0.2) X10*3/uL Abs Immat Gran (auto) 0.01 (0.00-0.03) X10*3/uL Absolute Neuts (auto) 1.8 L (2.0-8.3) x10*3/uL Absolute Nucleated RBC 0.000 (0.0-0.012) X10*3/uL Nucleated RBC % (auto) 0.0 (0.0-0.2) /100WBC Sodium 142 (135-145) mmol/L Potassium 3.9 (3.3-5.1) mmol/L Chloride 111 H (96-108) mmol/L Carbon Dioxide 25 (22-29) mmol/L Anion Gap 10 L (12-20) BUN 13 (9-16) mg/dL Creatinine 0.92 (0.5-1.4) mg/dL Estim Creat Clear Calc 64.0 Estimated GFR > 60 Random Glucose 140 H (60-115) mg/dL Calcium 9.1 (8.4-10.2) mg/dL Magnesium 2.1 (1.6-2.6) mg/dL Total Bilirubin 0.4 (0.0-1.0) mg/dL AST 41 H (5-31) U/L ALT 50 H (0-31) U/L Alkaline Phosphatase 134 H (39-117) U/L Total Protein 6.7 (6.5-8.0) g/dL Albumin 3.7 (3.5-5.0) g/dL Urine Color Yellow Urine Appearance Cloudy Urine pH 5.5 (5.0-9.0) Ur Specific [place] 1.020 (1.005-1.025) Urine Protein Trace (Neg-Trace) mg/dL Urine Glucose (UA) Negative (Negative) mg/dL Urine Ketones Negative (Negative) mg/dL Urine Blood Negative (Negative) Urine Nitrite Negative (Negative) Ur Leukocyte Esterase Negative (Negative) Independent Interpretation I performed an independent interpretation of an: CT Scan Interpretation: ct a/p without obstructing ureteral stone Radiology Impression Discussion of test interpretation with radiology: I have reviewed the radiologist's reading. Radiologist Impression: Procedure(s): CT abdomen pelvis wo IV con Accession Number(s): [id number] cc: Audrey Urrutia; SANDRA VIEIRA NP~ Report Number: [id number]: Total DLP = 517.00 mGy-cm EXAMINATION: CT ABDOMEN PELVIS WITHOUT IV CONTRAST HISTORY: right flank pain rad to groin COMPARISON: Comparison is made with the prior examination dated 10/20/2024. TECHNIQUE: CT scan of the abdomen and pelvis was performed without contrast using standard departmental protocol. Coronal and sagittal reformatted images were generated and reviewed. Oral contrast material was not administered per department protocol. This CT exam was performed with one or more of the following dose reduction techniques: automated exposure control, adjustment of the mA and/or kV according to patient size, use of iterative reconstruction technique. DLP: 517 mGy-cm FINDINGS: LOWER CHEST: The visualized lung bases are clear. There is no pleural effusion. CARDIOVASCULATURE: The heart is normal in size. There is no pericardial effusion. LIVER: The liver again demonstrates a nodular contour, consistent with cirrhosis. There is a recannulized paraumbilical vein. Evaluation for masses is limited by lack of intravenous contrast material. GALLBLADDER / BILE DUCTS: The gallbladder is surgically absent. There is no intra or extrahepatic biliary ductal dilatation. SPLEEN: Spleen is enlarged. PANCREAS: The pancreas has an unremarkable unenhanced appearance. ADRENAL GLANDS: Unremarkable. KIDNEYS/RETROPERITONEUM: Again seen is a 3 mm nonobstructing calculus at the lower pole of the left kidney. No right renal calculi are identified. There is no hydronephrosis or hydroureter. No ureteral calculi are identified.. LYMPH NODES: No retroperitoneal lymphadenopathy is identified in the abdomen or pelvis. VASCULATURE: The abdominal aorta demonstrates atherosclerotic calcification, but is normal in caliber. MESENTERY/PERITONEUM: No free fluid. No masses. There is no free intraperitoneal gas. STOMACH: The stomach is collapsed, limiting evaluation. SMALL BOWEL: The small bowel is normal in caliber. COLON: The colon is unremarkable. APPENDIX: Normal. URINARY BLADDER/PELVIC ORGANS: The urinary bladder is collapsed, limiting evaluation. The uterus and ovaries have an unremarkable unenhanced appearance. BONES / SOFT TISSUES: No suspicious bony or soft tissue abnormalities. CT/CT abdomen pelvis wo IV con IMPRESSION: 1. 3 mm nonobstructing left lower pole renal calculus. No evidence of right nephrolithiasis or ureteral obstruction. 2. Cirrhosis of the liver with splenomegaly. 4. The urinary bladder is collapsed, limiting evaluation. 5. The uterus and ovaries have an unremarkable unenhanced appearance. Electronically signed by: Javier Landin MD 01/19/2025 10:06 AM EDT External Record Review External record reviewed: Inpatient record Prescription Management I considered prescription management with: Pain Medication Social Determinants Patient?s care significantly limited by Social Determinants of Health including: Other Social Determinant of Health Critical Care Time Critical Care Time Critical Care Time: No Discharge Plan Discharge Clinical Impression: Right flank pain Patient Disposition: Home, Self-Care Instructions: Flank Pain (ED) Additional Instructions: Your workup today is reassuring. Your urine is negative for infection. Your blood work is at your baseline. The CT scan of your abdomen redemonstrates your known cirrhosis. It also shows a 3 mm stone within your left kidney that has been evident on prior scans. There is no kidney stone causing obstruction. Your ovaries appear normal without masses. At this time there is no clear etiology of your pain. You say that oxycodone helps you at home however you ran out of your prescription. I am sending a 3 day supply to your pharmacy. Please contact your primary care provider to set up a follow up visit. Return with new or worsening symptoms. In the case of an emergency call 911. Prescriptions: New oxycodone 5 mg tablet 5 mg PO Q8H PRN (Reason: pain (scale score 7-10)) 3 Days Qty: 9 0RF Rx Instructions: Partial Fill upon patient request. No Action polyethylene glycol 3350 [Miralax] 17 gram/dose powder 17 g PO DAILY 1 Days Qty: 238 0RF Rx Instructions: Mix Miralax with 64 oz(8 cups) of Crystal light. Take 2 tablets of Dulcolax qt 12 pm. Wait to have your 1st bowel movement, then begin drinking Miralax. Drink a glass of Miralax every 10-15 minutes until you are finished. You will drink at least another 4 cups of clear liquid of your choice over the next 2 hours. Please drink as many clear liquids as possible You may have clear liquids up to four hours before your procedure sofosbuvir-velpatasvir [Epclusa] 400-100 mg tablet 1 tab PO DAILY 84 Days Qty: 84 0RF lidocaine 5 % adhesive patch,medicated 2 patch topical DAILY PRN (Reason: Pain) Qty: 30 3RF pyridoxine (vitamin B6) 100 mg tablet 100 mg PO QAM Qty: 90 3RF quetiapine 25 mg tablet 25 mg PO BID PRN (Reason: Sleep) insulin glargine [Lantus Solostar U-100 Insulin] 100 unit/mL (3 mL) insulin pen 60 unit subcut BEDTIME quetiapine 100 mg tablet 150 mg PO BEDTIME lisinopril 40 mg tablet 40 mg PO QPM amlodipine 10 mg tablet 10 mg PO QAM ropinirole 0.5 mg tablet 0.5 mg PO BEDTIME rosuvastatin 5 mg tablet 5 mg PO BEDTIME famotidine 20 mg tablet 20 mg PO TID Senna Plus 8.6-50 mg capsule 2 cap PO BEDTIME PRN (Reason: Constipation) fluticasone propionate 110 mcg/actuation HFA aerosol inhaler 1 puff INHALATION Q12H trazodone 150 mg Tablet 150 mg PO BEDTIME PRN (Reason: Sleep) loratadine [Claritin] 10 mg tablet 10 mg PO DAILY Qty: 30 0RF naproxen 500 mg tablet 500 mg PO BID PRN (Reason: pain) Qty: 14 0RF cyclobenzaprine 10 mg tablet 10 mg PO TID PRN (Reason: muscle spasm) Qty: 15 0RF gabapentin 300 mg capsule 300 mg PO BID (DME) pen needle, diabetic [UltiCare Pen Needle] 31 gauge x 5/16 needle See Rx Instructions .ROUTE QID Qty: 1200 Rx Instructions: As directed insulin lispro 100 unit/mL insulin pen 20 unit subcut TID pioglitazone 15 mg tablet 15 mg PO QAM cholecalciferol (vitamin D3) [Vitamin D3] 25 mcg (1,000 unit) capsule 25 mcg PO QAM albuterol sulfate 2.5 mg /3 mL (0.083 %) solution for nebulization 2.5 mg inhalation Q4H PRN (Reason: sob) carvedilol 6.25 mg tablet 6.25 mg PO tamsulosin [Flomax] 0.4 mg capsule 0.4 mg PO BEDTIME Qty: 20 0RF naproxen 500 mg tablet 500 mg PO BID Qty: 40 0RF Ozempic 0.25 mg or 0.5 mg (2 mg/3 mL) pen injector 0.5 mg subcut MO aspirin 81 mg tablet,delayed release (DR/EC) 81 mg PO QPM Referrals: Sandra Vieira, FITNESS AND WELLNESS DIRECTOR [Primary Care Provider, Internal Medicine] Interventions: ED Discharge Assessment Last Done: 01/19/25 12:42 Discharge Date/Time: 01/19/25 12:42 Print Language: Argentine
--- OUTSIDE RECORDS SUMMARY | 2025-01-19 09:53 | XMS_ITS | Encounter Summary ---
Author Organization [employer] Address [address] [place] [address] [address] [place] [address] Care Team Providers Care Senior Chemist Name Role Phone Wanda Bonilla Primary Care Provider Rajni García RN Unavailable [phone] April Michele MD Unavailable [phone] Lee Hubbard MD Unavailable Reason for Visit * Reason Onset Date Comments Referral 08/30/2022 Encounter Details Date Type Department Care Team ([facility] st Contact Info) Description 08/30/2022 Telephone [facility] [address] [place], [place] [phone] Wanda Bonilla ANP [address] [place], [place] [phone] Referral Social History Tobacco Use Types Packs/Day [...] see a neurologist Please contact pt at [phone] documented in this encounter Plan of Treatment Upcoming Encounters Date Type Department Care Team (Late st Contact Info) Description 01/20/2025 3:00 PM EDT Clinical Support [facility] [address] [place] [address] 04/02/2025 2:30 PM EDT Office Visit [facility] [address] [place] [address] Wanda Bonilla ANP [address] [place] [address] 04/20/2025 2:30 PM EDT Office Visit [facility] OPTOMETRY [address] [place] [address] Tyler, Smiley, OD [address] [place] [address] documented as of this encounter Visit Diagnoses Not on filedocumented in this encounter Additional Health Concerns Assessment Noted Time PHQ-9 Depression Total Score: 0 08/25/19 23 1:48 PM EST documented as of this encounter Care Teams Senior Chemist Relationship Specialty Start Date End Date Wanda Bonilla ANP [address] [place] [address] PCP - General Family Medicine 09/03/20 Rajni García RN [address] [place] [address] Urban AnthropologistDynamics Ax Consultant 09/18/24 12/15/24 April Michele MD [address] [place] [id number] Referring Physician Infectious Diseases 10/09/24 Lee Hubbard MD [address] [place] [address] Urology 10/09/24 [facility] cardiology 11/12/23 documented as of this encounter
[2025-01-19 09:59] VITALS: BP 140/57; PULSE 53; RESP 18; O2SAT 99
[2025-01-19 10:10] LABS: MANUAL DIFF FLAG NO
[2025-01-19 10:20] LABS: Basophils Percent Auto 0.3 % (0-2); Eosinophils Absolute Auto 0.1 X10*3/uL (0.0-0.4); Eosinophils Percent Auto 2.5 % (0-4); Hematocrit 32.1 % (37.0-47.0); Imm Gran Abs Auto 0.01 X10*3/uL (0.00-0.03); Imm Gran Pct Auto 0.3 % (0.0-0.4); Lymphocytes Absolute Auto 1.2 X10*3/uL (1.2-4.9); Lymphocytes Percent Auto 34.3 % (20-40); Mean Corpuscular HGB Conc 34.3 g/dl (31.0-35.0); Mean Corpuscular Hemoglobin 28.9 pg (27.0-33.0); Mean Corpuscular Volume 84.5 fL (80.0-98.0); Monocytes Absolute Auto 0.5 X10*3/uL (0.1-1.2); Monocytes Percent Auto 12.5 % (2-11); Neutrophils Absolute Auto 1.8 x10*3/uL (2.0-8.3); Neutrophils Percent Auto 50.1 % (45-73); Red Cell Distribution Width 13.2 % (11.0-16.0); White Blood Count 3.6 X10*3/uL (4.8-10.8)
[2025-01-19 10:21] LABS: Platelet Count 89 X10*3/uL (160-400)
[2025-01-19 10:30] LABS: Color Urine Yellow; Glucose Urine UA Negative (Negative); Leukocyte Esterase Urine Negative (Negative); Nitrite Urine Negative (Negative); PH 5.5 (5.0-9.0); Urine Blood Negative (Negative); Urine Ketones Negative (Negative); Urine Protein Trace mg/dL (Neg-Trace)
[2025-01-19 10:32] LABS: Appearance Urine Cloudy
[2025-01-19 10:36] LABS: Alanine Aminotransferase 50 U/L (0-31); Albumin Level 3.7 g/dL (3.5-5.0); Alkaline Phosphatase 134 U/L (39-117); Anion Gap 10 (12-20); Aspartate Amino Transferase 41 U/L (5-31); Bilirubin Total 0.4 mg/dL (0.0-1.0); Blood Urea Nitrogen 13 mg/dL (9-16); Calcium 9.1 mg/dL (8.4-10.2); Carbon Dioxide 25 mmol/L (22-29); Chloride 111 mmol/L (96-108); Estimated Glomerular Filt Rate > 60; Glucose Random 140 mg/dL (60-115); Magnesium 2.1 mg/dL (1.6-2.6); Potassium 3.9 mmol/L (3.3-5.1); Sodium 142 mmol/L (135-145); Total Protein 6.7 g/dL (6.5-8.0)
[2025-01-19] MEDS: Acetaminophen 1,000 MG/100 ML PIGGYBACK 400 MG IV (11:18)
[2025-01-19] MEDS: 0.9 % Sodium Chloride 1,000 ML 999 ML IV (11:19)
[2025-01-19] MEDS: Lidocaine 4 % Patch ADH..PATCH 1 PATCH TRANSDERMA (11:19)
--- NOTE | 2025-01-19 11:42 | PC.NURSE ---
This Nurse obtained 20G IV access in Right AC, PT medicated per MAR, patient repositioned herself, lights dimmed, call villalba within reach.
[2025-01-19 12:40] VITALS: BP 186/77; PULSE 53; RESP 18; O2SAT 98
[2025-01-19 12:42] VITALS: BP 186/77; PULSE 53; RESP 18; TEMP 37.1; O2SAT 98
== END 2025-01-19 12:42 | disposition home or self-care (01) ==
PROVIDERS: Physician Assistant Medical; Emergency Provider Emergency Medicine; PCP Nurse Practitioner Primary Care
DX: M54.50 Low back pain, unspecified (principal); R10.2 Pelvic and perineal pain; E11.9 Type 2 diabetes mellitus without complications; F17.210 Nicotine dependence, cigarettes, uncomplicated; Z79.4 Long term (current) use of insulin; Z79.899 Other long term (current) drug therapy
CPT/HCPCS: 36415; 74176; 80053; 81003; 83735; 85025; 96365; 99284; J0131

== ENCOUNTER → 2025-01-19 09:27 | Outpatient (BNV) | payer MEDICAID, SELFPAY | PROVIDERS: Emergency Provider Emergency Medicine; PCP Nurse Practitioner Primary Care; Visit Provider Radiology Diagnostic Radiology | DX: N20.0 Calculus of kidney (principal) | CPT/HCPCS: 74176 ==

== ENCOUNTER 2025-01-22 13:32 | Outpatient (AMB) | payer MEDICAID, SELFPAY ==
[2025-01-22 13:54] VITALS: BP 130/68; PULSE 59; O2SAT 97; BMI 30.7
--- NOTE | 2025-01-22 13:54 | MHC.OFFVIS ---
Vital Signs 01/22/25 13:54 Height 5 ft 3 in Weight 173 lb 1.006 oz BMI 30.7 BP 130/68 Blood Pressure Location Lt brachial Position Sitting Pulse 59 Pulse Source Pulse Oximeter Pulse Oximetry (%) 97 Oxygen Delivery Method Room Air Intake Visit Reasons: Asthma Intake Note: pt is here for follow up of asthma and is feeling well today Dough Mixer Helper Required: No Allergies morphine Adverse Reaction (Verified 01/22/25 14:17) Abdominal Pain Medication List - Last Reconciled 01/22/25 by Jennifer Amaya MD albuterol sulfate 2.5 mg inhalation Q4H PRN amlodipine 10 mg PO QAM aspirin 81 mg PO QPM carvedilol 6.25 mg PO cholecalciferol (vitamin D3) (Vitamin D3) 25 mcg PO QAM cyclobenzaprine 10 mg PO TID PRN famotidine 20 mg PO TID fluticasone propionate 110 mcg/actuation 1 puff inhalation Q12H gabapentin 300 mg PO BID insulin glargine (Lantus Solostar U-100 Insulin) 60 units subcut BEDTIME insulin lispro 20 units subcut TID lidocaine 5% 2 patches topical DAILY PRN lisinopril 40 mg PO QPM loratadine (Claritin) 10 mg PO DAILY naproxen 500 mg PO BID PRN naproxen 500 mg PO BID oxycodone 5 mg PO Q8H PRN 3 days pen needle, diabetic (UltiCare Pen Needle) As directed pioglitazone 15 mg PO QAM polyethylene glycol 3350 (Miralax) 17 grams PO DAILY 1 day pyridoxine (vitamin B6) 100 mg PO QAM quetiapine 25 mg PO BID PRN quetiapine 150 mg PO BEDTIME ropinirole 0.5 mg PO BEDTIME rosuvastatin 5 mg PO BEDTIME semaglutide (Ozempic) 0.5 mg subcut MO sennosides-docusate sodium 8.6-50 mg (Senna Plus) 2 caps PO BEDTIME PRN sofosbuvir-velpatasvir 400-100 mg (Epclusa) 1 tab PO DAILY 12 weeks tamsulosin (Flomax) 0.4 mg PO BEDTIME trazodone 150 mg PO BEDTIME PRN Do you need a note to return to daycare/school/sports/work: No HPI HPI Asthma: Details: THIS 59 YEARS OLD FEMALE IS HERE FOR FOLLOW-UP FOR HER BRONCHIAL ASTHMA. IN THE LAST 4 MONTHS SHE HAS REMAINED FAIRLY STABLE WITH ONLY OCCASIONAL NEED TO USE THE RESCUE INHALER, OR THE NEBULIZER. SHE IS SMOKING ONLY ABOUT 2 CIGARETTES A DAY . DOES HAVE MILD INTERMITTENT COUGH WHICH IS MOSTLY DRY. [facility] Medical History Bilateral hand pain Disc disease, degenerative, cervical Neuropathy Somnolence, daytime Flank pain RUQ abdominal pain Left foot pain COVID-19 Hepatitis C Rheumatoid arthritis Flank pain Renal stones Bipolar disorder Panic disorder Depression Anxiety Abdominal distension (gaseous) Asthma Hyperlipidemia 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 Mother Diabetes mellitus Sister Diabetes mellitus Brother No problems noted. Paternal Uncle Colon cancer Social History Household Members: None Housing: Apartment Do you presently have visiting nurse or other home services: Yes Unable to assess alcohol history related to: Unknown Alcohol intake: current Alcohol intake frequency: former alcohol drinker Alcohol type: beer Patient Tobacco Use Status: Current everyday Tobacco user Tobacco use type: Cigarette Cigarettes Per Day: 2 Years Smoked: 15 service: No Review of Systems Const All systems reviewed & are unremarkable except as noted in HPI and below Eyes Reports no additional complaints ENT Reports no additional complaints Card Denies chest pain, Denies irregular heart rhythm and Denies leg edema Resp Reports as per HPI GI Reports dyspepsia and Reports heartburn Reports no additional complaints Musc Reports back pain Skin/Breast Reports system reviewed and no additional complaints, except as documented Neuro Reports no additional complaints Psych Reports no additional complaints Endo Reports other (IDDM ) Aller/Immun Reports no additional complaints Physical Exam Vital Signs: Last Vital Signs Pulse 59 01/22/25 13:54 BP 130/68 01/22/25 13:54 Pulse Ox 97 01/22/25 13:54 Oxygen Delivery Method Room Air 01/22/25 13:54 BMI result Body Mass Index 30.7 Const General: healthy appearing (except for being slightly over weight ), comfortable, no acute distress, alert and awake Orientation/consciousness: patient oriented x3 HEENT Head: Yes normal to inspection General nose exam: No nasal polyps present and No nasal discharge present Face and sinus: Yes sinuses nontender Mouth: oropharynx normal (Mallampatti class=3) Throat: Yes posterior oropharynx normal Eyes General: appearance normal, both eyes and all related structures Neck Neck: Yes normal visual inspection, Yes no lymphadenopathy, Yes trachea midline, Yes no JVD and Yes other (Neck circumference=15.5 ) Thyroid: Thyroid normal Chest Chest palpation & inspection: normal inspection of the chest, normal palpation of entire chest wall and no tenderness Resp Other: PERCUSSION NOTE RESONANT, HAS GOOD BREATH SOUNDS ON BOTH SIDES, EQUAL, NO WHEEZES OR CREPITATIONS Effort & Inspection: normal respiratory effort Auscultation: no crackles, no wheezes and diminished lung sounds (slightly distant ) Cardio Palpation: normal PMI Rate: regular rate Rhythm: regular rhythm Heart sounds: no gallops and no murmurs Peripheral pulses: Peripheral pulses 2+ throughout GI Palpation (GI): Soft to palpation, nontender, No hepatosplenomegaly present and no masses Auscultation: normal bowel sounds Back/Spine/Pelvis Thoracic/Lumbar Spine: thoracic and lumbar spine normal to inspection Skin General skin exam: no rashes or lesions noted Neuro General: patient oriented x3 and no focal motor deficits Cranial nerves: Yes CN's II-XII intact bilaterally Extrem General: Yes normal to inspection, Yes no clubbing, cyanosis or edema and Yes no calf tenderness Psych Appearance: grossly normal and well kempt Speech and movement: Normal speech and movement present Assessment & Plan Assessment & Plan (1) Asthma: Comment: ASTHMA /COPD, NEEDS TO HAVE PFT s TO SEE IF SHE WILL NEED SOME STRONGER AGENTS . HOWEVER PATIENT HAS NOT BEEN ABLE TO DO THE TEST . CLINICALLY SHE HAS ASTHMA/COPD, WHICH IS WELL CONTROLLED AT THIS TIME. SMOKING ONLY ABOUT 2 CIGARETTES A DAY Code(s): J45.909 - Unspecified asthma, uncomplicated Category: Medical Plan: ADVISED TO CONTINUE USING FLOVENT -110, 2 PUFFS B.I.D.. USE ALBUTEROL SOLUTION 2.5 MG IN THE NEBULIZER Q 4-6 HOURS ONLY P.R.N./ ALTERNATIVELY USE ALBUTEROL HFA 2 PUFFS Q 4-6 HOURS P.R.N. WHEN OUTDOORS. ADVISED TO STOP SMOKING COMPLETELY. Coding Level of Care Code Est Pt Level 3 (13314) Diagnoses Asthma J45.909
--- OUTSIDE RECORDS SUMMARY | 2025-01-22 16:21 | XMS_ITS | Encounter Summary ---
Author Organization [employer] Address [address] [place] [address] [address] [place] [address] Care Team Providers Care Customer Assistance Associate Name Role Phone Wanda Bonilla Primary Care Provider [phone] Rajni García RN Unavailable [phone] April Michele MD Unavailable [phone] Lee Hubbard MD Unavailable Reason for Visit * Reason Onset Date Comments Referral 08/30/2022 Encounter Details Date Type Department Care Team ([facility] st Contact Info) Description 08/30/2022 Telephone [facility] MEDICINE [address] [place], [place] [phone] Wanda Bonilla ANP [address] [place], [place] [phone] Referral Social History Tobacco Use Types Packs/Day [...] see a neurologist Please contact pt at [phone] documented in this encounter Plan of Treatment Upcoming Encounters Date Type Department Care Team (Late st Contact Info) Description 04/02/2025 2:30 PM EDT Office Visit [facility] MEDICINE [address] [place] [address] Wanda Bonilla ANP [address] [place] [address] 04/20/2025 2:30 PM EDT Office Visit [facility] OPTOMETRY [address] [place] [address] Tyler, Smiley, OD [address] [place] [address] documented as of this encounter Visit Diagnoses Not on filedocumented in this encounter Additional Health Concerns Assessment Noted Time PHQ-9 Depression Total Score: 0 08/25/19 23 1:48 PM EST documented as of this encounter Care Teams Customer Assistance Associate Relationship Specialty Start Date End Date Wanda Bonilla ANP [address] [place] [address] PCP - General Family Medicine 09/03/20 Rajni García, TIM [address] [place] [address] Internet Technology ManagerMask Layout Designer 09/18/24 12/15/24 April Michele MD [address] [place] [address] Referring Physician Infectious Diseases 10/09/24 Lee Hubbard MD [address] [place] [address] Urology 10/09/24 [facility] cardiology 11/12/23 documented as of this encounter
== END 2025-01-22 14:18 | disposition home or self-care (01) ==
LOC: HO.HPS 13:33
PROVIDERS: PCP Nurse Practitioner Primary Care; Visit Provider Internal Medicine
DX: J45.909 Unspecified asthma, uncomplicated (principal)
CPT/HCPCS: 99213

== ENCOUNTER → 2025-01-22 13:32 | Outpatient (BNVA) | payer MEDICAID, SELFPAY | PROVIDERS: PCP Nurse Practitioner Primary Care; Visit Provider Internal Medicine | DX: J44.89 Other specified chronic obstructive pulmonary disease (principal); F17.200 Nicotine dependence, unspecified, uncomplicated; J45.909 Unspecified asthma, uncomplicated; R05.9 Cough, unspecified | CPT/HCPCS: 99212 ==

== ENCOUNTER 2025-02-24 10:40 | Outpatient (AMB) | payer MEDICAID, SELFPAY ==
--- NOTE | 2025-02-24 10:46 | MHC.OFFVIS ---
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 States she is having numbness and tingling that are constant in the day. Patient reports symptoms are worse at night time and in the morning and is not able to get a good night sleep. Reports she has to leave her hand running under hot water at night time and this helps a little. EMG done in [place] was done 3-4 months ago but is not sure where it was done. 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 She complains of numbness in the median nerve distribution bilaterally, R>L. Symptoms constant, worse at night and first thing in the morning. She also has pain in her wrists from this. She also has painful locking of her right ring finger. She has a Hx of Diabetic Polyneuropathy & Cervical DDD. She follows with Pain Management for this. She has a hx of RA, Bipolar disorder, Hepatitis C, and PAD. She says she is being evaluated for a heart condition next month and is hesitant to discuss surgery until after this testing is done. [facility] Medical History Bilateral hand pain Disc disease, degenerative, cervical Neuropathy Somnolence, daytime Flank pain RUQ abdominal pain Left foot pain COVID-19 Hepatitis C Rheumatoid arthritis Flank pain Renal stones Bipolar disorder Panic disorder Depression Anxiety Abdominal distension (gaseous) Asthma Hyperlipidemia 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 Mother Diabetes mellitus Sister Diabetes mellitus Brother No problems noted. Paternal Uncle Colon cancer Social History Household Members: None Housing: Apartment Do you presently have visiting nurse or other home services: Yes Unable to assess alcohol history related to: Unknown Alcohol intake: current Alcohol intake frequency: former alcohol drinker Alcohol type: beer Patient Tobacco Use Status: Current everyday Tobacco user Tobacco use type: Cigarette Cigarettes Per Day: 2 Years Smoked: 15 service: No Review of Systems Const All systems reviewed & are unremarkable except as noted in HPI and below Physical Exam Vital Signs: BMI result Body Mass Index 30.6 Const General: cooperative, healthy appearing and no acute distress Orientation/consciousness: patient oriented x3 HEENT Head: Yes normocephalic and Yes atraumatic Eyes EOM: EOMs intact bilaterally Resp Effort & Inspection: normal respiratory effort and able to speak in complete sentences Cardio Jugular venous distension: no JVD Skin General skin exam: turgor normal Rashes: no rashes Neuro General: patient oriented x3 Extrem Other: Evaluation of Bilateral Upper Extremity: The patient is alert, oriented, and in no acute distress Neuro: Dense numbness in the median nerve distribution bilaterally. No thenar or intrinsic wasting Good APB muscle belly firing and good finger cross Vascular: Cap refill brisk ROM: She can make a fist and extend all her digits Visible & palpable locking & catching of the right ring finger Tender over the right ring finger a1 soham Skin: No lacerations or abrasions. General: No Ecchymosis. No Erythema or evidence of infection. Nerve Conduction Study: IMPRESSION: 1. This is an abnormal study. 2. There is electrodiagnostic evidence for bilateral moderate-severe median neuropathy at the wrist, consistent with carpal tunnel syndrome. 3. There is no electrodiagnostic evidence for ulnar neuropathy, brachial plexopathy, or cervical radiculopathy. 4. Absent radial sensory nerves could be consistent with underlying diabetic polyneuropathy. CLINICAL COMMENT: Known diabetic neuropathy per patient. Can send patient for bilateral lower extremity EMG for confirmation. Carina Morgan MD, ADITI 05/01/24 Psych Appearance: grossly normal Affect: normal affect Attitude: cooperative Assessment & Plan Assessment & Plan (1) Bilateral carpal tunnel syndrome: Code(s): G56.03 - Carpal tunnel syndrome, bilateral upper limbs Category: Medical (2) Trigger ring finger of right hand: Code(s): M65.341 - Trigger finger, right ring finger Category: Medical (3) Peripheral neuropathy: Code(s): G62.9 - Polyneuropathy, unspecified Category: Medical (4) Hepatitis C: Comment: She has viral load undetectable Code(s): B19.20 - Unspecified viral hepatitis C without hepatic coma Category: Medical Qualifiers: Hepatic coma status: without hepatic coma Viral hepatitis chronicity: chronic Qualified Code(s): B18.2 - Chronic viral hepatitis C (5) Diabetes mellitus, insulin dependent (IDDM), uncontrolled: Category: Medical (6) PAD (peripheral artery disease): Code(s): I73.9 - Peripheral vascular disease, unspecified Category: Medical Plan Assessment & Plan: 1. Right carpal tunnel syndrome, moderate-severe With dense numbness 2. Right ring finger trigger finger 3. Left carpal tunnel syndrome, moderate-severe With dense numbness I educated her about this condition I discussed operative and non-operative treatment options The patient would like to proceed with surgery, beginning with the right side The risks and benefits of operative treatment were discussed with the patient and the patient wishes to proceed with surgery. These risks include, but are not limited to risk of damage to blood vessels, nerves, tendons, infection, recurrence, incomplete relief of preoperative symptoms, persistent pain, possible need for further surgery and the risks associated with regional blocks and anesthesia. The plan is to take the patient to the operating room sometime in the next few weeks for the following procedures: 1. Right carpal tunnel release, under local 2. Right ring finger trigger release, under local All of the preoperative paperwork including the consent was reviewed today. All the patient's questions were answered. The patient understands that they will be contacted by our manager surgery soon to schedule this procedure She denies blood thinners, asthma, heart, lung, kidney issues She is a Diabetic with no HgA1c on file. They will need an updated HgA1c that is <8.1% in order to proceed with surgery, and they expressed understanding She has a Hx of bipolar disorder & Hepatitis C, which is now listed as undetectable Scribed for Kelsie Gates MD by Vishnu Montanez, medical records secretary, on 02/24/25 at 11:10 AM, EST. Coding Level of Care Code New Pt Level 4 (09964) Diagnoses Bilateral carpal tunnel syndrome G56.03 Trigger ring finger of right hand M65.341 Peripheral neuropathy G62.9 Chronic hepatitis C without hepatic coma B18.2 Hepatic coma status: without hepatic coma Viral hepatitis chronicity: chronic Diabetes mellitus, insulin dependent (IDDM), uncontrolled PAD (peripheral artery disease) I73.9
[2025-02-24 10:50] VITALS: BMI 30.6
--- OUTSIDE RECORDS SUMMARY | 2025-02-24 11:48 | XMS_ITS | Encounter Summary ---
Author Organization [employer] Address [address] [place] [address] 7[address] [place] [address] Care Team Providers Care Mastic Man Name Role Phone Wanda Bonilla Primary Care Provider [phone] Rajni García RN Unavailable [phone] April Michele MD Unavailable [phone] Lee Hubbard MD Unavailable Reason for Visit * Reason Onset Date Comments Referral 08/30/2022 Encounter Details Date Type Department Care Team ([facility] st Contact Info) Description 08/30/2022 Telephone [facility] MEDICINE [address] [place], [place] [phone] Wanda Bonilla ANP [address] [place], [place] [phone] Referral Social History Tobacco Use Types Packs/Day [...] see a neurologist Please contact pt at [phone] documented in this encounter Plan of Treatment Upcoming Encounters Date Type Department Care Team (Late st Contact Info) Description 04/02/2025 2:30 PM EDT Office Visit [facility] MEDICINE [address] [place] [address] Wanda Bonilla ANP [address] [place] [address] 04/20/2025 2:30 PM EDT Office Visit [facility] OPTOMETRY [address] [place] [address] Tyler, Smiley, OD [address] [place] [address] documented as of this encounter Visit Diagnoses Not on filedocumented in this encounter Additional Health Concerns Assessment Noted Time PHQ-9 Depression Total Score: 0 08/25/19 23 1:48 PM EST documented as of this encounter Care Teams Mastic Man Relationship Specialty Start Date End Date Wanda Bonilla ANP [address] [place] [address] PCP - General Family Medicine 09/03/20 Rajni García, TIM [address] [place] [address] Knife EdgerTransformation Consultant 09/18/24 12/15/24 April Michele MD [address] [place] [address] Referring Physician Infectious Diseases 10/09/24 Lee Hubbard MD [address] [place] [address] Urology 10/09/24 [facility] cardiology 11/12/23 documented as of this encounter
--- OUTSIDE RECORDS SUMMARY | 2025-02-24 11:48 | XMS_ITS | Clinical Summary ---
Author Organization [facility] Address [address] [place] [address] Phone Care Team Providers Care Emergency Management Coordinator Name Role Phone Regina Su ADRIANNE Primary Care Provider Allergies Active Allergy Reactions Criticality Noted Date [...] DM2 (diabetes mellitus, type 2) (CMS/HCC V24, S/[facility] V28) Hepatitis C Hyperlipidemia LDL goal <70 Hypertension Obesity Encounters Date Type Department Care Team Description 12/31/2024 3:15 PM EDT - 12/31/2024 11:59 PM EDT Hospital Encounter [facility] MRI [address] [place] [id number] Mass of left foot Discharge Disposition: Home or Self Care 12/23/2024 11:00 AM EDT Office Visit [facility] - [place] [address] [facility] [address] [place] [phone] Mario Robbins, DPM Mass of left foot (Primary Dx); Follow-up exam; Dermatophytosis of nail; Pain in toe of right foot; Type II diabetes mellitus with peripheral circulatory disorder ([facility] V24, [facility] V28); Diabetic mononeuropathy simplex ([facility] V24, [facility] V28); Pain in toe of left foot from Last 3 Months Social History Tobacco [...] - - Weight 79.4 kg (175 lb) 12/31/2024 4:39 PM EDT Height 160 cm (5' 2.99 ) 12/23/2024 10:48 AM EDT Body Mass Index 31.01 12/23/2024 10:48 AM EDT Plan of Treatment Health Maintenance Due Date Last Done Comments [...] COVID-19 Vaccine ( season) 2024 12/29/2020, 12/01/2020 Colorectal Cancer Screening: Colonoscopy 06/13/2024 Hepatitis C Screening 06/13/2024 Social Influencers of Health Screening 06/13/2024 Diabetes: Annual Urine Albumin-Creatinine Ratio (uACR) 07/11/2024 Depression Screening 07/30/2024 Influenza Vaccine (#1) 2025 05/13/2018, 2016 Diabetes: Blood Sugar Control Test (HGBA1C) 06/27/2025 12/25/2024, 09/23/2024, 06/05/2024 Diabetes: Annual GFR (Glomerular Filtration Rate) 10/20/2025 10/20/2024, 09/01/2024 Hypertension/CHF/CAD Annual BMP Blood Test 10/20/2025 10/20/2024, 09/01/2024 Cervical Cancer Screening: Pap Smear 06/17/2027 [...] Procedure Name Priority Date/Time Associated Diagnosis Comments MR FOOT WO AND W CONTRAST LEFT Routine 12/31/2024 6:37 PM EDT Mass of left foot XR FOOT 3+ VIEWS LEFT Routine 12/23/2024 11:14 AM EDT Follow-up exam from Last 3 Months Results * MR Foot wo and w Contrast Left (12/31/2024 6:37 PM EDT) Anatomical Region Laterality Modality Lower Extremities, Foot Left Magnetic Resonance 01/01/2025 3:23 AM EDT Impressions 01/01/2025 3:40 AM EDT 15 x 7 mm lipoma along the heel. -------- FINAL REPORT -------- Dictated By: Chanelle Mccoy Dictated Date: 01/01/2025 03:23 ET Assigned Physician: Chanelle Mccoy Reviewed and Electronically Signed By: Chanelle Mccoy Signed Date: 01/01/2025 03:40 ET Workstation ID: [id number] Transcribed By: Self Edit Transcribed Date: 01/01/2025 03:23 ET Narrative 01/01/2025 3:40 AM EDT INDICATION: mass left heel COMPARISON: None TECHNIQUE: Multiplanar, multisequence MRI was performed of the left foot without and after the uneventful intravenous contrast administration of 15 mL Dotarem. FINDINGS: Bone: No acute fracture or dislocation. After intravenous contrast administration, patchy areas of heterogeneous foci of enhancement within the bone marrow. No osteochondral lesion. Small posterior plantar calcaneal spur. Soft Tissues: Along the heel, fat-containing lesion measuring approximately 15 x 7 mm which does not demonstrate any nodular or masslike enhancement after intravenous contrast administration. Left ankle joint fluid. Procedure Note Chanelle Mccoy MD - 01/01/2025 INDICATION: mass left heel COMPARISON: None TECHNIQUE: Multiplanar, multisequence MRI was performed of the left footwithout and after the uneventful intravenous contrast administration of 15mL Dotarem. FINDINGS: Bone: No acute fracture or dislocation. After intravenous contrastadministration, patchy areas of heterogeneous foci of enhancement withinthe bone marrow. No osteochondral lesion. Small posterior plantarcalcaneal spur. Soft Tissues: Along the heel, fat-containing lesion measuringapproximately 15 x 7 mm which does not demonstrate any nodular or masslikeenhancement after intravenous contrast administration. Left ankle jointfluid. IMPRESSION: 15 x 7 mm lipoma along the heel. -------- FINAL REPORT -------- Dictated By: Chanelle Mccoy Dictated Date: 01/01/2025 03:23 ET Assigned Physician: Chanelle Mccoy Reviewed and Electronically Signed By: Chanelle Mccoy Signed Date: 01/01/2025 03:40 ET Workstation ID: [id number] Transcribed By: Self Edit Transcribed Date: 01/01/2025 03:23 ET Mario Robbins DPM IM MRI PROCEDURES Final Result * XR Foot 3+ Views Left (12/23/2024 11:14 AM EDT) Anatomical Region Laterality Modality Lower Extremities, Foot Left Computed Radiography Narrative 12/23/2024 12:05 PM EDT Left foot 3 views No osseous erosions of the left heel normal. Radiographs Mario Robbins DPM [facility] XR PROCEDURES Final R esult from Last 3 Months Insurance MEDICAID - [place] Care Teams Emergency Management Coordinator Relationship Specialty Start Date End Date Regina Su FNP [address] [place] [address] PCP - General Nurse Practitioner 07/11/24
== END 2025-02-24 12:16 | disposition home or self-care (01) ==
LOC: HO.HOS 10:41
PROVIDERS: PCP Nurse Practitioner Primary Care; Visit Provider Orthopaedic Surgery
DX: G56.03 Carpal tunnel syndrome, bilateral upper limbs (principal); M65.341 Trigger finger, right ring finger; G62.9 Polyneuropathy, unspecified; B18.2 Chronic viral hepatitis C; I73.9 Peripheral vascular disease, unspecified
CPT/HCPCS: 99204

== ENCOUNTER → 2025-02-24 10:40 | Outpatient (BNVA) | payer MEDICAID, SELFPAY | PROVIDERS: PCP Nurse Practitioner Primary Care; Visit Provider Orthopaedic Surgery | DX: G56.03 Carpal tunnel syndrome, bilateral upper limbs (principal); M65.341 Trigger finger, right ring finger; G62.9 Polyneuropathy, unspecified; I73.9 Peripheral vascular disease, unspecified; B18.2 Chronic viral hepatitis C; E11.9 Type 2 diabetes mellitus without complications | CPT/HCPCS: 99202 ==

== ENCOUNTER 2025-03-19 10:29 | Outpatient (AMB) | payer MEDICAID, SELFPAY ==
[2025-03-19 10:59] VITALS: BP 156/81; PULSE 51; O2SAT 98; BMI 30.5
--- NOTE | 2025-03-19 10:59 | MHC.OFFVIS ---
Vital Signs 03/19/25 10:59 Height 5 ft 3 in Weight 172 lb BMI 30.5 BP 156/81 H Blood Pressure Location Lt brachial Position Sitting Pulse 51 Pulse Oximetry (%) 98 Oxygen Delivery Method Room Air Intake Visit Reasons: 4 mo f/u r/s 12/25/24 Intake Note: Patient follow up for Cirrhosis, US/CT and Cologuard results. Patient cc: abdominal burning sensation, pain on her intestine when she is doing BM and also she can not stop doing BM, acid reflux, and denies any other GI issues. Rn Sexual Assault Required: No Accompanied by: Self / Same As Patient Allergies morphine Adverse Reaction (Verified 09/10/25 09:00) Abdominal Pain Medication List - Last Reconciled 03/19/25 by Ashlie Maldonado MD albuterol sulfate 2.5 mg inhalation Q4H PRN amlodipine 10 mg PO QAM aspirin 81 mg PO QPM carvedilol 6.25 mg PO cholecalciferol (vitamin D3) (Vitamin D3) 25 mcg PO QAM cyclobenzaprine 10 mg PO TID PRN famotidine 20 mg PO TID fluticasone propionate 110 mcg/actuation 1 puff inhalation Q12H gabapentin 300 mg PO BID insulin glargine (Lantus Solostar U-100 Insulin) 60 units subcut BEDTIME insulin lispro 20 units subcut TID lidocaine 5% 2 patches topical DAILY PRN lisinopril 40 mg PO QPM loratadine (Claritin) 10 mg PO DAILY naproxen 500 mg PO BID oxycodone 5 mg PO Q8H PRN 3 days pen needle, diabetic (UltiCare Pen Needle) As directed pioglitazone 15 mg PO QAM polyethylene glycol 3350 (Miralax) 17 grams PO DAILY 1 day pyridoxine (vitamin B6) 100 mg PO QAM quetiapine 25 mg PO BID PRN quetiapine 150 mg PO BEDTIME ropinirole 0.5 mg PO BEDTIME rosuvastatin 5 mg PO BEDTIME semaglutide (Ozempic) 0.5 mg subcut MO sennosides-docusate sodium 8.6-50 mg (Senna Plus) 2 caps PO BEDTIME PRN sofosbuvir-velpatasvir 400-100 mg (Epclusa) 1 tab PO DAILY 12 weeks tamsulosin (Flomax) 0.4 mg PO BEDTIME trazodone 150 mg PO BEDTIME PRN HPI HPI 4 mo f/u r/s 12/25/24: Details: 59 year old [place] speaking F (refuses deportation examiner)for FU of 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 12/01/22 patient reports she started taking the Mavyret on November 06 and d/c'd it on November 13 due to throbbing headaches she was constantly getting. patient reports that she was advised to continue taking medication and that headache would subside. patient reports that this was not the case. patient reports that she was taking Tylenol 650mg and there was no improvement. she states that she cannot take too much Tylenol due to her Cirrhosis. Patient states she was awaiting appointment to further discuss and receive your recommendation/suggestions. patient also reported fatigue, and trouble sleeping. [place]IS[place] [facility] [place] [employer], Patient reports abdominal burning sensation, pain during a BM and also she can not stop doing BM, acid reflux, Complains of abdominal pain with burning sensation and bloating Feels better after she has a BM If no BM x 3 days, she takes a medication Denies heartburn or dysphagia Did not complete Hep C treatment ? due to cardiac problems Had Cardiology evaluation and my heart is good PAST VISITS: Intermittent abdominal pain - when she eats foods that she is not supposed to eat. Pt is waiting to start Epclusa for Hep C - prescribed by Dr Harding Concerned about taking the prep for the colon - advised to have a Cologuard test instead. Not doing too good - burning in the opening of the stomach. Complains of RUQ pain. Prescribed Famotidine which has been helping Takes it in the morning and the afternoon when she notes burning in the stomach - does not take it every day Pain improves after she has a BM She takes a medication if no BM x 3 days. Pt tearful due to abdominal pain - 04/08 RUQ pain radiating down into the bladder. Complains of pain and pressure when she urinates - hx of urinary obstruction due to renal stones. Pt complains of pain since she had a cystoscopy in 05/21. PAST VISITS: Took Mavyret for 1 week and stopped due to persistent GOMEZ's Has a hx of HAs before starting Mavyret. GOMEZ got worse after she started the Mavyret. Usually has HAs at night when she is trying to go to sleep. Takes Tyelenol with partial improvement. Wakes up with GOMEZ the following day. Takes a shower and the GOMEZ goes away. Denies dysphagia to food Takes Esomeprazole twice daily. Pt is being scheduled in [place] for a breast bx due to bleeding from the rt nipple. Denies any change in GI symptoms Continues to have burning, bloating, constipation and diarrhea Complains of RUQ pain radiating to the back. Pain is constant and takes tylenol. Notes intermittent diarrhea - usually once a week. Hx of PUD.? No ulcer on FU EGD. Complains of difficulty urinating and advised to schedule a FU appt with Dr Hubbard Complains of right flank pain for the past 4 to 5 days radiating anteriorly - has a hx of renal stones and was advised to FU with Urology. Intermittent abdominal bloating. Has a BM daily and notes occasional diarrhea Scheduled for an EGD in 07/19 and did not come for the appt since she was not feeling good. She would like to reschedule. Pt was seen by Dr Michele (ID) for Hepatitis C and she was prescribed Mavyret x 8 weeks Pt states she unable to start treatment since ? medication was not covered. She will fax the letter from her Insurance to the GI clinic Noted GOMEZ and diarrhea after she was prescribed medications for DM. Diagnosed with Hepatitis C ? 10 yrs ago. Denies IVDA.? Had blood transfusion several yrs ago. Intermittent fatigue and GOMEZ. Patient denies symptoms of heartburn, dysphagia, nausea, vomiting, change in appetite.? Weight fluctuates. Chronic constipation and diet related diarrhea. Denies recent change in bowel habits, black stools or rectal bleeding. Patient denies major cardiac or pulmonary problems, loud snoring or sleep apnea Denies problems with anesthesia in the past. Denies being on chronic anticoagulation. Patient denies known family history of liver disease, colon polyps, or other GI malignancies. Paternal uncle had colon cancer and of the disease. PAST EGD/COLONOSCOPY:? EGD a long time ago showed stomach ulcers. Never had a colonoscopy. PAST GI HISTORY BY REVIEW OF MEDICAL RECORDS: 04/2018 Pt was seen in the GI clinic by QUENTIN Branch: 53 yo female returns for a scheduled office visit for cirrhosis and hepatitis? C.? corporate training manager Ingrid Miller interprets for todays'? visit.? Patient has been seen in the past for treatment of hepatitis C? but was inconsistent in keeping appointments and never received treatment. She? had been scheduled for an EGD in 2016 but study was cancelled due to blood? sugars too high. Has not been seen since 2016. Patient comes today as? she is asking for an EGD and colonoscopy to be performed. States that the clinic? she attends has ordered Harvoni to treat her Hepatitis C but patient requests? that the EGD be performed before she starts the treatment. States that she's had? an ulcer in the past and wants to make sure her stomach was ok. Additionally she? states that she hasn't had a colonoscopy and would like that to be performed? before starting treatment. Patient states that she was recently seen? in the ER for back pain and was told that she had a pinched nerve. Reviewing the? CT notes that she had diverculosis and two kidney stones- a 2 and a 3mm on the right and an 8mm? on the left. The Ct? also noted that the surface of her liver was c/w cirrhosis. Is aware that she? needs a repeat diagnostic study every 6 months for HCC surveillance. Liver labs? reveal AST 41, ALT 54, GGT 55, alk phos 155. Her WBC count was at 17 and there was blood in her urine. States that she moves her bowels nearly? every day but does have intermittent straining and will have blood on the? tissue. No previous colonoscopy. No family h/o colon cancer. Patient? is diabetic and states that she lost a lot of weight and remarks that her? diabetes is better controlled. 1.?Cirrhosis of liver without ascites, unspecified hepatic cirrhosis? type?Notes: Patient has cirrhosis- most likely from Hep C. Is aware? that she will need q6 months HCC surveillance.?? 2.?H/O gastric ulcer?Notes: Patient has a h/o gastric ulcer? in 2000- is concerned that she wants to make sure her stomach is healthy before? starting Harvoni. Will schedule an?EGD IMAGING STUDIES:? 08/30/23 ABD US SHOWED: Findings consistent with hepatic cirrhosis with elevated portal pressures and varices. No focal hepatic mass identified. Left pleural effusion. 07/2022 ABD US SHOWED: 1.? Cirrhotic liver with borderline splenomegaly. 2.? Nonobstructive left renal calculi. 3.? Nonobstructive right renal calculi versus vascular calcifications. 4.? Status post cholecystectomy. 10/27/20 ABD US SHOWED:Three echogenic nonobstructive stones left kidney.Hepatic steatosis with nodular appearance and mild hepatomegaly most suggestive of cirrhosis. Similar findings were seen on the previous ultrasound exam 12/10/2013. ENDOSCOPIC STUDIES:?05/05/22 EGD SHOWED: ESOPHAGUS: GE junction at 36 cms. No varices, esophagitis or Harrison's. STOMACH:? Mild portal gastropathy and antral erythema. Biopsies were obtained. No gastric varices and grade 2 flap valve on retroflexed examination of the cardia. DUODENUM: A diverticulum seen in the medial wall of the bulb. Normal descending duodenum - biopsies were obtained to check for celiac sprue. Plan:? Patient has an appointment on 07/27/22 in the GI Clinic with? Ashlie Maldonado M.D. BIOPSES SHOWED: A.? Small bowel, biopsy:? Small intestinal mucosa with focal mildly increased intraepithelial lymphocytes and preserved villous architecture.? See comment. B.? Stomach, antrum, biopsy:? Antral-type and oxyntic mucosa with moderate chronic, focally active, inflammation and focal intestinal metaplasia; no dysplasia identified; no Helicobacter organisms seen. COMMENT: The findings in the duodenum are non-specific.? The differential diagnosis is broad and includes infection (e.g. viral or H. pylori), medication/drugs (e.g. NSAIDs), gluten sensitivity/celiac disease, bacterial overgrowth, tropical sprue, immunodeficiency syndromes (e.g. IgA deficiency, CVID), autoimmune enteropathy, Crohns and collagen vascular disease, among others.? Please correlate with clinical and other laboratory findings [facility] Medical History Bilateral hand pain Disc disease, degenerative, cervical Neuropathy Somnolence, daytime Flank pain RUQ abdominal pain Left foot pain COVID-19 Hepatitis C Rheumatoid arthritis Flank pain Renal stones Bipolar disorder Panic disorder Depression Anxiety Abdominal distension (gaseous) Asthma Hyperlipidemia 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 Mother Diabetes mellitus Sister Diabetes mellitus Brother No problems noted. Paternal Uncle Colon cancer Social History Household Members: None Housing: Apartment Do you presently have visiting nurse or other home services: Yes Alcohol intake: current Alcohol intake frequency: former alcohol drinker Alcohol type: beer Patient Tobacco Use Status: Former Tobacco user Tobacco use type: Cigarette Cigarettes Per Day: 2 Years Smoked: 15 service: No Review of Systems Const All systems reviewed & are unremarkable except as noted in HPI and below Physical Exam Vital Signs: Last Vital Signs Pulse 51 03/19/25 10:59 BP 156/81 H 03/19/25 10:59 Pulse Ox 98 03/19/25 10:59 Oxygen Delivery Method Room Air 03/19/25 10:59 BMI result Body Mass Index 30.5 Const General: healthy appearing and no acute distress Nutritional Appearance: obese Orientation/consciousness: patient oriented x3 Limitations: language barrier HEENT Head: Yes normal to inspection Ears: hearing grossly normal bilaterally Eyes Sclerae: sclerae normal Pupils: Equal, round and reactive pupils present Neck Neck: Yes normal visual inspection Chest Chest palpation & inspection: normal inspection of the chest Resp Effort & Inspection: normal respiratory effort Auscultation: clear to auscultation bilaterally Cardio Palpation: normal PMI Rate: regular rate Rhythm: regular rhythm Heart sounds: S1 normal heart sound present, S2 normal heart sound present and no murmurs GI Palpation (GI): Soft to palpation, nontender and No hepatosplenomegaly present Auscultation: normal bowel sounds Rectal Exam - Female: deferred Skin General skin exam: no rashes or lesions noted Neuro General: patient oriented x3, gait normal and moves all extremities Cranial nerves: Yes Equal, round and reactive pupils present Psych Appearance: grossly normal Mental Status: mental status grossly normal Assessment & Plan Assessment & Plan (1) Hepatitis C: Comment: She has viral load undetectable Code(s): B19.20 - Unspecified viral hepatitis C without hepatic coma Category: Medical Qualifiers: Hepatic coma status: without hepatic coma Viral hepatitis chronicity: chronic Qualified Code(s): B18.2 - Chronic viral hepatitis C (2) Cirrhosis: Code(s): K74.60 - Unspecified cirrhosis of liver Category: Medical Qualifiers: Ascites presence: without ascites Hepatic cirrhosis type: unspecified hepatic cirrhosis Qualified Code(s): K74.60 - Unspecified cirrhosis of liver Plan 59 YF with asthma, Htn, DM followed in GI for cirrhosis complicated by mild thrombocytopenia (Liver Fibrosis score 0.73, Liver Fibrosis stage F3- F4) due to hepatitis-C infection (possibly acquired by a blood transfusion several yrs ago). Patient denies having a colonoscopy in the past. Patient has not had treatment for hepatitis-C since she has trouble swallowing pills. On 12/01/22 @ 13:29 Sarah Haddad Wrote To Ashlie Maldonado telephone call was placed to patient to inquire about below. patient reports she started taking the Mavyret on November 06 and d/c'd it on November 13 due to throbbing headaches she was constantly getting. patient reports that she was advised to continue taking medication and that headache would subside. patient reports that this was not the case. patient reports that she was taking Tylenol 650mg and there was no improvement. she states that she cannot take too much Tylenol due to her Cirrhosis. patient states she was awaiting appointment to further discuss and receive your recommendation/suggestions. patient also reported fatigue, and trouble sleeping. 05/05/22 EGD was performed (FU of PUD) and findings as noted above Pt was seen by Dr Michele (ID) for Hepatitis C and she was prescribed Mavyret x 8 weeks Pt states she unable to start treatment since she is unable to swallow large pills/ ? medication was not covered. (Checked with [facility] - Mavyret is available in pellet form containing Glecaprevir 50 mg and pibrentasvir 20 mg Pt can mix with peanut butter or georgian yogurt - she will need to take 6 packets daily. New prescription was sent for Mavyret. REDUCING THE RISK OF LIVER PROGRESSION:? patient was advised to completely avoid use of alcohol and lose weight. ?HCC SURVEILLANCE: ? the patient is at risk of developing hepatocellular carcinoma given the presence of cirrhosis and need 6 monthly imaging surveillance with either abdominal ultrasound (US) or multiphase cross-sectional imaging (CT or MRI).? Last Abd CT SCAN in 12/2021 and abd US in Jul, 2022 had shown no focal liver lesions suspicious of HCC.? SURVEILLANCE FOR GASTROESOPHAGEAL VARICES: No varices noted on EGD in 04/2022 and 2023. QUESTION OF LIVER TRANSPLANTATION: ? As she has never had any hepatic decompensation, and continues to have good hepatic synthetic function with meld score of 7, liver transplantation does not need to be considered at this time. 11/01/23 Not doing too good - burning in the opening of the stomach and RUQ pain. Prescribed Famotidine which has been helping - does not take it every day Pt? will be scheduled for a colonoscopy for colon cancer screening - scheduled 02/15/24 EGD showed gastritis, no esophageal varices and a large duodenal diverticulum. Pt did not want same day colon 08/07/24 Intermittent abdominal pain - when she eats foods that she is not supposed to eat. waiting to start Epclusa for Hep C - prescribed by Dr Harding Concerned about taking the prep for the colon - advised to have a Cologuard test instead. Pt advised to check a stool cologard and schedule an abd US for Fu of cirrhosis 03/19/25 Complains of abdominal pain with burning sensation and bloating If no BM x 3 days, she takes a medication Did not complete Hep C treatment ? due to cardiac problems Pt advised to check labs and abd US FU in 4 months Orders: Orders Hepatitis C Viral Load 03/19/25 B18.2 - Chronic viral hepatitis C US abdomen limited 03/19/25 K74.60 - Unspecified cirrhosis of liver Complete Blood Count no Diff 03/19/25 K74.60 - Unspecified cirrhosis of liver Alpha Fetoprotein 03/19/25 K74.60 - Unspecified cirrhosis of liver Coding Level of Care Code Est Pt Level 4 (23880) Diagnoses Chronic hepatitis C without hepatic coma B18.2 Hepatic coma status: without hepatic coma Viral hepatitis chronicity: chronic Cirrhosis of liver without ascites, unspecified hepatic cirrhosis type K74.60 Ascites presence: without ascites Hepatic cirrhosis type: unspecified hepatic cirrhosis Time Spent (min) 24
--- OUTSIDE RECORDS SUMMARY | 2025-03-19 12:00 | XMS_ITS | Clinical Summary ---
Author Organization [facility] Address [address] [place] [address] Phone Care Team Providers Care Associate Professor Of Literature Name Role Phone Regina Su ADRIANNE Primary [...] DM2 (diabetes mellitus, type 2) (CMS/HCC V24, S/[facility] V28) Hepatitis C Hyperlipidemia LDL goal <70 Hypertension Obesity Encounters Date Type Department Care Team Description 12/31/2024 3:15 PM EDT - 12/31/2024 11:59 PM EDT Hospital Encounter [facility] MRI [address] [place] [id number] Mass of left foot Discharge Disposition: Home or Self Care 12/23/2024 11:00 AM EDT Office Visit Orthopedic Surgery - [place] [address] [facility] [address] [place] [id number] Mario Robbins, DPM Mass of left foot (Primary Dx); Follow-up exam; Dermatophytosis of nail; Pain in toe of right foot; Type II diabetes mellitus with peripheral circulatory disorder ([facility] V24, [facility] V28); Diabetic mononeuropathy simplex ([facility] V24, [facility] V28); Pain in toe of left foot [...] Signed Date: 01/01/2025 03:40 ET Workstation ID: [id number] Transcribed By: Self Edit Transcribed Date: 01/01/2025 [...] Signed Date: 01/01/2025 03:40 ET Workstation ID: [id number] Transcribed By: Self Edit Transcribed Date: 01/01/2025 [...] Months Insurance MEDICA[place] - [place] Care Teams Associate Professor Of Literature Relationship Specialty Start Date End Date Regnia Su FNP [address] [place] [address] PCP - General Nurse Practitioner 07/11/24
--- OUTSIDE RECORDS SUMMARY | 2025-03-19 12:00 | XMS_ITS | Encounter Summary ---
Author Organization [employer] Address [address] [place] [address] [address] [place] [address] Care Team Providers Care Vp Director Of Creative Strategy Name Role Phone Wanda Bonilla Primary Care Provider [phone] Rajni García RN Unavailable [phone] April Michele MD Unavailable [phone] Lee Hubbard MD Unavailable Reason for Visit * Reason Onset Date Comments Referral 08/30/2022 Encounter Details Date Type Department Care Team ([facility] st Contact Info) Description 08/30/2022 Telephone [facility] MEDIC[facility] [address] [place], [place] [phone] Wanda Bonilla ANP [address] [place], [place] [phone] Referral Social History Tobacco Use Types Packs/Day [...] see a neurologist Please contact pt at [phone] documented in this encounter Plan of Treatment Upcoming Encounters Date Type Department Care Team (Late st Contact Info) Description 04/02/2025 2:30 PM EDT Office Visit [facility] [address] [place] [address] Wanda Bonilla ANP [address] [place] [address] 04/20/2025 2:30 PM EDT Office Visit [facility] OPTOMETRY [address] [place] [address] Tyler, Smiley, OD [address] [place] [address] documented as of this encounter Visit Diagnoses Not on filedocumented in this encounter Additional Health Concerns Assessment Noted Time PHQ-9 Depression Total Score: 0 08/25/19 23 1:48 PM EST documented as of this encounter Care Teams Vp Director Of Creative Strategy Relationship Specialty Start Date End Date Wanda Bonilla ANP [address] [place] [address] PCP - General Family Medicine 09/03/20 Rajni García, TIM [address] [place] [address] Director [employer] Account Coordinator 09/18/24 12/15/24 April Michele MD [address] [place] [address] Referring Physician Infectious Diseases 10/09/24 Lee Hubbard MD [address] [place] [address] Urology 10/09/24 [facility] cardiology 11/12/23 documented as of this encounter
== END 2025-03-19 11:32 | disposition home or self-care (01) ==
LOC: HO.HGI 10:30
PROVIDERS: PCP Nurse Practitioner Primary Care; Visit Provider Internal Medicine Gastroenterology
DX: B18.2 Chronic viral hepatitis C (principal); K74.60 Unspecified cirrhosis of liver
CPT/HCPCS: 99499

== ENCOUNTER 2025-03-19 10:29 | Outpatient (REF) | payer MEDICAID, SELFPAY ==
[2025-03-19 12:56] LABS: Hematocrit 35.6 % (37.0-47.0); Hemoglobin 11.8 g/dl (12.0-16.0); Mean Corpuscular HGB Conc 33.1 g/dl (31.0-35.0); Mean Corpuscular Hemoglobin 28.7 pg (27.0-33.0); Mean Corpuscular Volume 86.6 fL (80.0-98.0); NRBC Abs Auto 0.000 X10*3/uL (0.0-0.012); NRBC Pct Auto 0.0 /100WBC (0.0-0.2); Red Blood Count 4.11 X10*6/uL (4.20-5.50); White Blood Count 4.5 X10*3/uL (4.8-10.8)
[2025-03-19 12:58] LABS: Platelet Count 96 X10*3/uL (160-400)
[2025-03-20 14:58] LABS: HCV Log PCR 6.20 Log IU/mL (NOT DETECTED); HepC Viral Load 1570000 IU/mL (NOT DETECTED)
== END 2025-03-19 10:30 | disposition home or self-care (01) ==
LOC: HO.LAB 10:29
PROVIDERS: PCP Nurse Practitioner Primary Care; Visit Provider Internal Medicine Gastroenterology
DX: B18.2 Chronic viral hepatitis C (principal); K74.60 Unspecified cirrhosis of liver; Z79.4 Long term (current) use of insulin; Z79.82 Long term (current) use of aspirin; Z79.899 Other long term (current) drug therapy; Z79.51 Long term (current) use of inhaled steroids; Z11.59 Encounter for screening for other viral diseases
CPT/HCPCS: 36415; 82105; 85027; 87522

== ENCOUNTER 2025-03-26 13:47 | Outpatient (AMB) | payer MEDICAID, SELFPAY ==
--- NOTE | 2025-03-26 13:50 | MHC.OFFVIS ---
Intake Visit Reasons: 3 Month f/u Intake Note: Patient is present for: 3mo follow up Urology Medication:VITAMIN B6, tamsulosin Blood Thinner:ASPIRIN Postal Service Clerk Required: Yes Accompanied by: Self / Same As Patient Allergies morphine Adverse Reaction (Verified 03/26/25 13:51) Abdominal Pain HPI Comments Details: 03/26/2025--Tank is here for follow-up. I have reviewed recent CT imaging 01/19/25--3 mm left kidney lower pole nonobstructing stone. The patient complains of lower back pain and right-sided pain. I have discussed that this is unrelated to the left nonobstructing kidney stone. She will follow-up with her PCP regarding these symptoms. We will continue to monitor left kidney stone. Follow-up in 8 months renal ultrasound prior. 12/25/24-- Tank is a 59-year-old female who has been followed for kidney stones she is here in follow-up. She had a CT scan which notes persistent 3 mm stone in the left kidney. The patient is a 59-year-old female presenting with nephrolithiasis and hematuria. She has a history of kidney stones, with a recent CT scan confirming a 3 mm stone in the left kidney. The patient reports blood in her urine for a few days and significant back and left flank pain. She was informed previously that there was no urinary infection. No blood was noted in the urine sample provided earlier in the day. Results - CT scan: Persistent 3 mm stone in the left kidney Plan - Flomax for stone passage and Naproxen for pain. - Monitor for changes in symptoms and report any increased pain or difficulty urinating. - Provide a urine sample today before leaving for further analysis. - Follow up in a few months to reassess condition. 06/20/24--Tank is a 59-year-old female patient who presents to the clinic for follow-up of kidney stones. She was treated with Left ESWL last year. She was in the ED on 05/20/24--for abdominal and back pain, ovarian cyst was discussed with the patient at that time as well. Currently she is asymptomatic. 05/20/24--CTAP--report stated Left lower pole 3 mm nonobstructing renal calculus. However in review of imaging --- Review of imaging 05/20/2024--2 stones visualized in the left kidney about 4 mm upper pole and 3 mm lower pole. Discussed treatment options to include repeat ESWL versus ureteroscopy and laser lithotripsy. The patient would like to proceed with repeat ESWL at this time. Review of chart 07/13/23--Telehealth visit - I have reviewed renal and bladder US results, she was passing left kidney stone fragments, discussed left hydronephrosis is resolved, and fragments passed. 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 emergency medical technician basic present. s/p Left ESWL on 05/02/23 Results: Abdomen USG results reviewed--08/29/2022- Suggestive of nonobstructive left renal calculi and nonobstructive renal calculi largest measuring 0.3 cm. CAT scan results reviewed--01/12/2022- Showed left lower pole stone 1 cm and bilateral punctuate stones. Evaluation today: Urine blood-0 Chris/uL, Leukocyte Esterase-0 Cailin/uL PFSH Medical History Bilateral hand pain Disc disease, degenerative, cervical Neuropathy Somnolence, daytime Flank pain RUQ abdominal pain Left foot pain COVID-19 Hepatitis C Rheumatoid arthritis Flank pain Renal stones Bipolar disorder Panic disorder Depression Anxiety Abdominal distension (gaseous) Asthma Hyperlipidemia 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 Mother Diabetes mellitus Sister Diabetes mellitus Brother No problems noted. Paternal Uncle Colon cancer Social History Household Members: None Housing: Apartment Do you presently have visiting nurse or other home services: Yes Unable to assess alcohol history related to: Unknown Alcohol intake: current Alcohol intake frequency: former alcohol drinker Alcohol type: beer Patient Tobacco Use Status: Current everyday Tobacco user Tobacco use type: Cigarette Cigarettes Per Day: 2 Years Smoked: 15 service: No Review of Systems Const All systems reviewed & are unremarkable except as noted in HPI and below Reports no additional complaints Eyes Reports no additional complaints ENT Reports no additional complaints Card Reports no additional complaints Resp Reports no additional complaints GI Reports no additional complaints Reports as per HPI Musc Reports no additional complaints Skin/Breast Reports system reviewed and no additional complaints, except as documented Neuro Reports no additional complaints Psych Reports no additional complaints Endo Reports no additional complaints Ayden/Lymph Reports no additional complaints Aller/Immun Reports no additional complaints Results AMB Urinalysis, Automated UA Leukoctes 15 Cailin/uL Last Edit by GABY Vazquez on 03/26/25 14:38 UA Nitrite Negative Last Edit by GABY Vazquez on 03/26/25 14:38 UA Urobilinogen 3.5 mg/dL Last Edit by GABY Vazquez on 03/26/25 14:38 UA Protein 3 mg/dL Last Edit by Nellie Soares CCM on 03/26/25 14:38 UA pH 5.0 Last Edit by Nellie Soares CCM on 03/26/25 14:38 UA Blood 0 Chris/uL Last Edit by GABY Vazquez on 03/26/25 14:38 UA Specific Sutton 1.025 Last Edit by GABY Vazquez on 03/26/25 14:38 UA Ketone Negative Last Edit by GABY Vazquez on 03/26/25 14:38 UA Bilirubin 0 mg/dL Last Edit by GABY Vazquez on 03/26/25 14:38 UA Glucose 0 mg/dL Last Edit by Nellie Soares CCM on 03/26/25 14:38 Results Reviewed Results Reviewed: Laboratory Last Values Urine pH (Auto) 5.0 03/26/25 14:37 Specific Sutton (Auto) 1.025 03/26/25 14:37 Urine Protein (Auto) 3 mg/dL 03/26/25 14:37 Glucose (UA)(Auto) 0 mg/dL 03/26/25 14:37 Urine Ketones (Auto) Negative 03/26/25 14:37 Urine Blood (Auto) 0 Chris/uL 03/26/25 14:37 Urine Nitrite (Auto) Negative 03/26/25 14:37 Urine Bilirubin (Auto) 0 mg/dL 03/26/25 14:37 Urine Urobilinogen (Auto) 3.5 mg/dL 03/26/25 14:37 Leukocyte Esterase (Auto) 15 Cailin/uL 03/26/25 14:37 Date of Service: 01/19/25 EXAMINATION: CT ABDOMEN PELVIS WITHOUT IV CONTRAST HISTORY: right flank pain rad to groin COMPARISON: Comparison is made with the prior examination dated 10/20/2024. TECHNIQUE: CT scan of the abdomen and pelvis was performed without contrast using standard departmental protocol. Coronal and sagittal reformatted images were generated and reviewed. Oral contrast material was not administered per department protocol. This CT exam was performed with one or more of the following dose reduction techniques: automated exposure control, adjustment of the mA and/or kV according to patient size, use of iterative reconstruction technique. DLP: 517 mGy-cm FINDINGS: LOWER CHEST: The visualized lung bases are clear. There is no pleural effusion. CARDIOVASCULATURE: The heart is normal in size. There is no pericardial effusion. LIVER: The liver again demonstrates a nodular contour, consistent with cirrhosis. There is a recannulized paraumbilical vein. Evaluation for masses is limited by lack of intravenous contrast material. GALLBLADDER / BILE DUCTS: The gallbladder is surgically absent. There is no intra or extrahepatic biliary ductal dilatation. SPLEEN: Spleen is enlarged. PANCREAS: The pancreas has an unremarkable unenhanced appearance. ADRENAL GLANDS: Unremarkable. KIDNEYS/RETROPERITONEUM: Again seen is a 3 mm nonobstructing calculus at the lower pole of the left kidney. No right renal calculi are identified. There is no hydronephrosis or hydroureter. No ureteral calculi are identified.. LYMPH NODES: No retroperitoneal lymphadenopathy is identified in the abdomen or pelvis. VASCULATURE: The abdominal aorta demonstrates atherosclerotic calcification, but is normal in caliber. MESENTERY/PERITONEUM: No free fluid. No masses. There is no free intraperitoneal gas. STOMACH: The stomach is collapsed, limiting evaluation. SMALL BOWEL: The small bowel is normal in caliber. COLON: The colon is unremarkable. APPENDIX: Normal. URINARY BLADDER/PELVIC ORGANS: The urinary bladder is collapsed, limiting evaluation. The uterus and ovaries have an unremarkable unenhanced appearance. BONES / SOFT TISSUES: No suspicious bony or soft tissue abnormalities. IMPRESSION: 1. 3 mm nonobstructing left lower pole renal calculus. No evidence of right nephrolithiasis or ureteral obstruction. 2. Cirrhosis of the liver with splenomegaly. 4. The urinary bladder is collapsed, limiting evaluation. Date of Service: 10/20/24 CLINICAL HISTORY: History of kidney stones, evaluate for hydronephro CT abdomen and pelvis with contrast Comparison: CT - CT ABDOMEN PELVIS W IV CON - 10/20/24 19:19 EDT Findings: The lung bases are clear. Status post cholecystectomy. Extensive nodularity of the liver with mild atrophic changes concerning for hepatic cirrhosis. No hydronephrosis. Stable 3-4 mm left kidney lower pole nonobstructing stones. No bowel obstruction, pneumoperitoneum, or pneumatosis. Pelvic contents unremarkable. Normal appendix. No acute fracture. IMPRESSION: No acute findings. No hydronephrosis. Stable 3-4 mm left kidney lower pole nonobstructing stones. Extensive nodularity of the liver with mild atrophic changes concerning for hepatic cirrhosis. Status post cholecystectomy. Date of Service: 05/20/24 CT ABDOMEN AND PELVIS WITHOUT IV CONTRAST CLINICAL INFORMATION: Right-sided pain, questionable stone COMPARISON: CT abdomen/pelvis January 09, 2024 TECHNIQUE: Multiple axial images were obtained from the superior aspect of the liver through the pubic symphysis without intravenous contrast. Images were evaluated on independent dedicated 3-D workstation and 3-D images were reconstructed with concurrent radiologist supervision and subsequently interpreted. Oral contrast was not administered. This CT examination was performed using dose optimization techniques as appropriate, variously including the following: *Automated exposure control *Adjustment of mA and/or kV according to patient size (this includes techniques or standardized protocols for targeted exams where dose is matched to indication/reason for exam; i.e. extremities or head) *Use of iterative reconstruction technique DLP: 517 mGy-cm FINDINGS: LUNG BASES: The visualized lung bases are clear. CARDIOMEDIASTINUM: The visualized heart is normal in size without pericardial effusion. No coronary artery calcification. LIVER: Nodular in contour. Homogeneous in attenuation. Enlarged in size measuring 19 cm in the midclavicular line. GALLBLADDER: Absent BILIARY SYSTEM: No intrahepatic or extrahepatic biliary dilation. PANCREAS: Homogeneous in attenuation. SPLEEN: Normal in size. GENITOURINARY: No contour deforming masses. No perinephric fluid collection. Left lower pole 3 mm nonobstructing renal calculus. No hydroureteronephrosis. ADRENAL GLANDS: Unremarkable. REPRODUCTIVE: Uterus and and bilateral adnexa are unremarkable. GASTROINTESTINAL: The visualized alimentary tract is normal in course. No evidence of obstruction. APPENDIX: The appendix is not visualized; however, no pericecal inflammatory changes are seen in the right lower quadrant. PERITONEUM: No pneumoperitoneum. No intra-abdominal fluid collection. VASCULATURE: No abdominal aortic aneurysm. LYMPH NODES: No pathologically enlarged abdominal or pelvic lymph nodes. SOFT TISSUES/MUSCULOSKELETAL: There is no acute fracture or significant focal osseous lesion. IMPRESSION: Left lower pole 3 mm nonobstructing renal calculus. Date of Service: 05/04/23 EXAMINATION: CT ABDOMEN AND PELVIS WITHOUT CONTRAST CLINICAL INFORMATION: Flank pain COMPARISON: CT abdomen pelvis 02/25/2023 FINDINGS: LUNG BASES: The visualized lung bases are unremarkable. LIVER, GALLBLADDER, AND BILIARY TREE: The liver is cirrhotic in appearance with a nodular border and is mildly enlarged. No liver masses or bile duct dilatation. Status post cholecystectomy PANCREAS: Unremarkable. SPLEEN: Spleen is enlarged at 14.9 cm. ADRENAL GLANDS: Unremarkable. KIDNEYS AND URETERS: There is a small left pericapsular hematoma. Multiple small stone fragments are present in the distal left ureter, the largest measuring about 4 mm, and this is associated with ureteral dilatation and left-sided pelvocaliectasis. Additional intrarenal calculi are seen the largest measuring 0.7 cm on the left. Calcification near the right renal pelvis may be vascular. BLADDER: Other than above, unremarkable GASTROINTESTINAL TRACT: The small and large bowel are unremarkable. The appendix is unremarkable. ABDOMINAL WALL: No significant hernia is appreciated. LYMPH NODES: No retroperitoneal lymphadenopathy VASCULAR: Unremarkable. PELVIC VISCERA: The uterus and adnexa are unremarkable. OSSEOUS STRUCTURES: Unremarkable. IMPRESSION: 1. Multiple small stone fragments in the distal left ureter with associated ureteral dilatation and left-sided pelvocaliectasis. There is a small left pericapsular hematoma. Although history of ESWL was not provided, these findings could be secondary to that if that was in fact performed 2. Additional intrarenal calculi are seen on the left. EXAMINATION: US RETROPERITONEAL LIMITED (RENAL ONLY) CLINICAL INFORMATION: Bilateral flank pain. COMPARISON: Baseline CT scan 05/04/2023. TECHNIQUE: Standard bilateral renal ultrasound FINDINGS: RIGHT KIDNEY: 9.6 x 4.8 x 5.4 cm (SAG x AP x TRV). The kidney is normal in size, contour, and echogenicity. Renal cortical thickness is normal. No calculi or focal parenchymal lesions. No hydronephrosis. Vascular calcifications noted. LEFT KIDNEY: 10.7 x 4.8 x 5.5 cm (SAG x AP x TRV). The kidney is normal in size, contour, and echogenicity. Renal cortical thickness is normal. Previous noted perinephric collection has resolved. Low pole stone measures up to 5 mm. IMPRESSION: Resolved left-sided perinephric collection. Nonobstructing left-sided renal calculus. Date of Service: 07/10/23 EXAMINATION: US PELVIS LIMITED (BLADDER) CLINICAL INFORMATION: Calculus of ureter status post left ESWL on May 02, 2023. CT abdomen and pelvis showed a small left pericapsular hematoma not clinically significant, left ureteral stones, [address]; patient has passed some stones, follow-up imaging. COMPARISON: None available. TECHNIQUE: Real-time imaging of the bladder. FINDINGS: BLADDER: Well distended. Bilateral ureteral jets are demonstrated. Prevoid bladder volume is 329 mL. Postvoid bladder volume is 83 mL. No gross bladder calculi are appreciated. Limited visualization due to bowel gas. IMPRESSION: 1. Postvoid bladder volume is 83 mL. 2. No gross bladder calculi are appreciated. Limited visualization due to bowel gas. Assessment & Plan Assessment & Plan (1) Kidney stone on left side: Code(s): N20.0 - Calculus of kidney Category: Medical Plan We will continue to monitor left kidney stone. Follow-up in 8 months renal ultrasound prior. Orders: Orders AMB Urinalysis Automated Today Z13.9 - Encounter for screening, unspecified US renal BI 7 Months N20.0 - Calculus of kidney Patient Instructions: The patient had an opportunity to ask questions regarding treatment plan. The patient expressed understanding and agreement with the above treatment plan. The patient is aware they should contact our office by phone for worsening of their current condition or the appearance of new symptoms. Compliance is encouraged with any medications and followup testing that is ordered. It is a privilege to be allowed the opportunity to participate in the urologic care of your patient. If you have any questions or concerns regarding treatment for the above conditions please do not hesitate to contact me. The office telephone contact is [phone]. This note is constructed in part using voice recognition software. While every effort has been made to ensure accuracy printed circuit boards stripper etcher errors may have been included. Yours sincerely, Vianey Miller MD Coding Level of Care Code Est Pt Level 3 (24808) Complex EM visit Add On G2211 Diagnoses Kidney stone on left side N20.0
--- OUTSIDE RECORDS SUMMARY | 2025-03-26 14:32 | XMS_ITS | Encounter Summary ---
Author Organization [employer] Address [address] [facility] [place] [address] Care Team Providers Care Squadron Worker Name Role Phone Wanda Bonilla Primary Care Provider [phone] Rajni García RN Unavailable [phone] April Michele MD Unavailable [phone] Lee Hubbard MD Unavailable [phone] Reason for Visit * Reason Onset Date Comments Results 09/12/2023 Encounter Details Date Type Department Care Team ([facility] st Contact Info) Description 09/12/2023 Telephone [facility] MEDICINE [address] [place], [place] [phone] Wanda Bonilla ANP [address] [place], [place] [phone] Results Social History Tobacco Use Types Packs/Day [...] (in chart) Date when done: 08/30 Facility: [facility] [place] Type of results: US neck Date when done: sometime last week per pt Facility: [facility] vascular services Please contact pt at [phone] documented in this encounter Plan of Treatment Upcoming Encounters Date Type Department Care Team (Late st Contact Info) Description 04/02/2025 2:30 PM EDT Office Visit [facility] MEDICINE [address] [place], [place] [phone] Wanda Bonilla ANP [address] [place] [address] 04/20/2025 2:30 PM EDT Office Visit [facility] OPTOMETRY [address] [place] [address] Smiley Scott, OD [address] [place] [address] documented as of this encounter Visit Diagnoses Not on filedocumented in this encounter Additional Health Concerns Assessment Noted Time PHQ-9 Depression Total Score: 0 08/25/19 23 1:48 PM EST documented as of this encounter Care Teams Squadron Worker Relationship Specialty Start Date End Date Wanda Bonilla ANP [address] [place] [address] PCP - General Family Medicine 09/03/20 Rajni García, TIM [address] [place] [address] Business Services TechCoil Cleaner 09/18/24 12/15/24 April Michele MD [address] [place] [address] Referring Physician Infectious Diseases 10/09/24 Lee Hubbard MD [address] [place] [address] Urology 10/09/24 [facility] cardiology 11/12/23 documented as of this encounter
--- OUTSIDE RECORDS SUMMARY | 2025-03-26 14:32 | XMS_ITS | Encounter Summary ---
Author Organization [employer] Address [address] [facility] [address] [place] [address] Care Team Providers Care Assistant Education Director Name Role Phone Wanda Bonilla Primary Care Provider [phone] Rajni García RN Unavailable [phone] April Michele MD Unavailable [phone] Lee Hubbard MD Unavailable [phone] Encounter Details Date Type Department Care Team (Late st Contact Info) Description 08/28/2023 Orders Only [facility] MEDICINE [address] [place] [address] Wanda Bonilla ANP [address] [place] [address] Social History Tobacco Use Types Packs/Day Years [...] Description 04/02/2025 2:30 PM EDT Office Visit [facility] MEDICINE [address] [place] [address] Wanda Bonilla ANP [address] [place] [address] 04/20/2025 2:30 PM EDT Office Visit [facility] OPTOMETRY [address] [place] [address] Tyler, Smiley, OD [address] [place] [address] documented as of this encounter Visit Diagnoses Not on filedocumented in this encounter Additional Health Concerns Assessment Noted Time PHQ-9 Depression Total Score: 0 08/25/19 23 1:48 PM EST documented as of this encounter Care Teams Assistant Education Director Relationship Specialty Start Date End Date Wanda Bonilla ANP [address] [place] [address] PCP - General Family Medicine 09/03/20 Rajni García RN [address] [place] [address] Stock Or Delivery ClerkPackage Line Relief Operator 09/18/24 12/15/24 April Michele MD [address] [facility] [address] [place] [address] Referring Physician Infectious Diseases 10/09/24 Lee Hubbard MD [address] [place] [address] [address] [place] [address] Urology 10/09/24 [facility] cardiology 11/12/23 documented as of this encounter
--- OUTSIDE RECORDS SUMMARY | 2025-03-26 14:32 | XMS_ITS | Encounter Summary ---
Author Organization [employer] Address [address] [place] [address] Care Team Providers Care Owner Operator Name Role Phone Irene Wanda HARO Primary Care Provider [phone] Rajni García RN Unavailable April Michele MD Unavailable [phone] Lee Hubbard MD Unavailable [phone] Encounter Details Date Type Department Care Team (Late st Contact Info) Description 08/14/2024 Telephone [facility] MEDICINE [address] [place] [address] Adolfo Fernando, VishnuD Social History Tobacco Use [...] Description 04/02/2025 2:30 PM EDT Office Visit [facility] MEDICINE [address] [place] [address] Wanda Bonilla ANP [address] [place] [address] 04/20/2025 2:30 PM EDT Office Visit [facility] OPTOMETRY [address] [place] [address] Smiley Scott, OD [address] [place] [address] documented as of this encounter Visit Diagnoses Not on filedocumented in this encounter Additional Health Concerns Assessment Noted Time PHQ-9 Depression Total Score: 5 11/23/19 24 1:33 PM EDT documented as of this encounter Care Teams Owner Operator Relationship Specialty Start Date End Date Wanda Bonilla ANP [address] [place] [address] PCP - General Family Medicine 09/03/20 Rajni García, RN [address] [place] [address] Emergency MedicineHarness Brusher 09/18/24 12/15/24 April Michele MD [address] [facility] [address] [place] [address] Referring Physician Infectious Diseases 10/09/24 Lee Hubbard MD [address] [place] [address] Urology 10/09/24 [facility] cardiology 11/12/23 documented as of this encounter
--- OUTSIDE RECORDS SUMMARY | 2025-03-26 14:32 | XMS_ITS | Encounter Summary ---
Author Organization [employer] Address [address] [facility] [address] [place] [address] Care Team Providers Care Office Mail Clerk Name Role Phone Wanda Bonilla Primary Care Provider [phone] Rajni García RN Unavailable [phone] April Michele MD Unavailable [phone] Lee Hubbard MD Unavailable [phone] Reason for Visit * Reason Comments Med Refill Encounter Details Date Type Department Care Team (Late st Contact Info) Description 11/05/2023 Refill [facility] MEDICINE [address] [place] [address] Wanda Bonilla ANP [address] [place] [address] Social History Tobacco Use Types Packs/Day Years [...] Description 04/02/2025 2:30 PM EDT Office Visit [facility] MEDICINE [address] [place] [address] Wanda Bonilla ANP [address] [place] [address] 04/20/2025 2:30 PM EDT Office Visit [facility] OPTOMETRY [address] [place] [address] Tyler, Smiley, OD [address] [place] [address] documented as of this encounter Visit Diagnoses Not on filedocumented in this encounter Additional Health Concerns Assessment Noted Time PHQ-9 Depression Total Score: 0 08/25/19 23 1:48 PM EST documented as of this encounter Care Teams Office Mail Clerk Relationship Specialty Start Date End Date Wanda Bonilla ANP [address] [place] [address] PCP - General Family Medicine 09/03/20 Rajni García RN [address] [place] [address] Special Education AideCommercial Lawn Specialist 09/18/24 12/15/24 April Michele MD [address] [facility] [address] [place] [address] Referring Physician Infectious Diseases 10/09/24 Lee Hubbard MD [address] [facility] [address] [place] [address] Urology 10/09/24 [facility] cardiology 11/12/23 documented as of this encounter
--- OUTSIDE RECORDS SUMMARY | 2025-03-26 14:32 | XMS_ITS | Encounter Summary ---
Author Organization [employer] Address [address] [facility] 7t [place] [address] Care Team Providers Care Principal Clerk Name Role Phone Wanda Bonilla Primary Care Provider Rajni García RN Unavailable [phone] April Michele MD Unavailable [phone] Lee Hubbard MD Unavailable [phone] Reason for Visit * Reason Comments Med Refill Encounter Details Date Type Department Care Team (Late st Contact Info) Description 08/03/2024 Refill [facility] MEDICINE [address] [place] [address] Wanda Bonilla ANP [address] [place] [address] Essential hypertension Social History Tobacco Use Types [...] 2:30 PM EDT Office Visit [facility] MEDICINE [address] [place] [address] Wanda Bonilla ANP [address] [place] [address] 04/20/2025 2:30 PM EDT Office Visit [facility] OPTOMETRY [address] [place] [address] [place], Smiley, OD [address] [place] [address] documented as of this encounter Visit Diagnoses Diagnosis Essential hypertension Unspecified essential hypertension documented in this encounter Additional Health Concerns Assessment Noted Time PHQ-9 Depression Total Score: 5 11/23/19 24 1:33 PM EDT documented as of this encounter Care Teams Principal Clerk Relationship Specialty Start Date End Date Wanda Bonilla ANP [address] [place] [address] PCP - General Family Medicine 09/03/20 Rajni García RN [address] [place] [address] Retail Loan OfficerStatistical Methods Professor 09/18/24 12/15/24 April Michele MD [address] [facility] [address] [place] [address] Referring Physician Infectious Diseases 10/09/24 Lee Hubbard MD [address] [facility] [address] [place] [address] Urology 10/09/24 [facility] cardiology 11/12/23 documented as of this encounter
--- OUTSIDE RECORDS SUMMARY | 2025-03-26 14:32 | XMS_ITS | Encounter Summary ---
Author Organization [employer] Address [address] [facility] 7t [place] [address] Care Team Providers Care Bellows Filler Name Role Phone Wanda Bonilla Primary Care Provider Rajni García RN Unavailable [phone] April Michele MD Unavailable [phone] Lee Hubbard MD Unavailable [phone] Reason for Visit * Reason Onset Date Comments Med Refill 10/01/2023 Encounter Details Date Type Department Care Team (Late st Contact Info) Description 10/01/2023 Telephone [facility] MEDICINE [address] [place], [place] [phone] Wanda Bonilla ANP [address] [place], [place] [phone] Med Refill Social History Tobacco Use Types [...] 250 MG tablet To be sent to: [facility] pharmacy documented in this encounter Plan of Treatment Upcoming Encounters Date Type Department Care Team (Late st Contact Info) Description 04/02/2025 2:30 PM EDT Office Visit [facility] MEDICINE [address] [place] [address] Wanda Bonilla ANP [address] [place] [address] 04/20/2025 2:30 PM EDT Office Visit [facility] OPTOMETRY [address] [place] [address] Tyler, Smiley, OD 230 [place] [address] documented as of this encounter Visit Diagnoses Not on filedocumented in this encounter Additional Health Concerns Assessment Noted Time PHQ-9 Depression Total Score: 0 08/25/19 23 1:48 PM EST documented as of this encounter Care Teams Bellows Filler Relationship Specialty Start Date End Date Wanda Bonilla ANP [address] [place] [address] PCP - General Family Medicine 09/03/20 Rajni García, TIM [address] [place] [address] Assistant Professor Of PhysicsSpecial Ed Assistant 09/18/24 12/15/24 April Michele MD [address] [place] [address] [address] [place] [address] Referring Physician Infectious Diseases 10/09/24 Lee Hubbard MD [address] [place] [address] Urology 10/09/24 [facility] cardiology 11/12/23 documented as of this encounter
--- OUTSIDE RECORDS SUMMARY | 2025-03-26 14:32 | XMS_ITS | Encounter Summary ---
Author Organization [employer] Address [address] [facility] 7t [place] [address] Care Team Providers Care Spray Painter Name Role Phone Wanda Bonilla Primary Care Provider Rajni García RN Unavailable [phone] April Michele MD Unavailable [phone] Lee Hubbard MD Unavailable [phone] Reason for Visit * Reason Onset Date Comments Med Refill 08/28/2023 Encounter Details Date Type Department Care Team (Late st Contact Info) Description 08/28/2023 Telephone [facility] MEDICINE [address] [place], [place] [phone] Wanda Bonilla ANP [address] [place], [place] [phone] Med Refill Social History Tobacco Use Types [...] MG/1.5ML solution pen-injector To be sent to: [facility] documented in this encounter Plan of Treatment Upcoming Encounters Date Type Department Care Team (Late st Contact Info) Description 04/02/2025 2:30 PM EDT Office Visit [facility] MEDICINE [address] [place], [place] [phone] Wanda Bonilla ANP [address] [place] [address] 04/20/2025 2:30 PM EDT Office Visit [facility] OPTOMETRY [address] [place] [address] Smiley Scott, OD 230 [place] [address] documented as of this encounter Visit Diagnoses Not on filedocumented in this encounter Additional Health Concerns Assessment Noted Time PHQ-9 Depression Total Score: 0 08/25/19 23 1:48 PM EST documented as of this encounter Care Teams Spray Painter Relationship Specialty Start Date End Date Wanda Bonilla ANP [address] [place] [address] PCP - General Family Medicine 09/03/20 Rajni García, TIM [address] [place] [address] Garment WorkerCafeteria Manager 09/18/24 12/15/24 April Michele MD [address] [facility] [address] [place] [address] Referring Physician Infectious Diseases 10/09/24 Lee Hubbard MD [address] [place] [address] Urology 10/09/24 [facility] cardiology 11/12/23 documented as of this encounter
--- OUTSIDE RECORDS SUMMARY | 2025-03-26 14:32 | XMS_ITS | Encounter Summary ---
Author Organization [employer] Address [address] [place] [address] 7t [place] [address] Care Team Providers Care Blow Molding Machine Operator Name Role Phone Wanda Bonilla Primary Care Provider [phone] Rajni García RN Unavailable [phone] April Michele MD Unavailable [phone] Lee Hubbard MD Unavailable Reason for Visit * Reason Comments Med Refill Encounter Details Date Type Department Care Team (Late st Contact Info) Description 01/11/2023 Refill [facility] MEDICINE [address] [place] [address] Wanda Bonilla ANP [address] [place] [address] Social History Tobacco Use Types Packs/Day Years [...] Description 04/02/2025 2:30 PM EDT Office Visit [facility] MEDICINE [address] [place] [address] Wanda Bonilla ANP [address] [place] [address] 04/20/2025 2:30 PM EDT Office Visit [facility] OPTOMETRY [address] [place] [address] Tyler, Smiley, OD 230 [place] [address] documented as of this encounter Visit Diagnoses Not on filedocumented in this encounter Additional Health Concerns Assessment Noted Time PHQ-9 Depression Total Score: 0 08/25/19 23 1:48 PM EST documented as of this encounter Care Teams Blow Molding Machine Operator Relationship Specialty Start Date End Date Wanda Bonilla ANP [address] [place] [address] PCP - General Family Medicine 09/03/20 Rajni García, TIM [address] [place] [address] Administrative Assistant ReceptionistOutside Sales Executive 09/18/24 12/15/24 April Michele MD [address] [facility] [address] [place] [address] Referring Physician Infectious Diseases 10/09/24 Lee Hubbard MD [address] [place] [address] Urology 10/09/24 [facility] cardiology 11/12/23 documented as of this encounter
--- OUTSIDE RECORDS SUMMARY | 2025-03-26 14:32 | XMS_ITS | Encounter Summary ---
Author Organization [employer] Address [address] [facility] 7t [place] [address] Care Team Providers Care Change Room Attendant Name Role Phone Wanda Bonilla Primary Care Provider [phone] Rajni García RN Unavailable [phone] April Michele MD Unavailable [phone] Lee Hubbard MD Unavailable [phone] Reason for Visit * Reason Onset Date Comments Appointment Request 06/12/2023 Encounter Details Date Type Department Care Team ([facility] st Contact Info) Description 06/12/[address] [facility] MEDICINE [address] [place], [place] [phone] Wanda Bonilla ANP [address] [place], [place] [phone] Appointment Request Social History Tobacco Use Types [...] Description 04/02/2025 2:30 PM EDT Office Visit [facility] MEDICINE [address] [place] [address] Wanda Bonilla ANP [address] [place] [address] 04/20/2025 2:30 PM EDT Office Visit [facility] OPTOMETRY [address] [place] [address] [place], Smiley, OD [address] [place] [address] documented as of this encounter Visit Diagnoses Not on filedocumented in this encounter Additional Health Concerns Assessment Noted Time PHQ-9 Depression Total Score: 0 08/25/19 23 1:48 PM EST documented as of this encounter Care Teams Change Room Attendant Relationship Specialty Start Date End Date Wanda Bonilla ANP [address] [place] [address] PCP - General Family Medicine 09/03/20 Rajni García, RN [address] [place] [address] Administrative Job TitlesCan Piler 09/18/24 12/15/24 April Michele MD [address] [place] [address] [address] [place] [address] Referring Physician Infectious Diseases 10/09/24 Lee Hubbard MD [address] [place] [address] Drive [address] [place] [address] Urology 10/09/24 [facility] cardiology 11/12/23 documented as of this encounter
--- OUTSIDE RECORDS SUMMARY | 2025-03-26 14:32 | XMS_ITS | Clinical Summary ---
Author Organization [employer] Address [address] [place] [address] [address] [place] [address] Care Team Providers Care Supply Teacher Name Role Phone Irene Sandra HARO Primary Care Provider [phone] April Michele MD Unavailable [phone] Lee Hubbard MD Unavailable [phone] Allergies Active Allergy Reactions Criticality Noted Date Comments Dulaglutide 04/21/2021 Other reaction(s): GI Problems Morphine Abdominal Pain 02/15/2024 Tramadol Other Low 10/09/2024 nightmares Medications Emollient (Eucerin Original Healing) lotion use twice daily 022 Active traZODone (Desyrel) 150 MG tablet take 1 tablet by oral route at bedtime as needed Active hydrOXYzine HCl (Atarax) 25 MG tablet [...] the morning and at bedtime. 023 Active famotidine (Pepcid) 20 MG tabletIndications :Heartburn Take 1 tablet twice daily as needed for acid reflux 60 tablet 1 024 Active hydrocortisone 1 % creamIndications: Rash Apply topically 2 times daily. 45 g 024 Active budesonide (Pulmicort Flexhaler) 180 MCG/ACT inhalerIndication s:Asthma, unspecified asthma severity, unspecified whether complicated, unspecified whether persistent Inhale 2 puffs 2 times daily. Rinse mouth after use. 1 each 024 Active rosuvastatin (Crestor) 5 MG tabletIndications :Type 2 diabetes mellitus with hyperlipidemia (CMS/HCC) ([facility]) TAKE 1 TABLET BY MOUTH EVERY EVENING 90 tablet 3 024 Active lisinopril 40 MG tablet TAKE 1 TABLET BY MOUTH EVERY EVENING 90 tablet 3 024 Active Aspirin Low Dose 81 MG EC tablet TAKE 1 TABLET BY MOUTH EVERY EVENING 90 tablet 3 024 Active TRUEplus Lancets 33G misc TEST BLOOD SUGAR THREE TIMES DAILY 100 each 024 Active insulin pen needle (Easy Touch Pen [place]) 31G X 8 mm miscIndications:D iabetic polyneuropathy associated with type 2 diabetes mellitus ([facility]) USE DIRECTED FOUR TIMES DAILY 100 each 025 Active Blood Pressure Monitoring (Omron 3 Series BP Monitor) device Use as directed 1x/d 1 each 025 Active Blood Glucose Monitoring Suppl (FreeStyle Ekwok Lite) w/Device kit Use to test blood sugar 1x times daily 1 kit 025 Active insulin lispro (HumaLOG) 100 UNIT/ML injectionIndicati ons:Type 2 diabetes mellitus with hyperlipidemia (CMS/HCC) ([facility]) INJECT 20 UNITS SUBCUTANEOUSLY THREE TIMES DAILY WITH MEALS 15 mL 11 025 Active butalbital-acetam inophen-caffeine 50-325-40 MG tabletIndications :Nonintractable episodic headache, unspecified headache type Take 1 tablet as needed for migraine once, can repeat after 2 hours, do not exceed more than 4 tablets in 24 hours or use more than 3 days in 1 month 18 tablet Active tamsulosin (Flomax) 0.4 MG 24 hr capsule TAKE 1 CAPSULE BY MOUTH EVERY DAY 30 capsule Active glucose blood (FREESTYLE LITE) test strip TEST BLOOD SUGAR THREE TIMES DAILY 100 strip 11 Active Lantus SoloStar 100 UNIT/ML penIndications:Ty pe 2 diabetes mellitus with hyperglycemia, with long-term current use of insulin ([facility]) INJECT 54 UNITS SUBCUTANEOUSLY EVERY DAY 15 mL 3 Active gabapentin (Neurontin) 300 MG capsule TAKE 1 CAPSULE BY MOUTH TWICE DAILY IN THE MORNING AND IN THE EVENING and TAKE 2 CAPSULES BY MOUTH EVERY DAY AT BEDTIME 120 capsule 3 Active D3-1000 25 MCG (1000 UT) capsuleIndication s:Low vitamin D level TAKE 1 CAPSULE BY MOUTH EVERY MORNING 90 capsule 2 Active lidocaine (Lidoderm) 5 % patchIndications: Pain APPLY 1 PATCH TOPICALLY TO SKIN, LEAVE ON FOR 12 HOURS AND OFF FOR 12 HOURS DIRECTED. May use 2 patches at once. 60 patch 2 Active estradiol (Estrace) 0.1 MG/GM vaginal creamIndications: Vaginal itching 1g vaginally daily for 1-2 weeks, then twice weekly thereafter 45 g 2 Active NIFEdipine CC (Adalat CC) 60 MG 24 hr tabletIndications :Benign essential HTN Take 1 tablet (60 mg) by mouth before breakfast. Do not crush, chew, or split. 90 tablet 1 025 2025 Active triamcinolone (Kenalog) 0.1 % ointment Apply topically if needed in the morning and at bedtime for rash. 30 g 1 Active NIFEdipine XL (Procardia XL) 60 MG 24 hr tabletIndications :Primary hypertension TAKE 1 TABLET BY MOUTH EVERY MORNING BEFORE BREAKFAST DO NOT BREAK, CRUSH, DISSOLVE OR CHEW Active sofosbuvir-velpat asvir (Epclusa) 400-100 MG tabletIndications :Chronic hepatitis C without hepatic coma (CMS/HCC) Take 1 tablet by mouth. 024 Active carvedilol (Coreg) 6.25 MG tabletIndications :Primary hypertension TAKE 1 TABLET BY MOUTH TWICE DAILY AT NOON AND BEDTIME 180 tablet 025 Active pioglitazone (Actos) 15 MG tabletIndications :Type 2 diabetes mellitus with hyperlipidemia (CMS/HCC) (CMS/HCC) TAKE 1 TABLET BY MOUTH EVERY MORNING 90 tablet 3 025 Active lansoprazole (Prevacid) [address] capsuleIndication s:Heartburn TAKE 1 CAPSULE BY MOUTH EVERY MORNING BEFORE BREAKFAST DO NOT BREAK, CRUSH, DISSOLVE OR CHEW 90 capsule 1 025 Active rOPINIRole (Requip) 0.5 MG tabletIndications :Restless legs TAKE 1 TABLET BY MOUTH AT BEDTIME 1-3 HOURS BEFORE BEDTIME 30 tablet 2 025 Active Ozempic, 0.25 or 0.5 MG/DOSE, 2 MG/3ML solution pen-injectorIndic ations:Diabetic polyneuropathy associated with type 2 diabetes mellitus (CMS/HCC) INJECT 0.5 MG SUBCUTANEOUSLY EVERY 7 DAYS IN THE ABDOMEN, THIGHS, OR UPPER ARM, ROTATE INJECTION SITES. 3 mL 1 025 Active pioglitazone (Actos) 15 MG tabletIndications :Type 2 diabetes mellitus with hyperlipidemia (CMS/HCC) (CMS/HCC) TAKE 1 TABLET BY MOUTH EVERY MORNING 90 tablet 3 024 2024 Discontinued lansoprazole (Prevacid) [address] capsuleIndication s:Heartburn TAKE 1 CAPSULE BY MOUTH EVERY MORNING BEFORE BREAKFAST DO NOT BREAK, CRUSH, DISSOLVE OR CHEW 90 capsule 1 025 2024 Discontinued rOPINIRole (Requip) 0.5 MG tabletIndications :Restless legs TAKE 1 TABLET BY MOUTH AT BEDTIME 1-3 HOURS BEFORE BEDTIME 30 tablet 2 025 2024 Discontinued Semaglutide,0.25 or 0.5MG/DOS, (Ozempic, 0.25 or 0.5 MG/DOSE,) 2 MG/3ML solution pen-injectorIndic ations:Diabetic polyneuropathy associated with type 2 diabetes mellitus (CMS/HCC) Inject 0.5 mg under the skin 1 (one) time per week. 3 mL 1 025 2024 Discontinued Hospital, Clinic, or Other Facility Administered Medication Ordered Dose Route Frequency Start Date End Date Status nitroglycerin (Nitrostat) SL tablet 0.4 mgIndications:Chest pain, unspecified type 0.4 mg SL Every 5 min PRN 10/22/2023 Active Active Problems Problem Noted Date Diagnosed Date Right flank pain 02/06/2025 Pelvic pain 02/06/2025 Assessment & Plan (02/10/2025 8:12 AM EDT): Treating symptomatically with Flexeril and miconazole intravaginal cream RUQ abdominal pain 02/06/2025 Rheumatoid factor positive 02/06/2025 Peripheral neuropathy 02/06/2025 GERD (gastroesophageal reflux disease) Fatty liver 02/06/2025 Complex ovarian cyst 02/06/2025 Cervical spondylosis 02/06/2025 Benign neoplasm of pituitary gland and craniopharyngeal duct 02/06/2025 Alcohol use 02/06/2025 Abnormal LFTs 02/06/2025 Elevated troponin 10/09/2024 Overview (10/09/2024): Regarding her elevated troponins she was briefly hospitalized in October 2023 for this in context of chest pain and discharge diagnosis was NSTEMI however they did not give patient DAPT nor send her for cardiac cath so I am not confident in this diagnosis. She did have stress test while admitted. She did get established with [facility] cardiology. I will request updated notes. Patient [...] opiates) with Tylenol and ibuprofen I called [facility] cardiology clinic and they will call patient [...] Chest pain 12/07/2023 Overview (12/07/2023): [place] [facility] [place] ?NSTEMI Optimize BP, DM, minimize risk [...] Calcaneal spur, left 04/24/2023 Renal stones 04/24/2023 Assessment & Plan (02/10/2025 8:11 AM EDT): Currently one non-obstructing renal stone L lower pole of kidney, advised to increase fluid intake, acidify urine with lemon juice water, and take NSAIDs for pain Chronic headaches 04/24/2023 PAD (peripheral artery disease) 04/24/2023 Sleep disorder, unspecified 04/24/2023 Somnolence, daytime 04/24/2023 Bloody discharge from right nipple 02/23/2023 Overview (08/02/2023): BIRADS 0 mammo 12/02/22, then diag mammo and R breast US 12/22/22. These did not reveal concerning findings, but they also did not provide explanation for discharge. Psychiatrist decreased seroquel. She was referred to [facility] Breast Specialist for further eval. History of [...] 12/21/2017 Cirrhosis of liver 07/27/2017 Overview (10/01/2023): [facility] [place] D/[place] HCV (suspect s/p blood transfusion [...] polyneuropathy 07/09/2014 Carpal tunnel syndrome 06/03/2013 4 Hyperlipidemia 04/29/2013 Type 2 diabetes mellitus, uncontrolled 3 Panic disorder without agoraphobia 02/25/2013 Asthma 02/28/2012 Assessment & Plan (09/05/2023 2:48 PM EST): Rapid viral tests are negative. Has acute bronchospasm despite albuterol nebs Start medrol pack, continue albuterol neb q6h x 5d then prn Counseled to quit smoking Use Tylenol bid Or diclofenac gel bid prn pleuritic CP. Chronic hepatitis C without hepatic coma 012 Overview (02/23/2023): Last US 07/2022 ABD US SHOWED: 1. Cirrhotic liver with borderline splenomegaly. 2. Nonobstructive left renal calculi. 3. Nonobstructive right renal calculi versus vascular calcifications. 4. Status post cholecystectomy. Hypertension 12/14/2011 Assessment & Plan (02/10/2025 8:10 AM EDT): Slightly uncontrolled, likely due to pelvic/back pain Advised to take all meds including amlodipine until she sees cardiology. Assessment & Plan (09/08/2024 11:50 AM EST): [...] dependent type 1 diabetes mellitus 09/24/2018 08/02/2023 Benign neoplasm of pituitary gland 06/03/2013202302/10/2025 Encounters Date Type Department Care Team Description 03/20/2025 Refill [facility] [address] [place] [address] Sandra Vieira ANP Diabetic polyneuropathy associated with type 2 diabetes mellitus ([facility]/HCC) 03/19/2025 Orders Only GENERIC EXTERNAL DATA DEPARTMENT Provider, Generic External Data 03/14/2025 Refill [facility] WALK-IN CENTER [address] [place] [address] Sandra Vieira ANP Restless legs 03/12/2025 Refill [facility] MEDICINE [address] [place], [place] [phone] Sandra Vieira ANP Type 2 diabetes mellitus with hyperlipidemia (CMS/HCC) ([facility]/HCC); Heartburn 03/04/2025 Telephone [facility] MEDICINE [address] [place], [place] [phone] Sandra Vieira ANP imaging question 02/12/2025 Refill [facility] MED[facility] [address] [place], [place] [phone] Sandra Vieira ANP Primary hypertension 02/06/2025 11:20 AM EDT Office Visit [facility]ALK[facility] [address] [address] Merced Chávez MD Other cirrhosis of liver ([facility]/HCC) (Primary Dx); Dietary counseling; Exercise counseling; Class 1 obesity with serious comorbidity and body mass index (BMI) of 30.0 to 30.9 in adult, unspecified obesity type; Pituitary microadenoma (CMS/HCC); Depressed bipolar I disorder ([facility]/HCC); Primary hypertension; Type 2 diabetes mellitus with hyperlipidemia (CMS/HCC) (CMS/HCC); Chronic hepatitis C without hepatic coma ([facility]/HCC); Renal stones; Pelvic pain 02/06/2025 Travel 02/06/2025 Telephone [facility] MED [facility] [address] [place] [address] Pam Samson RN 01/28/2025 9:20 AM EDT [facility] [address] [address] Jaxson Roman MD Exacerbation of intermittent asthma, unspecified asthma severity (Primary Dx); Cough in adult patient; Wheezing 01/28/[address] [address] Sandra Vieira ANP Med Refill; Medication Question 01/28/2025 Travel 01/27/[address] [phone] Sandra Vieira ANP ER Follow-up 01/27/2025 Refill [facility] [address] [place] [address] Sandra Vieira ANP Diabetic polyneuropathy associated with type 2 diabetes mellitus ([facility]/HCC) 01/20/2025 Telephone [facility] MEDICINE [address] [place] [phone] Sandra Vieira ANP No Show 01/19/2025 Orders Only [facility] External Provider, [facility] 01/07/2025 Telephone [facility] MED[facility]INE [address] [place] [phone] Sandra Vieira ANP Georgette recall 01/06/2025 Telephone [facility] [address] [place] [phone] Sandra Vieira ANP Referral 01/02/2025 Telephone [facility] [address] [place] [phone] Sandra Vieira ANP Referral 12/31/2024 11:20 AM EDT Office Visit [facility] [address] [place] [phone] Nuvia Qiu, Dermatitis (Primary Dx) 12/31/2024 Patient Outreach [facility] [address] [place] [address] Sandra Vieira ANP Care Coordination (Appt reminder) 12/31/2024 Travel 12/26/2024 Results Follow-Up [facility] [address] [place] [phone] Sandra Vieira ANP POCT Glucose, POCT HGB A1C, POCT Urinalysis, Bacterial Vaginosis Panel 12/25/2024 11:00 AM EDT Office Visit [facility] [address] [place] [phone] Sandra Vieira ANP Vaginal itching (Primary Dx); Type 2 diabetes mellitus with hyperlipidemia ([facility]/HCC) ([facility]); Benign essential HTN 12/25/2024 Telephone [facility] [address] [place] [address] Sandra Vieira ANP Med Refill; Appointment Request 12/25/2024 Travel 12/24/2024 Patient Outreach [facility] [address] [place] [phone] Sandra Vieira ANP Care Coordination (Appt reminders) from Last 3 Months Immunizations Immunization Administration [...] Sign Reading Time Taken Comments Blood Pressure 160/80 02/06/2025 11:28 AM EDT Pulse 76 02/06/2025 11:28 AM EDT Temperature 36.6 C (97.8 F) 02/06/2025 11:28 AM EDT Respiratory Rate 18 01/28/2025 9:12 AM EDT Oxygen Saturation 98% 01/28/2025 9:12 AM EDT Inhaled Oxygen Concentration - - Weight 78.5 kg (173 lb) 02/06/2025 11:28 AM EDT Height 158 cm (5' 2.21 ) 02/06/2025 11:28 AM EDT Body Mass Index 31.43 02/06/2025 11:28 AM EDT Plan of Treatment Upcoming Encounters Date Type Department Care Team (Late st Contact Info) Description 04/02/2025 2:30 PM EDT Office Visit [facility] MEDIC[facility] [address] [place] [address] Sandra Vieira, ANP [address] [place] [address] 04/20/2025 2:30 PM EDT Office Visit [facility] OPTOMETRY [address] [place] [address] Smiley Scott, OD [address] [place] [address] Health Maintenance Due Date Last Done Comments [...] COVID-19 Vaccine ( season) 2024 12/29/2020, 12/01/2020 Diabetes: Foot Exam 04/26/2024 04/26/2023, 04/26/2023, 04/26/2023, Additional history exists Diabetes: Urine Protein Screening 05/01/2024 05/01/2023, 04/30/2023, 04/13/2022, Additional history exists Lipid Panel 05/01/2024 05/01/2023, 05/20/2021 SDOH Screening 08/30/2024 08/30/2023 Eye Exam 09/26/2024 09/27/2023, 08/31, 09/27/2023, Additional history exists Depression Screening 11/22/2024 11/23/2023, 11/23/19 Diabetes: Hemoglobin A1C 03/27/2025 025, 09/23/2024, 06/05/2024, Additional history exists Influenza Vaccine (#1) 2025 05/13/2018, 2016 Alcohol/Substance Use Screening 07/24/2025 07/24/2024 Tobacco Screening 02/06/2026 02/06/2025 Mammogram 07/03/2026 07/03/2024, 1211/2023, 01/04/2024, Additional history [...] Procedure Name Priority Date/Time Associated Diagnosis Comments HEPATITIS C VIRAL RNA, QUANTITATIVE, REAL-TIME PCR Routine 03/19/2025 12:13 PM EDT ALPHA FETOPROTEIN, TUMOR MARKER Routine 03/19/2025 12:13 PM EDT CBC Routine 03/19/2025 12:13 PM EDT POCT URINALYSIS DIPSTICK Routine 02/06/2025 3:32 PM EDT Pelvic pain POCT INFLUENZA B (ID NOW RAPID MOLECULAR) Routine 01/28/2025 9:23 AM EDT Cough in adult patient POCT INFLUENZA A (ID NOW RAPID MOLECULAR) Routine 01/28/2025 9:23 AM EDT Cough in adult patient POCT RAPID COVID ANTIGEN Routine 01/28/2025 9:15 AM EDT Cough in adult patient URINALYSIS WITH REFLEX MICROSCOPIC Routine 01/19/2025 10:19 AM EDT MAGNESIUM Routine 01/19/2025 10:02 AM EDT COMPREHENSIVE METABOLIC PANEL Routine 01/19/2025 10:02 AM EDT CBC WITH AUTO DIFFERENTIAL Routine 01/19/2025 10:[address] ABDOMEN PELVIS WO CONTRAST Routine 01/19/2025 8:43 AM EDT BACTERIAL VAGINOSIS PANEL Routine 12/25/2024 11:45 AM EDT Vaginal itching POCT URINALYSIS DIPSTICK Routine 12/25/2024 11:36 AM EDT Vaginal itching POCT GLYCATED HEMOGLOBIN, TOTAL Routine 12/25/2024 11:35 AM EDT Type 2 diabetes mellitus with hyperlipidemia (CMS/HCC) (CMS/HCC) POCT GLUCOSE Routine 12/25/2024 11:35 AM EDT Type 2 diabetes mellitus with [...] Relevant to Health Maintenance Results * (ABNORMAL) Hepatitis C Viral RNA, Quantitative, Real-Time PCR (03/19/2025 12:13 PM EDT) Hepatitis C Viral Load [id number] ) NOT DETECTED IU/mL [facility] HCV Log PCR 6.20(A) NOT DETECTED Log IU/mL [facility] Comment:For additional infor caleb, please refer [email or web address].Selleroutlet/faq/[email or web address](This link is being provided for informational/educational purposes only.)THIS TEST WAS PERFORMED AT:[employer] [place] [id number] YO MD 03/19/2025 12:1 3 PM EDT 03/19/2025 12:19 PM EDT Generic External Data Provider LAB BLOOD ORDERAB LES Final Result Performing Organization Address [facility] de Phone Number [facility] [address] [place] [phone] * Alpha-Fetoprotein, Tumor Marker (03/19/2025 12:13 PM EDT) Pathologist Rebeca Alpha Fetoprotein 4.8 ng/mL [facility] Comment:Reference Range: <6. 1The use of AFP as a tumor marker in females is not recommended.This test was performed using the Jeanine Coulterchemiluminescent method. Values obtained fromdifferent assay methods cannot be usedinterchangeably. AFP levels, regardless ofvalue, should not be interpreted as absoluteevidence of the presence or absence of disease.THIS TEST WAS PERFORMED AT:[employer] [address] [phone] YO MD 03/19/2025 12:1 3 PM EDT 03/19/2025 12:19 PM EDT Generic External Data Provider LAB BLOOD ORDERAB LES Final Result Performing Organization Address [facility] de Phone Number [facility] [address] [place] [phone] * (ABNORMAL) CBC (03/19/2025 12:13 PM EDT) Pathologist Rebeca White Blood Count 4.5(L) 4.8 - 10.8 X10*3/uL [facility] Red Blood Count 4.11(L) 4.20 - 5.50 X10*6/uL [facility] Hemoglobin 11.8(L) 12.0 - 16.0 g/dl [facility] Hematocrit 35.6(L) 37.0 - 47.0 % [facility] Mean Corpuscular Volume 86.6 80.0 - 98.0 fL [facility] Mean Corpuscular Hemoglobin 28.7 27.0 - 33.0 pg [facility] Mean Corpuscular HGB Conc 33.1 31.0 - 35.0 g/dl [facility] Red Cell Distribution Width 13.1 11.0 - 16.0 % [facility] Platelet Count 96(L) 160 - 400 X10*3/uL [facility] Mean Platelet Volume 11.1 9.4 - 12.3 fL [facility] NRBC Pct Auto 0.0 0.0 - 0.2 /100WBC [facility] NRBC Abs Auto 0.000 0.0 - 0.012 X10*3/uL [facility] 03/19/2025 12:1 3 PM EDT 03/19/2025 12:19 PM EDT us Generic External Data Provider LAB BLOOD ORDERAB LES Final Result [facility] [address] [place] [phone] * POCT Urinalysis (02/06/2025 3:32 PM EDT) Only the most recent of2 resultswithin the time period is included. Color, UA Yellow Clarity, UA Clear Glucose, UA Negative Bilirubin, UA Negative Ketones, UA Negative Spec Grav, UA 1.030 Blood, UA Negative Negative, None Detected pH, UA 6.0 Protein, UA Negative Urobilinogen, UA 0.2 Leukocytes, UA Negative Negative, Rare, Trace Nitrite, UA Negative Negative, None Detected Appearance, UA clear QC Media Lot # [id number] Lot# Expiration Date [id number] Urine 02/06/2025 3:32 PM EDT Merced Chávez MD POINT OF CARE TEST ENTER/EDIT ORDERABLES Final Result * Influenza B (ID NOW Rapid Molecular) (01/28/2025 9:23 AM EDT) [facility] Influenza B Negative Negative, Indeterminate [facility] Swab 01/28/2025 9:23 AM EDT us Jaxson Roman MD POINT OF CARE TEST ENTER/EDIT OR DERABLES Final Result Performing Organization Address [facility]/ZIP Co de Phone Number [facility] [address] [place] [phone] * Influenza A (ID NOW Rapid Molecular) (01/28/2025 9:23 AM EDT) [facility] Influenza A Negative Negative, Indeterminate [facility] Swab 01/28/2025 9:23 AM EDT Jaxson Roman MD POINT OF CARE TEST ENTER/EDIT OR DERABLES Final Result Performing Organization Address [facility] Co de Phone Number [facility] [address] [place] [phone] * POCT Rapid COVID Ag (01/28/2025 9:15 AM EDT) [facility] Rapid COVID Ag Negative Swab 01/28/2025 9:15 AM EDT Jaxson Roman MD POINT OF CARE TEST ENTER/EDIT OR DERABLES Final Result * Urinalysis w/reflex microscopic (01/19/2025 10:19 AM EDT) [facility] Color Urine Yellow [facility] Appearance Urine Cloudy [facility] PH 5.5 5.0 - 9.0 [facility] Glucose Urine UA Negative Negative mg/dL [facility] Urine Blood Negative Negative [facility] Specific [place] - Urine 1.020 1.005 - 1.025 [facility] Urine Protein Trace Neg-Trace mg/dL [facility] Urine Ketones Negative Negative mg/dL [facility] Nitrite Urine Negative Negative [facility] Leukocyte Esterase Urine Negative Negative [facility] 01/19/2025 10:1 9 AM EDT 01/19/2025 10:23 AM EDT Narrative [facility] - 01/19/2025 10:32 AM EDT [id number], [employer] us Generic External Data Provider LAB URINE ORDERAB LES Final Result [facility] [address] [place] [phone] * (ABNORMAL) CBC auto differential (01/19/2025 10:02 AM EDT) White Blood Count 3.6(L) 4.8 - 10.8 X10*3/uL [facility] Red Blood Count 3.80(L) 4.20 - 5.50 X10*6/uL [facility] Hemoglobin 11.0(L) 12.0 - 16.0 g/dl [facility] Hematocrit 32.1(L) 37.0 - 47.0 % [facility] Mean Corpuscular Volume 84.5 80.0 - 98.0 fL [facility] Mean Corpuscular Hemoglobin 28.9 27.0 - 33.0 pg [facility] Mean Corpuscular HGB Conc 34.3 31.0 - 35.0 g/dl [facility] Red Cell Distribution Width 13.2 11.0 - 16.0 % [facility] Platelet Count 89(L) 160 - 400 X10*3/uL [facility] Mean Platelet Volume 10.0 9.4 - 12.3 fL [facility] Neutrophils Percent Auto 50.1 45 - 73 % [facility] Imm Gran Pct Auto 0.3 0.0 - 0.4 % [facility] Lymphocytes Percent Auto 34.3 20 - 40 % [facility] Monocytes Percent Auto 12.5(H) 2 - 11 % [facility] Eosinophils Percent Auto 2.5 0 - 4 % [facility] Basophils Percent Auto 0.3 0 - 2 % [facility] NRBC Pct Auto 0.0 0.0 - 0.2 /100WBC [facility] Neutrophils Absolute Auto 1.8(L) 2.0 - 8.3 x10*3/uL [facility] Imm Gran Abs Auto 0.01 0.00 - 0.03 X10*3/uL [facility] Lymphocytes Absolute Auto 1.2 1.2 - 4.9 X10*3/uL [facility] Monocytes Absolute Auto 0.5 0.1 - 1.2 X10*3/uL [facility] Eosinophils Absolute Auto 0.1 0.0 - 0.4 X10*3/uL [facility] Basophils Absolute Auto 0.0 0.0 - 0.2 X10*3/uL [facility] NRBC Abs Auto 0.000 0.0 - 0.012 X10*3/uL [facility] 01/19/2025 10:0 2 AM EDT 01/19/2025 10:09 AM EDT us Generic External Data Provider LAB BLOOD ORDERAB LES Final Result Performing Organization Address [facility]/ZIP Co de Phone Number [facility] [address] [place] [address] [phone] * Magnesium (01/19/2025 10:02 AM EDT) Magnesium 2.1 1.6 - 2.6 mg/dL [facility] 01/19/2025 10:0 2 AM EDT 01/19/2025 10:09 AM EDT us Generic External Data Provider LAB BLOOD ORDERAB LES Final Result Performing Organization Address [facility]/ZIP Co de Phone Number [facility] [address] [place] [address] [phone] * (ABNORMAL) Comprehensive Metabolic Panel (01/19/2025 10:02 AM EDT) Sodium 142 135 - 145 mmol/L [facility] Potassium 3.9 3.3 - 5.1 mmol/L [facility] Chloride 111(H) 96 - 108 mmol/L [facility] Carbon Dioxide 25 22 - 29 mmol/L [facility] Anion Gap 10(L) 12 - 20 [facility] Urea Nitrogen (BUN) 13 9 - 16 mg/dL [facility] Creatinine, Serum 0.92 0.5 - 1.4 mg/dL [facility] Creatinine Clr Calc Pharmacy 64.0 [facility] Comment:Provided height and weight: 160.02 cm,79.379 kg.eGFR (calculated from the MDRD study equation) and eCrCl(calculated from the Cockcroft-Gault equation) are based ondifferent parameters and may not yield comparable results.If eCrCl result is absurd, please check patient'sheight/weight. Estimated Glomerular Filt Rate >60 [facility] Comment:Chronic Kidney Disea se: Estimated GFR < 60 mL/min/1.78z0Pqmpln Kidney Disease: Estimated GFR < 15 mL/min/1.73m2 Glucose 140(H) 60 - 115 mg/dL [facility] Calcium 9.1 8.4 - 10.2 mg/dL [facility] Bilirubin, Total 0.4 0.0 - 1.0 mg/dL [facility] Aspartate Amino Transferase 41(H) 5 - 31 U/L [facility] Alanine Aminotransferase 50(H) 0 - 31 U/L [facility] Total Protein 6.7 6.5 - 8.0 g/dL [facility] Albumin Level 3.7 3.5 - 5.0 g/dL [facility] Alkaline Phosphatase 134(H) 39 - 117 U/L [facility] 01/19/2025 10:0 2 AM EDT 01/19/2025 10:09 AM EDT us Generic External Data Provider LAB BLOOD ORDERAB LES Final Result [facility] [address] [place] [phone] * CT Abdomen Pelvis w/o Contrast (01/19/2025 8:43 AM EDT) Anatomical Region Laterality Modality Body, Pelvis, Abdomen Computed T omography 01/19/2025 8:43 AM EDT Narrative 01/19/2025 10:10 AM EDT [address] [address] [address] Scan Report Signed Patient: Tank Max MR#: [id number] : 1965 Acct:[id number] Age/Sex: 59 / F ADM Date: 01/19/25 Loc: HO.ED Attending Dr: Ordering Physician: Audrey Urrutia Date of Service: 01/19/25 Procedure(s): CT abdomen pelvis wo IV con Accession Number(s): [id number] cc: Audrey Urrutia; SANDRA VIEIRA NP Report Number: [id number]: Total DLP = 517.00 mGy-cm EXAMINATION: CT ABDOMEN PELVIS WITHOUT IV CONTRAST HISTORY: right flank pain rad to groin COMPARISON: Comparison is made with the prior examination dated 10/20/2024. TECHNIQUE: CT scan of the abdomen and pelvis was performed without contrast using standard departmental protocol. Coronal and sagittal reformatted images were generated and reviewed. Oral contrast material was not administered per department protocol. This CT exam was performed with one or more of the following dose reduction techniques: automated exposure control, adjustment of the mA and/or kV according to patient size, use of iterative reconstruction technique. DLP: 517 mGy-cm FINDINGS: LOWER CHEST: The visualized lung bases are clear. There is no pleural effusion. CARDIOVASCULATURE: The heart is normal in size. There is no pericardial effusion. LIVER: The liver again demonstrates a nodular contour, consistent with cirrhosis. There is a recannulized paraumbilical vein. Evaluation for masses is limited by lack of intravenous contrast material. GALLBLADDER / BILE DUCTS: The gallbladder is surgically absent. There is no intra or extrahepatic biliary ductal dilatation. SPLEEN: Spleen is enlarged. PANCREAS: The pancreas has an unremarkable unenhanced appearance. ADRENAL GLANDS: Unremarkable. KIDNEYS/RETROPERITONEUM: Again seen is a 3 mm nonobstructing calculus at the lower pole of the left kidney. No right renal calculi are identified. There is no hydronephrosis or hydroureter. No ureteral calculi are identified.. LYMPH NODES: No retroperitoneal lymphadenopathy is identified in the abdomen or pelvis. VASCULATURE: The abdominal aorta demonstrates atherosclerotic calcification, but is normal in caliber. MESENTERY/PERITONEUM: No free fluid. No masses. There is no free intraperitoneal gas. STOMACH: The stomach is collapsed, limiting evaluation. SMALL BOWEL: The small bowel is normal in caliber. COLON: The colon is unremarkable. APPENDIX: Normal. URINARY BLADDER/PELVIC ORGANS: The urinary bladder is collapsed, limiting evaluation. The uterus and ovaries have an unremarkable unenhanced appearance. BONES / SOFT TISSUES: No suspicious bony or soft tissue abnormalities. CT/CT abdomen pelvis wo IV con IMPRESSION: 1. 3 mm nonobstructing left lower pole renal calculus. No evidence of right nephrolithiasis or ureteral obstruction. 2. Cirrhosis of the liver with splenomegaly. 4. The urinary bladder is collapsed, limiting evaluation. 5. The uterus and ovaries have an unremarkable unenhanced appearance. Electronically signed by: Javier Landin MD 01/19/2025 10:06 AM EDT Dictated By: Javier Landin MD Signed By: <Electronically signed by Javier Landin MD in OV> 01/19/25 1006 DD/ 0843 TD/TT: 01/19/25 0951 Lead Level Designer: Procedure Note Donotuseinterpreter, Image - 01/19/[address] [address] [address] Scan Report Signed Patient: Barrera Max#: [id number] : 1965Acct:[id number] Age/Sex: 59 / FADM Date: 01/19/25 Loc: HO.ED Attending Dr: Ordering Physician: Audrey Urrutia Date of Service: 01/19/25 Procedure(s): CT abdomen pelvis wo IV con Accession Number(s): [id number] cc: Audrey Urrutia; SANDRA VIEIRA NP Report Number: [id number]: Total DLP = 517.00 mGy-cm EXAMINATION: CT ABDOMEN PELVIS WITHOUT IV CONTRAST HISTORY: right flank pain rad to groin COMPARISON: Comparison is made with the prior examination dated 10/20/2024. TECHNIQUE: CT scan of the abdomen and pelvis was performed without contrast using standard departmental protocol. Coronal and sagittal reformatted images were generated and reviewed. Oral contrast material was not administered per department protocol. This CT exam was performed with one or more of the following dose reduction techniques: automated exposure control, adjustment of the mA and/or kV according to patient size, use of iterative reconstruction technique. DLP: 517 mGy-cm FINDINGS: LOWER CHEST: The visualized lung bases are clear. There is no pleural effusion. CARDIOVASCULATURE: The heart is normal in size. There is no pericardial effusion. LIVER: The liver again demonstrates a nodular contour, consistent with cirrhosis. There is a recannulized paraumbilical vein. Evaluation for masses is limited by lack of intravenous contrast material. GALLBLADDER / BILE DUCTS: The gallbladder is surgically absent. There is no intra or extrahepatic biliary ductal dilatation. SPLEEN: Spleen is enlarged. PANCREAS: The pancreas has an unremarkable unenhanced appearance. ADRENAL GLANDS: Unremarkable. KIDNEYS/RETROPERITONEUM: Again seen is a 3 mm nonobstructing calculus at the lower pole of the left kidney. No right renal calculi are identified. There is no hydronephrosis or hydroureter. No ureteral calculi are identified.. LYMPH NODES: No retroperitoneal lymphadenopathy is identified in the abdomen or pelvis. VASCULATURE: The abdominal aorta demonstrates atherosclerotic calcification, but is normal in caliber. MESENTERY/PERITONEUM: No free fluid. No masses. There is no free intraperitoneal gas. STOMACH: The stomach is collapsed, limiting evaluation. SMALL BOWEL: The small bowel is normal in caliber. COLON: The colon is unremarkable. APPENDIX: Normal. URINARY BLADDER/PELVIC ORGANS: The urinary bladder is collapsed, limiting evaluation. The uterus and ovaries have an unremarkable unenhanced appearance. BONES / SOFT TISSUES: No suspicious bony or soft tissue abnormalities. CT/CT abdomen pelvis wo IV con IMPRESSION: 1. 3 mm nonobstructing left lower pole renal calculus. No evidence of right nephrolithiasis or ureteral obstruction. 2. Cirrhosis of the liver with splenomegaly. 4. The urinary bladder is collapsed, limiting evaluation. 5. The uterus and ovaries have an unremarkable unenhanced appearance. Electronically signed by: Javier Landin MD 01/19/2025 10:06 AM EDT Dictated By: Javier Landin MD Signed By: <Electronically signed by Javier Landin MD in OV> 01/19/25 1006 DD/ 0843 TD/TT: 01/19/25 0951 Lead Level Designer: [facility] External Provider IMG CT PROCEDURES Final Result * (ABNORMAL) Bacterial Vaginosis Panel (12/25/2024 11:45 AM EDT) TRICHOMONAS VAGINALIS DETECTION BY PCR NOT DETECTED Not Detect [facility] BACTERIAL VAGINOSIS DETECTION BY PCR POSITIVE(A) Negative [facility] Comment:The BV organism targ ets of the Xpert Xpress MVP test can becommensal in women; Xpert Xpress MVP positive results forbacterial vaginosis should be considered in conjunction withother clinical and patient information to determine thedisease status. Organisms that are not detected by the XpertXpress MVP test have also been reported to be associatedwith BV and aerobic vaginitis.The Xpert Xpress MVP test performance has not been evaluatedin patients under the age of 14. ELIANA GROUP DETECTION BY PCR NOT DETECTED Not Detect [facility] Eliana glab krusei PCR NOT DETECTED Not Detect [facility] Swab Vaginal structure / Unknown 12/25/2024 11:45 AM EDT 12/25/2024 4:06 PM EDT Sandra HARO LAB MICROBIOLOGY - GENERAL ORDER RAY Final Result [facility] [address] [place] [phone] * (ABNORMAL) POCT HGB A1C (12/25/2024 11:35 AM EDT) Hemoglobin A1C 7.5(A) 4.0 - 6.0 % QC Media Lot # [id number] Lot# Expiration Date Blood 12/25/2024 11:3 5 AM EDT us Sandra Vieira ANP POINT OF CARE TEST ENTER/EDIT OR DERABLES Final Result * POCT Glucose (12/25/2024 11:35 AM EDT) Glucose Blood, POC 174 60 - 200 mg/dL QC Media Lot # [id number] Lot# Expiration Date 101,425 Blood Capillary blood specimen / Unknown 12/25/2024 11:35 AM EDT us Sandra Vieira ANP POINT OF CARE TEST ENTER/EDIT OR DERABLES Final Result * BI Mammogram Screening Tomosynthesis Bilateral (07/03/2024 9:53 AM EST) Anatomical Region Laterality Modality Breast Bilateral Mammography 07/03/2024 9:53 AM EST Narrative 07/09/2024 10:57 AM EST [address] [place] [address] Mammography Report Signed Patient: Tank Max MR#: [id number] : 1965 Acct:[id number] Age/Sex: 59 / F ADM Date: 07/03/24 Loc: HO.MAMMO Attending Dr: Herminio Britton MD Ordering Physician: Herminio Britton MD Results: 1Negativ e Date of Service: 07/03/24 Follow Up: 1 Year From Orig inal Mammogram Procedure(s): MM tomosynthesis screening BI Accession Number(s): [id number] cc: SANDRA VIEIRA EPIC BEACON ANALYST; Herminio Britton MD EXAMINATION: MM SCREENING DIGITAL [...] 07/09/24 1054 DD/ 0953 TD/TT: 07/03/24 1018 Lead Level Designer: Procedure Note Donotuseinterpreter, Image - 07/09/2024 [facility] [address] [place] [address] Mammography Report Signed Patient: Barrera Max#: [id number] : 1965Acct:[id number] Age/Sex: 59 / FADM Date: 07/03/24 Loc: HO.MAMMO Attending Dr: Herminio Britton MD Ordering Physician: Herminio Britton MDResults: 1Negativ e Date of Service: 07/03/24Follow Up: 1 Year From Orig inal Mammogram Procedure(s): MM tomosynthesis screening BI Accession Number(s): [id number] cc: SANDRA VIEIRA NP; Herminio Britton MD [...] 07/09/24 1054 DD/ 0953 TD/TT: 07/03/24 1018 Lead Level Designer: [facility] External Provider IMG BI PROCEDURES Edited Result - Final * Pap Smear (06/17/2024 10:30 AM EST) 06/17/2024 10:3 0 AM EST 06/18/2024 9:15 AM EST [facility] - 06/20/2024 9:28 AM EST ----- ------- Name: Tank Max Age/Sex: 59/F : 1965 Unit#: [id number] Attend Dr: Herminio Britton MD Re06/17/24 Status: DEP REF Location: [facility] Disch: ----- ------- SPEC : [id number] RECD: 06/18/24 STATUS: MARCELINO CHAMBERS NUM: [id number] MILY: 06/17/[address] [facility] [address]: Herminio Britton MD ENTERED: 06/18/241 SP TYPE: Pap Smr OTHR DR: SANDRA VIEIRA NP ORDERED: Pap Smear Interpretation Satisfactory for evaluation. Negative for intraepithelial lesion or malignancy. No endocervical cells seen. HPV High Risk: Negative HPV Genotyping 16: Negative HPV Genotyping 18: Negative Clinical Information LMP: Postmenopausal Previous PAP test: Unknown date/findings Material Received ThinPrep-Cervical Copies To: SANDRA VIEIRA NP [address] [place] [address] Herminio Britton MD [facility] [address] [facility] [address] [place] [address] ----- ------- Signed (signature on file) AVELINO Romero (ASC) 06/20/24 0928 ----- ------- END OF REPORT Generic External Data Provider LAB CYTOLOGY ORDE RABLES Final Result Performing Organization Address City/[facility]/ZIP Co de Phone Number [facility] [address] [place] [phone] * HPV mRNA E6/E7 w/Reflex to HPV Genotypes 16, 18/45 (06/17/2024 12:00 AM EST) Historical Provider LAB CYTOLOGY ORDERABLES F inal Result Performing Organization Address [facility] Co de Phone Number [facility] [address] [place] [phone] * HIV-1/2 Antigen and Antibodies, Fourth Generation, with Reflexes (03/24/2024 3:20 PM EDT) Pathologist [facility] HIV AB/AG Nonreactive Nonreactive [facility] Comment:HIV-1 p24 Ag and/or HIV-1/HIV-2 Ab not detected.A test result that is nonreactive does not exclude thepossibility of exposure to or infection with HIV-1 and/orHIV-2. Nonreactive results in this assay for individualswith prior exposure to HIV-1 and/or HIV-2 may be due toantigen and antibody levels that are below the limit ofdetection of this assay.The Red Cond[employer] HIV Ag/Ab Combo assay result andsupplemental assay results should be interpreted inconjunction with the patient's clinical presentation,history and other laboratory results. If the results areinconsistent with clinical evidence, additional testing issuggested to confirm the result. 03/24/2024 3:20 PM EDT 03/24/2024 3:20 PM EDT Generic External Data Provider LAB BLOOD ORDERAB LES Final Result Performing Organization Address [facility] Co de Phone Number [facility] [address] [place] [phone] * (ABNORMAL) Albumin, Random Urine W/Creatinine (05/01/2023 11:30 AM EDT) Pathologist [facility] Creatinine, Urine 302.38 mg/dL [facility] Microalbumin Urine 107.0 mg/L H [facility] Microalbum Creatinine Ratio Ur 35.3(H) <30 ug/mg cr [facility] Comment:Albumin/Creatinine R atio Reference Ranges: Normal: < 30 ug/mg creatinine Microalbuminuria: 30 - 300 ug/mg creatinineClinical Albuminuria: > 300 ug/mg creatinine Urine (Urine, Random) 05/01/2023 11:30 AM EDT 05/01/2023 1:17 PM EDT us Sandra Vieira [facility] LAB URINE ORDERABLES Final Resul t [facility] [address] [place] [phone] * (ABNORMAL) Lipid Panel, Standard (05/01/2023 11:30 AM EDT) Triglycerides 189(H) <150 mg/dL [facility] Comment:Desirable Triglyceri de: less than 150 mg/dLBorderline High Triglyceride 150-199 mg/dLHigh Triglyceride: 200-499 mg/dLVery High Triglyceride: greater than or equal to 5OO mg/dL Cholesterol 188 <200 mg/dL [facility] Comment:Desirable Cholestero l: less than 200 mg/dLBorderline High Cholesterol: 200-239 mg/dLHigh Cholesterol: greater than 239 mg/dL LDL Cholesterol Calculated 98 <100 mg/dL [facility] Comment:Desirable LDL: less than 100 mg/dLNear Optimal/Above Optimal LDL: 110- 129 mg/dLBorderline High LDL: 130-159 mg/dLHigh LDL: 160-189 mg/dLVery High LDL: greater than or equal to 190 mg/dL HDL Cholesterol 53 >40 mg/dL [facility] Comment:Desirable HDL: great er than 40 mg/dL Note: This HDL assay may give artificially low results in patients with liver disease. Blood Venous blood specimen / Unknown 05/01/2023 11:30 AM EDT 05/01/2023 1:23 PM EDT Sandra HARO LAB BLOOD ORDERABLES Final Resul t [facility] [address] [place] [phone] [phone] from Last 3 Months or Most Recently Relevant to Health Maintenance Insurance [address] [place] [phone] [facility] [address] [place] [phone] [place] [phone] [place] [phone] Care Teams Supply Teacher Relationship Specialty Start Date End Date Sandra Vieira ANP [address] [place] [address] PCP - General Family Medicine 09/03/20 April Michele MD [address] [facility] [address] [place] [address] Referring Physician Infectious Diseases 10/09/24 Lee Hubbard MD [address] [place] [address] Urology 10/09/24 [facility] cardiology 11/12/23
--- OUTSIDE RECORDS SUMMARY | 2025-03-26 14:32 | XMS_ITS | Encounter Summary ---
Author Organization [employer] Address [address] [place] [address] [address] [place] [address] Care Team Providers Care Hotel Yardperson Name Role Phone Wanda Bonilla Primary Care Provider Rajni García RN Unavailable [phone] April Michele MD Unavailable [phone] Lee Hubbard MD Unavailable [phone] Reason for Visit * Reason Onset Date Comments Referral 08/30/2022 Encounter Details Date Type Department Care Team ([facility] st Contact Info) Description 08/30/2022 Telephone [facility] [address] [place], [place] [phone] Wanda Bonilla ANP [address] [place], [place] [phone] Referral Social History Tobacco Use Types Packs/Day [...] see a neurologist Please contact pt at [phone] documented in this encounter Plan of Treatment Upcoming Encounters Date Type Department Care Team (Late st Contact Info) Description 04/02/2025 2:30 PM EDT Office Visit [facility] [address] [place] [address] Wanda Bonilla ANP [address] [place] [address] 04/20/2025 2:30 PM EDT Office Visit [facility] [address] [place] [address] Tyler, Smiley, OD [address] [place] [address] documented as of this encounter Visit Diagnoses Not on filedocumented in this encounter Additional Health Concerns Assessment Noted Time PHQ-9 Depression Total Score: 0 08/25/19 23 1:48 PM EST documented as of this encounter Care Teams Hotel Yardperson Relationship Specialty Start Date End Date Wanda Bonilla ANP [address] [place] [address] PCP - General Family Medicine 09/03/20 Rajni García, TIM [address] [place] [address] Seam Press OperatorDecision Support Manager 09/18/24 12/15/24 April Michele MD [address] [place] [address] Referring Physician Infectious Diseases 10/09/24 Lee Hubbard MD [address] [place] [address] Urology 10/09/24 [facility] cardiology 11/12/23 documented as of this encounter
--- OUTSIDE RECORDS SUMMARY | 2025-03-26 14:32 | XMS_ITS | Encounter Summary ---
Author Organization [employer] Address [address] [facility] [address] [place] [address] Care Team Providers Care Word Processing Machine Operator Name Role Phone Irene Wanda HARO Primary Care Provider [phone] Rajni García RN Unavailable [phone] April Michele MD Unavailable [phone] Lee Hubbard MD Unavailable [phone] Reason for Visit * Reason Comments Med Refill Encounter Details Date Type Department Care Team (Late st Contact Info) Description 03/14/2024 Refill [facility] [address] [place] [address] Shivani Small CNM [address] [place], [place] [phone] Social History Tobacco Use Types Packs/Day Years [...] Description 04/02/2025 2:30 PM EDT Office Visit [facility] [address] [place] [address] Wanda Bonilla ANP [address] [place] [address] 04/20/2025 2:30 PM EDT Office Visit [facility] OPTOMETRY [address] [place] [address] Tyler, Smiley, OD [address] [place] [address] documented as of this encounter Visit Diagnoses Not on filedocumented in this encounter Additional Health Concerns Assessment Noted Time PHQ-9 Depression Total Score: 5 11/23/19 24 1:33 PM EDT documented as of this encounter Care Teams Word Processing Machine Operator Relationship Specialty Start Date End Date Wanda Bonilla ANP [address] [place] [address] PCP - General Family Medicine 09/03/20 Rajni García RN [address] [place] [phone] Lactation ConsultantWire Tester 09/18/24 12/15/24 April Michele MD [address] [facility] [address] [place] [address] Referring Physician Infectious Diseases 10/09/24 Lee Hubbard MD [address] [facility] [address] [place] [address] Urology 10/09/24 [facility] cardiology 11/12/23 documented as of this encounter
--- OUTSIDE RECORDS SUMMARY | 2025-03-26 14:32 | XMS_ITS | Encounter Summary ---
Author Organization [employer] Address 75 [facility] 7t [place] [address] Care Team Providers Care Mail Handlers Supervisor Name Role Phone Wanda Bonilla Primary Care Provider [phone] Rajni García RN Unavailable [phone] April Michele MD Unavailable [phone] Lee Hubbard MD Unavailable [phone] Reason for Visit * Reason Onset Date Comments Returning Call 01/08/2024 Encounter Details Date Type Department Care Team (Late st Contact Info) Description 01/08/2024 Telephone [facility] MEDICINE [address] [place], [place] [phone] Wanda Bonilla ANP 230 [place], [place] [phone] Returning Call Social History Tobacco Use Types [...] pt stated she received a call from rn care manager regarding new program in [facility], software writer did not see anything documented but advised will forward message. documented in this encounter Plan of Treatment Upcoming Encounters Date Type Department Care Team (Late st Contact Info) Description 04/02/2025 2:30 PM EDT Office Visit [facility] MEDICINE 230 [place] [address] Wanda Bonilla, ANP 230 [place] [address] 04/20/2025 2:30 PM EDT Office Visit [facility] OPTOMETRY [address] [place], [place] [phone] Smiley Scott OD 230 [place] [address] documented as of this encounter Visit Diagnoses Not on filedocumented in this encounter Additional Health Concerns Assessment Noted Time PHQ-9 Depression Total Score: 5 11/23/19 24 1:33 PM EDT documented as of this encounter Care Teams Mail Handlers Supervisor Relationship Specialty Start Date End Date Wanda Bonilla ANP 230 [place] [address] PCP - General Family Medicine 09/03/20 Rajni García, TIM [address] [place] [address] Engineer ConductorSupervisor Endless Track Vehicle 09/18/24 12/15/24 April Michele MD [address] [facility] [address] [place] [address] Referring Physician Infectious Diseases 10/09/24 Lee Hubbard MD [address] [place] [address] Urology 10/09/24 [facility] cardiology 11/12/23 documented as of this encounter
--- OUTSIDE RECORDS SUMMARY | 2025-03-26 14:32 | XMS_ITS | Encounter Summary ---
Author Organization [employer] Address 75 [facility] 7t [place] [address] Care Team Providers Care Pulpit Operator Name Role Phone Irene Wanda HARO Primary Care Provider [phone] Rajni García RN Unavailable [phone] April Michele MD Unavailable [phone] Lee Hubbard MD Unavailable [phone] Reason for Visit * Reason Comments Med Refill Encounter Details Date Type Department Care Team (Late st Contact Info) Description 03/20/2024 Refill [facility] MEDICINE 230 [place] [address] Shivani Small CNM 230 [place], [place] [phone] Social History Tobacco Use Types Packs/Day Years [...] Description 04/02/2025 2:30 PM EDT Office Visit [facility] MEDICINE 230 [place] [address] Wanda Bonilla ANP 230 [place] [address] 04/20/2025 2:30 PM EDT Office Visit [facility] OPTOMETRY [address] [place] [address] Tyler, Smiley, OD 230 [place] [address] documented as of this encounter Visit Diagnoses Not on filedocumented in this encounter Additional Health Concerns Assessment Noted Time PHQ-9 Depression Total Score: 5 11/23/19 24 1:33 PM EDT documented as of this encounter Care Teams Pulpit Operator Relationship Specialty Start Date End Date Wanda Bonilla ANP 230 [place] [address] PCP - General Family Medicine 09/03/20 Rajni García RN [address] [place] [address] [employer] Sales Consultant 09/18/24 12/15/24 April Michele MD [address] [facility] [address] [place] [address] Referring Physician Infectious Diseases 10/09/24 Lee Hubbard MD [address] [facility] [address] [place] [address] Urology 10/09/24 [facility] cardiology 11/12/23 documented as of this encounter
--- OUTSIDE RECORDS SUMMARY | 2025-03-26 14:32 | XMS_ITS | Encounter Summary ---
Author Organization [employer] Address [address] [place] [address] 7t [place] [address] Care Team Providers Care Pyrometer Temperature Regulator Name Role Phone Wanda Bonilla Primary Care Provider Rajni García RN Unavailable [phone] April Michele MD Unavailable [phone] Lee Hubbard MD Unavailable Reason for Visit * Reason Onset Date Comments triage 07/13/2022 Encounter Details Date Type Department Care Team (Late st Contact Info) Description 07/13/2022 Telephone [facility] MEDICINE 230 [place] [address] Wanda Bonilla ANP 230 [place], [place] [phone] triage Social History Tobacco Use Types Packs/Day [...] caller The caller accepted this outcome speaks estonian documented in this encounter Plan of Treatment Upcoming Encounters Date Type Department Care Team (Late st Contact Info) Description 04/02/2025 2:30 PM EDT Office Visit [facility] MEDICINE 230 [place] [address] Wanda Bonilla ANP 230 [place] [address] 04/20/2025 2:30 PM EDT Office Visit [facility] OPTOMETRY [address] [place] [address] Tyler, Smiley, OD 230 [place] [address] documented as of this encounter Visit Diagnoses Not on filedocumented in this encounter Care Teams Pyrometer Temperature Regulator Relationship Specialty Start Date End Date Wanda Bonilla ANP 230 [place] [address] PCP - General Family Medicine 09/03/20 Rajni García RN 505 [place] [address] Patching Machine OperatorPlugging Machine Operator 09/18/24 12/15/24 April Michele MD [address] [facility] [address] [place] [address] Referring Physician Infectious Diseases 10/09/24 eLe Hubbard MD [address] [place] [address] Urology 10/09/24 [facility] cardiology 11/12/23 documented as of this encounter
--- OUTSIDE RECORDS SUMMARY | 2025-03-26 14:32 | XMS_ITS | Encounter Summary ---
Author Organization [employer] Address 75 [facility] 7t [place] [address] Care Team Providers Care Melting Supervisor Name Role Phone Wanda Bonilla Primary Care Provider Rajni García RN Unavailable [phone] April Michele MD Unavailable [phone] Lee Hubbard MD Unavailable [phone] Reason for Visit * Reason Onset Date Comments Hospital Follow-up 11/15/2023 Encounter Details Date Type Department Care Team (Late st Contact Info) Description 11/15/2023 Telephone [facility] MEDICINE 230 [place], [place] [phone] Wanda Bonilla ANP 230 [place], [place] [phone] Hospital Follow-up Social History Tobacco Use Types [...] from pt requesting a HDF appt. Hospital: [facility] Date of admission: 11/09 Discharge date: 11/13 Diagnosed: Neuropathy documented in this encounter Plan of Treatment Upcoming Encounters Date Type Department Care Team (Late st Contact Info) Description 04/02/2025 2:30 PM EDT Office Visit [facility] MEDICINE 230 [place] [address] Wanda Bonilla ANP 230 [place] [address] 04/20/2025 2:30 PM EDT Office Visit [facility] OPTOMETRY [address] [place] [address] Tyler, Smiley, OD 230 [place] [address] documented as of this encounter Visit Diagnoses Not on filedocumented in this encounter Additional Health Concerns Assessment Noted Time PHQ-9 Depression Total Score: 0 08/25/19 23 1:48 PM EST documented as of this encounter Care Teams Melting Supervisor Relationship Specialty Start Date End Date Wanda Bonilla ANP 230 [place] [address] PCP - General Family Medicine 09/03/20 Rajni García, RN 505 [place] [address] Hose TesterCenter Sales And Service Associate 09/18/24 12/15/24 April Michele MD [address] [place] [address] 404 [place] [address] Referring Physician Infectious Diseases 10/09/24 Lee Hubbard MD [address] [place] [address] Urology 10/09/24 [facility] cardiology 11/12/23 documented as of this encounter
--- OUTSIDE RECORDS SUMMARY | 2025-03-26 14:32 | XMS_ITS | Encounter Summary ---
Author Organization [employer] Address [address] [place] [address] 7t h Floor [place] [phone] Care Team Providers Care Mender Knit Goods Name Role Phone Irene Wanda HARO Primary Care Provider Rajni García RN Unavailable [phone] April Michele MD Unavailable [phone] Lee Hubbard MD Unavailable [phone] Reason for Visit * Reason Comments Med Refill Encounter Details Date Type Department Care Team (Late Contact Info) Description 04/03/2023 Refill [facility] MEDICINE [address] [place] [address] Brenda Lopez MD [address] [place] [address] Social History Tobacco Use Types Packs/Day Years [...] Department Care Team (Late Contact Info) Description 04/02/2025 2:30 PM EDT Office Visit [facility] MEDICINE 230 [place] [address] Wanda Bonilla ANP [address] [place] [address] 04/20/2025 2:30 PM EDT Office Visit [facility] OPTOMETRY [address] [place] [address] Tyler, Smiley, OD 230 [place] [address] documented as of this encounter Visit Diagnoses Not on filedocumented in this encounter Additional Health Concerns Assessment Noted Time PHQ-9 Depression Total Score: 0 08/25/19 23 1:48 PM EST documented as of this encounter Care Teams Mender Knit Goods Relationship Specialty Start Date End Date Wanda Bonilla ANP [address] [place] [address] PCP - General Family Medicine 09/03/20 Rajni García, TIM 505 [place] [address] Attendant Coin Operated LaundryCatering Driver 09/18/24 12/15/24 April Michele MD [address] [facility] [address] [place] [address] Referring Physician Infectious Diseases 10/09/24 Lee Hubbard MD [address] [place] [address] Urology 10/09/24 [facility] cardiology 11/12/23 documented as of this encounter
--- OUTSIDE RECORDS SUMMARY | 2025-03-26 14:32 | XMS_ITS | Encounter Summary ---
Author Organization [employer] Address [address] [place] [address] 7t [place] [address] Care Team Providers Care Weight Checker Name Role Phone Wanda Bonilla Primary Care Provider [phone] Rajni García RN Unavailable [phone] April Michele MD Unavailable [phone] Lee Hubbard MD Unavailable [phone] Encounter Details Date Type Department Care Team (Late st Contact Info) Description 08/09/2022 Orders Only [facility] MEDICINE [address] [place] [address] Shanna Lopez LPN Social History Tobacco Use [...] Description 04/02/2025 2:30 PM EDT Office Visit [facility] MEDICINE [address] [place] [phone] Wanda Bonilla ANP 230 [place] [address] 04/20/2025 2:30 PM EDT Office Visit [facility] OPTOMETRY [address] [place] [address] Smiley Scott, OD 230 [place] [address] documented as of this encounter Visit Diagnoses Not on filedocumented in this encounter Care Teams Weight Checker Relationship Specialty Start Date End Date Wanda Bonilla ANP 230 [place] [address] PCP - General Family Medicine 09/03/20 Rajni García, TIM 505 [place] [address] Analytical Laboratory TechnicianCommunity Arts Officer 09/18/24 12/15/24 April Michele MD [address] [place] [facility] [address] [place] [address] Referring Physician Infectious Diseases 10/09/24 Lee Hubbard MD [address] [place] [address] Urology 10/09/24 [facility] cardiology 11/12/23 documented as of this encounter
--- OUTSIDE RECORDS SUMMARY | 2025-03-26 14:32 | XMS_ITS | Encounter Summary ---
Author Organization [employer] Address [address] [facility] 7t [place] [address] Care Team Providers Care Money Manager Name Role Phone Irene Wanda HARO Primary Care Provider [phone] Rajni García RN Unavailable [phone] April Michele MD Unavailable [phone] Lee Hubbard MD Unavailable [phone] Reason for Visit * Reason Comments Med Refill Encounter Details Date Type Department Care Team ([facility] st Contact Info) Description 12/03/2023 Telephone [facility] MEDICINE 230 [place] [address] Shelli Vo MD 230 [place], [place] [phone] Med Refill Social History Tobacco Use Types [...] Description 04/02/2025 2:30 PM EDT Office Visit [facility] MEDICINE 230 [place] [address] Wanda Bonilla, TAHIR 230 [place] [address] 04/20/2025 2:30 PM EDT Office Visit [facility] OPTOMETRY [address] [place] [address] Smiley Scott, OD 230 [place] [address] documented as of this encounter Visit Diagnoses Diagnosis Asthma, unspecified asthma severity, unspecified whether complicated, unspecified whether persistent documented in this encounter Additional Health Concerns Assessment Noted Time PHQ-9 Depression Total Score: 5 11/23/19 24 1:33 PM EDT documented as of this encounter Care Teams Money Manager Relationship Specialty Start Date End Date Wanda Bonilla ANP 230 [place] [address] PCP - General Family Medicine 09/03/20 Rajni García RN 505 [place] [address] Contact AgentPhysician Aide 09/18/24 12/15/24 April Michele MD [address] [facility] [address] [place] [address] Referring Physician Infectious Diseases 10/09/24 Lee Hubbard MD [address] [place] [address] Urology 10/09/24 [facility] cardiology 11/12/23 documented as of this encounter
--- OUTSIDE RECORDS SUMMARY | 2025-03-26 14:33 | XMS_ITS | Encounter Summary ---
Author Organization [employer] Address [address] [facility] 7t [place] [address] Care Team Providers Care Concrete Craftsman Name Role Phone Wanda Bonilla Primary Care Provider [phone] April Michele MD Unavailable [phone] Lee Hubbard MD Unavailable [phone] Reason for Visit * Reason Onset Date Comments Referral 01/02/2025 Encounter Details Date Type Department Care Team (Late st Contact Info) Description 01/02/2025 Telephone [facility] MEDICINE 230 [place] [address] Wanda Bonilla ANP 230 [place] [address] Referral Social History Tobacco Use Types Packs/Day [...] * Telephone Encounter - Antonio Haddad - 01/02/2025 9:34 AM EDT Tc from pt requesting to change location of referral for [facility] [place] [facility]. Pt would like a call back to confirm. Please contact pt at [phone]. documented in this encounter Plan of Treatment Upcoming Encounters Date Type Department Care Team (Late st Contact Info) Description 04/02/2025 2:30 PM EDT Office Visit [facility] MEDICINE 230 [place] [address] Wanda Bonilla ANP 230 [place] [address] 04/20/2025 2:30 PM EDT Office Visit [facility] OPTOMETRY [address] [place] [address] Smiley Scott, OD 230 [place] [address] documented as of this encounter Visit Diagnoses Not on filedocumented in this encounter Additional Health Concerns Assessment Noted Time PHQ-9 Depression Total Score: 5 11/23/19 24 1:33 PM EDT documented as of this encounter Care Teams Concrete Craftsman Relationship Specialty Start Date End Date Wanda Bonilla ANP 230 [place] [address] PCP - General Family Medicine 09/03/20 April Michele MD [address] [facility] [address] [place] [address] Referring Physician Infectious Diseases 10/09/24 Lee Hubbard MD [address] [place] [address] Urology 10/09/24 [facility] cardiology 11/12/23 documented as of this encounter
--- OUTSIDE RECORDS SUMMARY | 2025-03-26 14:33 | XMS_ITS | Encounter Summary ---
Author Organization [employer] Address [address] [facility] [address] 7t [place] [address] Care Team Providers Care Slot Machine Key Person Name Role Phone Wanda Bonilla Primary Care Provider [phone] Rajni García RN Unavailable [phone] April Michele MD Unavailable [phone] Lee Hubbard MD Unavailable [phone] Encounter Details Date Type Department Care Team (Late st Contact Info) Description 09/26/2023 Telephone [facility] MEDICINE 230 [place] [address] Wanda Bonilla ANP 230 [place] [address] Social History Tobacco Use Types Packs/Day Years [...] Description 04/02/2025 2:30 PM EDT Office Visit [facility] MEDICINE 230 [place] [address] Wanda Bonilla ANP [address] [place] [address] 04/20/2025 2:30 PM EDT Office Visit [facility] OPTOMETRY [address] [place] [address] Tyler, Smiley, OD 230 [place] [address] documented as of this encounter Visit Diagnoses Not on filedocumented in this encounter Additional Health Concerns Assessment Noted Time PHQ-9 Depression Total Score: 0 08/25/19 23 1:48 PM EST documented as of this encounter Care Teams Slot Machine Key Person Relationship Specialty Start Date End Date Wanda Bonilla ANP 230 [place] [address] PCP - General Family Medicine 09/03/20 Rajni García, RN 505 [place] [address] Manager AutomotiveMachines Technician 09/18/24 12/15/24 April Michele MD [address] [facility] [address] [place] [address] Referring Physician Infectious Diseases 10/09/24 Lee Hubbard MD [address] [place] [address] Drive [address] [place] [address] Urology 10/09/24 [facility] cardiology 11/12/23 documented as of this encounter
--- OUTSIDE RECORDS SUMMARY | 2025-03-26 14:33 | XMS_ITS | Clinical Summary ---
Author Organization [facility] Address [address] [place] [address] Phone Care Team Providers Care Making Machine Catcher Name Role Phone Regina Su ADRIANNE Primary [...] DM2 (diabetes mellitus, type 2) (CMS/HCC V24, CM S/HCC V28) Hepatitis C Hyperlipidemia LDL goal <70 Hypertension Obesity Encounters Date Type Department Care Team Description 12/31/2024 3:15 PM EDT - 12/31/2024 11:59 PM EDT Hospital Encounter [facility] MRI [address] [place] [address] Mass of left foot Discharge Disposition: Home or Self Care from Last 3 Months Social History Tobacco [...] 6:37 PM EDT Mass of left foot from Last 3 Months Results * MR [...] Signed Date: 01/01/2025 03:40 ET Workstation ID: [id number] Transcribed By: Self Edit Transcribed Date: 01/01/2025 [...] Signed Date: 01/01/2025 03:40 ET Workstation ID: [id number] Transcribed By: Self Edit Transcribed Date: 01/01/2025 03:23 ET us Mario Robbins DPM IMG MRI PROCEDURES Final Result from Last 3 Months Insurance MEDICAID - [place] Care Teams Making Machine Catcher Relationship Specialty Start Date End Date Regina Su FNP [address] [place] [address] PCP - General Nurse Practitioner 07/11/24
--- OUTSIDE RECORDS SUMMARY | 2025-03-26 14:33 | XMS_ITS | Encounter Summary ---
Author Organization [employer] Address [address] [facility] [address] 7t [place] [address] Care Team Providers Care Manager Embalmer Funeral Director Name Role Phone Irene Wanda HARO Primary Care Provider [phone] Rajni García RN Unavailable [phone] April Michele MD Unavailable [phone] Lee Hubbard MD Unavailable [phone] Encounter Details Date Type Department Care Team (Late st Contact Info) Description 11/25/2024 Orders Only [facility] MED & PEDS [address] [place] [address] Dina Crawford Social History Tobacco Use Types [...] 2:30 PM EDT Office Visit [facility] MEDICINE 230 [place] [address] Wanda Bonilla, ANP 230 [place] [address] 04/20/2025 2:30 PM EDT Office Visit [facility] OPTOMETRY [address] [place] [address] Tyler, Smiley, OD 230 [place] [address] documented as of this encounter Procedures Procedure Name Priority Date/Time Associated Diagnosis Comments HPV MRNA E6/E7 REFLEX TO HPV 16, 18/45 Routine 06/17/2024 12:00 AM EST documented in this encounter Results * HPV mRNA E6/E7 w/Reflex to HPV Genotypes 16, 18/45 (06/17/2024 12:00 AM EST) us Historical Provider LAB CYTOLOGY ORDERABLES F inal Result [facility] [address] [place] [address] [phone] documented in this encounter Visit Diagnoses Not on filedocumented in this encounter Additional Health Concerns Assessment Noted Time PHQ-9 Depression Total Score: 5 11/23/19 24 1:33 PM EDT documented as of this encounter Care Teams Manager Embalmer Funeral Director Relationship Specialty Start Date End Date Wanda Bonilla ANP 230 [place] [address] PCP - General Family Medicine 09/03/20 Rajni García RN 505 [place] [address] Development EngPaper Maker 09/18/24 12/15/24 April Michele MD [address] [facility] [address] [place] [address] Referring Physician Infectious Diseases 10/09/24 Lee Hubbard MD [address] [place] [address] Urology 10/09/24 [facility] cardiology 11/12/23 documented as of this encounter
--- OUTSIDE RECORDS SUMMARY | 2025-03-26 14:33 | XMS_ITS | Encounter Summary ---
Author Organization [employer] Address [address] [facility] 7t [place] [address] Care Team Providers Care High Lead Yarder Name Role Phone Wanda Bonilla Primary Care Provider [phone] April Michele MD Unavailable [phone] Lee Hubbard MD Unavailable [phone] Reason for Visit * Reason Onset Date Comments Referral 01/06/2025 Encounter Details Date Type Department Care Team (Late st Contact Info) Description 01/06/2025 Telephone [facility] MEDICINE 230 [place] [address] Wanda Bonilla ANP 230 [place] [address] Referral Social History Tobacco Use Types Packs/Day [...] encounter Miscellaneous Notes * Telephone Encounter - TAHIR Garcia - 01/26/2025 1:53 PM EDT Oh! Ok - yes, I will have to make a new one * Telephone Encounter - TAHIR Garcia - 01/26/2025 12:41 PM EDT Thanks - can you check with [facility]? I would think if they saw pt w/in last year she would be ok to cont care there. * Telephone Encounter - Antonio Haddad - 01/06/2025 9:01 AM EDT Tc from pt requesting OBGYN referral with [facility]. If any questions you can contact pt at [phone]. (Czech Speaker) documented in this encounter Plan of Treatment Upcoming Encounters Date Type Department Care Team ([facility] st Contact Info) Description 04/02/2025 2:30 PM EDT Office Visit [facility] MEDICINE 230 [place] [address] Wanda Bonilla ANP 230 [place] [address] 04/20/2025 2:30 PM EDT Office Visit [facility] OPTOMETRY [address] [place] [address] Tyler, Smiley, OD 230 [place] [address] documented as of this encounter Visit Diagnoses Not on filedocumented in this encounter Additional Health Concerns Assessment Noted Time PHQ-9 Depression Total Score: 5 11/23/19 24 1:33 PM EDT documented as of this encounter Care Teams High Lead Yarder Relationship Specialty Start Date End Date Wanda Bonilla ANP 230 [place] [address] PCP - General Family Medicine 09/03/20 April Michele MD [address] [facility] [address] [place] [address] Referring Physician Infectious Diseases 10/09/24 Lee Hubbard MD [address] [place] [address] Urology 10/09/24 [facility] cardiology 11/12/23 documented as of this encounter
== END 2025-03-26 15:47 | disposition home or self-care (01) ==
LOC: HO.HUSH 13:48
PROVIDERS: PCP Nurse Practitioner Primary Care; Visit Provider Urology
DX: Z13.9 Encounter for screening, unspecified (principal); N20.0 Calculus of kidney
CPT/HCPCS: 99213

== ENCOUNTER → 2025-03-26 13:47 | Outpatient (BNVA) | payer MEDICAID, SELFPAY | PROVIDERS: PCP Nurse Practitioner Primary Care; Visit Provider Urology | DX: N20.0 Calculus of kidney (principal) | CPT/HCPCS: 81003; 99212 ==

== ENCOUNTER 2025-03-31 06:12 | Outpatient (REF) | payer MEDICAID, SELFPAY ==
--- OUTSIDE RECORDS SUMMARY | 2025-03-31 06:16 | XMS_ITS | Encounter Summary ---
Author Organization [employer] Address [address] [place] [address] 7t [place] [address] Care Team Providers Care Wall Crane Operator Name Role Phone Wanda Bonilla Primary Care Provider Rajni García RN Unavailable [phone] April Michele MD Unavailable [phone] Lee Hubbard MD Unavailable [phone] Reason for Visit * Reason Comments Med Refill Encounter Details Date Type Department Care Team (Late st Contact Info) Description 01/11/2023 Refill [facility] [address] [place] [address] Wanda Bonilla ANP 230 [place] [address] Social History Tobacco Use Types Packs/Day Years [...] EDT Office Visit [facility] 230 [place] [address] Wanda Bonilla ANP [address] [place] [address] 04/20/2025 2:30 PM EDT Office Visit [facility] [address] [place] [address] Tyler, Smiley, OD 230 [place] [address] documented as of this encounter Visit Diagnoses Not on filedocumented in this encounter Additional Health Concerns Assessment Noted Time PHQ-9 Depression Total Score: 0 08/25/19 23 1:48 PM EST documented as of this encounter Care Teams Wall Crane Operator Relationship Specialty Start Date End Date Wanda Bonilla ANP [address] [place] [address] PCP - General Family Medicine 09/03/20 Rajni García, TIM [address] [place] [address] Agricultural Research EngineerBuncher Hand 09/18/24 12/15/24 April Michele MD [address] [facility] [address] [place] [address] Referring Physician Infectious Diseases 10/09/24 Lee Hubbard MD [address] [place] [address] Urology 10/09/24 [facility] cardiology 11/12/23 documented as of this encounter
--- OUTSIDE RECORDS SUMMARY | 2025-03-31 06:16 | XMS_ITS | Encounter Summary ---
Author Organization [employer] Address [address] [facility] 7t [place] [address] Care Team Providers Care Size Changer Name Role Phone Irene Wanda HARO Primary Care Provider Rajni García RN Unavailable [phone] April Michele MD Unavailable [phone] Lee Hubbard MD Unavailable [phone] Reason for Visit * Reason Comments Med Refill Encounter Details Date Type Department Care Team (Late st Contact Info) Description 03/20/2024 Refill [facility] 230 [place] [address] Shivani Small CNM 230 [place], [place] [phone] Social History Tobacco Use Types Packs/Day Years [...] Description 04/02/2025 2:30 PM EDT Office Visit [facility] 230 [place] [address] Wanda Bonilla ANP 230 [place] [address] 04/20/2025 2:30 PM EDT Office Visit [facility] [address] [place] [address] Tyler, Smiley, OD 230 [place] [address] documented as of this encounter Visit Diagnoses Not on filedocumented in this encounter Additional Health Concerns Assessment Noted Time PHQ-9 Depression Total Score: 5 11/23/19 24 1:33 PM EDT documented as of this encounter Care Teams Size Changer Relationship Specialty Start Date End Date Wanda Bonilla ANP [address] [place] [address] PCP - General Family Medicine 09/03/20 Rajni García RN [address] [place] [address] Energy Conservation DirectorBooth Operator 09/18/24 12/15/24 April Michele MD [address] [facility] [address] [place] [address] Referring Physician Infectious Diseases 10/09/24 Lee Hubbard MD [address] [facility] [address] [place] [address] Urology 10/09/24 [facility] cardiology 11/12/23 documented as of this encounter
--- OUTSIDE RECORDS SUMMARY | 2025-03-31 06:16 | XMS_ITS | Encounter Summary ---
Author Organization [employer] Address [address] [facility] 7t [place] [address] Care Team Providers Care Decision Science Analyst Name Role Phone Irene Wanda HARO Primary Care Provider [phone] Rajni García RN Unavailable [phone] April Michele MD Unavailable [phone] Lee Hubbard MD Unavailable [phone] Reason for Visit * Reason Comments Med Refill Encounter Details Date Type Department Care Team ([facility] st Contact Info) Description 12/03/2023 Telephone [facility] 230 [place] [address] Shelli Vo MD 230 [place], [place] [phone] Med Refill Social History Tobacco Use Types [...] Description 04/02/2025 2:30 PM EDT Office Visit [facility] 230 [place] [address] Wanda Bonilla, TAHIR 230 [place] [address] 04/20/2025 2:30 PM EDT Office Visit [facility] [address] [place] [address] Smiley Scott, OD 230 [place] [address] documented as of this encounter Visit Diagnoses Diagnosis Asthma, unspecified asthma severity, unspecified whether complicated, unspecified whether persistent documented in this encounter Additional Health Concerns Assessment Noted Time PHQ-9 Depression Total Score: 5 11/23/19 24 1:33 PM EDT documented as of this encounter Care Teams Decision Science Analyst Relationship Specialty Start Date End Date Wanda Bonilla ANP 230 [place] [address] PCP - General Family Medicine 09/03/20 Rajni García RN [address] [place] [address] Hammerer HelperIlluminator 09/18/24 12/15/24 April Michele MD [address] [facility] [address] [place] [address] Referring Physician Infectious Diseases 10/09/24 Lee Hubbard MD [address] [place] [address] Urology 10/09/24 [facility] cardiology 11/12/23 documented as of this encounter
--- OUTSIDE RECORDS SUMMARY | 2025-03-31 06:16 | XMS_ITS | Encounter Summary ---
Author Organization [employer] Address [address] [facility] 7t [place] [address] Care Team Providers Care Powder Nipper Name Role Phone Wanda Bonilla Primary Care Provider Rajni García RN Unavailable [phone] April Michele MD Unavailable [phone] Lee Hubbard MD Unavailable [phone] Reason for Visit * Reason Onset Date Comments Med Refill 08/28/2023 Encounter Details Date Type Department Care Team (Late st Contact Info) Description 08/28/2023 Telephone [facility] 230 [place], [place] [phone] Wanda Bonilla ANP 230 [place], [place] [phone] Med Refill Social History Tobacco Use Types [...] MG/1.5ML solution pen-injector To be sent to: [facility] documented in this encounter Plan of Treatment Upcoming Encounters Date Type Department Care Team (Late st Contact Info) Description 04/02/2025 2:30 PM EDT Office Visit [facility] 230 [place], [place] [phone] Wanda Bonilla ANP 230 [place] [address] 04/20/2025 2:30 PM EDT Office Visit [facility] OPTOMETRY [address] [place] [address] Smiley Scott, OD 230 [place] [address] documented as of this encounter Visit Diagnoses Not on filedocumented in this encounter Additional Health Concerns Assessment Noted Time PHQ-9 Depression Total Score: 0 08/25/19 23 1:48 PM EST documented as of this encounter Care Teams Powder Nipper Relationship Specialty Start Date End Date Wanda Bonilla ANP 230 [place] [address] PCP - General Family Medicine 09/03/20 Rajni García, TIM [address] [place] [address] Formation Fracturing OperatorRestaurant Manager 09/18/24 12/15/24 April Michele MD [address] [facility] [address] [place] [address] Referring Physician Infectious Diseases 10/09/24 Lee Hubbard MD [address] [place] [address] Urology 10/09/24 [facility] cardiology 11/12/23 documented as of this encounter
--- OUTSIDE RECORDS SUMMARY | 2025-03-31 06:16 | XMS_ITS | Encounter Summary ---
Author Organization [employer] Address [address] [facility] 7t [place] [address] Care Team Providers Care Licensed Club Manager Name Role Phone Wanda Bonilla Primary Care Provider Rajni García RN Unavailable [phone] April Michele MD Unavailable [phone] Lee Hubbard MD Unavailable [phone] Reason for Visit * Reason Onset Date Comments Returning Call 01/08/2024 Encounter Details Date Type Department Care Team ([facility] st Contact Info) Description 01/08/2024 Telephone [facility] 230 [place], [place] [phone] Wanda Bonilla ANP 230 [place], [place] [phone] Returning Call Social History Tobacco Use Types [...] pt stated she received a call from primary care pediatrician regarding new program in [facility], lead technical writer did not see anything documented but advised will forward message. documented in this encounter Plan of Treatment Upcoming Encounters Date Type Department Care Team (Late st Contact Info) Description 04/02/2025 2:30 PM EDT Office Visit [facility] 230 [place] [address] Wanda Bonilla, ANP [address] [place] [address] 04/20/2025 2:30 PM EDT Office Visit [facility] [address] [place], [place] [phone] Smiley Scott OD 230 [place] [address] documented as of this encounter Visit Diagnoses Not on filedocumented in this encounter Additional Health Concerns Assessment Noted Time PHQ-9 Depression Total Score: 5 11/23/19 24 1:33 PM EDT documented as of this encounter Care Teams Licensed Club Manager Relationship Specialty Start Date End Date Wanda Bonilla ANP [address] [place] [address] PCP - General Family Medicine 09/03/20 Rajni García, TIM [address] [place] [address] Civil Engineering DrafterHome Demonstration Agent 09/18/24 12/15/24 April Michele MD [address] [facility] [address] [place] [address] Referring Physician Infectious Diseases 10/09/24 Lee Hubbard MD [address] [place] [address] Urology 10/09/24 [facility] cardiology 11/12/23 documented as of this encounter
--- OUTSIDE RECORDS SUMMARY | 2025-03-31 06:16 | XMS_ITS | Encounter Summary ---
Author Organization [employer] Address [address] [place] [address] 7t [place] [address] Care Team Providers Care Retort Furnace Helper Name Role Phone Wanda Bonilla Primary Care Provider [phone] Rajni García RN Unavailable [phone] Aprli Michele MD Unavailable [phone] Lee Hubbard MD Unavailable Reason for Visit * Reason Onset Date Comments Referral 08/30/2022 Encounter Details Date Type Department Care Team ([facility] st Contact Info) Description 08/30/[address] [facility] 230 [place], [place] [phone] Wanda Bonilla ANP 230 [place], [place] [phone] Referral Social History Tobacco Use Types Packs/Day [...] Miscellaneous Notes * Telephone Encounter - Ish Cratwright - 08/30/2022 11:27 AM EST Tc from pt requesting a referral to see a neurologist Please contact pt at [phone] documented in this encounter Plan of Treatment Upcoming Encounters Date Type Department Care Team (Late st Contact Info) Description 04/02/2025 2:30 PM EDT Office Visit [facility] [address] [place] [address] Wanda Bonilla ANP [address] [place] [address] 04/20/2025 2:30 PM EDT Office Visit [facility] [address] [place] [address] Tyler, Smiley, OD 230 [place] [address] documented as of this encounter Visit Diagnoses Not on filedocumented in this encounter Additional Health Concerns Assessment Noted Time PHQ-9 Depression Total Score: 0 08/25/19 23 1:48 PM EST documented as of this encounter Care Teams Retort Furnace Helper Relationship Specialty Start Date End Date Wanda Bonilla ANP [address] [place] [address] PCP - General Family Medicine 09/03/20 Rajni García, TIM [address] [place] [address] Certified Social Workers In Health CareCargoman 09/18/24 12/15/24 April Michele MD [address] [address] [place] [address] Referring Physician Infectious Diseases 10/09/24 Lee Hubbard MD [address] [place] [address] Urology 10/09/24 [facility] cardiology 11/12/23 documented as of this encounter
--- OUTSIDE RECORDS SUMMARY | 2025-03-31 06:16 | XMS_ITS | Encounter Summary ---
Author Organization [employer] Address [address] [place] [address] 7t h Floor [place] [phone] Care Team Providers Care Food And Drink Factory Workers Name Role Phone Irene Wanda HARO Primary Care Provider Rajni García RN Unavailable [phone] April Michele MD Unavailable [phone] Lee Hubbard MD Unavailable Reason for Visit * Reason Comments Med Refill Encounter Details Date Type Department Care Team (Late Contact Info) Description 04/03/2023 Refill [facility] [address] [place] [address] Brenda Lopez MD 230 [place] [address] Social History Tobacco Use Types Packs/Day Years [...] 04/02/2025 2:30 PM EDT Office Visit [facility] 230 [place] [address] Wanda Bonilla ANP [address] [place] [address] 04/20/2025 2:30 PM EDT Office Visit [facility] OPT[facility] [address] [place] [address] Tyler, Smiley, OD 230 [place] [address] documented as of this encounter Visit Diagnoses Not on filedocumented in this encounter Additional Health Concerns Assessment Noted Time PHQ-9 Depression Total Score: 0 08/25/19 23 1:48 PM EST documented as of this encounter Care Teams Food And Drink Factory Workers Relationship Specialty Start Date End Date Wanda Bonilla ANP 230 [place] [address] PCP - General Family Medicine 09/03/20 Rajni García, TIM [address] [place] [address] Sewer Pipe CleanerAcquisition Associate 09/18/24 12/15/24 April Michele MD [address] [facility] [address] [place] [address] Referring Physician Infectious Diseases 10/09/24 Lee Hubbard MD [address] [place] [address] Urology 10/09/24 [facility] cardiology 11/12/23 documented as of this encounter
--- OUTSIDE RECORDS SUMMARY | 2025-03-31 06:16 | XMS_ITS | Encounter Summary ---
Author Organization [employer] Address [address] [facility] 7t [place] [address] Care Team Providers Care Dog Or Horse Racing Official Name Role Phone Wanda Bonilla Primary Care Provider Rajni García RN Unavailable [phone] April Michele MD Unavailable [phone] Lee Hubbard MD Unavailable [phone] Reason for Visit * Reason Onset Date Comments Hospital Follow-up 11/15/2023 Encounter Details Date Type Department Care Team (Late st Contact Info) Description 11/15/2023 Telephone [facility] 230 [place], [place] [phone] Wanda Bonilla ANP 230 [place], [place] [phone] Hospital Follow-up Social History Tobacco Use Types [...] from pt requesting a HDF appt. Hospital: [facility] Date of admission: 11/09 Discharge date: 11/13 Diagnosed: Neuropathy documented in this encounter Plan of Treatment Upcoming Encounters Date Type Department Care Team (Late st Contact Info) Description 04/02/2025 2:30 PM EDT Office Visit [facility] [address] [place] [address] Wanda Bonilla ANP [address] [place] [address] 04/20/2025 2:30 PM EDT Office Visit [facility] OPT[facility] [address] [place] [address] Tyler, Smiley, OD 230 [place] [address] documented as of this encounter Visit Diagnoses Not on filedocumented in this encounter Additional Health Concerns Assessment Noted Time PHQ-9 Depression Total Score: 0 08/25/19 23 1:48 PM EST documented as of this encounter Care Teams Dog Or Horse Racing Official Relationship Specialty Start Date End Date Wanda Bonilla ANP 230 [place] [address] PCP - General Family Medicine 09/03/20 Rajni García, RN [address] [place] [address] Automatic Serging Machine OperatorPacking Machine Operator 09/18/24 12/15/24 April Michele MD [address] [place] [address] 404 [place] [address] Referring Physician Infectious Diseases 10/09/24 Lee Hubbard MD [address] [place] [address] Urology 10/09/24 [facility] cardiology 11/12/23 documented as of this encounter
--- OUTSIDE RECORDS SUMMARY | 2025-03-31 06:16 | XMS_ITS | Encounter Summary ---
Author Organization [employer] Address [address] [facility] 7t [place] [address] Care Team Providers Care Rerecording Mixer Name Role Phone Wanda Bonilla Primary Care Provider [phone] April Michele MD Unavailable [phone] Lee Hubbard MD Unavailable [phone] Reason for Visit * Reason Onset Date Comments Referral 01/02/2025 Encounter Details Date Type Department Care Team (Late st Contact Info) Description 01/02/2025 Telephone [facility] 230 [place] [address] Wanda Bonilla ANP [address] [place] [address] Referral Social History Tobacco Use Types Packs/Day [...] location of referral for [facility] [place] [facility]. Pt would like a call back to confirm. Please contact pt at [phone]. documented in this encounter Plan of Treatment Upcoming Encounters Date Type Department Care Team (Late st Contact Info) Description 04/02/2025 2:30 PM EDT Office Visit [facility] [address] [place] [address] Wanda Bonilla ANP [address] [place] [address] 04/20/2025 2:30 PM EDT Office Visit [facility] [address] [place] [address] Smiley Scott, OD 230 [place] [address] documented as of this encounter Visit Diagnoses Not on filedocumented in this encounter Additional Health Concerns Assessment Noted Time PHQ-9 Depression Total Score: 5 11/23/19 24 1:33 PM EDT documented as of this encounter Care Teams Rerecording Mixer Relationship Specialty Start Date End Date Wanda Bonilla ANP [address] [place] [address] PCP - General Family Medicine 09/03/20 April Michele MD [address] [facility] [address] [place] [address] Referring Physician Infectious Diseases 10/09/24 Lee Hubbard MD [address] [place] [address] Urology 10/09/24 [facility] cardiology 11/12/23 documented as of this encounter
--- OUTSIDE RECORDS SUMMARY | 2025-03-31 06:16 | XMS_ITS | Clinical Summary ---
Author Organization [employer] Address [address] [place] [address] 7[address] [place] [address] Care Team Providers Care Clinic Manager Name Role Phone Irene Sandra HARO Primary Care Provider [phone] April Michele MD Unavailable Lee Hubbard MD Unavailable [phone] Allergies Active Allergy Reactions Criticality Noted [...] :Type 2 diabetes mellitus with hyperlipidemia (CMS/HCC) ([facility]) TAKE 1 TABLET BY MOUTH EVERY [...] Active insulin pen needle (Easy Touch Pen Huntly) 31G X 8 mm miscIndications:D iabetic polyneuropathy associated with type 2 diabetes mellitus ([facility]) USE DIRECTED FOUR TIMES DAILY 100 each 025 Active Blood Pressure Monitoring (Omron 3 Series BP Monitor) device Use as directed 1x/d 1 each 025 Active Blood Glucose Monitoring Suppl (FreeStyle Euclid Lite) w/Device kit Use to test blood sugar 1x times daily 1 kit 025 Active insulin lispro (HumaLOG) 100 UNIT/ML injectionIndicati ons:Type 2 diabetes mellitus with hyperlipidemia (CMS/HCC) ([facility]) INJECT 20 UNITS SUBCUTANEOUSLY THREE TIMES [...] hyperglycemia, with long-term current use of insulin ([facility]) INJECT 54 UNITS SUBCUTANEOUSLY EVERY DAY [...] while admitted. She did get established with [facility] cardiology. I will request updated notes. Patient [...] opiates) with Tylenol and ibuprofen I called [facility] cardiology clinic and they will call patient [...] Chest pain 12/07/2023 Overview (12/07/2023): [place] [facility] [place]11[place]14[place] ?NSTEMI Optimize BP, DM, [...] Psychiatrist decreased seroquel. She was referred to [facility] Breast Specialist for further eval. History of [...] 12/21/2017 Cirrhosis of liver 07/27/2017 Overview (10/01/2023): [facility] [place] D/t HCV (suspect s/p [...] Type Department Care Team Description 03/20/2025 Refill [facility] [address] [place] [address] Sandra Vieira ANP Diabetic polyneuropathy associated with type 2 diabetes mellitus ([facility]/HCC) 03/19/2025 Orders Only GENERIC EXTERNAL DATA DEPARTMENT Provider, Generic External Data 03/14/2025 Refill [facility] [address] [place] [address] Sandra Vieira ANP Restless legs 03/12/2025 Refill [facility] [address] [place], [place] [phone] Sandra Vieira ANP Type 2 diabetes mellitus with hyperlipidemia (CMS/HCC) ([facility]/HCC); Heartburn 03/04/2025 Telephone [facility] [address] [place], [place] [phone] Sandra Vieira ANP imaging question 02/12/2025 Refill [facility] [address] [place], [place] [phone] Sandra Vieira ANP Primary hypertension 02/06/2025 11:20 AM EDT Office Visit [facility] [address] [address] Merced Chávez MD Other cirrhosis of liver ([facility]/HCC) (Primary Dx); Dietary counseling; Exercise counseling; Class 1 obesity with serious comorbidity and body mass index (BMI) of 30.0 to 30.9 in adult, unspecified obesity type; Pituitary microadenoma (CMS/HCC); Depressed bipolar I disorder ([facility]/HCC); Primary hypertension; Type 2 diabetes mellitus with hyperlipidemia (CMS/HCC) (CMS/HCC); Chronic hepatitis C without hepatic coma ([facility]/HCC); Renal stones; Pelvic pain 02/06/2025 Travel 02/06/2025 Telephone [facility] PED[facility] [address] [place] [address] Pam Samson RN 01/28/2025 9:20 AM EDT [facility] [address] [address] Jaxson Roman MD Exacerbation of intermittent asthma, unspecified asthma severity (Primary Dx); Cough in adult patient; Wheezing 01/28/[address] [address] Sandra Vieira ANP Med Refill; Medication Question 01/28/2025 Travel 01/27/[address] [address] Sandra Vieira ANP ER Follow-up 01/27/2025 Refill [facility] [address] [place] [address] Sandra Vieira ANP Diabetic polyneuropathy associated with type 2 diabetes mellitus ([facility]/HCC) 01/20/2025 Telephone [facility] [address] [place] [phone] Sandra Vieira ANP No Show 01/19/2025 Orders Only [facility] External Provider, [facility] 01/07/2025 Telephone [facility] [address] [place] [phone] Sandra Vieira ANP Georgette recall 01/06/2025 Telephone [facility] [address] [place] [address] Sandra Vieira ANP Referral 01/02/2025 Telephone [facility] [address] [place] [address] Sandra Vieira ANP Referral 12/31/2024 11:20 AM EDT Office Visit [facility] [address] [place] [address] Nuvia Qiu DO Dermatitis (Primary Dx) 12/31/2024 Patient Outreach [facility] [address] [place] [address] Sandra Vieira ANP Care Coordination (Appt reminder) 12/31/2024 Travel from Last 3 Months Immunizations Immunization Administration [...] Description 04/02/2025 2:30 PM EDT Office Visit [facility] [address] [place], [place] [phone] Sandra Vieira, ANP [address] [place], [place] [phone] 04/20/2025 2:30 PM EDT Office Visit [facility] [address] [place], [place] [phone] Tyler, Smliey, OD [address] [place] [address] Health Maintenance Due Date Last Done Comments [...] 11/22/2024 11/23/2023, 11/23/19 24 Diabetes: Hemoglobin A1C 03/27/2025 025, 09/23/2024, 06/05/2024, Additional history exists Influenza Vaccine (#1) 2025 05/13/2018, 2016 Alcohol/Substance Use Screening 07/24/2025 07/24/2024 Tobacco Screening 02/06/2026 02/06/2025 Mammogram 07/03/2026 07/03/2024, 11/2023, 01/04/2024, Additional history exists Cervical Cancer Screening [...] WO CONTRAST Routine 01/19/2025 8:43 AM EDT POCT GLYCATED HEMOGLOBIN, TOTAL Routine 12/25/2024 11:35 [...] Quantitative, Real-Time PCR (03/19/2025 12:13 PM EDT) Pathologist [facility] Hepatitis C Viral Load 7353929(A ) NOT DETECTED IU/mL [facility] HCV Log PCR 6.20(A) NOT DETECTED Log IU/mL [facility] Comment:For additional infor mation, please refer [email or web address](This link is being provided for informational/educational purposes only.)THIS TEST WAS PERFORMED AT:[facility] [address] [id number] YO MD 03/19/2025 12:1 3 PM EDT 03/19/2025 12:19 PM EDT us Generic External Data Provider LAB BLOOD ORDERAB LES Final Result [facility] [address] [place] [address] [phone] * Alpha-Fetoprotein, Tumor Marker (03/19/2025 12:13 PM EDT) Pathologist [facility] Alpha Fetoprotein 4.8 ng/mL [facility] Comment:Reference Range: <6. 1The use of AFP as a tumor marker in females is not recommended.This test was performed using the Jeanine Coulterchemiluminescent method. Values obtained fromdifferent assay methods cannot be usedinterchangeably. AFP levels, regardless ofvalue, should not be interpreted as absoluteevidence of the presence or absence of disease.THIS TEST WAS PERFORMED AT:[facility] [address] [id number] YO MD 03/19/2025 12:1 3 PM EDT 03/19/2025 12:19 PM EDT us Generic External Data Provider LAB BLOOD ORDERAB LES Final Result Performing Organization Address City/[facility]/ZIP Co de Phone Number [facility] [address] [place] [phone] * (ABNORMAL) CBC (03/19/2025 12:13 PM EDT) White Blood Count 4.5(L) 4.8 - 10.8 X10*3/uL [facility] Red Blood Count 4.11(L) 4.20 - 5.50 X10*6/uL [facility] Hemoglobin 11.8(L) 12.0 - 16.0 g/dl [facility] Hematocrit 35.6(L) 37.0 - 47.0 % [facility] Mean Corpuscular Volume 86.6 80.0 - 98.0 fL [facility] Mean Corpuscular Hemoglobin 28.7 27.0 - 33.0 pg [facility] Mean Corpuscular HGB Conc 33.1 31.0 - 35.0 g/dl [facility] Red Cell Distribution Width 13.1 11.0 - 16.0 % [facility] Platelet Count 96(L) 160 - 400 X10*3/uL [facility] Mean Platelet Volume 11.1 9.4 - 12.3 fL [facility] NRBC Pct Auto 0.0 0.0 - 0.2 /100WBC [facility] NRBC Abs Auto 0.000 0.0 - 0.012 X10*3/uL [facility] 03/19/2025 12:1 3 PM EDT 03/19/2025 12:19 PM EDT us Generic External Data Provider LAB BLOOD ORDERAB LES Final Result Performing Organization Address [facility]/ZIP Co de Phone Number [facility] [address] [place] [phone] * POCT Urinalysis (02/06/2025 3:32 PM EDT) [facility] Color, UA Yellow Clarity, UA Clear Glucose, UA Negative Bilirubin, UA Negative Ketones, UA Negative Spec Grav, UA 1.030 Blood, UA Negative Negative, None Detected pH, UA 6.0 Protein, UA Negative Urobilinogen, UA 0.2 Leukocytes, UA Negative Negative, Rare, Trace Nitrite, UA Negative Negative, None Detected Appearance, UA clear QC Media Lot # [id number] Lot# Expiration Date [id number] Urine 02/06/2025 3:32 PM EDT Merced Chávez MD POINT OF CARE TEST ENTER/EDIT ORDERABLES Final Result * Influenza B (ID NOW Rapid Molecular) (01/28/2025 9:23 AM EDT) [facility] Influenza B Negative Negative, Indeterminate [facility] Swab 01/28/2025 9:23 AM EDT Jaxson Roman MD POINT OF CARE TEST ENTER/EDIT OR DERABLES Final Result Performing Organization Address City/[facility]/ZIP Co de Phone Number [facility] [address] [place] [phone] * Influenza A (ID NOW Rapid Molecular) (01/28/2025 9:23 AM EDT) [facility] Influenza A Negative Negative, Indeterminate [facility] Swab 01/28/2025 9:23 AM EDT Jaxson Roman MD POINT OF CARE TEST ENTER/EDIT OR DERABLES Final Result Performing Organization Address [facility] Co de Phone Number [facility] [address] [place] [phone] * POCT Rapid COVID Ag (01/28/2025 9:15 AM EDT) [facility] Rapid COVID Ag Negative Swab 01/28/2025 9:15 AM EDT us Jaxson Name POINT OF CARE TEST ENTER/EDIT OR DERABLES Final Result * Urinalysis w/reflex microscopic (01/19/2025 10:19 AM EDT) Color Urine Yellow [facility] Appearance Urine Cloudy [facility] PH 5.5 5.0 - 9.0 [facility] Glucose Urine UA Negative Negative mg/dL [facility] Urine Blood Negative Negative [facility] Specific Campbell - Urine 1.020 1.005 - 1.025 [facility] Urine Protein Trace Neg-Trace mg/dL [facility] Urine Ketones Negative Negative mg/dL [facility] Nitrite Urine Negative Negative [facility] Leukocyte Esterase Urine Negative Negative [facility] 01/19/2025 10:1 9 AM EDT 01/19/2025 10:23 AM EDT Narrative [facility] - 01/19/2025 10:32 AM EDT [id number], [employer] us Generic External Data Provider LAB URINE ORDERAB LES Final Result Performing Organization Address City/State/[facility] Co de Phone Number [facility] [address] [place] [phone] * (ABNORMAL) CBC auto differential (01/19/2025 10:02 AM EDT) White Blood Count 3.6(L) 4.8 - 10.8 X10*3/uL [facility] Red Blood Count 3.80(L) 4.20 - 5.50 X10*6/uL [facility] Hemoglobin 11.0(L) 12.0 - 16.0 g/dl [facility] Hematocrit 32.1(L) 37.0 - 47.0 % [facility] Mean Corpuscular Volume 84.5 80.0 - 98.0 fL [facility] Mean Corpuscular Hemoglobin 28.9 27.0 - 33.0 pg [facility] Mean Corpuscular HGB Conc 34.3 31.0 - 35.0 g/dl [facility] Red Cell Distribution Width 13.2 11.0 - 16.0 % [facility] Platelet Count 89(L) 160 - 400 X10*3/uL [facility] Mean Platelet Volume 10.0 9.4 - 12.3 fL [facility] Neutrophils Percent Auto 50.1 45 - 73 % [facility] Imm Gran Pct Auto 0.3 0.0 - 0.4 % [facility] Lymphocytes Percent Auto 34.3 20 - 40 % [facility] Monocytes Percent Auto 12.5(H) 2 - 11 % [facility] Eosinophils Percent Auto 2.5 0 - 4 % [facility] Basophils Percent Auto 0.3 0 - 2 % [facility] NRBC Pct Auto 0.0 0.0 - 0.2 /100WBC [facility] Neutrophils Absolute Auto 1.8(L) 2.0 - 8.3 x10*3/uL [facility] Imm Gran Abs Auto 0.01 0.00 - 0.03 X10*3/uL [facility] Lymphocytes Absolute Auto 1.2 1.2 - 4.9 X10*3/uL [facility] Monocytes Absolute Auto 0.5 0.1 - 1.2 X10*3/uL [facility] Eosinophils Absolute Auto 0.1 0.0 - 0.4 X10*3/uL [facility] Basophils Absolute Auto 0.0 0.0 - 0.2 X10*3/uL [facility] NRBC Abs Auto 0.000 0.0 - 0.012 X10*3/uL [facility] 01/19/2025 10:0 2 AM EDT 01/19/2025 10:09 AM EDT us Generic External Data Provider LAB BLOOD ORDERAB LES Final Result [facility] [address] [place] [phone] * Magnesium (01/19/2025 10:02 AM EDT) Magnesium 2.1 1.6 - 2.6 mg/dL [facility] 01/19/2025 10:0 2 AM EDT 01/19/2025 10:09 AM EDT us Generic External Data Provider LAB BLOOD ORDERAB LES Final Result [facility] [address] [place] [address] [phone] * (ABNORMAL) Comprehensive Metabolic Panel (01/19/2025 10:02 AM EDT) Sodium 142 135 - 145 mmol/L [facility] Potassium 3.9 3.3 - 5.1 mmol/L [facility] Chloride 111(H) 96 - 108 mmol/L [facility] Carbon Dioxide 25 22 - 29 mmol/L [facility] Anion Gap 10(L) 12 - 20 [facility] Urea Nitrogen (BUN) 13 9 - 16 mg/dL [facility] Creatinine, Serum 0.92 0.5 - 1.4 mg/dL [facility] Creatinine Clr Calc Pharmacy 64.0 [facility] Comment:Provided height and weight: 160.02 cm,79.379 kg.eGFR (calculated from the MDRD study equation) and eCrCl(calculated from the Cockcroft-Gault equation) are based ondifferent parameters and may not yield comparable results.If eCrCl result is absurd, please check patient'sheight/weight. Estimated Glomerular Filt Rate >60 [facility] Comment:Chronic Kidney Disea se: Estimated GFR < 60 mL/min/1.17p0Iqopvn Kidney Disease: Estimated GFR < 15 mL/min/1.73m2 Glucose 140(H) 60 - 115 mg/dL [facility] Calcium 9.1 8.4 - 10.2 mg/dL [facility] Bilirubin, Total 0.4 0.0 - 1.0 mg/dL [facility] Aspartate Amino Transferase 41(H) 5 - 31 U/L [facility] Alanine Aminotransferase 50(H) 0 - 31 U/L [facility] Total Protein 6.7 6.5 - 8.0 g/dL [facility] Albumin Level 3.7 3.5 - 5.0 g/dL [facility] Alkaline Phosphatase 134(H) 39 - 117 U/L [facility] 01/19/2025 10:0 2 AM EDT 01/19/2025 10:09 AM EDT us Generic External Data Provider LAB BLOOD ORDERAB LES Final Result Performing Organization Address City/State/[facility] Co de Phone Number [facility] [address] [place] [address] [phone] * CT Abdomen Pelvis w/o Contrast (01/19/2025 8:43 AM EDT) Anatomical Region Laterality Modality Body, Pelvis, Abdomen Computed T omography 01/19/2025 8:43 AM EDT Narrative 01/19/2025 10:10 AM EDT [place] [address] CT Scan Report Signed Patient: Tank Max MR#: [id number] : 1965 Acct:[id number] Age/Sex: 59 / F ADM Date: 01/19/25 Loc: .ED Attending Dr: Ordering Physician: Audrey Urrutia Date of Service: 01/19/25 Procedure(s): CT abdomen pelvis wo IV con Accession Number(s): [id number] cc: Audrey Urrutia; SANDRA VIEIRA NP Report Number: [id number]: Total DLP = 517.00 mGy-cm EXAMINATION: CT [...] 01/19/25 1006 DD/ 0843 TD/TT: 01/19/25 0951 [employer] Supervisor: Procedure Note Donotuseinterpreter, Image - 01/19/[address] [address] [address] Scan Report Signed Patient: Barrera Max#: [id number] : 1965Acct:[id number] Age/Sex: 59 / FADM Date: 01/19/25 Loc: HO.ED Attending Dr: Ordering Physician: Audrey Urrutia Date of Service: 01/19/25 Procedure(s): CT abdomen pelvis wo IV con Accession Number(s): [id number] cc: Audrey Urrutia; SANDRA VIEIRA NP Report Number: [id number]: Total DLP = 517.00 mGy-cm EXAMINATION: CT [...] 01/19/25 1006 DD/ 0843 TD/TT: 01/19/25 0951 [employer] Supervisor: [facility] External Provider IMG CT PROCEDURES Final Result * (ABNORMAL) POCT HGB A1C (12/25/2024 11:35 AM EDT) Hemoglobin A1C 7.5(A) 4.0 - 6.0 % QC Media Lot # [id number] Lot# Expiration Date Blood 12/25/2024 11:3 5 AM EDT [facility] POINT OF CARE TEST ENTER/EDIT OR DERABLES Final Result * BI Mammogram Screening Tomosynthesis Bilateral (07/03/2024 9:53 AM EST) Anatomical Region Laterality Modality Breast Bilateral Mammography 07/03/2024 9:53 AM EST Narrative 07/09/2024 10:57 AM EST [facility] [address] [place] [address] Mammography Report Signed Patient: Tank Max MR#: [id number] : 1965 Acct:[id number] Age/Sex: 59 / F ADM Date: 07/03/24 Loc: HO.MAMMO Attending Dr: Herminio Britton MD Ordering Physician: Herminio Britton MD Results: 1Negativ e Date of Service: 07/03/24 Follow Up: 1 Year From Orig inal Mammogram Procedure(s): MM tomosynthesis screening BI Accession Number(s): [id number] cc: SANDRA VIEIRA NP; Herminio Britton MD [...] 07/09/24 1054 DD/ 0953 TD/TT: 07/03/24 1018 [employer] Supervisor: Procedure Note Donotuseinterpreter, Image - 07/09/2024 [facility] [address] [place] [address] Mammography Report Signed Patient: Barrera Max#: [id number] : 1965Acct:[id number] Age/Sex: 59 / FADM Date: 07/03/24 Loc: HO.MAMMO Attending Dr: Herminio Britton MD Ordering Physician: Herminio Britton MDResults: 1Negativ e Date of Service: 07/03/24Follow Up: 1 Year From Orig inal Mammogram Procedure(s): MM tomosynthesis screening BI Accession Number(s): [id number] cc: SANDRA VIEIRA NP; Herminio Britton MD [...] 07/09/24 1054 DD/ 0953 TD/TT: 07/03/24 1018 [employer] Supervisor: [facility] External Provider IMG BI PROCEDURES Edited Result - Final * Pap Smear (06/17/2024 10:30 AM EST) 06/17/2024 10:3 0 AM EST 06/18/2024 9:15 AM EST Juan [facility] - 06/20/2024 9:28 AM EST ----- ------- Name: Tank Max Age/Sex: 59/F : 1965 Unit#: [id number] Attend Dr: Herminio Britton MD Re06/17/24 Status: [facility] REF Location: [facility] Disch: ----- ------- SPEC : [id number] RECD: 06/18/24 STATUS: MARCELINO HCAMBERS NUM: [id number] MILY: 06/17/24-[address] [facility] [address]: Herminio Britton MD ENTERED: 06/18/24-110 SP TYPE: Pap Smr OTHR DR: SANDRA VIEIRA NP ORDERED: Pap Smear Interpretation Satisfactory for evaluation. Negative for intraepithelial lesion or malignancy. No endocervical cells seen. HPV High Risk: Negative HPV Genotyping 16: Negative HPV Genotyping 18: Negative Clinical Information LMP: Postmenopausal Previous PAP test: Unknown date/findings Material Received ThinPrep-Cervical Copies To: SANDRA VIEIRA NP [facility] [address] [place], [place] [phone] Herminio Britton MD [facility] [address] [place] [address] ----- ------- Signed (signature on file) AVELINO Romero (ASCP) 06/20/24 0928 ----- ------- END OF REPORT Generic External Data Provider LAB CYTOLOGY ORDE RABLES Final Result Performing Organization Address [facility] Co de Phone Number [facility] [address] [place] [address] [phone] * HPV mRNA E6/E7 w/Reflex to HPV Genotypes 16, 18/45 (06/17/2024 12:00 AM EST) Historical Provider MD LAB CYTOLOGY ORDERABLES F inal Result Performing Organization Address [facility] de Phone Number [facility] [address] [place] [phone] * HIV-1/2 Antigen and Antibodies, Fourth Generation, with Reflexes (03/24/2024 3:20 PM EDT) HIV AB/AG Nonreactive Nonreactive [facility] Comment:HIV-1 p24 Ag and/or HIV-1/HIV-2 Ab not detected.A test result that is nonreactive does not exclude thepossibility of exposure to or infection with HIV-1 and/orHIV-2. Nonreactive results in this assay for individualswith prior exposure to HIV-1 and/or HIV-2 may be due toantigen and antibody levels that are below the limit ofdetection of this assay.The [employer] B E HIV Ag/Ab Combo assay result andsupplemental assay results should be interpreted inconjunction with the patient's clinical presentation,history and other laboratory results. If the results areinconsistent with clinical evidence, additional testing issuggested to confirm the result. 03/24/2024 3:20 PM EDT 03/24/2024 3:20 PM EDT [facility] External Data Provider LAB BLOOD ORDERAB LES Final Result Performing Organization Address [facility] Co de Phone Number [facility] [address] [place] [address] [phone] * (ABNORMAL) Albumin, Random Urine W/Creatinine (05/01/2023 11:30 AM EDT) Creatinine, Urine 302.38 mg/dL [facility] Microalbumin Urine 107.0 mg/L H [facility] Microalbum Creatinine Ratio Ur 35.3(H) <30 ug/mg cr [facility] Comment:Albumin/Creatinine R atio Reference Ranges: Normal: < 30 ug/mg creatinine Microalbuminuria: 30 - 300 ug/mg creatinineClinical Albuminuria: > 300 ug/mg creatinine Urine (Urine, Random) 05/01/2023 11:30 AM EDT 05/01/2023 1:17 PM EDT us [facility] LAB URINE ORDERABLES Final Resul t Performing Organization Address [facility] Co de Phone Number [facility] [address] [place] [address] [phone] * (ABNORMAL) Lipid Panel, Standard (05/01/2023 11:30 AM EDT) Triglycerides 189(H) <150 mg/dL [facility] Comment:Desirable Triglyceri de: less than 150 mg/dLBorderline High Triglyceride 150-199 mg/dLHigh Triglyceride: 200-499 mg/dLVery High Triglyceride: greater than or equal to 5OO mg/dL Cholesterol 188 <200 mg/dL [facility] Comment:Desirable Cholestero l: less than 200 mg/dLBorderline High Cholesterol: 200-239 mg/dLHigh Cholesterol: greater than 239 mg/dL LDL Cholesterol Calculated 98 <100 mg/dL [facility] Comment:Desirable LDL: less than 100 mg/dLNear Optimal/Above Optimal LDL: 110- 129 mg/dLBorderline High LDL: 130-159 mg/dLHigh LDL: 160-189 mg/dLVery High LDL: greater than or equal to 190 mg/dL HDL Cholesterol 53 >40 mg/dL [facility] Comment:Desirable HDL: great er than 40 mg/dL Note: This HDL assay may give artificially low results in patients with liver disease. Blood Venous blood specimen / Unknown 05/01/2023 11:30 AM EDT 05/01/2023 1:23 PM EDT Sandra Vieira [facility] BLOOD ORDERABLES Final Resul t [facility] [address] [place] [phone] from Last 3 Months or Most Recently Relevant to Health Maintenance Insurance [facility] [place] [id number] Care Teams Clinic Manager Relationship Specialty Start Date End Date Sandra Vieira ANP 230 [place] [address] PCP - General Family Medicine 09/03/20 April Michele MD [address] [place] [address] 404 [place] [address] Referring Physician Infectious Diseases 10/09/24 Lee Hubbard MD [address] [place] [address] Urology 10/09/24 [facility] cardiology 11/12/23
--- OUTSIDE RECORDS SUMMARY | 2025-03-31 06:16 | XMS_ITS | Encounter Summary ---
Author Organization [employer] Address 75 [facility] 7t [place] [address] Care Team Providers Care Program Manager Name Role Phone Wanda Bonilla Primary Care Provider [phone] Rajni García RN Unavailable [phone] April Michele MD Unavailable [phone] Lee Hubbard MD Unavailable [phone] Reason for Visit * Reason Onset Date Comments Results 09/12/2023 Encounter Details Date Type Department Care Team ([facility] st Contact Info) Description 09/12/2023 Telephone [facility] MEDICINE 230 [place], [place] [phone] Wanda Bonilla ANP 230 [place], [place] [phone] Results Social History Tobacco Use Types Packs/Day [...] (in chart) Date when done: 08/30 Facility: [facility] Type of results: US neck Date when done: sometime last week per pt Facility: [facility] Please contact pt at [phone] documented in this encounter Plan of Treatment Upcoming Encounters Date Type Department Care Team (Late st Contact Info) Description 04/02/2025 2:30 PM EDT Office Visit [facility] MEDICINE 230 [place], [place] [phone] Wanda Bonilla ANP 230 [place] [address] 04/20/2025 2:30 PM EDT Office Visit [facility] OPTOMETRY [address] [place] [address] Smiley Scott, OD 230 [place] [address] documented as of this encounter Visit Diagnoses Not on filedocumented in this encounter Additional Health Concerns Assessment Noted Time PHQ-9 Depression Total Score: 0 08/25/19 23 1:48 PM EST documented as of this encounter Care Teams Program Manager Relationship Specialty Start Date End Date Wanda Bonilla ANP 230 [place] [address] PCP - General Family Medicine 09/03/20 Rajni García, TIM [address] [place] [address] Pastry CookNaval Gunfire Spotter 09/18/24 12/15/24 April Michele MD [address] [facility] [address] [place] [address] Referring Physician Infectious Diseases 10/09/24 Lee Hubbard MD [address] [place] [address] Urology 10/09/24 [facility] cardiology 11/12/23 documented as of this encounter
--- OUTSIDE RECORDS SUMMARY | 2025-03-31 06:16 | XMS_ITS | Encounter Summary ---
Author Organization [employer] Address [address] [facility] [address] 7t [place] [address] Care Team Providers Care Corporate Director Name Role Phone Wanda Bonilla Primary Care Provider [phone] Rajni García RN Unavailable [phone] April Michele MD Unavailable [phone] Lee Hubbard MD Unavailable [phone] Encounter Details Date Type Department Care Team (Late st Contact Info) Description 09/26/2023 Telephone [facility] MEDICINE 230 [place] [address] Wanda Bonilla ANP 230 [place] [address] Social History Tobacco Use Types Packs/Day Years [...] 2:30 PM EDT Office Visit [facility] MEDICINE 230 [place] [address] Wanda Bonilla ANP 230 [place] [address] 04/20/2025 2:30 PM EDT Office Visit [facility] OPTOMETRY [address] [place] [address] Tyler, Smiley, OD 230 [place] [address] documented as of this encounter Visit Diagnoses Not on filedocumented in this encounter Additional Health Concerns Assessment Noted Time PHQ-9 Depression Total Score: 0 08/25/19 23 1:48 PM EST documented as of this encounter Care Teams Corporate Director Relationship Specialty Start Date End Date Wanda Bonilla ANP 230 [place] [address] PCP - General Family Medicine 09/03/20 Rajni García, RN 505 [place] [address] Branch AssistantGrocery Clerk Stocking 09/18/24 12/15/24 April Michele MD [address] [facility] [address] [place] [address] Referring Physician Infectious Diseases 10/09/24 Lee Hubbard MD [address] [place] [address] Drive [address] [place] [address] Urology 10/09/24 [facility] cardiology 11/12/23 documented as of this encounter
--- OUTSIDE RECORDS SUMMARY | 2025-03-31 06:16 | XMS_ITS | Encounter Summary ---
Author Organization [employer] Address [address] [facility] 7t [place] [address] Care Team Providers Care Cost Manager Name Role Phone Wanda Bonilla Primary Care Provider [phone] Rajni García RN Unavailable [phone] April Michele MD Unavailable [phone] Lee Hubbard MD Unavailable [phone] Reason for Visit * Reason Onset Date Comments Appointment Request 06/12/2023 Encounter Details Date Type Department Care Team ([facility] st Contact Info) Description 06/12/2023 Telephone [facility] MED[facility]INE 230 [place], [place] [phone] Wanda Bonilla ANP [address] [place], [place] [phone] Appointment Request Social History Tobacco Use Types [...] Description 04/02/2025 2:30 PM EDT Office Visit [facility] 230 [place] [address] Wanda Bonilla ANP 230 [place] [address] 04/20/2025 2:30 PM EDT Office Visit [facility] OPTOMETRY [address] [place] [address] Tyler, Smiley, OD 230 [place] [address] documented as of this encounter Visit Diagnoses Not on filedocumented in this encounter Additional Health Concerns Assessment Noted Time PHQ-9 Depression Total Score: 0 08/25/19 23 1:48 PM EST documented as of this encounter Care Teams Cost Manager Relationship Specialty Start Date End Date Wanda Bonilla ANP 230 [place] [address] PCP - General Family Medicine 09/03/20 Rajni García, RN [address] [place] [address] Underwater HunterMachine Captain 09/18/24 12/15/24 April Michele MD [address] [place] [address] [address] [place] [address] Referring Physician Infectious Diseases 10/09/24 Lee Hubbard MD [address] [place] [address] Drive [address] [place] [address] Urology 10/09/24 [facility] cardiology 11/12/23 documented as of this encounter
--- OUTSIDE RECORDS SUMMARY | 2025-03-31 06:16 | XMS_ITS | Encounter Summary ---
Author Organization [employer] Address 75 [facility] 7t [place] [address] Care Team Providers Care Sewer And Drain Technician Name Role Phone Wanda Bonilla Primary Care Provider [phone] April Michele MD Unavailable [phone] Lee Hubbard MD Unavailable [phone] Reason for Visit * Reason Onset Date Comments Referral 01/06/2025 Encounter Details Date Type Department Care Team (Late st Contact Info) Description 01/06/2025 Telephone [facility] MEDICINE 230 [place] [address] Wanda Bonilla ANP 230 [place] [address] Referral Social History Tobacco Use Types Packs/Day [...] any questions you can contact pt at [phone]. (Maltese Speaker) documented in this encounter Plan of Treatment Upcoming Encounters Date Type Department Care Team ([facility] st Contact Info) Description 04/02/2025 2:30 PM EDT Office Visit [facility] MEDICINE 230 [place] [address] Wanda Bonilla ANP 230 [place] [address] 04/20/2025 2:30 PM EDT Office Visit [facility] OPTOMETRY [address] [place] [address] Tyler, Smiley, OD 230 [place] [address] documented as of this encounter Visit Diagnoses Not on filedocumented in this encounter Additional Health Concerns Assessment Noted Time PHQ-9 Depression Total Score: 5 11/23/19 24 1:33 PM EDT documented as of this encounter Care Teams Sewer And Drain Technician Relationship Specialty Start Date End Date Wanda Bonilla ANP 230 [place] [address] PCP - General Family Medicine 09/03/20 April Michele MD [address] [facility] [address] [place] [address] Referring Physician Infectious Diseases 10/09/24 Lee Hubbard MD [address] [facility] [address] [facility] [address] [place] [address] Urology 10/09/24 [facility] cardiology 11/12/23 documented as of this encounter
--- OUTSIDE RECORDS SUMMARY | 2025-03-31 06:16 | XMS_ITS | Clinical Summary ---
Author Organization [address] [facility] Address [address] [place] [address] Phone Care Team Providers Care Production Team Member Name Role Phone Regina Su ADRIANNE Primary [...] - 12/31/2024 11:59 PM EDT Hospital Encounter [facility] MRI [address] [place] [address] Mass of left foot Discharge [...] - Risk 60-74 years 1-dose series) 2023 Colorectal Cancer Screening: Colonoscopy 06/13/2024 Hepatitis C Screening 06/13/2024 Social Influencers of Health Screening 06/13/2024 Diabetes: Annual Urine Albumin-Creatinine Ratio (uACR) 07/11/2024 Depression Screening 07/30/2024 COVID-19 Vaccine ( season) 2025 12/29/2020, 12/01/2020 Influenza Vaccine (#1) 2025 05/13/2018, 2016 Diabetes: [...] Signed Date: 01/01/2025 03:40 ET Workstation ID: [id number] Transcribed By: Self Edit Transcribed Date: 01/01/2025 [...] Signed Date: 01/01/2025 03:40 ET Workstation ID: [id number] Transcribed By: Self Edit Transcribed Date: 01/01/2025 03:23 ET us Mario Robbins DPM IMG MRI PROCEDURES Final Result from Last 3 Months Insurance [place]ID - [place] Member Subscriber Plan / Payer (Ef fective 2024-Present) Name:CHARLENE MART Relation to Subscriber:Self Name:Charlene Mart Payer ID:[id number] Group ID:Not on file Type:Not on file Address: [facility] [employer] [place] ATTN:CLAIMS [address] [place] [address] Care Teams Production Team Member Relationship Specialty Start Date End Date Regina Su FNP [address] [place] [address] PCP - General Nurse Practitioner 07/11/24
--- OUTSIDE RECORDS SUMMARY | 2025-03-31 06:16 | XMS_ITS | Encounter Summary ---
Author Organization [employer] Address 75 [facility] 7t [place] [address] Care Team Providers Care Alarm Mechanism Adjuster Name Role Phone Irene Wanda HARO Primary Care Provider Rajni García RN Unavailable [phone] April Michele MD Unavailable [phone] Lee Hubbard MD Unavailable [phone] Reason for Visit * Reason Comments Med Refill Encounter Details Date Type Department Care Team (Late st Contact Info) Description 03/14/2024 Refill [facility] MEDICINE 230 [place] [address] Shivani Small CNM [address] [place], [place] [phone] Social History Tobacco Use Types Packs/Day Years [...] Description 04/02/2025 2:30 PM EDT Office Visit [facility] MEDICINE 230 [place] [address] Wanda Bonilla ANP 230 [place] [address] 04/20/2025 2:30 PM EDT Office Visit [facility] OPTOMETRY 267 [place] [address] Tyler, Smiley, OD 230 [place] [address] documented as of this encounter Visit Diagnoses Not on filedocumented in this encounter Additional Health Concerns Assessment Noted Time PHQ-9 Depression Total Score: 5 11/23/19 24 1:33 PM EDT documented as of this encounter Care Teams Alarm Mechanism Adjuster Relationship Specialty Start Date End Date Wanda Bonilla ANP 230 [place] [address] PCP - General Family Medicine 09/03/20 Rajni García RN [address] [place] [address] Developmental Education InstructorSonar Watchstander 09/18/24 12/15/24 April Michele MD [address] [facility] [address] [place] [address] Referring Physician Infectious Diseases 10/09/24 Lee Hubbard MD [address] [facility] [address] [place] [address] Urology 10/09/24 [facility] cardiology 11/12/23 documented as of this encounter
--- OUTSIDE RECORDS SUMMARY | 2025-03-31 06:16 | XMS_ITS | Encounter Summary ---
Author Organization [employer] Address 75 [facility] 7t [place] [address] Care Team Providers Care Supervisor Shuttle Veneering Name Role Phone Wanda Bonilla Primary Care Provider Rajni García RN Unavailable [phone] April Michele MD Unavailable [phone] Lee Hubbard MD Unavailable [phone] Reason for Visit * Reason Comments Med Refill Encounter Details Date Type Department Care Team (Late st Contact Info) Description 08/03/2024 Refill [facility] MEDICINE 230 [place] [address] Wanda Bonilla ANP 230 [place] [address] Essential hypertension Social History Tobacco Use Types [...] Description 04/02/2025 2:30 PM EDT Office Visit [facility] MEDICINE 230 [place] [address] Wanda Bonilla ANP 230 [place] [address] 04/20/2025 2:30 PM EDT Office Visit [facility] OPTOMETRY [address] [place] [address] Tyler, Smiley, OD 230 [place] [address] documented as of this encounter Visit Diagnoses Diagnosis Essential hypertension Unspecified essential hypertension documented in this encounter Additional Health Concerns Assessment Noted Time PHQ-9 Depression Total Score: 5 11/23/19 24 1:33 PM EDT documented as of this encounter Care Teams Supervisor Shuttle Veneering Relationship Specialty Start Date End Date Wanda Bonilla ANP 230 [place] [address] PCP - General Family Medicine 09/03/20 Rajni García RN [address] [place] [address] Sheet Music SalespersonFinancial Compliance Officer 09/18/24 12/15/24 April Michele MD [address] [facility] [address] [place] [address] Referring Physician Infectious Diseases 10/09/24 Lee Hubbard MD 10 [facility] [address] [place] [address] Urology 10/09/24 [facility] cardiology 11/12/23 documented as of this encounter
--- OUTSIDE RECORDS SUMMARY | 2025-03-31 06:16 | XMS_ITS | Encounter Summary ---
Author Organization [employer] Address [address] [facility] [address] 7t [place] [address] Care Team Providers Care Take Up Supervisor Name Role Phone Irene Wanda HARO Primary Care Provider [phone] Rajni García RN Unavailable [phone] April Michele MD Unavailable [phone] Lee Hubbard MD Unavailable [phone] Encounter Details Date Type Department Care Team (Late st Contact Info) Description 11/25/2024 Orders Only [facility] [address] [place] [address] Dina Crawford Social History Tobacco Use Types [...] Description 04/02/2025 2:30 PM EDT Office Visit [facility] MEDICINE 230 [place] [address] Wanda Bonilla, ANP 230 [place] [address] 04/20/2025 2:30 PM EDT Office Visit [facility] OPTOMETRY [address] [place] [address] Tyler, Smiley, OD 230 [place] [address] documented as of this encounter Procedures Procedure Name Priority Date/Time Associated Diagnosis Comments HPV MRNA E6/E7 REFLEX TO HPV 16, 18/45 Routine 06/17/2024 12:00 AM EST documented in this encounter Results * HPV mRNA E6/E7 w/Reflex to HPV Genotypes 16, 18/45 (06/17/2024 12:00 AM EST) us Historical Provider LAB CYTOLOGY ORDERABLES F inal Result [facility] [address] [place] [address] [phone] documented in this encounter Visit Diagnoses Not on filedocumented in this encounter Additional Health Concerns Assessment Noted Time PHQ-9 Depression Total Score: 5 11/23/19 24 1:33 PM EDT documented as of this encounter Care Teams Take Up Supervisor Relationship Specialty Start Date End Date Wanda Bonilla ANP 230 [place] [address] PCP - General Family Medicine 09/03/20 Rajni García RN 505 [place] [address] Lead TeacherInformation Technology Technician 09/18/24 12/15/24 April Michele MD [address] [facility] [address] [place] [address] Referring Physician Infectious Diseases 10/09/24 Lee Hubbard MD [address] [place] [address] Urology 10/09/24 [facility] cardiology 11/12/23 documented as of this encounter
--- OUTSIDE RECORDS SUMMARY | 2025-03-31 06:16 | XMS_ITS | Encounter Summary ---
Author Organization [employer] Address 75 [facility] 7t [place] [address] Care Team Providers Care Blood Bank Attendant Name Role Phone Wanda Bonilla Primary Care Provider [phone] Rajni García RN Unavailable [phone] April Michele MD Unavailable [phone] Lee Hubbard MD Unavailable [phone] Reason for Visit * Reason Onset Date Comments Med Refill 10/01/2023 Encounter Details Date Type Department Care Team (Late st Contact Info) Description 10/01/2023 Telephone [facility] MEDICINE 230 [place], [place] [phone] Wanda Bonilla ANP 230 [place], [place] [phone] Med Refill Social History Tobacco Use Types [...] 250 MG tablet To be sent to: [facility] pharmacy documented in this encounter Plan of Treatment Upcoming Encounters Date Type Department Care Team (Late st Contact Info) Description 04/02/2025 2:30 PM EDT Office Visit [facility] MEDICINE 230 [place] [address] Wanda Bonilla ANP 230 [place] [address] 04/20/2025 2:30 PM EDT Office Visit [facility] OPTOMETRY [address] [place] [address] Tyler, Smiley, OD 230 [place] [address] documented as of this encounter Visit Diagnoses Not on filedocumented in this encounter Additional Health Concerns Assessment Noted Time PHQ-9 Depression Total Score: 0 08/25/19 23 1:48 PM EST documented as of this encounter Care Teams Blood Bank Attendant Relationship Specialty Start Date End Date Wanda Bonilla ANP 230 [place] [address] PCP - General Family Medicine 09/03/20 Rajni García, TIM 505 [place] [address] Sack Cleaning HandFocuser 09/18/24 12/15/24 April Michele MD [address] [place] [address] [address] [place] [address] Referring Physician Infectious Diseases 10/09/24 Lee Hubbard MD [address] [facility] [address] [place] [address] Urology 10/09/24 [facility] cardiology 11/12/23 documented as of this encounter
--- OUTSIDE RECORDS SUMMARY | 2025-03-31 06:16 | XMS_ITS | Encounter Summary ---
Author Organization [employer] Address [address] [facility] [address] 7t [place] [address] Care Team Providers Care Assistant Professor Of Business Name Role Phone Irene Wanda HARO Primary Care Provider [phone] Rajni García RN Unavailable [phone] April Michele MD Unavailable [phone] Lee Hubbard MD Unavailable [phone] Encounter Details Date Type Department Care Team (Late st Contact Info) Description 08/14/2024 Telephone [facility] MEDICINE 230 [place] [address] Adolfo Fernando, VishnuD Social History Tobacco Use [...] Description 04/02/2025 2:30 PM EDT Office Visit [facility] MEDICINE 230 [place] [address] Wanda Bonilla ANP 230 [place] [address] 04/20/2025 2:30 PM EDT Office Visit [facility] OPTOMETRY [address] [place] [address] Smiley Scott, OD 230 [place] [address] documented as of this encounter Visit Diagnoses Not on filedocumented in this encounter Additional Health Concerns Assessment Noted Time PHQ-9 Depression Total Score: 5 11/23/19 24 1:33 PM EDT documented as of this encounter Care Teams Assistant Professor Of Business Relationship Specialty Start Date End Date Wanda Bonilla ANP 230 [place] [address] PCP - General Family Medicine 09/03/20 Rajni García, RN 505 [place] [address] Ceo & FounderLoom Changeover Operator 09/18/24 12/15/24 April Michele MD [address] [facility] [address] [place] [address] Referring Physician Infectious Diseases 10/09/24 Lee Hubbard MD [address] [facility] [address] [place] [address] Urology 10/09/24 [facility] cardiology 11/12/23 documented as of this encounter
--- OUTSIDE RECORDS SUMMARY | 2025-03-31 06:16 | XMS_ITS | Encounter Summary ---
Author Organization [employer] Address [address] [place] [address] 7t [place] [address] Care Team Providers Care Grain Mill Worker Name Role Phone Wanda Bonilla Primary Care Provider Rajni García RN Unavailable [phone] April Michele MD Unavailable [phone] Lee Hubbard MD Unavailable [phone] Encounter Details Date Type Department Care Team (Late st Contact Info) Description 08/09/2022 Orders Only [facility] MEDICINE [address] [place] [address] Shanna Lopez LPN Social History Tobacco Use [...] 2:30 PM EDT Office Visit [facility] MEDICINE [address] [place] [phone] Wanda Bonilla ANP 230 [place] [address] 04/20/2025 2:30 PM EDT Office Visit [facility] OPTOMETRY [address] [place] [address] Smiley Scott, OD 230 [place] [address] documented as of this encounter Visit Diagnoses Not on filedocumented in this encounter Care Teams Grain Mill Worker Relationship Specialty Start Date End Date Wanda Bonilla ANP 230 [place] [address] PCP - General Family Medicine 09/03/20 Ranji García, TIM 505 [place] [address] Assistant Center DirectorActivated Sludge Operator 09/18/24 12/15/24 April Mihcele MD [address] [facility] [address] [place] [address] Referring Physician Infectious Diseases 10/09/24 Lee Hubbard MD [address] [facility] [address] [place] [address] Urology 10/09/24 [facility] cardiology 11/12/23 documented as of this encounter
--- OUTSIDE RECORDS SUMMARY | 2025-03-31 06:16 | XMS_ITS | Encounter Summary ---
Author Organization [employer] Address [address] [place] [address] 7t [place] [address] Care Team Providers Care Lead Cook Name Role Phone Wanda Bonilla Primary Care Provider Rajni García RN Unavailable [phone] April Michele MD Unavailable [phone] Lee Hubbard MD Unavailable Reason for Visit * Reason Onset Date Comments triage 07/13/2022 Encounter Details Date Type Department Care Team (Late st Contact Info) Description 07/13/2022 Telephone [facility] MEDICINE 230 [place] [address] Wanda Bonilla ANP 230 [place], [place] [phone] triage Social History Tobacco Use Types Packs/Day [...] caller The caller accepted this outcome speaks british documented in this encounter Plan of Treatment Upcoming Encounters Date Type Department Care Team (Late st Contact Info) Description 04/02/2025 2:30 PM EDT Office Visit [facility] MEDICINE [address] [place] [address] Wanda Bonilla ANP [address] [place] [address] 04/20/2025 2:30 PM EDT Office Visit [facility] OPTOMETRY [address] [place] [address] Tyler, Smiley, OD 230 [place] [address] documented as of this encounter Visit Diagnoses Not on filedocumented in this encounter Care Teams Lead Cook Relationship Specialty Start Date End Date Wanda Bonilla ANP 230 [place] [address] PCP - General Family Medicine 09/03/20 Rajni García RN 505 [place] [address] Regional Construction ManagerDimension Warehouse Supervisor 09/18/24 12/15/24 April Michele MD [address] [facility] [address] [place] [address] Referring Physician Infectious Diseases 10/09/24 Lee Hubbard MD [address] [place] [address] Urology 10/09/24 [facility] cardiology 11/12/23 documented as of this encounter
--- OUTSIDE RECORDS SUMMARY | 2025-03-31 06:16 | XMS_ITS | Encounter Summary ---
Author Organization [employer] Address [address] [facility] [address] [place] [address] Care Team Providers Care Assistant Construction Superintendent Name Role Phone Wanda Bonilla Primary Care Provider [phone] Rajni García RN Unavailable [phone] April Michele MD Unavailable [phone] Lee Hubbard MD Unavailable [phone] Encounter Details Date Type Department Care Team (Late st Contact Info) Description 08/28/2023 Orders Only [facility] [address] [place] [address] Wanda Bonilla ANP [address] [place] [address] Social History Tobacco Use Types Packs/Day Years [...] Visit [facility] [address] [place] [address] Wanda Bonilla ANP [address] [place] [address] 04/20/2025 2:30 PM EDT Office Visit [facility] OPTOM[facility]RY [address] [place] [address] Tyler, Smiley, OD [address] [place] [address] documented as of this encounter Visit Diagnoses Not on filedocumented in this encounter Additional Health Concerns Assessment Noted Time PHQ-9 Depression Total Score: 0 08/25/19 23 1:48 PM EST documented as of this encounter Care Teams Assistant Construction Superintendent Relationship Specialty Start Date End Date Wanda Bonilla ANP [address] [place] [address] PCP - General Family Medicine 09/03/20 Rajni García RN [address] [place] [address] Union RepresentativeAir Cargo Ground Operations Supervisor 09/18/24 12/15/24 April Michele MD [address] [facility] [address] [place] [address] Referring Physician Infectious Diseases 10/09/24 Lee Hubbard MD [address] [place] [address] [address] [place] [address] Urology 10/09/24 [facility] cardiology 11/12/23 documented as of this encounter
--- OUTSIDE RECORDS SUMMARY | 2025-03-31 06:16 | XMS_ITS | Encounter Summary ---
Author Organization [employer] Address [address] [facility] [address] [place] [address] Care Team Providers Care Radio Despatcher Name Role Phone Wanda Bonilla Primary Care Provider [phone] Rajni García RN Unavailable [phone] April Michele MD Unavailable [phone] Lee Hubbard MD Unavailable [phone] Reason for Visit * Reason Comments Med Refill Encounter Details Date Type Department Care Team (Late st Contact Info) Description 11/05/2023 Refill [facility] [address] [place] [address] Wanda Bonilla ANP [address] [place] [address] Social History Tobacco Use Types Packs/Day Years [...] Description 04/02/2025 2:30 PM EDT Office Visit [facility] [address] [place] [address] Wanda Bonilla ANP [address] [place] [address] 04/20/2025 2:30 PM EDT Office Visit [facility] OPTOMETRY [address] [place] [address] Tyler, Smiley, OD [address] [place] [address] documented as of this encounter Visit Diagnoses Not on filedocumented in this encounter Additional Health Concerns Assessment Noted Time PHQ-9 Depression Total Score: 0 08/25/19 23 1:48 PM EST documented as of this encounter Care Teams Radio Despatcher Relationship Specialty Start Date End Date Wanda Bonilla ANP [address] [place] [address] PCP - General Family Medicine 09/03/20 Rajni García RN [address] [place] [id number] Clear Coat SprayerAluminum Hydroxide Process Operator 09/18/24 12/15/24 April Michele MD [address] [facility] [address] [place] [address] Referring Physician Infectious Diseases 10/09/24 Lee Hubbard MD [address] [facility] [address] [place] [address] Urology 10/09/24 [facility] cardiology 11/12/23 documented as of this encounter
== END 2025-03-31 06:13 | disposition home or self-care (01) ==
LOC: CF 06:12
PROVIDERS: Visit Provider Anesthesiology
DX: Z13.89 Encounter for screening for other disorder (principal)

== ENCOUNTER 2025-05-12 09:24 | Emergency (ER) | payer MEDICAID, SELFPAY ==
[2025-05-12 09:51] VITALS: BP 150/78; PULSE 61; RESP 18; TEMP 36.6; O2SAT 98; BMI 30.5
[2025-05-12 10:14] LABS: MANUAL DIFF FLAG NO
[2025-05-12 10:17] LABS: Appearance Urine Cloudy; Glucose Urine UA Negative (Negative); PH 6.0 (5.0-9.0); Specific Gravity - Urine 1.020 (1.005-1.025); UMIC TRIGGER UACC YES
[2025-05-12 10:17] LABS: Hematocrit 36.7 % (37.0-47.0); Hemoglobin 12.4 g/dl (12.0-16.0); Imm Gran Abs Auto 0.00 X10*3/uL (0.00-0.03); Imm Gran Pct Auto 0.0 % (0.0-0.4); Lymphocytes Absolute Auto 1.0 X10*3/uL (1.2-4.9); Mean Corpuscular HGB Conc 33.8 g/dl (31.0-35.0); Mean Corpuscular Hemoglobin 28.8 pg (27.0-33.0); Mean Corpuscular Volume 85.2 fL (80.0-98.0); NRBC Abs Auto 0.000 X10*3/uL (0.0-0.012); NRBC Pct Auto 0.0 /100WBC (0.0-0.2); Red Blood Count 4.31 X10*6/uL (4.20-5.50); White Blood Count 3.3 X10*3/uL (4.8-10.8)
[2025-05-12 10:18] LABS: Platelet Count 98 X10*3/uL (160-400)
[2025-05-12 10:27] LABS: UACC Culture Trigger YES
[2025-05-12 10:31] LABS: Alanine Aminotransferase 50 U/L (0-31); Albumin Level 4.1 g/dL (3.5-5.0); Alkaline Phosphatase 129 U/L (39-117); Anion Gap 12 (12-20); Aspartate Amino Transferase 45 U/L (5-31); Blood Urea Nitrogen 13 mg/dL (9-16); Calcium 9.2 mg/dL (8.4-10.2); Carbon Dioxide 25 mmol/L (22-29); Chloride 111 mmol/L (96-108); Creatinine Clr Calc Pharmacy 66.3; Estimated Glomerular Filt Rate > 60; Lipase 21 U/L (8-78); Potassium 4.2 mmol/L (3.3-5.1); Sodium 144 mmol/L (135-145); Total Protein 7.3 g/dL (6.5-8.0)
--- NOTE | 2025-05-12 14:38 | ED.GENADULT ---
HPI - General Adult General Chief complaint: Abdominal Pain Stated complaint: back pain, pain upon urination Time Seen by Provider: 05/12/25 14:38 Source: patient Mode of arrival: ambulatory Limitations: no limitations History of Present Illness ED Provider: Eve Desai PA-C HPI narrative: Patient is a 60 year old assigned female at with a history of hepatitis C, asthma, kidney stones, and NSTEMI presenting to the emergency department today with right sided low back pain, right sided lower abdominal pain, and burning with urination. Patient states that over the last year she has had these symptoms intermittently and is now having the symptoms consistently. Patient denies any other complaints at this time. Related Data Home Medications ?Medication ?Instructions ?Recorded ?Confirmed gabapentin 300 mg capsule 300 mg PO BID 07/28/20 03/19/25 cholecalciferol (vitamin D3) 25 25 mcg PO QAM 10/12/22 03/19/25 mcg (1,000 unit) capsule (Vitamin D3) insulin lispro 100 unit/mL 20 unit subcut TID 10/12/22 03/19/25 subcutaneous pen pen needle, diabetic 31 gauge x #1,200 ea 10/12/22 03/19/2512/12 (UltiCare Pen Needle) pioglitazone 15 mg tablet 15 mg PO QAM 10/12/22 03/19/25 quetiapine 25 mg tablet 25 mg PO BID PRN Sleep 05/05/23 03/19/25 albuterol sulfate 2.5 mg/3 mL 2.5 mg inhalation Q4H PRN sob 09/10/23 03/19/25 (0.083 %) solution for nebulization aspirin 81 mg tablet,delayed 81 mg PO QPM 09/24/23 03/19/25 release semaglutide 0.25 mg or 0.5 mg (2 0.5 mg subcut MO 09/24/23 03/19/25 mg/3 mL) subcutaneous pen injector (Ozempic) amlodipine 10 mg tablet 10 mg PO QAM 11/12/23 03/19/25 insulin glargine 100 unit/mL (3 60 unit subcut BEDTIME 11/12/23 03/19/25 mL) subcutaneous pen (Lantus Solostar U-100 Insulin) lisinopril 40 mg tablet 40 mg PO QPM 11/12/23 03/19/25 quetiapine 100 mg tablet 150 mg PO BEDTIME 11/12/23 03/19/25 ropinirole 0.5 mg tablet 0.5 mg PO BEDTIME 11/12/23 03/19/25 rosuvastatin 5 mg tablet 5 mg PO BEDTIME 11/12/23 03/19/25 famotidine 20 mg tablet 20 mg PO TID 11/13/23 03/19/25 fluticasone propionate 110 1 puff inhalation Q12H 11/13/23 03/19/25 mcg/actuation HFA aerosol inhaler sennosides 8.6 mg-docusate sodium 2 cap PO BEDTIME PRN Constipation 11/13/23 03/19/25 50 mg capsule (Senna Plus) trazodone 150 mg tablet 150 mg PO BEDTIME PRN Sleep 11/13/23 03/19/25 carvedilol 6.25 mg tablet 6.25 mg PO 12/21/23 03/19/25 Previous Rx's ?Medication ?Instructions ?Recorded polyethylene glycol 3350 17 17 g PO DAILY 1 day #238 grams 02/07/24 gram/dose oral powder (Miralax) cyclobenzaprine 10 mg tablet 10 mg PO TID PRN muscle spasm #15 06/08/24 tabs loratadine 10 mg tablet (Claritin) 10 mg PO DAILY #30 tabs 06/08/24 sofosbuvir 400 mg-velpatasvir 100 1 tab PO DAILY 12 weeks #84 tabs 07/28/24 mg tablet (Epclusa) naproxen 500 mg tablet 500 mg PO BID pain #40 tabs 12/25/24 tamsulosin 0.4 mg capsule (Flomax) 0.4 mg PO BEDTIME to help pass 12/25/24 kidney stones #20 caps oxycodone 5 mg tablet 5 mg PO Q8H PRN pain (scale score 01/19/25 7-10) 3 days #9 tabs pyridoxine (vitamin B6) 100 mg 100 mg PO QAM #90 tabs 02/11/25 tablet lidocaine 5 % topical patch 2 patch topical DAILY PRN Pain #30 04/23/25 ea cefuroxime axetil 250 mg tablet 500 mg (2 x 250 mg) PO BID 7 days 05/12/25 #28 tabs fluconazole 150 mg tablet 150 mg PO Q3D 2 doses #2 tabs 05/12/25 ibuprofen 200 mg tablet 400 mg (2 x 200 mg) PO Q8H PRN 05/12/25 pain #14 tabs Allergies Allergy/AdvReac Type Severity Reaction Status Date / Time morphine AdvReac Abdominal Verified 05/12/25 09:54 Pain Review of Systems Constitutional: Constitutional: Reports as per HPI Eyes: Eyes: Reports as per HPI ENT: Reports as per HPI Cardiovascular: Cardiovascular: Reports as per HPI Respiratory: Respiratory: Reports as per HPI Gastrointestinal: Gastrointestinal: Reports as per HPI Genitourinary: Genitourinary: Reports as per HPI Musculoskeletal: Musculoskeletal: Reports as per HPI Integumentary/Breasts: Skin/Breast: Reports as per HPI Neurologic: Reports as per HPI Psychiatric: Psychiatric: Reports as per HPI Endocrine: Endocrine: Reports as per HPI Hematologic/Lymphatic: Hematologic/Lymphatic: Reports as per HPI Allergic/Immunologic: Allergic/Immunologic: Reports as per HPI [facility] Past Medical History Attestation statement: The following information was validated with the patient. Source: old records reviewed and nursing notes reviewed Medical History Bilateral hand pain Disc disease, degenerative, cervical Neuropathy Somnolence, daytime Flank pain RUQ abdominal pain Left foot pain COVID-19 Hepatitis C Rheumatoid arthritis Flank pain Renal stones Bipolar disorder Panic disorder Depression Anxiety Abdominal distension (gaseous) Asthma Hyperlipidemia 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 Mother Diabetes mellitus Sister Diabetes mellitus Brother No problems noted. Paternal Uncle Colon cancer Social History Social History Household Members: None Housing: Apartment Do you presently have visiting nurse or other home services: Yes Alcohol intake: current Alcohol intake frequency: former alcohol drinker Alcohol type: beer Patient Tobacco Use Status: Current everyday Tobacco user Tobacco use type: Cigarette Cigarettes Per Day: 2 Years Smoked: 15 Advance Directives: No Advance Directives Information Provided: Yes Do you have a plan to hurt others: No Plan service: No Physical Exam ED Vital Signs: Vital Signs - 24 hr 05/12/25 09:51 05/12/25 15:06 Temperature 98 F 97.8 F Pulse Rate 61 59 Respiratory Rate 18 18 Blood Pressure 150/78 H 163/75 H Pulse Oximetry 98 99 Oxygen Delivery Method Room Air Room Air BMI result Body Mass Index 30.5 Const General: cooperative, no acute distress, alert and awake Nutritional Appearance: well nourished Orientation/consciousness: patient oriented x3 HENMT Head: Yes normal to inspection and Yes atraumatic Ears: hearing grossly normal bilaterally and external ears normal General nose exam: Normal external nose present, no nasal discharge noted and no epistaxis Face and sinus: Yes normal facial exam, No abrasion and No laceration Mouth: Normal oral and palatal mucosa present, no drooling and no muffled voice Eyes General: appearance normal, both eyes and all related structures Periorbital: periorbital findings normal Eyelids: Yes eyelids normal Conjunctivae: conjunctivae normal Pupils: Equal, round and reactive pupils present EOM: EOMs intact bilaterally Neck Neck: Yes normal visual inspection and Yes full ROM Resp Effort & Inspection: normal respiratory effort and able to speak in complete sentences Neuro General: patient oriented x3, moves all extremities and CN's II-XI intact bilaterally Cranial nerves: Yes Equal, round and reactive pupils present Cognition (Neuro): normal cognition Extrem General: Yes normal to inspection, Yes full ROM and Yes capillary refill normal Psych Appearance: grossly normal Mental Status: mental status grossly normal Affect: normal affect Attitude: cooperative Thought process: Normal thought process present Thought content: Normal thought content present Insight: Good insight present (Psych) Medical Decision Making Medical Decision Making MDM Narrative: Patient is a 60 year old assigned female at with a history of hepatitis C, asthma, kidney stones, and NSTEMI presenting to the emergency department today with right sided low back pain, right sided lower abdominal pain, and burning with urination. Patient's physical exam was as noted in the physical exam portion of this note. Patient's blood work was consistent with her baseline - including elevated LFTs. Patient's urine showed a possible UTI and given her symptoms - will treat. I explained my physical exam findings as well as all test results to the patient. I answered all questions asked by the patient. I stressed the importance of the patient taking her medication as directed (either prescribed or as the over the counter packaging recommends). I stressed the importance of the patient following up with her primary care provider. I stressed the importance of the patient returning to the emergency department immediately if her symptoms were to worsen or if she were to develop any dizziness, shortness of breath, difficulty breathing, chest pain, blurry vision, loss of vision, nausea, vomiting, abdominal pain, fever, chills, back pain, or any other complaints. Patient verbalized agreement and understanding with this treatment plan and discharge. Differential Diagnosis Differential Diagnoses: The differential diagnosis associated with the presentation includes UTI Dysuria Yeast infection Admission/Observation Consideration of admission/observation: Escalation of care including admission/observation considered Patient would have been admitted to the hospital had her work up had any findings where hospital admission was appropriate and her clinical presentation warranted hospital admission. Lab Data [facility] Lab Attestation statement: I reviewed the patient's lab results. My interpretation of these results are in the [facility] Rationale portion of this note. 05/12/25 10:06 05/12/25 10:06 Labs: Lab Results 05/12/25 05/12/25 Range/Units 10:03 10:06 WBC 3.3 L (4.8-10.8) X10*3/uL RBC 4.31 (4.20-5.50) X10*6/uL Hgb 12.4 (12.0-16.0) g/dl Hct 36.7 L (37.0-47.0) % MCV 85.2 (80.0-98.0) fL MCH 28.8 (27.0-33.0) pg MCHC 33.8 (31.0-35.0) g/dl RDW 12.7 (11.0-16.0) % Plt Count 98 L (160-400) X10*3/uL MPV 9.9 (9.4-12.3) fL Immature Gran % (Auto) 0.0 (0.0-0.4) % Neut % (Auto) 54.2 (45-73) % Lymph % (Auto) 31.6 (20-40) % Toombs % (Auto) 11.2 H (2-11) % Eos % (Auto) 2.7 (0-4) % Baso % (Auto) 0.3 (0-2) % Lymph # (Auto) 1.0 L (1.2-4.9) X10*3/uL Toombs # (Auto) 0.4 (0.1-1.2) X10*3/uL Eos # (Auto) 0.1 (0.0-0.4) X10*3/uL Baso # (Auto) 0.0 (0.0-0.2) X10*3/uL Abs Immat Gran (auto) 0.00 (0.00-0.03) X10*3/uL Absolute Neuts (auto) 1.8 L (2.0-8.3) x10*3/uL Absolute Nucleated RBC 0.000 (0.0-0.012) X10*3/uL Nucleated RBC % (auto) 0.0 (0.0-0.2) /100WBC Sodium 144 (135-145) mmol/L Potassium 4.2 (3.3-5.1) mmol/L Chloride 111 H (96-108) mmol/L Carbon Dioxide 25 (22-29) mmol/L Anion Gap 12 (12-20) BUN 13 (9-16) mg/dL Creatinine 0.87 (0.5-1.4) mg/dL Estim Creat Clear Calc 66.3 Estimated GFR > 60 Random Glucose 88 (60-115) mg/dL Calcium 9.2 (8.4-10.2) mg/dL Total Bilirubin 0.4 (0.0-1.0) mg/dL Direct Bilirubin 0.2 (0.0-0.5) mg/dL AST 45 H (5-31) U/L ALT 50 H (0-31) U/L Alkaline Phosphatase 129 H (39-117) U/L Total Protein 7.3 (6.5-8.0) g/dL Albumin 4.1 (3.5-5.0) g/dL Lipase 21 (8-78) U/L Urine Color Yellow Urine Appearance Cloudy Urine pH 6.0 (5.0-9.0) Ur Specific Lane 1.020 (1.005-1.025) Urine Protein Trace (Neg-Trace) mg/dL Urine Glucose (UA) Negative (Negative) mg/dL Urine Ketones Negative (Negative) mg/dL Urine Blood Negative (Negative) Urine Nitrite Negative (Negative) Ur Leukocyte Esterase Small (1+) H (Negative) Urine RBC 0-2 (0-2) /HPF Urine WBC 0-5 (0-5) /HPF Ur Squamous Epith Cells >20 (0-2) /HPF Urine Bacteria 4+ (None Seen) Hyaline Casts 0-2 (0-2) /LPF Tests considered The following testing was considered but not selected: I considered obtaining a CT scan of the abdomen/pelvis however, the patient's current presentation does not warrant this. Prescription Management I considered prescription management with: Antibiotic (patient prescribed antibiotic for UTI) Discharge Plan Discharge Clinical Impression: Acute flank pain, UTI (urinary tract infection) Patient Disposition: Home, Self-Care Instructions: Urinary Tract Infection in Women (DC), Flank Pain (ED) Additional Instructions: IF you are prescribed home medications and/or you are taking over the counter medications at home- it is very important you continue to do so as prescribed / directed unless told otherwise. SI le recetan medicamentos y/o est? tomando medicamentos de venta edward, es muy importante que contin?e haci?ndolo seg?n lo recetado/indicado a menos que le indiquen lo contrario. Follow up with your primary care provider. Return to the emergency department immediately if your symptoms worsen or if you develop any dizziness, shortness of breath, difficulty breathing, chest pain, blurry vision, loss of vision, nausea, vomiting, abdominal pain, fever, chills, back pain, or any other complaints. Luba?seguimiento?con hernadez m?dico de atenci?n primaria. Acuda inmediatamente al servicio de urgencias si [place] s?ntomas empeoran o si presenta falta de aliento, dificultad para respirar, dolor tor?cico, mareos, aturdimiento, dolor de espalda, dolor abdominal, fiebre, escalofr?os o cualquier otro s?ntoma. Please see the information below about our Patient Portal. If you are not yet enrolled in the [facility] Patient Portal, you will receive an enrollment email invitation following your visit to any [facility] care setting. You may also self-enroll in the Patient Portal by visiting our website: [email or web address] The following information is required to access the Patient Portal: - Your [facility] Medical Record Number - Your personal home email address (must match what is in your electronic medical record, Registration staff can assist with this) - Name - Date of Capabilities of the Patient Portal: - Message some providers - View upcoming appointments - Access your health summary, medical history, and visit history - View current conditions and allergies - View procedure and lab results - View your medications, including guidelines, side effects, and precautions - Complete pre-appointment questionnaires requested by your provider - Ready summary reports of your office visits and procedures To access the Patient Portal Mobile Jeannine, follow these directions: - Search [employer] in the Jeannine Store or S[employer] Store - Download the Jeannine - Search for [facility] - Enter your login/password Portal del paciente Si usted no esta inscrito en el portal de pacientes de [facility] y [facility], recibira sasha invitacion de inscripcion despues de hernadez visita al [facility] o al [facility] via correo electronico. Tambien puede inscribirse voluntariamente en el portal de pacientes visitando nuestra pagina web: [email or web address] La siguiente informacion sera requerida para acceder al portal: - Hernadez judd de historia medica de [facility] - Hernadez direccion de correo electronico personal - Nombre - Fecha de nacimiento Capacidades: Las siguientes capacidades estan disponibles en el portal de pacientes: - Enviar mensajes a algunos doctores - Verificar proximas citas - Acceso a hernadez historial de janett, registro medico e historial de visitas - Alec las condiciones actuales y alergias alec procedimientos y resultados del laboratorio - Alec [place] medicamentos, incluyendo las pautas - Efectos secundarios y precauciones - Completar o llenar formularios / cuestionarios de - Citas solicitadas por hernadez doctor - Leer los resumenes de reportes medicos de [place] visitas y procedimientos [place] acceder a la aplicacion movil: - [facility] [employer] en la Jeannine Store o [employer]ak Store - Descargue la aplicacion - [facility] - Ingrese hernadez nombre de usuario / Contrasena Prescriptions: New cefuroxime axetil 250 mg tablet 500 mg PO BID 7 Days Qty: 28 0RF fluconazole 150 mg tablet 150 mg PO Q3D Qty: 2 0RF ibuprofen 200 mg tablet 400 mg PO Q8H PRN (Reason: pain) Qty: 14 0RF No Action polyethylene glycol 3350 [Miralax] 17 gram/dose powder 17 g PO DAILY 1 Days Qty: 238 0RF Rx Instructions: Mix Miralax with 64 oz(8 cups) of Crystal light. Take 2 tablets of Dulcolax qt 12 pm. Wait to have your 1st bowel movement, then begin drinking Miralax. Drink a glass of Miralax every 10-15 minutes until you are finished. You will drink at least another 4 cups of clear liquid of your choice over the next 2 hours. Please drink as many clear liquids as possible You may have clear liquids up to four hours before your procedure sofosbuvir-velpatasvir [Epclusa] 400-100 mg tablet 1 tab PO DAILY 84 Days Qty: 84 0RF pyridoxine (vitamin B6) 100 mg tablet 100 mg PO QAM Qty: 90 3RF lidocaine 5 % adhesive patch,medicated 2 patch topical DAILY PRN (Reason: Pain) Qty: 30 3RF quetiapine 25 mg tablet 25 mg PO BID PRN (Reason: Sleep) insulin glargine [Lantus Solostar U-100 Insulin] 100 unit/mL (3 mL) insulin pen 60 unit subcut BEDTIME quetiapine 100 mg tablet 150 mg PO BEDTIME lisinopril 40 mg tablet 40 mg PO QPM amlodipine 10 mg tablet 10 mg PO QAM ropinirole 0.5 mg tablet 0.5 mg PO BEDTIME rosuvastatin 5 mg tablet 5 mg PO BEDTIME famotidine 20 mg tablet 20 mg PO TID Senna Plus 8.6-50 mg capsule 2 cap PO BEDTIME PRN (Reason: Constipation) fluticasone propionate 110 mcg/actuation HFA aerosol inhaler 1 puff INHALATION Q12H trazodone 150 mg Tablet 150 mg PO BEDTIME PRN (Reason: Sleep) oxycodone 5 mg tablet 5 mg PO Q8H PRN (Reason: pain (scale score 7-10)) 3 Days Qty: 9 0RF Rx Instructions: Partial Fill upon patient request. loratadine [Claritin] 10 mg tablet 10 mg PO DAILY Qty: 30 0RF cyclobenzaprine 10 mg tablet 10 mg PO TID PRN (Reason: muscle spasm) Qty: 15 0RF gabapentin 300 mg capsule 300 mg PO BID (DME) pen needle, diabetic [UltiCare Pen Needle] 31 gauge x 5/16 needle See Rx Instructions .ROUTE QID Qty: 1200 Rx Instructions: As directed insulin lispro 100 unit/mL insulin pen 20 unit subcut TID pioglitazone 15 mg tablet 15 mg PO QAM cholecalciferol (vitamin D3) [Vitamin D3] 25 mcg (1,000 unit) capsule 25 mcg PO QAM albuterol sulfate 2.5 mg /3 mL (0.083 %) solution for nebulization 2.5 mg inhalation Q4H PRN (Reason: sob) carvedilol 6.25 mg tablet 6.25 mg PO tamsulosin [Flomax] 0.4 mg capsule 0.4 mg PO BEDTIME Qty: 20 0RF naproxen 500 mg tablet 500 mg PO BID Qty: 40 0RF Ozempic 0.25 mg or 0.5 mg (2 mg/3 mL) pen injector 0.5 mg subcut MO aspirin 81 mg tablet,delayed release (DR/EC) 81 mg PO QPM Referrals: Wanda Bonilla, TILE ROOFER [Primary Care Provider, Internal Medicine] Interventions: ED Discharge Assessment Last Done: 05/12/25 15:06 Discharge Date/Time: 05/12/25 15:08 Print Language: Thai
[2025-05-12 15:06] VITALS: BP 163/75; PULSE 59; RESP 18; TEMP 36.6; O2SAT 99
== END 2025-05-12 15:08 | disposition home or self-care (01) ==
LOC: HO.ED 14:54
PROVIDERS: Emergency Provider Emergency Medicine; PCP Nurse Practitioner Primary Care
DX: R10.A1 Flank pain, right side (principal); M54.50 Low back pain, unspecified; N39.0 Urinary tract infection, site not specified; Z72.0 Tobacco use; B18.2 Chronic viral hepatitis C; E11.9 Type 2 diabetes mellitus without complications; I10 Essential (primary) hypertension; Z79.899 Other long term (current) drug therapy
CPT/HCPCS: 36415; 80048; 80076; 81001; 83690; 85025; 87086; 99282

== ENCOUNTER 2025-05-14 09:27 | Outpatient (REF) | payer MEDICAID, SELFPAY ==
--- NOTE | ~2025-05-14 | US_ITS ---
CLINICAL HISTORY: K74.60 - Unspecified cirrhosis of liver --- Additional Notes or Special Instructions: screen for HCC and ascites US abdomen limited Comparison: 08/29/2024 Findings: The visualized pancreas is normal. The aorta and inferior vena cava are normal caliber. The appearance of the liver is consistent with the clinical diagnosis with no new focal lesions. There is no intrahepatic bile duct dilatation. The common duct is 8.0 mm in diameter. There are no abnormal findings in the gallbladder fossa. There is no sonographic Gonzalez sign. The main portal vein is antegrade. The right kidney is 8.9 cm in length. No ascites. IMPRESSION: 1. Findings consistent with cirrhosis. This document has been electronically signed by: Ck Landaverde MD on 05/15/2025 09:54:34
--- OUTSIDE RECORDS SUMMARY | 2025-05-14 10:47 | XMS_ITS | Clinical Summary ---
Author Organization [address] [facility] Address [address] [place] [address] Phone Care Team Providers Care Computer Networking Instructor Adjunct Name Role Phone Regina Su ADRIANNE Primary [...] Last Done Comments Breast Cancer Screening 1965 Colorectal Cancer Screening: Colonoscopy 1963 Diabetes: Annual Foot Exam 1973 Diabetes: Annual Retina Eye Exam 1973 RSV Immunization Adult Patients (1 - Risk 50-74 years 1-dose series) 2013 Zoster Vaccines (1 of 2) 2013 Pneumococcal Vaccine: 50+ Years (2 of 2 - PCV) 07/09/2015 07/09/2014 Hepatitis A Vaccines (2 of 2 - Risk 2-dose series) 08/28/2020 02/26/2020, 07/08/2009, 07/14/2008 Hepatitis C Screening 06/13/2024 Social Influencers of [...] topic Insurance MEDICAID - [place] Care Teams Computer Networking Instructor Adjunct Relationship Specialty Start Date End Date Regina Su FNP [address] [place] [address] PCP - General Nurse Practitioner 07/11/24
== END 2025-05-14 09:28 | disposition home or self-care (01) ==
LOC: HO.US 09:27
PROVIDERS: PCP Nurse Practitioner Primary Care; Visit Provider Internal Medicine Gastroenterology
DX: K74.60 Unspecified cirrhosis of liver (principal)
CPT/HCPCS: 76705

== ENCOUNTER → 2025-05-14 09:31 | Outpatient (BNV) | payer MEDICAID, SELFPAY | PROVIDERS: PCP Nurse Practitioner Primary Care; Visit Provider Specialist | DX: K74.60 Unspecified cirrhosis of liver (principal) | CPT/HCPCS: 76705 ==

== ENCOUNTER 2025-05-20 13:21 | Outpatient (AMB) | payer MEDICAID, SELFPAY ==
[2025-05-20 13:31] VITALS: BP 110/62; PULSE 63; O2SAT 97; BMI 30.5
--- NOTE | 2025-05-20 13:31 | A.OFFVIS_ITS ---
Vital Signs 05/20/25 13:31 Height 5 ft 3 in Weight 171 lb 15.369 oz BMI 30.5 BP 110/62 Blood Pressure Location Lt brachial Position Sitting Pulse 63 Pulse Source Pulse Oximeter Pulse Oximetry (%) 97 Oxygen Delivery Method Room Air Intake Visit Reasons: Asthma Intake Note: pt is here for follow up and states her breahting is well Outbound Sales Advisor Required: No Electronic Warfare Operator: Electronic Warfare Operator offered & declined Allergies morphine Adverse Reaction (Verified 05/20/25 13:40) Abdominal Pain Medication List - Last Reconciled 05/20/25 by Jennifer Amaya MD albuterol sulfate 2.5 mg inhalation Q4H PRN amlodipine 10 mg PO QAM aspirin 81 mg PO QPM carvedilol 6.25 mg PO cefuroxime axetil 500 mg (2 x 250 mg) PO BID 7 days cholecalciferol (vitamin D3) (Vitamin D3) 25 mcg PO QAM cyclobenzaprine 10 mg PO TID PRN famotidine 20 mg PO TID fluconazole 150 mg PO Q3D 2 doses fluticasone propionate 110 mcg/actuation 1 puff inhalation Q12H gabapentin 300 mg PO BID ibuprofen 400 mg (2 x 200 mg) PO Q8H PRN insulin glargine (Lantus Solostar U-100 Insulin) 60 units subcut BEDTIME insulin lispro 20 units subcut TID lidocaine 5% 2 patches topical DAILY PRN lisinopril 40 mg PO QPM loratadine (Claritin) 10 mg PO DAILY naproxen 500 mg PO BID oxycodone 5 mg PO Q8H PRN 3 days pen needle, diabetic (UltiCare Pen Needle) As directed pioglitazone 15 mg PO QAM polyethylene glycol 3350 (Miralax) 17 grams PO DAILY 1 day pyridoxine (vitamin B6) 100 mg PO QAM quetiapine 25 mg PO BID PRN quetiapine 150 mg PO BEDTIME ropinirole 0.5 mg PO BEDTIME rosuvastatin 5 mg PO BEDTIME semaglutide (Ozempic) 0.5 mg subcut MO sennosides-docusate sodium 8.6-50 mg (Senna Plus) 2 caps PO BEDTIME PRN sofosbuvir-velpatasvir 400-100 mg (Epclusa) 1 tab PO DAILY 12 weeks tamsulosin (Flomax) 0.4 mg PO BEDTIME trazodone 150 mg PO BEDTIME PRN Do you need a note to return to daycare/school/sports/work: No HPI HPI Asthma: Details: This 60 years old female with past history of smoking and now has quit, comes for follow-up for her bronchial asthma. She is on Flovent -110 1 puff twice a day and needs albuterol solution or the nebulizer only once in a while. She has history of smoking 1 pack a day for 15 years but quit early 2024 now smokes 1 cigarette only once in a while. Except for mild intermittent cough she denies any respiratory problems. She has had no acute exacerbation in the last 6 months. [facility], [facility] Medical History Bilateral hand pain Disc disease, degenerative, cervical Neuropathy Somnolence, daytime Flank pain RUQ abdominal pain Left foot pain COVID-19 Hepatitis C Rheumatoid arthritis Flank pain Renal stones Bipolar disorder Panic disorder Depression Anxiety Abdominal distension (gaseous) Asthma Hyperlipidemia 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 Mother Diabetes mellitus Sister Diabetes mellitus Brother No problems noted. Paternal Uncle Colon cancer Social History Household Members: None Housing: Apartment Do you presently have visiting nurse or other home services: Yes Alcohol intake: current Alcohol intake frequency: former alcohol drinker Alcohol type: beer Patient Tobacco Use Status: Former Tobacco user Tobacco use type: Cigarette Cigarettes Per Day: 2 Years Smoked: 15 service: No Review of Systems Const All systems reviewed & are unremarkable except as noted in HPI and below Eyes Reports no additional complaints ENT Reports no additional complaints Card Denies chest pain, Denies irregular heart rhythm and Denies leg edema Resp Reports as per HPI GI Reports dyspepsia and Reports heartburn Reports no additional complaints Musc Reports back pain Skin/Breast Reports system reviewed and no additional complaints, except as documented Neuro Reports no additional complaints Psych Reports no additional complaints Endo Reports other (IDDM ) Aller/Immun Reports no additional complaints Physical Exam Vital Signs: Last Vital Signs Pulse 63 05/20/25 13:31 BP 110/62 05/20/25 13:31 Pulse Ox 97 05/20/25 13:31 Oxygen Delivery Method Room Air 05/20/25 13:31 BMI result Body Mass Index 30.5 Const General: healthy appearing (except for being slightly over weight ), comfortable, no acute distress, alert and awake Orientation/consciousness: patient oriented x3 HEENT Head: Yes normal to inspection General nose exam: No nasal polyps present and No nasal discharge present Face and sinus: Yes sinuses nontender Mouth: oropharynx normal (Mallampatti class=3) Throat: Yes posterior oropharynx normal Eyes General: appearance normal, both eyes and all related structures Neck Neck: Yes normal visual inspection, Yes no lymphadenopathy, Yes trachea midline, Yes no JVD and Yes other (Neck circumference=15.5 ) Thyroid: Thyroid normal Chest Chest palpation & inspection: normal inspection of the chest, normal palpation of entire chest wall and no tenderness Resp Other: PERCUSSION NOTE RESONANT, HAS GOOD BREATH SOUNDS ON BOTH SIDES, EQUAL, NO WHEEZES OR CREPITATIONS Effort & Inspection: normal respiratory effort Auscultation: no crackles, no wheezes and diminished lung sounds (slightly distant ) Cardio Palpation: normal PMI Rate: regular rate Rhythm: regular rhythm Heart sounds: no gallops and no murmurs Peripheral pulses: Peripheral pulses 2+ throughout GI Palpation (GI): Soft to palpation, nontender, No hepatosplenomegaly present and no masses Auscultation: normal bowel sounds Back/Spine/Pelvis Thoracic/Lumbar Spine: thoracic and lumbar spine normal to inspection Skin General skin exam: no rashes or lesions noted Neuro General: patient oriented x3 and no focal motor deficits Cranial nerves: Yes CN's II-XII intact bilaterally Extrem General: Yes normal to inspection, Yes no clubbing, cyanosis or edema and Yes no calf tenderness Psych Appearance: grossly normal and well kempt Speech and movement: Normal speech and movement present Assessment & Plan Assessment & Plan (1) Asthma: Comment: ASTHMA /COPD, NEEDS TO HAVE PFT s TO SEE IF SHE WILL NEED SOME STRONGER AGENTS . HOWEVER PATIENT HAS NOT BEEN ABLE TO DO THE TEST . CLINICALLY SHE HAS ASTHMA/COPD, WHICH IS WELL CONTROLLED AT THIS TIME. SMOKING ONLY ABOUT 1- 2 CIGARETTES A DAY Code(s): J45.909 - Unspecified asthma, uncomplicated Category: Medical Plan: Continue Flovent-110 2 puffs b.i.d. and albuterol solution in the nebulizer Q 6 hours p.r.n. when at home and albuterol HFA 2 puffs Q 6 hours p.r.n. when outdoors. (2) Sleep disorder, unspecified: Comment: HISTORY OF SNORING, FREQUENT AWAKENING AT NIGHT WITH SHORTNESS OF BREATH,, DAYTIME FATIGUE/SLEEPINESS, OBSTRUCTIVE SLEEP APNEA WAS SUSPECTED . PATIENT DID TAKE THE SLEEP TEST DEVICE AT HOME, BUT NEVER DID THE TEST . SUBSEQUENTLY PATIENT DECIDED, NOT TO UNDERGO ANY SLEEP TEST AND RETURNED THE SLEEP STUDY DEVICE . SHE TELLS ME THAT SHE IS NOW SLEEPING GOOD AND SHE DOES NOT NEED ANY ADDITIONAL HELP. Code(s): G47.9 - Sleep disorder, unspecified Category: Medical Plan: SLEEP HYGIENE EXPLAINED Plan Talked about need to lose some weight, and also advised always sleep in the lateral position. Medications: New fluticasone propionate 110 mcg/actuation administer with spacer 2 puffs inhalation BID 12 grams 5RF asthma/copd 30 days albuterol sulfate 90 mcg/actuation (Ventolin HFA) 2 puffs inhalation Q4-6H PRN 8.5 grams 5RF shortness of breath or wheezing 30 days Changed From fluticasone propionate 110 mcg/actuation 1 puff inhalation Q12H To fluticasone propionate 110 mcg/actuation 2 puffs inhalation Q12H Coding Level of Care Code Est Pt Level 3 (72921) Diagnoses Asthma J45.909 Sleep disorder, unspecified G47.9
--- OUTSIDE RECORDS SUMMARY | 2025-05-20 18:53 | XMS_ITS | Encounter Summary ---
Author Organization [employer] Address [address] [facility] 7t [place] [address] Care Team Providers Care Donor Services Technician Name Role Phone Wanda Bonilla Primary Care Provider [phone] Rajni García RN Unavailable [phone] April Michele MD Unavailable [phone] Lee Hubbard MD Unavailable Rajni García RN Unavailable [phone] La Haddad Unavailable Reason for Visit * Reason Onset Date Comments Med Refill 10/01/2023 Encounter Details Date Type Department Care Team (Late st Contact Info) Description 10/01/2023 Telephone [facility] MEDICINE [address] [place], [place] [phone] Wanda Bonilla ANP [address] [place], [place] [phone] Med Refill Social History Tobacco Use Types [...] 250 MG tablet To be sent to: [facility] pharmacy documented in this encounter Plan of Treatment Upcoming Encounters Date Type Department Care Team (Late st Contact Info) Description 07/02/2025 1:00 PM EST Office Visit [facility] MEDICINE [address] [place], [place] [phone] Wadna Bonilla ANP 230 [place] [address] 09/08/2025 1:30 PM EST Office Visit [facility] OPTOMETRY [address] [place], [place] [phone] Smiley [place], JUDITH 230 [place] [address] documented as of this encounter Visit Diagnoses Not on filedocumented in this encounter Additional Health Concerns Assessment Noted Time PHQ-9 Depression Total Score: 0 08/25/19 23 1:48 PM EST documented as of this encounter Care Teams Donor Services Technician Relationship Specialty Start Date End Date Wanda Bonilla ANP [address] [place] [address] PCP - General Family Medicine 09/03/20 Rajni García, RN [address] [facility] [address] Paving ForemanManpower Development Specialist Manager 09/18/24 12/15/24 April Michele MD [address] [facility] [address] [place] [address] Referring Physician Infectious Diseases 10/09/24 Lee Hubbard MD [address] [place] [address] Urology 10/09/24 Rajni García, RN [address] [facility] [place] [address] Registered Nurse Family Medicine 05/13/25 La Haddad 05/13/25 [facility] cardiology 11/12/23 documented as of this encounter
--- OUTSIDE RECORDS SUMMARY | 2025-05-20 18:53 | XMS_ITS | Encounter Summary ---
Author Organization [employer] Address [address] [facility] 7t [place] [address] Care Team Providers Care Petroleum Engineering Professor Name Role Phone Wanda Bonilla Primary Care Provider [phone] Rajni García RN Unavailable [phone] April Michele MD Unavailable [phone] Lee Hubbard MD Unavailable [phone] Rajni García RN Unavailable La Haddad Unavailable Encounter Details Date Type Department Care Team (Late st Contact Info) Description 08/28/2023 Orders Only [facility] MEDICINE 230 [place], [place] [phone] Wanda Bonilla ANP [address] [place], [place] [phone] Social History Tobacco Use Types Packs/Day Years [...] Description 07/02/2025 1:00 PM EST Office Visit [facility] MEDICINE 230 [place] [address] Wadna Bonilla ANP [address] [place] [address] 09/08/2025 1:30 PM EST Office Visit [facility] OPTOMETRY [address] [place] [address] Tyler, Smiley, OD 230 [place] [address] documented as of this encounter Visit Diagnoses Not on filedocumented in this encounter Additional Health Concerns Assessment Noted Time PHQ-9 Depression Total Score: 0 08/25/19 23 1:48 PM EST documented as of this encounter Care Teams Petroleum Engineering Professor Relationship Specialty Start Date End Date Wanda Bonilla ANP [address] [place] [address] PCP - General Family Medicine 09/03/20 Rajni García RN 505 [place] [address] Supervisor PhotoengravingMusical String Maker 09/18/24 12/15/24 April Michele MD [address] [facility] [address] [place] [address] Referring Physician Infectious Diseases 10/09/24 Lee Hubbard MD [address] [place] [address] Urology 10/09/24 Rajni García RN 505 [place] [address] Registered Nurse Family Medicine 05/13/25 La Haddad 05/13/25 [facility] cardiology 11/12/23 documented as of this encounter
--- OUTSIDE RECORDS SUMMARY | 2025-05-20 18:53 | XMS_ITS | Encounter Summary ---
Author Organization [employer] Address [address] [facility] 7t [place] [address] Care Team Providers Care Histopathologist Name Role Phone Irene Wanda HARO Primary Care Provider [phone] Rajni García RN Unavailable [phone] April Michele MD Unavailable [phone] Lee Hubbard MD Unavailable Rajni García RN Unavailable [phone] La Haddad Unavailable Reason for Visit * Reason Comments Med Refill Encounter Details Date Type Department Care Team (Late st Contact Info) Description 12/03/2023 Telephone [facility] MEDICINE 230 [place], [place] [phone] Shelli Vo MD 230 [place], [place] [phone] Med Refill Social History Tobacco Use Types [...] the past 12 months, has t he [email or web address], gas, oil or water company threatened to [...] Description 07/02/2025 1:00 PM EST Office Visit [facility] MEDICINE 230 [place] [address] Wanda Bonilla, TAHIR 230 [place] [address] 09/08/2025 1:30 PM EST Office Visit [facility] OPTOMETRY [address] [place] [address] Smiley [place], JUDITH 230 [place] [address] documented as of this encounter Visit Diagnoses Diagnosis Asthma, unspecified asthma severity, unspecified whether complicated, unspecified whether persistent documented in this encounter Additional Health Concerns Assessment Noted Time PHQ-9 Depression Total Score: 5 11/23/19 24 1:33 PM EDT documented as of this encounter Care Teams Histopathologist Relationship Specialty Start Date End Date Wanda Bonilla ANP 230 [place] [address] PCP - General Family Medicine 09/03/20 Rajni García, RN 505 [place] [address] Decorator Lighting FixturesClinical Manager 09/18/24 12/15/24 April Michele MD [address] [facility] [address] [place] [address] Referring Physician Infectious Diseases 10/09/24 Lee Hubbard MD [address] [place] [address] Urology 10/09/24 Rajni García, TIM 505 [place] [address] Registered Nurse Family Medicine 05/13/25 La Haddad 05/13/25 [facility] cardiology 11/12/23 documented as of this encounter
--- OUTSIDE RECORDS SUMMARY | 2025-05-20 18:53 | XMS_ITS | Encounter Summary ---
Author Organization [employer] Address [address] [place] [address] 7t [place] [address] Care Team Providers Care Ct Scan Tech Name Role Phone Wanda Bonilla Primary Care Provider [phone] Rajni García RN Unavailable [phone] April Michele MD Unavailable Lee Hubbard MD Unavailable Rajni García RN Unavailable [phone] La Haddad Unavailable Reason for Visit * Reason Onset Date Comments triage 07/13/2022 Encounter Details Date Type Department Care Team (Late st Contact Info) Description 07/13/2022 Telephone [facility] MEDICINE 230 [place], [place] [phone] Wanda Bonilla ANP [address] [place] [address] triage Social History Tobacco Use Types Packs/Day [...] caller The caller accepted this outcome speaks italian documented in this encounter Plan of Treatment Upcoming Encounters Date Type Department Care Team (Late st Contact Info) Description 07/02/2025 1:00 PM EST Office Visit [facility] MEDICINE [address] [place] [address] Wanda Bonilla ANP [address] [place] [address] 09/08/2025 1:30 PM EST Office Visit [facility] OPTOMETRY [address] [place] [address] Tyler, Smiley, OD 230 [place] [address] documented as of this encounter Visit Diagnoses Not on filedocumented in this encounter Care Teams Ct Scan Tech Relationship Specialty Start Date End Date Wanda Bonilla ANP 230 [place] [address] PCP - General Family Medicine 09/03/20 Rajni García RN [address] [facility] [place] [address] Solar Installation HelperService Crew Supervisor 09/18/24 12/15/24 April Michele MD [address] [facility] [address] [place] [address] Referring Physician Infectious Diseases 10/09/24 Lee Hubbard MD [address] [place] [address] Urology 10/09/24 Rajni García, TIM [address] [facility] [address] Registered Nurse Family Medicine 05/13/25 La Haddad 05/13/25 [facility] cardiology 11/12/23 documented as of this encounter
--- OUTSIDE RECORDS SUMMARY | 2025-05-20 18:53 | XMS_ITS | Encounter Summary ---
Author Organization [employer] Address [address] [place] [address] 7t [place] [address] Care Team Providers Care Account Auditor Name Role Phone Wanda Bonilla Primary Care Provider [phone] Rajni García RN Unavailable [phone] April Michele MD Unavailable [phone] Lee Hubbard MD Unavailable Rajni García RN Unavailable [phone] La Haddad Unavailable Encounter Details Date Type Department Care Team (Late st Contact Info) Description 08/09/2022 Orders Only [facility] MEDICINE [address] [place] [phone] Shanna Lopez LPN Social History Tobacco Use [...] Description 07/02/2025 1:00 PM EST Office Visit [facility] MEDICINE 230 [place], [place] [phone] Wanda Bonilla ANP 230 [place] [address] 09/08/2025 1:30 PM EST Office Visit [facility] OPTOMETRY [address] [place] [phone] Smiley [place], OD 230 [place] [address] documented as of this encounter Visit Diagnoses Not on filedocumented in this encounter Care Teams Account Auditor Relationship Specialty Start Date End Date Wanda Bonilla ANP 230 [place] [address] PCP - General Family Medicine 09/03/20 Rajni García, RN 505 [place] [address] Granulizing Machine OperatorForepart Laster 09/18/24 12/15/24 April Michele MD [address] [facility] [address] [place] [address] Referring Physician Infectious Diseases 10/09/24 Lee Hubabrd MD [address] [place] [address] Urology 10/09/24 Rajni García, TIM 505 [place] [address] Registered Nurse Family Medicine 05/13/25 La Haddad 05/13/25 [facility] cardiology 11/12/23 documented as of this encounter
--- OUTSIDE RECORDS SUMMARY | 2025-05-20 18:53 | XMS_ITS | Encounter Summary ---
Author Organization [employer] Address [address] [facility] 7t [place] [address] Care Team Providers Care Oracle Ascp Consultant Name Role Phone Wanda Bonilla Primary Care Provider Rajni García RN Unavailable [phone] April Michele MD Unavailable [phone] Lee Hubbard MD Unavailable [phone] Rajni García RN Unavailable [phone] La Haddad Unavailable Reason for Visit * Reason Onset Date Comments Med Refill 08/28/2023 Encounter Details Date Type Department Care Team (Late st Contact Info) Description 08/28/2023 Telephone [facility] MEDICINE 230 [place], [place] [phone] Wanda Bonilla ANP [address] [place], [place] [phone] Med Refill Social History Tobacco Use Types [...] MG/1.5ML solution pen-injector To be sent to: [facility] documented in this encounter Plan of Treatment Upcoming Encounters Date Type Department Care Team (Late st Contact Info) Description 07/02/2025 1:00 PM EST Office Visit [facility] MEDICINE 230 [place], [place] [phone] Wanda Bonilla ANP [address] [place] [address] 09/08/2025 1:30 PM EST Office Visit [facility] OPTOMETRY [address] [place] [address] Smiley [place], OD 230 [place] [address] documented as of this encounter Visit Diagnoses Not on filedocumented in this encounter Additional Health Concerns Assessment Noted Time PHQ-9 Depression Total Score: 0 08/25/19 23 1:48 PM EST documented as of this encounter Care Teams Oracle Ascp Consultant Relationship Specialty Start Date End Date Wanda Bonilla ANP [address] [place] [address] PCP - General Family Medicine 09/03/20 Rajni García, TIM [address] [place] [address] Inspector Machine Cut GlassSec Accountant 09/18/24 12/15/24 April Michele MD [address] [facility] [address] [place] [address] Referring Physician Infectious Diseases 10/09/24 Lee Hubbard MD [address] [place] [address] Urology 10/09/24 Rajni García, RN 505 [place] [address] Registered Nurse Family Medicine 05/13/25 La Haddad 05/13/25 [facility] cardiology 11/12/23 documented as of this encounter
--- OUTSIDE RECORDS SUMMARY | 2025-05-20 18:53 | XMS_ITS | Encounter Summary ---
Author Organization [employer] Address [address] [facility] 7t [place] [address] Care Team Providers Care Security Assistant Name Role Phone Irene Wanda HARO Primary Care Provider Rajni García RN Unavailable [phone] April Michele MD Unavailable [phone] Lee Hubbard MD Unavailable [phone] Rajni García RN Unavailable [phone] La Haddad Unavailable Reason for Visit * Reason Comments Med Refill Encounter Details Date Type Department Care Team (Late st Contact Info) Description 03/20/2024 Refill [facility] MEDICINE 230 [place], [place] [phone] Shivani Small CNM [address] [place], [place] [phone] Social History Tobacco Use Types Packs/Day Years [...] the past 12 months, has t he [employer], gas, oil or water [employer] threatened to shut off services in your [...] Description 07/02/2025 1:00 PM EST Office Visit [facility] MEDICINE [address] [place] [address] Wanda Bonilla ANP 230 [place] [address] 09/08/2025 1:30 PM EST Office Visit [facility] OPTOMETRY [address] [place], [place] [phone] Tyler, Smiley, OD 230 [place] [address] documented as of this encounter Visit Diagnoses Not on filedocumented in this encounter Additional Health Concerns Assessment Noted Time PHQ-9 Depression Total Score: 5 11/23/19 24 1:33 PM EDT documented as of this encounter Care Teams Security Assistant Relationship Specialty Start Date End Date Wanda Bonilla ANP 230 [place] [address] PCP - General Family Medicine 09/03/20 Rajni García RN [address] [place] [address] Campaign Management SpecialistMarker Assembler 09/18/24 12/15/24 April Michele MD [address] [facility] [address] [place] [address] Referring Physician Infectious Diseases 10/09/24 Lee Hubbard MD [address] [place] [address] Urology 10/09/24 Rajni García RN 505 [place] [address] Registered Nurse Family Medicine 05/13/25 La Haddad 05/13/25 [facility] cardiology 11/12/23 documented as of this encounter
--- OUTSIDE RECORDS SUMMARY | 2025-05-20 18:53 | XMS_ITS | Encounter Summary ---
Author Organization [employer] Address [address] [facility] 7t [place] [address] Care Team Providers Care Information Writer Name Role Phone Wanda Bonilla Primary Care Provider Rajni García RN Unavailable April Michele MD Unavailable [phone] Lee Hubbard MD Unavailable Rajni García RN Unavailable [phone] La Haddad Unavailable Reason for Visit * Reason Comments Med Refill Encounter Details Date Type Department Care Team (Late st Contact Info) Description 08/03/2024 Refill [facility] MEDICINE [address] [place], [place] [phone] Wanda Bonilla ANP 230 [place], [place] [phone] Essential hypertension Social History Tobacco Use Types [...] the past 12 months, has t he [employer], gas, oil or water company threatened to [...] PM EST Office Visit [facility] MEDICINE 230 [place] [address] Wanda Bonilla ANP 230 [place] [address] 09/08/2025 1:30 PM EST Office Visit [facility] OPTOMETRY [address] [place] [address] Tyler, Smiley, OD 230 [place] [address] documented as of this encounter Visit Diagnoses Diagnosis Essential hypertension Unspecified essential hypertension documented in this encounter Additional Health Concerns Assessment Noted Time PHQ-9 Depression Total Score: 5 11/23/19 24 1:33 PM EDT documented as of this encounter Care Teams Information Writer Relationship Specialty Start Date End Date Wanda Bonilla ANP 230 [place] [address] PCP - General Family Medicine 09/03/20 Rajni García RN 505 [place] [address] System ArchitectQuarryman 09/18/24 12/15/24 April Michele MD [address] [facility] [address] [place] [address] Referring Physician Infectious Diseases 10/09/24 Lee Hubbard MD [address] [place] [address] Urology 10/09/24 Rajni García RN 505 [place] [address] Registered Nurse Family Medicine 05/13/25 La Haddad 05/13/25 [facility] cardiology 11/12/23 documented as of this encounter
--- OUTSIDE RECORDS SUMMARY | 2025-05-20 18:53 | XMS_ITS | Encounter Summary ---
Author Organization [employer] Address [address] [facility] 7t [place] [address] Care Team Providers Care Kayak Maker Name Role Phone Irene Wanda HARO Primary Care Provider Rajni García RN Unavailable [phone] April Michele MD Unavailable [phone] Lee Hubbard MD Unavailable [phone] Rajni García RN Unavailable [phone] La Haddad Unavailable Reason for Visit * Reason Comments Med Refill Encounter Details Date Type Department Care Team (Late st Contact Info) Description 03/14/2024 Refill [facility] MEDICINE 230 [place], [place] [phone] Shivani Small CNM 230 [place], [place] [phone] Social History Tobacco Use Types Packs/Day Years [...] the past 12 months, has t he [employer], gas, oil or water [employer] threatened to shut off services in your [...] Description 07/02/2025 1:00 PM EST Office Visit [facility] MEDICINE 230 [place] [address] Wanda Bonilla ANP 230 [place] [address] 09/08/2025 1:30 PM EST Office Visit [facility] OPTOMETRY [address] [place], [place] [phone] Tyler, Smiley, OD 230 [place] [address] documented as of this encounter Visit Diagnoses Not on filedocumented in this encounter Additional Health Concerns Assessment Noted Time PHQ-9 Depression Total Score: 5 11/23/19 24 1:33 PM EDT documented as of this encounter Care Teams Kayak Maker Relationship Specialty Start Date End Date Wanda Bonilla ANP 230 [place] [address] PCP - General Family Medicine 09/03/20 Rajni García RN 505 [place] [address] Nursing AssocBusiness Coordinator 09/18/24 12/15/24 April Michele MD [address] [facility] [address] [place] [address] Referring Physician Infectious Diseases 10/09/24 Lee Hubbard MD [address] [place] [address] Urology 10/09/24 Rajni García RN 505 [place] [address] Registered Nurse Family Medicine 05/13/25 La Haddad 05/13/25 [facility] cardiology 11/12/23 documented as of this encounter
--- OUTSIDE RECORDS SUMMARY | 2025-05-20 18:53 | XMS_ITS | Encounter Summary ---
Author Organization [employer] Address [address] [facility] 7t [place] [address] Care Team Providers Care Signal Worker Helper Name Role Phone Wanda Bonilla Primary Care Provider Rajni García RN Unavailable [phone] April Michele MD Unavailable [phone] Lee Hubbard MD Unavailable Rajni García RN Unavailable [phone] La Haddad Unavailable Reason for Visit * Reason Onset Date Comments Returning Call 01/08/2024 Encounter Details Date Type Department Care Team (Late st Contact Info) Description 01/08/2024 Telephone [facility] MEDICINE 230 [place], [place] [phone] Wanda Bonilla ANP 230 [place], [place] [phone] Returning Call Social History Tobacco Use Types [...] the past 12 months, has t he [employer], gas, oil or water company threatened to [...] pt stated she received a call from out of school hours care worker regarding new program in [facility], proposal lead writer did not see anything documented but advised will forward message. documented in this encounter Plan of Treatment Upcoming Encounters Date Type Department Care Team (Late st Contact Info) Description 07/02/2025 1:00 PM EST Office Visit [facility] MEDICINE [address] [place] [address] Wanda Bonilla, ANP 230 [place] [address] 09/08/2025 1:30 PM EST Office Visit [facility] OPTOMETRY [address] [place] [address] Smiley Scott, OD 230 [place] [address] documented as of this encounter Visit Diagnoses Not on filedocumented in this encounter Additional Health Concerns Assessment Noted Time PHQ-9 Depression Total Score: 5 11/23/19 24 1:33 PM EDT documented as of this encounter Care Teams Signal Worker Helper Relationship Specialty Start Date End Date Wanda Bonilla ANP 230 [place] [address] PCP - General Family Medicine 09/03/20 Rajni García, TIM [address] [place] [address] Ream CutterSupervisor Kosher Dietary Service 09/18/24 12/15/24 April Michele MD [address] [facility] [address] [place] [address] Referring Physician Infectious Diseases 10/09/24 Lee Hubbard MD [address] [place] [address] Urology 10/09/24 Rajni García, TIM [address] [place] [address] Registered Nurse Family Medicine 05/13/25 La Haddad 05/13/25 [facility] cardiology 11/12/23 documented as of this encounter
--- OUTSIDE RECORDS SUMMARY | 2025-05-20 18:53 | XMS_ITS | Encounter Summary ---
Author Organization [employer] Address [address] [place] [address] 7t [place] [address] Care Team Providers Care Porcelain Waxer Name Role Phone Irene Wanda HARO Primary Care Provider [phone] Rajni García RN Unavailable [phone] April Michele MD Unavailable [phone] Lee Hubbard MD Unavailable [phone] Rajni García RN Unavailable La Haddad Unavailable Reason for Visit * Reason Comments Med Refill Encounter Details Date Type Department Care Team (Late st Contact Info) Description 04/03/2023 Refill [facility] MEDICINE 230 [place], [place] [phone] Brenda Lopez MD 230 [place], [place] [phone] Social History Tobacco Use Types Packs/Day Years [...] Visit [facility] MEDICINE [address] [place] [address] Wanda Bonilla ANP 230 [place] [address] 09/08/2025 1:30 PM EST Office Visit [facility] OPTOMETRY [address] [place] [address] Smiley Scott, OD 230 [place] [address] documented as of this encounter Visit Diagnoses Not on filedocumented in this encounter Additional Health Concerns Assessment Noted Time PHQ-9 Depression Total Score: 0 08/25/19 23 1:48 PM EST documented as of this encounter Care Teams Porcelain Waxer Relationship Specialty Start Date End Date Wanda Bonilla ANP 230 [place] [address] PCP - General Family Medicine 09/03/20 Rajni García RN 505 [place] [address] Batch Still OperatorDirect Support Professional 09/18/24 12/15/24 April Michele MD [address] [facility] [address] [place] [address] Referring Physician Infectious Diseases 10/09/24 Lee Hubbard MD [address] [place] [address] Urology 10/09/24 Rajni García RN 505 [facility] [place] [address] Registered Nurse Family Medicine 05/13/25 La Haddad 05/13/25 [facility] cardiology 11/12/23 documented as of this encounter
--- OUTSIDE RECORDS SUMMARY | 2025-05-20 18:53 | XMS_ITS | Encounter Summary ---
Author Organization [employer] Address [address] [place] [address] 7t [place] [address] Care Team Providers Care Store Clerk Checker Name Role Phone Wanda Bonilla Primary Care Provider [phone] Rajni García RN Unavailable [phone] April Michele MD Unavailable [phone] Lee Hubbard MD Unavailable Rajni García RN Unavailable [phone] La Haddad Unavailable Reason for Visit * Reason Onset Date Comments Referral 08/30/2022 Encounter Details Date Type Department Care Team (Late st Contact Info) Description 08/30/2022 Telephone [facility] MEDICINE 230 [place], [place] [phone] Wanda Bonilla ANP 230 [place], [place] [phone] Referral Social History Tobacco Use Types Packs/Day [...] see a neurologist Please contact pt at [phone] documented in this encounter Plan of Treatment Upcoming Encounters Date Type Department Care Team (Late st Contact Info) Description 07/02/2025 1:00 PM EST Office Visit [facility] MEDICINE 230 [place] [address] Wanda Bonilla ANP 230 [place] [address] 09/08/2025 1:30 PM EST Office Visit [facility] OPTOMETRY [address] [place] [address] Tyler, Smiley, OD 230 [place] [address] documented as of this encounter Visit Diagnoses Not on filedocumented in this encounter Additional Health Concerns Assessment Noted Time PHQ-9 Depression Total Score: 0 08/25/19 23 1:48 PM EST documented as of this encounter Care Teams Store Clerk Checker Relationship Specialty Start Date End Date Wanda Bonilla ANP 230 [place] [address] PCP - General Family Medicine 09/03/20 Rajni García, TIM 505 [place] [address] Financial CounselorStory Writer 09/18/24 12/15/24 April Michele MD [address] [address] Referring Physician Infectious Diseases 10/09/24 Lee Hubbard MD [address] [facility] [address] [place] [address] Urology 10/09/24 Rajni García RN 505 [place] [address] Registered Nurse Family Medicine 05/13/25 La Haddad 05/13/25 [facility] cardiology 11/12/23 documented as of this encounter
--- OUTSIDE RECORDS SUMMARY | 2025-05-20 18:53 | XMS_ITS | Encounter Summary ---
Author Organization [employer] Address [address] [facility] 7t [place] [address] Care Team Providers Care Laundry Worker Name Role Phone Irene Wanda HARO Primary Care Provider [phone] Rajni García RN Unavailable April Michele MD Unavailable [phone] Lee Hubbard MD Unavailable [phone] Rajni García RN Unavailable [phone] La Haddad Unavailable Encounter Details Date Type Department Care Team (Late st Contact Info) Description 08/14/2024 Telephone [facility] MED[facility]INE 230 [place], [place] [phone] Adolfo Fernando, VishnuD Social History Tobacco Use [...] 1:00 PM EST Office Visit [facility]INE 230 [place] [address] Wanda Bonilla ANP 230 [place] [address] 09/08/2025 1:30 PM EST Office Visit [facility] OPTOMETRY [address] [place] [address] Smiley Scott OD 230 [place] [address] documented as of this encounter Visit Diagnoses Not on filedocumented in this encounter Additional Health Concerns Assessment Noted Time PHQ-9 Depression Total Score: 5 11/23/19 1:33 PM EDT documented as of this encounter Care Teams Laundry Worker Relationship Specialty Start Date End Date Wanda Bonilla ANP 230 [place] [address] PCP - General Family Medicine 09/03/20 Rajni García RN 505 [place] [address] Return AgentFiberglass Product Tester 09/18/24 12/15/24 April Michele MD [address] [facility] [address] [place] [address] Referring Physician Infectious Diseases 10/09/24 Lee Hubbard MD [address] [place] [address] Urology 10/09/24 Rajni García RN 505 [place] [address] Registered Nurse Family Medicine 05/13/25 La Haddad 05/13/25 [facility] cardiology 11/12/23 documented as of this encounter
--- OUTSIDE RECORDS SUMMARY | 2025-05-20 18:53 | XMS_ITS | Encounter Summary ---
Author Organization [employer] Address 75 [facility] 7t [place] [address] Care Team Providers Care Building Code Administrator Name Role Phone Wanda Bonilla Primary Care Provider Rajni García RN Unavailable [phone] April Michele MD Unavailable [phone] Lee Hubbard MD Unavailable [phone] Rajni García RN Unavailable [phone] La Haddad Unavailable Reason for Visit * Reason Onset Date Comments Appointment Request 06/12/2023 Encounter Details Date Type Department Care Team (Late st Contact Info) Description 06/12/2023 Telephone [facility] MEDICINE 230 [place], [place] [phone] Wanda Bonilla ANP 230 [place], [place] [phone] Appointment Request Social History Tobacco Use Types [...] Description 07/02/2025 1:00 PM EST Office Visit [facility] MEDICINE 230 [place] [address] Wanda Bonilla ANP 230 [place] [address] 09/08/2025 1:30 PM EST Office Visit [facility] OPTOMETRY [address] [place] [address] Tyler, Smiley, OD 230 [place] [address] documented as of this encounter Visit Diagnoses Not on filedocumented in this encounter Additional Health Concerns Assessment Noted Time PHQ-9 Depression Total Score: 0 08/25/19 23 1:48 PM EST documented as of this encounter Care Teams Building Code Administrator Relationship Specialty Start Date End Date Wanda Bonilla ANP 230 [place] [address] PCP - General Family Medicine 09/03/20 Rajni García, RN 505 [place] [address] Waiter/Waitress FormalVault Worker 09/18/24 12/15/24 April Michele MD [address] [facility] [address] [place] [address] Referring Physician Infectious Diseases 10/09/24 Lee Hubbard MD [address] [facility] [address] [place] [address] Urology 10/09/24 Rajni García, TIM 505 [place] [address] Registered Nurse Family Medicine 05/13/25 La Haddad 05/13/25 [facility] cardiology 11/12/23 documented as of this encounter
--- OUTSIDE RECORDS SUMMARY | 2025-05-20 18:54 | XMS_ITS | Encounter Summary ---
Author Organization [employer] Address [address] [facility] [address] 7t [place] [address] Care Team Providers Care Hand Rounder Name Role Phone Irene Wanda HARO Primary Care Provider [phone] Rajni García RN Unavailable [phone] April Michele MD Unavailable [phone] Lee Hubbard MD Unavailable [phone] Rajni García RN Unavailable [phone] La Haddad Unavailable Encounter Details Date Type Department Care Team (Late st Contact Info) Description 11/25/2024 Orders Only [facility] MED & PEDS 505 [place], [place] [phone] Dina Crawford Social History Tobacco Use Types [...] Description 07/02/2025 1:00 PM EST Office Visit [facility] MEDICINE 230 [place] [address] Wanda Bonilla, ANP 230 [place] [address] 09/08/2025 1:30 PM EST Office Visit [facility] OPTOMETRY [address] [place] [address] Smiley Scott, OD 230 [place] [address] documented as of this encounter Procedures Procedure Name Priority Date/Time Associated Diagnosis Comments HPV MRNA E6/E7 REFLEX TO HPV 16, 18/45 Routine 06/17/2024 12:00 AM EST documented in this encounter Results * HPV mRNA E6/E7 w/Reflex to HPV Genotypes 16, 18/45 (06/17/2024 12:00 AM EST) us Historical Provider LAB CYTOLOGY ORDERABLES F inal Result [facility] [address] [place] [phone] documented in this encounter Visit Diagnoses Not on filedocumented in this encounter Additional Health Concerns Assessment Noted Time PHQ-9 Depression Total Score: 5 11/23/19 24 1:33 PM EDT documented as of this encounter Care Teams Hand Rounder Relationship Specialty Start Date End Date Wanda Bonilla ANP 230 [place] [address] PCP - General Family Medicine 09/03/20 Rajni García, RN 505 [place] [address] Distributed Energy Systems ConsultantPrimary Class Teacher 09/18/24 12/15/24 April Michele MD 575 [facility] [address] [place] [address] Referring Physician Infectious Diseases 10/09/24 Lee Hubbard MD [address] [place] [address] Urology 10/09/24 Rajni García, TIM 505 [place] [address] Registered Nurse Family Medicine 05/13/25 La Haddad 05/13/25 [facility] cardiology 11/12/23 documented as of this encounter
--- OUTSIDE RECORDS SUMMARY | 2025-05-20 18:54 | XMS_ITS | Encounter Summary ---
Author Organization [employer] Address 75 [facility] 7t [place] [address] Care Team Providers Care Teacher Of The Deaf Name Role Phone Wanda Bonilla Primary Care Provider [phone] Rajni García RN Unavailable [phone] April Michele MD Unavailable [phone] Lee Hubbard MD Unavailable Rajni García RN Unavailable [phone] La Haddad Unavailable Reason for Visit * Reason Onset Date Comments Hospital Follow-up 11/15/2023 Encounter Details Date Type Department Care Team (Late st Contact Info) Description 11/15/2023 Telephone [facility] MEDICINE 230 [place], [place] [phone] Wanda Bonilla ANP 230 [place], [place] [phone] Hospital Follow-up Social History Tobacco Use Types [...] from pt requesting a HDF appt. Hospital: [facility] Date of admission: 11/09 Discharge date: 11/13 Diagnosed: Neuropathy documented in this encounter Plan of Treatment Upcoming Encounters Date Type Department Care Team (Late st Contact Info) Description 07/02/2025 1:00 PM EST Office Visit [facility] MEDICINE 230 [place] [address] Wanda Bonilla ANP 230 [place] [address] 09/08/2025 1:30 PM EST Office Visit [facility] OPTOMETRY [address] [place] [address] Smiley Scott, JUDITH 230 [place] [address] documented as of this encounter Visit Diagnoses Not on filedocumented in this encounter Additional Health Concerns Assessment Noted Time PHQ-9 Depression Total Score: 0 08/25/19 23 1:48 PM EST documented as of this encounter Care Teams Teacher Of The Deaf Relationship Specialty Start Date End Date Wanda Bonilla ANP 230 [place] [address] PCP - General Family Medicine 09/03/20 Rajni García, RN 505 [place] [address] Supervisor ByproductsMolding Press Operator 09/18/24 12/15/24 April Michele MD [address] [facility] [address] [place] [address] Referring Physician Infectious Diseases 10/09/24 Lee Hubbard MD [address] [place] [address] Urology 10/09/24 Rajni García RN 505 [place] [address] Registered Nurse Family Medicine 05/13/25 La Haddad 05/13/25 [facility] cardiology 11/12/23 documented as of this encounter
--- OUTSIDE RECORDS SUMMARY | 2025-05-20 18:54 | XMS_ITS | Encounter Summary ---
Author Organization [employer] Address 75 [facility] 7t [place] [address] Care Team Providers Care Micro Paleontologist Name Role Phone Wanda Bonilla Primary Care Provider April Michele MD Unavailable [phone] Lee Hubbard MD Unavailable [phone] Rajni García RN Unavailable [phone] La Haddad Unavailable Reason for Visit * Reason Onset Date Comments Referral 01/06/2025 Encounter Details Date Type Department Care Team (Late st Contact Info) Description 01/06/2025 Telephone [facility] MEDICINE 230 [place], [place] [phone] Wanda Bonilla ANP 230 [place], [place] [phone] Referral Social History Tobacco Use Types Packs/Day [...] any questions you can contact pt at [phone]. (Portuguese Speaker) documented in this encounter Plan of Treatment Upcoming Encounters Date Type Department Care Team (Late st Contact Info) Description 07/02/2025 1:00 PM EST Office Visit [facility] MEDICINE 230 [place] [address] Wanda Bonilla ANP 230 [place] [address] 09/08/2025 1:30 PM EST Office Visit [facility] OPTOMETRY [address] [place] [address] Smiley Scott, OD 230 [place] [address] documented as of this encounter Visit Diagnoses Not on filedocumented in this encounter Additional Health Concerns Assessment Noted Time PHQ-9 Depression Total Score: 5 11/23/19 24 1:33 PM EDT documented as of this encounter Care Teams Micro Paleontologist Relationship Specialty Start Date End Date Wanda Bonilla ANP 230 [place] [address] PCP - General Family Medicine 09/03/20 April Michele MD [address] [facility] [address] [place] [address] Referring Physician Infectious Diseases 10/09/24 Lee Hubbard MD [address] [place] [address] Urology 10/09/24 Rajni García, TIM 505 [place] [address] Registered Nurse Family Medicine 05/13/25 La Haddad 05/13/25 [facility] cardiology 11/12/23 documented as of this encounter
--- OUTSIDE RECORDS SUMMARY | 2025-05-20 18:54 | XMS_ITS | Clinical Summary ---
Author Organization [facility] Address [address] [place] [address] Phone Care Team Providers Care Power Tong Operator Name Role Phone Regina Su ADRIANNE Primary [...] topic Insurance MEDICAID - [place] Care Teams Power Tong Operator Relationship Specialty Start Date End Date Regina Su FNP [address] [place] [address] PCP - General Nurse Practitioner 07/11/24
--- OUTSIDE RECORDS SUMMARY | 2025-05-20 18:54 | XMS_ITS ---
Author Organization [employer] Address [address] [facility] 7t [place] [address] Care Team Providers Care Residential Support Worker Name Role Phone Wanda Bonilla Primary Care Provider April Michele MD Unavailable [phone] Lee Hubbard MD Unavailable [phone] Rajni García RN Unavailable [phone] La Haddad Unavailable CM Complex Status:Outreach In Progress (Enrolling) Start date:05/13/2025 Enrollment reason:ADT Feed Overview ADT-[facility] ED 05/12/25 Case Team Name Relationship Phone Rajni García RN(Responsible Staff) Registered Nurse [phone] Continued Care and Services Coordination
--- OUTSIDE RECORDS SUMMARY | 2025-05-20 18:54 | XMS_ITS | Encounter Summary ---
Author Organization [employer] Address [address] [facility] 7t [place] [address] Care Team Providers Care Graphic Design Manager Name Role Phone Wanda Bonilla Primary Care Provider Rajni García RN Unavailable [phone] April Michele MD Unavailable [phone] Lee Hubbard MD Unavailable [phone] Rajni García RN Unavailable [phone] La Haddad Unavailable Reason for Visit * Reason Onset Date Comments Results 09/12/2023 Encounter Details Date Type Department Care Team (Late st Contact Info) Description 09/12/2023 Telephone [facility] MEDICINE [address] [place], [place] [phone] Wanda Bonilla ANP [address] [place], [place] [phone] Results Social History Tobacco Use Types Packs/Day [...] (in chart) Date when done: 08/30 Facility: [facility] [place] Type of results: US neck Date when done: sometime last week per pt Facility: [facility] vascular services Please contact pt at [phone] documented in this encounter Plan of Treatment Upcoming Encounters Date Type Department Care Team (Late st Contact Info) Description 07/02/2025 1:00 PM EST Office Visit [facility] MEDICINE [address] [place], [place] [phone] Wanda Bonilla ANP [address] [place] [address] 09/08/2025 1:30 PM EST Office Visit [facility] OPTOMETRY [address] [place], [place] [phone] Smiley Scott, OD [address] [place] [address] documented as of this encounter Visit Diagnoses Not on filedocumented in this encounter Additional Health Concerns Assessment Noted Time PHQ-9 Depression Total Score: 0 08/25/19 23 1:48 PM EST documented as of this encounter Care Teams Graphic Design Manager Relationship Specialty Start Date End Date Wanda Bonilla ANP [address] [place] [address] PCP - General Family Medicine 09/03/20 Rajni García, TIM [address] [place] [address] Pen MakerMat Cutter 09/18/24 12/15/24 April Michele MD [address] [facility] [address] [place] [address] Referring Physician Infectious Diseases 10/09/24 Lee Hubbard MD [address] [place] [address] Urology 10/09/24 Rajni García, RN [address] [place] [address] Registered Nurse Family Medicine 05/13/25 La Haddad 05/13/25 [facility] cardiology 11/12/23 documented as of this encounter
--- OUTSIDE RECORDS SUMMARY | 2025-05-20 18:54 | XMS_ITS | Encounter Summary ---
Author Organization [employer] Address [address] [facility] 7t [place] [address] Care Team Providers Care Cmm Technician Name Role Phone Wanda Bonilla Primary Care Provider [phone] Rajni García RN Unavailable [phone] April Michele MD Unavailable [phone] Lee Hubbard MD Unavailable [phone] Rajni García RN Unavailable [phone] La Haddad Unavailable Encounter Details Date Type Department Care Team (Late st Contact Info) Description 09/26/2023 Telephone [facility] MEDICINE [address] [place], [place] [phone] Wanda Bonilla ANP [address] [place], [place] [phone] Social History Tobacco Use Types Packs/Day Years [...] 07/02/2025 1:00 PM EST Office Visit [facility] MEDICINE [address] [place] [address] Wanda Bonilla ANP [address] [place] [address] 09/08/2025 1:30 PM EST Office Visit [facility] OPTOMETRY [address] [place] [address] Tyler, Smiley, OD [address] [place] [address] documented as of this encounter Visit Diagnoses Not on filedocumented in this encounter Additional Health Concerns Assessment Noted Time PHQ-9 Depression Total Score: 0 08/25/19 23 1:48 PM EST documented as of this encounter Care Teams Cmm Technician Relationship Specialty Start Date End Date Wanda Bonilla ANP [address] [place] [address] PCP - General Family Medicine 09/03/20 Rajni García, RN [address] [place] [address] Operations AsstMaterial Mover 09/18/24 12/15/24 April Michele MD [address] [facility] [address] [place] [address] Referring Physician Infectious Diseases 10/09/24 Lee Hubbard MD [address] [place] [address] Urology 10/09/24 Rajni García, TIM [address] [place] [address] Registered Nurse Family Medicine 05/13/25 La Haddad 05/13/25 [facility] cardiology 11/12/23 documented as of this encounter
--- OUTSIDE RECORDS SUMMARY | 2025-05-20 18:54 | XMS_ITS | Encounter Summary ---
Author Organization [employer] Address [address] [place] [address] 7t [place] [address] Care Team Providers Care Transonic Engineer Name Role Phone Wanda Bonilla Primary Care Provider [phone] Rajni García RN Unavailable [phone] April Michele MD Unavailable [phone] Lee Hubbard MD Unavailable Rajni García RN Unavailable [phone] La Haddad Unavailable Reason for Visit * Reason Comments Med Refill Encounter Details Date Type Department Care Team (Late st Contact Info) Description 01/11/2023 Refill [facility] MEDICINE [address] [place], [place] [phone] Wanda Bonilla ANP [address] [place], [place] [phone] Social History Tobacco Use Types Packs/Day Years [...] PM EST Office Visit [facility] MEDICINE [address] [place] [address] Wanda Bonilla ANP [address] [place] [address] 09/08/2025 1:30 PM EST Office Visit [facility] OPTOMETRY [address] [place] [address] Tyler, Smiley, OD [address] [place] [address] documented as of this encounter Visit Diagnoses Not on filedocumented in this encounter Additional Health Concerns Assessment Noted Time PHQ-9 Depression Total Score: 0 08/25/19 23 1:48 PM EST documented as of this encounter Care Teams Transonic Engineer Relationship Specialty Start Date End Date Wanda Bonilla ANP [address] [place] [address] PCP - General Family Medicine 09/03/20 Rajni García, TIM [address] [place] [address] English TutorCommunity Relations Assistant 09/18/24 12/15/24 April Mcihele MD [address] [facility] [address] [place] [address] Referring Physician Infectious Diseases 10/09/24 Lee Hubbard MD [address] [place] [address] Urology 10/09/24 Rajni García, TIM [address] [place] [address] Registered Nurse Family Medicine 05/13/25 La Haddad 05/13/25 [facility] cardiology 11/12/23 documented as of this encounter
--- OUTSIDE RECORDS SUMMARY | 2025-05-20 18:54 | XMS_ITS | Encounter Summary ---
Author Organization [employer] Address [address] [facility] 7t [place] [address] Care Team Providers Care Learning Manager Name Role Phone Wanda Bonilla Primary Care Provider [phone] Rajni García RN Unavailable [phone] April Michele MD Unavailable [phone] Lee Hubbard MD Unavailable [phone] Rajni García RN Unavailable [phone] La Haddad Unavailable Reason for Visit * Reason Comments Med Refill Encounter Details Date Type Department Care Team (Late st Contact Info) Description 11/05/2023 Refill [facility] MEDICINE [address] [place], [place] [phone] Wanda Bonilla ANP [address] [place], [place] [phone] Social History Tobacco Use Types Packs/Day Years [...] 1:00 PM EST Office Visit [facility] MEDICINE [address] [place] [address] Wanda Bonilla ANP [address] [place] [address] 09/08/2025 1:30 PM EST Office Visit [facility] OPTOMETRY [address] [place] [address] Tyler, Smiley, OD [address] [place] [address] documented as of this encounter Visit Diagnoses Not on filedocumented in this encounter Additional Health Concerns Assessment Noted Time PHQ-9 Depression Total Score: 0 08/25/19 23 1:48 PM EST documented as of this encounter Care Teams Learning Manager Relationship Specialty Start Date End Date Wanda Bonilla ANP [address] [place] [address] PCP - General Family Medicine 09/03/20 Rajni García RN [address] [place] [address] Photocomposing Keyboard OperatorPlowing Gardens 09/18/24 12/15/24 April Michele MD [address] [facility] [address] [place] [address] Referring Physician Infectious Diseases 10/09/24 Lee Hubbard MD [address] [facility] [address] [place] [address] Urology 10/09/24 Rajni García, TIM [address] [place] [address] Registered Nurse Family Medicine 05/13/25 La Haddad 05/13/25 [facility] cardiology 11/12/23 documented as of this encounter
--- OUTSIDE RECORDS SUMMARY | 2025-05-20 18:54 | XMS_ITS | Encounter Summary ---
Author Organization [employer] Address [address] [facility] 7t [place] [address] Care Team Providers Care Wellness Director Name Role Phone Wanda Bonilla Primary Care Provider April Michele MD Unavailable [phone] Lee Hubbard MD Unavailable Rajni García RN Unavailable [phone] La Haddad Unavailable Reason for Visit * Reason Onset Date Comments Referral 01/02/2025 Encounter Details Date Type Department Care Team (Late st Contact Info) Description 01/02/2025 Telephone [facility] MEDICINE [address] [place], [place] [phone] Wanda Bonilla ANP [address] [place], [place] [phone] Referral Social History Tobacco Use Types Packs/Day [...] location of referral for derek woman's [place] [facility]. Pt would like a call back to confirm. Please contact pt at [phone]. documented in this encounter Plan of Treatment Upcoming Encounters Date Type Department Care Team (Late st Contact Info) Description 07/02/2025 1:00 PM EST Office Visit [facility] MEDICINE [address] [place] [address] Wanda Bonilla, TAHIR [address] [place] [address] 09/08/2025 1:30 PM EST Office Visit [facility] OPTOMETRY [address] [place] [address] Smiley Scott, OD [address] [place] [address] documented as of this encounter Visit Diagnoses Not on filedocumented in this encounter Additional Health Concerns Assessment Noted Time PHQ-9 Depression Total Score: 5 11/23/19 24 1:33 PM EDT documented as of this encounter Care Teams Wellness Director Relationship Specialty Start Date End Date Wanda Bonilla ANP [address] [place] [address] PCP - General Family Medicine 09/03/20 April Michele MD [address] [facility] [address] [place] [address] Referring Physician Infectious Diseases 10/09/24 Lee Hubbard MD [address] [place] [address] Urology 10/09/24 Rajni García RN [address] [place] [address] Registered Nurse Family Medicine 05/13/25 La Haddad 05/13/25 [facility] cardiology 11/12/23 documented as of this encounter
--- OUTSIDE RECORDS SUMMARY | 2025-05-20 18:54 | XMS_ITS | Clinical Summary ---
Author Organization [employer] Address [address] [place] [address] [address] [place] [address] Care Team Providers Care Powder Core Tester Name Role Phone Sandra Vieira Primary Care Provider April Michele MD Unavailable [phone] Lee Hubbard MD Unavailable Rajni García RN Unavailable [phone] La Haddad Unavailable Allergies Active Allergy Reactions Criticality Noted Date [...] bedtime. 023 Active famotidine (Pepcid) 20 MG tabletIndication s:Heartburn [...] mouth after use. 1 each 024 Active TRUEplus Lancets 33G misc TEST BLOOD SUGAR THREE TIMES DAILY 100 each 11 024 Active insulin pen needle (Easy Touch Pen [place]) 31G X 8 mm miscIndications: Diabetic polyneuropathy associated with type 2 diabetes mellitus (HCC) USE DIRECTED FOUR TIMES DAILY 100 each 11 025 Active Blood Pressure Monitoring (Omron 3 Series BP Monitor) device Use as directed 1x/d 1 each 025 Active Blood Glucose Monitoring Suppl (ACM Capital PartnersStyle Annabella Lite) w/Device kit Use to test blood sugar 1x times daily 1 kit 025 Active insulin lispro (HumaLOG) 100 UNIT/ML injectionIndicat ions:Type 2 diabetes mellitus with hyperlipidemia (HCC) INJECT 20 UNITS SUBCUTANEOUSLY THREE TIMES DAILY WITH MEALS 15 mL 11 025 Active butalbital-aceta minophen-caffein e 50-325-40 MG tabletIndication s:Nonintractable episodic headache, unspecified headache type Take 1 tablet as needed for migraine once, can repeat after 2 hours, do not exceed more than 4 tablets in 24 hours or use more than 3 days in 1 month 18 tablet 025 Active tamsulosin (Flomax) 0.4 MG 24 hr capsule TAKE 1 CAPSULE BY MOUTH EVERY DAY 30 capsule 025 Active glucose blood (FREESTYLE LITE) test strip TEST BLOOD SUGAR THREE TIMES DAILY 100 strip 11 025 Active D3-1000 25 MCG (1000 UT) capsuleIndicatio ns:Low vitamin D level TAKE 1 CAPSULE BY MOUTH EVERY MORNING 90 capsule 2 025 Active lidocaine (Lidoderm) 5 % patchIndications :Pain APPLY 1 PATCH TOPICALLY TO SKIN, LEAVE ON FOR 12 HOURS AND OFF FOR 12 HOURS DIRECTED. May use 2 patches at once. 60 patch 2 025 Active estradiol (Estrace) 0.1 MG/GM vaginal creamIndications :Vaginal itching 1g vaginally daily for 1-2 weeks, then twice weekly thereafter 45 g 2 025 Active NIFEdipine CC (Adalat CC) 60 MG 24 hr tabletIndication s:Benign essential HTN Take 1 tablet (60 mg) by mouth before breakfast. Do not crush, chew, or split. 90 tablet 1 025 2025 Active triamcinolone (Kenalog) 0.1 % ointment Apply topically if needed in the morning and at bedtime for rash. 30 g 1 025 Active NIFEdipine XL (Procardia XL) 60 MG 24 hr tabletIndication s:Primary hypertension TAKE 1 TABLET BY MOUTH EVERY MORNING BEFORE BREAKFAST DO NOT BREAK, CRUSH, DISSOLVE OR CHEW 025 Active sofosbuvir-velpa tasvir (Epclusa) 400-100 MG tabletIndication s:Chronic hepatitis C without hepatic coma (HCC) Take 1 tablet by mouth. 024 Active pioglitazone (Actos) 15 MG tabletIndication s:Type 2 diabetes mellitus with hyperlipidemia (HCC) TAKE 1 TABLET BY MOUTH EVERY MORNING 90 tablet 3 025 Active lansoprazole (Prevacid) [address] capsuleIndicatio ns:Heartburn TAKE 1 CAPSULE BY MOUTH EVERY MORNING BEFORE BREAKFAST DO NOT BREAK, CRUSH, DISSOLVE OR CHEW 90 capsule 1 025 Active rOPINIRole (Requip) 0.5 MG tabletIndication s:Restless legs TAKE 1 TABLET BY MOUTH AT BEDTIME 1-3 HOURS BEFORE BEDTIME 30 tablet 2 025 Active Lantus SoloStar 100 UNIT/ML penIndications:T ype 2 diabetes mellitus with hyperglycemia, with long-term current use of insulin ([facility]) INJECT 54 UNITS SUBCUTANEOUSLY EVERY DAY 15 mL 3 Active lisinopril 40 MG tablet TAKE 1 TABLET BY MOUTH EVERYDAY AT NOON 90 tablet 3 Active gabapentin (Neurontin) 300 MG capsule TAKE 1 CAPSULE BY MOUTH TWICE DAILY IN THE MORNING AND IN THE EVENING and TAKE 2 CAPSULES BY MOUTH EVERY DAY AT BEDTIME 120 capsule 3 Active Aspirin Low Dose 81 MG EC tablet TAKE 1 TABLET BY MOUTH EVERY EVENING 90 tablet 3 Active Ozempic, 0.25 or 0.5 MG/DOSE, 2 MG/3ML solution pen-injectorIndi cations:Diabetic polyneuropathy associated with type 2 diabetes mellitus (HCC) INJECT 0.5 MG SUBCUTANEOUSLY EVERY 7 DAYS IN THE ABDOMEN, THIGHS, OR UPPER ARM, ROTATE INJECTION SITES. 3 mL 1 Active carvedilol (Coreg) 6.25 MG tabletIndication s:Primary hypertension TAKE 1 TABLET BY MOUTH TWICE DAILY AT NOON AND BEDTIME 180 tablet 1 Active Aspirin Low Dose 81 MG EC tablet TAKE 1 TABLET BY MOUTH EVERY EVENING 90 tablet 3 024 2024 Discontinued gabapentin (Neurontin) 300 MG capsule TAKE 1 CAPSULE BY MOUTH TWICE DAILY IN THE MORNING AND IN THE EVENING and TAKE 2 CAPSULES BY MOUTH EVERY DAY AT BEDTIME 120 capsule 3 025 2024 Discontinued carvedilol (Coreg) 6.25 MG tabletIndication s:Primary hypertension TAKE 1 TABLET BY MOUTH TWICE DAILY AT NOON AND BEDTIME 180 tablet 025 2024 Discontinued(R eorder (will not trigger notification to Pharmacy)) Ozempic, 0.25 or 0.5 MG/DOSE, 2 MG/3ML solution pen-injectorIndi cations:Diabetic polyneuropathy associated with type 2 diabetes mellitus (HCC) INJECT 0.5 MG SUBCUTANEOUSLY EVERY 7 DAYS IN THE ABDOMEN, THIGHS, OR UPPER ARM, ROTATE INJECTION SITES. 3 mL 1 025 2024 Discontinued Hospital, [...] of pituitary gland and craniopharyngeal duct (CMS/HCC) 02/06/2025 Alcohol use 02/06/2025 Abnormal LFTs 02/06/2025 [...] while admitted. She did get established with [facility] cardiology. I will request updated notes. [...] opiates) with Tylenol and ibuprofen I called [facility] cardiology clinic and they will call [...] Chest pain 12/07/2023 Overview (12/07/2023): Admitted at [facility] 11/11/-11/14/23 ?NSTEMI Optimize BP, DM, minimize risk [...] list. Type 2 diabetes mellitus with hyperlipidemia Class 1 obesity 08/02/2023 08/02/2023 Diabetic retinopathy [...] Psychiatrist decreased seroquel. She was referred to [facility] Breast [facility]ist for further eval. History [...] 05/13/2018 Anxiety 02/04/2018 Depressed bipolar I disorder (CMS/HCC) 8 Cirrhosis of liver (CMS/HCC) 07/27/2017 Overview (10/01/2023): [facility] GI D/t HCV (suspect s/p blood transfusion [...] hepatic mass identified. Dystrophia unguium 05/12/2015 Prolactinoma (CMS/HCC) 05/12/2015 Diabetic polyneuropathy 07/09/2014 Carpal tunnel syndrome [...] Diagnosed Date Resolved Date Bipolar disease in ([facility]/HCC) 08/02/202308/02/2023 Breast mass 08/02/2023 08/02/2023 08/02/2023 UTI symptoms 08/02/2023 08/02/2023 08/02/2023 Flank pain 04/24/2023 08/02/2023 Hepatitis C 04/24/2023 08/02/2023 Urinary tract infection 04/24/202310/2023 Chronic hepatitis ([facility]/HCC) 04/24/2023 08/02/2023 UTI (urinary tract infection) 03/09/2023 08/02/2023 Assessment & Plan (03/09/2023 2:36 PM EDT): Drink plenty of water Do not hold the urine Insulin dependent type 1 diabetes mellitus 09/24/2018 08/02/2023 Benign neoplasm of pituitary gland ([facility]) 3 08/29/2023 02/10/2025 Encounters Date Type Department Care Team Description 05/13/2025 Patient Outreach [facility] [address] [place] [phone] Sandra Vieira ANP Care Coordination (CM/CHW outreach) 05/13/2025 Patient Outreach [facility] [address] [place] [address] [phone] Sandra Vieira ANP Care Coordination (CHW Chart Review) 05/13/2025 Patient Outreach [facility] [address] [place] [address] [phone] Sandra Vieira ANP 05/13/2025 Patient Outreach [facility] [address] [place] [address] [phone] Sandra Vieira ANP 05/13/2025 Refill [facility] [address] [place] [address] [phone] Jose Maria Farnsworth MD Primary hypertension 05/13/2025 Refill [facility] [address] [place] [address] [phone] Sandra Vieira ANP Diabetic polyneuropathy associated with type 2 diabetes mellitus (HCC); Primary hypertension 05/12/2025 Orders Only GENERIC EXTERNAL DATA DEPARTMENT Provider, Generic External Data 04/29/2025 Telephone [facility] [address] [place] [address] Smiley Scott, OD 04/22/2025 Refill [facility] [address] [place] [address] Sandra Vieira ANP 04/20/2025 Telephone [facility] [address] [place] [address] Smiley Scott, OD 04/20/2025 Telephone [facility] [address] [place] [address] Sandra Vieira ANP dec recall 04/12/2025 Refill [facility] [address] [place] [address] Sandra Vieira ANP 04/09/2025 Refill [facility] [address] [place] [phone] Sandra Vieira ANP Type 2 diabetes mellitus with hyperglycemia, with long-term current use of insulin (CMS/[facility]) 04/02/2025 2:30 PM EDT Office Visit [facility] [address] [place] [phone] Sandra Vieira ANP Type 2 diabetes mellitus with hyperlipidemia (CMS/HCC) ([facility]/HCC) 04/02/2025 Travel 03/20/2025 Refill [facility] [address] [place] [address] Sandra Vieira ANP Diabetic polyneuropathy associated with type 2 diabetes mellitus (CMS/HCC) 03/19/2025 Orders Only GENERIC EXTERNAL DATA DEPARTMENT Provider, Generic External Data 03/14/2025 Refill [facility] [address] [place] [address] Sandra Vieira ANP Restless legs 03/12/2025 Refill [facility] [address] [place] [address] Sandra Vieira ANP Type 2 diabetes mellitus with hyperlipidemia ([facility]/HCC) ([facility]); Heartburn 03/04/2025 Telephone [facility] [address] [place] [address] Vieira, Sandra, ANP imaging question from Last 3 Months Immunizations Immunization Administration [...] Sign Reading Time Taken Comments Blood Pressure 138/78 04/02/2025 2:37 PM EDT Pulse 67 04/02/2025 2:37 PM EDT Temperature 36.6 C (97.8 F) 02/06/2025 11:28 AM EDT Respiratory Rate 14 04/02/2025 2:37 PM EDT Oxygen Saturation 97% 04/02/2025 2:37 PM EDT Inhaled Oxygen Concentration - - Weight 79.6 kg (175 lb 6.4 oz) 04/02/2025 2:37 P M EDT Height 158 cm (5' 2.21 ) 02/06/2025 11:28 AM EDT Body Mass Index 31.87 02/06/2025 11:28 AM EDT Plan of Treatment Upcoming Encounters Date Type Department Care Team (Late st Contact Info) Description 07/02/2025 1:00 PM EST Office Visit [facility] [address] [place] [address] Sandra Vieira ANP [address] [place] [address] 09/08/2025 1:30 PM EST Office Visit [facility] [address] [place] [address] Smiley Scott, OD [address] [place] [address] Health Maintenance Due Date Last Done Comments [...] - Risk 60-74 years 1-dose series) 2023 Diabetes: Foot Exam 04/26/2024 04/26/2023, 04/26/2023, 04/26/2023, Additional history exists Diabetes: Urine Protein Screening 05/01/2024 05/01/2023, 04/30/2023, 04/13/2022, Additional history exists Lipid Panel 05/01/2024 05/01/2023, 05/20/2021 SDOH Screening 08/30/2024 08/30/2023 Eye Exam 09/26/2024 09/27/2023, 08/31, 09/27/2023, Additional history exists Depression Screening 11/22/2024 11/23/2023, 11/23/19 24 COVID-19 Vaccine ( season) 2025 12/29/2020, 12/01/2020 Influenza Vaccine (#1) 2025 05/13/2018, 2016 Diabetes: Hemoglobin A1C 07/02/2025 025, 12/25/2024, 09/23/2024, Additional history exists Alcohol/Substance Use Screening 07/24/2025 07/24/2024 Tobacco Screening 04/02/2026 04/02/2025 Mammogram 07/03/2026 07/03/2024, 1211/2023, 01/04/2024, Additional history [...] Associated Diagnosis Comments US ABDOMEN LIMITED Routine 05/15/2025 9: 54 AM EDT LIPASE Routine 05/12/2025 10:06 AM EDT BASIC METABOLIC PANEL Routine 05/12/2025 10:06 AM EDT HEPATIC FUNCTION PANEL Routine 05/12/2025 10:06 AM EDT CBC WITH AUTO DIFFERENTIAL Routine 05/12/2025 10:06 AM EDT URINALYSIS, COMPLETE, WITH REFLEX TO CULTURE Routine 05/12/2025 10:03 AM EDT CULTURE, URINE, ROUTINE Routine 05/12/2025 12:00 AM EDT POCT GLYCATED HEMOGLOBIN, TOTAL Routine 04/02/2025 2:44 PM EDT Type 2 diabetes mellitus with hyperlipidemia (CMS/HCC) (CMS/HCC) POCT GLUCOSE Routine 04/02/2025 2:43 PM EDT Type 2 diabetes mellitus with hyperlipidemia (CMS/HCC) (CMS/HCC) HEPATITIS C VIRAL RNA, QUANTITATIVE, REAL-TIME PCR Routine 03/19/2025 12:13 PM EDT ALPHA FETOPROTEIN, TUMOR MARKER Routine 03/19/2025 12:13 PM EDT CBC Routine 03/19/2025 12:13 PM EDT BI MAMMOGRAM SCREENING TOMOSYNTHESIS BILATERAL Routine 07/03/2024 [...] Recently Relevant to Health Maintenance Results * US Abdomen Limited (05/15/2025 9:54 AM EDT) Anatomical Region Laterality Modality Abdomen Ultrasound 05/15/2025 9:54 AM EDT Narrative 05/15/2025 9:56 AM EDT [address] [address] Ultrasound Report Signed Patient: Tank Max MR#: [id number] : 1965 Acct:[id number] Age/Sex: 60 / F ADM Date: 05/14/25 Loc: HO.US Attending Dr: Ashlie Maldonado MD Ordering Physician: Ashlie Maldonado MD Date of Service: 05/14/25 Procedure(s): US abdomen limited Accession Number(s): [id number] cc: Ashlie Maldonado MD; SANDRA VIEIRA NP Reason for Exam: K74.60 - Unspecified cirrhosis of liver CLINICAL HISTORY: K74.60 - Unspecified cirrhosis of liver --- Additional Notes or Special Instructions: screen for HCC and ascites US abdomen limited Comparison: 08/29/2024 Findings: The visualized pancreas is normal. The aorta and inferior vena cava are normal caliber. The appearance of the liver is consistent with the clinical diagnosis with no new focal lesions. There is no intrahepatic bile duct dilatation. The common duct is 8.0 mm in diameter. There are no abnormal findings in the gallbladder fossa. There is no sonographic Gonzalez sign. The main portal vein is antegrade. The right kidney is 8.9 cm in length. No ascites. IMPRESSION: 1. Findings consistent with cirrhosis. This document has been electronically signed by: Ck Landaverde MD on 05/15/2025 09:54:34 Dictated By: Ck Landaverde MD Signed By: <Electronically signed by Ck Landaverde MD in OV> 05/15/2555 DD/ 3 TD/TT: 05/15/25953 Area Captain: Procedure Note Donotuseinterpreter, Image - 05/15/2025 [place] [address] Ultrasound Report Signed Patient: Barrera Max#: [id number] : 1965Acct:[id number] Age/Sex: 60 / FADM Date: 05/14/25 Loc: HO.US Attending Dr: Ashlie Maldonado MD Ordering Physician: Ashlie Maldonado MD Date of Service: 05/14/25 Procedure(s): US abdomen limited Accession Number(s): [id number] cc: Ashlie Maldonado MD; SANDRA VIEIRA NP Reason for Exam: K74.60 - Unspecified cirrhosis of liver CLINICAL HISTORY: K74.60 - Unspecified cirrhosis of liver --- AdditionalNotes or Special Instructions: screen for HCC and ascites US abdomen limited Comparison: 08/29/2024 Findings: The visualized pancreas is normal. The aorta and inferior vena cava are normal caliber. The appearance of the liver is consistent with the clinical diagnosis with no new focal lesions. There is no intrahepatic bile duct dilatation. The common duct is 8.0 mm in diameter. There are no abnormal findings in the gallbladder fossa. There is no sonographic Gonzalez sign. The main portal vein is antegrade. The right kidney is 8.9 cm in length. No ascites. IMPRESSION: 1. Findings consistent with cirrhosis. This document has been electronically signed by: Ck Landaverde MD on 05/15/2025 09:54:34 Dictated By: Ck Landaverde MD Signed By: <Electronically signed by Ck Landaverde MD in OV> 05/15/25954 DD/ 3 TD/TT: 05/15/25953 Area Captain: us [facility] External Provider IMG US PROCEDURES Final Result * (ABNORMAL) CBC auto differential (05/12/2025 10:06 AM EDT) White Blood Count 3.3(L) 4.8 - 10.8 X10*3/uL [facility] Red Blood Count 4.31 4.20 - 5.50 X10*6/uL [facility] Hemoglobin 12.4 12.0 - 16.0 g/dl [facility] Hematocrit 36.7(L) 37.0 - 47.0 % [facility] Mean Corpuscular Volume 85.2 80.0 - 98.0 fL [facility] Mean Corpuscular Hemoglobin 28.8 27.0 - 33.0 pg [facility] Mean Corpuscular HGB Conc 33.8 31.0 - 35.0 g/dl [facility] Red Cell Distribution Width 12.7 11.0 - 16.0 % [facility] Platelet Count 98(L) 160 - 400 X10*3/uL [facility] Mean Platelet Volume 9.9 9.4 - 12.3 fL [facility] Neutrophils Percent Auto 54.2 45 - 73 % [facility] Imm Gran Pct Auto 0.0 0.0 - 0.4 % [facility] Lymphocytes Percent Auto 31.6 20 - 40 % [facility] Monocytes Percent Auto 11.2(H) 2 - 11 % [facility] Eosinophils Percent Auto 2.7 0 - 4 % [facility] Basophils Percent Auto 0.3 0 - 2 % [facility] NRBC Pct Auto 0.0 0.0 - 0.2 /100WBC [facility] Neutrophils Absolute Auto 1.8(L) 2.0 - 8.3 x10*3/uL [facility] Imm Gran Abs Auto 0.00 0.00 - 0.03 X10*3/uL [facility] Lymphocytes Absolute Auto 1.0(L) 1.2 - 4.9 X10*3/uL [facility] Monocytes Absolute Auto 0.4 0.1 - 1.2 X10*3/uL [facility] Eosinophils Absolute Auto 0.1 0.0 - 0.4 X10*3/uL [facility] Basophils Absolute Auto 0.0 0.0 - 0.2 X10*3/uL [facility] NRBC Abs Auto 0.000 0.0 - 0.012 X10*3/uL [facility] 05/12/2025 10:0 6 AM EDT 05/12/2025 10:12 AM EDT us Generic External Data Provider LAB BLOOD ORDERAB LES Final Result Performing Organization Address City/[facility]/ZIP Co de Phone Number [facility] [address] [place] [phone] * Lipase (05/12/2025 10:06 AM EDT) Lipase 21 8 - 78 U/L [facility] 05/12/2025 10:0 6 AM EDT 05/12/2025 10:12 AM EDT us Generic External Data Provider LAB BLOOD ORDERAB LES Final Result Performing Organization Address City/[facility]/ZIP Co de Phone Number [facility] [address] [place] [address] [phone] * (ABNORMAL) Hepatic Function Panel (05/12/2025 10:06 AM EDT) [facility] Bilirubin, Total 0.4 0.0 - 1.0 mg/dL [facility] Bilirubin, Direct 0.2 0.0 - 0.5 mg/dL [facility] Aspartate Amino Transferase 45(H) 5 - 31 U/L [facility] Alanine Aminotransferase 50(H) 0 - 31 U/L [facility] Total Protein 7.3 6.5 - 8.0 g/dL [facility] Albumin Level 4.1 3.5 - 5.0 g/dL [facility] Alkaline Phosphatase 129(H) 39 - 117 U/L [facility] 05/12/2025 10:0 6 AM EDT 05/12/2025 10:12 AM EDT us Generic External Data Provider LAB BLOOD ORDERAB LES Final Result [facility] [address] [place] [address] [phone] * (ABNORMAL) Basic Metabolic Panel (05/12/2025 10:06 AM EDT) [facility] Sodium 144 135 - 145 mmol/L [facility] Potassium 4.2 3.3 - 5.1 mmol/L [facility] Chloride 111(H) 96 - 108 mmol/L [facility] Carbon Dioxide 25 22 - 29 mmol/L [facility] Anion Gap 12 12 - 20 [facility] Urea Nitrogen (BUN) 13 9 - 16 mg/dL [facility] Creatinine, Serum 0.87 0.5 - 1.4 mg/dL [facility] Creatinine Clr Calc Pharmacy 66.3 [facility] Comment:Provided height and weight: 160.02 cm,78.018 kg.eGFR (calculated from the MDRD study equation) and eCrCl(calculated from the Cockcroft-Gault equation) are based ondifferent parameters and may not yield comparable results.If eCrCl result is absurd, please check patient'sheight/weight. Estimated Glomerular Filt Rate >60 [facility] Comment:Chronic Kidney Disea se: Estimated GFR < 60 mL/min/1.43b5Lwdgop Kidney Disease: Estimated GFR < 15 mL/min/1.73m2 Glucose 88 60 - 115 mg/dL [facility] Calcium 9.2 8.4 - 10.2 mg/dL [facility] 05/12/2025 10:0 6 AM EDT 05/12/2025 10:12 AM EDT us Generic External Data Provider LAB BLOOD ORDERAB LES Final Result [facility] [address] [place] [phone] * (ABNORMAL) Urinalysis, Complete, with Reflex to Culture (05/12/2025 10:03 AM EDT) Color Urine Yellow [facility] Appearance Urine Cloudy [facility] PH 6.0 5.0 - 9.0 [facility] Glucose Urine UA Negative Negative mg/dL [facility] Urine Blood Negative Negative [facility] Specific Offerman - Urine 1.020 1.005 - 1.025 [facility] Urine Protein Trace Neg-Trace mg/dL [facility] Urine Ketones Negative Negative mg/dL [facility] Nitrite Urine Negative Negative [facility] Leukocyte Esterase Urine Small (1+)(A) Negative [facility] RBC Urine 0-2 0 - 2 /HPF [facility] Urine WBC 0-5 0 - 5 /HPF [facility] Urine Squamous Epithelial Cell >20 0 - 2 /HPF [facility] Urine Bacteria 4+ None Seen [facility] Hyaline Casts, Urine 0-2 0 - 2 /LPF [facility] 05/12/2025 10:0 3 AM EDT 05/12/2025 10:12 AM EDT [facility] - 05/12/2025 10:28 AM EDT [id number], Clean Catch Generic External Data Provider LAB URINE ORDERAB LES Final Result Performing Organization Address [facility]/ZIP Co de Phone Number [facility] [address] [place] [phone] * Culture, Urine, Routine (05/12/2025 12:00 AM EDT) Urine Urine specimen obtained by clean catch procedure / Unknown 05/12/2025 05/12/2025 Comment:[facility] - 05/13/2025 9:16 AM EDT Urine Culture Report Result Urine Culture < 10,000 cfu/ml Specimen Source: Urine clean catch Generic External Data Provider LAB MICROBIOLOGY - GENERAL ORDERABLES Final Result Performing Organization Address City/[facility] Co de Phone Number [facility] [address] [place] [phone] * (ABNORMAL) POCT Hgb A1c (04/02/2025 2:44 PM EDT) [facility] Hemoglobin A1C 7.2(A) 4.0 - 5.7 % QC Media Lot # [id number] Lot# Expiration Date [id number] Blood 04/02/2025 2:44 PM EDT us Sandra Vieira [facility] POINT OF CARE TEST ENTER/EDIT OR DERABLES Final Result * (ABNORMAL) POCT Glucose (04/02/2025 2:43 PM EDT) [facility] Glucose Blood, POC 218(A) 60 - 200 mg/dL QC Media Lot # [id number] Lot# Expiration Date [id number] Blood Capillary blood specimen / Unknown 04/02/2025 2:43 PM EDT us Sandra Vieira ANP POINT OF CARE TEST ENTER/EDIT OR DERABLES Final Result * (ABNORMAL) Hepatitis C Viral RNA, Quantitative, Real-Time PCR (03/19/2025 12:13 PM EDT) Pathologist [facility] Hepatitis C Viral Load 9508498(A ) NOT DETECTED IU/mL [facility] HCV Log PCR 6.20(A) NOT DETECTED Log IU/mL [facility] Comment:For additional infor caleb, please refer tohttp://education.Infolinks/faq/CIS96t7(This link is being provided for informational/educational purposes only.)THIS TEST WAS PERFORMED AT:[employer] [place] [phone] YO MD 03/19/2025 12:1 3 PM EDT 03/19/2025 12:19 PM EDT Generic External Data Provider LAB BLOOD ORDERAB LES Final Result [facility] [address] [place] [phone] * Alpha-Fetoprotein, Tumor Marker (03/19/2025 12:13 PM EDT) Pathologist [facility] Alpha Fetoprotein 4.8 ng/mL [facility] Comment:Reference Range: <6. 1The use of AFP as a tumor marker in females is not recommended.This test was performed using the Jeanine Coulterchemiluminescent method. Values obtained fromdifferent assay methods cannot be usedinterchangeably. AFP levels, regardless ofvalue, should not be interpreted as absoluteevidence of the presence or absence of disease.THIS TEST WAS PERFORMED AT:[employer] [address] [id number] YO MD 03/19/2025 12:1 3 PM EDT 03/19/2025 12:19 PM EDT Generic External Data Provider LAB BLOOD ORDERAB LES Final Result Performing Organization Address City/[facility]/ZIP Co de Phone Number [facility] [address] [place] [address] [phone] * (ABNORMAL) CBC (03/19/2025 12:13 PM EDT) White Blood Count 4.5(L) 4.8 - 10.8 X10*3/uL [facility] Red Blood Count 4.11(L) 4.20 - 5.50 X10*6/uL [facility] Hemoglobin 11.8(L) 12.0 - 16.0 g/dl [facility] Hematocrit 35.6(L) 37.0 - 47.0 % [facility] Mean Corpuscular Volume 86.6 80.0 - 98.0 fL [facility] Mean Corpuscular Hemoglobin 28.7 27.0 - 33.0 pg [facility] Mean Corpuscular HGB Conc 33.1 31.0 - 35.0 g/dl [facility] Red Cell Distribution Width 13.1 11.0 - 16.0 % [facility] Platelet Count 96(L) 160 - 400 X10*3/uL [facility] Mean Platelet Volume 11.1 9.4 - 12.3 fL [facility] NRBC Pct Auto 0.0 0.0 - 0.2 /100WBC [facility] NRBC Abs Auto 0.000 0.0 - 0.012 X10*3/uL [facility] 03/19/2025 12:1 3 PM EDT 03/19/2025 12:19 PM EDT us Generic External Data Provider LAB BLOOD ORDERAB LES Final Result Performing Organization Address City/[facility]/ZIP Co de Phone Number [facility] [address] [place] [phone] * BI Mammogram Screening Tomosynthesis Bilateral (07/03/2024 9:53 AM EST) Anatomical Region Laterality Modality Breast Bilateral Mammography 07/03/2024 9:53 AM EST Narrative 07/09/2024 10:57 AM EST [address] [place] [address] Mammography Report Signed Patient: Tank Max MR#: [id number] : 1965 Acct:[id number] Age/Sex: 59 / F ADM Date: 07/03/24 Loc: HO.MAMMO Attending Dr: Herminio Britton MD Ordering Physician: Herminio Britton MD Results: 1Negativ e Date of Service: 07/03/24 Follow Up: 1 Year From Orig inal Mammogram Procedure(s): MM tomosynthesis screening BI Accession Number(s): [id number] cc: SANDRA VIEIRA NP; Herminio Britton MD [...] 07/09/24 1054 DD/ 0953 TD/TT: 07/03/24 1018 Area Captain: Procedure Note Donotuseinterpreter, Image - 07/09/[address] [place] [address] Mammography Report Signed Patient: Barrera Max#: [id number] : 1965Acct:[id number] Age/Sex: 59 / FADM Date: 07/03/24 Loc: HO.MAMMO Attending Dr: Herminio Britton MD Ordering Physician: Herminio Britton MDResults: 1Negativ e Date of Service: 07/03/24Follow Up: 1 Year From Orig inal Mammogram Procedure(s): MM tomosynthesis screening BI Accession Number(s): [id number] cc: SANDRA VIEIRA MACHINE SIGN WRITER; Herminio Britton MD EXAMINATION: MM SCREENING DIGITAL [...] 07/09/24 1054 DD/ 0953 TD/TT: 07/03/24 1018 Area Captain: [facility] External Provider IMG BI PROCEDURES Edited Result - Final * Pap Smear (06/17/2024 10:30 AM EST) 06/17/2024 10:3 0 AM EST 06/18/2024 9:15 AM EST Narrative [facility] - 06/20/2024 9:28 AM EST ----- ------- Name: Tank Max Age/Sex: 59/F : 1965 Unit#: [id number] Attend Dr: Herminio Britton MD Re06/17/24 Status: DEP REF Location: [facility] Disch: ----- ------- SPEC : [id number] RECD: 06/18/24 STATUS: MARCELINO CHAMBERS NUM: [id number] MILY: 06/17/24-1030 [facility] DR: Herminio Britton MD ENTERED: 06/18/24-1104 SP TYPE: Pap Smr OTHR DR: SANDRA VIEIRA NP ORDERED: Pap Smear Interpretation Satisfactory for evaluation. Negative for intraepithelial lesion or malignancy. No endocervical cells seen. HPV High Risk: Negative HPV Genotyping 16: Negative HPV Genotyping 18: Negative Clinical Information LMP: Postmenopausal Previous PAP test: Unknown date/findings Material Received ThinPrep-Cervical Copies To: SANDRA VIEIRA NP [address] [place], [place] [phone] Herminio Britton MD [facility] [address] [place] [address] [address] [place] [address] ----- ------- Signed (signature on file) AVELINO Romero (ASC) 06/20/24 0928 ----- ------- END OF REPORT Generic External Data Provider LAB CYTOLOGY ORDE RABLES Final Result Performing Organization Address [facility]/ZIP Co de Phone Number [facility] [address] [place] [phone] * HPV mRNA E6/E7 w/Reflex to HPV Genotypes 16, 18/45 (06/17/2024 12:00 AM EST) Historical Provider MD LAB CYTOLOGY ORDERABLES F inal Result Performing Organization Address [facility] Co de Phone Number [facility] [address] [place] [address] [phone] * HIV-1/2 Antigen and Antibodies, Fourth Generation, with Reflexes (03/24/2024 3:20 PM EDT) HIV AB/AG Nonreactive Nonreactive [facility] Comment:HIV-1 p24 Ag and/or HIV-1/HIV-2 Ab not detected.A test result that is nonreactive does not exclude thepossibility of exposure to or infection with HIV-1 and/orHIV-2. Nonreactive results in this assay for individualswith prior exposure to HIV-1 and/or HIV-2 may be due toantigen and antibody levels that are below the limit ofdetection of this assay.The Volusion HIV Ag/Ab Combo assay result andsupplemental assay results should be interpreted inconjunction with the patient's clinical presentation,history and other laboratory results. If the results areinconsistent with clinical evidence, additional testing issuggested to confirm the result. 03/24/2024 3:20 PM EDT 03/24/2024 3:20 PM EDT [facility] External Data Provider LAB BLOOD ORDERAB LES Final Result Performing Organization Address [facility] de Phone Number [facility] [address] [place] [phone] * (ABNORMAL) Albumin, Random Urine W/Creatinine (05/01/2023 11:30 AM EDT) Creatinine, Urine 302.38 mg/dL [facility] Microalbumin Urine 107.0 mg/L [facility] Microalbum Creatinine Ratio Ur 35.3(H) <30 ug/mg cr [facility] Comment:Albumin/Creatinine R atio Reference Ranges: Normal: < 30 ug/mg creatinine Microalbuminuria: 30 - 300 ug/mg creatinineClinical Albuminuria: > 300 ug/mg creatinine Urine (Urine, Random) 05/01/2023 11:30 AM EDT 05/01/2023 1:17 PM EDT [facility] LAB URINE ORDERABLES Final Resul t Performing Organization Address [facility] Co de Phone Number [facility] [address] [place] [phone] * (ABNORMAL) Lipid Panel, Standard (05/01/2023 11:30 AM EDT) Triglycerides 189(H) <150 mg/dL [facility] Comment:Desirable Triglyceri de: less than 150 mg/dLBorderline High Triglyceride 150-199 mg/dLHigh Triglyceride: 200-499 mg/dLVery High Triglyceride: greater than or equal to 5OO mg/dL Cholesterol 188 <200 mg/dL [facility] Comment:Desirable Cholestero l: less than 200 mg/dLBorderline High Cholesterol: 200-239 mg/dLHigh Cholesterol: greater than 239 mg/dL LDL Cholesterol Calculated 98 <100 mg/dL [facility] Comment:Desirable LDL: less than 100 mg/dLNear Optimal/Above Optimal LDL: 110- 129 mg/dLBorderline High LDL: 130-159 mg/dLHigh LDL: 160-189 mg/dLVery High LDL: greater than or equal to 190 mg/dL HDL Cholesterol 53 >40 mg/dL [facility] Comment:Desirable HDL: great er than 40 mg/dL Note: This HDL assay may give artificially low results in patients with liver disease. Blood Venous blood specimen / Unknown 05/01/2023 11:30 AM EDT 05/01/2023 1:23 PM EDT Sandra Vieira [facility] LAB BLOOD ORDERABLES Final Resul t Performing Organization Address City/State/[facility] Co de Phone Number [facility] [address] [place] [phone] from Last 3 Months or Most Recently Relevant to Health Maintenance [place] [address] [place] [address] C3 Care Teams Powder Core Tester Relationship Specialty Start Date End Date Sandra Vieira ANP [address] [place] [address] PCP - General Family Medicine 09/03/20 April Michele MD [address] [facility] [address] [place] [address] Referring Physician Infectious Diseases 10/09/24 Lee Hubbard MD [address] [place] [address] Urology 10/09/24 Rajni García, TIM [address] [place] [address] Registered Nurse Family Medicine 05/13/25 La Haddad 05/13/25 [facility] cardiology 11/12/23
--- OUTSIDE RECORDS SUMMARY | 2025-05-20 18:54 | XMS_ITS ---
Author Organization [employer] Address [address] [facility] 7t [place] [address] Care Team Providers Care Halal Meat Packer Name Role Phone Wanda Bonilla Primary Care Provider April Michele MD Unavailable [phone] Lee Hubbard MD Unavailable Rajni García RN Unavailable [phone] La Haddad Unavailable [facility] Status:Outreach In Progress (Enrolling) Start date:05/13/2025 Enrollment reason:ADT Feed Overview ADT-[facility] ED 05/12/25. Please outreach for enrollment. Case Team Name Relationship Phone La Haddad(Responsible Staff) [phone] Continued Care and Services Coordination
== END 2025-05-20 13:48 | disposition home or self-care (01) ==
LOC: HO.HPS 13:22
PROVIDERS: PCP Nurse Practitioner Primary Care; Visit Provider Internal Medicine
DX: J45.909 Unspecified asthma, uncomplicated (principal); G47.9 Sleep disorder, unspecified
CPT/HCPCS: 99213

== ENCOUNTER → 2025-05-20 13:21 | Outpatient (BNVA) | payer MEDICAID, SELFPAY | PROVIDERS: PCP Nurse Practitioner Primary Care; Visit Provider Internal Medicine | DX: J45.909 Unspecified asthma, uncomplicated (principal); G47.9 Sleep disorder, unspecified | CPT/HCPCS: 99212 ==

== ENCOUNTER 2025-06-09 06:14 | Outpatient (REF) | payer MEDICAID, SELFPAY ==
--- OUTSIDE RECORDS SUMMARY | 2025-06-09 06:17 | XMS_ITS | Encounter Summary ---
Author Organization [employer] Address [address] [place] [address] 7t [place] [address] Care Team Providers Care Steel Unloader Name Role Phone Wanda Bonilla Primary Care Provider Rajni García RN Unavailable [phone] April Michele MD Unavailable [phone] Lee Hubbard MD Unavailable Rajni García RN Unavailable [phone] La Haddad Unavailable Reason for Visit * Reason Onset Date Comments Referral 08/30/2022 Encounter Details Date Type Department Care Team (Late st Contact Info) Description 08/30/2022 Telephone [facility] MEDICINE [address] [place], [place] [phone] Wanda Bonilla ANP [address] [place], [place] [phone] Referral Social History Tobacco Use Types Packs/Day [...] see a neurologist Please contact pt at [phone] documented in this encounter Plan of Treatment Upcoming Encounters Date Type Department Care Team (Late st Contact Info) Description 07/02/2025 1:00 PM EST Office Visit [facility] MEDICINE [address] [place] [address] Wanda Bonilla ANP [address] [place] [address] 09/08/2025 1:30 PM EST Office Visit [facility] OPTOMETRY [address] [place] [address] Tyler, Smiley, OD [address] [place] [address] documented as of this encounter Visit Diagnoses Not on filedocumented in this encounter Additional Health Concerns Assessment Noted Time PHQ-9 Depression Total Score: 0 08/25/19 23 1:48 PM EST documented as of this encounter Care Teams Steel Unloader Relationship Specialty Start Date End Date Wanda Bonilla ANP [address] [place] [address] PCP - General Family Medicine 09/03/20 Rajni García, TIM [address] [place] [address] Brand InspectorInsole Lip Turner 09/18/24 12/15/24 April Michele MD [address] [address] Referring Physician Infectious Diseases 10/09/24 Lee Hubbard MD [address] [place] [address] Urology 10/09/24 Rajni García RN [address] [place] [address] Registered Nurse Family Medicine 05/13/25 La Haddad 05/13/25 [facility] cardiology 11/12/23 documented as of this encounter
--- OUTSIDE RECORDS SUMMARY | 2025-06-09 06:17 | XMS_ITS | Encounter Summary ---
Author Organization [employer] Address [address] [facility] 7t [place] [address] Care Team Providers Care Venture Capitalist Name Role Phone Wanda Bonilla Primary Care Provider [phone] Rajni García RN Unavailable [phone] April Michele MD Unavailable [phone] Lee Hubbard MD Unavailable Rajni García RN Unavailable [phone] La Haddad Unavailable Reason for Visit * Reason Onset Date Comments Med Refill 08/28/2023 Encounter Details Date Type Department Care Team (Late st Contact Info) Description 08/28/2023 Telephone [facility] MEDICINE [address] [place], [place] [phone] Wanda oBnilla ANP [address] [place], [place] [phone] Med Refill Social History Tobacco Use Types [...] MG/1.5ML solution pen-injector To be sent to: [facility] documented in this encounter Plan of Treatment Upcoming Encounters Date Type Department Care Team (Late st Contact Info) Description 07/02/2025 1:00 PM EST Office Visit [facility] MEDICINE [address] [place], [place] [phone] Wanda Bonilla ANP [address] [place] [address] 09/08/2025 1:30 PM EST Office Visit [facility] OPTOMETRY [address] [place] [address] Smiley Scott, OD [address] [place] [address] documented as of this encounter Visit Diagnoses Not on filedocumented in this encounter Additional Health Concerns Assessment Noted Time PHQ-9 Depression Total Score: 0 08/25/19 23 1:48 PM EST documented as of this encounter Care Teams Venture Capitalist Relationship Specialty Start Date End Date Wanda Bonilla ANP [address] [place] [address] PCP - General Family Medicine 09/03/20 Rajni García, TIM [address] [place] [address] Physical Security ManagerJewel Bearing Driller 09/18/24 12/15/24 April Michele MD [address] [facility] [address] [place] [address] Referring Physician Infectious Diseases 10/09/24 Lee Hubbard MD [address] [place] [address] Urology 10/09/24 Rajni García, RN [address] [place] [address] Registered Nurse Family Medicine 05/13/25 La Haddad 05/13/25 [facility] cardiology 11/12/23 documented as of this encounter
--- OUTSIDE RECORDS SUMMARY | 2025-06-09 06:17 | XMS_ITS | Encounter Summary ---
Author Organization [employer] Address [address] [place] [address] 7t [place] [address] Care Team Providers Care Clothing Pattern Preparer Name Role Phone Wanda Bonilla Primary Care Provider Rajni García RN Unavailable [phone] April Michele MD Unavailable [phone] Lee Hubbard MD Unavailable [phone] Rajni García RN Unavailable [phone] La Haddad Unavailable Encounter Details Date Type Department Care Team (Late st Contact Info) Description 08/09/2022 Orders Only [facility] MEDICINE [address] [place] [phone] Shanna Lopez LPN Social History Tobacco Use [...] 1:00 PM EST Office Visit [facility] MED[facility]INE [address] [place], [place] [phone] Wanda Bonilla ANP [address] [place] [address] 09/08/2025 1:30 PM EST Office Visit [facility] OPTOMETRY [address] [place] [phone] Smiley Scott, OD [address] [place] [address] documented as of this encounter Visit Diagnoses Not on filedocumented in this encounter Care Teams Clothing Pattern Preparer Relationship Specialty Start Date End Date Wanda Bonilla ANP [address] [place] [address] PCP - General Family Medicine 09/03/20 Rajni García, RN [address] [place] [address] Scarifier OperatorChain Saw Mechanic 09/18/24 12/15/24 April Michele MD [address] [facility] [address] [place] [address] Referring Physician Infectious Diseases 10/09/24 Lee Hubbard MD [address] [place] [address] Urology 10/09/24 Rajni García, TIM [address] [place] [address] Registered Nurse Family Medicine 05/13/25 La Haddad 05/13/25 [facility] cardiology 11/12/23 documented as of this encounter
--- OUTSIDE RECORDS SUMMARY | 2025-06-09 06:17 | XMS_ITS | Encounter Summary ---
Author Organization [employer] Address [address] [facility] 7t [place] [address] Care Team Providers Care Certified Solid Waste Facility Operator Name Role Phone Wanda Bonilla Primary Care Provider Rajni García RN Unavailable [phone] April Michele MD Unavailable [phone] Lee Hubbard MD Unavailable Rajni García RN Unavailable [phone] La Haddad Unavailable Reason for Visit * Reason Comments Med Refill Encounter Details Date Type Department Care Team (Late st Contact Info) Description 08/03/2024 Refill [facility] MEDICINE [address] [place], [place] [phone] Wanda Bonilla ANP [address] [place], [place] [phone] Essential hypertension Social History Tobacco Use Types [...] the past 12 months, has t he [employer], gas, oil or water company threatened to [...] Description 07/02/2025 1:00 PM EST Office Visit [facility] MEDICINE [address] [place] [address] Wanda Bonilla ANP [address] [place] [address] 09/08/2025 1:30 PM EST Office Visit [facility] OPTOMETRY [address] [place] [address] Tyler, Smiley, OD [address] [place] [address] documented as of this encounter Visit Diagnoses Diagnosis Essential hypertension Unspecified essential hypertension documented in this encounter Additional Health Concerns Assessment Noted Time PHQ-9 Depression Total Score: 5 11/23/19 24 1:33 PM EDT documented as of this encounter Care Teams Certified Solid Waste Facility Operator Relationship Specialty Start Date End Date Wanda Bonilla ANP [address] [place] [address] PCP - General Family Medicine 09/03/20 Rajni García RN [address] [place] [address] LandscaperMusician Instrumental 09/18/24 12/15/24 April Michele MD [address] [facility] [address] [place] [address] Referring Physician Infectious Diseases 10/09/24 Lee Hubbard MD [address] [place] [address] Urology 10/09/24 Rajni García RN [address] [place] [address] Registered Nurse Family Medicine 05/13/25 La Haddad 05/13/25 [facility] cardiology 11/12/23 documented as of this encounter
--- OUTSIDE RECORDS SUMMARY | 2025-06-09 06:17 | XMS_ITS | Encounter Summary ---
Author Organization [employer] Address [address] [facility] [address] 7t [place] [address] Care Team Providers Care Spray Blender Name Role Phone Irene Wanda HARO Primary Care Provider [phone] Rajni García RN Unavailable [phone] April Michele MD Unavailable [phone] Lee Hubbard MD Unavailable [phone] Rajni García RN Unavailable [phone] La Haddad Unavailable Encounter Details Date Type Department Care Team (Late st Contact Info) Description 08/14/2024 Telephone [facility] MEDICINE [address] [place], [place] [phone] Adolfo Fernando, VishnuD Social History Tobacco Use [...] Visit [facility] MEDICINE [address] [place] [address] Wanda Bonilla ANP [address] [place] [address] 09/08/2025 1:30 PM EST Office Visit [facility] OPTOMETRY [address] [place] [address] Smliey Scott OD [address] [place] [address] documented as of this encounter Visit Diagnoses Not on filedocumented in this encounter Additional Health Concerns Assessment Noted Time PHQ-9 Depression Total Score: 5 11/23/19 1:33 PM EDT documented as of this encounter Care Teams Spray Blender Relationship Specialty Start Date End Date Wanda Bonilla ANP [address] [place] [address] PCP - General Family Medicine 09/03/20 Rajni García RN [address] [place] [address] Potato GraderExchange Floor Manager 09/18/24 12/15/24 April Michele MD [address] [facility] [address] [place] [address] Referring Physician Infectious Diseases 10/09/24 Lee Hubbrad MD [address] [place] [address] Urology 10/09/24 Rajni García RN [address] [place] [address] Registered Nurse Family Medicine 05/13/25 La Haddad 05/13/25 [facility] cardiology 11/12/23 documented as of this encounter
--- OUTSIDE RECORDS SUMMARY | 2025-06-09 06:17 | XMS_ITS | Encounter Summary ---
Author Organization [employer] Address [address] [facility] 7t [place] [address] Care Team Providers Care Analytics Developer Name Role Phone Wanda Bonilla Primary Care Provider [phone] Rajni García RN Unavailable [phone] April Michele MD Unavailable [phone] Lee Hubbard MD Unavailable [phone] Rajni García RN Unavailable [phone] La Haddad Unavailable Encounter Details Date Type Department Care Team (Late st Contact Info) Description 08/28/2023 Orders Only [facility] MEDICINE [address] [place], [place] [phone] Wanda Bonilla ANP [address] [place], [place] [phone] Social History Tobacco Use Types Packs/Day Years [...] Description 07/02/2025 1:00 PM EST Office Visit [facility]INE [address] [place] [address] Wanda Bonilla ANP [address] [place] [address] 09/08/2025 1:30 PM EST Office Visit [facility] OPTOMETRY [address] [place] [address] Tyler, Smiley, OD [address] [place] [address] documented as of this encounter Visit Diagnoses Not on filedocumented in this encounter Additional Health Concerns Assessment Noted Time PHQ-9 Depression Total Score: 0 08/25/19 23 1:48 PM EST documented as of this encounter Care Teams Analytics Developer Relationship Specialty Start Date End Date Wanda Bonilla ANP [address] [place] [address] PCP - General Family Medicine 09/03/20 Rajni García RN 505 [place] [address] Special Effects TechnicianGeographic Information Scientist 09/18/24 12/15/24 April Michele MD [address] [facility] [address] [place] [address] Referring Physician Infectious Diseases 10/09/24 Lee Hubbard MD [address] [place] [address] Urology 10/09/24 Rajni García RN 505 [place] [address] Registered Nurse Family Medicine 05/13/25 La Haddad 05/13/25 [facility] cardiology 11/12/23 documented as of this encounter
--- OUTSIDE RECORDS SUMMARY | 2025-06-09 06:17 | XMS_ITS | Encounter Summary ---
Author Organization [employer] Address [address] [facility] 7t [place] [address] Care Team Providers Care Dumper Bulk System Name Role Phone Irene Wanda HARO Primary Care Provider [phone] Rajni García RN Unavailable [phone] April Michele MD Unavailable [phone] Lee Hubbard MD Unavailable Rajni García RN Unavailable [phone] La Haddad Unavailable Reason for Visit * Reason Comments Med Refill Encounter Details Date Type Department Care Team (Late st Contact Info) Description 03/20/2024 Refill [facility] MEDICINE [address] [place], [place] [phone] Shivani Small CNM [address] [place], [place] [phone] Social History Tobacco Use Types Packs/Day Years [...] the past 12 months, has t he [employer], gas, oil or water [employer] threatened to shut off services in your [...] Description 07/02/2025 1:00 PM EST Office Visit [facility] MEDICINE [address] [place] [address] Wanda Bonilla ANP [address] [place] [address] 09/08/2025 1:30 PM EST Office Visit [facility] OPTOMETRY [address] [place], [place] [phone] Tyler, Smiley, OD [address] [place] [address] documented as of this encounter Visit Diagnoses Not on filedocumented in this encounter Additional Health Concerns Assessment Noted Time PHQ-9 Depression Total Score: 5 11/23/19 24 1:33 PM EDT documented as of this encounter Care Teams Dumper Bulk System Relationship Specialty Start Date End Date Wanda Bonilla ANP [address] [place] [address] PCP - General Family Medicine 09/03/20 Rajni García RN [address] [place] [address] Brake Lining Finisher AsbestosHuman Resources Coordinator 09/18/24 12/15/24 April Michele MD [address] [facility] [address] [place] [address] Referring Physician Infectious Diseases 10/09/24 Lee Hubbard MD [address] [place] [address] Urology 10/09/24 Rajni García RN [address] [place] [address] Registered Nurse Family Medicine 05/13/25 La Haddad 05/13/25 [facility] cardiology 11/12/23 documented as of this encounter
--- OUTSIDE RECORDS SUMMARY | 2025-06-09 06:17 | XMS_ITS | Encounter Summary ---
Author Organization [employer] Address 75 [facility] 7t [place] [address] Care Team Providers Care Senior Quantity Surveyor Name Role Phone Wanda Bonilla Primary Care Provider Rajni García RN Unavailable [phone] April Michele MD Unavailable [phone] Lee Hubbard MD Unavailable Rajni García RN Unavailable [phone] La Haddad Unavailable Reason for Visit * Reason Onset Date Comments Appointment Request 06/12/2023 Encounter Details Date Type Department Care Team (Late st Contact Info) Description 06/12/2023 Telephone [facility] MEDICINE 230 [place], [place] [phone] Wanda Bonilla ANP 230 [place], [place] [phone] Appointment Request Social History Tobacco Use Types [...] 1:00 PM EST Office Visit [facility] MEDICINE 230 [place] [address] Wanda Bonilla ANP 230 [place] [address] 09/08/2025 1:30 PM EST Office Visit [facility] OPTOMETRY [address] [place] [address] Tyler, Smiley, OD 230 [place] [address] documented as of this encounter Visit Diagnoses Not on filedocumented in this encounter Additional Health Concerns Assessment Noted Time PHQ-9 Depression Total Score: 0 08/25/19 23 1:48 PM EST documented as of this encounter Care Teams Senior Quantity Surveyor Relationship Specialty Start Date End Date Wanda Bonilla ANP 230 [place] [address] PCP - General Family Medicine 09/03/20 Rajni García, RN 505 [place] [address] Liquor TesterMeter Changes Records Clerk 09/18/24 12/15/24 April Michele MD [address] [facility] [address] [place] [address] Referring Physician Infectious Diseases 10/09/24 Lee Hubbard MD [address] [place] [address] Urology 10/09/24 Rajni García, TIM 505 [place] [address] Registered Nurse Family Medicine 05/13/25 La Haddad 05/13/25 [facility] cardiology 11/12/23 documented as of this encounter
--- OUTSIDE RECORDS SUMMARY | 2025-06-09 06:17 | XMS_ITS | Encounter Summary ---
Author Organization [employer] Address [address] [place] [address] 7t [place] [address] Care Team Providers Care Slab Miller Operator Name Role Phone Wanda Bonilla Primary Care Provider Rajni García RN Unavailable [phone] April Michele MD Unavailable [phone] Lee Hubbard MD Unavailable [phone] Rajni García RN Unavailable [phone] La Haddad Unavailable Reason for Visit * Reason Onset Date Comments triage 07/13/2022 Encounter Details Date Type Department Care Team (Late st Contact Info) Description 07/13/2022 Telephone [facility] MEDICINE 230 [place], [place] [phone] Wanda Bonilla ANP 230 [place] [address] triage Social History Tobacco Use Types Packs/Day [...] caller The caller accepted this outcome speaks slovenian documented in this encounter Plan of Treatment Upcoming Encounters Date Type Department Care Team (Late st Contact Info) Description 07/02/2025 1:00 PM EST Office Visit [facility] MEDICINE 230 [place] [address] Wanda Bonilla ANP 230 [place] [address] 09/08/2025 1:30 PM EST Office Visit [facility] OPTOMETRY [address] [place] [address] Tyler, Smiley, OD 230 [place] [address] documented as of this encounter Visit Diagnoses Not on filedocumented in this encounter Care Teams Slab Miller Operator Relationship Specialty Start Date End Date Wanda Bonilla ANP 230 [place] [address] PCP - General Family Medicine 09/03/20 Rajni García RN [address] [place] [address] Admission Nurse CoordinatorFace Painter 09/18/24 12/15/24 April Michele MD [address] [facility] [address] [place] [address] Referring Physician Infectious Diseases 10/09/24 Lee Hubbard MD [address] [place] [address] Urology 10/09/24 Rajni García, TIM [address] [place] [address] Registered Nurse Family Medicine 05/13/25 La Haddad 05/13/25 [facility] cardiology 11/12/23 documented as of this encounter
--- OUTSIDE RECORDS SUMMARY | 2025-06-09 06:17 | XMS_ITS | Encounter Summary ---
Author Organization [employer] Address 75 [facility] 7t [place] [address] Care Team Providers Care Pen Tender Name Role Phone Irene Wanda HARO Primary Care Provider Rajni García RN Unavailable April Michele MD Unavailable [phone] Lee Hubbard MD Unavailable Rajni García RN Unavailable [phone] La Haddad Unavailable Reason for Visit * Reason Comments Med Refill Encounter Details Date Type Department Care Team (Late st Contact Info) Description 03/14/2024 Refill [facility] MEDICINE 230 [place], [place] [phone] Shivani Small CNM 230 [place] [address] Social History Tobacco Use Types Packs/Day Years [...] the past 12 months, has t he [employer], gas, oil or water [employer] threatened to shut off services in your [...] Description 07/02/2025 1:00 PM EST Office Visit [facility] MEDICINE 230 [place] [address] Wanda Bonilla ANP 230 [place] [address] 09/08/2025 1:30 PM EST Office Visit [facility] OPTOMETRY [address] [place], [place] [phone] Tyler, Smiley, OD 230 [place] [address] documented as of this encounter Visit Diagnoses Not on filedocumented in this encounter Additional Health Concerns Assessment Noted Time PHQ-9 Depression Total Score: 5 11/23/19 24 1:33 PM EDT documented as of this encounter Care Teams Pen Tender Relationship Specialty Start Date End Date Wanda Bonilla ANP 230 [place] [address] PCP - General Family Medicine 09/03/20 Rajni García RN 505 [place] [address] Dry Cleaner HelperMarket News Reporter 09/18/24 12/15/24 April Michele MD [address] [facility] [address] [place] [address] Referring Physician Infectious Diseases 10/09/24 Lee Hubbard MD [address] [place] [address] Urology 10/09/24 Rajni García RN 505 [place] [address] Registered Nurse Family Medicine 05/13/25 La Haddad 05/13/25 [facility] cardiology 11/12/23 documented as of this encounter
--- OUTSIDE RECORDS SUMMARY | 2025-06-09 06:18 | XMS_ITS | Encounter Summary ---
Author Organization [employer] Address [address] [place] [address] 7t [place] [address] Care Team Providers Care Lead Case Manager Name Role Phone Wanda Bonilla Primary Care Provider Rajni Gacría RN Unavailable [phone] April Michele MD Unavailable [phone] Lee Hubbard MD Unavailable Rajni García RN Unavailable [phone] La Haddad Unavailable Reason for Visit * Reason Comments Med Refill Encounter Details Date Type Department Care Team (Late st Contact Info) Description 01/11/2023 Refill [facility] MEDICINE 230 [place], [place] [phone] Wanda Bonilla ANP 230 [place], [place] [phone] Social History Tobacco Use Types Packs/Day Years [...] Description 07/02/2025 1:00 PM EST Office Visit [facility] MEDICINE 230 [place] [address] Wanda Bonilla ANP 230 [place] [address] 09/08/2025 1:30 PM EST Office Visit [facility] OPTOMETRY [address] [place] [address] Tyler, Smiley, OD 230 [place] [address] documented as of this encounter Visit Diagnoses Not on filedocumented in this encounter Additional Health Concerns Assessment Noted Time PHQ-9 Depression Total Score: 0 08/25/19 23 1:48 PM EST documented as of this encounter Care Teams Lead Case Manager Relationship Specialty Start Date End Date Wanda Bonilla ANP 230 [place] [address] PCP - General Family Medicine 09/03/20 Rajni García, TIM [address] [place] [address] Resolution RepCandy Roller 09/18/24 12/15/24 April Michele MD [address] [facility] [address] [place] [address] Referring Physician Infectious Diseases 10/09/24 Lee Hubbard MD [address] [place] [address] Urology 10/09/24 Rajni García, TIM [address] [place] [address] Registered Nurse Family Medicine 05/13/25 La Haddad 05/13/25 [facility] cardiology 11/12/23 documented as of this encounter
--- OUTSIDE RECORDS SUMMARY | 2025-06-09 06:18 | XMS_ITS | Encounter Summary ---
Author Organization [employer] Address 75 [facility] 7t [place] [address] Care Team Providers Care Foreign Language Instructor Name Role Phone Wanda Bonilla Primary Care Provider April Michele MD Unavailable [phone] Lee Hubbard MD Unavailable [phone] Rajni García RN Unavailable [phone] La Haddad Unavailable Reason for Visit * Reason Onset Date Comments Referral 01/02/2025 Encounter Details Date Type Department Care Team (Late st Contact Info) Description 01/02/2025 Telephone [facility] MEDICINE 230 [place], [place] [phone] Wanda Bonilla ANP 230 [place], [place] [phone] Referral Social History Tobacco Use Types Packs/Day [...] location of referral for [place] woman[place] to the [facility]. Pt would like a call back to confirm. Please contact pt at [phone]. documented in this encounter Plan of Treatment Upcoming Encounters Date Type Department Care Team (Late st Contact Info) Description 07/02/2025 1:00 PM EST Office Visit [facility] MEDICINE 230 [place] [address] Wanda Bonilla, TAHIR 230 [place] [address] 09/08/2025 1:30 PM EST Office Visit [facility] OPTOMETRY [address] [place] [address] Smiley Scott, OD 230 [place] [address] documented as of this encounter Visit Diagnoses Not on filedocumented in this encounter Additional Health Concerns Assessment Noted Time PHQ-9 Depression Total Score: 5 11/23/19 24 1:33 PM EDT documented as of this encounter Care Teams Foreign Language Instructor Relationship Specialty Start Date End Date Wanda Bonilla ANP 230 [place] [address] PCP - General Family Medicine 09/03/20 April Michele MD [address] [facility] [address] [place] [address] Referring Physician Infectious Diseases 10/09/24 Lee Hubbard MD [address] [place] [address] Urology 10/09/24 Rajni García RN 505 [place] [address] Registered Nurse Family Medicine 05/13/25 La Haddad 05/13/25 [facility] cardiology 11/12/23 documented as of this encounter
--- OUTSIDE RECORDS SUMMARY | 2025-06-09 06:18 | XMS_ITS ---
Author Organization [employer] Address [address] [facility] 7t [place] [address] Care Team Providers Care Software Development Intern Name Role Phone Wanda Bonilla Primary Care Provider [phone] April Michele MD Unavailable [phone] Lee Hubbard MD Unavailable Rajni García RN Unavailable [phone] La Haddad Unavailable [facility] Status:Outreach In Progress (Enrolling) Start date:05/13/2025 Enrollment reason:ADT Feed Overview [facility] ED 05/12/25. Please outreach for enrollment. Case Team Name Relationship Phone La Haddad(Responsible Staff) [phone] Continued Care and Services Coordination
--- OUTSIDE RECORDS SUMMARY | 2025-06-09 06:18 | XMS_ITS | Encounter Summary ---
Author Organization [employer] Address [address] [facility] 7t [place] [address] Care Team Providers Care Home Extension Agent Name Role Phone Wanda Bonilla Primary Care Provider April Michele MD Unavailable [phone] Lee Hubbard MD Unavailable Rajni García RN Unavailable [phone] La Haddad Unavailable Reason for Visit * Reason Onset Date Comments Referral 01/06/2025 Encounter Details Date Type Department Care Team (Late st Contact Info) Description 01/06/2025 Telephone [facility] MEDICINE 230 [place], [place] [phone] Wanda Bonilla ANP 230 [place], [place] [phone] Referral Social History Tobacco Use Types Packs/Day [...] any questions you can contact pt at [phone]. (Albanian Speaker) documented in this encounter Plan of Treatment Upcoming Encounters Date Type Department Care Team (Late st Contact Info) Description 07/02/2025 1:00 PM EST Office Visit [facility] MEDICINE 230 [place] [address] Wanda Bonilla ANP 230 [place] [address] 09/08/2025 1:30 PM EST Office Visit [facility] OPTOMETRY [address] [place] [address] Smiley Scott, OD 230 [place] [address] documented as of this encounter Visit Diagnoses Not on filedocumented in this encounter Additional Health Concerns Assessment Noted Time PHQ-9 Depression Total Score: 5 11/23/19 24 1:33 PM EDT documented as of this encounter Care Teams Home Extension Agent Relationship Specialty Start Date End Date Wanda Bonilla ANP 230 [place] [address] PCP - General Family Medicine 09/03/20 April Michele MD [address] [facility] [address] [place] [address] Referring Physician Infectious Diseases 10/09/24 Lee Hubbard MD [address] [place] [address] Urology 10/09/24 Rajni García, TIM 505 [place] [address] Registered Nurse Family Medicine 05/13/25 La Haddad 05/13/25 [facility] cardiology 11/12/23 documented as of this encounter
--- OUTSIDE RECORDS SUMMARY | 2025-06-09 06:18 | XMS_ITS | Encounter Summary ---
Author Organization [employer] Address [address] [facility] [address] 7t [place] [address] Care Team Providers Care Diesel Locomotive Engineer Name Role Phone Irene Wanda HARO Primary Care Provider [phone] Rajni García RN Unavailable [phone] April Michele MD Unavailable [phone] Lee Hubbard MD Unavailable [phone] Rajni García RN Unavailable [phone] La Haddad Unavailable Encounter Details Date Type Department Care Team (Late st Contact Info) Description 11/25/2024 Orders Only [facility] MED & PEDS 505 [place], [place] [phone] Dina Crawford Social History Tobacco Use Types [...] 07/02/2025 1:00 PM EST Office Visit [facility] MEDICINE 230 [place] [address] Wanda Bonilla, ANP 230 [place] [address] 09/08/2025 1:30 PM EST Office Visit [facility] OPTOMETRY 267 [place] [address] Smiley Scott, OD 230 [place] [address] documented as of this encounter Procedures Procedure Name Priority Date/Time Associated Diagnosis Comments HPV MRNA E6/E7 REFLEX TO HPV 16, 18/45 Routine 06/17/2024 12:00 AM EST documented in this encounter Results * HPV mRNA E6/E7 w/Reflex to HPV Genotypes 16, 18/45 (06/17/2024 12:00 AM EST) us Historical Provider LAB CYTOLOGY ORDERABLES F inal Result [facility] [address] [place] [phone] documented in this encounter Visit Diagnoses Not on filedocumented in this encounter Additional Health Concerns Assessment Noted Time PHQ-9 Depression Total Score: 5 11/23/19 24 1:33 PM EDT documented as of this encounter Care Teams Diesel Locomotive Engineer Relationship Specialty Start Date End Date Wanda Bonilla ANP 230 [place] [address] PCP - General Family Medicine 09/03/20 Rajni García, RN [address] [place] [address] Human Resource AdvisorSet O Type Operator 09/18/24 12/15/24 April Michele MD [address] [facility] [address] [place] [address] Referring Physician Infectious Diseases 10/09/24 Lee Hubbard MD [address] [place] [address] Urology 10/09/24 Rajni García, TIM [address] [place] [address] Registered Nurse Family Medicine 05/13/25 La Haddad 05/13/25 [facility] cardiology 11/12/23 documented as of this encounter
--- OUTSIDE RECORDS SUMMARY | 2025-06-09 06:18 | XMS_ITS | Encounter Summary ---
Author Organization [employer] Address 75 [facility] 7t [place] [address] Care Team Providers Care Sound Mixer Name Role Phone Wanda Bonilla Primary Care Provider Rajni García RN Unavailable [phone] April Michele MD Unavailable [phone] Lee Hubbard MD Unavailable [phone] Rajni García RN Unavailable [phone] La Haddad Unavailable Reason for Visit * Reason Onset Date Comments Results 09/12/2023 Encounter Details Date Type Department Care Team (Late st Contact Info) Description 09/12/[address] [facility] MEDICINE 230 [place], [place] [phone] Wanda Bonilla ANP 230 [place], [place] [phone] Results Social History Tobacco Use Types Packs/Day [...] sometime last week per pt Facility: [facility] Please contact pt at [phone] documented in this encounter Plan of Treatment Upcoming Encounters Date Type Department Care Team (Late st Contact Info) Description 07/02/2025 1:00 PM EST Office Visit [facility] MEDICINE 230 [place], [place] [phone] Wanda Bonilla ANP 230 [place] [address] 09/08/2025 1:30 PM EST Office Visit [facility] OPTOMETRY [address] [place], [place] [phone] Smiley Scott, OD 230 [place] [address] documented as of this encounter Visit Diagnoses Not on filedocumented in this encounter Additional Health Concerns Assessment Noted Time PHQ-9 Depression Total Score: 0 08/25/19 23 1:48 PM EST documented as of this encounter Care Teams Sound Mixer Relationship Specialty Start Date End Date Wanda Bonilla ANP 230 [place] [address] PCP - General Family Medicine 09/03/20 Rajni García, TIM 505 [place] [address] Caregiver Services HomeSlide Attendant 09/18/24 12/15/24 April Michele MD [address] [facility] [address] [place] [address] Referring Physician Infectious Diseases 10/09/24 Lee Hubbard MD [address] [place] [address] Urology 10/09/24 Rajni García, RN 505 [place] [address] Registered Nurse Family Medicine 05/13/25 La Haddad 05/13/25 [facility] cardiology 11/12/23 documented as of this encounter
--- OUTSIDE RECORDS SUMMARY | 2025-06-09 06:18 | XMS_ITS | Encounter Summary ---
Author Organization [employer] Address [address] [place] [address] 7t [place] [address] Care Team Providers Care Hydroponics Grower Name Role Phone Irene Wanda HARO Primary Care Provider [phone] Rajni García RN Unavailable [phone] April Michele MD Unavailable [phone] Lee Hubbard MD Unavailable Rajni García RN Unavailable [phone] La Haddad Unavailable Reason for Visit * Reason Comments Med Refill Encounter Details Date Type Department Care Team (Late st Contact Info) Description 04/03/2023 Refill [facility] MEDICINE 230 [place], [place] [phone] Brenda Lopez MD 230 [place], [place] [phone] Social History Tobacco Use Types Packs/Day Years [...] 07/02/2025 1:00 PM EST Office Visit [facility] MEDICINE 230 [place] [address] Wanda Bonilla ANP [address] [place] [address] 09/08/2025 1:30 PM EST Office Visit [facility] OPTOMETRY [address] [place] [address] Smiley Scott, OD 230 [place] [address] documented as of this encounter Visit Diagnoses Not on filedocumented in this encounter Additional Health Concerns Assessment Noted Time PHQ-9 Depression Total Score: 0 08/25/19 23 1:48 PM EST documented as of this encounter Care Teams Hydroponics Grower Relationship Specialty Start Date End Date Wanda Bonilla ANP 230 [place] [address] PCP - General Family Medicine 09/03/20 Rajni García RN 505 [place] [address] Automotive Diagnostic TechnicianRaiser Helper 09/18/24 12/15/24 April Michele MD [address] [facility] [address] [place] [address] Referring Physician Infectious Diseases 10/09/24 Lee Hubbard MD [address] [place] [address] Urology 10/09/24 Rajni García RN 505 [facility] [place] [address] Registered Nurse Family Medicine 05/13/25 La Haddad 05/13/25 [facility] cardiology 11/12/23 documented as of this encounter
--- OUTSIDE RECORDS SUMMARY | 2025-06-09 06:18 | XMS_ITS | Encounter Summary ---
Author Organization [employer] Address 75 [facility] 7t [place] [address] Care Team Providers Care Process Stripper Name Role Phone Wanda Bonilla Primary Care Provider Rajni García RN Unavailable April Michele MD Unavailable [phone] Lee Hubbard MD Unavailable [phone] Rajni García RN Unavailable [phone] La Haddad Unavailable Reason for Visit * Reason Onset Date Comments Returning Call 01/08/2024 Encounter Details Date Type Department Care Team (Late st Contact Info) Description 01/08/2024 Telephone [facility] MEDICINE 230 [place], [place] [phone] Wanda Bonilla ANP 230 [place], [place] [phone] Returning Call Social History Tobacco Use Types [...] the past 12 months, has t he [employer], gas, oil or water company threatened to [...] pt stated she received a call from foster care case manager regarding new program in [facility], senior mortgage underwriter did not see anything documented but advised will forward message. documented in this encounter Plan of Treatment Upcoming Encounters Date Type Department Care Team (Late st Contact Info) Description 07/02/2025 1:00 PM EST Office Visit [facility] MEDICINE 230 [place] [address] Wanda Bonilla, ANP 230 [place] [address] 09/08/2025 1:30 PM EST Office Visit [facility] OPTOMETRY [address] [place] [address] Smiley Scott, OD 230 [place] [address] documented as of this encounter Visit Diagnoses Not on filedocumented in this encounter Additional Health Concerns Assessment Noted Time PHQ-9 Depression Total Score: 5 11/23/19 24 1:33 PM EDT documented as of this encounter Care Teams Process Stripper Relationship Specialty Start Date End Date Wanda Bonilla ANP 230 [place] [address] PCP - General Family Medicine 09/03/20 Rajni García, TIM 505 [place] [address] Railcar ForemanLozenge Maker 09/18/24 12/15/24 April Michele MD [address] [facility] [address] [place] [address] Referring Physician Infectious Diseases 10/09/24 Lee Hubbard MD [address] [place] [address] Urology 10/09/24 Rajni García, TIM 505 [place] [address] Registered Nurse Family Medicine 05/13/25 La Haddad 05/13/25 [facility] cardiology 11/12/23 documented as of this encounter
--- OUTSIDE RECORDS SUMMARY | 2025-06-09 06:18 | XMS_ITS | Encounter Summary ---
Author Organization [employer] Address [address] [facility] 7t [place] [address] Care Team Providers Care Lime Boiler Name Role Phone Wanda Bonilla Primary Care Provider [phone] Rajni García RN Unavailable [phone] April Michele MD Unavailable [phone] Lee Hubbard MD Unavailable [phone] Rajni García RN Unavailable [phone] La Haddad Unavailable Encounter Details Date Type Department Care Team (Late st Contact Info) Description 09/26/[address] [facility] MEDICINE 230 [place], [place] [phone] Wanda Bonilla ANP 230 [place], [place] [phone] Social History Tobacco Use Types Packs/Day Years [...] Visit [facility] MEDICINE 230 [place] [address] Wanda Bonilla ANP 230 [place] [address] 09/08/2025 1:30 PM EST Office Visit [facility] OPTOMETRY [address] [place] [address] Tyler, Smiley, OD 230 [place] [address] documented as of this encounter Visit Diagnoses Not on filedocumented in this encounter Additional Health Concerns Assessment Noted Time PHQ-9 Depression Total Score: 0 08/25/19 23 1:48 PM EST documented as of this encounter Care Teams Lime Boiler Relationship Specialty Start Date End Date Wanda Bonilla ANP 230 [place] [address] PCP - General Family Medicine 09/03/20 Rajni García, RN 505 [place] [address] Technology Training AssociateSustainability Executive Director 09/18/24 12/15/24 April Michele MD [address] [facility] [address] [place] [address] Referring Physician Infectious Diseases 10/09/24 Lee Hubbard MD [address] [place] [address] Urology 10/09/24 Rajni García, TIM 505 [place] [address] Registered Nurse Family Medicine 05/13/25 La Haddad 05/13/25 [facility] cardiology 11/12/23 documented as of this encounter
--- OUTSIDE RECORDS SUMMARY | 2025-06-09 06:18 | XMS_ITS | Clinical Summary ---
Author Organization [address] [facility] Address [address] [place] [address] Phone Care Team Providers Care Test Evaluator Name Role Phone Regina Su ADRIANNE Primary [...] topic Insurance MEDICAID - [place] Care Teams Test Evaluator Relationship Specialty Start Date End Date Regina Su FNP [address] [place] [address] PCP - General Nurse Practitioner 07/11/24
--- OUTSIDE RECORDS SUMMARY | 2025-06-09 06:18 | XMS_ITS ---
Author Organization [employer] Address [address] [facility] [address]t [place] [address] Care Team Providers Care Reception Interviewer Name Role Phone Wanda Bonilla Primary Care Provider April Michele MD Unavailable [phone] Lee Hubbard MD Unavailable Rajni García RN Unavailable La Haddad Unavailable CM Complex Status:Outreach In Progress (Enrolling) Start date:05/13/2025 Enrollment reason:ADT Feed Overview [facility] ED 05/12/25 Case Team Name Relationship Phone Rajni García RN(Responsible Staff) Registered Nurse [phone] Continued Care and Services Coordination
--- OUTSIDE RECORDS SUMMARY | 2025-06-09 06:18 | XMS_ITS | Encounter Summary ---
Author Organization [employer] Address [address] [facility] 7t [place] [address] Care Team Providers Care Route Supervisor Name Role Phone Wanda Bonilla Primary Care Provider [phone] Rajni García RN Unavailable [phone] April Michele MD Unavailable [phone] Lee Hubbard MD Unavailable [phone] Rajni García RN Unavailable [phone] La Haddad Unavailable Reason for Visit * Reason Comments Med Refill Encounter Details Date Type Department Care Team (Late st Contact Info) Description 11/05/2023 Refill [facility] MEDICINE [address] [place], [place] [phone] Wanda Bonilla ANP [address] [place], [place] [phone] Social History Tobacco Use Types Packs/Day Years [...] 07/02/2025 1:00 PM EST Office Visit [facility] MEDICINE [address] [place] [address] Wanda Bonilla ANP [address] [place] [address] 09/08/2025 1:30 PM EST Office Visit [facility] OPTOMETRY [address] [place] [address] Tyler, Smiley, OD [address] [place] [address] documented as of this encounter Visit Diagnoses Not on filedocumented in this encounter Additional Health Concerns Assessment Noted Time PHQ-9 Depression Total Score: 0 08/25/19 23 1:48 PM EST documented as of this encounter Care Teams Route Supervisor Relationship Specialty Start Date End Date Wanda Bonilla ANP [address] [place] [address] PCP - General Family Medicine 09/03/20 Rajni García RN [address] [place] [address] Laundry Machine TenderWater Restoration Technician 09/18/24 12/15/24 April Michele MD [address] [facility] [address] [place] [address] Referring Physician Infectious Diseases 10/09/24 Lee Hubbard MD [address] [facility] [address] [place] [address] Urology 10/09/24 Rajni García, TIM [address] [place] [address] Registered Nurse Family Medicine 05/13/25 La Haddad 05/13/25 [facility] cardiology 11/12/23 documented as of this encounter
--- OUTSIDE RECORDS SUMMARY | 2025-06-09 06:18 | XMS_ITS | Encounter Summary ---
Author Organization [employer] Address [address] [facility] 7t [place] [address] Care Team Providers Care Brewery Technician Name Role Phone Wanda Bonilla Primary Care Provider Rajni García RN Unavailable [phone] April Michele MD Unavailable [phone] Lee Hubbard MD Unavailable Rajni García RN Unavailable [phone] La Haddad Unavailable Reason for Visit * Reason Onset Date Comments Hospital Follow-up 11/15/2023 Encounter Details Date Type Department Care Team (Late st Contact Info) Description 11/15/2023 Telephone [facility] MEDICINE [address] [place], [place] [phone] Wanda Bonilla ANP [address] [place], [place] [phone] Hospital Follow-up Social History Tobacco Use Types [...] from pt requesting a HDF appt. Hospital: [facility] Date of admission: 11/09 Discharge date: 11/13 Diagnosed: Neuropathy documented in this encounter Plan of Treatment Upcoming Encounters Date Type Department Care Team (Late st Contact Info) Description 07/02/2025 1:00 PM EST Office Visit [facility] MEDICINE [address] [place] [address] Wanda Bonilla ANP [address] [place] [address] 09/08/2025 1:30 PM EST Office Visit [facility] OPTOMETRY [address] [place] [address] Smiley Scott, JUDITH [address] [place] [address] documented as of this encounter Visit Diagnoses Not on filedocumented in this encounter Additional Health Concerns Assessment Noted Time PHQ-9 Depression Total Score: 0 08/25/19 23 1:48 PM EST documented as of this encounter Care Teams Brewery Technician Relationship Specialty Start Date End Date Wanda Bonilla ANP [address] [place] [address] PCP - General Family Medicine 09/03/20 Rajni García, RN [address] [place] [address] Exceptional Children TeacherTube Blower 09/18/24 12/15/24 April Michele MD [address] [facility] [address] [place] [address] Referring Physician Infectious Diseases 10/09/24 Lee Hubbard MD [address] [place] [address] Urology 10/09/24 Rajni García RN [address] [place] [address] Registered Nurse Family Medicine 05/13/25 La Haddad 05/13/25 [facility] cardiology 11/12/23 documented as of this encounter
--- OUTSIDE RECORDS SUMMARY | 2025-06-09 06:18 | XMS_ITS | Encounter Summary ---
Author Organization [employer] Address [address] [facility] 7[address] [place] [address] Care Team Providers Care Weight Count Operator Name Role Phone Wanda Bonilla Primary Care Provider [phone] Rajni García RN Unavailable [phone] April Michele MD Unavailable [phone] Lee Hubbard MD Unavailable Rajni García RN Unavailable La Haddad Unavailable Reason for Visit * Reason Onset Date Comments Med Refill 10/01/2023 Encounter Details Date Type Department Care Team (Late st Contact Info) Description 10/01/2023 Telephone [facility] MEDICINE [address] [place], [place] [phone] Wanda Bonilla ANP [address] [place], [place] [phone] Med Refill Social History Tobacco Use Types [...] 250 MG tablet To be sent to: [facility] pharmacy documented in this encounter Plan of Treatment Upcoming Encounters Date Type Department Care Team (Late st Contact Info) Description 07/02/2025 1:00 PM EST Office Visit [facility] MEDICINE [address] [place], [place] [phone] Wanda Bonilal ANP [address] [place] [address] 09/08/2025 1:30 PM EST Office Visit [facility] OPTOMETRY [address] [place], [place] [phone] Smiley Scott, JUDITH [address] [place] [address] documented as of this encounter Visit Diagnoses Not on filedocumented in this encounter Additional Health Concerns Assessment Noted Time PHQ-9 Depression Total Score: 0 08/25/19 23 1:48 PM EST documented as of this encounter Care Teams Weight Count Operator Relationship Specialty Start Date End Date Wanda Bonilla ANP [address] [facility] [place] [address] PCP - General Family Medicine 09/03/20 Rajni García, RN [address] [facility] [address] Relief CookWad Lubricator 09/18/24 12/15/24 April Michele MD [address] [facility] [address] [place] [address] Referring Physician Infectious Diseases 10/09/24 Lee Hubbard MD [address] [place] [address] Urology 10/09/24 Rajni García, RN [address] [facility] [place] [address] Registered Nurse Family Medicine 05/13/25 La Haddad 05/13/25 [facility] cardiology 11/12/23 documented as of this encounter
--- OUTSIDE RECORDS SUMMARY | 2025-06-09 06:18 | XMS_ITS | Clinical Summary ---
Author Organization [employer] Address [address] [place] [address] 7[address] [place] [address] Care Team Providers Care Bit Sharpener Operator Name Role Phone Sandra Vieira Primary Care Provider April Michele MD Unavailable [phone] Lee Hubbard MD Unavailable Rajni García RN Unavailable [phone] La Haddad Unavailable Allergies Active Allergy [...] Active insulin pen needle (Easy Touch Pen [place]) 31G X 8 mm miscIndications: Diabetic polyneuropathy associated with type 2 diabetes mellitus (HCC) USE DIRECTED FOUR TIMES DAILY 100 each 11 025 Active Blood Pressure Monitoring (Omron 3 Series BP Monitor) device Use as directed 1x/d 1 each 025 Active Blood Glucose Monitoring Suppl (American WellStyle [place] Lite) w/Device kit Use to test blood [...] EVERY MORNING 90 capsule 2 025 Active estradiol (Estrace) 0.1 MG/GM [...] for rash. 30 g 1 025 Active sofosbuvir-velpa tasvir (Epclusa) 400-100 MG [...] hyperglycemia, with long-term current use of insulin (HCC) INJECT 54 UNITS SUBCUTANEOUSLY EVERY DAY 15 mL 3 025 Active lisinopril 40 MG tablet TAKE 1 TABLET BY MOUTH EVERYDAY AT NOON 90 tablet 3 025 Active gabapentin (Neurontin) 300 MG [...] NOON AND BEDTIME 180 tablet 1 Active lidocaine 2 % gelIndications:C hronic left shoulder pain Apply to affected area daily prn 6 mL 1 025 2025 Active Aspirin Low Dose 81 MG EC tablet TAKE 1 TABLET BY MOUTH EVERY EVENING 90 tablet 3 024 2024 Discontinued lidocaine (Lidoderm) 5 % patchIndications :Pain APPLY 1 PATCH TOPICALLY TO SKIN, LEAVE ON FOR 12 HOURS AND OFF FOR 12 HOURS DIRECTED. May use 2 patches at once. 60 patch 2 025 2024 Discontinued NIFEdipine XL (Procardia XL) 60 MG 24 hr tabletIndication s:Primary hypertension TAKE 1 TABLET BY MOUTH EVERY MORNING BEFORE BREAKFAST DO NOT BREAK, CRUSH, DISSOLVE OR CHEW 025 2024 Discontinued(D uplicate order (will not trigger notification to Pharmacy)) carvedilol [...] Active Problems Problem Noted Date Diagnosed Date Chronic left shoulder pain 05/28/2025 Right flank pain 02/06/2025 Pelvic pain 02/06/2025 [...] while admitted. She did get established with [facility] cardiology. I will request updated notes. Patient [...] opiates) with Tylenol and ibuprofen I called [facility] cardiology clinic and they will call patient [...] Chest pain 12/07/2023 Overview (12/07/2023): Admitted at [facility] 11/11/-11/14/23 ?NSTEMI Optimize BP, DM, minimize risk [...] Psychiatrist decreased seroquel. She was referred to [facility] Breast Specialist for further eval. History of [...] Cirrhosis of liver (CMS/HCC) 07/27/2017 Overview (10/01/2023): [facility] GI D/t HCV (suspect s/p blood transfusion [...] hepatic mass identified. Dystrophia unguium 05/12/2015 Prolactinoma ([facility]/HCC) 05/12/2015 Diabetic polyneuropathy 07/09/2014 Carpal tunnel syndrome [...] Diagnosed Date Resolved Date Bipolar disease in ([facility]/HCC) 08/02/202308/02/2023 Breast mass 08/02/2023 08/02/2023 08/02/2023 UTI symptoms 08/02/2023 08/02/2023 08/02/2023 Flank pain 04/24/2023 08/02/2023 Hepatitis C 04/24/2023 08/02/2023 Urinary tract infection 04/24/202310/2023 Chronic hepatitis ([facility]/HCC) 04/24/2023 08/02/2023 UTI (urinary tract infection) 03/09/2023 08/02/2023 Assessment & Plan (03/09/2023 2:36 PM EDT): Drink plenty of water Do not hold the urine Insulin dependent type 1 diabetes mellitus 09/24/2018 08/02/2023 Benign neoplasm of pituitary gland ([facility]) 3 08/29/2023 02/10/2025 Encounters Date Type Department Care Team Description 05/25/2025 1:00 PM EDT Office Visit [facility] [address] [place] [phone] Melonie Seth, ADRIANNE Chronic left shoulder pain (Primary Dx) 05/25/2025 Travel 05/13/2025 Patient Outreach [address] [address] Sandra Vieira ANP Care Coordination (CM/CHW outreach) 05/13/2025 Patient Outreach [address] [address] Sandra Vieira ANP Care Coordination (CHW Chart Review) 05/13/2025 Patient Outreach [address] [address] Sandra Vieira ANP 05/13/2025 Patient Outreach [address] [address] Sandra Vieira ANP 05/13/2025 Refill [facility] [address] [place] [address] Jose Maria Farnsworth MD Primary hypertension 05/13/2025 Refill [facility] [address] [place] [address] Sandra Vieira ANP Diabetic polyneuropathy associated with type 2 diabetes mellitus (HCC); Primary hypertension 05/12/2025 Orders Only GENERIC EXTERNAL DATA DEPARTMENT Provider, Generic External Data 04/29/2025 Telephone [facility] [address] [place] [address] Star Scottn, OD 04/22/2025 Refill [facility] [address] [place] [address] Sandra Vieira ANP 04/20/2025 Telephone [facility] [address] [place] [address] Tyler Smiley, OD 04/20/2025 Telephone [facility] [address] [place] [address] Sandra Vieira ANP dec recall 04/12/2025 Refill [facility] [address] [place] [address] Sandra Vieira ANP 04/09/2025 Refill [facility] [address] [place] [address] Sandra Vieira ANP Type 2 diabetes mellitus with hyperglycemia, with long-term current use of insulin (CMS/HCC) 04/02/2025 2:30 PM EDT Office Visit [facility] [address] [place] [address] Sandra Vieira ANP Tobacco abuse counseling (Primary Dx); Type 2 diabetes mellitus with hyperlipidemia (CMS/HCC) (CMS/HCC) 04/02/2025 Travel 03/20/2025 Refill [facility] [address] [place] [address] Sandra Vieira ANP Diabetic polyneuropathy associated with type 2 diabetes mellitus (CMS/HCC) 03/19/2025 Orders Only GENERIC EXTERNAL DATA DEPARTMENT Provider, Generic External Data 03/14/2025 Refill [facility] [address] [place] [address] Sandra Vieira ANP Restless legs 03/12/2025 Refill [facility] [address] [place] [address] Sandra Vieira ANP Type 2 diabetes mellitus with hyperlipidemia ([facility]/HCC) ([facility]); Heartburn from Last 3 Months Immunizations Immunization Administration [...] Sign Reading Time Taken Comments Blood Pressure 131/83 05/25/2025 10:37 AM EDT Pulse 82 05/25/2025 10:37 AM EDT Temperature 36.6 C (97.9 F) 05/25/2025 10:37 AM EDT Respiratory Rate 18 05/25/2025 10:37 AM EDT Oxygen Saturation 97% 05/25/2025 10:37 AM EDT Inhaled Oxygen Concentration - - Weight 77.1 kg (170 lb) 05/25/2025 10:37 AM EDT Height 158 cm (5' 2.21 ) 02/06/2025 11:28 AM EDT Body Mass Index 30.89 02/06/2025 11:28 AM EDT Plan of Treatment Upcoming Encounters Date Type Department Care Team (Late st Contact Info) Description 07/02/2025 1:00 PM EST Office Visit [facility] [address] [place], [place] [phone] Sandra Vieira ANP [address] [place] [address] 09/08/2025 1:30 PM EST Office Visit [facility] [address] [place], [place] [phone] Smiley Scott, OD [address] [place] [address] Health Maintenance Due Date Last Done Comments [...] Alcohol/Substance Use Screening 07/24/2025 07/24/2024 Tobacco Screening 05/25/2026 05/25/2025 Mammogram 07/03/2026 07/03/2024, 11/2023, 01/04/2024, Additional history [...] AM EDT Narrative 05/15/2025 9:56 AM EDT [address] [address] Ultrasound Report Signed Patient: Tank Max MR#: [id number] : 1965 Acct:[id number] Age/Sex: 60 / F ADM Date: 05/14/25 Loc: HO.US Attending Dr: Ashlie Maldonado MD Ordering Physician: Ashlie Maldonado MD Date of Service: 05/14/25 Procedure(s): US abdomen limited Accession Number(s): [id number] cc: Ashlie Maldonado MD; SANDRA VIEIRA NP [...] in OV> 05/15/2555 DD/ 3 TD/TT: 05/15/25953 Inside Sales Account Representative: Procedure Note Donotuseinterpreter, Image - 05/15/[address] [address] Ultrasound Report Signed Patient: Barrera Max#: [id number] : 1965Acct:[id number] Age/Sex: 60 / FADM Date: 05/14/25 Loc: HO.US Attending Dr: Ashlie Maldonado MD Ordering Physician: Ashlie Maldonado MD Date of Service: 05/14/25 Procedure(s): US abdomen limited Accession Number(s): [id number] cc: Ashlie Maldonado MD; SANDRA VIEIRA NP [...] signed by Ck Landaverde MD in OV> 05/15/25 0955 DD/ 3 TD/TT: 05/15/25953 Inside Sales Account Representative: us [facility] External Provider IMG US PROCEDURES Final Result * (ABNORMAL) CBC auto differential (05/12/2025 10:06 AM EDT) White Blood Count 3.3(L) 4.8 - 10.8 X10*3/uL [facility] Red Blood Count 4.31 4.20 - 5.50 X10*6/uL [facility] Hemoglobin 12.4 12.0 - 16.0 g/dl [facility] Hematocrit 36.7(L) 37.0 - 47.0 % [facility] Mean Corpuscular Volume 85.2 80.0 - 98.0 fL [facility] Mean Corpuscular Hemoglobin 28.8 27.0 - 33.0 pg [facility] Mean Corpuscular HGB Conc 33.8 31.0 - 35.0 g/dl [facility] Red Cell Distribution Width 12.7 11.0 - 16.0 % [facility] Platelet Count 98(L) 160 - 400 X10*3/uL [facility] Mean Platelet Volume 9.9 9.4 - 12.3 fL [facility] Neutrophils Percent Auto 54.2 45 - 73 % [facility] Imm Gran Pct Auto 0.0 0.0 - 0.4 % [facility] Lymphocytes Percent Auto 31.6 20 - 40 % [facility] Monocytes Percent Auto 11.2(H) 2 - 11 % [facility] Eosinophils Percent Auto 2.7 0 - 4 % [facility] Basophils Percent Auto 0.3 0 - 2 % [facility] NRBC Pct Auto 0.0 0.0 - 0.2 /100WBC [facility] Neutrophils Absolute Auto 1.8(L) 2.0 - 8.3 x10*3/uL [facility] Imm Gran Abs Auto 0.00 0.00 - 0.03 X10*3/uL [facility] Lymphocytes Absolute Auto 1.0(L) 1.2 - 4.9 X10*3/uL [facility] Monocytes Absolute Auto 0.4 0.1 - 1.2 X10*3/uL [facility] Eosinophils Absolute Auto 0.1 0.0 - 0.4 X10*3/uL [facility] Basophils Absolute Auto 0.0 0.0 - 0.2 X10*3/uL [facility] NRBC Abs Auto 0.000 0.0 - 0.012 X10*3/uL [facility] 05/12/2025 10:0 6 AM EDT 05/12/2025 10:12 AM EDT us Generic External Data Provider LAB BLOOD ORDERAB LES Final Result [facility] [address] [place] [address] [phone] * Lipase (05/12/2025 10:06 AM EDT) Lipase 21 8 - 78 U/L [facility] 05/12/2025 10:0 6 AM EDT 05/12/2025 10:12 AM EDT us Generic External Data Provider LAB BLOOD ORDERAB LES Final Result Performing Organization Address [facility] Co de Phone Number [facility] [address] [place] [phone] * (ABNORMAL) Hepatic Function Panel (05/12/2025 10:06 AM EDT) Bilirubin, Total 0.4 0.0 - 1.0 mg/dL [facility] Bilirubin, Direct 0.2 0.0 - 0.5 mg/dL [facility] Aspartate Amino Transferase 45(H) 5 - 31 U/L [facility] Alanine Aminotransferase 50(H) 0 - 31 U/L [facility] Total Protein 7.3 6.5 - 8.0 g/dL [facility] Albumin Level 4.1 3.5 - 5.0 g/dL [facility] Alkaline Phosphatase 129(H) 39 - 117 U/L [facility] 05/12/2025 10:0 6 AM EDT 05/12/2025 10:12 AM EDT us Generic External Data Provider LAB BLOOD ORDERAB LES Final Result Performing Organization Address [facility] de Phone Number [facility] [address] [place] [phone] * (ABNORMAL) Basic Metabolic Panel (05/12/2025 10:06 AM EDT) Sodium 144 135 - 145 mmol/L [facility] Potassium 4.2 3.3 - 5.1 mmol/L [facility] Chloride 111(H) 96 - 108 mmol/L [facility] Carbon Dioxide 25 22 - 29 mmol/L [facility] Anion Gap 12 12 - 20 [facility] Urea Nitrogen (BUN) 13 9 - 16 mg/dL [facility] Creatinine, Serum 0.87 0.5 - 1.4 mg/dL [facility] Creatinine Clr Calc Pharmacy 66.3 [facility] Comment:Provided height and weight: 160.02 cm,78.018 kg.eGFR (calculated from the MDRD study equation) and eCrCl(calculated from the Cockcroft-Gault equation) are based ondifferent parameters and may not yield comparable results.If eCrCl result is absurd, please check patient'sheight/weight. Estimated Glomerular Filt Rate >60 [facility] Comment:Chronic Kidney Disea se: Estimated GFR < 60 mL/min/1.83t6Dxuzsi Kidney Disease: Estimated GFR < 15 mL/min/1.73m2 Glucose 88 60 - 115 mg/dL [facility] Calcium 9.2 8.4 - 10.2 mg/dL [facility] 05/12/2025 10:0 6 AM EDT 05/12/2025 10:12 AM EDT us Generic External Data Provider LAB BLOOD ORDERAB LES Final Result [facility] [address] [place] [address] [phone] * (ABNORMAL) Urinalysis, Complete, with Reflex to Culture (05/12/2025 10:03 AM EDT) Color Urine Yellow [facility] Appearance Urine Cloudy [facility] PH 6.0 5.0 - 9.0 [facility] Glucose Urine UA Negative Negative mg/dL [facility] Urine Blood Negative Negative [facility] Specific Waterproof - Urine 1.020 1.005 - 1.025 [facility] Urine Protein Trace Neg-Trace mg/dL [facility] Urine Ketones Negative Negative mg/dL [facility] Nitrite Urine Negative Negative [facility] Leukocyte Esterase Urine Small (1+)(A) Negative [facility] RBC Urine 0-2 0 - 2 /HPF [facility] Urine WBC 0-5 0 - 5 /HPF [facility] Urine Squamous Epithelial Cell >20 0 - 2 /HPF [facility] Urine Bacteria 4+ None Seen [facility] Hyaline Casts, Urine 0-2 0 - 2 /LPF [facility] 05/12/2025 10:0 3 AM EDT 05/12/2025 10:12 AM EDT Narrative [facility] - 05/12/2025 10:28 AM EDT [id number], Clean Catch Generic External Data Provider LAB URINE ORDERAB LES Final Result [facility] [address] [place] [phone] * Culture, Urine, Routine (05/12/2025 12:00 AM EDT) Urine Urine specimen obtained by clean catch procedure / Unknown 05/12/2025 05/12/2025 Comment:UA Narrative [facility] - 05/13/2025 9:16 AM EDT Urine Culture Report Result Urine Culture < 10,000 cfu/ml Specimen Source: Urine clean catch Generic External Data Provider LAB MICROBIOLOGY - GENERAL ORDERABLES Final Result Performing Organization Address City/[facility]/ZIP Co de Phone Number [facility] [address] [place] [phone] * (ABNORMAL) POCT Hgb A1c (04/02/2025 2:44 PM EDT) Hemoglobin A1C 7.2(A) 4.0 - 5.7 % QC Media Lot # [id number] Lot# Expiration Date ,[id number] Blood 04/02/2025 2:44 PM EDT us Sandra Vieira ANP POINT OF CARE TEST ENTER/EDIT OR DERABLES Final Result * (ABNORMAL) POCT Glucose (04/02/2025 2:43 PM EDT) Glucose Blood, POC 218(A) 60 - 200 mg/dL QC Media Lot # [id number] Lot# Expiration Date [id number] Blood Capillary blood specimen / Unknown 04/02/2025 2:43 PM EDT Sandra [facility] POINT OF CARE TEST ENTER/EDIT OR DERABLES Final Result * (ABNORMAL) Hepatitis C Viral RNA, Quantitative, Real-Time PCR (03/19/2025 12:13 PM EDT) Pathologist [facility] Hepatitis C Viral Load 6181501(A ) NOT DETECTED IU/mL [facility] HCV Log PCR 6.20(A) NOT DETECTED Log IU/mL [facility] Comment:For additional infor caleb, please refer tohttp://education.prettysecrets/faq/FMT82j5(This link is being provided for informational/educational purposes only.)THIS TEST WAS PERFORMED AT:[id number] [place] [phone] YO MD 03/19/2025 12:1 3 PM EDT 03/19/2025 12:19 PM EDT Generic External Data Provider LAB BLOOD ORDERAB LES Final Result [facility] [address] [place] [phone] * Alpha-Fetoprotein, Tumor Marker (03/19/2025 12:13 PM EDT) Pathologist [facility] Alpha Fetoprotein 4.8 ng/mL [facility] Comment:Reference Range: <6. 1The use of AFP as a tumor marker in females is not recommended.This test was performed using the Jeanine Coulterchemiluminescent method. Values obtained fromdifferent assay methods cannot be usedinterchangeably. AFP levels, regardless ofvalue, should not be interpreted as absoluteevidence of the presence or absence of disease.THIS TEST WAS PERFORMED AT:[id number] [place] [phone] YO MD 03/19/2025 12:1 3 PM EDT 03/19/2025 12:19 PM EDT us Generic External Data Provider LAB BLOOD ORDERAB LES Final Result Performing Organization Address City/[facility]/ZIP Co de Phone Number [facility] [address] [place] [phone] * (ABNORMAL) CBC (03/19/2025 12:13 PM EDT) White Blood Count 4.5(L) 4.8 - 10.8 X10*3/uL [facility] Red Blood Count 4.11(L) 4.20 - 5.50 X10*6/uL [facility] Hemoglobin 11.8(L) 12.0 - 16.0 g/dl [facility] Hematocrit 35.6(L) 37.0 - 47.0 % [facility] Mean Corpuscular Volume 86.6 80.0 - 98.0 fL [facility] Mean Corpuscular Hemoglobin 28.7 27.0 - 33.0 pg [facility] Mean Corpuscular HGB Conc 33.1 31.0 - 35.0 g/dl [facility] Red Cell Distribution Width 13.1 11.0 - 16.0 % [facility] Platelet Count 96(L) 160 - 400 X10*3/uL [facility] Mean Platelet Volume 11.1 9.4 - 12.3 fL [facility] NRBC Pct Auto 0.0 0.0 - 0.2 /100WBC [facility] NRBC Abs Auto 0.000 0.0 - 0.012 X10*3/uL [facility] 03/19/2025 12:1 3 PM EDT 03/19/2025 12:19 PM EDT us Generic External Data Provider LAB BLOOD ORDERAB LES Final Result Performing Organization Address City/[facility]/ZIP Co de Phone Number [facility] [address] [place] [address] [phone] * BI Mammogram Screening Tomosynthesis Bilateral (07/03/2024 9:53 AM EST) Anatomical Region Laterality Modality Breast Bilateral Mammography 07/03/2024 9:53 AM EST Narrative 07/09/2024 10:57 AM EST [address] [place] [address] Mammography Report Signed Patient: Tank Max MR#: [id number] : 1965 Acct:[id number] Age/Sex: 59 / F ADM Date: 07/03/24 Loc: HO.MAMMO Attending Dr: Herminio Britton MD Ordering Physician: Herminio Britton MD Results: 1Negativ e Date of Service: 07/03/24 Follow Up: 1 Year From Orig ina Mammogram Procedure(s): MM tomosynthesis screening BI Accession Number(s): [id number] cc: SANDRA VIEIRA NP; Herminio Britton MD [...] 07/09/24 1054 DD/ 0953 TD/TT: 07/03/24 1018 Inside Sales Account Representative: Procedure Note Donotuseinterpreter, Image - 07/09/2024 [facility] [address] [place], [place] [address] Mammography Report Signed Patient: Barrera Max#: [id number] : 1965Acct:[id number] Age/Sex: 59 / FADM Date: 07/03/24 Loc: HO.MAMMO Attending Dr: Herminio Britton MD Ordering Physician: Herminio Britotn MDResults: 1Negativ e Date of Service: 07/03/24Follow Up: 1 Year From Orig inal Mammogram Procedure(s): MM tomosynthesis screening BI Accession Number(s): [id number] cc: SANDRA VIEIRA NP; Herminio Britton MD [...] by: Alysa Faith DO 07/09/2024 10:54 AM [facility] Dictated By: Alysa Faith DO Signed By: <Electronically signed by Alysa Faith DO in OV> 07/09/24 1054 DD/ TD/TT: 07/03/24 1018 Inside Sales Account Representative: [facility] External Provider IMG BI PROCEDURES Edited Result - Final * Pap Smear (06/17/2024 10:30 AM EST) 06/17/2024 10:3 0 AM EST 06/18/2024 9:15 AM EST Juan [facility] - 06/20/2024 9:28 AM EST ----- ------- Name: Tank Max Age/Sex: 59/F : 1965 Unit#: [id number] Attend Dr: Herminio Britton MD Re06/17/24 Status: [facility] Location: [facility] Disch: ----- ------- SPEC : [id number] RECD: 06/18/24 STATUS: MARCELINO CHAMBERS NUM: [id number] MILY: 06/17/24-[address] [facility] [address]: Herminio Britton MD ENTERED: 06/18/24-1104 SP TYPE: Pap Smr OTHR DR: SANDRA VIEIRA NP ORDERED: Pap Smear Interpretation Satisfactory for evaluation. Negative for intraepithelial lesion or malignancy. No endocervical cells seen. HPV High Risk: Negative HPV Genotyping 16: Negative HPV Genotyping 18: Negative Clinical Information LMP: Postmenopausal Previous PAP test: Unknown date/findings Material Received ThinPrep-Cervical Copies To: SANDRA VIEIRA NP [address] [place], [place] [phone] Herminio Britton MD [facility] [address] [place] [address] [address] [place] [address] ----- ------- Signed (signature on file) AVELINO Romero (ASCP) 06/20/24 0928 ----- ------- END OF REPORT us Generic External Data Provider LAB CYTOLOGY ORDE RABLES Final Result Performing Organization Address [facility] Co de Phone Number [facility] [address] [place] [phone] * HPV mRNA E6/E7 w/Reflex to HPV Genotypes 16, 18/45 (06/17/2024 12:00 AM EST) Historical Provider MD LAB CYTOLOGY ORDERABLES F inal Result Performing Organization Address [facility] Co de Phone Number [facility] [address] [place] [address] [phone] * HIV-1/2 Antigen and Antibodies, Fourth Generation, with Reflexes (03/24/2024 3:20 PM EDT) HIV AB/AG Nonreactive Nonreactive [facility] Comment:HIV-1 p24 Ag and/or HIV-1/HIV-2 Ab not detected.A test result that is nonreactive does not exclude thepossibility of exposure to or infection with HIV-1 and/orHIV-2. Nonreactive results in this assay for individualswith prior exposure to HIV-1 and/or HIV-2 may be due toantigen and antibody levels that are below the limit ofdetection of this assay.The QR Wild[employer]ity HIV Ag/Ab Combo assay result andsupplemental assay results should be interpreted inconjunction with the patient's clinical presentation,history and other laboratory results. If the results areinconsistent with clinical evidence, additional testing issuggested to confirm the result. 03/24/2024 3:20 PM EDT 03/24/2024 3:20 PM EDT [facility] External Data Provider LAB BLOOD ORDERAB LES Final Result Performing Organization Address [facility] Co de Phone Number [facility] [address] [place] [phone] * (ABNORMAL) Albumin, Random Urine W/Creatinine (05/01/2023 11:30 AM EDT) Creatinine, Urine 302.38 mg/dL [facility] Microalbumin Urine 107.0 mg/L [facility] Microalbum Creatinine Ratio Ur 35.3(H) <30 ug/mg cr [facility] Comment:Albumin/Creatinine R atio Reference Ranges: Normal: < 30 ug/mg creatinine Microalbuminuria: 30 - 300 ug/mg creatinineClinical Albuminuria: > 300 ug/mg creatinine Urine (Urine, Random) 05/01/2023 11:30 AM EDT 05/01/2023 1:17 PM EDT us [facility] LAB URINE ORDERABLES Final Resul t Performing Organization Address [facility] Co de Phone Number [facility] [address] [place] [phone] * (ABNORMAL) Lipid Panel, Standard (05/01/2023 11:30 AM EDT) Triglycerides 189(H) <150 mg/dL [facility] Comment:Desirable Triglyceri de: less than 150 mg/dLBorderline High Triglyceride 150-199 mg/dLHigh Triglyceride: 200-499 mg/dLVery High Triglyceride: greater than or equal to 5OO mg/dL Cholesterol 188 <200 mg/dL [facility] Comment:Desirable Cholestero l: less than 200 mg/dLBorderline High Cholesterol: 200-239 mg/dLHigh Cholesterol: greater than 239 mg/dL LDL Cholesterol Calculated 98 <100 mg/dL [facility] Comment:Desirable LDL: less than 100 mg/dLNear Optimal/Above Optimal LDL: 110- 129 mg/dLBorderline High LDL: 130-159 mg/dLHigh LDL: 160-189 mg/dLVery High LDL: greater than or equal to 190 mg/dL HDL Cholesterol 53 >40 mg/dL [facility] Comment:Desirable HDL: great er than 40 mg/dL Note: This HDL assay may give artificially low results in patients with liver disease. Blood Venous blood specimen / Unknown 05/01/2023 11:30 AM EDT 05/01/2023 1:23 PM EDT Critical access hospital LAB BLOOD ORDERABLES Final Resul t [facility] [address] [place] [address] [phone] from Last 3 Months or Most Recently Relevant to Health Maintenance [facility] Care Teams Bit Sharpener Operator Relationship Specialty Start Date End Date Sandra Vieira ANP [address] [place] [address] PCP - General Family Medicine 09/03/20 April Michele MD [address] [facility] [address] [place] [address] Referring Physician Infectious Diseases 10/09/24 Lee Hubbard MD [address] [place] [address] Urology 10/09/24 Rajni García, RN [address] [place] [address] Registered Nurse Family Medicine 05/13/25 La Haddad 05/13/25 [facility] cardiology 11/12/23
--- OUTSIDE RECORDS SUMMARY | 2025-06-09 06:18 | XMS_ITS | Encounter Summary ---
Author Organization [employer] Address [address] [facility] 7t [place] [address] Care Team Providers Care Gynaecological Oncologist Name Role Phone Irene Wanda HARO Primary Care Provider [phone] Rajni García RN Unavailable [phone] April Michele MD Unavailable [phone] Lee Hubbard MD Unavailable [phone] Rajni García RN Unavailable La Haddad Unavailable Reason for Visit * Reason Comments Med Refill Encounter Details Date Type Department Care Team (Late st Contact Info) Description 12/03/2023 Telephone [facility] MEDICINE [address] [place], [place] [phone] Shelli Vo MD [address] [place], [place] [phone] Med Refill Social History Tobacco Use Types [...] the past 12 months, has t he [email or web address] gas, oil or water company threatened to [...] Description 07/02/2025 1:00 PM EST Office Visit [facility] MEDICINE [address] [place] [address] Wanda Bonilla, TAHIR [address] [place] [address] 09/08/2025 1:30 PM EST Office Visit [facility] OPTOMETRY [address] [place] [address] Smiley Scott, JUDITH [address] [place] [address] documented as of this encounter Visit Diagnoses Diagnosis Asthma, unspecified asthma severity, unspecified whether complicated, unspecified whether persistent documented in this encounter Additional Health Concerns Assessment Noted Time PHQ-9 Depression Total Score: 5 11/23/19 24 1:33 PM EDT documented as of this encounter Care Teams Gynaecological Oncologist Relationship Specialty Start Date End Date Wanda Bonilla ANP [address] [place] [address] PCP - General Family Medicine 09/03/20 Rajni García, RN [address] [place] [address] Alternative Medicine PractitionerRake Operator 09/18/24 12/15/24 April Michele MD [address] [facility] [address] [place] [address] Referring Physician Infectious Diseases 10/09/24 Lee Hubbard MD [address] [place] [address] Urology 10/09/24 Rajni García, TIM [address] [place] [address] Registered Nurse Family Medicine 05/13/25 La Haddad 05/13/25 [facility] cardiology 11/12/23 documented as of this encounter
== END 2025-06-09 06:15 | disposition home or self-care (01) ==
LOC: CF 06:14
PROVIDERS: Visit Provider Anesthesiology
DX: Z13.89 Encounter for screening for other disorder (principal)
CPT/HCPCS: J2003; J2795; Q9967

== ENCOUNTER 2025-06-11 09:27 | Emergency (ER) | payer MEDICAID, SELFPAY ==
--- NOTE | ~2025-06-11 | XR_ITS ---
EXAMINATION: XR CHEST CLINICAL INFORMATION: chest [pain COMPARISON: September 01, 2024. TECHNIQUE: Frontal view of the chest was obtained. FINDINGS: Hyperinflated lungs. Mild pulmonary reticular pattern. No consolidation, pleural effusion or pneumothorax. Cardiomediastinal silhouette size is normal. Multilevel thoracolumbar spondylosis, mild to moderate. S-shaped curvature of the thoracic spine. Vascular clips right upper quadrant abdomen likely cholecystectomy. Degenerative changes in the greater tuberosity right humerus. XR/XR chest 1V IMPRESSION: Probable chronic interstitial lung disease without acute airspace disease. Mild multilevel spondylosis and scoliosis. Electronically signed by: Kevin Crook MD 06/11/2025 11:04 AM DOTTIE
--- NOTE | 2025-06-11 09:30 | ECG_ITS ---
Test Reason : chest pain Blood Pressure : */* mmHG Vent. Rate : 52 BPM Atrial Rate : 52 BPM P-R Int : 146 ms QRS Dur : 92 ms QT Int : 444 ms P-R-T Axes : 24 -35 128 degrees QTcB Int : 412 ms Sinus bradycardia Left axis deviation Left ventricular hypertrophy with repolarization abnormality ( R in aVL , Stanley product , Romhilt-Putnam ) Cannot rule out Septal infarct (cited on or before 08-Jun-2024) Abnormal ECG When compared with ECG of 01-Sep-2024 13:44, Vent. rate has decreased by 32 bpm Serial changes of Septal infarct Present Referred By: Generic ED Physician Electronically Signed By: MAN HARGROVE MD
[2025-06-11 09:36] VITALS: BP 198/84; PULSE 57; RESP 18; TEMP 36.7; O2SAT 98; BMI 29.8
[2025-06-11 10:07] LABS: MANUAL DIFF FLAG NO
[2025-06-11 10:10] LABS: Appearance Urine Clear; Glucose Urine UA Negative (Negative); Hematocrit 35.5 % (37.0-47.0); Hemoglobin 12.2 g/dl (12.0-16.0); Imm Gran Abs Auto 0.01 X10*3/uL (0.00-0.03); Imm Gran Pct Auto 0.3 % (0.0-0.4); Lymphocytes Absolute Auto 1.0 X10*3/uL (1.2-4.9); Mean Corpuscular HGB Conc 34.4 g/dl (31.0-35.0); Mean Corpuscular Hemoglobin 29.5 pg (27.0-33.0); Mean Corpuscular Volume 86.0 fL (80.0-98.0); NRBC Abs Auto 0.000 X10*3/uL (0.0-0.012); NRBC Pct Auto 0.0 /100WBC (0.0-0.2); PH 6.0 (5.0-9.0); Platelet Count 101 X10*3/uL (160-400); Red Blood Count 4.13 X10*6/uL (4.20-5.50); Specific Gravity - Urine 1.020 (1.005-1.025); White Blood Count 3.8 X10*3/uL (4.8-10.8)
[2025-06-11 10:27] LABS: Alanine Aminotransferase 46 U/L (0-31); Albumin Level 4.1 g/dL (3.5-5.0); Alkaline Phosphatase 139 U/L (39-117); Anion Gap 12 (12-20); Aspartate Amino Transferase 39 U/L (5-31); Blood Urea Nitrogen 12 mg/dL (9-16); Calcium 9.3 mg/dL (8.4-10.2); Carbon Dioxide 24 mmol/L (22-29); Chloride 111 mmol/L (96-108); Creatinine Clr Calc Pharmacy 67.1; Estimated Glomerular Filt Rate > 60; Lipase 22 U/L (8-78); Magnesium 1.9 mg/dL (1.6-2.6); Potassium 3.8 mmol/L (3.3-5.1); Sodium 143 mmol/L (135-145); Total Protein 7.3 g/dL (6.5-8.0)
--- NOTE | 2025-06-11 10:30 | ED.CHESTPAIN ---
HPI - Chest Pain General Chief Complaint: Chest Pain Stated Complaint: chest pain into l arm Time Seen by Provider: 06/11/25 10:10 Source: patient Mode of arrival: ambulatory Limitations: no limitations History of Present Illness HPI narrative: this is a 61 years old female patient with multiple medical problems which include diabetes, arthritis, coronary artery disease, peripheral vascular disease chronic pain syndrome followed by the pain clinic presented to the emergency department complaining of right chest wall pain radiating down to the arm. She has been having the symptoms for at least 2 years now the getting worse. The chest pain is not exertional no diaphoresis MD complaint: chest pain Pertinent past history: coronary artery disease Onset (ago): year(s) Timing of current episode: constant Prior episodes: Yes Onset: during rest Pain location: right chest Severity: moderate Quality: aching Relieving factors: nothing Exacerbating factors: nothing Risk Factors Coronary artery disease risk factors: diabetes Related Data Home Medications ?Medication ?Instructions ?Recorded ?Confirmed gabapentin 300 mg capsule 300 mg PO BID 07/28/20 05/20/25 cholecalciferol (vitamin D3) 25 25 mcg PO QAM 10/12/22 05/20/25 mcg (1,000 unit) capsule (Vitamin D3) insulin lispro 100 unit/mL 20 unit subcut TID 10/12/22 05/20/25 subcutaneous pen pen needle, diabetic 31 gauge x #1,200 ea 10/12/22 05/20/2512/12 (UltiCare Pen Needle) pioglitazone 15 mg tablet 15 mg PO QAM 10/12/22 05/20/25 quetiapine 25 mg tablet 25 mg PO BID PRN Sleep 05/05/23 05/20/25 albuterol sulfate 2.5 mg/3 mL 2.5 mg inhalation Q4H PRN sob 09/10/23 05/20/25 (0.083 %) solution for nebulization aspirin 81 mg tablet,delayed 81 mg PO QPM 09/24/23 05/20/25 release semaglutide 0.25 mg or 0.5 mg (2 0.5 mg subcut MO 09/24/23 05/20/25 mg/3 mL) subcutaneous pen injector (Ozempic) amlodipine 10 mg tablet 10 mg PO QAM 11/12/23 05/20/25 insulin glargine 100 unit/mL (3 60 unit subcut BEDTIME 11/12/23 05/20/25 mL) subcutaneous pen (Lantus Solostar U-100 Insulin) lisinopril 40 mg tablet 40 mg PO QPM 11/12/23 05/20/25 quetiapine 100 mg tablet 150 mg PO BEDTIME 11/12/23 05/20/25 ropinirole 0.5 mg tablet 0.5 mg PO BEDTIME 11/12/23 05/20/25 rosuvastatin 5 mg tablet 5 mg PO BEDTIME 11/12/23 05/20/25 famotidine 20 mg tablet 20 mg PO TID 11/13/23 05/20/25 sennosides 8.6 mg-docusate sodium 2 cap PO BEDTIME PRN Constipation 11/13/23 05/20/25 50 mg capsule (Senna Plus) trazodone 150 mg tablet 150 mg PO BEDTIME PRN Sleep 11/13/23 05/20/25 carvedilol 6.25 mg tablet 6.25 mg PO 12/21/23 05/20/25 fluticasone propionate 110 2 puff inhalation Q12H asthma/copd 05/20/25 05/20/25 mcg/actuation HFA aerosol inhaler Previous Rx's ?Medication ?Instructions ?Recorded polyethylene glycol 3350 17 17 g PO DAILY 1 day #238 grams 02/07/24 gram/dose oral powder (Miralax) cyclobenzaprine 10 mg tablet 10 mg PO TID PRN muscle spasm #15 06/08/24 tabs loratadine 10 mg tablet (Claritin) 10 mg PO DAILY #30 tabs 06/08/24 sofosbuvir 400 mg-velpatasvir 100 1 tab PO DAILY 12 weeks #84 tabs 07/28/24 mg tablet (Epclusa) naproxen 500 mg tablet 500 mg PO BID pain #40 tabs 12/25/24 tamsulosin 0.4 mg capsule (Flomax) 0.4 mg PO BEDTIME to help pass 12/25/24 kidney stones #20 caps oxycodone 5 mg tablet 5 mg PO Q8H PRN pain (scale score 01/19/25 7-10) 3 days #9 tabs pyridoxine (vitamin B6) 100 mg 100 mg PO QAM #90 tabs 02/11/25 tablet lidocaine 5 % topical patch 2 patch topical DAILY PRN Pain #30 04/23/25 ea cefuroxime axetil 250 mg tablet 500 mg (2 x 250 mg) PO BID 7 days 05/12/25 #28 tabs fluconazole 150 mg tablet 150 mg PO Q3D 2 doses #2 tabs 05/12/25 ibuprofen 200 mg tablet 400 mg (2 x 200 mg) PO Q8H PRN 05/12/25 pain #14 tabs albuterol sulfate 90 mcg/actuation 2 puff inhalation Q4-6H PRN 05/20/25 aerosol inhaler (Ventolin HFA) shortness of breath or wheezing 30 days #8.5 grams fluticasone propionate 110 2 puff inhalation BID asthma/copd 05/20/25 mcg/actuation HFA aerosol inhaler 30 days #12 grams fluticasone furoate 100 1 inh inhalation DAILY Asthma 30 05/21/25 mcg/actuation blister powder for days #30 ea inhalation (Arnuity Ellipta) oxycodone 5 mg tablet 5 mg PO Q6H PRN pain #15 tabs 06/11/25 Allergies Allergy/AdvReac Type Severity Reaction Status Date / Time morphine AdvReac Abdominal Verified 06/11/25 09:38 Pain Review of Systems Review of Systems: Yes all other systems are reviewed and are negative PMFSH Past Medical History Medical History Bilateral hand pain Disc disease, degenerative, cervical Neuropathy Somnolence, daytime Flank pain RUQ abdominal pain Left foot pain COVID-19 Hepatitis C Rheumatoid arthritis Flank pain Renal stones Bipolar disorder Panic disorder Depression Anxiety Abdominal distension (gaseous) Asthma Hyperlipidemia 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 Mother Diabetes mellitus Sister Diabetes mellitus Brother No problems noted. Paternal Uncle Colon cancer Social History Social History Household Members: None Housing: Apartment Do you presently have visiting nurse or other home services: Yes Alcohol intake: current Alcohol intake frequency: former alcohol drinker Alcohol type: beer Patient Tobacco Use Status: Former Tobacco user Tobacco use type: Cigarette Cigarettes Per Day: 2 Years Smoked: 15 Advance Directives: No Advance Directives Information Provided: No service: No Physical Exam Exam: Exam: on examination she looks well she is not toxic-appearing Vital Signs: Vital Signs: Last Vital Signs Temp 98 F 06/11/25 11:56 Pulse 48 L 06/11/25 11:56 Resp 16 06/11/25 11:56 BP 168/79 H 06/11/25 11:56 Pulse Ox 96 06/11/25 11:56 O2 Del Method Room Air 06/11/25 11:56 BMI result Body Mass Index 29.8 vital signs were reviewed normal Const: General: cooperative Nutritional Appearance: well nourished Orientation/consciousness: patient oriented x3 HEENT: Head: Yes normal to inspection Ears: hearing grossly normal bilaterally General nose exam: Normal external nose present Face and sinus: Yes normal facial exam Mouth: Normal oral and palatal mucosa present Throat: Yes posterior oropharynx normal Neck: Neck: Yes normal visual inspection Chest: Chest palpation & inspection: normal inspection of the chest Resp: Effort & Inspection: normal respiratory effort Auscultation: clear to auscultation bilaterally Cardio: Jugular venous distension: no JVD Rate: regular rate Rhythm: regular rhythm GI: Inspection: Yes normal to inspection Skin: General skin exam: no rashes or lesions noted and elasticity normal Lesions: no lesions Rashes: no rashes Neuro: General: patient oriented x3 Cranial nerves: Yes CN's II-XII intact bilaterally Extrem: General: Yes normal to inspection and Yes full ROM Right upper extremity: normal to inspection Right lower extremity: normal to inspection Course Course Course Narrative: patient is here with chest pain radiated to the right arm we take labs EKG chest x-ray Reevaluation(s) Reevaluation #1: workup completed delta trop is flat pain is clearly musculoskeletal I think she can be discharged home she is comfortable with the plan Time: 14:56 Medical Decision Making Medical Decision Making [facility] Narrative: patient is here with a right chest pain radiating to the arm we will obtain labs electrocardiogram and chest x-ray 14:56 delta trop is flat, pain is clearly musculoskeletal atypical feature ongoing for long time I think she can be discharged home and follow-up with the PCP she is comfortable with the plan of care Differential Diagnosis Differential Diagnoses: The differential diagnosis associated with the presentation includes musculoskeletal pain/ acute coronary syndrome/ chest wall pain Admission/Observation Consideration of admission/observation: Escalation of care including admission/observation considered Lab Data MDM Lab Attestation statement: I reviewed the patient's lab results. 06/11/25 09:56 06/11/25 09:56 Labs: Lab Results 06/11/25 06/11/25 Range/Units 09:56 13:28 WBC 3.8 L (4.8-10.8) X10*3/uL RBC 4.13 L (4.20-5.50) X10*6/uL Hgb 12.2 (12.0-16.0) g/dl Hct 35.5 L (37.0-47.0) % MCV 86.0 (80.0-98.0) fL MCH 29.5 (27.0-33.0) pg MCHC 34.4 (31.0-35.0) g/dl RDW 12.7 (11.0-16.0) % Plt Count 101 L (160-400) X10*3/uL MPV 9.9 (9.4-12.3) fL Immature Gran % (Auto) 0.3 (0.0-0.4) % Neut % (Auto) 61.1 (45-73) % Lymph % (Auto) 26.0 (20-40) % [place] % (Auto) 10.7 (2-11) % Eos % (Auto) 1.6 (0-4) % Baso % (Auto) 0.3 (0-2) % Lymph # (Auto) 1.0 L (1.2-4.9) X10*3/uL [place] # (Auto) 0.4 (0.1-1.2) X10*3/uL Eos # (Auto) 0.1 (0.0-0.4) X10*3/uL Baso # (Auto) 0.0 (0.0-0.2) X10*3/uL Abs Immat Gran (auto) 0.01 (0.00-0.03) X10*3/uL Absolute Neuts (auto) 2.4 (2.0-8.3) x10*3/uL Absolute Nucleated RBC 0.000 (0.0-0.012) X10*3/uL Nucleated RBC % (auto) 0.0 (0.0-0.2) /100WBC Sodium 143 (135-145) mmol/L Potassium 3.8 (3.3-5.1) mmol/L Chloride 111 H (96-108) mmol/L Carbon Dioxide 24 (22-29) mmol/L Anion Gap 12 (12-20) BUN 12 (9-16) mg/dL Creatinine 0.85 (0.5-1.4) mg/dL Estim Creat Clear Calc 67.1 Estimated GFR > 60 Random Glucose 111 (60-115) mg/dL Calcium 9.3 (8.4-10.2) mg/dL Magnesium 1.9 (1.6-2.6) mg/dL Total Bilirubin 0.4 (0.0-1.0) mg/dL Direct Bilirubin 0.1 (0.0-0.5) mg/dL AST 39 H (5-31) U/L ALT 46 H (0-31) U/L Alkaline Phosphatase 139 H (39-117) U/L Troponin I High Sens 118.4 H* 117.2 H* (<3.5-17.0) ng/L Total Protein 7.3 (6.5-8.0) g/dL Albumin 4.1 (3.5-5.0) g/dL Lipase 22 (8-78) U/L Urine Color Yellow Urine Appearance Clear Urine pH 6.0 (5.0-9.0) Ur Specific [place] 1.020 (1.005-1.025) Urine Protein Trace (Neg-Trace) mg/dL Urine Glucose (UA) Negative (Negative) mg/dL Urine Ketones Negative (Negative) mg/dL Urine Blood Negative (Negative) Urine Nitrite Negative (Negative) Ur Leukocyte Esterase Negative (Negative) Independent Interpretation I performed an independent interpretation of an: EKG Interpretation: normal sinus rhythm rate [address]-T changes LVH with strain Prescription Management I considered prescription management with: Pain Medication Chronic Conditions Patient?s care impacted by: Diabetes Discharge Plan Discharge Clinical Impression: Chest pain Qualifiers: Chest pain type: unspecified Qualified Code(s): R07.9 - Chest pain, unspecified Patient Disposition: Home, Self-Care Instructions: Chest Pain (DC) Additional Instructions: please follow-up with your primary care physician return to the emergency room if you worse Prescriptions: New oxycodone 5 mg tablet 5 mg PO Q6H PRN (Reason: pain) Qty: 15 0RF Rx Instructions: partial filing upon pt request; Partial Fill upon patient request. No Action polyethylene glycol 3350 [Miralax] 17 gram/dose powder 17 g PO DAILY 1 Days Qty: 238 0RF Rx Instructions: Mix Miralax with 64 oz(8 cups) of Crystal light. Take 2 tablets of Dulcolax qt 12 pm. Wait to have your 1st bowel movement, then begin drinking Miralax. Drink a glass of Miralax every 10-15 minutes until you are finished. You will drink at least another 4 cups of clear liquid of your choice over the next 2 hours. Please drink as many clear liquids as possible You may have clear liquids up to four hours before your procedure sofosbuvir-velpatasvir [Epclusa] 400-100 mg tablet 1 tab PO DAILY 84 Days Qty: 84 0RF pyridoxine (vitamin B6) 100 mg tablet 100 mg PO QAM Qty: 90 3RF lidocaine 5 % adhesive patch,medicated 2 patch topical DAILY PRN (Reason: Pain) Qty: 30 3RF fluticasone furoate [Arnuity Ellipta] 100 mcg/actuation blister with device 1 inh inhalation DAILY 30 Days Qty: 30 5RF quetiapine 25 mg tablet 25 mg PO BID PRN (Reason: Sleep) insulin glargine [Lantus Solostar U-100 Insulin] 100 unit/mL (3 mL) insulin pen 60 unit subcut BEDTIME quetiapine 100 mg tablet 150 mg PO BEDTIME lisinopril 40 mg tablet 40 mg PO QPM amlodipine 10 mg tablet 10 mg PO QAM ropinirole 0.5 mg tablet 0.5 mg PO BEDTIME rosuvastatin 5 mg tablet 5 mg PO BEDTIME famotidine 20 mg tablet 20 mg PO TID Senna Plus 8.6-50 mg capsule 2 cap PO BEDTIME PRN (Reason: Constipation) trazodone 150 mg Tablet 150 mg PO BEDTIME PRN (Reason: Sleep) oxycodone 5 mg tablet 5 mg PO Q8H PRN (Reason: pain (scale score 7-10)) 3 Days Qty: 9 0RF Rx Instructions: Partial Fill upon patient request. loratadine [Claritin] 10 mg tablet 10 mg PO DAILY Qty: 30 0RF cyclobenzaprine 10 mg tablet 10 mg PO TID PRN (Reason: muscle spasm) Qty: 15 0RF cefuroxime axetil 250 mg tablet 500 mg PO BID 7 Days Qty: 28 0RF fluconazole 150 mg tablet 150 mg PO Q3D Qty: 2 0RF ibuprofen 200 mg tablet 400 mg PO Q8H PRN (Reason: pain) Qty: 14 0RF gabapentin 300 mg capsule 300 mg PO BID (DME) pen needle, diabetic [UltiCare Pen Needle] 31 gauge x 5/16 needle See Rx Instructions .ROUTE QID Qty: 1200 Rx Instructions: As directed insulin lispro 100 unit/mL insulin pen 20 unit subcut TID pioglitazone 15 mg tablet 15 mg PO QAM cholecalciferol (vitamin D3) [Vitamin D3] 25 mcg (1,000 unit) capsule 25 mcg PO QAM albuterol sulfate 2.5 mg /3 mL (0.083 %) solution for nebulization 2.5 mg inhalation Q4H PRN (Reason: sob) carvedilol 6.25 mg tablet 6.25 mg PO tamsulosin [Flomax] 0.4 mg capsule 0.4 mg PO BEDTIME Qty: 20 0RF naproxen 500 mg tablet 500 mg PO BID Qty: 40 0RF fluticasone propionate 110 mcg/actuation HFA aerosol inhaler 2 puff INHALATION Q12H albuterol sulfate [Ventolin HFA] 90 mcg/actuation HFA aerosol inhaler 2 puff inhalation Q4-6H PRN (Reason: shortness of breath or wheezing) 30 Days Qty: 8.5 5RF fluticasone propionate 110 mcg/actuation HFA aerosol inhaler 2 puff inhalation BID 30 Days Qty: 12 5RF Rx Instructions: administer with spacer Ozempic 0.25 mg or 0.5 mg (2 mg/3 mL) pen injector 0.5 mg subcut MO aspirin 81 mg tablet,delayed release (DR/EC) 81 mg PO QPM Referrals: Wanda Bonilla INFORMATION RECEPTIONIST [Primary Care Provider, Internal Medicine] - 06/12/25 Print Language: Macanese
[2025-06-11 10:45] LABS: Troponin-I High Sensitivity 118.4 ng/L (<3.5-17.0)
--- OUTSIDE RECORDS SUMMARY | 2025-06-11 11:23 | XMS_ITS | Encounter Summary ---
Author Organization [email or web address] Address [address] [facility] [address] [place] [address] Care Team Providers Care Mail Processing Clerk Name Role Phone Wanda Bonilla Primary Care Provider [phone] Rajni García RN Unavailable [phone] April Michele MD Unavailable Lee Hubbard MD Unavailable [phone] Rajni García RN Unavailable [phone] La Haddad Unavailable Reason for Visit * Reason Onset Date Comments Med Refill 08/28/2023 Encounter Details Date Type Department Care Team (Late st Contact Info) Description 08/28/2023 Telephone [facility] MEDICINE [address] [place], [place] [phone] Wanda Bonilla ANP [address] [place], [place] [phone] Med Refill Social History Tobacco Use Types [...] MG/1.5ML solution pen-injector To be sent to: [facility] documented in this encounter Plan of Treatment Upcoming Encounters Date Type Department Care Team (Late st Contact Info) Description 07/02/2025 1:00 PM EST Office Visit [facility] MEDICINE [address] [place], [place] [phone] Wanda Bonilla ANP [address] [place] [address] 09/08/2025 1:30 PM EST Office Visit [facility] OPTOMETRY [address] [place] [address] Smiley Scott, OD [address] [place] [address] documented as of this encounter Visit Diagnoses Not on filedocumented in this encounter Additional Health Concerns Assessment Noted Time PHQ-9 Depression Total Score: 0 08/25/19 23 1:48 PM EST documented as of this encounter Care Teams Mail Processing Clerk Relationship Specialty Start Date End Date Wanda Bonilla ANP [address] [place] [address] PCP - General Family Medicine 09/03/20 Rajni García, TIM [address] [place] [address] Supervisor Shipping RoomPoly Packer And Heat Sealer 09/18/24 12/15/24 April Michele MD [address] [facility] [address] [place] [address] Referring Physician Infectious Diseases 10/09/24 Lee Hubbard MD [address] [place] [address] Urology 10/09/24 Rajni García, RN [address] [place] [address] Registered Nurse Family Medicine 05/13/25 La Haddad 05/13/25 [facility] cardiology 11/12/23 documented as of this encounter
--- OUTSIDE RECORDS SUMMARY | 2025-06-11 11:23 | XMS_ITS | Encounter Summary ---
Author Organization [employer] Address [address] [place] [address] 7t [place] [address] Care Team Providers Care Junior Sales Representative Name Role Phone Wanda Bonilla Primary Care Provider Rajni García RN Unavailable [phone] April Michele MD Unavailable [phone] Lee Hubbard MD Unavailable Rajni García RN Unavailable [phone] La Haddad Unavailable Reason for Visit * Reason Onset Date Comments Referral 08/30/2022 Encounter Details Date Type Department Care Team (Late st Contact Info) Description 08/30/2022 Telephone [facility] MEDICINE [address] [place], [place] [phone] Wanda Bnoilla ANP [address] [place], [place] [phone] Referral Social History Tobacco Use Types Packs/Day [...] see a neurologist Please contact pt at [phone] documented in this encounter Plan of Treatment Upcoming Encounters Date Type Department Care Team (Late st Contact Info) Description 07/02/2025 1:00 PM EST Office Visit [facility] MEDICINE [address] [place] [address] Wanda Bonilla ANP [address] [place] [address] 09/08/2025 1:30 PM EST Office Visit [facility] OPTOMETRY [address] [place] [address] Tyler, Smiley, OD [address] [place] [address] documented as of this encounter Visit Diagnoses Not on filedocumented in this encounter Additional Health Concerns Assessment Noted Time PHQ-9 Depression Total Score: 0 08/25/19 23 1:48 PM EST documented as of this encounter Care Teams Junior Sales Representative Relationship Specialty Start Date End Date Wanda Bonilla ANP [address] [place] [address] PCP - General Family Medicine 09/03/20 Rajni García, TIM [address] [place] [address] Collections DirectorQuality Management Nurse 09/18/24 12/15/24 April Michele MD [address] [address] Referring Physician Infectious Diseases 10/09/24 Lee Hubbard MD [address] [place] [address] Urology 10/09/24 Rajni García RN [address] [place] [address] Registered Nurse Family Medicine 05/13/25 La Haddad 05/13/25 [facility] cardiology 11/12/23 documented as of this encounter
--- OUTSIDE RECORDS SUMMARY | 2025-06-11 11:23 | XMS_ITS | Encounter Summary ---
Author Organization [employer] Address [address] [facility] [address] [place] [address] Care Team Providers Care Fitness Centre Manager Name Role Phone Wanda Bonilla Primary Care Provider [phone] Rajni García RN Unavailable [phone] April Michele MD Unavailable [phone] Lee Hubbard MD Unavailable [phone] Rajni García RN Unavailable [phone] La Haddad Unavailable Encounter Details Date Type Department Care Team (Late st Contact Info) Description 08/28/2023 Orders Only [facility] [address] [place], [place] [phone] Wanda Bonilla ANP [address] [place], [place] [id number] Social History Tobacco Use Types Packs/Day Years [...] Description 07/02/2025 1:00 PM EST Office Visit [facility] [address] [place] [address] Wanda Bonilla ANP [address] [place] [address] 09/08/2025 1:30 PM EST Office Visit [facility] [address] [place] [address] Tyler, Smiley, OD [address] [place] [address] documented as of this encounter Visit Diagnoses Not on filedocumented in this encounter Additional Health Concerns Assessment Noted Time PHQ-9 Depression Total Score: 0 08/25/19 23 1:48 PM EST documented as of this encounter Care Teams Fitness Centre Manager Relationship Specialty Start Date End Date Wanda Bonilla ANP [address] [place] [address] PCP - General Family Medicine 09/03/20 Rajni García RN [address] [place] [address] Diploma Pharmacy TechnicianSearch Analyst 09/18/24 12/15/24 April Michele MD [address] [facility] [address] [place] [address] Referring Physician Infectious Diseases 10/09/24 Lee Hubbard MD [address] [place] [address] Urology 10/09/24 Rajni García RN [address] [place] [address] Registered Nurse Family Medicine 05/13/25 La Haddad 05/13/25 [facility] cardiology 11/12/23 documented as of this encounter
--- OUTSIDE RECORDS SUMMARY | 2025-06-11 11:24 | XMS_ITS | Clinical Summary ---
Author Organization [employer] Address [address] [place] [address] 7[address] [place] [address] Care Team Providers Care Cotton Wringer Name Role Phone Sandra Vieira Primary Care Provider April Michele MD Unavailable [phone] Lee Hubbard MD Unavailable Rajni García RN Unavailable [phone] La Haddad Unavailable Allergies Active Allergy [...] Active insulin pen needle (Easy Touch Pen [place]) 31G X 8 mm miscIndications: Diabetic polyneuropathy associated with type 2 diabetes mellitus (HCC) USE DIRECTED FOUR TIMES DAILY 100 each 11 025 Active Blood Pressure Monitoring (Omron 3 Series BP Monitor) device Use as directed 1x/d 1 each 025 Active Blood Glucose Monitoring Suppl (Xikota DevicesStyle [place] Lite) w/Device kit Use to test blood [...] while admitted. She did get established with [facility] cardiology. I will request updated notes. [...] opiates) with Tylenol and ibuprofen I called [facility] cardiology clinic and they will call [...] pain 12/07/2023 Overview (12/07/2023): Admitted at [facility] 11/11/-11/14/23 ?NSTEMI Optimize BP, [...] Psychiatrist decreased seroquel. She was referred to [facility] Breast [facility]ist for further eval. History [...] Cirrhosis of liver (CMS/HCC) 07/27/2017 Overview (10/01/2023): [facility] GI D/t HCV (suspect [...] hepatic mass identified. Dystrophia unguium 05/12/2015 Prolactinoma ([facility]/HCC) 05/12/2015 Diabetic polyneuropathy 07/09/2014 Carpal tunnel syndrome [...] Diagnosed Date Resolved Date Bipolar disease in ([facility]) 08/02/202308/02/2023 Breast mass 08/02/2023 08/02/2023 08/02/2023 UTI symptoms 08/02/2023 08/02/2023 08/02/2023 Flank pain 04/24/2023 08/02/2023 Hepatitis C 04/24/2023 08/02/2023 Urinary tract infection 04/24/202310/2023 Chronic hepatitis ([facility]) 04/24/2023 08/02/2023 UTI (urinary tract infection) 03/09/2023 08/02/2023 Assessment & Plan (03/09/2023 2:36 PM EDT): Drink plenty of water Do not hold the urine Insulin dependent type 1 diabetes mellitus 09/24/2018 08/02/2023 Benign neoplasm of pituitary gland ([facility]) 3 08/29/2023 02/10/2025 Encounters Date Type Department Care Team Description 06/11/2025 Orders Only GENERIC EXTERNAL DATA DEPARTMENT Provider, Generic External Data 06/11/2025 Refill [facility] [address] [place] [phone] Sandra Vieira ANP Benign essential HTN 06/09/2025 Patient Outreach [facility] [address] [place] [phone] Sandra Vieira ANP Care Coordination (CM/CHW outreach) 05/25/2025 1:00 PM EDT Office Visit [facility] [address] [place] [phone] Melonie Seth FNP Chronic left shoulder pain (Primary Dx) 05/25/2025 Travel 05/13/2025 Patient Outreach [facility] [address] [place] [address] [phone] Sandra Vieira ANP Care Coordination (CM/CHW outreach) 05/13/2025 Patient Outreach [address] [address] Sandra Vieira ANP Care Coordination (CHW Chart Review) 05/13/2025 Patient Outreach [facility] [address] [place] [address] Sandra Vieira ANP 05/13/2025 Patient Outreach [facility] [address] [place] [address] Sandra Vieira ANP 05/13/2025 Refill [facility] [address] [place] [address] Jose Maria Farnsworth MD Primary hypertension 05/13/2025 Refill [facility] [address] [place] [address] Sandra Vieira ANP Diabetic polyneuropathy associated with type 2 diabetes mellitus (HCC); Primary hypertension 05/12/2025 Orders Only GENERIC EXTERNAL DATA DEPARTMENT Provider, Generic External Data 04/29/2025 Telephone [facility] [address] [place] [phone] Smiley Scott, OD 04/22/2025 Refill [facility] [address] [place] [address] Sandra Vieira ANP 04/20/2025 Telephone [facility] [address] [place] [phone] Smiley Scott, OD 04/20/2025 Telephone [facility] [address] [place] [phone] Sandra Vieira ANP dec recall 04/12/2025 Refill [facility] [address] [place] [phone] Sandra Vieira ANP 04/09/2025 Refill [facility] [address] [place] [address] Sandra Vieira ANP Type 2 diabetes mellitus with hyperglycemia, with long-term current use of insulin (CMS/HCC) 04/02/2025 2:30 PM EDT Office Visit [facility] [address] [place] [phone] Sandra Vieira ANP Tobacco abuse counseling (Primary Dx); Type 2 diabetes mellitus with hyperlipidemia (CMS/HCC) (CMS/HCC) 04/02/2025 Travel 03/20/2025 Refill [facility] [address] [place] [address] Sandra Vieira ANP Diabetic polyneuropathy associated with type 2 diabetes mellitus ([facility]/HCC) 03/19/2025 Orders Only GENERIC EXTERNAL DATA DEPARTMENT Provider, Generic External Data 03/14/2025 Refill [facility] [address] [place] [address] Sandra Vieira ANP Restless legs 03/12/2025 Refill [facility] [address] [place] [address] Sandra Vieira ANP Type 2 diabetes mellitus with hyperlipidemia ([facility]/HCC) ([facility]); Heartburn from Last 3 Months Immunizations Immunization [...] Visit [facility] [address] [place] [address] Sandra Vieira, ANP [address] [place] [address] 09/08/2025 1:30 PM EST Office Visit [facility] [address] [place] [address] Tyler, Smiley, OD [address] [place] [address] Health Maintenance Due Date Last Done Comments CT Colonography 1965 Colonoscopy 1965 Colorectal Cancer Screening 1965 FIT DNA/Cologuard 1965 FIT 1965 FOBT 1965 Sigmoidoscopy 1965 Disability Screening 1965 RSV Patients and Patients Aged 60 years or older (1 - Risk 50-74 years 1-dose series) 2013 Zoster Vaccines (1 of 2) 2013 Pneumococcal Vaccine: 50+ Years (2 of 2 - PCV) 07/09/2015 07/09/2014 Hepatitis A Vaccines (2 of 2 - Risk 2-dose series) 08/28/2020 02/26/2020, 07/08/2009, 07/14/2008 Diabetes: Foot Exam 04/26/2024 04/26/2023, 04/26/2023, 04/26/2023, [...] Tobacco Screening 05/25/2026 05/25/2025 Mammogram 07/03/2026 07/03/2024, 1211/2023, 01/04/2024, Additional history [...] Name Priority Date/Time Associated Diagnosis Comments XR CHEST 1 VIEW Routine 06/11/2025 10:54 AM EST HIGH SENSITIVITY TROPONIN I Routine 06/11/2025 9:56 AM EST URINALYSIS WITH REFLEX MICROSCOPIC Routine 06/11/2025 9:56 AM EST CBC WITH AUTO DIFFERENTIAL Routine 06/11/2025 9:56 AM EST US ABDOMEN LIMITED Routine 05/15/2025 9: 54 [...] Relevant to Health Maintenance Results * XR Chest 1 View (06/11/2025 10:54 AM EST) Anatomical Region Laterality Modality Chest Radiographic Nina ging 06/11/2025 10:5 4 AM EST Narrative 06/11/2025 11:07 AM EST [address] [address] XRay Report Signed Patient: Tank Max MR#: [id number] : 1965 Acct:[id number] Age/Sex: 60 / F ADM Date: 06/11/25 Loc: HO.ED Attending Dr: Ordering Physician: Douglas Greene MD Date of Service: 06/11/25 Procedure(s): XR chest 1V Accession Number(s): [id number] cc: Douglas Greene MD; SANDRA VIEIRA NP Reason for Exam: chest [pain EXAMINATION: XR CHEST CLINICAL INFORMATION: chest [pain COMPARISON: September 01, 2024. TECHNIQUE: Frontal view of the chest was obtained. FINDINGS: Hyperinflated lungs. Mild pulmonary reticular pattern. No consolidation, pleural effusion or pneumothorax. Cardiomediastinal silhouette size is normal. Multilevel thoracolumbar spondylosis, mild to moderate. S-shaped curvature of the thoracic spine. Vascular clips right upper quadrant abdomen likely cholecystectomy. Degenerative changes in the greater tuberosity right humerus. XR/XR chest 1V IMPRESSION: Probable chronic interstitial lung disease without acute airspace disease. Mild multilevel spondylosis and scoliosis. Electronically signed by: Kevin Crook MD 06/11/2025 11:04 AM EST Dictated By: Kevin Villalobos MD Signed By: <Electronically signed by Kevin Smith MD in OV> 06/11/25 110 DD/ 53 TD/TT: 06/11/251056 Lawn And Garden Technician: Procedure Note Donotcherylinterpreter, Image - 06/11/[address] [address] XRay Report Signed Patient: Barrera Max#: [id number] : 1965Acct:[id number] Age/Sex: 60 / FADM Date: 06/11/25 Loc: HO.ED Attending Dr: Ordering Physician: Douglas Greene MD Date of Service: 06/11/25 Procedure(s): XR chest 1V Accession Number(s): [id number] cc: Douglas Greene MD; SANDRA VIEIRA NP Reason for Exam: chest [pain EXAMINATION: XR CHEST CLINICAL INFORMATION: chest [pain COMPARISON: September 01, 2024. TECHNIQUE: Frontal view of the chest was obtained. FINDINGS: Hyperinflated lungs. Mild pulmonary reticular pattern. No consolidation, pleural effusion or pneumothorax. Cardiomediastinal silhouette size is normal. Multilevel thoracolumbar spondylosis, mild to moderate. S-shaped curvature of the thoracic spine. Vascular clips right upper quadrant abdomen likely cholecystectomy. Degenerative changes in the greater tuberosity right humerus. XR/XR chest 1V IMPRESSION: Probable chronic interstitial lung disease without acute airspace disease. Mild multilevel spondylosis and scoliosis. Electronically signed by: Kevin Crook MD 06/11/2025 11:04 AM EST Dictated By: Kevin Villalobos MD Signed By: <Electronically signed by Kevin Smith MDin OV> 06/11/25 110 DD/ 53 TD/TT: 06/11/251056 Lawn And Garden Technician: [facility] External Provider IMG XR PROCEDURES Final Result * (ABNORMAL) High Sensitivity Troponin I (06/11/2025 9:56 AM EST) TROPONIN I HIGH SENSITIVITY 118.4(HH) <3.5 - 17.0 ng/L [facility] Comment:Critical value for t est(s): HS TROP Results called to em back by: NITIN Person calling: FLOYD Date: 06/11/25Time: 1044The [place] high sensitivity Troponin-I results should beused in conjunction with other diagnostic information suchas ECG, clinical observations and information, and patientsymptoms to aid in the diagnosis of GA. 06/11/2025 9:56 AM EST 06/11/2025 10:05 AM EST us Generic External Data Provider LAB BLOOD ORDERAB LES Final Result [facility] [address] [place] [phone] * (ABNORMAL) CBC auto differential (06/11/2025 9:56 AM EST) Only the most recent of2 resultswithin the time period is included. White Blood Count 3.8(L) 4.8 - 10.8 X10*3/uL [facility] Red Blood Count 4.13(L) 4.20 - 5.50 X10*6/uL [facility] Hemoglobin 12.2 12.0 - 16.0 g/dl [facility] Hematocrit 35.5(L) 37.0 - 47.0 % [facility] Mean Corpuscular Volume 86.0 80.0 - 98.0 fL [facility] Mean Corpuscular Hemoglobin 29.5 27.0 - 33.0 pg [facility] Mean Corpuscular HGB Conc 34.4 31.0 - 35.0 g/dl [facility] Red Cell Distribution Width 12.7 11.0 - 16.0 % [facility] Platelet Count 101(L) 160 - 400 X10*3/uL [facility] Mean Platelet Volume 9.9 9.4 - 12.3 fL [facility] Neutrophils Percent Auto 61.1 45 - 73 % [facility] Imm Gran Pct Auto 0.3 0.0 - 0.4 % [facility] Lymphocytes Percent Auto 26.0 20 - 40 % [facility] Monocytes Percent Auto 10.7 2 - 11 % [facility] Eosinophils Percent Auto 1.6 0 - 4 % [facility] Basophils Percent Auto 0.3 0 - 2 % [facility] NRBC Pct Auto 0.0 0.0 - 0.2 /100WBC [facility] Neutrophils Absolute Auto 2.4 2.0 - 8.3 x10*3/uL [facility] Imm Gran Abs Auto 0.01 0.00 - 0.03 X10*3/uL [facility] Lymphocytes Absolute Auto 1.0(L) 1.2 - 4.9 X10*3/uL [facility] Monocytes Absolute Auto 0.4 0.1 - 1.2 X10*3/uL [facility] Eosinophils Absolute Auto 0.1 0.0 - 0.4 X10*3/uL [facility] Basophils Absolute Auto 0.0 0.0 - 0.2 X10*3/uL [facility] NRBC Abs Auto 0.000 0.0 - 0.012 X10*3/uL [facility] 06/11/2025 9:56 AM EST 06/11/2025 10:05 AM EST us Generic External Data Provider LAB BLOOD ORDERAB LES Final Result [facility] [address] [place] [phone] * Urinalysis w/reflex microscopic (06/11/2025 9:56 AM EST) Color Urine Yellow [facility] Appearance Urine Clear [facility] PH 6.0 5.0 - 9.0 [facility] Glucose Urine UA Negative Negative mg/dL [facility] Urine Blood Negative Negative [facility] Specific [place] - Urine 1.020 1.005 - 1.025 [facility] Urine Protein Trace Neg-Trace mg/dL [facility] Urine Ketones Negative Negative mg/dL [facility] Nitrite Urine Negative Negative [facility] Leukocyte Esterase Urine Negative Negative [facility] 06/11/2025 9:56 AM EST 06/11/2025 10:05 AM EST Narrative [facility] - 06/11/2025 10:13 AM EST Urine, Clean Catch us Generic External Data Provider LAB URINE ORDERAB LES Final Result Performing Organization Address City/State/[facility] Co de Phone Number [facility] [address] [place] [phone] * US Abdomen Limited (05/15/2025 9:54 AM EDT) Anatomical Region Laterality Modality Abdomen Ultrasound 05/15/2025 9:54 AM EDT Narrative 05/15/2025 9:56 AM EDT [address] [address] Ultrasound Report Signed Patient: Tank Max MR#: [id number] : 1965 Acct:[id number] Age/Sex: 60 / F ADM Date: 05/14/25 Loc: HO.US Attending Dr: Ashlie Maldonado MD Ordering Physician: Ashlie Maldonado MD Date of Service: 05/14/25 Procedure(s): US abdomen limited Accession Number(s): [id number] cc: Ashlie Maldonado MD; SANDRA VIEIRA NP [...] in OV> 05/15/25954 DD/ 3 TD/TT: 05/15/25953 Lawn And Garden Technician: Procedure Note Donotuseinterpreter, Image - 05/15/[address] [address] Ultrasound Report Signed Patient: Barrera Max#: [id number] : 1965Acct:[id number] Age/Sex: 60 / FADM Date: 05/14/25 Loc: HO.US Attending Dr: Ashlie Maldonado MD Ordering Physician: Ashlie Maldonado MD Date of Service: 05/14/25 Procedure(s): US abdomen limited Accession Number(s): [id number] cc: Ashlie Maldonado MD; SANDRA VIEIRA NP [...] in OV> 05/15/25954 DD/ 3 TD/TT: 05/15/25953 Lawn And Garden Technician: us [facility] External Provider IMG US PROCEDURES Final Result * Lipase (05/12/2025 10:06 AM EDT) Pathologist [facility] Lipase 21 8 - 78 U/L [facility] 05/12/2025 10:0 6 AM EDT 05/12/2025 10:12 AM EDT Generic External Data Provider LAB BLOOD ORDERAB LES Final Result [facility] [address] [place] [address] [phone] * (ABNORMAL) Hepatic Function Panel (05/12/2025 10:06 AM EDT) Pathologist [facility] Bilirubin, Total 0.4 0.0 - 1.0 mg/dL [facility] Bilirubin, Direct 0.2 0.0 - 0.5 mg/dL [facility] Aspartate Amino Transferase 45(H) 5 - 31 U/L [facility] Alanine Aminotransferase 50(H) 0 - 31 U/L [facility] Total Protein 7.3 6.5 - 8.0 g/dL [facility] Albumin Level 4.1 3.5 - 5.0 g/dL [facility] Alkaline Phosphatase 129(H) 39 - 117 U/L [facility] 05/12/2025 10:0 6 AM EDT 05/12/2025 10:12 AM EDT Generic External Data Provider LAB BLOOD ORDERAB LES Final Result Performing Organization Address City/[facility]/ZIP Co de Phone Number [facility] [address], [place] [phone] * (ABNORMAL) Basic Metabolic Panel (05/12/2025 10:06 AM EDT) Pathologist [facility] Sodium 144 135 - 145 mmol/L [facility] Potassium 4.2 3.3 - 5.1 mmol/L [facility] Chloride 111(H) 96 - 108 mmol/L [facility] Carbon Dioxide 25 22 - 29 mmol/L [facility] Anion Gap 12 12 - 20 [facility] Urea Nitrogen (BUN) 13 9 - 16 mg/dL [facility] Creatinine, Serum 0.87 0.5 - 1.4 mg/dL [facility] Creatinine Clr Calc Pharmacy 66.3 [facility] Comment:Provided height and weight: 160.02 cm,78.018 kg.eGFR (calculated from the MDRD study equation) and eCrCl(calculated from the Cockcroft-Gault equation) are based ondifferent parameters and may not yield comparable results.If eCrCl result is absurd, please check patient'sheight/weight. Estimated Glomerular Filt Rate >60 [facility] Comment:Chronic Kidney Disea se: Estimated GFR < 60 mL/min/1.12x4Txlibj Kidney Disease: Estimated GFR < 15 mL/min/1.73m2 Glucose 88 60 - 115 mg/dL [facility] Calcium 9.2 8.4 - 10.2 mg/dL [facility] 05/12/2025 10:0 6 AM EDT 05/12/2025 10:12 AM EDT us Generic External Data Provider LAB BLOOD ORDERAB LES Final Result [facility] [address] [place] [phone] * (ABNORMAL) Urinalysis, Complete, with Reflex to Culture (05/12/2025 10:03 AM EDT) Color Urine Yellow [facility] Appearance Urine Cloudy [facility] PH 6.0 5.0 - 9.0 [facility] Glucose Urine UA Negative Negative mg/dL [facility] Urine Blood Negative Negative [facility] Specific [place] - Urine 1.020 1.005 - 1.025 [facility] Urine Protein Trace Neg-Trace mg/dL [facility] Urine Ketones Negative Negative mg/dL [facility] Nitrite Urine Negative Negative [facility] Leukocyte Esterase Urine Small (1+)(A) Negative [facility] RBC Urine 0-2 0 - 2 /HPF [facility] Urine WBC 0-5 0 - 5 /HPF [facility] Urine Squamous Epithelial Cell >20 0 - 2 /HPF [facility] Urine Bacteria 4+ None Seen [facility] Hyaline Casts, Urine 0-2 0 - 2 /LPF [facility] 05/12/2025 10:0 3 AM EDT 05/12/2025 10:12 AM EDT Narrative [facility] - 05/12/2025 10:28 AM EDT [id number], Clean Catch Generic External Data Provider LAB URINE ORDERAB LES Final Result Performing Organization Address [facility]/ZIP Co de Phone Number [facility] [address] [place] [phone] * Culture, Urine, Routine (05/12/2025 12:00 AM EDT) Urine Urine specimen obtained by clean catch procedure / Unknown 05/12/2025 05/12/2025 Comment:[facility] - 05/13/2025 9:16 AM EDT Urine Culture Report Result Urine Culture < 10,000 cfu/ml Specimen Source: Urine clean catch Generic External Data Provider LAB MICROBIOLOGY - GENERAL ORDERABLES Final Result Performing Organization Address City/[facility]/ZIP Co de Phone Number [facility] [address] [place] [phone] * (ABNORMAL) POCT Hgb A1c (04/02/2025 2:44 PM EDT) Hemoglobin A1C 7.2(A) 4.0 - 5.7 % QC Media Lot # [id number] Lot# Expiration Date ,888,568 Blood 04/02/2025 2:44 PM EDT Sandra Irene ANP POINT OF CARE TEST ENTER/EDIT OR DERABLES Final Result * (ABNORMAL) POCT Glucose (04/02/2025 2:43 PM EDT) [facility] Glucose Blood, POC 218(A) 60 - 200 mg/dL QC Media Lot # [id number] Lot# Expiration Date [id number] Blood Capillary blood specimen / Unknown 04/02/2025 2:43 PM EDT Sandra Irene ANP POINT OF CARE TEST ENTER/EDIT OR DERABLES Final Result * (ABNORMAL) Hepatitis C Viral RNA, Quantitative, Real-Time PCR (03/19/2025 12:13 PM EDT) [facility] Hepatitis C Viral Load 0657807(A ) NOT DETECTED IU/mL [facility] HCV Log PCR 6.20(A) NOT DETECTED Log IU/mL [facility] Comment:For additional infor mation, please refer [email or web address].[employer]/faq/KFM23c8(This link is being provided for informational/educational purposes only.)THIS TEST WAS PERFORMED AT:[employer] [facility] [place] [phone] YO MD 03/19/2025 12:1 3 PM EDT 03/19/2025 12:19 PM EDT Generic External Data Provider LAB BLOOD ORDERAB LES Final Result [facility] [address] [place] [phone] * Alpha-Fetoprotein, Tumor Marker (03/19/2025 12:13 PM EDT) [facility] Alpha Fetoprotein 4.8 ng/mL [facility] Comment:Reference Range: <6. 1The use of AFP as a tumor marker in females is not recommended.This test was performed using the Jeanine Coulterchemiluminescent method. Values obtained fromdifferent assay methods cannot be usedinterchangeably. AFP levels, regardless ofvalue, should not be interpreted as absoluteevidence of the presence or absence of disease.THIS TEST WAS PERFORMED AT:[facility] [place] [id number] YO MD 03/19/2025 12:1 3 PM EDT 03/19/2025 12:19 PM EDT us Generic External Data Provider LAB BLOOD ORDERAB LES Final Result [facility] [address] [place] [phone] * (ABNORMAL) CBC (03/19/2025 12:13 PM EDT) White Blood Count 4.5(L) 4.8 - 10.8 X10*3/uL [facility] Red Blood Count 4.11(L) 4.20 - 5.50 X10*6/uL [facility] Hemoglobin 11.8(L) 12.0 - 16.0 g/dl [facility] Hematocrit 35.6(L) 37.0 - 47.0 % [facility] Mean Corpuscular Volume 86.6 80.0 - 98.0 fL [facility] Mean Corpuscular Hemoglobin 28.7 27.0 - 33.0 pg [facility] Mean Corpuscular HGB Conc 33.1 31.0 - 35.0 g/dl [facility] Red Cell Distribution Width 13.1 11.0 - 16.0 % [facility] Platelet Count 96(L) 160 - 400 X10*3/uL [facility] Mean Platelet Volume 11.1 9.4 - 12.3 fL [facility] NRBC Pct Auto 0.0 0.0 - 0.2 /100WBC [facility] NRBC Abs Auto 0.000 0.0 - 0.012 X10*3/uL [facility] 03/19/2025 12:1 3 PM EDT 03/19/2025 12:19 PM EDT us Generic External Data Provider LAB BLOOD ORDERAB LES Final Result [facility] [address] [place] [phone] * BI Mammogram Screening Tomosynthesis Bilateral (07/03/2024 9:53 AM EST) Anatomical Region Laterality Modality Breast Bilateral Mammography 07/03/2024 9:53 AM EST Narrative 07/09/2024 10:57 AM EST [address] [place] [address] Mammography Report Signed Patient: Tank Max MR#: [id number] : 1965 Acct:[id number] Age/Sex: 59 / F ADM Date: 07/03/24 Loc: HO.MAMMO Attending Dr: Herminio Britton MD Ordering Physician: Herminio Britton MD Results: 1Negativ e Date of Service: 07/03/24 Follow Up: 1 Year From Orig inal Mammogram Procedure(s): MM tomosynthesis screening BI Accession Number(s): [id number] cc: SANDRA VIEIRA NP; Herminio Britton MD [...] Alysa Faith DO 07/09/2024 10:54 AM EST RP Dictated By: Alysa Faith DO Signed By: <Electronically signed by Alysa Faith DO in OV> 07/09/24 1054 DD/ 0953 TD/TT: 07/03/24 1018 Lawn And Garden Technician: Procedure Note Donotuseinterpreter, Image - 07/09/2024 [facility] [address] [place], [place] [address] Mammography Report Signed Patient: Barrera Max#: [id number] : 1965Acct:[id number] Age/Sex: 59 / FADM Date: 07/03/24 Loc: HO.MAMMO Attending Dr: Herminio Britton MD Ordering Physician: Herminio Britton MDResults: 1Negativ e Date of Service: 07/03/24Follow Up: 1 Year From Orig inal Mammogram Procedure(s): MM tomosynthesis screening BI Accession Number(s): [id number] cc: SANDRA VIEIRA POLISHER AND BUFFER; Herminio Britton MD EXAMINATION: MM SCREENING DIGITAL [...] Alysa Faith DO 07/09/2024 10:54 AM EST RP Dictated By: Alysa Faith DO Signed By: <Electronically signed by Alysa Faith DO in OV> 07/09/24 1054 DD/ 0953 TD/TT: 07/03/24 1018 Lawn And Garden Technician: [facility] External Provider IMG BI PROCEDURES Edited Result - Final * Pap Smear (06/17/2024 10:30 AM EST) 06/17/2024 10:3 0 AM EST 06/18/2024 9:15 AM EST Narrative [facility] - 06/20/2024 9:28 AM EST ----- ------- Name: Tank Max Age/Sex: 59/F : 1965 Unit#: [id number] Attend Dr: Herminio Britton MD Re06/17/24 Status: [facility] REF Location: HO.LNP Disch: ----- ------- SPEC : [id number] RECD: 06/18/24 STATUS: MARCELINO CHAMBERS NUM: [id number] MILY: 06/17/24-1030 [facility] DR: Herminio Britton MD ENTERED: 06/18/24-110 SP TYPE: Pap Smr OTHR DR: SANDRA VIEIRA NP ORDERED: Pap Smear Interpretation Satisfactory for evaluation. Negative for intraepithelial lesion or malignancy. No endocervical cells seen. HPV High Risk: Negative HPV Genotyping 16: Negative HPV Genotyping 18: Negative Clinical Information LMP: Postmenopausal Previous PAP test: Unknown date/findings Material Received ThinPrep-Cervical Copies To: SANDRA VIEIRA NP [facility] [address] [place] [address] Herminio Britton MD [facility] [place] Women's Services [address] [place] [address] ----- ------- Signed (signature on file) AVELINO Romero (ASCP) 06/20/24 0928 ----- ------- END OF REPORT Generic External Data Provider LAB CYTOLOGY TAMI MONTALVO Final Result Performing Organization Address [facility] Co de Phone Number [facility] [address] [place] [address] [phone] * HPV mRNA E6/E7 w/Reflex to HPV Genotypes 16, 18/45 (06/17/2024 12:00 AM EST) Historical Provider LAB CYTOLOGY ORDERABLES F inal Result Performing Organization Address [facility]/ZIP Co de Phone Number [facility] [address] [place] [phone] * HIV-1/2 Antigen and Antibodies, Fourth Generation, with Reflexes (03/24/2024 3:20 PM EDT) HIV AB/AG Nonreactive Nonreactive [facility] Comment:HIV-1 p24 Ag and/or HIV-1/HIV-2 Ab not detected.A test result that is nonreactive does not exclude thepossibility of exposure to or infection with HIV-1 and/orHIV-2. Nonreactive results in this assay for individualswith prior exposure to HIV-1 and/or HIV-2 may be due toantigen and antibody levels that are below the limit ofdetection of this assay.The Planet8 HIV Ag/Ab Combo assay result andsupplemental assay results should be interpreted inconjunction with the patient's clinical presentation,history and other laboratory results. If the results areinconsistent with clinical evidence, additional testing issuggested to confirm the result. 03/24/2024 3:20 PM EDT 03/24/2024 3:20 PM EDT [facility] [place] Data Provider LAB BLOOD ORDERAB LES Final Result Performing Organization Address City/[facility]/ZIP Co de Phone Number [facility] [address] [place], [place] [phone] * (ABNORMAL) Albumin, Random Urine W/Creatinine (05/01/2023 11:30 AM EDT) Creatinine, Urine 302.38 mg/dL [facility] Microalbumin Urine 107.0 mg/L [facility] Microalbum Creatinine Ratio Ur 35.3(H) <30 ug/mg cr [facility] Comment:Albumin/Creatinine R atio Reference Ranges: Normal: < 30 ug/mg creatinine Microalbuminuria: 30 - 300 ug/mg creatinineClinical Albuminuria: > 300 ug/mg creatinine Urine (Urine, Random) 05/01/2023 11:30 AM EDT 05/01/2023 1:17 PM EDT [facility] LAB URINE ORDERABLES Final Resul t Performing Organization Address City/[facility] Co de Phone Number [facility] [address] [place] [phone] * (ABNORMAL) Lipid Panel, Standard (05/01/2023 11:30 AM EDT) Triglycerides 189(H) <150 mg/dL [facility] Comment:Desirable Triglyceri de: less than 150 mg/dLBorderline High Triglyceride 150-199 mg/dLHigh Triglyceride: 200-499 mg/dLVery High Triglyceride: greater than or equal to 5OO mg/dL Cholesterol 188 <200 mg/dL [facility] Comment:Desirable Cholestero l: less than 200 mg/dLBorderline High Cholesterol: 200-239 mg/dLHigh Cholesterol: greater than 239 mg/dL LDL Cholesterol Calculated 98 <100 mg/dL [facility] Comment:Desirable LDL: less than 100 mg/dLNear Optimal/Above Optimal LDL: 110- 129 mg/dLBorderline High LDL: 130-159 mg/dLHigh LDL: 160-189 mg/dLVery High LDL: greater than or equal to 190 mg/dL HDL Cholesterol 53 >40 mg/dL [facility] Comment:Desirable HDL: great er than 40 mg/dL Note: This HDL assay may give artificially low results in patients with liver disease. Blood Venous blood specimen / Unknown 05/01/2023 11:30 AM EDT 05/01/2023 1:23 PM EDT [facility] LAB BLOOD ORDERABLES Final Resul t [facility] [address] [place] [phone] from Last 3 Months or Most Recently Relevant to Health Maintenance Insurance [id number] C3 Care Teams Cotton Wringer Relationship Specialty Start Date End Date Sandra Vieira ANP [address] [place] [address] PCP - General Family Medicine 09/03/20 April Michele MD [address] [facility] [address] [place] [address] Referring Physician Infectious Diseases 10/09/24 Lee Hubbard MD [address] [place] [address] Urology 10/09/24 Rajni García, RN 505 [place] [address] Registered Nurse Family Medicine 05/13/25 La Haddad 05/13/25 [facility] cardiology 11/12/23
--- OUTSIDE RECORDS SUMMARY | 2025-06-11 11:24 | XMS_ITS | Encounter Summary ---
Author Organization [employer] Address [address] [place] [address] 7t [place] [address] Care Team Providers Care Washhouse Worker Name Role Phone Irene Wanda HARO Primary Care Provider [phone] Rajni García RN Unavailable [phone] April Michele MD Unavailable [phone] Lee Hubbard MD Unavailable [phone] Rajni García RN Unavailable [phone] La Haddad Unavailable Reason for Visit * Reason Comments Med Refill Encounter Details Date Type Department Care Team (Late st Contact Info) Description 04/03/2023 Refill [facility] MEDICINE [address] [place], [place] [phone] Brenda Lopez MD 230 [place], [place] [phone] Social History Tobacco Use Types Packs/Day Years [...] Description 07/02/2025 1:00 PM EST Office Visit [facility] MEDICINE [address] [place] [address] Wanda Bonilla ANP [address] [place] [address] 09/08/2025 1:30 PM EST Office Visit [facility] OPTOMETRY [address] [place] [address] Smiley Scott, OD [address] [place] [address] documented as of this encounter Visit Diagnoses Not on filedocumented in this encounter Additional Health Concerns Assessment Noted Time PHQ-9 Depression Total Score: 0 08/25/19 23 1:48 PM EST documented as of this encounter Care Teams Washhouse Worker Relationship Specialty Start Date End Date Wanda Bonilla ANP [address] [place] [address] PCP - General Family Medicine 09/03/20 Rajni García RN 505 [place] [address] Class B Truck DriverSteel Welder 09/18/24 12/15/24 April Michele MD [address] [facility] [address] [place] [address] Referring Physician Infectious Diseases 10/09/24 Lee Hubbard MD [address] [place] [address] Urology 10/09/24 Rajni García RN [address] [facility] [place] [address] Registered Nurse Family Medicine 05/13/25 La Haddad 05/13/25 [facility] cardiology 11/12/23 documented as of this encounter
--- OUTSIDE RECORDS SUMMARY | 2025-06-11 11:24 | XMS_ITS | Encounter Summary ---
Author Organization [employer] Address [address] 7t [place] [address] Care Team Providers Care Contracting Manager Name Role Phone Wanda Bonilla Primary Care Provider [phone] Rajni García RN Unavailable [phone] April Michele MD Unavailable [phone] Lee Hubbard MD Unavailable [phone] Rajni García RN Unavailable [phone] La Haddad Unavailable Reason for Visit * Reason Onset Date Comments Results 09/12/2023 Encounter Details Date Type Department Care Team (Late st Contact Info) Description 09/12/2023 Telephone [facility] MEDICINE [address] [place], [place] [phone] Wanda Bonilla ANP 230 [place], [place] [phone] Results Social History Tobacco Use Types Packs/Day [...] (in chart) Date when done: 08/30 Facility: [facility] [place] Type of results: US neck Date when done: sometime last week per pt Facility: [facility] vascular services Please contact pt at [phone] documented in this encounter Plan of Treatment Upcoming Encounters Date Type Department Care Team (Late st Contact Info) Description 07/02/2025 1:00 PM EST Office Visit [facility] MEDICINE [address] [place], [place] [phone] Wanda Bonilla ANP 230 [place] [address] 09/08/2025 1:30 PM EST Office Visit [facility] OPTOMETRY [address] [place], [place] [phone] Smiley Scott, OD 230 [place] [address] documented as of this encounter Visit Diagnoses Not on filedocumented in this encounter Additional Health Concerns Assessment Noted Time PHQ-9 Depression Total Score: 0 08/25/19 23 1:48 PM EST documented as of this encounter Care Teams Contracting Manager Relationship Specialty Start Date End Date Wanda Bonilla ANP [address] [place] [address] PCP - General Family Medicine 09/03/20 Rajni García, TIM [address] [place] [address] Carbon Capture Power Plant EngineerSharepoint Designer Developer 09/18/24 12/15/24 April Michele MD [address] [facility] [address] [place] [address] Referring Physician Infectious Diseases 10/09/24 Lee Hubbard MD [address] [place] [address] Urology 10/09/24 Rajni García, RN [address] [place] [address] Registered Nurse Family Medicine 05/13/25 La Haddad 05/13/25 [facility] cardiology 11/12/23 documented as of this encounter
--- OUTSIDE RECORDS SUMMARY | 2025-06-11 11:24 | XMS_ITS | Encounter Summary ---
Author Organization [employer] Address [address] 7t [place] [address] Care Team Providers Care Mastic Floor Layer Name Role Phone Irene Sandra HARO Primary Care Provider [phone] April Michele MD Unavailable [phone] Lee Hubbard MD Unavailable [phone] Rajni García RN Unavailable [phone] La Haddad Unavailable Encounter Details Date Type Department Care Team ([facility] st Contact Info) Description 06/11/2025 Orders Only GENERIC EXTERNAL DATA DEPARTMENT Provider, Generic External Data Social History Tobacco Use Types Packs/Day Years [...] Description 07/02/2025 1:00 PM EST Office Visit [facility] MEDICINE 230 [place] [address] Sandra Vieira, ANP [address] [place] [address] 09/08/2025 1:30 PM EST Office Visit [facility] OPTOMETRY [address] [place] [address] Smiley Scott, OD 230 [place] [address] documented as of this encounter Procedures Procedure Name Priority Date/Time Associated Diagnosis Comments XR CHEST 1 VIEW Routine 06/11/2025 10:54 AM EST HIGH SENSITIVITY TROPONIN I Routine 06/11/2025 9:56 AM EST CBC WITH AUTO DIFFERENTIAL Routine 06/11/2025 9:56 AM EST URINALYSIS WITH REFLEX MICROSCOPIC Routine 06/11/2025 9:56 AM EST documented in this encounter Results * XR Chest 1 View (06/11/2025 10:54 AM EST) Anatomical Region Laterality Modality Chest Radiographic Nina ging 06/11/2025 10:5 4 AM EST Narrative 06/11/2025 11:07 AM EST [address] [address] XRay Report Signed Patient: Tank Max MR#: [id number] : 1965 Acct:[id number] Age/Sex: 60 / F ADM Date: 06/11/25 Loc: HO.ED Attending Dr: Ordering Physician: Douglas Greene MD Date of Service: 06/11/25 Procedure(s): XR chest 1V Accession Number(s): [id number] cc: Douglas Greene MD; SANDRA VIEIRA NP [...] by Kevin Smith MD in OV> 06/11/25 1104 DD/ 1054 TD/TT: 06/11/25 1057 Engineering Patternmaker: Procedure Note Donotuseinterpreter, Image - 06/11/[address] [address] XRay Report Signed Patient: Tank MaxMR#: [id number] : 1965Acct:[id number] Age/Sex: 60 / FADM Date: 06/11/25 Loc: HO.ED Attending Dr: Ordering Physician: Douglas Greene MD Date of Service: 06/11/25 Procedure(s): XR chest 1V Accession Number(s): [id number] cc: Douglas Greene MD; SANDRA VIEIRA NP [...] signed by Kevin Smith MDin OV> 06/11/25 1104 DD/ 1054 TD/TT: 06/11/25 1057 Engineering Patternmaker: [facility] External Provider IMG XR PROCEDURES Final Result * (ABNORMAL) High Sensitivity Troponin I (06/11/2025 9:56 AM EST) TROPONIN I HIGH SENSITIVITY 118.4(HH) <3.5 - 17.0 ng/L [facility] Comment:Critical value for t est(s): HS TROP Results called to em back by: NITIN Person calling: LEAT Date: 06/11/25Time: 1044The [place] high sensitivity Troponin-I results should beused in conjunction with other diagnostic information suchas ECG, clinical observations and information, and patientsymptoms to aid in the diagnosis of ME. 06/11/2025 9:56 AM EST 06/11/2025 10:05 AM EST us Generic External Data Provider LAB BLOOD ORDERAB LES Final Result Performing Organization Address [facility]/ZIP Co de Phone Number [facility] [address] [place] [phone] * Urinalysis w/reflex microscopic (06/11/2025 9:56 AM EST) Color Urine Yellow [facility] Appearance Urine Clear [facility] PH 6.0 5.0 - 9.0 [facility] Glucose Urine UA Negative Negative mg/dL [facility] Urine Blood Negative Negative [facility] Specific [place] - Urine 1.020 1.005 - 1.025 [facility] Urine Protein Trace Neg-Trace mg/dL [facility] Urine Ketones Negative Negative mg/dL [facility] Nitrite Urine Negative Negative [facility] Leukocyte Esterase Urine Negative Negative [facility] 06/11/2025 9:56 AM EST 06/11/2025 10:05 AM EST Narrative [facility] - 06/11/2025 10:13 AM EST Urine, Clean Catch Generic External Data Provider LAB URINE ORDERAB LES Final Result Performing Organization Address [facility] Co de Phone Number [facility] [address] [place] [phone] * (ABNORMAL) CBC auto differential (06/11/2025 9:56 AM EST) White Blood Count 3.8(L) 4.8 - 10.8 X10*3/uL [facility] Red Blood Count 4.13(L) 4.20 - 5.50 X10*6/uL [facility] Hemoglobin 12.2 12.0 - 16.0 g/dl [facility] Hematocrit 35.5(L) 37.0 - 47.0 % [facility] Mean Corpuscular Volume 86.0 80.0 - 98.0 fL [facility] Mean Corpuscular Hemoglobin 29.5 27.0 - 33.0 pg [facility] Mean Corpuscular HGB Conc 34.4 31.0 - 35.0 g/dl [facility] Red Cell Distribution Width 12.7 11.0 - 16.0 % [facility] Platelet Count 101(L) 160 - 400 X10*3/uL [facility] Mean Platelet Volume 9.9 9.4 - 12.3 fL [facility] Neutrophils Percent Auto 61.1 45 - 73 % [facility] Imm Gran Pct Auto 0.3 0.0 - 0.4 % [facility] Lymphocytes Percent Auto 26.0 20 - 40 % [facility] Monocytes Percent Auto 10.7 2 - 11 % [facility] Eosinophils Percent Auto 1.6 0 - 4 % [facility] Basophils Percent Auto 0.3 0 - 2 % [facility] NRBC Pct Auto 0.0 0.0 - 0.2 /100WBC [facility] Neutrophils Absolute Auto 2.4 2.0 - 8.3 x10*3/uL [facility] Imm Gran Abs Auto 0.01 0.00 - 0.03 X10*3/uL [facility] Lymphocytes Absolute Auto 1.0(L) 1.2 - 4.9 X10*3/uL [facility] Monocytes Absolute Auto 0.4 0.1 - 1.2 X10*3/uL [facility] Eosinophils Absolute Auto 0.1 0.0 - 0.4 X10*3/uL [facility] Basophils Absolute Auto 0.0 0.0 - 0.2 X10*3/uL [facility] NRBC Abs Auto 0.000 0.0 - 0.012 X10*3/uL [facility] 06/11/2025 9:56 AM EST 06/11/2025 10:05 AM EST us Generic External Data Provider LAB BLOOD ORDERAB LES Final Result [facility] [address] [place] [phone] documented in this encounter Visit Diagnoses Not on filedocumented in this encounter Additional Health Concerns Assessment Noted Time PHQ-9 Depression Total Score: 5 11/23/19 24 1:33 PM EDT documented as of this encounter Care Teams Mastic Floor Layer Relationship Specialty Start Date End Date Sandra Vieira ANP [address] [place] [address] PCP - General Family Medicine 09/03/20 April Michele MD [address] [facility] [address] [place] [address] Referring Physician Infectious Diseases 10/09/24 Lee Hubbard MD [address] [place] [address] Urology 10/09/24 Rajni García, TIM [address] [place] [address] Registered Nurse Family Medicine 05/13/25 La Haddad 05/13/25 [facility] cardiology 11/12/23 documented as of this encounter
--- OUTSIDE RECORDS SUMMARY | 2025-06-11 11:24 | XMS_ITS | Encounter Summary ---
Author Organization [employer] Address [address] [facility] 7t [place] [address] Care Team Providers Care Lamination Technician Name Role Phone Wanda Bonilla Primary Care Provider Rajni García RN Unavailable [phone] April Michele MD Unavailable [phone] Lee Hubbard MD Unavailable Rajni García RN Unavailable [phone] La Haddad Unavailable Reason for Visit * Reason Onset Date Comments Hospital Follow-up 11/15/2023 Encounter Details Date Type Department Care Team (Late st Contact Info) Description 11/15/2023 Telephone [facility] MEDICINE 230 [place], [place] [phone] Wanda Bonilla ANP [address] [place], [place] [phone] Hospital Follow-up Social History Tobacco Use Types [...] from pt requesting a HDF appt. Hospital: [facility] Date of admission: 11/09 Discharge date: 11/13 Diagnosed: Neuropathy documented in this encounter Plan of Treatment Upcoming Encounters Date Type Department Care Team (Late st Contact Info) Description 07/02/2025 1:00 PM EST Office Visit [facility] MEDICINE [address] [place] [address] Wanda Bonilla ANP [address] [place] [address] 09/08/2025 1:30 PM EST Office Visit [facility] OPTOMETRY [address] [place] [address] Smiley Scott, JUDITH 230 [place] [address] documented as of this encounter Visit Diagnoses Not on filedocumented in this encounter Additional Health Concerns Assessment Noted Time PHQ-9 Depression Total Score: 0 08/25/19 23 1:48 PM EST documented as of this encounter Care Teams Lamination Technician Relationship Specialty Start Date End Date Wanda Bonilla ANP [address] [place] [address] PCP - General Family Medicine 09/03/20 Rajni García, RN [address] [place] [address] Bobbin DrierLay Brother 09/18/24 12/15/24 April Michele MD [address] [facility] [address] [place] [address] Referring Physician Infectious Diseases 10/09/24 Lee Hubbard MD [address] [place] [address] Urology 10/09/24 Rajni García RN 505 [place] [address] Registered Nurse Family Medicine 05/13/25 La Haddad 05/13/25 [facility] cardiology 11/12/23 documented as of this encounter
--- OUTSIDE RECORDS SUMMARY | 2025-06-11 11:24 | XMS_ITS | Encounter Summary ---
Author Organization [employer] Address [address] [facility] 7t [place] [address] Care Team Providers Care Furnace Mason Name Role Phone Wanda Bonilla Primary Care Provider [phone] Rajni García RN Unavailable April Michele MD Unavailable [phone] Lee Hubbard MD Unavailable [phone] Rajni García RN Unavailable La Haddad Unavailable Reason for Visit * Reason Onset Date Comments Med Refill 10/01/2023 Encounter Details Date Type Department Care Team (Late st Contact Info) Description 10/01/2023 Telephone [facility] MEDICINE [address] [place], [place] [phone] Wanda Bonilla ANP 230 [place], [place] [phone] Med Refill Social History Tobacco Use Types [...] 250 MG tablet To be sent to: [facility] pharmacy documented in this encounter Plan of Treatment Upcoming Encounters Date Type Department Care Team (Late st Contact Info) Description 07/02/2025 1:00 PM EST Office Visit [facility] MEDICINE [address] [place], [place] [phone] Wanda Bonilla ANP 230 [place] [address] 09/08/2025 1:30 PM EST Office Visit [facility] OPTOMETRY [address] [place], [place] [phone] Smiley Sctot, JUDITH [address] [place] [address] documented as of this encounter Visit Diagnoses Not on filedocumented in this encounter Additional Health Concerns Assessment Noted Time PHQ-9 Depression Total Score: 0 08/25/19 23 1:48 PM EST documented as of this encounter Care Teams Furnace Mason Relationship Specialty Start Date End Date Wanda Bonilla ANP 230 [facility] [address] PCP - General Family Medicine 09/03/20 Rajni García, RN 505 [facility] [place] [address] Aerosol SupervisorWelder Pipe Making 09/18/24 12/15/24 April Michele MD [address] [facility] [address] [place] [address] Referring Physician Infectious Diseases 10/09/24 Lee Hubbard MD [address] [place] [address] Urology 10/09/24 Rajni García, RN 505 [facility] [place] [address] Registered Nurse Family Medicine 05/13/25 La Haddad 05/13/25 [facility] cardiology 11/12/23 documented as of this encounter
--- OUTSIDE RECORDS SUMMARY | 2025-06-11 11:24 | XMS_ITS | Encounter Summary ---
Author Organization [employer] Address [address] [facility] 7t [place] [address] Care Team Providers Care Braiding Operator Name Role Phone Irene Wanda HARO Primary Care Provider Rajni García RN Unavailable [phone] April Michele MD Unavailable [phone] Lee Hubbard MD Unavailable Rajni García RN Unavailable [phone] La Haddad Unavailable Reason for Visit * Reason Comments Med Refill Encounter Details Date Type Department Care Team (Late st Contact Info) Description 03/20/2024 Refill [facility] [address] [place], [place] [phone] Shivani Small CNM [address] [place], [place] [phone] Social History Tobacco Use Types Packs/Day Years [...] the past 12 months, has t he IBTgames, gas, oil or water [employer] threatened to shut off services in your [...] Description 07/02/2025 1:00 PM EST Office Visit [facility] MED[facility] [address] [place] [address] Wanda Bonilla ANP [address] [place] [address] 09/08/2025 1:30 PM EST Office Visit [facility] OPTOMETRY [address] [place], [place] [phone] Tyler, Smiley, OD 230 [place] [address] documented as of this encounter Visit Diagnoses Not on filedocumented in this encounter Additional Health Concerns Assessment Noted Time PHQ-9 Depression Total Score: 5 11/23/19 24 1:33 PM EDT documented as of this encounter Care Teams Braiding Operator Relationship Specialty Start Date End Date Wanda Bonilla ANP [address] [place] [address] PCP - General Family Medicine 09/03/20 Rajni García RN [address] [place] [address] Rib Matcher And FitterShroudman 09/18/24 12/15/24 April Michele MD [address] [facility] [address] [place] [address] Referring Physician Infectious Diseases 10/09/24 Lee Hubbard MD [address] [place] [address] Urology 10/09/24 Rajni García RN [address] [place] [address] Registered Nurse Family Medicine 05/13/25 La Haddad 05/13/25 [facility] cardiology 11/12/23 documented as of this encounter
--- OUTSIDE RECORDS SUMMARY | 2025-06-11 11:24 | XMS_ITS | Encounter Summary ---
Author Organization [employer] Address [address] [place] [address] 7t [place] [address] Care Team Providers Care Hearing Aid Repairer Name Role Phone Wanda Bonilla Primary Care Provider Rajni García RN Unavailable [phone] April Michele MD Unavailable [phone] Lee Hubbard MD Unavailable Rajni García RN Unavailable [phone] La Haddad Unavailable Reason for Visit * Reason Comments Med Refill Encounter Details Date Type Department Care Team (Late st Contact Info) Description 01/11/2023 Refill [facility]INE [address] [place], [place] [phone] Wanda Bonilla ANP 230 [place], [place] [phone] Social History Tobacco Use Types Packs/Day Years [...] Description 07/02/2025 1:00 PM EST Office Visit [facility] 230 [place] [address] Wanda Bonilla ANP 230 [place] [address] 09/08/2025 1:30 PM EST Office Visit [facility] OPTOMETRY [address] [place] [address] Tyler, Smiley, OD 230 [place] [address] documented as of this encounter Visit Diagnoses Not on filedocumented in this encounter Additional Health Concerns Assessment Noted Time PHQ-9 Depression Total Score: 0 08/25/19 23 1:48 PM EST documented as of this encounter Care Teams Hearing Aid Repairer Relationship Specialty Start Date End Date Wanda Bonilla ANP 230 [place] [address] PCP - General Family Medicine 09/03/20 Rajni García, TIM 505 [place] [address] Operations Vocational InstructorFlooring Helper 09/18/24 12/15/24 April Michele MD [address] [facility] [address] [place] [address] Referring Physician Infectious Diseases 10/09/24 Lee Hubbard MD [address] [place] [address] Urology 10/09/24 Rajni García, TIM 505 [place] [address] Registered Nurse Family Medicine 05/13/25 La Haddad 05/13/25 [facility] cardiology 11/12/23 documented as of this encounter
--- OUTSIDE RECORDS SUMMARY | 2025-06-11 11:24 | XMS_ITS | Encounter Summary ---
Author Organization [employer] Address 75 [facility] 7t [place] [address] Care Team Providers Care Cooler Operator Name Role Phone Irene Wanda HARO Primary Care Provider [phone] Rajni García RN Unavailable [phone] April Michele MD Unavailable [phone] Lee Hubbard MD Unavailable Rajni García RN Unavailable [phone] La Haddad Unavailable Reason for Visit * Reason Comments Med Refill Encounter Details Date Type Department Care Team (Late st Contact Info) Description 12/03/2023 Telephone [facility] MEDICINE 230 [place], [place] [phone] Shelli Vo MD 230 [place], [place] [phone] Med Refill Social History Tobacco Use Types [...] the past 12 months, has t he [employer], gas, oil or water company threatened to [...] Description 07/02/2025 1:00 PM EST Office Visit [facility] MED[facility]INE 230 [place] [address] Wanda Bonilla, TAHIR 230 [place] [address] 09/08/2025 1:30 PM EST Office Visit [facility] OPTOMETRY [address] [place] [address] Smiley Scott, JUDITH 230 [place] [address] documented as of this encounter Visit Diagnoses Diagnosis Asthma, unspecified asthma severity, unspecified whether complicated, unspecified whether persistent documented in this encounter Additional Health Concerns Assessment Noted Time PHQ-9 Depression Total Score: 5 11/23/19 24 1:33 PM EDT documented as of this encounter Care Teams Cooler Operator Relationship Specialty Start Date End Date Wanda Bonilla ANP 230 [place] [address] PCP - General Family Medicine 09/03/20 Rajni García, RN 505 [place] [address] Securities AnalystArm Maker 09/18/24 12/15/24 April Michele MD [address] [facility] [address] [place] [address] Referring Physician Infectious Diseases 10/09/24 Lee Hubbard MD [address] [place] [address] Urology 10/09/24 Rajni García, TIM 505 [place] [address] Registered Nurse Family Medicine 05/13/25 La Haddad 05/13/25 [facility] cardiology 11/12/23 documented as of this encounter
--- OUTSIDE RECORDS SUMMARY | 2025-06-11 11:24 | XMS_ITS | Encounter Summary ---
Author Organization [employer] Address 75 [facility] 7t [place] [address] Care Team Providers Care Sales Team Manager Name Role Phone Wanda Bonilla Primary Care Provider [phone] Rajni García RN Unavailable April Michele MD Unavailable [phone] Lee Hubbard MD Unavailable [phone] Rajni García RN Unavailable [phone] La Haddad Unavailable Reason for Visit * Reason Onset Date Comments Returning Call 01/08/2024 Encounter Details Date Type Department Care Team (Late st Contact Info) Description 01/08/2024 Telephone [facility] MEDICINE 230 [place], [place] [phone] Wanda Bonilla ANP 230 [place], [place] [phone] Returning Call Social History Tobacco Use Types [...] the past 12 months, has t he [employer], gas, oil or water company threatened to [...] pt stated she received a call from patient care assistant regarding new program in [facility], mortgage or loan underwriter did not see anything documented but advised will forward message. documented in this encounter Plan of Treatment Upcoming Encounters Date Type Department Care Team (Late st Contact Info) Description 07/02/2025 1:00 PM EST Office Visit [facility] MEDICINE 230 [place] [address] Wanda Bonilla, ANP 230 [place] [address] 09/08/2025 1:30 PM EST Office Visit [facility] OPTOMETRY [address] [place] [address] Smiley Scott, OD 230 [place] [address] documented as of this encounter Visit Diagnoses Not on filedocumented in this encounter Additional Health Concerns Assessment Noted Time PHQ-9 Depression Total Score: 5 11/23/19 24 1:33 PM EDT documented as of this encounter Care Teams Sales Team Manager Relationship Specialty Start Date End Date Wanda Bonilla ANP 230 [place] [address] PCP - General Family Medicine 09/03/20 Rajni García, TIM 505 [place] [address] Sponge HookerTelephone Plant Power Operator 09/18/24 12/15/24 April Michele MD [address] [facility] [address] [place] [address] Referring Physician Infectious Diseases 10/09/24 Lee Hubbard MD [address] [place] [address] Urology 10/09/24 Rajni García, TIM 505 [place] [address] Registered Nurse Family Medicine 05/13/25 La Haddad 05/13/25 [facility] cardiology 11/12/23 documented as of this encounter
--- OUTSIDE RECORDS SUMMARY | 2025-06-11 11:24 | XMS_ITS | Encounter Summary ---
Author Organization [employer] Address 75 [facility] 7t [place] [address] Care Team Providers Care Foundry Molder Name Role Phone Wanda Bonilla Primary Care Provider April Michele MD Unavailable [phone] Lee Hubbard MD Unavailable [phone] Rajni García RN Unavailable [phone] La Haddad Unavailable Reason for Visit * Reason Comments Med Refill Encounter Details Date Type Department Care Team (Late st Contact Info) Description 06/11/2025 Refill [facility] MEDICINE [address] [place], [place] [phone] Wanda Bonilla ANP 230 [place], [place] [phone] Benign essential HTN Social History Tobacco Use Types Packs/Day Years [...] Description 07/02/2025 1:00 PM EST Office Visit [facility] MEDICINE [address] [place] [address] Wanda Bonilla ANP 230 [place] [address] 09/08/2025 1:30 PM EST Office Visit [facility] OPTOMETRY [address] [place], [place] [phone] Tyler, Smiley, OD 230 [place] [address] documented as of this encounter Visit Diagnoses Diagnosis Benign essential HTN documented in this encounter Additional Health Concerns Assessment Noted Time PHQ-9 Depression Total Score: 5 11/23/19 24 1:33 PM EDT documented as of this encounter Care Teams Foundry Molder Relationship Specialty Start Date End Date Wanda Bonilla ANP 230 [place] [address] PCP - General Family Medicine 09/03/20 April Michele MD [address] [facility] [address] [place] [address] Referring Physician Infectious Diseases 10/09/24 Lee Hubbard MD [address] [place] [address] Urology 10/09/24 Rajni García RN 505 [place] [address] Registered Nurse Family Medicine 05/13/25 La Haddad 05/13/25 [facility] cardiology 11/12/23 documented as of this encounter
--- OUTSIDE RECORDS SUMMARY | 2025-06-11 11:24 | XMS_ITS | Encounter Summary ---
Author Organization [employer] Address [address] [place] [address] 7t [place] [address] Care Team Providers Care Engineer Name Role Phone Wanda Bonilla Primary Care Provider [phone] aRjni García RN Unavailable [phone] April Michele MD Unavailable [phone] Lee Hubbard MD Unavailable Rajni García RN Unavailable [phone] La Haddad Unavailable Encounter Details Date Type Department Care Team (Late st Contact Info) Description 08/09/2022 Orders Only [facility] MEDICINE [address] [place] [address] [phone] Shanna Lopez LPN Social History Tobacco Use [...] EST Office Visit [facility] MEDICINE 230 [place], [place] [phone] Wanda Bonilla ANP 230 [place] [address] 09/08/2025 1:30 PM EST Office Visit [facility] OPTOMETRY [address] [place] [address] [phone] Smiley Scott, OD 230 [place] [address] documented as of this encounter Visit Diagnoses Not on filedocumented in this encounter Care Teams Engineer Relationship Specialty Start Date End Date Wanda Bonilla ANP 230 [place] [address] PCP - General Family Medicine 09/03/20 Rajni García, RN 505 [place] [address] Electronics ProcessorCarpenters Helper 09/18/24 12/15/24 April Michele MD 575 [facility] [address] [place] [address] Referring Physician Infectious Diseases 10/09/24 Lee Hubbard MD [address] [place] [address] Urology 10/09/24 Rajni García, TIM [address] [place] [address] Registered Nurse Family Medicine 05/13/25 La Haddad 05/13/25 [facility] cardiology 11/12/23 documented as of this encounter
--- OUTSIDE RECORDS SUMMARY | 2025-06-11 11:24 | XMS_ITS | Encounter Summary ---
Author Organization [employer] Address 75 [facility] 7t [place] [address] Care Team Providers Care Resource Manager Name Role Phone Wanda Bonilla Primary Care Provider April Michele MD Unavailable [phone] Lee Hubbard MD Unavailable Rajni García RN Unavailable [phone] La Haddad Unavailable Reason for Visit * Reason Comments Care Coordination CM/CHW outreach Encounter Details Date Type Department Care Team (Latest Contact Info) Description 06/09/2025 Patient Outreach [facility] MEDICINE 230 [place], [place] [phone] Wanda Bonilla ANP 230 [place] [address] Care Coordination (CM/CHW outreach) Social History Tobacco [...] encounter Progress Notes * La Haddad - 06/09/2025 10:48 AM EST CHW La Haddad, placed outbound call to patient introducing herself from [facility] CM Department, in regards to offering services. Patient's name and was confirmed. Patient agreesto participate in program. Appt. for initial assessment scheduled for 06/18/25 @ 1PM tele with CM Rajni García RN. CHW reinforced direct contact information or for any additional questions or concerns and extended clinic hours on Mondays and Wednesdays, and Walk-In Urgent Care Located in [facility] of [facility]. Patient provided with after-hours line for [facility], ,which offer night time triage service and option to transfer to fiction and nonfiction prose writer provider if needed. Patient verbalizes understanding, and able to repeat back to caption writer. documented in this encounter Plan of Treatment Upcoming Encounters Date Type Department Care Team (Late st Contact Info) Description 07/02/2025 1:00 PM EST Office Visit [facility] MEDICINE 230 [place] [address] Wanda Bonilla ANP 230 [place] [address] 09/08/2025 1:30 PM EST Office Visit [facility] OPTOMETRY [address] [place] [address] Tyler, Smiley, OD 230 [place] [address] documented as of this encounter Visit Diagnoses Not on filedocumented in this encounter Additional Health Concerns Assessment Noted Time PHQ-9 Depression Total Score: 5 11/23/19 24 1:33 PM EDT documented as of this encounter Care Teams Resource Manager Relationship Specialty Start Date End Date Wanda Bonilla ANP 230 [place] [address] PCP - General Family Medicine 09/03/20 April Michele MD 575 [facility] [address] [place] [address] Referring Physician Infectious Diseases 10/09/24 Lee Hubbard MD [address] [place] [address] Urology 10/09/24 Rajni García, TIM 505 [place] [address] Registered Nurse Family Medicine 05/13/25 La Haddad 05/13/25 [facility] cardiology 11/12/23 documented as of this encounter
--- OUTSIDE RECORDS SUMMARY | 2025-06-11 11:24 | XMS_ITS | Encounter Summary ---
Author Organization [employer] Address [address] [place] [address] 7t [place] [address] Care Team Providers Care Interior Designer Name Role Phone Wanda Bonilla Primary Care Provider Rajni García RN Unavailable April Michele MD Unavailable [phone] Lee Hubbard MD Unavailable [phone] Rajni García RN Unavailable [phone] La Haddad Unavailable Reason for Visit * Reason Onset Date Comments triage 07/13/2022 Encounter Details Date Type Department Care Team (Late st Contact Info) Description 07/13/2022 Telephone [facility] MEDICINE 230 [place], [place] [phone] Wanda Bonilla ANP 230 [place] [address] triage Social History Tobacco Use Types Packs/Day [...] caller The caller accepted this outcome speaks welsh documented in this encounter Plan of Treatment Upcoming Encounters Date Type Department Care Team (Late st Contact Info) Description 07/02/2025 1:00 PM EST Office Visit [facility] MEDICINE 230 [place] [address] Wanda Bonilla ANP 230 [place] [address] 09/08/2025 1:30 PM EST Office Visit [facility] OPTOMETRY [address] [place] [address] Tyler, Smiley, OD 230 [place] [address] documented as of this encounter Visit Diagnoses Not on filedocumented in this encounter Care Teams Interior Designer Relationship Specialty Start Date End Date Wanda Bonilla ANP 230 [place] [address] PCP - General Family Medicine 09/03/20 Rajni García RN 505 [place] [address] Cognos Bi DeveloperPhysical Ther 09/18/24 12/15/24 April Michele MD [address] [facility] [address] [place] [address] Referring Physician Infectious Diseases 10/09/24 Lee Hubbard MD [address] [place] [address] Urology 10/09/24 Rajni García, TIM [address] [place] [address] Registered Nurse Family Medicine 05/13/25 La Haddad 05/13/25 [facility] cardiology 11/12/23 documented as of this encounter
--- OUTSIDE RECORDS SUMMARY | 2025-06-11 11:24 | XMS_ITS | Encounter Summary ---
Author Organization [employer] Address 75 [facility] 7t [place] [address] Care Team Providers Care Monkey Trainer Name Role Phone Wanda Bonilla Primary Care Provider [phone] Rajni García RN Unavailable [phone] April Michele MD Unavailable [phone] Lee Hubbard MD Unavailable Rajni García RN Unavailable [phone] La Haddad Unavailable Reason for Visit * Reason Comments Med Refill Encounter Details Date Type Department Care Team (Late st Contact Info) Description 08/03/2024 Refill [facility] MEDICINE 230 [place], [place] [phone] Wanda Bonilla ANP 230 [place], [place] [phone] Essential hypertension Social History Tobacco Use Types [...] the past 12 months, has t he [employer], gas, oil or water company threatened to [...] Description 07/02/2025 1:00 PM EST Office Visit [facility] MEDICINE 230 [place] [address] Wanda Bonilla ANP [address] [place] [address] 09/08/2025 1:30 PM EST Office Visit [facility] OPTOMETRY [address] [place] [address] Tyler, Smiley, OD 230 [place] [address] documented as of this encounter Visit Diagnoses Diagnosis Essential hypertension Unspecified essential hypertension documented in this encounter Additional Health Concerns Assessment Noted Time PHQ-9 Depression Total Score: 5 11/23/19 24 1:33 PM EDT documented as of this encounter Care Teams Monkey Trainer Relationship Specialty Start Date End Date Wanda Bonilla ANP 230 [place] [address] PCP - General Family Medicine 09/03/20 Rajni García RN 505 [place] [address] Coastal Tug MateLiquid Compounder 09/18/24 12/15/24 April Michele MD [address] [facility] [address] [place] [address] Referring Physician Infectious Diseases 10/09/24 Lee Hubbard MD [address] [place] [address] Urology 10/09/24 Rajni García RN 505 [place] [address] Registered Nurse Family Medicine 05/13/25 La Haddad 05/13/25 [facility] cardiology 11/12/23 documented as of this encounter
--- OUTSIDE RECORDS SUMMARY | 2025-06-11 11:24 | XMS_ITS | Encounter Summary ---
Author Organization [employer] Address [address] [facility] 7t [place] [address] Care Team Providers Care Woodworking Bench Carpenter Name Role Phone Wanda Bonilla Primary Care Provider [phone] Rajni García RN Unavailable [phone] April Michele MD Unavailable Lee Hubbard MD Unavailable [phone] Rajni García RN Unavailable [phone] La Haddad Unavailable Reason for Visit * Reason Onset Date Comments Appointment Request 06/12/2023 Encounter Details Date Type Department Care Team (Late st Contact Info) Description 06/12/2023 Telephone [facility] MEDICINE 230 [place], [place] [phone] Wanda Bonilla ANP 230 [place], [place] [phone] Appointment Request Social History Tobacco Use Types [...] Visit [facility] MEDICINE 230 [place] [address] Wanda Bonilla ANP [address] [place] [address] 09/08/2025 1:30 PM EST Office Visit [facility] OPTOMETRY [address] [place] [address] Tyler, Smiley, OD [address] [place] [address] documented as of this encounter Visit Diagnoses Not on filedocumented in this encounter Additional Health Concerns Assessment Noted Time PHQ-9 Depression Total Score: 0 08/25/19 23 1:48 PM EST documented as of this encounter Care Teams Woodworking Bench Carpenter Relationship Specialty Start Date End Date Wanda Bonilla ANP 230 [place] [address] PCP - General Family Medicine 09/03/20 Rajni García, RN [address] [place] [address] Honing Machine Set Up OperatorNuclear Plant Construction Worker 09/18/24 12/15/24 April Michele MD [address] [facility] [address] [place] [address] Referring Physician Infectious Diseases 10/09/24 Lee Hubbard MD [address] [facility] [address] [place] [address] Urology 10/09/24 Rajni García, TIM [address] [place] [address] Registered Nurse Family Medicine 05/13/25 La Haddad 05/13/25 [facility] cardiology 11/12/23 documented as of this encounter
--- OUTSIDE RECORDS SUMMARY | 2025-06-11 11:24 | XMS_ITS | Encounter Summary ---
Author Organization [employer] Address 75 [facility] 7t [place] [address] Care Team Providers Care Cyber Analyst Name Role Phone Wanda Bonilla Primary Care Provider [phone] Rajni García RN Unavailable [phone] April Michele MD Unavailable Lee Hubbard MD Unavailable [phone] Rajni García RN Unavailable La Haddad Unavailable Encounter Details Date Type Department Care Team (Late st Contact Info) Description 09/26/2023 Telephone [facility] MEDICINE 230 [place], [place] [phone] Wanda Bonilla ANP 230 [place], [place] [phone] Social History Tobacco Use Types Packs/Day Years [...] Description 07/02/2025 1:00 PM EST Office Visit [facility] MEDICINE 230 [place] [address] Wanda Bonilla ANP 230 [place] [address] 09/08/2025 1:30 PM EST Office Visit [facility] OPTOMETRY [address] [place] [address] Tyler, Smiley, OD 230 [place] [address] documented as of this encounter Visit Diagnoses Not on filedocumented in this encounter Additional Health Concerns Assessment Noted Time PHQ-9 Depression Total Score: 0 08/25/19 23 1:48 PM EST documented as of this encounter Care Teams Cyber Analyst Relationship Specialty Start Date End Date Wanda Bonilla ANP 230 [place] [address] PCP - General Family Medicine 09/03/20 Rajni García, RN 505 [place] [address] Clerical ManagerBlock Breaker 09/18/24 12/15/24 April Michele MD 575 [facility] [address] [place] [address] Referring Physician Infectious Diseases 10/09/24 Lee Hubbard MD [address] [place] [address] Urology 10/09/24 Rajni García, TIM [address] [place] [address] Registered Nurse Family Medicine 05/13/25 La Haddad 05/13/25 [facility] cardiology 11/12/23 documented as of this encounter
--- OUTSIDE RECORDS SUMMARY | 2025-06-11 11:24 | XMS_ITS | Encounter Summary ---
Author Organization [employer] Address [address] [facility] [address] 7t [place] [address] Care Team Providers Care Cattle Broker Name Role Phone Irene Wanda HARO Primary Care Provider [phone] Rajni García RN Unavailable [phone] April Michele MD Unavailable [phone] Lee Hubbard MD Unavailable [phone] Rajni García RN Unavailable [phone] La Haddad Unavailable Encounter Details Date Type Department Care Team (Late st Contact Info) Description 11/25/2024 Orders Only [facility] 505 [place], [place] [phone] Dina Crawford Social History Tobacco Use Types [...] Description 07/02/2025 1:00 PM EST Office Visit [facility] MEDICINE 230 [place] [address] Wanda Bonilla, ANP 230 [place] [address] 09/08/2025 1:30 PM EST Office Visit [facility] OPTOMETRY [address] [place] [address] Smiley Scott, OD 230 [place] [address] documented as of this encounter Procedures Procedure Name Priority Date/Time Associated Diagnosis Comments HPV MRNA E6/E7 REFLEX TO HPV 16, 18/45 Routine 06/17/2024 12:00 AM EST documented in this encounter Results * HPV mRNA E6/E7 w/Reflex to HPV Genotypes 16, 18/45 (06/17/2024 12:00 AM EST) us Historical Provider LAB CYTOLOGY ORDERABLES F inal Result [facility] [address] [place] [phone] documented in this encounter Visit Diagnoses Not on filedocumented in this encounter Additional Health Concerns Assessment Noted Time PHQ-9 Depression Total Score: 5 11/23/19 24 1:33 PM EDT documented as of this encounter Care Teams Cattle Broker Relationship Specialty Start Date End Date Wanda Bonilla ANP 230 [place] [address] PCP - General Family Medicine 09/03/20 Rajni García, RN 505 [place] [address] Feed WeigherRoller Inspector 09/18/24 12/15/24 April Michele MD [address] [facility] [address] [place] [address] Referring Physician Infectious Diseases 10/09/24 Lee Hubbard MD [address] [place] [address] Urology 10/09/24 Rajni García, TIM 505 [place] [address] Registered Nurse Family Medicine 05/13/25 La Haddad 05/13/25 [facility] cardiology 11/12/23 documented as of this encounter
--- OUTSIDE RECORDS SUMMARY | 2025-06-11 11:24 | XMS_ITS | Encounter Summary ---
Author Organization [employer] Address [address] [facility] 7t [place] [address] Care Team Providers Care Manual Arts Therapist Name Role Phone Wanda Bonilla Primary Care Provider [phone] Rajni García RN Unavailable April Michele MD Unavailable [phone] Lee Hubbard MD Unavailable [phone] Rajni García RN Unavailable [phone] La Haddad Unavailable Reason for Visit * Reason Comments Med Refill Encounter Details Date Type Department Care Team (Late st Contact Info) Description 11/05/2023 Refill [facility] MEDICINE [address] [place], [place] [phone] Wanda Bonilla ANP [address] [place], [place] [phone] Social History Tobacco Use Types Packs/Day Years [...] 1:00 PM EST Office Visit [facility] MEDICINE [address] [place] [address] Wanda Bonilla ANP [address] [place] [address] 09/08/2025 1:30 PM EST Office Visit [facility] OPTOMETRY [address] [place] [address] Tyler, Smiley, OD [address] [place] [address] documented as of this encounter Visit Diagnoses Not on filedocumented in this encounter Additional Health Concerns Assessment Noted Time PHQ-9 Depression Total Score: 0 08/25/19 23 1:48 PM EST documented as of this encounter Care Teams Manual Arts Therapist Relationship Specialty Start Date End Date Wanda Bonilla ANP [address] [place] [address] PCP - General Family Medicine 09/03/20 Rajni García RN [address] [place] [address] Equipment ProcessorHitting Coach 09/18/24 12/15/24 April Michele MD [address] [facility] [address] [place] [address] Referring Physician Infectious Diseases 10/09/24 Lee Hubbard MD [address] [facility] [address] [place] [address] Urology 10/09/24 Rajni García, TIM [address] [place] [address] Registered Nurse Family Medicine 05/13/25 La Haddad 05/13/25 [facility] cardiology 11/12/23 documented as of this encounter
--- OUTSIDE RECORDS SUMMARY | 2025-06-11 11:24 | XMS_ITS | Encounter Summary ---
Author Organization [employer] Address [address] [facility] [address] 7t [place] [address] Care Team Providers Care Plug Stitcher Name Role Phone Irene Wanda HARO Primary Care Provider [phone] Rajni García RN Unavailable [phone] April Michele MD Unavailable [phone] Lee Hubbard MD Unavailable [phone] Rajni García RN Unavailable [phone] La Haddad Unavailable Encounter Details Date Type Department Care Team (Late st Contact Info) Description 08/14/2024 Telephone [facility] MEDICINE [address] [place], [place] [phone] Adolfo Fernando, VishnuD Social History Tobacco Use [...] Description 07/02/2025 1:00 PM EST Office Visit [facility] MEDICINE [address] [place] [address] Wanda Bonilla ANP [address] [place] [address] 09/08/2025 1:30 PM EST Office Visit [facility] OPTOMETRY [address] [place] [address] Smiley Scott OD 230 [place] [address] documented as of this encounter Visit Diagnoses Not on filedocumented in this encounter Additional Health Concerns Assessment Noted Time PHQ-9 Depression Total Score: 5 11/23/19 1:33 PM EDT documented as of this encounter Care Teams Plug Stitcher Relationship Specialty Start Date End Date Wanda Bonilla ANP [address] [place] [address] PCP - General Family Medicine 09/03/20 Rajni García RN [address] [place] [address] [employer] OffbearerDirect Marketing Intern 09/18/24 12/15/24 April Michele MD [address] [facility] [address] [place] [address] Referring Physician Infectious Diseases 10/09/24 Lee Hubbard MD [address] [place] [address] Urology 10/09/24 Rajni García RN [address] [place] [address] Registered Nurse Family Medicine 05/13/25 La Haddad 05/13/25 [facility] cardiology 11/12/23 documented as of this encounter
--- OUTSIDE RECORDS SUMMARY | 2025-06-11 11:24 | XMS_ITS | Encounter Summary ---
Author Organization [employer] Address [address] [facility] 7t [place] [address] Care Team Providers Care Water Plant Operator Name Role Phone Irene Wanda HARO Primary Care Provider Rajni García RN Unavailable April Michele MD Unavailable [phone] Lee Hubbard MD Unavailable [phone] Rajni García RN Unavailable [phone] La Haddad Unavailable Reason for Visit * Reason Comments Med Refill Encounter Details Date Type Department Care Team (Late st Contact Info) Description 03/14/2024 Refill [facility] MEDICINE [address] [place], [place] [phone] Shivani Small CNM [address] [place] [address] Social History Tobacco Use Types Packs/Day Years [...] the past 12 months, has t he [employer], gas, oil or water [employer] threatened to shut off services in your [...] Visit [facility] MEDICINE [address] [place] [address] Wanda Bonilla ANP [address] [place] [address] 09/08/2025 1:30 PM EST Office Visit [facility] OPTOMETRY [address] [place], [place] [phone] Tyler, Smiley, OD [address] [place] [address] documented as of this encounter Visit Diagnoses Not on filedocumented in this encounter Additional Health Concerns Assessment Noted Time PHQ-9 Depression Total Score: 5 11/23/19 24 1:33 PM EDT documented as of this encounter Care Teams Water Plant Operator Relationship Specialty Start Date End Date Wanda Bonilla ANP [address] [place] [address] PCP - General Family Medicine 09/03/20 Rajni García RN [address] [place] [address] Care TechRegister Clerk 09/18/24 12/15/24 April Michele MD [address] [facility] [address] [place] [address] Referring Physician Infectious Diseases 10/09/24 Lee Hubbard MD [address] [place] [address] Urology 10/09/24 Rajni García RN [address] [place] [address] Registered Nurse Family Medicine 05/13/25 La Haddad 05/13/25 [facility] cardiology 11/12/23 documented as of this encounter
--- OUTSIDE RECORDS SUMMARY | 2025-06-11 11:25 | XMS_ITS ---
Author Organization [employer] Address [address] [facility] 7t [place] [address] Care Team Providers Care Executive Admin Name Role Phone Wanda Bonilla Primary Care Provider April Michele MD Unavailable [phone] Lee Hubbard MD Unavailable Rajni García RN Unavailable [phone] La Haddad Unavailable CM Complex Status:Outreach In Progress (Enrolling) Start date:05/13/2025 Enrollment reason:ADT Feed Overview ADT-[facility] ED 05/12/25 Case Team Name Relationship Phone Rajni García RN(Responsible Staff) Registered Nurse [phone] Continued Care and Services Coordination
--- OUTSIDE RECORDS SUMMARY | 2025-06-11 11:25 | XMS_ITS | Encounter Summary ---
Author Organization [employer] Address [address] [facility] 7t [place] [address] Care Team Providers Care Installer Technician Name Role Phone Wanda Bonilla Primary Care Provider April Michele MD Unavailable [phone] Lee Hubbard MD Unavailable Rajni García RN Unavailable La Haddad Unavailable Reason for Visit * Reason Onset Date Comments Referral 01/06/2025 Encounter Details Date Type Department Care Team (Late st Contact Info) Description 01/06/2025 Telephone [facility] MEDICINE [address] [place], [place] [phone] Wanda Bonilla ANP [address] [place], [place] [phone] Referral Social History Tobacco Use Types Packs/Day [...] any questions you can contact pt at [phone]. (Sinhala Speaker) documented in this encounter Plan of Treatment Upcoming Encounters Date Type Department Care Team (Late st Contact Info) Description 07/02/2025 1:00 PM EST Office Visit [facility] MEDICINE [address] [place] [address] Wanda Bonilla ANP [address] [place] [address] 09/08/2025 1:30 PM EST Office Visit [facility] OPTOMETRY [address] [place] [address] Smiley Scott, OD [address] [place] [address] documented as of this encounter Visit Diagnoses Not on filedocumented in this encounter Additional Health Concerns Assessment Noted Time PHQ-9 Depression Total Score: 5 11/23/19 24 1:33 PM EDT documented as of this encounter Care Teams Installer Technician Relationship Specialty Start Date End Date Wanda Bonilla ANP [address] [place] [address] PCP - General Family Medicine 09/03/20 April Michele MD [address] [facility] [address] [place] [address] Referring Physician Infectious Diseases 10/09/24 Lee Hubbard MD [address] [place] [address] Urology 10/09/24 Rajni García, TIM [address] [place] [address] Registered Nurse Family Medicine 05/13/25 La Haddad 05/13/25 [facility] cardiology 11/12/23 documented as of this encounter
--- OUTSIDE RECORDS SUMMARY | 2025-06-11 11:25 | XMS_ITS | Clinical Summary ---
Author Organization [address] [facility] Address [address] [place] [address] Phone Care Team Providers Care Cleaner Housekeeping Name Role Phone Regina Su ADRIANNE Primary [...] topic Insurance MEDICAID - [place] Care Teams Cleaner Housekeeping Relationship Specialty Start Date End Date Regnia Su FNP [address] [place] [address] PCP - General Nurse Practitioner 07/11/24
--- OUTSIDE RECORDS SUMMARY | 2025-06-11 11:25 | XMS_ITS ---
Author Organization [employer] Address [address] [facility] 7t [place] [address] Care Team Providers Care Malter Operator Name Role Phone Wanda Bonilla Primary Care Provider April Michele MD Unavailable [phone] Lee Hubbard MD Unavailable Rajni García RN Unavailable [phone] La Haddad Unavailable CHW Complex Status:Outreach In Progress (Enrolling) Start date:05/13/2025 Enrollment reason:ADT Feed Overview ADT-[facility] ED 05/12/25. Please outreach for enrollment. Case Team Name Relationship Phone La Haddad(Responsible Staff) [phone] Continued Care and Services Coordination
--- OUTSIDE RECORDS SUMMARY | 2025-06-11 11:25 | XMS_ITS | Encounter Summary ---
Author Organization [employer] Address [address] [facility] 7t [place] [address] Care Team Providers Care Food Order Expediter Name Role Phone Wanda Bonilla Primary Care Provider April Michele MD Unavailable [phone] Lee Hubbard MD Unavailable Rajni García RN Unavailable [phone] La Haddad Unavailable Reason for Visit * Reason Onset Date Comments Referral 01/02/2025 Encounter Details Date Type Department Care Team (Late st Contact Info) Description 01/02/2025 Telephone [facility] MEDICINE [address] [place], [place] [phone] Wanda Bonilla ANP [address] [place], [place] [phone] Referral Social History Tobacco Use Types Packs/Day [...] location of referral for derek [facility] [place] [facility]. Pt would like a call back to confirm. Please contact pt at [phone]. documented in this encounter Plan of Treatment Upcoming Encounters Date Type Department Care Team (Late st Contact Info) Description 07/02/2025 1:00 PM EST Office Visit [facility] MEDICINE [address] [place] [address] Wanda Bonilla, TAHIR [address] [place] [address] 09/08/2025 1:30 PM EST Office Visit [facility] OPTOMETRY [address] [place] [address] Smiley Scott, OD [address] [place] [address] documented as of this encounter Visit Diagnoses Not on filedocumented in this encounter Additional Health Concerns Assessment Noted Time PHQ-9 Depression Total Score: 5 11/23/19 24 1:33 PM EDT documented as of this encounter Care Teams Food Order Expediter Relationship Specialty Start Date End Date Wanda Bonilla ANP [address] [place] [address] PCP - General Family Medicine 09/03/20 April Michele MD [address] [facility] [address] [place] [address] Referring Physician Infectious Diseases 10/09/24 Lee Hubbard MD [address] [place] [address] Urology 10/09/24 Rajni García RN [address] [place] [address] Registered Nurse Family Medicine 05/13/25 La Haddad 05/13/25 [facility] cardiology 11/12/23 documented as of this encounter
[2025-06-11 11:56] VITALS: BP 168/79; PULSE 48; RESP 16; TEMP 36.6; O2SAT 96
[2025-06-11 14:11] LABS: Troponin-I High Sensitivity 117.2 ng/L (<3.5-17.0)
[2025-06-11 15:06] VITALS: BP 175/82; PULSE 58; RESP 16; TEMP 36.6; O2SAT 96
== END 2025-06-11 15:07 | disposition home or self-care (01) ==
PROVIDERS: Emergency Provider Emergency Medicine; PCP Nurse Practitioner Primary Care
DX: R07.89 Other chest pain (principal); M79.602 Pain in left arm; Z79.899 Other long term (current) drug therapy; Z87.891 Personal history of nicotine dependence
CPT/HCPCS: 36415; 71045; 80053; 81003; 82248; 83690; 83735; 84484; 85025; 93005; 99284

== ENCOUNTER → 2025-06-11 09:30 | Outpatient (BNV) | payer MEDICAID, SELFPAY | PROVIDERS: Emergency Provider Emergency Medicine; PCP Nurse Practitioner Primary Care; Visit Provider Internal Medicine Cardiovascular Disease | DX: R00.1 Bradycardia, unspecified (principal); I42.2 Other hypertrophic cardiomyopathy | CPT/HCPCS: 93010 ==

== ENCOUNTER → 2025-06-11 10:36 | Outpatient (BNV) | payer MEDICAID, SELFPAY | PROVIDERS: Emergency Provider Emergency Medicine; PCP Nurse Practitioner Primary Care; Visit Provider Radiology Diagnostic Radiology | DX: R07.9 Chest pain, unspecified (principal); M47.814 Spondylosis without myelopathy or radiculopathy, thoracic region; M48.04 Spinal stenosis, thoracic region | CPT/HCPCS: 71045 ==

== ENCOUNTER 2025-06-16 06:21 | Outpatient (REF) | payer MEDICAID, SELFPAY ==
--- NOTE | ~2025-06-16 | FL_ITS ---
EXAMINATION: FL GUIDANCE ONLY HISTORY: M47.812 - Spondylosis without myelopathy or radiculopathy, cervical region COMPARISON: None available. TECHNIQUE: Fluoroscopy time: 50 seconds. Cumulative Dose: 5.00 mGy. DAP: 911.80 mGycm2 Images: 9. FINDINGS: Fluoroscopic spot films of the cervical spine demonstrate needles and contrast material at multiple levels bilaterally. FL/FL guidance in treatment room IMPRESSION: Fluoroscopy during procedure. Please see procedure report for additional information. Electronically signed by: Javier Landin MD 06/17/2025 06:59 AM DOTTIE
== END 2025-06-16 06:22 | disposition home or self-care (01) ==
LOC: CF 06:21
PROVIDERS: Visit Provider Anesthesiology
DX: M47.812 Spondylosis without myelopathy or radiculopathy, cervical region (principal)
CPT/HCPCS: J2003; J2795; Q9967

== ENCOUNTER 2025-06-16 08:50 | Outpatient (AMB) | payer MEDICAID, SELFPAY ==
--- NOTE | 2025-06-16 08:55 | MHC.OFFVIS ---
Vital Signs 06/16/25 08:56 06/16/25 09:42 Height 5 ft 3 in Weight 167 lb BMI 29.6 BP 121/77 143/78 H Blood Pressure Location Lt brachial Lt brachial Position Sitting Sitting Respiration 16 16 Pulse 63 58 Pulse Source Pulse Oximeter Pulse Oximeter Pulse Oximetry (%) 99 99 Oxygen Delivery Method Room Air Room Air Intake Visit Reasons: BILATERAL DIAGNOSTIC C4-C5-C6 MBB Allergies morphine Adverse Reaction (Verified 06/19/25 10:26) Abdominal Pain PFSH Medical History Bilateral hand pain Disc disease, degenerative, cervical Neuropathy Somnolence, daytime Flank pain RUQ abdominal pain Left foot pain COVID-19 Hepatitis C Rheumatoid arthritis Flank pain Renal stones Bipolar disorder Panic disorder Depression Anxiety Abdominal distension (gaseous) Asthma Hyperlipidemia 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 Mother Diabetes mellitus Sister Diabetes mellitus Brother No problems noted. Paternal Uncle Colon cancer Social History Household Members: None Housing: Apartment Do you presently have visiting nurse or other home services: Yes Alcohol intake: current Alcohol intake frequency: former alcohol drinker Alcohol type: beer Patient Tobacco Use Status: Former Tobacco user Tobacco use type: Cigarette Cigarettes Per Day: 2 Years Smoked: 15 service: No Physical Exam Vital Signs: Last Vital Signs Pulse 58 06/16/25 09:42 Resp 16 06/16/25 09:42 BP 143/78 H 06/16/25 09:42 Pulse Ox 99 06/16/25 09:42 Oxygen Delivery Method Room Air 06/16/25 09:42 BMI result Body Mass Index 29.6 Assessment & Plan Assessment & Plan (1) Cervical spondylosis: Code(s): M47.812 - Spondylosis without myelopathy or radiculopathy, cervical region Category: Medical Plan Diagnostic medial branch block C4, C5, C6 bilateral.? ? ?Informed consent was explained to the patient. All questions were explained and? answered.? The patient was taken inside the operating room where she was positioned prone on the operating table. Time-out was performed delineating correct site, side, the nature of the procedure, patient's allergy, . All operating room staff was participating in OR time-out procedure. ? ? The the poserior neck and upper back was prepped with ChloraPrep and draped with sterile utility towels.? C-arm was brought over the operating field and sq picture of L4-, L5 vertebra and S1 AREA were delineated on the screen.? Point of interest were delineated as lateral masses of the above mentioned vertebrae bilaterally. The end points of needle advancements were chosen as the waistline on the silhouette?of the lateral masses bilaterally. The projection of the point of interest to the skin were injected with the small amount of local anesthetic lidocaine 2% mixed with ropivacaine 0.5% 1-1 approximately 1 cc.? After that 22 gauge 3.5 inch spinal needle was driven sequentially to the points of interest in tunnel vision fashion. After needles gently contacted the bone at the point of interests the needle was injected with small amount of the contrast.? The injection of the contrast did not demonstrate any intravascular or intrathecal spread of the contrast.? After that injection of the? ropivacaine 0.5%-1cc was performed at each needle location.?After that the needles were removed and Bandaids were applied. Orders: Orders FL guidance in treatment room 06/16/25 M47.812 - Spondylosis without myelopathy or radiculopathy, cervical region Coding Level of Care Code Procedure Only Diagnoses Cervical spondylosis M47.812
[2025-06-16 08:56] VITALS: BP 121/77; PULSE 63; RESP 16; O2SAT 99; BMI 29.6
[2025-06-16 09:42] VITALS: BP 143/78; PULSE 58; RESP 16; O2SAT 99
== END 2025-06-16 10:13 | disposition home or self-care (01) ==
LOC: HO.PMCPRC 08:50
PROVIDERS: PCP Nurse Practitioner Primary Care; Visit Provider Anesthesiology
DX: M47.812 Spondylosis without myelopathy or radiculopathy, cervical region (principal)
CPT/HCPCS: 64490; 64491; 64492

== ENCOUNTER 2025-06-19 10:12 | Outpatient (AMB) | payer MEDICAID, SELFPAY ==
--- NOTE | 2025-06-19 10:17 | MHC.OFFVIS ---
Vital Signs 06/19/25 10:25 Height 5 ft 3 in Weight 175 lb BMI 31.0 BP 138/77 Blood Pressure Location Lt brachial Position Sitting Respiration 18 Pulse 53 Pulse Source Pulse Oximeter Pulse Oximetry (%) 99 Oxygen Delivery Method Room Air Intake Visit Reasons: S/P BILATERAL DIAGNOSTIC C4-C5-C6 MBB Intake Note: Pain today 05/08 Natural Gas Engineer Required: Yes Natural Gas Engineer Language: Supervisor Prepress Services: Natural Gas Engineer Present Natural Gas Engineer Name: Kathryn Information Interpreted: non-clinical & clinical Accompanied by: Self / Same As Patient Allergies morphine Adverse Reaction (Verified 06/19/25 10:26) Abdominal Pain HPI Comments Details: The patient is a 60 year old individual presenting for follow-up of chronic neck pain secondary to osteoarthritis. The patient recently underwent bilateral diagnostic C4-C5-C6 medial branch blocks on 06/16/[address] Alonso. Following the injections, the patient experienced complete relief of neck pain for at least 24 hours, though reported a heavy sensation in the head the next day. The patient also reports bilateral shoulder pain, which is worse on the right, and believes it is related to the neck pain. Previous x-rays of the shoulders were normal. The patient has a history of bilateral carpal tunnel syndrome and is under the care of Hand Specialist, Dr. Gates. The patient reports waking up with headaches in the morning. Denies any recent cough, cold, infection, fever or any significant changes in medical history since last office visit. Past Procedures: 06/16/25: Bilateral Diagnostic C4-C5-C6 MBB-100% pain relief for 24 hours PRIOR: The patient is a 59-year-old female presenting with chronic shoulder and neck pain. Her primary concern is bilateral hand pain which she attributes to diabetic neuropathy and arthritis. I have informed patient that she also has moderate to severe bilateral carpal tunnel syndrome as indicated by a nerve conduction test last year. The pain often radiates up her upper arms, impairing her ability to perform daily functions and disturbing her sleep, especially at night. She also experiences pain due to arthritic changes and cervical disc degeneration in the neck, which is most painful when looking upward and to sides. The presence of diabetic polyneuropathy adds to her pain complexity. Despite using Tylenol, ibuprofen, and gabapentin for pain management, she reports limited relief and side effects affecting her quality of life. She has tried cyclobenzaprine in the past but reports it caused her significant drowsiness. Attempts at physical therapy have not been pursued consistently due to significant and disabling pain. Denies prevous hand, shoulder or spine surgery or injections or evaluation by Hand Specialist. - Pain onset: Chronic; significant for over a year - Quality and character: Moderate to severe; radiating from hands to neck; stabbing, tingling, numbness, burning, pinching, aching - Primary location: Hands, with radiation towards neck and shoulders; constant 04/08 - Exacerbating factors: Nighttime, specific neck movements (looking upward) - Relieving factors: None notably effective, tried wrist bracing, no relief - Interference: Daily activities, hand function, sleep - Affect: Pain impacts the patient's mood due to sleep disturbances and functional limitations - Analgesia: Currently using Tylenol, ibuprofen, gabapentin, though reports limited relief - Adverse Effects: Experience side effects impairing daily function - Activities of Daily Living: Pain hinders daily activities, particularly with hand functions and sleep - Aberrant Drug-Related Behaviors: No signs of medication misuse reported [facility] Medical History Bilateral hand pain Disc disease, degenerative, cervical Neuropathy Somnolence, daytime Flank pain RUQ abdominal pain Left foot pain COVID-19 Hepatitis C Rheumatoid arthritis Flank pain Renal stones Bipolar disorder Panic disorder Depression Anxiety Abdominal distension (gaseous) Asthma Hyperlipidemia 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 Mother Diabetes mellitus Sister Diabetes mellitus Brother No problems noted. Paternal Uncle Colon cancer Social History Household Members: None Housing: Apartment Do you presently have visiting nurse or other home services: Yes Alcohol intake: current Alcohol intake frequency: former alcohol drinker Alcohol type: beer Patient Tobacco Use Status: Former Tobacco user Tobacco use type: Cigarette Cigarettes Per Day: 2 Years Smoked: 15 service: No Review of Systems Const Details: - Musculoskeletal: Reports chronic neck pain and bilateral shoulder pain, worse on the right. - Neurological: Reports morning headaches and a sensation of head heaviness. - Extremities: Reports pain in the hands consistent with bilateral carpal tunnel syndrome. All systems reviewed & are unremarkable except as noted in HPI and below Physical Exam Vital Signs: Last Vital Signs Pulse 53 06/19/25 10:25 Resp 18 06/19/25 10:25 BP 138/77 06/19/25 10:25 Pulse Ox 99 06/19/25 10:25 Oxygen Delivery Method Room Air 06/19/25 10:25 BMI result Body Mass Index 31.0 General: Appears afebrile. Alert and oriented. Mood and affect appropriate. Follows and participates in conversation appropriately. Respiratory effort is unlabored. No cough. Able to transition from sit to stand unassisted. Ambulates with bilaterally normal heel strike and toe off. Neck Other: Patient with decreased cervical ROM in all planes/especially with bilateral lateral rotation. Reports increased pain with cervical extension. Spurling compression test negative. Pain is unchanged by Spurling maneuver with retraction. Elvey's tension test positive bilaterally, with radiation of pain from neck to wrist. Lhermitte's test was negative. DTRs diminished. Patient demonstrated 4/5 motor strength of bilateral upper extremities due to pain. 2 + radial pulses. Multiple taut bands palpated throughout bilateral upper trapezius muscles. +Tinel's, +Phalen's tests positive bilaterally. Neck: Yes normal visual inspection, Yes no lymphadenopathy, Yes supple, No anterior neck swelling, Yes no JVD, No prominent supraclavicular fat pad and Yes prominent dorsocervical fat pad Back/Spine/Pelvis Cervical Spine: No Lhermitte's sign positive, loss of normal cervical lordosis, cervical muscular tenderness, pain with cervical ROM, No Cervical spine scars present, cervical spasm (bilateral) and No Cervical spine tenderness Extrem Right upper extremity: shoulder/upper arm Details: normal to inspection, tenderness Location: over the subacromial bursa, normal ROM and warmth; no swelling, no ecchymosis and no crepitus Left upper extremity: shoulder/upper arm Details: inspection abnormal, tenderness Location: of the A-C joint and over the subacromial bursa and normal ROM; no ecchymosis, no crepitus and no unsual warmth Results Reviewed Results Reviewed: XR SHOULDER, RIGHT 09/23/24 CLINICAL INFORMATION: r/o AVN, question of AVN on XR from ED 09/03/24 COMPARISON: 09/01/24 chest x-ray. TECHNIQUE: AP external rotation, Grashey, scapular Y, and axillary views of the right shoulder. FINDINGS: Normal bone mineralization. No fracture, dislocation, or suspicious bone lesion. Normal alignment. The glenohumeral joint is normal. No evidence of AVN. The AC joint is normal. Mild spurring of the greater tuberosity. There is a neutral lateral acromion. No undersurface spurring. The subacromial space is preserved. Remainder of the soft tissue and bony structures appear normal. IMPRESSION: Essentially normal right shoulder. No evidence of AVN. XR SHOULDER, LEFT 09/23/24 CLINICAL INFORMATION: r/o AVN, question of AVN on XR from ED 09/03/24 COMPARISON: Chest x-ray dated 09/01/2024 TECHNIQUE: AP external rotation, Grashey, scapular Y, and axillary views of the left shoulder. FINDINGS: Normal bone mineralization. No fracture, dislocation, or suspicious bone lesion. Normal alignment. The glenohumeral joint is normal. No evidence of AVN. The AC joint is normal. Mild spurring of the greater tuberosity. There is a neutral lateral acromion. No undersurface spurring. The subacromial space is preserved. Remainder of the soft tissue and bony structures appear normal. IMPRESSION: Essentially normal left shoulder. No evidence of AVN. XR CERVICAL SPINE 09/23/24 CLINICAL INFORMATION: neck pain radiating to shoulders/arms COMPARISON: None available. TECHNIQUE: 6 views of the cervical spine, inclusive of flexion and extension views, were obtained. FINDINGS: No significant scoliosis. Normal lordosis. Normal sagittal alignment. No subluxations. No fracture, compression deformities, or suspicious bone lesions. Craniocervical junction and C1-2 articulation intact and aligned. Mild degenerative disc change C3-C7, without significant loss of disc height. Normal facet alignment. No significant facet arthrosis. Oblique views demonstrate no significant bony neural foraminal narrowing bilaterally. Prevertebral soft tissues are normal. There are bilateral mild carotid bulb calcifications. Imaged lung apices clear. IMPRESSION: 1. No acute finding of the cervical spine. 2. Mild multilevel disc degeneration. NE electromyogram (EMG); NE nerve conduction velocity 05/01/24 FINDINGS: Bilateral median motor nerves showed prolonged distal latency, normal amplitude and normal conduction velocity. Right median sensory nerve showed prolonged peak latency and small amplitude. Left median sensory nerve showed prolonged peak latency. Bilateral radial sensory nerves no response. All other nerves tested were within normal. Concentric needle EMG was performed in selected muscles of the bilateral upper extremities. Study did not reveal signs of electric abnormalities as shown in the table above. IMPRESSION: 1. This is an abnormal study. 2. There is electrodiagnostic evidence for bilateral moderate-severe median neuropathy at the wrist, consistent with carpal tunnel syndrome. 3. There is no electrodiagnostic evidence for ulnar neuropathy, brachial plexopathy, or cervical radiculopathy. 4. Absent radial sensory nerves could be consistent with underlying diabetic polyneuropathy. Assessment & Plan Assessment & Plan (1) Chronic headaches: Code(s): R51.9 - Headache, unspecified; G89.29 - Other chronic pain Category: Medical (2) Cervical spondylosis: Code(s): M47.812 - Spondylosis without myelopathy or radiculopathy, cervical region Category: Medical (3) Disc disease, degenerative, cervical: Code(s): M50.30 - Other cervical disc degeneration, unspecified cervical region Category: Medical (4) Bilateral shoulder pain: Code(s): M25.511 - Pain in right shoulder; M25.512 - Pain in left shoulder Category: Medical Plan Given the successful diagnostic response to bilateral C4-C5-C6 medial branch blocks, further intervention is warranted. The options of radiofrequency ablation (RFA) and the Sprint peripheral nerve stimulation system were discussed. The patient was informed that insurance may require a repeat set of diagnostic injections prior to authorizing RFA, which the patient declined. The patient has elected to proceed with the Sprint procedure, which will begin on the right side. We discussed Sprint PNS device care and weekly dressing changes for a duration of two months. Schedule Bilateral C4 medial branch Sprint PNS placement with local, oral sedation and fluoroscopy, starting with right side, followed by left side in 2 weeks. Expectations, risks and benefits were reviewed. Patient is aware she will be contacted to schedule this procedure. The patient was counseled on lifestyle modifications, including the importance of exercise, stretching, and maintaining good posture to address posterior neck hump, limited ROM due to pain and obesity and associated headaches. For the bilateral carpal tunnel syndrome, the patient was advised to continue following up with Dr. Gates. All questions and concerns have been answered and patient agreed with the treatment plan. Follow up after Sprint placement and sooner as needed. Patient was informed and verbally consented to the use of an ambient scribe for clinic note documentation during this visit. Coding Level of Care Code Est Pt Level 3 (16917) Complex visit Add On G2211 Diagnoses Chronic headaches R51.9; G89.29 Cervical spondylosis M47.812 Disc disease, degenerative, cervical M50.30 Bilateral shoulder pain M25.511; M25.512
[2025-06-19 10:25] VITALS: BP 138/77; PULSE 53; RESP 18; O2SAT 99; BMI 31.0
--- OUTSIDE RECORDS SUMMARY | 2025-06-19 10:48 | XMS_ITS | Encounter Summary ---
Author Organization [email or web address] Address [address] [place] [address] 7[address] [place] [address] Care Team Providers Care Astrochemist Name Role Phone Wanda Bonilla Primary Care Provider [phone] Rajni García RN Unavailable [phone] April Michele MD Unavailable [phone] Lee Hubbard MD Unavailable [phone] Rajni García RN Unavailable [phone] La Haddad Unavailable Reason for Visit * Reason Onset Date Comments triage 07/13/2022 Encounter Details Date Type Department Care Team (Late st Contact Info) Description 07/13/2022 Telephone [facility] [address] [place], [place] [phone] Wanda Bonilla ANP [address] [place] [address] triage Social History Tobacco Use Types Packs/Day [...] caller The caller accepted this outcome speaks irish documented in this encounter Plan of Treatment Upcoming Encounters Date Type Department Care Team (Late st Contact Info) Description 07/02/2025 1:00 PM EST Office Visit [facility] [address] [place] [address] Wanda Bonilla ANP [address] [place] [address] 09/08/2025 1:30 PM EST Office Visit [facility] [address] [place] [address] Tyler, Smiley, OD [address] [place] [address] documented as of this encounter Visit Diagnoses Not on filedocumented in this encounter Care Teams Astrochemist Relationship Specialty Start Date End Date Wanda Bonilla ANP [address] [place] [address] PCP - General Family Medicine 09/03/20 Rajni García RN [address] [facility] [place] [address] District RangerSwimming Professor 09/18/24 12/15/24 April Michele MD [address] [facility] [address] [place] [address] Referring Physician Infectious Diseases 10/09/24 Lee Hubbard MD [address] [place] [address] Urology 10/09/24 Rajni García, TIM [address] [place] [address] Registered Nurse Family Medicine 05/13/25 La Haddad 05/13/25 [facility] cardiology 11/12/23 documented as of this encounter
--- OUTSIDE RECORDS SUMMARY | 2025-06-19 10:48 | XMS_ITS | Encounter Summary ---
Author Organization [employer] Address [address] [facility] 7t [place] [address] Care Team Providers Care Evaluation Manager Name Role Phone Wanda Bonilla Primary Care Provider [phone] Rajni García RN Unavailable [phone] April Michele MD Unavailable [phone] Lee Hubbard MD Unavailable [phone] Rajni García RN Unavailable La Haddad Unavailable Reason for Visit * Reason Onset Date Comments Med Refill 10/01/2023 Encounter Details Date Type Department Care Team (Late st Contact Info) Description 10/01/2023 Telephone [facility] [address] [place], [place] [phone] Wanda Bonilla ANP [address] [place], [place] [phone] Med Refill Social History Tobacco Use Types [...] encounter Miscellaneous Notes * Telephone Encounter - Nuvai Guardado LPN - 10/01/2023 9:34 AM EST Medication pended to PCP. * Telephone Encounter - Antonio Haddad - 10/01/2023 9:18 AM EST TC from pt requesting medication refill. Medications needing refill: naproxen (Naprosyn) 250 MG tablet To be sent to: [facility] pharmacy documented in this encounter Plan of Treatment Upcoming Encounters Date Type Department Care Team (Late st Contact Info) Description 07/02/2025 1:00 PM EST Office Visit [facility] [address] [place], [place] [phone] Wanda Bonilla ANP [address] [place] [address] 09/08/2025 1:30 PM EST Office Visit [facility] [address] [place], [place] [phone] Smiley Scott, JUDITH [address] [place] [address] documented as of this encounter Visit Diagnoses Not on filedocumented in this encounter Additional Health Concerns Assessment Noted Time PHQ-9 Depression Total Score: 0 08/25/19 23 1:48 PM EST documented as of this encounter Care Teams Evaluation Manager Relationship Specialty Start Date End Date Wanda Bonilla ANP [address] [facility] [place] [address] PCP - General Family Medicine 09/03/20 Rajni García, RN [address] [facility] [place] [address] Tooth Cutter ClutchToggle Press Folder And Feeder 09/18/24 12/15/24 April Michele MD [address] [facility] [address] [place] [address] Referring Physician Infectious Diseases 10/09/24 Lee Hubbard MD [address] [place] [address] Urology 10/09/24 Rajni García, RN [address] [facility] [place] [address] Registered Nurse Family Medicine 05/13/25 La Haddad 05/13/25 [facility] cardiology 11/12/23 documented as of this encounter
--- OUTSIDE RECORDS SUMMARY | 2025-06-19 10:48 | XMS_ITS | Encounter Summary ---
Author Organization [employer] Address [address] [facility] 7t [place] [address] Care Team Providers Care Brace Maker Name Role Phone Irene Wanda HARO Primary Care Provider Rajni García RN Unavailable [phone] April Michele MD Unavailable [phone] Lee Hubbard MD Unavailable Rajni García RN Unavailable [phone] La Haddad Unavailable Reason for Visit * Reason Comments Med Refill Encounter Details Date Type Department Care Team (Late st Contact Info) Description 03/14/2024 Refill [facility] [address] [place], [place] [phone] Shivani Small CNM [address] [place] [address] Social History Tobacco Use Types Packs/Day Years [...] the past 12 months, has t he Book Buyback, gas, oil or water TeamVisibility threatened to shut off services in your [...] Description 07/02/2025 1:00 PM EST Office Visit [facility] [address] [place] [address] Wanda Bonilla ANP [address] [place] [address] 09/08/2025 1:30 PM EST Office Visit [facility] [address] [place], [place] [phone] Tyler, Smiley, OD 230 [place] [address] documented as of this encounter Visit Diagnoses Not on filedocumented in this encounter Additional Health Concerns Assessment Noted Time PHQ-9 Depression Total Score: 5 11/23/19 24 1:33 PM EDT documented as of this encounter Care Teams Brace Maker Relationship Specialty Start Date End Date Wanda Bonilla ANP [address] [place] [address] PCP - General Family Medicine 09/03/20 Rajni García RN 505 [place] [address] Network SupportRiprap Worker 09/18/24 12/15/24 April Michele MD [address] [facility] [address] [place] [address] Referring Physician Infectious Diseases 10/09/24 Lee Hubbard MD [address] [place] [address] Urology 10/09/24 Rajni García RN 505 [place] [address] Registered Nurse Family Medicine 05/13/25 La Haddad 05/13/25 [facility] cardiology 11/12/23 documented as of this encounter
--- OUTSIDE RECORDS SUMMARY | 2025-06-19 10:48 | XMS_ITS | Encounter Summary ---
Author Organization [employer] Address [address] [facility] 7t [place] [address] Care Team Providers Care Medical Nurse Name Role Phone Wanda Bonilla Primary Care Provider Rajni García RN Unavailable [phone] April Michele MD Unavailable [phone] Lee Hubbard MD Unavailable [phone] Rajni García RN Unavailable [phone] La Haddad Unavailable Reason for Visit * Reason Onset Date Comments Hospital Follow-up 11/15/2023 Encounter Details Date Type Department Care Team (Late st Contact Info) Description 11/15/2023 Telephone [facility] 230 [place], [place] [phone] Wanda Bonilla ANP [address] [place], [place] [phone] Hospital Follow-up Social History Tobacco Use Types [...] from pt requesting a HDF appt. Hospital: [facility] Date of admission: 11/09 Discharge date: 11/13 Diagnosed: Neuropathy documented in this encounter Plan of Treatment Upcoming Encounters Date Type Department Care Team (Late st Contact Info) Description 07/02/2025 1:00 PM EST Office Visit [facility] [address] [place] [address] Wanda Bonilla ANP [address] [place] [address] 09/08/2025 1:30 PM EST Office Visit [facility] [address] [place] [address] Smiley Scott, JUDITH 230 [place] [address] documented as of this encounter Visit Diagnoses Not on filedocumented in this encounter Additional Health Concerns Assessment Noted Time PHQ-9 Depression Total Score: 0 08/25/19 23 1:48 PM EST documented as of this encounter Care Teams Medical Nurse Relationship Specialty Start Date End Date Wanda Bonilla ANP [address] [place] [address] PCP - General Family Medicine 09/03/20 Rajni García, RN [address] [place] [address] Respiratory Therapy AideConstruction Carpenters Helper 09/18/24 12/15/24 April Michele MD [address] [facility] [address] [place] [address] Referring Physician Infectious Diseases 10/09/24 Lee Hubbard MD [address] [place] [address] Urology 10/09/24 Rajni García RN [address] [place] [address] Registered Nurse Family Medicine 05/13/25 La Haddad 05/13/25 [facility] cardiology 11/12/23 documented as of this encounter
--- OUTSIDE RECORDS SUMMARY | 2025-06-19 10:48 | XMS_ITS | Encounter Summary ---
Author Organization [employer] Address [address] [facility] [address] [place] [address] Care Team Providers Care Customer Service Advisor Name Role Phone Irene Wanda HARO Primary Care Provider [phone] Rajni García RN Unavailable [phone] April Michele MD Unavailable [phone] Lee Hubbard MD Unavailable [phone] Rajni García RN Unavailable [phone] La Haddad Unavailable Encounter Details Date Type Department Care Team (Late st Contact Info) Description 08/14/2024 Telephone [facility] 230 [place], [place] [phone] Adolfo Fernando, VishnuD Social History Tobacco Use [...] 07/02/2025 1:00 PM EST Office Visit [facility] [address] [place] [address] Wanda Bonilla ANP [address] [place] [address] 09/08/2025 1:30 PM EST Office Visit [facility] [address] [place] [address] Smiley Scott OD 230 [place] [address] documented as of this encounter Visit Diagnoses Not on filedocumented in this encounter Additional Health Concerns Assessment Noted Time PHQ-9 Depression Total Score: 5 11/23/19 1:33 PM EDT documented as of this encounter Care Teams Customer Service Advisor Relationship Specialty Start Date End Date Wanda Bonilla ANP [address] [place] [address] PCP - General Family Medicine 09/03/20 Rajni García RN [address] [place] [address] Web ProducerProject Management Professor 09/18/24 12/15/24 April Michele MD [address] [facility] [address] [place] [address] Referring Physician Infectious Diseases 10/09/24 Lee Hubbard MD [address] [place] [address] Urology 10/09/24 Rajni García RN [address] [place] [address] Registered Nurse Family Medicine 05/13/25 La Haddad 05/13/25 [facility] cardiology 11/12/23 documented as of this encounter
--- OUTSIDE RECORDS SUMMARY | 2025-06-19 10:48 | XMS_ITS | Encounter Summary ---
Author Organization [email or web address] Address [address] [facility] 7t [place] [address] Care Team Providers Care Petal Cutter Name Role Phone Irene Wanda HARO Primary Care Provider Rajni García RN Unavailable [phone] April Michele MD Unavailable [phone] Lee Hubbard MD Unavailable Rajni García RN Unavailable [phone] La Haddad Unavailable Reason for Visit * Reason Comments Med Refill Encounter Details Date Type Department Care Team (Late st Contact Info) Description 12/03/2023 Telephone [facility] MEDICINE 230 [place], [place] [phone] Shelli Vo MD 230 [place], [place] [phone] Med Refill Social History Tobacco Use Types [...] the past 12 months, has t he [employer], gas, oil or water company threatened to [...] Description 07/02/2025 1:00 PM EST Office Visit [facility] MEDICINE 230 [place] [address] Wanda Bonilla, TAHIR 230 [place] [address] 09/08/2025 1:30 PM EST Office Visit [facility] OPTOMETRY [address] [place] [address] Smiley Scott, JUDITH 230 [place] [address] documented as of this encounter Visit Diagnoses Diagnosis Asthma, unspecified asthma severity, unspecified whether complicated, unspecified whether persistent documented in this encounter Additional Health Concerns Assessment Noted Time PHQ-9 Depression Total Score: 5 11/23/19 24 1:33 PM EDT documented as of this encounter Care Teams Petal Cutter Relationship Specialty Start Date End Date Wanda Bonilla ANP 230 [place] [address] PCP - General Family Medicine 09/03/20 Rajni García, RN 505 [place] [address] Drawing TenderCherry Cutter 09/18/24 12/15/24 April Michele MD [address] [facility] [address] [place] [address] Referring Physician Infectious Diseases 10/09/24 Lee Hubbard MD [address] [place] [address] Urology 10/09/24 Rajni García, TIM 505 [place] [address] Registered Nurse Family Medicine 05/13/25 La Haddad 05/13/25 [facility] cardiology 11/12/23 documented as of this encounter
--- OUTSIDE RECORDS SUMMARY | 2025-06-19 10:48 | XMS_ITS | Encounter Summary ---
Author Organization [employer] Address [address] [place] [address] 7t [place] [address] Care Team Providers Care Offal Roller Name Role Phone Wanda Bonilla Primary Care Provider Rajni García RN Unavailable [phone] April Michele MD Unavailable [phone] Lee Hubbard MD Unavailable [phone] Rajni García RN Unavailable [phone] La Haddad Unavailable Reason for Visit * Reason Comments Med Refill Encounter Details Date Type Department Care Team (Late st Contact Info) Description 01/11/2023 Refill [facility] MEDICINE 230 [place], [place] [phone] Wanda Bonilla ANP 230 [place], [place] [phone] Social History Tobacco Use Types Packs/Day Years [...] EST Office Visit [facility] MEDICINE 230 [place] [address] Wanda Bonilla ANP 230 [place] [address] 09/08/2025 1:30 PM EST Office Visit [facility] OPTOMETRY [address] [place] [address] Tyler, Smiley, OD 230 [place] [address] documented as of this encounter Visit Diagnoses Not on filedocumented in this encounter Additional Health Concerns Assessment Noted Time PHQ-9 Depression Total Score: 0 08/25/19 23 1:48 PM EST documented as of this encounter Care Teams Offal Roller Relationship Specialty Start Date End Date Wanda Bonilla ANP 230 [place] [address] PCP - General Family Medicine 09/03/20 Rajni García, TIM 505 [place] [address] Events Administrative AssistantCustomer Orders Clerk 09/18/24 12/15/24 April Michele MD [address] [facility] [address] [place] [address] Referring Physician Infectious Diseases 10/09/24 Lee Hubbard MD [address] [place] [address] Urology 10/09/24 Rajni García, TIM 505 [place] [address] Registered Nurse Family Medicine 05/13/25 La Haddad 05/13/25 [facility] cardiology 11/12/23 documented as of this encounter
--- OUTSIDE RECORDS SUMMARY | 2025-06-19 10:48 | XMS_ITS | Encounter Summary ---
Author Organization [employer] Address [address] [place] [address] 7t [place] [address] Care Team Providers Care Reinsurance Clerk Name Role Phone Irene Wanda HARO Primary Care Provider Rajni García RN Unavailable [phone] April Michele MD Unavailable [phone] Lee Hubbard MD Unavailable Rajni García RN Unavailable [phone] La Haddad Unavailable Reason for Visit * Reason Comments Med Refill Encounter Details Date Type Department Care Team (Late st Contact Info) Description 04/03/2023 Refill [facility] MEDICINE 230 [place], [place] [phone] Brenda Lopez MD 230 [place], [place] [phone] Social History Tobacco Use Types Packs/Day Years [...] 1:00 PM EST Office Visit [facility] MEDICINE 230 [place] [address] Wanda Bonilla ANP 230 [place] [address] 09/08/2025 1:30 PM EST Office Visit [facility] OPTOMETRY [address] [place] [address] Smiley Scott, OD 230 [place] [address] documented as of this encounter Visit Diagnoses Not on filedocumented in this encounter Additional Health Concerns Assessment Noted Time PHQ-9 Depression Total Score: 0 08/25/19 23 1:48 PM EST documented as of this encounter Care Teams Reinsurance Clerk Relationship Specialty Start Date End Date Wanda Bonilla ANP 230 [place] [address] PCP - General Family Medicine 09/03/20 Rajni García RN 505 [place] [address] Choir LeaderChief Technician 09/18/24 12/15/24 April Michele MD [address] [facility] [address] [place] [address] Referring Physician Infectious Diseases 10/09/24 Lee Hubbard MD [address] [place] [address] Urology 10/09/24 Rajni García RN 505 [place] [address] Registered Nurse Family Medicine 05/13/25 La Haddad 05/13/25 [facility] [place] [facility] cardiology 11/12/23 documented as of this encounter
--- OUTSIDE RECORDS SUMMARY | 2025-06-19 10:48 | XMS_ITS | Encounter Summary ---
Author Organization [employer] Address [address] [facility] 7t [place] [address] Care Team Providers Care Electrical Unit Rebuilder Name Role Phone Wanda Bonilla Primary Care Provider [phone] Rajni García RN Unavailable [phone] April Michele MD Unavailable [phone] Lee Hubbard MD Unavailable [phone] Rajni García RN Unavailable [phone] La Haddad Unavailable Encounter Details Date Type Department Care Team (Late st Contact Info) Description 08/28/2023 Orders [address] [facility] MEDICINE 230 [place], [place] [phone] Wanda Bonilla ANP 230 [place], [place] [phone] Social History Tobacco Use Types Packs/Day Years [...] 1:00 PM EST Office Visit [facility] MEDICINE 230 [place] [address] Wanda Bonilla ANP 230 [place] [address] 09/08/2025 1:30 PM EST Office Visit [facility] OPTOMETRY [address] [place] [address] Tyler, Smiley, OD 230 [place] [address] documented as of this encounter Visit Diagnoses Not on filedocumented in this encounter Additional Health Concerns Assessment Noted Time PHQ-9 Depression Total Score: 0 08/25/19 23 1:48 PM EST documented as of this encounter Care Teams Electrical Unit Rebuilder Relationship Specialty Start Date End Date Wanda Bonilla ANP 230 [place] [address] PCP - General Family Medicine 09/03/20 Rajni García RN 505 [place] [address] Adult PsychiatristNet Manager 09/18/24 12/15/24 April Michele MD [address] [facility] [address] [place] [address] Referring Physician Infectious Diseases 10/09/24 Lee Hubbard MD [address] [place] [address] Urology 10/09/24 Rajni García RN 505 [place] [address] Registered Nurse Family Medicine 05/13/25 La Haddad 05/13/25 [facility] cardiology 11/12/23 documented as of this encounter
--- OUTSIDE RECORDS SUMMARY | 2025-06-19 10:48 | XMS_ITS | Encounter Summary ---
Author Organization [employer] Address [address] [facility] 7t [place] [address] Care Team Providers Care It Infrastructure Project Manager Name Role Phone Wanda Bonilla Primary Care Provider Rajni García RN Unavailable [phone] April Michele MD Unavailable [phone] Lee Hubbard MD Unavailable [phone] Rajni García RN Unavailable [phone] La Haddad Unavailable Reason for Visit * Reason Onset Date Comments Appointment Request 06/12/2023 Encounter Details Date Type Department Care Team (Late st Contact Info) Description 06/12/2023 Telephone [facility] MEDICINE 230 [place], [place] [phone] Wanda Bonilla ANP 230 [place], [place] [phone] Appointment Request Social History Tobacco Use Types [...] 1:00 PM EST Office Visit [facility] MEDICINE 230 [place] [address] Wanda Bonilla ANP 230 [place] [address] 09/08/2025 1:30 PM EST Office Visit [facility] OPTOMETRY [address] [place] [address] Tyler, Smiley, OD 230 [place] [address] documented as of this encounter Visit Diagnoses Not on filedocumented in this encounter Additional Health Concerns Assessment Noted Time PHQ-9 Depression Total Score: 0 08/25/19 23 1:48 PM EST documented as of this encounter Care Teams It Infrastructure Project Manager Relationship Specialty Start Date End Date Wanda Bonilla ANP 230 [place] [address] PCP - General Family Medicine 09/03/20 Rajni García, RN 505 [place] [address] Radio Antenna InstallerJail Officer 09/18/24 12/15/24 April Michele MD [address] [facility] [address] [place] [address] Referring Physician Infectious Diseases 10/09/24 Lee Hubbard MD [address] [facility] [address] [place] [address] Urology 10/09/24 Rajni García, TIM 505 [place] [address] Registered Nurse Family Medicine 05/13/25 La Haddad 05/13/25 [facility] cardiology 11/12/23 documented as of this encounter
--- OUTSIDE RECORDS SUMMARY | 2025-06-19 10:48 | XMS_ITS | Encounter Summary ---
Author Organization [employer] Address [address] [facility] 7t [place] [address] Care Team Providers Care Chairman And Ceo Name Role Phone Irene Wanda HARO Primary Care Provider Rajni García RN Unavailable [phone] April Michele MD Unavailable [phone] Lee Hubbard MD Unavailable [phone] Rajni García RN Unavailable [phone] La Haddad Unavailable Reason for Visit * Reason Comments Med Refill Encounter Details Date Type Department Care Team (Late st Contact Info) Description 03/20/2024 Refill [facility] MEDICINE 230 [place], [place] [phone] Shivani Small CNM 230 [place], [place] [phone] Social History Tobacco Use Types Packs/Day Years [...] the past 12 months, has t he [employer], gas, oil or water [employer] threatened to shut off services in your [...] 1:00 PM EST Office Visit [facility] MEDICINE 230 [place] [address] Wanad Bonilla ANP 230 [place] [address] 09/08/2025 1:30 PM EST Office Visit [facility] OPTOMETRY [address] [place], [place] [phone] Tyler, Smiley, OD 230 [place] [address] documented as of this encounter Visit Diagnoses Not on filedocumented in this encounter Additional Health Concerns Assessment Noted Time PHQ-9 Depression Total Score: 5 11/23/19 24 1:33 PM EDT documented as of this encounter Care Teams Chairman And Ceo Relationship Specialty Start Date End Date Wanda Bonilla ANP 230 [place] [address] PCP - General Family Medicine 09/03/20 Rajni García RN 505 [place] [address] Security ProfessionalsCotton Presser 09/18/24 12/15/24 April Michele MD [address] [facility] [address] [place] [address] Referring Physician Infectious Diseases 10/09/24 Lee Hubbard MD [address] [place] [address] Urology 10/09/24 Rajni García RN 505 [place] [address] Registered Nurse Family Medicine 05/13/25 La Haddad 05/13/25 [facility] cardiology 11/12/23 documented as of this encounter
--- OUTSIDE RECORDS SUMMARY | 2025-06-19 10:48 | XMS_ITS | Encounter Summary ---
Author Organization [employer] Address [address] [place] [address] 7t [place] [address] Care Team Providers Care Video Game Script Writer Name Role Phone Wanda Bonilla Primary Care Provider Rajni García RN Unavailable [phone] April Michele MD Unavailable [phone] Lee Hubbard MD Unavailable Rajni García RN Unavailable [phone] La Haddad Unavailable Encounter Details Date Type Department Care Team (Late st Contact Info) Description 08/09/2022 Orders Only [facility] MEDICINE [address] [place] [phone] Shanna Lopez LPN Social History Tobacco Use [...] 07/02/2025 1:00 PM EST Office Visit [facility] MEDICINE 230 [place], [place] [phone] Wanda Bonilla ANP 230 [place] [address] 09/08/2025 1:30 PM EST Office Visit [facility] OPTOMETRY [address] [place] [address] [phone] Smiley Scott, OD 230 [place] [address] documented as of this encounter Visit Diagnoses Not on filedocumented in this encounter Care Teams Video Game Script Writer Relationship Specialty Start Date End Date Wanda Bonilla ANP 230 [place] [address] PCP - General Family Medicine 09/03/20 Rajni García, RN 505 [place] [address] Wireless Sales AssociateSnowboard Instructor 09/18/24 12/15/24 April Michele MD [address] [facility] [address] [place] [address] Referring Physician Infectious Diseases 10/09/24 Lee Hubbard MD [address] [place] [address] Urology 10/09/24 Rajni García, TIM 505 [place] [address] Registered Nurse Family Medicine 05/13/25 La Haddad 05/13/25 [facility] cardiology 11/12/23 documented as of this encounter
--- OUTSIDE RECORDS SUMMARY | 2025-06-19 10:48 | XMS_ITS | Encounter Summary ---
Author Organization [employer] Address [address] [place] [address] 7t [place] [address] Care Team Providers Care Setter Up Name Role Phone Wanda Bonilla Primary Care Provider [phone] Rajni García RN Unavailable [phone] April Michele MD Unavailable [phone] Lee Hubbard MD Unavailable [phone] Rajni García RN Unavailable [phone] La Haddad Unavailable Reason for Visit * Reason Onset Date Comments Referral 08/30/2022 Encounter Details Date Type Department Care Team (Late st Contact Info) Description 08/30/2022 Telephone [facility] MEDICINE 230 [place], [place] [phone] Wanda Bonilla ANP 230 [place], [place] [phone] Referral Social History Tobacco Use Types Packs/Day [...] see a neurologist Please contact pt at [phone] documented in this encounter Plan of Treatment Upcoming Encounters Date Type Department Care Team (Late st Contact Info) Description 07/02/2025 1:00 PM EST Office Visit [facility] MEDICINE 230 [place] [address] Wanda Bonilla ANP 230 [place] [address] 09/08/2025 1:30 PM EST Office Visit [facility] OPTOMETRY [address] [place] [address] Tyler, Smiley, OD 230 [place] [address] documented as of this encounter Visit Diagnoses Not on filedocumented in this encounter Additional Health Concerns Assessment Noted Time PHQ-9 Depression Total Score: 0 08/25/19 23 1:48 PM EST documented as of this encounter Care Teams Setter Up Relationship Specialty Start Date End Date Wanda Bonilla ANP 230 [place] [address] PCP - General Family Medicine 09/03/20 Rajni García, TIM 505 [place] [address] Greeting Card MakerWebsite Project Manager 09/18/24 12/15/24 April Michele MD [address] [address] Referring Physician Infectious Diseases 10/09/24 Lee Hubbard MD [address] [place] [address] Urology 10/09/24 Rajni García RN 505 [place] [address] Registered Nurse Family Medicine 05/13/25 La Haddad 05/13/25 [facility] cardiology 11/12/23 documented as of this encounter
--- OUTSIDE RECORDS SUMMARY | 2025-06-19 10:48 | XMS_ITS | Encounter Summary ---
Author Organization [employer] Address 75 [facility] 7t [place] [address] Care Team Providers Care Microbiology Director Name Role Phone Wanda Bonilla Primary Care Provider [phone] Rajni García RN Unavailable [phone] April Michele MD Unavailable [phone] Lee Hubbard MD Unavailable Rajni García RN Unavailable [phone] La Haddad Unavailable Reason for Visit * Reason Comments Med Refill Encounter Details Date Type Department Care Team (Late st Contact Info) Description 08/03/2024 Refill [facility] MEDICINE 230 [place], [place] [phone] Wanda Bonilla ANP 230 [place], [place] [phone] Essential hypertension Social History Tobacco Use Types [...] the past 12 months, has t he [employer], gas, oil or water company threatened to [...] [facility] MEDICINE 230 [place] [address] Wanda Bonilla ANP 230 [place] [address] 09/08/2025 1:30 PM EST Office Visit [facility] OPTOMETRY [address] [place] [address] Tyler, Smiley, OD 230 [place] [address] documented as of this encounter Visit Diagnoses Diagnosis Essential hypertension Unspecified essential hypertension documented in this encounter Additional Health Concerns Assessment Noted Time PHQ-9 Depression Total Score: 5 11/23/19 24 1:33 PM EDT documented as of this encounter Care Teams Microbiology Director Relationship Specialty Start Date End Date Wanda Bonilla ANP 230 [place] [address] PCP - General Family Medicine 09/03/20 Rajni García RN 505 [place] [address] Flat Lock OperatorIntern Architect 09/18/24 12/15/24 April Michele MD [address] [facility] [address] [place] [address] Referring Physician Infectious Diseases 10/09/24 Lee Hubbard MD [address] [place] [address] Urology 10/09/24 Rajni García RN 505 [place] [address] Registered Nurse Family Medicine 05/13/25 La Haddad 05/13/25 [facility] cardiology 11/12/23 documented as of this encounter
--- OUTSIDE RECORDS SUMMARY | 2025-06-19 10:48 | XMS_ITS | Encounter Summary ---
Author Organization [employer] Address 75 [facility] 7t [place] [address] Care Team Providers Care Conservation Scientist Name Role Phone Wanda Bonilla Primary Care Provider [phone] Rajni García RN Unavailable [phone] April Michele MD Unavailable [phone] Lee Hubbard MD Unavailable [phone] Rajni García RN Unavailable [phone] La Haddad Unavailable Reason for Visit * Reason Comments Med Refill Encounter Details Date Type Department Care Team (Late st Contact Info) Description 11/05/2023 Refill [facility] MEDICINE 230 [place], [place] [phone] Wanda Bonilla ANP 230 [place], [place] [phone] Social History Tobacco Use Types Packs/Day Years [...] Description 07/02/2025 1:00 PM EST Office Visit [facility] MEDICINE 230 [place] [address] Wanda Bonilla ANP 230 [place] [address] 09/08/2025 1:30 PM EST Office Visit [facility] OPTOMETRY [address] [place] [address] Tyler, Smiley, OD 230 [place] [address] documented as of this encounter Visit Diagnoses Not on filedocumented in this encounter Additional Health Concerns Assessment Noted Time PHQ-9 Depression Total Score: 0 08/25/19 23 1:48 PM EST documented as of this encounter Care Teams Conservation Scientist Relationship Specialty Start Date End Date Wanda Bonilla ANP 230 [place] [address] PCP - General Family Medicine 09/03/20 Rajni García RN 505 [place] [address] Watcher Lookout TowerStone Engraver 09/18/24 12/15/24 April Michele MD 575 [facility] [address] [place] [address] Referring Physician Infectious Diseases 10/09/24 Lee Hubbard MD 10 [facility] [address] [place] [address] Urology 10/09/24 Rajni García, TIM 505 [place] [address] Registered Nurse Family Medicine 05/13/25 La Haddad 05/13/25 [facility] cardiology 11/12/23 documented as of this encounter
--- OUTSIDE RECORDS SUMMARY | 2025-06-19 10:48 | XMS_ITS | Encounter Summary ---
Author Organization [employer] Address [address] [place] [address] 7t [place] [address] Care Team Providers Care Compounding Technician Name Role Phone Wanda Bonilla Primary Care Provider [phone] Rajni García RN Unavailable [phone] April Michele MD Unavailable [phone] Lee Hubbard MD Unavailable Rajni García RN Unavailable [phone] La Haddad Unavailable Reason for Visit * Reason Onset Date Comments Returning Call 01/08/2024 Encounter Details Date Type Department Care Team (Late st Contact Info) Description 01/08/2024 Telephone [facility] MEDICINE 230 [place], [place] [phone] Wanda Bonilla ANP 230 [place], [place] [phone] Returning Call Social History Tobacco Use Types [...] the past 12 months, has t he [employer], gas, oil or water company threatened to [...] pt stated she received a call from personal care assistant regarding new program in [facility], underwriter did not see anything documented but advised will forward message. documented in this encounter Plan of Treatment Upcoming Encounters Date Type Department Care Team (Late st Contact Info) Description 07/02/2025 1:00 PM EST Office Visit [facility] MEDICINE 230 [place] [address] Wanda Bonilla, ANP 230 [place] [address] 09/08/2025 1:30 PM EST Office Visit [facility] OPTOMETRY [address] [place] [address] Smiley Scott, OD 230 [place] [address] documented as of this encounter Visit Diagnoses Not on filedocumented in this encounter Additional Health Concerns Assessment Noted Time PHQ-9 Depression Total Score: 5 11/23/19 24 1:33 PM EDT documented as of this encounter Care Teams Compounding Technician Relationship Specialty Start Date End Date Wanda Bonilla ANP 230 [place] [address] PCP - General Family Medicine 09/03/20 Rajni García, TIM 505 [place] [address] Burglar Alarm InstallerPharmacy Resource Tech 09/18/24 12/15/24 April Michele MD 575 [facility] [address] [place] [address] Referring Physician Infectious Diseases 10/09/24 Lee Hubbard MD [address] [place] [address] Urology 10/09/24 Rajni García, TIM 505 [place] [address] Registered Nurse Family Medicine 05/13/25 La Haddad 05/13/25 [facility] cardiology 11/12/23 documented as of this encounter
--- OUTSIDE RECORDS SUMMARY | 2025-06-19 10:48 | XMS_ITS | Encounter Summary ---
Author Organization [employer] Address [address] [facility] 7t [place] [address] Care Team Providers Care Flat Hammerer Name Role Phone Wanda Bonilla Primary Care Provider Rajni García RN Unavailable [phone] April Michele MD Unavailable [phone] Lee Hubbard MD Unavailable Rajni García RN Unavailable [phone] La Haddad Unavailable Reason for Visit * Reason Onset Date Comments Med Refill 08/28/2023 Encounter Details Date Type Department Care Team (Late st Contact Info) Description 08/28/2023 Telephone [facility] MEDICINE [address] [place], [place] [phone] Wanda Bonilla ANP [address] [place], [place] [phone] Med Refill Social History Tobacco Use Types [...] MG/1.5ML solution pen-injector To be sent to: [facility] documented in this encounter Plan of Treatment Upcoming Encounters Date Type Department Care Team (Late st Contact Info) Description 07/02/2025 1:00 PM EST Office Visit [facility] MEDICINE [address] [place], [place] [phone] Wanda Bonilla ANP [address] [place] [address] 09/08/2025 1:30 PM EST Office Visit [facility] OPTOMETRY [address] [place] [address] Smiley Scott, OD [address] [place] [address] documented as of this encounter Visit Diagnoses Not on filedocumented in this encounter Additional Health Concerns Assessment Noted Time PHQ-9 Depression Total Score: 0 08/25/19 23 1:48 PM EST documented as of this encounter Care Teams Flat Hammerer Relationship Specialty Start Date End Date Wanda Bonilla ANP [address] [place] [address] PCP - General Family Medicine 09/03/20 Rajni García, TIM [address] [place] [address] [employer] RemoverEnrolled Nurse 09/18/24 12/15/24 April Michele MD [address] [facility] [address] [place] [address] Referring Physician Infectious Diseases 10/09/24 Lee Hubbard MD [address] [place] [address] Urology 10/09/24 Rajni García, RN [address] [place] [address] Registered Nurse Family Medicine 05/13/25 La Haddad 05/13/25 [facility] cardiology 11/12/23 documented as of this encounter
--- OUTSIDE RECORDS SUMMARY | 2025-06-19 10:49 | XMS_ITS ---
Author Organization [employer] Address [address] [place] [address] 7t [place] [address] Care Team Providers Care Print Room Worker Name Role Phone Wanda Bonilla Primary Care Provider April Michele MD Unavailable [phone] Lee Hubbard MD Unavailable [phone] Rajni García RN Unavailable [phone] La Haddad Unavailable [facility] Complex Status:Outreach In Progress (Enrolling) Start date:05/13/2025 Enrollment reason:ADT Feed Overview ADT-[facility] 05/12/25. Please outreach for enrollment. Case Team Name Relationship Phone La Haddad(Responsible Staff) [phone] Continued Care and Services Coordination
--- OUTSIDE RECORDS SUMMARY | 2025-06-19 10:49 | XMS_ITS | Encounter Summary ---
Author Organization [employer] Address [address] [place] [address] 7t [place] [address] Care Team Providers Care Small Products Ii Assembler Name Role Phone Wanda Bonilla Primary Care Provider April Michele MD Unavailable [phone] Lee Hubbard MD Unavailable [phone] Rajni García RN Unavailable La Haddad Unavailable Reason for Visit * Reason Comments Care Management C3- initial assess ment/enrollment Encounter Details Date Type Department Care Team (Late st Contact Info) Description 06/18/2025 Patient Outreach [facility] MEDICINE [address] [place], [place] [phone] Wanda Bonilla ANP [address] [place] [address] Care Management ([facility]- initial assessment/enrollmen t) Social History Tobacco Use Types Packs/Day Years Used Date Smoking Tobacco: Some Days Cigarettes Passive Smoke Exposure: Past Smokeless Tobacco: Never Alcohol Use Standard Drinks/Week Comments Not Currently 0 (1 standard drink = 0.6 oz pur e alcohol) Depression Answer Date Recorded Patient Health Questionnaire-9 Score 9 06/18/2025 Patient Health Questionnaire-9 Score 9 06/18/2025 Last PHQ-9: Questionnaire Data Not on file 1 08/18/2024 Housing Stability Answer Date Recorded What is [...] the past 12 months, has t he [employer], gas, oil or water company threatened to shut off services in your home? No 05/14/2023 Depression Answer Date Recorded Patient Health Questionnaire-2 Score 2 06/18/2025 Internet Access Answer Date Recorded Internet Access Q1 Yes 09/23/2024 Internet Access Q2 Not on file 09/23/2024 Comments No Sex and Gender Information Value Date Recorded Sex Assigned at Female 05/29/2022 10:15 AM EDT Legal Sex Female 10:15 AM EDT Gender Identity Female 05/29/2022 10:15 AM EDT Sexual Orientation Straight 05/29/2022 10 :15 AM EDT documented as of this encounter Functional Status * Over the past 2 weeks, how often have you been bothered by any of the following problems? Question Answer Date of Assessment Author Patient Health Questionnaire -2 Score 2 06/18/2025 10:20 AM Rajni Gonzales RN * Little interest or pleasure in doing things Answer Date of Assessment Author Several days 06/18/2025 10:20 AM Rajni Gonzales RN * Feeling down, depressed, or hopeless Answer Date of Assessment Author Several days 06/18/2025 10:20 AM Rajni Gonzales RN * Trouble falling or staying asleep, or sleeping too much Answer Date of Assessment Author Several days 06/18/2025 10:20 AM Rajni Gonzales RN * Feeling tired or having little energy Answer Date of Assessment Author Several days 06/18/2025 10:20 AM Rajni Gonzales RN * Poor appetite or overeating Answer Date of Assessment Author Several days 06/18/2025 10:20 AM Rajni Gonzales RN * Feeling bad about yourself - or that you are a failure or have let yourself or your family down Answer Date of Assessment Author Not at all 06/18/2025 10:20 AM Rajni Gonzales RN * Trouble concentrating on things, such as reading the newspaper or watching television Answer Date of Assessment Author More than half the days 06/18/2025 10:20 AM Rajni Gonzales RN * Moving or speaking so slowly that other people could have noticed? Or the opposite - being so fidgety or restless that you have been moving around a lot more than usual. Answer Date of Assessment Author More than half the days 06/18/2025 10:20 AM Rajni Gonzales RN * Thoughts that you would be better off or hurting yourself in some way Answer Date of Assessment Author Not at all 06/18/2025 10:20 AM Rajni Gonzales RN * Patient Health Questionnaire-9 Score Answer Date of Assessment Author 9 06/18/2025 10:20 AM Rajni Gonzales RN * Over the last 2 weeks, how often have you been bothered by any of the following problems? Question Answer Date of Assessment Author Feeling nervous, anxious, or on edge 3 06/18/2025 10:24 AM Rajni Gonzales RN Not being able to stop or co ntrol worrying 2 06/18/2025 10:24 AM Rajni Gonzales RN Worrying too much about diff erent things 2 06/18/2025 10:24 AM Rajni Gonzales RN Trouble relaxing 2 06/18/2025 10:24 AM Rajni Gonzales RN Being so restless that it is hard to sit still 2 06/18/2025 10:24 AM Rajni Gonzales RN Becoming easily annoyed or irritable 2 06/18/2025 10:24 AM Rajni Gonzales RN Feeling afraid as if somethi ng awful might happen 2 06/18/2025 10:24 AM Rajni Gonzales RN ESTEFANI-7 Total Score 15 06/18/2025 10:24 AM Rajni Gonzales RN * How difficult have these problems made it for you to do your work, take care of things at home, or get along with other people? Answer Date of Assessment Author Somewhat difficult 06/18/2025 10:20 AM EST Sanch Rajni mckeon RN documented as of this encounter Progress Notes * Rajni García RN - 06/18/2025 10:20 AM EST CM Rajni García RN placed outbound call to patient for agreed upon time for initial assessment for enrollment into Adult Care Management Program. Patient's name, , and address were verified. Tank is a 60 year old female with history of anxiety, asthma, chronic Hep C, cirrhosis of liver, depressed bipolar 1 disorder, diabetic polyneuropathy, hypertension, hyperlipidemia, panic disorder without agoraphobia, Type 2 DM, prolactinoma, bloody discharge from right nipple, renal stones, calcanealspur, PAD, sleep disorder, somnolence, diabetic retinopathy, carpal tunnel syndrome, chest pain,dysuria, KAY, pelvic pain, right flank pain, GERD, complex ovarian cyst, cervical spondylosis, alcohol use, and chronic left shoulder pain. Patient states she was seen at [facility] ED for evaluation of CP on 06/11/25. Per patient, went to the EDbecause she was experiencing arm pain and CP and was not certain if the pain was cardiac in nature.She states she underwent cardiac testing which came back normal. Per patient, prescribed oxycodone,which she states she is taking as needed and reports good effect. Patient states she is being followed by Pain Management at [facility]. Per patient, underwent a procedure on Sunday of last week where she received several injections to her neck. She states she is scheduled for her post-op visit tomorrow.Patient states she continues to experience right shoulder pain that radiates down the arm to the fingers. She also reports numbness and tingling to the extremity. Patient states she plans on discussing these symptoms with her provider tomorrow. Patient states she recently saw [facility]. Per patient, received a v/m from the office yesterday to schedule MRI pelvis. She states she will inform her daughter to assist with scheduling this visit. Will f/u with CM if in need of additional assistance with scheduling. Per patient, established with [facility]. She states she is scheduled for an in person f/u withboth her therapist and psychiatrist on 07/13/25. Patient states she is doing well emotionally today. She denies any symptoms and states she has the number to crisis to use prn. Patient reports history hypertension and DM. Patient states she has a working BP monitor and glucometer. She states she knows BP parameters as well as glucose parameters. Per patient, able to recognize s/s of hypo/hypertension and hypo/hyperglycemia. She states she monitors her sugars TID and confirms having all of the supplies that she needs. Patient states she has a nebulizer machine as well asinhalers for her asthma. She also states she has a cane and walker which she uses for ambulation. Per patient, currently receiving [employer] PIP[employer] services through [employer]. She states her daughter is her CAD[employer] PIPING DESIGNER. According to the patient, her daughter assists her with ADLs, schedules her medical appointments, and accompanies her to her visits. Patient states she is scheduled for a revision in May and will be making a request for an increase in [employer] hours. Patient denies any immediate needs or concerns at this time. Care management program explained and contact information given. Patient verbalizes understanding, and able to repeat back to proposal writer. A follow up call will be placed within 10 days, patient agrees with plan. documented in this encounter Plan of Treatment Upcoming Encounters Date Type Department Care Team (Late st Contact Info) Description 07/02/2025 1:00 PM EST Office Visit [facility] MEDICINE [address] [place] [address] Wanda Bonilla ANP [address] [place] [address] 09/08/2025 1:30 PM EST Office Visit [facility] OPTOMETRY [address] [place] [address] Tyler, Smiley, OD [address] [place] [address] documented as of this encounter Visit Diagnoses Not on filedocumented in this encounter Additional Health Concerns Assessment Noted Time PHQ-9 Depression Total Score: 9 06/18/20 25 10:20 AM EST documented as of this encounter Care Teams Small Products Ii Assembler Relationship Specialty Start Date End Date Wanda Bonilla ANP [address] [place] [address] PCP - General Family Medicine 09/03/20 April Michele MD [address] [facility] [address] [place] [address] Referring Physician Infectious Diseases 10/09/24 Lee Hubbard MD [address] [place] [address] Urology 10/09/24 Rajni García, TIM [address] [place] [address] Registered Nurse Family Medicine 05/13/25 La Haddad 05/13/25 [facility] cardiology 11/12/23 documented as of this encounter
--- OUTSIDE RECORDS SUMMARY | 2025-06-19 10:49 | XMS_ITS | Encounter Summary ---
Author Organization [employer] Address [address] [place] [address] 7t h Floor [place] [phone] Care Team Providers Care Auto Technician Name Role Phone Wanda Bonilla Primary Care Provider April Michele MD Unavailable [phone] Lee Hubbard MD Unavailable [phone] Rajni García RN Unavailable [phone] La Haddad Unavailable Reason for Visit * Reason Comments Med Refill Encounter Details Date Type Department Care Team (Late st Contact Info) Description 06/15/2025 Refill [facility] MEDICINE [address] [place], [place] [phone] Wanda Bonilla ANP [address] [place], [place] [phone] Restless legs; Type 2 diabetes mellitus with hyperlipidemia (HCC) Social History Tobacco Use Types Packs/Day Years [...] Office Visit [facility] MEDICINE [address] [place] [address] Wanda Bonilla ANP [address] [place] [address] 09/08/2025 1:30 PM EST Office Visit [facility] OPTOMETRY [address] [place] [address] Tyler, Smiley, OD [address] [place] [address] documented as of this encounter Visit Diagnoses Diagnosis Restless legs Restless legs syndrome (RLS) Type 2 diabetes mellitus with hyperlipidemia (HCC) documented in this encounter Additional Health Concerns Assessment Noted Time PHQ-9 Depression Total Score: 5 11/23/19 24 1:33 PM EDT documented as of this encounter Care Teams Auto Technician Relationship Specialty Start Date End Date Wanda Bonilla ANP [address] [place] [address] PCP - General Family Medicine 09/03/20 April Michele MD [address] [facility] [address] [place] [address] Referring Physician Infectious Diseases 10/09/24 Lee Hubbard MD [address] [place] [address] Urology 10/09/24 Rajni García, TIM [address] [place] [address] Registered Nurse Family Medicine 05/13/25 La Haddad 05/13/25 [facility] cardiology 11/12/23 documented as of this encounter
--- OUTSIDE RECORDS SUMMARY | 2025-06-19 10:49 | XMS_ITS | Encounter Summary ---
Author Organization [employer] Address [address] [facility] 7t [place] [address] Care Team Providers Care Oxygen Therapy Teacher Name Role Phone Wanda Bonilla Primary Care Provider April Michele MD Unavailable [phone] Lee Hubbard MD Unavailable [phone] Rajni García RN Unavailable [phone] La Haddad Unavailable Reason for Visit * Reason Onset Date Comments Referral 01/02/2025 Encounter Details Date Type Department Care Team (Late st Contact Info) Description 01/02/2025 Telephone [facility] MEDICINE [address] [place], [place] [phone] Wanda Bonilla ANP [address] [place], [place] [phone] Referral Social History Tobacco Use Types Packs/Day [...] location of referral for [place] the [facility] wom[facility]. Pt would like a call back to confirm. Please contact pt at [phone]. documented in this encounter Plan of Treatment Upcoming Encounters Date Type Department Care Team (Late st Contact Info) Description 07/02/2025 1:00 PM EST Office Visit [facility] MEDIC[facility] [address] [place] [address] Wanda Bonilla, TAHIR [address] [place] [address] 09/08/2025 1:30 PM EST Office Visit [facility] OPTOMETRY [address] [place] [address] Smiley Scott, OD [address] [place] [address] documented as of this encounter Visit Diagnoses Not on filedocumented in this encounter Additional Health Concerns Assessment Noted Time PHQ-9 Depression Total Score: 5 11/23/19 24 1:33 PM EDT documented as of this encounter Care Teams Oxygen Therapy Teacher Relationship Specialty Start Date End Date Wanda Bonilla ANP [address] [place] [address] PCP - General Family Medicine 09/03/20 April Michele MD [address] [facility] [address] [place] [address] Referring Physician Infectious Diseases 10/09/24 Lee Hubbard MD [address] [place] [address] Urology 10/09/24 Rajni García RN [address] [place] [address] Registered Nurse Family Medicine 05/13/25 La Haddad 05/13/25 [facility] cardiology 11/12/23 documented as of this encounter
--- OUTSIDE RECORDS SUMMARY | 2025-06-19 10:49 | XMS_ITS | Clinical Summary ---
Author Organization [employer] Address [address] [place] [address] [address] [place] [address] Care Team Providers [employer] Dean Name Role Phone Sandra Vieira Primary Care Provider April Michele MD Unavailable [phone] Lee Hubbard MD Unavailable Rajni García RN Unavailable [phone] La Haddad Unavailable Allergies Active Allergy [...] mouth after use. 1 each 024 Active insulin pen needle (Easy Touch Pen [place]) 31G X 8 mm miscIndications: Diabetic polyneuropathy associated with type 2 diabetes mellitus (HCC) USE DIRECTED FOUR TIMES DAILY 100 each 025 Active Blood Pressure Monitoring (Omron 3 Series BP Monitor) device Use as directed 1x/d 1 each 025 Active Blood Glucose Monitoring Suppl (FreeStyle [place] Lite) w/Device kit Use to test blood [...] weekly thereafter 45 g 2 025 Active triamcinolone (Kenalog) 0.1 % ointment Apply [...] OR CHEW 90 capsule 1 025 Active Lantus SoloStar 100 UNIT/ML penIndications:T [...] AT BEDTIME 120 capsule 3 025 Active Aspirin Low Dose 81 MG EC tablet TAKE 1 TABLET BY MOUTH EVERY EVENING 90 tablet 3 025 Active Ozempic, 0.25 or 0.5 MG/DOSE, 2 MG/3ML solution pen-injectorIndi cations:Diabetic polyneuropathy associated with type 2 diabetes mellitus (HCC) INJECT 0.5 MG SUBCUTANEOUSLY EVERY 7 DAYS IN THE ABDOMEN, THIGHS, OR UPPER ARM, ROTATE INJECTION SITES. 3 mL 1 025 Active carvedilol (Coreg) 6.25 MG tabletIndication s:Primary hypertension TAKE 1 TABLET BY MOUTH TWICE DAILY AT NOON AND BEDTIME 180 tablet 1 Active lidocaine 2 % gelIndications:C hronic left shoulder pain Apply to affected area daily prn 6 mL 1 025 2025 Active NIFEdipine XL (Procardia XL) 60 MG 24 hr tabletIndication s:Benign essential HTN TAKE 1 TABLET BY MOUTH EVERY MORNING BEFORE BREAKFAST DO NOT BREAK, CRUSH, DISSOLVE OR CHEW 90 tablet 1 Active TRUEplus Lancets 33G miscIndications: Type 2 diabetes mellitus with hyperlipidemia (HCC) USE DIRECTED TO TEST BLOOD SUGAR THREE TIMES DAILY 100 each Active rOPINIRole (Requip) 0.5 MG tabletIndication s:Restless legs TAKE 1 TABLET BY MOUTH AT BEDTIME 1-3 HOURS BEFORE BEDTIME 30 tablet 11 Active TRUEplus Lancets 33G misc TEST BLOOD SUGAR THREE TIMES DAILY 100 each 024 2024 Discontinued lidocaine (Lidoderm) 5 % patchIndications :Pain APPLY 1 PATCH TOPICALLY TO SKIN, LEAVE ON FOR 12 HOURS AND OFF FOR 12 HOURS DIRECTED. May use 2 patches at once. 60 patch 2 2024 Discontinued NIFEdipine CC (Adalat CC) 60 MG 24 hr tabletIndication s:Benign essential HTN Take 1 tablet (60 mg) by mouth before breakfast. Do not crush, chew, or split. 90 tablet 1 2024 Discontinued NIFEdipine XL (Procardia XL) 60 MG 24 hr tabletIndication s:Primary hypertension TAKE 1 TABLET BY MOUTH EVERY MORNING BEFORE BREAKFAST DO NOT BREAK, CRUSH, DISSOLVE OR CHEW 2024 Discontinued(D uplicate order (will not trigger notification to Pharmacy)) rOPINIRole (Requip) 0.5 MG tabletIndication s:Restless legs TAKE 1 TABLET BY MOUTH AT BEDTIME 1-3 HOURS BEFORE BEDTIME 30 tablet 2 025 2024 Discontinued Hospital, Clinic, or Other [...] while admitted. She did get established with [facility] cardiology. I will request updated notes. [...] opiates) with Tylenol and ibuprofen I called [facility] cardiology clinic and they will call [...] Chest pain 12/07/2023 Overview (12/07/2023): Admitted at [facility] 11/11/-11/14/23 ?NSTEMI Optimize BP, DM, minimize risk [...] Psychiatrist decreased seroquel. She was referred to [facility] Breast Specialist for further eval. History [...] Cirrhosis of liver (CMS/HCC) 07/27/2017 Overview (10/01/2023): [facility] GI D/t HCV (suspect s/p blood transfusion [...] Diagnosed Date Resolved Date Bipolar disease in ([facility]) 08/02/202308/02/2023 Breast mass 08/02/2023 08/02/2023 08/02/2023 UTI symptoms 08/02/2023 08/02/2023 08/02/2023 Flank pain 04/24/2023 08/02/2023 Hepatitis C 04/24/2023 08/02/2023 Urinary tract infection 04/24/2023/10/2023 Chronic hepatitis ([facility]) 04/24/2023 08/02/2023 UTI (urinary tract infection) 03/09/2023 08/02/2023 Assessment & Plan (03/09/2023 2:36 PM EDT): Drink plenty of water Do not hold the urine Insulin dependent type 1 diabetes mellitus 09/24/2018 08/02/2023 Benign neoplasm of pituitary gland ([facility]) 3 08/29/2023 02/10/2025 Encounters Date Type Department Care Team Description 06/18/2025 Plan of Care Documentation [address] [address] 06/18/2025 Plan of Care Documentation [address] [address] 06/18/2025 Patient Outreach [address] [address] Sandra Vieira ANP Care Management (C3CM- initial assessment/enrollment ) 06/17/2025 Patient Outreach [address] [address] Sandra Vieira ANP Care Coordination (CM/CHW appointment reminder) 06/15/[address] [address] Sandra Vieira ANP Restless legs; Type 2 diabetes mellitus with hyperlipidemia (HCC) 06/12/2025 Patient Outreach [address] [address] Sandra Vieira ANP 06/11/2025 Orders Only GENERIC EXTERNAL DATA DEPARTMENT Provider, Generic External Data 06/11/2025 Refill [facility] [address] [place] [phone] Sandra Vieira ANP Benign essential HTN 06/09/2025 Patient Outreach [facility] [address] [place] [phone] Sandra Vieira ANP Care Coordination (CM/CHW outreach) 05/25/2025 1:00 PM EDT Office Visit [facility] [address] [place] [phone] Melonie Seth, ADRIANNE Chronic left shoulder pain (Primary Dx) 05/25/2025 Travel 05/13/2025 Patient Outreach [facility] [address] [place] [address] Sandra Vieira ANP Care Coordination (CM/CHW outreach) 05/13/2025 Patient Outreach [facility] [address] [place] [phone] Sandra Vieira ANP Care Coordination (CHW Chart Review) 05/13/2025 Patient Outreach [facility] [address] [place] [address] Sandra Vieira ANP 05/13/2025 Patient Outreach [address] [address] Sandra Vieira ANP 05/13/2025 Refill [facility] [address] [place] [phone] Jose Maria Farnsworth MD Primary hypertension 05/13/2025 Refill [facility] [address] [place] [address] Sandra Vieira ANP Diabetic polyneuropathy associated with type 2 diabetes mellitus (HCC); Primary hypertension 05/12/2025 Orders Only GENERIC EXTERNAL DATA DEPARTMENT Provider, Generic External Data 04/29/2025 Telephone [facility] [address] [place] [phone] Smiley Scott, OD 04/22/2025 Refill [facility] [address] [place] [address] Sandra Vieira ANP 04/20/2025 Telephone [facility] [address] [place] [address] Smiley Scott, OD 04/20/2025 Telephone [facility] [address] [place] [address] Sandra Vieira ANP dec recall 04/12/2025 Refill [facility] [address] [place] [address] Sandra Vieira ANP 04/09/2025 Refill [facility] [address] [place] [address] Sandra Vieira ANP Type 2 diabetes mellitus with hyperglycemia, with long-term current use of insulin ([facility]) 04/02/2025 2:30 PM EDT Office Visit [facility] [address] [place] [address] Sandra Vieira ANP Tobacco abuse counseling (Primary Dx); Type 2 diabetes mellitus with hyperlipidemia ([facility]/HCC) ([facility]) 04/02/2025 Travel 03/20/2025 Refill [facility] [address] [place] [address] Sandra Vieira ANP Diabetic polyneuropathy associated with type 2 diabetes mellitus ([facility]) 03/19/2025 Orders Only GENERIC EXTERNAL DATA DEPARTMENT Provider, Generic External Data from Last 3 Months Immunizations Immunization Administration [...] Description 07/02/2025 1:00 PM EST Office Visit [facility] [address] [place] [address] Sandra Vieira, ANP [address] [place] [address] 09/08/2025 1:30 PM EST Office Visit [facility] [address] [place] [address] Tyler, Smiley, OD [address] [place] [address] Health Maintenance Due Date Last Done Comments [...] exists Diabetes: Urine Protein Screening 05/01/2024 05/01/2023, 05/01/2023, 04/30/2023, Additional history exists Lipid Panel 05/01/2024 05/01/2023, 05/20/2021 SDOH Screening 08/30/2024 08/30/2023 Eye Exam 09/26/2024 09/27/2023, 08/31, 09/27/2023, Additional history exists COVID-19 Vaccine ( - season) 2025 12/29/2020, 12/01/2020 Influenza Vaccine (#1) 2025 05/13/2018, 2016 Diabetes: Hemoglobin A1C 07/02/2025 025, 12/25/2024, 09/23/2024, Additional history exists Depression Monitoring 12/16/2025 06/18/2025, 025 Tobacco Screening 05/25/2026 05/25/2025 Alcohol/Substance Use Screening 06/18/2026 06/18/2025 Mammogram 07/03/2026 07/03/2024, 1211/2023, 01/04/2024, Additional history [...] Diagnosis Comments HIGH SENSITIVITY TROPONIN I Routine 06/11/2025 1:28 PM EST XR CHEST 1 VIEW Routine 06/11/2025 10:54 [...] Results * (ABNORMAL) High Sensitivity Troponin I (06/11/2025 1:28 PM EST) Only the most recent of2 resultswithin the time period is included. TROPONIN I HIGH SENSITIVITY 117.2(HH) <3.5 - 17.0 ng/L [facility] Comment:Critical value for t est(s): HS TROP Results called to em back by: NITIN Person calling: FLOYD Date: 06/11/25Time: 1410[employer] high sensitivity Troponin-I results should beused in conjunction with other diagnostic information suchas ECG, clinical observations and information, and patientsymptoms to aid in the diagnosis of NE. 06/11/2025 1:28 PM EST 06/11/2025 1:30 PM EST us Generic External Data Provider LAB BLOOD ORDERAB LES Final Result [facility] [address] [place] [phone] * XR Chest 1 View (06/11/2025 10:54 AM EST) Anatomical Region Laterality Modality Chest Radiographic Nina ging 06/11/2025 10:5 4 AM EST Narrative 06/11/2025 11:07 AM EST [address] [address] XRay Report Signed Patient: Tank Max MR#: [id number] : 1965 Acct:[id number] Age/Sex: 60 / F ADM Date: 06/11/25 Loc: HO.ED Attending Dr: Ordering Physician: Douglas Greene MD Date of Service: 06/11/25 Procedure(s): XR chest 1V Accession Number(s): [id number] cc: Douglas Greene MD; SANDRA VIEIRA NP [...] MD 06/11/2025 11:04 AM EST Dictated By: Kvein Villalobos MD Signed By: <Electronically signed by Kevin Smith MD in OV> 06/11/25 1104 DD/ 1054 TD/TT: 06/11/25 1057 [employer]: Procedure Note Donotuseinterpreter, Image - 06/11/[address] [address] XRay Report Signed Patient: Tank MaxMR#: [id number] : 1965Acct:[id number] Age/Sex: 60 / FADM Date: 06/11/25 Loc: HO.ED Attending Dr: Ordering Physician: Douglas Greene MD Date of Service: 06/11/25 Procedure(s): XR chest 1V Accession Number(s): [id number] cc: Douglas Greene MD; SANDRA VIEIRA NP [...] 06/11/25 1104 DD/ 1054 TD/TT: 06/11/25 1057 [employer]: [facility] External Provider IMG XR PROCEDURES Final Result * (ABNORMAL) CBC auto differential (06/11/2025 9:56 AM EST) Only the most recent of2 resultswithin the time period is included. White Blood Count 3.8(L) 4.8 - 10.8 X10*3/uL [facility] Red Blood Count 4.13(L) 4.20 - 5.50 X10*6/uL [facility] Hemoglobin 12.2 12.0 - 16.0 g/dl [facility] Hematocrit 35.5(L) 37.0 - 47.0 % [facility] Mean Corpuscular Volume 86.0 80.0 - 98.0 fL [facility] Mean Corpuscular Hemoglobin 29.5 27.0 - 33.0 pg [facility] Mean Corpuscular HGB Conc 34.4 31.0 - 35.0 g/dl [facility] Red Cell Distribution Width 12.7 11.0 - 16.0 % [facility] Platelet Count 101(L) 160 - 400 X10*3/uL [facility] Mean Platelet Volume 9.9 9.4 - 12.3 fL [facility] Neutrophils Percent Auto 61.1 45 - 73 % [facility] Imm Gran Pct Auto 0.3 0.0 - 0.4 % [facility] Lymphocytes Percent Auto 26.0 20 - 40 % [facility] Monocytes Percent Auto 10.7 2 - 11 % [facility] Eosinophils Percent Auto 1.6 0 - 4 % [facility] Basophils Percent Auto 0.3 0 - 2 % [facility] NRBC Pct Auto 0.0 0.0 - 0.2 /100WBC [facility] Neutrophils Absolute Auto 2.4 2.0 - 8.3 x10*3/uL [facility] Imm Gran Abs Auto 0.01 0.00 - 0.03 X10*3/uL [facility] Lymphocytes Absolute Auto 1.0(L) 1.2 - 4.9 X10*3/uL [facility] Monocytes Absolute Auto 0.4 0.1 - 1.2 X10*3/uL [facility] Eosinophils Absolute Auto 0.1 0.0 - 0.4 X10*3/uL [facility] Basophils Absolute Auto 0.0 0.0 - 0.2 X10*3/uL [facility] NRBC Abs Auto 0.000 0.0 - 0.012 X10*3/uL [facility] 06/11/2025 9:56 AM EST 06/11/2025 10:05 AM EST us Generic External Data Provider LAB BLOOD ORDERAB LES Final Result [facility] [address] [place] [phone] * Urinalysis w/reflex microscopic (06/11/2025 9:56 AM EST) Color Urine Yellow [facility] Appearance Urine Clear [facility] PH 6.0 5.0 - 9.0 [facility] Glucose Urine UA Negative Negative mg/dL [facility] Urine Blood Negative Negative [facility] Specific [place] - Urine 1.020 1.005 - 1.025 [facility] Urine Protein Trace Neg-Trace mg/dL [facility] Urine Ketones Negative Negative mg/dL [facility] Nitrite Urine Negative Negative [facility] Leukocyte Esterase Urine Negative Negative [facility] 06/11/2025 9:56 AM EST 06/11/2025 10:05 AM EST Narrative [facility] - 06/11/2025 10:13 AM EST Urine, Clean Catch us Generic External Data Provider LAB URINE ORDERAB LES Final Result Performing Organization Address City/State/[facility] Co de Phone Number [facility] [address] [place] [phone] * US Abdomen Limited (05/15/2025 9:54 AM EDT) Anatomical Region Laterality Modality Abdomen Ultrasound 05/15/2025 9:54 AM EDT Narrative 05/15/2025 9:56 AM EDT [address] [address] Ultrasound Report Signed Patient: Tank Max MR#: [id number] : 1965 Acct:[id number] Age/Sex: 60 / F ADM Date: 05/14/25 Loc: HO.US Attending Dr: Ashlie Maldonado MD Ordering Physician: Ashlie Maldonado MD Date of Service: 05/14/25 Procedure(s): US abdomen limited Accession Number(s): [id number] cc: Ashlie Maldonado MD; SANDRA VIEIRA NP [...] in OV> 05/15/2555 DD/ 3 TD/TT: 05/15/25953 [employer]: Procedure Note Donotuseinterpreter, Image - 05/15/2025 [place] [address] Ultrasound Report Signed Patient: Barrera Max#: [id number] : 1965Acct:[id number] Age/Sex: 60 / FADM Date: 05/14/25 Loc: HO.US Attending Dr: Ashlie Maldonado MD Ordering Physician: Ashlie Maldonado MD Date of Service: 05/14/25 Procedure(s): US abdomen limited Accession Number(s): [id number] cc: Ashlie Maldonado MD; SANDRA VIEIRA NP [...] in OV> 05/15/25954 DD/ 3 TD/TT: 05/15/25953 [employer]: [facility] External Provider IMG US PROCEDURES Final Result * Lipase (05/12/2025 10:06 AM EDT) Lipase 21 8 - 78 U/L [facility] 05/12/2025 10:0 6 AM EDT 05/12/2025 10:12 AM EDT Generic External Data Provider LAB BLOOD ORDERAB LES Final Result [facility] [address] [place] [phone] * (ABNORMAL) Hepatic Function Panel (05/12/2025 10:06 AM EDT) Bilirubin, Total 0.4 0.0 - 1.0 mg/dL [facility] Bilirubin, Direct 0.2 0.0 - 0.5 mg/dL [facility] Aspartate Amino Transferase 45(H) 5 - 31 U/L [facility] Alanine Aminotransferase 50(H) 0 - 31 U/L [facility] Total Protein 7.3 6.5 - 8.0 g/dL [facility] Albumin Level 4.1 3.5 - 5.0 g/dL [facility] Alkaline Phosphatase 129(H) 39 - 117 U/L [facility] 05/12/2025 10:0 6 AM EDT 05/12/2025 10:12 AM EDT us Generic External Data Provider LAB BLOOD ORDERAB LES Final Result Performing Organization Address City/[facility]/ZIP Co de Phone Number [facility] [address] [place] [address] [phone] * (ABNORMAL) Basic Metabolic Panel (05/12/2025 10:06 AM EDT) Sodium 144 135 - 145 mmol/L [facility] Potassium 4.2 3.3 - 5.1 mmol/L [facility] Chloride 111(H) 96 - 108 mmol/L [facility] Carbon Dioxide 25 22 - 29 mmol/L [facility] Anion Gap 12 12 - 20 [facility] Urea Nitrogen (BUN) 13 9 - 16 mg/dL [facility] Creatinine, Serum 0.87 0.5 - 1.4 mg/dL [facility] Creatinine Clr Calc Pharmacy 66.3 [facility] Comment:Provided height and weight: 160.02 cm,78.018 kg.eGFR (calculated from the MDRD study equation) and eCrCl(calculated from the Cockcroft-Gault equation) are based ondifferent parameters and may not yield comparable results.If eCrCl result is absurd, please check patient'sheight/weight. Estimated Glomerular Filt Rate >60 [facility] Comment:Chronic Kidney Disea se: Estimated GFR < 60 mL/min/1.47w8Dzltna Kidney Disease: Estimated GFR < 15 mL/min/1.73m2 Glucose 88 60 - 115 mg/dL [facility] Calcium 9.2 8.4 - 10.2 mg/dL [facility] 05/12/2025 10:0 6 AM EDT 05/12/2025 10:12 AM EDT us Generic External Data Provider LAB BLOOD ORDERAB LES Final Result Performing Organization Address City/[facility]/ZIP Co de Phone Number [facility] [address] [place] [address] [phone] * (ABNORMAL) Urinalysis, Complete, with Reflex to Culture (05/12/2025 10:03 AM EDT) Color Urine Yellow [facility] Appearance Urine Cloudy [facility] PH 6.0 5.0 - 9.0 [facility] Glucose Urine UA Negative Negative mg/dL [facility] Urine Blood Negative Negative [facility] Specific [place] - Urine 1.020 1.005 - 1.025 [facility] Urine Protein Trace Neg-Trace mg/dL [facility] Urine Ketones Negative Negative mg/dL [facility] Nitrite Urine Negative Negative [facility] Leukocyte Esterase Urine Small (1+)(A) Negative [facility] RBC Urine 0-2 0 - 2 /HPF [facility] Urine WBC 0-5 0 - 5 /HPF [facility] Urine Squamous Epithelial Cell >20 0 - 2 /HPF [facility] Urine Bacteria 4+ None Seen [facility] Hyaline Casts, Urine 0-2 0 - 2 /LPF [facility] 05/12/2025 10:0 3 AM EDT 05/12/2025 10:12 AM EDT [facility] - 05/12/2025 10:28 AM EDT [id number], Clean Catch us Generic External Data Provider LAB URINE ORDERAB LES Final Result [facility] [address] [place] [phone] * Culture, Urine, Routine (05/12/2025 12:00 AM EDT) Urine Urine specimen obtained by clean catch procedure / Unknown 05/12/2025 05/12/2025 Comment:UACC [facility] - 05/13/2025 9:16 AM EDT Urine Culture Report Result Urine Culture < 10,000 cfu/ml Specimen Source: Urine clean catch Generic External Data Provider LAB MICROBIOLOGY - GENERAL ORDERABLES Final Result [facility] [address] [place] [phone] * (ABNORMAL) POCT Hgb A1c (04/02/2025 2:44 PM EDT) Pathologist [facility] Hemoglobin A1C 7.2(A) 4.0 - 5.7 % QC Media Lot # [id number] Lot# Expiration Date 162, Blood 04/02/2025 2:44 PM EDT [facility] POINT OF CARE TEST ENTER/EDIT OR DERABLES Final Result * (ABNORMAL) POCT Glucose (04/02/2025 2:43 PM EDT) Pathologist [facility] Glucose Blood, POC 218(A) 60 - 200 mg/dL QC Media Lot # [id number] Lot# Expiration Date 2031,166 Blood Capillary blood specimen / Unknown 04/02/2025 2:43 PM EDT [facility] POINT OF CARE TEST ENTER/EDIT OR DERABLES Final Result * (ABNORMAL) Hepatitis C Viral RNA, Quantitative, Real-Time PCR (03/19/2025 12:13 PM EDT) Pathologist [facility] Hepatitis C Viral Load [id number](A ) NOT DETECTED IU/mL [facility] HCV Log PCR 6.20(A) NOT DETECTED Log IU/mL [facility] Comment:For additional infor mation, please refer [email or web address].Gewara/faq/[email or web address](This link is being provided for informational/educational purposes only.)THIS TEST WAS PERFORMED AT:[facility] [place] [id number] YO MD 03/19/2025 12:1 3 PM EDT 03/19/2025 12:19 PM EDT Generic External Data Provider LAB BLOOD ORDERAB LES Final Result Performing Organization Address [facility] Co de Phone Number [facility] [address] [place] [phone] * Alpha-Fetoprotein, Tumor Marker (03/19/2025 12:13 PM EDT) Pathologist [facility] Alpha Fetoprotein 4.8 ng/mL [facility] Comment:Reference Range: <6. 1The use of AFP as a tumor marker in females is not recommended.This test was performed using the Jeanine Coulterchemiluminescent method. Values obtained fromdifferent assay methods cannot be usedinterchangeably. AFP levels, regardless ofvalue, should not be interpreted as absoluteevidence of the presence or absence of disease.THIS TEST WAS PERFORMED AT:[facility] [place] [id number] YO MD 03/19/2025 12:1 3 PM EDT 03/19/2025 12:19 PM EDT Generic External Data Provider LAB BLOOD ORDERAB LES Final Result Performing Organization Address [facility] de Phone Number [facility] [address] [place] [phone] * (ABNORMAL) CBC (03/19/2025 12:13 PM EDT) Pathologist [facility] White Blood Count 4.5(L) 4.8 - 10.8 X10*3/uL [facility] Red Blood Count 4.11(L) 4.20 - 5.50 X10*6/uL [facility] Hemoglobin 11.8(L) 12.0 - 16.0 g/dl [facility] Hematocrit 35.6(L) 37.0 - 47.0 % [facility] Mean Corpuscular Volume 86.6 80.0 - 98.0 fL [facility] Mean Corpuscular Hemoglobin 28.7 27.0 - 33.0 pg [facility] Mean Corpuscular HGB Conc 33.1 31.0 - 35.0 g/dl [facility] Red Cell Distribution Width 13.1 11.0 - 16.0 % [facility] Platelet Count 96(L) 160 - 400 X10*3/uL [facility] Mean Platelet Volume 11.1 9.4 - 12.3 fL [facility] NRBC Pct Auto 0.0 0.0 - 0.2 /100WBC [facility] NRBC Abs Auto 0.000 0.0 - 0.012 X10*3/uL [facility] 03/19/2025 12:1 3 PM EDT 03/19/2025 12:19 PM EDT us Generic External Data Provider LAB BLOOD ORDERAB LES Final Result Performing Organization Address City/State/[facility] Co de Phone Number [facility] [address] [place] [phone] * BI Mammogram Screening Tomosynthesis Bilateral (07/03/2024 9:53 AM EST) Anatomical Region Laterality Modality Breast Bilateral Mammography 07/03/2024 9:53 AM EST Narrative 07/09/2024 10:57 AM EST [address] 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: [facility] External Provider IMG BI PROCEDURES Edited Result - Final * Pap Smear (06/17/2024 10:30 AM EST) 06/17/2024 10:3 0 AM EST 06/18/2024 9:15 AM EST [facility]S - 06/20/2024 9:28 AM EST ----- ------- Name: Tank Max Age/Sex: 59/F : 1965 Unit#: [id number] Attend Dr: Herminio Britton MD Re06/17/24 Status: DEP REF Location: [facility] Disch: ----- ------- SPEC : [id number] RECD: 06/18/24 STATUS: MARCELINO CHAMBERS NUM: [id number] MILY: 06/17/24-[address] [facility] [address]: Herminio Britton MD ENTERED: 06/18/242 SP TYPE: Pap Smr OTHR DR: SANDRA VIEIRA NP ORDERED: Pap Smear Interpretation Satisfactory for evaluation. Negative for intraepithelial lesion or malignancy. No endocervical cells seen. HPV High Risk: Negative HPV Genotyping 16: Negative HPV Genotyping 18: Negative Clinical Information LMP: Postmenopausal Previous PAP test: Unknown date/findings Material Received ThinPrep-Cervical Copies To: SANDRA VIEIRA NP [address] [place] [address] Herminio Britton MD [facility] [address] [place] [address] [address] [place] [address] ----- ------- Signed (signature on file) AVELINO Romero (ASCP) 06/20/24 0928 ----- ------- END OF REPORT Generic External Data Provider LAB CYTOLOGY ORDE RABLES Final Result Performing Organization Address City/[facility]/ZIP Co de Phone Number [facility] [address] [place] [address] [phone] * HPV mRNA E6/E7 w/Reflex to HPV Genotypes 16, 18/45 (06/17/2024 12:00 AM EST) Historical Provider MD LAB CYTOLOGY ORDERABLES F inal Result Performing Organization Address [facility] Co de Phone Number [facility] [address] [place] [address] [phone] * HIV-1/2 Antigen and Antibodies, Fourth Generation, with Reflexes (03/24/2024 3:20 PM EDT) Pathologist [facility] HIV AB/AG Nonreactive Nonreactive [facility] Comment:HIV-1 p24 Ag and/or HIV-1/HIV-2 Ab not detected.A test result that is nonreactive does not exclude thepossibility of exposure to or infection with HIV-1 and/orHIV-2. Nonreactive results in this assay for individualswith prior exposure to HIV-1 and/or HIV-2 may be due toantigen and antibody levels that are below the limit ofdetection of this assay.The [employer] HIV Ag/Ab Combo assay result andsupplemental assay results should be interpreted inconjunction with the patient's clinical presentation,history and other laboratory results. If the results areinconsistent with clinical evidence, additional testing issuggested to confirm the result. 03/24/2024 3:20 PM EDT 03/24/2024 3:20 PM EDT us Generic External Data Provider LAB BLOOD ORDERAB LES Final Result Performing Organization Address [facility] Co de Phone Number [facility] [address] [place] [address] [phone] * (ABNORMAL) Albumin, Random Urine W/Creatinine (05/01/2023 11:30 AM EDT) Creatinine, Urine 302.38 mg/dL [facility] Microalbumin Urine 107.0 mg/L [facility] Microalbum Creatinine Ratio Ur 35.3(H) <30 ug/mg cr [facility] Comment:Albumin/Creatinine R atio Reference Ranges: Normal: < 30 ug/mg creatinine Microalbuminuria: 30 - 300 ug/mg creatinineClinical Albuminuria: > 300 ug/mg creatinine Urine (Urine, Random) 05/01/2023 11:30 AM EDT 05/01/2023 1:17 PM EDT Sandra Vieira ANP LAB URINE ORDERABLES Final Resul t [facility] [address] [place] [phone] * (ABNORMAL) Lipid Panel, Standard (05/01/2023 11:30 AM EDT) Triglycerides 189(H) <150 mg/dL [facility] Comment:Desirable Triglyceri de: less than [...] 190 mg/dL HDL Cholesterol 53 >40 mg/dL [facility] Comment:Desirable HDL: great er than 40 mg/dL Note: This HDL assay may give artificially low results in patients with liver disease. Blood Venous blood specimen / Unknown 05/01/2023 11:30 AM EDT 05/01/2023 1:23 PM EDT us Sandra HARO LAB BLOOD ORDERABLES Final Resul t [facility] [address] [place] [address] [phone] from Last 3 Months or Most Recently Relevant to Health Maintenance Insurance [employer] C[employer] Care Teams [employer] Dean Relationship Specialty Start Date End Date Sandra Vieira ANP [address] [place] [address] PCP - General Family Medicine 09/03/20 April Michele MD [address] [place] [address] [address] [place], [place] Referring Physician Infectious Diseases 10/09/24 Lee Hubbard MD [address] [place], [place] Urology 10/09/24 Rajni García, TIM [address] [place] [address] Registered Nurse Family Medicine 05/13/25 La Haddad 05/13/25 [facility] cardiology 11/12/23
--- OUTSIDE RECORDS SUMMARY | 2025-06-19 10:49 | XMS_ITS ---
Author Organization [employer] Address [address] [place] [address] 7t [place] [address] Care Team Providers Care Driveway Attendant Name Role Phone Wanda Bonilla Primary Care Provider April Michele MD Unavailable [phone] Lee Hubbard MD Unavailable Rajni García RN Unavailable [phone] La Haddad Unavailable CM Complex Status:Enrolled (Active) Start date:05/13/2025 Enrollment date:06/18/2025 Enrollment reason:ADT Feed Overview ADT-[facility] ED 05/12/25 Case Team Name Relationship Phone Rajni García RN(Responsible Staff) Registered Nurse [phone] Continued Care and Services Coordination
--- OUTSIDE RECORDS SUMMARY | 2025-06-19 10:49 | XMS_ITS | Encounter Summary ---
Author Organization [employer] Address [address] 7t [place] [address] Care Team Providers Care Selling Underwriter Name Role Phone Irene Wanda HARO Primary Care Provider [phone] Rajni García RN Unavailable [phone] April Michele MD Unavailable [phone] Lee Hubbard MD Unavailable [phone] Rajni García RN Unavailable [phone] La Haddad Unavailable Encounter Details Date Type Department Care Team (Late st Contact Info) Description 11/25/2024 Orders Only [facility] MED & PEDS [address] [place], [place] [phone] Dina Crawford Social History Tobacco Use Types [...] PM EST Office Visit [facility] MEDICINE [address] [place] [address] Wanda Bonilla, ANP [address] [place] [address] 09/08/2025 1:30 PM EST Office Visit [facility] OPTOMETRY [address] [place] [address] Smiley Scott, OD [address] [place] [address] documented as of this encounter Procedures Procedure Name Priority Date/Time Associated Diagnosis Comments HPV MRNA E6/E7 REFLEX TO HPV 16, 18/45 Routine 06/17/2024 12:00 AM EST documented in this encounter Results * HPV mRNA E6/E7 w/Reflex to HPV Genotypes 16, 18/45 (06/17/2024 12:00 AM EST) us Historical Provider LAB CYTOLOGY ORDERABLES F inal Result [facility] [address] [place] [phone] documented in this encounter Visit Diagnoses Not on filedocumented in this encounter Additional Health Concerns Assessment Noted Time PHQ-9 Depression Total Score: 5 11/23/19 24 1:33 PM EDT documented as of this encounter Care Teams Selling Underwriter Relationship Specialty Start Date End Date Wanda Bonilla ANP [address] [place] [address] PCP - General Family Medicine 09/03/20 Rajni García, RN [address] [place] [address] Sourcing AssistantFlatlock Sewing Machine Operator 09/18/24 12/15/24 April Michele MD [address] [facility] [address] [place] [address] Referring Physician Infectious Diseases 10/09/24 Lee Hubbard MD [address] [place] [address] Urology 10/09/24 Rajni García, TIM [address] [place] [address] Registered Nurse Family Medicine 05/13/25 La Haddad 05/13/25 [facility] cardiology 11/12/23 documented as of this encounter
--- OUTSIDE RECORDS SUMMARY | 2025-06-19 10:49 | XMS_ITS | Encounter Summary ---
Author Organization [employer] Address [address] [facility] 7t [place] [address] Care Team Providers Care Applications Support Engineer Name Role Phone Wanda Bonilla Primary Care Provider Rajni García RN Unavailable [phone] April Michele MD Unavailable [phone] Lee Hubbard MD Unavailable [phone] Rajni García RN Unavailable La Haddad Unavailable Reason for Visit * Reason Onset Date Comments Results 09/12/2023 Encounter Details Date Type Department Care Team (Late st Contact Info) Description 09/12/2023 Telephone [facility] MEDICINE [address] [place], [place] [phone] Wanda Bonilla ANP [address] [place], [place] [phone] Results Social History Tobacco Use Types Packs/Day [...] (in chart) Date when done: 08/30 Facility[place] [facility] Type of results: US neck Date when done: sometime last week per pt [facility] Please contact pt at [phone] documented in this encounter Plan of Treatment Upcoming Encounters Date Type Department Care Team (Late st Contact Info) Description 07/02/2025 1:00 PM EST Office Visit [facility] MEDICINE [address] [place], [place] [phone] Wanda Bonilla ANP [address] [place] [address] 09/08/2025 1:30 PM EST Office Visit [facility] OPTOMETRY [address] [place], [place] [phone] Smiley Scott, OD [address] [place] [address] documented as of this encounter Visit Diagnoses Not on filedocumented in this encounter Additional Health Concerns Assessment Noted Time PHQ-9 Depression Total Score: 0 08/25/19 23 1:48 PM EST documented as of this encounter Care Teams Applications Support Engineer Relationship Specialty Start Date End Date Wanda Bonilla ANP [address] [place] [address] PCP - General Family Medicine 09/03/20 Rajni García, TIM [address] [place] [address] Multicut Line OperatorAutomatic Buffing Wheel Former 09/18/24 12/15/24 April Michele MD [address] [facility] [address] [place] [address] Referring Physician Infectious Diseases 10/09/24 Lee Hubbard MD [address] [place] [address] Urology 10/09/24 Rajni García, RN [address] [place] [address] Registered Nurse Family Medicine 05/13/25 La Haddad 05/13/25 [facility] cardiology 11/12/23 documented as of this encounter
--- OUTSIDE RECORDS SUMMARY | 2025-06-19 10:49 | XMS_ITS | Encounter Summary ---
Author Organization [employer] Address [address] [facility] 7t [place] [address] Care Team Providers Care Community Living Specialist Name Role Phone Wanda Bonilla Primary Care Provider April Michele MD Unavailable [phone] Lee Hubbard MD Unavailable Rajni García RN Unavailable [phone] La Haddad Unavailable Reason for Visit * Reason Onset Date Comments Referral 01/06/2025 Encounter Details Date Type Department Care Team (Late st Contact Info) Description 01/06/2025 Telephone [facility] MED[facility] [address] [place], [place] [phone] Wanda Bonilla ANP [address] [place], [place] [phone] Referral Social History Tobacco Use Types Packs/Day [...] any questions you can contact pt at [phone]. (Tajik Speaker) documented in this encounter Plan of Treatment Upcoming Encounters Date Type Department Care Team (Late st Contact Info) Description 07/02/2025 1:00 PM EST Office Visit [facility] MEDICINE [address] [place] [address] Wanda Bonilla ANP [address] [place] [address] 09/08/2025 1:30 PM EST Office Visit [facility] OPTOMETRY [address] [place] [address] Smiley Scott, OD [address] [place] [address] documented as of this encounter Visit Diagnoses Not on filedocumented in this encounter Additional Health Concerns Assessment Noted Time PHQ-9 Depression Total Score: 5 11/23/19 24 1:33 PM EDT documented as of this encounter Care Teams Community Living Specialist Relationship Specialty Start Date End Date Wanda Bonilla ANP [address] [place] [address] PCP - General Family Medicine 09/03/20 April Michele MD [address] [facility] [address] [place] [address] Referring Physician Infectious Diseases 10/09/24 Lee Hubbard MD [address] [place] [address] Urology 10/09/24 Rajni García, TIM [address] [place] [address] Registered Nurse Family Medicine 05/13/25 La Haddad 05/13/25 [facility] cardiology 11/12/23 documented as of this encounter
--- OUTSIDE RECORDS SUMMARY | 2025-06-19 10:49 | XMS_ITS | Encounter Summary ---
Author Organization [employer] Address [address] [facility] 7t [place] [address] Care Team Providers Care Parcel Wrapper Name Role Phone Wanda Bonilla Primary Care Provider [phone] Rajni García RN Unavailable [phone] April Michele MD Unavailable [phone] Lee Hubbard MD Unavailable [phone] Rajni García RN Unavailable [phone] La Haddad Unavailable Encounter Details Date Type Department Care Team (Late st Contact Info) Description 09/26/2023 Telephone [facility] MEDICINE [address] [place], [place] [phone] Wanda Bonilla ANP [address] [place], [place] [phone] Social History Tobacco Use Types Packs/Day Years [...] EST Office Visit [facility] MEDICINE [address] [place] [address] Wanda Bonilla ANP [address] [place] [address] 09/08/2025 1:30 PM EST Office Visit [facility] OPTOMETRY [address] [place] [address] Tyler, Smiley, OD [address] [place] [address] documented as of this encounter Visit Diagnoses Not on filedocumented in this encounter Additional Health Concerns Assessment Noted Time PHQ-9 Depression Total Score: 0 08/25/19 23 1:48 PM EST documented as of this encounter Care Teams Parcel Wrapper Relationship Specialty Start Date End Date Wanda Bonilla ANP [address] [place] [address] PCP - General Family Medicine 09/03/20 Rajni García, RN [address] [place] [address] Lens Grinder RoughRetail Visual Merchandiser 09/18/24 12/15/24 April Michele MD [address] [facility] [address] [place] [address] Referring Physician Infectious Diseases 10/09/24 Lee Hubbard MD [address] [place] [address] Urology 10/09/24 Rajni García, TIM [address] [place] [address] Registered Nurse Family Medicine 05/13/25 La Haddad 05/13/25 [facility] cardiology 11/12/23 documented as of this encounter
--- OUTSIDE RECORDS SUMMARY | 2025-06-19 10:49 | XMS_ITS | Encounter Summary ---
Author Organization [employer] Address [address] 7t [place] [address] Care Team Providers Care Silhouette Artist Name Role Phone Wanda Bonilla Primary Care Provider [phone] April Michele MD Unavailable [phone] Lee Hubbard MD Unavailable [phone] Rajni García RN Unavailable La Haddad Unavailable Encounter Details Date Type Department Care Team (Late st Contact Info) Description 06/18/2025 Plan of Care Documentation [facility] MEDICINE [address] [place] [address] Social History Tobacco Use Types Packs/Day Years [...] Not at all 06/18/2025 10:20 AM Rajni Gonzales, TIM * Trouble concentrating on things, such as [...] Assessment Author Somewhat difficult 06/18/2025 10:20 AM Rajni Mckeon RN documented as of this encounter Plan of Treatment Upcoming Encounters Date Type Department Care Team (Late st Contact Info) Description 07/02/2025 1:00 PM EST Office Visit [facility] MEDICINE [address] [place] [address] Wanda Bonilla ANP [address] [place] [address] 09/08/2025 1:30 PM EST Office Visit [facility] OPTOMETRY [address] [place] [address] Tyler, Smiley, OD [address] [place] [address] documented as of this encounter Visit Diagnoses Not on filedocumented in this encounter Additional Health Concerns Assessment Noted Time PHQ-9 Depression Total Score: 9 06/18/20 25 10:20 AM EST documented as of this encounter Care Teams Silhouette Artist Relationship Specialty Start Date End Date Wanda Bonilla ANP [address] [place] [address] PCP - General Family Medicine 09/03/20 April Michele MD [address] [facility] [address] [place] [address] Referring Physician Infectious Diseases 10/09/24 Lee Hubbard MD [address] [place] [address] Urology 10/09/24 Rajni García, RN [address] [place] [address] Registered Nurse Family Medicine 05/13/25 La Haddad 05/13/25 [facility] cardiology 11/12/23 documented as of this encounter
--- OUTSIDE RECORDS SUMMARY | 2025-06-19 10:49 | XMS_ITS | Clinical Summary ---
Author Organization [address] [facility] Address [address] [place] [address] Phone Care Team Providers Care Supervisor Shearing Name Role Phone Regina Su ADRIANNE Primary [...] topic Insurance MEDICAID - [place] Care Teams Supervisor Shearing Relationship Specialty Start Date End Date Regina Su FNP [address] [place] [address] PCP - General Nurse Practitioner 07/11/24
--- OUTSIDE RECORDS SUMMARY | 2025-06-19 10:49 | XMS_ITS | Encounter Summary ---
Author Organization [employer] Address [address] 7t [place] [address] Care Team Providers Care Campaign Coordinator Name Role Phone Wanda Bonilla Primary Care Provider [phone] April Michele MD Unavailable [phone] Lee Hubbard MD Unavailable [phone] Rajni García RN Unavailable [phone] La Haddad Unavailable Encounter Details Date Type Department Care Team (Late st Contact Info) Description 06/18/2025 Plan of Care Documentation [facility] MEDICINE [address] [place] [address] Social History Tobacco Use Types Packs/Day Years [...] 1:00 PM EST Office Visit [facility] MEDICINE [address] [place] [address] Wanda Bonilla ANP [address] [place] [address] 09/08/2025 1:30 PM EST Office Visit [facility] OPTOMETRY [address] [place] [address] Tyler, Smiley, OD [address] [place] [address] documented as of this encounter Visit Diagnoses Not on filedocumented in this encounter Additional Health Concerns Assessment Noted Time PHQ-9 Depression Total Score: 9 06/18/20 25 10:20 AM EST documented as of this encounter Care Teams Campaign Coordinator Relationship Specialty Start Date End Date Wanda Bonilla ANP [address] [place] [address] PCP - General Family Medicine 09/03/20 April Michele MD [address] [facility] [address] [place] [address] Referring Physician Infectious Diseases 10/09/24 Lee Hubbard MD [address] [place] [address] Urology 10/09/24 Rajni García, RN [address] [place] [address] Registered Nurse Family Medicine 05/13/25 La Haddad 05/13/25 [facility] cardiology 11/12/23 documented as of this encounter
--- OUTSIDE RECORDS SUMMARY | 2025-06-19 10:49 | XMS_ITS | Encounter Summary ---
Author Organization [employer] Address [address] [facility] 7t h Floor [place] [phone] Care Team Providers Care Award Machine Operator Name Role Phone Wanda Bonilla Primary Care Provider April Michele MD Unavailable [phone] Lee Hubbard MD Unavailable [phone] Rajni García RN Unavailable [phone] La Haddad Unavailable Reason for Visit * Reason Comments Care Coordination CM/CHW appointment charles gordon Encounter Details Date Type Department Care Team (Latest Contact Info) Description 06/17/2025 Patient Outreach [facility] MEDICINE [address] [place], [place] [phone] Wanda Bonilla ANP [address] [place] [address] Care Coordination (CM/CHW appointment reminder) Social History Tobacco Use Types Packs/Day [...] encounter Progress Notes * La Haddad - 06/17/2025 2:19 PM EST CHW La Haddad placed outbound call to patient introducing herself from [facility] CM Department, in regards to remind patient of Adult Complex Care program initial assessment appt omo06/18/25 @ 10AM via telephone CM Rajni García RN. Patient's name and was confirmed. Patient is aware and confirmed will be available for call and has no barriers on attending call. Patient verbalized understanding and agrees with plan. documented in this encounter Plan of Treatment Upcoming Encounters Date Type Department Care Team ([facility] st Contact Info) Description 07/02/2025 1:00 PM EST Office Visit [facility] MEDICINE [address] [place] [address] Wanda Bonilla ANP [address] [place] [address] 09/08/2025 1:30 PM EST Office Visit [facility] OPTOMETRY [address] [place] [address] Smiley Scott, OD [address] [place] [address] documented as of this encounter Visit Diagnoses Not on filedocumented in this encounter Additional Health Concerns Assessment Noted Time PHQ-9 Depression Total Score: 5 11/23/19 24 1:33 PM EDT documented as of this encounter Care Teams Award Machine Operator Relationship Specialty Start Date End Date Wanda Bonilla ANP [address] [place] [address] PCP - General Family Medicine 09/03/20 April Michele MD [address] [facility] [address] [place] [address] Referring Physician Infectious Diseases 10/09/24 Lee Hubbard MD [address] [place] [address] Urology 10/09/24 Rajni García, TIM [address] [place] [address] Registered Nurse Family Medicine 05/13/25 La Haddad 05/13/25 [facility] cardiology 11/12/23 documented as of this encounter
== END 2025-06-19 10:37 | disposition home or self-care (01) ==
LOC: HO.PMC 10:13
PROVIDERS: PCP Nurse Practitioner Primary Care; Visit Provider Nurse Practitioner Family
DX: R51.9 Headache, unspecified (principal); G89.29 Other chronic pain; M47.812 Spondylosis without myelopathy or radiculopathy, cervical region; M50.30 Other cervical disc degeneration, unspecified cervical region; M25.511 Pain in right shoulder; M25.512 Pain in left shoulder
CPT/HCPCS: 99213

== ENCOUNTER → 2025-06-19 10:12 | Outpatient (BNVA) | payer MEDICAID, SELFPAY | PROVIDERS: PCP Nurse Practitioner Primary Care; Visit Provider Nurse Practitioner Family | DX: M25.511 Pain in right shoulder (principal); M25.512 Pain in left shoulder; M50.30 Other cervical disc degeneration, unspecified cervical region; M47.812 Spondylosis without myelopathy or radiculopathy, cervical region; R51.9 Headache, unspecified; G89.29 Other chronic pain | CPT/HCPCS: 99212 ==

== ENCOUNTER 2025-07-09 09:25 | Outpatient (REF) | payer MEDICAID, SELFPAY ==
--- NOTE | ~2025-07-09 | MM_ITS ---
EXAMINATION: MM SCREENING DIGITAL BREAST TOMOSYNTHESIS, BILATERAL CLINICAL INFORMATION: Screening. Asymptomatic. COMPARISON: Comparison made to multiple prior, most recent July 03, 2024, and most remote June 02, 2016. TECHNIQUE: Digital breast tomosynthesis is performed in mediolateral oblique and craniocaudal views along with computer-aided detection (CAD). Synthesized 2D images are generated from the tomosynthesis. FINDINGS: BREAST COMPOSITION: There are scattered areas of fibroglandular density. BILATERAL BREASTS: No significant masses, suspicious calcifications or other abnormalities are seen in either breast. MM/MM tomosynthesis screening BI IMPRESSION: BILATERAL BREASTS: Negative, no mammographic evidence of malignancy. Normal interval follow-up is recommended in 12 months. ASSESSMENT: BI-RADS: Category 1: Negative RECOMMENDATION: Routine annual mammography screening. FOLLOW-UP: 1 year F/U This examination should not preclude the clinical evaluation of a suspicious palpable abnormality. This patient's information was entered into a reminder system with a target due date for their next mammogram. Electronically signed by: Jeannette Mcgill MD 07/09/2025 07:25 PM [facility]
== END 2025-07-09 09:26 | disposition home or self-care (01) ==
LOC: HO.MAMMO 09:25
PROVIDERS: PCP Nurse Practitioner Primary Care; Visit Provider Nurse Practitioner Primary Care
DX: Z12.31 Encounter for screening mammogram for malignant neoplasm of breast (principal)
CPT/HCPCS: 77063; 77067

== ENCOUNTER → 2025-07-09 09:30 | Outpatient (BNV) | payer MEDICAID, SELFPAY | PROVIDERS: PCP Nurse Practitioner Primary Care; Visit Provider Radiology Body Imaging | DX: Z12.31 Encounter for screening mammogram for malignant neoplasm of breast (principal) | CPT/HCPCS: 77063; 77067 ==